=== PATIENT | male | born 1965 | race Caucasian/White ===

== ENCOUNTER 2018-01-24 05:32 | Emergency (ER) | payer SELFPAY ==
[2018-01-24] MEDS ORDERED: ONDANSETRON 4 MG/2 ML VIAL ONE ×2 (05:40→06:08)
[2018-01-24] MEDS ORDERED: NA CHLORIDE 0.9% 250 ML ONE ×2 (05:40→06:21)
[2018-01-24] MEDS ORDERED: NA CHLORIDE 0.9% 1,000 ML ONE ×2 (05:40→06:52)
[2018-01-24] MEDS ORDERED: PANTOPRAZOLE 40 MG INJ ONE (05:40)
[2018-01-24] MEDS ORDERED: VITAMIN K (ADULT) 10 MG/ML ONE (05:41)
[2018-01-24 05:55] LABS: Absolute Lymphocytes (CBC) 1.1 K/uL (0.7-4.9); Absolute Monocytes 0.2 K/uL (0.1-1.3); Absolute Neutrophil 2.4 K/uL (1.8-8.0); Basophils % 0.8 % (0-1.3); Eosinophils % 0.6 % (0-4.4); Hematocrit 27.5 % (39.6-49.0); Lymphocytes % 28.2 % (15.3-44.8); MCH 34.9 pg (27.0-35.0); MCV 101.5 fL (80-100); MPV 8.8 fL (7.6-11.3); Monocytes % 6.1 % (3.3-12.3); RBC Red Blood Cell Count 2.71 M/uL (4.33-5.43)
[2018-01-24] MEDS ORDERED: NA CHLORIDE 0.9% 500 ML ONE (05:57)
[2018-01-24] MEDS ORDERED: OCTREOTIDE ACETATE 500 MCG/ML ONE (05:57)
--- NOTE | 2018-01-24 05:57 | ER ---
Nurse's Notes [facility] Name: Wesley Taylor Age: 52 yrs Sex: Male : 1965 Arrival Date: 01/24/2018 Time: 05:40 Bed 3 Private MD: Diagnosis: Gastrointestinal hemorrhage, unspecified;Alcohol abuse with intoxication;Alcoholic cirrhosis of liver;Hypotension;Anemia, unspecified Presentation: 01/24 05:40 Presenting complaint: EMS states: they were toned out for report of pt vomiting blood bb and bleeding from the rectum pt has hx of cirrhosis and was drinking last night. Transition of care: patient was not received from another setting of care. Onset of symptoms was January 24, 2018. Risk Assessment: Do you want to hurt yourself or someone else? Patient reports no desire to harm self or others. Initial Sepsis Screen: Does the patient meet any 2 criteria? No. Patient's initial sepsis screen is negative. Does the patient have a suspected source of infection? No. Patient's initial sepsis screen is negative. Care prior to arrival: Medication(s) given: Normal saline infusion, 500 mL, IV initiated. 20 GA, antecubital area. 05:40 Method Of Arrival: EMS: [facility] bb 05:40 Acuity: MERNA 2 bb Triage Assessment: 06:18 General: Appears pale. Behavior is cooperative, quiet. ak1 Historical: - Allergies: 05:51 No Known Allergies; bb - PMHx: 05:51 Alcoholism; Cirrhosis; esophageal varices; GI Bleed; bb - Immunization history:: Adult Immunizations unknown. - Social history:: Smoking status: Patient uses alcohol, patient/guardian reports chronic longstanding heavy alcohol consumption. patient/guardian reports recent binge of alcohol consumption. - Family history:: not pertinent. - Ebola Screening: : No symptoms or risks identified at this time. Screenin:14 Abuse screen: Denies threats or abuse. Denies injuries from another. Nutritional ak1 screening: No deficits noted. Tuberculosis screening: No symptoms or risk factors identified. Fall Risk None identified. Assessment: 06:16 General: Appears distressed, Behavior is drowsy. Pain: Complains of pain in abdomen jd3 Quality of pain is described as sharp. Neuro: Level of Consciousness is awake, lethargic, Oriented to person, place, time. Cardiovascular: Heart tones S1 S2 present Capillary refill < 3 seconds Patient's skin is warm and dry. Rhythm is sinus tachycardia. Respiratory: Airway is patent Respiratory effort is even, unlabored, Respiratory pattern is regular, symmetrical, Breath sounds are clear bilaterally. GI: Abdomen is round Reports bloody vomit and stool. : No signs and/or symptoms were reported regarding the genitourinary system. EENT: No signs and/or symptoms were reported regarding the EENT system. Derm: Skin is intact, Skin is dry, Skin is pale, Skin temperature is cool. Musculoskeletal: Circulation, motion, and sensation intact. Range of motion: intact in all extremities. 06:53 Reassessment: Patient appears in no apparent distress at this time. Patient and/or jd3 family updated on plan of care and expected duration. Pain level reassessed. Patient is alert, oriented x 3, equal unlabored respirations, skin warm/dry/pink. Patient states symptoms have improved. Neuro: Level of Consciousness is awake, alert, obeys commands, Oriented to person, place, time, situation. 07:02 Reassessment: Patient appears in no apparent distress at this time. No changes from [facility] previously documented assessment. Patient and/or family updated on plan of care and expected duration. Pain level reassessed. Patient is alert, oriented x 3, equal unlabored respirations, skin warm/dry/pink. report given to EMS. Vital Signs: 05:45 BP 88 / 69; Pulse 109; Resp 16 S; Temp 96(TE); Pulse Ox 98% on R/A; Weight 86.18 kg bb (R); Height 6 ft. 2 in. (187.96 cm) (R); 05:45 BP 92 / 66; Pulse 111; Resp 20; Temp 93.6(C); Pulse Ox 100% on R/A; ak1 05:50 BP 85 / 53; Pulse 107; Resp 16; Temp 95.9(C); Pulse Ox 97% on R/A; ak1 05:55 BP 76 / 48; Pulse 104; Resp 24; Temp 96.6(C); Pulse Ox 100% on R/A; ak1 06:00 BP 70 / 52; Pulse 108; Resp 23; Temp 97.4(C); Pulse Ox 100% on R/A; ak1 06:05 BP 42 / 31; Pulse 109; Resp 17; Temp 97.7(C); Pulse Ox 100% on R/A; ak1 06:10 BP 79 / 54; Pulse 101; Resp 16; Temp 97.8(C); Pulse Ox 97% on R/A; ak1 06:20 BP 79 / 56; Pulse 103; Resp 12; Temp 97.9(C); Pulse Ox 100% ; ak1 06:40 BP 116 / 84; Pulse 117; Resp 20; Temp 97.7(C); Pulse Ox 100% on R/A; ak1 06:51 BP 110 / 68; Pulse 107; Resp 17 S; Temp 97.6(C); Pulse Ox 100% on R/A; jd3 05:45 Body Mass Index 24.39 (86.18 kg, 187.96 cm) bb ED Course: 05:40 Patient arrived in ED. cem 05:40 Ralph Dela Cruz MD is Attending Physician. cem 05:45 Arm band placed on Patient placed in an exam room, on a stretcher, on public health policy analyst, bb on pulse oximetry. EKG completed in triage. Results shown to MD. 05:51 Triage completed. bb 06:12 Assisted provider with central line placement. Set up central line tray. in right ak1 femoral. Line placed by Ralph Dela Cruz MD Dressed with Tegaderm, Blood was collected. Patient tolerated well. Inserted saline lock: 20 gauge in right antecubital area, using aseptic technique. ,using aseptic technique. placed by King Nassar RN Blood collected. 06:15 Dawson cath inserted, using sterile technique, 16 Fr., by senior architect, balloon inflated, to ak1 gravity drainage, urine specimen collected. Patient tolerated well. Inserted saline lock: 20 gauge in left antecubital area, using aseptic technique. ,using aseptic technique. placed by Portia Ryan RN. 06:16 Bob Sheets RN is Primary Nurse. jd3 06:19 X-ray completed. Portable x-ray completed in exam room. Patient tolerated procedure kw well. 06:20 XRAY Chest (1 view) In Process Unspecified. EDMS 06:20 Patient has correct armband on for positive identification. Placed in gown. Bed in low jd3 position. Call light in reach. Side rails up X2. 06:20 professor of surgery on. Pulse ox on. NIBP on. bear hugger applied. ak1 06:43 Chest Abd Pelvis Wo Con In Process Unspecified. EDMS 06:44 CT completed. Patient tolerated procedure well. Patient moved to CT via stretcher. eh Patient moved back from CT. 06:45 Patient transferred, IV remains in place. ak1 Administered Medications: 05:40 Drug: NS 0.9% 1000 ml Route: IV; Rate: 1 bolus; Site: left antecubital; bb 07:03 Follow up: Response: No adverse reaction; IV Status: Completed infusion; IV Intake: jd3 1000ml 05:45 Drug: ProTONIX 8 mg/hr Route: IV; Rate: 25 ml/hr; Site: right antecubital; bb 06:28 Follow up: IV Status: Infusion continued upon transfer bb 05:46 Drug: Zofran 4 mg Route: IVP; Site: right antecubital; bb 06:27 Follow up: Response: No adverse reaction bb 05:46 Drug: ProTONIX 80 mg Route: IVP; Site: right antecubital; bb 06:30 Follow up: Response: No adverse reaction bb 05:54 Drug: Vitamin K1 10 mg Route: Sub-Q; Site: right upper arm; bb 06:26 Follow up: Response: No adverse reaction bb 06:00 Drug: SandoSTATIN 100 mcg Route: IV; Rate: per protocol; Site: right antecubital; ak1 06:29 Follow up: IV Status: Infusion continued upon transfer bb 06:00 Drug: SandoSTATIN 50 mcg Route: IV; Rate: per protocol; Site: right antecubital; ak1 06:03 Follow up: IV Status: Completed infusion bb 06:00 Drug: Rocephin - (cefTRIAXone) 1 grams Route: IVPB; Infused Over: 30 mins; Site: left ak1 antecubital; 06:08 Follow up: IV Status: Completed infusion; IV Intake: 10ml bb 06:07 Drug: Zofran 4 mg Route: IVP; Site: right antecubital; ak1 06:30 Follow up: Response: Nausea is decreased bb 06:09 Drug: Thiamine 100 mg Route: IV; Rate: bolus; Site: left antecubital; ak1 06:12 Follow up: IV Status: Completed infusion; IV Intake: 100ml bb 06:25 Drug: Benadryl 25 mg {Note: right femoral central line.} Route: IVP; Site: Other; bb 06:32 Follow up: Response: No adverse reaction bb 06:25 Drug: Tylenol Suppository 650 mg Route: OR; bb 06:31 Follow up: Response: No adverse reaction bb 06:48 Drug: NS 0.9% 1000 ml {Note: right femoral central line.} Route: IV; Rate: 125 ml/hr; bb Site: Other; 06:48 Follow up: IV Status: Infusion continued upon transfer bb 06:48 Follow up: IV Status: Infusion continued upon transfer ak1 Intake: 06:08 IV: 10ml; Total: 10ml. bb 06:12 IV: 100ml; Total: 110ml. bb 07:03 IV: 1000ml; Total: 1110ml. jd3 Outcome: 05:56 ER care complete, transfer ordered by MD. priest 06:46 Transferred by ground EMS to [facility], Transfer form completed. ak1 X-rays sent w/ patient. Note: Report called to Liz Oakes RN [place] [id number] Bed 1 06:46 critical 06:46 Instructed on the need for transfer. 07:04 Patient left the ED. jd3 Signatures: Dispatcher [employer] EDMS Ralph Dela Cruz MD MD cha Hagler, Ervin eh Ballard, Brenda, RN RN bb Lili Berman Amber, RN RN ak1 Bob Sheets RN RN jd3 Corrections: (The following items were deleted from the chart) 06:54 06:53 Reassessment: Patient appears in no apparent distress at this time. Patient jd3 states symptoms have improved. jd3
--- NOTE | 2018-01-24 05:57 | EDPHYS ---
Physician Documentation [facility] Name: Wesley Taylor Age: 52 yrs Sex: Male : 1965 Arrival Date: 01/24/2018 Time: 05:40 Bed 3 Private MD: ED Physician Ralph Dela Cruz HPI: 01/24 05:47 This 52 yrs old Male presents to ER via Unassigned with complaints of upper cem gi bleed, alcoholic and cirrhosis. 05:47 The patient presents with abdominal pain. Onset: The symptoms/episode began/occurred cem this morning. The patient presents to the emergency department vomiting blood, a large amount, with rectal bleeding, brb without bm. Onset: The symptoms/episode began/occurred just prior to arrival. Abdominal pain: located in the right upper quadrant, left upper quadrant, right lower quadrant and left lower quadrant. Modifying factors: The symptoms are alleviated by nothing, the symptoms are aggravated by alcohol. hypotensive, vomiting red blood. Associated signs and symptoms: Pertinent positives: dizziness at rest, near-syncope, vomiting. Onset: The symptoms/episode began/occurred. Historical: - Allergies: 05:51 No Known Allergies; bb - PMHx: 05:51 Alcoholism; Cirrhosis; esophageal varices; GI Bleed; bb - Immunization history:: Adult Immunizations unknown. - Social history:: Smoking status: Patient uses alcohol, patient/guardian reports chronic longstanding heavy alcohol consumption. patient/guardian reports recent binge of alcohol consumption. - Family history:: not pertinent. - Ebola Screening: : No symptoms or risks identified at this time. ROS: 05:47 Eyes: Negative for injury, pain, redness, and discharge, ENT: Negative for injury, cem pain, and discharge, Neck: Negative for injury, pain, and swelling, Respiratory: Negative for shortness of breath, cough, wheezing, and pleuritic chest pain, Back: Negative for injury and pain, : Negative for injury, bleeding, discharge, and swelling, MS/Extremity: Negative for injury and deformity, Neuro: Negative for headache, weakness, numbness, tingling, and seizure, Psych: Negative for depression, anxiety, suicide ideation, homicidal ideation, and hallucinations, Allergy/Immunology: Negative for hives, rash, and allergies, Endocrine: Negative for neck swelling, polydipsia, polyuria, polyphagia, and marked weight changes, Hematologic/Lymphatic: Negative for swollen nodes, abnormal bleeding, and unusual bruising. 05:47 Constitutional: Positive for fatigue, malaise. 05:47 Eyes: Positive for sunken appearance. 05:47 ENT: 05:47 Cardiovascular: Positive for palpitations. 05:47 Respiratory: Positive for cough, shortness of breath. 05:47 Abdomen/GI: Positive for abdominal pain, nausea and vomiting, nausea, vomiting, abdominal cramps, rectal bleeding, red blood per rectum. Exam: 05:47 Head/Face: Normocephalic, atraumatic. ENT: Nares patent. No nasal discharge, no cem septal abnormalities noted. Tympanic membranes are normal and external auditory canals are clear. Oropharynx with no redness, swelling, or masses, exudates, or evidence of obstruction, uvula midline. Mucous membranes moist. Neck: Trachea midline, no thyromegaly or masses palpated, and no cervical lymphadenopathy. Supple, full range of motion without nuchal rigidity, or vertebral point tenderness. No Meningismus. Chest/axilla: Normal chest wall appearance and motion. Nontender with no deformity. No lesions are appreciated. Back: No spinal tenderness. No costovertebral tenderness. Full range of motion. MS/ Extremity: Pulses equal, no cyanosis. Neurovascular intact. Full, normal range of motion. Neuro: Awake and alert, GCS 15, oriented to person, place, time, and situation. Cranial nerves II-XII grossly intact. Motor strength 5/5 in all extremities. Sensory grossly intact. Cerebellar exam normal. Normal gait. Psych: Awake, alert, with orientation to person, place and time. Behavior, mood, and affect are within normal limits. 05:47 Constitutional: The patient appears lethargic, in obvious distress, moderately distressed. 05:47 Eyes: Conjunctiva: pale. 05:47 Cardiovascular: Rate: tachycardic, Rhythm: regular, Pulses: Pulses are 4+ in bilateral radial, brachial, femoral, popliteal, posterior tibial and and dorsalis pedis arteries.. Heart sounds: normal, Edema: is not appreciated, JVD: is not appreciated. 05:47 Abdomen/GI: Inspection: abdomen appears normal, Bowel sounds: normal, Palpation: mild abdominal tenderness, in all quadrants. 05:47 Skin: Appearance: Color: pale. Vital Signs: 05:45 BP 88 / 69; Pulse 109; Resp 16 S; Temp 96(TE); Pulse Ox 98% on R/A; Weight 86.18 kg bb (R); Height 6 ft. 2 in. (187.96 cm) (R); 05:45 BP 92 / 66; Pulse 111; Resp 20; Temp 93.6(C); Pulse Ox 100% on R/A; ak1 05:50 BP 85 / 53; Pulse 107; Resp 16; Temp 95.9(C); Pulse Ox 97% on R/A; ak1 05:55 BP 76 / 48; Pulse 104; Resp 24; Temp 96.6(C); Pulse Ox 100% on R/A; ak1 06:00 BP 70 / 52; Pulse 108; Resp 23; Temp 97.4(C); Pulse Ox 100% on R/A; ak1 06:05 BP 42 / 31; Pulse 109; Resp 17; Temp 97.7(C); Pulse Ox 100% on R/A; ak1 06:10 BP 79 / 54; Pulse 101; Resp 16; Temp 97.8(C); Pulse Ox 97% on R/A; ak1 06:20 BP 79 / 56; Pulse 103; Resp 12; Temp 97.9(C); Pulse Ox 100% ; ak1 06:40 BP 116 / 84; Pulse 117; Resp 20; Temp 97.7(C); Pulse Ox 100% on R/A; ak1 06:51 BP 110 / 68; Pulse 107; Resp 17 S; Temp 97.6(C); Pulse Ox 100% on R/A; jd3 05:45 Body Mass Index 24.39 (86.18 kg, 187.96 cm) Procedures: 06:20 Central Line: the site was prepped with Betadine, a triple lumen catheter was inserted, cem in the right in 1 attempts. placement was verified, by blood return, the site was dressed with using sterile technique, the patient tolerated the procedure, well. MDM: 05:40 Patient medically screened. [facility] 05:47 Data reviewed: vital signs, nurses notes, lab test result(s), EKG, radiologic studies, [facility] CT scan, plain films. 01/24 05:46 Order name: Basic Metabolic Panel [facility] 01/24 05:46 Order name: CBC with Diff; Complete Time: 06:13 [facility] 01/24 05:46 Order name: Ckmb; Complete Time: 06:13 [facility] 01/24 05:46 Order name: CPK; Complete Time: 06:13 [facility] 01/24 05:46 Order name: LFT's; Complete Time: 06:13 [facility] 01/24 05:46 Order name: Magnesium; Complete Time: 06:13 [facility] 01/24 05:46 Order name: NT PRO-BNP; Complete Time: 06:13 [facility] 01/24 05:46 Order name: Troponin (emerg Dept Use Only); Complete Time: 06:13 [facility] 01/24 05:46 Order name: Lipase; Complete Time: 06:13 [facility] 01/24 05:46 Order name: AMMONIA [facility] 01/24 05:46 Order name: Type And Screen [facility] 01/24 05:46 Order name: XRAY Chest (1 view) [facility] 01/24 05:46 Order name: Basic Metabolic Panel; Complete Time: 06:13 [facility] 01/24 05:48 Order name: ETOH Level; Complete Time: 06:19 sd 01/24 05:48 Order name: UDS; Complete Time: 06:13 sd 01/24 06:03 Order name: Urine Dipstick--Ancillary (enter results) sd 01/24 06:32 Order name: Chest Abd Pelvis Wo Con [facility] 01/24 05:46 Order name: EKG; Complete Time: 05:47 [facility] 01/24 05:46 Order name: Cardiac monitoring; Complete Time: 06:32 [facility] 01/24 05:46 Order name: EKG - Nurse/Tech; Complete Time: 06:11 [facility] 01/24 05:46 Order name: IV Saline Lock; Complete Time: 06:11 [facility] 01/24 05:46 Order name: Labs collected and sent; Complete Time: 06:11 [facility] 01/24 05:46 Order name: O2 Per Protocol; Complete Time: 06:11 [facility] 01/24 05:46 Order name: O2 Sat Monitoring; Complete Time: 06:11 [facility] 01/24 05:46 Order name: Urine Dipstick-Ancillary (obtain specimen); Complete Time: 06:11 [facility] 01/24 05:46 Order name: Transfuse; Complete Time: 06:11 [facility] 01/24 05:46 Order name: NPO; Complete Time: 06:10 [facility] Administered Medications: 05:40 Drug: NS 0.9% 1000 ml Route: IV; Rate: 1 bolus; Site: left antecubital; bb 07:03 Follow up: Response: No adverse reaction; IV Status: Completed infusion; IV Intake: jd3 1000ml 05:45 Drug: ProTONIX 8 mg/hr Route: IV; Rate: 25 ml/hr; Site: right antecubital; bb 06:28 Follow up: IV Status: Infusion continued upon transfer bb 05:46 Drug: Zofran 4 mg Route: IVP; Site: right antecubital; bb 06:27 Follow up: Response: No adverse reaction bb 05:46 Drug: ProTONIX 80 mg Route: IVP; Site: right antecubital; bb 06:30 Follow up: Response: No adverse reaction bb 05:54 Drug: Vitamin K1 10 mg Route: Sub-Q; Site: right upper arm; bb 06:26 Follow up: Response: No adverse reaction bb 06:00 Drug: SandoSTATIN 100 mcg Route: IV; Rate: per protocol; Site: right antecubital; ak1 06:29 Follow up: IV Status: Infusion continued upon transfer bb 06:00 Drug: SandoSTATIN 50 mcg Route: IV; Rate: per protocol; Site: right antecubital; ak1 06:03 Follow up: IV Status: Completed infusion bb 06:00 Drug: Rocephin - (cefTRIAXone) 1 grams Route: IVPB; Infused Over: 30 mins; Site: left ak1 antecubital; 06:08 Follow up: IV Status: Completed infusion; IV Intake: 10ml bb 06:07 Drug: Zofran 4 mg Route: IVP; Site: right antecubital; ak1 06:30 Follow up: Response: Nausea is decreased bb 06:09 Drug: Thiamine 100 mg Route: IV; Rate: bolus; Site: left antecubital; ak1 06:12 Follow up: IV Status: Completed infusion; IV Intake: 100ml bb 06:25 Drug: Benadryl 25 mg {Note: right femoral central line.} Route: IVP; Site: Other; bb 06:32 Follow up: Response: No adverse reaction bb 06:25 Drug: Tylenol Suppository 650 mg Route: NE; bb 06:31 Follow up: Response: No adverse reaction bb 06:48 Drug: NS 0.9% 1000 ml {Note: right femoral central line.} Route: IV; Rate: 125 ml/hr; gume Site: Other; 06:48 Follow up: IV Status: Infusion continued upon transfer bb 06:48 Follow up: IV Status: Infusion continued upon transfer ak1 Disposition: 01/24/18 05:56 Transfer ordered to [facility]. Diagnosis are Gastrointestinal hemorrhage, unspecified, Alcohol abuse with intoxication, Alcoholic cirrhosis of liver, Hypotension, Anemia, unspecified. - Reason for transfer: Higher level of care. - Accepting physician is to icu, varices , bleeding , alcoholic. - Condition is Critical. - Problem is new. - Symptoms have improved. Signatures: Dispatcher [employer] EDMS Ralph Dela Cruz MD MD cha Ballard, Brenda RN RN Liz Hopkins RN RN ak1 Bob Sheets RN RN jd3 Corrections: (The following items were deleted from the chart) 06:32 05:52 Chest Abdomen Pelvis W Con+CT.RAD.BRZ ordered. [facility] EDAK 07:04 05:56 01/24/2018 05:56 Transfer ordered to [facility]. Diagnosis is jd3 Gastrointestinal hemorrhage, unspecified; Alcohol abuse with intoxication; Alcoholic cirrhosis of liver; Hypotension; Anemia, unspecified. Reason for transfer: Higher level of care. Accepting physician is to icu, varices , bleeding , alcoholic. Condition is Critical. Problem is new. Symptoms have improved. cem
[2018-01-24] MEDS ORDERED: THIAMINE 200 MG/2 ML INJ ONE (06:03)
[2018-01-24] MEDS ORDERED: CEFTRIAXONE/SWI 1gm 1 GM/10 ML SYR ONE (06:04)
[2018-01-24 06:12] LABS: Barbiturates NEGATIVE (NEGATIVE); Benzodiazepines NEGATIVE (NEGATIVE); Cocaine NEGATIVE (NEGATIVE); METHAMPHETAM NEGATIVE (NEGATIVE); Methadone NEGATIVE (NEGATIVE); Opiates NEGATIVE (NEGATIVE); Phencyclidine NEGATIVE (NEGATIVE); THC Cannibis NEGATIVE (NEGATIVE)
[2018-01-24 06:13] LABS: Bilirubin Direct 1.7 mg/dL (0-0.2); Bilirubin Total 2.3 mg/dL (0.2-1.0); Magnesium 1.9 mg/dL (1.8-2.4); Potassium 4.1 mmol/L (3.5-5.1); Protein, Total 5.7 g/dL (6.4-8.2); Troponin (Emerg Dept Use Only) 0.03 ng/mL (0.0-0.045)
[2018-01-24] MEDS ORDERED: ACETAMINOPHEN 650MG/RECT SUPP PR ONE (06:20)
[2018-01-24] MEDS ORDERED: DIPHENHYDRAMINE 50 MG/ML VIAL ONE (06:25)
[2018-01-24 08:42] LABS: Urine Blood NEGATIVE (NEG); Urine Glucose NEGATIVE (NEG); Urine Protein NEGATIVE (NEG); Urine Specific Gravity 1.025 (1.005-1.030); Urine pH 5.5 (5.0-7.0)
--- NOTE | 2018-01-24 09:12 | RAD REPORT ---
EXAM DESCRIPTION: CT - Chest Abd Pelvis Wo Con - 01/24/2018 6:43 am CLINICAL HISTORY: Hematochezia/hemoptysis COMPARISON: CT abdomen 2017 TECHNIQUE: Computed axial tomography of the chest, abdomen and pelvis was obtained. Oral contrast wa s not given. IV contrast was not requested. All CT scans are performed using dose optimization technique as appropriate and may include automated exposure control or mA/KV adjustment according to patient size. FINDINGS: The evaluation of mediastinum, bowel, shakir, vessels and solid organs is limited secondary to the lack of IV contrast administration No mediastinal or hilar lymphadenopathy is seen. A pleural effusion is not present. A pericardial effusion is not seen. The lungs are clear. The wall of the distal esophagus is thickened. Paraesophageal varices are present. A cirrhotic liver is present with fatty infiltration. , The adrenals, spleen and kidneys appear unremarkable. Mild stranding is present within the peripancreatic fat. The pancreas is normal size There is no evidence of diverticulitis. The appendix is normal. A Dawson catheter is present within the bladder. IMPRESSION: Thickening of the wall of the distal esophagus may indicate esophagitis Esophageal varices Cirrhosis with fatty infiltration of the liver Mild stranding within the peripancreatic fat may indicate a mild pancreatitis
--- NOTE | 2018-01-24 09:20 | RAD REPORT ---
EXAM DESCRIPTION: Jame Single View01/24/2018 6:22 am CLINICAL HISTORY: Chest pain COMPARISON: 2017 FINDINGS: The lungs appear clear of acute infiltrate. The heart is normal size IMPRESSION: No acute abnormalities displayed
--- NOTE | 2018-01-24 11:04 | EKG ---
Test Date: 2018-01-24 Test Time: 05:35:24 Culinary Director: MAGY MEASUREMENT RESULTS: Intervals: Rate: 107 LA: 134 QRSD: 98 QT: 346 QTc: 461 [place]: P: 70 LA: 134 QRS: 66 T: 56 INTERPRETIVE STATEMENTS: Sinus tachycardia Possible Left atrial enlargement Borderline ECG Compared to ECG 02/15/2017 09:32:36 No significant changes Electronically Signed On 01-24-18 11:03:34 CDT by Simone Garcia
== END 2018-01-24 07:04 | disposition short-term general hospital (02) ==
LOC: ER 05:32
PROC: 06HM33Z Insertion of Infusion Device into Right Femoral Vein, Percutaneous Approach (ICD-10-PCS; principal; 2018-01-24)
PROC: 30233N1 Transfusion of Nonautologous Red Blood Cells into Peripheral Vein, Percutaneous Approach (ICD-10-PCS; 2018-01-24)
DX: K70.30 Alcoholic cirrhosis of liver without ascites (principal); F10.229 Alcohol dependence with intoxication, unspecified; I95.9 Hypotension, unspecified; D64.9 Anemia, unspecified
CPT/HCPCS: 36415; 51702; 71045; 71250; 74176; 80048; 80076; 80307; 80320; 81003; 82140; 82550; 82553; 83690; 83735; 83880; 84484; 85025; 86850; 86870; 86900; 86901; 93005; 96361; 96365; 96368; 96372; 96375; 99285; C9113; J0696; J2354; J2405; J3411; J3430; J7030

== ENCOUNTER 2018-12-31 11:37 | Emergency (ER) | payer OTHER, SELFPAY ==
--- OUTSIDE RECORDS SUMMARY | 2018-12-31 11:47 | XMS REPORT ---
:1965 Author Organization [facility] Address [address] [place] [id number] Care Team Providers Name Role Phone MICK RAHMAN Unavailable Unavailable Problems This patient has no known problems. Allergies, Adverse Reactions, Alerts This patient has no known allergies or adverse reactions. Medications This patient has no known medications. Results Test Description Test Time Test Comments Text Results Atomic Results Result Comments MISCELLANEOUS LAB ORDER 2018-02-07 10:33:00 Test Item Value Reference Range Comments SCAN RESULT (test qxnz=[id number]) CBC W/PLT COUNT & AUTO [id number] 09:42:00 Test Item Value Reference Range Comments WHITE BLOOD CELL COUNT (BEAKER) (test wwrp=979) 21.3 K/ L 3.5-10.5 RED BLOOD CELL COUNT (BEAKER) (test loin=963) 2.38 M/ L 4.63-6.08 HEMOGLOBIN (BEAKER) (test chlx=350) 7.7 GM/DL 13.7-17.5 HEMATOCRIT (BEAKER) (test zqbj=252) 24.1 % 40.1-51.0 MEAN CORPUSCULAR VOLUME (BEAKER) (test ojdn=109) 101.3 fL 79.0-92.2 MEAN CORPUSCULAR HEMOGLOBIN (BEAKER) (test 32.4 pg 25.7-32.2 tqtn=700) MEAN CORPUSCULAR HEMOGLOBIN CONC (BEAKER) (test 32.0 GM/DL 32.3-36.5 uaxl=553) RED CELL DISTRIBUTION WIDTH (BEAKER) (test 26.3 % 11.6-14.4 nxlj=447) PLATELET COUNT (BEAKER) (test dwsw=261) 62 K/CU MM 150-450 MEAN PLATELET VOLUME (BEAKER) (test qnvu=042) 10.8 fL 9.4-12.4 NUCLEATED RED BLOOD CELLS (BEAKER) (test 1 /100 WBC 0-0 ujvp=183) (CELLAVISION MANUAL DIFF)2018-02-07 09:42:00 Test Item Value Reference Range Comments NEUTROPHILS - REL (CELLAVISION)(BEAKER) (test 90 % lwmw=0755) LYMPHOCYTES - REL (CELLAVISION)(BEAKER) (test 3 % wpvs=2510) MONOCYTES - REL (CELLAVISION)(BEAKER) (test 5 % qbcr=3905) METAMYELOCYTES - REL (CELLAVISION)(BEAKER) (test 1 % 0-0 wovp=6068) BANDS - REL (CELLAVISION)(BEAKER) (test 1 % 0-10 cmlm=0522) NEUTROPHILS - ABS (CELLAVISION)(BEAKER) (test 19.17 K/ul 1.78-5.38 wcku=8207) LYMPHOCYTES - ABS (CELLAVISION)(BEAKER) (test 0.64 K/ul 1.32-3.57 tomr=7818) MONOCYTES - ABS (CELLAVISION)(BEAKER) (test 1.07 K/uL 0.30-0.82 yjzv=9299) METAMYELOCYTES - ABS (CELLAVISION)(BEAKER) (test 0.21 K/uL 0.00-0.00 rumd=4936) BANDS - ABS (CELLAVISION)(BEAKER) (test 0.21 K/uL 0.00-0.80 ocja=5314) TOTAL COUNTED (BEAKER) (test yzfa=9691) 100 MANUAL NRBC PER 100 CELLS (BEAKER) (test 3 /100 WBC 0-0 tkvw=1740) WBC MORPHOLOGY (BEAKER) (test qxqh=686) Normal PLT MORPHOLOGY (BEAKER) (test mbmm=998) Normal POLYCHROMATOPHILLIC RBCS(BEAKER) (test rddh=623) 2+ moderate HYPOCHROMIA (BEAKER) (test btbc=220) 1+ few MEG CELLS (BEAKER) (test lmhm=521) 2+ moderate BASOPHILIC STIPPLING (BEAKER) (test zafz=558) Present ARTIFACT (CELLAVISION)(BEAKER) (test gkzm=5556) Present PLATELET CONCENTRATION (CELLAVISION)(BEAKER) Decreased (test tizb=5780) Received comment: User comments: Slide comments:HEPATIC FUNCTION [id number] 08:52:00 Test Item Value Reference Range Comments TOTAL PROTEIN (BEAKER) (test 5.0 gm/dL 6.0-8.3 Specimen slightly hemolyzed zinp=607) ALBUMIN (BEAKER) (test 1.7 g/dL 3.5-5.0 Specimen slightly hemolyzed cetd=3574) BILIRUBIN TOTAL (BEAKER) (test 14.7 mg/dL 0.2-1.2 Specimen slightly hemolyzed ahth=828) BILIRUBIN DIRECT (BEAKER) 9.5 mg/dL 0.1-0.5 Specimen slightly hemolyzed (test gdbq=260) ALKALINE PHOSPHATASE (BEAKER) 240 U/L 40-150 (test ichk=144) AST (SGOT) (BEAKER) (test 220 U/L 5-34 Specimen slightly hemolyzed tpag=015) ALT (SGPT) (BEAKER) (test 178 U/L 6-55 Specimen slightly hemolyzed blla=893) Specimen markedly ictericPOCT-GLUCOSE [id number] 08:27:00 Test Item Value Reference Range Comments POC-GLUCOSE METER (BEAKER) 157 mg/dL 70-110 TESTED AT [address] (test kdmp=2017) [facility] [address] BASIC METABOLIC [id number] 06:53:00 Test Item Value Reference Range Comments SODIUM (BEAKER) (test 132 meq/L 136-145 tvwu=047) POTASSIUM (BEAKER) (test 3.7 meq/L 3.5-5.1 wchm=995) CHLORIDE (BEAKER) (test 104 meq/L 98-107 yixi=153) CO2 (BEAKER) (test 24 meq/L 22-29 evcc=272) BLOOD UREA NITROGEN 25 mg/dL 7-21 (BEAKER) (test xkun=965) CREATININE (BEAKER) (test 0.86 mg/dL 0.57-1.25 mnlu=107) GLUCOSE RANDOM (BEAKER) 100 mg/dL 70-105 (test vags=492) CALCIUM (BEAKER) (test 7.7 mg/dL 8.4-10.2 wnpa=751) EGFR (BEAKER) (test 94 mL/min/1.73 sq m ESTIMATED GFR IS NOT joki=8474) ACCURATE CREATININE CLEARANCE IN PREDICTING GLOMERULAR FILTRATION RATE. ESTIMATED GFR IS NOT APPLICABLE FOR DIALYSIS PATIENTS. Specimen markedly [id number] 06:34:00 Test Item Value Reference Range Comments MAGNESIUM (BEAKER) (test krun=613) 1.4 mg/dL 1.6-2.6 PROTHROMBIN TIME/[id number] 06:32:00 Test Item Value Reference Range Comments PROTIME (BEAKER) (test yoss=212) 24.6 seconds 11.7-14.7 INR (BEAKER) (test oyfd=654) 2.2 <=5.9 RECOMMENDED COUMADIN/WARFARIN INR THERAPY RANGESSTANDARD DOSE: 2.0 - 3.0 Includes: PROPHYLAXIS forvenous thrombosis, systemic embolization; TREATMENT for venous thrombosis and/or pulmonary embolus.HIGH RISK: Target INR is 2.5-3.5 for patients with mechanical heart valves.POCT-GLUCOSE [id number] 22:37:00 Test Item Value Reference Range Comments POC-GLUCOSE METER (BEAKER) 158 mg/dL 70-110 TESTED AT [address] (test ngol=9816) [place] [address] POCT-GLUCOSE [id number] 17:38:00 Test Item Value Reference Range Comments POC-GLUCOSE METER (BEAKER) 176 mg/dL 70-110 TESTED AT [address] (test ykoi=4030) [place] [address] POCT-GLUCOSE [id number] 13:55:00 Test Item Value Reference Range Comments POC-GLUCOSE METER (BEAKER) 144 mg/dL 70-110 TESTED AT [address] (test egfl=2659) [place] [address] RAD, CHEST, 1 VIEW, NON [id number] 11:35:00Reason for exam:->shortness of breathShould this be performed at the bedside?->YesFINAL REPORT CLINICAL HISTORY: shortness of breath TECHNIQUE: 1 view of the chest. COMPARISON: 02/03/2018 IMPRESSION: There is decreased left lung base consolidation and a decreased small left pleural effusion. The right lung is free of infiltrates or significant effusions. The cardiomediastinal silhouette is within normal limits for size. Signed: Sona Sainz MDReport Verified Date/ Time: 02/06/2018 11:35:31 Reading Location: [facility] Radiology Reading Room STOOL CULTURE + SHIGA [id number] 10:55:00 Test Item Value Reference Range Comments CULTURE (BEAKER) (test No Salmonella, Shigella or xmzm=6174) Campylobacter isolated POCT-GLUCOSE [id number] 07:40:00 Test Item Value Reference Range Comments POC-GLUCOSE METER (BEAKER) 136 mg/dL 70-110 TESTED AT [facility] [address] [facility] (test lbxp=2673) [facility] [address] CBC W/PLT COUNT & AUTO [id number] 07:37:00 Test Item Value Reference Range Comments WHITE BLOOD CELL COUNT (BEAKER) (test frrs=541) 22.5 K/ L 3.5-10.5 RED BLOOD CELL COUNT (BEAKER) (test ekur=491) 2.13 M/ L 4.63-6.08 HEMOGLOBIN (BEAKER) (test snui=370) 6.9 GM/DL 13.7-17.5 HEMATOCRIT (BEAKER) (test wggu=981) 21.6 % 40.1-51.0 MEAN CORPUSCULAR VOLUME (BEAKER) (test pwgg=885) 101.4 fL 79.0-92.2 MEAN CORPUSCULAR HEMOGLOBIN (BEAKER) (test 32.4 pg 25.7-32.2 egro=751) MEAN CORPUSCULAR HEMOGLOBIN CONC (BEAKER) (test 31.9 GM/DL 32.3-36.5 jwyj=421) RED CELL DISTRIBUTION WIDTH (BEAKER) (test 26.5 % 11.6-14.4 zhnw=555) PLATELET COUNT (BEAKER) (test xmkw=229) 64 K/CU MM 150-450 MEAN PLATELET VOLUME (BEAKER) (test alcj=482) 11.6 fL 9.4-12.4 NUCLEATED RED BLOOD CELLS (BEAKER) (test 0 /100 WBC 0-0 ccyp=908) (CELLAVISION MANUAL DIFF)2018-02-06 07:37:00 Test Item Value Reference Range Comments NEUTROPHILS - REL (CELLAVISION)(BEAKER) (test 88 % lbyg=1097) LYMPHOCYTES - REL (CELLAVISION)(BEAKER) (test 2 % xbcb=5607) MONOCYTES - REL (CELLAVISION)(BEAKER) (test 5 % juqh=0421) MYELOCYTES - REL (CELLAVISION)(BEAKER) (test 5 % 0-0 jwrk=1496) NEUTROPHILS - ABS (CELLAVISION)(BEAKER) (test 19.80 K/ul 1.78-5.38 hsmo=7584) LYMPHOCYTES - ABS (CELLAVISION)(BEAKER) (test 0.45 K/ul 1.32-3.57 gedj=5120) MONOCYTES - ABS (CELLAVISION)(BEAKER) (test 1.13 K/uL 0.30-0.82 ptkn=5687) MYELOCYTES-ABS (CELLAVISION)(BEAKER) (test 1.13 K/uL 0.00-0.00 ulgs=1359) TOTAL COUNTED (BEAKER) (test whqt=2835) 100 SMUDGE CELLS (BEAKER) (test mzpn=6513) Present GIANT PLATELETS (BEAKER) (test mhjx=287) Present POLYCHROMATOPHILLIC RBCS(BEAKER) (test prve=186) 1+ few ANISOCYTOSIS (BEAKER) (test lcvy=387) 3+ many MACROCYTES (BEAKER) (test wdpu=234) 3+ many POIKILOCYTES (BEAKER) (test jndz=642) 2+ moderate TARGET CELLS (BEAKER) (test vcsp=774) 1+ few MEG CELLS (BEAKER) (test fgtg=871) 2+ moderate BASOPHILIC STIPPLING (BEAKER) (test tthy=235) Present PLATELET CONCENTRATION (CELLAVISION)(BEAKER) Decreased (test cprr=5553) Received comment: User comments: Slide comments:BLOOD [id number] 06:00:00 Test Item Value Reference Range Comments CULTURE (BEAKER) (test xndv=8199) No growth in 5 days BLOOD [id number] 06:00:00 Test Item Value Reference Range Comments CULTURE (BEAKER) (test mnnv=0941) No growth in 5 days COMPREHENSIVE METABOLIC [id number] 05:01:00 Test Item Value Reference Range Comments TOTAL PROTEIN (BEAKER) 4.9 gm/dL 6.0-8.3 (test zlei=211) ALBUMIN (BEAKER) (test 1.7 g/dL 3.5-5.0 alrl=3225) ALKALINE PHOSPHATASE 242 U/L 40-150 (BEAKER) (test ksis=580) BILIRUBIN TOTAL (BEAKER) 14.5 mg/dL 0.2-1.2 (test icyz=943) SODIUM (BEAKER) (test 134 meq/L 136-145 lxfx=960) POTASSIUM (BEAKER) (test 3.7 meq/L 3.5-5.1 vjtc=227) CHLORIDE (BEAKER) (test 104 meq/L 98-107 kxfm=733) CO2 (BEAKER) (test 24 meq/L 22-29 ivul=415) BLOOD UREA NITROGEN 33 mg/dL 7-21 (BEAKER) (test svhn=854) CREATININE (BEAKER) (test 0.94 mg/dL 0.57-1.25 xsbb=212) GLUCOSE RANDOM (BEAKER) 125 mg/dL 70-105 (test atbg=820) CALCIUM (BEAKER) (test 7.6 mg/dL 8.4-10.2 lrtz=698) AST (SGOT) (BEAKER) (test 202 U/L 5-34 hull=020) ALT (SGPT) (BEAKER) (test 172 U/L 6-55 rfvh=513) EGFR (BEAKER) (test 85 mL/min/1.73 sq m ESTIMATED GFR IS NOT xyzk=4946) ACCURATE CREATININE CLEARANCE IN PREDICTING GLOMERULAR FILTRATION RATE. ESTIMATED GFR IS NOT APPLICABLE FOR DIALYSIS PATIENTS. Specimen markedly [id number] 04:57:00 Test Item Value Reference Range Comments PHOSPHORUS (BEAKER) (test qjtw=532) 2.4 mg/dL 2.3-4.7 [id number] 04:57:00 Test Item Value Reference Range Comments MAGNESIUM (BEAKER) (test kxiv=166) 1.4 mg/dL 1.6-2.6 CALCIUM, [id number] 04:48:00 Test Item Value Reference Range Comments CALCIUM IONIZED (BEAKER) (test whtm=210) 1.04 mmol/L 1.12-1.27 PH, BLOOD (BEAKER) (test wbln=5855) 7.49 PROTHROMBIN [id number] 04:48:00 Test Item Value Reference Range Comments PROTIME (BEAKER) (test oxae=405) 25.3 seconds 11.7-14.7 INR (BEAKER) (test cloj=082) 2.3 <=5.9 RECOMMENDED COUMADIN/WARFARIN INR THERAPY RANGESSTANDARD DOSE: 2.0 - 3.0 Includes: PROPHYLAXIS forvenous thrombosis, systemic embolization; TREATMENT for venous thrombosis and/or pulmonary embolus.HIGH RISK: Target INR is 2.5-3.5 for patients with mechanical heart valves.POCT-GLUCOSE [id number] 22:46:00 Test Item Value Reference Range Comments POC-GLUCOSE METER (BEAKER) 152 mg/dL 70-110 TESTED AT [address] (test tskq=3064) [place] [address] POCT-GLUCOSE [id number] 18:27:00 Test Item Value Reference Range Comments POC-GLUCOSE METER (BEAKER) 159 mg/dL 70-110 TESTED AT [address] (test mops=0628) [place] [address] STOOL PATH [id number] 16:32:00 Test Item Value Reference Range Comments PATHOGEN EXAM CHARGED (BEAKER) (test opbh=6934) Done SHIGA TOXIN [id number] 16:08:00 Test Item Value Reference Range Comments SHIGA TOXIN 1 (BEAKER) (test eodk=2660) Not detected Not detected SHIGA TOXIN 2 (BEAKER) (test uknq=0146) Not detected Not detected POCT-GLUCOSE [id number] 07:39:00 Test Item Value Reference Range Comments POC-GLUCOSE METER (BEAKER) 138 mg/dL 70-110 TESTED AT [address] (test adwc=8384) [place] [address] COMPREHENSIVE METABOLIC [id number] 05:29:00 Test Item Value Reference Range Comments TOTAL PROTEIN (BEAKER) 5.2 gm/dL 6.0-8.3 (test mjcj=632) ALBUMIN (BEAKER) (test 1.7 g/dL 3.5-5.0 rlrr=3641) ALKALINE PHOSPHATASE 259 U/L 40-150 (BEAKER) (test wggg=711) BILIRUBIN TOTAL (BEAKER) 14.2 mg/dL 0.2-1.2 (test jdyi=872) SODIUM (BEAKER) (test 135 meq/L 136-145 tqby=277) POTASSIUM (BEAKER) (test 3.8 meq/L 3.5-5.1 skca=329) CHLORIDE (BEAKER) (test 105 meq/L 98-107 qjwb=850) CO2 (BEAKER) (test 25 meq/L 22-29 floa=471) BLOOD UREA NITROGEN 37 mg/dL 7-21 (BEAKER) (test mrnf=088) CREATININE (BEAKER) (test 1.10 mg/dL 0.57-1.25 whmt=518) GLUCOSE RANDOM (BEAKER) 136 mg/dL 70-105 (test zvjj=906) CALCIUM (BEAKER) (test 7.6 mg/dL 8.4-10.2 gbgv=471) AST (SGOT) (BEAKER) (test 191 U/L 5-34 rkds=900) ALT (SGPT) (BEAKER) (test 164 U/L 6-55 kkci=633) EGFR (BEAKER) (test 71 mL/min/1.73 sq m ESTIMATED GFR IS NOT psgl=9756) ACCURATE CREATININE CLEARANCE IN PREDICTING GLOMERULAR FILTRATION RATE. ESTIMATED GFR IS NOT APPLICABLE FOR DIALYSIS PATIENTS. Specimen markedly [id number] 05:23:00 Test Item Value Reference Range Comments PHOSPHORUS (BEAKER) (test uqka=949) 3.1 mg/dL 2.3-4.7 [id number] 05:23:00 Test Item Value Reference Range Comments MAGNESIUM (BEAKER) (test dktf=081) 1.6 mg/dL 1.6-2.6 CALCIUM, [id number] 05:13:00 Test Item Value Reference Range Comments CALCIUM IONIZED (BEAKER) (test nppn=222) 1.01 mmol/L 1.12-1.27 PH, BLOOD (BEAKER) (test ptza=6412) 7.48 CBC W/PLT COUNT & AUTO [id number] 05:10:00 Test Item Value Reference Range Comments WHITE BLOOD CELL COUNT (BEAKER) (test gdkx=332) 18.0 K/ L 3.5-10.5 RED BLOOD CELL COUNT (BEAKER) (test llfh=544) 2.31 M/ L 4.63-6.08 HEMOGLOBIN (BEAKER) (test tabb=908) 7.4 GM/DL 13.7-17.5 HEMATOCRIT (BEAKER) (test pkka=165) 23.2 % 40.1-51.0 MEAN CORPUSCULAR VOLUME (BEAKER) (test tnog=873) 100.4 fL 79.0-92.2 MEAN CORPUSCULAR HEMOGLOBIN (BEAKER) (test 32.0 pg 25.7-32.2 jptb=975) MEAN CORPUSCULAR HEMOGLOBIN CONC (BEAKER) (test 31.9 GM/DL 32.3-36.5 ciyf=358) RED CELL DISTRIBUTION WIDTH (BEAKER) (test 25.3 % 11.6-14.4 hpnh=146) PLATELET COUNT (BEAKER) (test dldu=620) 54 K/CU MM 150-450 MEAN PLATELET VOLUME (BEAKER) (test gorw=139) 11.6 fL 9.4-12.4 NUCLEATED RED BLOOD CELLS (BEAKER) (test 0 /100 WBC 0-0 fsxj=808) NEUTROPHILS RELATIVE PERCENT (BEAKER) (test 87 % uqfi=815) LYMPHOCYTES RELATIVE PERCENT (BEAKER) (test 4 % fsph=371) MONOCYTES RELATIVE PERCENT (BEAKER) (test 6 % mrcq=115) EOSINOPHILS RELATIVE PERCENT (BEAKER) (test 0 % njbc=429) BASOPHILS RELATIVE PERCENT (BEAKER) (test 0 % zztk=484) NEUTROPHILS ABSOLUTE COUNT (BEAKER) (test 15.55 K/ L 1.78-5.38 zhdt=215) LYMPHOCYTES ABSOLUTE COUNT (BEAKER) (test 0.78 K/ L 1.32-3.57 ntun=881) MONOCYTES ABSOLUTE COUNT (BEAKER) (test gftf=164) 1.07 K/ L 0.30-0.82 EOSINOPHILS ABSOLUTE COUNT (BEAKER) (test 0.00 K/ L 0.04-0.54 lowk=868) BASOPHILS ABSOLUTE COUNT (BEAKER) (test dmkh=991) 0.02 K/ L 0.01-0.08 IMMATURE GRANULOCYTES-RELATIVE PERCENT (BEAKER) 3 % 0-1 (test mnyi=4119) PROTHROMBIN [id number] 05:01:00 Test Item Value Reference Range Comments PROTIME (BEAKER) (test afsf=826) 26.0 seconds 11.7-14.7 INR (BEAKER) (test zatb=363) 2.4 <=5.9 RECOMMENDED COUMADIN/WARFARIN INR THERAPY RANGESSTANDARD DOSE: 2.0 - 3.0 Includes: PROPHYLAXIS forvenous thrombosis, systemic embolization; TREATMENT for venous thrombosis and/or pulmonary embolus.HIGH RISK: Target INR is 2.5-3.5 for patients with mechanical heart valves.CRYPTOCOCCAL [id number] 02:15: 00 Test Item Value Reference Range Comments CRYPTOCOCCAL ANTIGEN, SERUM (BEAKER) (test Negative Negative, Interference swez=5971) POCT-GLUCOSE [id number] 23:10:00 Test Item Value Reference Range Comments POC-GLUCOSE METER (BEAKER) 142 mg/dL 70-110 TESTED AT [address] (test uxkr=2456) [place] [id number] POCT-GLUCOSE [id number] 17:45:00 Test Item Value Reference Range Comments POC-GLUCOSE METER (BEAKER) 164 mg/dL 70-110 TESTED AT [address] (test osez=8628) [place] [id number] POCT-GLUCOSE [id number] 12:27:00 Test Item Value Reference Range Comments POC-GLUCOSE METER (BEAKER) 229 mg/dL 70-110 TESTED AT [address] (test tzdi=8415) [facility] [address] CBC W/PLT COUNT & AUTO [id number] 12:17:00 Test Item Value Reference Range Comments WHITE BLOOD CELL COUNT (BEAKER) (test deeg=346) 17.0 K/ L 3.5-10.5 RED BLOOD CELL COUNT (BEAKER) (test qccu=148) 2.32 M/ L 4.63-6.08 HEMOGLOBIN (BEAKER) (test agkc=844) 7.5 GM/DL 13.7-17.5 HEMATOCRIT (BEAKER) (test zmpc=863) 23.2 % 40.1-51.0 MEAN CORPUSCULAR VOLUME (BEAKER) (test jidv=570) 100.0 fL 79.0-92.2 MEAN CORPUSCULAR HEMOGLOBIN (BEAKER) (test 32.3 pg 25.7-32.2 kquj=903) MEAN CORPUSCULAR HEMOGLOBIN CONC (BEAKER) (test 32.3 GM/DL 32.3-36.5 zbwl=692) RED CELL DISTRIBUTION WIDTH (BEAKER) (test 24.5 % 11.6-14.4 vzrq=076) PLATELET COUNT (BEAKER) (test altu=597) 58 K/CU MM 150-450 MEAN PLATELET VOLUME (BEAKER) (test iked=922) 11.7 fL 9.4-12.4 NUCLEATED RED BLOOD CELLS (BEAKER) (test 0 /100 WBC 0-0 oujl=286) NEUTROPHILS RELATIVE PERCENT (BEAKER) (test 88 % cdql=760) LYMPHOCYTES RELATIVE PERCENT (BEAKER) (test 4 % kpiw=436) MONOCYTES RELATIVE PERCENT (BEAKER) (test 6 % mpiz=764) EOSINOPHILS RELATIVE PERCENT (BEAKER) (test 0 % gsxi=017) BASOPHILS RELATIVE PERCENT (BEAKER) (test 0 % nfju=070) NEUTROPHILS ABSOLUTE COUNT (BEAKER) (test 14.98 K/ L 1.78-5.38 urki=289) LYMPHOCYTES ABSOLUTE COUNT (BEAKER) (test 0.62 K/ L 1.32-3.57 xqbl=899) MONOCYTES ABSOLUTE COUNT (BEAKER) (test rjce=631) 1.03 K/ L 0.30-0.82 EOSINOPHILS ABSOLUTE COUNT (BEAKER) (test 0.00 K/ L 0.04-0.54 wbgc=406) BASOPHILS ABSOLUTE COUNT (BEAKER) (test gtmr=465) 0.02 K/ L 0.01-0.08 IMMATURE GRANULOCYTES-RELATIVE PERCENT (BEAKER) 2 % 0-1 (test wtoo=7550) BLOOD [id number] 11:00:00 Test Item Value Reference Range Comments CULTURE (BEAKER) (test wchz=7908) No growth in 5 days BLOOD [id number] 11:00:00 Test Item Value Reference Range Comments CULTURE (BEAKER) (test kdgu=7229) No growth in 5 days HEMOGLOBIN AND [id number] 08:52:00 Test Item Value Reference Range Comments HEMOGLOBIN (BEAKER) (test walb=645) 8.3 GM/DL 13.7-17.5 HEMATOCRIT (BEAKER) (test cdny=251) 25.3 % 40.1-51.0 POCT-GLUCOSE [id number] 08:08:00 Test Item Value Reference Range Comments POC-GLUCOSE METER (BEAKER) 154 mg/dL 70-110 TESTED AT [facility] [address] (test ngtk=4513) [facility] [address] HEMOGLOBIN AND [id number] 05:03:00 Test Item Value Reference Range Comments HEMOGLOBIN (BEAKER) (test jcff=247) 7.8 GM/DL 13.7-17.5 HEMATOCRIT (BEAKER) (test zrmg=501) 24.3 % 40.1-51.0 COMPREHENSIVE METABOLIC [id number] 04:24:00 Test Item Value Reference Range Comments TOTAL PROTEIN (BEAKER) 5.0 gm/dL 6.0-8.3 (test lxsj=789) ALBUMIN (BEAKER) (test 1.7 g/dL 3.5-5.0 nvst=8404) ALKALINE PHOSPHATASE 254 U/L 40-150 (BEAKER) (test ojes=534) BILIRUBIN TOTAL (BEAKER) 13.9 mg/dL 0.2-1.2 (test mzeb=822) SODIUM (BEAKER) (test 136 meq/L 136-145 xzvo=210) POTASSIUM (BEAKER) (test 3.7 meq/L 3.5-5.1 cbet=561) CHLORIDE (BEAKER) (test 106 meq/L 98-107 nrww=036) CO2 (BEAKER) (test 25 meq/L 22-29 nguj=370) BLOOD UREA NITROGEN 38 mg/dL 7-21 (BEAKER) (test bsxy=837) CREATININE (BEAKER) (test 1.17 mg/dL 0.57-1.25 nkcp=149) GLUCOSE RANDOM (BEAKER) 121 mg/dL 70-105 (test eqqq=510) CALCIUM (BEAKER) (test 7.6 mg/dL 8.4-10.2 btyb=842) AST (SGOT) (BEAKER) (test 176 U/L 5-34 qmqj=292) ALT (SGPT) (BEAKER) (test 147 U/L 6-55 edex=408) EGFR (BEAKER) (test 66 mL/min/1.73 sq m ESTIMATED GFR IS NOT mmxn=6471) ACCURATE CREATININE CLEARANCE IN PREDICTING GLOMERULAR FILTRATION RATE. ESTIMATED GFR IS NOT APPLICABLE FOR DIALYSIS PATIENTS. Specimen markedly [id number] 04:11:00 Test Item Value Reference Range Comments PHOSPHORUS (BEAKER) (test jjys=565) 3.3 mg/dL 2.3-4.7 [id number] 04:11:00 Test Item Value Reference Range Comments MAGNESIUM (BEAKER) (test twqt=444) 1.8 mg/dL 1.6-2.6 CBC W/PLT COUNT & AUTO [id number] 04:00:00 Test Item Value Reference Range Comments WHITE BLOOD CELL COUNT (BEAKER) (test byay=042) 13.0 K/ L 3.5-10.5 RED BLOOD CELL COUNT (BEAKER) (test uydw=210) 2.14 M/ L 4.63-6.08 HEMOGLOBIN (BEAKER) (test ihsg=400) 6.7 GM/DL 13.7-17.5 HEMATOCRIT (BEAKER) (test ysbz=250) 21.1 % 40.1-51.0 MEAN CORPUSCULAR VOLUME (BEAKER) (test qpcc=298) 98.6 fL 79.0-92.2 MEAN CORPUSCULAR HEMOGLOBIN (BEAKER) (test 31.3 pg 25.7-32.2 lnve=127) MEAN CORPUSCULAR HEMOGLOBIN CONC (BEAKER) (test 31.8 GM/DL 32.3-36.5 dckw=073) RED CELL DISTRIBUTION WIDTH (BEAKER) (test 23.9 % 11.6-14.4 skjc=135) PLATELET COUNT (BEAKER) (test prrw=928) 51 K/CU MM 150-450 MEAN PLATELET VOLUME (BEAKER) (test hurx=930) 11.3 fL 9.4-12.4 NUCLEATED RED BLOOD CELLS (BEAKER) (test 0 /100 WBC 0-0 mvsy=912) NEUTROPHILS RELATIVE PERCENT (BEAKER) (test 88 % sjff=749) LYMPHOCYTES RELATIVE PERCENT (BEAKER) (test 4 % hlgs=040) MONOCYTES RELATIVE PERCENT (BEAKER) (test 6 % lihe=386) EOSINOPHILS RELATIVE PERCENT (BEAKER) (test 0 % lbvz=117) BASOPHILS RELATIVE PERCENT (BEAKER) (test 0 % vwrx=205) NEUTROPHILS ABSOLUTE COUNT (BEAKER) (test 11.40 K/ L 1.78-5.38 fmts=207) LYMPHOCYTES ABSOLUTE COUNT (BEAKER) (test 0.52 K/ L 1.32-3.57 uuin=120) MONOCYTES ABSOLUTE COUNT (BEAKER) (test hazt=691) 0.83 K/ L 0.30-0.82 EOSINOPHILS ABSOLUTE COUNT (BEAKER) (test 0.00 K/ L 0.04-0.54 jrjw=561) BASOPHILS ABSOLUTE COUNT (BEAKER) (test qwtl=805) 0.02 K/ L 0.01-0.08 IMMATURE GRANULOCYTES-RELATIVE PERCENT (BEAKER) 2 % 0-1 (test eqtg=3474) PROTHROMBIN [id number] 03:59:00 Test Item Value Reference Range Comments PROTIME (BEAKER) (test umbx=063) 25.8 seconds 11.7-14.7 INR (BEAKER) (test awra=722) 2.4 <=5.9 RECOMMENDED COUMADIN/WARFARIN INR THERAPY RANGESSTANDARD DOSE: 2.0 - 3.0 Includes: PROPHYLAXIS forvenous thrombosis, systemic embolization; TREATMENT for venous thrombosis and/or pulmonary embolus.HIGH RISK: Target INR is 2.5-3.5 for patients with mechanical heart valves.CALCIUM, [id number] 03:42:00 Test Item Value Reference Range Comments CALCIUM IONIZED (BEAKER) (test utvl=491) 1.12 mmol/L 1.12-1.27 PH, BLOOD (BEAKER) (test wjyp=6539) 7.46 POCT-GLUCOSE [id number] 22:12:00 Test Item Value Reference Range Comments POC-GLUCOSE METER (BEAKER) 239 mg/dL 70-110 TESTED AT [address] (test uybh=3376) [place] [address] POCT-GLUCOSE [id number] 17:32:00 Test Item Value Reference Range Comments POC-GLUCOSE METER (BEAKER) 146 mg/dL 70-110 TESTED AT [address] (test vlma=8363) [place] [address] BASIC METABOLIC [id number] 16:44:00 Test Item Value Reference Range Comments SODIUM (BEAKER) (test 138 meq/L 136-145 zwby=541) POTASSIUM (BEAKER) (test 3.3 meq/L 3.5-5.1 btvg=216) CHLORIDE (BEAKER) (test 107 meq/L 98-107 uyte=602) CO2 (BEAKER) (test 24 meq/L 22-29 gtco=363) BLOOD UREA NITROGEN 42 mg/dL 7-21 (BEAKER) (test iwzs=626) CREATININE (BEAKER) (test 1.27 mg/dL 0.57-1.25 jasp=070) GLUCOSE RANDOM (BEAKER) 166 mg/dL 70-105 (test upgu=830) CALCIUM (BEAKER) (test 8.0 mg/dL 8.4-10.2 crzj=048) EGFR (BEAKER) (test 60 mL/min/1.73 sq m ESTIMATED GFR IS NOT sbqv=0391) ACCURATE CREATININE CLEARANCE IN PREDICTING GLOMERULAR FILTRATION RATE. ESTIMATED GFR IS NOT APPLICABLE FOR DIALYSIS PATIENTS. Specimen markedly [id number] 16:40:00 Test Item Value Reference Range Comments MAGNESIUM (BEAKER) (test dhht=001) 2.1 mg/dL 1.6-2.6 HEMOGLOBIN AND [id number] 16:23:00 Test Item Value Reference Range Comments HEMOGLOBIN (BEAKER) (test vkqg=118) 8.0 GM/DL 13.7-17.5 HEMATOCRIT (BEAKER) (test egll=633) 24.5 % 40.1-51.0 POCT-GLUCOSE [id number] 12:04:00 Test Item Value Reference Range Comments POC-GLUCOSE METER (BEAKER) 284 mg/dL 70-110 TESTED AT [address] (test fovo=3896) [facility] [address] POCT-GLUCOSE [id number] 07:51:00 Test Item Value Reference Range Comments POC-GLUCOSE METER (BEAKER) 166 mg/dL 70-110 TESTED AT [address] (test rvwv=7636) [place] [id number] COMPREHENSIVE METABOLIC [id number] 05:59:00 Test Item Value Reference Range Comments TOTAL PROTEIN (BEAKER) 5.1 gm/dL 6.0-8.3 (test hqcx=241) ALBUMIN (BEAKER) (test 1.9 g/dL 3.5-5.0 uosu=3658) ALKALINE PHOSPHATASE 278 U/L 40-150 (BEAKER) (test fvqt=647) BILIRUBIN TOTAL (BEAKER) 15.8 mg/dL 0.2-1.2 (test gnyn=746) SODIUM (BEAKER) (test 146 meq/L 136-145 pxqs=455) POTASSIUM (BEAKER) (test 3.9 meq/L 3.5-5.1 fnld=783) CHLORIDE (BEAKER) (test 114 meq/L 98-107 mvjv=829) CO2 (BEAKER) (test 26 meq/L 22-29 cjhv=750) BLOOD UREA NITROGEN 39 mg/dL 7-21 (BEAKER) (test nscc=729) CREATININE (BEAKER) (test 1.21 mg/dL 0.57-1.25 zncc=694) GLUCOSE RANDOM (BEAKER) 128 mg/dL 70-105 (test voyq=975) CALCIUM (BEAKER) (test 8.0 mg/dL 8.4-10.2 aolv=536) AST (SGOT) (BEAKER) (test 196 U/L 5-34 ypxj=199) ALT (SGPT) (BEAKER) (test 157 U/L 6-55 xobo=425) EGFR (BEAKER) (test 63 mL/min/1.73 sq m ESTIMATED GFR IS NOT atgn=0477) ACCURATE CREATININE CLEARANCE IN PREDICTING GLOMERULAR FILTRATION RATE. ESTIMATED GFR IS NOT APPLICABLE FOR DIALYSIS PATIENTS. Specimen markedly [id number] 04:55:00 Test Item Value Reference Range Comments PHOSPHORUS (BEAKER) (test vpff=994) 4.4 mg/dL 2.3-4.7 [id number] 04:55:00 Test Item Value Reference Range Comments MAGNESIUM (BEAKER) (test gvlo=040) 1.5 mg/dL 1.6-2.6 RAD, CHEST, 1 VIEW, NON [id number] 04:50:00Reason for exam:->edemaShould this be performed at the bedside?->YesFINAL REPORT CLINICAL INDICATION: Edema Comparison: 01/30/2018 The cardiomediastinal contours are stable. The lung volumes have decreased after extubation. There is worsening central pulmonary vascular congestion. Hazy opacity in the left mid to lower lung suggests a layering effusion with subjacent atelectasis. Superimposed pneumonitis should be excluded clinically. There is no pneumothorax. A right IJ CVC and feeding tube have been removed. A left IJ CVC remains in place. Signed: Tyler Cunningham MDReport Verified Date/Time: 2017 04:50:23 Reading Location: [address] Reading Room B-TYPE NATRIURETIC FACTOR (BNP)2018-02-03 04:24:00 Test Item Value Reference Range Comments B-TYPE NATRIURETIC PEPTIDE (BEAKER) (test 560 pg/mL 0-100 azdc=048) CALCIUM, [id number] 04:12:00 Test Item Value Reference Range Comments CALCIUM IONIZED (BEAKER) (test fubd=629) 1.12 mmol/L 1.12-1.27 PH, BLOOD (BEAKER) (test mfox=1735) 7.45 PROTHROMBIN [id number] 04:10:00 Test Item Value Reference Range Comments PROTIME (BEAKER) (test hwyy=138) 24.8 seconds 11.7-14.7 INR (BEAKER) (test psqm=763) 2.2 <=5.9 RECOMMENDED COUMADIN/WARFARIN INR THERAPY RANGESSTANDARD DOSE: 2.0 - 3.0 Includes: PROPHYLAXIS forvenous thrombosis, systemic embolization; TREATMENT for venous thrombosis and/or pulmonary embolus.HIGH RISK: Target INR is 2.5-3.5 for patients with mechanical heart valves.CBC W/PLT COUNT & AUTO [id number] 04:01:00 Test Item Value Reference Range Comments WHITE BLOOD CELL COUNT (BEAKER) (test fvmy=095) 11.5 K/ L 3.5-10.5 RED BLOOD CELL COUNT (BEAKER) (test oxih=603) 2.25 M/ L 4.63-6.08 HEMOGLOBIN (BEAKER) (test pgcb=364) 7.1 GM/DL 13.7-17.5 HEMATOCRIT (BEAKER) (test jjgd=267) 22.1 % 40.1-51.0 MEAN CORPUSCULAR VOLUME (BEAKER) (test omvi=710) 98.2 fL 79.0-92.2 MEAN CORPUSCULAR HEMOGLOBIN (BEAKER) (test 31.6 pg 25.7-32.2 nheh=097) MEAN CORPUSCULAR HEMOGLOBIN CONC (BEAKER) (test 32.1 GM/DL 32.3-36.5 vofc=836) RED CELL DISTRIBUTION WIDTH (BEAKER) (test 23.5 % 11.6-14.4 chkm=371) PLATELET COUNT (BEAKER) (test cixs=607) 61 K/CU MM 150-450 MEAN PLATELET VOLUME (BEAKER) (test qeji=453) 11.4 fL 9.4-12.4 NUCLEATED RED BLOOD CELLS (BEAKER) (test 1 /100 WBC 0-0 ealj=474) NEUTROPHILS RELATIVE PERCENT (BEAKER) (test 88 % cpdi=713) LYMPHOCYTES RELATIVE PERCENT (BEAKER) (test 5 % rncn=386) MONOCYTES RELATIVE PERCENT (BEAKER) (test 6 % xhaq=687) EOSINOPHILS RELATIVE PERCENT (BEAKER) (test 0 % whnl=587) BASOPHILS RELATIVE PERCENT (BEAKER) (test 0 % hwzw=760) NEUTROPHILS ABSOLUTE COUNT (BEAKER) (test 10.08 K/ L 1.78-5.38 fsab=057) LYMPHOCYTES ABSOLUTE COUNT (BEAKER) (test 0.56 K/ L 1.32-3.57 mnbg=781) MONOCYTES ABSOLUTE COUNT (BEAKER) (test xqkz=151) 0.66 K/ L 0.30-0.82 EOSINOPHILS ABSOLUTE COUNT (BEAKER) (test 0.00 K/ L 0.04-0.54 ahev=559) BASOPHILS ABSOLUTE COUNT (BEAKER) (test ciey=772) 0.01 K/ L 0.01-0.08 IMMATURE GRANULOCYTES-RELATIVE PERCENT (BEAKER) 2 % 0-1 (test afcp=8303) POCT-GLUCOSE [id number] 18:11:00 Test Item Value Reference Range Comments POC-GLUCOSE METER (BEAKER) 174 mg/dL 70-110 TESTED AT [facility] [address] [facility] (test txlq=3109) [facility] [address] BASIC METABOLIC [id number] 16:37:00 Test Item Value Reference Range Comments SODIUM (BEAKER) (test 146 meq/L 136-145 evzh=705) POTASSIUM (BEAKER) (test 3.8 meq/L 3.5-5.1 ganz=600) CHLORIDE (BEAKER) (test 115 meq/L 98-107 mdgy=910) CO2 (BEAKER) (test 25 meq/L 22-29 odyw=678) BLOOD UREA NITROGEN 40 mg/dL 7-21 (BEAKER) (test poje=498) CREATININE (BEAKER) (test 1.28 mg/dL 0.57-1.25 xixg=579) GLUCOSE RANDOM (BEAKER) 146 mg/dL 70-105 (test ikdh=764) CALCIUM (BEAKER) (test 8.0 mg/dL 8.4-10.2 xige=549) EGFR (BEAKER) (test 59 mL/min/1.73 sq m ESTIMATED GFR IS NOT fqeo=8219) ACCURATE CREATININE CLEARANCE IN PREDICTING GLOMERULAR FILTRATION RATE. ESTIMATED GFR IS NOT APPLICABLE FOR DIALYSIS PATIENTS. Specimen markedly ictericCBC W/PLT COUNT & AUTO [id number] 15:43 :00 Test Item Value Reference Range Comments WHITE BLOOD CELL COUNT (BEAKER) (test ckyp=320) 13.2 K/ L 3.5-10.5 RED BLOOD CELL COUNT (BEAKER) (test morb=171) 2.41 M/ L 4.63-6.08 HEMOGLOBIN (BEAKER) (test vnhe=801) 7.6 GM/DL 13.7-17.5 HEMATOCRIT (BEAKER) (test bdgg=043) 23.5 % 40.1-51.0 MEAN CORPUSCULAR VOLUME (BEAKER) (test mavk=640) 97.5 fL 79.0-92.2 MEAN CORPUSCULAR HEMOGLOBIN (BEAKER) (test 31.5 pg 25.7-32.2 gvwp=818) MEAN CORPUSCULAR HEMOGLOBIN CONC (BEAKER) (test 32.3 GM/DL 32.3-36.5 sffl=632) RED CELL DISTRIBUTION WIDTH (BEAKER) (test 23.1 % 11.6-14.4 gqdt=231) PLATELET COUNT (BEAKER) (test jhzu=425) 68 K/CU MM 150-450 MEAN PLATELET VOLUME (BEAKER) (test xrra=581) 11.2 fL 9.4-12.4 NUCLEATED RED BLOOD CELLS (BEAKER) (test 1 /100 WBC 0-0 ydgq=214) NEUTROPHILS RELATIVE PERCENT (BEAKER) (test 86 % vdpj=075) LYMPHOCYTES RELATIVE PERCENT (BEAKER) (test 4 % kyia=808) MONOCYTES RELATIVE PERCENT (BEAKER) (test 8 % yvja=605) EOSINOPHILS RELATIVE PERCENT (BEAKER) (test 0 % sdxu=124) BASOPHILS RELATIVE PERCENT (BEAKER) (test 0 % vykz=324) NEUTROPHILS ABSOLUTE COUNT (BEAKER) (test 11.32 K/ L 1.78-5.38 jeai=388) LYMPHOCYTES ABSOLUTE COUNT (BEAKER) (test 0.57 K/ L 1.32-3.57 gqql=544) MONOCYTES ABSOLUTE COUNT (BEAKER) (test gmsb=283) 0.99 K/ L 0.30-0.82 EOSINOPHILS ABSOLUTE COUNT (BEAKER) (test 0.00 K/ L 0.04-0.54 sfly=112) BASOPHILS ABSOLUTE COUNT (BEAKER) (test yszu=145) 0.02 K/ L 0.01-0.08 IMMATURE GRANULOCYTES-RELATIVE PERCENT (BEAKER) 2 % 0-1 (test vyhc=4132) POCT-GLUCOSE [id number] 12:18:00 Test Item Value Reference Range Comments POC-GLUCOSE METER (BEAKER) 161 mg/dL 70-110 TESTED AT [facility] [address] [facility] (test frfw=2907) [facility] [address] BASIC METABOLIC [id number] 07:04:00 Test Item Value Reference Range Comments SODIUM (BEAKER) (test 148 meq/L 136-145 boae=442) POTASSIUM (BEAKER) (test 3.7 meq/L 3.5-5.1 brjk=044) CHLORIDE (BEAKER) (test 116 meq/L 98-107 eeir=500) CO2 (BEAKER) (test 27 meq/L 22-29 tsoy=051) BLOOD UREA NITROGEN 45 mg/dL 7-21 (BEAKER) (test qnvw=796) CREATININE (BEAKER) (test 1.41 mg/dL 0.57-1.25 mgyy=954) GLUCOSE RANDOM (BEAKER) 159 mg/dL 70-105 (test qvuw=207) CALCIUM (BEAKER) (test 7.7 mg/dL 8.4-10.2 qwqk=517) EGFR (BEAKER) (test 53 mL/min/1.73 sq m ESTIMATED GFR IS NOT jwlj=1953) ACCURATE CREATININE CLEARANCE IN PREDICTING GLOMERULAR FILTRATION RATE. ESTIMATED GFR IS NOT APPLICABLE FOR DIALYSIS PATIENTS. Specimen markedly [id number] 06:52:00 Test Item Value Reference Range Comments PHOSPHORUS (BEAKER) (test bbgf=669) 3.1 mg/dL 2.3-4.7 [id number] 06:52:00 Test Item Value Reference Range Comments MAGNESIUM (BEAKER) (test jrjg=331) 1.6 mg/dL 1.6-2.6 POCT-GLUCOSE [id number] 06:34:00 Test Item Value Reference Range Comments POC-GLUCOSE METER (BEAKER) 212 mg/dL 70-110 TESTED AT [facility] [address] (test mwcg=7936) [place] [address] PROTHROMBIN [id number] 04:56:00 Test Item Value Reference Range Comments PROTIME (BEAKER) (test acxb=175) 26.2 seconds 11.7-14.7 INR (BEAKER) (test rlpq=603) 2.4 <=5.9 RECOMMENDED COUMADIN/WARFARIN INR THERAPY RANGESSTANDARD DOSE: 2.0 - 3.0 Includes: PROPHYLAXIS forvenous thrombosis, systemic embolization; TREATMENT for venous thrombosis and/or pulmonary embolus.HIGH RISK: Target INR is 2.5-3.5 for patients with mechanical heart valves.CBC W/PLT COUNT & AUTO [id number] 04:35:00 Test Item Value Reference Range Comments WHITE BLOOD CELL COUNT (BEAKER) (test btwr=088) 11.6 K/ L 3.5-10.5 RED BLOOD CELL COUNT (BEAKER) (test wuib=282) 2.07 M/ L 4.63-6.08 HEMOGLOBIN (BEAKER) (test omhf=525) 6.6 GM/DL 13.7-17.5 HEMATOCRIT (BEAKER) (test jksn=850) 20.5 % 40.1-51.0 MEAN CORPUSCULAR VOLUME (BEAKER) (test aycx=508) 99.0 fL 79.0-92.2 MEAN CORPUSCULAR HEMOGLOBIN (BEAKER) (test 31.9 pg 25.7-32.2 fuka=222) MEAN CORPUSCULAR HEMOGLOBIN CONC (BEAKER) (test 32.2 GM/DL 32.3-36.5 smcz=793) RED CELL DISTRIBUTION WIDTH (BEAKER) (test 25.0 % 11.6-14.4 gypy=686) PLATELET COUNT (BEAKER) (test xcor=228) 40 K/CU MM 150-450 MEAN PLATELET VOLUME (BEAKER) (test supv=297) 10.6 fL 9.4-12.4 NUCLEATED RED BLOOD CELLS (BEAKER) (test 1 /100 WBC 0-0 cokf=202) NEUTROPHILS RELATIVE PERCENT (BEAKER) (test 85 % guko=548) LYMPHOCYTES RELATIVE PERCENT (BEAKER) (test 4 % zxmz=070) MONOCYTES RELATIVE PERCENT (BEAKER) (test 8 % wknq=661) EOSINOPHILS RELATIVE PERCENT (BEAKER) (test 0 % qvjg=879) BASOPHILS RELATIVE PERCENT (BEAKER) (test 0 % kygv=188) NEUTROPHILS ABSOLUTE COUNT (BEAKER) (test 9.82 K/ L 1.78-5.38 rtjp=708) LYMPHOCYTES ABSOLUTE COUNT (BEAKER) (test 0.49 K/ L 1.32-3.57 izlq=359) MONOCYTES ABSOLUTE COUNT (BEAKER) (test sqva=230) 0.90 K/ L 0.30-0.82 EOSINOPHILS ABSOLUTE COUNT (BEAKER) (test 0.01 K/ L 0.04-0.54 snay=767) BASOPHILS ABSOLUTE COUNT (BEAKER) (test qyvp=105) 0.01 K/ L 0.01-0.08 IMMATURE GRANULOCYTES-RELATIVE PERCENT (BEAKER) 3 % 0-1 (test yecr=9137) CALCIUM, [id number] 04:20:00 Test Item Value Reference Range Comments CALCIUM IONIZED (BEAKER) (test ndjp=586) 1.11 mmol/L 1.12-1.27 PH, BLOOD (BEAKER) (test iier=5890) 7.45 POCT-GLUCOSE [id number] 23:47:00 Test Item Value Reference Range Comments POC-GLUCOSE METER (BEAKER) 213 mg/dL 70-110 TESTED AT [facility] [address] [facility] (test cqfz=8939) [facility] [address] [id number] 21:23:00 Test Item Value Reference Range Comments PHOSPHORUS (BEAKER) (test zrqz=954) 3.3 mg/dL 2.3-4.7 [id number] 21:23:00 Test Item Value Reference Range Comments MAGNESIUM (BEAKER) (test ppok=159) 1.8 mg/dL 1.6-2.6 BASIC METABOLIC [id number] 21:23:00 Test Item Value Reference Range Comments SODIUM (BEAKER) (test 150 meq/L 136-145 ocjq=991) POTASSIUM (BEAKER) (test 3.6 meq/L 3.5-5.1 fewv=403) CHLORIDE (BEAKER) (test 117 meq/L 98-107 rkld=748) CO2 (BEAKER) (test 27 meq/L 22-29 tslw=376) BLOOD UREA NITROGEN 46 mg/dL 7-21 (BEAKER) (test masc=897) CREATININE (BEAKER) (test 1.44 mg/dL 0.57-1.25 aihy=590) GLUCOSE RANDOM (BEAKER) 176 mg/dL 70-105 (test iksh=747) CALCIUM (BEAKER) (test 7.8 mg/dL 8.4-10.2 ywds=472) EGFR (BEAKER) (test 52 mL/min/1.73 sq m ESTIMATED GFR IS NOT bqoa=7086) ACCURATE CREATININE CLEARANCE IN PREDICTING GLOMERULAR FILTRATION RATE. ESTIMATED GFR IS NOT APPLICABLE FOR DIALYSIS PATIENTS. Specimen markedly ictericCALCIUM, [id number] 20:09:00 Test Item Value Reference Range Comments CALCIUM IONIZED (BEAKER) (test ebxx=642) 1.11 mmol/L 1.12-1.27 PH, BLOOD (BEAKER) (test hfof=8786) 7.47 POCT-GLUCOSE [id number] 18:23:00 Test Item Value Reference Range Comments POC-GLUCOSE METER (BEAKER) 163 mg/dL 70-110 TESTED AT [facility] [address] [facility] (test jbmz=8668) [facility] [address] BASIC METABOLIC [id number] 18:17:00 Test Item Value Reference Range Comments SODIUM (BEAKER) (test 150 meq/L 136-145 oyyv=753) POTASSIUM (BEAKER) (test 3.3 meq/L 3.5-5.1 fldz=630) CHLORIDE (BEAKER) (test 117 meq/L 98-107 cpeu=740) CO2 (BEAKER) (test 27 meq/L 22-29 vxjb=091) BLOOD UREA NITROGEN 46 mg/dL 7-21 (BEAKER) (test mlxb=278) CREATININE (BEAKER) (test 1.53 mg/dL 0.57-1.25 nppw=650) GLUCOSE RANDOM (BEAKER) 142 mg/dL 70-105 (test sopj=605) CALCIUM (BEAKER) (test 7.9 mg/dL 8.4-10.2 tkod=248) EGFR (BEAKER) (test 48 mL/min/1.73 sq m ESTIMATED GFR IS NOT qugu=5714) ACCURATE CREATININE CLEARANCE IN PREDICTING GLOMERULAR FILTRATION RATE. ESTIMATED GFR IS NOT APPLICABLE FOR DIALYSIS PATIENTS. Call results [id number] markedly ictericBLOOD [id number] 18:00:00 Test Item Value Reference Range Comments CULTURE (BEAKER) (test dhql=2916) No growth in 5 days BLOOD [id number] 18:00:00 Test Item Value Reference Range Comments CULTURE (BEAKER) (test vurk=0747) No growth in 5 days BLOOD [id number] 18:00:00 Test Item Value Reference Range Comments CULTURE (BEAKER) (test fyeq=7468) No growth in [address], [id number] 16:32:00Po contrast pleaseFINAL REPORT CT ABDOMEN AND PELVIS WITHOUT IV CONTRAST History provided: Fever, cirrhosis TECHNIQUE: Spiral CT cuts were performed through the abdomen and pelvis with no contrastadministered. FINDINGS: Small left pleural effusion with subsegmental atelectasis in the left lower lobe. No pleural fluid on the right. A TIPS shunt is noted in place. Without IV contrast I cannot assess patency. Liver demonstrates fatty changes and diffusely nonhomogeneous attenuation. The presence of a significant lesion within the liver cannot be excluded based upon this limited noncontrast study. The spleen is minimally enlarged to 12.8 cm. Dobbhoff feeding tube is in place with tip in the distal duodenum. No gastric distention, and no small or large bowel dilatation evident. There is diffuse wall thickening within the small bowel. The etiology for this is uncertain. The colon shows no evidence of mural thickening. Small amount of intraperitoneal fluid. No free intraperitoneal air. Abdominalaorta normal in caliber. Kidneys normal in size with no calculi or hydronephrosis. No evidence of intraabdominal abscess. IMPRESSION: Small left pleural effusion with left basilar atelectasis. No signsof bowel obstruction. There is diffuse mural thickening involving the small bowel of uncertain etiology, not resulting in bowel obstruction. Small amount of intraperitoneal fluid. COMMENT: This exam was performed according to our departmental dose-optimization program, which includes automated exposure control, adjustment of the mA and/or kV according to patient size and/or use of iterative reconstruction technique. Signed: Toro Estrada MDReport Verified Date/ Time: 02/01/2018 16:32:42 Reading Location: [address] Radiology Reading Room CORTISOL,60 [id number] 15:35:00 Test Item Value Reference Range Comments CORTISOL BASELINE NETWORKED (BEAKER) (test 13.6 mcg/dL mxrc=5671) CORTISOL 30 MINUTE NETWORKED (BEAKER) (test 16.7 mcg/dL vcat=2066) CORTISOL, 60 MINUTE (BEAKER) (test egek=6770) 17.7 ug/dL ACTH STIMULATION TEST INTERPRETATION GUIDELINES(Synonyms: Cortrosyn Test, Cosyntropin or Corticotropin Stimulation Test)Adenocorticotropic hormone (ACTH) is a tropic hormone, made in the pituitary gland, which travels trhough the bloodstream and stimulates the cortex of the adrenal glands to release cortisol. Cortisol is a primary hormone, which aids the body's metabolism of fats, carbohydrates, and protein as well as sodium and potassium regulation.ACTH Stimulation Test: Exogenous administrationof biologically active ACTH stimulates the secretion of cortisol from the adrenal gland. This test is used to evaluate adrenal function by measuring cortisol levels at baseline and at 30 and 60 minutesafter the administration of 250 micrograms of cosyntropin (Cortrosyn). Patients who have received exogenous corticosteroids immediately prior to performing the ACTH Stimulation Test will often have elevated baseline cortisol levels, which may lead to erroneous interpretation of test results. The notable exception is with dexamethasone.Normal Response: An increase in cortisol after stimulation by ACTHis normal. Post-stimulation cortisol concentration should be greater than 20 mcg/dL or the rate of rise from baseline cortisol should be greater than or equal to 9 mcg/dL.Patients with sepsis or septicshock: According to a study by Lian et al (MITCHEL 2000,283( 8):2718-45), the ACTH Stimulation Test provides important prognostic information. This study defined 3 groups of patients with sepsis or septic shock : 1. Good Survival: Low basal cortisol (<or=34 mcg/dL) and high ACTH response (>9mcg/dL) 2. Intermediate Survival: Low basal cortisol (< 34 mcg/dL) and low response to ACTH (<or=9 mcg/dL) OR High basal cortisol (>34 mcg/dL) or high ACTH response (>9 mcg/dL) 3.Poor Survival: High basal cortisol (>34 mcg/dL) and low ACTH response (<or=9 mcg/dL) .Treatment of patients with relative adrenal dysfunction may be indicated based on test results and the clinical condition of the patient. Additional information, including treatment recommendations, is available in critically ill patients, approved by the Pharmacy, Nutrition, and Therapeutics Committee on 04/22/2004 and available through the Pharmacy Policy and Procedure Section on The Source.Do not run this test if systemic hydrocortisone, methylprednisolone, prednisolone or prednisone has been administered within the past 24 hours. Draw baseline cortisol level just prior to cosyntropin administration. Administer cosyntropin 0.25 mg diluted in 2-5 mL of normal saline slow IV Push over a period of 2 minutes. Draw serum cortisol level 30 minutes after cosyntropin administration. Draw serum cortisollevel 60 minutes after cosyntropin administration.CORTISOL,30 [id number] 14:46:00 Test Item Value Reference Range Comments CORTISOL BASELINE NETWORKED (BEAKER) (test 13.6 mcg/dL xvok=5204) CORTISOL, 30 MINUTE (BEAKER) (test sooq=3990) 16.7 ug/dL ACTH STIMULATION TEST INTERPRETATION GUIDELINES(Synonyms: Cortrosyn Test, Cosyntropin or Corticotropin Stimulation Test)Adenocorticotropic hormone (ACTH) is a tropic hormone, made in the pituitary gland, which travels trhough the bloodstream and stimulates the cortex of the adrenal glands to release cortisol. Cortisol is a primary hormone, which aids the body's metabolism of fats, carbohydrates, and protein as well as sodium and potassium regulation.ACTH Stimulation Test: Exogenous administrationof biologically active ACTH stimulates the secretion of cortisol from the adrenal gland. This test is used to evaluate adrenal function by measuring cortisol levels at baseline and at 30 and 60 minutesafter the administration of 250 micrograms of cosyntropin (Cortrosyn). Patients who have received exogenous corticosteroids immediately prior to performing the ACTH Stimulation Test will often have elevated baseline cortisol levels, which may lead to erroneous interpretation of test results. The notable exception is with dexamethasone.Normal Response: An increase in cortisol after stimulation by ACTHis normal. Post-stimulation cortisol concentration should be greater than 20 mcg/dL or the rate of rise from baseline cortisol should be greater than or equal to 9 mcg/dL.Patients with sepsis or septicshock: According to a study by Lian et al (MITCHEL 2000,283( 8):8136-07), the ACTH Stimulation Test provides important prognostic information. This study defined 3 groups of patients with sepsis or septic shock : 1. Good Survival: Low basal cortisol (<or=34 mcg/dL) and high ACTH response (>9mcg/dL) 2. Intermediate Survival: Low basal cortisol (< 34 mcg/dL) and low response to ACTH (<or=9 mcg/dL) OR High basal cortisol (>34 mcg/dL) or high ACTH response (>9 mcg/dL) 3.Poor Survival: High basal cortisol (>34 mcg/dL) and low ACTH response (<or=9 mcg/dL) .Treatment of patients with relative adrenal dysfunction may be indicated based on test results and the clinical condition of the patient. Additional information, including treatment recommendations, is available in critically ill patients, approved by the Pharmacy, Nutrition, and Therapeutics Committee on 04/22/2004 and available through the Pharmacy Policy and Procedure Section on [employer] Source.Do not run this test if systemic hydrocortisone, methylprednisolone, prednisolone or prednisone has been administered within the past 24 hours. Draw baseline cortisol level just prior to cosyntropin administration. Administer cosyntropin 0.25 mg diluted in 2-5 mL of normal saline slow IV Push over a period of 2 minutes. Draw serum cortisol level 30 minutes after cosyntropin administration. Draw serum cortisollevel 60 minutes after cosyntropin administration.CORTISOL,[id number] 14:05:00 Test Item Value Reference Range Comments CORTISOL, BASELINE (FRANCISCO) (test bero=0041) 13.6 ug/dL ACTH STIMULATION TEST INTERPRETATION GUIDELINES(Synonyms: Cortrosyn Test, Cosyntropin or Corticotropin Stimulation Test)Adenocorticotropic hormone (ACTH) is a tropic hormone, made in the pituitary gland, which travels trhough the bloodstream and stimulates the cortex of the adrenal glands to release cortisol. Cortisol is a primary hormone, which aids the body's metabolism of fats, carbohydrates, and protein as well as sodium and potassium regulation.ACTH Stimulation Test: Exogenous administrationof biologically active ACTH stimulates the secretion of cortisol from the adrenal gland. This test is used to evaluate adrenal function by measuring cortisol levels at baseline and at 30 and 60 minutesafter the administration of 250 micrograms of cosyntropin (Cortrosyn). Patients who have received exogenous corticosteroids immediately prior to performing the ACTH Stimulation Test will often have elevated baseline cortisol levels, which may lead to erroneous interpretation of test results. The notable exception is with dexamethasone.Normal Response: An increase in cortisol after stimulation by ACTHis normal. Post-stimulation cortisol concentration should be greater than 20 mcg/dL or the rate of rise from baseline cortisol should be greater than or equal to 9 mcg/dL.Patients with sepsis or septicshock: According to a study by Lian et al (MITCHEL 2000,283( 8):4660-45), the ACTH Stimulation Test provides important prognostic information. This study defined 3 groups of patients with sepsis or septic shock : 1. Good Survival: Low basal cortisol (<or=34 mcg/dL) and high ACTH response (>9mcg/dL) 2. Intermediate Survival: Low basal cortisol (< 34 mcg/dL) and low response to ACTH (<or=9 mcg/dL) OR High basal cortisol (>34 mcg/dL) or high ACTH response (>9 mcg/dL) 3.Poor Survival: High basal cortisol (>34 mcg/dL) and low ACTH response (<or=9 mcg/dL) .Treatment of patients with relative adrenal dysfunction may be indicated based on test results and the clinical condition of the patient. Additional information, including treatment recommendations, is available in critically ill patients, approved by the Pharmacy, Nutrition, and Therapeutics Committee on 04/22/2004 and available through the Pharmacy Policy and Procedure Section on The Source.Do not run this test if systemic hydrocortisone, methylprednisolone, prednisolone or prednisone has been administered within the past 24 hours. Draw baseline cortisol level just prior to cosyntropin administration. Administer cosyntropin 0.25 mg diluted in 2-5 mL of normal saline slow IV Push over a period of 2 minutes. Draw serum cortisol level 30 minutes after cosyntropin administration. Draw serum cortisollevel 60 minutes after cosyntropin administration.POCT-GLUCOSE [id number] 12:04:00 Test Item Value Reference Range Comments POC-GLUCOSE METER (BEAKER) 162 mg/dL 70-110 TESTED AT [facility] [address] (test cpig=[id number]) [facility] [address] CBC W/PLT COUNT & AUTO [id number] 09:35:00 Test Item Value Reference Range Comments WHITE BLOOD CELL COUNT (BEAKER) (test dvss=188) 12.3 K/ L 3.5-10.5 RED BLOOD CELL COUNT (BEAKER) (test swov=883) 2.39 M/ L 4.63-6.08 HEMOGLOBIN (BEAKER) (test kyuh=982) 7.3 GM/DL 13.7-17.5 HEMATOCRIT (BEAKER) (test hvxe=393) 23.2 % 40.1-51.0 MEAN CORPUSCULAR VOLUME (BEAKER) (test yjdp=413) 97.1 fL 79.0-92.2 MEAN CORPUSCULAR HEMOGLOBIN (BEAKER) (test 30.5 pg 25.7-32.2 whlj=765) MEAN CORPUSCULAR HEMOGLOBIN CONC (BEAKER) (test 31.5 GM/DL 32.3-36.5 nhtd=086) RED CELL DISTRIBUTION WIDTH (BEAKER) (test 23.9 % 11.6-14.4 hmox=301) PLATELET COUNT (BEAKER) (test ibts=768) 42 K/CU MM 150-450 MEAN PLATELET VOLUME (BEAKER) (test xcyh=159) 10.5 fL 9.4-12.4 NUCLEATED RED BLOOD CELLS (BEAKER) (test 1 /100 WBC 0-0 ehho=393) (CELLAVISION MANUAL DIFF)2018-02-01 09:35:00 Test Item Value Reference Range Comments NEUTROPHILS - REL (CELLAVISION)(BEAKER) (test 81 % msej=5060) LYMPHOCYTES - REL (CELLAVISION)(BEAKER) (test 9 % gtds=0521) MONOCYTES - REL (CELLAVISION)(BEAKER) (test 6 % mjsu=3930) EOSINOPHILS - REL (CELLAVISION)(BEAKER) (test 1 % yztg=2338) BASOPHILS - REL (CELLAVISION)(BEAKER) (test 1 % yaag=3065) BANDS - REL (CELLAVISION)(BEAKER) (test 2 % 0-10 kses=8681) NEUTROPHILS - ABS (CELLAVISION)(BEAKER) (test 9.96 K/ul 1.78-5.38 etgv=2644) LYMPHOCYTES - ABS (CELLAVISION)(BEAKER) (test 1.11 K/ul 1.32-3.57 nenl=8589) MONOCYTES - ABS (CELLAVISION)(BEAKER) (test 0.74 K/uL 0.30-0.82 nrsq=5162) EOSINOPHILS - ABS (CELLAVISION)(BEAKER) (test 0.12 K/uL 0.04-0.54 lymh=6569) BASOPHILS - ABS (CELLAVISION)(BEAKER) (test 0.12 K/uL 0.01-0.08 yypp=0067) BANDS - ABS (CELLAVISION)(BEAKER) (test 0.25 K/uL 0.00-0.80 nhpt=4428) TOTAL COUNTED (BEAKER) (test fvpo=6110) 100 MANUAL NRBC PER 100 CELLS (BEAKER) (test 1 /100 WBC 0-0 iphj=6379) WBC MORPHOLOGY (BEAKER) (test fpcm=324) Normal PLT MORPHOLOGY (BEAKER) (test qwtp=129) Normal POLYCHROMATOPHILLIC RBCS(BEAKER) (test qtqc=604) 2+ moderate ANISOCYTOSIS (BEAKER) (test rgmr=957) 2+ moderate POIKILOCYTES (BEAKER) (test lsfe=011) 2+ moderate ARTIFACT (CELLAVISION)(BEAKER) (test kgbi=2542) Present PLATELET CONCENTRATION (CELLAVISION)(BEAKER) Decreased (test vhmw=6628) Received comment: User comments: Slide comments:SPUTUM CULTURE + GRAM [id number] 08:18:00 Test Item Value Reference Range Comments CULTURE (BEAKER) (test kcbc=9592) See comment GRAM STAIN RESULT (BEAKER) (test 1+ WBCs xlpx=9762) GRAM STAIN RESULT (BEAKER) (test 5-10 epithelial cells mzci=749596) GRAM STAIN RESULT (BEAKER) (test <1+ gram positive rods vnox=986865) GRAM STAIN RESULT (BEAKER) (test <1+ budding yeast xpvb=722709) 2+ YeastNo Normal respiratory kody [id number] 08:14:00 Test Item Value Reference Range Comments PHOSPHORUS (BEAKER) (test adog=127) 3.0 mg/dL 2.3-4.7 [id number] 08:14:00 Test Item Value Reference Range Comments MAGNESIUM (BEAKER) (test nuei=307) 2.2 mg/dL 1.6-2.6 CALCIUM, [id number] 08:02:00 Test Item Value Reference Range Comments CALCIUM IONIZED (BEAKER) (test fafc=027) 1.09 mmol/L 1.12-1.27 PH, BLOOD (BEAKER) (test obun=3722) 7.52 POCT-GLUCOSE [id number] 06:12:00 Test Item Value Reference Range Comments POC-GLUCOSE METER (BEAKER) 175 mg/dL 70-110 TESTED AT [facility] [address] [facility] (test skkj=2639) [facility] [address] BLOOD [id number] 06:00:00 Test Item Value Reference Range Comments CULTURE (BEAKER) (test abuc=4217) No growth in 5 days BLOOD [id number] 06:00:00 Test Item Value Reference Range Comments CULTURE (BEAKER) (test ndug=0261) No growth in 5 days CRYPTOCOCCAL [id number] 05:09:00 Test Item Value Reference Range Comments CRYPTOCOCCAL ANTIGEN, SERUM (BEAKER) (test Negative Negative, Interference xulq=2196) COMPREHENSIVE METABOLIC [id number] 04:26:00 Test Item Value Reference Range Comments TOTAL PROTEIN (BEAKER) 5.2 gm/dL 6.0-8.3 (test uijn=456) ALBUMIN (BEAKER) (test 2.1 g/dL 3.5-5.0 ppoi=4481) ALKALINE PHOSPHATASE 395 U/L 40-150 (BEAKER) (test lkmb=974) BILIRUBIN TOTAL (BEAKER) 16.5 mg/dL 0.2-1.2 (test zhvl=900) SODIUM (BEAKER) (test 151 meq/L 136-145 kegn=382) POTASSIUM (BEAKER) (test 3.5 meq/L 3.5-5.1 flyy=818) CHLORIDE (BEAKER) (test 118 meq/L 98-107 pufw=911) CO2 (BEAKER) (test 27 meq/L 22-29 jpbm=265) BLOOD UREA NITROGEN 54 mg/dL 7-21 (BEAKER) (test sjkq=994) CREATININE (BEAKER) (test 1.95 mg/dL 0.57-1.25 oaqn=597) GLUCOSE RANDOM (BEAKER) 147 mg/dL 70-105 (test ixjt=695) CALCIUM (BEAKER) (test 7.8 mg/dL 8.4-10.2 inmg=697) AST (SGOT) (BEAKER) (test 310 U/L 5-34 mytg=364) ALT (SGPT) (BEAKER) (test 216 U/L 6-55 qrxn=665) EGFR (BEAKER) (test 36 mL/min/1.73 sq m ESTIMATED GFR IS NOT kvlj=7727) ACCURATE CREATININE CLEARANCE IN PREDICTING GLOMERULAR FILTRATION RATE. ESTIMATED GFR IS NOT APPLICABLE FOR DIALYSIS PATIENTS. Specimen markedly [id number] 04:05:00 Test Item Value Reference Range Comments PHOSPHORUS (BEAKER) (test znfk=597) 3.2 mg/dL 2.3-4.7 [id number] 04:05:00 Test Item Value Reference Range Comments MAGNESIUM (BEAKER) (test jkct=075) 1.6 mg/dL 1.6-2.6 LACTIC ACID, VENOUS, WHOLE [id number] 03:58:00 Test Item Value Reference Range Comments LACTATE BLOOD VENOUS (2) (BEAKER) (test 1.2 mmol/L 0.5-2.2 ydqr=7102) Effective 09/15/2015: Units/Reference Range ChangeNew: 0.5-2.2 mmol/L Previous: 5 -20 mg/dLSpecimen markedly ictericPROTHROMBIN [id number] 03:56:00 Test Item Value Reference Range Comments PROTIME (BEAKER) (test jzdy=538) 26.0 seconds 11.7-14.7 INR (BEAKER) (test iqgx=695) 2.4 <=5.9 RECOMMENDED COUMADIN/WARFARIN INR THERAPY RANGESSTANDARD DOSE: 2.0 - 3.0 Includes: PROPHYLAXIS forvenous thrombosis, systemic embolization; TREATMENT for venous thrombosis and/or pulmonary embolus.HIGH RISK: Target INR is 2.5-3.5 for patients with mechanical heart valves.BLOOD GAS, [id number] 03:50:00 Test Item Value Reference Range Comments PH VENOUS (BEAKER) (test lnqz=272) 7.50 7.32-7.42 PCO2 VENOUS (BEAKER) (test freb=302) 37 mmHg 41-51 PO2 VENOUS (BEAKER) (test wwog=119) 43 mmHg 25-40 O2 SATURATION VENOUS (BEAKER) (test hnlk=808) 79.9 % 40.0-70.0 HCO3 VENOUS (BEAKER) (test ttuf=267) 28 mmol/L 21-29 BASE EXCESS VENOUS (BEAKER) (test vhbc=196) 4.8 mmol/L -2.0-3.0 PATIENT TEMPERATURE (BEAKER) (test lehu=7953) 38.4 C FIO2 (BEAKER) (test vgce=9664) 30.0 % POCT-GLUCOSE [id number] 00:22:00 Test Item Value Reference Range Comments POC-GLUCOSE METER (BEAKER) 155 mg/dL 70-110 TESTED AT [facility] [address] [facility] (test fyia=4171) [facility] [address] [id number] 21:11:00 Test Item Value Reference Range Comments PHOSPHORUS (BEAKER) (test hwtq=021) 2.7 mg/dL 2.3-4.7 [id number] 21:11:00 Test Item Value Reference Range Comments MAGNESIUM (BEAKER) (test vvte=707) 1.8 mg/dL 1.6-2.6 CALCIUM, [id number] 20:38:00 Test Item Value Reference Range Comments CALCIUM IONIZED (BEAKER) (test iath=523) 1.09 mmol/L 1.12-1.27 PH, BLOOD (BEAKER) (test aytq=7103) 7.52 CBC W/PLT COUNT & AUTO [id number] 16:21:00 Test Item Value Reference Range Comments WHITE BLOOD CELL COUNT (BEAKER) (test ilwp=381) 10.5 K/ L 3.5-10.5 RED BLOOD CELL COUNT (BEAKER) (test usxy=823) 2.41 M/ L 4.63-6.08 HEMOGLOBIN (BEAKER) (test ztik=077) 7.6 GM/DL 13.7-17.5 HEMATOCRIT (BEAKER) (test kjxd=143) 23.2 % 40.1-51.0 MEAN CORPUSCULAR VOLUME (BEAKER) (test oiyd=858) 96.3 fL 79.0-92.2 MEAN CORPUSCULAR HEMOGLOBIN (BEAKER) (test 31.5 pg 25.7-32.2 dinz=101) MEAN CORPUSCULAR HEMOGLOBIN CONC (BEAKER) (test 32.8 GM/DL 32.3-36.5 fbws=193) RED CELL DISTRIBUTION WIDTH (BEAKER) (test 22.7 % 11.6-14.4 bjtz=293) PLATELET COUNT (BEAKER) (test lnnd=844) 39 K/CU MM 150-450 MEAN PLATELET VOLUME (BEAKER) (test qiqx=763) 10.1 fL 9.4-12.4 NUCLEATED RED BLOOD CELLS (BEAKER) (test 2 /100 WBC 0-0 fsyn=634) (CELLAVISION MANUAL DIFF)2018-01-31 16:21:00 Test Item Value Reference Range Comments NEUTROPHILS - REL (CELLAVISION)(BEAKER) (test 79 % bxon=8123) LYMPHOCYTES - REL (CELLAVISION)(BEAKER) (test 4 % hncp=2703) MONOCYTES - REL (CELLAVISION)(BEAKER) (test 12 % hqwf=1467) EOSINOPHILS - REL (CELLAVISION)(BEAKER) (test 2 % lund=3390) METAMYELOCYTES - REL (CELLAVISION)(BEAKER) (test 1 % 0-0 bvbs=9469) BANDS - REL (CELLAVISION)(BEAKER) (test cpmd=3165) 1 % 0-10 NEUTROPHILS - ABS (CELLAVISION)(BEAKER) (test 8.30 K/ul 1.78-5.38 jkwn=4065) LYMPHOCYTES - ABS (CELLAVISION)(BEAKER) (test 0.42 K/ul 1.32-3.57 qjav=2000) MONOCYTES - ABS (CELLAVISION)(BEAKER) (test 1.26 K/uL 0.30-0.82 lddx=2268) EOSINOPHILS - ABS (CELLAVISION)(BEAKER) (test 0.21 K/uL 0.04-0.54 hcop=6367) METAMYELOCYTES - ABS (CELLAVISION)(BEAKER) (test 0.11 K/uL 0.00-0.00 rmnm=9378) BANDS - ABS (CELLAVISION)(BEAKER) (test szqt=0631) 0.11 K/uL 0.00-0.80 TOTAL COUNTED (BEAKER) (test fpew=7556) 100 PLT MORPHOLOGY (BEAKER) (test onqk=733) Normal SMUDGE CELLS (BEAKER) (test gikv=1888) Present PLASMACYTOID LYMPHS(BEAKER) (test ozbd=4483) Present POLYCHROMATOPHILLIC RBCS(BEAKER) (test tult=978) 1+ few ANISOCYTOSIS (BEAKER) (test ssjr=079) 1+ few MACROCYTES (BEAKER) (test iubh=775) 1+ few POIKILOCYTES (BEAKER) (test wlnk=098) 1+ few TARGET CELLS (BEAKER) (test geng=516) 1+ few BASOPHILIC STIPPLING (BEAKER) (test hfxy=149) Present HELMET CELLS (CELLAVISION)(BEAKER) (test 1+ few zphn=5460) PLATELET CONCENTRATION (CELLAVISION)(BEAKER) (test Decreased vvqj=7804) Received comment: User comments: Slide comments:BASIC METABOLIC [id number] 16:10:00 Test Item Value Reference Range Comments SODIUM (BEAKER) (test 148 meq/L 136-145 favb=233) POTASSIUM (BEAKER) (test 3.6 meq/L 3.5-5.1 idgu=400) CHLORIDE (BEAKER) (test 115 meq/L 98-107 rjbq=313) CO2 (BEAKER) (test 25 meq/L 22-29 feii=384) BLOOD UREA NITROGEN 56 mg/dL 7-21 (BEAKER) (test jxol=070) CREATININE (BEAKER) (test 2.06 mg/dL 0.57-1.25 wjog=838) GLUCOSE RANDOM (BEAKER) 139 mg/dL 70-105 (test nnlb=649) CALCIUM (BEAKER) (test 7.8 mg/dL 8.4-10.2 pnfg=338) EGFR (BEAKER) (test 34 mL/min/1.73 sq m ESTIMATED GFR IS NOT tbad=4727) ACCURATE CREATININE CLEARANCE IN PREDICTING GLOMERULAR FILTRATION RATE. ESTIMATED GFR IS NOT APPLICABLE FOR DIALYSIS PATIENTS. Specimen markedly ictericLACTIC ACID, VENOUS, WHOLE [id number] 16:05:00 Test Item Value Reference Range Comments LACTATE BLOOD VENOUS (2) (BEAKER) (test 1.2 mmol/L 0.5-2.2 njgj=7851) Effective 09/15/2015: Units/Reference Range ChangeNew: 0.5-2.2 mmol/L Previous: 5 -20 mg/dLSpecimen markedly ictericCALCIUM, [id number] 15:53:00 Test Item Value Reference Range Comments CALCIUM IONIZED (BEAKER) (test akrr=904) 0.83 mmol/L 1.12-1.27 PH, BLOOD (BEAKER) (test zius=5790) 7.52 C. DIFFICILE GDH [id number] 12:08:00 Test Item Value Reference Range Comments CDT TOXIN (test Negative Negative leot=[id number]) CDT GDH ANTIGEN (test Negative Negative No indication of Clostridium qele=[id number]) difficile infection and no colonization. Discontinue enteric isolation and therapy. Testing performed by [employer] Rapid Cassette Assay. For GDH, published sensitivity of the assay is 98.7% compared to cytotoxicity testing. For Toxin AB, published sensitivity is 87.8% and specificity 99.4% compared to cytotoxicity testing.Verification of kit performance was done by the [facility] Microbiology Lab prior to clinical use.CBC W/PLT COUNT & AUTO [id number] 12:08:00 Test Item Value Reference Range Comments WHITE BLOOD CELL COUNT (BEAKER) (test dleu=063) 10.2 K/ L 3.5-10.5 RED BLOOD CELL COUNT (BEAKER) (test rqqy=316) 2.48 M/ L 4.63-6.08 HEMOGLOBIN (BEAKER) (test sqio=084) 7.7 GM/DL 13.7-17.5 HEMATOCRIT (BEAKER) (test sxcj=807) 23.5 % 40.1-51.0 MEAN CORPUSCULAR VOLUME (BEAKER) (test ykqw=759) 94.8 fL 79.0-92.2 MEAN CORPUSCULAR HEMOGLOBIN (BEAKER) (test 31.0 pg 25.7-32.2 welf=030) MEAN CORPUSCULAR HEMOGLOBIN CONC (BEAKER) (test 32.8 GM/DL 32.3-36.5 vnpe=326) RED CELL DISTRIBUTION WIDTH (BEAKER) (test 21.7 % 11.6-14.4 ofns=573) PLATELET COUNT (BEAKER) (test trud=836) 43 K/CU MM 150-450 MEAN PLATELET VOLUME (BEAKER) (test dcod=438) 10.9 fL 9.4-12.4 NUCLEATED RED BLOOD CELLS (BEAKER) (test 3 /100 WBC 0-0 lzei=462) (CELLAVISION MANUAL DIFF)2018-01-31 12:08:00 Test Item Value Reference Range Comments NEUTROPHILS - REL (CELLAVISION)(BEAKER) (test 68 % kgpr=0232) LYMPHOCYTES - REL (CELLAVISION)(BEAKER) (test 9 % eegw=5772) MONOCYTES - REL (CELLAVISION)(BEAKER) (test 16 % afzd=2263) MYELOCYTES - REL (CELLAVISION)(BEAKER) (test 2 % 0-0 goau=3404) BANDS - REL (CELLAVISION)(BEAKER) (test 5 % 0-10 xmro=3542) NEUTROPHILS - ABS (CELLAVISION)(BEAKER) (test 6.94 K/ul 1.78-5.38 qcbd=3697) LYMPHOCYTES - ABS (CELLAVISION)(BEAKER) (test 0.92 K/ul 1.32-3.57 vakp=8157) MONOCYTES - ABS (CELLAVISION)(BEAKER) (test 1.63 K/uL 0.30-0.82 abyk=0609) MYELOCYTES-ABS (CELLAVISION)(BEAKER) (test 0.20 K/uL 0.00-0.00 konp=4259) BANDS - ABS (CELLAVISION)(BEAKER) (test 0.51 K/uL 0.00-0.80 httj=9585) TOTAL COUNTED (BEAKER) (test fqse=9405) 100 MANUAL NRBC PER 100 CELLS (BEAKER) (test 4 /100 WBC 0-0 hwyb=0313) WBC MORPHOLOGY (BEAKER) (test yvsc=098) Normal PLT MORPHOLOGY (BEAKER) (test svsk=058) Normal POLYCHROMATOPHILLIC RBCS(BEAKER) (test tgvc=889) 1+ few TARGET CELLS (BEAKER) (test ivic=016) 1+ few ARTIFACT (CELLAVISION)(BEAKER) (test bsnm=8658) Present PLATELET CONCENTRATION (CELLAVISION)(BEAKER) Decreased (test norf=1120) Received comment: User comments: Slide comments:BLOOD GAS, [id number] 11: 59:00 Test Item Value Reference Range Comments PH VENOUS (BEAKER) (test hssr=096) 7.53 7.32-7.42 PCO2 VENOUS (BEAKER) (test uzhm=035) 36 mmHg 41-51 PO2 VENOUS (BEAKER) (test ownb=074) 35 mmHg 25-40 O2 SATURATION VENOUS (BEAKER) (test dfeo=426) 75.9 % 40.0-70.0 HCO3 VENOUS (BEAKER) (test kcmj=002) 30 mmol/L 21-29 BASE EXCESS VENOUS (BEAKER) (test dmpu=430) 6.6 mmol/L -2.0-3.0 PATIENT TEMPERATURE (BEAKER) (test qqsl=5083) 36.7 C FIO2 (BEAKER) (test srwk=4508) 30.0 % POCT-GLUCOSE [id number] 11:53:00 Test Item Value Reference Range Comments POC-GLUCOSE METER (BEAKER) 98 mg/dL 70-110 TESTED AT [facility] [address] [facility] (test ores=6732) [facility] [address] BASIC METABOLIC [id number] 08:49:00 Test Item Value Reference Range Comments SODIUM (BEAKER) (test 147 meq/L 136-145 osyb=449) POTASSIUM (BEAKER) (test 3.5 meq/L 3.5-5.1 kjkz=347) CHLORIDE (BEAKER) (test 114 meq/L 98-107 wigq=712) CO2 (BEAKER) (test 28 meq/L 22-29 vznv=565) BLOOD UREA NITROGEN 58 mg/dL 7-21 (BEAKER) (test ftrk=929) CREATININE (BEAKER) (test 2.29 mg/dL 0.57-1.25 kuac=591) GLUCOSE RANDOM (BEAKER) 149 mg/dL 70-105 (test risg=812) CALCIUM (BEAKER) (test 7.8 mg/dL 8.4-10.2 zigq=395) EGFR (BEAKER) (test 30 mL/min/1.73 sq m ESTIMATED GFR IS NOT xgti=2568) ACCURATE CREATININE CLEARANCE IN PREDICTING GLOMERULAR FILTRATION RATE. ESTIMATED GFR IS NOT APPLICABLE FOR DIALYSIS PATIENTS. Specimen markedly [id number] 08:46:00 Test Item Value Reference Range Comments PHOSPHORUS (BEAKER) (test syrq=208) 2.6 mg/dL 2.3-4.7 [id number] 08:46:00 Test Item Value Reference Range Comments MAGNESIUM (BEAKER) (test lioe=458) 2.0 mg/dL 1.6-2.6 CALCIUM, [id number] 08:18:00 Test Item Value Reference Range Comments CALCIUM IONIZED (BEAKER) (test ujhi=091) 1.08 mmol/L 1.12-1.27 PH, BLOOD (BEAKER) (test knne=2893) 7.52 PROTHROMBIN [id number] 06:58:00 Test Item Value Reference Range Comments PROTIME (BEAKER) (test gvaz=459) 29.8 seconds 11.7-14.7 INR (BEAKER) (test uonp=228) 2.8 <=5.9 RECOMMENDED COUMADIN/WARFARIN INR THERAPY RANGESSTANDARD DOSE: 2.0 - 3.0 Includes: PROPHYLAXIS forvenous thrombosis, systemic embolization; TREATMENT for venous thrombosis and/or pulmonary embolus.HIGH RISK: Target INR is 2.5-3.5 for patients with mechanical heart valves.POCT-GLUCOSE [id number] 06:31:00 Test Item Value Reference Range Comments POC-GLUCOSE METER (BEAKER) 167 mg/dL 70-110 TESTED AT [facility] [address] [facility] (test jbam=9162) [facility] [address] [id number] 04:46:00 Test Item Value Reference Range Comments PHOSPHORUS (BEAKER) (test eooa=749) 2.6 mg/dL 2.3-4.7 [id number] 04:46:00 Test Item Value Reference Range Comments MAGNESIUM (BEAKER) (test wbns=778) 1.9 mg/dL 1.6-2.6 HEPATIC FUNCTION [id number] 04:46:00 Test Item Value Reference Range Comments TOTAL PROTEIN (BEAKER) (test hzur=227) 5.3 gm/dL 6.0-8.3 ALBUMIN (BEAKER) (test lxwv=6348) 2.3 g/dL 3.5-5.0 BILIRUBIN TOTAL (BEAKER) (test ehxr=088) 15.9 mg/dL 0.2-1.2 BILIRUBIN DIRECT (BEAKER) (test losl=923) 10.5 mg/dL 0.1-0.5 ALKALINE PHOSPHATASE (BEAKER) (test hpdu=742) 482 U/L 40-150 AST (SGOT) (BEAKER) (test talb=226) 447 U/L 5-34 ALT (SGPT) (BEAKER) (test npai=408) 307 U/L 6-55 Specimen markedly ictericCOMPREHENSIVE METABOLIC [id number] 04:46:00 Test Item Value Reference Range Comments TOTAL PROTEIN (BEAKER) 5.3 gm/dL 6.0-8.3 (test hlqd=340) ALBUMIN (BEAKER) (test 2.3 g/dL 3.5-5.0 tlcd=8357) ALKALINE PHOSPHATASE 482 U/L 40-150 (BEAKER) (test htbc=942) BILIRUBIN TOTAL (BEAKER) 15.9 mg/dL 0.2-1.2 (test vudu=863) SODIUM (BEAKER) (test 146 meq/L 136-145 bzhu=395) POTASSIUM (BEAKER) (test 3.4 meq/L 3.5-5.1 pwkp=601) CHLORIDE (BEAKER) (test 111 meq/L 98-107 oxhl=059) CO2 (BEAKER) (test 28 meq/L 22-29 cfma=870) BLOOD UREA NITROGEN 59 mg/dL 7-21 (BEAKER) (test texu=879) CREATININE (BEAKER) (test 2.48 mg/dL 0.57-1.25 oyet=238) GLUCOSE RANDOM (BEAKER) 148 mg/dL 70-105 (test qqgg=167) CALCIUM (BEAKER) (test 7.9 mg/dL 8.4-10.2 cnme=212) AST (SGOT) (BEAKER) (test 447 U/L 5-34 yhrs=338) ALT (SGPT) (BEAKER) (test 307 U/L 6-55 nmrm=344) EGFR (BEAKER) (test 28 mL/min/1.73 sq m ESTIMATED GFR IS NOT jzlu=6642) ACCURATE CREATININE CLEARANCE IN PREDICTING GLOMERULAR FILTRATION RATE. ESTIMATED GFR IS NOT APPLICABLE FOR DIALYSIS PATIENTS. Specimen markedly ictericVANCOMYCIN LEVEL, [id number] 04:36:00 Test Item Value Reference Range Comments VANCOMYCIN RANDOM (BEAKER) (test zrxw=631) 22.4 ug/mL Reference Range: No NormalsLACTIC ACID, VENOUS, WHOLE [id number] 04:34:00 Test Item Value Reference Range Comments LACTATE BLOOD VENOUS (2) (BEAKER) (test 1.1 mmol/L 0.5-2.2 klse=7251) Effective 09/15/2015: Units/Reference Range ChangeNew: 0.5-2.2 mmol/L Previous: 5 -20 mg/dLSpecimen markedly ictericBLOOD GAS, [id number] 04:27:00 Test Item Value Reference Range Comments PH VENOUS (BEAKER) (test davp=087) 7.50 7.32-7.42 PCO2 VENOUS (BEAKER) (test vyao=111) 37 mmHg 41-51 PO2 VENOUS (BEAKER) (test pkbz=054) 55 mmHg 25-40 O2 SATURATION VENOUS (BEAKER) (test vais=816) 90.0 % 40.0-70.0 HCO3 VENOUS (BEAKER) (test yneh=720) 28 mmol/L 21-29 BASE EXCESS VENOUS (BEAKER) (test xjkv=328) 4.8 mmol/L -2.0-3.0 PATIENT TEMPERATURE (BEAKER) (test rqya=0277) 38.0 C FIO2 (BEAKER) (test ubtr=7752) 40.0 % CBC W/PLT COUNT & AUTO [id number] 02:46:00 Test Item Value Reference Range Comments WHITE BLOOD CELL COUNT (BEAKER) (test aqfq=572) 11.7 K/ L 3.5-10.5 RED BLOOD CELL COUNT (BEAKER) (test vqed=521) 2.60 M/ L 4.63-6.08 HEMOGLOBIN (BEAKER) (test cipw=579) 8.1 GM/DL 13.7-17.5 HEMATOCRIT (BEAKER) (test oekb=526) 24.3 % 40.1-51.0 MEAN CORPUSCULAR VOLUME (BEAKER) (test rhfj=674) 93.5 fL 79.0-92.2 MEAN CORPUSCULAR HEMOGLOBIN (BEAKER) (test 31.2 pg 25.7-32.2 hpbw=698) MEAN CORPUSCULAR HEMOGLOBIN CONC (BEAKER) (test 33.3 GM/DL 32.3-36.5 doba=829) RED CELL DISTRIBUTION WIDTH (BEAKER) (test 21.2 % 11.6-14.4 btox=012) PLATELET COUNT (BEAKER) (test emla=509) 55 K/CU MM 150-450 MEAN PLATELET VOLUME (BEAKER) (test akxv=357) 10.4 fL 9.4-12.4 NUCLEATED RED BLOOD CELLS (BEAKER) (test 5 /100 WBC 0-0 qybo=920) (CELLAVISION MANUAL DIFF)2018-01-31 02:46:00 Test Item Value Reference Range Comments NEUTROPHILS - REL (CELLAVISION)(BEAKER) (test 54 % zvnj=3523) LYMPHOCYTES - REL (CELLAVISION)(BEAKER) (test 10 % buwe=4066) MONOCYTES - REL (CELLAVISION)(BEAKER) (test 11 % lixm=0029) METAMYELOCYTES - REL (CELLAVISION)(BEAKER) (test 3 % 0-0 lrft=9587) MYELOCYTES - REL (CELLAVISION)(BEAKER) (test 8 % 0-0 iwjd=3882) BANDS - REL (CELLAVISION)(BEAKER) (test 13 % 0-10 hlkc=9321) NEUTROPHILS - ABS (CELLAVISION)(BEAKER) (test 6.32 K/ul 1.78-5.38 uprr=4769) LYMPHOCYTES - ABS (CELLAVISION)(BEAKER) (test 1.17 K/ul 1.32-3.57 ykvl=4942) MONOCYTES - ABS (CELLAVISION)(BEAKER) (test 1.29 K/uL 0.30-0.82 kgwj=7284) METAMYELOCYTES - ABS (CELLAVISION)(BEAKER) (test 0.35 K/uL 0.00-0.00 tkph=3885) MYELOCYTES-ABS (CELLAVISION)(BEAKER) (test 0.94 K/uL 0.00-0.00 qoxj=7879) BANDS - ABS (CELLAVISION)(BEAKER) (test 1.52 K/uL 0.00-0.80 ljbg=8018) TOTAL COUNTED (BEAKER) (test bzgl=7523) 100 MANUAL NRBC PER 100 CELLS (BEAKER) (test 4 /100 WBC 0-0 dpmf=3003) SMUDGE CELLS (BEAKER) (test poye=2770) Present GIANT PLATELETS (BEAKER) (test aerw=310) Present POLYCHROMATOPHILLIC RBCS(BEAKER) (test dakt=744) 1+ few ANISOCYTOSIS (BEAKER) (test zhzs=466) 2+ moderate MACROCYTES (BEAKER) (test vsjj=829) 1+ few POIKILOCYTES (BEAKER) (test uovg=920) 1+ few ARTIFACT (CELLAVISION)(BEAKER) (test vvom=7303) Present PLATELET CONCENTRATION (CELLAVISION)(BEAKER) Decreased (test otav=0288) Received comment: User comments: Slide comments:BASIC METABOLIC [id number] 01:59:00 Test Item Value Reference Range Comments SODIUM (BEAKER) (test 144 meq/L 136-145 ufqj=996) POTASSIUM (BEAKER) (test 3.1 meq/L 3.5-5.1 ugyr=017) CHLORIDE (BEAKER) (test 109 meq/L 98-107 yrto=356) CO2 (BEAKER) (test 27 meq/L 22-29 fqpn=143) BLOOD UREA NITROGEN 57 mg/dL 7-21 (BEAKER) (test vnbl=649) CREATININE (BEAKER) (test 2.50 mg/dL 0.57-1.25 txxf=107) GLUCOSE RANDOM (BEAKER) 113 mg/dL 70-105 (test etpy=730) CALCIUM (BEAKER) (test 8.1 mg/dL 8.4-10.2 cldf=240) EGFR (BEAKER) (test 27 mL/min/1.73 sq m ESTIMATED GFR IS NOT qplf=5359) ACCURATE CREATININE CLEARANCE IN PREDICTING GLOMERULAR FILTRATION RATE. ESTIMATED GFR IS NOT APPLICABLE FOR DIALYSIS PATIENTS. Specimen markedly ictericCALCIUM, [id number] 01:00:00 Test Item Value Reference Range Comments CALCIUM IONIZED (BEAKER) (test rpnu=328) 1.08 mmol/L 1.12-1.27 PH, BLOOD (BEAKER) (test ltik=6097) 7.52 POCT-GLUCOSE [id number] 00:56:00 Test Item Value Reference Range Comments POC-GLUCOSE METER (BEAKER) 120 mg/dL 70-110 TESTED AT [facility] [address] (test eduy=4677) [facility] [id number] [id number] 21:45:00 Test Item Value Reference Range Comments PHOSPHORUS (BEAKER) (test flig=295) 2.6 mg/dL 2.3-4.7 [id number] 21:45:00 Test Item Value Reference Range Comments MAGNESIUM (BEAKER) (test eiof=128) 2.1 mg/dL 1.6-2.6 CBC W/PLT COUNT & AUTO [id number] 18:26:00 Test Item Value Reference Range Comments WHITE BLOOD CELL COUNT (BEAKER) (test lmax=037) 11.6 K/ L 3.5-10.5 RED BLOOD CELL COUNT (BEAKER) (test scjx=832) 2.50 M/ L 4.63-6.08 HEMOGLOBIN (BEAKER) (test yjoh=111) 7.7 GM/DL 13.7-17.5 HEMATOCRIT (BEAKER) (test dosn=637) 23.3 % 40.1-51.0 MEAN CORPUSCULAR VOLUME (BEAKER) (test bcyq=624) 93.2 fL 79.0-92.2 MEAN CORPUSCULAR HEMOGLOBIN (BEAKER) (test 30.8 pg 25.7-32.2 vmgp=529) MEAN CORPUSCULAR HEMOGLOBIN CONC (BEAKER) (test 33.0 GM/DL 32.3-36.5 riuh=576) RED CELL DISTRIBUTION WIDTH (BEAKER) (test 20.4 % 11.6-14.4 jqdg=840) PLATELET COUNT (BEAKER) (test xdbt=899) 49 K/CU MM 150-450 MEAN PLATELET VOLUME (BEAKER) (test epfk=275) 11.2 fL 9.4-12.4 NUCLEATED RED BLOOD CELLS (BEAKER) (test 3 /100 WBC 0-0 ulos=597) (CELLAVISION MANUAL DIFF)2018-01-30 18:26:00 Test Item Value Reference Range Comments NEUTROPHILS - REL (CELLAVISION)(BEAKER) (test 72 % ymxo=9277) LYMPHOCYTES - REL (CELLAVISION)(BEAKER) (test 5 % sqdl=2344) MONOCYTES - REL (CELLAVISION)(BEAKER) (test 10 % zuqw=4723) METAMYELOCYTES - REL (CELLAVISION)(BEAKER) (test 3 % 0-0 tbuy=8618) MYELOCYTES - REL (CELLAVISION)(BEAKER) (test 3 % 0-0 bgqi=3000) PROMYELOCYTES - REL (CELLAVSION)(BEAKER) (test 1 % 0-0 nzyq=0941) BANDS - REL (CELLAVISION)(BEAKER) (test 5 % 0-10 heai=5639) NEUTROPHILS - ABS (CELLAVISION)(BEAKER) (test 8.35 K/ul 1.78-5.38 hvtm=8702) LYMPHOCYTES - ABS (CELLAVISION)(BEAKER) (test 0.58 K/ul 1.32-3.57 mtjg=2474) MONOCYTES - ABS (CELLAVISION)(BEAKER) (test 1.16 K/uL 0.30-0.82 qitv=4118) METAMYELOCYTES - ABS (CELLAVISION)(BEAKER) (test 0.35 K/uL 0.00-0.00 zqih=0794) MYELOCYTES-ABS (CELLAVISION)(BEAKER) (test 0.35 K/uL 0.00-0.00 kebf=6892) PROMYELOCYTES - ABS (CELLAVISION)(BEAKER) (test 0.12 K/uL 0.00-0.00 tcst=4707) BANDS - ABS (CELLAVISION)(BEAKER) (test 0.58 K/uL 0.00-0.80 fwsg=3609) TOTAL COUNTED (BEAKER) (test fmkz=4134) 100 MANUAL NRBC PER 100 CELLS (BEAKER) (test 3 /100 WBC 0-0 fdhc=6046) WBC MORPHOLOGY (BEAKER) (test dgeu=914) Normal PLT MORPHOLOGY (BEAKER) (test nfqv=634) Normal POLYCHROMATOPHILLIC RBCS(BEAKER) (test orir=913) 1+ few ANISOCYTOSIS (BEAKER) (test njls=587) 1+ few MACROCYTES (BEAKER) (test vspm=793) 1+ few ROULEAUX (BEAKER) (test xaaa=608) 1+ few SCHISTOCYTES (BEAKER) (test qwnq=827) 1+ few OVALOCYTES (BEAKER) (test dvwj=673) 1+ few TEAR DROP CELLS (BEAKER) (test erhe=043) 1+ few BASOPHILIC STIPPLING (BEAKER) (test moud=554) Present ARTIFACT (CELLAVISION)(BEAKER) (test yoqa=4677) Present PLATELET CONCENTRATION (CELLAVISION)(BEAKER) Decreased (test ttmx=1608) Received comment: User comments: Slide comments:POCT-GLUCOSE [id number] 17: 47:00 Test Item Value Reference Range Comments POC-GLUCOSE METER (BEAKER) 186 mg/dL 70-110 TESTED AT [facility] [address] [facility] (test egrs=8381) [facility] [address] BASIC METABOLIC [id number] 17:30:00 Test Item Value Reference Range Comments SODIUM (BEAKER) (test 142 meq/L 136-145 htwk=065) POTASSIUM (BEAKER) (test 3.5 meq/L 3.5-5.1 vjsq=029) CHLORIDE (BEAKER) (test 109 meq/L 98-107 bpcg=876) CO2 (BEAKER) (test 26 meq/L 22-29 exjh=904) BLOOD UREA NITROGEN 50 mg/dL 7-21 (BEAKER) (test feqq=440) CREATININE (BEAKER) (test 2.68 mg/dL 0.57-1.25 sbuo=780) GLUCOSE RANDOM (BEAKER) 170 mg/dL 70-105 (test gtpc=659) CALCIUM (BEAKER) (test 8.0 mg/dL 8.4-10.2 ehoo=786) EGFR (BEAKER) (test 25 mL/min/1.73 sq m ESTIMATED GFR IS NOT ewqm=7848) ACCURATE CREATININE CLEARANCE IN PREDICTING GLOMERULAR FILTRATION RATE. ESTIMATED GFR IS NOT APPLICABLE FOR DIALYSIS PATIENTS. Specimen markedly ictericLACTIC ACID, VENOUS, WHOLE [id number] 17:26:00 Test Item Value Reference Range Comments LACTATE BLOOD VENOUS (2) 1.2 mmol/L 0.5-2.2 Specimen slightly hemolyzed (BEAKER) (test fiut=5147) Effective 09/15/2015: Units/Reference Range ChangeNew: 0.5-2.2 mmol/L Previous: 5 -20 mg/dLSpecimen markedly ictericCALCIUM, [id number] 16:37:00 Test Item Value Reference Range Comments CALCIUM IONIZED (BEAKER) (test zgzl=643) 1.08 mmol/L 1.12-1.27 PH, BLOOD (BEAKER) (test ihyj=9881) 7.50 [id number] 13:56:00 Test Item Value Reference Range Comments PROCALCITONIN (BEAKER) (test takd=7331) 2.92 ng/mL <0.05 SEPSIS RISK (ng/mL)Low: 0.05-0.50Intermediate: 0.51-2.00High: & gt;=2.01LACTIC ACID, VENOUS, WHOLE [id number] 13:42:00 Test Item Value Reference Range Comments LACTATE BLOOD VENOUS (2) (BEAKER) (test 1.2 mmol/L 0.5-2.2 roex=7761) Effective 09/15/2015: Units/Reference Range ChangeNew: 0.5-2.2 mmol/L Previous: 5 -20 mg/dLSpecimen markedly ictericPOCT-GLUCOSE [id number] 13:32:00 Test Item Value Reference Range Comments POC-GLUCOSE METER (BEAKER) 195 mg/dL 70-110 TESTED AT [address] (test xyah=2616) [facility] [address] CBC W/PLT COUNT & AUTO [id number] 12:55:00 Test Item Value Reference Range Comments WHITE BLOOD CELL COUNT (BEAKER) (test pxep=462) 11.3 K/ L 3.5-10.5 RED BLOOD CELL COUNT (BEAKER) (test fevk=639) 2.48 M/ L 4.63-6.08 HEMOGLOBIN (BEAKER) (test oymn=303) 7.7 GM/DL 13.7-17.5 HEMATOCRIT (BEAKER) (test mrcr=334) 23.2 % 40.1-51.0 MEAN CORPUSCULAR VOLUME (BEAKER) (test kddz=827) 93.5 fL 79.0-92.2 MEAN CORPUSCULAR HEMOGLOBIN (BEAKER) (test 31.0 pg 25.7-32.2 zqre=475) MEAN CORPUSCULAR HEMOGLOBIN CONC (BEAKER) (test 33.2 GM/DL 32.3-36.5 zrsb=670) RED CELL DISTRIBUTION WIDTH (BEAKER) (test 20.2 % 11.6-14.4 wgtl=834) PLATELET COUNT (BEAKER) (test emgf=504) 50 K/CU MM 150-450 MEAN PLATELET VOLUME (BEAKER) (test gsyh=269) 10.3 fL 9.4-12.4 NUCLEATED RED BLOOD CELLS (BEAKER) (test 3 /100 WBC 0-0 queq=142) (CELLAVISION MANUAL DIFF)2018-01-30 12:55:00 Test Item Value Reference Range Comments NEUTROPHILS - REL (CELLAVISION)(BEAKER) (test 67 % ktyn=0051) LYMPHOCYTES - REL (CELLAVISION)(BEAKER) (test 8 % zdgs=0777) MONOCYTES - REL (CELLAVISION)(BEAKER) (test 16 % olvw=2790) METAMYELOCYTES - REL (CELLAVISION)(BEAKER) (test 2 % 0-0 fsin=0013) MYELOCYTES - REL (CELLAVISION)(BEAKER) (test 7 % 0-0 lpea=8045) NEUTROPHILS - ABS (CELLAVISION)(BEAKER) (test 7.57 K/ul 1.78-5.38 qdyp=4355) LYMPHOCYTES - ABS (CELLAVISION)(BEAKER) (test 0.90 K/ul 1.32-3.57 yzaw=8036) MONOCYTES - ABS (CELLAVISION)(BEAKER) (test 1.81 K/uL 0.30-0.82 lprh=1465) METAMYELOCYTES - ABS (CELLAVISION)(BEAKER) (test 0.23 K/uL 0.00-0.00 kxci=0921) MYELOCYTES-ABS (CELLAVISION)(BEAKER) (test 0.79 K/uL 0.00-0.00 icqx=6553) TOTAL COUNTED (BEAKER) (test gpka=1758) 100 MANUAL NRBC PER 100 CELLS (BEAKER) (test 4 /100 WBC 0-0 cius=1385) PLT MORPHOLOGY (BEAKER) (test chsn=533) Normal SMUDGE CELLS (BEAKER) (test fpiz=2572) Present POLYCHROMATOPHILLIC RBCS(BEAKER) (test nfnm=505) 1+ few ANISOCYTOSIS (BEAKER) (test tyvr=982) 1+ few POIKILOCYTES (BEAKER) (test vlzo=027) 1+ few TARGET CELLS (BEAKER) (test awno=909) 1+ few MEG CELLS (BEAKER) (test tpfx=144) 1+ few ARTIFACT (CELLAVISION)(BEAKER) (test xixn=7412) Present PLATELET CONCENTRATION (CELLAVISION)(BEAKER) Decreased (test yxtb=2835) Received comment: User comments: Slide comments:LACTIC ACID, VENOUS, WHOLE [id number] 12:52:00 Test Item Value Reference Range Comments LACTATE BLOOD VENOUS (2) (BEAKER) (test 1.2 mmol/L 0.5-2.2 zxrz=8912) Effective 09/15/2015: Units/Reference Range ChangeNew: 0.5-2.2 mmol/L Previous: 5 -20 mg/dLSpecimen markedly ictericRAD, CHEST, 1 VIEW, NON [id number] 11:55: 00Reason for exam:->resp failureShould this be performed at the bedside?-> YesFINAL REPORT Chest one view compared to January 28, 2018 Discussion: Line/tube placement unremarkable. There is pulmonary congestion. Hazy confluent density left lung base unchanged. No gross effusion or pneumothorax. Signed: Stu Ball Verified Date/Time: 01/30/2018 11:55:56 Reading Location: [facility] Radiology Reading Room [id number] 08:39:00 Test Item Value Reference Range Comments PHOSPHORUS (BEAKER) (test wedw=426) 2.4 mg/dL 2.3-4.7 [id number] 08:39:00 Test Item Value Reference Range Comments MAGNESIUM (BEAKER) (test ntdt=298) 2.1 mg/dL 1.6-2.6 BASIC METABOLIC [id number] 08:39:00 Test Item Value Reference Range Comments SODIUM (BEAKER) (test 140 meq/L 136-145 lxyl=698) POTASSIUM (BEAKER) (test 3.7 meq/L 3.5-5.1 kkbi=891) CHLORIDE (BEAKER) (test 107 meq/L 98-107 ehmb=385) CO2 (BEAKER) (test 26 meq/L 22-29 ispk=758) BLOOD UREA NITROGEN 44 mg/dL 7-21 (BEAKER) (test shqq=581) CREATININE (BEAKER) (test 2.72 mg/dL 0.57-1.25 dqga=858) GLUCOSE RANDOM (BEAKER) 163 mg/dL 70-105 (test vcxf=004) CALCIUM (BEAKER) (test 8.1 mg/dL 8.4-10.2 thvk=521) EGFR (BEAKER) (test 25 mL/min/1.73 sq m ESTIMATED GFR IS NOT ecpo=9793) ACCURATE CREATININE CLEARANCE IN PREDICTING GLOMERULAR FILTRATION RATE. ESTIMATED GFR IS NOT APPLICABLE FOR DIALYSIS PATIENTS. Specimen markedly ictericCALCIUM, [id number] 08:19:00 Test Item Value Reference Range Comments CALCIUM IONIZED (BEAKER) (test gsfc=141) 1.10 mmol/L 1.12-1.27 PH, BLOOD (BEAKER) (test korx=9483) 7.51 CBC W/PLT COUNT & AUTO [id number] 08:05:00 Test Item Value Reference Range Comments WHITE BLOOD CELL COUNT (BEAKER) (test yqmj=320) 9.6 K/ L 3.5-10.5 RED BLOOD CELL COUNT (BEAKER) (test opsz=608) 2.45 M/ L 4.63-6.08 HEMOGLOBIN (BEAKER) (test srge=028) 7.5 GM/DL 13.7-17.5 HEMATOCRIT (BEAKER) (test gtya=973) 22.8 % 40.1-51.0 MEAN CORPUSCULAR VOLUME (BEAKER) (test aage=655) 93.1 fL 79.0-92.2 MEAN CORPUSCULAR HEMOGLOBIN (BEAKER) (test 30.6 pg 25.7-32.2 fjxo=307) MEAN CORPUSCULAR HEMOGLOBIN CONC (BEAKER) (test 32.9 GM/DL 32.3-36.5 qiiu=186) RED CELL DISTRIBUTION WIDTH (BEAKER) (test 19.4 % 11.6-14.4 tgqv=867) PLATELET COUNT (BEAKER) (test dzjg=409) 44 K/CU MM 150-450 MEAN PLATELET VOLUME (BEAKER) (test fzns=412) 10.1 fL 9.4-12.4 NUCLEATED RED BLOOD CELLS (BEAKER) (test 2 /100 WBC 0-0 pqbn=903) (CELLAVISION MANUAL DIFF)2018-01-30 08:05:00 Test Item Value Reference Range Comments NEUTROPHILS - REL (CELLAVISION)(BEAKER) (test 66 % ysfa=1831) LYMPHOCYTES - REL (CELLAVISION)(BEAKER) (test 6 % rfll=9058) MONOCYTES - REL (CELLAVISION)(BEAKER) (test 18 % jhoi=4222) METAMYELOCYTES - REL (CELLAVISION)(BEAKER) (test 2 % 0-0 rigv=5016) MYELOCYTES - REL (CELLAVISION)(BEAKER) (test 4 % 0-0 byqa=2070) BANDS - REL (CELLAVISION)(BEAKER) (test 2 % 0-10 ovlw=6379) ATYPICAL LYMPHOCYTES - REL (CELLAVISION)(BEAKER) 2 % 0-0 (test nnwf=0211) NEUTROPHILS - ABS (CELLAVISION)(BEAKER) (test 6.34 K/ul 1.78-5.38 lnww=1330) LYMPHOCYTES - ABS (CELLAVISION)(BEAKER) (test 0.58 K/ul 1.32-3.57 ozmx=6073) MONOCYTES - ABS (CELLAVISION)(BEAKER) (test 1.73 K/uL 0.30-0.82 gadq=2186) METAMYELOCYTES - ABS (CELLAVISION)(BEAKER) (test 0.19 K/uL 0.00-0.00 ooxd=2292) MYELOCYTES-ABS (CELLAVISION)(BEAKER) (test 0.38 K/uL 0.00-0.00 xzxr=9759) BANDS - ABS (CELLAVISION)(BEAKER) (test 0.19 K/uL 0.00-0.80 szsx=6265) ATYPICAL LYMPHOCYTES - ABS (CELLAVISION)(BEAKER) 0.19 K/uL 0.00-0.00 (test jsge=4899) TOTAL COUNTED (BEAKER) (test grzh=5306) 100 MANUAL NRBC PER 100 CELLS (BEAKER) (test 1 /100 WBC 0-0 escs=5400) SMUDGE CELLS (BEAKER) (test fkom=5525) Present GIANT PLATELETS (BEAKER) (test sucy=028) Present ANISOCYTOSIS (BEAKER) (test szgy=923) 1+ few POIKILOCYTES (BEAKER) (test edyh=620) 1+ few ARTIFACT (CELLAVISION)(BEAKER) (test hatt=6484) Present PLATELET CONCENTRATION (CELLAVISION)(BEAKER) Decreased (test lcli=9474) Received comment: User comments: Slide comments:POCT-GLUCOSE [id number] 07: 09:00 Test Item Value Reference Range Comments POC-GLUCOSE METER (BEAKER) 182 mg/dL 70-110 TESTED AT [facility] [address] [place] [address] (test qqlq=1056) [facility] [address] URINALYSIS W/ REFLEX URINE [id number] 06:57:00 Test Item Value Reference Range Comments COLOR (BEAKER) (test ddoa=490) Dark Yellow CLARITY (BEAKER) (test besu=563) Hazy SPECIFIC GRAVITY UA (BEAKER) (test ojoa=892) 1.015 1.001-1.035 PH UA (BEAKER) (test dhht=756) 5.5 5.0-8.0 PROTEIN UA (BEAKER) (test exvw=087) 20 mg/dL Negative GLUCOSE UA (BEAKER) (test mefu=713) Negative Negative KETONES UA (BEAKER) (test zqzm=954) Negative Negative BILIRUBIN UA (BEAKER) (test whfe=195) Positive Negative BLOOD UA (BEAKER) (test ispf=765) Large Negative NITRITE UA (BEAKER) (test hwdn=494) Negative Negative LEUKOCYTE ESTERASE UA (BEAKER) (test mzdi=820) Negative Negative UROBILINOGEN UA (BEAKER) (test fitp=749) 0.2 mg/dL 0.2-1.0 RBC UA (BEAKER) (test sgvy=799) 10 /HPF WBC UA (BEAKER) (test qnki=095) 11 /HPF MUCUS (BEAKER) (test psvb=5069) Rare SQUAMOUS EPITHELIAL (BEAKER) (test hdoo=519) < /HPF CRYSTALS, URINE (BEAKER) (test jbny=3777) Occasional SOURCE(BEAKER) (test cbwx=7957) [id number] 05:02:00 Test Item Value Reference Range Comments FIBRINOGEN LEVEL (BEAKER) (test vzky=229) 138 mg/dl 225-434 COMPREHENSIVE METABOLIC [id number] 05:01:00 Test Item Value Reference Range Comments TOTAL PROTEIN (BEAKER) 5.1 gm/dL 6.0-8.3 (test tyqq=120) ALBUMIN (BEAKER) (test 2.3 g/dL 3.5-5.0 ilbm=9197) ALKALINE PHOSPHATASE 504 U/L 40-150 (BEAKER) (test cmbc=682) BILIRUBIN TOTAL (BEAKER) 13.5 mg/dL 0.2-1.2 (test ihsh=767) SODIUM (BEAKER) (test 138 meq/L 136-145 uclw=751) POTASSIUM (BEAKER) (test 3.8 meq/L 3.5-5.1 aqyn=907) CHLORIDE (BEAKER) (test 106 meq/L 98-107 ofqf=491) CO2 (BEAKER) (test 27 meq/L 22-29 msgu=532) BLOOD UREA NITROGEN 41 mg/dL 7-21 (BEAKER) (test gbqs=886) CREATININE (BEAKER) (test 2.69 mg/dL 0.57-1.25 quif=393) GLUCOSE RANDOM (BEAKER) 163 mg/dL 70-105 (test jbre=985) CALCIUM (BEAKER) (test 8.0 mg/dL 8.4-10.2 rdhm=274) AST (SGOT) (BEAKER) (test 766 U/L 5-34 pijl=880) ALT (SGPT) (BEAKER) (test 416 U/L 6-55 lyvx=093) EGFR (BEAKER) (test 25 mL/min/1.73 sq m ESTIMATED GFR IS NOT ioqe=1013) ACCURATE CREATININE CLEARANCE IN PREDICTING GLOMERULAR FILTRATION RATE. ESTIMATED GFR IS NOT APPLICABLE FOR DIALYSIS PATIENTS. Specimen markedly [id number] 05:00:00 Test Item Value Reference Range Comments PHOSPHORUS (BEAKER) (test uieq=230) 2.3 mg/dL 2.3-4.7 [id number] 05:00:00 Test Item Value Reference Range Comments MAGNESIUM (BEAKER) (test ddnm=722) 2.1 mg/dL 1.6-2.6 HEPATIC FUNCTION [id number] 05:00:00 Test Item Value Reference Range Comments TOTAL PROTEIN (BEAKER) (test zvlh=068) 5.1 gm/dL 6.0-8.3 ALBUMIN (BEAKER) (test vbzd=0729) 2.3 g/dL 3.5-5.0 BILIRUBIN TOTAL (BEAKER) (test rwqe=426) 13.5 mg/dL 0.2-1.2 BILIRUBIN DIRECT (BEAKER) (test qrls=053) 9.1 mg/dL 0.1-0.5 ALKALINE PHOSPHATASE (BEAKER) (test rxza=564) 504 U/L 40-150 AST (SGOT) (BEAKER) (test wkew=580) 766 U/L 5-34 ALT (SGPT) (BEAKER) (test mpwg=351) 416 U/L 6-55 Specimen markedly ictericPROTHROMBIN [id number] 04:57:00 Test Item Value Reference Range Comments PROTIME (BEAKER) (test rlmc=225) 26.5 seconds 11.7-14.7 INR (BEAKER) (test smko=984) 2.4 <=5.9 RECOMMENDED COUMADIN/WARFARIN INR THERAPY RANGESSTANDARD DOSE: 2.0 - 3.0 Includes: PROPHYLAXIS forvenous thrombosis, systemic embolization; TREATMENT for venous thrombosis and/or pulmonary embolus.HIGH RISK: Target INR is 2.5-3.5 for patients with mechanical heart valves.LACTIC ACID, VENOUS, WHOLE [id number] 04:44:00 Test Item Value Reference Range Comments LACTATE BLOOD VENOUS (2) (BEAKER) (test 1.4 mmol/L 0.5-2.2 amew=8385) Effective 09/15/2015: Units/Reference Range ChangeNew: 0.5-2.2 mmol/L Previous: 5 -20 mg/dLSpecimen markedly ictericCALCIUM, [id number] 01:33:00 Test Item Value Reference Range Comments CALCIUM IONIZED (BEAKER) (test onqb=907) 1.07 mmol/L 1.12-1.27 PH, BLOOD (BEAKER) (test uwvx=4160) 7.47 BASIC METABOLIC [id number] 01:30:00 Test Item Value Reference Range Comments SODIUM (BEAKER) (test 138 meq/L 136-145 pyyg=886) POTASSIUM (BEAKER) (test 3.8 meq/L 3.5-5.1 zhhj=957) CHLORIDE (BEAKER) (test 105 meq/L 98-107 tfwd=395) CO2 (BEAKER) (test 28 meq/L 22-29 xbyf=932) BLOOD UREA NITROGEN 38 mg/dL 7-21 (BEAKER) (test ffgx=527) CREATININE (BEAKER) (test 2.56 mg/dL 0.57-1.25 iqcu=715) GLUCOSE RANDOM (BEAKER) 155 mg/dL 70-105 (test dhis=351) CALCIUM (BEAKER) (test 7.9 mg/dL 8.4-10.2 lwiv=735) EGFR (BEAKER) (test 27 mL/min/1.73 sq m ESTIMATED GFR IS NOT xkbg=7954) ACCURATE CREATININE CLEARANCE IN PREDICTING GLOMERULAR FILTRATION RATE. ESTIMATED GFR IS NOT APPLICABLE FOR DIALYSIS PATIENTS. Specimen markedly [id number] 22:15:00 Test Item Value Reference Range Comments PHOSPHORUS (BEAKER) (test sskl=043) 2.1 mg/dL 2.3-4.7 [id number] 22:15:00 Test Item Value Reference Range Comments MAGNESIUM (BEAKER) (test euks=477) 2.0 mg/dL 1.6-2.6 [id number] 18:50:00 Test Item Value Reference Range Comments CORTISOL, TOTAL (BEAKER) (test oeen=8063) 69.7 ug/dL 3.7-19.4 CBC W/PLT COUNT & AUTO [id number] 18:22:00 Test Item Value Reference Range Comments WHITE BLOOD CELL COUNT (BEAKER) (test oftb=235) 9.7 K/ L 3.5-10.5 RED BLOOD CELL COUNT (BEAKER) (test qwpp=736) 2.52 M/ L 4.63-6.08 HEMOGLOBIN (BEAKER) (test fksg=456) 7.9 GM/DL 13.7-17.5 HEMATOCRIT (BEAKER) (test sowx=288) 23.5 % 40.1-51.0 MEAN CORPUSCULAR VOLUME (BEAKER) (test tphj=345) 93.3 fL 79.0-92.2 MEAN CORPUSCULAR HEMOGLOBIN (BEAKER) (test 31.3 pg 25.7-32.2 uows=823) MEAN CORPUSCULAR HEMOGLOBIN CONC (BEAKER) (test 33.6 GM/DL 32.3-36.5 xapz=727) RED CELL DISTRIBUTION WIDTH (BEAKER) (test 19.0 % 11.6-14.4 jaez=442) PLATELET COUNT (BEAKER) (test jvle=409) 44 K/CU MM 150-450 MEAN PLATELET VOLUME (BEAKER) (test vfmu=949) 10.7 fL 9.4-12.4 NUCLEATED RED BLOOD CELLS (BEAKER) (test 2 /100 WBC 0-0 yhou=641) (CELLAVISION MANUAL DIFF)2018-01-29 18:22:00 Test Item Value Reference Range Comments NEUTROPHILS - REL (CELLAVISION)(BEAKER) (test 76 % dfve=1426) LYMPHOCYTES - REL (CELLAVISION)(BEAKER) (test 5 % usto=1178) MONOCYTES - REL (CELLAVISION)(BEAKER) (test 16 % kura=8653) METAMYELOCYTES - REL (CELLAVISION)(BEAKER) (test 1 % 0-0 luqg=8521) MYELOCYTES - REL (CELLAVISION)(BEAKER) (test 1 % 0-0 krnv=5331) BANDS - REL (CELLAVISION)(BEAKER) (test aqyj=3449) 1 % 0-10 NEUTROPHILS - ABS (CELLAVISION)(BEAKER) (test 7.37 K/ul 1.78-5.38 czgf=3224) LYMPHOCYTES - ABS (CELLAVISION)(BEAKER) (test 0.49 K/ul 1.32-3.57 tcjp=2842) MONOCYTES - ABS (CELLAVISION)(BEAKER) (test 1.55 K/uL 0.30-0.82 zuff=3804) METAMYELOCYTES - ABS (CELLAVISION)(BEAKER) (test 0.10 K/uL 0.00-0.00 acci=5541) MYELOCYTES-ABS (CELLAVISION)(BEAKER) (test 0.10 K/uL 0.00-0.00 jjxh=1377) BANDS - ABS (CELLAVISION)(BEAKER) (test leew=4622) 0.10 K/uL 0.00-0.80 TOTAL COUNTED (BEAKER) (test xkhk=4704) 100 WBC MORPHOLOGY (BEAKER) (test rpqw=073) Normal PLT MORPHOLOGY (BEAKER) (test mplj=670) Normal ANISOCYTOSIS (BEAKER) (test uyjw=403) 1+ few MACROCYTES (BEAKER) (test dfek=391) 1+ few POIKILOCYTES (BEAKER) (test wvco=313) 1+ few TARGET CELLS (BEAKER) (test tiit=025) 1+ few ARTIFACT (CELLAVISION)(BEAKER) (test toow=1073) Present PLATELET CONCENTRATION (CELLAVISION)(BEAKER) (test Decreased apls=7518) Received comment: User comments: Slide comments:[id number] 18:00:00 Test Item Value Reference Range Comments SODIUM (BEAKER) (test bdyu=506) 140 meq/L 136-145 BASIC METABOLIC [id number] 18:00:00 Test Item Value Reference Range Comments SODIUM (BEAKER) (test 140 meq/L 136-145 boym=058) POTASSIUM (BEAKER) (test 3.9 meq/L 3.5-5.1 shmp=700) CHLORIDE (BEAKER) (test 104 meq/L 98-107 ilsc=208) CO2 (BEAKER) (test 27 meq/L 22-29 wgki=306) BLOOD UREA NITROGEN 25 mg/dL 7-21 (BEAKER) (test tlwa=511) CREATININE (BEAKER) (test 2.10 mg/dL 0.57-1.25 xnfn=458) GLUCOSE RANDOM (BEAKER) 113 mg/dL 70-105 (test abtn=279) CALCIUM (BEAKER) (test 8.4 mg/dL 8.4-10.2 wrkx=876) EGFR (BEAKER) (test 33 mL/min/1.73 sq m ESTIMATED GFR IS NOT qxvz=9485) ACCURATE CREATININE CLEARANCE IN PREDICTING GLOMERULAR FILTRATION RATE. ESTIMATED GFR IS NOT APPLICABLE FOR DIALYSIS PATIENTS. Specimen markedly ictericBLOOD [id number] 18:00:00 Test Item Value Reference Range Comments CULTURE (BEAKER) (test slpc=7290) No growth in 5 days BLOOD [id number] 18:00:00 Test Item Value Reference Range Comments CULTURE (BEAKER) (test jylm=1476) No growth in 5 days LACTIC ACID, ARTERIAL, WHOLE [id number] 17:58:00 Test Item Value Reference Range Comments LACTATE BLOOD ARTERIAL (2) (BEAKER) (test 1.1 mmol/L 0.5-2.2 bupe=1748) Effective 09/15/2015: Units/Reference Range ChangeNew: 0.5-2.2 mmol/L Previous: 5 -20 mg/dLSpecimen markedly [id number] 17:34:00 Test Item Value Reference Range Comments FIBRINOGEN LEVEL (BEAKER) (test zglm=446) 164 mg/dl 225-434 PROTHROMBIN [id number] 17:33:00 Test Item Value Reference Range Comments PROTIME (BEAKER) (test dvpj=747) 25.0 seconds 11.7-14.7 INR (BEAKER) (test yjmy=924) 2.3 <=5.9 RECOMMENDED COUMADIN/WARFARIN INR THERAPY RANGESSTANDARD DOSE: 2.0 - 3.0 Includes: PROPHYLAXIS forvenous thrombosis, systemic embolization; TREATMENT for venous thrombosis and/or pulmonary embolus.HIGH RISK: Target INR is 2.5-3.5 for patients with mechanical heart valves.POCT-GLUCOSE [id number] 17:24:00 Test Item Value Reference Range Comments POC-GLUCOSE METER (BEAKER) 151 mg/dL 70-110 TESTED AT [address] (test qhhg=2250) [place] [id number] CALCIUM, [id number] 16:23:00 Test Item Value Reference Range Comments CALCIUM IONIZED (BEAKER) (test hhzg=473) 1.11 mmol/L 1.12-1.27 PH, BLOOD (BEAKER) (test gbxk=2739) 7.51 POCT-GLUCOSE [id number] 11:48:00 Test Item Value Reference Range Comments POC-GLUCOSE METER (BEAKER) 187 mg/dL 70-110 TESTED AT [address] (test zumd=6214) [facility] [id number] BASIC METABOLIC [id number] 09:54:00 Test Item Value Reference Range Comments SODIUM (BEAKER) (test 138 meq/L 136-145 psjg=599) POTASSIUM (BEAKER) (test 3.9 meq/L 3.5-5.1 ujix=089) CHLORIDE (BEAKER) (test 105 meq/L 98-107 cehr=435) CO2 (BEAKER) (test 27 meq/L 22-29 vopv=870) BLOOD UREA NITROGEN 24 mg/dL 7-21 (BEAKER) (test muuc=830) CREATININE (BEAKER) (test 2.44 mg/dL 0.57-1.25 fcfq=631) GLUCOSE RANDOM (BEAKER) 150 mg/dL 70-105 (test qihu=889) CALCIUM (BEAKER) (test 8.1 mg/dL 8.4-10.2 bavg=077) EGFR (BEAKER) (test 28 mL/min/1.73 sq m ESTIMATED GFR IS NOT bdbc=1450) ACCURATE CREATININE CLEARANCE IN PREDICTING GLOMERULAR FILTRATION RATE. ESTIMATED GFR IS NOT APPLICABLE FOR DIALYSIS PATIENTS. Specimen markedly [id number] 09:43:00 Test Item Value Reference Range Comments PHOSPHORUS (BEAKER) (test ptae=906) 1.8 mg/dL 2.3-4.7 [id number] 09:43:00 Test Item Value Reference Range Comments MAGNESIUM (BEAKER) (test vlwg=408) 2.0 mg/dL 1.6-2.6 PH, [id number] 08:21:00 Test Item Value Reference Range Comments PH ARTERIAL (BEAKER) (test klrh=566) 7.47 7.35-7.45 CALCIUM, [id number] 08:20:00 Test Item Value Reference Range Comments CALCIUM IONIZED (BEAKER) (test kvjr=425) 1.13 mmol/L 1.12-1.27 PH, BLOOD (BEAKER) (test pcpw=2215) 7.47 HEPATITIS A ANTIBODY, [id number] 07:09:00 Test Item Value Reference Range Comments HEPATITIS A IGG ANTIBODY (BEAKER) (test yvqy=9327) Reactive Nonreactive CBC W/PLT COUNT & AUTO [id number] 06:58:00 Test Item Value Reference Range Comments WHITE BLOOD CELL COUNT (BEAKER) (test kbnr=860) 7.9 K/ L 3.5-10.5 RED BLOOD CELL COUNT (BEAKER) (test yfyn=557) 2.66 M/ L 4.63-6.08 HEMOGLOBIN (BEAKER) (test mtka=106) 8.1 GM/DL 13.7-17.5 HEMATOCRIT (BEAKER) (test rwfg=988) 24.7 % 40.1-51.0 MEAN CORPUSCULAR VOLUME (BEAKER) (test ojpl=719) 92.9 fL 79.0-92.2 MEAN CORPUSCULAR HEMOGLOBIN (BEAKER) (test 30.5 pg 25.7-32.2 aopc=220) MEAN CORPUSCULAR HEMOGLOBIN CONC (BEAKER) (test 32.8 GM/DL 32.3-36.5 gnlv=819) RED CELL DISTRIBUTION WIDTH (BEAKER) (test 18.7 % 11.6-14.4 wvku=326) PLATELET COUNT (BEAKER) (test asky=150) 51 K/CU MM 150-450 MEAN PLATELET VOLUME (BEAKER) (test nuqa=165) 10.6 fL 9.4-12.4 NUCLEATED RED BLOOD CELLS (BEAKER) (test 1 /100 WBC 0-0 nijm=888) (CELLAVISION MANUAL DIFF)2018-01-29 06:58:00 Test Item Value Reference Range Comments NEUTROPHILS - REL (CELLAVISION)(BEAKER) (test 82 % atub=0626) LYMPHOCYTES - REL (CELLAVISION)(BEAKER) (test 4 % prwn=2069) MONOCYTES - REL (CELLAVISION)(BEAKER) (test 9 % szjh=4962) MYELOCYTES - REL (CELLAVISION)(BEAKER) (test 4 % 0-0 gbzy=3519) BANDS - REL (CELLAVISION)(BEAKER) (test 1 % 0-10 ziqz=9337) NEUTROPHILS - ABS (CELLAVISION)(BEAKER) (test 6.48 K/ul 1.78-5.38 zybl=1677) LYMPHOCYTES - ABS (CELLAVISION)(BEAKER) (test 0.32 K/ul 1.32-3.57 rhkv=7590) MONOCYTES - ABS (CELLAVISION)(BEAKER) (test 0.71 K/uL 0.30-0.82 gmfz=1293) MYELOCYTES-ABS (CELLAVISION)(BEAKER) (test 0.32 K/uL 0.00-0.00 asac=1999) BANDS - ABS (CELLAVISION)(BEAKER) (test 0.08 K/uL 0.00-0.80 pmtk=3058) TOTAL COUNTED (BEAKER) (test qrzx=6260) 100 MANUAL NRBC PER 100 CELLS (BEAKER) (test 1 /100 WBC 0-0 wlsy=5837) WBC MORPHOLOGY (BEAKER) (test ciuu=843) Normal PLT MORPHOLOGY (BEAKER) (test cebr=667) Normal ANISOCYTOSIS (BEAKER) (test glrs=747) 1+ few ARTIFACT (CELLAVISION)(BEAKER) (test xmyo=0290) Present PLATELET CONCENTRATION (CELLAVISION)(BEAKER) Decreased (test hkgl=9919) Received comment: User comments: Slide comments:POCT-GLUCOSE [id number] 06: 55:00 Test Item Value Reference Range Comments POC-GLUCOSE METER (BEAKER) 174 mg/dL 70-110 TESTED AT [address] (test ovng=2225) [facility] [address] [id number] 04:44:00 Test Item Value Reference Range Comments FIBRINOGEN LEVEL (BEAKER) (test jaur=516) 150 mg/dl 225-434 HEPATITIS B SURFACE [id number] 04:34:00 Test Item Value Reference Range Comments HEPATITIS B SURFACE ANTIGEN (2) (BEAKER) (test Nonreactive Nonreactive jgmt=0255) HEPATITIS B SURFACE [id number] 04:34:00 Test Item Value Reference Range Comments HEPATITIS B SURFACE ANTIBODY (BEAKER) (test 53.2 mIU/mL <8.0 lzqf=496) HEPATITIS C [id number] 04:34:00 Test Item Value Reference Range Comments HEPATITIS C ANTIBODY (BEAKER) (test spsm=580) Nonreactive Nonreactive HEPATITIS B CORE ANTIBODY, [id number] 04:34:00 Test Item Value Reference Range Comments HEPATITIS B CORE TOTAL ANTIBODY (BEAKER) (test Nonreactive Nonreactive cixk=363) HEPATIC FUNCTION [id number] 04:27:00 Test Item Value Reference Range Comments TOTAL PROTEIN (BEAKER) (test parz=992) 5.4 gm/dL 6.0-8.3 ALBUMIN (BEAKER) (test mkpi=4164) 2.5 g/dL 3.5-5.0 BILIRUBIN TOTAL (BEAKER) (test uzgk=502) 12.0 mg/dL 0.2-1.2 BILIRUBIN DIRECT (BEAKER) (test hmvl=435) 8.1 mg/dL 0.1-0.5 ALKALINE PHOSPHATASE (BEAKER) (test ywqm=659) 575 U/L 40-150 AST (SGOT) (BEAKER) (test npyq=412) 1671 U/L 5-34 ALT (SGPT) (BEAKER) (test vmpq=972) 663 U/L 6-55 Specimen markedly ictericPROTHROMBIN [id number] 04:16:00 Test Item Value Reference Range Comments PROTIME (BEAKER) (test dgia=996) 26.2 seconds 11.7-14.7 INR (BEAKER) (test zhyy=822) 2.4 <=5.9 RECOMMENDED COUMADIN/WARFARIN INR THERAPY RANGESSTANDARD DOSE: 2.0 - 3.0 Includes: PROPHYLAXIS forvenous thrombosis, systemic embolization; TREATMENT for venous thrombosis and/or pulmonary embolus.HIGH RISK: Target INR is 2.5-3.5 for patients with mechanical heart valves.LACTIC ACID, ARTERIAL, WHOLE [id number] 04:12:00 Test Item Value Reference Range Comments LACTATE BLOOD ARTERIAL (2) (BEAKER) (test 1.5 mmol/L 0.5-2.2 ixsn=0170) Effective 09/15/2015: Units/Reference Range ChangeNew: 0.5-2.2 mmol/L Previous: 5 -20 mg/dLSpecimen markedly ictericPOCT-GLUCOSE [id number] 00:26:00 Test Item Value Reference Range Comments POC-GLUCOSE METER (BEAKER) 186 mg/dL 70-110 TESTED AT [facility] [address] [facility] (test dikz=0158) [facility] [address] CALCIUM, [id number] 00:26:00 Test Item Value Reference Range Comments CALCIUM IONIZED (BEAKER) (test qtwi=170) 1.15 mmol/L 1.12-1.27 PH, BLOOD (BEAKER) (test xjmu=2078) 7.45 BASIC METABOLIC [id number] 23:58:00 Test Item Value Reference Range Comments SODIUM (BEAKER) (test 134 meq/L 136-145 fwhd=099) POTASSIUM (BEAKER) (test 3.8 meq/L 3.5-5.1 nzih=029) CHLORIDE (BEAKER) (test 103 meq/L 98-107 aceb=407) CO2 (BEAKER) (test 27 meq/L 22-29 kgdk=781) BLOOD UREA NITROGEN 23 mg/dL 7-21 (BEAKER) (test xqju=773) CREATININE (BEAKER) (test 2.61 mg/dL 0.57-1.25 whyk=919) GLUCOSE RANDOM (BEAKER) 151 mg/dL 70-105 (test ryzd=756) CALCIUM (BEAKER) (test 8.2 mg/dL 8.4-10.2 bmdr=657) EGFR (BEAKER) (test 26 mL/min/1.73 sq m ESTIMATED GFR IS NOT ulyg=4160) ACCURATE CREATININE CLEARANCE IN PREDICTING GLOMERULAR FILTRATION RATE. ESTIMATED GFR IS NOT APPLICABLE FOR DIALYSIS PATIENTS. Specimen markedly [id number] 20:08:00 Test Item Value Reference Range Comments PHOSPHORUS (BEAKER) (test spqw=991) 2.2 mg/dL 2.3-4.7 [id number] 20:08:00 Test Item Value Reference Range Comments MAGNESIUM (BEAKER) (test bhyt=664) 1.9 mg/dL 1.6-2.6 PH, [id number] 19:51:00 Test Item Value Reference Range Comments PH ARTERIAL (BEAKER) (test rwgx=195) 7.50 7.35-7.45 RAD, CHEST, 1 VIEW, NON [id number] 18:00:00Reason for exam:->post left central line placement Should this be performed at the bedside?->YesFINAL REPORT Portable chest. CLINICAL HISTORY: post left central line placement. COMPARISON STUDY: January 28, 2018. FINDINGS: The cardiac silhouette is enlarged. The pulmonaryparenchyma demonstrates blunting of the adrenals with adjacent atelectasis or consolidation, as on previous. A left jugular line has been inserted, the tip projecting over the SVC. The remaining support lines and tubes are unchanged. No pneumothorax is seen. Degenerative changes are noted. IMPRESSION:Left jugular line inserted, the tip projecting over the SVC. No other significant change. Signed: Sebastian Burns MDReport Verified Date/Time: 01/28/2018 18:00:47 Reading Location: [facility] C013W Consult Reading Room POCT-GLUCOSE [id number] 17:58:00 Test Item Value Reference Range Comments POC-GLUCOSE METER (BEAKER) 161 mg/dL 70-110 TESTED AT [facility] [address] [facility] (test pmzc=2360) [facility] [address] BASIC METABOLIC [id number] 16:30:00 Test Item Value Reference Range Comments SODIUM (BEAKER) (test 136 meq/L 136-145 gptn=437) POTASSIUM (BEAKER) (test 4.1 meq/L 3.5-5.1 tdzv=880) CHLORIDE (BEAKER) (test 105 meq/L 98-107 oifb=775) CO2 (BEAKER) (test 26 meq/L 22-29 olpa=797) BLOOD UREA NITROGEN 23 mg/dL 7-21 (BEAKER) (test ylsb=580) CREATININE (BEAKER) (test 3.01 mg/dL 0.57-1.25 dcuh=060) GLUCOSE RANDOM (BEAKER) 136 mg/dL 70-105 (test lktu=412) CALCIUM (BEAKER) (test 8.3 mg/dL 8.4-10.2 gvju=369) EGFR (BEAKER) (test 22 mL/min/1.73 sq m ESTIMATED GFR IS NOT zisn=8912) ACCURATE CREATININE CLEARANCE IN PREDICTING GLOMERULAR FILTRATION RATE. ESTIMATED GFR IS NOT APPLICABLE FOR DIALYSIS PATIENTS. Specimen markedly ictericPROTHROMBIN [id number] 16:25:00 Test Item Value Reference Range Comments PROTIME (BEAKER) (test extn=745) 28.4 seconds 11.7-14.7 INR (BEAKER) (test yvle=222) 2.7 <=5.9 RECOMMENDED COUMADIN/WARFARIN INR THERAPY RANGESSTANDARD DOSE: 2.0 - 3.0 Includes: PROPHYLAXIS forvenous thrombosis, systemic embolization; TREATMENT for venous thrombosis and/or pulmonary embolus.HIGH RISK: Target INR is 2.5-3.5 for patients with mechanical heart valves.[id number] 16:25:00 Test Item Value Reference Range Comments FIBRINOGEN LEVEL (BEAKER) (test qqpr=410) 165 mg/dl 225-434 LACTIC ACID, ARTERIAL, WHOLE [id number] 16:24:00 Test Item Value Reference Range Comments LACTATE BLOOD ARTERIAL (2) 1.4 mmol/L 0.5-2.2 Specimen slightly hemolyzed (BEAKER) (test dhzh=3370) Effective 09/15/2015: Units/Reference Range ChangeNew: 0.5-2.2 mmol/L Previous: 5 -20 mg/dLSpecimen moderately ictericCBC W/PLT COUNT & AUTO [id number] 16:11:00 Test Item Value Reference Range Comments WHITE BLOOD CELL COUNT (BEAKER) (test jnft=942) 4.9 K/ L 3.5-10.5 RED BLOOD CELL COUNT (BEAKER) (test otbq=288) 2.69 M/ L 4.63-6.08 HEMOGLOBIN (BEAKER) (test oagq=634) 8.2 GM/DL 13.7-17.5 HEMATOCRIT (BEAKER) (test euvg=766) 25.3 % 40.1-51.0 MEAN CORPUSCULAR VOLUME (BEAKER) (test peca=550) 94.1 fL 79.0-92.2 MEAN CORPUSCULAR HEMOGLOBIN (BEAKER) (test 30.5 pg 25.7-32.2 amxu=088) MEAN CORPUSCULAR HEMOGLOBIN CONC (BEAKER) (test 32.4 GM/DL 32.3-36.5 heir=365) RED CELL DISTRIBUTION WIDTH (BEAKER) (test 18.6 % 11.6-14.4 vwzi=815) PLATELET COUNT (BEAKER) (test nbnb=204) 31 K/CU MM 150-450 MEAN PLATELET VOLUME (BEAKER) (test ylro=575) 10.0 fL 9.4-12.4 NUCLEATED RED BLOOD CELLS (BEAKER) (test 3 /100 WBC 0-0 svkm=421) NEUTROPHILS RELATIVE PERCENT (BEAKER) (test 78 % thuz=343) LYMPHOCYTES RELATIVE PERCENT (BEAKER) (test 6 % bamj=527) MONOCYTES RELATIVE PERCENT (BEAKER) (test 13 % eosm=411) EOSINOPHILS RELATIVE PERCENT (BEAKER) (test 0 % cmke=794) BASOPHILS RELATIVE PERCENT (BEAKER) (test 0 % jtzq=167) NEUTROPHILS ABSOLUTE COUNT (BEAKER) (test 3.77 K/ L 1.78-5.38 riss=444) LYMPHOCYTES ABSOLUTE COUNT (BEAKER) (test 0.28 K/ L 1.32-3.57 axcw=021) MONOCYTES ABSOLUTE COUNT (BEAKER) (test qbqu=762) 0.63 K/ L 0.30-0.82 EOSINOPHILS ABSOLUTE COUNT (BEAKER) (test 0.00 K/ L 0.04-0.54 qrdf=235) BASOPHILS ABSOLUTE COUNT (BEAKER) (test rhef=637) 0.01 K/ L 0.01-0.08 IMMATURE GRANULOCYTES-RELATIVE PERCENT (BEAKER) 3 % 0-1 (test vuhf=7007) CALCIUM, [id number] 15:58:00 Test Item Value Reference Range Comments CALCIUM IONIZED (BEAKER) (test eyaa=733) 1.13 mmol/L 1.12-1.27 PH, BLOOD (BEAKER) (test upuj=4254) 7.49 RAD, CHEST, 1 VIEW, NON [id number] 14:56:00Reason for exam:->s/p central lineFINAL REPORT Chest one view. Clinical history: s/p central line Comparison: January 28, 2018 Discussion: A frontal chest is provided. Cardiomediastinal contours are unchanged. ET and feeding tube are in stable position. A right IJ line has been placed, the tip projects overthe cavoatrial junction. There is pulmonary vascular congestion and interstitial edema. Small bilateral pleural effusions are suspected. No pneumothorax. Mild bibasilar atelectasis or consolidation. A stent projects over the right upper quadrant. Signed: Marla Lema MDReport Verified Date/Time: 01/28/2018 14:56:14 Reading Location: [address] Consult Reading Room VANCOMYCIN LEVEL, [id number] 14:17:00 Test Item Value Reference Range Comments VANCOMYCIN TROUGH (BEAKER) (test fwky=845) 10.2 ug/mL 10.0-20.0 EEG AWAKE AND [id number] 13:37:00Reason for exam:->assess for epilepsy , 52 yo with GI bleed from esophageal varices, off sedation but not alert or oriented, previous EEG performed on ativanNeurophysiology Electroencephalogram Report DATE OF REPORT: 01/28/18Date(s) of Study: 01/28/2018ACC: [id number]: 18- 1740Start time: 0921 hrsStop time: 0943 hrsICD-10: R41.82 Altered Mental StatusCPT Code: 75630 EEG: coma or sleep only < 40 min HISTORY: 52 year old male referred for STAT EEG to assess for possible subclinical seizures due to poor alertness and responsiveness off sedation. He had a previous EEG completed while receiving Ativan. MEDICATIONS THAT COULD AFFECT EEG: None TECHNICAL SUMMARY: This is a digital video EEG recorded with 32 input channels reviewed with bipolar and referentialmontages using the modified combinatorial system nomenclature. DESCRIPTION OF RECORD: BACKGROUND: Medium amplitude 1-4 Hz activities predominated the recording. Bilateral frontocentral rudimentary 12 Hz spindle activity was frequently seen with associated broad based sharp transients. During the period of maximal wakefulness (as manifest by EMG artifact) there was no posterior dominant rhythm presentand there was no obvious change of the background patterns. There did not appear to be clear EEG reactivity with noxious stimuli on either side. HYPERVENTILATION: Hyperventilation was not performed. PHOTIC STIMULATION: Photic stimulation was done from 3-30 Hz; no photic driving was seen; photoparoxysmal responses were absent. EVENTS: None ELECTROCARDIOGRAM: A single lead EKG showed normal rate, rhythm, and appearance. IMPRESSION: Abnormal EEG in coma due to moderate continuous generalized slowing and lack of reactivity.CLINICAL COMMENT: This study is consistent with an etiologically nonspecific severe degree of encephalopathy. There were no epileptiform abnormalities, including no electrographic seizures. Giselle Wright MDEpilepsy FellowEASTERN IDAHO REGIONAL MED[facility] Neurophysiology Service Reggie Gerard M.D., FACNS, FAAN, FAESProfessor of Neurology, [facility] College of MedicineDirector, [facility] Epilepsy CenterAdams County Regional Medical CenterEmmettst. mary's hospital Neurophysiology Lab HEPATIC FUNCTION [id number] 12:32:00 Test Item Value Reference Range Comments TOTAL PROTEIN (BEAKER) (test uppw=739) 5.1 gm/dL 6.0-8.3 ALBUMIN (BEAKER) (test zzeu=8413) 2.4 g/dL 3.5-5.0 BILIRUBIN TOTAL (BEAKER) (test dzel=657) 10.8 mg/dL 0.2-1.2 BILIRUBIN DIRECT (BEAKER) (test kajt=587) 7.0 mg/dL 0.1-0.5 ALKALINE PHOSPHATASE (BEAKER) (test qpkf=070) 551 U/L 40-150 AST (SGOT) (BEAKER) (test wsat=871) 2827 U/L 5-34 ALT (SGPT) (BEAKER) (test iwry=449) 878 U/L 6-55 Specimen markedly ictericPOCT-GLUCOSE [id number] 12:13:00 Test Item Value Reference Range Comments POC-GLUCOSE METER (BEAKER) 199 mg/dL 70-110 TESTED AT [address] (test rgex=0065) [facility] [address] BASIC METABOLIC [id number] 08:49:00 Test Item Value Reference Range Comments SODIUM (BEAKER) (test 136 meq/L 136-145 wgne=174) POTASSIUM (BEAKER) (test 4.0 meq/L 3.5-5.1 tscu=039) CHLORIDE (BEAKER) (test 105 meq/L 98-107 ajle=103) CO2 (BEAKER) (test 25 meq/L 22-29 dcmo=178) BLOOD UREA NITROGEN 20 mg/dL 7-21 (BEAKER) (test enro=918) CREATININE (BEAKER) (test 2.84 mg/dL 0.57-1.25 fnrs=870) GLUCOSE RANDOM (BEAKER) 161 mg/dL 70-105 (test jkdj=947) CALCIUM (BEAKER) (test 8.2 mg/dL 8.4-10.2 prhp=092) EGFR (BEAKER) (test 24 mL/min/1.73 sq m ESTIMATED GFR IS NOT pcae=8378) ACCURATE CREATININE CLEARANCE IN PREDICTING GLOMERULAR FILTRATION RATE. ESTIMATED GFR IS NOT APPLICABLE FOR DIALYSIS PATIENTS. Specimen moderately [id number] 08:31:00 Test Item Value Reference Range Comments PHOSPHORUS (BEAKER) (test umhv=212) 2.9 mg/dL 2.3-4.7 [id number] 08:31:00 Test Item Value Reference Range Comments MAGNESIUM (BEAKER) (test hfyd=106) 2.3 mg/dL 1.6-2.6 LACTIC ACID, ARTERIAL, WHOLE [id number] 08:26:00 Test Item Value Reference Range Comments LACTATE BLOOD ARTERIAL (2) (BEAKER) (test 1.3 mmol/L 0.5-2.2 rrii=4301) Effective 09/15/2015: Units/Reference Range ChangeNew: 0.5-2.2 mmol/L Previous: 5 -20 mg/dLSpecimen moderately ictericPROTHROMBIN [id number] 08:18:00 Test Item Value Reference Range Comments PROTIME (BEAKER) (test oltm=918) 28.0 seconds 11.7-14.7 INR (BEAKER) (test rdpm=836) 2.6 <=5.9 RECOMMENDED COUMADIN/WARFARIN INR THERAPY RANGESSTANDARD DOSE: 2.0 - 3.0 Includes: PROPHYLAXIS forvenous thrombosis, systemic embolization; TREATMENT for venous thrombosis and/or pulmonary embolus.HIGH RISK: Target INR is 2.5-3.5 for patients with mechanical heart valves.[id number] 08:18:00 Test Item Value Reference Range Comments FIBRINOGEN LEVEL (BEAKER) (test nagj=290) 191 mg/dl 225-434 POCT-GLUCOSE [id number] 08:17:00 Test Item Value Reference Range Comments POC-GLUCOSE METER (BEAKER) 172 mg/dL 70-110 TESTED AT [address] (test vaqk=6554) [facility] [address] CALCIUM, [id number] 08:13:00 Test Item Value Reference Range Comments CALCIUM IONIZED (BEAKER) (test bexg=118) 1.16 mmol/L 1.12-1.27 PH, BLOOD (AKER) (test pomf=6797) 7.47 POCT-GLUCOSE [id number] 06:33:00 Test Item Value Reference Range Comments POC-GLUCOSE METER (BEAKER) 172 mg/dL 70-110 TESTED AT [address] (test fanc=2028) [facility] [address] CBC W/PLT COUNT & AUTO [id number] 06:16:00 Test Item Value Reference Range Comments WHITE BLOOD CELL COUNT (BEAKER) (test ahlp=281) 4.4 K/ L 3.5-10.5 RED BLOOD CELL COUNT (BEAKER) (test hkpc=960) 2.62 M/ L 4.63-6.08 HEMOGLOBIN (BEAKER) (test roki=205) 8.1 GM/DL 13.7-17.5 HEMATOCRIT (BEAKER) (test fjyn=788) 24.7 % 40.1-51.0 MEAN CORPUSCULAR VOLUME (BEAKER) (test kxop=940) 94.3 fL 79.0-92.2 MEAN CORPUSCULAR HEMOGLOBIN (BEAKER) (test 30.9 pg 25.7-32.2 vsqd=020) MEAN CORPUSCULAR HEMOGLOBIN CONC (BEAKER) (test 32.8 GM/DL 32.3-36.5 dliy=343) RED CELL DISTRIBUTION WIDTH (BEAKER) (test 18.8 % 11.6-14.4 jcps=658) PLATELET COUNT (BEAKER) (test vvlx=920) 33 K/CU MM 150-450 MEAN PLATELET VOLUME (BEAKER) (test tmtk=877) 10.2 fL 9.4-12.4 NUCLEATED RED BLOOD CELLS (BEAKER) (test 3 /100 WBC 0-0 qnjz=795) NEUTROPHILS RELATIVE PERCENT (BEAKER) (test 81 % abbm=058) LYMPHOCYTES RELATIVE PERCENT (BEAKER) (test 7 % tkzv=069) MONOCYTES RELATIVE PERCENT (BEAKER) (test 10 % hnoy=227) EOSINOPHILS RELATIVE PERCENT (BEAKER) (test 0 % qaqd=695) BASOPHILS RELATIVE PERCENT (BEAKER) (test 0 % ulht=742) NEUTROPHILS ABSOLUTE COUNT (BEAKER) (test 3.52 K/ L 1.78-5.38 dtgv=222) LYMPHOCYTES ABSOLUTE COUNT (BEAKER) (test 0.30 K/ L 1.32-3.57 zjib=280) MONOCYTES ABSOLUTE COUNT (BEAKER) (test cwgd=108) 0.45 K/ L 0.30-0.82 EOSINOPHILS ABSOLUTE COUNT (BEAKER) (test 0.01 K/ L 0.04-0.54 nwei=841) BASOPHILS ABSOLUTE COUNT (BEAKER) (test ppit=437) 0.01 K/ L 0.01-0.08 IMMATURE GRANULOCYTES-RELATIVE PERCENT (BEAKER) 2 % 0-1 (test ssgi=5251) BLOOD GAS, [id number] 04:17:00 Test Item Value Reference Range Comments PH ARTERIAL (BEAKER) (test cugd=173) 7.41 7.35-7.45 PCO2 ARTERIAL (BEAKER) (test edea=831) 46 mmHg 35-45 PO2 ARTERIAL (BEAKER) (test oowx=792) 90 mmHg 80-90 O2 SATURATION ARTERIAL (BEAKER) (test wsak=115) 96.9 % 96.0-97.0 HCO3 ARTERIAL (BEAKER) (test bugx=410) 28 mmol/L 21-29 BASE EXCESS ARTERIAL (BEAKER) (test moeg=388) 3.3 mmol/L -2.0-3.0 PATIENT TEMPERATURE (BEAKER) (test upyr=2651) 37.0 C FIO2 (BEAKER) (test girw=8594) 35.0 % BILIRUBIN, [id number] 04:10:00 Test Item Value Reference Range Comments BILIRUBIN DIRECT (BEAKER) (test xfct=024) 7.3 mg/dL 0.1-0.5 LACTIC ACID, ARTERIAL, WHOLE [id number] 03:57:00 Test Item Value Reference Range Comments LACTATE BLOOD ARTERIAL (2) (BEAKER) (test 1.4 mmol/L 0.5-2.2 fssw=2515) Effective 09/15/2015: Units/Reference Range ChangeNew: 0.5-2.2 mmol/L Previous: 5 -20 mg/dLSpecimen moderately [id number] 03:54:00 Test Item Value Reference Range Comments FIBRINOGEN LEVEL (BEAKER) (test mrcj=002) 193 mg/dl 225-434 PROTHROMBIN [id number] 03:53:00 Test Item Value Reference Range Comments PROTIME (BEAKER) (test qauy=121) 27.5 seconds 11.7-14.7 INR (BEAKER) (test ipaw=090) 2.6 <=5.9 RECOMMENDED COUMADIN/WARFARIN INR THERAPY RANGESSTANDARD DOSE: 2.0 - 3.0 Includes: PROPHYLAXIS forvenous thrombosis, systemic embolization; TREATMENT for venous thrombosis and/or pulmonary embolus.HIGH RISK: Target INR is 2.5-3.5 for patients with mechanical heart valves.RAD, CHEST, 1 VIEW, NON [id number] 03:45:00Reason for exam:->intubatedShould this be performed at the bedside ?->YesFINAL REPORT CLINICAL INDICATION: Support lines. Comparison: 01/27/2018 The cardiomediastinal contours are stable. Central pulmonary vascular congestion and bilateral parenchymaland pleural opacities are unchanged. There is no pneumothorax. An enteric tube traverses examinationto the upper abdomen. An endotracheal tube is stable. Signed: Tyler Cunningham MDReport Verified Date/Time: 01/28/2018 03:45:51 Reading Location: [address] Reading Room CALCIUM, [id number] 00:45:00 Test Item Value Reference Range Comments CALCIUM IONIZED (BEAKER) (test jrpt=156) 1.12 mmol/L 1.12-1.27 PH, BLOOD (BEAKER) (test woeh=8864) 7.38 BASIC METABOLIC [id number] 00:28:00 Test Item Value Reference Range Comments SODIUM (BEAKER) (test 134 meq/L 136-145 wsyc=120) POTASSIUM (BEAKER) (test 3.8 meq/L 3.5-5.1 bwli=414) CHLORIDE (BEAKER) (test 101 meq/L 98-107 tvcc=139) CO2 (BEAKER) (test 26 meq/L 22-29 hxsi=524) BLOOD UREA NITROGEN 19 mg/dL 7-21 (BEAKER) (test ntcy=441) CREATININE (BEAKER) (test 2.73 mg/dL 0.57-1.25 czjx=465) GLUCOSE RANDOM (BEAKER) 161 mg/dL 70-105 (test sgmd=959) CALCIUM (BEAKER) (test 8.1 mg/dL 8.4-10.2 lrej=435) EGFR (BEAKER) (test 25 mL/min/1.73 sq m ESTIMATED GFR IS NOT kout=7708) ACCURATE CREATININE CLEARANCE IN PREDICTING GLOMERULAR FILTRATION RATE. ESTIMATED GFR IS NOT APPLICABLE FOR DIALYSIS PATIENTS. Specimen markedly ictericLACTIC ACID, ARTERIAL, WHOLE [id number] 00:18:00 Test Item Value Reference Range Comments LACTATE BLOOD ARTERIAL (2) (BEAKER) (test 2.5 mmol/L 0.5-2.2 xjft=7724) Effective 09/15/2015: Units/Reference Range ChangeNew: 0.5-2.2 mmol/L Previous: 5 -20 mg/dLSpecimen markedly ictericPROTHROMBIN [id number] 00:14:00 Test Item Value Reference Range Comments PROTIME (BEAKER) (test hzqg=305) 28.1 seconds 11.7-14.7 INR (BEAKER) (test grye=368) 2.6 <=5.9 RECOMMENDED COUMADIN/WARFARIN INR THERAPY RANGESSTANDARD DOSE: 2.0 - 3.0 Includes: PROPHYLAXIS forvenous thrombosis, systemic embolization; TREATMENT for venous thrombosis and/or pulmonary embolus.HIGH RISK: Target INR is 2.5-3.5 for patients with mechanical heart valves.[id number] 00:14:00 Test Item Value Reference Range Comments FIBRINOGEN LEVEL (BEAKER) (test plvv=969) 196 mg/dl 225-434 CBC W/PLT COUNT & AUTO [id number] 00:08:00 Test Item Value Reference Range Comments WHITE BLOOD CELL COUNT (BEAKER) (test vjru=818) 4.7 K/ L 3.5-10.5 RED BLOOD CELL COUNT (BEAKER) (test klux=378) 2.62 M/ L 4.63-6.08 HEMOGLOBIN (BEAKER) (test nnic=207) 8.0 GM/DL 13.7-17.5 HEMATOCRIT (BEAKER) (test xsii=645) 24.8 % 40.1-51.0 MEAN CORPUSCULAR VOLUME (BEAKER) (test flhu=018) 94.7 fL 79.0-92.2 MEAN CORPUSCULAR HEMOGLOBIN (BEAKER) (test 30.5 pg 25.7-32.2 ybvj=314) MEAN CORPUSCULAR HEMOGLOBIN CONC (BEAKER) (test 32.3 GM/DL 32.3-36.5 nztm=663) RED CELL DISTRIBUTION WIDTH (BEAKER) (test 18.8 % 11.6-14.4 kpqv=023) PLATELET COUNT (BEAKER) (test mfkc=331) 37 K/CU MM 150-450 MEAN PLATELET VOLUME (BEAKER) (test ihpw=685) 9.9 fL 9.4-12.4 NUCLEATED RED BLOOD CELLS (BEAKER) (test 3 /100 WBC 0-0 gevp=140) NEUTROPHILS RELATIVE PERCENT (BEAKER) (test 82 % ixsf=320) LYMPHOCYTES RELATIVE PERCENT (BEAKER) (test 6 % flsv=813) MONOCYTES RELATIVE PERCENT (BEAKER) (test 11 % qjor=676) EOSINOPHILS RELATIVE PERCENT (BEAKER) (test 0 % pzzm=842) BASOPHILS RELATIVE PERCENT (BEAKER) (test 0 % bgcj=489) NEUTROPHILS ABSOLUTE COUNT (BEAKER) (test 3.81 K/ L 1.78-5.38 pzlc=115) LYMPHOCYTES ABSOLUTE COUNT (BEAKER) (test 0.29 K/ L 1.32-3.57 oolp=942) MONOCYTES ABSOLUTE COUNT (BEAKER) (test ghal=697) 0.49 K/ L 0.30-0.82 EOSINOPHILS ABSOLUTE COUNT (BEAKER) (test 0.00 K/ L 0.04-0.54 lchz=534) BASOPHILS ABSOLUTE COUNT (BEAKER) (test lhrp=332) 0.00 K/ L 0.01-0.08 IMMATURE GRANULOCYTES-RELATIVE PERCENT (BEAKER) 1 % 0-1 (test usgf=5568) POCT-GLUCOSE [id number] 22:25:00 Test Item Value Reference Range Comments POC-GLUCOSE METER (BEAKER) 180 mg/dL 70-110 TESTED AT [facility] [address] [facility] (test ljil=3945) [facility] [address] [id number] 20:22:00 Test Item Value Reference Range Comments PHOSPHORUS (BEAKER) (test irmo=780) 3.4 mg/dL 2.3-4.7 [id number] 20:22:00 Test Item Value Reference Range Comments MAGNESIUM (BEAKER) (test rklc=752) 2.0 mg/dL 1.6-2.6 LACTIC ACID, ARTERIAL, WHOLE [id number] 20:20:00 Test Item Value Reference Range Comments LACTATE BLOOD ARTERIAL (2) (BEAKER) (test 1.4 mmol/L 0.5-2.2 ylfh=0783) Effective 09/15/2015: Units/Reference Range ChangeNew: 0.5-2.2 mmol/L Previous: 5 -20 mg/dLSpecimen moderately [id number] 20:19:00 Test Item Value Reference Range Comments FIBRINOGEN LEVEL (BEAKER) (test njjg=385) 191 mg/dl 225-434 PROTHROMBIN [id number] 20:18:00 Test Item Value Reference Range Comments PROTIME (BEAKER) (test gwlw=322) 29.7 seconds 11.7-14.7 INR (BEAKER) (test oula=580) 2.8 <=5.9 RECOMMENDED COUMADIN/WARFARIN INR THERAPY RANGESSTANDARD DOSE: 2.0 - 3.0 Includes: PROPHYLAXIS forvenous thrombosis, systemic embolization; TREATMENT for venous thrombosis and/or pulmonary embolus.HIGH RISK: Target INR is 2.5-3.5 for patients with mechanical heart valves.PH, [id number] 20:07:00 Test Item Value Reference Range Comments PH ARTERIAL (BEAKER) (test ikql=429) 7.43 7.35-7.45 BASIC METABOLIC [id number] 17:52:00 Test Item Value Reference Range Comments SODIUM (BEAKER) (test 135 meq/L 136-145 jnxt=716) POTASSIUM (BEAKER) (test 4.3 meq/L 3.5-5.1 dkgz=975) CHLORIDE (BEAKER) (test 102 meq/L 98-107 ubbu=854) CO2 (BEAKER) (test 27 meq/L 22-29 lyww=353) BLOOD UREA NITROGEN 17 mg/dL 7-21 (BEAKER) (test imos=594) CREATININE (BEAKER) (test 2.72 mg/dL 0.57-1.25 ydwh=176) GLUCOSE RANDOM (BEAKER) 141 mg/dL 70-105 (test dvke=487) CALCIUM (BEAKER) (test 8.3 mg/dL 8.4-10.2 qujp=573) EGFR (BEAKER) (test 25 mL/min/1.73 sq m ESTIMATED GFR IS NOT ovtb=1628) ACCURATE CREATININE CLEARANCE IN PREDICTING GLOMERULAR FILTRATION RATE. ESTIMATED GFR IS NOT APPLICABLE FOR DIALYSIS PATIENTS. Specimen moderately ictericCALCIUM, [id number] 17:48:00 Test Item Value Reference Range Comments CALCIUM IONIZED (BEAKER) (test keju=103) 1.14 mmol/L 1.12-1.27 PH, BLOOD (BEAKER) (test dqsv=7955) 7.41 POCT-GLUCOSE [id number] 17:45:00 Test Item Value Reference Range Comments POC-GLUCOSE METER (BEAKER) 164 mg/dL 70-110 TESTED AT [facility] [address] (test zmik=5019) [place] [address] LACTIC ACID, ARTERIAL, WHOLE [id number] 17:37:00 Test Item Value Reference Range Comments LACTATE BLOOD ARTERIAL (2) (BEAKER) (test 1.5 mmol/L 0.5-2.2 ckps=7974) Effective 09/15/2015: Units/Reference Range ChangeNew: 0.5-2.2 mmol/L Previous: 5 -20 mg/dLSpecimen moderately ictericCBC W/PLT COUNT & AUTO [id number] 17:35:00 Test Item Value Reference Range Comments WHITE BLOOD CELL COUNT (BEAKER) (test pwcc=947) 4.4 K/ L 3.5-10.5 RED BLOOD CELL COUNT (BEAKER) (test qyqb=653) 2.54 M/ L 4.63-6.08 HEMOGLOBIN (BEAKER) (test vlkt=546) 7.9 GM/DL 13.7-17.5 HEMATOCRIT (BEAKER) (test yrxw=314) 24.0 % 40.1-51.0 MEAN CORPUSCULAR VOLUME (BEAKER) (test uhiy=437) 94.5 fL 79.0-92.2 MEAN CORPUSCULAR HEMOGLOBIN (BEAKER) (test 31.1 pg 25.7-32.2 ygja=600) MEAN CORPUSCULAR HEMOGLOBIN CONC (BEAKER) (test 32.9 GM/DL 32.3-36.5 xamu=656) RED CELL DISTRIBUTION WIDTH (BEAKER) (test 19.3 % 11.6-14.4 okpa=963) PLATELET COUNT (BEAKER) (test fwnj=425) 40 K/CU MM 150-450 MEAN PLATELET VOLUME (BEAKER) (test vjvs=375) 10.1 fL 9.4-12.4 NUCLEATED RED BLOOD CELLS (BEAKER) (test 3 /100 WBC 0-0 huli=506) NEUTROPHILS RELATIVE PERCENT (BEAKER) (test 80 % ydzd=844) LYMPHOCYTES RELATIVE PERCENT (BEAKER) (test 8 % xwfk=797) MONOCYTES RELATIVE PERCENT (BEAKER) (test 11 % vdgb=451) EOSINOPHILS RELATIVE PERCENT (BEAKER) (test 0 % bwdn=288) BASOPHILS RELATIVE PERCENT (BEAKER) (test 0 % rywk=844) NEUTROPHILS ABSOLUTE COUNT (BEAKER) (test 3.53 K/ L 1.78-5.38 ozjp=170) LYMPHOCYTES ABSOLUTE COUNT (BEAKER) (test 0.35 K/ L 1.32-3.57 slox=590) MONOCYTES ABSOLUTE COUNT (BEAKER) (test zikz=855) 0.47 K/ L 0.30-0.82 EOSINOPHILS ABSOLUTE COUNT (BEAKER) (test 0.01 K/ L 0.04-0.54 qmoz=388) BASOPHILS ABSOLUTE COUNT (BEAKER) (test fnsa=442) 0.01 K/ L 0.01-0.08 IMMATURE GRANULOCYTES-RELATIVE PERCENT (BEAKER) 1 % 0-1 (test oplc=9156) PROTHROMBIN [id number] 17:29:00 Test Item Value Reference Range Comments PROTIME (BEAKER) (test jecq=192) 28.6 seconds 11.7-14.7 INR (BEAKER) (test jqlh=322) 2.7 <=5.9 RECOMMENDED COUMADIN/WARFARIN INR THERAPY RANGESSTANDARD DOSE: 2.0 - 3.0 Includes: PROPHYLAXIS forvenous thrombosis, systemic embolization; TREATMENT for venous thrombosis and/or pulmonary embolus.HIGH RISK: Target INR is 2.5-3.5 for patients with mechanical heart valves.[id number] 17:29:00 Test Item Value Reference Range Comments FIBRINOGEN LEVEL (BEAKER) (test mcka=611) 201 mg/dl 225-434 VITAMIN B12 AND [id number] 14:13:00 Test Item Value Reference Range Comments VITAMIN B12 (BEAKER) (test tnjj=395) > pg/mL 213-816 FOLATE (BEAKER) (test yrfk=237) 10.4 ng/mL >=7.0 CBC W/PLT COUNT & AUTO [id number] 13:41:00 Test Item Value Reference Range Comments WHITE BLOOD CELL COUNT (BEAKER) (test ztnl=208) 5.4 K/ L 3.5-10.5 RED BLOOD CELL COUNT (BEAKER) (test pizx=817) 2.53 M/ L 4.63-6.08 HEMOGLOBIN (BEAKER) (test mwpm=287) 7.8 GM/DL 13.7-17.5 HEMATOCRIT (BEAKER) (test mksw=125) 24.0 % 40.1-51.0 MEAN CORPUSCULAR VOLUME (BEAKER) (test ewgb=691) 94.9 fL 79.0-92.2 MEAN CORPUSCULAR HEMOGLOBIN (BEAKER) (test 30.8 pg 25.7-32.2 vagb=354) MEAN CORPUSCULAR HEMOGLOBIN CONC (BEAKER) (test 32.5 GM/DL 32.3-36.5 xhey=651) RED CELL DISTRIBUTION WIDTH (BEAKER) (test 19.3 % 11.6-14.4 jdmp=304) PLATELET COUNT (BEAKER) (test sirv=469) 44 K/CU MM 150-450 MEAN PLATELET VOLUME (BEAKER) (test vexu=448) 9.9 fL 9.4-12.4 NUCLEATED RED BLOOD CELLS (BEAKER) (test 2 /100 WBC 0-0 rokf=626) (CELLAVISION MANUAL DIFF)2018-01-27 13:41:00 Test Item Value Reference Range Comments NEUTROPHILS - REL (CELLAVISION)(BEAKER) (test 64 % iwtq=1154) LYMPHOCYTES - REL (CELLAVISION)(BEAKER) (test 7 % xdwg=1773) MONOCYTES - REL (CELLAVISION)(BEAKER) (test 5 % sskl=8558) BANDS - REL (CELLAVISION)(BEAKER) (test 24 % 0-10 tsnl=3273) NEUTROPHILS - ABS (CELLAVISION)(BEAKER) (test 3.46 K/ul 1.78-5.38 uvqz=6360) LYMPHOCYTES - ABS (CELLAVISION)(BEAKER) (test 0.38 K/ul 1.32-3.57 daqw=7667) MONOCYTES - ABS (CELLAVISION)(BEAKER) (test 0.27 K/uL 0.30-0.82 morg=6532) BANDS - ABS (CELLAVISION)(BEAKER) (test 1.30 K/uL 0.00-0.80 esip=3071) TOTAL COUNTED (BEAKER) (test uayn=9250) 100 MANUAL NRBC PER 100 CELLS (BEAKER) (test 3 /100 WBC 0-0 xsvs=7192) WBC MORPHOLOGY (BEAKER) (test rydk=997) Normal PLT MORPHOLOGY (BEAKER) (test yhnn=747) Normal POLYCHROMATOPHILLIC RBCS(BEAKER) (test lria=884) 1+ few ANISOCYTOSIS (BEAKER) (test myzu=999) 1+ few ARTIFACT (CELLAVISION)(BEAKER) (test fcxm=5439) Present PLATELET CONCENTRATION (CELLAVISION)(BEAKER) Decreased (test wffy=4376) Received comment: User comments: Slide comments:BILIRUBIN, [id number] 13: 30:00 Test Item Value Reference Range Comments BILIRUBIN DIRECT (BEAKER) (test wavw=342) 7.0 mg/dL 0.1-0.5 LACTIC ACID, ARTERIAL, WHOLE [id number] 13:25:00 Test Item Value Reference Range Comments LACTATE BLOOD ARTERIAL (2) (BEAKER) (test 1.8 mmol/L 0.5-2.2 akmy=9339) Effective 09/15/2015: Units/Reference Range ChangeNew: 0.5-2.2 mmol/L Previous: 5 -20 mg/dLSpecimen moderately ictericPROTHROMBIN [id number] 13:20:00 Test Item Value Reference Range Comments PROTIME (BEAKER) (test azvd=026) 29.7 seconds 11.7-14.7 INR (BEAKER) (test wmvz=125) 2.8 <=5.9 RECOMMENDED COUMADIN/WARFARIN INR THERAPY RANGESSTANDARD DOSE: 2.0 - 3.0 Includes: PROPHYLAXIS forvenous thrombosis, systemic embolization; TREATMENT for venous thrombosis and/or pulmonary embolus.HIGH RISK: Target INR is 2.5-3.5 for patients with mechanical heart valves.[id number] 13:20:00 Test Item Value Reference Range Comments FIBRINOGEN LEVEL (BEAKER) (test kpyb=153) 216 mg/dl 225-434 RAD, ABDOMEN/KUB, 1 VIEW [id number] 12:00:00Reason for exam:->corpakFINAL REPORT Abdomen. MEDICAL HISTORY: Corpak. COMPARISON STUDY : None available. FINDINGS: A single supine view of the abdomen demonstrates a feeding tube in place, the tip projecting at the junction of the third and fourth portions of the duodenum. A TIPS shunt is present. There is paucity of bowel gas. This film is insensitive for the detection of free air. Signed: Sebastian Burnseport Verified Date/Time: 01/27/2018 12:00:05 Reading Location: [place] [id number] CT Body Reading Room [facility] METABOLIC [id number] 09:09:00 Test Item Value Reference Range Comments SODIUM (BEAKER) (test 135 meq/L 136-145 qtil=941) POTASSIUM (BEAKER) (test 4.4 meq/L 3.5-5.1 lyqu=023) CHLORIDE (BEAKER) (test 101 meq/L 98-107 zshb=231) CO2 (BEAKER) (test 26 meq/L 22-29 wavw=005) BLOOD UREA NITROGEN 15 mg/dL 7-21 (BEAKER) (test cuqk=101) CREATININE (BEAKER) (test 2.77 mg/dL 0.57-1.25 jxhp=603) GLUCOSE RANDOM (BEAKER) 145 mg/dL 70-105 (test miip=160) CALCIUM (BEAKER) (test 8.7 mg/dL 8.4-10.2 wviu=429) EGFR (BEAKER) (test 24 mL/min/1.73 sq m ESTIMATED GFR IS NOT pbpq=9748) ACCURATE CREATININE CLEARANCE IN PREDICTING GLOMERULAR FILTRATION RATE. ESTIMATED GFR IS NOT APPLICABLE FOR DIALYSIS PATIENTS. Specimen moderately ictericRAD, CHEST, 1 VIEW, NON [id number] 09:05: 00Reason for exam:->intubatedShould this be performed at the bedside?-> YesFINAL REPORT AP chest HISTORY: Intubation COMPARISON: 01/26/2018 IMPRESSION:Endotracheal tube in satisfactory position. Stable cardiac silhouette. Worsened interstitial edema. Worsening aeration of the lung bases suggestive of atelectasis. Moderate effusions. No pneumothorax. Signed: Alexia Brayeport Verified Date/Time: 01/27/2018 09:05:55 Reading Location: [facility] [id number] Consult Reading Room [id number] 08:59:00 Test Item Value Reference Range Comments PHOSPHORUS (BEAKER) (test idqd=265) 3.9 mg/dL 2.3-4.7 [id number] 08:59:00 Test Item Value Reference Range Comments MAGNESIUM (BEAKER) (test edzr=400) 1.9 mg/dL 1.6-2.6 LACTIC ACID, ARTERIAL, WHOLE [id number] 08:55:00 Test Item Value Reference Range Comments LACTATE BLOOD ARTERIAL (2) (BEAKER) (test 2.4 mmol/L 0.5-2.2 rkek=5043) Effective 09/15/2015: Units/Reference Range ChangeNew: 0.5-2.2 mmol/L Previous: 5 -20 mg/dLSpecimen moderately ictericPROTHROMBIN [id number] 08:54:00 Test Item Value Reference Range Comments PROTIME (BEAKER) (test zivr=028) 29.7 seconds 11.7-14.7 INR (BEAKER) (test bnzs=514) 2.8 <=5.9 RECOMMENDED COUMADIN/WARFARIN INR THERAPY RANGESSTANDARD DOSE: 2.0 - 3.0 Includes: PROPHYLAXIS forvenous thrombosis, systemic embolization; TREATMENT for venous thrombosis and/or pulmonary embolus.HIGH RISK: Target INR is 2.5-3.5 for patients with mechanical heart valves.[id number] 08:54:00 Test Item Value Reference Range Comments FIBRINOGEN LEVEL (BEAKER) (test nwbb=386) 230 mg/dl 225-434 CALCIUM, [id number] 08:20:00 Test Item Value Reference Range Comments CALCIUM IONIZED (BEAKER) (test limc=888) 1.12 mmol/L 1.12-1.27 PH, BLOOD (BEAKER) (test yfuo=3047) 7.42 POCT-GLUCOSE [id number] 08:14:00 Test Item Value Reference Range Comments POC-GLUCOSE METER (BEAKER) 155 mg/dL 70-110 TESTED AT [address] (test xsxe=5299) [facility] [address] CBC W/PLT COUNT & AUTO [id number] 07:11:00 Test Item Value Reference Range Comments WHITE BLOOD CELL COUNT (BEAKER) (test ilsn=675) 6.5 K/ L 3.5-10.5 RED BLOOD CELL COUNT (BEAKER) (test boes=223) 2.64 M/ L 4.63-6.08 HEMOGLOBIN (BEAKER) (test wkzw=367) 8.1 GM/DL 13.7-17.5 HEMATOCRIT (BEAKER) (test wboc=225) 24.8 % 40.1-51.0 MEAN CORPUSCULAR VOLUME (BEAKER) (test pxoq=522) 93.9 fL 79.0-92.2 MEAN CORPUSCULAR HEMOGLOBIN (BEAKER) (test 30.7 pg 25.7-32.2 dzko=074) MEAN CORPUSCULAR HEMOGLOBIN CONC (BEAKER) (test 32.7 GM/DL 32.3-36.5 tzhm=495) RED CELL DISTRIBUTION WIDTH (BEAKER) (test 19.8 % 11.6-14.4 gtkl=095) PLATELET COUNT (BEAKER) (test kgjh=160) 59 K/CU MM 150-450 MEAN PLATELET VOLUME (BEAKER) (test fpjy=072) 10.4 fL 9.4-12.4 NUCLEATED RED BLOOD CELLS (BEAKER) (test 2 /100 WBC 0-0 suvp=144) (CELLAVISION MANUAL DIFF)2018-01-27 07:11:00 Test Item Value Reference Range Comments NEUTROPHILS - REL (CELLAVISION)(BEAKER) (test 87 % kwml=6560) LYMPHOCYTES - REL (CELLAVISION)(BEAKER) (test 5 % bsqr=5409) MONOCYTES - REL (CELLAVISION)(BEAKER) (test 3 % ylwi=5576) BANDS - REL (CELLAVISION)(BEAKER) (test 5 % 0-10 fzth=9562) NEUTROPHILS - ABS (CELLAVISION)(BEAKER) (test 5.66 K/ul 1.78-5.38 nzeq=9230) LYMPHOCYTES - ABS (CELLAVISION)(BEAKER) (test 0.33 K/ul 1.32-3.57 vrmq=7400) MONOCYTES - ABS (CELLAVISION)(BEAKER) (test 0.20 K/uL 0.30-0.82 jkpt=3435) BANDS - ABS (CELLAVISION)(BEAKER) (test 0.33 K/uL 0.00-0.80 ghty=0692) TOTAL COUNTED (BEAKER) (test sgpe=5854) 100 MANUAL NRBC PER 100 CELLS (BEAKER) (test 2 /100 WBC 0-0 neaq=4233) RBC MORPHOLOGY (BEAKER) (test wdhm=860) Normal PLT MORPHOLOGY (BEAKER) (test iulq=328) Normal SMUDGE CELLS (BEAKER) (test eeek=2468) Present ARTIFACT (CELLAVISION)(BEAKER) (test iuju=6214) Present PLATELET CONCENTRATION (CELLAVISION)(BEAKER) Decreased (test vowx=3515) Received comment: User comments: Slide comments:CBC W/PLT COUNT & AUTO [id number] 07:10:00 Test Item Value Reference Range Comments WHITE BLOOD CELL COUNT (BEAKER) (test evdl=801) 6.8 K/ L 3.5-10.5 RED BLOOD CELL COUNT (BEAKER) (test tqws=612) 2.65 M/ L 4.63-6.08 HEMOGLOBIN (BEAKER) (test vvgb=882) 8.1 GM/DL 13.7-17.5 HEMATOCRIT (BEAKER) (test istl=381) 25.2 % 40.1-51.0 MEAN CORPUSCULAR VOLUME (BEAKER) (test mdwe=594) 95.1 fL 79.0-92.2 MEAN CORPUSCULAR HEMOGLOBIN (BEAKER) (test 30.6 pg 25.7-32.2 tlni=247) MEAN CORPUSCULAR HEMOGLOBIN CONC (BEAKER) (test 32.1 GM/DL 32.3-36.5 grgn=931) RED CELL DISTRIBUTION WIDTH (BEAKER) (test 19.5 % 11.6-14.4 dyso=983) PLATELET COUNT (BEAKER) (test plrp=449) 63 K/CU MM 150-450 MEAN PLATELET VOLUME (BEAKER) (test gzor=678) 10.3 fL 9.4-12.4 NUCLEATED RED BLOOD CELLS (BEAKER) (test 2 /100 WBC 0-0 avav=707) NEUTROPHILS RELATIVE PERCENT (BEAKER) (test 82 % qhsy=202) LYMPHOCYTES RELATIVE PERCENT (BEAKER) (test 7 % ebau=860) MONOCYTES RELATIVE PERCENT (BEAKER) (test 10 % ptby=741) EOSINOPHILS RELATIVE PERCENT (BEAKER) (test 0 % ztgd=908) BASOPHILS RELATIVE PERCENT (BEAKER) (test 0 % ggcs=554) NEUTROPHILS ABSOLUTE COUNT (BEAKER) (test 5.60 K/ L 1.78-5.38 tmgo=751) LYMPHOCYTES ABSOLUTE COUNT (BEAKER) (test 0.47 K/ L 1.32-3.57 njor=051) MONOCYTES ABSOLUTE COUNT (BEAKER) (test pzdk=828) 0.67 K/ L 0.30-0.82 EOSINOPHILS ABSOLUTE COUNT (BEAKER) (test 0.01 K/ L 0.04-0.54 ucdg=820) BASOPHILS ABSOLUTE COUNT (BEAKER) (test fdca=019) 0.01 K/ L 0.01-0.08 IMMATURE GRANULOCYTES-RELATIVE PERCENT (BEAKER) 1 % 0-1 (test qxev=1944) COMPREHENSIVE METABOLIC [id number] 04:09:00 Test Item Value Reference Range Comments TOTAL PROTEIN (BEAKER) 5.2 gm/dL 6.0-8.3 (test pkgv=684) ALBUMIN (BEAKER) (test 2.7 g/dL 3.5-5.0 mgeq=5180) ALKALINE PHOSPHATASE 613 U/L 40-150 (BEAKER) (test hlze=337) BILIRUBIN TOTAL (BEAKER) 10.4 mg/dL 0.2-1.2 (test cqai=724) SODIUM (BEAKER) (test 138 meq/L 136-145 ovgj=705) POTASSIUM (BEAKER) (test 4.4 meq/L 3.5-5.1 cpkk=924) CHLORIDE (BEAKER) (test 103 meq/L 98-107 mjms=723) CO2 (BEAKER) (test 25 meq/L 22-29 dqpg=314) BLOOD UREA NITROGEN 15 mg/dL 7-21 (BEAKER) (test xngx=245) CREATININE (BEAKER) (test 2.91 mg/dL 0.57-1.25 qnvw=821) GLUCOSE RANDOM (BEAKER) 133 mg/dL 70-105 (test pdvg=260) CALCIUM (BEAKER) (test 9.0 mg/dL 8.4-10.2 puow=227) AST (SGOT) (BEAKER) (test > U/L 5-34 dqrj=745) ALT (SGPT) (BEAKER) (test 1289 U/L 6-55 bkmi=994) EGFR (BEAKER) (test 23 mL/min/1.73 sq m ESTIMATED GFR IS NOT umsg=3191) ACCURATE CREATININE CLEARANCE IN PREDICTING GLOMERULAR FILTRATION RATE. ESTIMATED GFR IS NOT APPLICABLE FOR DIALYSIS PATIENTS. Specimen moderately ictericPROTHROMBIN [id number] 04:03:00 Test Item Value Reference Range Comments PROTIME (BEAKER) (test meht=321) 30.3 seconds 11.7-14.7 INR (BEAKER) (test ppoo=532) 2.9 <=5.9 RECOMMENDED COUMADIN/WARFARIN INR THERAPY RANGESSTANDARD DOSE: 2.0 - 3.0 Includes: PROPHYLAXIS forvenous thrombosis, systemic embolization; TREATMENT for venous thrombosis and/or pulmonary embolus.HIGH RISK: Target INR is 2.5-3.5 for patients with mechanical heart valves.[id number] 04:03:00 Test Item Value Reference Range Comments FIBRINOGEN LEVEL (BEAKER) (test gqrt=294) 254 mg/dl 225-434 BLOOD GAS, [id number] 04:02:00 Test Item Value Reference Range Comments PH ARTERIAL (BEAKER) (test wdbl=096) 7.39 7.35-7.45 PCO2 ARTERIAL (BEAKER) (test gxal=579) 45 mmHg 35-45 PO2 ARTERIAL (BEAKER) (test frct=493) 126 mmHg 80-90 O2 SATURATION ARTERIAL (BEAKER) (test zfry=223) 98.4 % 96.0-97.0 HCO3 ARTERIAL (BEAKER) (test jxvv=763) 27 mmol/L 21-29 BASE EXCESS ARTERIAL (BEAKER) (test nkbx=788) 1.6 mmol/L -2.0-3.0 PATIENT TEMPERATURE (BEAKER) (test dkjt=6246) 37.5 C FIO2 (BEAKER) (test bpof=2510) 40.0 % LACTIC ACID, ARTERIAL, WHOLE [id number] 04:02:00 Test Item Value Reference Range Comments LACTATE BLOOD ARTERIAL (2) (BEAKER) (test 4.9 mmol/L 0.5-2.2 qxmt=2392) Effective 09/15/2015: Units/Reference Range ChangeNew: 0.5-2.2 mmol/L Previous: 5 -20 mg/dLSpecimen moderately ictericBASIC METABOLIC [id number] 00:40:00 Test Item Value Reference Range Comments SODIUM (BEAKER) (test 135 meq/L 136-145 wxsh=111) POTASSIUM (BEAKER) (test 4.5 meq/L 3.5-5.1 ujyd=227) CHLORIDE (BEAKER) (test 102 meq/L 98-107 pava=994) CO2 (BEAKER) (test 25 meq/L 22-29 scjt=614) BLOOD UREA NITROGEN 14 mg/dL 7-21 (BEAKER) (test keqs=977) CREATININE (BEAKER) (test 2.87 mg/dL 0.57-1.25 rlum=256) GLUCOSE RANDOM (BEAKER) 117 mg/dL 70-105 (test kzlr=178) CALCIUM (BEAKER) (test 8.3 mg/dL 8.4-10.2 ceid=962) EGFR (BEAKER) (test 23 mL/min/1.73 sq m ESTIMATED GFR IS NOT fxvu=0361) ACCURATE CREATININE CLEARANCE IN PREDICTING GLOMERULAR FILTRATION RATE. ESTIMATED GFR IS NOT APPLICABLE FOR DIALYSIS PATIENTS. Specimen moderately ictericLACTIC ACID, ARTERIAL, WHOLE [id number] 00:30:00 Test Item Value Reference Range Comments LACTATE BLOOD ARTERIAL (2) (BEAKER) (test 3.4 mmol/L 0.5-2.2 zxuf=3092) Effective 09/15/2015: Units/Reference Range ChangeNew: 0.5-2.2 mmol/L Previous: 5 -20 mg/dLSpecimen moderately ictericCALCIUM, [id number] 00:15:00 Test Item Value Reference Range Comments CALCIUM IONIZED (BEAKER) (test ijmq=213) 1.06 mmol/L 1.12-1.27 PH, BLOOD (BEAKER) (test xmcj=2082) 7.47 POCT-GLUCOSE [id number] 00:04:00 Test Item Value Reference Range Comments POC-GLUCOSE METER (BEAKER) 111 mg/dL 70-110 TESTED AT [facility] [address] [facility] (test mqvh=3488) [facility] [address] PROTHROMBIN [id number] 00:03:00 Test Item Value Reference Range Comments PROTIME (BEAKER) (test hoyy=588) 30.6 seconds 11.7-14.7 INR (BEAKER) (test yxwv=508) 2.9 <=5.9 RECOMMENDED COUMADIN/WARFARIN INR THERAPY RANGESSTANDARD DOSE: 2.0 - 3.0 Includes: PROPHYLAXIS forvenous thrombosis, systemic embolization; TREATMENT for venous thrombosis and/or pulmonary embolus.HIGH RISK: Target INR is 2.5-3.5 for patients with mechanical heart valves.[id number] 00:03:00 Test Item Value Reference Range Comments FIBRINOGEN LEVEL (BEAKER) (test gmwp=070) 244 mg/dl 225-434 POCT-GLUCOSE [id number] 22:08:00 Test Item Value Reference Range Comments POC-GLUCOSE METER (BEAKER) 107 mg/dL 70-110 TESTED AT [facility] [address] [facility] (test cetg=8874) [facility] [address] [id number] 20:38:00 Test Item Value Reference Range Comments FIBRINOGEN LEVEL (BEAKER) (test cwlf=355) 237 mg/dl 225-434 LACTIC ACID, ARTERIAL, WHOLE [id number] 20:37:00 Test Item Value Reference Range Comments LACTATE BLOOD ARTERIAL (2) (BEAKER) (test 3.8 mmol/L 0.5-2.2 tvhq=4226) Effective 09/15/2015: Units/Reference Range ChangeNew: 0.5-2.2 mmol/L Previous: 5 -20 mg/dLSpecimen moderately ictericPROTHROMBIN [id number] 20:37:00 Test Item Value Reference Range Comments PROTIME (BEAKER) (test beai=570) 29.4 seconds 11.7-14.7 INR (BEAKER) (test zveh=377) 2.8 <=5.9 RECOMMENDED COUMADIN/WARFARIN INR THERAPY RANGESSTANDARD DOSE: 2.0 - 3.0 Includes: PROPHYLAXIS forvenous thrombosis, systemic embolization; TREATMENT for venous thrombosis and/or pulmonary embolus.HIGH RISK: Target INR is 2.5-3.5 for patients with mechanical heart valves.[id number] 20:37:00 Test Item Value Reference Range Comments PHOSPHORUS (BEAKER) (test prod=232) 4.4 mg/dL 2.3-4.7 [id number] 20:37:00 Test Item Value Reference Range Comments MAGNESIUM (BEAKER) (test cmvd=976) 1.6 mg/dL 1.6-2.6 PH, [id number] 20:36:00 Test Item Value Reference Range Comments PH ARTERIAL (BEAKER) (test pcbe=415) 7.44 7.35-7.45 POCT-GLUCOSE [id number] 18:16:00 Test Item Value Reference Range Comments POC-GLUCOSE METER (BEAKER) 94 mg/dL 70-110 TESTED AT [facility] [address] [facility] (test sdqh=7643) [facility] [address] CBC W/PLT COUNT & AUTO [id number] 17:53:00 Test Item Value Reference Range Comments WHITE BLOOD CELL COUNT (BEAKER) (test coqk=674) 7.4 K/ L 3.5-10.5 RED BLOOD CELL COUNT (BEAKER) (test dkyu=269) 2.65 M/ L 4.63-6.08 HEMOGLOBIN (BEAKER) (test bspa=353) 8.1 GM/DL 13.7-17.5 HEMATOCRIT (BEAKER) (test lvda=114) 25.2 % 40.1-51.0 MEAN CORPUSCULAR VOLUME (BEAKER) (test ccng=936) 95.1 fL 79.0-92.2 MEAN CORPUSCULAR HEMOGLOBIN (BEAKER) (test 30.6 pg 25.7-32.2 enrf=491) MEAN CORPUSCULAR HEMOGLOBIN CONC (BEAKER) (test 32.1 GM/DL 32.3-36.5 guic=571) RED CELL DISTRIBUTION WIDTH (BEAKER) (test 19.9 % 11.6-14.4 csna=895) PLATELET COUNT (BEAKER) (test puqv=770) 65 K/CU MM 150-450 MEAN PLATELET VOLUME (BEAKER) (test kllc=154) 10.6 fL 9.4-12.4 NUCLEATED RED BLOOD CELLS (BEAKER) (test 2 /100 WBC 0-0 kqaq=054) NEUTROPHILS RELATIVE PERCENT (BEAKER) (test 86 % iqir=523) LYMPHOCYTES RELATIVE PERCENT (BEAKER) (test 5 % ecqs=092) MONOCYTES RELATIVE PERCENT (BEAKER) (test 8 % eazy=275) EOSINOPHILS RELATIVE PERCENT (BEAKER) (test 0 % zyxw=348) BASOPHILS RELATIVE PERCENT (BEAKER) (test 0 % djfv=959) NEUTROPHILS ABSOLUTE COUNT (BEAKER) (test 6.31 K/ L 1.78-5.38 bsbn=038) LYMPHOCYTES ABSOLUTE COUNT (BEAKER) (test 0.39 K/ L 1.32-3.57 hgsc=457) MONOCYTES ABSOLUTE COUNT (BEAKER) (test yuty=931) 0.56 K/ L 0.30-0.82 EOSINOPHILS ABSOLUTE COUNT (BEAKER) (test 0.00 K/ L 0.04-0.54 axjw=283) BASOPHILS ABSOLUTE COUNT (BEAKER) (test kkqa=368) 0.01 K/ L 0.01-0.08 IMMATURE GRANULOCYTES-RELATIVE PERCENT (BEAKER) 2 % 0-1 (test irpa=8123) BASIC METABOLIC [id number] 16:45:00 Test Item Value Reference Range Comments SODIUM (BEAKER) (test 138 meq/L 136-145 aglf=101) POTASSIUM (BEAKER) (test 4.5 meq/L 3.5-5.1 fxwh=514) CHLORIDE (BEAKER) (test 103 meq/L 98-107 jvzr=110) CO2 (BEAKER) (test 26 meq/L 22-29 whzz=424) BLOOD UREA NITROGEN 13 mg/dL 7-21 (BEAKER) (test boyi=800) CREATININE (BEAKER) (test 2.97 mg/dL 0.57-1.25 etce=352) GLUCOSE RANDOM (BEAKER) 95 mg/dL 70-105 (test zzrr=286) CALCIUM (BEAKER) (test 8.7 mg/dL 8.4-10.2 gisi=695) EGFR (BEAKER) (test 22 mL/min/1.73 sq m ESTIMATED GFR IS NOT wfde=2644) ACCURATE CREATININE CLEARANCE IN PREDICTING GLOMERULAR FILTRATION RATE. ESTIMATED GFR IS NOT APPLICABLE FOR DIALYSIS PATIENTS. Specimen moderately ictericLACTIC ACID, ARTERIAL, WHOLE [id number] 16:40:00 Test Item Value Reference Range Comments LACTATE BLOOD ARTERIAL (2) (BEAKER) (test 4.5 mmol/L 0.5-2.2 vdmz=1979) Effective 09/15/2015: Units/Reference Range ChangeNew: 0.5-2.2 mmol/L Previous: 5 -20 mg/dLSpecimen moderately ictericCALCIUM, [id number] 16:29:00 Test Item Value Reference Range Comments CALCIUM IONIZED (BEAKER) (test pken=127) 1.10 mmol/L 1.12-1.27 PH, BLOOD (BEAKER) (test iaul=4144) 7.42 PROTHROMBIN [id number] 16:27:00 Test Item Value Reference Range Comments PROTIME (BEAKER) (test rqmo=966) 30.0 seconds 11.7-14.7 INR (BEAKER) (test lmsb=036) 2.9 <=5.9 RECOMMENDED COUMADIN/WARFARIN INR THERAPY RANGESSTANDARD DOSE: 2.0 - 3.0 Includes: PROPHYLAXIS forvenous thrombosis, systemic embolization; TREATMENT for venous thrombosis and/or pulmonary embolus.HIGH RISK: Target INR is 2.5-3.5 for patients with mechanical heart valves.[id number] 16:27:00 Test Item Value Reference Range Comments FIBRINOGEN LEVEL (BEMANDO) (test cxjc=570) 237 mg/dl 225-434 CT BRAIN WITHOUT IV CONTRAST - [id number] 15:28:00Reason for exam:-> low platelets new pupillary defectFINAL REPORT CT head without contrast. Comparisons: No Reason for exam: low platelets new pupillary defect. Discussion: Multiple axial CT images of the head are provided without contrast evaluated in brain and bone windows. Dose modulation, iterative reconstruction, and/or weight based adjustment of the mA/kV was utilized to reduce the radiation dose to as low as reasonably achievable. There is no CT evidence of intracranial hemorrhage, mass-effect, hydrocephalus, shift, or extra-axial collections. The visualized dural sinus regions, orbital contents, paranasal sinuses, bones and surrounding soft tissues are unremarkable. Impressions: 1. No specific evidence of acute intracranial abnormality. Signed: Stu Ball Verified Date/Time: 01/26/2018 15: 28:44 Reading Location: [facility] C013V Neuro Reading Room POCT-GLUCOSE [id number] 12:15:00 Test Item Value Reference Range Comments POC-GLUCOSE METER (BEAKER) 78 mg/dL 70-110 TESTED AT [facility] [address] (test hnon=5886) [place] [address] CBC W/PLT COUNT & AUTO [id number] 12:12:00 Test Item Value Reference Range Comments WHITE BLOOD CELL COUNT (BEAKER) (test agjz=841) 6.7 K/ L 3.5-10.5 RED BLOOD CELL COUNT (BEAKER) (test qwdo=231) 2.70 M/ L 4.63-6.08 HEMOGLOBIN (BEAKER) (test sydu=765) 8.3 GM/DL 13.7-17.5 HEMATOCRIT (BEAKER) (test pdyc=705) 25.5 % 40.1-51.0 MEAN CORPUSCULAR VOLUME (BEAKER) (test hzlx=314) 94.4 fL 79.0-92.2 MEAN CORPUSCULAR HEMOGLOBIN (BEAKER) (test 30.7 pg 25.7-32.2 xxlk=043) MEAN CORPUSCULAR HEMOGLOBIN CONC (BEAKER) (test 32.5 GM/DL 32.3-36.5 bevw=140) RED CELL DISTRIBUTION WIDTH (BEAKER) (test 20.0 % 11.6-14.4 lcth=151) PLATELET COUNT (BEAKER) (test eceb=503) 60 K/CU MM 150-450 MEAN PLATELET VOLUME (BEAKER) (test vjcj=414) 10.6 fL 9.4-12.4 NUCLEATED RED BLOOD CELLS (BEAKER) (test 1 /100 WBC 0-0 hnmw=692) [id number] 12:05:00 Test Item Value Reference Range Comments FIBRINOGEN LEVEL (BEAKER) (test kzhw=456) 268 mg/dl 225-434 PROTHROMBIN [id number] 12:05:00 Test Item Value Reference Range Comments PROTIME (BEAKER) (test ysyn=513) 27.1 seconds 11.7-14.7 INR (BEAKER) (test bkzn=909) 2.5 <=5.9 RECOMMENDED COUMADIN/WARFARIN INR THERAPY RANGESSTANDARD DOSE: 2.0 - 3.0 Includes: PROPHYLAXIS forvenous thrombosis, systemic embolization; TREATMENT for venous thrombosis and/or pulmonary embolus.HIGH RISK: Target INR is 2.5-3.5 for patients with mechanical heart valves.LACTIC ACID, ARTERIAL, WHOLE [id number] 11:55:00 Test Item Value Reference Range Comments LACTATE BLOOD ARTERIAL (2) (BEAKER) (test 5.1 mmol/L 0.5-2.2 jhel=4060) Effective 09/15/2015: Units/Reference Range ChangeNew: 0.5-2.2 mmol/L Previous: 5 -20 mg/dLSpecimen moderately [id number] 10:33:00 Test Item Value Reference Range Comments AMMONIA (BEAKER) (test kcyv=158) 146 mol/L 18-72 CBC W/PLT COUNT & AUTO [id number] 09:21:00 Test Item Value Reference Range Comments WHITE BLOOD CELL COUNT (BEAKER) (test tiwk=384) 6.5 K/ L 3.5-10.5 RED BLOOD CELL COUNT (BEAKER) (test gtan=289) 2.65 M/ L 4.63-6.08 HEMOGLOBIN (BEAKER) (test olhj=538) 8.1 GM/DL 13.7-17.5 HEMATOCRIT (BEAKER) (test mwui=786) 24.9 % 40.1-51.0 MEAN CORPUSCULAR VOLUME (BEAKER) (test xwee=833) 94.0 fL 79.0-92.2 MEAN CORPUSCULAR HEMOGLOBIN (BEAKER) (test 30.6 pg 25.7-32.2 yhnh=522) MEAN CORPUSCULAR HEMOGLOBIN CONC (BEAKER) (test 32.5 GM/DL 32.3-36.5 kaoc=774) RED CELL DISTRIBUTION WIDTH (BEAKER) (test 19.9 % 11.6-14.4 asxf=336) PLATELET COUNT (BEAKER) (test hwyi=169) 68 K/CU MM 150-450 MEAN PLATELET VOLUME (BEAKER) (test tycg=529) 10.5 fL 9.4-12.4 NUCLEATED RED BLOOD CELLS (BEAKER) (test 1 /100 WBC 0-0 xywx=015) (CELLAVISION MANUAL DIFF)2018-01-26 09:21:00 Test Item Value Reference Range Comments NEUTROPHILS - REL (CELLAVISION)(BEAKER) (test 75 % ugse=3813) LYMPHOCYTES - REL (CELLAVISION)(BEAKER) (test 3 % uxwg=0055) MONOCYTES - REL (CELLAVISION)(BEAKER) (test 2 % gemn=5506) BANDS - REL (CELLAVISION)(BEAKER) (test 20 % 0-10 tstv=1119) NEUTROPHILS - ABS (CELLAVISION)(BEAKER) (test 4.88 K/ul 1.78-5.38 fpxc=5303) LYMPHOCYTES - ABS (CELLAVISION)(BEAKER) (test 0.20 K/ul 1.32-3.57 jilz=5267) MONOCYTES - ABS (CELLAVISION)(BEAKER) (test 0.13 K/uL 0.30-0.82 xlne=6048) BANDS - ABS (CELLAVISION)(BEAKER) (test 1.30 K/uL 0.00-0.80 cexl=1107) TOTAL COUNTED (BEAKER) (test uzlu=7493) 100 MANUAL NRBC PER 100 CELLS (BEAKER) (test 1 /100 WBC 0-0 idoh=5545) WBC MORPHOLOGY (BEAKER) (test ijrv=840) Normal PLT MORPHOLOGY (BEAKER) (test nnzl=186) Normal POLYCHROMATOPHILLIC RBCS(BEAKER) (test omtk=843) 1+ few ANISOCYTOSIS (BEAKER) (test oyml=865) 1+ few POIKILOCYTES (BEAKER) (test uehi=061) 1+ few ARTIFACT (CELLAVISION)(BEAKER) (test rxkr=1278) Present PLATELET CONCENTRATION (CELLAVISION)(BEAKER) Decreased (test gkzw=8654) Received comment: User comments: Slide comments:BASIC METABOLIC [id number] 09:09:00 Test Item Value Reference Range Comments SODIUM (BEAKER) (test 142 meq/L 136-145 gnnf=156) POTASSIUM (BEAKER) (test 4.6 meq/L 3.5-5.1 qkzb=376) CHLORIDE (BEAKER) (test 104 meq/L 98-107 sqyw=185) CO2 (BEAKER) (test 28 meq/L 22-29 unji=273) BLOOD UREA NITROGEN 14 mg/dL 7-21 (BEAKER) (test ksge=727) CREATININE (BEAKER) (test 3.12 mg/dL 0.57-1.25 ewne=855) GLUCOSE RANDOM (BEAKER) 80 mg/dL 70-105 (test kyqs=573) CALCIUM (BEAKER) (test 9.0 mg/dL 8.4-10.2 kzje=155) EGFR (BEAKER) (test 21 mL/min/1.73 sq m ESTIMATED GFR IS NOT sgma=6837) ACCURATE CREATININE CLEARANCE IN PREDICTING GLOMERULAR FILTRATION RATE. ESTIMATED GFR IS NOT APPLICABLE FOR DIALYSIS PATIENTS. Specimen moderately [id number] 09:04:00 Test Item Value Reference Range Comments PHOSPHORUS (BEAKER) (test oekq=872) 4.4 mg/dL 2.3-4.7 [id number] 09:04:00 Test Item Value Reference Range Comments MAGNESIUM (BEAKER) (test jlbz=185) 1.4 mg/dL 1.6-2.6 [id number] 09:03:00 Test Item Value Reference Range Comments FIBRINOGEN LEVEL (BEAKER) (test poqa=475) 254 mg/dl 225-434 PROTHROMBIN [id number] 09:01:00 Test Item Value Reference Range Comments PROTIME (BEAKER) (test iaql=509) 26.1 seconds 11.7-14.7 INR (BEAKER) (test nsri=133) 2.4 <=5.9 RECOMMENDED COUMADIN/WARFARIN INR THERAPY RANGESSTANDARD DOSE: 2.0 - 3.0 Includes: PROPHYLAXIS forvenous thrombosis, systemic embolization; TREATMENT for venous thrombosis and/or pulmonary embolus.HIGH RISK: Target INR is 2.5-3.5 for patients with mechanical heart valves.PH, [id number] 08:23:00 Test Item Value Reference Range Comments PH ARTERIAL (BEAKER) (test qgzw=194) 7.45 7.35-7.45 CALCIUM, [id number] 08:22:00 Test Item Value Reference Range Comments CALCIUM IONIZED (BEAKER) (test clzk=405) 1.12 mmol/L 1.12-1.27 PH, BLOOD (BEAKER) (test flvq=3410) 7.45 SPUTUM CULTURE + GRAM [id number] 07:53:00 Test Item Value Reference Range Comments CULTURE (BEAKER) (test <1+ Normal respiratory kody bzxy=2998) present GRAM STAIN RESULT (BEAKER) 1+ WBCs (test lxkt=6237) GRAM STAIN RESULT (BEAKER) 0-5 epithelial cells (test ljai=58328) GRAM STAIN RESULT (BEAKER) <1+ gram positive cocci in pairs (test ejmp=10891) GRAM STAIN RESULT (BEAKER) <1+ gram negative rods (test cdtd=867039) COMPREHENSIVE METABOLIC [id number] 06:47:00 Test Item Value Reference Range Comments TOTAL PROTEIN (BEAKER) 5.3 gm/dL 6.0-8.3 (test ojhk=221) ALBUMIN (BEAKER) (test 2.8 g/dL 3.5-5.0 kxjc=5068) ALKALINE PHOSPHATASE 654 U/L 40-150 (BEAKER) (test thmk=363) BILIRUBIN TOTAL (BEAKER) 8.0 mg/dL 0.2-1.2 (test tbya=574) SODIUM (BEAKER) (test 141 meq/L 136-145 jspn=946) POTASSIUM (BEAKER) (test 4.6 meq/L 3.5-5.1 csew=830) CHLORIDE (BEAKER) (test 104 meq/L 98-107 xofc=245) CO2 (BEAKER) (test 28 meq/L 22-29 qyog=946) BLOOD UREA NITROGEN 16 mg/dL 7-21 (BEAKER) (test fmpm=918) CREATININE (BEAKER) (test 3.36 mg/dL 0.57-1.25 zouc=410) GLUCOSE RANDOM (BEAKER) 79 mg/dL 70-105 (test ojhc=627) CALCIUM (BEAKER) (test 9.1 mg/dL 8.4-10.2 rimb=910) AST (SGOT) (BEAKER) (test U/L 5-34 HQA=8053 yspw=519) ALT (SGPT) (BEAKER) (test 1479 U/L 6-55 aiaj=463) EGFR (BEAKER) (test 19 mL/min/1.73 sq m ESTIMATED GFR IS NOT ccxn=1257) ACCURATE CREATININE CLEARANCE IN PREDICTING GLOMERULAR FILTRATION RATE. ESTIMATED GFR IS NOT APPLICABLE FOR DIALYSIS PATIENTS. Specimen moderately ictericBLOOD GAS, [id number] 05:11:00 Test Item Value Reference Range Comments PH ARTERIAL (BEAKER) (test rrlw=793) 7.47 7.35-7.45 PCO2 ARTERIAL (BEAKER) (test aiwv=779) 35 mmHg 35-45 PO2 ARTERIAL (BEAKER) (test soiz=552) 148 mmHg 80-90 O2 SATURATION ARTERIAL (BEAKER) (test qmkb=928) 99.1 % 96.0-97.0 HCO3 ARTERIAL (BEAKER) (test hfeu=903) 25 mmol/L 21-29 BASE EXCESS ARTERIAL (BEAKER) (test spfd=432) 0.8 mmol/L -2.0-3.0 PATIENT TEMPERATURE (BEAKER) (test iqwy=8641) 36.5 C FIO2 (BEAKER) (test uxna=2200) 60.0 % PROTHROMBIN [id number] 04:46:00 Test Item Value Reference Range Comments PROTIME (BEAKER) (test eijq=703) 23.8 seconds 11.7-14.7 INR (BEAKER) (test zzae=126) 2.1 <=5.9 RECOMMENDED COUMADIN/WARFARIN INR THERAPY RANGESSTANDARD DOSE: 2.0 - 3.0 Includes: PROPHYLAXIS forvenous thrombosis, systemic embolization; TREATMENT for venous thrombosis and/or pulmonary embolus.HIGH RISK: Target INR is 2.5-3.5 for patients with mechanical heart valves.[id number] 04:46:00 Test Item Value Reference Range Comments FIBRINOGEN LEVEL (BEAKER) (test muur=595) 269 mg/dl 225-434 LACTIC ACID, VENOUS, WHOLE [id number] 04:43:00 Test Item Value Reference Range Comments LACTATE BLOOD VENOUS (2) (BEAKER) (test 4.9 mmol/L 0.5-2.2 etuw=2975) Effective 09/15/2015: Units/Reference Range ChangeNew: 0.5-2.2 mmol/L Previous: 5 -20 mg/dLSpecimen moderately ictericRAD, CHEST, 1 VIEW, NON [id number] 03:59 :00Reason for exam:->intubatedShould this be performed at the bedside?-> YesFINAL REPORT CLINICAL INDICATION: Support lines. Comparison: 01/25/2018 The cardiomediastinal contours are stable. Central pulmonary vascular prominence and bilateral parenchymalopacities are unchanged. There is no pneumothorax. An endotracheal tube is stable in position. Signed: Tyler Cunningham MDReport Verified Date/Time: 01/26/2018 03:59:13 Reading Location : [address] Reading Room CBC W/PLT COUNT & AUTO [id number] 00:47:00 Test Item Value Reference Range Comments WHITE BLOOD CELL COUNT (BEAKER) (test sqwj=160) 6.1 K/ L 3.5-10.5 RED BLOOD CELL COUNT (BEAKER) (test mbjo=297) 2.59 M/ L 4.63-6.08 HEMOGLOBIN (BEAKER) (test hdzp=907) 7.9 GM/DL 13.7-17.5 HEMATOCRIT (BEAKER) (test psnv=637) 24.1 % 40.1-51.0 MEAN CORPUSCULAR VOLUME (BEAKER) (test wyto=507) 93.1 fL 79.0-92.2 MEAN CORPUSCULAR HEMOGLOBIN (BEAKER) (test 30.5 pg 25.7-32.2 vztl=223) MEAN CORPUSCULAR HEMOGLOBIN CONC (BEAKER) (test 32.8 GM/DL 32.3-36.5 uawf=562) RED CELL DISTRIBUTION WIDTH (BEAKER) (test 19.9 % 11.6-14.4 govd=894) PLATELET COUNT (BEAKER) (test ekwl=363) 35 K/CU MM 150-450 MEAN PLATELET VOLUME (BEAKER) (test ahba=096) 11.0 fL 9.4-12.4 NUCLEATED RED BLOOD CELLS (BEAKER) (test 1 /100 WBC 0-0 tvjv=365) (CELLAVISION MANUAL DIFF)2018-01-26 00:47:00 Test Item Value Reference Range Comments NEUTROPHILS - REL (CELLAVISION)(BEAKER) (test 73 % tguz=1437) LYMPHOCYTES - REL (CELLAVISION)(BEAKER) (test 2 % dilv=5275) MONOCYTES - REL (CELLAVISION)(BEAKER) (test 2 % yyww=7991) BANDS - REL (CELLAVISION)(BEAKER) (test zsad=0809) 23 % 0-10 NEUTROPHILS - ABS (CELLAVISION)(BEAKER) (test 4.45 K/ul 1.78-5.38 dmnj=5704) LYMPHOCYTES - ABS (CELLAVISION)(BEAKER) (test 0.12 K/ul 1.32-3.57 updl=2871) MONOCYTES - ABS (CELLAVISION)(BEAKER) (test 0.12 K/uL 0.30-0.82 onxv=9003) BANDS - ABS (CELLAVISION)(BEAKER) (test kzsd=8198) 1.40 K/uL 0.00-0.80 TOTAL COUNTED (BEAKER) (test acwk=0014) 100 RBC MORPHOLOGY (BEAKER) (test lbea=941) Normal PLT MORPHOLOGY (BEAKER) (test gbbm=195) Normal VACUOLATED NEUTROPHILS (BEAKER) (test hmol=123) Present ARTIFACT (CELLAVISION)(BEAKER) (test hkqp=9884) Present PLATELET CONCENTRATION (CELLAVISION)(BEAKER) (test Decreased hslc=8659) Received comment: User comments: Slide comments:[id number] 00:25:00 Test Item Value Reference Range Comments FIBRINOGEN LEVEL (BEAKER) (test otds=308) 253 mg/dl 225-434 BASIC METABOLIC [id number] 00:21:00 Test Item Value Reference Range Comments SODIUM (BEAKER) (test 145 meq/L 136-145 xygd=814) POTASSIUM (BEAKER) (test 4.6 meq/L 3.5-5.1 bdlq=263) CHLORIDE (BEAKER) (test 105 meq/L 98-107 otks=586) CO2 (BEAKER) (test 28 meq/L 22-29 ejeh=277) BLOOD UREA NITROGEN 17 mg/dL 7-21 (BEAKER) (test vonm=416) CREATININE (BEAKER) (test 3.55 mg/dL 0.57-1.25 hgbe=801) GLUCOSE RANDOM (BEAKER) 76 mg/dL 70-105 (test qwgy=028) CALCIUM (BEAKER) (test 8.7 mg/dL 8.4-10.2 ggpb=782) EGFR (BEAKER) (test 18 mL/min/1.73 sq m ESTIMATED GFR IS NOT qdtl=9061) ACCURATE CREATININE CLEARANCE IN PREDICTING GLOMERULAR FILTRATION RATE. ESTIMATED GFR IS NOT APPLICABLE FOR DIALYSIS PATIENTS. Specimen moderately ictericPROTHROMBIN [id number] 00:20:00 Test Item Value Reference Range Comments PROTIME (BEAKER) (test nqkr=471) 24.0 seconds 11.7-14.7 INR (BEAKER) (test vufq=732) 2.2 <=5.9 RECOMMENDED COUMADIN/WARFARIN INR THERAPY RANGESSTANDARD DOSE: 2.0 - 3.0 Includes: PROPHYLAXIS forvenous thrombosis, systemic embolization; TREATMENT for venous thrombosis and/or pulmonary embolus.HIGH RISK: Target INR is 2.5-3.5 for patients with mechanical heart valves.CALCIUM, [id number] 00:12:00 Test Item Value Reference Range Comments CALCIUM IONIZED (BEAKER) (test dqlz=521) 1.06 mmol/L 1.12-1.27 PH, BLOOD (BEAKER) (test brxx=2134) 7.45 [id number] 20:24:00 Test Item Value Reference Range Comments MAGNESIUM (BEAKER) (test vvpz=356) 0.9 mg/dL 1.6-2.6 [id number] 20:20:00 Test Item Value Reference Range Comments PHOSPHORUS (BEAKER) (test iizn=997) 4.8 mg/dL 2.3-4.7 PROTHROMBIN [id number] 20:18:00 Test Item Value Reference Range Comments PROTIME (BEAKER) (test woch=805) 26.6 seconds 11.7-14.7 INR (BEAKER) (test jmuq=210) 2.5 <=5.9 RECOMMENDED COUMADIN/WARFARIN INR THERAPY RANGESSTANDARD DOSE: 2.0 - 3.0 Includes: PROPHYLAXIS forvenous thrombosis, systemic embolization; TREATMENT for venous thrombosis and/or pulmonary embolus.HIGH RISK: Target INR is 2.5-3.5 for patients with mechanical heart valves.[id number] 20:18:00 Test Item Value Reference Range Comments FIBRINOGEN LEVEL (BEAKER) (test gxyg=438) 181 mg/dl 225-434 PH, [id number] 19:59:00 Test Item Value Reference Range Comments PH ARTERIAL (BEAKER) (test tzqw=432) 7.45 7.35-7.45 CBC W/PLT COUNT & AUTO [id number] 18:43:00 Test Item Value Reference Range Comments WHITE BLOOD CELL COUNT (BEAKER) (test hxnm=430) 6.1 K/ L 3.5-10.5 RED BLOOD CELL COUNT (BEAKER) (test ujrx=803) 2.69 M/ L 4.63-6.08 HEMOGLOBIN (BEAKER) (test nueb=791) 8.3 GM/DL 13.7-17.5 HEMATOCRIT (BEAKER) (test zdtb=150) 25.1 % 40.1-51.0 MEAN CORPUSCULAR VOLUME (BEAKER) (test tkya=269) 93.3 fL 79.0-92.2 MEAN CORPUSCULAR HEMOGLOBIN (BEAKER) (test 30.9 pg 25.7-32.2 kcsd=173) MEAN CORPUSCULAR HEMOGLOBIN CONC (BEAKER) (test 33.1 GM/DL 32.3-36.5 xknc=141) RED CELL DISTRIBUTION WIDTH (BEAKER) (test 19.9 % 11.6-14.4 segd=552) PLATELET COUNT (BEAKER) (test zbrm=698) 25 K/CU MM 150-450 MEAN PLATELET VOLUME (BEAKER) (test wxqf=999) 11.7 fL 9.4-12.4 NUCLEATED RED BLOOD CELLS (BEAKER) (test 0 /100 WBC 0-0 dqqh=421) NEUTROPHILS RELATIVE PERCENT (BEAKER) (test 79 % cydf=160) LYMPHOCYTES RELATIVE PERCENT (BEAKER) (test 12 % enju=805) MONOCYTES RELATIVE PERCENT (BEAKER) (test 6 % urkc=081) EOSINOPHILS RELATIVE PERCENT (BEAKER) (test 1 % tfas=063) BASOPHILS RELATIVE PERCENT (BEAKER) (test 0 % eeio=155) NEUTROPHILS ABSOLUTE COUNT (BEAKER) (test 4.77 K/ L 1.78-5.38 zqxf=979) LYMPHOCYTES ABSOLUTE COUNT (BEAKER) (test 0.75 K/ L 1.32-3.57 sfda=040) MONOCYTES ABSOLUTE COUNT (BEAKER) (test pdnb=906) 0.38 K/ L 0.30-0.82 EOSINOPHILS ABSOLUTE COUNT (BEAKER) (test 0.05 K/ L 0.04-0.54 olgn=775) BASOPHILS ABSOLUTE COUNT (BEAKER) (test mfrd=000) 0.02 K/ L 0.01-0.08 IMMATURE GRANULOCYTES-RELATIVE PERCENT (BEAKER) 1 % 0-1 (test lxcq=6261) BASIC METABOLIC [id number] 17:44:00 Test Item Value Reference Range Comments SODIUM (BEAKER) (test 151 meq/L 136-145 rryo=499) POTASSIUM (BEAKER) (test 4.5 meq/L 3.5-5.1 qsyw=590) CHLORIDE (BEAKER) (test 107 meq/L 98-107 qpwu=494) CO2 (BEAKER) (test 29 meq/L 22-29 khis=393) BLOOD UREA NITROGEN 20 mg/dL 7-21 (BEAKER) (test oqhj=127) CREATININE (BEAKER) (test 4.38 mg/dL 0.57-1.25 akiy=522) GLUCOSE RANDOM (BEAKER) 91 mg/dL 70-105 (test sryx=439) CALCIUM (BEAKER) (test 7.5 mg/dL 8.4-10.2 ifxa=147) EGFR (BEAKER) (test 14 mL/min/1.73 sq m ESTIMATED GFR IS NOT tbqi=3879) ACCURATE CREATININE CLEARANCE IN PREDICTING GLOMERULAR FILTRATION RATE. ESTIMATED GFR IS NOT APPLICABLE FOR DIALYSIS PATIENTS. Specimen moderately ictericPROTHROMBIN [id number] 17:34:00 Test Item Value Reference Range Comments PROTIME (BEAKER) (test rjkj=692) 26.6 seconds 11.7-14.7 INR (BEAKER) (test fabh=187) 2.5 <=5.9 RECOMMENDED COUMADIN/WARFARIN INR THERAPY RANGESSTANDARD DOSE: 2.0 - 3.0 Includes: PROPHYLAXIS forvenous thrombosis, systemic embolization; TREATMENT for venous thrombosis and/or pulmonary embolus.HIGH RISK: Target INR is 2.5-3.5 for patients with mechanical heart valves.[id number] 17:34:00 Test Item Value Reference Range Comments FIBRINOGEN LEVEL (BEAKER) (test bluo=030) 197 mg/dl 225-434 CALCIUM, [id number] 17:23:00 Test Item Value Reference Range Comments CALCIUM IONIZED (BEAKER) (test xhur=429) 0.87 mmol/L 1.12-1.27 PH, BLOOD (BEAKER) (test wqyl=1760) 7.44 CBC W/PLT COUNT & AUTO [id number] 15:16:00 Test Item Value Reference Range Comments WHITE BLOOD CELL COUNT (BEAKER) (test csab=170) 6.1 K/ L 3.5-10.5 RED BLOOD CELL COUNT (BEAKER) (test fnpm=363) 2.71 M/ L 4.63-6.08 HEMOGLOBIN (BEAKER) (test tuqc=417) 8.3 GM/DL 13.7-17.5 HEMATOCRIT (BEAKER) (test qrnp=374) 25.4 % 40.1-51.0 MEAN CORPUSCULAR VOLUME (BEAKER) (test ledl=581) 93.7 fL 79.0-92.2 MEAN CORPUSCULAR HEMOGLOBIN (BEAKER) (test 30.6 pg 25.7-32.2 winy=336) MEAN CORPUSCULAR HEMOGLOBIN CONC (BEAKER) (test 32.7 GM/DL 32.3-36.5 ocfd=725) RED CELL DISTRIBUTION WIDTH (BEAKER) (test 19.7 % 11.6-14.4 pqaj=274) PLATELET COUNT (BEAKER) (test ftsp=488) 32 K/CU MM 150-450 MEAN PLATELET VOLUME (BEAKER) (test elhi=412) 11.2 fL 9.4-12.4 NUCLEATED RED BLOOD CELLS (BEAKER) (test 0 /100 WBC 0-0 ihqg=990) (CELLAVISION MANUAL DIFF)2018-01-25 15:16:00 Test Item Value Reference Range Comments NEUTROPHILS - REL (CELLAVISION)(BEAKER) (test 79 % fmwy=0338) LYMPHOCYTES - REL (CELLAVISION)(BEAKER) (test 14 % gkuo=1473) MONOCYTES - REL (CELLAVISION)(BEAKER) (test 1 % houd=4873) EOSINOPHILS - REL (CELLAVISION)(BEAKER) (test 1 % jebj=6185) BASOPHILS - REL (CELLAVISION)(BEAKER) (test 1 % pumv=5233) BANDS - REL (CELLAVISION)(BEAKER) (test 4 % 0-10 eviy=4499) NEUTROPHILS - ABS (CELLAVISION)(BEAKER) (test 4.82 K/ul 1.78-5.38 nujx=6638) LYMPHOCYTES - ABS (CELLAVISION)(BEAKER) (test 0.85 K/ul 1.32-3.57 deex=4079) MONOCYTES - ABS (CELLAVISION)(BEAKER) (test 0.06 K/uL 0.30-0.82 mmsc=5717) EOSINOPHILS - ABS (CELLAVISION)(BEAKER) (test 0.06 K/uL 0.04-0.54 hcyr=6706) BASOPHILS - ABS (CELLAVISION)(BEAKER) (test 0.06 K/uL 0.01-0.08 lvkk=2131) BANDS - ABS (CELLAVISION)(BEAKER) (test 0.24 K/uL 0.00-0.80 nnkj=4552) TOTAL COUNTED (BEAKER) (test trvc=3826) 100 MANUAL NRBC PER 100 CELLS (BEAKER) (test 1 /100 WBC 0-0 hivq=7425) WBC MORPHOLOGY (BEAKER) (test cbyy=992) Normal GIANT PLATELETS (BEAKER) (test rklb=100) Present ANISOCYTOSIS (BEAKER) (test cgpi=648) 1+ few MICROCYTES (BEAKER) (test wyhu=266) 1+ few ELLIPTOCYTES (BEAKER) (test axvs=276) 1+ few ARTIFACT (CELLAVISION)(BEAKER) (test wztf=1135) Present PLATELET CONCENTRATION (CELLAVISION)(BEAKER) Decreased (test cgzu=3944) Received comment: User comments: Slide comments:JAZMINE [id number] 14:35: 00Reason for exam:->GI bleedFINAL REPORT Transjugular intrahepatic portosystemic shunt, 01/25/2018. History: Cirrhosis, portal hypertension, GI bleed. Modality: Fluoroscopy. Sedation: General anesthesia was utilized. The vital signs were monitored throughout the procedure by anesthesia and remained stable. Application Development Liaison: Rafael Shaw MD. Defensive Line Coach: MD Kristina. Approach: Right internal jugular vein Estimated blood loss: < 5 cc. Specimen: None. Fluoroscopy Time: 26.1 min.Reference Air Kerma (Ka, r): 1802 mGy. Technique: Informed consent was obtained. Discussion of risks, benefits, and alternatives were made with the patient's . The patient's expressed understanding and agreed to proceed. All elements maximal sterile barrier technique was utilized for this procedure, including utilization of sterilescrub solution for skin prep, a large sterile sheet to cover the areas of the patient that were not prepped, and hand hygiene, mask, head covering, and sterile gown for performing radiologist and scrubtechnologist. Ultrasound evaluation showed a patent and compressible right internal jugular vein, which was punctured under direct real-time ultrasound guidance with a micropuncture needle. An ultrasound image was saved to PACS. A 0.018 inch wire was placed through the needle into the right atrium.A 4 Lao micropuncture sheath was placed. A 0.035 inch J-wire was placed through the micropuncturesheath and the sheath was exchanged for a 9 Lao sheath. A 5 Lao angled tip catheter was used to select the right hepatic vein. Venogram was performed confirming position within the right hepatic vein. A [place] needle was advanced through the sheath into the right hepatic vein. A long 21-gauge needle was advanced through the [place] needle coaxially for 4 passes within the liver, with entry into the right portal vein upon the 4 pass. A 0.018 inch coronary wire was advanced into the portalvein. The 21-gauge needle and [place] needle were subsequently advanced over the wire into the portal vein. The 21 gauge needle and coronary wire were removed. A wire was advanced down the portal vein into the SMV and exchanged for Amplatz superstiff wire. A 4 Lao marked catheter was placedinto the portal vein for a simultaneous portal and hepatic injection for a DSA run. The tract was measured at eight cm. The 9 Lao sheath was exchanged for a 12 Lao long sheath which was advancedover the Amplatz wire into the portal vein. A 10 mm x eight cm long Viator covered stent was advanced down the sheath and deployed within the liver. The stent was dilated with a 10 x 4 balloon. A multisidehole straight catheter was then placed for pressure measurements. Repeat portogram was performed. The distal end of the TIPS stent appeared short so a 2nd 10 mm x 6 cm long Viatorr covered stent was deployed to extend into the right atrium. The stent was also dilated to 10 mm. Pressures are as follows (mmHg)Right atriumPortal vein Pre-TIPS: 34Post-TIPS:1724 The catheter and sheath were removed and hemostasis was obtained with manual compression. The patient patient was transported back to the ICU after the completion of the procedure. Findings: Venogram demonstrates patent right hepatic vein and intrahepatic IVC. Main, left, and right portal vein are patent. Impression: Successful, uncomplicated transjugular intrahepatic portosystemic shunt with general anesthesia. Signed: Rafael Shaw MDReport Verified Date/Time: 01/25/2018 14:35:57 Reading Location: [facility] P048 Angio Body Reading Room Electronicallysigned by: RAFAEL SHAW on 01/25/2018 02:35 PMURINALYSIS W/ [id number] 14:20:00 Test Item Value Reference Range Comments COLOR (BEAKER) (test iyjy=691) Dark Yellow CLARITY (BEAKER) (test bgjo=552) Cloudy SPECIFIC GRAVITY UA (BEAKER) (test numw=462) 1.046 1.001-1.035 PH UA (BEAKER) (test hkah=854) 5.5 5.0-8.0 PROTEIN UA (BEAKER) (test yxvo=736) 70 mg/dL Negative GLUCOSE UA (BEAKER) (test ayis=275) Negative Negative KETONES UA (BEAKER) (test zprd=343) Trace Negative BILIRUBIN UA (BEAKER) (test qyxj=318) Positive Negative BLOOD UA (BEAKER) (test mvmp=024) Large Negative NITRITE UA (BEAKER) (test cfmc=597) Negative Negative LEUKOCYTE ESTERASE UA (BEAKER) (test ukww=409) Negative Negative UROBILINOGEN UA (BEAKER) (test vqsc=697) 0.2 mg/dL 0.2-1.0 RBC UA (BEAKER) (test eklo=818) 3 /HPF WBC UA (BEAKER) (test gkpg=401) 26 /HPF MUCUS (BEAKER) (test qjrz=7802) Occasional SQUAMOUS EPITHELIAL (BEAKER) (test jtzu=184) 3 /HPF CRYSTALS, URINE (BEAKER) (test zdeg=9178) Occasional YEAST (BEAKER) (test nypy=2663) Few SOURCE(BEAKER) (test lbpq=0343) Urine, Samir THROMBOELASTOGRAPH (TEG)2018-01-25 14:10:00 Test Item Value Reference Range Comments TEG ACTIVATED CLOTTING TIME (BEAKER) (test 9.2 minutes 4.0-7.0 gkza=6516) TEG FIBRINOGEN ACTIVITY (BEAKER) (test 59.6 degrees 61.0-73.0 pudm=2616) TEG PLT. AGGREGATION (BEAKER) (test owzm=3978) 43.9 MM 55.0-65.0 TEG FIBRINOLYSIS (BEAKER) (test ngts=0381) 0.0 % 0.0-5.0 TGH ACTIVATED CLOTTING TIME (BEAKER) (test 8.2 minutes 4.0-7.0 mchh=6387) TGH FIBRINOGEN ACTIVITY (BEAKER) (test 62.1 degrees 61.0-73.0 bncu=5465) TGH PLT. AGGREGATION (BEAKER) (test dpix=1474) 41.1 MM 55.0-65.0 TGH FIBRINOLYSIS (BEAKER) (test fmjw=0875) 0.0 % 0.0-5.0 [id number] 13:32:00 Test Item Value Reference Range Comments CORTISOL, TOTAL (BEAKER) (test ohsv=2628) 6.3 ug/dL 3.7-19.4 RAD, CHEST, 1 VIEW, NON [id number] 13:10:00Reason for exam:->post trasfusion, low o1Yjtldp this be performed at the bedside?->YesFINAL REPORT Chest one view INDICATION: Post transfusion, low oxygen COMPARISON: 01/24/2018 IMPRESSION: ET tube terminates 4.1 cm above the mackenzie. Bilateral dependent pleural effusions have developed with lower lung airspace opacities, atelectasis versus pneumonitis. Mild to moderate pulmonary edema is now present. The cardiomediastinal silhouette is exaggerated by oblique positioning. A TIPS shunt is present. No pneumothorax is seen. Signed: Siri Walls MDReport Verified Date/Time: 01/25/2018 13:10:13 Reading Location : [address] Consult Reading Room BASI METABOLIC [id number] 12:22:00 Test Item Value Reference Range Comments SODIUM (BEAKER) (test 149 meq/L 136-145 lfyi=363) POTASSIUM (BEAKER) (test 5.0 meq/L 3.5-5.1 Specimen slightly asab=391) hemolyzed CHLORIDE (BEAKER) (test 105 meq/L 98-107 yowm=428) CO2 (BEAKER) (test 29 meq/L 22-29 swjj=886) BLOOD UREA NITROGEN 22 mg/dL 7-21 (BEAKER) (test ynhe=439) CREATININE (BEAKER) (test 4.27 mg/dL 0.57-1.25 Specimen slightly nmht=199) hemolyzed GLUCOSE RANDOM (BEAKER) 159 mg/dL 70-105 (test qxhe=094) CALCIUM (BEAKER) (test 6.6 mg/dL 8.4-10.2 anqs=824) EGFR (BEAKER) (test 15 mL/min/1.73 sq m ESTIMATED GFR IS NOT frph=9164) ACCURATE CREATININE CLEARANCE IN PREDICTING GLOMERULAR FILTRATION RATE. ESTIMATED GFR IS NOT APPLICABLE FOR DIALYSIS PATIENTS. Specimen moderately [id number] 12:12:00 Test Item Value Reference Range Comments FIBRINOGEN LEVEL (BEAKER) (test ultm=252) 143 mg/dl 225-434 PROTHROMBIN [id number] 12:02:00 Test Item Value Reference Range Comments PROTIME (BEAKER) (test qxzy=546) 29.9 seconds 11.7-14.7 INR (BEAKER) (test uaqs=195) 2.9 <=5.9 RECOMMENDED COUMADIN/WARFARIN INR THERAPY RANGESSTANDARD DOSE: 2.0 - 3.0 Includes: PROPHYLAXIS forvenous thrombosis, systemic embolization; TREATMENT for venous thrombosis and/or pulmonary embolus.HIGH RISK: Target INR is 2.5-3.5 for patients with mechanical heart valves.BLOOD GAS, [id number] 11:42:00 Test Item Value Reference Range Comments PH ARTERIAL (BEAKER) (test bqou=471) 7.43 7.35-7.45 PCO2 ARTERIAL (BEAKER) (test vfcx=773) 50 mmHg 35-45 PO2 ARTERIAL (BEAKER) (test zeuf=584) 71 mmHg 80-90 O2 SATURATION ARTERIAL (BEAKER) (test qpiy=777) 94.0 % 96.0-97.0 HCO3 ARTERIAL (BEAKER) (test ibmi=795) 32 mmol/L 21-29 BASE EXCESS ARTERIAL (BEAKER) (test dgof=117) 6.7 mmol/L -2.0-3.0 PATIENT TEMPERATURE (BEAKER) (test roxo=7640) 37.5 C FIO2 (BEAKER) (test duro=9601) 60.0 % BLOOD GAS, [id number] 09:41:00 Test Item Value Reference Range Comments PH ARTERIAL (BEAKER) (test zjzq=242) 7.50 7.35-7.45 PCO2 ARTERIAL (BEAKER) (test pecp=234) 38 mmHg 35-45 PO2 ARTERIAL (BEAKER) (test yrdr=738) 204 mmHg 80-90 O2 SATURATION ARTERIAL (BEAKER) (test wkqz=839) 99.5 % 96.0-97.0 HCO3 ARTERIAL (BEAKER) (test tkti=043) 29 mmol/L 21-29 BASE EXCESS ARTERIAL (BEAKER) (test ghks=424) 5.8 mmol/L -2.0-3.0 PATIENT TEMPERATURE (BEAKER) (test yjja=0923) 37.0 C FIO2 (BEAKER) (test rozm=4019) 100.0 % CBC W/PLT COUNT & AUTO [id number] 08:39:00 Test Item Value Reference Range Comments WHITE BLOOD CELL COUNT (BEAKER) (test ulsd=654) 7.7 K/ L 3.5-10.5 RED BLOOD CELL COUNT (BEAKER) (test mlyl=983) 1.90 M/ L 4.63-6.08 HEMOGLOBIN (BEAKER) (test hpgh=821) 6.2 GM/DL 13.7-17.5 HEMATOCRIT (BEAKER) (test saxo=814) 18.8 % 40.1-51.0 MEAN CORPUSCULAR VOLUME (BEAKER) (test ismx=118) 98.9 fL 79.0-92.2 MEAN CORPUSCULAR HEMOGLOBIN (BEAKER) (test 32.6 pg 25.7-32.2 yino=996) MEAN CORPUSCULAR HEMOGLOBIN CONC (BEAKER) (test 33.0 GM/DL 32.3-36.5 bdlh=323) RED CELL DISTRIBUTION WIDTH (BEAKER) (test 18.8 % 11.6-14.4 foxe=965) PLATELET COUNT (BEAKER) (test ykqh=835) 41 K/CU MM 150-450 MEAN PLATELET VOLUME (BEAKER) (test bnck=880) 10.8 fL 9.4-12.4 NUCLEATED RED BLOOD CELLS (BEAKER) (test 0 /100 WBC 0-0 xxwt=314) (CELLAVISION MANUAL DIFF)2018-01-25 08:39:00 Test Item Value Reference Range Comments NEUTROPHILS - REL (CELLAVISION)(BEAKER) (test 82 % iqai=9813) LYMPHOCYTES - REL (CELLAVISION)(BEAKER) (test 9 % usig=7199) MONOCYTES - REL (CELLAVISION)(BEAKER) (test 3 % fliz=8215) BASOPHILS - REL (CELLAVISION)(BEAKER) (test 2 % cuhq=9806) BANDS - REL (CELLAVISION)(BEAKER) (test 4 % 0-10 zpim=4136) NEUTROPHILS - ABS (CELLAVISION)(BEAKER) (test 6.31 K/ul 1.78-5.38 ykwd=5561) LYMPHOCYTES - ABS (CELLAVISION)(BEAKER) (test 0.69 K/ul 1.32-3.57 tppr=7563) MONOCYTES - ABS (CELLAVISION)(BEAKER) (test 0.23 K/uL 0.30-0.82 nkqv=2251) BASOPHILS - ABS (CELLAVISION)(BEAKER) (test 0.15 K/uL 0.01-0.08 axma=1055) BANDS - ABS (CELLAVISION)(BEAKER) (test 0.31 K/uL 0.00-0.80 ddws=7747) TOTAL COUNTED (BEAKER) (test ymto=1796) 100 MANUAL NRBC PER 100 CELLS (BEAKER) (test 1 /100 WBC 0-0 bvii=1096) SMUDGE CELLS (BEAKER) (test mdve=8440) Present GIANT PLATELETS (BEAKER) (test wjpn=487) Present STOMATOCYTES (BEAKER) (test umfx=683) 2+ moderate ARTIFACT (CELLAVISION)(BEAKER) (test pcjn=6950) Present PLATELET CONCENTRATION (CELLAVISION)(BEAKER) Decreased (test odez=6223) Received comment: User comments: Slide comments:HGB/HCT (H&H) - STAT [id number] 08:32:00 Test Item Value Reference Range Comments HEMOGLOBIN (BEAKER) (test iavc=519) 6.9 g/dL 13.0-16.8 HEMATOCRIT (BEAKER) (test zjvn=656) 20.0 % 40.0-50.0 POTASSIUM-STAT [id number] 07:37:00 Test Item Value Reference Range Comments POTASSIUM (BEAKER) (test vtbs=090) 5.3 meq/L 3.6-5.5 POCT-GLUCOSE [id number] 07:25:00 Test Item Value Reference Range Comments POC-GLUCOSE METER (BEAKER) 232 mg/dL 70-110 TESTED AT [facility] [address] [facility] (test jjcp=5686) [facility] [address] COMPREHENSIVE METABOLIC [id number] 06:04:00 Test Item Value Reference Range Comments TOTAL PROTEIN (BEAKER) 4.2 gm/dL 6.0-8.3 (test inpn=878) ALBUMIN (BEAKER) (test 2.2 g/dL 3.5-5.0 joyw=6559) ALKALINE PHOSPHATASE 279 U/L 40-150 (BEAKER) (test qmqp=188) BILIRUBIN TOTAL (BEAKER) 6.2 mg/dL 0.2-1.2 (test gbow=268) SODIUM (BEAKER) (test 153 meq/L 136-145 zaow=664) POTASSIUM (BEAKER) (test 6.1 meq/L 3.5-5.1 safn=834) CHLORIDE (BEAKER) (test 107 meq/L 98-107 tdtw=076) CO2 (BEAKER) (test 26 meq/L 22-29 eeli=279) BLOOD UREA NITROGEN 19 mg/dL 7-21 (BEAKER) (test ludn=538) CREATININE (BEAKER) (test 3.95 mg/dL 0.57-1.25 lwtn=738) GLUCOSE RANDOM (BEAKER) 45 mg/dL 70-105 (test fdhh=768) CALCIUM (BEAKER) (test 7.8 mg/dL 8.4-10.2 zkiq=790) AST (SGOT) (BEAKER) (test 3300 U/L 5-34 ozkp=644) ALT (SGPT) (BEAKER) (test 932 U/L 6-55 pefv=895) EGFR (BEAKER) (test 16 mL/min/1.73 sq m ESTIMATED GFR IS NOT jggb=6677) ACCURATE CREATININE CLEARANCE IN PREDICTING GLOMERULAR FILTRATION RATE. ESTIMATED GFR IS NOT APPLICABLE FOR DIALYSIS PATIENTS. Specimen moderately [id number] 05:20:00 Test Item Value Reference Range Comments FIBRINOGEN LEVEL (BEAKER) (test xmjq=562) 154 mg/dl 225-434 PROTHROMBIN TIME/[id number] 05:15:00 Test Item Value Reference Range Comments PROTIME (BEAKER) (test oryt=916) 26.9 seconds 11.7-14.7 INR (BEAKER) (test yrlo=624) 2.5 <=5.9 RECOMMENDED COUMADIN/WARFARIN INR THERAPY RANGESSTANDARD DOSE: 2.0 - 3.0 Includes: PROPHYLAXIS forvenous thrombosis, systemic embolization; TREATMENT for venous thrombosis and/or pulmonary embolus.HIGH RISK: Target INR is 2.5-3.5 for patients with mechanical heart valves.LACTIC ACID, VENOUS, WHOLE [id number] 05:00:00 Test Item Value Reference Range Comments LACTATE BLOOD VENOUS (2) (BEAKER) (test 12.8 mmol/L 0.5-2.2 zrmn=8851) Effective 09/15/2015: Units/Reference Range ChangeNew: 0.5-2.2 mmol/L Previous: 5 -20 mg/dLSpecimen moderately ictericTROPONIN [id number] 00:42:00 Test Item Value Reference Range Comments TROPONIN I (BEAKER) (test bgic=026) 0.95 ng/mL 0.00-0.03 Troponin I (TnI) levels must be interpreted in the context of the presenting symptoms and the clinical findings. Elevated TnI levels indicate myocardial damage, but are not specific for ischemic heart disease. Elevated TnI levels are seen in patients with other cardiac conditions (including myocarditis and congestive heart failure), and slight TnI elevations occur in patients with other conditions, including sepsis, renal failure, acidosis, acute neurological disease, and persistent tachyarrhythmia.[id number] 00:39:00 Test Item Value Reference Range Comments FIBRINOGEN LEVEL (BEAKER) (test fohl=571) 138 mg/dl 225-434 PROTHROMBIN TIME/[id number] 00:34:00 Test Item Value Reference Range Comments PROTIME (BEAKER) (test eund=185) 26.3 seconds 11.7-14.7 INR (BEAKER) (test vdyk=302) 2.4 <=5.9 RECOMMENDED COUMADIN/WARFARIN INR THERAPY RANGESSTANDARD DOSE: 2.0 - 3.0 Includes: PROPHYLAXIS forvenous thrombosis, systemic embolization; TREATMENT for venous thrombosis and/or pulmonary embolus.HIGH RISK: Target INR is 2.5-3.5 for patients with mechanical heart valves.CBC W/PLT COUNT & AUTO [id number] 00:23:00 Test Item Value Reference Range Comments WHITE BLOOD CELL COUNT (BEAKER) (test athn=489) 9.1 K/ L 3.5-10.5 RED BLOOD CELL COUNT (BEAKER) (test aecc=281) 2.22 M/ L 4.63-6.08 HEMOGLOBIN (BEAKER) (test otvd=015) 7.1 GM/DL 13.7-17.5 HEMATOCRIT (BEAKER) (test mlpf=528) 21.6 % 40.1-51.0 MEAN CORPUSCULAR VOLUME (BEAKER) (test vkxg=638) 97.3 fL 79.0-92.2 MEAN CORPUSCULAR HEMOGLOBIN (BEAKER) (test 32.0 pg 25.7-32.2 jldu=894) MEAN CORPUSCULAR HEMOGLOBIN CONC (BEAKER) (test 32.9 GM/DL 32.3-36.5 bzjb=379) RED CELL DISTRIBUTION WIDTH (BEAKER) (test 18.5 % 11.6-14.4 efed=681) PLATELET COUNT (BEAKER) (test rser=282) 54 K/CU MM 150-450 MEAN PLATELET VOLUME (BEAKER) (test qleq=007) 10.8 fL 9.4-12.4 NUCLEATED RED BLOOD CELLS (BEAKER) (test 0 /100 WBC 0-0 pink=537) NEUTROPHILS RELATIVE PERCENT (BEAKER) (test 78 % iack=630) LYMPHOCYTES RELATIVE PERCENT (BEAKER) (test 15 % myrq=613) MONOCYTES RELATIVE PERCENT (BEAKER) (test 6 % psoi=617) EOSINOPHILS RELATIVE PERCENT (BEAKER) (test 0 % ucnx=281) BASOPHILS RELATIVE PERCENT (BEAKER) (test 0 % dwoi=012) NEUTROPHILS ABSOLUTE COUNT (BEAKER) (test 7.08 K/ L 1.78-5.38 cqpu=699) LYMPHOCYTES ABSOLUTE COUNT (BEAKER) (test 1.31 K/ L 1.32-3.57 ibdq=810) MONOCYTES ABSOLUTE COUNT (BEAKER) (test rkhx=271) 0.52 K/ L 0.30-0.82 EOSINOPHILS ABSOLUTE COUNT (BEAKER) (test 0.02 K/ L 0.04-0.54 tsyi=346) BASOPHILS ABSOLUTE COUNT (BEAKER) (test ekal=974) 0.01 K/ L 0.01-0.08 IMMATURE GRANULOCYTES-RELATIVE PERCENT (BEAKER) 1 % 0-1 (test lztn=1037) LACTIC ACID, VENOUS, WHOLE [id number] 23:00:00 Test Item Value Reference Range Comments LACTATE BLOOD VENOUS (2) (BEAKER) (test 10.3 mmol/L 0.5-2.2 uuaa=7854) Effective 09/15/2015: Units/Reference Range ChangeNew: 0.5-2.2 mmol/L Previous: 5 -20 mg/dLSpecimen moderately [id number] 22:12:00 Test Item Value Reference Range Comments FIBRINOGEN LEVEL (BEAKER) (test enbs=338) 147 mg/dl 225-434 PROTHROMBIN [id number] 22:07:00 Test Item Value Reference Range Comments PROTIME (BEAKER) (test yzov=848) 23.7 seconds 11.7-14.7 INR (BEAKER) (test jsma=438) 2.1 <=5.9 RECOMMENDED COUMADIN/WARFARIN INR THERAPY RANGESSTANDARD DOSE: 2.0 - 3.0 Includes: PROPHYLAXIS forvenous thrombosis, systemic embolization; TREATMENT for venous thrombosis and/or pulmonary embolus.HIGH RISK: Target INR is 2.5-3.5 for patients with mechanical heart valves.CBC W/PLT COUNT & AUTO [id number] 21:59:00 Test Item Value Reference Range Comments WHITE BLOOD CELL COUNT (BEAKER) (test ofgv=933) 9.9 K/ L 3.5-10.5 RED BLOOD CELL COUNT (BEAKER) (test nbia=620) 2.52 M/ L 4.63-6.08 HEMOGLOBIN (BEAKER) (test kilt=797) 8.1 GM/DL 13.7-17.5 HEMATOCRIT (BEAKER) (test jzvu=710) 24.2 % 40.1-51.0 MEAN CORPUSCULAR VOLUME (BEAKER) (test tlwa=946) 96.0 fL 79.0-92.2 MEAN CORPUSCULAR HEMOGLOBIN (BEAKER) (test 32.1 pg 25.7-32.2 mbiw=230) MEAN CORPUSCULAR HEMOGLOBIN CONC (BEAKER) (test 33.5 GM/DL 32.3-36.5 rvry=869) RED CELL DISTRIBUTION WIDTH (BEAKER) (test 18.0 % 11.6-14.4 jwlw=545) PLATELET COUNT (BEAKER) (test tqpl=243) 59 K/CU MM 150-450 MEAN PLATELET VOLUME (BEAKER) (test qqmf=900) 10.9 fL 9.4-12.4 NUCLEATED RED BLOOD CELLS (BEAKER) (test 0 /100 WBC 0-0 exdz=053) NEUTROPHILS RELATIVE PERCENT (BEAKER) (test 80 % exrw=389) LYMPHOCYTES RELATIVE PERCENT (BEAKER) (test 14 % cpxg=079) MONOCYTES RELATIVE PERCENT (BEAKER) (test 5 % rhjo=083) EOSINOPHILS RELATIVE PERCENT (BEAKER) (test 0 % kvll=485) BASOPHILS RELATIVE PERCENT (BEAKER) (test 0 % huzn=146) NEUTROPHILS ABSOLUTE COUNT (BEAKER) (test 7.91 K/ L 1.78-5.38 wiei=760) LYMPHOCYTES ABSOLUTE COUNT (BEAKER) (test 1.37 K/ L 1.32-3.57 firq=215) MONOCYTES ABSOLUTE COUNT (BEAKER) (test hzav=865) 0.52 K/ L 0.30-0.82 EOSINOPHILS ABSOLUTE COUNT (BEAKER) (test 0.01 K/ L 0.04-0.54 logm=696) BASOPHILS ABSOLUTE COUNT (BEAKER) (test vrhr=327) 0.02 K/ L 0.01-0.08 IMMATURE GRANULOCYTES-RELATIVE PERCENT (BEAKER) 1 % 0-1 (test pbjr=1648) BLOOD GAS, [id number] 21:59:00 Test Item Value Reference Range Comments PH ARTERIAL (BEAKER) (test oiit=663) 7.42 7.35-7.45 PCO2 ARTERIAL (BEAKER) (test nrfw=548) 39 mmHg 35-45 PO2 ARTERIAL (BEAKER) (test nkbi=460) 205 mmHg 80-90 O2 SATURATION ARTERIAL (BEAKER) (test wpjp=011) 99.4 % 96.0-97.0 HCO3 ARTERIAL (BEAKER) (test yajx=841) 25 mmol/L 21-29 BASE EXCESS ARTERIAL (BEAKER) (test ltmk=348) 0.4 mmol/L -2.0-3.0 PATIENT TEMPERATURE (BEAKER) (test cynz=5952) 38.0 C FIO2 (BEAKER) (test jscd=1935) 21.0 % LACTIC ACID, VENOUS, WHOLE [id number] 18:10:00 Test Item Value Reference Range Comments LACTATE BLOOD VENOUS (2) (BEAKER) (test 10.3 mmol/L 0.5-2.2 loxp=5200) Effective 09/15/2015: Units/Reference Range ChangeNew: 0.5-2.2 mmol/L Previous: 5 -20 mg/dLSpecimen slightly ictericU/S, ABDOMINAL, WITH [id number] 17:57: 00Reason for exam:->TIPS eval, hx of acohol cirrhosis and variceal bleedFINAL REPORT HISTORY : Cirrhosis, variceal bleed, TIPS evaluation COMPARISON : None available. COMMENT : Complete ultrasound examination of the abdomen with color Doppler and spectral evaluation of the abdominal vasculature was performed. The visualized pancreas appears unremarkable. The liver is enlarged measuring 19.4 cm in length. The hepatic parenchyma is heterogeneous andthe liver demonstrates a nodular contour compatible with the patient's history of cirrhosis. No focal hepatic abnormality is identified. The gallbladder appears contracted. There is no evidence for cholelithiasis. Sonographic Chowdhury sign is negative. There is no intra or extra hepatic biliary ductal dilatation. The common bile duct measures 4 mm. Sonographic Chowdhury sign is negative. The spleen is enlarged measuring 13.5 cm in length but otherwise demonstrates an unremarkable sonographic appearance. The kidneys are normal in size measuring 10.4 cm in length on the right and 10.9 cm in length on the left. There is no evidence for solid renal mass, hydronephrosis, or shadowing calculi. There is no ascites visualized. Vascular:The main portal vein is patent with antegrade flow and a diameter of 1.4 cm. Peak systolic velocity is 8.0 cm/s. The central right and left portal veins at the confluence appear patent. However, the intrahepatic portal veins are not well visualized and likely diminutive in caliber. The proper hepatic artery is patent with resistive index 0.6. The right and left hepatic arteries are patent with resistive indices of 0.7 bilaterally. The IVC is patent and unremarkable. The middle, right, left hepatic veins are patent with antegrade flow. The splenic artery and vein are patent. The proximal aorta is normal in caliber. The mid and distal aorta are not well visualized secondaryto overlying bowel gas. IMPRESSION : 1. Sonographic findings suggestive of cirrhosis and sequela of portal hypertension including splenomegaly. No focal hepatic abnormality identified.2. Patent central portal venous system. The intrahepatic portal venous branches are not well visualized likely diminutive in caliber. Further evaluation could be performed with contrast-enhanced CT if clinically indicated. Signed: Singh Humphreys MDReport Verified Date/Time: 01/24/2018 17:57: 10 Reading Location: [address] Ultrasound Reading Room POCT-GLUCOSE [id number] 17:43:00 Test Item Value Reference Range Comments POC-GLUCOSE METER (Amuso) 83 mg/dL 70-110 TESTED AT [address] (test hstn=4559) [facility] [address] [id number] 17:36:00 Test Item Value Reference Range Comments PROCALCITONIN (BEAKER) (test pkxv=7354) 0.63 ng/mL <0.05 SEPSIS RISK (ng/mL)Low: 0.05-0.50Intermediate: 0.51-2.00High: & gt;=2.01EEG AWAKE AND [id number] 17:10:00Reason for exam:->r/o siezuresShould this be performed at the bedside?->YesDate of EE2017DATE OF REPORT: 01/24/2018ACC: [id number] Number: [id number] Location: Inpatient EEGStart time: 15:50Stop time: 16:12ICD-10: R56.9CPT Code: 68434 HISTORY: 52 y old male with h/o alcoholic cirrhosis, presents with hypotension and hematemesis.Patient had some myoclonus after endoscopy. MEDICATIONS THAT COULD AFFECT EEG: Ativan drip TECHNICAL SUMMARY: This is a digital video-EEG recorded with 32 input channels reviewed with bipolar and referential montages using the modified combinatorial system nomenclature. DESCRIPTION OF RECORD: During the maximally alert state, there is no anterior-posterior gradient and no posterior dominant rhythm. The background consists of generalized 5-7 Hz theta activity and admixed 1-3 Hz delta activity. There is superimposed 40 microvolt, 18-20 Hzbeta activity throughout the recording. Stage II sleep architecture was not recorded. SIGNIFICANT ELECTROCARDIOGRAM EVENTS: None HV: Hyperventilation was not performed. PHOTIC STIMULATION: Photic stimulation was not performed. IMPRESSION: Abnormal EEG in coma due to: 1. Presence of moderate generalized slowing 2. Superimposed excessive beta activity 3. Absent posterior dominant rhythm CLINICAL CORRELATION: The Presence of moderate generalized slowing is consistent with moderate degree of encephalopathy. The presence of beta activity is secondary to medication effect, likely from lorazepam. An EEG without epileptiform discharges does not exclude the possibility of epilepsy. If the clinical suspicion of epilepsy remains, consider additional EEG recordings. Josef Casillas MDNeurophysiology FellowReggie Gerard M.D., STACEY, TATUM, BRANDO Professor of Neurology, [facility] [employer] Director, [facility], [facility] Neuro[facility]iology [facility] Electronically signed by: REGGIE GERARD on 01/24 05:10 PMCALCIUM, [id number] 16:35:00 Test Item Value Reference Range Comments CALCIUM IONIZED (BEAKER) (test ddde=213) 1.09 mmol/L 1.12-1.27 PH, BLOOD (BEAKER) (test mout=5951) 7.40 CBC (HEMOGRAM ONLY)2018-01-24 15:58:00 Test Item Value Reference Range Comments WHITE BLOOD CELL COUNT (BEAKER) (test jfdr=892) 13.1 K/ L 3.5-10.5 RED BLOOD CELL COUNT (BEAKER) (test sxyn=651) 2.67 M/ L 4.63-6.08 HEMOGLOBIN (BEAKER) (test nybq=329) 8.6 GM/DL 13.7-17.5 HEMATOCRIT (BEAKER) (test fnyr=846) 25.5 % 40.1-51.0 MEAN CORPUSCULAR VOLUME (BEAKER) (test cjip=474) 95.5 fL 79.0-92.2 MEAN CORPUSCULAR HEMOGLOBIN (BEAKER) (test 32.2 pg 25.7-32.2 cazb=174) MEAN CORPUSCULAR HEMOGLOBIN CONC (BEAKER) (test 33.7 GM/DL 32.3-36.5 ohts=364) RED CELL DISTRIBUTION WIDTH (BEAKER) (test 17.4 % 11.6-14.4 mtnu=077) PLATELET COUNT (BEAKER) (test imwf=994) 71 K/CU MM 150-450 MEAN PLATELET VOLUME (BEAKER) (test zqcg=207) 10.3 fL 9.4-12.4 NUCLEATED RED BLOOD CELLS (BEAKER) (test 0 /100 WBC 0-0 suro=338) URINALYSIS W/ REFLEX URINE [id number] 15:02:00 Test Item Value Reference Range Comments COLOR (BEAKER) (test tuqo=655) Dark Yellow CLARITY (BEAKER) (test pkhe=204) Cloudy SPECIFIC GRAVITY UA (BEAKER) (test vawt=927) 1.017 1.001-1.035 PH UA (BEAKER) (test hvpc=009) 5.0 5.0-8.0 PROTEIN UA (BEAKER) (test bpft=866) 30 mg/dL Negative GLUCOSE UA (BEAKER) (test qtrm=256) 30 mg/dL Negative KETONES UA (BEAKER) (test husu=507) Negative Negative BILIRUBIN UA (BEAKER) (test nbrq=490) Positive Negative BLOOD UA (BEAKER) (test vnwr=308) Large Negative NITRITE UA (BEAKER) (test sasj=862) Negative Negative LEUKOCYTE ESTERASE UA (BEAKER) (test cthg=730) Negative Negative UROBILINOGEN UA (BEAKER) (test vtdk=620) 0.2 mg/dL 0.2-1.0 RBC UA (BEAKER) (test xywx=804) 27 /HPF WBC UA (BEAKER) (test iugd=375) 13 /HPF BACTERIA (BEAKER) (test dlac=855) Few MUCUS (BEAKER) (test ixbn=1506) Occasional HYALINE CASTS (BEAKER) (test vzdm=423) 10 /LPF SOURCE(BEAKER) (test dxuj=6778) POTASSIUM-STAT [id number] 14:43:00 Test Item Value Reference Range Comments POTASSIUM (BEAKER) (test lvcj=721) 5.0 meq/L 3.6-5.5 SODIUM NA-STAT [id number] 14:43:00 Test Item Value Reference Range Comments SODIUM (BEAKER) (test fqec=434) 144 meq/L 135-148 BLOOD GAS, [id number] 14:43:00 Test Item Value Reference Range Comments PH ARTERIAL (BEAKER) (test nxrb=149) 7.32 7.35-7.45 PCO2 ARTERIAL (BEAKER) (test abqb=922) 38 mmHg 35-45 PO2 ARTERIAL (BEAKER) (test kghe=348) 265 mmHg 80-90 O2 SATURATION ARTERIAL (BEAKER) (test klud=752) 99.6 % 96.0-97.0 HCO3 ARTERIAL (BEAKER) (test jyth=182) 19 mmol/L 21-29 BASE EXCESS ARTERIAL (BEAKER) (test psgo=178) -6.2 mmol/L -2.0-3.0 PATIENT TEMPERATURE (BEAKER) (test bmns=4511) 38.5 C FIO2 (BEAKER) (test jduw=4858) 60.0 % POCT-GLUCOSE [id number] 14:12:00 Test Item Value Reference Range Comments POC-GLUCOSE METER (BEAKER) 196 mg/dL 70-110 TESTED AT [facility] [address] [facility] (test umsi=8191) [facility] [address] LACTIC ACID, ARTERIAL, WHOLE [id number] 13:49:00 Test Item Value Reference Range Comments LACTATE BLOOD ARTERIAL (2) (BEAKER) (test > mmol/L 0.5-2.2 klgq=8504) Effective 09/15/2015: Units/Reference Range ChangeNew: 0.5-2.2 mmol/L Previous: 5 -20 mg/dLSpecimen slightly ictericTHROMBOELASTOGRAPH (TEG)2018-01-24 13:18:00 Test Item Value Reference Range Comments TEG ACTIVATED CLOTTING TIME (BEAKER) (test 4.8 minutes 4.0-7.0 iyts=2291) TEG FIBRINOGEN ACTIVITY (BEAKER) (test 65.1 degrees 61.0-73.0 rhzz=4039) TEG PLT. AGGREGATION (BEAKER) (test yqsb=1581) 49.4 MM 55.0-65.0 TEG FIBRINOLYSIS (BEAKER) (test wkgb=2917) 0.0 % 0.0-5.0 TGH ACTIVATED CLOTTING TIME (BEAKER) (test 4.7 minutes 4.0-7.0 tplz=5849) TGH FIBRINOGEN ACTIVITY (BEAKER) (test 63.2 degrees 61.0-73.0 usop=3295) TGH PLT. AGGREGATION (BEAKER) (test eppg=9445) 45.9 MM 55.0-65.0 TGH FIBRINOLYSIS (BEAKER) (test rgpc=9138) 0.0 % 0.0-5.0 BASIC METABOLIC [id number] 13:02:00 Test Item Value Reference Range Comments SODIUM (BEAKER) (test 150 meq/L 136-145 xadn=995) POTASSIUM (BEAKER) (test 6.0 meq/L 3.5-5.1 kmpt=285) CHLORIDE (BEAKER) (test 112 meq/L 98-107 hfsh=145) CO2 (BEAKER) (test 16 meq/L 22-29 ibef=850) BLOOD UREA NITROGEN 12 mg/dL 7-21 (BEAKER) (test imky=908) CREATININE (BEAKER) (test 1.71 mg/dL 0.57-1.25 kiim=682) GLUCOSE RANDOM (BEAKER) 97 mg/dL 70-105 (test lxiy=794) CALCIUM (BEAKER) (test 8.0 mg/dL 8.4-10.2 isaq=297) EGFR (BEAKER) (test 42 mL/min/1.73 sq m ESTIMATED GFR IS NOT woff=5663) ACCURATE CREATININE CLEARANCE IN PREDICTING GLOMERULAR FILTRATION RATE. ESTIMATED GFR IS NOT APPLICABLE FOR DIALYSIS PATIENTS. Specimen slightly ictericTROPONIN [id number] 12:59:00 Test Item Value Reference Range Comments TROPONIN I (BEAKER) (test wngk=691) 0.17 ng/mL 0.00-0.03 Troponin I (TnI) levels must be interpreted in the context of the presenting symptoms and the clinical findings. Elevated TnI levels indicate myocardial damage, but are not specific for ischemic heart disease. Elevated TnI levels are seen in patients with other cardiac conditions (including myocarditis and congestive heart failure), and slight TnI elevations occur in patients with other conditions, including sepsis, renal failure, acidosis, acute neurological disease, and persistent tachyarrhythmia.PT/[id number] 12:47:00 Test Item Value Reference Range Comments PROTIME (BEAKER) (test aodn=184) 20.5 seconds 11.7-14.7 INR (BEAKER) (test ocod=822) 1.8 <=5.9 PARTIAL THROMBOPLASTIN TIME (BEAKER) (test 55.4 seconds 22.5-36.0 ndpb=209) RECOMMENDED COUMADIN/WARFARIN INR THERAPY RANGESSTANDARD DOSE: 2.0 - 3.0 Includes: PROPHYLAXIS forvenous thrombosis, systemic embolization; TREATMENT for venous thrombosis and/or pulmonary embolus.HIGH RISK: Target INR is 2.5-3.5 for patients with mechanical heart valves.[id number] 12:46:00 Test Item Value Reference Range Comments FIBRINOGEN LEVEL (BEAKER) (test ornv=044) 159 mg/dl 225-434 CBC W/PLT COUNT & AUTO [id number] 12:21:00 Test Item Value Reference Range Comments WHITE BLOOD CELL COUNT (BEAKER) (test ayyc=914) 14.3 K/ L 3.5-10.5 RED BLOOD CELL COUNT (BEAKER) (test qoij=109) 2.80 M/ L 4.63-6.08 HEMOGLOBIN (BEAKER) (test zzhc=406) 9.1 GM/DL 13.7-17.5 HEMATOCRIT (BEAKER) (test weoc=768) 27.5 % 40.1-51.0 MEAN CORPUSCULAR VOLUME (BEAKER) (test lkzx=286) 98.2 fL 79.0-92.2 MEAN CORPUSCULAR HEMOGLOBIN (BEAKER) (test 32.5 pg 25.7-32.2 bhhx=498) MEAN CORPUSCULAR HEMOGLOBIN CONC (BEAKER) (test 33.1 GM/DL 32.3-36.5 sbgi=056) RED CELL DISTRIBUTION WIDTH (BEAKER) (test 16.5 % 11.6-14.4 wkyb=551) PLATELET COUNT (BEAKER) (test zvad=302) 97 K/CU MM 150-450 MEAN PLATELET VOLUME (BEAKER) (test xlxr=762) 10.6 fL 9.4-12.4 NUCLEATED RED BLOOD CELLS (BEAKER) (test 0 /100 WBC 0-0 achp=989) NEUTROPHILS RELATIVE PERCENT (BEAKER) (test 89 % oyap=571) LYMPHOCYTES RELATIVE PERCENT (BEAKER) (test 5 % ehkk=785) MONOCYTES RELATIVE PERCENT (BEAKER) (test 5 % vurm=254) EOSINOPHILS RELATIVE PERCENT (BEAKER) (test 0 % vofr=267) BASOPHILS RELATIVE PERCENT (BEAKER) (test 0 % wasp=679) NEUTROPHILS ABSOLUTE COUNT (BEAKER) (test 12.75 K/ L 1.78-5.38 pzhe=436) LYMPHOCYTES ABSOLUTE COUNT (BEAKER) (test 0.69 K/ L 1.32-3.57 oqup=105) MONOCYTES ABSOLUTE COUNT (BEAKER) (test apvg=529) 0.69 K/ L 0.30-0.82 EOSINOPHILS ABSOLUTE COUNT (BEAKER) (test 0.00 K/ L 0.04-0.54 zlbj=379) BASOPHILS ABSOLUTE COUNT (BEAKER) (test jysu=536) 0.01 K/ L 0.01-0.08 IMMATURE GRANULOCYTES-RELATIVE PERCENT (BEAKER) 1 % 0-1 (test susm=8007) RAD, CHEST, 1 VIEW, NON [id number] 12:18:00Reason for exam:->post intubationShould this be performed at the bedside?->YesFINAL REPORT Chest one view INDICATION: Post intubation COMPARISON: None available IMPRESSION: ET tube terminates 6.1 cm above the mack[place]. There are low lung volumes with centralpulmonary vascular congestion and bibasilar opacities suggestive of atelectasis. No pneumothorax or significant pleural effusion is evident. Heart size is within normal limits. The bones appear intact.Extrinsic support hardware overlies the chest. Signed: Siri [facility] Verified Date/Time: 01/24/2018 12:18:39 Reading Location: [facility] Radiology Reading Room BLOOD GAS, [id number] 12:08:00 Test Item Value Reference Range Comments PH ARTERIAL (BEAKER) (test xxny=637) 7.16 7.35-7.45 PCO2 ARTERIAL (BEAKER) (test iavx=584) 55 mmHg 35-45 PO2 ARTERIAL (BEAKER) (test nvtb=656) 248 mmHg 80-90 O2 SATURATION ARTERIAL (BEAKER) (test gmpa=575) 99.3 % 96.0-97.0 HCO3 ARTERIAL (BEAKER) (test tcby=091) 20 mmol/L 21-29 BASE EXCESS ARTERIAL (BEAKER) (test tmzd=410) -9.1 mmol/L -2.0-3.0 PATIENT TEMPERATURE (BEAKER) (test kxjl=3313) 36.0 C FIO2 (BEAKER) (test qxbb=6517) 60.0 % [id number] 11:23:00 Test Item Value Reference Range Comments POTASSIUM (BEAKER) (test fbmy=672) 5.6 meq/L 3.5-5.1 HEMOGLOBIN AND [id number] 10:52:00 Test Item Value Reference Range Comments HEMOGLOBIN (BEAKER) (test pmse=688) 9.7 GM/DL 13.7-17.5 HEMATOCRIT (BEAKER) (test hvlu=556) 30.2 % 40.1-51.0 BLOOD GAS, [id number] 10:35:00 Test Item Value Reference Range Comments PH ARTERIAL (BEAKER) (test njma=832) 7.13 7.35-7.45 PCO2 ARTERIAL (BEAKER) (test sqir=928) 47 mmHg 35-45 PO2 ARTERIAL (BEAKER) (test cvij=398) 284 mmHg 80-90 O2 SATURATION ARTERIAL (BEAKER) (test bhee=827) 99.5 % 96.0-97.0 HCO3 ARTERIAL (BEAKER) (test nmmj=602) 16 mmol/L 21-29 BASE EXCESS ARTERIAL (BEAKER) (test dmwg=151) -13.1 mmol/L -2.0-3.0 PATIENT TEMPERATURE (BEAKER) (test qiof=8081) 36.5 C FIO2 (BEAKER) (test lpfu=8902) 60.0 % CALCIUM, [id number] 10:34:00 Test Item Value Reference Range Comments CALCIUM IONIZED (BEAKER) (test iafz=764) 0.90 mmol/L 1.12-1.27 PH, BLOOD (BEAKER) (test vrom=3493) 7.13 POCT-BLOOD GASES, [id number] 09:54:00 Test Item Value Reference Range Comments TEMP, CELSIUS-POC (BEAKER) 37.0 (test ermi=8104) FIO2-POC (BEAKER) (test TESTED AT [address] clxl=0536) [place] [address] PH, ARTERIAL-POC (BEAKER) 7.044 7.350-7.450 (test eipc=5217) PCO2, ARTERIAL-POC (BEAKER) 48.3 mm Hg 35.0-45.0 (test tjcw=7635) PO2, ARTERIAL-POC (BEAKER) 251.0 mm Hg 80.0-90.0 (test uiss=0479) SO2, ARTERIAL-POC (BEAKER) 100.0 % 96.0-97.0 (test ybhm=0609) HCO3, ARTERIAL-POC (BEAKER) 13.2 meq/L 21.0-29.0 (test rzsx=5369) BASE EXCESS, ARTERIAL-POC -17.0 meq/L -2.0-3.0 (BEAKER) (test gcdu=2446) [id number] 09:54:00 Test Item Value Reference Range Comments POC-SODIUM (BEAKER) (test 143 meq/L 135-148 TESTED AT [address] vhll=2474) [place] [address] [id number] 09:54:00 Test Item Value Reference Range Comments POC-POTASSIUM (BEAKER) (test 5.5 meq/L 3.6-5.5 [address] kn[address] [place] [address] [id number] 09:54:00 Test Item Value Reference Range Comments POC-GLUCOSE (BEAKER) (test 121 mg/dL 70-110 TESTED AT [address] fjax=1012) [place] [address] POCT-CALCIUM [id number] 09:54:00 Test Item Value Reference Range Comments POC-CALCIUM IONIZED (BEAKER) 0.95 mmol/L 1.12-1.27 TESTED AT [address] (test niyz=2250) [place] [address] [id number] 09:54:00 Test Item Value Reference Range Comments POC-HEMATOCRIT (BEAKER) (test 28 % 40-50 TESTED AT [address] oqtr=2502) [place] [address] [id number] 09:54:00 Test Item Value Reference Range Comments POC-HEMOGLOBIN (BEAKER) 9.5 g/dL 13.0-16.8 TESTED AT [facility] [address] [facility] (test vpma=6208) [facility] [address] AT [facility] [address] [facility] [address] [id number] 09:34:00 Test Item Value Reference Range Comments D-DIMER QUANTITATIVE (BEAKER) (test jnbl=594) 1.49 MG/L FEU <0.50 Intended Use: The D-Dimer Assay can be used to aid in the diagnosis of Deep Vein Thrombosis (DVT) and Pulmonary Embolism Disease (PED).In patients with low pre-test probability, various studies concerning STA Liatest D-dimer test have reported that with a cutoff value of 0.50 MG/L FEU, the Negative Predictive Value (NPV) regarding the exclusion of thrombosis is within 95-100% range.COMPREHENSIVE METABOLIC [id number] 09:32:00 Test Item Value Reference Range Comments TOTAL PROTEIN (BEAKER) 4.8 gm/dL 6.0-8.3 (test hwkq=749) ALBUMIN (BEAKER) (test 1.9 g/dL 3.5-5.0 kufz=3247) ALKALINE PHOSPHATASE 153 U/L 40-150 (BEAKER) (test xqcx=315) BILIRUBIN TOTAL (BEAKER) 2.8 mg/dL 0.2-1.2 (test ivom=235) SODIUM (BEAKER) (test 143 meq/L 136-145 zxbn=381) POTASSIUM (BEAKER) (test 5.1 meq/L 3.5-5.1 bcit=908) CHLORIDE (BEAKER) (test 113 meq/L 98-107 ubch=561) CO2 (BEAKER) (test 12 meq/L 22-29 zzin=066) BLOOD UREA NITROGEN 12 mg/dL 7-21 (BEAKER) (test jrtm=997) CREATININE (BEAKER) (test 1.83 mg/dL 0.57-1.25 xqhi=524) GLUCOSE RANDOM (BEAKER) 138 mg/dL 70-105 (test ygyx=238) CALCIUM (BEAKER) (test 7.4 mg/dL 8.4-10.2 fvmz=889) AST (SGOT) (BEAKER) (test 283 U/L 5-34 apha=696) ALT (SGPT) (BEAKER) (test 78 U/L 6-55 pypt=033) EGFR (BEAKER) (test 39 mL/min/1.73 sq m ESTIMATED GFR IS NOT xiap=8978) ACCURATE CREATININE CLEARANCE IN PREDICTING GLOMERULAR FILTRATION RATE. ESTIMATED GFR IS NOT APPLICABLE FOR DIALYSIS PATIENTS. Specimen slightly [id number] 09:29:00 Test Item Value Reference Range Comments POTASSIUM (BEAKER) (test fblf=109) 5.1 meq/L 3.5-5.1 [id number] 09:29:00 Test Item Value Reference Range Comments SODIUM (BEAKER) (test qoxx=520) 143 meq/L 136-145 [id number] 09:29:00 Test Item Value Reference Range Comments GLUCOSE RANDOM (BEAKER) (test wfju=846) 138 mg/dL 70-105 LACTIC ACID, VENOUS, WHOLE [id number] 09:23:00 Test Item Value Reference Range Comments LACTATE BLOOD VENOUS (2) (BEAKER) (test 13.2 mmol/L 0.5-2.2 ruux=4274) Effective 09/15/2015: Units/Reference Range ChangeNew: 0.5-2.2 mmol/L Previous: 5 -20 mg/[id number] 09:22:00 Test Item Value Reference Range Comments FIBRINOGEN LEVEL (BEAKER) (test fqru=528) < mg/dl 225-434 [id number] 09:15:00 Test Item Value Reference Range Comments PROTIME (BEAKER) (test pmwz=154) 24.3 seconds 11.7-14.7 INR (BEAKER) (test icxh=618) 2.2 <=5.9 PARTIAL THROMBOPLASTIN TIME (BEAKER) (test 47.1 seconds 22.5-36.0 aeji=958) RECOMMENDED COUMADIN/WARFARIN INR THERAPY RANGESSTANDARD DOSE: 2.0 - 3.0 Includes: PROPHYLAXIS forvenous thrombosis, systemic embolization; TREATMENT for venous thrombosis and/or pulmonary embolus.HIGH RISK: Target INR is 2.5-3.5 for patients with mechanical heart valves.POCT-LACTIC ACID, [id number] 09: 04:00 Test Item Value Reference Range Comments POC-LACTIC ACID, VENOUS 10.1 mmol/L 0.9-1.7 [address] (BEAKER) (test bjfv=6793) [place] [address] PLATELET [id number] 09:03:00 Test Item Value Reference Range Comments PLATELET COUNT (BEAKER) (test ykhn=830) 70 K/CU MM 150-450 HEMOGLOBIN AND [id number] 09:03:00 Test Item Value Reference Range Comments HEMOGLOBIN (BEAKER) (test hidz=029) 7.3 GM/DL 13.7-17.5 HEMATOCRIT (BEAKER) (test urkb=559) 22.2 % 40.1-51.0 [id number] 08:52:00 Test Item Value Reference Range Comments POC-GLUCOSE (BEAKER) (test 132 mg/dL 70-110 TESTED AT [address] aybv=9228) [place] [address] POCT-CALCIUM [id number] 08:52:00 Test Item Value Reference Range Comments POC-CALCIUM IONIZED (BEAKER) 1.00 mmol/L 1.12-1.27 TESTED AT [address] (test usha=7542) [place] [address] [id number] 08:52:00 Test Item Value Reference Range Comments POC-HEMATOCRIT (BEAKER) (test 19 % 40-50 TESTED AT [address] wyps=9697) [place] [address] [id number] 08:52:00 Test Item Value Reference Range Comments POC-HEMOGLOBIN (BEAKER) 6.5 g/dL 13.0-16.8 TESTED AT [address] (test flmr=0948) [place] [address]TESTED AT [place] [address] POCT-BLOOD GASES, [id number] 08:51:00 Test Item Value Reference Range Comments TEMP, CELSIUS-POC (BEAKER) 37.0 (test rjoj=6449) FIO2-POC (BEAKER) (test TESTED AT [address] rwgg=8516) [place] [address] PH, VENOUS-POC (BEAKER) 7.213 7.320-7.420 (test vgny=8680) PCO2, VENOUS-POC (BEAKER) 32.2 mm Hg 41.0-51.0 (test mxel=9945) PO2, VENOUS-POC (BEAKER) 15.0 mm Hg 25.0-40.0 (test pqkw=2198) SO2, VENOUS-POC (BEAKER) 14.0 % 40.0-70.0 (test vswm=4812) HCO3, VENOUS-POC (BEAKER) 13.0 meq/L 21.0-29.0 (test fiyd=0987) BASE EXCESS, VENOUS-POC -15.0 meq/L -2.0-3.0 (BEAKER) (test qefp=1398) [id number] 08:51:00 Test Item Value Reference Range Comments POC-SODIUM (BEAKER) (test 143 meq/L 135-148 TESTED AT [facility] [address] kebe=1051) [facility] [address] [id number] 08:51:00 Test Item Value Reference Range Comments POC-POTASSIUM (BEAKER) (test 4.8 meq/L 3.6-5.5 TESTED AT [facility] [address] lfav=9257) [facility] [address]
--- OUTSIDE RECORDS SUMMARY | 2018-12-31 11:48 | XMS REPORT ---
:1965 Author Organization e[employer] Care Team Providers Name Role Phone Kentrell Flores Provider Role Unavailable Allergies, Adverse Reactions, Alerts Substance Reaction Event Type N.K.D.A. 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, without psychotic features Problem Alcoholism F10.20 Active Problem Elevated blood pressure reading R03.0 Active Problem Hyperglycemia R73.9 Active Problem Tobacco abuse Z72.0 Active Medications Medication Code Code Instructions Start End Status Dosage System Date Date Folic Acid [facility] 51553095842 1 MG Oral Active TAKE 1 TABLET BY MOUTH EVERY DAY Furosemide ND 77923946206 40 MG Orally Jun 20, Active 2 tablets Once a day 2018 Spironolactone ND 69316445997 25 MG Oral Active TAKE 1 TABLET BY MOUTH EVERY DAY Hydrocortisone ND 03046818769 10 MG Orally Active 1 tablet every 12 hrs with food or milk Results No Known Results Summary Purpose [employer]ClinicalWorks Submission
[2018-12-31] MEDS ORDERED: NA CHLORIDE 0.9% 1,000 ML ONE (11:50)
[2018-12-31 11:54] LABS: Absolute Lymphocytes (CBC) 0.4 K/uL (0.7-4.9); Basophils % 0.3 % (0-1.3); Hematocrit 32.5 % (39.6-49.0); Lymphocytes % 5.7 % (15.3-44.8); MPV 9.1 fL (7.6-11.3); RBC Red Blood Cell Count 3.07 M/uL (4.33-5.43)
[2018-12-31 11:59] LABS: Protime INR 3.7
--- NOTE | 2018-12-31 12:05 | RAD REPORT ---
EXAM DESCRIPTION: CT - Head Brain Wo Cont - 12/31/2018 11:56 am CLINICAL HISTORY: CONFUSED, found unresponsive by a neighbor COMPARISON: HEAD BRAIN W O CONTRAST dated 07/30/2015 TECHNIQUE: Axial 5 mm thick images of the head were obtained without IV contrast. All CT scans are performed using dose optimization technique as appropriate and may include automated exposure control or mA/KV adjustment according to patient size. FINDINGS: No intracranial hemorrhage, mass, edema or shift of mid-line structures. No acute cortical based infarction. No significant atrophy changes are present. No significant chronic ischemic change . No abnormal extra-axial fluid collections. Ventricles are normal. Intracranial findings are similar to the comparison. Mastoid air cells and visualized portions of the paranasal sinuses are clear. No acute bony findings. IMPRESSION: Negative non-contrast CT head examination for acute finding. No significant change from comparison.
[2018-12-31 12:11] LABS: Anisocytosis 1+; Blood Morphology Comment NOTED (NOT SEEN); Macrocytosis 1+; Platelet Estimate DECR; Urine White Blood Cell Casts OK
--- NOTE | 2018-12-31 12:20 | EKG ---
Test Date: 2018-12-31 Test Time: 11:48:48 Circulation Tender: VALDEMAR MEASUREMENT RESULTS: Intervals: Rate: 87 OR: 154 QRSD: 114 QT: 490 QTc: 589 [place]: P: 81 OR: 154 QRS: 82 T: 63 INTERPRETIVE STATEMENTS: Normal sinus rhythm Left ventricular hypertrophy with repolarization abnormality Prolonged QT Abnormal ECG Compared to ECG 01/24/2018 05:35:24 Left ventricular hypertrophy now present Early repolarization now present Prolonged QT interval now present Sinus tachycardia no longer present Electronically Signed On 12-31-18 12:19:13 CDT by Wally Mccloud
[2018-12-31 12:23] LABS: Albumin 1.5 g/dL (3.4-5.0); Bilirubin Direct 18.2 mg/dL (0-0.2); Bilirubin Total 23.9 mg/dL (0.2-1.0); Protein, Total 7.1 g/dL (6.4-8.2); Troponin (Emerg Dept Use Only) 0.18 ng/mL (0.0-0.045)
--- NOTE | 2018-12-31 12:27 | RAD REPORT ---
EXAM DESCRIPTION: RAD - Chest Single View - 12/31/2018 12:19 pm CLINICAL HISTORY: MALAISE Chest pain. COMPARISON: Chest Single View dated 01/24/2018; Chest Single View dated 02/15/2017; CHEST SINGLE VIEW dated 08/04/2015; CHEST SINGLE VIEW dated 07/31/2015 FINDINGS: Portable technique limits examination quality. The lungs are grossly clear. The heart is normal in size. No displaced fractures. IMPRESSION: No acute intrathoracic process suspected.
[2018-12-31 12:29] LABS: Potassium 2.8 mmol/L (3.5-5.1)
[2018-12-31 12:39] LABS: Urine Appearance TURBID; Urine Blood NEGATIVE (NEG); Urine Color ORANGE; Urine Glucose NEGATIVE (NEG); Urine Protein NEGATIVE (NEG); Urine Specific Gravity 1.015 (1.005-1.030)
[2018-12-31] MEDS ORDERED: KCL 20 MEQ/100 mL IVPB 20 MEQ/100 ML BAG IV ONE (12:52)
[2018-12-31] MEDS ORDERED: VITAMIN K (ADULT) 10 MG/ML ONE (12:52)
[2018-12-31] MEDS ORDERED: CEFEPIME/SWI 1gm 10 ML IV ONE (13:00)
--- NOTE | 2018-12-31 13:27 | ER ---
Nurse's Notes [facility] Name: Wesley Taylor Age: 53 yrs Sex: Male : 1965 Arrival Date: 12/31/2018 Time: 11:38 Bed 2 Private MD: Diagnosis: Acute and subacute hepatic failure without coma Presentation: 12/31 11:38 Presenting complaint: EMS states: found unresponsive by neighbor who called 911. Pt was aa5 found unresponsive by EMS and became A\\T\\O x person en route to the hospital. Pt now with eyes open, alert x person and place, pt not following commands. Transition of care: patient was not received from another setting of care. Onset of symptoms was December 31, 2018. Risk Assessment: Do you want to hurt yourself or someone else? Unable to obtain. Initial Sepsis Screen: Does the patient meet any 2 criteria? HR > 90 bpm. Does the patient have a suspected source of infection? No. Patient's initial sepsis screen is negative. Care prior to arrival: IV initiated. 18 GA, in the left antecubital area, Glucose check: 110. 11:38 Acuity: MERNA 2 aa5 11:38 Method Of Arrival: EMS: [facility] aa5 Historical: - Allergies: 11:38 No Known Allergies; aa5 - PMHx: 11:41 Alcoholism; Cirrhosis; esophageal varices; GI Bleed; aa5 - PSHx: 11:38 Unable to obtain; aa5 - Immunization history:: Adult Immunizations unknown. - Social history:: Smoking status: unknown. - Ebola Screening: : Unable to complete screening because. Screenin:40 Abuse screen: Unable to assess. Nutritional screening: unable to assess . Tuberculosis aa5 screening: unable to assess . Fall Risk IV access (20 points). Mental Status- Overestimates/Forgets Limitations (15 pts.). Total [place] Fall Scale indicates Low Risk Score (25-44 pts). Fall prevention measures have been instituted. Side Rails Up X 2 Placed close to Nursing Station. Assessment: 11:40 General: Behavior is drowsy. Pain: Unable to use pain scale. Patient is disoriented. aa5 Does not appear to understand pain scale. Neuro: Level of Consciousness is awake, confused, Oriented to person, place, Pt not following all commands, unable to assess strength . Pupils are dilated. Cardiovascular: Heart tones S1 S2 present Edema is absent. Rhythm is sinus rhythm. Respiratory: Airway is patent Respiratory effort is even, unlabored, Respiratory pattern is regular, symmetrical, Breath sounds are clear bilaterally. GI: Abdomen is round Bowel sounds present X 4 quads. Abd is soft and non tender X 4 quads. : No signs and/or symptoms were reported regarding the genitourinary system. EENT: No signs and/or symptoms were reported regarding the EENT system. Derm: Skin is dry, Skin is jaundiced, Skin temperature is warm Diffuse bruising noted to whole body that it's dark purple in color. Musculoskeletal: Range of motion: intact in all extremities. 12:15 Reassessment: Pt back from CT scan via stretcher . aa5 12:15 Reassessment: Pt resting in bed with eyes closed, pt awakens to verbal stimuli, pt aa5 alert and oriented x person and place. Equal unlabored, respirations. . 12:15 Reassessment: Pt's sister at bedside. Pt's sister states "he is an alcoholic and the aa5 last time he was in the hospital was back in July and he even went to Rehab for about a month then but then goes back to drinking again" . 12:25 Reassessment: Lab contacted to collect blood cultures. . aa5 12:36 Reassessment: In bed with eyes closed, awakens to verbal stimuli. . aa5 12:55 Reassessment: In bed with eyes closed, respirations even and unlabored, NSR on monitor. aa5 . 13:45 Reassessment: In bed with eyes closed, no change from previous assessment, pt remains aa5 A\\T\\O x person and place, equal unlabored respirations, does not follow commands, pt drowsy. . 14:45 Reassessment: In bed with eyes closed, respirations even and unlabored. NSR on monitor. aa5 Pt is A\\T\\O x person and place and remains drowsy. Pt's sister at bedside. Awaiting EMS for transfer. . Vital Signs: 11:39 BP 159 / 71; Pulse 92; Resp 18 S; Temp 98.4(O); Pulse Ox 100% on R/A; aa5 11:45 BP 150 / 78; Pulse 89; Resp 16 S; Pulse Ox 100% on R/A; aa5 12:05 BP 158 / 75; Pulse 95; Resp 16 S; Pulse Ox 100% on R/A; aa5 12:30 BP 156 / 67; Pulse 91; Resp 18 S; Pulse Ox 100% on R/A; aa5 13:30 BP 163 / 81; Pulse 95; Resp 16 S; Pulse Ox 100% on R/A; aa5 14:30 BP 162 / 77; Pulse 98; Resp 18 S; Temp 98.8(TE); Pulse Ox 100% on R/A; aa5 15:15 BP 168 / 74; Pulse 102; Resp 16 S; Pulse Ox 99% on R/A; aa5 ED Course: 11:38 Patient arrived in ED. aa5 11:38 Toby Sexton MD is Attending Physician. gs 11:38 Arm band placed on. aa5 11:38 Patient has correct armband on for positive identification. Placed in gown. Bed in low aa5 position. Side rails up X2. monitoring analyst on. Pulse ox on. NIBP on. 11:41 Triage completed. aa5 11:42 Brianne Augustine, RN is Primary Nurse. aa5 11:58 EKG done, by instrumentation technologist. reviewed by Toby Sexton MD. sm3 12:01 CT Head Brain wo Cont In Process Unspecified. EDMS 12:21 Chest Single View XRAY In Process Unspecified. EDMS 12:26 Straight cath inserted, using sterile technique, 16 Fr. Specimen obtained. Returned aa5 100mls. Patient tolerated well. 15:18 Patient transferred, IV remains in place. aa5 15:18 No provider procedures requiring assistance completed. aa5 Administered Medications: 12:15 Drug: NS 0.9% 1000 ml Route: IV; Rate: 75 ml/hr; Site: left antecubital; aa5 15:16 Follow up: IV Status: Infusion continued upon transfer aa5 12:28 CANCELLED (Duplicate Order): NS 0.9% (30 ml/kg) 30 ml/kg IV at bolus once; Sepsis gs Protocol 12:36 Drug: NS 0.9% 1000 ml Route: IV; Rate: 1 bolus; Site: left antecubital; aa5 13:30 Follow up: IV Status: Completed infusion; IV Intake: 1000ml aa5 12:55 Drug: Vitamin K1 10 mg Route: IM; Site: right deltoid; aa5 13:30 Follow up: Response: No adverse reaction aa5 12:55 Drug: Potassium Chloride 20 mEq Route: IV; Rate: calculated rate; Site: left aa5 antecubital; 15:00 Follow up: Response: No adverse reaction; IV Status: Completed infusion aa5 13:42 Drug: Pepcid 20 mg Route: IVP; Site: left antecubital; aa5 13:50 Follow up: Response: No adverse reaction aa5 13:45 Drug: Cefepime 1 grams {Note: given slow IVP per pharmacy at this time. .} Route: IVPB; aa5 Rate: 200 ml/hr; Infused Over: 30 mins; Site: left antecubital; 14:00 Follow up: Response: No adverse reaction aa5 15:16 Drug: NS 0.9% 1000 ml Route: IV; Rate: 1 bolus; Site: left antecubital; aa5 15:16 Follow up: IV Status: Infusion continued upon transfer aa5 Point of Care Testing: Blood Glucose: 12:15 Blood Glucose: 114 mg/dL; aa5 Ranges: Intake: 13:30 IV: 1000ml; Total: 1000ml. aa5 Outcome: 13:25 ER care complete, transfer ordered by . 15:18 Transferred by [facility] to [facility], Transfer form completed. aa5 X-rays sent w/ patient. Note: Report given to [facility] 15:18 Condition: stable 15:18 Discharge instructions given to Pt's sister Instructed on the need for transfer, Demonstrated understanding of instructions. 15:36 Patient left the ED. aa5 Signatures: Dispatcher [employer] EDBrianne Maria RN RN aa5 Toby Sexton MD MD gs Montes, Shakira 3 Corrections: (The following items were deleted from the chart) 17:28 13:45 Reassessment: In bed with eyes closed, no change from previous assessment, pt aa5 remains A\\T\\O x person and place, equal unlabored respirations. . aa5
--- NOTE | 2018-12-31 13:27 | EDPHYS ---
Physician Documentation [facility] Name: Wesley Taylor Age: 53 yrs Sex: Male : 1965 Arrival Date: 12/31/2018 Time: 11:38 Bed 2 Private MD: ED Physician Toby Sexton HPI: 12/31 13:20 This 53 yrs old Male presents to ER via EMS with complaints of Altered Mental gs Status. 13:20 The patient presents with confusion, decreased mental status. Onset: The gs symptoms/episode began/occurred today. Possible causes: alcohol, has a history of chronic alcohol abuse. Associated signs and symptoms: Pertinent negatives: fever. Current symptoms: In the emergency department the patient's symptoms are unchanged from the initial presentation. The patient has experienced similar episodes in the past, a few times. Historical: - Allergies: 11:38 No Known Allergies; aa5 - PMHx: 11:41 Alcoholism; Cirrhosis; esophageal varices; GI Bleed; aa5 - PSHx: 11:38 Unable to obtain; aa5 - Immunization history:: Adult Immunizations unknown. - Social history:: Smoking status: unknown. - Ebola Screening: : Unable to complete screening because. ROS: 13:20 Unable to obtain ROS due to patient distress. gs Exam: 13:20 Head/Face: Normocephalic, atraumatic. Eyes: Pupils equal round and reactive to light, gs extra-ocular motions intact. Lids and lashes normal. Conjunctiva and sclera are non-icteric and not injected. Cornea within normal limits. Periorbital areas with no swelling, redness, or edema. ENT: Nares patent. No nasal discharge, no septal abnormalities noted. Tympanic membranes are normal and external auditory canals are clear. Oropharynx with no redness, swelling, or masses, exudates, or evidence of obstruction, uvula midline. Mucous membranes moist. Neck: Trachea midline, no thyromegaly or masses palpated, and no cervical lymphadenopathy. Supple, full range of motion without nuchal rigidity, or vertebral point tenderness. No Meningismus. Chest/axilla: Normal chest wall appearance and motion. Nontender with no deformity. No lesions are appreciated. 13:20 Respiratory: Lungs have equal breath sounds bilaterally, clear to auscultation and percussion. No rales, rhonchi or wheezes noted. No increased work of breathing, no retractions or nasal flaring. Back: No spinal tenderness. No costovertebral tenderness. Full range of motion. MS/ Extremity: Pulses equal, no cyanosis. Neurovascular intact. Full, normal range of motion. 13:20 Constitutional: The patient appears awake, lethargic. 13:20 Eyes: Sclera: icterus, is present. 13:20 Cardiovascular: Rate: tachycardic, Rhythm: regular. 13:20 Abdomen/GI: Inspection: distension, that is mild, Palpation: abdomen is soft and non-tender, in all quadrants. 13:20 Skin: Appearance: Color: jaundiced. 13:20 Neuro: Orientation: to person, place, Motor: moves all fours, Sensation: no obvious gross deficits. Vital Signs: 11:39 BP 159 / 71; Pulse 92; Resp 18 S; Temp 98.4(O); Pulse Ox 100% on R/A; aa5 11:45 BP 150 / 78; Pulse 89; Resp 16 S; Pulse Ox 100% on R/A; aa5 12:05 BP 158 / 75; Pulse 95; Resp 16 S; Pulse Ox 100% on R/A; aa5 12:30 BP 156 / 67; Pulse 91; Resp 18 S; Pulse Ox 100% on R/A; aa5 13:30 BP 163 / 81; Pulse 95; Resp 16 S; Pulse Ox 100% on R/A; aa5 14:30 BP 162 / 77; Pulse 98; Resp 18 S; Temp 98.8(TE); Pulse Ox 100% on R/A; aa5 15:15 BP 168 / 74; Pulse 102; Resp 16 S; Pulse Ox 99% on R/A; aa5 MDM: 11:49 Patient medically screened. 13:20 Differential Diagnosis: electrolyte abnormality, alcohol intoxication, intracranial gs bleed, sepsis, hepatic failure. Data reviewed: vital signs, nurses notes, old medical records, lab test result(s), EKG, radiologic studies. Counseling: I had a detailed discussion with the patient and/or guardian regarding: the historical points, exam findings, and any diagnostic results supporting the discharge/admit diagnosis, the need to transfer to another facility. 12/31 11:40 Order name: Basic Metabolic Panel; Complete Time: 12:39 12/31 11:40 Order name: Blood Culture Adult (2) 12/31 11:40 Order name: CBC with Diff; Complete Time: 12:27 12/31 11:40 Order name: CPK; Complete Time: 12:39 12/31 11:40 Order name: Lactate; Complete Time: 12:39 12/31 11:40 Order name: LFT's; Complete Time: 12:39 12/31 11:40 Order name: Lipase; Complete Time: 12:39 12/31 11:40 Order name: Procalcitonin; Complete Time: 14:58 12/31 11:40 Order name: Protime (+inr); Complete Time: 12:27 12/31 11:40 Order name: Troponin (emerg Dept Use Only); Complete Time: 12:39 12/31 11:40 Order name: Urine Microscopic Only; Complete Time: 14:58 12/31 11:40 Order name: AMMONIA; Complete Time: 12:27 12/31 12:01 Order name: CBC Smear Scan; Complete Time: 12:27 [facility]CO 12/31 12:25 Order name: UA; Complete Time: 14:58 12/31 11:40 Order name: Chest Single View XRAY; Complete Time: 12:51 12/31 11:40 Order name: CT Head Brain wo Cont; Complete Time: 12:27 12/31 12:10 Order name: EKG Electrocardiogram; Complete Time: 12:10 [facility] 12/31 13:13 Order name: ETOH Level 12/31 13:14 Order name: Urine Drug Screen; Complete Time: 14:58 12/31 13:14 Order name: ABG 12/31 13:41 Order name: Lactate 12/31 14:15 Order name: Urine Culture [facility] 12/31 11:40 Order name: Accucheck; Complete Time: 12:26 12/31 11:40 Order name: Cardiac monitoring; Complete Time: 11:43 12/31 11:40 Order name: EKG - Nurse/Tech; Complete Time: 12:02 12/31 11:40 Order name: IV Saline Lock - Large Bore; Complete Time: 11:43 12/31 11:40 Order name: Labs collected and sent; Complete Time: 12:02 12/31 11:40 Order name: O2 Per Protocol; Complete Time: 11:43 12/31 11:40 Order name: O2 Sat Monitoring; Complete Time: 11:43 12/31 11:40 Order name: Urine Dipstick-Ancillary (obtain specimen); Complete Time: 12:26 12/31 12:26 Order name: Straight Cath; Complete Time: 12:26 aa5 Administered Medications: 12:15 Drug: NS 0.9% 1000 ml Route: IV; Rate: 75 ml/hr; Site: left antecubital; aa5 15:16 Follow up: IV Status: Infusion continued upon transfer aa5 12:28 CANCELLED (Duplicate Order): NS 0.9% (30 ml/kg) 30 ml/kg IV at bolus once; Sepsis Protocol 12:36 Drug: NS 0.9% 1000 ml Route: IV; Rate: 1 bolus; Site: left antecubital; aa5 13:30 Follow up: IV Status: Completed infusion; IV Intake: 1000ml aa5 12:55 Drug: Vitamin K1 10 mg Route: IM; Site: right deltoid; aa5 13:30 Follow up: Response: No adverse reaction aa5 12:55 Drug: Potassium Chloride 20 mEq Route: IV; Rate: calculated rate; Site: left aa5 antecubital; 15:00 Follow up: Response: No adverse reaction; IV Status: Completed infusion aa5 13:42 Drug: Pepcid 20 mg Route: IVP; Site: left antecubital; aa5 13:50 Follow up: Response: No adverse reaction aa5 13:45 Drug: Cefepime 1 grams {Note: given slow IVP per pharmacy at this time. .} Route: IVPB; aa5 Rate: 200 ml/hr; Infused Over: 30 mins; Site: left antecubital; 14:00 Follow up: Response: No adverse reaction aa5 15:16 Drug: NS 0.9% 1000 ml Route: IV; Rate: 1 bolus; Site: left antecubital; aa5 15:16 Follow up: IV Status: Infusion continued upon transfer aa5 Point of Care Testing: Blood Glucose: 12:15 Blood Glucose: 114 mg/dL; aa5 Ranges: Critical Glucose Levels:Adult <50 mg/dl or >400 mg/dl <40 mg/dl or >180 mg/dl Disposition: 13:20 Critical Care:. Disposition: 12/31/18 13:25 Transfer ordered to [facility]. Diagnosis is Acute and subacute hepatic failure without coma. - Reason for transfer: Higher level of care. - Accepting physician is hepatology. - Condition is Stable. - Problem is an acute exacerbation. - Symptoms are unchanged. Critical care time excluding procedures: 13:20 Critical care time: Bedside Care: 10 minutes, Consultation: 10 minutes, Family gs Intervention: 10 minutes. Total time: 30 minutes Signatures: Dispatcher [employer] Brianne Yo RN RN aa5 Toby Sexton MD MD Corrections: (The following items were deleted from the chart) 12:28 12:27 NS 0.9% (30 ml/kg) 30 ml/kg IV at bolus once; Sepsis Protocol ordered. [facility] 15:36 13:25 12/31/2018 13:25 Transfer ordered to [facility]. Diagnosis is aa5 Acute and subacute hepatic failure without coma. Reason for transfer: Higher level of care. Accepting physician is hepatology. Condition is Stable. Problem is an acute exacerbation. Symptoms are unchanged.
[2018-12-31] MEDS ORDERED: FAMOTIDINE 20 MG/2 ML VIAL IV ONE (13:44)
[2018-12-31 14:00] LABS: Urine Microscopic Reflex NO UMIC
[2018-12-31 14:03] LABS: Arterial Blood Carboxyhemoglob 1.9 % (0-1.5); Blood Gas Oxyhemoglobin 84.1 % (94-97)
[2018-12-31 14:11] LABS: Urine RBC <5 /HPF (NONE SEEN)
[2018-12-31 14:12] LABS: Urine Bacteria <20 /HPF (NONE SEEN)
[2018-12-31 14:14] LABS: Urine Culture Reflex Order REFLEXED
[2018-12-31 14:18] LABS: Urine Bilirubin POSITIVE (NEG)
[2018-12-31 14:22] LABS: Barbiturates NEGATIVE (NEGATIVE); Benzodiazepines NEGATIVE (NEGATIVE); Cocaine NEGATIVE (NEGATIVE); METHAMPHETAM NEGATIVE (NEGATIVE); Methadone NEGATIVE (NEGATIVE); Opiates NEGATIVE (NEGATIVE); Phencyclidine NEGATIVE (NEGATIVE); THC Cannibis NEGATIVE (NEGATIVE)
== END 2018-12-31 15:36 | disposition short-term general hospital (02) ==
LOC: ER 11:37
DX: K72.00 Acute and subacute hepatic failure without coma (principal); F10.20 Alcohol dependence, uncomplicated
CPT/HCPCS: 36415; 51702; 70450; 71045; 80048; 80076; 80307; 80320; 81003; 81015; 82140; 82550; 82805; 82962; 83605; 83690; 84145; 84484; 85025; 85610; 87040; 87086; 87088; 93005; 96361; 96365; 96366; 96372; 96375; 99285; J0692; J3430; J7030

== ENCOUNTER 2019-02-08 20:02 | Emergency (ER) | payer SELFPAY ==
[2019-02-08] MEDS ORDERED: NA CHLORIDE 0.9% 1,000 ML ONE (21:30)
[2019-02-08] MEDS ORDERED: FENTANYL CITR 100 MCG/2 ML ONE (21:30)
[2019-02-08] MEDS ORDERED: ONDANSETRON 4 MG/2 ML VIAL ONE (21:30)
[2019-02-08 22:59] LABS: Absolute Lymphocytes (CBC) 0.7 K/uL (0.7-4.9); Basophils % 0.7 % (0-1.3); Lymphocytes % 16.4 % (15.3-44.8); MPV 8.6 fL (7.6-11.3); RBC Red Blood Cell Count 1.86 M/uL (4.33-5.43)
[2019-02-08 23:09] LABS: Albumin 1.3 g/dL (3.4-5.0); Bilirubin Direct 8.3 mg/dL (0-0.2); Protein, Total 6.6 g/dL (6.4-8.2)
[2019-02-08 23:11] LABS: Bilirubin Total 10.8 mg/dL (0.2-1.0); Potassium 2.4 mmol/L (3.5-5.1)
[2019-02-08 23:32] LABS: Anisocytosis 1+; Blood Morphology Comment NOTED (NOT SEEN); Macrocytosis 1+; Platelet Estimate DECR; Rouleau NOTED; Urine White Blood Cell Casts OK
[2019-02-08] MEDS ORDERED: POTASSIUM 25 MEQ EFFERV TAB ONE (23:49)
[2019-02-09] MEDS ORDERED: FENTANYL CITR 100 MCG/2 ML ONE ×2 (00:05→05:19)
[2019-02-09] MEDS ORDERED: ONDANSETRON 4 MG/2 ML VIAL ONE (00:05)
--- NOTE | 2019-02-09 02:57 | ER ---
Nurse's Notes [facility] Name: Wesley Taylor Age: 53 yrs Sex: Male : 1965 Arrival Date: 02/08/2019 Time: 20:06 Bed 2 Private MD: Diagnosis: Spontaneous bacterial peritonitis Presentation: 02/08 20:23 Presenting complaint: Patient states: i have been having abdominal pain for about 11 mg2 days, nauseous and getting weaker too. my balance has been off but i didn't fall. Transition of care: patient was not received from another setting of care. Onset of symptoms was January 2019. Risk Assessment: Do you want to hurt yourself or someone else? Patient reports no desire to harm self or others. Initial Sepsis Screen: Does the patient meet any 2 criteria? No. Patient's initial sepsis screen is negative. Does the patient have a suspected source of infection? No. Patient's initial sepsis screen is negative. Care prior to arrival: None. 20:23 Method Of Arrival: Wheelchair mg2 20:23 Acuity: MERNA 3 mg2 Historical: - Allergies: 20:28 No Known Allergies; mg2 - PMHx: 20:28 GI Bleed; esophageal varices; Cirrhosis; Alcoholism; mg2 - PSHx: 20:28 paracentesis; mg2 - Immunization history:: Flu vaccine is not up to date. - Social history:: Smoking status: Patient/guardian denies using tobacco, Patient uses alcohol, on a daily basis. Patient/guardian denies using street drugs. - Ebola Screening: : No symptoms or risks identified at this time. Screenin:17 Abuse screen: Denies threats or abuse. Denies injuries from another. Nutritional lp1 screening: No deficits noted. Tuberculosis screening: No symptoms or risk factors identified. Fall Risk Total [place] Fall Scale indicates High Risk Score (45 or more points). Fall prevention measures have been instituted. Side Rails Up X 2 As available patient and family educated on Fall Prevention Program and Strategies. Assessment: 21:00 General: Appears in no apparent distress. Behavior is calm, cooperative, appropriate lp1 for age. Pain: Complains of pain in abdomen Pain currently is 7 out of 10 on a pain scale. Quality of pain is described as aching. Neuro: Level of Consciousness is awake, alert, obeys commands, Oriented to person, place, situation. Cardiovascular: Patient's skin is warm and dry. Rhythm is sinus rhythm. Respiratory: Respiratory effort is even, Respiratory pattern is regular, Breath sounds are clear bilaterally. GI: Abdomen is round Bowel sounds present X 4 quads. Abdomen is tender to palpation X 4 quads. Reports nausea. : No signs and/or symptoms were reported regarding the genitourinary system. EENT: No signs and/or symptoms were reported regarding the EENT system. Derm: Skin is intact, Skin is dry, Skin is jaundiced. Musculoskeletal: No signs and/or symptoms reported regarding the musculoskeletal system. 22:15 Reassessment: Patient appears in no apparent distress at this time. Patient and/or lp1 family updated on plan of care and expected duration. Pain level reassessed. resting, calm, eyes closed. 23:08 Reassessment: Patient appears in no apparent distress at this time. Family at bedside lp1 visiting with patient. 23:59 Reassessment: Provider notified of patient complaint of abdominal pain and nausea; [facility] Verbal order for Fentanyl 25 mcg IV and Zofran 4 mg IV. 02/09 01:00 Reassessment: Patient appears in no apparent distress at this time. Patient and/or lp1 family updated on plan of care and expected duration. Pain level reassessed. Patient resting, eyes closed, respirations unlabored. 02:45 Reassessment: Dr. Sexton at bedside to assess patient's abdomen with ultrasound. [facility] 04:00 Reassessment: Report called to Velma Ennis RN at [facility]. [facility] 05:00 Reassessment: EMS at bedside for patient transfer. [facility] 05:00 Reassessment: Called patient's sister, Kalyn Padilla, to notify of patient transfer to [address]. 05:15 Reassessment: Patient complaint of abdominal pain; Provider verbal order for Fentanyl lp1 25 mcg IV. Vital Signs: 02/08 20:28 BP 155 / 76; Pulse 94; Resp 18; Temp 99.4; Pulse Ox 100% ; Weight 86.18 kg; Height 6 mg2 ft. 2 in. (187.96 cm); Pain 10/10; 21:00 BP 139 / 75; Pulse 94; Resp 13; Pulse Ox 100% on R/A; lp1 21:45 BP 145 / 71; Pulse 83; Resp 14; Pulse Ox 100% on R/A; lp1 22:30 BP 138 / 69; Pulse 89; Resp 14; Pulse Ox 100% on R/A; lp1 02/09 00:00 BP 146 / 77; Pulse 92; Resp 17; Pulse Ox 100% on R/A; Pain 8/10; lp1 00:45 BP 143 / 76; Pulse 85; Resp 20; Pulse Ox 100% on R/A; lp1 01:30 BP 132 / 75; Pulse 82; Resp 12; Pulse Ox 100% on R/A; lp1 02:15 BP 130 / 76; Pulse 81; Resp 16; Pulse Ox 100% on R/A; lp1 03:00 BP 147 / 76; Pulse 90; Resp 20; Temp 98(O); Pulse Ox 100% on R/A; lp1 04:00 BP 131 / 75; Pulse 84; Resp 13; Pulse Ox 99% on R/A; lp1 05:00 BP 131 / 70; Pulse 92; Resp 18; Pulse Ox 99% on R/A; Pain 8/10; lp1 02/08 20:28 Body Mass Index 24.39 (86.18 kg, 187.96 cm) mg2 ED Course: 02/08 20:06 Patient arrived in ED. cf2 20:26 Triage completed. mg2 20:28 Arm band placed on. mg2 20:38 Ana Esquivel, SCHUYLER is Primary Nurse. lp1 20:39 Toby Sexton MD is Attending Physician. gs 21:00 Patient has correct armband on for positive identification. Placed in gown. Bed in low lp1 position. Call light in reach. monitor tech on. Pulse ox on. NIBP on. 21:36 Inserted saline lock: 20 gauge in right antecubital area, using aseptic technique. oe Blood collected. 23:09 No provider procedures requiring assistance completed. lp1 23:12 Notified ED physician of a critical lab result(s). Potassium 2.4, Total Bilirubin 10.8, lp1 Hemoglobin 7.2, Platelet 38. 02/09 01:37 CT Abd/Pelvis - IV Contrast Only In Process Unspecified. EDMS 05:25 Patient transferred, IV remains in place. lp1 Administered Medications: 02/08 21:32 Drug: NS 0.9% 1000 ml Route: IV; Rate: 125 ml/hr; Site: right antecubital; lp1 02/09 05:24 Follow up: IV Status: Infusion continued upon transfer lp1 02/08 21:32 Drug: Zofran 4 mg Route: IVP; Site: right antecubital; lp1 22:00 Follow up: Response: Nausea is decreased lp1 21:32 Drug: fentaNYL (PF) 25 mcg {Note: RASS 0.} Route: IVP; Site: right antecubital; lp1 22:30 Follow up: Response: Pain is decreased lp1 23:53 Drug: Potassium Effervescent Tablet 50 mEq Route: PO; cc3 02/09 00:00 Follow up: Response: No adverse reaction cc3 00:05 Drug: Zofran 4 mg {Note: RASS 0.} Route: IVP; Site: right antecubital; lp1 01:00 Follow up: Response: Nausea is decreased lp1 00:06 Drug: fentaNYL (PF) 25 mcg {Note: RASS 0.} Route: IVP; Site: right antecubital; lp1 00:45 Follow up: Response: Pain is decreased; RASS: Alert and Calm (0) lp1 03:14 Drug: Zosyn 3.375 grams Route: IVPB; Infused Over: 60 mins; Site: right antecubital; lp1 04:15 Follow up: IV Status: Completed infusion; IV Intake: 100ml lp1 05:23 Drug: fentaNYL (PF) 25 mcg {Note: RASS 0.} Route: IVP; Site: right antecubital; lp1 05:23 Follow up: Response: Medication administered at discharge. lp1 Intake: 04:15 IV: 100ml; Total: 100ml. lp1 Output: 02:30 Urine: 400ml (Voided); Total: 400ml. lp1 Outcome: 02:56 ER care complete, transfer ordered by 03:23 Condition: stable lp1 03:23 Instructed on the need for transfer. 05:25 Transferred by ground EMS to [facility], Transfer form completed. lp1 X-rays sent w/ patient. 05:26 Patient left the ED. lp1 Signatures: Dispatcher [employer] EDAna Ornelas RN RN lp1 DiazSalty justin Gregory, MD MD gs Speedy Mercedes RN RN [facility] Mckenzie Triplett cc3 Aleena Mast 2 Corrections: (The following items were deleted from the chart) 02/08 21:19 21:00 GI: Abdomen is round Bowel sounds present X 4 quads. Abdomen is tender to lp1 palpation X 4 quads. lp1 02/09 00:05 02/08 23:59 Reassessment: Provider notified of patient complaint of abdominal pain and lp1 nausea; Verbal order for Fentanyl 50 mcg IV and Zofran 4 mg IV lp1 02/09 00:12 00:00 BP 146 / 77; Pulse 92bpm; Resp 17bpm; Pulse Ox 100% RA; lp1 lp1
--- NOTE | 2019-02-09 02:57 | EDPHYS ---
Physician Documentation [facility] Name: Wesley Taylor Age: 53 yrs Sex: Male : 1965 Arrival Date: 02/08/2019 Time: 20:06 Bed 2 Private MD: ED Physician Toby Sexton HPI: 02/09 03:03 This 53 yrs old Male presents to ER via Wheelchair with complaints of gs Abdominal Pain. 03:03 The patient presents with abdominal pain that is diffuse. Onset: The symptoms/episode gs began/occurred gradually, 1 week(s) ago. The symptoms do not radiate. 03:09 Associated signs and symptoms: Pertinent negatives: blood in stools, fever, vomiting gs blood. The symptoms are described as crampy, intermittent. Modifying factors: the symptoms are aggravated by touching the area. Severity of pain: At its worst the pain was moderate in the emergency department the pain is unchanged. The patient has experienced similar episodes in the past, a few times. Historical: - Allergies: 02/08 20:28 No Known Allergies; mg2 - PMHx: 20:28 GI Bleed; esophageal varices; Cirrhosis; Alcoholism; mg2 - PSHx: 20:28 paracentesis; mg2 - Immunization history:: Flu vaccine is not up to date. - Social history:: Smoking status: Patient/guardian denies using tobacco, Patient uses alcohol, on a daily basis. Patient/guardian denies using street drugs. - Ebola Screening: : No symptoms or risks identified at this time. ROS: 02/09 03:09 All other systems are negative. gs Exam: 03:09 Head/Face: Normocephalic, atraumatic. ENT: Nares patent. No nasal discharge, no gs septal abnormalities noted. Tympanic membranes are normal and external auditory canals are clear. Oropharynx with no redness, swelling, or masses, exudates, or evidence of obstruction, uvula midline. Mucous membranes moist. Neck: Trachea midline, no thyromegaly or masses palpated, and no cervical lymphadenopathy. Supple, full range of motion without nuchal rigidity, or vertebral point tenderness. No Meningismus. Chest/axilla: Normal chest wall appearance and motion. Nontender with no deformity. No lesions are appreciated. Cardiovascular: Regular rate and rhythm with a normal S1 and S2. No gallops, murmurs, or rubs. Normal PMI, no JVD. No pulse deficits. Respiratory: Lungs have equal breath sounds bilaterally, clear to auscultation and percussion. No rales, rhonchi or wheezes noted. No increased work of breathing, no retractions or nasal flaring. Back: No spinal tenderness. No costovertebral tenderness. Full range of motion. Skin: Warm, dry with normal turgor. Normal color with no rashes, no lesions, and no evidence of cellulitis. MS/ Extremity: Pulses equal, no cyanosis. Neurovascular intact. Full, normal range of motion. Neuro: Awake and alert, GCS 15, oriented to person, place, time, and situation. Cranial nerves II-XII grossly intact. Motor strength 5/5 in all extremities. Sensory grossly intact. Cerebellar exam normal. Normal gait. 03:09 Constitutional: The patient appears alert, awake. 03:09 Eyes: Sclera: icterus, is present. 03:09 Skin: Appearance: Color: jaundiced. Vital Signs: 02/08 20:28 BP 155 / 76; Pulse 94; Resp 18; Temp 99.4; Pulse Ox 100% ; Weight 86.18 kg; Height 6 mg2 ft. 2 in. (187.96 cm); Pain 10/10; 21:00 BP 139 / 75; Pulse 94; Resp 13; Pulse Ox 100% on R/A; lp1 21:45 BP 145 / 71; Pulse 83; Resp 14; Pulse Ox 100% on R/A; lp1 22:30 BP 138 / 69; Pulse 89; Resp 14; Pulse Ox 100% on R/A; lp1 02/09 00:00 BP 146 / 77; Pulse 92; Resp 17; Pulse Ox 100% on R/A; Pain 8/10; lp1 00:45 BP 143 / 76; Pulse 85; Resp 20; Pulse Ox 100% on R/A; lp1 01:30 BP 132 / 75; Pulse 82; Resp 12; Pulse Ox 100% on R/A; lp1 02:15 BP 130 / 76; Pulse 81; Resp 16; Pulse Ox 100% on R/A; lp1 03:00 BP 147 / 76; Pulse 90; Resp 20; Temp 98(O); Pulse Ox 100% on R/A; lp1 04:00 BP 131 / 75; Pulse 84; Resp 13; Pulse Ox 99% on R/A; lp1 05:00 BP 131 / 70; Pulse 92; Resp 18; Pulse Ox 99% on R/A; Pain 8/10; lp1 02/08 20:28 Body Mass Index 24.39 (86.18 kg, 187.96 cm) mg2 MDM: 02/08 21:01 Patient medically screened. 02/09 03:09 Differential diagnosis: bowel obstruction, diverticulitis, non-specific abd pain, gs pancreatitis, Peptic Ulcer Disease, sbp-looked under us no pckets of ascites to tap will cover with abx. Data reviewed: vital signs, nurses notes. Response to treatment: There is no appreciated change of the patient's symptoms at this time. 02/08 21:02 Order name: Basic Metabolic Panel; Complete Time: 23:18 02/08 21:02 Order name: CBC with Diff; Complete Time: 23:47 02/08 21:02 Order name: Hepatic Function; Complete Time: 23:18 02/08 21:02 Order name: Lipase; Complete Time: 23:18 02/08 21:02 Order name: AMMONIA; Complete Time: 23:18 02/08 21:02 Order name: Blood Culture* 02/08 23:22 Order name: CT Abd/Pelvis - IV Contrast Only 02/08 23:34 Order name: CBC Smear Scan; Complete Time: 23:47 EDAR 02/09 02:57 Order name: PT-INR; Complete Time: 05:07 02/08 21:02 Order name: IV Saline Lock; Complete Time: 21:39 02/08 21:02 Order name: Labs collected and sent; Complete Time: 21:39 Administered Medications: 02/08 21:32 Drug: NS 0.9% 1000 ml Route: IV; Rate: 125 ml/hr; Site: right antecubital; [facility] 02/09 05:24 Follow up: IV Status: Infusion continued upon transfer [facility] 02/08 21:32 Drug: Zofran 4 mg Route: IVP; Site: right antecubital; lp1 22:00 Follow up: Response: Nausea is decreased lp1 21:32 Drug: fentaNYL (PF) 25 mcg {Note: RASS 0.} Route: IVP; Site: right antecubital; lp1 22:30 Follow up: Response: Pain is decreased lp1 23:53 Drug: Potassium Effervescent Tablet 50 mEq Route: PO; cc3 02/09 00:00 Follow up: Response: No adverse reaction cc3 00:05 Drug: Zofran 4 mg {Note: RASS 0.} Route: IVP; Site: right antecubital; lp1 01:00 Follow up: Response: Nausea is decreased lp1 00:06 Drug: fentaNYL (PF) 25 mcg {Note: RASS 0.} Route: IVP; Site: right antecubital; lp1 00:45 Follow up: Response: Pain is decreased; RASS: Alert and Calm (0) lp1 03:14 Drug: Zosyn 3.375 grams Route: IVPB; Infused Over: 60 mins; Site: right antecubital; lp1 04:15 Follow up: IV Status: Completed infusion; IV Intake: 100ml lp1 05:23 Drug: fentaNYL (PF) 25 mcg {Note: RASS 0.} Route: IVP; Site: right antecubital; lp1 05:23 Follow up: Response: Medication administered at discharge. lp1 Disposition: 02/09/19 02:56 Transfer ordered to [facility]. Diagnosis is Spontaneous bacterial peritonitis. - Reason for transfer: Higher level of care. - Accepting physician is [facility]. - Condition is Stable. - Problem is new. - Symptoms are unchanged. Signatures: Dispatcher [employer] EDAna Ornelas RN RN lp1 Toby Sexton MD MD Speedy Mercedes RN RN [facility] Mckenzie Triplett cc3 Corrections: (The following items were deleted from the chart) 05:26 02:56 02/09/2019 02:56 Transfer ordered to [facility]. Diagnosis is lp1 Spontaneous bacterial peritonitis. Reason for transfer: Higher level of care. Accepting physician is [facility]. Condition is Stable. Problem is new. Symptoms are unchanged. gs
[2019-02-09] MEDS ORDERED: PIPER/TAZO/NS 3.375gm 3.375 GM/100 ML BAG ONE (03:06)
[2019-02-09 04:04] LABS: Protime INR 3.93
[2019-02-09 06:03] VITALS: TEMP 98
[2019-02-09 06:04] VITALS: O2SAT 99
[2019-02-09 06:06] VITALS: BP 131/70
--- NOTE | 2019-02-11 18:04 | RAD REPORT ---
EXAM DESCRIPTION: CT - Abdomen Pelvis W Contrast - 02/09/2019 3:31 am CLINICAL HISTORY: ABD PAIN TECHNIQUE: Contiguous axial images obtained through the abdomen and pelvis following the uneventful administration of IV contrast. Coronal and sagittal reformatted images were provided. This exam was performed according to our departmental dose-optimization program, which includes autom ated exposure control, adjustment of the mA and/or kV according to patient size and/or use of iterati ve reconstruction technique. COMPARISON: 02/15/2017 FINDINGS: Lung bases: Trace left pleural effusion. Liver: Interval decrease in size of the liver with diffuse surface contour nodularity. Somewhat branc ebony linear low density within the right posterior aspect of the liver extending to the TIPS. Gallbladder and biliary system: Moderate circumferential gallbladder wall thickening. No calcified ga llstones. Pancreas: Unremarkable Spleen: Interval development of mild splenomegaly measuring 13.3 cm in maximum 11.9 cm). Adrenals: Unremarkable Kidneys: Normal renal cortical enhancement. No calculi. No hydronephrosis. Bowel: Moderate stool. No obstruction. No appreciable mucosal thickening. Appendix: Normal caliber appendix. No findings to suggest acute appendicitis. Urinary bladder: Mild circumferential urinary bladder wall thickening. Reproductive: Unremarkable as visualized Lymph nodes: No pathologically enlarged lymph nodes. Peritoneum: Small amount of free fluid within the abdomen and pelvis. Mild generalized mesenteric lisa ma. No free air. Vessels: Interval placement of a TIPS which appears patent. Mild atherosclerotic disease. No abdomina l aortic aneurysm. Abdominal wall: Mild body wall edema. Bones: Multilevel spondylosis. No acute fracture. IMPRESSION: 1. Findings compatible with hepatic cirrhosis and sequela of portal hypertension. Smal l amount of abdominal and pelvic ascites. TIPS appears patent. Somewhat branching linear low density within the right posterior hepatic lobe extending to the tips possibly related to thrombosed portal v enous branches. 2. There is nonspecific gallbladder wall thickening, a finding which can be seen in hepatic dysfunc tion, immunocompromise, hypoalbuminemia, acute or chronic cholecystitis among the diagnostic possibil ities. 3. Mild circumferential urinary bladder wall thickening. Please correlate clinically for cystitis. 4. Other findings as above. Electronically signed by: Ammon Greco MD 02/09/2019 2:16 AM CDT Due to temporary technical issues with the PACS/Fluency reporting system, reports are being signed by the in house radiologist as a courtesy to ensure prompt reporting. The interpreting radiologist is f ully responsible for the content of the report.
== END 2019-02-09 05:26 | disposition short-term general hospital (02) ==
LOC: ER 20:02
DX: K65.2 Spontaneous bacterial peritonitis (principal); F10.20 Alcohol dependence, uncomplicated; K70.30 Alcoholic cirrhosis of liver without ascites
CPT/HCPCS: 36415; 74177; 80048; 80076; 82140; 83690; 85025; 85610; 87040; 96361; 96365; 96375; 99285; J2405; J2543; J3010; J7030; Q9967

== ENCOUNTER 2019-03-10 13:23 | Emergency (ER) | payer OTHER, SELFPAY ==
--- NOTE | 2019-03-10 14:30 | RAD REPORT ---
EXAM DESCRIPTION: CT - Head Brain Wo Cont - 03/10/2019 2:17 pm CLINICAL HISTORY: AMS Headache, drowsiness COMPARISON: Head Brain Wo Cont dated 12/31/2018; HEAD BRAIN W O CONTRAST dated 07/30/2015 TECHNIQUE: All CT scans are performed using dose optimization technique as appropriate and may inclu de automated exposure control or mA/KV adjustment according to patient size. FINDINGS: 14 x 14 mm acute intercerebral hematoma seen in the right cerebellar hemisphere.No hydroce phalus, extra-axial fluid collection seen. No additional areas of hemorrhage identified.No areas of b rain edema or evidence of midline shift. The paranasal sinuses and mastoids are clear. The calvarium is intact. IMPRESSION: 14 mm acute hematoma in the right cerebellar hemisphere. The findings were discussed with Dr. Driscoll in the ER on 03/10/2019 at 2:26 p.m. by telephone.
--- NOTE | 2019-03-10 14:31 | RAD REPORT ---
EXAM DESCRIPTION: RAD - Chest Single View - 03/10/2019 2:25 pm CLINICAL HISTORY: AMS Chest pain. COMPARISON: Chest Single View dated 12/31/2018; Chest Single View dated 01/24/2018; Chest Single View dated 02/15/2017; CHEST SINGLE VIEW dated 08/04/2015 FINDINGS: Portable technique limits examination quality. The lungs are grossly clear. The heart is normal in size. No displaced fractures. IMPRESSION: No acute intrathoracic process suspected.
[2019-03-10] MEDS ORDERED: NA CHLORIDE 0.9% 500 ML ONE ×2 (14:34→15:45)
[2019-03-10] MEDS ORDERED: Nicardipine/NS 25 MG/250 ML KIT IV ONE (14:43)
[2019-03-10] MEDS ORDERED: levETIRAcetam 1,000 MG in NA CHLORIDE 0.9% 100 ML IV ONE (14:45)
[2019-03-10 15:01] LABS: Basophils % 0.3 % (0-1.3); Lymphocytes % 23.7 % (15.3-44.8); RBC Red Blood Cell Count 2.01 M/uL (4.33-5.43)
[2019-03-10] MEDS ORDERED: ONDANSETRON 4 MG/2 ML VIAL ONE (15:07)
[2019-03-10] MEDS ORDERED: PROMETHAZINE 25 MG/ML VIAL ONE (15:07)
[2019-03-10 15:14] LABS: Protime INR 2.62
[2019-03-10 15:16] LABS: Albumin 1.8 g/dL (3.4-5.0); Bilirubin Direct 5.4 mg/dL (0-0.2); Bilirubin Total 8.1 mg/dL (0.2-1.0)
[2019-03-10 15:19] LABS: Potassium 2.8 mmol/L (3.5-5.1)
--- NOTE | 2019-03-10 15:31 | EDPHYS ---
Physician Documentation [facility] Name: Wesley Taylor Age: 53 yrs Sex: Male : 1965 Arrival Date: 03/10/2019 Time: 13:28 Bed 5 Private MD: ED Physician Shan Driscoll HPI: 03/10 15:13 This 53 yrs old Male presents to ER via Wheelchair with complaints of rn Confusion. 15:20 The patient presents with confusion, decreased mental status, decreased responsiveness. rn Onset: The symptoms/episode began/occurred 2 day(s) ago. Possible causes: unknown. Current symptoms: In the emergency department the patient's symptoms are unchanged from the initial presentation. The patient has experienced similar episodes in the past. Sister brings patient in for AMS, states has alcoholic cirrhosis, no recent trauma, still drinks, not compliant with lactulose. . Historical: - Allergies: 13:35 No Known Allergies; tw2 - PMHx: 13:35 GI Bleed; esophageal varices; Cirrhosis; Alcoholism; tw2 - PSHx: 13:35 paracentesis; tw2 - Immunization history:: Adult Immunizations. - Social history:: Smoking status: . - Ebola Screening: : Patient denies travel to an Ebola-affected area in the 21 days before illness onset. - Family history:: not pertinent. - Hospitalizations: : Patient was recently seen at. ROS: 15:20 Constitutional: Negative for fever, chills, and weight loss, Eyes: Negative for injury, rn pain, redness, and discharge, Neck: Negative for injury, pain, and swelling, Cardiovascular: Negative for chest pain, palpitations, and edema, Respiratory: Negative for shortness of breath, cough, wheezing, and pleuritic chest pain, Abdomen/GI: + nausea and diarrhea MS/Extremity: Negative for injury and deformity, Skin: Negative for injury, rash, and discoloration, Neuro: + generalized weakness and headache, feels uncoordinated Exam: 15:20 Constitutional: Juandiced patient, no acute distress, obviously confused Head/Face: rn Normocephalic, atraumatic. Eyes: + scleral icterus ENT: dry MM Neck: Supple, full range of motion without nuchal rigidity, or vertebral point tenderness. No Meningismus. Cardiovascular: Regular rate and rhythm. No pulse deficits. Respiratory: No increased work of breathing, no retractions or nasal flaring. Abdomen/GI: soft, non-tender, + fluid wave, no peritoneal signs Skin: + diffuse jaundice MS/ Extremity: Pulses equal, no cyanosis. Neurovascular intact. Full, normal range of motion. Equal circumference. Neuro: Awake, alert, slow to respond but follows commands, oriented to person but not place or time. Moves all 4 extremities with 4/5 strength, normal sensation, unsteady when standing and requires assistance even with a few steps. Slow but seemingly normal finger to nose testing. Vital Signs: 13:34 BP 172 / 81; Pulse 95; Resp 18; Temp 98.8(TE); Pulse Ox 99% on R/A; Weight 90.72 kg tw2 (R); Height 6 ft. 2 in. (187.96 cm); 15:30 BP 162 / 89; Pulse 95; Resp 17; Pulse Ox 99% on R/A; sg 15:45 BP 154 / 61; Pulse 98 MON; Resp 17; Pulse Ox 99% on R/A; sg 16:00 BP 161 / 95; Pulse 97; Resp 17; Pulse Ox 98% on R/A; sg 16:17 BP 146 / 74; Pulse 95; Resp 16; Pulse Ox 97% on R/A; sg 17:15 BP 158 / 65; Pulse 98 MON; Resp 18; Pulse Ox 99% on R/A; sg 17:23 BP 154 / 54; Pulse 92 MON; Resp 17; Temp 98.6; Pulse Ox 99% on R/A; sg 17:54 BP 132 / 73; Pulse 100 MON; Resp 17 S; Temp 98.6; Pulse Ox 99% on R/A; sg 18:15 BP 150 / 83; Pulse 92; Resp 18; Pulse Ox 99% on R/A; sg 18:30 BP 136 / 74; Pulse 102; Resp 17 S; Temp 98.0; Pulse Ox 99% on R/A; sg 13:34 Body Mass Index 25.68 (90.72 kg, 187.96 cm) tw2 MDM: 13:41 Patient medically screened. rn 15:27 Differential Diagnosis: CVA, electrolyte abnormality, alcohol intoxication, rn hypoglycemia, intracranial bleed, hepatic encephalopathy. Data reviewed: vital signs, nurses notes, lab test result(s), radiologic studies, CT scan, and as a result, I will admit patient. Counseling: I had a detailed discussion with the patient and/or guardian regarding: the historical points, exam findings, and any diagnostic results supporting the discharge/admit diagnosis, radiology results, the need to transfer to another facility, for higher level of care, [facility] does not immediately have the required specialist. ED course: Pt with right cerebellar hemorrhage, ataxia, and AMS, ordered platelets and FFP along with cardene drip for BP control given coagulopathy from cirrhosis. . 03/10 13:53 Order name: CBC with Diff; Complete Time: 18:02 03/10 13:53 Order name: Basic Metabolic Panel; Complete Time: 15:30 rn 03/10 13:53 Order name: Protime (+inr); Complete Time: 15:30 rn 03/10 13:53 Order name: Ptt, Activated; Complete Time: 15:30 03/10 13:53 Order name: AMMONIA; Complete Time: 15:30 03/10 13:53 Order name: LFT's; Complete Time: 15:30 03/10 13:53 Order name: XRAY Chest (1 view); Complete Time: 14:49 rn 03/10 13:53 Order name: CT Head Brain wo Cont; Complete Time: 14:49 rn 03/10 13:54 Order name: ETOH Level; Complete Time: 15:30 03/10 14:34 Order name: Type And Screen 03/10 14:35 Order name: Bb Add On bd 03/10 14:44 Order name: Fresh Frozen Plasma [facility] 03/10 14:44 Order name: Platelets, Leukored Pheresis [facility] 03/10 15:08 Order name: CBC Smear Scan; Complete Time: 18:02 [facility] 03/10 13:53 Order name: IV Start; Complete Time: 14:38 rn 03/10 13:53 Order name: EKG; Complete Time: 13:54 rn 03/10 13:53 Order name: EKG - Nurse/Tech; Complete Time: 14:48 rn Administered Medications: 14:37 Drug: NS 0.9% 500 ml Route: IV; Rate: bolus; Site: right antecubital; sg 14:57 Drug: Keppra 1000 mg Route: IV; Rate: calculated rate; Site: right antecubital; sg 15:20 Follow up: Response: No adverse reaction; IV Status: Completed infusion sg 15:15 Drug: Zofran 4 mg Route: IVP; Site: right antecubital; sg 15:55 Follow up: Response: No adverse reaction sg 15:17 Drug: niCARdipine (25mg/250ml) 5 mg/hr Route: IV; Rate: calculated rate; Site: right sg antecubital; 15:55 Drug: Demerol 25 mg Route: IVP; Site: right antecubital; sg 16:20 Follow up: Response: No adverse reaction sg 16:50 Drug: Potassium Chloride 40 mEq Route: PO; ss Disposition: 15:29 Critical Care:. rn Disposition: 03/10/19 15:30 Transfer ordered to [facility]. Diagnosis are Altered mental status, unspecified, Spontaneous cerebellar hemorrhage, Alcoholic cirrhosis of liver with ascites. - Reason for transfer: Higher level of care. - Accepting physician is . - Condition is Fair. - Problem is new. - Symptoms are unchanged. Critical care time excluding procedures: 15:29 Critical care time: Bedside Care: 25 minutes, Family Intervention: 5 minutes. Total rn time: 30 minutes Signatures: Dispatcher [employer] EDMS Vitaly Murphy RN RN sg Shan Driscoll MD MD rn Smirch, Shelby, RN RN ss Wise, Tara, RN RN tw2 Corrections: (The following items were deleted from the chart) 18:37 15:30 03/10/2019 15:30 Transfer ordered to [facility]. Diagnosis is ss Altered mental status, unspecified; Spontaneous cerebellar hemorrhage; Alcoholic cirrhosis of liver with ascites. Reason for transfer: Higher level of care. Accepting physician is . Condition is Fair. Problem is new. Symptoms are unchanged. rn
--- NOTE | 2019-03-10 15:31 | ER ---
Nurse's Notes [facility] Name: Wesley Taylor Age: 53 yrs Sex: Male : 1965 Arrival Date: 03/10/2019 Time: 13:28 Bed 5 Private MD: Diagnosis: Altered mental status, unspecified;Spontaneous cerebellar hemorrhage;Alcoholic cirrhosis of liver with ascites Presentation: 03/10 13:33 Presenting complaint: Patient states: started yesterday i feel confused, pts sister tw2 says he has been disoriented for several days. Transition of care: patient was not received from another setting of care. Onset of symptoms was March 10, 2019. Risk Assessment: Do you want to hurt yourself or someone else? Patient reports no desire to harm self or others. Initial Sepsis Screen: Does the patient meet any 2 criteria? No. Patient's initial sepsis screen is negative. Does the patient have a suspected source of infection? No. Patient's initial sepsis screen is negative. Care prior to arrival: None. 13:33 Method Of Arrival: Wheelchair tw2 13:33 Acuity: MERNA 2 tw2 Triage Assessment: 13:34 General: Appears uncomfortable, Behavior is cooperative. Pain: Complains of pain in tw2 abdomen. Derm: Reports swelling in b/l LE. 13:34 Derm: Skin is jaundiced. tw2 Historical: - Allergies: 13:35 No Known Allergies; tw2 - PMHx: 13:35 GI Bleed; esophageal varices; Cirrhosis; Alcoholism; tw2 - PSHx: 13:35 paracentesis; tw2 - Immunization history:: Adult Immunizations. - Social history:: Smoking status: . - Ebola Screening: : Patient denies travel to an Ebola-affected area in the 21 days before illness onset. - Family history:: not pertinent. - Hospitalizations: : Patient was recently seen at. Screenin:17 Abuse screen: Denies threats or abuse. Nutritional screening: No deficits noted. tw2 Tuberculosis screening: No symptoms or risk factors identified. Fall Risk None identified. Assessment: 13:40 General: Appears in no apparent distress. uncomfortable, ill, well groomed, well sg developed, well nourished, Behavior is calm, cooperative. 13:40 Neuro: Level of Consciousness is awake, obeys commands, confused, Oriented to Hide Spreader are sg equal bilaterally Speech is normal, Facial symmetry appears normal. Cardiovascular: Capillary refill is brisk in bilateral fingers Patient's skin is warm and dry. Chest pain is denied. Respiratory: Airway is patent Respiratory effort is even, unlabored, Respiratory pattern is regular, symmetrical. Derm: Skin is jaundiced, Skin temperature is warm. Musculoskeletal: Circulation, motion, and sensation intact. Range of motion: intact in all extremities. 15:12 Reassessment: Dr. Driscoll notified of critical lab values. potassium 2.8 and Total ss Bilirubin 8.1. 16:00 Reassessment: Patient appears in no apparent distress at this time. Patient and/or sg family updated on plan of care and expected duration. Pain level reassessed. Patient states symptoms have not improved. 17:27 Reassessment: Patient appears in no apparent distress at this time. Patient and/or sg family updated on plan of care and expected duration. Pain level reassessed. Patient is alert, oriented x 3, equal unlabored respirations, skin warm/dry/pink. Patient states feeling better. 17:50 Reassessment: report called to [facility] for [facility] Neuro/ICU. sg 18:00 General: Appears in no apparent distress. well developed, well nourished, Behavior is sg calm, cooperative. Pain: Complains of pain in abdomen. Neuro: Level of Consciousness is awake, alert, obeys commands, Oriented to person, Hide Spreader are equal bilaterally Speech is normal, Facial symmetry appears normal. Cardiovascular: Capillary refill is brisk in bilateral Patient's skin is warm and dry. Chest pain is denied. Respiratory: Airway is patent Respiratory effort is even, unlabored, Respiratory pattern is regular, symmetrical. GI: No signs and/or symptoms were reported involving the gastrointestinal system. : No signs and/or symptoms were reported regarding the genitourinary system. EENT: No signs and/or symptoms were reported regarding the EENT system. Derm: Skin is jaundiced, Skin temperature is warm. Musculoskeletal: Circulation, motion, and sensation intact. Range of motion: intact in all extremities. 18:30 Reassessment: Patient appears in no apparent distress at this time. Patient and/or sg family updated on plan of care and expected duration. Pain level reassessed. pt completed the Platelets and Plasma as ordered. Vital Signs: 13:34 BP 172 / 81; Pulse 95; Resp 18; Temp 98.8(TE); Pulse Ox 99% on R/A; Weight 90.72 kg tw2 (R); Height 6 ft. 2 in. (187.96 cm); 15:30 BP 162 / 89; Pulse 95; Resp 17; Pulse Ox 99% on R/A; sg 15:45 BP 154 / 61; Pulse 98 MON; Resp 17; Pulse Ox 99% on R/A; sg 16:00 BP 161 / 95; Pulse 97; Resp 17; Pulse Ox 98% on R/A; sg 16:17 BP 146 / 74; Pulse 95; Resp 16; Pulse Ox 97% on R/A; sg 17:15 BP 158 / 65; Pulse 98 MON; Resp 18; Pulse Ox 99% on R/A; sg 17:23 BP 154 / 54; Pulse 92 MON; Resp 17; Temp 98.6; Pulse Ox 99% on R/A; sg 17:54 BP 132 / 73; Pulse 100 MON; Resp 17 S; Temp 98.6; Pulse Ox 99% on R/A; sg 18:15 BP 150 / 83; Pulse 92; Resp 18; Pulse Ox 99% on R/A; sg 18:30 BP 136 / 74; Pulse 102; Resp 17 S; Temp 98.0; Pulse Ox 99% on R/A; sg 13:34 Body Mass Index 25.68 (90.72 kg, 187.96 cm) tw2 ED Course: 13:28 Patient arrived in ED. mr 13:34 Triage completed. tw2 13:34 Arm band placed on. tw2 13:38 Call light in reach. Side rails up X2. Adult w/ patient. tw2 13:41 Shan Driscoll MD is Attending Physician. rn 14:04 EKG done, by renewable energy technician. reviewed by Shan Driscoll MD. sm3 14:17 CT Head Brain wo Cont In Process Unspecified. EDMS 14:23 XRAY Chest (1 view) In Process Unspecified. EDMS 15:16 Vitaly Murphy, RN is Primary Nurse. sg 17:50 No provider procedures requiring assistance completed. Patient transferred, IV remains sg in place. intact, No redness/swelling at site. Administered Medications: 14:37 Drug: NS 0.9% 500 ml Route: IV; Rate: bolus; Site: right antecubital; sg 14:57 Drug: Keppra 1000 mg Route: IV; Rate: calculated rate; Site: right antecubital; sg 15:20 Follow up: Response: No adverse reaction; IV Status: Completed infusion sg 15:15 Drug: Zofran 4 mg Route: IVP; Site: right antecubital; sg 15:55 Follow up: Response: No adverse reaction sg 15:17 Drug: niCARdipine (25mg/250ml) 5 mg/hr Route: IV; Rate: calculated rate; Site: right sg antecubital; 15:55 Drug: Demerol 25 mg Route: IVP; Site: right antecubital; sg 16:20 Follow up: Response: No adverse reaction sg 16:50 Drug: Potassium Chloride 40 mEq Route: PO; Outcome: 15:30 ER care complete, transfer ordered by . rn 18:35 Transferred by ground EMS to [facility], [facility], Transfer form completed. sg 18:35 Condition: good 18:35 Instructed on the need for transfer, safety practices, Demonstrated understanding of instructions. 18:37 Patient left the ED. ss Signatures: Dispatcher [employer] EDMS Vitaly Murphy RN RN Evette Osuna mr Shan Driscoll MD MD rn Smirch, Shelby, RN RN ss Wise, Tara, RN RN 2 Sadie Henriquez 3 Corrections: (The following items were deleted from the chart) 16:07 16:00 BP 161 / 95; Pulse 17bpm; Resp 17bpm; Pulse Ox 98% RA; sg sg 18:57 13:40 General: Appears in no apparent distress. uncomfortable, ill, well groomed, well sg developed, well nourished, Behavior is calm, cooperative, sg
--- NOTE | 2019-03-10 15:41 | EKG ---
Test Date: 2019-03-10 Test Time: 13:49:34 Transcription: VALDEMAR MEASUREMENT RESULTS: Intervals: Rate: 95 NJ: 140 QRSD: 100 QT: 368 QTc: 462 [place]: P: 66 NJ: 140 QRS: 78 T: 35 INTERPRETIVE STATEMENTS: Normal sinus rhythm Nonspecific ST abnormality Abnormal ECG Compared to ECG 12/31/2018 11:48:48 ST (T wave) deviation now present Left ventricular hypertrophy no longer present Early repolarization no longer present Prolonged QT interval no longer present Electronically Signed On 03-10-19 15:40:47 CDT by Wally Mccloud
[2019-03-10] MEDS ORDERED: MEPERIDINE HCL 25 MG/0.5 ML ONE (15:57)
[2019-03-10] MEDS ORDERED: POTASSIUM CL SA 10 MEQ TAB PO ONE (16:03)
[2019-03-10 16:48] LABS: Anisocytosis 3+; Blood Morphology Comment NOTED (NOT SEEN); Elliptocytes 1+; Macrocytosis 2+; Platelet Estimate DECR; Polychromasia 1+; Rouleau NOTED; Urine White Blood Cell Casts OK
[2019-03-10 19:55] VITALS: TEMP 98.6; O2SAT 99
[2019-03-10 19:57] VITALS: BP 132/73
== END 2019-03-10 18:37 | disposition short-term general hospital (02) ==
LOC: ER 13:23
PROC: 30233K1 Transfusion of Nonautologous Frozen Plasma into Peripheral Vein, Percutaneous Approach (ICD-10-PCS; principal; 2019-03-10)
PROC: 30233N1 Transfusion of Nonautologous Red Blood Cells into Peripheral Vein, Percutaneous Approach (ICD-10-PCS; 2019-03-10)
DX: I61.4 Nontraumatic intracerebral hemorrhage in cerebellum (principal); K70.31 Alcoholic cirrhosis of liver with ascites; F10.20 Alcohol dependence, uncomplicated
CPT/HCPCS: 96365; 93005; 85025; 80048; 36415; 80320; 82140; 86900; 86850; 85610; 86901; 80076; 85730; 70450; 71045; 96375; 99285; 36430 ×2; J2175; J1953; P9035; P9059 ×3; J7030; J7040; J2405; J2550

== ENCOUNTER 2019-03-31 02:59 | Emergency (ER) | payer OTHER ==
[2019-03-31] MEDS ORDERED: SUCCINYLCHOLINE 20 MG/ML (10 ML) IV ONE (03:00)
[2019-03-31] MEDS ORDERED: ETOMIDATE 20 MG/10 ML VIAL IV ONE (03:00)
--- OUTSIDE RECORDS SUMMARY | 2019-03-31 03:22 | XMS REPORT ---
:1965 [facility] Address [address] [place] [address] Care Team Providers Name Role Phone THA ALMAGUER I. Unavailable Unavailable PAULA WHATLEY Unavailable Unavailable PRASANNA VENCES Unavailable Unavailable MICK RAHMAN Unavailable Unavailable Payers Payer Name Policy Type Policy Number Effective Date Expiration Date Problems This patient has no known problems. Allergies, Adverse Reactions, Alerts Allergy Allergy Status Severity Reaction(s) Onset Inactive Treating Comments Name Type Date Date Clinician No Known DA Active U 2019-02 Allergies 15 00:00:0 0 Medications This patient has no known medications. Results Test Description Test Time Test Comments Text Results Atomic Results Result Comments HEPATIC FUNCTION PANEL 2019-03-19 07:06:00 Test Item Value Reference Range Comments TOTAL PROTEIN (BEAKER) (test umuw=364) 6.5 gm/dL 6.0-8.3 ALBUMIN (BEAKER) (test rbns=5351) 1.9 g/dL 3.5-5.0 BILIRUBIN TOTAL (BEAKER) (test euix=013) 5.6 mg/dL 0.2-1.2 BILIRUBIN DIRECT (BEAKER) (test xtvg=089) 3.4 mg/dL 0.1-0.5 ALKALINE PHOSPHATASE (BEAKER) (test crjl=016) 162 U/L 40-150 AST (SGOT) (BEAKER) (test qiyq=595) 37 U/L 5-34 ALT (SGPT) (BEAKER) (test efqx=459) 14 U/L 6-55 Specimen moderately ictericBASIC METABOLIC [id number] 06:58:00 Test Item Value Reference Range Comments SODIUM (BEAKER) (test 138 meq/L 136-145 past=950) POTASSIUM (BEAKER) (test 3.5 meq/L 3.5-5.1 dwho=887) CHLORIDE (BEAKER) (test 111 meq/L 98-107 cfto=207) CO2 (BEAKER) (test 25 meq/L 22-29 zrkq=720) BLOOD UREA NITROGEN 6 mg/dL 7-21 (BEAKER) (test saun=401) CREATININE (BEAKER) (test 0.82 mg/dL 0.57-1.25 vtaj=925) GLUCOSE RANDOM (BEAKER) 72 mg/dL 70-105 (test zxlc=250) CALCIUM (BEAKER) (test 8.3 mg/dL 8.4-10.2 balf=750) EGFR (BEAKER) (test 99 mL/min/1.73 sq m ESTIMATED GFR IS NOT vxkh=6647) ACCURATE CREATININE CLEARANCE IN PREDICTING GLOMERULAR FILTRATION RATE. ESTIMATED GFR IS NOT APPLICABLE FOR DIALYSIS PATIENTS. Specimen moderately ictericPROTHROMBIN [id number] 05:16:00 Test Item Value Reference Range Comments PROTIME (BEAKER) (test huzx=875) 30.7 seconds 11.9-14.2 INR (BEAKER) (test lkqw=709) 3.1 <=5.9 Effective 10/09/2018: PT Reference Range ChangeNew: 11.9-14.2 Previous: 11.7- 14.7RECOMMENDED COUMADIN/WARFARIN INR THERAPY RANGESSTANDARD DOSE: 2.0-3.0 Includes: PROPHYLAXIS for venous thrombosis, systemic embolization; TREATMENT for venous thrombosis and/or pulmonary embolus.HIGH RISK: Target INR is2.5-3.5 for patients wiht mechanical heart valves.CBC W/PLT COUNT & AUTO [id number] 05:11:00 Test Item Value Reference Range Comments WHITE BLOOD CELL COUNT (BEAKER) (test vnie=189) 3.8 K/ L 3.5-10.5 RED BLOOD CELL COUNT (BEAKER) (test fxeq=977) 2.26 M/ L 4.63-6.08 HEMOGLOBIN (BEAKER) (test srrm=444) 8.1 GM/DL 13.7-17.5 HEMATOCRIT (BEAKER) (test rgey=263) 25.5 % 40.1-51.0 MEAN CORPUSCULAR VOLUME (BEAKER) (test lwze=941) 112.8 fL 79.0-92.2 MEAN CORPUSCULAR HEMOGLOBIN (BEAKER) (test 35.8 pg 25.7-32.2 kzoo=090) MEAN CORPUSCULAR HEMOGLOBIN CONC (BEAKER) (test 31.8 GM/DL 32.3-36.5 ncch=506) RED CELL DISTRIBUTION WIDTH (BEAKER) (test 19.6 % 11.6-14.4 rqxc=618) PLATELET COUNT (BEAKER) (test bqch=652) 45 K/CU MM 150-450 MEAN PLATELET VOLUME (BEAKER) (test bpah=320) 11.5 fL 9.4-12.4 NUCLEATED RED BLOOD CELLS (BEAKER) (test 0 /100 WBC 0-0 rgxn=055) NEUTROPHILS RELATIVE PERCENT (BEAKER) (test 53 % jdku=810) LYMPHOCYTES RELATIVE PERCENT (BEAKER) (test 24 % iqjk=171) MONOCYTES RELATIVE PERCENT (BEAKER) (test 16 % qygp=663) EOSINOPHILS RELATIVE PERCENT (BEAKER) (test 5 % pxdw=890) BASOPHILS RELATIVE PERCENT (BEAKER) (test 1 % pkfc=996) NEUTROPHILS ABSOLUTE COUNT (BEAKER) (test 1.99 K/ L 1.78-5.38 jwsn=249) LYMPHOCYTES ABSOLUTE COUNT (BEAKER) (test 0.92 K/ L 1.32-3.57 cnvb=376) MONOCYTES ABSOLUTE COUNT (BEAKER) (test czpp=309) 0.60 K/ L 0.30-0.82 EOSINOPHILS ABSOLUTE COUNT (BEAKER) (test 0.19 K/ L 0.04-0.54 ecvo=431) BASOPHILS ABSOLUTE COUNT (BEAKER) (test owmy=648) 0.05 K/ L 0.01-0.08 IMMATURE GRANULOCYTES-RELATIVE PERCENT (BEAKER) 1 % 0-1 (test vlax=7171) CBC W/PLT COUNT & AUTO [id number] 08:45:00 Test Item Value Reference Range Comments WHITE BLOOD CELL COUNT (BEAKER) (test fxlv=216) 3.2 K/ L 3.5-10.5 RED BLOOD CELL COUNT (BEAKER) (test jhqk=394) 2.15 M/ L 4.63-6.08 HEMOGLOBIN (BEAKER) (test xtxu=866) 7.6 GM/DL 13.7-17.5 HEMATOCRIT (BEAKER) (test mzyu=811) 24.0 % 40.1-51.0 MEAN CORPUSCULAR VOLUME (BEAKER) (test fdja=450) 111.6 fL 79.0-92.2 MEAN CORPUSCULAR HEMOGLOBIN (BEAKER) (test 35.3 pg 25.7-32.2 cwbl=857) MEAN CORPUSCULAR HEMOGLOBIN CONC (BEAKER) (test 31.7 GM/DL 32.3-36.5 ftfy=976) RED CELL DISTRIBUTION WIDTH (BEAKER) (test 19.7 % 11.6-14.4 rcal=123) PLATELET COUNT (BEAKER) (test jqkn=589) 43 K/CU MM 150-450 MEAN PLATELET VOLUME (BEAKER) (test jzov=648) 11.0 fL 9.4-12.4 NUCLEATED RED BLOOD CELLS (BEAKER) (test 0 /100 WBC 0-0 pabk=054) (CELLAVISION MANUAL DIFF)2019-03-18 08:45:00 Test Item Value Reference Range Comments NEUTROPHILS - REL (CELLAVISION)(BEAKER) (test 72 % dpcg=5521) LYMPHOCYTES - REL (CELLAVISION)(BEAKER) (test 13 % vnjr=4794) MONOCYTES - REL (CELLAVISION)(BEAKER) (test 5 % fnfi=2087) EOSINOPHILS - REL (CELLAVISION)(BEAKER) (test 5 % pmbg=3784) BASOPHILS - REL (CELLAVISION)(BEAKER) (test 1 % zfsj=3312) METAMYELOCYTES - REL (CELLAVISION)(BEAKER) (test 2 % 0-0 ylza=1119) BANDS - REL (CELLAVISION)(BEAKER) (test 2 % 0-10 afrz=1366) NEUTROPHILS - ABS (CELLAVISION)(BEAKER) (test 2.30 K/ul 1.78-5.38 hsqr=4904) LYMPHOCYTES - ABS (CELLAVISION)(BEAKER) (test 0.42 K/ul 1.32-3.57 xwqi=4192) MONOCYTES - ABS (CELLAVISION)(BEAKER) (test 0.16 K/uL 0.30-0.82 zjje=9760) EOSINOPHILS - ABS (CELLAVISION)(BEAKER) (test 0.16 K/uL 0.04-0.54 dtab=9388) BASOPHILS - ABS (CELLAVISION)(BEAKER) (test 0.03 K/uL 0.01-0.08 mzhv=6941) METAMYELOCYTES - ABS (CELLAVISION)(BEAKER) (test 0.06 K/uL 0.00-0.00 mcyb=1462) BANDS - ABS (CELLAVISION)(BEAKER) (test 0.06 K/uL 0.00-0.80 cajc=7286) TOTAL COUNTED (BEAKER) (test hcwb=7932) 100 WBC MORPHOLOGY (BEAKER) (test yrue=840) Normal PLT MORPHOLOGY (BEAKER) (test bfdl=441) Normal POLYCHROMATOPHILLIC RBCS(BEAKER) (test bnzr=796) 1+ few ANISOCYTOSIS (BEAKER) (test zdiu=492) 2+ moderate MICROCYTES (BEAKER) (test ekqz=858) 1+ few MACROCYTES (BEAKER) (test rplw=507) 2+ moderate POIKILOCYTES (BEAKER) (test khly=679) 1+ few SCHISTOCYTES (BEAKER) (test ysao=787) 1+ few OVALOCYTES (BEAKER) (test kdps=798) 1+ few MEG CELLS (BEAKER) (test bzao=012) 1+ few ARTIFACT (CELLAVISION)(BEAKER) (test gysd=5311) Present PLATELET CONCENTRATION (CELLAVISION)(BEAKER) Decreased (test ehxh=1649) Received comment: User comments: Slide comments:COMPREHENSIVE METABOLIC [id number] 07:20:00 Test Item Value Reference Range Comments TOTAL PROTEIN (BEAKER) 6.6 gm/dL 6.0-8.3 (test msva=419) ALBUMIN (BEAKER) (test 1.8 g/dL 3.5-5.0 hkle=8793) ALKALINE PHOSPHATASE 158 U/L 40-150 (BEAKER) (test osyr=479) BILIRUBIN TOTAL (BEAKER) 5.9 mg/dL 0.2-1.2 (test zoda=857) SODIUM (BEAKER) (test 138 meq/L 136-145 qzlj=948) POTASSIUM (BEAKER) (test 3.4 meq/L 3.5-5.1 ssbc=533) CHLORIDE (BEAKER) (test 110 meq/L 98-107 fici=070) CO2 (BEAKER) (test 25 meq/L 22-29 gfrl=097) BLOOD UREA NITROGEN 5 mg/dL 7-21 (BEAKER) (test faam=389) CREATININE (BEAKER) (test 0.73 mg/dL 0.57-1.25 vsuj=726) GLUCOSE RANDOM (BEAKER) 101 mg/dL 70-105 (test kpts=587) CALCIUM (BEAKER) (test 8.3 mg/dL 8.4-10.2 mefp=810) AST (SGOT) (BEAKER) (test 41 U/L 5-34 yufb=137) ALT (SGPT) (BEAKER) (test 15 U/L 6-55 qdof=210) EGFR (BEAKER) (test 113 mL/min/1.73 sq ESTIMATED GFR IS NOT rupk=4368) m ACCURATE CREATININE CLEARANCE IN PREDICTING GLOMERULAR FILTRATION RATE. ESTIMATED GFR IS NOT APPLICABLE FOR DIALYSIS PATIENTS. Specimen moderately ictericHEPATIC FUNCTION [id number] 07:20:00 Test Item Value Reference Range Comments TOTAL PROTEIN (BEAKER) (test exns=794) 6.6 gm/dL 6.0-8.3 ALBUMIN (BEAKER) (test azwk=0334) 1.8 g/dL 3.5-5.0 BILIRUBIN TOTAL (BEAKER) (test gbmr=684) 5.9 mg/dL 0.2-1.2 BILIRUBIN DIRECT (BEAKER) (test jsrt=471) 3.4 mg/dL 0.1-0.5 ALKALINE PHOSPHATASE (BEAKER) (test uvyn=790) 158 U/L 40-150 AST (SGOT) (BEAKER) (test nhsm=922) 41 U/L 5-34 ALT (SGPT) (BEAKER) (test jrqh=243) 15 U/L 6-55 Specimen moderately ictericPROTHROMBIN [id number] 05:24:00 Test Item Value Reference Range Comments PROTIME (BEAKER) (test paah=610) 31.5 seconds 11.9-14.2 INR (BEAKER) (test etwb=588) 3.3 <=5.9 Effective 10/09/2018: PT Reference Range ChangeNew: 11.9-14.2 Previous: 11.7- 14.7RECOMMENDED COUMADIN/WARFARIN INR THERAPY RANGESSTANDARD DOSE: 2.0-3.0 Includes: PROPHYLAXIS for venous thrombosis, systemic embolization; TREATMENT for venous thrombosis and/or pulmonary embolus.HIGH RISK: Target INR is2.5-3.5 for patients wiht mechanical heart valves.BLOOD [id number] 19:00:00 Test Item Value Reference Range Comments CULTURE (BEAKER) (test fjvo=6501) No growth in 5 days BLOOD [id number] 19:00:00 Test Item Value Reference Range Comments CULTURE (BEAKER) (test idfm=0407) No growth in 5 days POCT-GLUCOSE [id number] 08:15:00 Test Item Value Reference Range Comments POC-GLUCOSE METER (BEAKER) 87 mg/dL 70-110 : TESTED AT [facility] [address] [place] [address] (test mobc=1526) [facility], [address]: Agency Manager/Lift Supervisor [id number] for KELL PHILLIPS [id number] 06:26:00 Test Item Value Reference Range Comments AMMONIA (BEAKER) (test tuhe=706) 93 mol/L 18-72 HEPATIC FUNCTION [id number] 05:50:00 Test Item Value Reference Range Comments TOTAL PROTEIN (BEAKER) (test ckot=762) 6.6 gm/dL 6.0-8.3 ALBUMIN (BEAKER) (test qcil=7086) 1.9 g/dL 3.5-5.0 BILIRUBIN TOTAL (BEAKER) (test aljc=813) 6.3 mg/dL 0.2-1.2 BILIRUBIN DIRECT (BEAKER) (test hjqi=263) 3.6 mg/dL 0.1-0.5 ALKALINE PHOSPHATASE (BEAKER) (test ffnv=236) 134 U/L 40-150 AST (SGOT) (BEAKER) (test ibkc=274) 41 U/L 5-34 ALT (SGPT) (BEAKER) (test cdef=524) 17 U/L 6-55 Specimen moderately [id number] 05:49:00 Test Item Value Reference Range Comments MAGNESIUM (BEAKER) (test gayh=069) 1.4 mg/dL 1.6-2.6 CBC W/PLT COUNT & AUTO [id number] 05:38:00 Test Item Value Reference Range Comments WHITE BLOOD CELL COUNT (BEAKER) (test rwkj=527) 2.9 K/ L 3.5-10.5 RED BLOOD CELL COUNT (BEAKER) (test brjd=138) 2.17 M/ L 4.63-6.08 HEMOGLOBIN (BEAKER) (test uewi=143) 7.8 GM/DL 13.7-17.5 HEMATOCRIT (BEAKER) (test rgwc=038) 23.9 % 40.1-51.0 MEAN CORPUSCULAR VOLUME (BEAKER) (test inqg=364) 110.1 fL 79.0-92.2 MEAN CORPUSCULAR HEMOGLOBIN (BEAKER) (test 35.9 pg 25.7-32.2 powk=588) MEAN CORPUSCULAR HEMOGLOBIN CONC (BEAKER) (test 32.6 GM/DL 32.3-36.5 lmzq=330) RED CELL DISTRIBUTION WIDTH (BEAKER) (test 20.0 % 11.6-14.4 twrq=633) PLATELET COUNT (BEAKER) (test cfce=597) 54 K/CU MM 150-450 MEAN PLATELET VOLUME (BEAKER) (test prpc=486) 11.8 fL 9.4-12.4 NUCLEATED RED BLOOD CELLS (BEAKER) (test 0 /100 WBC 0-0 qipc=210) NEUTROPHILS RELATIVE PERCENT (BEAKER) (test 59 % jbwy=104) LYMPHOCYTES RELATIVE PERCENT (BEAKER) (test 21 % bngi=413) MONOCYTES RELATIVE PERCENT (BEAKER) (test 12 % xrqg=690) EOSINOPHILS RELATIVE PERCENT (BEAKER) (test 6 % jcgq=526) BASOPHILS RELATIVE PERCENT (BEAKER) (test 1 % gbli=710) NEUTROPHILS ABSOLUTE COUNT (BEAKER) (test 1.74 K/ L 1.78-5.38 knnb=237) LYMPHOCYTES ABSOLUTE COUNT (BEAKER) (test 0.63 K/ L 1.32-3.57 ldkc=196) MONOCYTES ABSOLUTE COUNT (BEAKER) (test cqkh=909) 0.35 K/ L 0.30-0.82 EOSINOPHILS ABSOLUTE COUNT (BEAKER) (test 0.18 K/ L 0.04-0.54 bref=711) BASOPHILS ABSOLUTE COUNT (BEAKER) (test ezwo=042) 0.02 K/ L 0.01-0.08 IMMATURE GRANULOCYTES-RELATIVE PERCENT (BEAKER) 1 % 0-1 (test rqiw=2923) PROTHROMBIN [id number] 05:08:00 Test Item Value Reference Range Comments PROTIME (BEAKER) (test dfvj=443) 27.4 seconds 11.9-14.2 INR (BEAKER) (test uvnr=185) 2.7 <=5.9 Effective 10/09/2018: PT Reference Range ChangeNew: 11.9-14.2 Previous: 11.7- 14.7RECOMMENDED COUMADIN/WARFARIN INR THERAPY RANGESSTANDARD DOSE: 2.0-3.0 Includes: PROPHYLAXIS for venous thrombosis, systemic embolization; TREATMENT for venous thrombosis and/or pulmonary embolus.HIGH RISK: Target INR is2.5-3.5 for patients wiht mechanical heart valves.POCT-GLUCOSE [id number] 18:31:00 Test Item Value Reference Range Comments POC-GLUCOSE METER (BEAKER) 83 mg/dL 70-110 : TESTED AT [address] (test lkvk=0628) [facility], [address]: Agency Manager/Lift Supervisor [id number] for BROWN, JONATHAN POCT-GLUCOSE [id number] 18:30:00 Test Item Value Reference Range Comments POC-GLUCOSE METER (BEAKER) 151 mg/dL 70-110 : TESTED AT [address] (test aqid=8750) [facility], [address]: Agency Manager/Lift Supervisor [phone] for BROWN, JONATHAN POCT-GLUCOSE [id number] 18:29:00 Test Item Value Reference Range Comments POC-GLUCOSE METER (BEAKER) 129 mg/dL 70-110 : TESTED AT [address] (test vlpk=9029) [facility], [address]: Agency Manager/Lift Supervisor [id number] for BROWN, JONATHAN BASIC METABOLIC [id number] 06:05:00 Test Item Value Reference Range Comments SODIUM (BEAKER) (test 137 meq/L 136-145 gohg=858) POTASSIUM (BEAKER) (test 3.3 meq/L 3.5-5.1 ahop=620) CHLORIDE (BEAKER) (test 111 meq/L 98-107 pbww=007) CO2 (BEAKER) (test 24 meq/L 22-29 qwyq=808) BLOOD UREA NITROGEN 4 mg/dL 7-21 (BEAKER) (test uvxk=045) CREATININE (BEAKER) (test 0.80 mg/dL 0.57-1.25 yguw=723) GLUCOSE RANDOM (BEAKER) 91 mg/dL 70-105 (test rjhs=411) CALCIUM (BEAKER) (test 8.5 mg/dL 8.4-10.2 dqwo=135) EGFR (BEAKER) (test 102 mL/min/1.73 sq m ESTIMATED GFR IS NOT alkl=2072) ACCURATE CREATININE CLEARANCE IN PREDICTING GLOMERULAR FILTRATION RATE. ESTIMATED GFR IS NOT APPLICABLE FOR DIALYSIS PATIENTS. Specimen moderately ictericHEPATIC FUNCTION [id number] 06:05:00 Test Item Value Reference Range Comments TOTAL PROTEIN (BEAKER) (test jcjd=999) 7.2 gm/dL 6.0-8.3 ALBUMIN (BEAKER) (test izfb=4105) 2.1 g/dL 3.5-5.0 BILIRUBIN TOTAL (BEAKER) (test aguj=246) 7.3 mg/dL 0.2-1.2 BILIRUBIN DIRECT (BEAKER) (test ybwt=079) 4.0 mg/dL 0.1-0.5 ALKALINE PHOSPHATASE (BEAKER) (test aons=794) 144 U/L 40-150 AST (SGOT) (BEAKER) (test dxid=144) 44 U/L 5-34 ALT (SGPT) (BEAKER) (test vvfl=543) 21 U/L 6-55 Specimen moderately ictericPROTHROMBIN [id number] 05:13:00 Test Item Value Reference Range Comments PROTIME (BEAKER) (test brvg=960) 29.0 seconds 11.9-14.2 INR (BEAKER) (test jfkj=460) 2.9 <=5.9 Effective 10/09/2018: PT Reference Range ChangeNew: 11.9-14.2 Previous: 11.7- 14.7RECOMMENDED COUMADIN/WARFARIN INR THERAPY RANGESSTANDARD DOSE: 2.0-3.0 Includes: PROPHYLAXIS for venous thrombosis, systemic embolization; TREATMENT for venous thrombosis and/or pulmonary embolus.HIGH RISK: Target INR is2.5-3.5 for patients wiht mechanical heart valves.[id number] 05:09:00 Test Item Value Reference Range Comments AMMONIA (BEAKER) (test yuty=579) 70 mol/L 18-72 CBC W/PLT COUNT & AUTO [id number] 05:02:00 Test Item Value Reference Range Comments WHITE BLOOD CELL COUNT (BEAKER) (test btxp=369) 3.5 K/ L 3.5-10.5 RED BLOOD CELL COUNT (BEAKER) (test cglu=220) 2.17 M/ L 4.63-6.08 HEMOGLOBIN (BEAKER) (test hxxc=038) 7.8 GM/DL 13.7-17.5 HEMATOCRIT (BEAKER) (test ajji=727) 24.3 % 40.1-51.0 MEAN CORPUSCULAR VOLUME (BEAKER) (test hsdz=882) 112.0 fL 79.0-92.2 MEAN CORPUSCULAR HEMOGLOBIN (BEAKER) (test 35.9 pg 25.7-32.2 epef=586) MEAN CORPUSCULAR HEMOGLOBIN CONC (BEAKER) (test 32.1 GM/DL 32.3-36.5 hxou=204) RED CELL DISTRIBUTION WIDTH (BEAKER) (test 20.1 % 11.6-14.4 gizk=663) PLATELET COUNT (BEAKER) (test gvfu=167) 59 K/CU MM 150-450 MEAN PLATELET VOLUME (BEAKER) (test mdpu=115) 10.6 fL 9.4-12.4 NUCLEATED RED BLOOD CELLS (BEAKER) (test 0 /100 WBC 0-0 ckot=270) NEUTROPHILS RELATIVE PERCENT (BEAKER) (test 61 % pvos=881) LYMPHOCYTES RELATIVE PERCENT (BEAKER) (test 22 % lfvw=497) MONOCYTES RELATIVE PERCENT (BEAKER) (test 9 % psvz=851) EOSINOPHILS RELATIVE PERCENT (BEAKER) (test 7 % bjer=473) BASOPHILS RELATIVE PERCENT (BEAKER) (test 1 % msun=170) NEUTROPHILS ABSOLUTE COUNT (BEAKER) (test 2.15 K/ L 1.78-5.38 begg=643) LYMPHOCYTES ABSOLUTE COUNT (BEAKER) (test 0.77 K/ L 1.32-3.57 nijj=451) MONOCYTES ABSOLUTE COUNT (BEAKER) (test pclp=449) 0.30 K/ L 0.30-0.82 EOSINOPHILS ABSOLUTE COUNT (BEAKER) (test 0.24 K/ L 0.04-0.54 eyqk=675) BASOPHILS ABSOLUTE COUNT (BEAKER) (test mjsl=796) 0.02 K/ L 0.01-0.08 IMMATURE GRANULOCYTES-RELATIVE PERCENT (BEAKER) 1 % 0-1 (test gyog=8292) POCT-GLUCOSE [id number] 21:25:00 Test Item Value Reference Range Comments POC-GLUCOSE METER (BEAKER) 95 mg/dL 70-110 : TESTED AT [address] (test rjpp=1653) [facility], [address]: Agency Manager/Lift Supervisor [id number] for Selina Connor POCT-GLUCOSE [id number] 12:47:00 Test Item Value Reference Range Comments POC-GLUCOSE METER (BEAKER) 139 mg/dL 70-110 : TESTED AT [address] (test zkfc=0578) [facility], [address]: Agency Manager/Lift Supervisor [id number] for JONATHAN PENA POCT-GLUCOSE [id number] 08:02:00 Test Item Value Reference Range Comments POC-GLUCOSE METER (BEAKER) 126 mg/dL 70-110 : TESTED AT [address] (test iqmq=7631) [facility], [address]: Agency Manager/Lift Supervisor [id number] for JONATHAN PENA [id number] 07:01:00 Test Item Value Reference Range Comments AMMONIA (BEAKER) (test whmd=446) 72 mol/L 18-72 [id number] 06:39:00 Test Item Value Reference Range Comments PHOSPHORUS (BEAKER) (test lnzj=968) 2.8 mg/dL 2.3-4.7 [id number] 06:39:00 Test Item Value Reference Range Comments MAGNESIUM (BEAKER) (test brrp=491) 1.3 mg/dL 1.6-2.6 BASIC METABOLIC [id number] 06:39:00 Test Item Value Reference Range Comments SODIUM (BEAKER) (test 136 meq/L 136-145 knqp=167) POTASSIUM (BEAKER) (test 3.4 meq/L 3.5-5.1 iyin=335) CHLORIDE (BEAKER) (test 112 meq/L 98-107 bcxq=466) CO2 (BEAKER) (test 22 meq/L 22-29 ovav=797) BLOOD UREA NITROGEN 4 mg/dL 7-21 (BEAKER) (test mxrs=438) CREATININE (BEAKER) (test 0.77 mg/dL 0.57-1.25 ibol=901) GLUCOSE RANDOM (BEAKER) 82 mg/dL 70-105 (test syev=778) CALCIUM (BEAKER) (test 8.4 mg/dL 8.4-10.2 epzo=978) EGFR (BEAKER) (test 106 mL/min/1.73 sq m ESTIMATED GFR IS NOT nftk=0163) ACCURATE CREATININE CLEARANCE IN PREDICTING GLOMERULAR FILTRATION RATE. ESTIMATED GFR IS NOT APPLICABLE FOR DIALYSIS PATIENTS. Specimen moderately ictericHEPATIC FUNCTION [id number] 06:39:00 Test Item Value Reference Range Comments TOTAL PROTEIN (BEAKER) (test hfee=276) 6.7 gm/dL 6.0-8.3 ALBUMIN (BEAKER) (test tyvi=2821) 2.0 g/dL 3.5-5.0 BILIRUBIN TOTAL (BEAKER) (test bycz=567) 6.5 mg/dL 0.2-1.2 BILIRUBIN DIRECT (BEAKER) (test qrnf=045) 3.9 mg/dL 0.1-0.5 ALKALINE PHOSPHATASE (BEAKER) (test qzmu=401) 144 U/L 40-150 AST (SGOT) (BEAKER) (test fkqa=369) 42 U/L 5-34 ALT (SGPT) (BEAKER) (test gbdd=209) 18 U/L 6-55 Specimen moderately ictericCBC W/PLT COUNT & AUTO [id number] 06: 03:00 Test Item Value Reference Range Comments WHITE BLOOD CELL COUNT (BEAKER) (test shbh=623) 2.9 K/ L 3.5-10.5 RED BLOOD CELL COUNT (BEAKER) (test nvry=701) 2.07 M/ L 4.63-6.08 HEMOGLOBIN (BEAKER) (test lfmr=050) 7.5 GM/DL 13.7-17.5 HEMATOCRIT (BEAKER) (test vgld=452) 24.0 % 40.1-51.0 MEAN CORPUSCULAR VOLUME (BEAKER) (test edsj=373) 115.9 fL 79.0-92.2 MEAN CORPUSCULAR HEMOGLOBIN (BEAKER) (test 36.2 pg 25.7-32.2 qusc=827) MEAN CORPUSCULAR HEMOGLOBIN CONC (BEAKER) (test 31.3 GM/DL 32.3-36.5 knsy=895) RED CELL DISTRIBUTION WIDTH (BEAKER) (test 20.7 % 11.6-14.4 hpmh=898) PLATELET COUNT (BEAKER) (test axma=580) 45 K/CU MM 150-450 MEAN PLATELET VOLUME (BEAKER) (test qnuv=214) 11.2 fL 9.4-12.4 NUCLEATED RED BLOOD CELLS (BEAKER) (test 0 /100 WBC 0-0 keqx=219) NEUTROPHILS RELATIVE PERCENT (BEAKER) (test 62 % ucsh=422) LYMPHOCYTES RELATIVE PERCENT (BEAKER) (test 22 % ubed=626) MONOCYTES RELATIVE PERCENT (BEAKER) (test 8 % lele=518) EOSINOPHILS RELATIVE PERCENT (BEAKER) (test 6 % rhxa=041) BASOPHILS RELATIVE PERCENT (BEAKER) (test 1 % gtal=731) NEUTROPHILS ABSOLUTE COUNT (BEAKER) (test 1.81 K/ L 1.78-5.38 wskl=032) LYMPHOCYTES ABSOLUTE COUNT (BEAKER) (test 0.65 K/ L 1.32-3.57 nkdg=897) MONOCYTES ABSOLUTE COUNT (BEAKER) (test qrmn=657) 0.24 K/ L 0.30-0.82 EOSINOPHILS ABSOLUTE COUNT (BEAKER) (test 0.16 K/ L 0.04-0.54 yvcc=092) BASOPHILS ABSOLUTE COUNT (BEAKER) (test zvap=136) 0.02 K/ L 0.01-0.08 IMMATURE GRANULOCYTES-RELATIVE PERCENT (BEAKER) 1 % 0-1 (test zqfe=7606) PROTHROMBIN [id number] 06:03:00 Test Item Value Reference Range Comments PROTIME (BEAKER) (test lcxd=827) 29.3 seconds 11.9-14.2 INR (BEAKER) (test eesv=842) 3.0 <=5.9 Effective 10/09/2018: PT Reference Range ChangeNew: 11.9-14.2 Previous: 11.7- 14.7RECOMMENDED COUMADIN/WARFARIN INR THERAPY RANGESSTANDARD DOSE: 2.0-3.0 Includes: PROPHYLAXIS for venous thrombosis, systemic embolization; TREATMENT for venous thrombosis and/or pulmonary embolus.HIGH RISK: Target INR is2.5-3.5 for patients wiht mechanical heart valves.POCT-GLUCOSE [id number] 22:09:00 Test Item Value Reference Range Comments POC-GLUCOSE METER (BEAKER) 114 mg/dL 70-110 : TESTED AT [address] (test ofsn=1420) [facility], [id number]: Agency Manager/Lift Supervisor [id number] for DEDRA MTOT POCT-GLUCOSE [id number] 17:55:00 Test Item Value Reference Range Comments POC-GLUCOSE METER (BEAKER) 98 mg/dL 70-110 : TESTED AT [address] (test fpmd=3447) [facility], [id number]: Agency Manager/Lift Supervisor [id number] for Pranay Jude POCT-GLUCOSE [id number] 13:15:00 Test Item Value Reference Range Comments POC-GLUCOSE METER (BEAKER) 126 mg/dL 70-110 : TESTED AT [address] (test nuva=5890) [facility], [address]: Agency Manager/Lift Supervisor [id number] for Jude Pires HEPATIC FUNCTION [id number] 06:55:00 Test Item Value Reference Range Comments TOTAL PROTEIN (BEAKER) (test awrd=700) 6.6 gm/dL 6.0-8.3 ALBUMIN (BEAKER) (test dxop=0604) 1.9 g/dL 3.5-5.0 BILIRUBIN TOTAL (BEAKER) (test ckbk=800) 6.5 mg/dL 0.2-1.2 BILIRUBIN DIRECT (BEAKER) (test klwt=913) 4.0 mg/dL 0.1-0.5 ALKALINE PHOSPHATASE (BEAKER) (test bioz=739) 143 U/L 40-150 AST (SGOT) (BEAKER) (test sube=033) 37 U/L 5-34 ALT (SGPT) (BEAKER) (test ajyj=469) 18 U/L 6-55 Specimen moderately ictericBASIC METABOLIC [id number] 06:52:00 Test Item Value Reference Range Comments SODIUM (BEAKER) (test 134 meq/L 136-145 rjvt=563) POTASSIUM (BEAKER) (test 3.3 meq/L 3.5-5.1 hpyd=105) CHLORIDE (BEAKER) (test 112 meq/L 98-107 rubl=875) CO2 (BEAKER) (test 18 meq/L 22-29 xgms=881) BLOOD UREA NITROGEN 4 mg/dL 7-21 (BEAKER) (test murk=408) CREATININE (BEAKER) (test 0.82 mg/dL 0.57-1.25 bygy=399) GLUCOSE RANDOM (BEAKER) 122 mg/dL 70-105 (test rrdp=854) CALCIUM (BEAKER) (test 8.2 mg/dL 8.4-10.2 nzba=820) EGFR (BEAKER) (test 99 mL/min/1.73 sq m ESTIMATED GFR IS NOT fskb=2182) ACCURATE CREATININE CLEARANCE IN PREDICTING GLOMERULAR FILTRATION RATE. ESTIMATED GFR IS NOT APPLICABLE FOR DIALYSIS PATIENTS. Specimen moderately ictericCBC W/PLT COUNT & AUTO [id number] 05: 53:00 Test Item Value Reference Range Comments WHITE BLOOD CELL COUNT (BEAKER) (test otvb=230) 3.2 K/ L 3.5-10.5 RED BLOOD CELL COUNT (BEAKER) (test ulep=737) 2.07 M/ L 4.63-6.08 HEMOGLOBIN (BEAKER) (test ehne=114) 7.5 GM/DL 13.7-17.5 HEMATOCRIT (BEAKER) (test iyvt=280) 23.8 % 40.1-51.0 MEAN CORPUSCULAR VOLUME (BEAKER) (test hgzq=421) 115.0 fL 79.0-92.2 MEAN CORPUSCULAR HEMOGLOBIN (BEAKER) (test 36.2 pg 25.7-32.2 yppd=745) MEAN CORPUSCULAR HEMOGLOBIN CONC (BEAKER) (test 31.5 GM/DL 32.3-36.5 unnq=365) RED CELL DISTRIBUTION WIDTH (BEAKER) (test 21.3 % 11.6-14.4 dtci=276) PLATELET COUNT (BEAKER) (test jhku=482) 50 K/CU MM 150-450 MEAN PLATELET VOLUME (BEAKER) (test dryv=704) 11.5 fL 9.4-12.4 NUCLEATED RED BLOOD CELLS (BEAKER) (test 0 /100 WBC 0-0 ryxb=559) NEUTROPHILS RELATIVE PERCENT (BEAKER) (test 60 % lmbi=212) LYMPHOCYTES RELATIVE PERCENT (BEAKER) (test 23 % twpu=680) MONOCYTES RELATIVE PERCENT (BEAKER) (test 10 % gwht=938) EOSINOPHILS RELATIVE PERCENT (BEAKER) (test 6 % hoby=561) BASOPHILS RELATIVE PERCENT (BEAKER) (test 1 % cubm=204) NEUTROPHILS ABSOLUTE COUNT (BEAKER) (test 1.94 K/ L 1.78-5.38 lglq=422) LYMPHOCYTES ABSOLUTE COUNT (BEAKER) (test 0.73 K/ L 1.32-3.57 ssna=406) MONOCYTES ABSOLUTE COUNT (BEAKER) (test slhn=219) 0.31 K/ L 0.30-0.82 EOSINOPHILS ABSOLUTE COUNT (BEAKER) (test 0.20 K/ L 0.04-0.54 txnb=688) BASOPHILS ABSOLUTE COUNT (BEAKER) (test dffc=386) 0.02 K/ L 0.01-0.08 IMMATURE GRANULOCYTES-RELATIVE PERCENT (BEAKER) 1 % 0-1 (test qlqd=7943) PROTHROMBIN [id number] 05:50:00 Test Item Value Reference Range Comments PROTIME (BEAKER) (test vlba=869) 28.5 seconds 11.9-14.2 INR (BEAKER) (test gpad=960) 2.9 <=5.9 Effective 10/09/2018: PT Reference Range ChangeNew: 11.9-14.2 Previous: 11.7- 14.7RECOMMENDED COUMADIN/WARFARIN INR THERAPY RANGESSTANDARD DOSE: 2.0-3.0 Includes: PROPHYLAXIS for venous thrombosis, systemic embolization; TREATMENT for venous thrombosis and/or pulmonary embolus.HIGH RISK: Target INR is2.5-3.5 for patients wiht mechanical heart valves.POCT-GLUCOSE [id number] 21:12:00 Test Item Value Reference Range Comments POC-GLUCOSE METER (BEAKER) 106 mg/dL 70-110 : [facility] [address] [facility] (test cxgv=4239) [place] [address]: Agency Manager/Lift Supervisor [phone] for DEDRA MOTT [facility] [id number] 05:53:00 Test Item Value Reference Range Comments TOTAL PROTEIN (BEAKER) (test ynxw=995) 6.7 gm/dL 6.0-8.3 ALBUMIN (BEAKER) (test wadc=1631) 2.0 g/dL 3.5-5.0 BILIRUBIN TOTAL (BEAKER) (test zeoc=073) 7.6 mg/dL 0.2-1.2 BILIRUBIN DIRECT (BEAKER) (test agng=741) 4.5 mg/dL 0.1-0.5 ALKALINE PHOSPHATASE (BEAKER) (test srni=785) 144 U/L 40-150 AST (SGOT) (BEAKER) (test iysk=101) 42 U/L 5-34 ALT (SGPT) (BEAKER) (test zxmo=061) 21 U/L 6-55 Specimen moderately ictericPROTHROMBIN [id number] 05:37:00 Test Item Value Reference Range Comments PROTIME (BEAKER) (test yfid=328) 28.5 seconds 11.9-14.2 INR (BEAKER) (test qubo=691) 2.9 <=5.9 Effective 10/09/2018: PT Reference Range ChangeNew: 11.9-14.2 Previous: 11.7- 14.7RECOMMENDED COUMADIN/WARFARIN INR THERAPY RANGESSTANDARD DOSE: 2.0-3.0 Includes: PROPHYLAXIS for venous thrombosis, systemic embolization; TREATMENT for venous thrombosis and/or pulmonary embolus.HIGH RISK: Target INR is2.5-3.5 for patients wiht mechanical heart valves.POCT-GLUCOSE [id number] 00:53:00 Test Item Value Reference Range Comments POC-GLUCOSE METER (BEAKER) 93 mg/dL 70-110 : TESTED AT [facility] [address] [facility] (test emkv=0377) [facility], [address]: Agency Manager/Lift Supervisor [phone] for SUJEY MURTAZA CT, ABDOMEN, [id number] 22:20:00FINAL REPORT ABDOMINAL CT DATED 03/12/2019 CLINICAL INFORMATION: Patient has cirrhosis. Screening for HCC TECHNIQUE: Axial images of the abdomen were obtained from diaphragm to the upper pelvis with and without intravenous contrast. This exam was performed according to our departmental dose-optimization program, which includes automated exposure control, adjustment of the mA and/or kV according to patient size and/or use of interactive reconstruction technique. COMMENT: There is small left pleural effusion with left lower lobe subsegmental atelectasis. Liver is cirrhotic in appearance with irregular margins. A 1.2 x 3.5 cm hypodense area is seen in the segment 7 of the liver. Spleen is enlarged measuring 13.1 x 5.9 x 13.3 cm. The splenic, spleen mesenteric, portal, and hepatic veins are patent. Main portal vein measures 1.6 cm. A TIPS stent is visualized. Gallbladder is contracted. No gallstone or biliary dilatation is noted. Pancreas and adrenals are unremarkable. Both kidneys are normal in size and functioning with prompt bilateral excretion. No hydronephrosis, solid or cystic mass is seen in either kidney. The small and large bowel are unremarkable. Appendix is not visualized. Atherosclerotic calcification is seen in the abdominal aorta. Trace amount of ascites is seen in the abdomen. IMPRESSION: 1. Left pleural effusion with left lower lobe subsegmental atelectasis.2. Cirrhosis with splenomegaly and portal hypertension with TIPS stent without suspicious hepatic mass.3. Nonspecific hypodense focus in the segment 7 of the liver may represent occluded right hepatic vein or intrahepatic focal biliary dilatation.4. Trace ascites. Signed: Calixto Dalton MDReport Verified Date/Time: 03/12/2019 22:20:09 Reading Location: [address] Consult Reading Room Electronically signed by: CALIXTO DALTON M.D. on 03/12 10:20 PMPOCT-GLUCOSE [id number] 18:27:00 Test Item Value Reference Range Comments POC-GLUCOSE METER (BEAKER) 117 mg/dL 70-110 : TESTED AT [facility] [address] [facility] (test ursu=2775) [facility], [address]: Agency Manager/Lift Supervisor [phone] for ZHANGRESHMA URINALYSIS W/ REFLEX URINE [id number] 18:09:00 Test Item Value Reference Range Comments COLOR (BEAKER) (test ffoa=452) Yellow CLARITY (BEAKER) (test dpmm=295) Clear SPECIFIC GRAVITY UA (BEAKER) (test rmqa=930) 1.029 1.001-1.035 PH UA (BEAKER) (test wnxn=023) 7.0 5.0-8.0 PROTEIN UA (BEAKER) (test ymkt=428) Negative Negative GLUCOSE UA (BEAKER) (test nlyn=299) Negative Negative KETONES UA (BEAKER) (test ikgf=782) Negative Negative BILIRUBIN UA (BEAKER) (test khov=966) Negative Negative BLOOD UA (BEAKER) (test nxse=101) Negative Negative NITRITE UA (BEAKER) (test iayk=415) Negative Negative LEUKOCYTE ESTERASE UA (BEAKER) (test lyad=561) Negative Negative UROBILINOGEN UA (BEAKER) (test lhgv=691) 0.2 mg/dL 0.2-1.0 RBC UA (BEAKER) (test ezyg=436) 1 /HPF WBC UA (BEAKER) (test musc=555) < /HPF SOURCE(BEAKER) (test terg=4805) [id number] 16:03:00 Test Item Value Reference Range Comments POTASSIUM (BEAKER) (test ouhy=552) 3.9 meq/L 3.5-5.1 Check Serum Potassium level 2 hours after oral potassium replacement completed or 30 min after intravenous potassium replacement.[id number] 16:03:00 Test Item Value Reference Range Comments MAGNESIUM (BEAKER) (test lhff=587) 1.8 mg/dL 1.6-2.6 Check Serum Potassium level 2 hours after oral potassium replacement completed or 30 min after intravenous potassium replacement.[id number] 11:43:00 Test Item Value Reference Range Comments POTASSIUM (BEAKER) (test dbcy=968) 2.6 meq/L 3.5-5.1 Check Serum Potassium level 2 hours after oral potassium replacement completed or 30 min after intravenous potassium replacement.[id number] 11:36:00 Test Item Value Reference Range Comments MAGNESIUM (BEAKER) (test adeg=279) 1.3 mg/dL 1.6-2.6 Check Serum Potassium level 2 hours after oral potassium replacement completed or 30 min after intravenous potassium replacement.POCT-GLUCOSE [id number] 11:15:00 Test Item Value Reference Range Comments POC-GLUCOSE METER (BEAKER) 140 mg/dL 70-110 : TESTED AT [facility] [address] [facility] (test ugjo=0564) [facility], [address]: Agency Manager/Lift Supervisor [phone] for BURKE BLACK HEMOGLOBIN AND [id number] 11:12:00 Test Item Value Reference Range Comments HEMOGLOBIN (BEAKER) (test wkwa=164) 7.2 GM/DL 13.7-17.5 HEMATOCRIT (BEAKER) (test qvni=599) 23.0 % 40.1-51.0 BASIC METABOLIC [id number] 08:31:00 Test Item Value Reference Range Comments SODIUM (BEAKER) (test 139 meq/L 136-145 vkaa=252) POTASSIUM (BEAKER) (test 3.5 meq/L 3.5-5.1 wart=997) CHLORIDE (BEAKER) (test 117 meq/L 98-107 arsl=976) CO2 (BEAKER) (test 19 meq/L 22-29 tsvv=924) BLOOD UREA NITROGEN 5 mg/dL 7-21 (BEAKER) (test pskl=353) CREATININE (BEAKER) (test 0.89 mg/dL 0.57-1.25 pcdi=129) GLUCOSE RANDOM (BEAKER) 103 mg/dL 70-105 (test xkpu=013) CALCIUM (BEAKER) (test 8.3 mg/dL 8.4-10.2 dgaz=978) EGFR (BEAKER) (test 90 mL/min/1.73 sq m ESTIMATED GFR IS NOT wwky=6971) ACCURATE CREATININE CLEARANCE IN PREDICTING GLOMERULAR FILTRATION RATE. ESTIMATED GFR IS NOT APPLICABLE FOR DIALYSIS PATIENTS. Specimen moderately [id number] 08:24:00 Test Item Value Reference Range Comments AMMONIA (BEAKER) (test yxcs=158) 62 mol/L 18-72 POCT-GLUCOSE [id number] 08:05:00 Test Item Value Reference Range Comments POC-GLUCOSE METER (BEAKER) 86 mg/dL 70-110 : TESTED AT [facility] [address] [facility] (test iqjd=9182) [facility], [address]: Agency Manager/Lift Supervisor [phone] for BURKE BLACK CBC W/PLT COUNT & AUTO [id number] 06:12:00 Test Item Value Reference Range Comments WHITE BLOOD CELL COUNT (BEAKER) (test wrzt=746) 3.3 K/ L 3.5-10.5 RED BLOOD CELL COUNT (BEAKER) (test ipmc=493) 2.16 M/ L 4.63-6.08 HEMOGLOBIN (BEAKER) (test kxgc=882) 7.7 GM/DL 13.7-17.5 HEMATOCRIT (BEAKER) (test wujv=214) 24.2 % 40.1-51.0 MEAN CORPUSCULAR VOLUME (BEAKER) (test gfbg=157) 112.0 fL 79.0-92.2 MEAN CORPUSCULAR HEMOGLOBIN (BEAKER) (test 35.6 pg 25.7-32.2 zvgh=290) MEAN CORPUSCULAR HEMOGLOBIN CONC (BEAKER) (test 31.8 GM/DL 32.3-36.5 hcvr=196) RED CELL DISTRIBUTION WIDTH (BEAKER) (test 22.0 % 11.6-14.4 mxpd=380) PLATELET COUNT (BEAKER) (test mdvd=384) 58 K/CU MM 150-450 MEAN PLATELET VOLUME (BEAKER) (test tzsg=220) 10.5 fL 9.4-12.4 NUCLEATED RED BLOOD CELLS (BEAKER) (test 0 /100 WBC 0-0 yayq=654) NEUTROPHILS RELATIVE PERCENT (BEAKER) (test 53 % lxop=509) LYMPHOCYTES RELATIVE PERCENT (BEAKER) (test 25 % nbyz=662) MONOCYTES RELATIVE PERCENT (BEAKER) (test 12 % nuil=321) EOSINOPHILS RELATIVE PERCENT (BEAKER) (test 9 % wgqb=343) BASOPHILS RELATIVE PERCENT (BEAKER) (test 1 % gknf=346) NEUTROPHILS ABSOLUTE COUNT (BEAKER) (test 1.73 K/ L 1.78-5.38 ippf=179) LYMPHOCYTES ABSOLUTE COUNT (BEAKER) (test 0.81 K/ L 1.32-3.57 hrgq=081) MONOCYTES ABSOLUTE COUNT (BEAKER) (test uivm=435) 0.38 K/ L 0.30-0.82 EOSINOPHILS ABSOLUTE COUNT (BEAKER) (test 0.30 K/ L 0.04-0.54 xkdr=176) BASOPHILS ABSOLUTE COUNT (BEAKER) (test ygef=065) 0.02 K/ L 0.01-0.08 IMMATURE GRANULOCYTES-RELATIVE PERCENT (BEAKER) 1 % 0-1 (test iqxw=2381) POCT-GLUCOSE [id number] 22:45:00 Test Item Value Reference Range Comments POC-GLUCOSE METER (BEAKER) 109 mg/dL 70-110 : TESTED AT [address] (test ddhu=7037) [facility], [address]: Agency Manager/Lift Supervisor [id number] for SAI KELLER [id number] 18:51:00 Test Item Value Reference Range Comments POTASSIUM (BEAKER) (test tqjb=792) 3.1 meq/L 3.5-5.1 Check Serum Potassium level 2 hours after oral potassium replacement completed or 30 min after intravenous potassium replacement.[id number] 18:51:00 Test Item Value Reference Range Comments MAGNESIUM (BEAKER) (test erzw=533) 1.9 mg/dL 1.6-2.6 Check Serum Potassium level 2 hours after oral potassium replacement completed or 30 min after intravenous potassium replacement.HEMOGLOBIN AND [id number] 18:29:00 Test Item Value Reference Range Comments HEMOGLOBIN (BEAKER) (test cctl=231) 7.6 GM/DL 13.7-17.5 HEMATOCRIT (BEAKER) (test actw=735) 23.5 % 40.1-51.0 POCT-GLUCOSE [id number] 17:26:00 Test Item Value Reference Range Comments POC-GLUCOSE METER (BEAKER) 98 mg/dL 70-110 : TESTED AT [address] (test vpdy=3745) [facility], [address]: Agency Manager/Lift Supervisor [phone] for BURKE BLACK OCCULT BLOOD, [id number] 14:23:00 Test Item Value Reference Range Comments FECAL OCCULT BLOOD (BEAKER) (test llgu=896) Positive Negative [id number] 12:26:00 Test Item Value Reference Range Comments AMMONIA (BEAKER) (test xxdg=569) 80 mol/L 18-72 POCT-GLUCOSE [id number] 12:22:00 Test Item Value Reference Range Comments POC-GLUCOSE METER (BEAKER) 138 mg/dL 70-110 : TESTED AT [address] (test ofyo=8471) [facility], [address]: Agency Manager/Lift Supervisor [id number] for ZHANG KATHLEENRENETTA [id number] 11:53:00 Test Item Value Reference Range Comments RPR SCREEN (BEAKER) (test eqtr=615) Nonreactive Nonreactive HEMOGLOBIN [id number] 11:39:00 Test Item Value Reference Range Comments HEMOGLOBIN A1C (BEAKER) (test hkir=665) 4.6 % 4.3-6.1 POCT-GLUCOSE [id number] 11:36:00 Test Item Value Reference Range Comments POC-GLUCOSE METER (BEAKER) 102 mg/dL 70-110 : TESTED AT [facility] [address] (test dlfi=6792) [facility], [address]: Agency Manager/Lift Supervisor [phone] for BURKE BLACK TROPONIN [id number] 09:50:00 Test Item Value Reference Range Comments TROPONIN I (BEAKER) (test ljsb=889) 0.01 ng/mL 0.00-0.03 Troponin I (TnI) levels must [...] failure, acidosis, acute neurological disease, and persistent tachyarrhythmia.[id number] 09:44:00 Test Item Value Reference Range Comments POTASSIUM (BEAKER) (test xhrn=150) 4.5 meq/L 3.5-5.1 Check Serum Potassium level 2 hours after oral potassium replacement completed or 30 min after intravenous potassium replacement.[id number] 09:44:00 Test Item Value Reference Range Comments MAGNESIUM (BEAKER) (test hcme=887) 1.7 mg/dL 1.6-2.6 Check Serum Potassium level 2 hours after oral potassium replacement completed or 30 min after intravenous potassium replacement.HEMOGLOBIN AND [id number] 09:26:00 Test Item Value Reference Range Comments HEMOGLOBIN (BEAKER) (test vrya=514) 7.3 GM/DL 13.7-17.5 HEMATOCRIT (BEAKER) (test igab=454) 22.6 % 40.1-51.0 VITAMIN [id number] 08:46:00 Test Item Value Reference Range Comments VITAMIN B12 (BEAKER) (test gmfp=075) 1050 pg/mL 213-816 RAD, ABDOMEN/KUB, 1 VIEW [id number] 07:34:00Reason for exam:->abdominal painShould this be performed at the bedside?->YesFINAL REPORT RAD, ABDOMEN/KUB, 1 VIEW AP CLINICAL INDICATION: abdominal pain COMPARISON: None TECHNIQUE: Single, frontal radiograph of the abdomen. FINDINGS : The bowel gas pattern is nonspecific, but nonobstructive. Stent is noted projecting to the right of the lower thoracic and upper lumbar spine. No significant calcifications are present. The regional skeleton is intact. IMPRESSION: Nonspecific, nonobstructive bowel gas pattern. Signed: Rosaura Marie Verified Date/Time: 03/11/2019 07:34:15 Reading Location: [facility] Radiology Reading Room TROPONIN [id number] 06:59:00 Test Item Value Reference Range Comments TROPONIN I (BEAKER) (test ijdw=096) 0.01 ng/mL 0.00-0.03 Troponin I (TnI) levels must [...] failure, acidosis, acute neurological disease, and persistent tachyarrhythmia.POCT-GLUCOSE [id number] 06:05:00 Test Item Value Reference Range Comments POC-GLUCOSE METER (BEAKER) 91 mg/dL 70-110 : TESTED AT [address] (test lwct=4325) [facility], [address]: Agency Manager/Lift Supervisor [phone] for ANJU AVENDANO CT, BRAIN, WITHOUT [id number] 04:06:00FINAL REPORT CT Head without contrast CLINICAL HISTORY: Cerebral hemorrhage suspected TECHNIQUE: Contiguous axial images through the head without contrast. This exam was performed according to the departmental dose optimization program which includes automated exposure control, adjustment of the mA and/or kV according to the patient size, and/or use of an iterative reconstruction technique. COMPARISON: CT head dated 02/14/2019. FINDINGS:Rounded hyperdense 8 mm focus of hemorrhage within the right cerebellar hemisphere with surrounding lucency suggesting edema. There is mild mass effect on adjacent structures. No midline shift. No acute intracranial infarction. Ventricles are normal in size and configuration. Mild generalized parenchymal volume loss with commensurate enlargement of CSF spaces and ventricles. Basilar cisterns are patent. There are no extra-axial fluid collections. The skull is intact. The visualized paranasal sinuses are well-aerated. Intraorbital contents are unremarkable. IMPRESSION: Small parenchymal hematoma in the right cerebellar hemisphere with surrounding edema. Recommend follow-up examination with MRI brain with and without contrast after resolution to exclude underlying lesion. Team aware of significant findings of this examination the time of dictation per electronic medical record. Signed: Zaina Mckeon Verified Date/Time: 2018 04:06:20 Electronically signed by: ZAINA MCKEON MD on 2018 04:06 AMTSH/FREE T4 IF [id number] 03:48:00 Test Item Value Reference Range Comments THYROID STIMULATING HORMONE (BEAKER) (test 1.59 uIU/mL 0.35-4.94 cdum=132) [id number] 03:31:00 Test Item Value Reference Range Comments PHOSPHORUS (BEAKER) (test jaon=707) 3.5 mg/dL 2.3-4.7 Once on admission and Daily AM afterwardsOnce on admission and Daily AM [id number] 03:31:00 Test Item Value Reference Range Comments MAGNESIUM (BEAKER) (test iygc=263) 1.4 mg/dL 1.6-2.6 Once on admission and Daily AM afterwardsOnce on admission and Daily AM afterwardsBASIC METABOLIC [id number] 03:31:00 Test Item Value Reference Range Comments SODIUM (BEAKER) (test 139 meq/L 136-145 ezft=288) POTASSIUM (BEAKER) (test 2.7 meq/L 3.5-5.1 oepp=922) CHLORIDE (BEAKER) (test 117 meq/L 98-107 vehp=167) CO2 (BEAKER) (test 17 meq/L 22-29 aorq=958) BLOOD UREA NITROGEN 9 mg/dL 7-21 (BEAKER) (test ztha=252) CREATININE (BEAKER) (test 0.79 mg/dL 0.57-1.25 judh=348) GLUCOSE RANDOM (BEAKER) 87 mg/dL 70-105 (test khtj=397) CALCIUM (BEAKER) (test 8.2 mg/dL 8.4-10.2 fwdv=263) EGFR (BEAKER) (test 103 mL/min/1.73 sq m ESTIMATED GFR IS NOT iojx=0069) ACCURATE CREATININE CLEARANCE IN PREDICTING GLOMERULAR FILTRATION RATE. ESTIMATED GFR IS NOT APPLICABLE FOR DIALYSIS PATIENTS. Once on admission and Daily AM afterwardsOnce on admission and Daily AM afterwardsSpecimen moderately ictericTROPONIN [id number] 03:26:00 Test Item Value Reference Range Comments TROPONIN I (BEAKER) (test mnbv=859) 0.01 ng/mL 0.00-0.03 Troponin I (TnI) levels must [...] failure, acidosis, acute neurological disease, and persistent tachyarrhythmia.Once on admission and Daily AM afterwardsOnce on admission and Daily AM afterwardsCBC W/PLT COUNT & AUTO [id number] 03:10:00 Test Item Value Reference Range Comments WHITE BLOOD CELL COUNT (BEAKER) (test gkqd=460) 2.7 K/ L 3.5-10.5 RED BLOOD CELL COUNT (BEAKER) (test nzrk=984) 1.96 M/ L 4.63-6.08 HEMOGLOBIN (BEAKER) (test zkvz=659) 7.0 GM/DL 13.7-17.5 HEMATOCRIT (BEAKER) (test pmlh=748) 21.5 % 40.1-51.0 MEAN CORPUSCULAR VOLUME (BEAKER) (test zxew=685) 109.7 fL 79.0-92.2 MEAN CORPUSCULAR HEMOGLOBIN (BEAKER) (test 35.7 pg 25.7-32.2 snwd=605) MEAN CORPUSCULAR HEMOGLOBIN CONC (BEAKER) (test 32.6 GM/DL 32.3-36.5 jwja=460) RED CELL DISTRIBUTION WIDTH (BEAKER) (test 21.2 % 11.6-14.4 cxxa=575) PLATELET COUNT (BEAKER) (test tqzl=432) 53 K/CU MM 150-450 MEAN PLATELET VOLUME (BEAKER) (test rkhx=392) 10.8 fL 9.4-12.4 NUCLEATED RED BLOOD CELLS (BEAKER) (test 0 /100 WBC 0-0 hwnk=988) NEUTROPHILS RELATIVE PERCENT (BEAKER) (test 53 % vwbx=940) LYMPHOCYTES RELATIVE PERCENT (BEAKER) (test 25 % akcb=048) MONOCYTES RELATIVE PERCENT (BEAKER) (test 14 % tltg=531) EOSINOPHILS RELATIVE PERCENT (BEAKER) (test 7 % rmts=864) BASOPHILS RELATIVE PERCENT (BEAKER) (test 0 % aakt=559) NEUTROPHILS ABSOLUTE COUNT (BEAKER) (test 1.40 K/ L 1.78-5.38 nxfw=745) LYMPHOCYTES ABSOLUTE COUNT (BEAKER) (test 0.67 K/ L 1.32-3.57 odrh=183) MONOCYTES ABSOLUTE COUNT (BEAKER) (test qoip=928) 0.38 K/ L 0.30-0.82 EOSINOPHILS ABSOLUTE COUNT (BEAKER) (test 0.18 K/ L 0.04-0.54 iyvn=615) BASOPHILS ABSOLUTE COUNT (BEAKER) (test clyl=855) 0.01 K/ L 0.01-0.08 IMMATURE GRANULOCYTES-RELATIVE PERCENT (BEAKER) 1 % 0-1 (test kttj=3274) LIPID [id number] 02:14:00 Test Item Value Reference Range Comments TRIGLYCERIDES (BEAKER) (test oruc=380) 64 mg/dL CHOLESTEROL (BEAKER) (test tedu=556) 61 mg/dL HDL CHOLESTEROL (BEAKER) (test ehzi=417) 13 mg/dL LDL CHOLESTEROL CALCULATED (BEAKER) (test ceih=659) 35 mg/dL Triglyceride Reference Range: Low Risk <150 Borderline 150- 199 High Risk 200-499 Very High Risk >=500Cholesterol Reference Range: Low Risk <200 Borderline 200-239 High Risk > 240HDL Cholesterol Reference Range: Low Risk >=60 High Risk <40LDL Cholesterol Reference Range: Optimal <100 Near Optimal 100-129 Borderline 130-159 High 160-189 Very High >=190 Specimen [id number] 23:03:00 Test Item Value Reference Range Comments AMYLASE (BEAKER) (test avwr=302) 34 U/L 25-125 Specimen moderately [id number] 23:03:00 Test Item Value Reference Range Comments LIPASE (BEAKER) (test flmv=761) 44 U/L 8-78 Specimen moderately ictericCOMPREHENSIVE METABOLIC [id number] 22:30:00 Test Item Value Reference Range Comments TOTAL PROTEIN (BEAKER) 6.4 gm/dL 6.0-8.3 (test ujwd=487) ALBUMIN (BEAKER) (test 2.0 g/dL 3.5-5.0 snwv=8001) ALKALINE PHOSPHATASE 153 U/L 40-150 (BEAKER) (test olah=421) BILIRUBIN TOTAL (BEAKER) 8.0 mg/dL 0.2-1.2 (test rhwr=742) SODIUM (BEAKER) (test 141 meq/L 136-145 koiw=673) POTASSIUM (BEAKER) (test 2.4 meq/L 3.5-5.1 tdcs=115) CHLORIDE (BEAKER) (test 116 meq/L 98-107 dcvj=333) CO2 (BEAKER) (test 19 meq/L 22-29 khvg=793) BLOOD UREA NITROGEN 9 mg/dL 7-21 (BEAKER) (test pehi=355) CREATININE (BEAKER) (test 0.80 mg/dL 0.57-1.25 mwum=982) GLUCOSE RANDOM (BEAKER) 99 mg/dL 70-105 (test ebqj=799) CALCIUM (BEAKER) (test 8.4 mg/dL 8.4-10.2 zeyk=353) AST (SGOT) (BEAKER) (test 65 U/L 5-34 jipx=627) ALT (SGPT) (BEAKER) (test 29 U/L 6-55 lldm=901) EGFR (BEAKER) (test 102 mL/min/1.73 sq ESTIMATED GFR IS NOT ceij=3632) m ACCURATE CREATININE CLEARANCE IN PREDICTING GLOMERULAR FILTRATION RATE. ESTIMATED GFR IS NOT APPLICABLE FOR DIALYSIS PATIENTS. Specimen moderately ictericHEPATIC FUNCTION [id number] 22:29:00 Test Item Value Reference Range Comments TOTAL PROTEIN (BEAKER) (test mzof=099) 6.4 gm/dL 6.0-8.3 ALBUMIN (BEAKER) (test ycpc=5686) 2.0 g/dL 3.5-5.0 BILIRUBIN TOTAL (BEAKER) (test xfeg=326) 8.0 mg/dL 0.2-1.2 BILIRUBIN DIRECT (BEAKER) (test uqwl=499) 4.9 mg/dL 0.1-0.5 ALKALINE PHOSPHATASE (BEAKER) (test raux=631) 153 U/L 40-150 AST (SGOT) (BEAKER) (test mlyq=999) 65 U/L 5-34 ALT (SGPT) (BEAKER) (test fjjo=272) 29 U/L 6-55 Specimen moderately ictericCBC W/PLT COUNT & AUTO [id number] 22: 14:00 Test Item Value Reference Range Comments WHITE BLOOD CELL COUNT (BEAKER) (test iokc=069) 2.8 K/ L 3.5-10.5 RED BLOOD CELL COUNT (BEAKER) (test jphz=059) 1.79 M/ L 4.63-6.08 HEMOGLOBIN (BEAKER) (test ewkh=775) 6.6 GM/DL 13.7-17.5 HEMATOCRIT (BEAKER) (test gtba=235) 20.1 % 40.1-51.0 MEAN CORPUSCULAR VOLUME (BEAKER) (test shdn=187) 112.3 fL 79.0-92.2 MEAN CORPUSCULAR HEMOGLOBIN (BEAKER) (test 36.9 pg 25.7-32.2 ogje=867) MEAN CORPUSCULAR HEMOGLOBIN CONC (BEAKER) (test 32.8 GM/DL 32.3-36.5 nxkc=519) RED CELL DISTRIBUTION WIDTH (BEAKER) (test 18.5 % 11.6-14.4 eldw=533) PLATELET COUNT (BEAKER) (test jerk=837) 48 K/CU MM 150-450 MEAN PLATELET VOLUME (BEAKER) (test gzhx=687) 10.4 fL 9.4-12.4 NUCLEATED RED BLOOD CELLS (BEAKER) (test 0 /100 WBC 0-0 ghkv=594) NEUTROPHILS RELATIVE PERCENT (BEAKER) (test 48 % hirh=240) LYMPHOCYTES RELATIVE PERCENT (BEAKER) (test 28 % iuhe=047) MONOCYTES RELATIVE PERCENT (BEAKER) (test 14 % vebd=240) EOSINOPHILS RELATIVE PERCENT (BEAKER) (test 9 % zanh=568) BASOPHILS RELATIVE PERCENT (BEAKER) (test 0 % zjcq=119) NEUTROPHILS ABSOLUTE COUNT (BEAKER) (test 1.36 K/ L 1.78-5.38 eatw=258) LYMPHOCYTES ABSOLUTE COUNT (BEAKER) (test 0.80 K/ L 1.32-3.57 jvwn=278) MONOCYTES ABSOLUTE COUNT (BEAKER) (test dcdf=002) 0.41 K/ L 0.30-0.82 EOSINOPHILS ABSOLUTE COUNT (BEAKER) (test 0.24 K/ L 0.04-0.54 ekzv=097) BASOPHILS ABSOLUTE COUNT (BEAKER) (test eocx=365) 0.01 K/ L 0.01-0.08 IMMATURE GRANULOCYTES-RELATIVE PERCENT (BEAKER) 1 % 0-1 (test fmdm=1406) [id number] 22:07:00 Test Item Value Reference Range Comments PARTIAL THROMBOPLASTIN TIME (BEAKER) (test 49.7 seconds 22.5-36.0 jaqd=180) PROTHROMBIN TIME/[id number] 22:06:00 Test Item Value Reference Range Comments PROTIME (BEAKER) (test ghlt=787) 23.8 seconds 11.9-14.2 INR (BEAKER) (test ebqt=015) 2.3 <=5.9 Effective 10/09/2018: PT Reference Range ChangeNew: 11.9-14.2 Previous: 11.7- 14.7RECOMMENDED COUMADIN/WARFARIN INR THERAPY RANGESSTANDARD DOSE: 2.0-3.0 Includes: PROPHYLAXIS for venous thrombosis, systemic embolization; TREATMENT for venous thrombosis and/or pulmonary embolus.HIGH RISK: Target INR is2.5-3.5 for patients wiht mechanical heart valves.POCT-GLUCOSE [id number] 21:53:00 Test Item Value Reference Range Comments POC-GLUCOSE METER (BEAKER) 90 mg/dL 70-110 : TESTED AT [facility] [address] (test meyw=3758) [facility], [id number]: Agency Manager/Lift Supervisor OF=[id number] for BHASKAR CASTAÑEDA [id number] 00:08:00 Test Item Value Reference Range Comments AMMONIA (test code=AMM) 148 mcmol/L 11-32 Critical Value reported toFirst Name:ATILA Last Name:JOVANNI READ BACK AND VERIFIEDby P.LAB.YS, on 02/28/19, @ 0008. COMPREHENSIVE METABOLIC [id number] 23:33:00 Test Item Value Reference Range Comments SODIUM (test code=NA) 136 MMOL/L 136-143 POTASSIUM (test code=K) 3.3 MMOL/L 3.5-5.1 CHLORIDE (test code=CL) 112 MMOL/L 98-107 CARBON DIOXIDE (test 16 mmol/L 24-31 code=CO2) GLUCOSE (test code=GLU) 120 mg/dL 70-104 BLOOD UREA NITROGEN (test 5.4 MG/DL 7.0-21.0 code=BUN) GLOMERULAR FILTRATION >=60 max estimate >60 The estimated glomerular RATE (test code=GFR) filtration rate is computed usingpatient race, age (>18), sex, and serum creatinine. If anyof the needed data elements are missing the Laboratory cannot compute an estimation of the glomerular filtration rate. CREATININE (test 0.4 mg/dL 0.8-1.5 code=CREAT) TOTAL PROTEIN (test 6.8 g/dL 6.3-8.3 code=PROT) ALBUMIN (test code=ALB) 2.4 G/DL 3.5-5.0 CALCIUM (test code=CA) 9.1 mg/dL 8.8-10.2 BILIRUBIN TOTAL (test 7.0 mg/dL 0.2-1.0 code=BILT) SGOT/AST (test code=AST) 76 IU/L 10-34 SGPT/ALT (test code=ALT) 37 U/L 10-44 ALKALINE PHOSPHATASE 176 U/L 45-120 (test code=ALKP) [id number] 09:06:00 Test Item Value Reference Range Comments AMMONIA (test code=AMM) 100 mcmol/L 11-32 Critical Value reported toFirst Name:PHI Last Name:REMI READ BACK AND VERIFIEDby P.LAB.RS, on 02/27/19, @ 0906. BASIC METABOLIC [id number] 06:30:00 Test Item Value Reference Range Comments SODIUM (test code=NA) 139 MMOL/L 136-143 POTASSIUM (test code=K) 3.5 MMOL/L 3.5-5.1 CHLORIDE (test code=CL) 113 MMOL/L 98-107 CARBON DIOXIDE (test 17 mmol/L 24-31 code=CO2) GLUCOSE (test code=GLU) 96 mg/dL 70-104 BLOOD UREA NITROGEN (test 5.3 MG/DL 7.0-21.0 code=BUN) GLOMERULAR FILTRATION >=60 max estimate >60 The estimated glomerular RATE (test code=GFR) filtration rate is computed usingpatient race, age (>18), sex, and serum creatinine. If anyof the needed data elements are missing the Laboratory cannot compute an estimation of the glomerular filtration rate. CREATININE (test 0.6 mg/dL 0.8-1.5 code=CREAT) CALCIUM (test code=CA) 9.0 mg/dL 8.8-10.2 CBC W/AUTO [id number] 10:20:00 Test Item Value Reference Range Comments WHITE BLOOD CELL (test 3.8 x10 3/uL 4.8-10.8 code=WBC) RED BLOOD CELL (test 1.99 x10 6/uL 4.70-6.10 code=RBC) HEMOGLOBIN (test code=HGB) 7.3 g/dL 14.5-20 HEMATOCRIT (test code=HCT) 22.9 % 42.0-52.0 MEAN CELL VOLUME (test 115.1 fL 80.0-94.0 code=MCV) MEAN CELL HGB (test 36.7 pg 27-31 code=MCH) MEAN CELL HGB CONCENTRATION 31.9 G/DL 33-36.5 (test code=MCHC) RED CELL DISTRIBUTION WIDTH Test not performed % 12.9-16.9 THE ANALYZER WAS (test code=RDW) UNABLE TO PROVIDE A RESULT FOR THISANALYTE. PLATELET COUNT (test 52 150-440 code=PLT) MEAN PLATELET VOLUME (test 11.2 fL 8.9-12.4 code=MPV) NEUTROPHIL % (test 55.8 % 42.2-75.2 code=NT%) LYMPHOCYTE % (test 23.8 % 20.5-51.1 code=LY%) MONOCYTE % (test code=MO%) 14.6 % 1.7-9.3 EOSINOPHIL % (test 5.0 % 0.0-7.0 code=EO%) BASOPHIL % (test code=BA%) 0.5 % 0-2.5 NEUTROPHIL # (test 2.14 x10 3/uL 1.80-7.70 code=NT#) LYMPHOCYTE # (test 0.91 x10 3/uL 1.00-4.80 code=LY#) MONOCYTE # (test code=MO#) 0.56 x10 3/uL 0.00-0.80 EOSINOPHIL # (test 0.19 x10 3/uL 0.00-0.45 code=EO#) BASOPHIL # (test code=BA#) 0.02 x10 3/uL 0.0-0.20 ANISOCYTOSIS (test 1+ NONE SEEN code=ANISO) MACROCYTOSIS (test 1+ NONE SEEN code=MACR) ACANTHOCYTES (test 1+ NONE SEEN code=ACAN) OVALOCYTES (test code=OVAL) 1+ NONE SEEN [id number] 07:15:00 Test Item Value Reference Range Comments AMMONIA (test code=AMM) 85 mcmol/L 11-32 Critical Value reported toFirst Name:LISA Last Name:ALBERT READ BACK AND VERIFIEDby P.LAB.RS, on 02/26/19, @ 13. COMPREHENSIVE METABOLIC [id number] 06:48:00 Test Item Value Reference Range Comments SODIUM (test code=NA) 140 MMOL/L 136-143 POTASSIUM (test code=K) 3.2 MMOL/L 3.5-5.1 CHLORIDE (test code=CL) 113 MMOL/L 98-107 CARBON DIOXIDE (test 16 mmol/L 24-31 code=CO2) GLUCOSE (test code=GLU) 102 mg/dL 70-104 BLOOD UREA NITROGEN (test 7.0 MG/DL 7.0-21.0 code=BUN) GLOMERULAR FILTRATION >=60 max estimate >60 The estimated glomerular RATE (test code=GFR) filtration rate is computed usingpatient race, age (>18), sex, and serum creatinine. If anyof the needed data elements are missing the Laboratory cannot compute an estimation of the glomerular filtration rate. CREATININE (test 0.7 mg/dL 0.8-1.5 code=CREAT) TOTAL PROTEIN (test 6.4 g/dL 6.3-8.3 code=PROT) ALBUMIN (test code=ALB) 2.4 G/DL 3.5-5.0 CALCIUM (test code=CA) 9.5 mg/dL 8.8-10.2 BILIRUBIN TOTAL (test 7.4 mg/dL 0.2-1.0 code=BILT) SGOT/AST (test code=AST) 86 IU/L 10-34 SGPT/ALT (test code=ALT) 38 U/L 10-44 ALKALINE PHOSPHATASE 151 U/L 45-120 (test code=ALKP) PROTHROMBIN [id number] 06:30:00 Test Item Value Reference Range Comments PROTHROMBIN TIME PATIENT 36.2 SECONDS 10.3-12.9 (test code=PTP) INTERNATIONAL NORMAL 3.05 INR UNIT 0.9-1.11 The INR is useful only for RATIO (test code=INR) monitoring anticoagulant therapy.It may be unreliable in the initial phase of antigoagulationand in unstable patients. Indication for Anticoagulation Recommended INR 1. Prevention of venous thomboembolism 2.0-3.0in high-risk patients; treatment of venousthrombosis and pulmonary embolism aftera course of heparin; prevention of systemicembolism in a variety of conditions, including atrial fibrillation and prothetic tissue heart valves, 2. Prosthetic mechanical heart valves; 2.5-3.5recurrent systemic embolism. CBC W/AUTO [id number] 06:26:00 Test Item Value Reference Range Comments WHITE BLOOD CELL (test 3.8 x10 3/uL 4.8-10.8 code=WBC) RED BLOOD CELL (test 1.99 x10 6/uL 4.70-6.10 code=RBC) HEMOGLOBIN (test code=HGB) 7.3 g/dL 14.5-20 HEMATOCRIT (test code=HCT) 22.9 % 42.0-52.0 MEAN CELL VOLUME (test 115.1 fL 80.0-94.0 code=MCV) MEAN CELL HGB (test 36.7 pg 27-31 code=MCH) MEAN CELL HGB CONCENTRATION 31.9 G/DL 33-36.5 (test code=MCHC) RED CELL DISTRIBUTION WIDTH Test not performed % 12.9-16.9 THE ANALYZER WAS (test code=RDW) UNABLE TO PROVIDE A RESULT FOR THISANALYTE. PLATELET COUNT (test 52 150-440 code=PLT) MEAN PLATELET VOLUME (test 11.2 fL 8.9-12.4 code=MPV) NEUTROPHIL % (test 55.8 % 42.2-75.2 code=NT%) LYMPHOCYTE % (test 23.8 % 20.5-51.1 code=LY%) MONOCYTE % (test code=MO%) 14.6 % 1.7-9.3 EOSINOPHIL % (test 5.0 % 0.0-7.0 code=EO%) BASOPHIL % (test code=BA%) 0.5 % 0-2.5 NEUTROPHIL # (test 2.14 x10 3/uL 1.80-7.70 code=NT#) LYMPHOCYTE # (test 0.91 x10 3/uL 1.00-4.80 code=LY#) MONOCYTE # (test code=MO#) 0.56 x10 3/uL 0.00-0.80 EOSINOPHIL # (test 0.19 x10 3/uL 0.00-0.45 code=EO#) BASOPHIL # (test code=BA#) 0.02 x10 3/uL 0.0-0.20 CBC W/AUTO [id number] 06:26:00 Test Item Value Reference Range Comments WHITE BLOOD CELL (test 3.8 x10 3/uL 4.8-10.8 code=WBC) RED BLOOD CELL (test 1.99 x10 6/uL 4.70-6.10 code=RBC) HEMOGLOBIN (test code=HGB) 7.3 g/dL 14.5-20 HEMATOCRIT (test code=HCT) 22.9 % 42.0-52.0 MEAN CELL VOLUME (test 115.1 fL 80.0-94.0 code=MCV) MEAN CELL HGB (test 36.7 pg 27-31 code=MCH) MEAN CELL HGB CONCENTRATION 31.9 G/DL 33-36.5 (test code=MCHC) RED CELL DISTRIBUTION WIDTH Test not performed % 12.9-16.9 THE ANALYZER WAS (test code=RDW) UNABLE TO PROVIDE A RESULT FOR THISANALYTE. PLATELET COUNT (test 52 150-440 code=PLT) MEAN PLATELET VOLUME (test 11.2 fL 8.9-12.4 code=MPV) NEUTROPHIL % (test 55.8 % 42.2-75.2 code=NT%) LYMPHOCYTE % (test 23.8 % 20.5-51.1 code=LY%) MONOCYTE % (test code=MO%) 14.6 % 1.7-9.3 EOSINOPHIL % (test 5.0 % 0.0-7.0 code=EO%) BASOPHIL % (test code=BA%) 0.5 % 0-2.5 NEUTROPHIL # (test 2.14 x10 3/uL 1.80-7.70 code=NT#) LYMPHOCYTE # (test 0.91 x10 3/uL 1.00-4.80 code=LY#) MONOCYTE # (test code=MO#) 0.56 x10 3/uL 0.00-0.80 EOSINOPHIL # (test 0.19 x10 3/uL 0.00-0.45 code=EO#) BASOPHIL # (test code=BA#) 0.02 x10 3/uL 0.0-0.20 - CT HEAD/BRAIN W/O [id number] 19:09:00Patient Name: ESTUARDO TAYLOR Unit No: [id number] EXAMS: CPT CODE : [id number] CT HEAD/BRAIN W/O CONT [id number] CT SCAN OF THE HEAD WITHOUT CONTRAST Dictation Location: N13 CLINICAL HISTORY: Altered mental status, hepatic encephalopathy. TECHNIQUE: Helical CT was performed from the skull base to the vertex without IV contrast using 5mm slice thicknesses. Exam was performed within 24 hours of the patient's arrival to the facility. Coronal and sagittal images were reconstructed. Exam performed without IV contrast has limited sensitivity for detection of soft tissue mass or inflammation. This exam was performed according to our departmental dose optimization program, which includes automated exposure control, adjustment of the mA and/ or KV according to patient size and/or use of iterativereconstruction technique. DLP 891 mGy*cm FINDINGS: The visualized sinuses are clear. The visualized bony structures are normal. There is no evidence of epidural, subdural, or intraparenchymal hematoma. There is no evidence of mass,mass effect, fluid collection, hemorrhage, or evolving infarction. IMPRESSION: Normal CT of the head without contrast. at 1909 Reported and signed by: SABAS GORDON M.D. CC: Eduardo Johnston MD Technologist: Nola Barragan CTDI: 55.70 DLP: 891 Trscr Dt/Tm: 02/25 (190) by:Gill Printed Date/Time: 02/25/2019 (1912) Name: ESTUARDO TAYLOR [facility] Phys: Eduardo Hoyos MD [address] : 1964 Age: 54 Sex: [place], [place] [address] Loc: JAMI 4 Exam Date: 02/25/2019 Status: ADM IN PH: FAX: PAGE 1 Signed ReportCBC W/AUTO [id number] 17:46:00 Test Item Value Reference Range Comments WHITE BLOOD CELL (test 5.5 x10 3/uL 4.8-10.8 code=WBC) RED BLOOD CELL (test 2.29 x10 6/uL 4.70-6.10 code=RBC) HEMOGLOBIN (test 8.5 g/dL 14.5-20 code=HGB) HEMATOCRIT (test 25.7 % 42.0-52.0 code=HCT) MEAN CELL VOLUME (test 112.2 fL 80.0-94.0 code=MCV) MEAN CELL HGB (test 37.1 pg 27-31 code=MCH) MEAN CELL HGB 33.1 G/DL 33-36.5 CONCENTRATION (test code=MCHC) RED CELL DISTRIBUTION Test not performed 12.9-16.9 NO RESULT WIDTH (test code=RDW) % PLATELET COUNT (test 57 150-440 NO CLOT IN SPECIMEN, NO code=PLT) PLATELET CLUMPING PRESENTPreviously reported result: Edited by: MACEY on 02/25/19:1744~~ Corrected Report ~~Reason (required):0 MEAN PLATELET VOLUME 11.6 fL 8.9-12.4 (test code=MPV) NEUTROPHIL % (test 59.1 % 42.2-75.2 code=NT%) LYMPHOCYTE % (test 20.4 % 20.5-51.1 code=LY%) MONOCYTE % (test 14.1 % 1.7-9.3 code=MO%) EOSINOPHIL % (test 5.2 % 0.0-7.0 code=EO%) BASOPHIL % (test 0.7 % 0-2.5 code=BA%) NEUTROPHIL # (test 3.27 x10 3/uL 1.80-7.70 code=NT#) LYMPHOCYTE # (test 1.13 x10 3/uL 1.00-4.80 code=LY#) MONOCYTE # (test 0.78 x10 3/uL 0.00-0.80 code=MO#) EOSINOPHIL # (test 0.29 x10 3/uL 0.00-0.45 code=EO#) BASOPHIL # (test 0.04 x10 3/uL 0.0-0.20 code=BA#) [id number] 17:37:00 Test Item Value Reference Range Comments AMMONIA (test code=AMM) 98 mcmol/L 11-32 Critical Value reported toFirst Name:EDUARDO Last Name:ABBI READ BACK AND VERIFIEDby PPorshaLABPorshaCAR1, on 02/25/19, @ 0415. COMPREHENSIVE METABOLIC [id number] 17:30:00 Test Item Value Reference Range Comments SODIUM (test code=NA) 137 MMOL/L 136-143 POTASSIUM (test code=K) 3.9 MMOL/L 3.5-5.1 CHLORIDE (test code=CL) 109 MMOL/L 98-107 CARBON DIOXIDE (test 14 mmol/L 24-31 code=CO2) GLUCOSE (test code=GLU) 99 mg/dL 70-104 BLOOD UREA NITROGEN (test 8.5 MG/DL 7.0-21.0 code=BUN) GLOMERULAR FILTRATION >=60 max estimate >60 The estimated glomerular RATE (test code=GFR) filtration rate is computed usingpatient race, age (>18), sex, and serum creatinine. If anyof the needed data elements are missing the Laboratory cannot compute an estimation of the glomerular filtration rate. CREATININE (test 0.7 mg/dL 0.8-1.5 code=CREAT) TOTAL PROTEIN (test 7.3 g/dL 6.3-8.3 code=PROT) ALBUMIN (test code=ALB) 2.7 G/DL 3.5-5.0 CALCIUM (test code=CA) 9.8 mg/dL 8.8-10.2 BILIRUBIN TOTAL (test 8.8 mg/dL 0.2-1.0 code=BILT) SGOT/AST (test code=AST) 101 IU/L 10-34 SGPT/ALT (test code=ALT) 42 U/L 10-44 ALKALINE PHOSPHATASE 154 U/L 45-120 (test code=ALKP) PROTHROMBIN [id number] 17:26:00 Test Item Value Reference Range Comments PROTHROMBIN TIME PATIENT 35.1 SECONDS 10.3-12.9 (test code=PTP) INTERNATIONAL NORMAL 2.96 INR UNIT 0.9-1.11 The INR is useful only for RATIO (test code=INR) monitoring anticoagulant therapy.It may be unreliable in the initial phase of antigoagulationand in unstable patients. Indication for Anticoagulation Recommended INR 1. Prevention of venous thomboembolism 2.0-3.0in high-risk patients; treatment of venousthrombosis and pulmonary embolism aftera course of heparin; prevention of systemicembolism in a variety of conditions, including atrial fibrillation and prothetic tissue heart valves, 2. Prosthetic mechanical heart valves; 2.5-3.5recurrent systemic embolism. THROMBOPLASTIN TIME [id number] 17:26:00 Test Item Value Reference Range Comments THROMBOPLASTIN TIME PARTIAL 55.3 SECONDS 26.0-35.9 INTERPRETATIVE (test code=PTT) DATA:Therapeutic range: Unfractionated heparin:47 - 71 seconds Argatroban:1.5 to 3 times the baseline PTT PROTHROMBIN [id number] 17:23:00 Test Item Value Reference Range Comments PROTHROMBIN TIME PATIENT 35.1 SECONDS 10.3-12.9 (test code=PTP) INTERNATIONAL NORMAL 2.96 INR UNIT 0.9-1.11 The INR is useful only for RATIO (test code=INR) monitoring anticoagulant therapy.It may be unreliable in the initial phase of antigoagulationand in unstable patients. Indication for Anticoagulation Recommended INR 1. Prevention of venous thomboembolism 2.0-3.0in high-risk patients; treatment of venousthrombosis and pulmonary embolism aftera course of heparin; prevention of systemicembolism in a variety of conditions, including atrial fibrillation and prothetic tissue heart valves, 2. Prosthetic mechanical heart valves; 2.5-3.5recurrent systemic embolism. THROMBOPLASTIN TIME [id number] 17:23:00 Test Item Value Reference Range Comments THROMBOPLASTIN TIME PARTIAL (test code=PTT) SECONDS 26.0-35.9 CBC W/AUTO [id number] 17:12:00 Test Item Value Reference Range Comments WHITE BLOOD CELL (test code=WBC) 5.5 x10 3/uL 4.8-10.8 RED BLOOD CELL (test code=RBC) 2.29 x10 6/uL 4.70-6.10 HEMOGLOBIN (test code=HGB) 8.5 g/dL 14.5-20 HEMATOCRIT (test code=HCT) 25.7 % 42.0-52.0 MEAN CELL VOLUME (test code=MCV) 112.2 fL 80.0-94.0 MEAN CELL HGB (test code=MCH) 37.1 pg 27-31 MEAN CELL HGB CONCENTRATION (test 33.1 G/DL 33-36.5 code=MCHC) RED CELL DISTRIBUTION WIDTH (test Test not performed % 12.9-16.9 code=RDW) PLATELET COUNT (test code=PLT) 150-440 NO RESULT MEAN PLATELET VOLUME (test code=MPV) fL 8.9-12.4 NEUTROPHIL % (test code=NT%) 59.1 % 42.2-75.2 LYMPHOCYTE % (test code=LY%) 20.4 % 20.5-51.1 MONOCYTE % (test code=MO%) 14.1 % 1.7-9.3 EOSINOPHIL % (test code=EO%) 5.2 % 0.0-7.0 BASOPHIL % (test code=BA%) 0.7 % 0-2.5 NEUTROPHIL # (test code=NT#) 3.27 x10 3/uL 1.80-7.70 LYMPHOCYTE # (test code=LY#) 1.13 x10 3/uL 1.00-4.80 MONOCYTE # (test code=MO#) 0.78 x10 3/uL 0.00-0.80 EOSINOPHIL # (test code=EO#) 0.29 x10 3/uL 0.00-0.45 BASOPHIL # (test code=BA#) 0.04 x10 3/uL 0.0-0.20 BLOOD [id number] 14:00:00 Test Item Value Reference Range Comments CULTURE (BEAKER) (test zlhe=5256) No growth in 5 days BLOOD [id number] 14:00:00 Test Item Value Reference Range Comments CULTURE (BEAKER) (test vage=5920) No growth in 5 days BASIC METABOLIC [id number] 07:39:00 Test Item Value Reference Range Comments SODIUM (BEAKER) (test 135 meq/L 136-145 sdun=656) POTASSIUM (BEAKER) (test 3.3 meq/L 3.5-5.1 avxg=607) CHLORIDE (BEAKER) (test 115 meq/L 98-107 beqw=671) CO2 (BEAKER) (test 17 meq/L 22-29 ddpj=811) BLOOD UREA NITROGEN 9 mg/dL 7-21 (BEAKER) (test fayb=478) CREATININE (BEAKER) (test 0.85 mg/dL 0.57-1.25 fplq=690) GLUCOSE RANDOM (BEAKER) 96 mg/dL 70-105 (test dykz=772) CALCIUM (BEAKER) (test 8.5 mg/dL 8.4-10.2 iykt=602) EGFR (BEAKER) (test 95 mL/min/1.73 sq m ESTIMATED GFR IS NOT bsoi=8063) ACCURATE CREATININE CLEARANCE IN PREDICTING GLOMERULAR FILTRATION RATE. ESTIMATED GFR IS NOT APPLICABLE FOR DIALYSIS PATIENTS. Specimen moderately ictericHEPATIC FUNCTION [id number] 07:39:00 Test Item Value Reference Range Comments TOTAL PROTEIN (BEAKER) (test epsk=964) 6.1 gm/dL 6.0-8.3 ALBUMIN (BEAKER) (test rmbo=9754) 2.1 g/dL 3.5-5.0 BILIRUBIN TOTAL (BEAKER) (test rhbt=179) 6.9 mg/dL 0.2-1.2 BILIRUBIN DIRECT (BEAKER) (test kjqq=337) 4.3 mg/dL 0.1-0.5 ALKALINE PHOSPHATASE (BEAKER) (test acxh=241) 136 U/L 40-150 AST (SGOT) (BEAKER) (test avkq=078) 64 U/L 5-34 ALT (SGPT) (BEAKER) (test fxtq=396) 36 U/L 6-55 Specimen moderately ictericCBC W/PLT COUNT & AUTO [id number] 06: 56:00 Test Item Value Reference Range Comments WHITE BLOOD CELL COUNT 3.7 K/ L 3.5-10.5 (BEAKER) (test hcpw=278) RED BLOOD CELL COUNT (BEAKER) 2.04 M/ L 4.63-6.08 (test nyhv=102) HEMOGLOBIN (BEAKER) (test 7.7 GM/DL 13.7-17.5 gejh=224) HEMATOCRIT (BEAKER) (test 24.0 % 40.1-51.0 kobm=061) MEAN CORPUSCULAR VOLUME 117.6 fL 79.0-92.2 (BEAKER) (test zzqn=746) MEAN CORPUSCULAR HEMOGLOBIN 37.7 pg 25.7-32.2 (BEAKER) (test ujjy=315) MEAN CORPUSCULAR HEMOGLOBIN 32.1 GM/DL 32.3-36.5 CONC (BEAKER) (test zxkk=109) RED CELL DISTRIBUTION WIDTH Unable to report due to (BEAKER) (test ggro=334) abnormal RBC population distribution. PLATELET COUNT (BEAKER) (test 47 K/CU MM 150-450 bdgy=175) MEAN PLATELET VOLUME (BEAKER) 12.5 fL 9.4-12.4 (test pwej=175) NUCLEATED RED BLOOD CELLS 0 /100 WBC 0-0 (BEAKER) (test jccn=317) NEUTROPHILS RELATIVE PERCENT 53 % (BEAKER) (test mlxj=135) LYMPHOCYTES RELATIVE PERCENT 25 % (BEAKER) (test jatd=003) MONOCYTES RELATIVE PERCENT 15 % (BEAKER) (test pxum=854) EOSINOPHILS RELATIVE PERCENT 7 % (BEAKER) (test etdk=586) BASOPHILS RELATIVE PERCENT 0 % (BEAKER) (test xmlx=155) NEUTROPHILS ABSOLUTE COUNT 1.94 K/ L 1.78-5.38 (BEAKER) (test btok=124) LYMPHOCYTES ABSOLUTE COUNT 0.91 K/ L 1.32-3.57 (BEAKER) (test hzqr=885) MONOCYTES ABSOLUTE COUNT 0.55 K/ L 0.30-0.82 (BEAKER) (test aoua=825) EOSINOPHILS ABSOLUTE COUNT 0.25 K/ L 0.04-0.54 (BEAKER) (test gakg=506) BASOPHILS ABSOLUTE COUNT 0.01 K/ L 0.01-0.08 (BEAKER) (test kuti=877) IMMATURE GRANULOCYTES-RELATIVE 1 % 0-1 PERCENT (BEAKER) (test irhb=2237) PROTHROMBIN [id number] 05:45:00 Test Item Value Reference Range Comments PROTIME (BEAKER) (test cugk=790) 29.9 seconds 11.9-14.2 INR (BEAKER) (test emlm=189) 3.0 <=5.9 Effective 10/09/2018: PT Reference Range ChangeNew: 11.9-14.2 Previous: 11.7- 14.7RECOMMENDED COUMADIN/WARFARIN INR THERAPY RANGESSTANDARD DOSE: 2.0-3.0 Includes: PROPHYLAXIS for venous thrombosis, systemic embolization; TREATMENT for venous thrombosis and/or pulmonary embolus.HIGH RISK: Target INR is2.5-3.5 for patients wiht mechanical heart valves.BLOOD [id number] 20:01:00 Test Item Value Reference Range Comments CULTURE (BEAKER) (test jbut=9695) No growth in 5 days BLOOD [id number] 20:01:00 Test Item Value Reference Range Comments CULTURE (BEAKER) (test gono=7018) No growth in 5 days CBC W/PLT COUNT & AUTO [id number] 11:07:00 Test Item Value Reference Range Comments WHITE BLOOD CELL COUNT 4.1 K/ L 3.5-10.5 (BEAKER) (test htez=116) RED BLOOD CELL COUNT (BEAKER) 2.18 M/ L 4.63-6.08 (test fhqe=373) HEMOGLOBIN (BEAKER) (test 8.0 GM/DL 13.7-17.5 veev=126) HEMATOCRIT (BEAKER) (test 25.9 % 40.1-51.0 ehog=903) MEAN CORPUSCULAR VOLUME 118.8 fL 79.0-92.2 (BEAKER) (test fhvs=609) MEAN CORPUSCULAR HEMOGLOBIN 36.7 pg 25.7-32.2 (BEAKER) (test bous=735) MEAN CORPUSCULAR HEMOGLOBIN 30.9 GM/DL 32.3-36.5 CONC (BEAKER) (test uten=445) RED CELL DISTRIBUTION WIDTH Unable to report due to (BEAKER) (test lgtu=769) abnormal RBC population distribution. PLATELET COUNT (BEAKER) (test 35 K/CU MM 150-450 pnpn=554) MEAN PLATELET VOLUME (BEAKER) 11.2 fL 9.4-12.4 (test tsat=791) NUCLEATED RED BLOOD CELLS 0 /100 WBC 0-0 (BEAKER) (test wrkq=273) (CELLAVISION MANUAL DIFF)2019-02-23 11:07:00 Test Item Value Reference Range Comments NEUTROPHILS - REL (CELLAVISION)(BEAKER) (test 91 % nkqh=5002) LYMPHOCYTES - REL (CELLAVISION)(BEAKER) (test 1 % szaq=2862) MONOCYTES - REL (CELLAVISION)(BEAKER) (test 2 % ygpw=2728) EOSINOPHILS - REL (CELLAVISION)(BEAKER) (test 1 % odog=9387) MYELOCYTES - REL (CELLAVISION)(BEAKER) (test 1 % 0-0 socw=1091) BANDS - REL (CELLAVISION)(BEAKER) (test 4 % 0-10 hjnu=3685) NEUTROPHILS - ABS (CELLAVISION)(BEAKER) (test 3.73 K/ul 1.78-5.38 uaxh=0114) LYMPHOCYTES - ABS (CELLAVISION)(BEAKER) (test 0.04 K/ul 1.32-3.57 kirh=2342) MONOCYTES - ABS (CELLAVISION)(BEAKER) (test 0.08 K/uL 0.30-0.82 gwja=4969) EOSINOPHILS - ABS (CELLAVISION)(BEAKER) (test 0.04 K/uL 0.04-0.54 yfua=0307) MYELOCYTES-ABS (CELLAVISION)(BEAKER) (test 0.04 K/uL 0.00-0.00 xvwb=4528) BANDS - ABS (CELLAVISION)(BEAKER) (test 0.16 K/uL 0.00-0.80 uxeg=8985) TOTAL COUNTED (BEAKER) (test oquo=1157) 100 WBC MORPHOLOGY (BEAKER) (test lnvv=448) Normal PLT MORPHOLOGY (BEAKER) (test udig=903) Normal POLYCHROMATOPHILLIC RBCS(BEAKER) (test ikeh=258) 1+ few HYPOCHROMIA (BEAKER) (test pdvn=718) 1+ few ANISOCYTOSIS (BEAKER) (test vhxk=622) 3+ many MACROCYTES (BEAKER) (test pmqy=654) 3+ many POIKILOCYTES (BEAKER) (test btcz=886) 2+ moderate SCHISTOCYTES (BEAKER) (test izkz=429) 1+ few ELLIPTOCYTES (BEAKER) (test bmve=279) 1+ few MEG CELLS (BEAKER) (test hxff=279) 2+ moderate ARTIFACT (CELLAVISION)(BEAKER) (test pbsd=3796) Present PLATELET CONCENTRATION (CELLAVISION)(BEAKER) Decreased (test rzud=8686) Received comment: User comments: Slide comments:BASIC METABOLIC [id number] 05:22:00 Test Item Value Reference Range Comments SODIUM (BEAKER) (test 136 meq/L 136-145 ehpi=392) POTASSIUM (BEAKER) (test 4.3 meq/L 3.5-5.1 gnpr=809) CHLORIDE (BEAKER) (test 116 meq/L 98-107 yivg=872) CO2 (BEAKER) (test 16 meq/L 22-29 zazr=906) BLOOD UREA NITROGEN 11 mg/dL 7-21 (BEAKER) (test ztom=106) CREATININE (BEAKER) (test 1.01 mg/dL 0.57-1.25 jjmz=330) GLUCOSE RANDOM (BEAKER) 90 mg/dL 70-105 (test mozn=390) CALCIUM (BEAKER) (test 9.0 mg/dL 8.4-10.2 nbjg=873) EGFR (BEAKER) (test 78 mL/min/1.73 sq m ESTIMATED GFR IS NOT nbmn=6829) ACCURATE CREATININE CLEARANCE IN PREDICTING GLOMERULAR FILTRATION RATE. ESTIMATED GFR IS NOT APPLICABLE FOR DIALYSIS PATIENTS. Specimen moderately ictericHEPATIC FUNCTION [id number] 05:22:00 Test Item Value Reference Range Comments TOTAL PROTEIN (BEAKER) (test oinv=698) 6.6 gm/dL 6.0-8.3 ALBUMIN (BEAKER) (test himz=1584) 2.3 g/dL 3.5-5.0 BILIRUBIN TOTAL (BEAKER) (test xjaj=244) 9.0 mg/dL 0.2-1.2 BILIRUBIN DIRECT (BEAKER) (test aijx=950) 5.1 mg/dL 0.1-0.5 ALKALINE PHOSPHATASE (BEAKER) (test tfqi=848) 136 U/L 40-150 AST (SGOT) (BEAKER) (test znra=509) 76 U/L 5-34 ALT (SGPT) (BEAKER) (test vnmr=579) 41 U/L 6-55 Specimen moderately ictericPROTHROMBIN [id number] 04:58:00 Test Item Value Reference Range Comments PROTIME (BEAKER) (test hymj=969) 31.0 seconds 11.9-14.2 INR (BEAKER) (test wvqv=408) 3.2 <=5.9 Effective 10/09/2018: PT Reference Range ChangeNew: 11.9-14.2 Previous: 11.7- 14.7RECOMMENDED COUMADIN/WARFARIN INR THERAPY RANGESSTANDARD DOSE: 2.0-3.0 Includes: PROPHYLAXIS for venous thrombosis, systemic embolization; TREATMENT for venous thrombosis and/or pulmonary embolus.HIGH RISK: Target INR is2.5-3.5 for patients wiht mechanical heart valves.BASIC METABOLIC [id number] 05:35: 00 Test Item Value Reference Range Comments SODIUM (BEAKER) (test 136 meq/L 136-145 jxaw=011) POTASSIUM (BEAKER) (test 3.4 meq/L 3.5-5.1 mbha=825) CHLORIDE (BEAKER) (test 115 meq/L 98-107 pmal=870) CO2 (BEAKER) (test 16 meq/L 22-29 szce=815) BLOOD UREA NITROGEN 7 mg/dL 7-21 (BEAKER) (test wkgy=837) CREATININE (BEAKER) (test 0.81 mg/dL 0.57-1.25 uyeq=630) GLUCOSE RANDOM (BEAKER) 110 mg/dL 70-105 (test mxwl=317) CALCIUM (BEAKER) (test 8.6 mg/dL 8.4-10.2 epum=928) EGFR (BEAKER) (test 100 mL/min/1.73 sq m ESTIMATED GFR IS NOT kfho=5793) ACCURATE CREATININE CLEARANCE IN PREDICTING GLOMERULAR FILTRATION RATE. ESTIMATED GFR IS NOT APPLICABLE FOR DIALYSIS PATIENTS. Specimen moderately ictericHEPATIC FUNCTION [id number] 05:35:00 Test Item Value Reference Range Comments TOTAL PROTEIN (BEAKER) (test ykqu=145) 6.1 gm/dL 6.0-8.3 ALBUMIN (BEAKER) (test anng=9234) 2.1 g/dL 3.5-5.0 BILIRUBIN TOTAL (BEAKER) (test exof=183) 7.0 mg/dL 0.2-1.2 BILIRUBIN DIRECT (BEAKER) (test lcza=064) 4.4 mg/dL 0.1-0.5 ALKALINE PHOSPHATASE (BEAKER) (test lhvz=316) 136 U/L 40-150 AST (SGOT) (BEAKER) (test lqah=421) 70 U/L 5-34 ALT (SGPT) (BEAKER) (test gpmp=096) 38 U/L 6-55 Specimen moderately ictericCBC W/PLT COUNT & AUTO [id number] 05: 21:00 Test Item Value Reference Range Comments WHITE BLOOD CELL COUNT 2.9 K/ L 3.5-10.5 (BEAKER) (test nsxt=729) RED BLOOD CELL COUNT (BEAKER) 1.96 M/ L 4.63-6.08 (test cicf=854) HEMOGLOBIN (BEAKER) (test 7.4 GM/DL 13.7-17.5 cubv=821) HEMATOCRIT (BEAKER) (test 23.0 % 40.1-51.0 tetp=144) MEAN CORPUSCULAR VOLUME 117.3 fL 79.0-92.2 (BEAKER) (test shtw=323) MEAN CORPUSCULAR HEMOGLOBIN 37.8 pg 25.7-32.2 (BEAKER) (test oolr=453) MEAN CORPUSCULAR HEMOGLOBIN 32.2 GM/DL 32.3-36.5 CONC (BEAKER) (test eupm=480) RED CELL DISTRIBUTION WIDTH Unable to report due to (BEAKER) (test jrmt=312) abnormal RBC population distribution. PLATELET COUNT (BEAKER) (test 30 K/CU MM 150-450 kjji=877) MEAN PLATELET VOLUME (BEAKER) 13.0 fL 9.4-12.4 (test yhtp=646) NUCLEATED RED BLOOD CELLS 0 /100 WBC 0-0 (BEAKER) (test onjg=151) NEUTROPHILS RELATIVE PERCENT 55 % (BEAKER) (test gowe=494) LYMPHOCYTES RELATIVE PERCENT 24 % (BEAKER) (test ttev=786) MONOCYTES RELATIVE PERCENT 17 % (BEAKER) (test fhdy=411) EOSINOPHILS RELATIVE PERCENT 3 % (BEAKER) (test mkcm=852) BASOPHILS RELATIVE PERCENT 1 % (BEAKER) (test zgxb=694) NEUTROPHILS ABSOLUTE COUNT 1.59 K/ L 1.78-5.38 (BEAKER) (test knrn=484) LYMPHOCYTES ABSOLUTE COUNT 0.70 K/ L 1.32-3.57 (BEAKER) (test hfnu=445) MONOCYTES ABSOLUTE COUNT 0.48 K/ L 0.30-0.82 (BEAKER) (test vgxp=799) EOSINOPHILS ABSOLUTE COUNT 0.10 K/ L 0.04-0.54 (BEAKER) (test ageh=640) BASOPHILS ABSOLUTE COUNT 0.02 K/ L 0.01-0.08 (BEAKER) (test sepm=959) IMMATURE GRANULOCYTES-RELATIVE 0 % 0-1 PERCENT (BEAKER) (test yhsj=9175) PROTHROMBIN [id number] 05:19:00 Test Item Value Reference Range Comments PROTIME (BEAKER) (test kbpa=877) 30.2 seconds 11.9-14.2 INR (BEAKER) (test obja=618) 3.1 <=5.9 Effective 10/09/2018: PT Reference Range ChangeNew: 11.9-14.2 Previous: 11.7- 14.7RECOMMENDED COUMADIN/WARFARIN INR THERAPY RANGESSTANDARD DOSE: 2.0-3.0 Includes: PROPHYLAXIS for venous thrombosis, systemic embolization; TREATMENT for venous thrombosis and/or pulmonary embolus.HIGH RISK: Target INR is2.5-3.5 for patients wiht mechanical heart valves.PROTHROMBIN [id number] 12:25: 00 Test Item Value Reference Range Comments PROTIME (BEAKER) (test dxel=220) 28.3 seconds 11.9-14.2 INR (BEAKER) (test fnea=740) 2.8 <=5.9 Effective 10/09/2018: PT Reference Range ChangeNew: 11.9-14.2 Previous: 11.7- 14.7RECOMMENDED COUMADIN/WARFARIN INR THERAPY RANGESSTANDARD DOSE: 2.0-3.0 Includes: PROPHYLAXIS for venous thrombosis, systemic embolization; TREATMENT for venous thrombosis and/or pulmonary embolus.HIGH RISK: Target INR is2.5-3.5 for patients wiht mechanical heart valves.BASIC METABOLIC [id number] 08:06: 00 Test Item Value Reference Range Comments SODIUM (BEAKER) (test 136 meq/L 136-145 hiuz=595) POTASSIUM (BEAKER) (test 3.5 meq/L 3.5-5.1 abej=036) CHLORIDE (BEAKER) (test 116 meq/L 98-107 zqsh=882) CO2 (BEAKER) (test 16 meq/L 22-29 pkai=063) BLOOD UREA NITROGEN 8 mg/dL 7-21 (BEAKER) (test jevy=285) CREATININE (BEAKER) (test 1.11 mg/dL 0.57-1.25 rddq=999) GLUCOSE RANDOM (BEAKER) 110 mg/dL 70-105 (test qqrx=535) CALCIUM (BEAKER) (test 8.8 mg/dL 8.4-10.2 icpt=019) EGFR (BEAKER) (test 70 mL/min/1.73 sq m ESTIMATED GFR IS NOT pguc=3107) ACCURATE CREATININE CLEARANCE IN PREDICTING GLOMERULAR FILTRATION RATE. ESTIMATED GFR IS NOT APPLICABLE FOR DIALYSIS PATIENTS. Specimen moderately ictericHEPATIC FUNCTION [id number] 08:06:00 Test Item Value Reference Range Comments TOTAL PROTEIN (BEAKER) (test zdab=934) 6.3 gm/dL 6.0-8.3 ALBUMIN (BEAKER) (test xdde=8051) 2.3 g/dL 3.5-5.0 BILIRUBIN TOTAL (BEAKER) (test tsfu=870) 8.3 mg/dL 0.2-1.2 BILIRUBIN DIRECT (BEAKER) (test aeow=451) 4.9 mg/dL 0.1-0.5 ALKALINE PHOSPHATASE (BEAKER) (test dsjs=387) 137 U/L 40-150 AST (SGOT) (BEAKER) (test hpzm=600) 72 U/L 5-34 ALT (SGPT) (BEAKER) (test hjer=332) 41 U/L 6-55 Specimen moderately ictericCBC W/PLT COUNT & AUTO [id number] 06: 48:00 Test Item Value Reference Range Comments WHITE BLOOD CELL COUNT (BEAKER) (test wwko=723) 3.7 K/ L 3.5-10.5 RED BLOOD CELL COUNT (BEAKER) (test npdw=928) 2.09 M/ L 4.63-6.08 HEMOGLOBIN (BEAKER) (test lfoq=230) 7.8 GM/DL 13.7-17.5 HEMATOCRIT (BEAKER) (test kfkk=315) 24.4 % 40.1-51.0 MEAN CORPUSCULAR VOLUME (BEAKER) (test jhtc=202) 116.7 fL 79.0-92.2 MEAN CORPUSCULAR HEMOGLOBIN (BEAKER) (test 37.3 pg 25.7-32.2 toli=225) MEAN CORPUSCULAR HEMOGLOBIN CONC (BEAKER) (test 32.0 GM/DL 32.3-36.5 awma=812) RED CELL DISTRIBUTION WIDTH (BEAKER) (test 24.3 % 11.6-14.4 xoat=559) PLATELET COUNT (BEAKER) (test sktf=572) 33 K/CU MM 150-450 MEAN PLATELET VOLUME (BEAKER) (test cehf=662) 11.9 fL 9.4-12.4 NUCLEATED RED BLOOD CELLS (BEAKER) (test 0 /100 WBC 0-0 vhdc=788) NEUTROPHILS RELATIVE PERCENT (BEAKER) (test 56 % gbpk=739) LYMPHOCYTES RELATIVE PERCENT (BEAKER) (test 24 % fpeo=531) MONOCYTES RELATIVE PERCENT (BEAKER) (test 14 % cyoo=742) EOSINOPHILS RELATIVE PERCENT (BEAKER) (test 4 % kfay=150) BASOPHILS RELATIVE PERCENT (BEAKER) (test 1 % mwdm=903) NEUTROPHILS ABSOLUTE COUNT (BEAKER) (test 2.06 K/ L 1.78-5.38 tzjb=047) LYMPHOCYTES ABSOLUTE COUNT (BEAKER) (test 0.89 K/ L 1.32-3.57 cfqz=862) MONOCYTES ABSOLUTE COUNT (BEAKER) (test kwtu=952) 0.53 K/ L 0.30-0.82 EOSINOPHILS ABSOLUTE COUNT (BEAKER) (test 0.16 K/ L 0.04-0.54 fygo=394) BASOPHILS ABSOLUTE COUNT (BEAKER) (test iqpu=635) 0.03 K/ L 0.01-0.08 IMMATURE GRANULOCYTES-RELATIVE PERCENT (BEAKER) 1 % 0-1 (test vffz=9846) CALCIUM, [id number] 07:11:00 Test Item Value Reference Range Comments CALCIUM IONIZED (BEAKER) (test tmxy=261) 1.27 mmol/L 1.12-1.27 PH, BLOOD (BEAKER) (test hxao=9900) 7.33 CBC W/PLT COUNT & AUTO [id number] 06:47:00 Test Item Value Reference Range Comments WHITE BLOOD CELL COUNT (BEAKER) (test wjkh=204) 4.6 K/ L 3.5-10.5 RED BLOOD CELL COUNT (BEAKER) (test jmkx=199) 2.38 M/ L 4.63-6.08 HEMOGLOBIN (BEAKER) (test goem=085) 9.0 GM/DL 13.7-17.5 HEMATOCRIT (BEAKER) (test idzb=861) 28.1 % 40.1-51.0 MEAN CORPUSCULAR VOLUME (BEAKER) (test luxl=687) 118.1 fL 79.0-92.2 MEAN CORPUSCULAR HEMOGLOBIN (BEAKER) (test 37.8 pg 25.7-32.2 zjtt=490) MEAN CORPUSCULAR HEMOGLOBIN CONC (BEAKER) (test 32.0 GM/DL 32.3-36.5 xxfv=011) RED CELL DISTRIBUTION WIDTH (BEAKER) (test 25.2 % 11.6-14.4 hnzr=592) PLATELET COUNT (BEAKER) (test dpmv=068) 37 K/CU MM 150-450 MEAN PLATELET VOLUME (BEAKER) (test dokv=775) 12.7 fL 9.4-12.4 NUCLEATED RED BLOOD CELLS (BEAKER) (test 0 /100 WBC 0-0 vmfw=852) NEUTROPHILS RELATIVE PERCENT (BEAKER) (test 63 % wlux=899) LYMPHOCYTES RELATIVE PERCENT (BEAKER) (test 21 % ytvr=859) MONOCYTES RELATIVE PERCENT (BEAKER) (test 11 % oztf=742) EOSINOPHILS RELATIVE PERCENT (BEAKER) (test 5 % dmod=281) BASOPHILS RELATIVE PERCENT (BEAKER) (test 1 % stvx=443) NEUTROPHILS ABSOLUTE COUNT (BEAKER) (test 2.91 K/ L 1.78-5.38 majl=650) LYMPHOCYTES ABSOLUTE COUNT (BEAKER) (test 0.95 K/ L 1.32-3.57 lyvd=618) MONOCYTES ABSOLUTE COUNT (BEAKER) (test awkw=787) 0.49 K/ L 0.30-0.82 EOSINOPHILS ABSOLUTE COUNT (BEAKER) (test 0.21 K/ L 0.04-0.54 cngu=547) BASOPHILS ABSOLUTE COUNT (BEAKER) (test volw=629) 0.04 K/ L 0.01-0.08 IMMATURE GRANULOCYTES-RELATIVE PERCENT (BEAKER) 1 % 0-1 (test lbub=7278) [id number] 06:37:00 Test Item Value Reference Range Comments PHOSPHORUS (BEAKER) (test shhx=036) 2.5 mg/dL 2.3-4.7 [id number] 06:37:00 Test Item Value Reference Range Comments MAGNESIUM (BEAKER) (test eida=832) 1.7 mg/dL 1.6-2.6 BASIC METABOLIC [id number] 06:37:00 Test Item Value Reference Range Comments SODIUM (BEAKER) (test 141 meq/L 136-145 blzl=137) POTASSIUM (BEAKER) (test 3.6 meq/L 3.5-5.1 oyiv=401) CHLORIDE (BEAKER) (test 119 meq/L 98-107 aaka=592) CO2 (BEAKER) (test 17 meq/L 22-29 yzho=722) BLOOD UREA NITROGEN 13 mg/dL 7-21 (BEAKER) (test gzpk=606) CREATININE (BEAKER) (test 0.99 mg/dL 0.57-1.25 qdyq=501) GLUCOSE RANDOM (BEAKER) 82 mg/dL 70-105 (test xerp=469) CALCIUM (BEAKER) (test 9.5 mg/dL 8.4-10.2 yknk=305) EGFR (BEAKER) (test 79 mL/min/1.73 sq m ESTIMATED GFR IS NOT zfte=9533) ACCURATE CREATININE CLEARANCE IN PREDICTING GLOMERULAR FILTRATION RATE. ESTIMATED GFR IS NOT APPLICABLE FOR DIALYSIS PATIENTS. Specimen markedly ictericHEPATIC FUNCTION [id number] 06:37:00 Test Item Value Reference Range Comments TOTAL PROTEIN (BEAKER) (test kowj=735) 6.7 gm/dL 6.0-8.3 ALBUMIN (BEAKER) (test mllg=0344) 2.6 g/dL 3.5-5.0 BILIRUBIN TOTAL (BEAKER) (test kley=143) 11.4 mg/dL 0.2-1.2 BILIRUBIN DIRECT (BEAKER) (test jyxu=352) 6.1 mg/dL 0.1-0.5 ALKALINE PHOSPHATASE (BEAKER) (test qlkg=148) 136 U/L 40-150 AST (SGOT) (BEAKER) (test mikd=260) 68 U/L 5-34 ALT (SGPT) (BEAKER) (test axph=958) 39 U/L 6-55 Specimen markedly ictericU/S, ABDOMINAL, WITH [id number] 18:04:00Please assess TIPS with velocities and patency, r/o PVT, liver lesionReason for exam:-& gt;Decompensated cirrhosis. Please assess TIPS with velocities and patency, r/o PVT, ascites, liver lesionsAddendum BeginsREPORT STATUS:A There is likely sludge layering in the gallbladder. Signed: Estuardo Mondragon MDReport Verified Date/Time: 02/19/2019 18:04:21 Reading Location: [address] Radiology Reading RoomAddendum EndsFINAL REPORT TECHNIQUE: Grayscale ultrasound of the abdomen with color Doppler and spectral Doppler ultrasound of the portal/hepatic vasculature. INDICATION: Decompensated cirrhosis. Please assess TIPS with velocities and patency, r/o PVT,ascites, liver lesions. COMPARISON: Ultrasound from 12/31/2018. FINDINGS: LIVER: Nodular liver contour. No focal liver lesions. HEPATIC VASCULATURE: The hepatic arteries are patent with normal flow velocities, resistive indices, and waveforms. The middle and right hepatic veins as well as the hepatic venous confluence are patent. The left hepatic vein was not well visualized. The main portal vein measures 1.2 cm. The hepatic arterial resistive indices range from 0.7-0.8 with a proper hepatic arterial acceleration time of 0.06 seconds. The proximal TIPS velocity is 112 cm/s (previously 165 cm/s). The mid TIPS velocity is 159 cm/s (previously 169 cm/s). The distal TIPS velocity is 106 cm/s ( previously 161 cm/s). The main portal vein posterior likely into the TIPS with a velocity of 40.2 cm/s. All of the portal vascular flows into the TIPS. The hepatic veins were difficult to visualize. BILIARY:Gallbladder: No gallstones or sludge. No gallbladder wall thickening, pericholecystic fluid, or distention. Negative sonographic Chowdhury sign.Common bile duct measures 0.4 cm, within normal limits. No intrahepatic biliary ductal dilatation. PANCREAS: Incompletely visualized due to overlying bowel gas. The partially visualized pancreatic body is normal. SPLEEN: The spleen is mildly enlarged at 13.3 cm in length PERITONEUM: No free fluid. KIDNEYS: Normal in size bilaterally. No hydronephrosis. No sonographically evident solid mass lesion. MIDLINE VASCULATURE: The visualized inferior vena cava is patent. The maximum visualized aortic diameter is 2.6 cm. Splenic artery and vein are patent. Small left pleural effusion. IMPRESSION: 1.The TIPS is patent. 2.Left hepatic vein was not well visualized. 3.Cirrhosis with splenomegaly. 4.Small left pleural effusion. Signed: Estuardo Mondragon MDReport Verified Date/Time: 02/19/2019 17: 52:03 Reading Location: [address] Radiology Reading Room EEG AWAKE AND [id number] 12:08:00Reason for exam:->eval for AMSEEG REPORT: Estuardo Taylor, 53 [facility] HospitalMRN:[id number] of EEDate of report: Test location: Inpatient - Patient RoomEEG #: [id number] Code: #: R56.9 Unspecified convulsions (780.39)CPT Code: #: 03855: 01. EEG awake and drowsy; 20-40 minPROCEDURE:EEG HISTORY: 53yo R-handed male w/ hx of EtOH cirrhosis & recfent admission for HE & acute alcoholic hepatitis. Pt remains confused w/ daily neuro check, alteration of mental status likely secondaryMEDICATIONS AFFECTING EEG: ergocalciferol, folice acid, lactulose, meropenem, nystatin, pantoprazole, propranolol, rifaximin, thiamineTECHNICAL SUMMARY: This is a digital EEG performed using disc electrodes placed according to the International 10-20 system of electrode placement. Scalp to scalpand scalp to ear montages were used. DESCRIPTION OF RECORD: In the best awake state, a Posterior Dominant Rhythm (PDR) was present at 6-7 cycles/ second. Excessive amounts of bilateral 5-6 cycles/second theta activity was present intermixed with the background rhythm. There was no focal asymmetry in the background. No epileptiform discharges were noted. No clinical or electrographic seizures were noted.SLEEP The patient was drowsy during the recording.HYPERVENTILATION: Hyperventilation was not performed.PHOTIC STIMULATION: Photic stimulation did not result in a driving response.EKG: The heart rate was 60/ min.IMPRESSION:The EEG was abnormal due to mild diffuse slowing of the background rhythm. No seizures or epileptiform discharges were seen.COMMENT:Mild diffuse slowing is a nonspecific finding indicative of mild global cerebral dysfunction of metabolic, toxic, drug-induced or other etiology. Please correlate clinically.Neurophysiologist: Jeri Torrez CBC W/PLT COUNT & amp; AUTO [id number] 11:09:00 Test Item Value Reference Range Comments WHITE BLOOD CELL COUNT (BEAKER) (test jtjb=207) 5.0 K/ L 3.5-10.5 RED BLOOD CELL COUNT (BEAKER) (test fmok=640) 2.37 M/ L 4.63-6.08 HEMOGLOBIN (BEAKER) (test crgu=128) 8.7 GM/DL 13.7-17.5 HEMATOCRIT (BEAKER) (test saqb=646) 27.4 % 40.1-51.0 MEAN CORPUSCULAR VOLUME (BEAKER) (test lckq=492) 115.6 fL 79.0-92.2 MEAN CORPUSCULAR HEMOGLOBIN (BEAKER) (test 36.7 pg 25.7-32.2 jbtb=216) MEAN CORPUSCULAR HEMOGLOBIN CONC (BEAKER) (test 31.8 GM/DL 32.3-36.5 oftb=720) RED CELL DISTRIBUTION WIDTH (BEAKER) (test 25.3 % 11.6-14.4 jebi=383) PLATELET COUNT (BEAKER) (test wukr=451) 36 K/CU MM 150-450 MEAN PLATELET VOLUME (BEAKER) (test wfzt=336) 11.7 fL 9.4-12.4 NUCLEATED RED BLOOD CELLS (BEAKER) (test 0 /100 WBC 0-0 acxs=493) (MANUAL DIFFERENTIAL)2019-02-19 11:09:00 Test Item Value Reference Range Comments NEUTROPHILS - REL (DIFF) (BEAKER) (test nylj=5912) 67 % LYMPHOCYTES - REL (DIFF) (BEAKER) (test ckit=9509) 12 % MONOCYTES - REL (DIFF) (BEAKER) (test dbpu=0236) 5 % EOSINOPHILS - REL (DIFF) (BEAKER) (test iaau=1591) 5 % BASOPHILS - REL (DIFF) (BEAKER) (test jsos=1865) 0 % BANDS - REL (DIFF) (BEAKER) (test mbmx=8693) 10 % 0-10 ATYPICAL LYMPHOCYTE - REL (DIFF) (BEAKER) (test 1 % 0-0 nyct=900) NEUTROPHILS - ABS (DIFF) (BEAKER) (test essy=2220) 3.35 K/ L 1.80-8.00 LYMPHOCYTES - ABS (DIFF) (BEAKER) (test vjbm=2494) 0.60 K/ L 1.48-4.50 MONOCYTES - ABS (DIFF) (BEAKER) (test hlwp=3357) 0.25 K/ L 0.00-1.30 EOSINOPHILS - ABS (DIFF) (BEAKER) (test lais=6484) 0.25 K/ L 0.00-0.50 BASOPHILS - ABS (DIFF) (BEAKER) (test reit=6233) 0.00 K/ L 0.00-0.20 BANDS-ABS (DIFF) (BEAKER) (test esou=7687) 0.5 K/ L 0.0-0.8 ATYPICAL LYMPHOCYTES - ABS (DIFF) (BEAKER) (test 0.05 K/ L 0.00-0.00 mxty=585) TOTAL COUNTED (BEAKER) (test kxfg=6412) 100 BANDS + SEGMENTED NEUTROPHILS (BEAKER) (test 3.85 cpcd=8847) WBC MORPHOLOGY (BEAKER) (test yiwd=553) Normal PLT MORPHOLOGY (BEAKER) (test ytqv=601) Normal RBC MORPHOLOGY (BEAKER) (test gctv=782) Normal CALCIUM, [id number] 05:52:00 Test Item Value Reference Range Comments CALCIUM IONIZED (BEAKER) (test qgix=160) 1.26 mmol/L 1.12-1.27 PH, BLOOD (BEAKER) (test irub=8036) 7.40 [id number] 05:35:00 Test Item Value Reference Range Comments PHOSPHORUS (BEAKER) (test ozcp=386) 2.6 mg/dL 2.3-4.7 [id number] 05:35:00 Test Item Value Reference Range Comments MAGNESIUM (BEAKER) (test sufl=816) 1.9 mg/dL 1.6-2.6 BASIC METABOLIC [id number] 05:35:00 Test Item Value Reference Range Comments SODIUM (BEAKER) (test 141 meq/L 136-145 bxci=276) POTASSIUM (BEAKER) (test 3.5 meq/L 3.5-5.1 jexg=630) CHLORIDE (BEAKER) (test 118 meq/L 98-107 gvyz=578) CO2 (BEAKER) (test 19 meq/L 22-29 ptbx=847) BLOOD UREA NITROGEN 15 mg/dL 7-21 (BEAKER) (test hdmg=929) CREATININE (BEAKER) (test 1.00 mg/dL 0.57-1.25 lgxt=400) GLUCOSE RANDOM (BEAKER) 86 mg/dL 70-105 (test iovm=014) CALCIUM (BEAKER) (test 9.2 mg/dL 8.4-10.2 lbqf=367) EGFR (BEAKER) (test 78 mL/min/1.73 sq m ESTIMATED GFR IS NOT xess=9924) ACCURATE CREATININE CLEARANCE IN PREDICTING GLOMERULAR FILTRATION RATE. ESTIMATED GFR IS NOT APPLICABLE FOR DIALYSIS PATIENTS. Specimen markedly ictericHEPATIC FUNCTION [id number] 05:35:00 Test Item Value Reference Range Comments TOTAL PROTEIN (BEAKER) (test yqwr=754) 6.7 gm/dL 6.0-8.3 ALBUMIN (BEAKER) (test tcnc=5338) 2.5 g/dL 3.5-5.0 BILIRUBIN TOTAL (BEAKER) (test xmrj=078) 14.7 mg/dL 0.2-1.2 BILIRUBIN DIRECT (BEAKER) (test jjnh=368) 7.1 mg/dL 0.1-0.5 ALKALINE PHOSPHATASE (BEAKER) (test zgzy=868) 154 U/L 40-150 AST (SGOT) (BEAKER) (test ekcg=150) 72 U/L 5-34 ALT (SGPT) (BEAKER) (test nwch=994) 43 U/L 6-55 Specimen markedly ictericURINALYSIS W/ REFLEX URINE [id number] 00:17:00 Test Item Value Reference Range Comments COLOR (BEAKER) (test maox=896) Dark Yellow CLARITY (BEAKER) (test fpda=849) Clear SPECIFIC GRAVITY UA (BEAKER) (test gyhz=410) 1.011 1.001-1.035 PH UA (BEAKER) (test uknw=924) 7.0 5.0-8.0 PROTEIN UA (BEAKER) (test utvr=129) Negative Negative GLUCOSE UA (BEAKER) (test kpen=416) Negative Negative KETONES UA (BEAKER) (test byjg=178) Negative Negative BILIRUBIN UA (BEAKER) (test gwwg=099) Positive Negative BLOOD UA (BEAKER) (test kmel=301) Trace Negative NITRITE UA (BEAKER) (test klzm=689) Negative Negative LEUKOCYTE ESTERASE UA (BEAKER) (test wpyi=426) Negative Negative UROBILINOGEN UA (BEAKER) (test mbcv=022) 8.0 mg/dL 0.2-1.0 RBC UA (BEAKER) (test blyh=714) 1 /HPF WBC UA (BEAKER) (test wcrx=168) 3 /HPF SQUAMOUS EPITHELIAL (BEAKER) (test xnoq=027) < /HPF HYALINE CASTS (BEAKER) (test zlii=719) 1 /LPF SOURCE(BEAKER) (test hzol=3698) [id number] 17:04:00 Test Item Value Reference Range Comments SODIUM (BEAKER) (test abtz=325) 142 meq/L 136-145 POTASSIUM (BEAKER) (test rzxb=593) 3.1 meq/L 3.5-5.1 CHLORIDE (BEAKER) (test xnga=530) 116 meq/L 98-107 CO2 (BEAKER) (test olav=391) 21 meq/L 22-29 Call results [id number], CHEST, 1 VIEW, NON [id number] 13:35:00Reason for exam:->fever, r/o pneumoniaShould this be performed at the bedside?-> YesFINAL REPORT INDICATION: fever, r/o pneumonia COMPARISON: February 12, 2019 TECHNIQUE: Single frontal view of the chest. FINDINGS: Lungs and pleura: Clear lungs. No effusion.Heart and mediastinum: Normal heart size. Unremarkable mediastinal contours.Osseous structures: No acute abnormality.Other: None. IMPRESSION: No acute intrathoracic abnormality. Signed: JR Oquendo Robert MDReport Verified Date/Time: 02/18/2019 13:35: 38 Reading Location: [facility] Radiology Reading Room OSMOLALITY, [id number] 06:44:00 Test Item Value Reference Range Comments OSMOLALITY URINE (BEAKER) (test purp=916) 409 mOsm/kg 40-1,400 SODIUM, RANDOM [id number] 05:33:00 Test Item Value Reference Range Comments SODIUM URINE (BEAKER) (test ldel=962) < meq/L Reference Range: No NormalsB-TYPE NATRIURETIC FACTOR (BNP)2019-02-18 03:35:00 Test Item Value Reference Range Comments B-TYPE NATRIURETIC PEPTIDE (BEAKER) (test 234 pg/mL 0-100 joys=424) [id number] 03:31:00 Test Item Value Reference Range Comments PHOSPHORUS (BEAKER) (test sqzk=563) 3.7 mg/dL 2.3-4.7 [id number] 03:31:00 Test Item Value Reference Range Comments MAGNESIUM (BEAKER) (test bwtw=416) 1.7 mg/dL 1.6-2.6 COMPREHENSIVE METABOLIC [id number] 03:31:00 Test Item Value Reference Range Comments TOTAL PROTEIN (BEAKER) 6.8 gm/dL 6.0-8.3 (test prdp=041) ALBUMIN (BEAKER) (test 2.1 g/dL 3.5-5.0 qejk=3958) ALKALINE PHOSPHATASE 228 U/L 40-150 (BEAKER) (test bbaf=347) BILIRUBIN TOTAL (BEAKER) 11.0 mg/dL 0.2-1.2 (test taho=359) SODIUM (BEAKER) (test 144 meq/L 136-145 lqej=791) POTASSIUM (BEAKER) (test 3.0 meq/L 3.5-5.1 oqmw=515) CHLORIDE (BEAKER) (test 117 meq/L 98-107 riwm=715) CO2 (BEAKER) (test 21 meq/L 22-29 veha=116) BLOOD UREA NITROGEN 13 mg/dL 7-21 (BEAKER) (test pkbq=781) CREATININE (BEAKER) (test 1.12 mg/dL 0.57-1.25 uvip=826) GLUCOSE RANDOM (BEAKER) 108 mg/dL 70-105 (test eeiv=357) CALCIUM (BEAKER) (test 9.2 mg/dL 8.4-10.2 qvys=979) AST (SGOT) (BEAKER) (test 104 U/L 5-34 nnsd=484) ALT (SGPT) (BEAKER) (test 52 U/L 6-55 cctn=821) EGFR (BEAKER) (test 69 mL/min/1.73 sq m ESTIMATED GFR IS NOT rvij=7446) ACCURATE CREATININE CLEARANCE IN PREDICTING GLOMERULAR FILTRATION RATE. ESTIMATED GFR IS NOT APPLICABLE FOR DIALYSIS PATIENTS. Specimen markedly ictericHEPATIC FUNCTION [id number] 03:31:00 Test Item Value Reference Range Comments TOTAL PROTEIN (BEAKER) (test lzvc=450) 6.8 gm/dL 6.0-8.3 ALBUMIN (BEAKER) (test xgbw=7332) 2.1 g/dL 3.5-5.0 BILIRUBIN TOTAL (BEAKER) (test qigs=024) 11.0 mg/dL 0.2-1.2 BILIRUBIN DIRECT (BEAKER) (test gvyt=394) 6.0 mg/dL 0.1-0.5 ALKALINE PHOSPHATASE (BEAKER) (test estn=971) 228 U/L 40-150 AST (SGOT) (BEAKER) (test jhhq=770) 104 U/L 5-34 ALT (SGPT) (BEAKER) (test usvh=699) 52 U/L 6-55 Specimen markedly ictericCBC W/PLT COUNT & AUTO [id number] 03:27 :00 Test Item Value Reference Range Comments WHITE BLOOD CELL COUNT (BEAKER) (test xqgl=765) 5.7 K/ L 3.5-10.5 RED BLOOD CELL COUNT (BEAKER) (test roim=468) 2.68 M/ L 4.63-6.08 HEMOGLOBIN (BEAKER) (test ofbf=587) 9.9 GM/DL 13.7-17.5 HEMATOCRIT (BEAKER) (test vxhb=179) 30.6 % 40.1-51.0 MEAN CORPUSCULAR VOLUME (BEAKER) (test jgqm=318) 114.2 fL 79.0-92.2 MEAN CORPUSCULAR HEMOGLOBIN (BEAKER) (test 36.9 pg 25.7-32.2 uuhl=885) MEAN CORPUSCULAR HEMOGLOBIN CONC (BEAKER) (test 32.4 GM/DL 32.3-36.5 strb=982) RED CELL DISTRIBUTION WIDTH (BEAKER) (test 26.0 % 11.6-14.4 aymz=059) PLATELET COUNT (BEAKER) (test znfw=476) 35 K/CU MM 150-450 MEAN PLATELET VOLUME (BEAKER) (test umtv=505) 9.6 fL 9.4-12.4 NUCLEATED RED BLOOD CELLS (BEAKER) (test 0 /100 WBC 0-0 qajo=890) NEUTROPHILS RELATIVE PERCENT (BEAKER) (test 74 % pzjx=481) LYMPHOCYTES RELATIVE PERCENT (BEAKER) (test 12 % vgyo=128) MONOCYTES RELATIVE PERCENT (BEAKER) (test 8 % cciz=913) EOSINOPHILS RELATIVE PERCENT (BEAKER) (test 5 % mszv=945) BASOPHILS RELATIVE PERCENT (BEAKER) (test 1 % woqo=318) NEUTROPHILS ABSOLUTE COUNT (BEAKER) (test 4.24 K/ L 1.78-5.38 mzzn=234) LYMPHOCYTES ABSOLUTE COUNT (BEAKER) (test 0.69 K/ L 1.32-3.57 rnfw=667) MONOCYTES ABSOLUTE COUNT (BEAKER) (test rzxo=970) 0.48 K/ L 0.30-0.82 EOSINOPHILS ABSOLUTE COUNT (BEAKER) (test 0.27 K/ L 0.04-0.54 sdfc=164) BASOPHILS ABSOLUTE COUNT (BEAKER) (test npyk=939) 0.04 K/ L 0.01-0.08 IMMATURE GRANULOCYTES-RELATIVE PERCENT (BEAKER) 0 % 0-1 (test xhtk=5362) CALCIUM, [id number] 03:04:00 Test Item Value Reference Range Comments CALCIUM IONIZED (BEAKER) (test vixe=743) 1.25 mmol/L 1.12-1.27 PH, BLOOD (BEAKER) (test bvtw=7522) 7.42 [id number] 20:04:00 Test Item Value Reference Range Comments SODIUM (BEAKER) (test qhcn=794) 142 meq/L 136-145 POTASSIUM (BEAKER) (test 3.3 meq/L 3.5-5.1 Specimen slightly hemolyzed dlre=674) CHLORIDE (BEAKER) (test 117 meq/L 98-107 mbrg=354) CO2 (BEAKER) (test ibxy=402) 16 meq/L 22-29 Call [id number] [id number] 20:00:00 Test Item Value Reference Range Comments CULTURE (BEAKER) (test gmly=4352) No growth in 5 days BLOOD [id number] 20:00:00 Test Item Value Reference Range Comments CULTURE (BEAKER) (test xngk=7089) No growth in 5 days [id number] 16:30:00 Test Item Value Reference Range Comments SODIUM (BEAKER) (test fqjm=204) 142 meq/L 136-145 Page [phone] with resultsBASIC METABOLIC [id number] 07:55:00 Test Item Value Reference Range Comments SODIUM (BEAKER) (test 152 meq/L 136-145 sbqc=335) POTASSIUM (BEAKER) (test 2.9 meq/L 3.5-5.1 kbpf=428) CHLORIDE (BEAKER) (test 122 meq/L 98-107 iino=060) CO2 (BEAKER) (test 23 meq/L 22-29 dzfj=392) BLOOD UREA NITROGEN 12 mg/dL 7-21 (BEAKER) (test gnjh=956) CREATININE (BEAKER) (test 0.88 mg/dL 0.57-1.25 gwgs=964) GLUCOSE RANDOM (BEAKER) 84 mg/dL 70-105 (test rqes=719) CALCIUM (BEAKER) (test 9.8 mg/dL 8.4-10.2 hxer=773) EGFR (BEAKER) (test 91 mL/min/1.73 sq m ESTIMATED GFR IS NOT fcky=1976) ACCURATE CREATININE CLEARANCE IN PREDICTING GLOMERULAR FILTRATION RATE. ESTIMATED GFR IS NOT APPLICABLE FOR DIALYSIS PATIENTS. Specimen markedly ictericHEPATIC FUNCTION [id number] 07:52:00 Test Item Value Reference Range Comments TOTAL PROTEIN (BEAKER) (test oisv=149) 7.0 gm/dL 6.0-8.3 ALBUMIN (BEAKER) (test nazk=8230) 2.2 g/dL 3.5-5.0 BILIRUBIN TOTAL (BEAKER) (test eyrm=880) 10.8 mg/dL 0.2-1.2 BILIRUBIN DIRECT (BEAKER) (test eqzd=580) 6.6 mg/dL 0.1-0.5 ALKALINE PHOSPHATASE (BEAKER) (test hvfb=433) 237 U/L 40-150 AST (SGOT) (BEAKER) (test fnch=425) 109 U/L 5-34 ALT (SGPT) (BEAKER) (test dbua=290) 50 U/L 6-55 Specimen markedly ictericCBC W/PLT COUNT & AUTO [id number] 06:45 :00 Test Item Value Reference Range Comments WHITE BLOOD CELL COUNT (BEAKER) (test ydhs=694) 5.6 K/ L 3.5-10.5 RED BLOOD CELL COUNT (BEAKER) (test atey=143) 2.85 M/ L 4.63-6.08 HEMOGLOBIN (BEAKER) (test bmqn=132) 10.5 GM/DL 13.7-17.5 HEMATOCRIT (BEAKER) (test foet=033) 33.0 % 40.1-51.0 MEAN CORPUSCULAR VOLUME (BEAKER) (test qecj=924) 115.8 fL 79.0-92.2 MEAN CORPUSCULAR HEMOGLOBIN (BEAKER) (test 36.8 pg 25.7-32.2 hgqv=069) MEAN CORPUSCULAR HEMOGLOBIN CONC (BEAKER) (test 31.8 GM/DL 32.3-36.5 rbip=363) RED CELL DISTRIBUTION WIDTH (BEAKER) (test 26.9 % 11.6-14.4 mbrh=018) PLATELET COUNT (BEAKER) (test nzaq=566) 50 K/CU MM 150-450 MEAN PLATELET VOLUME (BEAKER) (test urck=271) 11.5 fL 9.4-12.4 NUCLEATED RED BLOOD CELLS (BEAKER) (test 0 /100 WBC 0-0 oiqn=306) NEUTROPHILS RELATIVE PERCENT (BEAKER) (test 55 % adog=429) LYMPHOCYTES RELATIVE PERCENT (BEAKER) (test 21 % wcdg=397) MONOCYTES RELATIVE PERCENT (BEAKER) (test 16 % yckw=823) EOSINOPHILS RELATIVE PERCENT (BEAKER) (test 6 % pqfs=295) BASOPHILS RELATIVE PERCENT (BEAKER) (test 1 % aegg=927) NEUTROPHILS ABSOLUTE COUNT (BEAKER) (test 3.07 K/ L 1.78-5.38 jsva=822) LYMPHOCYTES ABSOLUTE COUNT (BEAKER) (test 1.17 K/ L 1.32-3.57 doph=855) MONOCYTES ABSOLUTE COUNT (BEAKER) (test yqla=584) 0.88 K/ L 0.30-0.82 EOSINOPHILS ABSOLUTE COUNT (BEAKER) (test 0.34 K/ L 0.04-0.54 rgkh=283) BASOPHILS ABSOLUTE COUNT (BEAKER) (test wrge=463) 0.05 K/ L 0.01-0.08 IMMATURE GRANULOCYTES-RELATIVE PERCENT (BEAKER) 1 % 0-1 (test fxfv=3713) BASIC METABOLIC [id number] 22:40:00 Test Item Value Reference Range Comments SODIUM (BEAKER) (test 156 meq/L 136-145 typi=408) POTASSIUM (BEAKER) (test 3.4 meq/L 3.5-5.1 Specimen slightly iacs=082) hemolyzed CHLORIDE (BEAKER) (test 127 meq/L 98-107 hbms=794) CO2 (BEAKER) (test 22 meq/L 22-29 fnua=155) BLOOD UREA NITROGEN 12 mg/dL 7-21 (BEAKER) (test eohy=868) CREATININE (BEAKER) (test 0.90 mg/dL 0.57-1.25 Specimen slightly uowl=293) hemolyzed GLUCOSE RANDOM (BEAKER) 111 mg/dL 70-105 (test cisz=243) CALCIUM (BEAKER) (test 9.9 mg/dL 8.4-10.2 wsbm=868) EGFR (BEAKER) (test 89 mL/min/1.73 sq m ESTIMATED GFR IS NOT zgwe=9547) ACCURATE CREATININE CLEARANCE IN PREDICTING GLOMERULAR FILTRATION RATE. ESTIMATED GFR IS NOT APPLICABLE FOR DIALYSIS PATIENTS. Specimen markedly ictericBASIC METABOLIC [id number] 07:31:00 Test Item Value Reference Range Comments SODIUM (BEAKER) (test 156 meq/L 136-145 swda=577) POTASSIUM (BEAKER) (test 2.7 meq/L 3.5-5.1 kilm=972) CHLORIDE (BEAKER) (test 126 meq/L 98-107 cjow=600) CO2 (BEAKER) (test 25 meq/L 22-29 vrno=473) BLOOD UREA NITROGEN 10 mg/dL 7-21 (BEAKER) (test qdtn=000) CREATININE (BEAKER) (test 0.94 mg/dL 0.57-1.25 ienw=366) GLUCOSE RANDOM (BEAKER) 106 mg/dL 70-105 (test sylh=694) CALCIUM (BEAKER) (test 10.5 mg/dL 8.4-10.2 fszs=916) EGFR (BEAKER) (test 84 mL/min/1.73 sq m ESTIMATED GFR IS NOT qpvg=3293) ACCURATE CREATININE CLEARANCE IN PREDICTING GLOMERULAR FILTRATION RATE. ESTIMATED GFR IS NOT APPLICABLE FOR DIALYSIS PATIENTS. Specimen markedly ictericHEPATIC FUNCTION [id number] 07:18:00 Test Item Value Reference Range Comments TOTAL PROTEIN (BEAKER) (test xpwo=779) 7.6 gm/dL 6.0-8.3 ALBUMIN (BEAKER) (test nxwh=9330) 2.4 g/dL 3.5-5.0 BILIRUBIN TOTAL (BEAKER) (test prbw=369) 12.6 mg/dL 0.2-1.2 BILIRUBIN DIRECT (BEAKER) (test cwna=118) 7.5 mg/dL 0.1-0.5 ALKALINE PHOSPHATASE (BEAKER) (test apkz=733) 232 U/L 40-150 AST (SGOT) (BEAKER) (test kddq=161) 121 U/L 5-34 ALT (SGPT) (BEAKER) (test ulgc=833) 54 U/L 6-55 Specimen markedly ictericCBC W/PLT COUNT & AUTO [id number] 07:11 :00 Test Item Value Reference Range Comments WHITE BLOOD CELL COUNT (BEAKER) (test wuvu=877) 5.1 K/ L 3.5-10.5 RED BLOOD CELL COUNT (BEAKER) (test ptyu=773) 2.81 M/ L 4.63-6.08 HEMOGLOBIN (BEAKER) (test iauz=935) 10.3 GM/DL 13.7-17.5 HEMATOCRIT (BEAKER) (test ecmg=236) 32.3 % 40.1-51.0 MEAN CORPUSCULAR VOLUME (BEAKER) (test ybmh=304) 114.9 fL 79.0-92.2 MEAN CORPUSCULAR HEMOGLOBIN (BEAKER) (test 36.7 pg 25.7-32.2 jtxx=373) MEAN CORPUSCULAR HEMOGLOBIN CONC (BEAKER) (test 31.9 GM/DL 32.3-36.5 rcxg=306) RED CELL DISTRIBUTION WIDTH (BEAKER) (test 27.0 % 11.6-14.4 buuo=893) PLATELET COUNT (BEAKER) (test qvmt=132) 57 K/CU MM 150-450 MEAN PLATELET VOLUME (BEAKER) (test ides=312) 10.6 fL 9.4-12.4 NUCLEATED RED BLOOD CELLS (BEAKER) (test 0 /100 WBC 0-0 jfhe=427) NEUTROPHILS RELATIVE PERCENT (BEAKER) (test 64 % fntr=884) LYMPHOCYTES RELATIVE PERCENT (BEAKER) (test 15 % prgt=470) MONOCYTES RELATIVE PERCENT (BEAKER) (test 16 % mvzi=125) EOSINOPHILS RELATIVE PERCENT (BEAKER) (test 5 % trmj=194) BASOPHILS RELATIVE PERCENT (BEAKER) (test 1 % jcno=138) NEUTROPHILS ABSOLUTE COUNT (BEAKER) (test 3.26 K/ L 1.78-5.38 nvef=851) LYMPHOCYTES ABSOLUTE COUNT (BEAKER) (test 0.76 K/ L 1.32-3.57 mzsp=064) MONOCYTES ABSOLUTE COUNT (BEAKER) (test ujid=601) 0.80 K/ L 0.30-0.82 EOSINOPHILS ABSOLUTE COUNT (BEAKER) (test 0.23 K/ L 0.04-0.54 jppm=981) BASOPHILS ABSOLUTE COUNT (BEAKER) (test xmzc=336) 0.05 K/ L 0.01-0.08 IMMATURE GRANULOCYTES-RELATIVE PERCENT (BEAKER) 0 % 0-1 (test tack=9902) PROTHROMBIN [id number] 07:02:00 Test Item Value Reference Range Comments PROTIME (BEAKER) (test uaqn=527) 31.5 seconds 11.9-14.2 INR (BEAKER) (test ucis=339) 3.3 <=5.9 Effective 10/09/2018: PT Reference Range ChangeNew: 11.9-14.2 Previous: 11.7- 14.7RECOMMENDED COUMADIN/WARFARIN INR THERAPY RANGESSTANDARD DOSE: 2.0-3.0 Includes: PROPHYLAXIS for venous thrombosis, systemic embolization; TREATMENT for venous thrombosis and/or pulmonary embolus.HIGH RISK: Target INR is2.5-3.5 for patients wiht mechanical heart valves.POCT-GLUCOSE [id number] 08:51:00 Test Item Value Reference Range Comments POC-GLUCOSE METER (BEAKER) 126 mg/dL 70-[address] [facility] [address] (test decm=1622) [facility] [address] BASIC METABOLIC [id number] 04:49:00 Test Item Value Reference Range Comments SODIUM (BEAKER) (test 152 meq/L 136-145 oevh=310) POTASSIUM (BEAKER) (test 2.8 meq/L 3.5-5.1 bhxf=080) CHLORIDE (BEAKER) (test 126 meq/L 98-107 ceej=672) CO2 (BEAKER) (test 22 meq/L 22-29 isuj=657) BLOOD UREA NITROGEN 10 mg/dL 7-21 (BEAKER) (test cumd=234) CREATININE (BEAKER) (test 1.04 mg/dL 0.57-1.25 amnk=731) GLUCOSE RANDOM (BEAKER) 113 mg/dL 70-105 (test glpl=583) CALCIUM (BEAKER) (test 10.1 mg/dL 8.4-10.2 lsgx=826) EGFR (BEAKER) (test 75 mL/min/1.73 sq m ESTIMATED GFR IS NOT hoco=2741) ACCURATE CREATININE CLEARANCE IN PREDICTING GLOMERULAR FILTRATION RATE. ESTIMATED GFR IS NOT APPLICABLE FOR DIALYSIS PATIENTS. Specimen markedly ictericHEPATIC FUNCTION [id number] 04:11:00 Test Item Value Reference Range Comments TOTAL PROTEIN (BEAKER) (test eccy=734) 7.5 gm/dL 6.0-8.3 ALBUMIN (BEAKER) (test yyai=9588) 2.3 g/dL 3.5-5.0 BILIRUBIN TOTAL (BEAKER) (test biwd=163) 13.4 mg/dL 0.2-1.2 BILIRUBIN DIRECT (BEAKER) (test tuja=400) 8.0 mg/dL 0.1-0.5 ALKALINE PHOSPHATASE (BEAKER) (test xefd=874) 172 U/L 40-150 AST (SGOT) (BEAKER) (test bixn=351) 98 U/L 5-34 ALT (SGPT) (BEAKER) (test khpd=480) 49 U/L 6-55 Specimen markedly ictericPROTHROMBIN [id number] 03:51:00 Test Item Value Reference Range Comments PROTIME (BEAKER) (test pozs=879) 30.0 seconds 11.9-14.2 INR (BEAKER) (test chjv=746) 3.0 <=5.9 Effective 10/09/2018: PT Reference Range ChangeNew: 11.9-14.2 Previous: 11.7- 14.7RECOMMENDED COUMADIN/WARFARIN INR THERAPY RANGESSTANDARD DOSE: 2.0-3.0 Includes: PROPHYLAXIS for venous thrombosis, systemic embolization; TREATMENT for venous thrombosis and/or pulmonary embolus.HIGH RISK: Target INR is2.5-3.5 for patients wiht mechanical heart valves.CBC W/PLT COUNT & AUTO [id number] 03:49:00 Test Item Value Reference Range Comments WHITE BLOOD CELL COUNT (BEAKER) (test hpbz=280) 4.9 K/ L 3.5-10.5 RED BLOOD CELL COUNT (BEAKER) (test lxna=284) 2.66 M/ L 4.63-6.08 HEMOGLOBIN (BEAKER) (test gmpd=285) 9.7 GM/DL 13.7-17.5 HEMATOCRIT (BEAKER) (test wdlq=812) 30.3 % 40.1-51.0 MEAN CORPUSCULAR VOLUME (BEAKER) (test ajwg=456) 113.9 fL 79.0-92.2 MEAN CORPUSCULAR HEMOGLOBIN (BEAKER) (test 36.5 pg 25.7-32.2 blpj=299) MEAN CORPUSCULAR HEMOGLOBIN CONC (BEAKER) (test 32.0 GM/DL 32.3-36.5 ycod=886) RED CELL DISTRIBUTION WIDTH (BEAKER) (test 27.6 % 11.6-14.4 mqei=806) PLATELET COUNT (BEAKER) (test cvxy=574) 62 K/CU MM 150-450 MEAN PLATELET VOLUME (BEAKER) (test ecwg=507) 11.0 fL 9.4-12.4 NUCLEATED RED BLOOD CELLS (BEAKER) (test 0 /100 WBC 0-0 cxlx=787) NEUTROPHILS RELATIVE PERCENT (BEAKER) (test 68 % kuxr=983) LYMPHOCYTES RELATIVE PERCENT (BEAKER) (test 16 % duez=448) MONOCYTES RELATIVE PERCENT (BEAKER) (test 13 % frme=272) EOSINOPHILS RELATIVE PERCENT (BEAKER) (test 3 % bxmo=516) BASOPHILS RELATIVE PERCENT (BEAKER) (test 1 % gnsy=262) NEUTROPHILS ABSOLUTE COUNT (BEAKER) (test 3.30 K/ L 1.78-5.38 wlor=538) LYMPHOCYTES ABSOLUTE COUNT (BEAKER) (test 0.77 K/ L 1.32-3.57 oixe=655) MONOCYTES ABSOLUTE COUNT (BEAKER) (test fsmj=822) 0.62 K/ L 0.30-0.82 EOSINOPHILS ABSOLUTE COUNT (BEAKER) (test 0.13 K/ L 0.04-0.54 hgul=714) BASOPHILS ABSOLUTE COUNT (BEAKER) (test wyyh=117) 0.03 K/ L 0.01-0.08 IMMATURE GRANULOCYTES-RELATIVE PERCENT (BEAKER) 1 % 0-1 (test gurp=4060) POCT-GLUCOSE [id number] 00:48:00 Test Item Value Reference Range Comments POC-GLUCOSE METER (BEAKER) 114 mg/dL 70-[address] [facility] [address] [facility] (test iujc=5333) [facility] [address] CT, BRAIN, WITHOUT [id number] 17:09:00Reason for exam:-> LethargicFINAL REPORT CT, BRAIN, WITHOUT CONTRAST INDICATION: LethargicLethargic TECHNIQUE: Noncontrast axial imaging was obtained from the vertex to the skull base. Axial images were reconstructed using a bone algorithm. DOSE REDUCTION: Dose modulation, iterative reconstruction, and/or weight-based adjustment of the mA/kV was utilized to reduce the radiation dose to as low as reasonably achievable. COMPARISON: CT FINDINGS: Intracranial: Mild generalized volume loss. No intracranial hemorrhage or abnormal extra-axial collection. No evidence of acute territorial infarct. No mass effect. No hydrocephalus. Osseous structures: No fracture. No suspicious lesion. Paranasal sinuses and mastoid air cells: No evidence of sinusitis. Mastoids are clear. Orbital contents: Globes are intact. IMPRESSION: No acute intracranial abnormality. If there is persistent clinical concern for intracranial pathology, MR examination is recommended for further characterization. Signed: Anayeli Al Verified Date/Time: 2018 17:09:23 Electronically signed by: ANAYELI AL MD on 2018 05:09 PMMISCELLANEOUS LAB [id number] 07:34:00 Test Item Value Reference Range Comments SCAN RESULT (test akwx=[id number]) CBC W/PLT COUNT & AUTO [id number] 05:22:00 Test Item Value Reference Range Comments WHITE BLOOD CELL COUNT (BEAKER) (test xplp=774) 5.1 K/ L 3.5-10.5 RED BLOOD CELL COUNT (BEAKER) (test qsjg=210) 2.45 M/ L 4.63-6.08 HEMOGLOBIN (BEAKER) (test xakk=824) 9.0 GM/DL 13.7-17.5 HEMATOCRIT (BEAKER) (test otdt=789) 27.9 % 40.1-51.0 MEAN CORPUSCULAR VOLUME (BEAKER) (test jtzc=850) 113.9 fL 79.0-92.2 MEAN CORPUSCULAR HEMOGLOBIN (BEAKER) (test 36.7 pg 25.7-32.2 vlqy=556) MEAN CORPUSCULAR HEMOGLOBIN CONC (BEAKER) (test 32.3 GM/DL 32.3-36.5 joux=218) RED CELL DISTRIBUTION WIDTH (BEAKER) (test 27.3 % 11.6-14.4 eqzf=968) PLATELET COUNT (BEAKER) (test ohew=493) 66 K/CU MM 150-450 MEAN PLATELET VOLUME (BEAKER) (test nqma=128) 10.4 fL 9.4-12.4 NUCLEATED RED BLOOD CELLS (BEAKER) (test 0 /100 WBC 0-0 asvc=304) NEUTROPHILS RELATIVE PERCENT (BEAKER) (test 69 % zrma=197) LYMPHOCYTES RELATIVE PERCENT (BEAKER) (test 15 % dgjo=870) MONOCYTES RELATIVE PERCENT (BEAKER) (test 12 % podf=497) EOSINOPHILS RELATIVE PERCENT (BEAKER) (test 3 % waqb=937) BASOPHILS RELATIVE PERCENT (BEAKER) (test 0 % hsgw=996) NEUTROPHILS ABSOLUTE COUNT (BEAKER) (test 3.56 K/ L 1.78-5.38 pnft=854) LYMPHOCYTES ABSOLUTE COUNT (BEAKER) (test 0.75 K/ L 1.32-3.57 ogpb=997) MONOCYTES ABSOLUTE COUNT (BEAKER) (test fgnm=428) 0.59 K/ L 0.30-0.82 EOSINOPHILS ABSOLUTE COUNT (BEAKER) (test 0.17 K/ L 0.04-0.54 jjqq=075) BASOPHILS ABSOLUTE COUNT (BEAKER) (test lxyd=834) 0.02 K/ L 0.01-0.08 IMMATURE GRANULOCYTES-RELATIVE PERCENT (BEAKER) 1 % 0-1 (test egal=5918) PROTHROMBIN [id number] 05:00:00 Test Item Value Reference Range Comments PROTIME (BEAKER) (test ulfk=283) 30.6 seconds 11.9-14.2 INR (BEAKER) (test zrfr=030) 3.1 <=5.9 Effective 10/09/2018: PT Reference Range ChangeNew: 11.9-14.2 Previous: 11.7- 14.7RECOMMENDED COUMADIN/WARFARIN INR THERAPY RANGESSTANDARD DOSE: 2.0-3.0 Includes: PROPHYLAXIS for venous thrombosis, systemic embolization; TREATMENT for venous thrombosis and/or pulmonary embolus.HIGH RISK: Target INR is2.5-3.5 for patients wiht mechanical heart valves.BASIC METABOLIC [id number] 04:47: 00 Test Item Value Reference Range Comments SODIUM (BEAKER) (test 147 meq/L 136-145 epsr=919) POTASSIUM (BEAKER) (test 3.9 meq/L 3.5-5.1 Specimen moderately bhdz=266) hemolyzed CHLORIDE (BEAKER) (test 122 meq/L 98-107 kbcz=533) CO2 (BEAKER) (test 19 meq/L 22-29 zbqq=878) BLOOD UREA NITROGEN 9 mg/dL 7-21 (BEAKER) (test njuu=112) CREATININE (BEAKER) (test 0.84 mg/dL 0.57-1.25 Specimen moderately ngja=981) hemolyzed GLUCOSE RANDOM (BEAKER) 116 mg/dL 70-105 (test aoxd=610) CALCIUM (BEAKER) (test 9.4 mg/dL 8.4-10.2 iuga=192) EGFR (BEAKER) (test 96 mL/min/1.73 sq m ESTIMATED GFR IS NOT sxjg=0104) ACCURATE CREATININE CLEARANCE IN PREDICTING GLOMERULAR FILTRATION RATE. ESTIMATED GFR IS NOT APPLICABLE FOR DIALYSIS PATIENTS. Specimen markedly [id number] 04:46:00 Test Item Value Reference Range Comments MAGNESIUM (BEAKER) (test 1.7 mg/dL 1.6-2.6 Specimen moderately hemolyzed idsu=694) [id number] 04:46:00 Test Item Value Reference Range Comments PHOSPHORUS (BEAKER) (test 2.3 mg/dL 2.3-4.7 Specimen moderately hemolyzed qqgv=847) HEPATIC FUNCTION [id number] 04:46:00 Test Item Value Reference Range Comments TOTAL PROTEIN (BEAKER) (test 7.5 gm/dL 6.0-8.3 Specimen moderately jzep=170) hemolyzed ALBUMIN (BEAKER) (test 2.3 g/dL 3.5-5.0 Specimen moderately qomv=7654) hemolyzed BILIRUBIN TOTAL (BEAKER) (test 14.4 mg/dL 0.2-1.2 Specimen moderately ulix=658) hemolyzed BILIRUBIN DIRECT (BEAKER) 8.4 mg/dL 0.1-0.5 Specimen moderately (test uoln=718) hemolyzed ALKALINE PHOSPHATASE (BEAKER) 134 U/L 40-150 (test ymwh=715) AST (SGOT) (BEAKER) (test 89 U/L 5-34 Specimen moderately nmzo=558) hemolyzed ALT (SGPT) (BEAKER) (test 41 U/L 6-55 Specimen moderately jply=519) hemolyzed Specimen markedly ictericRAD, MANDIBLE, MIN 4 [id number] 01:52:00Reason for exam:->liver transplant evalShould this be performed at the bedside?-> YesFINAL REPORT RAD, MANDIBLE, MIN 4 VIEWS CLINICAL INDICATION: liver transplant eval COMPARISON: None FINDINGS/IMPRESSION: Five views of the mandible were obtained. There is an indwelling nasogastric tube. Bony mineralization is normal. There is no acute bony abnormality. There is no temporomandibular joint dislocation. The visualized paranasal sinuses and mastoid air cellsare clear. Signed: Karyn Bowden MDReport Verified Date/Time: 02/14/2019 01:52:48 Electronically signed by: KARYN BOWDEN MD on 01:52 AMCT, [id number] 17:50:00Is this for enterography?-> NoReason for exam:->abdominal painFINAL REPORT TECHNIQUE: CT of the abdomen and pelvis WITHOUT intravenous contrast and WITHOUT oral contrast. Dose modulation, iterative reconstruction, and/or weight- based adjustment of the mA/kV was utilized to reduce the radiation dose to as low as reasonably achievable. INDICATION: Abdominal pain, acute, nonlocalizedabdominal pain. COMPARISON: CT from 02/01/2018. FINDINGS: ABSENCE OF INTRAVENOUS CONTRAST DECREASES SENSITIVITY FOR DETECTION OF FOCAL LESIONS AND VASCULAR PATHOLOGY. LOWER THORAX: Small left pleural effusion. HEPATOBILIARY : Nodular, cirrhotic liver. Questionable layering hyperdense material in the gallbladder. No biliary ductal dilatation.SPLEEN: No splenomegaly.PANCREAS: No focal masses or ductal dilatation. ADRENALS: No adrenal nodules.KIDNEYS/URETERS : No hydronephrosis, stones, or exophytic masses.PELVIC ORGANS/BLADDER: Unremarkable. PERITONEUM/RETROPERITONEUM: Trace pelvic ascites.LYMPH NODES: No lymphadenopathy.VESSELS: A TIPS is in place. 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 Moderate calcification ofthe abdominal aorta. GI TRACT: Liquid stool throughout the colon. A feeding tube has its tip in the third portion of the duodenum. The appendix is normal. BONES AND SOFT TISSUES: Mild degenerative facet changes at L3-L4 and L4-L5. IMPRESSION: 1.The questionable layering hyperdense material in the gallbladder could be due to motion artifact or cholelithiasis/sludge. The gallbladder distention is nonspecific and can be due to fasting. The mild gallbladder wall thickening may be due to the adjacent cirrhosis. Consider an ultrasound for further evaluation. 2.A TIPS is in place. A hypodensity extendingfrom the TIPS is most likely an occluded right hepatic vein. 3.The liquid stool in the colon could be due to lactulose use or a diarrheal illness. 4.Small left pleural effusion. 5.Trace pelvic ascites.Signed: Estuardo Mondragon MDReport Verified Date/Time : 02/13/2019 17:50:20 Reading Location: [address] Body Reading Room CYTOMEGALOVIRUS ANTIBODY, [id number] 14:06:00 Test Item Value Reference Range Comments CYTOMEGALOVIRUS, IGG (BEAKER) (test uxoz=7016) Positive Negative, Equivocal CMV IgG Result Interpretation: </=0.8 Al Negative 0.9-1.0 Al Equivocal &gt ;/=1.1 Al PositiveRUBELLA ANTIBODY, [id number] 14:06:00 Test Item Value Reference Range Comments RUBELLA IGG QUANTITATION (BEAKER) (test ubzx=986) 73.0 IU/mL <8.0 Rubella IgG Result Interpretation: </=7.0 IU/mL Negative - Presumed non- immune 8.0 - 9.9 IU/mL Equivocal >=10.0 IU/mL Positive - Presumed immuneLACTIC ACID, [id number] 13:56:00 Test Item Value Reference Range Comments LACTATE BLOOD VENOUS (2) 1.7 mmol/L 0.5-2.2 Specimen markedly hemolyzed (BEAKER) (test kuae=1455) Specimen markedly ictericCYTOMEGALOVIRUS ANTIBODY, [id number] 11:45:00 Test Item Value Reference Range Comments CYTOMEGALOVIRUS IGM ANTIBODY (BEAKER) (test Negative Negative, Equivocal gfyf=7900) CMV IgM Result Interpretation: </=0.8 Al Negative 0.9-1.0 Al Equivocal >/=1.1 Al PositiveEBV ANTIBODY, [id number] 11:45:00 Test Item Value Reference Range Comments FEROZ FREIRE VIRAL CAPSID ANTIGEN IGG (BEAKER) Positive Negative, Equivocal (test nqsu=3875) Feroz Freire Viral Capsid Antigen IgG Result Interpretation: </=0.8 Al Negative 0.9-1.0 Al Equivocal >/=1.1 Al PositiveEBV ANTIBODY, [id number] 11:45:00 Test Item Value Reference Range Comments FEROZ FREIRE VIRAL CAPSID ANTIGEN IGM (BEAKER) Negative Negative, Equivocal (test igra=6195) Feroz Freire Viral Capsid Antigen IgM Result Interpretation: </=0.8 Al Negative 0.9-1.0 Al Equivocal >/=1.1 Al PositiveVARICELLA ZOSTER ANTIBODY , [id number] 11:45:00 Test Item Value Reference Range Comments VARICELLA ZOSTER IGG (AL) (BEAKER) (test qkjs=3332) 7.3 VARICELLA ZOSTER RESULT INTERPRETATIONS: <=0.8 Al Nonreactive: Presumed non-immune to VZV 0.9-1.0 Al Equivocal >=1.1 Al Reactive: Presumed immune to VZVHEPATIC FUNCTION [id number] 10:22:00 Test Item Value Reference Range Comments TOTAL PROTEIN (BEAKER) (test wngt=436) 6.9 gm/dL 6.0-8.3 ALBUMIN (BEAKER) (test mysz=9251) 2.2 g/dL 3.5-5.0 BILIRUBIN TOTAL (BEAKER) (test ulid=836) 15.2 mg/dL 0.2-1.2 BILIRUBIN DIRECT (BEAKER) (test lyvv=253) 8.7 mg/dL 0.1-0.5 ALKALINE PHOSPHATASE (BEAKER) (test dajk=109) 134 U/L 40-150 AST (SGOT) (BEAKER) (test ikoy=169) 66 U/L 5-34 ALT (SGPT) (BEAKER) (test gnmx=146) 45 U/L 6-55 Specimen markedly [id number] 09:16:00 Test Item Value Reference Range Comments AMMONIA (BEAKER) (test yzhf=442) 140 mol/L 18-72 [id number] 08:05:00 Test Item Value Reference Range Comments T3 TOTAL (BEAKER) (test tyue=637) 46 ng/dL 48-159 Reference range 76-181 ng/dl PER [facility] [id number] 04:37 :00 Test Item Value Reference Range Comments PHOSPHORUS (BEAKER) (test vkxx=726) 1.9 mg/dL 2.3-4.7 [id number] 04:37:00 Test Item Value Reference Range Comments MAGNESIUM (BEAKER) (test iamk=342) 1.6 mg/dL 1.6-2.6 BASIC METABOLIC [id number] 04:37:00 Test Item Value Reference Range Comments SODIUM (BEAKER) (test 143 meq/L 136-145 ttyz=157) POTASSIUM (BEAKER) (test 3.0 meq/L 3.5-5.1 udaw=390) CHLORIDE (BEAKER) (test 120 meq/L 98-107 ublu=014) CO2 (BEAKER) (test 18 meq/L 22-29 wamj=263) BLOOD UREA NITROGEN 6 mg/dL 7-21 (BEAKER) (test xwpx=406) CREATININE (BEAKER) (test 1.01 mg/dL 0.57-1.25 eszd=540) GLUCOSE RANDOM (BEAKER) 101 mg/dL 70-105 (test rtkf=764) CALCIUM (BEAKER) (test 9.4 mg/dL 8.4-10.2 pzdi=815) EGFR (BEAKER) (test 78 mL/min/1.73 sq m ESTIMATED GFR IS NOT xxcl=2047) ACCURATE CREATININE CLEARANCE IN PREDICTING GLOMERULAR FILTRATION RATE. ESTIMATED GFR IS NOT APPLICABLE FOR DIALYSIS PATIENTS. Specimen markedly ictericPROTHROMBIN TIME/[id number] 04:28:00 Test Item Value Reference Range Comments PROTIME (BEAKER) (test urhm=234) 30.0 seconds 11.9-14.2 INR (BEAKER) (test hbba=324) 3.1 <=5.9 Effective 10/09/2018: PT Reference Range ChangeNew: 11.9-14.2 Previous: 11.7- 14.7RECOMMENDED COUMADIN/WARFARIN INR THERAPY RANGESSTANDARD DOSE: 2.0-3.0 Includes: PROPHYLAXIS for venous thrombosis, systemic embolization; TREATMENT for venous thrombosis and/or pulmonary embolus.HIGH RISK: Target INR is2.5-3.5 for patients wiht mechanical heart valves.CBC W/PLT COUNT & AUTO [id number] 04:16:00 Test Item Value Reference Range Comments WHITE BLOOD CELL COUNT (BEAKER) (test fkii=482) 5.1 K/ L 3.5-10.5 RED BLOOD CELL COUNT (BEAKER) (test cnph=238) 2.43 M/ L 4.63-6.08 HEMOGLOBIN (BEAKER) (test upie=297) 8.7 GM/DL 13.7-17.5 HEMATOCRIT (BEAKER) (test qvsv=107) 26.5 % 40.1-51.0 MEAN CORPUSCULAR VOLUME (BEAKER) (test aell=809) 109.1 fL 79.0-92.2 MEAN CORPUSCULAR HEMOGLOBIN (BEAKER) (test 35.8 pg 25.7-32.2 iivt=464) MEAN CORPUSCULAR HEMOGLOBIN CONC (BEAKER) (test 32.8 GM/DL 32.3-36.5 qnro=078) RED CELL DISTRIBUTION WIDTH (BEAKER) (test 26.3 % 11.6-14.4 awqi=393) PLATELET COUNT (BEAKER) (test lhfy=219) 67 K/CU MM 150-450 MEAN PLATELET VOLUME (BEAKER) (test xgve=174) 10.5 fL 9.4-12.4 NUCLEATED RED BLOOD CELLS (BEAKER) (test 0 /100 WBC 0-0 qxyc=133) NEUTROPHILS RELATIVE PERCENT (BEAKER) (test 75 % uhtj=574) LYMPHOCYTES RELATIVE PERCENT (BEAKER) (test 11 % wmjx=169) MONOCYTES RELATIVE PERCENT (BEAKER) (test 10 % vyll=027) EOSINOPHILS RELATIVE PERCENT (BEAKER) (test 4 % ltkq=481) BASOPHILS RELATIVE PERCENT (BEAKER) (test 0 % aymy=865) NEUTROPHILS ABSOLUTE COUNT (BEAKER) (test 3.80 K/ L 1.78-5.38 dcef=589) LYMPHOCYTES ABSOLUTE COUNT (BEAKER) (test 0.57 K/ L 1.32-3.57 bttg=703) MONOCYTES ABSOLUTE COUNT (BEAKER) (test qmlm=959) 0.50 K/ L 0.30-0.82 EOSINOPHILS ABSOLUTE COUNT (BEAKER) (test 0.18 K/ L 0.04-0.54 gsza=988) BASOPHILS ABSOLUTE COUNT (BEAKER) (test mgga=018) 0.02 K/ L 0.01-0.08 IMMATURE GRANULOCYTES-RELATIVE PERCENT (BEAKER) 1 % 0-1 (test bfkp=3459) POCT-GLUCOSE [id number] 03:54:00 Test Item Value Reference Range Comments POC-GLUCOSE METER (BEAKER) 108 mg/dL 70-[address] [facility] [address] [facility] (test exkh=2026) [facility] [id number] RAD, ABDOMEN/KUB, 1 VIEW [id number] 00:58:00Reason for exam:->Coretrak placementShould this be performed at the bedside?->YesFINAL REPORT Abdomen one view Comparison: Abdominal radiograph 02/12/2019. Reason for exam: Coretrak placement Findings/impression: Supine view of the abdomen demonstrates a feeding tube with tip in the first portion of the duodenum. There are no dilated bowel loops. A TIPS stent is present. The visualized lung bases are clear. The visualized osseous structures are unremarkable. Signed: Karyn Bowden MDReport Verified Date/Time: 02/13/2019 00: 58:21 12: 58 AMRAD, CHEST, 1 VIEW, NON [id number] 18:57:00Reason for exam:-> evaluate for infection, altered mental status, confusionShould this be performed at the bedside?->YesFINAL REPORT Chest, one view. Abdomen one view HISTORY: evaluate for infection, altered mental status, confusion COMPARISON: Radiograph from 12/28/2018 IMPRESSION: Interstitial pulmonary edema. No pleural effusion or pneumothorax. A TIPS overlies the expected location. The cardiac silhouette is normal in size. No acute bony abnormality. There are prominent but nondistended of small bowel with gas in the colon. This a nonobstructive bowel gas pattern. However, ileus and enteritis are both possible. Signed: Estuardo Mondragon MDReport Verified Date/Time: 18:57:37 Reading Location: [address] Consult Reading Room RAD, ABDOMEN /KUB, 1 VIEW [id number] 18:57:00Reason for exam:->evaluate for constipation , abdominal distention, altered mental status, confusion, cirrhosisShould this be performed at the bedside?->YesFINAL REPORT Chest, one view. Abdomen one view HISTORY: evaluate for infection, altered mental status, confusion COMPARISON: Radiograph from 12/28/2018 IMPRESSION: Interstitial pulmonary edema. No pleural effusion or pneumothorax. A TIPS overlies the expected location. The cardiac silhouette is normal in size. No acute bony abnormality. There are prominent but nondistended of small bowel with gas in the colon. This a nonobstructive bowel gas pattern. However, ileus and enteritis are both possible. Signed: Estuardo Mondragon MDReport Verified Date/Time : 02/12/2019 18:57:37 Reading Location: [facility] [id number] Consult Reading Room URINALYSIS W / REFLEX URINE [id number] 16:56:00 Test Item Value Reference Range Comments COLOR (BEAKER) (test ulwu=308) Dark Yellow CLARITY (BEAKER) (test uhah=347) Hazy SPECIFIC GRAVITY UA (BEAKER) (test acze=586) 1.012 1.001-1.035 PH UA (BEAKER) (test ntdt=151) 7.0 5.0-8.0 PROTEIN UA (BEAKER) (test kmgp=546) Negative Negative GLUCOSE UA (BEAKER) (test zdaj=552) Negative Negative KETONES UA (BEAKER) (test mcnu=092) Trace Negative BILIRUBIN UA (BEAKER) (test xwsi=756) Positive Negative BLOOD UA (BEAKER) (test cxhn=079) Negative Negative NITRITE UA (BEAKER) (test leto=681) Negative Negative LEUKOCYTE ESTERASE UA (BEAKER) (test jgyc=231) Negative Negative UROBILINOGEN UA (BEAKER) (test wvnu=429) 2.0 mg/dL 0.2-1.0 RBC UA (BEAKER) (test mtxp=645) < /HPF WBC UA (BEAKER) (test vfei=649) 1 /HPF SQUAMOUS EPITHELIAL (BEAKER) (test sbtm=585) 1 /HPF SOURCE(BEAKER) (test pzsu=6675) [id number] 11:34:00 Test Item Value Reference Range Comments RPR SCREEN (BEAKER) (test kvsj=975) Nonreactive Nonreactive TAMAR TITER AND [id number] 09:52:00 Test Item Value Reference Range Comments TAMAR TITER (BEAKER) (test :160 jlfk=4896) TAMAR PATTERN (BEAKER) (test Atypical Speckled - uncertain nukc=7796) clinical significance, suggest TAMAR profile. ANTI-NUCLEAR ANTIBODY (TAMAR)2019-02-12 09:51:00 Test Item Value Reference Range Comments ANTI-NUCLEAR ANTIBODY (TAMAR) (BEAKER) (test Positive Negative mrmi=590) Test performed by IFA method.HEMOGLOBIN [id number] 09:22:00 Test Item Value Reference Range Comments HEMOGLOBIN A1C (BEAKER) (test ouel=980) 4.5 % 4.3-6.1 [id number] 07:32:00 Test Item Value Reference Range Comments PHOSPHORUS (BEAKER) (test vsmk=997) 2.3 mg/dL 2.3-4.7 [id number] 07:32:00 Test Item Value Reference Range Comments MAGNESIUM (BEAKER) (test fxyk=538) 1.6 mg/dL 1.6-2.6 BASIC METABOLIC [id number] 07:32:00 Test Item Value Reference Range Comments SODIUM (BEAKER) (test 137 meq/L 136-145 bqev=910) POTASSIUM (BEAKER) (test 3.0 meq/L 3.5-5.1 bvqa=175) CHLORIDE (BEAKER) (test 112 meq/L 98-107 mhpo=259) CO2 (BEAKER) (test 19 meq/L 22-29 pdlh=460) BLOOD UREA NITROGEN 5 mg/dL 7-21 (BEAKER) (test csjk=933) CREATININE (BEAKER) (test 1.22 mg/dL 0.57-1.25 hnyl=045) GLUCOSE RANDOM (BEAKER) 96 mg/dL 70-105 (test gcic=914) CALCIUM (BEAKER) (test 8.8 mg/dL 8.4-10.2 qzti=714) EGFR (BEAKER) (test 62 mL/min/1.73 sq m ESTIMATED GFR IS NOT hssb=1908) ACCURATE CREATININE CLEARANCE IN PREDICTING GLOMERULAR FILTRATION RATE. ESTIMATED GFR IS NOT APPLICABLE FOR DIALYSIS PATIENTS. Specimen markedly ictericHEPATIC FUNCTION [id number] 07:32:00 Test Item Value Reference Range Comments TOTAL PROTEIN (BEAKER) (test qclq=153) 7.1 gm/dL 6.0-8.3 ALBUMIN (BEAKER) (test ynqr=3024) 2.3 g/dL 3.5-5.0 BILIRUBIN TOTAL (BEAKER) (test bugw=533) 16.8 mg/dL 0.2-1.2 BILIRUBIN DIRECT (BEAKER) (test shpr=435) 9.8 mg/dL 0.1-0.5 ALKALINE PHOSPHATASE (BEAKER) (test vjfe=739) 147 U/L 40-150 AST (SGOT) (BEAKER) (test ysia=965) 67 U/L 5-34 ALT (SGPT) (BEAKER) (test ljtd=488) 47 U/L 6-55 Specimen markedly ictericPROTHROMBIN [id number] 06:26:00 Test Item Value Reference Range Comments PROTIME (BEAKER) (test hlde=899) 28.5 seconds 11.9-14.2 INR (BEAKER) (test wtag=434) 2.9 <=5.9 Effective 10/09/2018: PT Reference Range ChangeNew: 11.9-14.2 Previous: 11.7- 14.7RECOMMENDED COUMADIN/WARFARIN INR THERAPY RANGESSTANDARD DOSE: 2.0-3.0 Includes: PROPHYLAXIS for venous thrombosis, systemic embolization; TREATMENT for venous thrombosis and/or pulmonary embolus.HIGH RISK: Target INR is2.5-3.5 for patients wiht mechanical heart valves.CBC W/PLT COUNT & AUTO [id number] 06:21:00 Test Item Value Reference Range Comments WHITE BLOOD CELL COUNT (BEAKER) (test cswe=367) 4.4 K/ L 3.5-10.5 RED BLOOD CELL COUNT (BEAKER) (test xkuu=979) 2.33 M/ L 4.63-6.08 HEMOGLOBIN (BEAKER) (test awut=426) 8.5 GM/DL 13.7-17.5 HEMATOCRIT (BEAKER) (test urmq=820) 25.4 % 40.1-51.0 MEAN CORPUSCULAR VOLUME (BEAKER) (test vjix=559) 109.0 fL 79.0-92.2 MEAN CORPUSCULAR HEMOGLOBIN (BEAKER) (test 36.5 pg 25.7-32.2 xkkj=330) MEAN CORPUSCULAR HEMOGLOBIN CONC (BEAKER) (test 33.5 GM/DL 32.3-36.5 lxee=430) RED CELL DISTRIBUTION WIDTH (BEAKER) (test 26.3 % 11.6-14.4 ldaz=823) PLATELET COUNT (BEAKER) (test blmg=465) 60 K/CU MM 150-450 MEAN PLATELET VOLUME (BEAKER) (test vqdb=073) 10.8 fL 9.4-12.4 NUCLEATED RED BLOOD CELLS (BEAKER) (test 0 /100 WBC 0-0 cson=041) NEUTROPHILS RELATIVE PERCENT (BEAKER) (test 75 % zpvr=292) LYMPHOCYTES RELATIVE PERCENT (BEAKER) (test 13 % rlij=329) MONOCYTES RELATIVE PERCENT (BEAKER) (test 9 % kdne=557) EOSINOPHILS RELATIVE PERCENT (BEAKER) (test 3 % zyqo=448) BASOPHILS RELATIVE PERCENT (BEAKER) (test 0 % zitu=893) NEUTROPHILS ABSOLUTE COUNT (BEAKER) (test 3.28 K/ L 1.78-5.38 lnsg=581) LYMPHOCYTES ABSOLUTE COUNT (BEAKER) (test 0.55 K/ L 1.32-3.57 wxsy=598) MONOCYTES ABSOLUTE COUNT (BEAKER) (test prba=925) 0.38 K/ L 0.30-0.82 EOSINOPHILS ABSOLUTE COUNT (BEAKER) (test 0.13 K/ L 0.04-0.54 nyrw=380) BASOPHILS ABSOLUTE COUNT (BEAKER) (test kxmd=575) 0.01 K/ L 0.01-0.08 IMMATURE GRANULOCYTES-RELATIVE PERCENT (BEAKER) 1 % 0-1 (test bcre=1113) LIPID [id number] 19:54:00 Test Item Value Reference Range Comments TRIGLYCERIDES (BEAKER) (test bbqz=044) 52 mg/dL CHOLESTEROL (BEAKER) (test lvnh=029) 49 mg/dL HDL CHOLESTEROL (BEAKER) (test eepu=724) 15 mg/dL LDL CHOLESTEROL CALCULATED (BEAKER) (test ucyq=908) 24 mg/dL Triglyceride Reference Range: Low Risk <150 Borderline 150- 199 High Risk 200-499 Very High Risk >=500Cholesterol Reference Range: Low Risk <200 Borderline 200-239 High Risk > 240HDL Cholesterol Reference Range: Low Risk >=60 High Risk <40LDL Cholesterol Reference Range: Optimal <100 Near Optimal 100-129 Borderline 130-159 High 160-189 Very High >=190 Specimen markedly [id number] 19:52:00 Test Item Value Reference Range Comments MAGNESIUM (BEAKER) (test unfz=498) 1.6 mg/dL 1.6-2.6 URIC [id number] 19:52:00 Test Item Value Reference Range Comments URIC ACID (BEAKER) (test olvm=607) 2.7 mg/dL 2.6-7.2 Specimen markedly ictericGAMMA GLUTAMYL TRANSFERASE (GGT)2019-02-11 19:52:00 Test Item Value Reference Range Comments GAMMA GLUTAMYL TRANSFERASE (BEAKER) (test dtby=558) 73 U/L 9-64 Specimen markedly [id number] 19:09:00 Test Item Value Reference Range Comments PROSTATE SPECIFIC ANTIGEN (BEAKER) (test ifao=236) 0.2 ng/mL 0.0-4.0 CARCINOEMBRYONIC ANTIGEN (CEA)2019-02-11 19:09:00 Test Item Value Reference Range Comments CARCINOEMBRYONIC ANTIGEN (BEAKER) (test ajnw=737) 7.4 ng/mL 0.0-5.0 VITAMIN D, [id number] 19:00:00 Test Item Value Reference Range Comments VITAMIN D 25-OH (BEAKER) (test wbsw=6929) 6.2 ng/mL 6.6-49.9 Effective 02/21/2017: Reference Range ChangeNew: 6.6-49.9 ng/mL Previous: 13.0 -47.8 ng/mLRecommended Vitamin D Target Range: 30.0-40.0 ng/[id number] 18:48:00 Test Item Value Reference Range Comments AMMONIA (BEAKER) (test fjnu=502) 203 mol/L 18-72 [id number] 18:35:00 Test Item Value Reference Range Comments TRANSFERRIN (BEAKER) (test ezxc=598) 96 mg/dL 174-382 Specimen markedly jxkgudiTBRJS-5-[id number] 18:35:00 Test Item Value Reference Range Comments ALPHA-1 ANTITRYPSIN (BEAKER) (test xcvf=116) 97.70 mg/dL 90.00-200.00 [id number] 18:10:00 Test Item Value Reference Range Comments T4 TOTAL (BEAKER) (test aqjm=340) 4.1 ug/dL 4.9-11.7 [id number] 18:10:00 Test Item Value Reference Range Comments THYROID STIMULATING HORMONE (BEAKER) (test 1.72 uIU/mL 0.35-4.94 fvkj=303) [id number] 17:49:00 Test Item Value Reference Range Comments POTASSIUM (BEAKER) (test nkip=691) 3.0 meq/L 3.5-5.1 [id number] 17:49:00 Test Item Value Reference Range Comments PHOSPHORUS (BEAKER) (test xvca=164) 2.2 mg/dL 2.3-4.7 BILIRUBIN, [id number] 17:49:00 Test Item Value Reference Range Comments BILIRUBIN DIRECT (BEAKER) (test lfoe=128) 9.6 mg/dL 0.1-0.5 [id number] 17:47:00 Test Item Value Reference Range Comments ETHANOL (BEAKER) (test yljf=711) < mg/dL <=10 [id number] 15:40:00 Test Item Value Reference Range Comments FERRITIN (BEAKER) (test ahxe=180) 294 ng/mL 5-275 [id number] 11:27:00 Test Item Value Reference Range Comments AMYLASE (BEAKER) (test sywm=793) 32 U/L 25-125 Specimen markedly [id number] 11:27:00 Test Item Value Reference Range Comments LIPASE (BEAKER) (test uljw=068) 33 U/L 8-78 Specimen markedly ictericBASIC METABOLIC [id number] 07:16:00 Test Item Value Reference Range Comments SODIUM (BEAKER) (test 135 meq/L 136-145 xkwg=960) POTASSIUM (BEAKER) (test 2.6 meq/L 3.5-5.1 jelm=207) CHLORIDE (BEAKER) (test 111 meq/L 98-107 muha=940) CO2 (BEAKER) (test 20 meq/L 22-29 gkav=358) BLOOD UREA NITROGEN 5 mg/dL 7-21 (BEAKER) (test tmxm=697) CREATININE (BEAKER) (test 1.42 mg/dL 0.57-1.25 vaur=130) GLUCOSE RANDOM (BEAKER) 120 mg/dL 70-105 (test zgvf=105) CALCIUM (BEAKER) (test 8.1 mg/dL 8.4-10.2 mjui=893) EGFR (BEAKER) (test 52 mL/min/1.73 sq m ESTIMATED GFR IS NOT htfk=7955) ACCURATE CREATININE CLEARANCE IN PREDICTING GLOMERULAR FILTRATION RATE. ESTIMATED GFR IS NOT APPLICABLE FOR DIALYSIS PATIENTS. Specimen markedly ictericHEPATIC FUNCTION [id number] 06:55:00 Test Item Value Reference Range Comments TOTAL PROTEIN (BEAKER) (test hktq=797) 6.2 gm/dL 6.0-8.3 ALBUMIN (BEAKER) (test djwn=7100) 2.1 g/dL 3.5-5.0 BILIRUBIN TOTAL (BEAKER) (test gfme=679) 15.0 mg/dL 0.2-1.2 BILIRUBIN DIRECT (BEAKER) (test pczi=777) 8.7 mg/dL 0.1-0.5 ALKALINE PHOSPHATASE (BEAKER) (test ecwx=856) 133 U/L 40-150 AST (SGOT) (BEAKER) (test mmcd=969) 68 U/L 5-34 ALT (SGPT) (BEAKER) (test lzxe=369) 44 U/L 6-55 Specimen markedly ictericCBC W/PLT COUNT & AUTO [id number] 06:45 :00 Test Item Value Reference Range Comments WHITE BLOOD CELL COUNT (BEAKER) (test urri=726) 3.8 K/ L 3.5-10.5 RED BLOOD CELL COUNT (BEAKER) (test cwbd=106) 1.89 M/ L 4.63-6.08 HEMOGLOBIN (BEAKER) (test osdc=790) 7.0 GM/DL 13.7-17.5 HEMATOCRIT (BEAKER) (test kbgv=226) 20.9 % 40.1-51.0 MEAN CORPUSCULAR VOLUME (BEAKER) (test yyyl=571) 110.6 fL 79.0-92.2 MEAN CORPUSCULAR HEMOGLOBIN (BEAKER) (test 37.0 pg 25.7-32.2 xsnl=134) MEAN CORPUSCULAR HEMOGLOBIN CONC (BEAKER) (test 33.5 GM/DL 32.3-36.5 gevo=443) RED CELL DISTRIBUTION WIDTH (BEAKER) (test 25.2 % 11.6-14.4 sbse=937) PLATELET COUNT (BEAKER) (test icba=901) 56 K/CU MM 150-450 MEAN PLATELET VOLUME (BEAKER) (test smen=043) 11.6 fL 9.4-12.4 NUCLEATED RED BLOOD CELLS (BEAKER) (test 0 /100 WBC 0-0 hitb=784) NEUTROPHILS RELATIVE PERCENT (BEAKER) (test 73 % nkdu=202) LYMPHOCYTES RELATIVE PERCENT (BEAKER) (test 12 % jlyh=024) MONOCYTES RELATIVE PERCENT (BEAKER) (test 10 % grjd=530) EOSINOPHILS RELATIVE PERCENT (BEAKER) (test 4 % jlkv=353) BASOPHILS RELATIVE PERCENT (BEAKER) (test 0 % dbkk=772) NEUTROPHILS ABSOLUTE COUNT (BEAKER) (test 2.78 K/ L 1.78-5.38 srfn=668) LYMPHOCYTES ABSOLUTE COUNT (BEAKER) (test 0.47 K/ L 1.32-3.57 cbjz=020) MONOCYTES ABSOLUTE COUNT (BEAKER) (test qlwi=740) 0.37 K/ L 0.30-0.82 EOSINOPHILS ABSOLUTE COUNT (BEAKER) (test 0.14 K/ L 0.04-0.54 pvfx=476) BASOPHILS ABSOLUTE COUNT (BEAKER) (test njis=549) 0.01 K/ L 0.01-0.08 IMMATURE GRANULOCYTES-RELATIVE PERCENT (BEAKER) 1 % 0-1 (test uruv=3444) PROTHROMBIN [id number] 06:36:00 Test Item Value Reference Range Comments PROTIME (BEAKER) (test kgwn=420) 26.6 seconds 11.9-14.2 INR (BEAKER) (test aazt=296) 2.6 <=5.9 Effective 10/09/2018: PT Reference Range ChangeNew: 11.9-14.2 Previous: 11.7- 14.7RECOMMENDED COUMADIN/WARFARIN INR THERAPY RANGESSTANDARD DOSE: 2.0-3.0 Includes: PROPHYLAXIS for venous thrombosis, systemic embolization; TREATMENT for venous thrombosis and/or pulmonary embolus.HIGH RISK: Target INR is2.5-3.5 for patients wiht mechanical heart valves.CBC W/PLT COUNT & AUTO [id number] 13:17:00 Test Item Value Reference Range Comments WHITE BLOOD CELL COUNT (BEAKER) (test ysyh=827) 3.3 K/ L 3.5-10.5 RED BLOOD CELL COUNT (BEAKER) (test udeh=768) 1.81 M/ L 4.63-6.08 HEMOGLOBIN (BEAKER) (test bvpt=194) 6.7 GM/DL 13.7-17.5 HEMATOCRIT (BEAKER) (test iulz=387) 20.3 % 40.1-51.0 MEAN CORPUSCULAR VOLUME (BEAKER) (test raik=596) 112.2 fL 79.0-92.2 MEAN CORPUSCULAR HEMOGLOBIN (BEAKER) (test 37.0 pg 25.7-32.2 habn=998) MEAN CORPUSCULAR HEMOGLOBIN CONC (BEAKER) (test 33.0 GM/DL 32.3-36.5 bfon=008) RED CELL DISTRIBUTION WIDTH (BEAKER) (test 21.8 % 11.6-14.4 cbml=018) PLATELET COUNT (BEAKER) (test ebdh=246) 36 K/CU MM 150-450 MEAN PLATELET VOLUME (BEAKER) (test axza=831) 12.7 fL 9.4-12.4 NUCLEATED RED BLOOD CELLS (BEAKER) (test 0 /100 WBC 0-0 icaw=694) (CELLAVISION MANUAL DIFF)2019-02-10 13:17:00 Test Item Value Reference Range Comments NEUTROPHILS - REL (CELLAVISION)(BEAKER) (test 88 % idac=3506) LYMPHOCYTES - REL (CELLAVISION)(BEAKER) (test 6 % uhki=2312) MONOCYTES - REL (CELLAVISION)(BEAKER) (test 2 % iwpf=8017) EOSINOPHILS - REL (CELLAVISION)(BEAKER) (test 4 % cxif=3000) NEUTROPHILS - ABS (CELLAVISION)(BEAKER) (test 2.90 K/ul 1.78-5.38 amvw=1675) LYMPHOCYTES - ABS (CELLAVISION)(BEAKER) (test 0.20 K/ul 1.32-3.57 ytbx=0507) MONOCYTES - ABS (CELLAVISION)(BEAKER) (test 0.07 K/uL 0.30-0.82 wjky=3505) EOSINOPHILS - ABS (CELLAVISION)(BEAKER) (test 0.13 K/uL 0.04-0.54 ejiw=5792) TOTAL COUNTED (BEAKER) (test ixwo=5638) 100 WBC MORPHOLOGY (BEAKER) (test ktbv=431) Normal PLT MORPHOLOGY (BEAKER) (test xrxe=269) Normal POLYCHROMATOPHILLIC RBCS(BEAKER) (test wbrf=817) 1+ few HYPOCHROMIA (BEAKER) (test egey=479) 2+ moderate ANISOCYTOSIS (BEAKER) (test vcwf=019) 2+ moderate MACROCYTES (BEAKER) (test nlim=308) 2+ moderate SCHISTOCYTES (BEAKER) (test bcci=800) 2+ moderate ELLIPTOCYTES (BEAKER) (test rata=169) 1+ few ARTIFACT (CELLAVISION)(BEAKER) (test iaoy=2749) Present PLATELET CONCENTRATION (CELLAVISION)(BEAKER) Decreased (test cpdd=3646) Received comment: User comments: Slide comments:[id number] 08:00:00 Test Item Value Reference Range Comments MAGNESIUM (BEAKER) (test uetd=513) 1.5 mg/dL 1.6-2.6 HEPATIC FUNCTION [id number] 06:12:00 Test Item Value Reference Range Comments TOTAL PROTEIN (BEAKER) (test tkdd=126) 6.1 gm/dL 6.0-8.3 ALBUMIN (BEAKER) (test yozk=7860) 2.0 g/dL 3.5-5.0 BILIRUBIN TOTAL (BEAKER) (test psei=779) 14.9 mg/dL 0.2-1.2 BILIRUBIN DIRECT (BEAKER) (test zuhn=674) 8.2 mg/dL 0.1-0.5 ALKALINE PHOSPHATASE (BEAKER) (test pmpa=101) 132 U/L 40-150 AST (SGOT) (BEAKER) (test rnga=212) 91 U/L 5-34 ALT (SGPT) (BEAKER) (test ojmu=477) 48 U/L 6-55 Specimen markedly ictericCOMPREHENSIVE METABOLIC [id number] 06:10:00 Test Item Value Reference Range Comments TOTAL PROTEIN (BEAKER) 6.1 gm/dL 6.0-8.3 (test xxtm=507) ALBUMIN (BEAKER) (test 2.0 g/dL 3.5-5.0 hvzu=4909) ALKALINE PHOSPHATASE 132 U/L 40-150 (BEAKER) (test rzri=557) BILIRUBIN TOTAL (BEAKER) 14.9 mg/dL 0.2-1.2 (test pcrm=650) SODIUM (BEAKER) (test 134 meq/L 136-145 dobi=204) POTASSIUM (BEAKER) (test 2.4 meq/L 3.5-5.1 oyyz=622) CHLORIDE (BEAKER) (test 111 meq/L 98-107 epfz=252) CO2 (BEAKER) (test 18 meq/L 22-29 lzsu=135) BLOOD UREA NITROGEN 6 mg/dL 7-21 (BEAKER) (test yevk=164) CREATININE (BEAKER) (test 1.44 mg/dL 0.57-1.25 gqlr=023) GLUCOSE RANDOM (BEAKER) 82 mg/dL 70-105 (test xsok=554) CALCIUM (BEAKER) (test 7.9 mg/dL 8.4-10.2 rxnd=071) AST (SGOT) (BEAKER) (test 91 U/L 5-34 cytd=666) ALT (SGPT) (BEAKER) (test 48 U/L 6-55 pkak=511) EGFR (BEAKER) (test 52 mL/min/1.73 sq m ESTIMATED GFR IS NOT hzjw=4695) ACCURATE CREATININE CLEARANCE IN PREDICTING GLOMERULAR FILTRATION RATE. ESTIMATED GFR IS NOT APPLICABLE FOR DIALYSIS PATIENTS. Specimen markedly ictericPROTHROMBIN [id number] 05:29:00 Test Item Value Reference Range Comments PROTIME (BEAKER) (test cots=854) 38.8 seconds 11.9-14.2 INR (BEAKER) (test rcsr=664) 4.3 <=5.9 Effective 10/09/2018: PT Reference Range ChangeNew: 11.9-14.2 Previous: 11.7- 14.7RECOMMENDED COUMADIN/WARFARIN INR THERAPY RANGESSTANDARD DOSE: 2.0-3.0 Includes: PROPHYLAXIS for venous thrombosis, systemic embolization; TREATMENT for venous thrombosis and/or pulmonary embolus.HIGH RISK: Target INR is2.5-3.5 for patients wiht mechanical heart valves.HEMOGLOBIN AND [id number] 20 :34:00 Test Item Value Reference Range Comments HEMOGLOBIN (BEAKER) (test xqpq=910) 6.4 GM/DL 13.7-17.5 HEMATOCRIT (BEAKER) (test ikfl=819) 19.5 % 40.1-51.0 URINALYSIS WITH MICROSCOPIC IF [id number] 15:18:00 Test Item Value Reference Range Comments COLOR (BEAKER) (test olvu=607) Dark Yellow CLARITY (BEAKER) (test wfgk=407) Clear SPECIFIC GRAVITY UA (BEAKER) (test tfuh=965) 1.014 1.001-1.035 PH UA (BEAKER) (test vggr=877) 6.5 5.0-8.0 PROTEIN UA (BEAKER) (test pwdh=565) Negative Negative GLUCOSE UA (BEAKER) (test szji=344) Negative Negative KETONES UA (BEAKER) (test xpjo=522) Negative Negative BILIRUBIN UA (BEAKER) (test jqkj=520) Positive Negative BLOOD UA (BEAKER) (test mfvh=790) Negative Negative NITRITE UA (BEAKER) (test qxeg=803) Negative Negative LEUKOCYTE ESTERASE UA (BEAKER) (test scks=491) Negative Negative UROBILINOGEN UA (BEAKER) (test vtqw=857) 0.2 mg/dL 0.2-1.0 SOURCE(BEAKER) (test ccus=8609) VITAMIN B12 AND [id number] 13:44:00 Test Item Value Reference Range Comments VITAMIN B12 (BEAKER) (test cijg=696) 1967 pg/mL 213-816 FOLATE (BEAKER) (test rnje=332) 18.6 ng/mL >=7.0 IRON, TIBC, % SAT. (WITHOUT FERRITIN)2019-02-09 13:07:00 Test Item Value Reference Range Comments IRON (BEAKER) (test gpll=320) 105.0 ug/dL 40.0-160.0 TOTAL IRON BINDING CAPACITY (BEAKER) (test 96 ug/dL 250-450 welx=884) IRON % SATURATION (2) (BEAKER) (test shji=7079) 109 % 20-55 PROTHROMBIN [id number] 10:59:00 Test Item Value Reference Range Comments PROTIME (BEAKER) (test oxhy=208) 38.0 seconds 11.9-14.2 INR (BEAKER) (test swnl=776) 4.2 <=5.9 Effective 10/09/2018: PT Reference Range ChangeNew: 11.9-14.2 Previous: 11.7- 14.7RECOMMENDED COUMADIN/WARFARIN INR THERAPY RANGESSTANDARD DOSE: 2.0-3.0 Includes: PROPHYLAXIS for venous thrombosis, systemic embolization; TREATMENT for venous thrombosis and/or pulmonary embolus.HIGH RISK: Target INR is2.5-3.5 for patients wiht mechanical heart valves.COMPREHENSIVE METABOLIC [id number] 10:19:00 Test Item Value Reference Range Comments TOTAL PROTEIN (BEAKER) 6.4 gm/dL 6.0-8.3 (test qacy=312) ALBUMIN (BEAKER) (test 1.5 g/dL 3.5-5.0 dghi=8816) ALKALINE PHOSPHATASE 172 U/L 40-150 (BEAKER) (test cudq=507) BILIRUBIN TOTAL (BEAKER) 13.2 mg/dL 0.2-1.2 (test qrhs=634) SODIUM (BEAKER) (test 133 meq/L 136-145 jicu=165) POTASSIUM (BEAKER) (test 2.5 meq/L 3.5-5.1 ecpx=984) CHLORIDE (BEAKER) (test 110 meq/L 98-107 rjbn=169) CO2 (BEAKER) (test 16 meq/L 22-29 vgnw=654) BLOOD UREA NITROGEN 6 mg/dL 7-21 (BEAKER) (test wxkj=277) CREATININE (BEAKER) (test 1.17 mg/dL 0.57-1.25 lvxf=716) GLUCOSE RANDOM (BEAKER) 135 mg/dL 70-105 (test tgoh=776) CALCIUM (BEAKER) (test 7.2 mg/dL 8.4-10.2 aydj=794) AST (SGOT) (BEAKER) (test 133 U/L 5-34 nosx=980) ALT (SGPT) (BEAKER) (test 60 U/L 6-55 kdye=589) EGFR (BEAKER) (test 65 mL/min/1.73 sq m ESTIMATED GFR IS NOT aouv=9810) ACCURATE CREATININE CLEARANCE IN PREDICTING GLOMERULAR FILTRATION RATE. ESTIMATED GFR IS NOT APPLICABLE FOR DIALYSIS PATIENTS. Specimen markedly ictericCBC W/PLT COUNT & AUTO [id number] 10:07 :00 Test Item Value Reference Range Comments WHITE BLOOD CELL COUNT (BEAKER) (test dyar=170) 3.8 K/ L 3.5-10.5 RED BLOOD CELL COUNT (BEAKER) (test likd=702) 1.75 M/ L 4.63-6.08 HEMOGLOBIN (BEAKER) (test cscs=632) 6.7 GM/DL 13.7-17.5 HEMATOCRIT (BEAKER) (test abew=275) 19.9 % 40.1-51.0 MEAN CORPUSCULAR VOLUME (BEAKER) (test caox=898) 113.7 fL 79.0-92.2 MEAN CORPUSCULAR HEMOGLOBIN (BEAKER) (test 38.3 pg 25.7-32.2 awhn=287) MEAN CORPUSCULAR HEMOGLOBIN CONC (BEAKER) (test 33.7 GM/DL 32.3-36.5 bzap=209) RED CELL DISTRIBUTION WIDTH (BEAKER) (test 19.7 % 11.6-14.4 mzgu=598) PLATELET COUNT (BEAKER) (test twlh=434) 42 K/CU MM 150-450 MEAN PLATELET VOLUME (BEAKER) (test ozgv=543) 12.2 fL 9.4-12.4 NUCLEATED RED BLOOD CELLS (BEAKER) (test 0 /100 WBC 0-0 rssf=938) NEUTROPHILS RELATIVE PERCENT (BEAKER) (test 79 % jlxd=831) LYMPHOCYTES RELATIVE PERCENT (BEAKER) (test 8 % gzbi=274) MONOCYTES RELATIVE PERCENT (BEAKER) (test 12 % kvlu=415) EOSINOPHILS RELATIVE PERCENT (BEAKER) (test 1 % hpnc=598) BASOPHILS RELATIVE PERCENT (BEAKER) (test 0 % ctku=831) NEUTROPHILS ABSOLUTE COUNT (BEAKER) (test 2.98 K/ L 1.78-5.38 gopq=258) LYMPHOCYTES ABSOLUTE COUNT (BEAKER) (test 0.28 K/ L 1.32-3.57 riux=125) MONOCYTES ABSOLUTE COUNT (BEAKER) (test vcoy=705) 0.43 K/ L 0.30-0.82 EOSINOPHILS ABSOLUTE COUNT (BEAKER) (test 0.05 K/ L 0.04-0.54 mhul=972) BASOPHILS ABSOLUTE COUNT (BEAKER) (test nwbd=870) 0.00 K/ L 0.01-0.08 IMMATURE GRANULOCYTES-RELATIVE PERCENT (BEAKER) 0 % 0-1 (test jlsa=3462) BLOOD [id number] 20:01:00 Test Item Value Reference Range Comments CULTURE (BEAKER) (test rrbr=3694) No growth in 5 days BLOOD [id number] 20:01:00 Test Item Value Reference Range Comments CULTURE (BEAKER) (test qtio=3521) No growth in 5 days URINE [id number] 14:33:00 Test Item Value Reference Range Comments CULTURE (BEAKER) (test ESCHERICHIA COLI 10-19,000 col/mL yajo=6346) Escherichia coliESBL Positive Amikacin (test code=1) Ampicillin + Sulbactam (test code=6) Aztreonam (test code=32) Cefepime (test code=51) Cefoxitin (test code=68) Ceftazidime (test code=27) Ceftriaxone (test code=52) Ertapenem (test code=38) Gentamicin (test code=18) Levofloxacin (test code=22) Meropenem (test code=34) Nitrofurantoin (test code=23) Piperacillin + Tazobactam (test code=29) Tetracycline (test code=2) Tobramycin (test code=25) Trimethoprim + Sulfamethoxazole (test code=47) BLOOD [id number] 10:58:00 Test Item Value Reference Range Comments CULTURE (BEAKER) Positive; see gram From Anaerobic Bottle Only (test zyea=9046) stain results. Bifidobacterium species GRAM STAIN RESULT From anaerobic bottle (BEAKER) (test only: gram positive uihj=1002) rods BLOOD [id number] 20:01:00 Test Item Value Reference Range Comments CULTURE (BEAKER) (test tyhe=3644) No growth in 5 days POCT-GLUCOSE [id number] 12:59:00 Test Item Value Reference Range Comments POC-GLUCOSE METER (BEAKER) 129 mg/dL 70-110 TESTED AT [address] (test ltbp=4998) [facility] [address] CBC W/PLT COUNT & AUTO [id number] 09:05:00 Test Item Value Reference Range Comments WHITE BLOOD CELL COUNT (BEAKER) (test uuia=345) 4.3 K/ L 3.5-10.5 RED BLOOD CELL COUNT (BEAKER) (test tluf=865) 1.98 M/ L 4.63-6.08 HEMOGLOBIN (BEAKER) (test pzbt=855) 7.6 GM/DL 13.7-17.5 HEMATOCRIT (BEAKER) (test dkfh=667) 25.0 % 40.1-51.0 MEAN CORPUSCULAR VOLUME (BEAKER) (test tsgp=773) 126.3 fL 79.0-92.2 MEAN CORPUSCULAR HEMOGLOBIN (BEAKER) (test 38.4 pg 25.7-32.2 mdtn=205) MEAN CORPUSCULAR HEMOGLOBIN CONC (BEAKER) (test 30.4 GM/DL 32.3-36.5 hjuw=744) RED CELL DISTRIBUTION WIDTH (BEAKER) (test 22.9 % 11.6-14.4 cuft=726) PLATELET COUNT (BEAKER) (test qixw=232) 41 K/CU MM 150-450 MEAN PLATELET VOLUME (BEAKER) (test ibsu=846) 11.8 fL 9.4-12.4 NUCLEATED RED BLOOD CELLS (BEAKER) (test 0 /100 WBC 0-0 afsn=741) (CELLAVISION MANUAL DIFF)2019-01-09 09:05:00 Test Item Value Reference Range Comments NEUTROPHILS - REL (CELLAVISION)(BEAKER) (test 71 % qjjy=1373) LYMPHOCYTES - REL (CELLAVISION)(BEAKER) (test 17 % drxt=3843) MONOCYTES - REL (CELLAVISION)(BEAKER) (test 7 % pdml=1464) EOSINOPHILS - REL (CELLAVISION)(BEAKER) (test 2 % axrv=5854) BASOPHILS - REL (CELLAVISION)(BEAKER) (test 2 % eaxk=1025) BANDS - REL (CELLAVISION)(BEAKER) (test vmst=5136) 1 % 0-10 NEUTROPHILS - ABS (CELLAVISION)(BEAKER) (test 3.05 K/ul 1.78-5.38 uagm=1086) LYMPHOCYTES - ABS (CELLAVISION)(BEAKER) (test 0.73 K/ul 1.32-3.57 ujnx=1534) MONOCYTES - ABS (CELLAVISION)(BEAKER) (test 0.30 K/uL 0.30-0.82 siyc=9095) EOSINOPHILS - ABS (CELLAVISION)(BEAKER) (test 0.09 K/uL 0.04-0.54 iidt=6414) BASOPHILS - ABS (CELLAVISION)(BEAKER) (test 0.09 K/uL 0.01-0.08 ybxw=2613) BANDS - ABS (CELLAVISION)(BEAKER) (test uneh=4020) 0.04 K/uL 0.00-0.80 TOTAL COUNTED (BEAKER) (test ylgv=7161) 100 WBC MORPHOLOGY (BEAKER) (test utoy=554) Normal PLT MORPHOLOGY (BEAKER) (test tixg=406) Normal POLYCHROMATOPHILLIC RBCS(BEAKER) (test ghdw=748) 1+ few HYPOCHROMIA (BEAKER) (test uhet=657) 1+ few ARTIFACT (CELLAVISION)(BEAKER) (test hvdc=7544) Present PLATELET CONCENTRATION (CELLAVISION)(BEAKER) (test Decreased otng=8145) Received comment: User comments: Slide comments:POCT-GLUCOSE [id number] 08: 29:00 Test Item Value Reference Range Comments POC-GLUCOSE METER (BEAKER) 103 mg/dL 70-[address] [facility] [address] [facility] (test bwbw=9796) [place] [address] HEPATIC FUNCTION [id number] 07:01:00 Test Item Value Reference Range Comments TOTAL PROTEIN (BEAKER) (test ubcg=708) 5.9 gm/dL 6.0-8.3 ALBUMIN (BEAKER) (test wffs=5938) 1.8 g/dL 3.5-5.0 BILIRUBIN TOTAL (BEAKER) (test zgaz=976) 25.1 mg/dL 0.2-1.2 BILIRUBIN DIRECT (BEAKER) (test ftof=805) 18.0 mg/dL 0.1-0.5 ALKALINE PHOSPHATASE (BEAKER) (test ggkz=286) 134 U/L 40-150 AST (SGOT) (BEAKER) (test afop=603) 144 U/L 5-34 ALT (SGPT) (BEAKER) (test xfhn=134) 68 U/L 6-55 Specimen markedly ictericCOMPREHENSIVE METABOLIC [id number] 07:01:00 Test Item Value Reference Range Comments TOTAL PROTEIN (BEAKER) 5.9 gm/dL 6.0-8.3 (test ufxy=083) ALBUMIN (BEAKER) (test 1.8 g/dL 3.5-5.0 kiof=7232) ALKALINE PHOSPHATASE 134 U/L 40-150 (BEAKER) (test qfip=921) BILIRUBIN TOTAL (BEAKER) 25.1 mg/dL 0.2-1.2 (test lrkf=876) SODIUM (BEAKER) (test 139 meq/L 136-145 kita=580) POTASSIUM (BEAKER) (test 3.3 meq/L 3.5-5.1 wfzn=531) CHLORIDE (BEAKER) (test 118 meq/L 98-107 vedr=906) CO2 (BEAKER) (test 16 meq/L 22-29 kdwr=482) BLOOD UREA NITROGEN 19 mg/dL 7-21 (BEAKER) (test ncee=852) CREATININE (BEAKER) (test 1.31 mg/dL 0.57-1.25 llvn=492) GLUCOSE RANDOM (BEAKER) 90 mg/dL 70-105 (test rptj=998) CALCIUM (BEAKER) (test 8.1 mg/dL 8.4-10.2 bwzr=738) AST (SGOT) (BEAKER) (test 144 U/L 5-34 llwe=232) ALT (SGPT) (BEAKER) (test 68 U/L 6-55 ucje=318) EGFR (BEAKER) (test 57 mL/min/1.73 sq m ESTIMATED GFR IS NOT oxpk=9283) ACCURATE CREATININE CLEARANCE IN PREDICTING GLOMERULAR FILTRATION RATE. ESTIMATED GFR IS NOT APPLICABLE FOR DIALYSIS PATIENTS. Specimen markedly [id number] 06:58:00 Test Item Value Reference Range Comments PHOSPHORUS (BEAKER) (test eqsl=925) 3.0 mg/dL 2.3-4.7 [id number] 06:58:00 Test Item Value Reference Range Comments MAGNESIUM (BEAKER) (test hgsm=065) 1.9 mg/dL 1.6-2.6 B-TYPE NATRIURETIC FACTOR (BNP)2019-01-09 06:03:00 Test Item Value Reference Range Comments B-TYPE NATRIURETIC PEPTIDE (BEAKER) (test 165 pg/mL 0-100 ltil=307) PROTHROMBIN [id number] 05:58:00 Test Item Value Reference Range Comments PROTIME (BEAKER) (test jhgz=263) 21.0 seconds 11.9-14.2 INR (BEAKER) (test gsac=965) 1.9 <=5.9 Effective 10/09/2018: PT Reference Range ChangeNew: 11.9-14.2 Previous: 11.7- 14.7RECOMMENDED COUMADIN/WARFARIN INR THERAPY RANGESSTANDARD DOSE: 2.0-3.0 Includes: PROPHYLAXIS for venous thrombosis, systemic embolization; TREATMENT for venous thrombosis and/or pulmonary embolus.HIGH RISK: Target INR is2.5-3.5 for patients wiht mechanical heart valves.CALCIUM, [id number] 05:34:00 Test Item Value Reference Range Comments CALCIUM IONIZED (BEAKER) (test bjoi=171) 1.19 mmol/L 1.12-1.27 PH, BLOOD (BEAKER) (test cyat=3132) 7.35 URINALYSIS W/ REFLEX URINE [id number] 21:26:00 Test Item Value Reference Range Comments COLOR (BEAKER) (test zeem=984) Dark Yellow CLARITY (BEAKER) (test axjx=552) Clear SPECIFIC GRAVITY UA (BEAKER) (test qvrh=850) 1.012 1.001-1.035 PH UA (BEAKER) (test tyix=531) 6.5 5.0-8.0 PROTEIN UA (BEAKER) (test yzol=157) 10 mg/dL Negative GLUCOSE UA (BEAKER) (test aqmf=330) Negative Negative KETONES UA (BEAKER) (test kgmg=507) Negative Negative BILIRUBIN UA (BEAKER) (test bumm=995) Positive Negative BLOOD UA (BEAKER) (test bbbc=112) Negative Negative NITRITE UA (BEAKER) (test owcl=616) Negative Negative LEUKOCYTE ESTERASE UA (BEAKER) (test mfvx=198) Trace Negative UROBILINOGEN UA (BEAKER) (test tntg=044) 0.2 mg/dL 0.2-1.0 RBC UA (BEAKER) (test anvp=227) 1 /HPF WBC UA (BEAKER) (test ktbp=398) 1 /HPF BACTERIA (BEAKER) (test eihc=304) Moderate MUCUS (BEAKER) (test ginr=5364) Rare SQUAMOUS EPITHELIAL (BEAKER) (test zsej=055) 1 /HPF HYALINE CASTS (BEAKER) (test orly=123) 2 /LPF SOURCE(BEAKER) (test wiem=6188) HIV-1 ANTIGEN WITH HIV-1/2 [id number] 19:48:00 Test Item Value Reference Range Comments HIV-1 ANTIGEN WITH HIV 1\T\2 ANTIBODY (2) Nonreactive Nonreactive (BEAKER) (test hcij=8786) CT, BRAIN, WITHOUT [id number] 19:13:00FINAL REPORT CT, BRAIN, WITHOUT CONTRAST INDICATION: Neuro deficit, acute, persistent or progressingfoot drop, unclear whether new or chronic TECHNIQUE: Noncontrast axial imagingwas obtained from the vertex to the skull base. Axial images were reconstructed using a bone algorithm. DOSE REDUCTION: Dose modulation, iterative reconstruction, and/or weight-based adjustment of the mA/ kV was utilized to reduce the radiation dose to as low as reasonably achievable. COMPARISON: CT 01/26/2018 FINDINGS: Intracranial: No intracranial hemorrhage or abnormal extra-axial collection. Noevidence of acute territorial infarct. No mass effect. No hydrocephalus. Osseous structures: No fracture. No suspicious lesion. Paranasal sinuses and mastoid air cells: No evidence of sinusitis. Mastoids are clear. Orbital contents: Globes are intact. IMPRESSION: No acute intracranial abnormality. If there is persistent clinical concern for intracranial pathology, MR examination is recommended for further characterization. Signed: Anayeli Al Verified Date/Time: 2018 19:13:13 Electronically signed by: ANAYELI AL MD on 2018 07:13 PMPOCT-GLUCOSE [id number] 18:58:00 Test Item Value Reference Range Comments POC-GLUCOSE METER (BEAKER) 110 mg/dL 70-110 TESTED AT [address] (test zvfn=3436) [facility] [address] POCT-GLUCOSE [id number] 13:40:00 Test Item Value Reference Range Comments POC-GLUCOSE METER (BEAKER) 155 mg/dL 70-110 TESTED AT [address] (test fzsy=0660) [facility] [address] CBC W/PLT COUNT & AUTO [id number] 11:47:00 Test Item Value Reference Range Comments WHITE BLOOD CELL COUNT (BEAKER) (test yekf=238) 5.2 K/ L 3.5-10.5 RED BLOOD CELL COUNT (BEAKER) (test bvll=747) 2.03 M/ L 4.63-6.08 HEMOGLOBIN (BEAKER) (test mfxw=281) 7.6 GM/DL 13.7-17.5 HEMATOCRIT (BEAKER) (test nstn=867) 25.6 % 40.1-51.0 MEAN CORPUSCULAR VOLUME (BEAKER) (test rqws=285) 126.1 fL 79.0-92.2 MEAN CORPUSCULAR HEMOGLOBIN (BEAKER) (test 37.4 pg 25.7-32.2 ilal=932) MEAN CORPUSCULAR HEMOGLOBIN CONC (BEAKER) (test 29.7 GM/DL 32.3-36.5 gbur=647) RED CELL DISTRIBUTION WIDTH (BEAKER) (test 24.0 % 11.6-14.4 dgxk=795) PLATELET COUNT (BEAKER) (test muit=958) 41 K/CU MM 150-450 MEAN PLATELET VOLUME (BEAKER) (test swna=858) 12.3 fL 9.4-12.4 NUCLEATED RED BLOOD CELLS (BEAKER) (test 0 /100 WBC 0-0 lwsn=319) (CELLAVISION MANUAL DIFF)2019-01-08 11:47:00 Test Item Value Reference Range Comments NEUTROPHILS - REL (CELLAVISION)(BEAKER) (test 67 % qshf=8625) LYMPHOCYTES - REL (CELLAVISION)(BEAKER) (test 7 % fcdd=2223) MONOCYTES - REL (CELLAVISION)(BEAKER) (test 12 % bqkl=1442) EOSINOPHILS - REL (CELLAVISION)(BEAKER) (test 1 % dcfd=2468) BASOPHILS - REL (CELLAVISION)(BEAKER) (test 2 % gjca=8150) METAMYELOCYTES - REL (CELLAVISION)(BEAKER) (test 3 % 0-0 kfqf=0850) MYELOCYTES - REL (CELLAVISION)(BEAKER) (test 5 % 0-0 ebsz=3053) BANDS - REL (CELLAVISION)(BEAKER) (test 2 % 0-10 jrbr=0236) ATYPICAL LYMPHOCYTES - REL (CELLAVISION)(BEAKER) 1 % 0-0 (test ewik=7234) NEUTROPHILS - ABS (CELLAVISION)(BEAKER) (test 3.48 K/ul 1.78-5.38 bgwa=7327) LYMPHOCYTES - ABS (CELLAVISION)(BEAKER) (test 0.36 K/ul 1.32-3.57 pwvj=1855) MONOCYTES - ABS (CELLAVISION)(BEAKER) (test 0.62 K/uL 0.30-0.82 knqw=2585) EOSINOPHILS - ABS (CELLAVISION)(BEAKER) (test 0.05 K/uL 0.04-0.54 wsct=9727) BASOPHILS - ABS (CELLAVISION)(BEAKER) (test 0.10 K/uL 0.01-0.08 pccp=1278) METAMYELOCYTES - ABS (CELLAVISION)(BEAKER) (test 0.16 K/uL 0.00-0.00 plpt=4242) MYELOCYTES-ABS (CELLAVISION)(BEAKER) (test 0.26 K/uL 0.00-0.00 owcd=0138) BANDS - ABS (CELLAVISION)(BEAKER) (test 0.10 K/uL 0.00-0.80 wmvp=2815) ATYPICAL LYMPHOCYTES - ABS (CELLAVISION)(BEAKER) 0.05 K/uL 0.00-0.00 (test xorm=6327) TOTAL COUNTED (BEAKER) (test aylo=5187) 100 WBC MORPHOLOGY (BEAKER) (test qmin=244) Normal PLT MORPHOLOGY (BEAKER) (test twsj=978) Normal ANISOCYTOSIS (BEAKER) (test dinz=329) 2+ moderate MACROCYTES (BEAKER) (test cfec=387) 2+ moderate POIKILOCYTES (BEAKER) (test jjtw=140) 1+ few ARTIFACT (CELLAVISION)(BEAKER) (test mwia=3201) Present PLATELET CONCENTRATION (CELLAVISION)(BEAKER) Decreased (test tueu=6108) Received comment: User comments: Slide comments:POCT-GLUCOSE [id number] 09: 33:00 Test Item Value Reference Range Comments POC-GLUCOSE METER (BEAKER) 113 mg/dL 70-[address] [facility] [address] [place] [address] (test mxck=5409) [facility] [address] MISCELLANEOUS LAB [id number] 07:34:00 Test Item Value Reference Range Comments SCAN RESULT (test icnu=[id number]) HEPATIC FUNCTION [id number] 06:40:00 Test Item Value Reference Range Comments TOTAL PROTEIN (BEAKER) (test xelb=240) 6.2 gm/dL 6.0-8.3 ALBUMIN (BEAKER) (test zogv=4458) 2.0 g/dL 3.5-5.0 BILIRUBIN TOTAL (BEAKER) (test ckvv=880) 27.4 mg/dL 0.2-1.2 BILIRUBIN DIRECT (BEAKER) (test ntur=947) 19.3 mg/dL 0.1-0.5 ALKALINE PHOSPHATASE (BEAKER) (test shib=384) 156 U/L 40-150 AST (SGOT) (BEAKER) (test uhbc=473) 147 U/L 5-34 ALT (SGPT) (BEAKER) (test daic=073) 64 U/L 6-55 Specimen markedly ictericCOMPREHENSIVE METABOLIC [id number] 06:40:00 Test Item Value Reference Range Comments TOTAL PROTEIN (BEAKER) 6.2 gm/dL 6.0-8.3 (test qxke=404) ALBUMIN (BEAKER) (test 2.0 g/dL 3.5-5.0 naoa=5077) ALKALINE PHOSPHATASE 156 U/L 40-150 (BEAKER) (test abjt=341) BILIRUBIN TOTAL (BEAKER) 27.4 mg/dL 0.2-1.2 (test fhas=406) SODIUM (BEAKER) (test 145 meq/L 136-145 twip=561) POTASSIUM (BEAKER) (test 3.5 meq/L 3.5-5.1 ftsr=377) CHLORIDE (BEAKER) (test 124 meq/L 98-107 nhcx=403) CO2 (BEAKER) (test 17 meq/L 22-29 eozp=915) BLOOD UREA NITROGEN 22 mg/dL 7-21 (BEAKER) (test dmix=349) CREATININE (BEAKER) (test 1.17 mg/dL 0.57-1.25 yvyj=115) GLUCOSE RANDOM (BEAKER) 92 mg/dL 70-105 (test weal=645) CALCIUM (BEAKER) (test 8.1 mg/dL 8.4-10.2 ctcm=267) AST (SGOT) (BEAKER) (test 147 U/L 5-34 kczt=160) ALT (SGPT) (BEAKER) (test 64 U/L 6-55 ybbd=077) EGFR (BEAKER) (test 65 mL/min/1.73 sq m ESTIMATED GFR IS NOT xgtd=1917) ACCURATE CREATININE CLEARANCE IN PREDICTING GLOMERULAR FILTRATION RATE. ESTIMATED GFR IS NOT APPLICABLE FOR DIALYSIS PATIENTS. Specimen markedly [id number] 06:39:00 Test Item Value Reference Range Comments PHOSPHORUS (BEAKER) (test twiy=462) 2.8 mg/dL 2.3-4.7 [id number] 06:39:00 Test Item Value Reference Range Comments MAGNESIUM (BEAKER) (test oxln=712) 2.2 mg/dL 1.6-2.6 POCT-GLUCOSE [id number] 06:32:00 Test Item Value Reference Range Comments POC-GLUCOSE METER (BEAKER) 135 mg/dL 70-110 TESTED AT [address] (test kmqe=9170) [facility] [address] PROTHROMBIN [id number] 06:05:00 Test Item Value Reference Range Comments PROTIME (BEAKER) (test gfli=695) 20.5 seconds 11.9-14.2 INR (BEAKER) (test lezz=283) 1.9 <=5.9 Effective 10/09/2018: PT Reference Range ChangeNew: 11.9-14.2 Previous: 11.7- 14.7RECOMMENDED COUMADIN/WARFARIN INR THERAPY RANGESSTANDARD DOSE: 2.0-3.0 Includes: PROPHYLAXIS for venous thrombosis, systemic embolization; TREATMENT for venous thrombosis and/or pulmonary embolus.HIGH RISK: Target INR is2.5-3.5 for patients wiht mechanical heart valves.CALCIUM, [id number] 05:11:00 Test Item Value Reference Range Comments CALCIUM IONIZED (BEAKER) (test sumn=456) 1.17 mmol/L 1.12-1.27 PH, BLOOD (BEAKER) (test ejed=1343) 7.39 POCT-GLUCOSE [id number] 23:40:00 Test Item Value Reference Range Comments POC-GLUCOSE METER (BEAKER) 132 mg/dL 70-110 TESTED AT [address] (test jnoo=3205) [place] [address] RAD, CHEST, 1 VIEW, NON [id number] 17:41:00Reason for exam:->feverShould this be performed at the bedside?->YesFINAL REPORT Chest, one view. HISTORY: fever COMPARISON: Radiograph from 12/31/2018 IMPRESSION: Unchanged positioning of the TIPS. The increased interstitial markings of the lungs are most concerning for interstitial pulmonary edema. There are some minimal streaky opacity of the left medial base which is most likely due to atelectasis. Mild underlying infection is considered less likely. NG tube courses below the diaphragm. No pleural effusion or pneumothorax. The cardiac silhouette is enlarged and unchanged. No acute bony abnormality. Signed : Estuardo Mondragon MDReport Verified Date/Time: 01/07/2019 17:41:42 Reading Location : [facility] [id number] Consult Reading Room Electronicallysigned by: ESTUARDO MONDRAGON MD on 01/07/2019 05:41 PMPOCT-GLUCOSE [id number] 17:25:00 Test Item Value Reference Range Comments POC-GLUCOSE METER (BEAKER) 94 mg/dL 70-[address] [facility] [address] [facility] (test rqps=8790) [facility] [address] URINALYSIS W/ REFLEX URINE [id number] 15:00:00 Test Item Value Reference Range Comments COLOR (BEAKER) (test wtwe=370) Dark Yellow CLARITY (BEAKER) (test ibiv=953) Clear SPECIFIC GRAVITY UA (BEAKER) (test gbqf=342) 1.012 1.001-1.035 PH UA (BEAKER) (test fcbr=980) 6.5 5.0-8.0 PROTEIN UA (BEAKER) (test nami=419) 10 mg/dL Negative GLUCOSE UA (BEAKER) (test pmpi=467) Negative Negative KETONES UA (BEAKER) (test oghd=594) Negative Negative BILIRUBIN UA (BEAKER) (test lmav=062) Positive Negative BLOOD UA (BEAKER) (test svdg=418) Trace Negative NITRITE UA (BEAKER) (test bijf=267) Positive Negative LEUKOCYTE ESTERASE UA (BEAKER) (test lhuo=676) Large Negative UROBILINOGEN UA (BEAKER) (test isqn=540) 0.2 mg/dL 0.2-1.0 RBC UA (BEAKER) (test ukbs=698) < /HPF WBC UA (BEAKER) (test leob=016) 8 /HPF BACTERIA (BEAKER) (test ydod=938) Many MUCUS (BEAKER) (test gjdy=9665) Rare SOURCE(BEAKER) (test uoxz=4076) CBC W/PLT COUNT & AUTO [id number] 12:34:00 Test Item Value Reference Range Comments WHITE BLOOD CELL COUNT (BEAKER) (test wtdn=682) 4.7 K/ L 3.5-10.5 RED BLOOD CELL COUNT (BEAKER) (test nifo=798) 2.08 M/ L 4.63-6.08 HEMOGLOBIN (BEAKER) (test bzbc=304) 7.8 GM/DL 13.7-17.5 HEMATOCRIT (BEAKER) (test yqjf=973) 26.2 % 40.1-51.0 MEAN CORPUSCULAR VOLUME (BEAKER) (test nqny=139) 126.0 fL 79.0-92.2 MEAN CORPUSCULAR HEMOGLOBIN (BEAKER) (test 37.5 pg 25.7-32.2 joku=146) MEAN CORPUSCULAR HEMOGLOBIN CONC (BEAKER) (test 29.8 GM/DL 32.3-36.5 qccf=942) RED CELL DISTRIBUTION WIDTH (BEAKER) (test 25.2 % 11.6-14.4 hnhu=671) PLATELET COUNT (BEAKER) (test rlle=941) 37 K/CU MM 150-450 MEAN PLATELET VOLUME (BEAKER) (test wbdu=486) 11.1 fL 9.4-12.4 NUCLEATED RED BLOOD CELLS (BEAKER) (test 1 /100 WBC 0-0 blyh=356) (CELLAVISION MANUAL DIFF)2019-01-07 12:34:00 Test Item Value Reference Range Comments NEUTROPHILS - REL (CELLAVISION)(BEAKER) (test 77 % qrda=6190) LYMPHOCYTES - REL (CELLAVISION)(BEAKER) (test 4 % svjm=3796) MONOCYTES - REL (CELLAVISION)(BEAKER) (test 13 % ijbk=7054) EOSINOPHILS - REL (CELLAVISION)(BEAKER) (test 4 % pdwq=3792) MYELOCYTES - REL (CELLAVISION)(BEAKER) (test 2 % 0-0 dgwp=3597) NEUTROPHILS - ABS (CELLAVISION)(BEAKER) (test 3.62 K/ul 1.78-5.38 peft=0709) LYMPHOCYTES - ABS (CELLAVISION)(BEAKER) (test 0.19 K/ul 1.32-3.57 chgr=3407) MONOCYTES - ABS (CELLAVISION)(BEAKER) (test 0.61 K/uL 0.30-0.82 lmdx=4619) EOSINOPHILS - ABS (CELLAVISION)(BEAKER) (test 0.19 K/uL 0.04-0.54 kkgi=0438) MYELOCYTES-ABS (CELLAVISION)(BEAKER) (test 0.09 K/uL 0.00-0.00 dgub=9204) TOTAL COUNTED (BEAKER) (test zkqx=1790) 100 SMUDGE CELLS (BEAKER) (test djkj=6835) Present GIANT PLATELETS (BEAKER) (test xlpc=905) Present POLYCHROMATOPHILLIC RBCS(BEAKER) (test oirk=443) 1+ few ANISOCYTOSIS (BEAKER) (test qcaz=051) 2+ moderate MACROCYTES (BEAKER) (test gfor=762) 2+ moderate POIKILOCYTES (BEAKER) (test iknf=060) 2+ moderate ARTIFACT (CELLAVISION)(BEAKER) (test iefc=0603) Present PLATELET CONCENTRATION (CELLAVISION)(BEAKER) Decreased (test svos=9784) Received comment: User comments: Slide comments:POCT-GLUCOSE [id number] 12: 15:00 Test Item Value Reference Range Comments POC-GLUCOSE METER (BEAKER) 162 mg/dL 70-110 TESTED AT [address] (test zgmj=4805) [facility] [address] HEPATIC FUNCTION [id number] 07:38:00 Test Item Value Reference Range Comments TOTAL PROTEIN (BEAKER) (test sdwm=880) 6.1 gm/dL 6.0-8.3 ALBUMIN (BEAKER) (test ujrt=9632) 2.1 g/dL 3.5-5.0 BILIRUBIN TOTAL (BEAKER) (test llml=252) 28.5 mg/dL 0.2-1.2 BILIRUBIN DIRECT (BEAKER) (test nwoy=911) 20.3 mg/dL 0.1-0.5 ALKALINE PHOSPHATASE (BEAKER) (test wvwk=514) 183 U/L 40-150 AST (SGOT) (BEAKER) (test pyid=056) 129 U/L 5-34 ALT (SGPT) (BEAKER) (test pohd=144) 62 U/L 6-55 Specimen markedly ictericCOMPREHENSIVE METABOLIC [id number] 07:37:00 Test Item Value Reference Range Comments TOTAL PROTEIN (BEAKER) 6.1 gm/dL 6.0-8.3 (test abzp=963) ALBUMIN (BEAKER) (test 2.1 g/dL 3.5-5.0 lifg=3527) ALKALINE PHOSPHATASE 183 U/L 40-150 (BEAKER) (test jktn=844) BILIRUBIN TOTAL (BEAKER) 28.5 mg/dL 0.2-1.2 (test xmfy=581) SODIUM (BEAKER) (test 148 meq/L 136-145 pdzy=434) POTASSIUM (BEAKER) (test 3.3 meq/L 3.5-5.1 kwgp=646) CHLORIDE (BEAKER) (test 127 meq/L 98-107 atje=973) CO2 (BEAKER) (test 17 meq/L 22-29 ltvs=137) BLOOD UREA NITROGEN 24 mg/dL 7-21 (BEAKER) (test rxmn=683) CREATININE (BEAKER) (test 1.29 mg/dL 0.57-1.25 oydl=920) GLUCOSE RANDOM (BEAKER) 119 mg/dL 70-105 (test wtfq=698) CALCIUM (BEAKER) (test 7.8 mg/dL 8.4-10.2 qiip=599) AST (SGOT) (BEAKER) (test 129 U/L 5-34 myov=211) ALT (SGPT) (BEAKER) (test 62 U/L 6-55 mfhu=453) EGFR (BEAKER) (test 58 mL/min/1.73 sq m ESTIMATED GFR IS NOT txts=5058) ACCURATE CREATININE CLEARANCE IN PREDICTING GLOMERULAR FILTRATION RATE. ESTIMATED GFR IS NOT APPLICABLE FOR DIALYSIS PATIENTS. Specimen markedly [id number] 07:35:00 Test Item Value Reference Range Comments AMMONIA (BEAKER) (test krks=627) 19 mol/L 18-72 [id number] 07:30:00 Test Item Value Reference Range Comments PHOSPHORUS (BEAKER) (test cijs=818) 2.3 mg/dL 2.3-4.7 [id number] 07:30:00 Test Item Value Reference Range Comments MAGNESIUM (BEAKER) (test ueaj=265) 2.2 mg/dL 1.6-2.6 B-TYPE NATRIURETIC FACTOR (BNP)2019-01-07 06:46:00 Test Item Value Reference Range Comments B-TYPE NATRIURETIC PEPTIDE (BEAKER) (test 197 pg/mL 0-100 fosn=613) PROTHROMBIN [id number] 06:32:00 Test Item Value Reference Range Comments PROTIME (BEAKER) (test delx=831) 21.0 seconds 11.9-14.2 INR (BEAKER) (test fzwg=333) 1.9 <=5.9 Effective 10/09/2018: PT Reference Range ChangeNew: 11.9-14.2 Previous: 11.7- 14.7RECOMMENDED COUMADIN/WARFARIN INR THERAPY RANGESSTANDARD DOSE: 2.0-3.0 Includes: PROPHYLAXIS for venous thrombosis, systemic embolization; TREATMENT for venous thrombosis and/or pulmonary embolus.HIGH RISK: Target INR is2.5-3.5 for patients wiht mechanical heart valves.BLOOD CULTURE IDENTIFICATION [id number] 06:28:00 Test Item Value Reference Range Comments LISTERIA MONOCYTOGENES (test lybs=[id number]) Not detected Not detected STAPHYLOCOCCUS (test hkfm=1722801) Not detected Not detected STAPHYLOCOCCUS AUREUS (test beil=0412737) Not detected Not detected STREPTOCOCCUS (test ymec=4836716) Not detected Not detected STREPTOCOCCUS AGALACTIAE (GROUP B) (test Not detected Not detected ilqu=4318004) STREPTOCOCCUS PNEUMONIAE (test bisi=0498208) Not detected Not detected STREPTOCOCCUS PYOGENES (GROUP A) (test Not detected Not detected eadg=0820147) ACINETOBACTER BAUMANNII (test xquj=7891694) Not detected Not detected HAEMOPHILUS INFLUENZAE (test kust=0355894) Not detected Not detected NEISSERIA MENINGITIDIS (test wpzq=7016079) Not detected Not detected ENTEROBACTERIACEAE (test rxbk=2206954) Not detected Not detected ENTEROBACTER CLOACOE COMPLEX (test Not detected Not detected jsto=6512777) KLEBSIELLA OXYTOCA (test qvbb=3981739) Not detected Not detected KLEBSIELLA PNEUMONIAE (test aeph=1900) Not detected Not detected PROTEUS (test alpt=7321434) Not detected Not detected SERRATIA MARCESCENS (test rfxv=8517752) Not detected Not detected LENNIE ALBICANS (test tdvc=8537055) Not detected Not detected LENNIE GLABRATA (test ttak=3835248) Not detected Not detected LENNIE KRUSEI (test nwqm=7881831) Not detected Not detected LENNIE PARAPSILOSIS (test puwl=8018850) Not detected Not detected LENNIE TROPICALIS (test vaut=1537553) Not detected Not detected ESCHERICHIA COLI (test xbkm=4682488) Not detected Not detected METHICILLIN-RESISTANCE GENE (test jyit=3354383) VANCOMYCIN-RESISTANCE GENE (test brvh=1720186) CARBAPENEM-RESISTANCE GENE (test motm=7004285) ENTEROCOCCUS-BEAKER (test czfu=5495580) Not detected Not detected PSEUDOMONAS AERUGINOSA-BEAKER (test Not detected Not detected xjhf=3178931) Other bacteria and resistance markers not targeted by this PCR panel cannot be excluded; therefore clinical correlation and follow up of serology, culture results, and other molecular studies is required. The results are not intended to be used as the sole means for clinical diagnosis or patient management decisions. This sample was tested at the [facility] using the [employer] Blood Culture ID Panel. It is FDA cleared and has been verified and approved by the [facility] for clinical use. This laboratory is CLIA-certified and College ofAmerican Pathologists (CAP)-accredited to perform high complexity testing.POCT-GLUCOSE [id number] 06:21:00 Test Item Value Reference Range Comments POC-GLUCOSE METER (BEAKER) 140 mg/dL 70-110 TESTED AT [address] (test ikub=9795) [place] [address] CALCIUM, [id number] 05:57:00 Test Item Value Reference Range Comments CALCIUM IONIZED (BEAKER) (test euxh=352) 1.12 mmol/L 1.12-1.27 PH, BLOOD ([facility]) (test yvqv=0384) 7.40 POCT-GLUCOSE [id number] 18:31:00 Test Item Value Reference Range Comments POC-GLUCOSE METER (BEAKER) 108 mg/dL 70-110 TESTED AT [address] (test kxyx=7888) [place] [address] POCT-GLUCOSE [id number] 12:46:00 Test Item Value Reference Range Comments POC-GLUCOSE METER (BEAKER) 116 mg/dL 70-110 TESTED AT [address] (test gppk=1004) [place] [id number] CBC W/PLT COUNT & AUTO [id number] 12:04:00 Test Item Value Reference Range Comments WHITE BLOOD CELL COUNT (BEAKER) (test onmx=012) 5.1 K/ L 3.5-10.5 RED BLOOD CELL COUNT (BEAKER) (test cvgn=865) 2.14 M/ L 4.63-6.08 HEMOGLOBIN (BEAKER) (test kvdr=003) 8.1 GM/DL 13.7-17.5 HEMATOCRIT (BEAKER) (test jfhv=078) 26.7 % 40.1-51.0 MEAN CORPUSCULAR VOLUME (BEAKER) (test farc=094) 124.8 fL 79.0-92.2 MEAN CORPUSCULAR HEMOGLOBIN (BEAKER) (test 37.9 pg 25.7-32.2 mclj=294) MEAN CORPUSCULAR HEMOGLOBIN CONC (BEAKER) (test 30.3 GM/DL 32.3-36.5 khxp=592) RED CELL DISTRIBUTION WIDTH (BEAKER) (test 26.2 % 11.6-14.4 jbcq=858) PLATELET COUNT (BEAKER) (test qhrs=524) 33 K/CU MM 150-450 MEAN PLATELET VOLUME (BEAKER) (test kjmc=574) 10.7 fL 9.4-12.4 NUCLEATED RED BLOOD CELLS (BEAKER) (test 1 /100 WBC 0-0 vink=156) (CELLAVISION MANUAL DIFF)2019-01-06 12:04:00 Test Item Value Reference Range Comments NEUTROPHILS - REL (CELLAVISION)(BEAKER) (test 73 % rwqh=6425) LYMPHOCYTES - REL (CELLAVISION)(BEAKER) (test 13 % cdyh=3496) MONOCYTES - REL (CELLAVISION)(BEAKER) (test 12 % msxt=6584) EOSINOPHILS - REL (CELLAVISION)(BEAKER) (test 1 % rmuj=3963) PROMYELOCYTES - REL (CELLAVSION)(BEAKER) (test 1 % 0-0 nkao=7725) NEUTROPHILS - ABS (CELLAVISION)(BEAKER) (test 3.72 K/ul 1.78-5.38 wzwq=6339) LYMPHOCYTES - ABS (CELLAVISION)(BEAKER) (test 0.66 K/ul 1.32-3.57 qtcf=6187) MONOCYTES - ABS (CELLAVISION)(BEAKER) (test 0.61 K/uL 0.30-0.82 xroo=3826) EOSINOPHILS - ABS (CELLAVISION)(BEAKER) (test 0.05 K/uL 0.04-0.54 kyzb=8560) PROMYELOCYTES - ABS (CELLAVISION)(BEAKER) (test 0.05 K/uL 0.00-0.00 sark=8022) TOTAL COUNTED (BEAKER) (test zeye=3186) 100 WBC MORPHOLOGY (BEAKER) (test hitp=450) Normal PLT MORPHOLOGY (BEAKER) (test vkaq=340) Normal POLYCHROMATOPHILLIC RBCS(BEAKER) (test tzcc=739) 1+ few ANISOCYTOSIS (BEAKER) (test nsrm=139) 3+ many MACROCYTES (BEAKER) (test gtic=407) 3+ many POIKILOCYTES (BEAKER) (test nawb=193) 1+ few ARTIFACT (CELLAVISION)(BEAKER) (test dorq=1220) Present PLATELET CONCENTRATION (CELLAVISION)(BEAKER) (test Decreased xvlh=3383) Received comment: User comments: Slide comments:MISCELLANEOUS LAB [id number] 08:08:00 Test Item Value Reference Range Comments SCAN RESULT (test ntpe=[id number]) HEPATIC FUNCTION [id number] 06:40:00 Test Item Value Reference Range Comments TOTAL PROTEIN (BEAKER) (test rgpn=757) 5.9 gm/dL 6.0-8.3 ALBUMIN (BEAKER) (test mrkg=6142) 2.0 g/dL 3.5-5.0 BILIRUBIN TOTAL (BEAKER) (test erqj=836) 26.5 mg/dL 0.2-1.2 BILIRUBIN DIRECT (BEAKER) (test dvid=038) 19.6 mg/dL 0.1-0.5 ALKALINE PHOSPHATASE (BEAKER) (test uqhv=928) 175 U/L 40-150 AST (SGOT) (BEAKER) (test bmuo=209) 121 U/L 5-34 ALT (SGPT) (BEAKER) (test uuqo=726) 59 U/L 6-55 Specimen markedly ictericCOMPREHENSIVE METABOLIC [id number] 06:40:00 Test Item Value Reference Range Comments TOTAL PROTEIN (BEAKER) 5.9 gm/dL 6.0-8.3 (test ohhw=900) ALBUMIN (BEAKER) (test 2.0 g/dL 3.5-5.0 fzmq=4287) ALKALINE PHOSPHATASE 175 U/L 40-150 (BEAKER) (test zqoy=538) BILIRUBIN TOTAL (BEAKER) 26.5 mg/dL 0.2-1.2 (test kwgp=657) SODIUM (BEAKER) (test 148 meq/L 136-145 wreb=945) POTASSIUM (BEAKER) (test 3.5 meq/L 3.5-5.1 ruoo=719) CHLORIDE (BEAKER) (test 129 meq/L 98-107 xpen=643) CO2 (BEAKER) (test 15 meq/L 22-29 ppsh=247) BLOOD UREA NITROGEN 24 mg/dL 7-21 (BEAKER) (test jrkz=965) CREATININE (BEAKER) (test 1.41 mg/dL 0.57-1.25 fimq=842) GLUCOSE RANDOM (BEAKER) 113 mg/dL 70-105 (test slmk=624) CALCIUM (BEAKER) (test 7.4 mg/dL 8.4-10.2 lzho=203) AST (SGOT) (BEAKER) (test 121 U/L 5-34 eyfx=023) ALT (SGPT) (BEAKER) (test 59 U/L 6-55 ocgu=605) EGFR (BEAKER) (test 53 mL/min/1.73 sq m ESTIMATED GFR IS NOT jmot=1026) ACCURATE CREATININE CLEARANCE IN PREDICTING GLOMERULAR FILTRATION RATE. ESTIMATED GFR IS NOT APPLICABLE FOR DIALYSIS PATIENTS. Specimen markedly [id number] 06:39:00 Test Item Value Reference Range Comments PHOSPHORUS (BEAKER) (test wsrb=252) 3.2 mg/dL 2.3-4.7 [id number] 06:39:00 Test Item Value Reference Range Comments MAGNESIUM (BEAKER) (test dhhm=044) 2.2 mg/dL 1.6-2.6 PROTHROMBIN [id number] 06:06:00 Test Item Value Reference Range Comments PROTIME (BEAKER) (test uysh=739) 22.9 seconds 11.9-14.2 INR (BEAKER) (test dpsu=721) 2.2 <=5.9 Effective 10/09/2018: PT Reference Range ChangeNew: 11.9-14.2 Previous: 11.7- 14.7RECOMMENDED COUMADIN/WARFARIN INR THERAPY RANGESSTANDARD DOSE: 2.0-3.0 Includes: PROPHYLAXIS for venous thrombosis, systemic embolization; TREATMENT for venous thrombosis and/or pulmonary embolus.HIGH RISK: Target INR is2.5-3.5 for patients wiht mechanical heart valves.POCT-GLUCOSE [id number] 05:52:00 Test Item Value Reference Range Comments POC-GLUCOSE METER (BEAKER) 132 mg/dL 70-110 TESTED AT [address] (test hqjh=5617) [place] [id number] CALCIUM, [id number] 05:51:00 Test Item Value Reference Range Comments CALCIUM IONIZED (BEAKER) (test nrws=682) 1.14 mmol/L 1.12-1.27 PH, BLOOD (BEAKER) (test llrv=8235) 7.38 BLOOD [id number] 02:01:00 Test Item Value Reference Range Comments CULTURE (BEAKER) (test fqbt=0058) No growth in 5 days BLOOD [id number] 02:01:00 Test Item Value Reference Range Comments CULTURE (BEAKER) (test ncmt=9531) No growth in 5 days POCT-GLUCOSE [id number] 23:45:00 Test Item Value Reference Range Comments POC-GLUCOSE METER (BEAKER) 115 mg/dL 70-110 TESTED AT [address] (test bzuh=7515) [place] [address] POCT-GLUCOSE [id number] 19:43:00 Test Item Value Reference Range Comments POC-GLUCOSE METER (BEAKER) 131 mg/dL 70-110 TESTED AT [address] (test mzxu=4372) [place] [address] POCT-GLUCOSE [id number] 18:20:00 Test Item Value Reference Range Comments POC-GLUCOSE METER (BEAKER) 118 mg/dL 70-110 TESTED AT [address] (test vlrg=7437) [place] [address] URINALYSIS W/ REFLEX URINE [id number] 14:08:00 Test Item Value Reference Range Comments COLOR (BEAKER) (test sask=288) Dark Yellow CLARITY (BEAKER) (test prne=050) Clear SPECIFIC GRAVITY UA (BEAKER) (test gdqy=977) 1.012 1.001-1.035 PH UA (BEAKER) (test gjah=726) 6.5 5.0-8.0 PROTEIN UA (BEAKER) (test yjfw=755) 20 mg/dL Negative GLUCOSE UA (BEAKER) (test marx=334) Negative Negative KETONES UA (BEAKER) (test iskg=600) Negative Negative BILIRUBIN UA (BEAKER) (test wbcw=307) Positive Negative BLOOD UA (BEAKER) (test ackj=511) Negative Negative NITRITE UA (BEAKER) (test ojff=583) Negative Negative LEUKOCYTE ESTERASE UA (BEAKER) (test uooj=529) Trace Negative UROBILINOGEN UA (BEAKER) (test fqiw=464) 0.2 mg/dL 0.2-1.0 RBC UA (BEAKER) (test sdmh=097) < /HPF WBC UA (BEAKER) (test cbab=702) 2 /HPF MUCUS (BEAKER) (test oyso=5496) Occasional SOURCE(BEAKER) (test pnnc=8145) POCT-GLUCOSE [id number] 12:14:00 Test Item Value Reference Range Comments POC-GLUCOSE METER (BEAKER) 129 mg/dL 70-[address] [facility] [address] [facility] (test qanb=4638) [facility] [address] CBC W/PLT COUNT & AUTO [id number] 07:10:00 Test Item Value Reference Range Comments WHITE BLOOD CELL COUNT (BEAKER) (test tlve=391) 6.9 K/ L 3.5-10.5 RED BLOOD CELL COUNT (BEAKER) (test uryx=279) 2.35 M/ L 4.63-6.08 HEMOGLOBIN (BEAKER) (test pnjl=285) 8.9 GM/DL 13.7-17.5 HEMATOCRIT (BEAKER) (test woiz=130) 28.6 % 40.1-51.0 MEAN CORPUSCULAR VOLUME (BEAKER) (test fqdv=248) 121.7 fL 79.0-92.2 MEAN CORPUSCULAR HEMOGLOBIN (BEAKER) (test 37.9 pg 25.7-32.2 hkya=928) MEAN CORPUSCULAR HEMOGLOBIN CONC (BEAKER) (test 31.1 GM/DL 32.3-36.5 evil=188) RED CELL DISTRIBUTION WIDTH (BEAKER) (test 27.9 % 11.6-14.4 egtg=155) PLATELET COUNT (BEAKER) (test oxmp=910) 52 K/CU MM 150-450 MEAN PLATELET VOLUME (BEAKER) (test gkqj=867) 11.8 fL 9.4-12.4 NUCLEATED RED BLOOD CELLS (BEAKER) (test 1 /100 WBC 0-0 isxr=253) (CELLAVISION MANUAL DIFF)2019-01-05 07:10:00 Test Item Value Reference Range Comments NEUTROPHILS - REL (CELLAVISION)(BEAKER) (test 73 % glyd=5429) LYMPHOCYTES - REL (CELLAVISION)(BEAKER) (test 10 % iwqb=9383) MONOCYTES - REL (CELLAVISION)(BEAKER) (test 10 % whpi=2431) EOSINOPHILS - REL (CELLAVISION)(BEAKER) (test 3 % vfsu=4259) BANDS - REL (CELLAVISION)(BEAKER) (test 2 % 0-10 xjmi=2247) ATYPICAL LYMPHOCYTES - REL (CELLAVISION)(BEAKER) 1 % 0-0 (test eykm=2416) NEUTROPHILS - ABS (CELLAVISION)(BEAKER) (test 5.04 K/ul 1.78-5.38 aoux=6221) LYMPHOCYTES - ABS (CELLAVISION)(BEAKER) (test 0.69 K/ul 1.32-3.57 xysm=1929) MONOCYTES - ABS (CELLAVISION)(BEAKER) (test 0.69 K/uL 0.30-0.82 sdnz=1878) EOSINOPHILS - ABS (CELLAVISION)(BEAKER) (test 0.21 K/uL 0.04-0.54 flxs=4155) BANDS - ABS (CELLAVISION)(BEAKER) (test 0.14 K/uL 0.00-0.80 dgna=8552) ATYPICAL LYMPHOCYTES - ABS (CELLAVISION)(BEAKER) 0.07 K/uL 0.00-0.00 (test vzll=7727) TOTAL COUNTED (BEAKER) (test swka=6196) 100 MANUAL NRBC PER 100 CELLS (BEAKER) (test 1 /100 WBC 0-0 wyac=8065) WBC MORPHOLOGY (BEAKER) (test bwtb=663) Normal PLT MORPHOLOGY (BEAKER) (test ueek=710) Normal POLYCHROMATOPHILLIC RBCS(BEAKER) (test yspm=935) 1+ few HYPOCHROMIA (BEAKER) (test dkuy=365) 1+ few OVALOCYTES (BEAKER) (test wxsy=842) 1+ few ARTIFACT (CELLAVISION)(BEAKER) (test wmid=9420) Present PLATELET CONCENTRATION (CELLAVISION)(BEAKER) Decreased (test txld=0459) Received comment: User comments: Slide comments:HEPATIC FUNCTION [id number] 05:08:00 Test Item Value Reference Range Comments TOTAL PROTEIN (BEAKER) (test 6.2 gm/dL 6.0-8.3 Specimen slightly hemolyzed ycxd=154) ALBUMIN (BEAKER) (test 1.6 g/dL 3.5-5.0 Specimen slightly hemolyzed redz=5016) BILIRUBIN TOTAL (BEAKER) (test 24.4 mg/dL 0.2-1.2 Specimen slightly hemolyzed xfjg=245) BILIRUBIN DIRECT (BEAKER) 17.6 mg/dL 0.1-0.5 Specimen slightly hemolyzed (test cmyu=736) ALKALINE PHOSPHATASE (BEAKER) 183 U/L 40-150 (test hrah=733) AST (SGOT) (BEAKER) (test 133 U/L 5-34 Specimen slightly hemolyzed mvwx=675) ALT (SGPT) (BEAKER) (test 63 U/L 6-55 Specimen slightly hemolyzed svwq=719) Specimen markedly ictericCOMPREHENSIVE METABOLIC [id number] 05:08:00 Test Item Value Reference Range Comments TOTAL PROTEIN (BEAKER) 6.2 gm/dL 6.0-8.3 Specimen slightly (test wkuy=933) hemolyzed ALBUMIN (BEAKER) (test 1.6 g/dL 3.5-5.0 Specimen slightly glfe=8763) hemolyzed ALKALINE PHOSPHATASE 183 U/L 40-150 (BEAKER) (test osnp=963) BILIRUBIN TOTAL (BEAKER) 24.4 mg/dL 0.2-1.2 Specimen slightly (test zxjx=019) hemolyzed SODIUM (BEAKER) (test 150 meq/L 136-145 hmhk=417) POTASSIUM (BEAKER) (test 3.7 meq/L 3.5-5.1 Specimen slightly jqly=676) hemolyzed CHLORIDE (BEAKER) (test 130 meq/L 98-107 qhni=587) CO2 (BEAKER) (test 17 meq/L 22-29 degr=251) BLOOD UREA NITROGEN 23 mg/dL 7-21 (BEAKER) (test gkai=925) CREATININE (BEAKER) (test 1.57 mg/dL 0.57-1.25 Specimen slightly pcxp=528) hemolyzed GLUCOSE RANDOM (BEAKER) 121 mg/dL 70-105 (test tprx=685) CALCIUM (BEAKER) (test 7.0 mg/dL 8.4-10.2 qsnl=480) AST (SGOT) (BEAKER) (test 133 U/L 5-34 Specimen slightly xtrz=148) hemolyzed ALT (SGPT) (BEAKER) (test 63 U/L 6-55 Specimen slightly avwi=647) hemolyzed EGFR (BEAKER) (test 47 mL/min/1.73 sq m ESTIMATED GFR IS NOT zqkw=5481) ACCURATE CREATININE CLEARANCE IN PREDICTING GLOMERULAR FILTRATION RATE. ESTIMATED GFR IS NOT APPLICABLE FOR DIALYSIS PATIENTS. Specimen markedly [id number] 05:02:00 Test Item Value Reference Range Comments MAGNESIUM (BEAKER) (test 2.2 mg/dL 1.6-2.6 Specimen slightly hemolyzed yyqm=999) [id number] 05:02:00 Test Item Value Reference Range Comments PHOSPHORUS (BEAKER) (test 3.8 mg/dL 2.3-4.7 Specimen slightly hemolyzed wshq=899) CALCIUM, [id number] 04:44:00 Test Item Value Reference Range Comments CALCIUM IONIZED (BEAKER) (test slbj=904) 1.14 mmol/L 1.12-1.27 PH, BLOOD (BEAKER) (test qrrd=0292) 7.36 PROTHROMBIN [id number] 04:23:00 Test Item Value Reference Range Comments PROTIME (BEAKER) (test ulfe=866) 23.8 seconds 11.9-14.2 INR (BEAKER) (test fouc=616) 2.3 <=5.9 Effective 10/09/2018: PT Reference Range ChangeNew: 11.9-14.2 Previous: 11.7- 14.7RECOMMENDED COUMADIN/WARFARIN INR THERAPY RANGESSTANDARD DOSE: 2.0-3.0 Includes: PROPHYLAXIS for venous thrombosis, systemic embolization; TREATMENT for venous thrombosis and/or pulmonary embolus.HIGH RISK: Target INR is2.5-3.5 for patients wiht mechanical heart valves.POCT-GLUCOSE [id number] 00:04:00 Test Item Value Reference Range Comments POC-GLUCOSE METER (BEAKER) 115 mg/dL 70-110 TESTED AT [place] [id number] [facility] (test czpy=0359) [facility] [address] POCT-GLUCOSE [id number] 18:31:00 Test Item Value Reference Range Comments POC-GLUCOSE METER (BEAKER) 111 mg/dL 70-110 TESTED AT [address] (test qkhs=4637) [facility] [address] CBC W/PLT COUNT & AUTO [id number] 15:20:00 Test Item Value Reference Range Comments WHITE BLOOD CELL COUNT (BEAKER) (test lpxj=577) 7.5 K/ L 3.5-10.5 RED BLOOD CELL COUNT (BEAKER) (test xlds=227) 2.65 M/ L 4.63-6.08 HEMOGLOBIN (BEAKER) (test kehu=003) 9.8 GM/DL 13.7-17.5 HEMATOCRIT (BEAKER) (test xmpi=077) 31.7 % 40.1-51.0 MEAN CORPUSCULAR VOLUME (BEAKER) (test tysv=341) 119.6 fL 79.0-92.2 MEAN CORPUSCULAR HEMOGLOBIN (BEAKER) (test 37.0 pg 25.7-32.2 qdla=851) MEAN CORPUSCULAR HEMOGLOBIN CONC (BEAKER) (test 30.9 GM/DL 32.3-36.5 oizi=881) RED CELL DISTRIBUTION WIDTH (BEAKER) (test 27.7 % 11.6-14.4 dpot=698) PLATELET COUNT (BEAKER) (test npuv=405) 43 K/CU MM 150-450 MEAN PLATELET VOLUME (BEAKER) (test rplg=242) 10.2 fL 9.4-12.4 NUCLEATED RED BLOOD CELLS (BEAKER) (test 1 /100 WBC 0-0 wcmt=180) (CELLAVISION MANUAL DIFF)2019-01-04 15:20:00 Test Item Value Reference Range Comments NEUTROPHILS - REL (CELLAVISION)(BEAKER) (test 75 % fcsb=6307) LYMPHOCYTES - REL (CELLAVISION)(BEAKER) (test 4 % wugf=5861) MONOCYTES - REL (CELLAVISION)(BEAKER) (test 10 % bavo=8106) EOSINOPHILS - REL (CELLAVISION)(BEAKER) (test 3 % opii=7452) BASOPHILS - REL (CELLAVISION)(BEAKER) (test 1 % bihq=1595) METAMYELOCYTES - REL (CELLAVISION)(BEAKER) (test 1 % 0-0 ndcv=0265) BANDS - REL (CELLAVISION)(BEAKER) (test 6 % 0-10 bkfy=6543) NEUTROPHILS - ABS (CELLAVISION)(BEAKER) (test 5.63 K/ul 1.78-5.38 gzvs=4268) LYMPHOCYTES - ABS (CELLAVISION)(BEAKER) (test 0.30 K/ul 1.32-3.57 nzag=9911) MONOCYTES - ABS (CELLAVISION)(BEAKER) (test 0.75 K/uL 0.30-0.82 mbuw=6392) EOSINOPHILS - ABS (CELLAVISION)(BEAKER) (test 0.23 K/uL 0.04-0.54 uvjc=4420) BASOPHILS - ABS (CELLAVISION)(BEAKER) (test 0.08 K/uL 0.01-0.08 kkxa=0152) METAMYELOCYTES - ABS (CELLAVISION)(BEAKER) (test 0.08 K/uL 0.00-0.00 nxbn=7544) BANDS - ABS (CELLAVISION)(BEAKER) (test 0.45 K/uL 0.00-0.80 jcqp=8967) TOTAL COUNTED (BEAKER) (test vewd=4830) 100 WBC MORPHOLOGY (BEAKER) (test mtah=390) Normal PLT MORPHOLOGY (BEAKER) (test ssiz=963) Normal POLYCHROMATOPHILLIC RBCS(BEAKER) (test fodt=391) 2+ moderate HYPOCHROMIA (BEAKER) (test wwxb=450) 1+ few ANISOCYTOSIS (BEAKER) (test kzpe=554) 2+ moderate MICROCYTES (BEAKER) (test cago=056) 1+ few MACROCYTES (BEAKER) (test hndh=634) 2+ moderate POIKILOCYTES (BEAKER) (test weeb=276) 2+ moderate OVALOCYTES (BEAKER) (test mwwy=829) 1+ few TEAR DROP CELLS (BEAKER) (test haxn=321) 1+ few MEG CELLS (BEAKER) (test kcas=500) 2+ moderate ARTIFACT (CELLAVISION)(BEAKER) (test znbg=8982) Present PLATELET CONCENTRATION (CELLAVISION)(BEAKER) Decreased (test zfst=5317) Received comment: User comments: Slide comments:[id number] 15:13:00 Test Item Value Reference Range Comments SODIUM (BEAKER) (test jqsr=998) 153 meq/L 136-145 POTASSIUM (BEAKER) (test spnk=437) 3.8 meq/L 3.5-5.1 CHLORIDE (BEAKER) (test sgor=275) 130 meq/L 98-107 CO2 (BEAKER) (test ksks=569) 15 meq/L 22-29 Call results [id number] 11:49:00 Test Item Value Reference Range Comments POC-GLUCOSE METER (BEAKER) 133 mg/dL 70-110 TESTED AT [address] (test kvrj=6077) [facility] [address] HEPATIC FUNCTION [id number] 08:57:00 Test Item Value Reference Range Comments TOTAL PROTEIN (BEAKER) (test uikk=186) 6.5 gm/dL 6.0-8.3 ALBUMIN (BEAKER) (test njev=0245) 1.7 g/dL 3.5-5.0 BILIRUBIN TOTAL (BEAKER) (test mkwz=521) 24.6 mg/dL 0.2-1.2 BILIRUBIN DIRECT (BEAKER) (test qywm=488) 18.4 mg/dL 0.1-0.5 ALKALINE PHOSPHATASE (BEAKER) (test czya=317) 198 U/L 40-150 AST (SGOT) (BEAKER) (test jxke=499) 137 U/L 5-34 ALT (SGPT) (BEAKER) (test bxuu=497) 67 U/L 6-55 Check Serum Magnesium level 2 hours after IV magnesium replacement.Specimen markedly ictericCOMPREHENSIVE METABOLIC [id number] 08:57:00 Test Item Value Reference Range Comments TOTAL PROTEIN (BEAKER) 6.5 gm/dL 6.0-8.3 (test xeyj=933) ALBUMIN (BEAKER) (test 1.7 g/dL 3.5-5.0 fwur=0232) ALKALINE PHOSPHATASE 198 U/L 40-150 (BEAKER) (test kmwt=968) BILIRUBIN TOTAL (BEAKER) 24.6 mg/dL 0.2-1.2 (test twgd=692) SODIUM (BEAKER) (test 151 meq/L 136-145 cuwi=126) POTASSIUM (BEAKER) (test 3.8 meq/L 3.5-5.1 yzps=309) CHLORIDE (BEAKER) (test 129 meq/L 98-107 licb=447) CO2 (BEAKER) (test 17 meq/L 22-29 fyio=325) BLOOD UREA NITROGEN 14 mg/dL 7-21 (BEAKER) (test kdmg=371) CREATININE (BEAKER) (test 1.26 mg/dL 0.57-1.25 rngw=542) GLUCOSE RANDOM (BEAKER) 104 mg/dL 70-105 (test moza=144) CALCIUM (BEAKER) (test 7.7 mg/dL 8.4-10.2 srky=166) AST (SGOT) (BEAKER) (test 137 U/L 5-34 aaih=768) ALT (SGPT) (BEAKER) (test 67 U/L 6-55 hyzs=240) EGFR (BEAKER) (test 60 mL/min/1.73 sq m ESTIMATED GFR IS NOT gncr=1381) ACCURATE CREATININE CLEARANCE IN PREDICTING GLOMERULAR FILTRATION RATE. ESTIMATED GFR IS NOT APPLICABLE FOR DIALYSIS PATIENTS. Check Serum Magnesium level 2 hours after IV magnesium replacement.Specimen markedly [id number] 08:53:00 Test Item Value Reference Range Comments PHOSPHORUS (BEAKER) (test escw=260) 3.3 mg/dL 2.3-4.7 Check Serum Magnesium level 2 hours after IV magnesium replacement.[id number] 08:53:00 Test Item Value Reference Range Comments MAGNESIUM (BEAKER) (test brbu=424) 2.5 mg/dL 1.6-2.6 Check Serum Magnesium level 2 hours after IV magnesium replacement.PROTHROMBIN [id number] 06:55:00 Test Item Value Reference Range Comments PROTIME (BEAKER) (test bubo=505) 25.3 seconds 11.9-14.2 INR (BEAKER) (test zkjh=900) 2.5 <=5.9 Effective 10/09/2018: PT Reference Range ChangeNew: 11.9-14.2 Previous: 11.7- 14.7RECOMMENDED COUMADIN/WARFARIN INR THERAPY RANGESSTANDARD DOSE: 2.0-3.0 Includes: PROPHYLAXIS for venous thrombosis, systemic embolization; TREATMENT for venous thrombosis and/or pulmonary embolus.HIGH RISK: Target INR is2.5-3.5 for patients wiht mechanical heart valves.POCT-GLUCOSE [id number] 06:14:00 Test Item Value Reference Range Comments POC-GLUCOSE METER (BEAKER) 121 mg/dL 70-110 TESTED AT [address] (test ctll=8732) [place] [address] CALCIUM, [id number] 06:00:00 Test Item Value Reference Range Comments CALCIUM IONIZED (BEAKER) (test pqmi=822) 1.20 mmol/L 1.12-1.27 PH, BLOOD (BEAKER) (test flxo=1718) 7.38 [id number] 02:06:00 Test Item Value Reference Range Comments POTASSIUM (BEAKER) (test issw=196) 3.5 meq/L 3.5-5.1 Check Serum Magnesium level 2 hours after IV magnesium replacement.Check Serum Potassium level 2 hours after oral potassium replacement completed.[id number] 02:06:00 Test Item Value Reference Range Comments MAGNESIUM (BEAKER) (test qqok=157) 2.2 mg/dL 1.6-2.6 Check Serum Magnesium level 2 hours after IV magnesium replacement.Check Serum Potassium level 2 hours after oral potassium replacement completed.POCT-GLUCOSE [id number] 00:57:00 Test Item Value Reference Range Comments POC-GLUCOSE METER (BEAKER) 127 mg/dL 70-110 TESTED AT [address] (test sglg=7029) [facility] [id number] BASIC METABOLIC [id number] 18:42:00 Test Item Value Reference Range Comments SODIUM (BEAKER) (test 151 meq/L 136-145 qtci=443) POTASSIUM (BEAKER) (test 3.3 meq/L 3.5-5.1 zikv=860) CHLORIDE (BEAKER) (test 130 meq/L 98-107 hzrk=892) CO2 (BEAKER) (test 18 meq/L 22-29 kntj=290) BLOOD UREA NITROGEN 12 mg/dL 7-21 (BEAKER) (test prbp=166) CREATININE (BEAKER) (test 1.19 mg/dL 0.57-1.25 ojlg=571) GLUCOSE RANDOM (BEAKER) 118 mg/dL 70-105 (test upvf=626) CALCIUM (BEAKER) (test 8.0 mg/dL 8.4-10.2 smna=727) EGFR (BEAKER) (test 64 mL/min/1.73 sq m ESTIMATED GFR IS NOT aolo=8526) ACCURATE CREATININE CLEARANCE IN PREDICTING GLOMERULAR FILTRATION RATE. ESTIMATED GFR IS NOT APPLICABLE FOR DIALYSIS PATIENTS. Specimen markedly [id number] 18:38:00 Test Item Value Reference Range Comments PHOSPHORUS (BEAKER) (test tkis=417) 2.9 mg/dL 2.3-4.7 [id number] 18:38:00 Test Item Value Reference Range Comments MAGNESIUM (BEAKER) (test idwu=075) 2.0 mg/dL 1.6-2.6 POCT-GLUCOSE [id number] 11:04:00 Test Item Value Reference Range Comments POC-GLUCOSE METER (BEAKER) 114 mg/dL 70-110 TESTED AT [address] (test gzgc=1067) [facility] [id number] U/S, DUPLEX, [id number] 07:33:00elevated liver enzymes; undergoing urgent liver transplant evaluationReason for exam:->elevated liver enzymes; undergoing urgent liver transplant evaluationFINAL REPORT U/S, ABDOMINAL, COMPLETE INDICATION: elevated liver enzymes; undergoing urgent liver transplant evaluation COMPARISON: None TECHNIQUE: Real- time robbins-scale transabdominal and color Doppler ultrasound. FINDINGS:Liver: Size: 16.2cm. Echogenicity: Heterogeneous hepatic echogenicity.. Masses/lesions: None. Surface Nodularity: Present.. Intrahepatic bile ducts: Normal.. Common bile duct: 0.4cm. MPV: 1.3cm. Gallbladder: Stones: None. Sludge: Echogenic sludge is seen layering within the gallbladder lumen.. Wall thickness: 0.3 cm. The gallbladder is somewhat distended. Pericholecystic fluid: None. Sonographic Chowdhury's sign: No sonographic Chowdhury's sign. Pancreas: Head and uncinate process: Not well seen secondaryto poor acoustic windowing.. Body and tail: Not well-seen. Spleen: Size: 13.5cm. Echogenicity: Unremarkable. Right kidney: Size: 11.4 x 6.3 x 6.2 cm. Parenchyma: Normal echogenicity. No cysts. No stones. Hydronephrosis: None. Left kidney: Size: 11.9 x 6.5 x 7.2 cm. Parenchyma: Normal echogenicity. No cysts. No stones. Hydronephrosis: None. Ascites: None. RegionalVasculature: The visible abdominal aorta, IVC are patent. The hepatic veins are not identified. Color and Spectral imaging: The TIPS is patent with antegrade flow. Peak systolic velocities measure: Current velocities: Proximal TIPS 165 cm/sec Mid TIPS 169 cm/sec Distal TIPS 161 cm/sec MPV: Diameter: 1.3 Flow: Hepatopedal. Velocity: 36.2 cm/sec Filling defects: NoneLeft and right portal veins: Patent. Flow: Hepatofugal flow is noted, normal given TIPS Filling defects: None. Hepatic arteries: Patent RI proper hepatic: 0.8 RI right hepatic: 0.8 RI left hepatic: 0.7 IVC, is patent . The hepatic veins are not identified. Additional findings: None. IMPRESSION: Morphologic changes of cirrhosis with sequela of portal hypertension including splenomegaly. Patent TIPS however hepatic veins are not identified on this examination. Biliary sludge versus gallbladder distention however no other findings to suggest acute cholecystitis. Signed: Zaina Mckeon [facility] [place] Verified Date/Time: 2018 07:33:18 Electronically signed by: ZAINA MCKEON MD on 2018 07:33 AMHEPATIC FUNCTION [id number] 07:17:00 Test Item Value Reference Range Comments TOTAL PROTEIN (BEAKER) (test 6.7 gm/dL 6.0-8.3 Specimen slightly hemolyzed acvc=474) ALBUMIN (BEAKER) (test 1.7 g/dL 3.5-5.0 Specimen slightly hemolyzed owgj=7549) BILIRUBIN TOTAL (BEAKER) (test 26.6 mg/dL 0.2-1.2 Specimen slightly hemolyzed qyrk=646) BILIRUBIN DIRECT (BEAKER) 19.7 mg/dL 0.1-0.5 Specimen slightly hemolyzed (test khuf=910) ALKALINE PHOSPHATASE (BEAKER) 181 U/L 40-150 (test ysjm=379) AST (SGOT) (BEAKER) (test 151 U/L 5-34 Specimen slightly hemolyzed hlzt=006) ALT (SGPT) (BEAKER) (test 77 U/L 6-55 Specimen slightly hemolyzed kssc=486) Specimen markedly ictericCOMPREHENSIVE METABOLIC [id number] 07:13:00 Test Item Value Reference Range Comments TOTAL PROTEIN (BEAKER) 6.7 gm/dL 6.0-8.3 Specimen slightly (test llpn=489) hemolyzed ALBUMIN (BEAKER) (test 1.7 g/dL 3.5-5.0 Specimen slightly pxrm=5749) hemolyzed ALKALINE PHOSPHATASE 181 U/L 40-150 (BEAKER) (test yxid=557) BILIRUBIN TOTAL (BEAKER) 26.6 mg/dL 0.2-1.2 Specimen slightly (test vgly=320) hemolyzed SODIUM (BEAKER) (test 149 meq/L 136-145 rvyg=335) POTASSIUM (BEAKER) (test 3.2 meq/L 3.5-5.1 Specimen slightly kcwy=430) hemolyzed CHLORIDE (BEAKER) (test 127 meq/L 98-107 sypz=901) CO2 (BEAKER) (test 18 meq/L 22-29 fxzk=588) BLOOD UREA NITROGEN 12 mg/dL 7-21 (BEAKER) (test oswm=990) CREATININE (BEAKER) (test 1.23 mg/dL 0.57-1.25 Specimen slightly lrzy=889) hemolyzed GLUCOSE RANDOM (BEAKER) 112 mg/dL 70-105 (test wees=263) CALCIUM (BEAKER) (test 8.3 mg/dL 8.4-10.2 onnt=592) AST (SGOT) (BEAKER) (test 151 U/L 5-34 Specimen slightly chgc=565) hemolyzed ALT (SGPT) (BEAKER) (test 77 U/L 6-55 Specimen slightly nubb=875) hemolyzed EGFR (BEAKER) (test 62 mL/min/1.73 sq m ESTIMATED GFR IS NOT ltxx=2017) ACCURATE CREATININE CLEARANCE IN PREDICTING GLOMERULAR FILTRATION RATE. ESTIMATED GFR IS NOT APPLICABLE FOR DIALYSIS PATIENTS. Specimen markedly ictericCBC W/PLT COUNT & AUTO [id number] 07:12 :00 Test Item Value Reference Range Comments WHITE BLOOD CELL COUNT 7.7 K/ L 3.5-10.5 (BEAKER) (test pxeo=211) RED BLOOD CELL COUNT (BEAKER) 2.67 M/ L 4.63-6.08 (test gmjt=072) HEMOGLOBIN (BEAKER) (test 9.7 GM/DL 13.7-17.5 kvpc=077) HEMATOCRIT (BEAKER) (test 31.3 % 40.1-51.0 blty=042) MEAN CORPUSCULAR VOLUME 117.2 fL 79.0-92.2 Discordant result compared (BEAKER) (test nxys=755) to previous result; clinical correlation required. MEAN CORPUSCULAR HEMOGLOBIN 36.3 pg 25.7-32.2 (BEAKER) (test goyr=543) MEAN CORPUSCULAR HEMOGLOBIN 31.0 GM/DL 32.3-36.5 CONC (BEAKER) (test fztz=152) RED CELL DISTRIBUTION WIDTH 27.1 % 11.6-14.4 (BEAKER) (test jehd=585) PLATELET COUNT (BEAKER) (test 49 K/CU MM 150-450 zkhn=367) MEAN PLATELET VOLUME (BEAKER) 11.4 fL 9.4-12.4 (test kpod=421) NUCLEATED RED BLOOD CELLS 1 /100 WBC 0-0 (BEAKER) (test lypf=055) NEUTROPHILS RELATIVE PERCENT 70 % (BEAKER) (test nopo=062) LYMPHOCYTES RELATIVE PERCENT 9 % (BEAKER) (test hfnn=207) MONOCYTES RELATIVE PERCENT 14 % (BEAKER) (test vdkw=873) EOSINOPHILS RELATIVE PERCENT 3 % (BEAKER) (test ojfq=052) BASOPHILS RELATIVE PERCENT 1 % (BEAKER) (test fwst=190) NEUTROPHILS ABSOLUTE COUNT 5.39 K/ L 1.78-5.38 (BEAKER) (test fvfd=999) LYMPHOCYTES ABSOLUTE COUNT 0.69 K/ L 1.32-3.57 (BEAKER) (test kdey=047) MONOCYTES ABSOLUTE COUNT 1.11 K/ L 0.30-0.82 (BEAKER) (test icsc=097) EOSINOPHILS ABSOLUTE COUNT 0.22 K/ L 0.04-0.54 (BEAKER) (test ubcm=188) BASOPHILS ABSOLUTE COUNT 0.09 K/ L 0.01-0.08 (BEAKER) (test ukgs=969) IMMATURE GRANULOCYTES-RELATIVE 3 % 0-1 PERCENT (BEAKER) (test xjfn=8226) [id number] 06:50:00 Test Item Value Reference Range Comments MAGNESIUM (BEAKER) (test 2.2 mg/dL 1.6-2.6 Specimen slightly hemolyzed hbrw=079) [id number] 06:50:00 Test Item Value Reference Range Comments PHOSPHORUS (BEAKER) (test 1.6 mg/dL 2.3-4.7 Specimen slightly hemolyzed rtkm=229) PROTHROMBIN [id number] 06:13:00 Test Item Value Reference Range Comments PROTIME (BEAKER) (test rzsp=689) 28.3 seconds 11.9-14.2 INR (BEAKER) (test nkdz=642) 2.8 <=5.9 Effective 10/09/2018: PT Reference Range ChangeNew: 11.9-14.2 Previous: 11.7- 14.7RECOMMENDED COUMADIN/WARFARIN INR THERAPY RANGESSTANDARD DOSE: 2.0-3.0 Includes: PROPHYLAXIS for venous thrombosis, systemic embolization; TREATMENT for venous thrombosis and/or pulmonary embolus.HIGH RISK: Target INR is2.5-3.5 for patients wiht mechanical heart valves.CALCIUM, [id number] 05:52:00 Test Item Value Reference Range Comments CALCIUM IONIZED (BEAKER) (test pdvw=815) 1.28 mmol/L 1.12-1.27 PH, BLOOD (BEAKER) (test ljjd=1792) 7.36 POCT-GLUCOSE [id number] 05:31:00 Test Item Value Reference Range Comments POC-GLUCOSE METER (BEAKER) 125 mg/dL 70-110 TESTED AT [address] (test ezkc=0922) [facility] [address] POCT-GLUCOSE [id number] 02:37:00 Test Item Value Reference Range Comments POC-GLUCOSE METER (BEAKER) 138 mg/dL 70-110 TESTED AT [address] (test nacw=0675) [facility] [address] [id number] 00:26:00 Test Item Value Reference Range Comments POTASSIUM (BEAKER) (test zazd=235) 3.2 meq/L 3.5-5.1 Check Serum Potassium level 2 hours after oral potassium replacement completed.POCT-GLUCOSE [id number] 18:22:00 Test Item Value Reference Range Comments POC-GLUCOSE METER (BEAKER) 133 mg/dL 70-110 TESTED AT [address] (test owdp=3124) [place] [address] POCT-GLUCOSE [id number] 18:20:00 Test Item Value Reference Range Comments POC-GLUCOSE METER (BEAKER) 112 mg/dL 70-110 TESTED AT [address] (test goup=9526) [place] [address] [id number] 18:19:00 Test Item Value Reference Range Comments SODIUM (BEAKER) (test boih=095) 150 meq/L 136-145 POTASSIUM (BEAKER) (test gujt=348) 3.0 meq/L 3.5-5.1 CHLORIDE (BEAKER) (test qmyr=564) 128 meq/L 98-107 CO2 (BEAKER) (test bblx=202) 17 meq/L 22-29 Call results [id number] 18:07:00 Test Item Value Reference Range Comments PHOSPHORUS (BEAKER) (test qley=576) 2.8 mg/dL 2.3-4.7 Call results [id number] NATRIURETIC FACTOR (BNP)2019-01-02 11:37:00 Test Item Value Reference Range Comments B-TYPE NATRIURETIC PEPTIDE (BEAKER) (test 239 pg/mL 0-100 whux=698) POCT-GLUCOSE [id number] 06:38:00 Test Item Value Reference Range Comments POC-GLUCOSE METER (BEAKER) 116 mg/dL 70-110 TESTED AT [address] (test qiui=9371) [place] [id number] COMPREHENSIVE METABOLIC [id number] 06:09:00 Test Item Value Reference Range Comments TOTAL PROTEIN (BEAKER) 6.3 gm/dL 6.0-8.3 (test xnzn=571) ALBUMIN (BEAKER) (test 1.6 g/dL 3.5-5.0 gpzw=4706) ALKALINE PHOSPHATASE 162 U/L 40-150 (BEAKER) (test enwf=924) BILIRUBIN TOTAL (BEAKER) 24.3 mg/dL 0.2-1.2 (test pknw=303) SODIUM (BEAKER) (test 148 meq/L 136-145 yuhw=249) POTASSIUM (BEAKER) (test 3.6 meq/L 3.5-5.1 pzcy=256) CHLORIDE (BEAKER) (test 127 meq/L 98-107 eykg=434) CO2 (BEAKER) (test 16 meq/L 22-29 zdrm=975) BLOOD UREA NITROGEN 14 mg/dL 7-21 (BEAKER) (test xwou=652) CREATININE (BEAKER) (test 1.55 mg/dL 0.57-1.25 nhug=819) GLUCOSE RANDOM (BEAKER) 118 mg/dL 70-105 (test nhio=276) CALCIUM (BEAKER) (test 8.1 mg/dL 8.4-10.2 remt=292) AST (SGOT) (BEAKER) (test 174 U/L 5-34 vuzm=252) ALT (SGPT) (BEAKER) (test 80 U/L 6-55 xdhx=277) EGFR (BEAKER) (test 47 mL/min/1.73 sq m ESTIMATED GFR IS NOT mwag=1763) ACCURATE CREATININE CLEARANCE IN PREDICTING GLOMERULAR FILTRATION RATE. ESTIMATED GFR IS NOT APPLICABLE FOR DIALYSIS PATIENTS. Specimen markedly ictericHEPATIC FUNCTION [id number] 06:08:00 Test Item Value Reference Range Comments TOTAL PROTEIN (BEAKER) (test vnvq=452) 6.3 gm/dL 6.0-8.3 ALBUMIN (BEAKER) (test oqvc=6762) 1.6 g/dL 3.5-5.0 BILIRUBIN TOTAL (BEAKER) (test nxco=127) 24.3 mg/dL 0.2-1.2 BILIRUBIN DIRECT (BEAKER) (test ytle=517) 17.9 mg/dL 0.1-0.5 ALKALINE PHOSPHATASE (BEAKER) (test tlij=539) 162 U/L 40-150 AST (SGOT) (BEAKER) (test hybx=984) 174 U/L 5-34 ALT (SGPT) (BEAKER) (test zeln=184) 80 U/L 6-55 Specimen markedly [id number] 06:07:00 Test Item Value Reference Range Comments PHOSPHORUS (BEAKER) (test qugf=771) 1.0 mg/dL 2.3-4.7 [id number] 05:56:00 Test Item Value Reference Range Comments MAGNESIUM (BEAKER) (test tcty=376) 2.4 mg/dL 1.6-2.6 CREATINE KINASE (CK)2019-01-02 05:56:00 Test Item Value Reference Range Comments CREATINE KINASE TOTAL (BEAKER) (test gkqz=343) 198 U/L 29-200 CBC W/PLT COUNT & AUTO [id number] 04:48:00 Test Item Value Reference Range Comments WHITE BLOOD CELL COUNT (BEAKER) (test sgqb=026) 7.5 K/ L 3.5-10.5 RED BLOOD CELL COUNT (BEAKER) (test zldh=875) 2.53 M/ L 4.63-6.08 HEMOGLOBIN (BEAKER) (test niuc=400) 9.1 GM/DL 13.7-17.5 HEMATOCRIT (BEAKER) (test ecnm=609) 28.6 % 40.1-51.0 MEAN CORPUSCULAR VOLUME (BEAKER) (test mrfq=730) 113.0 fL 79.0-92.2 MEAN CORPUSCULAR HEMOGLOBIN (BEAKER) (test 36.0 pg 25.7-32.2 fvtc=748) MEAN CORPUSCULAR HEMOGLOBIN CONC (BEAKER) (test 31.8 GM/DL 32.3-36.5 amnk=639) RED CELL DISTRIBUTION WIDTH (BEAKER) (test 27.8 % 11.6-14.4 rrpw=746) PLATELET COUNT (BEAKER) (test anyt=630) 57 K/CU MM 150-450 MEAN PLATELET VOLUME (BEAKER) (test bxuj=119) 10.4 fL 9.4-12.4 NUCLEATED RED BLOOD CELLS (BEAKER) (test 1 /100 WBC 0-0 telm=782) NEUTROPHILS RELATIVE PERCENT (BEAKER) (test 70 % pctw=899) LYMPHOCYTES RELATIVE PERCENT (BEAKER) (test 11 % pvin=982) MONOCYTES RELATIVE PERCENT (BEAKER) (test 15 % xsqk=650) EOSINOPHILS RELATIVE PERCENT (BEAKER) (test 1 % huko=137) BASOPHILS RELATIVE PERCENT (BEAKER) (test 0 % ndbl=297) NEUTROPHILS ABSOLUTE COUNT (BEAKER) (test 5.19 K/ L 1.78-5.38 wiai=686) LYMPHOCYTES ABSOLUTE COUNT (BEAKER) (test 0.80 K/ L 1.32-3.57 dapo=929) MONOCYTES ABSOLUTE COUNT (BEAKER) (test topp=883) 1.14 K/ L 0.30-0.82 EOSINOPHILS ABSOLUTE COUNT (BEAKER) (test 0.10 K/ L 0.04-0.54 cawm=713) BASOPHILS ABSOLUTE COUNT (BEAKER) (test wbcp=289) 0.03 K/ L 0.01-0.08 IMMATURE GRANULOCYTES-RELATIVE PERCENT (BEAKER) 3 % 0-1 (test wlzt=8292) PROTHROMBIN [id number] 04:40:00 Test Item Value Reference Range Comments PROTIME (BEAKER) (test bqss=893) 31.3 seconds 11.9-14.2 INR (BEAKER) (test ptjn=681) 3.2 <=5.9 Effective 10/09/2018: PT Reference Range ChangeNew: 11.9-14.2 Previous: 11.7- 14.7RECOMMENDED COUMADIN/WARFARIN INR THERAPY RANGESSTANDARD DOSE: 2.0-3.0 Includes: PROPHYLAXIS for venous thrombosis, systemic embolization; TREATMENT for venous thrombosis and/or pulmonary embolus.HIGH RISK: Target INR is2.5-3.5 for patients wiht mechanical heart valves.CALCIUM, [id number] 04:33:00 Test Item Value Reference Range Comments CALCIUM IONIZED (BEAKER) (test ounm=758) 1.26 mmol/L 1.12-1.27 PH, BLOOD (BEAKER) (test bnxz=1204) 7.40 POCT-GLUCOSE [id number] 01:05:00 Test Item Value Reference Range Comments POC-GLUCOSE METER (BEAKER) 135 mg/dL 70-[address] [facility] [address] [facility] (test pirv=5688) [facility] [address] BASIC METABOLIC [id number] 21:43:00 Test Item Value Reference Range Comments SODIUM (BEAKER) (test 143 meq/L 136-145 lpxf=678) POTASSIUM (BEAKER) (test 3.3 meq/L 3.5-5.1 oims=989) CHLORIDE (BEAKER) (test 123 meq/L 98-107 cpvx=285) CO2 (BEAKER) (test 16 meq/L 22-29 hvhi=708) BLOOD UREA NITROGEN 13 mg/dL 7-21 (BEAKER) (test refl=538) CREATININE (BEAKER) (test 1.49 mg/dL 0.57-1.25 bpcy=108) GLUCOSE RANDOM (BEAKER) 116 mg/dL 70-105 (test ioea=874) CALCIUM (BEAKER) (test 7.7 mg/dL 8.4-10.2 sgro=549) EGFR (BEAKER) (test 50 mL/min/1.73 sq m ESTIMATED GFR IS NOT oqdf=9795) ACCURATE CREATININE CLEARANCE IN PREDICTING GLOMERULAR FILTRATION RATE. ESTIMATED GFR IS NOT APPLICABLE FOR DIALYSIS PATIENTS. Specimen markedly ictericPOCT-GLUCOSE [id number] 18:17:00 Test Item Value Reference Range Comments POC-GLUCOSE METER (BEAKER) 144 mg/dL 70-[address] [facility] [address] [facility] (test ymjj=3412) [facility] [address] HEPATITIS A ANTIBODY, [id number] 15:54:00 Test Item Value Reference Range Comments HEPATITIS A IGM ANTIBODY (BEAKER) (test Nonreactive Nonreactive jirz=581) BASIC METABOLIC [id number] 15:42:00 Test Item Value Reference Range Comments SODIUM (BEAKER) (test 144 meq/L 136-145 vypy=514) POTASSIUM (BEAKER) (test 3.0 meq/L 3.5-5.1 uoff=831) CHLORIDE (BEAKER) (test 121 meq/L 98-107 zzui=130) CO2 (BEAKER) (test 18 meq/L 22-29 rwfs=254) BLOOD UREA NITROGEN 14 mg/dL 7-21 (BEAKER) (test vwqd=081) CREATININE (BEAKER) (test 1.52 mg/dL 0.57-1.25 vaze=705) GLUCOSE RANDOM (BEAKER) 118 mg/dL 70-105 (test niwp=566) CALCIUM (BEAKER) (test 7.9 mg/dL 8.4-10.2 nruk=155) EGFR (BEAKER) (test 48 mL/min/1.73 sq m ESTIMATED GFR IS NOT eazz=8822) ACCURATE CREATININE CLEARANCE IN PREDICTING GLOMERULAR FILTRATION RATE. ESTIMATED GFR IS NOT APPLICABLE FOR DIALYSIS PATIENTS. Specimen markedly ictericPOCT-GLUCOSE [id number] 12:36:00 Test Item Value Reference Range Comments POC-GLUCOSE METER (BEAKER) 120 mg/dL 70-[address] [facility] [address] (test izof=7408) [facility] [address] [id number] 11:40:00 Test Item Value Reference Range Comments AMMONIA (BEAKER) (test uzpa=597) 146 mol/L 18-72 HEPATITIS C [id number] 11:39:00 Test Item Value Reference Range Comments HEPATITIS C ANTIBODY (BEAKER) (test xull=113) Nonreactive Nonreactive BLOOD GAS, [id number] 11:25:00 Test Item Value Reference Range Comments PH VENOUS (BEAKER) (test bjsb=603) 7.44 7.32-7.42 PCO2 VENOUS (BEAKER) (test jwxc=437) 27 mmHg 41-51 PO2 VENOUS (BEAKER) (test dgus=283) 53 mmHg 25-40 O2 SATURATION VENOUS (BEAKER) (test vzwv=659) 89.6 % 40.0-70.0 HCO3 VENOUS (BEAKER) (test yast=575) 18 mmol/L 21-29 BASE EXCESS VENOUS (BEAKER) (test ppiu=963) -5.3 mmol/L -2.0-3.0 PATIENT TEMPERATURE (BEAKER) (test ulhm=1620) 36.8 C FIO2 (BEAKER) (test yzlw=7071) 21.0 % URINALYSIS W/ REFLEX URINE [id number] 09:48:00 Test Item Value Reference Range Comments COLOR (BEAKER) (test buad=932) Brown CLARITY (BEAKER) (test xggu=347) Clear SPECIFIC GRAVITY UA (BEAKER) (test loda=112) 1.014 1.001-1.035 PH UA (BEAKER) (test paxt=376) 6.5 5.0-8.0 PROTEIN UA (BEAKER) (test qikb=233) 20 mg/dL Negative GLUCOSE UA (BEAKER) (test fvnd=664) Negative Negative KETONES UA (BEAKER) (test whoi=392) 10 mg/dL Negative BILIRUBIN UA (BEAKER) (test brtf=700) Positive Negative BLOOD UA (BEAKER) (test rijy=103) Trace Negative NITRITE UA (BEAKER) (test lzme=821) Negative Negative LEUKOCYTE ESTERASE UA (BEAKER) (test pfch=487) Small Negative UROBILINOGEN UA (BEAKER) (test dnwg=663) 3.0 mg/dL 0.2-1.0 RBC UA (BEAKER) (test bgnh=862) 4 /HPF WBC UA (BEAKER) (test wldt=006) 4 /HPF BACTERIA (BEAKER) (test hcur=782) Occasional MUCUS (BEAKER) (test xfmf=1040) Occasional SQUAMOUS EPITHELIAL (BEAKER) (test jmfm=067) < /HPF CASTS (BEAKER) (test puri=6788) 6 /LPF SOURCE(BEAKER) (test cbws=7513) LACTIC ACID, [id number] 09:31:00 Test Item Value Reference Range Comments LACTATE BLOOD VENOUS (2) (BEAKER) (test 1.5 mmol/L 0.5-2.2 fkks=6785) Specimen markedly ictericPOCT-GLUCOSE [id number] 06:45:00 Test Item Value Reference Range Comments POC-GLUCOSE METER (BEAKER) 149 mg/dL 70-110 TESTED AT [address] (test hpgu=8350) [facility] [address] COMPREHENSIVE METABOLIC [id number] 04:59:00 Test Item Value Reference Range Comments TOTAL PROTEIN (BEAKER) 6.5 gm/dL 6.0-8.3 (test notc=162) ALBUMIN (BEAKER) (test 1.7 g/dL 3.5-5.0 accn=3530) ALKALINE PHOSPHATASE 169 U/L 40-150 (BEAKER) (test jsaa=174) BILIRUBIN TOTAL (BEAKER) 23.5 mg/dL 0.2-1.2 (test ajbj=665) SODIUM (BEAKER) (test 144 meq/L 136-145 eobw=892) POTASSIUM (BEAKER) (test 2.8 meq/L 3.5-5.1 avbz=052) CHLORIDE (BEAKER) (test 119 meq/L 98-107 daox=503) CO2 (BEAKER) (test 19 meq/L 22-29 teqa=547) BLOOD UREA NITROGEN 11 mg/dL 7-21 (BEAKER) (test evyn=635) CREATININE (BEAKER) (test 1.28 mg/dL 0.57-1.25 wmvy=597) GLUCOSE RANDOM (BEAKER) 135 mg/dL 70-105 (test elsa=717) CALCIUM (BEAKER) (test 7.9 mg/dL 8.4-10.2 smuc=685) AST (SGOT) (BEAKER) (test 240 U/L 5-34 ilko=918) ALT (SGPT) (BEAKER) (test 94 U/L 6-55 ndwj=014) EGFR (BEAKER) (test 59 mL/min/1.73 sq m ESTIMATED GFR IS NOT cdwc=2884) ACCURATE CREATININE CLEARANCE IN PREDICTING GLOMERULAR FILTRATION RATE. ESTIMATED GFR IS NOT APPLICABLE FOR DIALYSIS PATIENTS. Specimen markedly [id number] 04:49:00 Test Item Value Reference Range Comments MAGNESIUM (BEAKER) (test ceyt=332) 2.6 mg/dL 1.6-2.6 CREATINE KINASE (CK)2019-01-01 04:49:00 Test Item Value Reference Range Comments CREATINE KINASE TOTAL (BEAKER) (test aocj=282) 451 U/L 29-200 CBC W/PLT COUNT & AUTO [id number] 04:26:00 Test Item Value Reference Range Comments WHITE BLOOD CELL COUNT (BEAKER) (test fpxz=896) 6.4 K/ L 3.5-10.5 RED BLOOD CELL COUNT (BEAKER) (test sxjy=341) 2.67 M/ L 4.63-6.08 HEMOGLOBIN (BEAKER) (test tpmx=947) 9.5 GM/DL 13.7-17.5 HEMATOCRIT (BEAKER) (test bifg=710) 28.4 % 40.1-51.0 MEAN CORPUSCULAR VOLUME (BEAKER) (test ngnu=760) 106.4 fL 79.0-92.2 MEAN CORPUSCULAR HEMOGLOBIN (BEAKER) (test 35.6 pg 25.7-32.2 uxcz=755) MEAN CORPUSCULAR HEMOGLOBIN CONC (BEAKER) (test 33.5 GM/DL 32.3-36.5 tpmo=281) RED CELL DISTRIBUTION WIDTH (BEAKER) (test 27.0 % 11.6-14.4 ctky=864) PLATELET COUNT (BEAKER) (test pahp=291) 48 K/CU MM 150-450 MEAN PLATELET VOLUME (BEAKER) (test rflr=298) 11.1 fL 9.4-12.4 NUCLEATED RED BLOOD CELLS (BEAKER) (test 1 /100 WBC 0-0 prgn=109) NEUTROPHILS RELATIVE PERCENT (BEAKER) (test 79 % elfs=560) LYMPHOCYTES RELATIVE PERCENT (BEAKER) (test 9 % xzmp=849) MONOCYTES RELATIVE PERCENT (BEAKER) (test 10 % fbwm=240) EOSINOPHILS RELATIVE PERCENT (BEAKER) (test 1 % twjj=910) BASOPHILS RELATIVE PERCENT (BEAKER) (test 0 % flso=438) NEUTROPHILS ABSOLUTE COUNT (BEAKER) (test 5.03 K/ L 1.78-5.38 shxa=707) LYMPHOCYTES ABSOLUTE COUNT (BEAKER) (test 0.57 K/ L 1.32-3.57 kshi=136) MONOCYTES ABSOLUTE COUNT (BEAKER) (test ylms=685) 0.66 K/ L 0.30-0.82 EOSINOPHILS ABSOLUTE COUNT (BEAKER) (test 0.03 K/ L 0.04-0.54 ujia=906) BASOPHILS ABSOLUTE COUNT (BEAKER) (test dgyt=602) 0.02 K/ L 0.01-0.08 IMMATURE GRANULOCYTES-RELATIVE PERCENT (BEAKER) 1 % 0-1 (test obxy=7900) SODIUM, RANDOM [id number] 03:59:00 Test Item Value Reference Range Comments SODIUM URINE (BEAKER) (test wvid=006) 22 meq/L Reference Range: No NormalsCREATININE, RANDOM [id number] 03:25:00 Test Item Value Reference Range Comments CREATININE URINE (BEAKER) (test gcre=415) 179.7 mg/dL Reference Range: No NormalsU/S, ABDOMINAL, [id number] 01:12:00With dopplerReason for exam:->elevated liver enzymes; undergoing urgent liver transplant evaluationShould this be performed at the bedside?->YesFINAL REPORT U/S, ABDOMINAL, COMPLETE INDICATION: elevated liver enzymes; undergoing urgent liver transplant evaluation COMPARISON: None TECHNIQUE: Real-time robbins-scale transabdominal and color Doppler ultrasound. FINDINGS:Liver: Size: 16.2cm. Echogenicity: Heterogeneous hepatic echogenicity.. Masses/lesions: None. Surface Nodularity: Present.. Intrahepatic bile ducts: Normal.. Common bile duct: 0.4cm. MPV: 1.3cm. Gallbladder: Stones: None. Sludge: Echogenic sludge is seen layering within the gallbladder lumen.. Wall thickness: 0.3 cm. The gallbladder is somewhat distended. Pericholecystic fluid: None. Sonographic Chowdhury's sign: No sonographic Chowdhury's sign. Pancreas: Head and uncinate process: Not well seen secondaryto poor acoustic windowing.. Body and tail: Not well -seen. Spleen: Size: 13.5cm. Echogenicity: Unremarkable. Right kidney: Size: 11.4 x 6.3 x 6.2 cm. Parenchyma: Normal echogenicity. No cysts. No stones. Hydronephrosis: None. Left kidney: Size: 11.9 x 6.5 x 7.2 cm. Parenchyma: Normal echogenicity. No cysts. No stones. Hydronephrosis : None. Ascites: None. RegionalVasculature: The visible abdominal aorta, IVC are patent. The hepatic veins are not identified. Color and Spectral imaging: The TIPS is patent with antegrade flow. Peak systolic velocities measure: Current velocities: Proximal TIPS 165 cm/sec Mid TIPS 169 cm/sec Distal TIPS 161 cm/sec MPV: Diameter: 1.3 Flow: Hepatopedal. Velocity: 36.2 cm/sec Filling defects: NoneLeft and right portal veins: Patent. Flow: Hepatofugal flow is noted, normal given TIPS Filling defects: None. Hepatic arteries: Patent RI proper hepatic: 0.8 RI right hepatic: 0.8 RI left hepatic: 0.7 IVC, is patent . The hepatic veins are not identified. Additional findings: None. IMPRESSION: Morphologic changes of cirrhosis with sequela of portal hypertension including splenomegaly. Patent TIPS however hepatic veins are not identified on this examination. Biliary sludge versus gallbladder distention however no other findings to suggest acute cholecystitis. Signed: Zaina Mckeon MDReport Verified Date/Time: 2018 01:12:09 Electronically signed by: ZAINA MCKEON MD on 2018 01:12 AMPOCT-GLUCOSE [id number] 00:18:00 Test Item Value Reference Range Comments POC-GLUCOSE METER (BEAKER) 146 mg/dL 70-[address] [facility] [address] [facility] (test bpnt=1013) [facility] [address] ALPHA FETOPROTEIN (AFP), TUMOR [id number] 22:26:00 Test Item Value Reference Range Comments ALPHA-FETOPROTEIN (BEAKER) (test ckkq=0634) < ng/mL <10.0 LACTIC ACID, [id number] 21:50:00 Test Item Value Reference Range Comments LACTATE BLOOD VENOUS (2) (BEAKER) (test 2.7 mmol/L 0.5-2.2 zqfl=1144) Specimen markedly ictericPOCT-GLUCOSE [id number] 21:44:00 Test Item Value Reference Range Comments POC-GLUCOSE METER (BEAKER) 124 mg/dL 70-[address] [facility] [address] [facility] (test dlho=4825) [place] [address] LACTIC ACID, [id number] 21:12:00 Test Item Value Reference Range Comments LACTATE BLOOD VENOUS (2) (BEAKER) (test 2.0 mmol/L 0.5-2.2 hdwt=5965) Specimen markedly ictericRAD, CHEST, 1 VIEW, NON [id number] 20:02:00Post- intubationReason for exam:->aspiration pneumonitisShould this be performed at the bedside?->YesFINAL REPORT AP chest dated 2018 Comment: Heart is normal in size. Pulmonary vasculature is unremarkable. Lungs are clear. No pulmonary infiltrate or pleural effusion. Impression: Normal chest. Signed: Calixto Dalton Verified Date/Time: 12/31/2018 20:02 :55 Reading Location: [address] Consult Reading Room HEPATITIS B SURFACE [id number] 19:40:00 Test Item Value Reference Range Comments HEPATITIS B SURFACE ANTIBODY (BEAKER) (test < mIU/mL <8.0 uhes=872) HEPATITIS A ANTIBODY, [id number] 19:40:00 Test Item Value Reference Range Comments HEPATITIS A IGG ANTIBODY (BEAKER) (test bkkc=9988) Reactive Nonreactive HEPATITIS B SURFACE [id number] 19:37:00 Test Item Value Reference Range Comments HEPATITIS B SURFACE ANTIGEN (2) (BEAKER) (test Nonreactive Nonreactive mfux=5688) HEPATITIS B CORE ANTIBODY, [id number] 19:37:00 Test Item Value Reference Range Comments HEPATITIS B CORE IGM ANTIBODY (BEAKER) (test Nonreactive Nonreactive rqsm=796) [id number] 19:33:00 Test Item Value Reference Range Comments PROCALCITONIN (BEAKER) (test este=2769) 0.24 ng/mL <0.05 SEPSIS RISK (ng/mL)Low: 0.05-0.50Intermediate: 0.51-2.00High: & gt;=2.01COMPREHENSIVE METABOLIC [id number] 19:23:00 Test Item Value Reference Range Comments TOTAL PROTEIN (BEAKER) 7.3 gm/dL 6.0-8.3 (test uzty=823) ALBUMIN (BEAKER) (test 1.9 g/dL 3.5-5.0 jwbx=1371) ALKALINE PHOSPHATASE 194 U/L 40-150 (BEAKER) (test fhco=266) BILIRUBIN TOTAL (BEAKER) 26.2 mg/dL 0.2-1.2 (test vmdn=494) SODIUM (BEAKER) (test 143 meq/L 136-145 obol=302) POTASSIUM (BEAKER) (test 2.8 meq/L 3.5-5.1 ieec=773) CHLORIDE (BEAKER) (test 116 meq/L 98-107 zjnv=085) CO2 (BEAKER) (test 18 meq/L 22-29 zovg=031) BLOOD UREA NITROGEN 10 mg/dL 7-21 (BEAKER) (test zijv=993) CREATININE (BEAKER) (test 1.36 mg/dL 0.57-1.25 urlq=766) GLUCOSE RANDOM (BEAKER) 109 mg/dL 70-105 (test pbmf=484) CALCIUM (BEAKER) (test 7.7 mg/dL 8.4-10.2 dmwe=389) AST (SGOT) (BEAKER) (test 273 U/L 5-34 lhim=824) ALT (SGPT) (BEAKER) (test 109 U/L 6-55 gsuj=538) EGFR (BEAKER) (test 55 mL/min/1.73 sq m ESTIMATED GFR IS NOT jyvf=0448) ACCURATE CREATININE CLEARANCE IN PREDICTING GLOMERULAR FILTRATION RATE. ESTIMATED GFR IS NOT APPLICABLE FOR DIALYSIS PATIENTS. Specimen markedly [id number] 19:22:00 Test Item Value Reference Range Comments MAGNESIUM (BEAKER) (test nutc=177) 1.6 mg/dL 1.6-2.6 CREATINE KINASE (CK)2018-12-31 19:18:00 Test Item Value Reference Range Comments CREATINE KINASE TOTAL (BEAKER) (test jqnv=444) 426 U/L 29-200 PROTHROMBIN [id number] 19:17:00 Test Item Value Reference Range Comments PROTIME (BEAKER) (test cknw=263) 33.9 seconds 11.9-14.2 INR (BEAKER) (test fmme=088) 3.6 <=5.9 Effective 10/09/2018: PT Reference Range ChangeNew: 11.9-14.2 Previous: 11.7- 14.7RECOMMENDED COUMADIN/WARFARIN INR THERAPY RANGESSTANDARD DOSE: 2.0-3.0 Includes: PROPHYLAXIS for venous thrombosis, systemic embolization; TREATMENT for venous thrombosis and/or pulmonary embolus.HIGH RISK: Target INR is2.5-3.5 for patients wiht mechanical heart valves.[id number] 19:17:00 Test Item Value Reference Range Comments AMYLASE (BEAKER) (test fyrk=269) 36 U/L 25-125 Specimen markedly [id number] 19:17:00 Test Item Value Reference Range Comments LIPASE (BEAKER) (test zyxs=779) 34 U/L 8-78 Specimen markedly [id number] 19:14:00 Test Item Value Reference Range Comments ETHANOL (BEAKER) (test whtu=177) < mg/dL <=10 LACTIC ACID, [id number] 19:13:00 Test Item Value Reference Range Comments LACTATE BLOOD VENOUS (2) (BEAKER) (test 2.9 mmol/L 0.5-2.2 sutp=0238) Specimen markedly ictericCBC W/PLT COUNT & AUTO [id number] 19:06 :00 Test Item Value Reference Range Comments WHITE BLOOD CELL COUNT (BEAKER) (test bsnv=790) 6.4 K/ L 3.5-10.5 RED BLOOD CELL COUNT (BEAKER) (test hgrl=701) 2.88 M/ L 4.63-6.08 HEMOGLOBIN (BEAKER) (test nbch=050) 10.1 GM/DL 13.7-17.5 HEMATOCRIT (BEAKER) (test kyzc=454) 30.3 % 40.1-51.0 MEAN CORPUSCULAR VOLUME (BEAKER) (test nryc=572) 105.2 fL 79.0-92.2 MEAN CORPUSCULAR HEMOGLOBIN (BEAKER) (test 35.1 pg 25.7-32.2 voch=350) MEAN CORPUSCULAR HEMOGLOBIN CONC (BEAKER) (test 33.3 GM/DL 32.3-36.5 bjpk=993) RED CELL DISTRIBUTION WIDTH (BEAKER) (test 26.9 % 11.6-14.4 qcjr=178) PLATELET COUNT (BEAKER) (test lqoo=721) 43 K/CU MM 150-450 MEAN PLATELET VOLUME (BEAKER) (test edvt=461) 10.6 fL 9.4-12.4 NUCLEATED RED BLOOD CELLS (BEAKER) (test 0 /100 WBC 0-0 gwje=755) NEUTROPHILS RELATIVE PERCENT (BEAKER) (test 82 % zwbn=883) LYMPHOCYTES RELATIVE PERCENT (BEAKER) (test 6 % iwpx=317) MONOCYTES RELATIVE PERCENT (BEAKER) (test 10 % ougm=044) EOSINOPHILS RELATIVE PERCENT (BEAKER) (test 0 % nqwm=112) BASOPHILS RELATIVE PERCENT (BEAKER) (test 0 % ebet=676) NEUTROPHILS ABSOLUTE COUNT (BEAKER) (test 5.22 K/ L 1.78-5.38 xest=816) LYMPHOCYTES ABSOLUTE COUNT (BEAKER) (test 0.38 K/ L 1.32-3.57 tshg=403) MONOCYTES ABSOLUTE COUNT (BEAKER) (test ijzm=019) 0.65 K/ L 0.30-0.82 EOSINOPHILS ABSOLUTE COUNT (BEAKER) (test 0.01 K/ L 0.04-0.54 peom=132) BASOPHILS ABSOLUTE COUNT (BEAKER) (test nkja=861) 0.02 K/ L 0.01-0.08 IMMATURE GRANULOCYTES-RELATIVE PERCENT (BEAKER) 1 % 0-1 (test dspc=3095) RAD, ABDOMEN/KUB, 1 VIEW [id number] 18:45:00Reason for exam:->ngt placementFINAL REPORT Abdomen dated 12/31/2018 Comment: Abdomen was examined in the supine frontal position. Air is seen in the small and large bowel. There is dilatation of the small bowel in the mid abdomen measuring up to 2.9 cm in size. No mass, pathological calcification, or free airis present. Impression: Early small bowel obstruction or ileus. Signed: Calixto Dalton MDReport Verified Date/Time: 12/31/2018 18:45:20 Reading Location: [address] Consult Reading Room MISCELLANEOUS LAB [id number] 10:33:00 Test Item Value Reference Range Comments SCAN RESULT (test kqin=[id number]) CBC W/PLT COUNT & AUTO [id number] 09:42:00 Test Item Value Reference Range Comments WHITE BLOOD CELL COUNT (BEAKER) (test qwtx=809) 21.3 K/ L 3.5-10.5 RED BLOOD CELL COUNT (BEAKER) (test ailn=824) 2.38 M/ L 4.63-6.08 HEMOGLOBIN (BEAKER) (test rwbg=354) 7.7 GM/DL 13.7-17.5 HEMATOCRIT (BEAKER) (test stvv=359) 24.1 % 40.1-51.0 MEAN CORPUSCULAR VOLUME (BEAKER) (test wnhj=359) 101.3 fL 79.0-92.2 MEAN CORPUSCULAR HEMOGLOBIN (BEAKER) (test 32.4 pg 25.7-32.2 rnhd=492) MEAN CORPUSCULAR HEMOGLOBIN CONC (BEAKER) (test 32.0 GM/DL 32.3-36.5 oxfd=708) RED CELL DISTRIBUTION WIDTH (BEAKER) (test 26.3 % 11.6-14.4 reob=617) PLATELET COUNT (BEAKER) (test kypp=555) 62 K/CU MM 150-450 MEAN PLATELET VOLUME (BEAKER) (test ngto=274) 10.8 fL 9.4-12.4 NUCLEATED RED BLOOD CELLS (BEAKER) (test 1 /100 WBC 0-0 irra=996) (CELLAVISION MANUAL DIFF)2018-02-07 09:42:00 Test Item Value Reference Range Comments NEUTROPHILS - REL (CELLAVISION)(BEAKER) (test 90 % zudi=1774) LYMPHOCYTES - REL (CELLAVISION)(BEAKER) (test 3 % pmtz=3165) MONOCYTES - REL (CELLAVISION)(BEAKER) (test 5 % pkhi=4856) METAMYELOCYTES - REL (CELLAVISION)(BEAKER) (test 1 % 0-0 niqp=5874) BANDS - REL (CELLAVISION)(BEAKER) (test 1 % 0-10 wlvh=0372) NEUTROPHILS - ABS (CELLAVISION)(BEAKER) (test 19.17 K/ul 1.78-5.38 rtfg=5512) LYMPHOCYTES - ABS (CELLAVISION)(BEAKER) (test 0.64 K/ul 1.32-3.57 zyxv=8546) MONOCYTES - ABS (CELLAVISION)(BEAKER) (test 1.07 K/uL 0.30-0.82 hnvv=1908) METAMYELOCYTES - ABS (CELLAVISION)(BEAKER) (test 0.21 K/uL 0.00-0.00 mcnp=6436) BANDS - ABS (CELLAVISION)(BEAKER) (test 0.21 K/uL 0.00-0.80 qdbe=7213) TOTAL COUNTED (BEAKER) (test mtnr=2567) 100 MANUAL NRBC PER 100 CELLS (BEAKER) (test 3 /100 WBC 0-0 slza=8614) WBC MORPHOLOGY (BEAKER) (test zdrp=311) Normal PLT MORPHOLOGY (BEAKER) (test ksev=629) Normal POLYCHROMATOPHILLIC RBCS(BEAKER) (test adad=939) 2+ moderate HYPOCHROMIA (BEAKER) (test wgqs=437) 1+ few MEG CELLS (BEAKER) (test dpbe=202) 2+ moderate BASOPHILIC STIPPLING (BEAKER) (test jpiy=515) Present ARTIFACT (CELLAVISION)(BEAKER) (test qrrv=1915) Present PLATELET CONCENTRATION (CELLAVISION)(BEAKER) Decreased (test zame=2199) Received comment: User comments: Slide comments:HEPATIC FUNCTION [id number] 08:52:00 Test Item Value Reference Range Comments TOTAL PROTEIN (BEAKER) (test 5.0 gm/dL 6.0-8.3 Specimen slightly hemolyzed mgtu=739) ALBUMIN (BEAKER) (test 1.7 g/dL 3.5-5.0 Specimen slightly hemolyzed tztr=3761) BILIRUBIN TOTAL (BEAKER) (test 14.7 mg/dL 0.2-1.2 Specimen slightly hemolyzed trbw=627) BILIRUBIN DIRECT (BEAKER) 9.5 mg/dL 0.1-0.5 Specimen slightly hemolyzed (test tfay=331) ALKALINE PHOSPHATASE (BEAKER) 240 U/L 40-150 (test eckt=975) AST (SGOT) (BEAKER) (test 220 U/L 5-34 Specimen slightly hemolyzed quou=980) ALT (SGPT) (BEAKER) (test 178 U/L 6-55 Specimen slightly hemolyzed iesf=440) Specimen markedly ictericPOCT-GLUCOSE [id number] 08:27:00 Test Item Value Reference Range Comments POC-GLUCOSE METER (BEAKER) 157 mg/dL 70-110 TESTED AT [address] (test prjg=7081) [facility] [address] BASIC METABOLIC [id number] 06:53:00 Test Item Value Reference Range Comments SODIUM (BEAKER) (test 132 meq/L 136-145 bucf=347) POTASSIUM (BEAKER) (test 3.7 meq/L 3.5-5.1 dwqd=216) CHLORIDE (BEAKER) (test 104 meq/L 98-107 vawd=901) CO2 (BEAKER) (test 24 meq/L 22-29 donu=537) BLOOD UREA NITROGEN 25 mg/dL 7-21 (BEAKER) (test uhnz=239) CREATININE (BEAKER) (test 0.86 mg/dL 0.57-1.25 stle=682) GLUCOSE RANDOM (BEAKER) 100 mg/dL 70-105 (test qrpe=381) CALCIUM (BEAKER) (test 7.7 mg/dL 8.4-10.2 zgvk=652) EGFR (BEAKER) (test 94 mL/min/1.73 sq m ESTIMATED GFR IS NOT padf=1667) ACCURATE CREATININE CLEARANCE IN PREDICTING GLOMERULAR FILTRATION RATE. ESTIMATED GFR IS NOT APPLICABLE FOR DIALYSIS PATIENTS. Specimen markedly [id number] 06:34:00 Test Item Value Reference Range Comments MAGNESIUM (BEAKER) (test qhzl=173) 1.4 mg/dL 1.6-2.6 PROTHROMBIN [id number] 06:32:00 Test Item Value Reference Range Comments PROTIME (BEAKER) (test fsug=724) 24.6 seconds 11.7-14.7 INR (BEAKER) (test oeni=720) 2.2 <=5.9 RECOMMENDED COUMADIN/WARFARIN INR THERAPY RANGESSTANDARD DOSE: 2.0 - 3.0 Includes: PROPHYLAXIS forvenous thrombosis, systemic embolization; TREATMENT for venous thrombosis and/or pulmonary embolus.HIGH RISK: Target INR is 2.5-3.5 for patients with mechanical heart valves.POCT-GLUCOSE [id number] 22:37:00 Test Item Value Reference Range Comments POC-GLUCOSE METER (BEAKER) 158 mg/dL 70-110 TESTED AT [address] (test svmf=8806) [place] [address] POCT-GLUCOSE [id number] 17:38:00 Test Item Value Reference Range Comments POC-GLUCOSE METER (BEAKER) 176 mg/dL 70-110 TESTED AT [address] (test fptx=1646) [place] [address] POCT-GLUCOSE [id number] 13:55:00 Test Item Value Reference Range Comments POC-GLUCOSE METER (BEAKER) 144 mg/dL 70-110 TESTED AT [address] (test azxv=1317) [place] [address] RAD, CHEST, 1 VIEW, NON [id number] 11:35:00Reason for exam:->shortness of breathShould this be performed at the bedside?->YesFINAL REPORT CLINICAL HISTORY: shortness of breath TECHNIQUE: 1 view of the chest. COMPARISON: 02/03/2018 IMPRESSION: There is decreased left lung base consolidation and a decreased small left pleural effusion. The right lung is free of infiltrates or significant effusions. The cardiomediastinal silhouette is within normal limits for size. Signed: Sona Sainzort Verified Date/ Time: 02/06/2018 11:35:31 Reading Location: [facility] Radiology Reading Room STOOL CULTURE + SHIGA [id number] 10:55:00 Test Item Value Reference Range Comments CULTURE (BEAKER) (test No Salmonella, Shigella or zauq=6241) Campylobacter isolated POCT-GLUCOSE [id number] 07:40:00 Test Item Value Reference Range Comments POC-GLUCOSE METER (BEAKER) 136 mg/dL 70-[address] [facility] [address] [facility] (test hxje=0314) [facility] [address] CBC W/PLT COUNT & AUTO [id number] 07:37:00 Test Item Value Reference Range Comments WHITE BLOOD CELL COUNT (BEAKER) (test yeco=013) 22.5 K/ L 3.5-10.5 RED BLOOD CELL COUNT (BEAKER) (test yflx=390) 2.13 M/ L 4.63-6.08 HEMOGLOBIN (BEAKER) (test viid=575) 6.9 GM/DL 13.7-17.5 HEMATOCRIT (BEAKER) (test cmbf=054) 21.6 % 40.1-51.0 MEAN CORPUSCULAR VOLUME (BEAKER) (test ovhj=849) 101.4 fL 79.0-92.2 MEAN CORPUSCULAR HEMOGLOBIN (BEAKER) (test 32.4 pg 25.7-32.2 tott=571) MEAN CORPUSCULAR HEMOGLOBIN CONC (BEAKER) (test 31.9 GM/DL 32.3-36.5 wlve=801) RED CELL DISTRIBUTION WIDTH (BEAKER) (test 26.5 % 11.6-14.4 hijw=217) PLATELET COUNT (BEAKER) (test wvjg=051) 64 K/CU MM 150-450 MEAN PLATELET VOLUME (BEAKER) (test rmbv=176) 11.6 fL 9.4-12.4 NUCLEATED RED BLOOD CELLS (BEAKER) (test 0 /100 WBC 0-0 udms=622) (CELLAVISION MANUAL DIFF)2018-02-06 07:37:00 Test Item Value Reference Range Comments NEUTROPHILS - REL (CELLAVISION)(BEAKER) (test 88 % bcba=7185) LYMPHOCYTES - REL (CELLAVISION)(BEAKER) (test 2 % spnv=0354) MONOCYTES - REL (CELLAVISION)(BEAKER) (test 5 % krvi=0957) MYELOCYTES - REL (CELLAVISION)(BEAKER) (test 5 % 0-0 airi=3897) NEUTROPHILS - ABS (CELLAVISION)(BEAKER) (test 19.80 K/ul 1.78-5.38 pfgw=1150) LYMPHOCYTES - ABS (CELLAVISION)(BEAKER) (test 0.45 K/ul 1.32-3.57 qkvl=2958) MONOCYTES - ABS (CELLAVISION)(BEAKER) (test 1.13 K/uL 0.30-0.82 hgxf=2048) MYELOCYTES-ABS (CELLAVISION)(BEAKER) (test 1.13 K/uL 0.00-0.00 qogd=6855) TOTAL COUNTED (BEAKER) (test efdi=2468) 100 SMUDGE CELLS (BEAKER) (test hodp=6057) Present GIANT PLATELETS (BEAKER) (test zlea=580) Present POLYCHROMATOPHILLIC RBCS(BEAKER) (test fnja=900) 1+ few ANISOCYTOSIS (BEAKER) (test gjcw=107) 3+ many MACROCYTES (BEAKER) (test jrhv=790) 3+ many POIKILOCYTES (BEAKER) (test paoz=171) 2+ moderate TARGET CELLS (BEAKER) (test lthv=662) 1+ few MEG CELLS (BEAKER) (test ftye=287) 2+ moderate BASOPHILIC STIPPLING (BEAKER) (test hqtz=819) Present PLATELET CONCENTRATION (CELLAVISION)(BEAKER) Decreased (test lzxj=4327) Received comment: User comments: Slide comments:BLOOD [id number] 06:00:00 Test Item Value Reference Range Comments CULTURE (BEAKER) (test ouwj=6775) No growth in 5 days BLOOD [id number] 06:00:00 Test Item Value Reference Range Comments CULTURE (BEAKER) (test bvim=1955) No growth in 5 days COMPREHENSIVE METABOLIC [id number] 05:01:00 Test Item Value Reference Range Comments TOTAL PROTEIN (BEAKER) 4.9 gm/dL 6.0-8.3 (test alxb=289) ALBUMIN (BEAKER) (test 1.7 g/dL 3.5-5.0 nswe=2487) ALKALINE PHOSPHATASE 242 U/L 40-150 (BEAKER) (test lpom=733) BILIRUBIN TOTAL (BEAKER) 14.5 mg/dL 0.2-1.2 (test rmxc=615) SODIUM (BEAKER) (test 134 meq/L 136-145 vgkh=956) POTASSIUM (BEAKER) (test 3.7 meq/L 3.5-5.1 uztn=085) CHLORIDE (BEAKER) (test 104 meq/L 98-107 squb=445) CO2 (BEAKER) (test 24 meq/L 22-29 tcme=842) BLOOD UREA NITROGEN 33 mg/dL 7-21 (BEAKER) (test gjar=152) CREATININE (BEAKER) (test 0.94 mg/dL 0.57-1.25 lrka=115) GLUCOSE RANDOM (BEAKER) 125 mg/dL 70-105 (test tgja=913) CALCIUM (BEAKER) (test 7.6 mg/dL 8.4-10.2 tebu=471) AST (SGOT) (BEAKER) (test 202 U/L 5-34 iemb=921) ALT (SGPT) (BEAKER) (test 172 U/L 6-55 ydop=543) EGFR (BEAKER) (test 85 mL/min/1.73 sq m ESTIMATED GFR IS NOT ogux=4820) ACCURATE CREATININE CLEARANCE IN PREDICTING GLOMERULAR FILTRATION RATE. ESTIMATED GFR IS NOT APPLICABLE FOR DIALYSIS PATIENTS. Specimen markedly [id number] 04:57:00 Test Item Value Reference Range Comments PHOSPHORUS (BEAKER) (test pxmf=482) 2.4 mg/dL 2.3-4.7 [id number] 04:57:00 Test Item Value Reference Range Comments MAGNESIUM (BEAKER) (test mupl=452) 1.4 mg/dL 1.6-2.6 CALCIUM, [id number] 04:48:00 Test Item Value Reference Range Comments CALCIUM IONIZED (BEAKER) (test ebko=612) 1.04 mmol/L 1.12-1.27 PH, BLOOD (BEAKER) (test nevy=0944) 7.49 PROTHROMBIN TIME/[id number] 04:48:00 Test Item Value Reference Range Comments PROTIME (BEAKER) (test wzbe=464) 25.3 seconds 11.7-14.7 INR (BEAKER) (test fpju=955) 2.3 <=5.9 RECOMMENDED COUMADIN/WARFARIN INR THERAPY RANGESSTANDARD DOSE: 2.0 - 3.0 Includes: PROPHYLAXIS forvenous thrombosis, systemic embolization; TREATMENT for venous thrombosis and/or pulmonary embolus.HIGH RISK: Target INR is 2.5-3.5 for patients with mechanical heart valves.POCT-GLUCOSE [id number] 22:46:00 Test Item Value Reference Range Comments POC-GLUCOSE METER (BEAKER) 152 mg/dL 70-110 TESTED AT [address] (test gfrx=2884) [place] [address] POCT-GLUCOSE [id number] 18:27:00 Test Item Value Reference Range Comments POC-GLUCOSE METER (BEAKER) 159 mg/dL 70-110 TESTED AT [address] (test akil=3601) [place] [address] STOOL PATH [id number] 16:32:00 Test Item Value Reference Range Comments PATHOGEN EXAM CHARGED (BEAKER) (test yamk=7387) Done SHIGA TOXIN [id number] 16:08:00 Test Item Value Reference Range Comments SHIGA TOXIN 1 (BEAKER) (test psst=3312) Not detected Not detected SHIGA TOXIN 2 (BEAKER) (test bkwv=4411) Not detected Not detected POCT-GLUCOSE [id number] 07:39:00 Test Item Value Reference Range Comments POC-GLUCOSE METER (BEAKER) 138 mg/dL 70-110 TESTED AT [address] (test ifdz=6278) [place] [address] COMPREHENSIVE METABOLIC [id number] 05:29:00 Test Item Value Reference Range Comments TOTAL PROTEIN (BEAKER) 5.2 gm/dL 6.0-8.3 (test muzz=327) ALBUMIN (BEAKER) (test 1.7 g/dL 3.5-5.0 fiis=9732) ALKALINE PHOSPHATASE 259 U/L 40-150 (BEAKER) (test kxop=583) BILIRUBIN TOTAL (BEAKER) 14.2 mg/dL 0.2-1.2 (test xdmd=187) SODIUM (BEAKER) (test 135 meq/L 136-145 eozc=006) POTASSIUM (BEAKER) (test 3.8 meq/L 3.5-5.1 cipw=814) CHLORIDE (BEAKER) (test 105 meq/L 98-107 mxcq=891) CO2 (BEAKER) (test 25 meq/L 22-29 cwnd=313) BLOOD UREA NITROGEN 37 mg/dL 7-21 (BEAKER) (test tdnh=636) CREATININE (BEAKER) (test 1.10 mg/dL 0.57-1.25 mmty=438) GLUCOSE RANDOM (BEAKER) 136 mg/dL 70-105 (test igcu=078) CALCIUM (BEAKER) (test 7.6 mg/dL 8.4-10.2 bevd=080) AST (SGOT) (BEAKER) (test 191 U/L 5-34 efqq=641) ALT (SGPT) (BEAKER) (test 164 U/L 6-55 gomy=985) EGFR (BEAKER) (test 71 mL/min/1.73 sq m ESTIMATED GFR IS NOT pksu=9448) ACCURATE CREATININE CLEARANCE IN PREDICTING GLOMERULAR FILTRATION RATE. ESTIMATED GFR IS NOT APPLICABLE FOR DIALYSIS PATIENTS. Specimen markedly [id number] 05:23:00 Test Item Value Reference Range Comments PHOSPHORUS (BEAKER) (test kyyd=941) 3.1 mg/dL 2.3-4.7 [id number] 05:23:00 Test Item Value Reference Range Comments MAGNESIUM (BEAKER) (test ysal=931) 1.6 mg/dL 1.6-2.6 CALCIUM, [id number] 05:13:00 Test Item Value Reference Range Comments CALCIUM IONIZED (BEAKER) (test tnmb=938) 1.01 mmol/L 1.12-1.27 PH, BLOOD (BEAKER) (test bjff=6007) 7.48 CBC W/PLT COUNT & AUTO [id number] 05:10:00 Test Item Value Reference Range Comments WHITE BLOOD CELL COUNT (BEAKER) (test xnvl=693) 18.0 K/ L 3.5-10.5 RED BLOOD CELL COUNT (BEAKER) (test uabc=243) 2.31 M/ L 4.63-6.08 HEMOGLOBIN (BEAKER) (test nvzo=731) 7.4 GM/DL 13.7-17.5 HEMATOCRIT (BEAKER) (test hvtx=770) 23.2 % 40.1-51.0 MEAN CORPUSCULAR VOLUME (BEAKER) (test ebvj=724) 100.4 fL 79.0-92.2 MEAN CORPUSCULAR HEMOGLOBIN (BEAKER) (test 32.0 pg 25.7-32.2 rwxk=879) MEAN CORPUSCULAR HEMOGLOBIN CONC (BEAKER) (test 31.9 GM/DL 32.3-36.5 xrzn=771) RED CELL DISTRIBUTION WIDTH (BEAKER) (test 25.3 % 11.6-14.4 vjxc=459) PLATELET COUNT (BEAKER) (test uaiv=570) 54 K/CU MM 150-450 MEAN PLATELET VOLUME (BEAKER) (test fefx=096) 11.6 fL 9.4-12.4 NUCLEATED RED BLOOD CELLS (BEAKER) (test 0 /100 WBC 0-0 mbsn=456) NEUTROPHILS RELATIVE PERCENT (BEAKER) (test 87 % lmtn=443) LYMPHOCYTES RELATIVE PERCENT (BEAKER) (test 4 % iafq=850) MONOCYTES RELATIVE PERCENT (BEAKER) (test 6 % lenk=935) EOSINOPHILS RELATIVE PERCENT (BEAKER) (test 0 % yuli=110) BASOPHILS RELATIVE PERCENT (BEAKER) (test 0 % oxpu=032) NEUTROPHILS ABSOLUTE COUNT (BEAKER) (test 15.55 K/ L 1.78-5.38 zxir=060) LYMPHOCYTES ABSOLUTE COUNT (BEAKER) (test 0.78 K/ L 1.32-3.57 xaeb=899) MONOCYTES ABSOLUTE COUNT (BEAKER) (test zqao=512) 1.07 K/ L 0.30-0.82 EOSINOPHILS ABSOLUTE COUNT (BEAKER) (test 0.00 K/ L 0.04-0.54 ryzz=547) BASOPHILS ABSOLUTE COUNT (BEAKER) (test tzxy=380) 0.02 K/ L 0.01-0.08 IMMATURE GRANULOCYTES-RELATIVE PERCENT (BEAKER) 3 % 0-1 (test vnfw=6483) PROTHROMBIN [id number] 05:01:00 Test Item Value Reference Range Comments PROTIME (BEAKER) (test vtfw=691) 26.0 seconds 11.7-14.7 INR (BEAKER) (test qqxe=633) 2.4 <=5.9 RECOMMENDED COUMADIN/WARFARIN INR THERAPY RANGESSTANDARD DOSE: 2.0 - 3.0 Includes: PROPHYLAXIS forvenous thrombosis, systemic embolization; TREATMENT for venous thrombosis and/or pulmonary embolus.HIGH RISK: Target INR is 2.5-3.5 for patients with mechanical heart valves.CRYPTOCOCCAL [id number] 02:15: 00 Test Item Value Reference Range Comments CRYPTOCOCCAL ANTIGEN, SERUM (BEAKER) (test Negative Negative, Interference jaxr=3245) POCT-GLUCOSE [id number] 23:10:00 Test Item Value Reference Range Comments POC-GLUCOSE METER (BEAKER) 142 mg/dL 70-110 TESTED AT [address] (test golb=9961) [place] [id number] POCT-GLUCOSE [id number] 17:45:00 Test Item Value Reference Range Comments POC-GLUCOSE METER (BEAKER) 164 mg/dL 70-110 TESTED AT [address] (test nlxx=1867) [place] [id number] POCT-GLUCOSE [id number] 12:27:00 Test Item Value Reference Range Comments POC-GLUCOSE METER (BEAKER) 229 mg/dL 70-110 TESTED AT [address] (test rrio=0158) [facility] [address] CBC W/PLT COUNT & AUTO [id number] 12:17:00 Test Item Value Reference Range Comments WHITE BLOOD CELL COUNT (BEAKER) (test uccr=549) 17.0 K/ L 3.5-10.5 RED BLOOD CELL COUNT (BEAKER) (test iypb=622) 2.32 M/ L 4.63-6.08 HEMOGLOBIN (BEAKER) (test nkar=682) 7.5 GM/DL 13.7-17.5 HEMATOCRIT (BEAKER) (test jitb=831) 23.2 % 40.1-51.0 MEAN CORPUSCULAR VOLUME (BEAKER) (test oapf=948) 100.0 fL 79.0-92.2 MEAN CORPUSCULAR HEMOGLOBIN (BEAKER) (test 32.3 pg 25.7-32.2 vbzs=832) MEAN CORPUSCULAR HEMOGLOBIN CONC (BEAKER) (test 32.3 GM/DL 32.3-36.5 ntge=056) RED CELL DISTRIBUTION WIDTH (BEAKER) (test 24.5 % 11.6-14.4 fmka=941) PLATELET COUNT (BEAKER) (test zavr=119) 58 K/CU MM 150-450 MEAN PLATELET VOLUME (BEAKER) (test guzy=251) 11.7 fL 9.4-12.4 NUCLEATED RED BLOOD CELLS (BEAKER) (test 0 /100 WBC 0-0 ktfb=571) NEUTROPHILS RELATIVE PERCENT (BEAKER) (test 88 % ympw=472) LYMPHOCYTES RELATIVE PERCENT (BEAKER) (test 4 % otlp=419) MONOCYTES RELATIVE PERCENT (BEAKER) (test 6 % ihiw=081) EOSINOPHILS RELATIVE PERCENT (BEAKER) (test 0 % absu=223) BASOPHILS RELATIVE PERCENT (BEAKER) (test 0 % pnom=248) NEUTROPHILS ABSOLUTE COUNT (BEAKER) (test 14.98 K/ L 1.78-5.38 gmio=257) LYMPHOCYTES ABSOLUTE COUNT (BEAKER) (test 0.62 K/ L 1.32-3.57 rexx=241) MONOCYTES ABSOLUTE COUNT (BEAKER) (test jrbg=329) 1.03 K/ L 0.30-0.82 EOSINOPHILS ABSOLUTE COUNT (BEAKER) (test 0.00 K/ L 0.04-0.54 oela=444) BASOPHILS ABSOLUTE COUNT (BEAKER) (test xrju=446) 0.02 K/ L 0.01-0.08 IMMATURE GRANULOCYTES-RELATIVE PERCENT (BEAKER) 2 % 0-1 (test ltzq=2504) BLOOD [id number] 11:00:00 Test Item Value Reference Range Comments CULTURE (BEAKER) (test hnzh=8193) No growth in 5 days BLOOD [id number] 11:00:00 Test Item Value Reference Range Comments CULTURE (BEAKER) (test uapn=0072) No growth in 5 days HEMOGLOBIN AND [id number] 08:52:00 Test Item Value Reference Range Comments HEMOGLOBIN (BEAKER) (test zcij=312) 8.3 GM/DL 13.7-17.5 HEMATOCRIT (BEAKER) (test otnt=844) 25.3 % 40.1-51.0 POCT-GLUCOSE [id number] 08:08:00 Test Item Value Reference Range Comments POC-GLUCOSE METER (BEAKER) 154 mg/dL 70-[address] [facility] [address] [facility] (test ghqb=8726) [facility] [address] HEMOGLOBIN AND [id number] 05:03:00 Test Item Value Reference Range Comments HEMOGLOBIN (BEAKER) (test wida=639) 7.8 GM/DL 13.7-17.5 HEMATOCRIT (BEAKER) (test atlp=471) 24.3 % 40.1-51.0 COMPREHENSIVE METABOLIC [id number] 04:24:00 Test Item Value Reference Range Comments TOTAL PROTEIN (BEAKER) 5.0 gm/dL 6.0-8.3 (test gnmw=142) ALBUMIN (BEAKER) (test 1.7 g/dL 3.5-5.0 jxou=4942) ALKALINE PHOSPHATASE 254 U/L 40-150 (BEAKER) (test ozyt=484) BILIRUBIN TOTAL (BEAKER) 13.9 mg/dL 0.2-1.2 (test otgo=320) SODIUM (BEAKER) (test 136 meq/L 136-145 piyb=511) POTASSIUM (BEAKER) (test 3.7 meq/L 3.5-5.1 aorm=996) CHLORIDE (BEAKER) (test 106 meq/L 98-107 qamw=857) CO2 (BEAKER) (test 25 meq/L 22-29 jzjz=949) BLOOD UREA NITROGEN 38 mg/dL 7-21 (BEAKER) (test wgxb=440) CREATININE (BEAKER) (test 1.17 mg/dL 0.57-1.25 fitm=755) GLUCOSE RANDOM (BEAKER) 121 mg/dL 70-105 (test mvzc=344) CALCIUM (BEAKER) (test 7.6 mg/dL 8.4-10.2 kghs=732) AST (SGOT) (BEAKER) (test 176 U/L 5-34 kqwu=894) ALT (SGPT) (BEAKER) (test 147 U/L 6-55 tfth=370) EGFR (BEAKER) (test 66 mL/min/1.73 sq m ESTIMATED GFR IS NOT itrl=4845) ACCURATE CREATININE CLEARANCE IN PREDICTING GLOMERULAR FILTRATION RATE. ESTIMATED GFR IS NOT APPLICABLE FOR DIALYSIS PATIENTS. Specimen markedly [id number] 04:11:00 Test Item Value Reference Range Comments PHOSPHORUS (BEAKER) (test layg=541) 3.3 mg/dL 2.3-4.7 [id number] 04:11:00 Test Item Value Reference Range Comments MAGNESIUM (BEAKER) (test bqpl=180) 1.8 mg/dL 1.6-2.6 CBC W/PLT COUNT & AUTO [id number] 04:00:00 Test Item Value Reference Range Comments WHITE BLOOD CELL COUNT (BEAKER) (test hjtf=443) 13.0 K/ L 3.5-10.5 RED BLOOD CELL COUNT (BEAKER) (test wbrf=982) 2.14 M/ L 4.63-6.08 HEMOGLOBIN (BEAKER) (test yskz=829) 6.7 GM/DL 13.7-17.5 HEMATOCRIT (BEAKER) (test akgt=049) 21.1 % 40.1-51.0 MEAN CORPUSCULAR VOLUME (BEAKER) (test qykt=272) 98.6 fL 79.0-92.2 MEAN CORPUSCULAR HEMOGLOBIN (BEAKER) (test 31.3 pg 25.7-32.2 oqfn=815) MEAN CORPUSCULAR HEMOGLOBIN CONC (BEAKER) (test 31.8 GM/DL 32.3-36.5 lhwj=514) RED CELL DISTRIBUTION WIDTH (BEAKER) (test 23.9 % 11.6-14.4 pkai=798) PLATELET COUNT (BEAKER) (test sppq=932) 51 K/CU MM 150-450 MEAN PLATELET VOLUME (BEAKER) (test ypip=820) 11.3 fL 9.4-12.4 NUCLEATED RED BLOOD CELLS (BEAKER) (test 0 /100 WBC 0-0 qqmv=907) NEUTROPHILS RELATIVE PERCENT (BEAKER) (test 88 % zedy=016) LYMPHOCYTES RELATIVE PERCENT (BEAKER) (test 4 % kuin=120) MONOCYTES RELATIVE PERCENT (BEAKER) (test 6 % rjeb=888) EOSINOPHILS RELATIVE PERCENT (BEAKER) (test 0 % yjih=508) BASOPHILS RELATIVE PERCENT (BEAKER) (test 0 % hswd=430) NEUTROPHILS ABSOLUTE COUNT (BEAKER) (test 11.40 K/ L 1.78-5.38 srrh=725) LYMPHOCYTES ABSOLUTE COUNT (BEAKER) (test 0.52 K/ L 1.32-3.57 efod=588) MONOCYTES ABSOLUTE COUNT (BEAKER) (test grrr=975) 0.83 K/ L 0.30-0.82 EOSINOPHILS ABSOLUTE COUNT (BEAKER) (test 0.00 K/ L 0.04-0.54 qsce=840) BASOPHILS ABSOLUTE COUNT (BEAKER) (test jibh=524) 0.02 K/ L 0.01-0.08 IMMATURE GRANULOCYTES-RELATIVE PERCENT (BEAKER) 2 % 0-1 (test rrkk=3137) PROTHROMBIN [id number] 03:59:00 Test Item Value Reference Range Comments PROTIME (BEAKER) (test mwcb=833) 25.8 seconds 11.7-14.7 INR (BEAKER) (test itvd=500) 2.4 <=5.9 RECOMMENDED COUMADIN/WARFARIN INR THERAPY RANGESSTANDARD DOSE: 2.0 - 3.0 Includes: PROPHYLAXIS forvenous thrombosis, systemic embolization; TREATMENT for venous thrombosis and/or pulmonary embolus.HIGH RISK: Target INR is 2.5-3.5 for patients with mechanical heart valves.CALCIUM, [id number] 03:42:00 Test Item Value Reference Range Comments CALCIUM IONIZED (BEAKER) (test bgek=324) 1.12 mmol/L 1.12-1.27 PH, BLOOD (BEAKER) (test tmcj=1783) 7.46 POCT-GLUCOSE [id number] 22:12:00 Test Item Value Reference Range Comments POC-GLUCOSE METER (BEAKER) 239 mg/dL 70-110 TESTED AT [address] (test ahvb=9258) [place] [id number] POCT-GLUCOSE [id number] 17:32:00 Test Item Value Reference Range Comments POC-GLUCOSE METER (BEAKER) 146 mg/dL 70-110 TESTED AT [address] (test gtiz=0078) [facility] [address] BASIC METABOLIC [id number] 16:44:00 Test Item Value Reference Range Comments SODIUM (BEAKER) (test 138 meq/L 136-145 szqs=627) POTASSIUM (BEAKER) (test 3.3 meq/L 3.5-5.1 dpsj=227) CHLORIDE (BEAKER) (test 107 meq/L 98-107 rkox=630) CO2 (BEAKER) (test 24 meq/L 22-29 txoo=658) BLOOD UREA NITROGEN 42 mg/dL 7-21 (BEAKER) (test ivqh=291) CREATININE (BEAKER) (test 1.27 mg/dL 0.57-1.25 berq=496) GLUCOSE RANDOM (BEAKER) 166 mg/dL 70-105 (test nado=151) CALCIUM (BEAKER) (test 8.0 mg/dL 8.4-10.2 fevb=663) EGFR (BEAKER) (test 60 mL/min/1.73 sq m ESTIMATED GFR IS NOT eegs=0393) ACCURATE CREATININE CLEARANCE IN PREDICTING GLOMERULAR FILTRATION RATE. ESTIMATED GFR IS NOT APPLICABLE FOR DIALYSIS PATIENTS. Specimen markedly [id number] 16:40:00 Test Item Value Reference Range Comments MAGNESIUM (BEAKER) (test ljwn=347) 2.1 mg/dL 1.6-2.6 HEMOGLOBIN AND [id number] 16:23:00 Test Item Value Reference Range Comments HEMOGLOBIN (BEAKER) (test zohi=074) 8.0 GM/DL 13.7-17.5 HEMATOCRIT (BEAKER) (test fvxo=363) 24.5 % 40.1-51.0 POCT-GLUCOSE [id number] 12:04:00 Test Item Value Reference Range Comments POC-GLUCOSE METER (BEAKER) 284 mg/dL 70-[address] [facility] [address] [facility] (test jdos=0080) [facility] [address] POCT-GLUCOSE [id number] 07:51:00 Test Item Value Reference Range Comments POC-GLUCOSE METER (BEAKER) 166 mg/dL 70-110 TESTED AT [address] (test rxzt=9611) [facility] [address] COMPREHENSIVE METABOLIC [id number] 05:59:00 Test Item Value Reference Range Comments TOTAL PROTEIN (BEAKER) 5.1 gm/dL 6.0-8.3 (test wrtb=238) ALBUMIN (BEAKER) (test 1.9 g/dL 3.5-5.0 gxln=2642) ALKALINE PHOSPHATASE 278 U/L 40-150 (BEAKER) (test yskp=842) BILIRUBIN TOTAL (BEAKER) 15.8 mg/dL 0.2-1.2 (test vqtl=706) SODIUM (BEAKER) (test 146 meq/L 136-145 cmhp=951) POTASSIUM (BEAKER) (test 3.9 meq/L 3.5-5.1 hbge=265) CHLORIDE (BEAKER) (test 114 meq/L 98-107 pdlu=282) CO2 (BEAKER) (test 26 meq/L 22-29 uohd=870) BLOOD UREA NITROGEN 39 mg/dL 7-21 (BEAKER) (test yevf=150) CREATININE (BEAKER) (test 1.21 mg/dL 0.57-1.25 fcqs=369) GLUCOSE RANDOM (BEAKER) 128 mg/dL 70-105 (test hxhy=605) CALCIUM (BEAKER) (test 8.0 mg/dL 8.4-10.2 dsaf=249) AST (SGOT) (BEAKER) (test 196 U/L 5-34 hgqj=176) ALT (SGPT) (BEAKER) (test 157 U/L 6-55 jyco=832) EGFR (BEAKER) (test 63 mL/min/1.73 sq m ESTIMATED GFR IS NOT yecq=1196) ACCURATE CREATININE CLEARANCE IN PREDICTING GLOMERULAR FILTRATION RATE. ESTIMATED GFR IS NOT APPLICABLE FOR DIALYSIS PATIENTS. Specimen markedly [id number] 04:55:00 Test Item Value Reference Range Comments PHOSPHORUS (BEAKER) (test llag=529) 4.4 mg/dL 2.3-4.7 [id number] 04:55:00 Test Item Value Reference Range Comments MAGNESIUM (BEAKER) (test csps=027) 1.5 mg/dL 1.6-2.6 RAD, CHEST, 1 VIEW, NON [id number] 04:50:00Reason for exam:->edemaShould this be performed at [...] left IJ CVC remains in place. Signed: Gaurav Cunningham MDReport Verified Date/Time: 2017 04:50:23 Reading Location: [address] Reading Room B-TYPE NATRIURETIC FACTOR (BNP)2018-02-03 04:24:00 Test Item Value Reference Range Comments B-TYPE NATRIURETIC PEPTIDE (BEAKER) (test 560 pg/mL 0-100 fkjz=912) CALCIUM, [id number] 04:12:00 Test Item Value Reference Range Comments CALCIUM IONIZED (BEAKER) (test xbmh=627) 1.12 mmol/L 1.12-1.27 PH, BLOOD (BEAKER) (test gijh=8353) 7.45 PROTHROMBIN [id number] 04:10:00 Test Item Value Reference Range Comments PROTIME (BEAKER) (test xcak=967) 24.8 seconds 11.7-14.7 INR (BEAKER) (test jqyr=626) 2.2 <=5.9 RECOMMENDED COUMADIN/WARFARIN INR THERAPY RANGESSTANDARD DOSE: 2.0 - 3.0 Includes: PROPHYLAXIS forvenous thrombosis, systemic embolization; TREATMENT for venous thrombosis and/or pulmonary embolus.HIGH RISK: Target INR is 2.5-3.5 for patients with mechanical heart valves.CBC W/PLT COUNT & AUTO [id number] 04:01:00 Test Item Value Reference Range Comments WHITE BLOOD CELL COUNT (BEAKER) (test smwb=828) 11.5 K/ L 3.5-10.5 RED BLOOD CELL COUNT (BEAKER) (test hitj=470) 2.25 M/ L 4.63-6.08 HEMOGLOBIN (BEAKER) (test brjz=724) 7.1 GM/DL 13.7-17.5 HEMATOCRIT (BEAKER) (test pvpe=926) 22.1 % 40.1-51.0 MEAN CORPUSCULAR VOLUME (BEAKER) (test pycf=526) 98.2 fL 79.0-92.2 MEAN CORPUSCULAR HEMOGLOBIN (BEAKER) (test 31.6 pg 25.7-32.2 qadz=943) MEAN CORPUSCULAR HEMOGLOBIN CONC (BEAKER) (test 32.1 GM/DL 32.3-36.5 sfxq=276) RED CELL DISTRIBUTION WIDTH (BEAKER) (test 23.5 % 11.6-14.4 soth=853) PLATELET COUNT (BEAKER) (test nfit=937) 61 K/CU MM 150-450 MEAN PLATELET VOLUME (BEAKER) (test newb=514) 11.4 fL 9.4-12.4 NUCLEATED RED BLOOD CELLS (BEAKER) (test 1 /100 WBC 0-0 ohac=347) NEUTROPHILS RELATIVE PERCENT (BEAKER) (test 88 % zkpd=720) LYMPHOCYTES RELATIVE PERCENT (BEAKER) (test 5 % qwyc=845) MONOCYTES RELATIVE PERCENT (BEAKER) (test 6 % ntjj=199) EOSINOPHILS RELATIVE PERCENT (BEAKER) (test 0 % ktld=674) BASOPHILS RELATIVE PERCENT (BEAKER) (test 0 % yzkv=151) NEUTROPHILS ABSOLUTE COUNT (BEAKER) (test 10.08 K/ L 1.78-5.38 iuoe=573) LYMPHOCYTES ABSOLUTE COUNT (BEAKER) (test 0.56 K/ L 1.32-3.57 eknk=134) MONOCYTES ABSOLUTE COUNT (BEAKER) (test acte=985) 0.66 K/ L 0.30-0.82 EOSINOPHILS ABSOLUTE COUNT (BEAKER) (test 0.00 K/ L 0.04-0.54 zjyu=881) BASOPHILS ABSOLUTE COUNT (BEAKER) (test lrzb=090) 0.01 K/ L 0.01-0.08 IMMATURE GRANULOCYTES-RELATIVE PERCENT (BEAKER) 2 % 0-1 (test bctl=5011) POCT-GLUCOSE [id number] 18:11:00 Test Item Value Reference Range Comments POC-GLUCOSE METER (BEAKER) 174 mg/dL 70-[address] [facility] [address] [facility] (test hxai=6588) [facility] [address] BASIC METABOLIC [id number] 16:37:00 Test Item Value Reference Range Comments SODIUM (BEAKER) (test 146 meq/L 136-145 dndw=586) POTASSIUM (BEAKER) (test 3.8 meq/L 3.5-5.1 nokk=399) CHLORIDE (BEAKER) (test 115 meq/L 98-107 gybk=956) CO2 (BEAKER) (test 25 meq/L 22-29 rnra=188) BLOOD UREA NITROGEN 40 mg/dL 7-21 (BEAKER) (test rqpb=639) CREATININE (BEAKER) (test 1.28 mg/dL 0.57-1.25 akrl=159) GLUCOSE RANDOM (BEAKER) 146 mg/dL 70-105 (test huzb=289) CALCIUM (BEAKER) (test 8.0 mg/dL 8.4-10.2 baya=160) EGFR (BEAKER) (test 59 mL/min/1.73 sq m ESTIMATED GFR IS NOT ncpe=8250) ACCURATE CREATININE CLEARANCE IN PREDICTING GLOMERULAR FILTRATION RATE. ESTIMATED GFR IS NOT APPLICABLE FOR DIALYSIS PATIENTS. Specimen markedly ictericCBC W/PLT COUNT & AUTO [id number] 15:43 :00 Test Item Value Reference Range Comments WHITE BLOOD CELL COUNT (BEAKER) (test essr=622) 13.2 K/ L 3.5-10.5 RED BLOOD CELL COUNT (BEAKER) (test avgf=371) 2.41 M/ L 4.63-6.08 HEMOGLOBIN (BEAKER) (test ykcz=828) 7.6 GM/DL 13.7-17.5 HEMATOCRIT (BEAKER) (test pciy=499) 23.5 % 40.1-51.0 MEAN CORPUSCULAR VOLUME (BEAKER) (test grem=277) 97.5 fL 79.0-92.2 MEAN CORPUSCULAR HEMOGLOBIN (BEAKER) (test 31.5 pg 25.7-32.2 fncl=542) MEAN CORPUSCULAR HEMOGLOBIN CONC (BEAKER) (test 32.3 GM/DL 32.3-36.5 sqyf=226) RED CELL DISTRIBUTION WIDTH (BEAKER) (test 23.1 % 11.6-14.4 seou=530) PLATELET COUNT (BEAKER) (test ygvh=564) 68 K/CU MM 150-450 MEAN PLATELET VOLUME (BEAKER) (test wryp=396) 11.2 fL 9.4-12.4 NUCLEATED RED BLOOD CELLS (BEAKER) (test 1 /100 WBC 0-0 wfhr=835) NEUTROPHILS RELATIVE PERCENT (BEAKER) (test 86 % cxux=677) LYMPHOCYTES RELATIVE PERCENT (BEAKER) (test 4 % mhiy=283) MONOCYTES RELATIVE PERCENT (BEAKER) (test 8 % mpnx=366) EOSINOPHILS RELATIVE PERCENT (BEAKER) (test 0 % mgcr=636) BASOPHILS RELATIVE PERCENT (BEAKER) (test 0 % etpf=139) NEUTROPHILS ABSOLUTE COUNT (BEAKER) (test 11.32 K/ L 1.78-5.38 bqpz=224) LYMPHOCYTES ABSOLUTE COUNT (BEAKER) (test 0.57 K/ L 1.32-3.57 gppw=681) MONOCYTES ABSOLUTE COUNT (BEAKER) (test nsoi=033) 0.99 K/ L 0.30-0.82 EOSINOPHILS ABSOLUTE COUNT (BEAKER) (test 0.00 K/ L 0.04-0.54 lctr=418) BASOPHILS ABSOLUTE COUNT (BEAKER) (test atnp=944) 0.02 K/ L 0.01-0.08 IMMATURE GRANULOCYTES-RELATIVE PERCENT (BEAKER) 2 % 0-1 (test mshr=4306) POCT-GLUCOSE [id number] 12:18:00 Test Item Value Reference Range Comments POC-GLUCOSE METER (BEAKER) 161 mg/dL 70-110 TESTED AT [address] (test jitm=7752) [facility] [address] BASIC METABOLIC [id number] 07:04:00 Test Item Value Reference Range Comments SODIUM (BEAKER) (test 148 meq/L 136-145 csup=411) POTASSIUM (BEAKER) (test 3.7 meq/L 3.5-5.1 cqbi=634) CHLORIDE (BEAKER) (test 116 meq/L 98-107 sfyn=062) CO2 (BEAKER) (test 27 meq/L 22-29 ephg=286) BLOOD UREA NITROGEN 45 mg/dL 7-21 (BEAKER) (test vxhx=068) CREATININE (BEAKER) (test 1.41 mg/dL 0.57-1.25 gzof=632) GLUCOSE RANDOM (BEAKER) 159 mg/dL 70-105 (test kgpf=009) CALCIUM (BEAKER) (test 7.7 mg/dL 8.4-10.2 ekrc=155) EGFR (BEAKER) (test 53 mL/min/1.73 sq m ESTIMATED GFR IS NOT kpad=8512) ACCURATE CREATININE CLEARANCE IN PREDICTING GLOMERULAR FILTRATION RATE. ESTIMATED GFR IS NOT APPLICABLE FOR DIALYSIS PATIENTS. Specimen markedly [id number] 06:52:00 Test Item Value Reference Range Comments PHOSPHORUS (BEAKER) (test wqlm=123) 3.1 mg/dL 2.3-4.7 [id number] 06:52:00 Test Item Value Reference Range Comments MAGNESIUM (BEAKER) (test bwhd=107) 1.6 mg/dL 1.6-2.6 POCT-GLUCOSE [id number] 06:34:00 Test Item Value Reference Range Comments POC-GLUCOSE METER (BEAKER) 212 mg/dL 70-110 TESTED AT [place] [id number] [facility] (test grxj=2851) [facility] [address] PROTHROMBIN [id number] 04:56:00 Test Item Value Reference Range Comments PROTIME (BEAKER) (test qnad=944) 26.2 seconds 11.7-14.7 INR (BEAKER) (test axkx=972) 2.4 <=5.9 RECOMMENDED COUMADIN/WARFARIN INR THERAPY RANGESSTANDARD DOSE: 2.0 - 3.0 Includes: PROPHYLAXIS forvenous thrombosis, systemic embolization; TREATMENT for venous thrombosis and/or pulmonary embolus.HIGH RISK: Target INR is 2.5-3.5 for patients with mechanical heart valves.CBC W/PLT COUNT & AUTO [id number] 04:35:00 Test Item Value Reference Range Comments WHITE BLOOD CELL COUNT (BEAKER) (test qdbp=238) 11.6 K/ L 3.5-10.5 RED BLOOD CELL COUNT (BEAKER) (test wqia=415) 2.07 M/ L 4.63-6.08 HEMOGLOBIN (BEAKER) (test mnbu=640) 6.6 GM/DL 13.7-17.5 HEMATOCRIT (BEAKER) (test nmqq=534) 20.5 % 40.1-51.0 MEAN CORPUSCULAR VOLUME (BEAKER) (test rmtf=150) 99.0 fL 79.0-92.2 MEAN CORPUSCULAR HEMOGLOBIN (BEAKER) (test 31.9 pg 25.7-32.2 bngc=001) MEAN CORPUSCULAR HEMOGLOBIN CONC (BEAKER) (test 32.2 GM/DL 32.3-36.5 kspm=487) RED CELL DISTRIBUTION WIDTH (BEAKER) (test 25.0 % 11.6-14.4 gdfu=030) PLATELET COUNT (BEAKER) (test ycfl=952) 40 K/CU MM 150-450 MEAN PLATELET VOLUME (BEAKER) (test dzgh=782) 10.6 fL 9.4-12.4 NUCLEATED RED BLOOD CELLS (BEAKER) (test 1 /100 WBC 0-0 mfie=576) NEUTROPHILS RELATIVE PERCENT (BEAKER) (test 85 % vifj=750) LYMPHOCYTES RELATIVE PERCENT (BEAKER) (test 4 % eydq=319) MONOCYTES RELATIVE PERCENT (BEAKER) (test 8 % tiqx=312) EOSINOPHILS RELATIVE PERCENT (BEAKER) (test 0 % ozfn=806) BASOPHILS RELATIVE PERCENT (BEAKER) (test 0 % ifun=388) NEUTROPHILS ABSOLUTE COUNT (BEAKER) (test 9.82 K/ L 1.78-5.38 tfmp=883) LYMPHOCYTES ABSOLUTE COUNT (BEAKER) (test 0.49 K/ L 1.32-3.57 pdxy=278) MONOCYTES ABSOLUTE COUNT (BEAKER) (test anym=698) 0.90 K/ L 0.30-0.82 EOSINOPHILS ABSOLUTE COUNT (BEAKER) (test 0.01 K/ L 0.04-0.54 rpar=622) BASOPHILS ABSOLUTE COUNT (BEAKER) (test izup=866) 0.01 K/ L 0.01-0.08 IMMATURE GRANULOCYTES-RELATIVE PERCENT (BEAKER) 3 % 0-1 (test mbbd=0516) CALCIUM, [id number] 04:20:00 Test Item Value Reference Range Comments CALCIUM IONIZED (BEAKER) (test pvam=578) 1.11 mmol/L 1.12-1.27 PH, BLOOD (BEAKER) (test qelm=8910) 7.45 POCT-GLUCOSE [id number] 23:47:00 Test Item Value Reference Range Comments POC-GLUCOSE METER (BEAKER) 213 mg/dL 70-[address] [facility] [address] [facility] (test zsaj=7220) [facility] [address] [id number] 21:23:00 Test Item Value Reference Range Comments PHOSPHORUS (BEAKER) (test muqt=755) 3.3 mg/dL 2.3-4.7 [id number] 21:23:00 Test Item Value Reference Range Comments MAGNESIUM (BEAKER) (test jgjz=981) 1.8 mg/dL 1.6-2.6 BASIC METABOLIC [id number] 21:23:00 Test Item Value Reference Range Comments SODIUM (BEAKER) (test 150 meq/L 136-145 yxee=041) POTASSIUM (BEAKER) (test 3.6 meq/L 3.5-5.1 yyir=766) CHLORIDE (BEAKER) (test 117 meq/L 98-107 zznx=750) CO2 (BEAKER) (test 27 meq/L 22-29 htrp=480) BLOOD UREA NITROGEN 46 mg/dL 7-21 (BEAKER) (test mpnq=358) CREATININE (BEAKER) (test 1.44 mg/dL 0.57-1.25 ljej=072) GLUCOSE RANDOM (BEAKER) 176 mg/dL 70-105 (test lbxi=140) CALCIUM (BEAKER) (test 7.8 mg/dL 8.4-10.2 bxog=239) EGFR (BEAKER) (test 52 mL/min/1.73 sq m ESTIMATED GFR IS NOT jtcb=9668) ACCURATE CREATININE CLEARANCE IN PREDICTING GLOMERULAR FILTRATION RATE. ESTIMATED GFR IS NOT APPLICABLE FOR DIALYSIS PATIENTS. Specimen markedly ictericCALCIUM, [id number] 20:09:00 Test Item Value Reference Range Comments CALCIUM IONIZED (BEAKER) (test rknu=097) 1.11 mmol/L 1.12-1.27 PH, BLOOD (BEAKER) (test hxcc=7213) 7.47 POCT-GLUCOSE [id number] 18:23:00 Test Item Value Reference Range Comments POC-GLUCOSE METER (BEAKER) 163 mg/dL 70-[address] [facility] [address] [facility] (test smgp=2902) [facility] [address] BASIC METABOLIC [id number] 18:17:00 Test Item Value Reference Range Comments SODIUM (BEAKER) (test 150 meq/L 136-145 bnlp=138) POTASSIUM (BEAKER) (test 3.3 meq/L 3.5-5.1 eiky=417) CHLORIDE (BEAKER) (test 117 meq/L 98-107 pxel=919) CO2 (BEAKER) (test 27 meq/L 22-29 ajts=603) BLOOD UREA NITROGEN 46 mg/dL 7-21 (BEAKER) (test pefp=630) CREATININE (BEAKER) (test 1.53 mg/dL 0.57-1.25 wpec=207) GLUCOSE RANDOM (BEAKER) 142 mg/dL 70-105 (test hrwt=519) CALCIUM (BEAKER) (test 7.9 mg/dL 8.4-10.2 ikcc=137) EGFR (BEAKER) (test 48 mL/min/1.73 sq m ESTIMATED GFR IS NOT mtbw=6883) ACCURATE CREATININE CLEARANCE IN PREDICTING GLOMERULAR FILTRATION RATE. ESTIMATED GFR IS NOT APPLICABLE FOR DIALYSIS PATIENTS. Call results [id number] markedly ictericBLOOD [id number] 18:00:00 Test Item Value Reference Range Comments CULTURE (BEAKER) (test vkfa=8893) No growth in 5 days BLOOD [id number] 18:00:00 Test Item Value Reference Range Comments CULTURE (BEAKER) (test qztn=0207) No growth in 5 days BLOOD [id number] 18:00:00 Test Item Value Reference Range Comments CULTURE (BEAKER) (test erxi=7176) No growth in [address], [id number] 16:32:00Po contrast pleaseFINAL REPORT CT ABDOMEN AND [...] and/or use of iterative reconstruction technique. Signed: Jesse Estrada MDReport Verified Date/ Time: 02/01/2018 16:32:42 Reading Location: [address] Radiology Reading Room CORTISOL,60 [id number] 15:35:00 Test Item Value Reference Range Comments CORTISOL BASELINE NETWORKED (BEAKER) (test 13.6 mcg/dL hgwy=7695) CORTISOL 30 MINUTE NETWORKED (BEAKER) (test 16.7 mcg/dL txal=1540) CORTISOL, 60 MINUTE (BEAKER) (test wzxk=9149) 17.7 ug/dL ACTH STIMULATION TEST INTERPRETATION GUIDELINES(Synonyms: [...] study by Lian et al (MITCHEL 2000,283( 8):1038-45), the ACTH Stimulation Test provides important prognostic [...] serum cortisollevel 60 minutes after cosyntropin administration.CORTISOL,30 [id number] 14:46:00 Test Item Value Reference Range Comments CORTISOL BASELINE NETWORKED (BEAKER) (test 13.6 mcg/dL yhqy=7076) CORTISOL, 30 MINUTE (BEAKER) (test hwrp=5455) 16.7 ug/dL ACTH STIMULATION TEST INTERPRETATION GUIDELINES(Synonyms: [...] study by Lian et al (MITCHEL 2000,283( 8):1483-45), the ACTH Stimulation Test provides important prognostic [...] Draw serum cortisollevel 60 minutes after cosyntropin administration.CORTISOL,[id number] 14:05:00 Test Item Value Reference Range Comments CORTISOL, BASELINE (FRANCISCO) (test skrb=3805) 13.6 ug/dL ACTH STIMULATION TEST INTERPRETATION GUIDELINES(Synonyms: [...] study by Lian et al (MITCHEL 2000,283( 8):1038-45), the ACTH Stimulation Test provides important prognostic [...] serum cortisollevel 60 minutes after cosyntropin administration.POCT-GLUCOSE [id number] 12:04:00 Test Item Value Reference Range Comments POC-GLUCOSE METER (BEAKER) 162 mg/dL 70-[address] [facility] [address] [facility] (test sheq=6558) [facility] [address] CBC W/PLT COUNT & AUTO [id number] 09:35:00 Test Item Value Reference Range Comments WHITE BLOOD CELL COUNT (BEAKER) (test dgmi=060) 12.3 K/ L 3.5-10.5 RED BLOOD CELL COUNT (BEAKER) (test jbqv=752) 2.39 M/ L 4.63-6.08 HEMOGLOBIN (BEAKER) (test xuce=461) 7.3 GM/DL 13.7-17.5 HEMATOCRIT (BEAKER) (test iwkg=041) 23.2 % 40.1-51.0 MEAN CORPUSCULAR VOLUME (BEAKER) (test tijw=552) 97.1 fL 79.0-92.2 MEAN CORPUSCULAR HEMOGLOBIN (BEAKER) (test 30.5 pg 25.7-32.2 kmnc=743) MEAN CORPUSCULAR HEMOGLOBIN CONC (BEAKER) (test 31.5 GM/DL 32.3-36.5 oidg=816) RED CELL DISTRIBUTION WIDTH (BEAKER) (test 23.9 % 11.6-14.4 awcd=326) PLATELET COUNT (BEAKER) (test zzqk=391) 42 K/CU MM 150-450 MEAN PLATELET VOLUME (BEAKER) (test yoqe=610) 10.5 fL 9.4-12.4 NUCLEATED RED BLOOD CELLS (BEAKER) (test 1 /100 WBC 0-0 nlec=053) (CELLAVISION MANUAL DIFF)2018-02-01 09:35:00 Test Item Value Reference Range Comments NEUTROPHILS - REL (CELLAVISION)(BEAKER) (test 81 % rfec=6585) LYMPHOCYTES - REL (CELLAVISION)(BEAKER) (test 9 % koyk=8571) MONOCYTES - REL (CELLAVISION)(BEAKER) (test 6 % npox=4574) EOSINOPHILS - REL (CELLAVISION)(BEAKER) (test 1 % pnix=4709) BASOPHILS - REL (CELLAVISION)(BEAKER) (test 1 % bldr=4735) BANDS - REL (CELLAVISION)(BEAKER) (test 2 % 0-10 xaze=8119) NEUTROPHILS - ABS (CELLAVISION)(BEAKER) (test 9.96 K/ul 1.78-5.38 cwlw=3960) LYMPHOCYTES - ABS (CELLAVISION)(BEAKER) (test 1.11 K/ul 1.32-3.57 vxpu=1850) MONOCYTES - ABS (CELLAVISION)(BEAKER) (test 0.74 K/uL 0.30-0.82 vira=3287) EOSINOPHILS - ABS (CELLAVISION)(BEAKER) (test 0.12 K/uL 0.04-0.54 gjel=3164) BASOPHILS - ABS (CELLAVISION)(BEAKER) (test 0.12 K/uL 0.01-0.08 pfar=2345) BANDS - ABS (CELLAVISION)(BEAKER) (test 0.25 K/uL 0.00-0.80 nbgf=0207) TOTAL COUNTED (BEAKER) (test fsiy=0089) 100 MANUAL NRBC PER 100 CELLS (BEAKER) (test 1 /100 WBC 0-0 pldh=0990) WBC MORPHOLOGY (BEAKER) (test negl=787) Normal PLT MORPHOLOGY (BEAKER) (test eeqv=918) Normal POLYCHROMATOPHILLIC RBCS(BEAKER) (test bdtz=949) 2+ moderate ANISOCYTOSIS (BEAKER) (test lkgp=835) 2+ moderate POIKILOCYTES (BEAKER) (test gevv=627) 2+ moderate ARTIFACT (CELLAVISION)(BEAKER) (test hvyd=9306) Present PLATELET CONCENTRATION (CELLAVISION)(BEAKER) Decreased (test oqzn=8512) Received comment: User comments: Slide comments:SPUTUM CULTURE + GRAM [id number] 08:18:00 Test Item Value Reference Range Comments CULTURE (BEAKER) (test anov=7732) See comment GRAM STAIN RESULT (BEAKER) (test 1+ WBCs bzdz=7656) GRAM STAIN RESULT (BEAKER) (test 5-10 epithelial cells fbxe=878029) GRAM STAIN RESULT (BEAKER) (test <1+ gram positive rods iuqa=281589) GRAM STAIN RESULT (BEAKER) (test <1+ budding yeast tmro=275056) 2+ YeastNo Normal respiratory kody [id number] 08:14:00 Test Item Value Reference Range Comments PHOSPHORUS (BEAKER) (test cnyh=814) 3.0 mg/dL 2.3-4.7 [id number] 08:14:00 Test Item Value Reference Range Comments MAGNESIUM (BEAKER) (test xfar=557) 2.2 mg/dL 1.6-2.6 CALCIUM, [id number] 08:02:00 Test Item Value Reference Range Comments CALCIUM IONIZED (BEAKER) (test bohd=568) 1.09 mmol/L 1.12-1.27 PH, BLOOD (BEAKER) (test urvk=8986) 7.52 POCT-GLUCOSE [id number] 06:12:00 Test Item Value Reference Range Comments POC-GLUCOSE METER (BEAKER) 175 mg/dL 70-[address] [facility] [address] (test size=6123) [facility] [address] BLOOD [id number] 06:00:00 Test Item Value Reference Range Comments CULTURE (BEAKER) (test hmjx=6930) No growth in 5 days BLOOD [id number] 06:00:00 Test Item Value Reference Range Comments CULTURE (BEAKER) (test klbv=3240) No growth in 5 days CRYPTOCOCCAL [id number] 05:09:00 Test Item Value Reference Range Comments CRYPTOCOCCAL ANTIGEN, SERUM (BEAKER) (test Negative Negative, Interference crnf=4480) COMPREHENSIVE METABOLIC [id number] 04:26:00 Test Item Value Reference Range Comments TOTAL PROTEIN (BEAKER) 5.2 gm/dL 6.0-8.3 (test zdwp=108) ALBUMIN (BEAKER) (test 2.1 g/dL 3.5-5.0 rolt=5792) ALKALINE PHOSPHATASE 395 U/L 40-150 (BEAKER) (test iogt=323) BILIRUBIN TOTAL (BEAKER) 16.5 mg/dL 0.2-1.2 (test fyup=853) SODIUM (BEAKER) (test 151 meq/L 136-145 lmct=416) POTASSIUM (BEAKER) (test 3.5 meq/L 3.5-5.1 uddi=030) CHLORIDE (BEAKER) (test 118 meq/L 98-107 btmg=827) CO2 (BEAKER) (test 27 meq/L 22-29 aciu=524) BLOOD UREA NITROGEN 54 mg/dL 7-21 (BEAKER) (test ulqw=186) CREATININE (BEAKER) (test 1.95 mg/dL 0.57-1.25 qusk=142) GLUCOSE RANDOM (BEAKER) 147 mg/dL 70-105 (test bxuh=229) CALCIUM (BEAKER) (test 7.8 mg/dL 8.4-10.2 vwul=707) AST (SGOT) (BEAKER) (test 310 U/L 5-34 avgb=875) ALT (SGPT) (BEAKER) (test 216 U/L 6-55 krko=315) EGFR (BEAKER) (test 36 mL/min/1.73 sq m ESTIMATED GFR IS NOT glrh=3329) ACCURATE CREATININE CLEARANCE IN PREDICTING GLOMERULAR FILTRATION RATE. ESTIMATED GFR IS NOT APPLICABLE FOR DIALYSIS PATIENTS. Specimen markedly [id number] 04:05:00 Test Item Value Reference Range Comments PHOSPHORUS (BEAKER) (test unfn=822) 3.2 mg/dL 2.3-4.7 [id number] 04:05:00 Test Item Value Reference Range Comments MAGNESIUM (BEAKER) (test asfa=150) 1.6 mg/dL 1.6-2.6 LACTIC ACID, VENOUS, WHOLE [id number] 03:58:00 Test Item Value Reference Range Comments LACTATE BLOOD VENOUS (2) (BEAKER) (test 1.2 mmol/L 0.5-2.2 qnye=3901) Effective 09/15/2015: Units/Reference Range ChangeNew: 0.5-2.2 mmol/L Previous: 5 -20 mg/dLSpecimen markedly ictericPROTHROMBIN [id number] 03:56:00 Test Item Value Reference Range Comments PROTIME (BEAKER) (test qdle=372) 26.0 seconds 11.7-14.7 INR (BEAKER) (test jjxw=827) 2.4 <=5.9 RECOMMENDED COUMADIN/WARFARIN INR THERAPY RANGESSTANDARD DOSE: 2.0 - 3.0 Includes: PROPHYLAXIS forvenous thrombosis, systemic embolization; TREATMENT for venous thrombosis and/or pulmonary embolus.HIGH RISK: Target INR is 2.5-3.5 for patients with mechanical heart valves.BLOOD GAS, [id number] 03:50:00 Test Item Value Reference Range Comments PH VENOUS (BEAKER) (test lkky=014) 7.50 7.32-7.42 PCO2 VENOUS (BEAKER) (test bega=439) 37 mmHg 41-51 PO2 VENOUS (BEAKER) (test hwmt=026) 43 mmHg 25-40 O2 SATURATION VENOUS (BEAKER) (test arka=855) 79.9 % 40.0-70.0 HCO3 VENOUS (BEAKER) (test kksi=021) 28 mmol/L 21-29 BASE EXCESS VENOUS (BEAKER) (test mbks=648) 4.8 mmol/L -2.0-3.0 PATIENT TEMPERATURE (BEAKER) (test tznk=8729) 38.4 C FIO2 (BEAKER) (test jqio=2007) 30.0 % POCT-GLUCOSE [id number] 00:22:00 Test Item Value Reference Range Comments POC-GLUCOSE METER (BEAKER) 155 mg/dL 70-[address] [facility] [address] [facility] (test aqeg=8828) [place] [address] [id number] 21:11:00 Test Item Value Reference Range Comments PHOSPHORUS (BEAKER) (test livy=559) 2.7 mg/dL 2.3-4.7 [id number] 21:11:00 Test Item Value Reference Range Comments MAGNESIUM (BEAKER) (test lnsl=666) 1.8 mg/dL 1.6-2.6 CALCIUM, [id number] 20:38:00 Test Item Value Reference Range Comments CALCIUM IONIZED (BEAKER) (test xzts=535) 1.09 mmol/L 1.12-1.27 PH, BLOOD (BEAKER) (test seui=1922) 7.52 CBC W/PLT COUNT & AUTO [id number] 16:21:00 Test Item Value Reference Range Comments WHITE BLOOD CELL COUNT (BEAKER) (test gpna=918) 10.5 K/ L 3.5-10.5 RED BLOOD CELL COUNT (BEAKER) (test ikrb=788) 2.41 M/ L 4.63-6.08 HEMOGLOBIN (BEAKER) (test cdnm=676) 7.6 GM/DL 13.7-17.5 HEMATOCRIT (BEAKER) (test trkg=461) 23.2 % 40.1-51.0 MEAN CORPUSCULAR VOLUME (BEAKER) (test welq=011) 96.3 fL 79.0-92.2 MEAN CORPUSCULAR HEMOGLOBIN (BEAKER) (test 31.5 pg 25.7-32.2 mwjo=332) MEAN CORPUSCULAR HEMOGLOBIN CONC (BEAKER) (test 32.8 GM/DL 32.3-36.5 nhgo=428) RED CELL DISTRIBUTION WIDTH (BEAKER) (test 22.7 % 11.6-14.4 fcud=193) PLATELET COUNT (BEAKER) (test hgcn=494) 39 K/CU MM 150-450 MEAN PLATELET VOLUME (BEAKER) (test bdvc=891) 10.1 fL 9.4-12.4 NUCLEATED RED BLOOD CELLS (BEAKER) (test 2 /100 WBC 0-0 ursz=851) (CELLAVISION MANUAL DIFF)[id number] 16:21:00 Test Item Value Reference Range Comments NEUTROPHILS - REL (CELLAVISION)(BEAKER) (test 79 % rxas=3697) LYMPHOCYTES - REL (CELLAVISION)(BEAKER) (test 4 % rxta=5677) MONOCYTES - REL (CELLAVISION)(BEAKER) (test 12 % keya=4840) EOSINOPHILS - REL (CELLAVISION)(BEAKER) (test 2 % nxhe=5363) METAMYELOCYTES - REL (CELLAVISION)(BEAKER) (test 1 % 0-0 zqgm=4663) BANDS - REL (CELLAVISION)(BEAKER) (test kjza=4702) 1 % 0-10 NEUTROPHILS - ABS (CELLAVISION)(BEAKER) (test 8.30 K/ul 1.78-5.38 gnnb=1440) LYMPHOCYTES - ABS (CELLAVISION)(BEAKER) (test 0.42 K/ul 1.32-3.57 ycte=6091) MONOCYTES - ABS (CELLAVISION)(BEAKER) (test 1.26 K/uL 0.30-0.82 uuwo=7158) EOSINOPHILS - ABS (CELLAVISION)(BEAKER) (test 0.21 K/uL 0.04-0.54 hcvn=9800) METAMYELOCYTES - ABS (CELLAVISION)(BEAKER) (test 0.11 K/uL 0.00-0.00 msvu=7619) BANDS - ABS (CELLAVISION)(BEAKER) (test sxhs=9757) 0.11 K/uL 0.00-0.80 TOTAL COUNTED (BEAKER) (test scia=2749) 100 PLT MORPHOLOGY (BEAKER) (test ghln=088) Normal SMUDGE CELLS (BEAKER) (test jupq=8647) Present PLASMACYTOID LYMPHS(BEAKER) (test psyl=4380) Present POLYCHROMATOPHILLIC RBCS(BEAKER) (test mktj=741) 1+ few ANISOCYTOSIS (BEAKER) (test ukxq=683) 1+ few MACROCYTES (BEAKER) (test fufh=457) 1+ few POIKILOCYTES (BEAKER) (test okrx=083) 1+ few TARGET CELLS (BEAKER) (test apyl=394) 1+ few BASOPHILIC STIPPLING (BEAKER) (test xwsw=751) Present HELMET CELLS (CELLAVISION)(BEAKER) (test 1+ few dzti=4634) PLATELET CONCENTRATION (CELLAVISION)(BEAKER) (test Decreased jqlt=1881) Received comment: User comments: Slide comments:BASIC METABOLIC [id number] 16:10:00 Test Item Value Reference Range Comments SODIUM (BEAKER) (test 148 meq/L 136-145 voei=818) POTASSIUM (BEAKER) (test 3.6 meq/L 3.5-5.1 mptr=304) CHLORIDE (BEAKER) (test 115 meq/L 98-107 yxdr=429) CO2 (BEAKER) (test 25 meq/L 22-29 yojy=195) BLOOD UREA NITROGEN 56 mg/dL 7-21 (BEAKER) (test cuem=392) CREATININE (BEAKER) (test 2.06 mg/dL 0.57-1.25 njib=708) GLUCOSE RANDOM (BEAKER) 139 mg/dL 70-105 (test lhfq=059) CALCIUM (BEAKER) (test 7.8 mg/dL 8.4-10.2 yixd=863) EGFR (BEAKER) (test 34 mL/min/1.73 sq m ESTIMATED GFR IS NOT fcuh=7496) ACCURATE CREATININE CLEARANCE IN PREDICTING GLOMERULAR FILTRATION RATE. ESTIMATED GFR IS NOT APPLICABLE FOR DIALYSIS PATIENTS. Specimen markedly ictericLACTIC ACID, VENOUS, WHOLE [id number] 16:05:00 Test Item Value Reference Range Comments LACTATE BLOOD VENOUS (2) (BEAKER) (test 1.2 mmol/L 0.5-2.2 tzmt=3056) Effective 09/15/2015: Units/Reference Range ChangeNew: 0.5-2.2 mmol/L Previous: 5 -20 mg/dLSpecimen markedly ictericCALCIUM, [id number] 15:53:00 Test Item Value Reference Range Comments CALCIUM IONIZED (BEAKER) (test kqsp=304) 0.83 mmol/L 1.12-1.27 PH, BLOOD (BEAKER) (test thnp=3828) 7.52 C. DIFFICILE GDH [id number] 12:08:00 Test Item Value Reference Range Comments CDT TOXIN (test Negative Negative btlo=[id number]) CDT GDH ANTIGEN (test Negative Negative No indication of Clostridium gkve=[id number]) difficile infection and no colonization. Discontinue enteric isolation and therapy. Testing performed by SC[employer]FIX Rapid Cassette Assay. For GDH, published sensitivity of the assay is 98.7% compared to cytotoxicity testing. For Toxin AB, published sensitivity is 87.8% and specificity 99.4% compared to cytotoxicity testing.Verification of kit performance was done by the [facility] prior to clinical use.CBC W/PLT COUNT & AUTO [id number] 12:08:00 Test Item Value Reference Range Comments WHITE BLOOD CELL COUNT (BEAKER) (test wckt=293) 10.2 K/ L 3.5-10.5 RED BLOOD CELL COUNT (BEAKER) (test ripn=289) 2.48 M/ L 4.63-6.08 HEMOGLOBIN (BEAKER) (test wsio=764) 7.7 GM/DL 13.7-17.5 HEMATOCRIT (BEAKER) (test nuzd=081) 23.5 % 40.1-51.0 MEAN CORPUSCULAR VOLUME (BEAKER) (test aupp=262) 94.8 fL 79.0-92.2 MEAN CORPUSCULAR HEMOGLOBIN (BEAKER) (test 31.0 pg 25.7-32.2 jhvy=178) MEAN CORPUSCULAR HEMOGLOBIN CONC (BEAKER) (test 32.8 GM/DL 32.3-36.5 mvpk=229) RED CELL DISTRIBUTION WIDTH (BEAKER) (test 21.7 % 11.6-14.4 lelo=420) PLATELET COUNT (BEAKER) (test jksd=712) 43 K/CU MM 150-450 MEAN PLATELET VOLUME (BEAKER) (test ntkj=802) 10.9 fL 9.4-12.4 NUCLEATED RED BLOOD CELLS (BEAKER) (test 3 /100 WBC 0-0 slyz=412) (CELLAVISION MANUAL DIFF)2018-01-31 12:08:00 Test Item Value Reference Range Comments NEUTROPHILS - REL (CELLAVISION)(BEAKER) (test 68 % emvp=8073) LYMPHOCYTES - REL (CELLAVISION)(BEAKER) (test 9 % lfvu=3153) MONOCYTES - REL (CELLAVISION)(BEAKER) (test 16 % zexp=8309) MYELOCYTES - REL (CELLAVISION)(BEAKER) (test 2 % 0-0 iteg=8606) BANDS - REL (CELLAVISION)(BEAKER) (test 5 % 0-10 hyus=1587) NEUTROPHILS - ABS (CELLAVISION)(BEAKER) (test 6.94 K/ul 1.78-5.38 porh=0722) LYMPHOCYTES - ABS (CELLAVISION)(BEAKER) (test 0.92 K/ul 1.32-3.57 gdja=3531) MONOCYTES - ABS (CELLAVISION)(BEAKER) (test 1.63 K/uL 0.30-0.82 taed=2971) MYELOCYTES-ABS (CELLAVISION)(BEAKER) (test 0.20 K/uL 0.00-0.00 ufoi=1777) BANDS - ABS (CELLAVISION)(BEAKER) (test 0.51 K/uL 0.00-0.80 nsqf=9747) TOTAL COUNTED (BEAKER) (test gaeh=8211) 100 MANUAL NRBC PER 100 CELLS (BEAKER) (test 4 /100 WBC 0-0 gntc=1645) WBC MORPHOLOGY (BEAKER) (test ugji=620) Normal PLT MORPHOLOGY (BEAKER) (test ckoc=887) Normal POLYCHROMATOPHILLIC RBCS(BEAKER) (test bvjc=199) 1+ few TARGET CELLS (BEAKER) (test qjcg=392) 1+ few ARTIFACT (CELLAVISION)(BEAKER) (test bqle=6529) Present PLATELET CONCENTRATION (CELLAVISION)(BEAKER) Decreased (test nuua=4365) Received comment: User comments: Slide comments:BLOOD GAS, [id number] 11: 59:00 Test Item Value Reference Range Comments PH VENOUS (BEAKER) (test ulco=149) 7.53 7.32-7.42 PCO2 VENOUS (BEAKER) (test qjgg=738) 36 mmHg 41-51 PO2 VENOUS (BEAKER) (test eoaw=648) 35 mmHg 25-40 O2 SATURATION VENOUS (BEAKER) (test xrzc=253) 75.9 % 40.0-70.0 HCO3 VENOUS (BEAKER) (test wnel=142) 30 mmol/L 21-29 BASE EXCESS VENOUS (BEAKER) (test razw=308) 6.6 mmol/L -2.0-3.0 PATIENT TEMPERATURE (BEAKER) (test evxa=3963) 36.7 C FIO2 (BEAKER) (test snjn=3241) 30.0 % POCT-GLUCOSE [id number] 11:53:00 Test Item Value Reference Range Comments POC-GLUCOSE METER (BEAKER) 98 mg/dL 70-[address] [facility] [address] [facility] (test emab=0367) [facility] [address] BASIC METABOLIC [id number] 08:49:00 Test Item Value Reference Range Comments SODIUM (BEAKER) (test 147 meq/L 136-145 zcru=590) POTASSIUM (BEAKER) (test 3.5 meq/L 3.5-5.1 aebx=345) CHLORIDE (BEAKER) (test 114 meq/L 98-107 hiso=382) CO2 (BEAKER) (test 28 meq/L 22-29 bnhr=067) BLOOD UREA NITROGEN 58 mg/dL 7-21 (BEAKER) (test lxgr=438) CREATININE (BEAKER) (test 2.29 mg/dL 0.57-1.25 dyxt=257) GLUCOSE RANDOM (BEAKER) 149 mg/dL 70-105 (test muoi=444) CALCIUM (BEAKER) (test 7.8 mg/dL 8.4-10.2 ddtz=338) EGFR (BEAKER) (test 30 mL/min/1.73 sq m ESTIMATED GFR IS NOT gzed=8526) ACCURATE CREATININE CLEARANCE IN PREDICTING GLOMERULAR FILTRATION RATE. ESTIMATED GFR IS NOT APPLICABLE FOR DIALYSIS PATIENTS. Specimen markedly [id number] 08:46:00 Test Item Value Reference Range Comments PHOSPHORUS (BEAKER) (test kwuv=460) 2.6 mg/dL 2.3-4.7 [id number] 08:46:00 Test Item Value Reference Range Comments MAGNESIUM (BEAKER) (test nemy=695) 2.0 mg/dL 1.6-2.6 CALCIUM, [id number] 08:18:00 Test Item Value Reference Range Comments CALCIUM IONIZED (BEAKER) (test svkt=241) 1.08 mmol/L 1.12-1.27 PH, BLOOD (BEAKER) (test ozua=4465) 7.52 PROTHROMBIN TIME/[id number] 06:58:00 Test Item Value Reference Range Comments PROTIME (BEAKER) (test wgfg=616) 29.8 seconds 11.7-14.7 INR (BEAKER) (test fckh=888) 2.8 <=5.9 RECOMMENDED COUMADIN/WARFARIN INR THERAPY RANGESSTANDARD DOSE: 2.0 - 3.0 Includes: PROPHYLAXIS forvenous thrombosis, systemic embolization; TREATMENT for venous thrombosis and/or pulmonary embolus.HIGH RISK: Target INR is 2.5-3.5 for patients with mechanical heart valves.POCT-GLUCOSE [id number] 06:31:00 Test Item Value Reference Range Comments POC-GLUCOSE METER (BEAKER) 167 mg/dL 70-[address] [facility] [address] [facility] (test wlhd=9712) [place] [address] [id number] 04:46:00 Test Item Value Reference Range Comments PHOSPHORUS (BEAKER) (test bmdd=983) 2.6 mg/dL 2.3-4.7 [id number] 04:46:00 Test Item Value Reference Range Comments MAGNESIUM (BEAKER) (test ujru=121) 1.9 mg/dL 1.6-2.6 HEPATIC FUNCTION [id number] 04:46:00 Test Item Value Reference Range Comments TOTAL PROTEIN (BEAKER) (test gwbu=510) 5.3 gm/dL 6.0-8.3 ALBUMIN (BEAKER) (test rvah=2317) 2.3 g/dL 3.5-5.0 BILIRUBIN TOTAL (BEAKER) (test ghkn=186) 15.9 mg/dL 0.2-1.2 BILIRUBIN DIRECT (BEAKER) (test gotu=841) 10.5 mg/dL 0.1-0.5 ALKALINE PHOSPHATASE (BEAKER) (test cbll=536) 482 U/L 40-150 AST (SGOT) (BEAKER) (test kpxb=263) 447 U/L 5-34 ALT (SGPT) (BEAKER) (test rqbq=813) 307 U/L 6-55 Specimen markedly ictericCOMPREHENSIVE METABOLIC [id number] 04:46:00 Test Item Value Reference Range Comments TOTAL PROTEIN (BEAKER) 5.3 gm/dL 6.0-8.3 (test fbcm=998) ALBUMIN (BEAKER) (test 2.3 g/dL 3.5-5.0 lmdd=3178) ALKALINE PHOSPHATASE 482 U/L 40-150 (BEAKER) (test mwiw=318) BILIRUBIN TOTAL (BEAKER) 15.9 mg/dL 0.2-1.2 (test dfqd=725) SODIUM (BEAKER) (test 146 meq/L 136-145 nurb=309) POTASSIUM (BEAKER) (test 3.4 meq/L 3.5-5.1 goqj=789) CHLORIDE (BEAKER) (test 111 meq/L 98-107 xdwa=614) CO2 (BEAKER) (test 28 meq/L 22-29 wuwz=611) BLOOD UREA NITROGEN 59 mg/dL 7-21 (BEAKER) (test rmbc=441) CREATININE (BEAKER) (test 2.48 mg/dL 0.57-1.25 yerh=355) GLUCOSE RANDOM (BEAKER) 148 mg/dL 70-105 (test doxq=100) CALCIUM (BEAKER) (test 7.9 mg/dL 8.4-10.2 gjbc=744) AST (SGOT) (BEAKER) (test 447 U/L 5-34 kbbg=648) ALT (SGPT) (BEAKER) (test 307 U/L 6-55 cftw=871) EGFR (BEAKER) (test 28 mL/min/1.73 sq m ESTIMATED GFR IS NOT zqev=3421) ACCURATE CREATININE CLEARANCE IN PREDICTING GLOMERULAR FILTRATION RATE. ESTIMATED GFR IS NOT APPLICABLE FOR DIALYSIS PATIENTS. Specimen markedly ictericVANCOMYCIN LEVEL, [id number] 04:36:00 Test Item Value Reference Range Comments VANCOMYCIN RANDOM (BEAKER) (test glsg=012) 22.4 ug/mL Reference Range: No NormalsLACTIC ACID, VENOUS, WHOLE [id number] 04:34:00 Test Item Value Reference Range Comments LACTATE BLOOD VENOUS (2) (BEAKER) (test 1.1 mmol/L 0.5-2.2 tmyq=3444) Effective 09/15/2015: Units/Reference Range ChangeNew: 0.5-2.2 mmol/L Previous: 5 -20 mg/dLSpecimen markedly ictericBLOOD GAS, [id number] 04:27:00 Test Item Value Reference Range Comments PH VENOUS (BEAKER) (test whre=086) 7.50 7.32-7.42 PCO2 VENOUS (BEAKER) (test aswn=929) 37 mmHg 41-51 PO2 VENOUS (BEAKER) (test qrkt=393) 55 mmHg 25-40 O2 SATURATION VENOUS (BEAKER) (test wtya=584) 90.0 % 40.0-70.0 HCO3 VENOUS (BEAKER) (test ddxr=420) 28 mmol/L 21-29 BASE EXCESS VENOUS (BEAKER) (test zlct=317) 4.8 mmol/L -2.0-3.0 PATIENT TEMPERATURE (BEAKER) (test rzkf=3831) 38.0 C FIO2 (BEAKER) (test kcue=4635) 40.0 % CBC W/PLT COUNT & AUTO [id number] 02:46:00 Test Item Value Reference Range Comments WHITE BLOOD CELL COUNT (BEAKER) (test qotf=114) 11.7 K/ L 3.5-10.5 RED BLOOD CELL COUNT (BEAKER) (test vzhc=120) 2.60 M/ L 4.63-6.08 HEMOGLOBIN (BEAKER) (test puhg=095) 8.1 GM/DL 13.7-17.5 HEMATOCRIT (BEAKER) (test ljev=368) 24.3 % 40.1-51.0 MEAN CORPUSCULAR VOLUME (BEAKER) (test gtia=305) 93.5 fL 79.0-92.2 MEAN CORPUSCULAR HEMOGLOBIN (BEAKER) (test 31.2 pg 25.7-32.2 dpck=869) MEAN CORPUSCULAR HEMOGLOBIN CONC (BEAKER) (test 33.3 GM/DL 32.3-36.5 vchk=348) RED CELL DISTRIBUTION WIDTH (BEAKER) (test 21.2 % 11.6-14.4 pdsh=462) PLATELET COUNT (BEAKER) (test xbqk=201) 55 K/CU MM 150-450 MEAN PLATELET VOLUME (BEAKER) (test ggum=117) 10.4 fL 9.4-12.4 NUCLEATED RED BLOOD CELLS (BEAKER) (test 5 /100 WBC 0-0 rkrt=212) (CELLAVISION MANUAL DIFF)2018-01-31 02:46:00 Test Item Value Reference Range Comments NEUTROPHILS - REL (CELLAVISION)(BEAKER) (test 54 % lzkv=6618) LYMPHOCYTES - REL (CELLAVISION)(BEAKER) (test 10 % gczl=9140) MONOCYTES - REL (CELLAVISION)(BEAKER) (test 11 % fdih=4849) METAMYELOCYTES - REL (CELLAVISION)(BEAKER) (test 3 % 0-0 iblm=5619) MYELOCYTES - REL (CELLAVISION)(BEAKER) (test 8 % 0-0 tnjl=2480) BANDS - REL (CELLAVISION)(BEAKER) (test 13 % 0-10 uqjx=4738) NEUTROPHILS - ABS (CELLAVISION)(BEAKER) (test 6.32 K/ul 1.78-5.38 mtfe=4181) LYMPHOCYTES - ABS (CELLAVISION)(BEAKER) (test 1.17 K/ul 1.32-3.57 kpcd=0263) MONOCYTES - ABS (CELLAVISION)(BEAKER) (test 1.29 K/uL 0.30-0.82 ebhj=2984) METAMYELOCYTES - ABS (CELLAVISION)(BEAKER) (test 0.35 K/uL 0.00-0.00 zuni=9032) MYELOCYTES-ABS (CELLAVISION)(BEAKER) (test 0.94 K/uL 0.00-0.00 skky=3275) BANDS - ABS (CELLAVISION)(BEAKER) (test 1.52 K/uL 0.00-0.80 jbsy=5249) TOTAL COUNTED (BEAKER) (test ueee=8585) 100 MANUAL NRBC PER 100 CELLS (BEAKER) (test 4 /100 WBC 0-0 mfan=7045) SMUDGE CELLS (BEAKER) (test zsvi=3912) Present GIANT PLATELETS (BEAKER) (test zova=760) Present POLYCHROMATOPHILLIC RBCS(BEAKER) (test wsib=525) 1+ few ANISOCYTOSIS (BEAKER) (test gdvc=503) 2+ moderate MACROCYTES (BEAKER) (test okgf=647) 1+ few POIKILOCYTES (BEAKER) (test jwiy=903) 1+ few ARTIFACT (CELLAVISION)(BEAKER) (test epba=4671) Present PLATELET CONCENTRATION (CELLAVISION)(BEAKER) Decreased (test waiq=5112) Received comment: User comments: Slide comments:BASIC METABOLIC [id number] 01:59:00 Test Item Value Reference Range Comments SODIUM (BEAKER) (test 144 meq/L 136-145 yjfr=415) POTASSIUM (BEAKER) (test 3.1 meq/L 3.5-5.1 gydm=303) CHLORIDE (BEAKER) (test 109 meq/L 98-107 ugcz=182) CO2 (BEAKER) (test 27 meq/L 22-29 zpxr=345) BLOOD UREA NITROGEN 57 mg/dL 7-21 (BEAKER) (test wusg=861) CREATININE (BEAKER) (test 2.50 mg/dL 0.57-1.25 kvxm=144) GLUCOSE RANDOM (BEAKER) 113 mg/dL 70-105 (test tcdr=147) CALCIUM (BEAKER) (test 8.1 mg/dL 8.4-10.2 jzjm=019) EGFR (BEAKER) (test 27 mL/min/1.73 sq m ESTIMATED GFR IS NOT noog=0151) ACCURATE CREATININE CLEARANCE IN PREDICTING GLOMERULAR FILTRATION RATE. ESTIMATED GFR IS NOT APPLICABLE FOR DIALYSIS PATIENTS. Specimen markedly ictericCALCIUM, [id number] 01:00:00 Test Item Value Reference Range Comments CALCIUM IONIZED (BEAKER) (test iixa=781) 1.08 mmol/L 1.12-1.27 PH, BLOOD (BEAKER) (test gphl=8736) 7.52 POCT-GLUCOSE [id number] 00:56:00 Test Item Value Reference Range Comments POC-GLUCOSE METER (BEAKER) 120 mg/dL 70-[address] [facility] [address] [facility] (test rwac=9863) [facility] [address] [id number] 21:45:00 Test Item Value Reference Range Comments PHOSPHORUS (BEAKER) (test tgih=373) 2.6 mg/dL 2.3-4.7 [id number] 21:45:00 Test Item Value Reference Range Comments MAGNESIUM (BEAKER) (test oxqr=944) 2.1 mg/dL 1.6-2.6 CBC W/PLT COUNT & AUTO [id number] 18:26:00 Test Item Value Reference Range Comments WHITE BLOOD CELL COUNT (BEAKER) (test qest=980) 11.6 K/ L 3.5-10.5 RED BLOOD CELL COUNT (BEAKER) (test bqtf=939) 2.50 M/ L 4.63-6.08 HEMOGLOBIN (BEAKER) (test ugow=426) 7.7 GM/DL 13.7-17.5 HEMATOCRIT (BEAKER) (test bgtv=069) 23.3 % 40.1-51.0 MEAN CORPUSCULAR VOLUME (BEAKER) (test vriz=251) 93.2 fL 79.0-92.2 MEAN CORPUSCULAR HEMOGLOBIN (BEAKER) (test 30.8 pg 25.7-32.2 xmxy=080) MEAN CORPUSCULAR HEMOGLOBIN CONC (BEAKER) (test 33.0 GM/DL 32.3-36.5 nflv=525) RED CELL DISTRIBUTION WIDTH (BEAKER) (test 20.4 % 11.6-14.4 eznb=210) PLATELET COUNT (BEAKER) (test xvrs=115) 49 K/CU MM 150-450 MEAN PLATELET VOLUME (BEAKER) (test wkqc=783) 11.2 fL 9.4-12.4 NUCLEATED RED BLOOD CELLS (BEAKER) (test 3 /100 WBC 0-0 tnpq=663) (CELLAVISION MANUAL DIFF)2018-01-30 18:26:00 Test Item Value Reference Range Comments NEUTROPHILS - REL (CELLAVISION)(BEAKER) (test 72 % gnkz=5456) LYMPHOCYTES - REL (CELLAVISION)(BEAKER) (test 5 % nnsz=3697) MONOCYTES - REL (CELLAVISION)(BEAKER) (test 10 % rnnf=7714) METAMYELOCYTES - REL (CELLAVISION)(BEAKER) (test 3 % 0-0 vboo=4910) MYELOCYTES - REL (CELLAVISION)(BEAKER) (test 3 % 0-0 qkyd=4297) PROMYELOCYTES - REL (CELLAVSION)(BEAKER) (test 1 % 0-0 iwam=0339) BANDS - REL (CELLAVISION)(BEAKER) (test 5 % 0-10 hbby=5804) NEUTROPHILS - ABS (CELLAVISION)(BEAKER) (test 8.35 K/ul 1.78-5.38 jjll=6219) LYMPHOCYTES - ABS (CELLAVISION)(BEAKER) (test 0.58 K/ul 1.32-3.57 nwed=1652) MONOCYTES - ABS (CELLAVISION)(BEAKER) (test 1.16 K/uL 0.30-0.82 hkhm=1919) METAMYELOCYTES - ABS (CELLAVISION)(BEAKER) (test 0.35 K/uL 0.00-0.00 uskk=0549) MYELOCYTES-ABS (CELLAVISION)(BEAKER) (test 0.35 K/uL 0.00-0.00 mznv=4909) PROMYELOCYTES - ABS (CELLAVISION)(BEAKER) (test 0.12 K/uL 0.00-0.00 yzdy=6350) BANDS - ABS (CELLAVISION)(BEAKER) (test 0.58 K/uL 0.00-0.80 kftl=8975) TOTAL COUNTED (BEAKER) (test gshg=9154) 100 MANUAL NRBC PER 100 CELLS (BEAKER) (test 3 /100 WBC 0-0 lnny=6922) WBC MORPHOLOGY (BEAKER) (test lbsf=971) Normal PLT MORPHOLOGY (BEAKER) (test cdqm=574) Normal POLYCHROMATOPHILLIC RBCS(BEAKER) (test hyvc=787) 1+ few ANISOCYTOSIS (BEAKER) (test fmug=845) 1+ few MACROCYTES (BEAKER) (test lxuk=110) 1+ few ROULEAUX (BEAKER) (test csee=598) 1+ few SCHISTOCYTES (BEAKER) (test vsqy=475) 1+ few OVALOCYTES (BEAKER) (test earz=349) 1+ few TEAR DROP CELLS (BEAKER) (test vszt=713) 1+ few BASOPHILIC STIPPLING (BEAKER) (test oesd=936) Present ARTIFACT (CELLAVISION)(BEAKER) (test wtnf=0050) Present PLATELET CONCENTRATION (CELLAVISION)(BEAKER) Decreased (test nwdu=2098) Received comment: User comments: Slide comments:POCT-GLUCOSE [id number] 17: 47:00 Test Item Value Reference Range Comments POC-GLUCOSE METER (BEAKER) 186 mg/dL 70-[address] [facility] [address] [facility] (test uvth=4470) [facility] [address] BASIC METABOLIC [id number] 17:30:00 Test Item Value Reference Range Comments SODIUM (BEAKER) (test 142 meq/L 136-145 vqrq=741) POTASSIUM (BEAKER) (test 3.5 meq/L 3.5-5.1 stct=272) CHLORIDE (BEAKER) (test 109 meq/L 98-107 ngrj=771) CO2 (BEAKER) (test 26 meq/L 22-29 uslg=702) BLOOD UREA NITROGEN 50 mg/dL 7-21 (BEAKER) (test gsfk=034) CREATININE (BEAKER) (test 2.68 mg/dL 0.57-1.25 igod=226) GLUCOSE RANDOM (BEAKER) 170 mg/dL 70-105 (test zurk=315) CALCIUM (BEAKER) (test 8.0 mg/dL 8.4-10.2 nbcr=288) EGFR (BEAKER) (test 25 mL/min/1.73 sq m ESTIMATED GFR IS NOT pxau=8530) ACCURATE CREATININE CLEARANCE IN PREDICTING GLOMERULAR FILTRATION RATE. ESTIMATED GFR IS NOT APPLICABLE FOR DIALYSIS PATIENTS. Specimen markedly ictericLACTIC ACID, VENOUS, WHOLE [id number] 17:26:00 Test Item Value Reference Range Comments LACTATE BLOOD VENOUS (2) 1.2 mmol/L 0.5-2.2 Specimen slightly hemolyzed (BEAKER) (test dhyg=8973) Effective 09/15/2015: Units/Reference Range ChangeNew: 0.5-2.2 mmol/L Previous: 5 -20 mg/dLSpecimen markedly ictericCALCIUM, [id number] 16:37:00 Test Item Value Reference Range Comments CALCIUM IONIZED (BEAKER) (test yfkd=002) 1.08 mmol/L 1.12-1.27 PH, BLOOD (BEAKER) (test nubg=3955) 7.50 [id number] 13:56:00 Test Item Value Reference Range Comments PROCALCITONIN (BEAKER) (test bhzt=8793) 2.92 ng/mL <0.05 SEPSIS RISK (ng/mL)Low: 0.05-0.50Intermediate: 0.51-2.00High: & gt;=2.01LACTIC ACID, VENOUS, WHOLE [id number] 13:42:00 Test Item Value Reference Range Comments LACTATE BLOOD VENOUS (2) (BEAKER) (test 1.2 mmol/L 0.5-2.2 bmpd=1612) Effective 09/15/2015: Units/Reference Range ChangeNew: 0.5-2.2 mmol/L Previous: 5 -20 mg/dLSpecimen markedly ictericPOCT-GLUCOSE [id number] 13:32:00 Test Item Value Reference Range Comments POC-GLUCOSE METER (BEAKER) 195 mg/dL 70-[address] [facility] [address] [facility] (test qcsc=7480) [facility] [address] CBC W/PLT COUNT & AUTO [id number] 12:55:00 Test Item Value Reference Range Comments WHITE BLOOD CELL COUNT (BEAKER) (test obaq=021) 11.3 K/ L 3.5-10.5 RED BLOOD CELL COUNT (BEAKER) (test oufw=602) 2.48 M/ L 4.63-6.08 HEMOGLOBIN (BEAKER) (test wxfr=612) 7.7 GM/DL 13.7-17.5 HEMATOCRIT (BEAKER) (test iyub=248) 23.2 % 40.1-51.0 MEAN CORPUSCULAR VOLUME (BEAKER) (test ktkg=108) 93.5 fL 79.0-92.2 MEAN CORPUSCULAR HEMOGLOBIN (BEAKER) (test 31.0 pg 25.7-32.2 dqdy=962) MEAN CORPUSCULAR HEMOGLOBIN CONC (BEAKER) (test 33.2 GM/DL 32.3-36.5 idlu=006) RED CELL DISTRIBUTION WIDTH (BEAKER) (test 20.2 % 11.6-14.4 fykl=528) PLATELET COUNT (BEAKER) (test fgdp=705) 50 K/CU MM 150-450 MEAN PLATELET VOLUME (BEAKER) (test prjx=947) 10.3 fL 9.4-12.4 NUCLEATED RED BLOOD CELLS (BEAKER) (test 3 /100 WBC 0-0 kxxz=167) (CELLAVISION MANUAL DIFF)2018-01-30 12:55:00 Test Item Value Reference Range Comments NEUTROPHILS - REL (CELLAVISION)(BEAKER) (test 67 % bhay=7969) LYMPHOCYTES - REL (CELLAVISION)(BEAKER) (test 8 % xjwd=0182) MONOCYTES - REL (CELLAVISION)(BEAKER) (test 16 % bdqe=8697) METAMYELOCYTES - REL (CELLAVISION)(BEAKER) (test 2 % 0-0 byfk=4158) MYELOCYTES - REL (CELLAVISION)(BEAKER) (test 7 % 0-0 vqnl=7882) NEUTROPHILS - ABS (CELLAVISION)(BEAKER) (test 7.57 K/ul 1.78-5.38 xkda=8735) LYMPHOCYTES - ABS (CELLAVISION)(BEAKER) (test 0.90 K/ul 1.32-3.57 mvin=4310) MONOCYTES - ABS (CELLAVISION)(BEAKER) (test 1.81 K/uL 0.30-0.82 znnl=4406) METAMYELOCYTES - ABS (CELLAVISION)(BEAKER) (test 0.23 K/uL 0.00-0.00 szyd=5922) MYELOCYTES-ABS (CELLAVISION)(BEAKER) (test 0.79 K/uL 0.00-0.00 sjkp=4050) TOTAL COUNTED (BEAKER) (test gnhj=9571) 100 MANUAL NRBC PER 100 CELLS (BEAKER) (test 4 /100 WBC 0-0 oibr=0214) PLT MORPHOLOGY (BEAKER) (test fgjf=788) Normal SMUDGE CELLS (BEAKER) (test goqc=4924) Present POLYCHROMATOPHILLIC RBCS(BEAKER) (test lodz=952) 1+ few ANISOCYTOSIS (BEAKER) (test udjn=747) 1+ few POIKILOCYTES (BEAKER) (test wvqo=153) 1+ few TARGET CELLS (BEAKER) (test lngf=534) 1+ few MEG CELLS (BEAKER) (test ookh=869) 1+ few ARTIFACT (CELLAVISION)(BEAKER) (test djcw=5070) Present PLATELET CONCENTRATION (CELLAVISION)(BEAKER) Decreased (test dbhf=7914) Received comment: User comments: Slide comments:LACTIC ACID, VENOUS, WHOLE [id number] 12:52:00 Test Item Value Reference Range Comments LACTATE BLOOD VENOUS (2) (BEAKER) (test 1.2 mmol/L 0.5-2.2 spuv=6348) Effective 09/15/2015: Units/Reference Range ChangeNew: 0.5-2.2 mmol/L Previous: 5 -20 mg/dLSpecimen markedly ictericRAD, CHEST, 1 VIEW, NON [id number] 11:55: 00Reason for exam:->resp failureShould this be performed at the bedside?-> YesFINAL REPORT Chest one view compared to January 28, 2018 Discussion: Line/tube placement unremarkable. There is pulmonary congestion. Hazy confluent density left lung base unchanged. No gross effusion or pneumothorax. Signed: Stu Ballort Verified Date/Time: 01/30/2018 11:55:56 Reading Location: [facility] Radiology Reading Room [id number] 08:39:00 Test Item Value Reference Range Comments PHOSPHORUS (BEAKER) (test shsu=571) 2.4 mg/dL 2.3-4.7 [id number] 08:39:00 Test Item Value Reference Range Comments MAGNESIUM (BEAKER) (test sezf=745) 2.1 mg/dL 1.6-2.6 BASIC METABOLIC [id number] 08:39:00 Test Item Value Reference Range Comments SODIUM (BEAKER) (test 140 meq/L 136-145 mkye=299) POTASSIUM (BEAKER) (test 3.7 meq/L 3.5-5.1 ooqd=188) CHLORIDE (BEAKER) (test 107 meq/L 98-107 aygn=984) CO2 (BEAKER) (test 26 meq/L 22-29 ulqe=783) BLOOD UREA NITROGEN 44 mg/dL 7-21 (BEAKER) (test tfpw=596) CREATININE (BEAKER) (test 2.72 mg/dL 0.57-1.25 sysk=766) GLUCOSE RANDOM (BEAKER) 163 mg/dL 70-105 (test jzkw=107) CALCIUM (BEAKER) (test 8.1 mg/dL 8.4-10.2 bnrl=385) EGFR (BEAKER) (test 25 mL/min/1.73 sq m ESTIMATED GFR IS NOT fbms=0882) ACCURATE CREATININE CLEARANCE IN PREDICTING GLOMERULAR FILTRATION RATE. ESTIMATED GFR IS NOT APPLICABLE FOR DIALYSIS PATIENTS. Specimen markedly ictericCALCIUM, [id number] 08:19:00 Test Item Value Reference Range Comments CALCIUM IONIZED (BEAKER) (test wceo=165) 1.10 mmol/L 1.12-1.27 PH, BLOOD (BEAKER) (test plvd=9936) 7.51 CBC W/PLT COUNT & AUTO [id number] 08:05:00 Test Item Value Reference Range Comments WHITE BLOOD CELL COUNT (BEAKER) (test uycj=856) 9.6 K/ L 3.5-10.5 RED BLOOD CELL COUNT (BEAKER) (test olqv=285) 2.45 M/ L 4.63-6.08 HEMOGLOBIN (BEAKER) (test yvur=763) 7.5 GM/DL 13.7-17.5 HEMATOCRIT (BEAKER) (test qkcx=347) 22.8 % 40.1-51.0 MEAN CORPUSCULAR VOLUME (BEAKER) (test bhap=566) 93.1 fL 79.0-92.2 MEAN CORPUSCULAR HEMOGLOBIN (BEAKER) (test 30.6 pg 25.7-32.2 kuwd=845) MEAN CORPUSCULAR HEMOGLOBIN CONC (BEAKER) (test 32.9 GM/DL 32.3-36.5 zmtx=536) RED CELL DISTRIBUTION WIDTH (BEAKER) (test 19.4 % 11.6-14.4 ifec=599) PLATELET COUNT (BEAKER) (test eeiv=998) 44 K/CU MM 150-450 MEAN PLATELET VOLUME (BEAKER) (test oyzz=689) 10.1 fL 9.4-12.4 NUCLEATED RED BLOOD CELLS (BEAKER) (test 2 /100 WBC 0-0 icaj=488) (CELLAVISION MANUAL DIFF)2018-01-30 08:05:00 Test Item Value Reference Range Comments NEUTROPHILS - REL (CELLAVISION)(BEAKER) (test 66 % wflv=3120) LYMPHOCYTES - REL (CELLAVISION)(BEAKER) (test 6 % cixo=7328) MONOCYTES - REL (CELLAVISION)(BEAKER) (test 18 % sreq=8048) METAMYELOCYTES - REL (CELLAVISION)(BEAKER) (test 2 % 0-0 cliy=0182) MYELOCYTES - REL (CELLAVISION)(BEAKER) (test 4 % 0-0 gooz=7462) BANDS - REL (CELLAVISION)(BEAKER) (test 2 % 0-10 bsch=5442) ATYPICAL LYMPHOCYTES - REL (CELLAVISION)(BEAKER) 2 % 0-0 (test klme=7839) NEUTROPHILS - ABS (CELLAVISION)(BEAKER) (test 6.34 K/ul 1.78-5.38 jebp=9918) LYMPHOCYTES - ABS (CELLAVISION)(BEAKER) (test 0.58 K/ul 1.32-3.57 xgkm=4381) MONOCYTES - ABS (CELLAVISION)(BEAKER) (test 1.73 K/uL 0.30-0.82 bbqa=5497) METAMYELOCYTES - ABS (CELLAVISION)(BEAKER) (test 0.19 K/uL 0.00-0.00 wkel=7967) MYELOCYTES-ABS (CELLAVISION)(BEAKER) (test 0.38 K/uL 0.00-0.00 qeaf=0900) BANDS - ABS (CELLAVISION)(BEAKER) (test 0.19 K/uL 0.00-0.80 ados=6063) ATYPICAL LYMPHOCYTES - ABS (CELLAVISION)(BEAKER) 0.19 K/uL 0.00-0.00 (test bhql=5027) TOTAL COUNTED (BEAKER) (test jxxv=9346) 100 MANUAL NRBC PER 100 CELLS (BEAKER) (test 1 /100 WBC 0-0 pelk=8856) SMUDGE CELLS (BEAKER) (test ehkj=8143) Present GIANT PLATELETS (BEAKER) (test wbnn=443) Present ANISOCYTOSIS (BEAKER) (test xjnp=251) 1+ few POIKILOCYTES (BEAKER) (test bsrd=651) 1+ few ARTIFACT (CELLAVISION)(BEAKER) (test nwzk=2024) Present PLATELET CONCENTRATION (CELLAVISION)(BEAKER) Decreased (test blxl=4458) Received comment: User comments: Slide comments:POCT-GLUCOSE [id number] 07: 09:00 Test Item Value Reference Range Comments POC-GLUCOSE METER (BEAKER) 182 mg/dL 70-[address] [facility] [address] [facility] (test tabh=8615) [facility] [address] URINALYSIS W/ REFLEX URINE [id number] 06:57:00 Test Item Value Reference Range Comments COLOR (BEAKER) (test ryin=699) Dark Yellow CLARITY (BEAKER) (test uomv=313) Hazy SPECIFIC GRAVITY UA (BEAKER) (test donh=266) 1.015 1.001-1.035 PH UA (BEAKER) (test coru=173) 5.5 5.0-8.0 PROTEIN UA (BEAKER) (test asfm=463) 20 mg/dL Negative GLUCOSE UA (BEAKER) (test ujti=799) Negative Negative KETONES UA (BEAKER) (test cpgy=673) Negative Negative BILIRUBIN UA (BEAKER) (test seli=005) Positive Negative BLOOD UA (BEAKER) (test hbbx=121) Large Negative NITRITE UA (BEAKER) (test gmjs=655) Negative Negative LEUKOCYTE ESTERASE UA (BEAKER) (test levt=493) Negative Negative UROBILINOGEN UA (BEAKER) (test yhhf=167) 0.2 mg/dL 0.2-1.0 RBC UA (BEAKER) (test muwc=416) 10 /HPF WBC UA (BEAKER) (test islx=061) 11 /HPF MUCUS (BEAKER) (test xrlj=4201) Rare SQUAMOUS EPITHELIAL (BEAKER) (test mdfu=678) < /HPF CRYSTALS, URINE (BEAKER) (test bxba=1616) Occasional SOURCE(BEAKER) (test twwp=9677) [id number] 05:02:00 Test Item Value Reference Range Comments FIBRINOGEN LEVEL (BEAKER) (test tygg=096) 138 mg/dl 225-434 COMPREHENSIVE METABOLIC [id number] 05:01:00 Test Item Value Reference Range Comments TOTAL PROTEIN (BEAKER) 5.1 gm/dL 6.0-8.3 (test aowa=148) ALBUMIN (BEAKER) (test 2.3 g/dL 3.5-5.0 ckgc=7586) ALKALINE PHOSPHATASE 504 U/L 40-150 (BEAKER) (test xxij=174) BILIRUBIN TOTAL (BEAKER) 13.5 mg/dL 0.2-1.2 (test ruvf=780) SODIUM (BEAKER) (test 138 meq/L 136-145 wnhu=510) POTASSIUM (BEAKER) (test 3.8 meq/L 3.5-5.1 obqe=530) CHLORIDE (BEAKER) (test 106 meq/L 98-107 ldpm=073) CO2 (BEAKER) (test 27 meq/L 22-29 bkwq=453) BLOOD UREA NITROGEN 41 mg/dL 7-21 (BEAKER) (test hkec=437) CREATININE (BEAKER) (test 2.69 mg/dL 0.57-1.25 ipee=877) GLUCOSE RANDOM (BEAKER) 163 mg/dL 70-105 (test hejj=649) CALCIUM (BEAKER) (test 8.0 mg/dL 8.4-10.2 gtnf=676) AST (SGOT) (BEAKER) (test 766 U/L 5-34 xtso=667) ALT (SGPT) (BEAKER) (test 416 U/L 6-55 efuh=863) EGFR (BEAKER) (test 25 mL/min/1.73 sq m ESTIMATED GFR IS NOT ikng=1644) ACCURATE CREATININE CLEARANCE IN PREDICTING GLOMERULAR FILTRATION RATE. ESTIMATED GFR IS NOT APPLICABLE FOR DIALYSIS PATIENTS. Specimen markedly [id number] 05:00:00 Test Item Value Reference Range Comments PHOSPHORUS (BEAKER) (test flko=518) 2.3 mg/dL 2.3-4.7 [id number] 05:00:00 Test Item Value Reference Range Comments MAGNESIUM (BEAKER) (test veaf=871) 2.1 mg/dL 1.6-2.6 HEPATIC FUNCTION [id number] 05:00:00 Test Item Value Reference Range Comments TOTAL PROTEIN (BEAKER) (test cwpj=202) 5.1 gm/dL 6.0-8.3 ALBUMIN (BEAKER) (test sxti=6831) 2.3 g/dL 3.5-5.0 BILIRUBIN TOTAL (BEAKER) (test ynnh=434) 13.5 mg/dL 0.2-1.2 BILIRUBIN DIRECT (BEAKER) (test gcgi=366) 9.1 mg/dL 0.1-0.5 ALKALINE PHOSPHATASE (BEAKER) (test qlux=907) 504 U/L 40-150 AST (SGOT) (BEAKER) (test vdpb=969) 766 U/L 5-34 ALT (SGPT) (BEAKER) (test eufb=459) 416 U/L 6-55 Specimen markedly ictericPROTHROMBIN [id number] 04:57:00 Test Item Value Reference Range Comments PROTIME (BEAKER) (test qrpw=854) 26.5 seconds 11.7-14.7 INR (BEAKER) (test zzdp=241) 2.4 <=5.9 RECOMMENDED COUMADIN/WARFARIN INR THERAPY RANGESSTANDARD DOSE: 2.0 - 3.0 Includes: PROPHYLAXIS forvenous thrombosis, systemic embolization; TREATMENT for venous thrombosis and/or pulmonary embolus.HIGH RISK: Target INR is 2.5-3.5 for patients with mechanical heart valves.LACTIC ACID, VENOUS, WHOLE [id number] 04:44:00 Test Item Value Reference Range Comments LACTATE BLOOD VENOUS (2) (BEAKER) (test 1.4 mmol/L 0.5-2.2 mbio=0452) Effective 09/15/2015: Units/Reference Range ChangeNew: 0.5-2.2 mmol/L Previous: 5 -20 mg/dLSpecimen markedly ictericCALCIUM, [id number] 01:33:00 Test Item Value Reference Range Comments CALCIUM IONIZED (BEAKER) (test kmop=877) 1.07 mmol/L 1.12-1.27 PH, BLOOD (BEAKER) (test qvnw=7407) 7.47 BASIC METABOLIC [id number] 01:30:00 Test Item Value Reference Range Comments SODIUM (BEAKER) (test 138 meq/L 136-145 euht=721) POTASSIUM (BEAKER) (test 3.8 meq/L 3.5-5.1 fmov=932) CHLORIDE (BEAKER) (test 105 meq/L 98-107 yjax=951) CO2 (BEAKER) (test 28 meq/L 22-29 qvwf=015) BLOOD UREA NITROGEN 38 mg/dL 7-21 (BEAKER) (test auaz=864) CREATININE (BEAKER) (test 2.56 mg/dL 0.57-1.25 gcss=570) GLUCOSE RANDOM (BEAKER) 155 mg/dL 70-105 (test prph=703) CALCIUM (BEAKER) (test 7.9 mg/dL 8.4-10.2 ndop=626) EGFR (BEAKER) (test 27 mL/min/1.73 sq m ESTIMATED GFR IS NOT kads=3505) ACCURATE CREATININE CLEARANCE IN PREDICTING GLOMERULAR FILTRATION RATE. ESTIMATED GFR IS NOT APPLICABLE FOR DIALYSIS PATIENTS. Specimen markedly [id number] 22:15:00 Test Item Value Reference Range Comments PHOSPHORUS (BEAKER) (test fqxt=725) 2.1 mg/dL 2.3-4.7 [id number] 22:15:00 Test Item Value Reference Range Comments MAGNESIUM (BEAKER) (test onie=622) 2.0 mg/dL 1.6-2.6 [id number] 18:50:00 Test Item Value Reference Range Comments CORTISOL, TOTAL (BEAKER) (test daha=9568) 69.7 ug/dL 3.7-19.4 CBC W/PLT COUNT & AUTO [id number] 18:22:00 Test Item Value Reference Range Comments WHITE BLOOD CELL COUNT (BEAKER) (test jpmq=082) 9.7 K/ L 3.5-10.5 RED BLOOD CELL COUNT (BEAKER) (test fifj=374) 2.52 M/ L 4.63-6.08 HEMOGLOBIN (BEAKER) (test fqmv=284) 7.9 GM/DL 13.7-17.5 HEMATOCRIT (BEAKER) (test vmcy=428) 23.5 % 40.1-51.0 MEAN CORPUSCULAR VOLUME (BEAKER) (test gmmb=888) 93.3 fL 79.0-92.2 MEAN CORPUSCULAR HEMOGLOBIN (BEAKER) (test 31.3 pg 25.7-32.2 zucp=171) MEAN CORPUSCULAR HEMOGLOBIN CONC (BEAKER) (test 33.6 GM/DL 32.3-36.5 kucy=174) RED CELL DISTRIBUTION WIDTH (BEAKER) (test 19.0 % 11.6-14.4 ucnr=057) PLATELET COUNT (BEAKER) (test afpy=214) 44 K/CU MM 150-450 MEAN PLATELET VOLUME (BEAKER) (test cfwi=672) 10.7 fL 9.4-12.4 NUCLEATED RED BLOOD CELLS (BEAKER) (test 2 /100 WBC 0-0 ounm=410) (CELLAVISION MANUAL DIFF)2018-01-29 18:22:00 Test Item Value Reference Range Comments NEUTROPHILS - REL (CELLAVISION)(BEAKER) (test 76 % vxcj=2956) LYMPHOCYTES - REL (CELLAVISION)(BEAKER) (test 5 % jcxf=4601) MONOCYTES - REL (CELLAVISION)(BEAKER) (test 16 % dlab=7086) METAMYELOCYTES - REL (CELLAVISION)(BEAKER) (test 1 % 0-0 enmc=0623) MYELOCYTES - REL (CELLAVISION)(BEAKER) (test 1 % 0-0 byiv=3684) BANDS - REL (CELLAVISION)(BEAKER) (test zodb=1721) 1 % 0-10 NEUTROPHILS - ABS (CELLAVISION)(BEAKER) (test 7.37 K/ul 1.78-5.38 ondv=0247) LYMPHOCYTES - ABS (CELLAVISION)(BEAKER) (test 0.49 K/ul 1.32-3.57 wtse=7566) MONOCYTES - ABS (CELLAVISION)(BEAKER) (test 1.55 K/uL 0.30-0.82 lfvq=5649) METAMYELOCYTES - ABS (CELLAVISION)(BEAKER) (test 0.10 K/uL 0.00-0.00 knze=6831) MYELOCYTES-ABS (CELLAVISION)(BEAKER) (test 0.10 K/uL 0.00-0.00 fdfr=8560) BANDS - ABS (CELLAVISION)(BEAKER) (test kain=3612) 0.10 K/uL 0.00-0.80 TOTAL COUNTED (BEAKER) (test llfp=2042) 100 WBC MORPHOLOGY (BEAKER) (test rghm=766) Normal PLT MORPHOLOGY (BEAKER) (test wqxx=694) Normal ANISOCYTOSIS (BEAKER) (test fawt=703) 1+ few MACROCYTES (BEAKER) (test wwwb=568) 1+ few POIKILOCYTES (BEAKER) (test ooap=116) 1+ few TARGET CELLS (BEAKER) (test fxrt=233) 1+ few ARTIFACT (CELLAVISION)(BEAKER) (test uxop=9689) Present PLATELET CONCENTRATION (CELLAVISION)(BEAKER) (test Decreased ujxb=9172) Received comment: User comments: Slide comments:[id number] 18:00:00 Test Item Value Reference Range Comments SODIUM (BEAKER) (test xabf=498) 140 meq/L 136-145 BASIC METABOLIC [id number] 18:00:00 Test Item Value Reference Range Comments SODIUM (BEAKER) (test 140 meq/L 136-145 vngv=995) POTASSIUM (BEAKER) (test 3.9 meq/L 3.5-5.1 bbzn=745) CHLORIDE (BEAKER) (test 104 meq/L 98-107 cdxn=179) CO2 (BEAKER) (test 27 meq/L 22-29 vdmy=117) BLOOD UREA NITROGEN 25 mg/dL 7-21 (BEAKER) (test jvel=011) CREATININE (BEAKER) (test 2.10 mg/dL 0.57-1.25 wtbt=922) GLUCOSE RANDOM (BEAKER) 113 mg/dL 70-105 (test inhn=186) CALCIUM (BEAKER) (test 8.4 mg/dL 8.4-10.2 wjgl=669) EGFR (BEAKER) (test 33 mL/min/1.73 sq m ESTIMATED GFR IS NOT syxd=1148) ACCURATE CREATININE CLEARANCE IN PREDICTING GLOMERULAR FILTRATION RATE. ESTIMATED GFR IS NOT APPLICABLE FOR DIALYSIS PATIENTS. Specimen markedly ictericBLOOD [id number] 18:00:00 Test Item Value Reference Range Comments CULTURE (BEAKER) (test aqhg=5177) No growth in 5 days BLOOD [id number] 18:00:00 Test Item Value Reference Range Comments CULTURE (BEAKER) (test mzlv=5981) No growth in 5 days LACTIC ACID, ARTERIAL, WHOLE [id number] 17:58:00 Test Item Value Reference Range Comments LACTATE BLOOD ARTERIAL (2) (BEAKER) (test 1.1 mmol/L 0.5-2.2 kpzi=2125) Effective 09/15/2015: Units/Reference Range ChangeNew: 0.5-2.2 mmol/L Previous: 5 -20 mg/dLSpecimen markedly [id number] 17:34:00 Test Item Value Reference Range Comments FIBRINOGEN LEVEL (BEAKER) (test ayct=464) 164 mg/dl 225-434 PROTHROMBIN [id number] 17:33:00 Test Item Value Reference Range Comments PROTIME (BEAKER) (test islt=861) 25.0 seconds 11.7-14.7 INR (BEAKER) (test rvxm=984) 2.3 <=5.9 RECOMMENDED COUMADIN/WARFARIN INR THERAPY RANGESSTANDARD DOSE: 2.0 - 3.0 Includes: PROPHYLAXIS forvenous thrombosis, systemic embolization; TREATMENT for venous thrombosis and/or pulmonary embolus.HIGH RISK: Target INR is 2.5-3.5 for patients with mechanical heart valves.POCT-GLUCOSE [id number] 17:24:00 Test Item Value Reference Range Comments POC-GLUCOSE METER (BEAKER) 151 mg/dL 70-110 TESTED AT [address] (test lrnb=4107) [place] [address] CALCIUM, [id number] 16:23:00 Test Item Value Reference Range Comments CALCIUM IONIZED (BEAKER) (test kvql=020) 1.11 mmol/L 1.12-1.27 PH, BLOOD (BEAKER) (test wepa=1980) 7.51 POCT-GLUCOSE [id number] 11:48:00 Test Item Value Reference Range Comments POC-GLUCOSE METER (BEAKER) 187 mg/dL 70-110 TESTED AT [address] (test ohjw=6862) [place] [id number] BASIC METABOLIC [id number] 09:54:00 Test Item Value Reference Range Comments SODIUM (BEAKER) (test 138 meq/L 136-145 erxl=586) POTASSIUM (BEAKER) (test 3.9 meq/L 3.5-5.1 seah=757) CHLORIDE (BEAKER) (test 105 meq/L 98-107 dlal=735) CO2 (BEAKER) (test 27 meq/L 22-29 pzni=418) BLOOD UREA NITROGEN 24 mg/dL 7-21 (BEAKER) (test eedu=130) CREATININE (BEAKER) (test 2.44 mg/dL 0.57-1.25 cfsa=908) GLUCOSE RANDOM (BEAKER) 150 mg/dL 70-105 (test byzn=853) CALCIUM (BEAKER) (test 8.1 mg/dL 8.4-10.2 dndg=138) EGFR (BEAKER) (test 28 mL/min/1.73 sq m ESTIMATED GFR IS NOT nfdw=4846) ACCURATE CREATININE CLEARANCE IN PREDICTING GLOMERULAR FILTRATION RATE. ESTIMATED GFR IS NOT APPLICABLE FOR DIALYSIS PATIENTS. Specimen markedly [id number] 09:43:00 Test Item Value Reference Range Comments PHOSPHORUS (BEAKER) (test qeju=572) 1.8 mg/dL 2.3-4.7 [id number] 09:43:00 Test Item Value Reference Range Comments MAGNESIUM (BEAKER) (test lefm=209) 2.0 mg/dL 1.6-2.6 PH, [id number] 08:21:00 Test Item Value Reference Range Comments PH ARTERIAL (BEAKER) (test onzf=143) 7.47 7.35-7.45 CALCIUM, [id number] 08:20:00 Test Item Value Reference Range Comments CALCIUM IONIZED (BEAKER) (test unxu=363) 1.13 mmol/L 1.12-1.27 PH, BLOOD (BEAKER) (test tprv=8366) 7.47 HEPATITIS A ANTIBODY, [id number] 07:09:00 Test Item Value Reference Range Comments HEPATITIS A IGG ANTIBODY (BEAKER) (test zkcj=4240) Reactive Nonreactive CBC W/PLT COUNT & AUTO [id number] 06:58:00 Test Item Value Reference Range Comments WHITE BLOOD CELL COUNT (BEAKER) (test arwt=252) 7.9 K/ L 3.5-10.5 RED BLOOD CELL COUNT (BEAKER) (test akdq=316) 2.66 M/ L 4.63-6.08 HEMOGLOBIN (BEAKER) (test ncxn=011) 8.1 GM/DL 13.7-17.5 HEMATOCRIT (BEAKER) (test kzad=850) 24.7 % 40.1-51.0 MEAN CORPUSCULAR VOLUME (BEAKER) (test escn=855) 92.9 fL 79.0-92.2 MEAN CORPUSCULAR HEMOGLOBIN (BEAKER) (test 30.5 pg 25.7-32.2 ahtj=732) MEAN CORPUSCULAR HEMOGLOBIN CONC (BEAKER) (test 32.8 GM/DL 32.3-36.5 fsnh=959) RED CELL DISTRIBUTION WIDTH (BEAKER) (test 18.7 % 11.6-14.4 yidf=751) PLATELET COUNT (BEAKER) (test cfny=871) 51 K/CU MM 150-450 MEAN PLATELET VOLUME (BEAKER) (test afvg=053) 10.6 fL 9.4-12.4 NUCLEATED RED BLOOD CELLS (BEAKER) (test 1 /100 WBC 0-0 rfvq=136) (CELLAVISION MANUAL DIFF)2018-01-29 06:58:00 Test Item Value Reference Range Comments NEUTROPHILS - REL (CELLAVISION)(BEAKER) (test 82 % rrij=1256) LYMPHOCYTES - REL (CELLAVISION)(BEAKER) (test 4 % dlhg=3311) MONOCYTES - REL (CELLAVISION)(BEAKER) (test 9 % gaun=6962) MYELOCYTES - REL (CELLAVISION)(BEAKER) (test 4 % 0-0 mild=4208) BANDS - REL (CELLAVISION)(BEAKER) (test 1 % 0-10 qvok=5893) NEUTROPHILS - ABS (CELLAVISION)(BEAKER) (test 6.48 K/ul 1.78-5.38 ojwb=0595) LYMPHOCYTES - ABS (CELLAVISION)(BEAKER) (test 0.32 K/ul 1.32-3.57 aggv=6037) MONOCYTES - ABS (CELLAVISION)(BEAKER) (test 0.71 K/uL 0.30-0.82 flrq=5015) MYELOCYTES-ABS (CELLAVISION)(BEAKER) (test 0.32 K/uL 0.00-0.00 vnbx=8233) BANDS - ABS (CELLAVISION)(BEAKER) (test 0.08 K/uL 0.00-0.80 hoya=3736) TOTAL COUNTED (BEAKER) (test cynw=9006) 100 MANUAL NRBC PER 100 CELLS (BEAKER) (test 1 /100 WBC 0-0 molw=0538) WBC MORPHOLOGY (BEAKER) (test odix=740) Normal PLT MORPHOLOGY (BEAKER) (test nkal=911) Normal ANISOCYTOSIS (BEAKER) (test uihk=861) 1+ few ARTIFACT (CELLAVISION)(BEAKER) (test wmzw=5480) Present PLATELET CONCENTRATION (CELLAVISION)(BEAKER) Decreased (test xlxx=9106) Received comment: User comments: Slide comments:POCT-GLUCOSE [id number] 06: 55:00 Test Item Value Reference Range Comments POC-GLUCOSE METER (BEAKER) 174 mg/dL 70-[address] [facility] [address] [facility] (test nxky=2970) [facility] [address] [id number] 04:44:00 Test Item Value Reference Range Comments FIBRINOGEN LEVEL (BEAKER) (test fnvy=676) 150 mg/dl 225-434 HEPATITIS B SURFACE [id number] 04:34:00 Test Item Value Reference Range Comments HEPATITIS B SURFACE ANTIGEN (2) (BEAKER) (test Nonreactive Nonreactive xplu=1075) HEPATITIS B SURFACE [id number] 04:34:00 Test Item Value Reference Range Comments HEPATITIS B SURFACE ANTIBODY (BEAKER) (test 53.2 mIU/mL <8.0 zycj=525) HEPATITIS C [id number] 04:34:00 Test Item Value Reference Range Comments HEPATITIS C ANTIBODY (BEAKER) (test qyjc=313) Nonreactive Nonreactive HEPATITIS B CORE ANTIBODY, [id number] 04:34:00 Test Item Value Reference Range Comments HEPATITIS B CORE TOTAL ANTIBODY (BEAKER) (test Nonreactive Nonreactive emoi=771) HEPATIC FUNCTION [id number] 04:27:00 Test Item Value Reference Range Comments TOTAL PROTEIN (BEAKER) (test ayuk=396) 5.4 gm/dL 6.0-8.3 ALBUMIN (BEAKER) (test lzef=4754) 2.5 g/dL 3.5-5.0 BILIRUBIN TOTAL (BEAKER) (test dodb=466) 12.0 mg/dL 0.2-1.2 BILIRUBIN DIRECT (BEAKER) (test zche=180) 8.1 mg/dL 0.1-0.5 ALKALINE PHOSPHATASE (BEAKER) (test chwu=189) 575 U/L 40-150 AST (SGOT) (BEAKER) (test oguk=015) 1671 U/L 5-34 ALT (SGPT) (BEAKER) (test qghf=654) 663 U/L 6-55 Specimen markedly ictericPROTHROMBIN [id number] 04:16:00 Test Item Value Reference Range Comments PROTIME (BEAKER) (test ipnp=416) 26.2 seconds 11.7-14.7 INR (BEAKER) (test tgjt=881) 2.4 <=5.9 RECOMMENDED COUMADIN/WARFARIN INR THERAPY RANGESSTANDARD DOSE: 2.0 - 3.0 Includes: PROPHYLAXIS forvenous thrombosis, systemic embolization; TREATMENT for venous thrombosis and/or pulmonary embolus.HIGH RISK: Target INR is 2.5-3.5 for patients with mechanical heart valves.LACTIC ACID, ARTERIAL, WHOLE [id number] 04:12:00 Test Item Value Reference Range Comments LACTATE BLOOD ARTERIAL (2) (BEAKER) (test 1.5 mmol/L 0.5-2.2 txsh=4015) Effective 09/15/2015: Units/Reference Range ChangeNew: 0.5-2.2 mmol/L Previous: 5 -20 mg/dLSpecimen markedly ictericPOCT-GLUCOSE [id number] 00:26:00 Test Item Value Reference Range Comments POC-GLUCOSE METER (BEAKER) 186 mg/dL 70-[address] [facility] [address] [facility] (test psek=9281) [facility] [address] CALCIUM, [id number] 00:26:00 Test Item Value Reference Range Comments CALCIUM IONIZED (BEAKER) (test vefl=221) 1.15 mmol/L 1.12-1.27 PH, BLOOD (BEAKER) (test nvzb=1548) 7.45 BASIC METABOLIC [id number] 23:58:00 Test Item Value Reference Range Comments SODIUM (BEAKER) (test 134 meq/L 136-145 paee=984) POTASSIUM (BEAKER) (test 3.8 meq/L 3.5-5.1 xpkd=890) CHLORIDE (BEAKER) (test 103 meq/L 98-107 wdmi=080) CO2 (BEAKER) (test 27 meq/L 22-29 sraq=280) BLOOD UREA NITROGEN 23 mg/dL 7-21 (BEAKER) (test bbjp=407) CREATININE (BEAKER) (test 2.61 mg/dL 0.57-1.25 yvvd=113) GLUCOSE RANDOM (BEAKER) 151 mg/dL 70-105 (test ohdk=591) CALCIUM (BEAKER) (test 8.2 mg/dL 8.4-10.2 jxbh=179) EGFR (BEAKER) (test 26 mL/min/1.73 sq m ESTIMATED GFR IS NOT ybjq=1048) ACCURATE CREATININE CLEARANCE IN PREDICTING GLOMERULAR FILTRATION RATE. ESTIMATED GFR IS NOT APPLICABLE FOR DIALYSIS PATIENTS. Specimen markedly [id number] 20:08:00 Test Item Value Reference Range Comments PHOSPHORUS (BEAKER) (test qmks=056) 2.2 mg/dL 2.3-4.7 [id number] 20:08:00 Test Item Value Reference Range Comments MAGNESIUM (BEAKER) (test sjjl=627) 1.9 mg/dL 1.6-2.6 PH, [id number] 19:51:00 Test Item Value Reference Range Comments PH ARTERIAL (BEAKER) (test yozl=973) 7.50 7.35-7.45 RAD, CHEST, 1 VIEW, NON [id number] 18:00:00Reason for exam:->post left central line placement [...] the SVC. No other significant change. Signed: Angelique Burns MDReport Verified Date/Time: 01/28/2018 18:00:47 Reading Location: [address] Consult Reading Room POCT-GLUCOSE [id number] 17:58:00 Test Item Value Reference Range Comments POC-GLUCOSE METER (BEAKER) 161 mg/dL 70-[address] [facility] [address] (test ydik=3278) [facility] [address] BASIC METABOLIC [id number] 16:30:00 Test Item Value Reference Range Comments SODIUM (BEAKER) (test 136 meq/L 136-145 gwic=759) POTASSIUM (BEAKER) (test 4.1 meq/L 3.5-5.1 yiyi=348) CHLORIDE (BEAKER) (test 105 meq/L 98-107 tafr=980) CO2 (BEAKER) (test 26 meq/L 22-29 erxo=216) BLOOD UREA NITROGEN 23 mg/dL 7-21 (BEAKER) (test cwmz=750) CREATININE (BEAKER) (test 3.01 mg/dL 0.57-1.25 bjsb=976) GLUCOSE RANDOM (BEAKER) 136 mg/dL 70-105 (test sugv=925) CALCIUM (BEAKER) (test 8.3 mg/dL 8.4-10.2 ycnc=285) EGFR (BEAKER) (test 22 mL/min/1.73 sq m ESTIMATED GFR IS NOT uixp=3352) ACCURATE CREATININE CLEARANCE IN PREDICTING GLOMERULAR FILTRATION RATE. ESTIMATED GFR IS NOT APPLICABLE FOR DIALYSIS PATIENTS. Specimen markedly ictericPROTHROMBIN TIME/[id number] 16:25:00 Test Item Value Reference Range Comments PROTIME (BEAKER) (test zlvp=833) 28.4 seconds 11.7-14.7 INR (BEAKER) (test vclo=779) 2.7 <=5.9 RECOMMENDED COUMADIN/WARFARIN INR THERAPY RANGESSTANDARD DOSE: 2.0 - 3.0 Includes: PROPHYLAXIS forvenous thrombosis, systemic embolization; TREATMENT for venous thrombosis and/or pulmonary embolus.HIGH RISK: Target INR is 2.5-3.5 for patients with mechanical heart valves.[id number] 16:25:00 Test Item Value Reference Range Comments FIBRINOGEN LEVEL (BEAKER) (test zvey=471) 165 mg/dl 225-434 LACTIC ACID, ARTERIAL, WHOLE [id number] 16:24:00 Test Item Value Reference Range Comments LACTATE BLOOD ARTERIAL (2) 1.4 mmol/L 0.5-2.2 Specimen slightly hemolyzed (BEAKER) (test xzsu=9082) Effective 09/15/2015: Units/Reference Range ChangeNew: 0.5-2.2 mmol/L Previous: 5 -20 mg/dLSpecimen moderately ictericCBC W/PLT COUNT & AUTO [id number] 16:11:00 Test Item Value Reference Range Comments WHITE BLOOD CELL COUNT (BEAKER) (test sfey=799) 4.9 K/ L 3.5-10.5 RED BLOOD CELL COUNT (BEAKER) (test zwir=265) 2.69 M/ L 4.63-6.08 HEMOGLOBIN (BEAKER) (test foms=650) 8.2 GM/DL 13.7-17.5 HEMATOCRIT (BEAKER) (test rdmm=428) 25.3 % 40.1-51.0 MEAN CORPUSCULAR VOLUME (BEAKER) (test yspj=632) 94.1 fL 79.0-92.2 MEAN CORPUSCULAR HEMOGLOBIN (BEAKER) (test 30.5 pg 25.7-32.2 xrhg=185) MEAN CORPUSCULAR HEMOGLOBIN CONC (BEAKER) (test 32.4 GM/DL 32.3-36.5 acez=625) RED CELL DISTRIBUTION WIDTH (BEAKER) (test 18.6 % 11.6-14.4 rqbi=693) PLATELET COUNT (BEAKER) (test oito=984) 31 K/CU MM 150-450 MEAN PLATELET VOLUME (BEAKER) (test ovyv=572) 10.0 fL 9.4-12.4 NUCLEATED RED BLOOD CELLS (BEAKER) (test 3 /100 WBC 0-0 ewis=970) NEUTROPHILS RELATIVE PERCENT (BEAKER) (test 78 % onzw=405) LYMPHOCYTES RELATIVE PERCENT (BEAKER) (test 6 % xwip=924) MONOCYTES RELATIVE PERCENT (BEAKER) (test 13 % vevm=446) EOSINOPHILS RELATIVE PERCENT (BEAKER) (test 0 % mjxp=429) BASOPHILS RELATIVE PERCENT (BEAKER) (test 0 % kqof=604) NEUTROPHILS ABSOLUTE COUNT (BEAKER) (test 3.77 K/ L 1.78-5.38 jnic=949) LYMPHOCYTES ABSOLUTE COUNT (BEAKER) (test 0.28 K/ L 1.32-3.57 wxxe=375) MONOCYTES ABSOLUTE COUNT (BEAKER) (test mqnv=013) 0.63 K/ L 0.30-0.82 EOSINOPHILS ABSOLUTE COUNT (BEAKER) (test 0.00 K/ L 0.04-0.54 nvng=464) BASOPHILS ABSOLUTE COUNT (BEAKER) (test xoqf=597) 0.01 K/ L 0.01-0.08 IMMATURE GRANULOCYTES-RELATIVE PERCENT (BEAKER) 3 % 0-1 (test cgyd=1689) CALCIUM, [id number] 15:58:00 Test Item Value Reference Range Comments CALCIUM IONIZED (BEAKER) (test cbnv=072) 1.13 mmol/L 1.12-1.27 PH, BLOOD (BEAKER) (test oyub=5496) 7.49 RAD, CHEST, 1 VIEW, NON [id number] 14:56:00Reason for exam:->s/p central lineFINAL REPORT Chest [...] over the right upper quadrant. Signed: Marla Lemaort Verified Date/Time: 01/28/2018 14:56:14 Reading Location: [address] Consult Reading Room VANCOMYCIN LEVEL, [id number] 14:17:00 Test Item Value Reference Range Comments VANCOMYCIN TROUGH (BEAKER) (test eljy=207) 10.2 ug/mL 10.0-20.0 EEG AWAKE AND [id number] 13:37:00Reason for exam:->assess for epilepsy , 52 yo with GI bleed from esophageal varices, off sedation but not alert or oriented, previous EEG performed on ativanNeurophysiology Electroencephalogram Report DATE OF REPORT: 01/28/18Date(s) of Study: 01/28/2018ACC: [id number]: 18- 1740Start time: 0921 hrsStop time: 0943 hrsICD-10: R41.82 Altered Mental StatusCPT Code: 18878 EEG: coma or sleep only < 40 [...] including no electrographic seizures. Giselle Wright MDEpilepsy FellowST. LUKE'S MCCALL Neurophysiology Service Reggie Gerard M.D., FACNS, FAAN, FAESProfessor of Neurology, [facility] College of MedicineDirector, [facility] Epilepsy CenterWilson HealthEmmettmethodist [facility] Neurophysiology Lab HEPATIC FUNCTION [id number] 12:32:00 Test Item Value Reference Range Comments TOTAL PROTEIN (BEAKER) (test nopz=159) 5.1 gm/dL 6.0-8.3 ALBUMIN (BEAKER) (test wruf=5306) 2.4 g/dL 3.5-5.0 BILIRUBIN TOTAL (BEAKER) (test mrqk=032) 10.8 mg/dL 0.2-1.2 BILIRUBIN DIRECT (BEAKER) (test zhaf=720) 7.0 mg/dL 0.1-0.5 ALKALINE PHOSPHATASE (BEAKER) (test vjmi=036) 551 U/L 40-150 AST (SGOT) (BEAKER) (test awtl=587) 2827 U/L 5-34 ALT (SGPT) (BEAKER) (test ctxp=674) 878 U/L 6-55 Specimen markedly ictericPOCT-GLUCOSE [id number] 12:13:00 Test Item Value Reference Range Comments POC-GLUCOSE METER (BEAKER) 199 mg/dL 70-[address] [facility] [address] [facility] (test wzvf=5313) [facility] [address] BASIC METABOLIC [id number] 08:49:00 Test Item Value Reference Range Comments SODIUM (BEAKER) (test 136 meq/L 136-145 dxxu=844) POTASSIUM (BEAKER) (test 4.0 meq/L 3.5-5.1 iqjt=833) CHLORIDE (BEAKER) (test 105 meq/L 98-107 rvsy=670) CO2 (BEAKER) (test 25 meq/L 22-29 buhp=579) BLOOD UREA NITROGEN 20 mg/dL 7-21 (BEAKER) (test ekox=723) CREATININE (BEAKER) (test 2.84 mg/dL 0.57-1.25 mnnd=872) GLUCOSE RANDOM (BEAKER) 161 mg/dL 70-105 (test yiie=446) CALCIUM (BEAKER) (test 8.2 mg/dL 8.4-10.2 mxlm=549) EGFR (BEAKER) (test 24 mL/min/1.73 sq m ESTIMATED GFR IS NOT pnkn=2864) ACCURATE CREATININE CLEARANCE IN PREDICTING GLOMERULAR FILTRATION RATE. ESTIMATED GFR IS NOT APPLICABLE FOR DIALYSIS PATIENTS. Specimen moderately [id number] 08:31:00 Test Item Value Reference Range Comments PHOSPHORUS (BEAKER) (test pzfb=106) 2.9 mg/dL 2.3-4.7 [id number] 08:31:00 Test Item Value Reference Range Comments MAGNESIUM (BEAKER) (test xfne=010) 2.3 mg/dL 1.6-2.6 LACTIC ACID, ARTERIAL, WHOLE [id number] 08:26:00 Test Item Value Reference Range Comments LACTATE BLOOD ARTERIAL (2) (BEAKER) (test 1.3 mmol/L 0.5-2.2 kgvy=5013) Effective 09/15/2015: Units/Reference Range ChangeNew: 0.5-2.2 mmol/L Previous: 5 -20 mg/dLSpecimen moderately ictericPROTHROMBIN [id number] 08:18:00 Test Item Value Reference Range Comments PROTIME (BEAKER) (test ypaf=614) 28.0 seconds 11.7-14.7 INR (BEAKER) (test clth=170) 2.6 <=5.9 RECOMMENDED COUMADIN/WARFARIN INR THERAPY RANGESSTANDARD DOSE: 2.0 - 3.0 Includes: PROPHYLAXIS forvenous thrombosis, systemic embolization; TREATMENT for venous thrombosis and/or pulmonary embolus.HIGH RISK: Target INR is 2.5-3.5 for patients with mechanical heart valves.[id number] 08:18:00 Test Item Value Reference Range Comments FIBRINOGEN LEVEL (AKER) (test nswy=046) 191 mg/dl 225-434 POCT-GLUCOSE [id number] 08:17:00 Test Item Value Reference Range Comments POC-GLUCOSE METER ([facility]) 172 mg/dL 70-110 TESTED AT [address] (test cghi=5601) [place] [id number] CALCIUM, [id number] 08:13:00 Test Item Value Reference Range Comments CALCIUM IONIZED (AKER) (test arww=027) 1.16 mmol/L 1.12-1.27 PH, BLOOD ([facility]) (test weck=6113) 7.47 POCT-GLUCOSE [id number] 06:33:00 Test Item Value Reference Range Comments POC-GLUCOSE METER (AKER) 172 mg/dL 70-110 TESTED AT [address] (test bumc=6327) [place] [id number] CBC W/PLT COUNT & AUTO [id number] 06:16:00 Test Item Value Reference Range Comments WHITE BLOOD CELL COUNT (BEAKER) (test gujh=708) 4.4 K/ L 3.5-10.5 RED BLOOD CELL COUNT (AKER) (test njyn=936) 2.62 M/ L 4.63-6.08 HEMOGLOBIN (BEAKER) (test jzlc=503) 8.1 GM/DL 13.7-17.5 HEMATOCRIT (BEAKER) (test ppzy=065) 24.7 % 40.1-51.0 MEAN CORPUSCULAR VOLUME (BEAKER) (test pmll=570) 94.3 fL 79.0-92.2 MEAN CORPUSCULAR HEMOGLOBIN (BEAKER) (test 30.9 pg 25.7-32.2 kvsp=570) MEAN CORPUSCULAR HEMOGLOBIN CONC (BEAKER) (test 32.8 GM/DL 32.3-36.5 egaq=248) RED CELL DISTRIBUTION WIDTH (BEAKER) (test 18.8 % 11.6-14.4 icyl=271) PLATELET COUNT (BEAKER) (test amit=154) 33 K/CU MM 150-450 MEAN PLATELET VOLUME (BEAKER) (test jwii=665) 10.2 fL 9.4-12.4 NUCLEATED RED BLOOD CELLS (BEAKER) (test 3 /100 WBC 0-0 dpir=080) NEUTROPHILS RELATIVE PERCENT (BEAKER) (test 81 % gwwz=890) LYMPHOCYTES RELATIVE PERCENT (BEAKER) (test 7 % tgcq=962) MONOCYTES RELATIVE PERCENT (BEAKER) (test 10 % beuo=268) EOSINOPHILS RELATIVE PERCENT (BEAKER) (test 0 % cjfi=471) BASOPHILS RELATIVE PERCENT (BEAKER) (test 0 % yzxe=588) NEUTROPHILS ABSOLUTE COUNT (BEAKER) (test 3.52 K/ L 1.78-5.38 taqg=337) LYMPHOCYTES ABSOLUTE COUNT (BEAKER) (test 0.30 K/ L 1.32-3.57 rqwe=498) MONOCYTES ABSOLUTE COUNT (BEAKER) (test khfn=406) 0.45 K/ L 0.30-0.82 EOSINOPHILS ABSOLUTE COUNT (BEAKER) (test 0.01 K/ L 0.04-0.54 qyhs=367) BASOPHILS ABSOLUTE COUNT (BEAKER) (test okps=383) 0.01 K/ L 0.01-0.08 IMMATURE GRANULOCYTES-RELATIVE PERCENT (BEAKER) 2 % 0-1 (test sycb=4511) BLOOD GAS, [id number] 04:17:00 Test Item Value Reference Range Comments PH ARTERIAL (BEAKER) (test qacr=427) 7.41 7.35-7.45 PCO2 ARTERIAL (BEAKER) (test mueb=072) 46 mmHg 35-45 PO2 ARTERIAL (BEAKER) (test boyf=543) 90 mmHg 80-90 O2 SATURATION ARTERIAL (BEAKER) (test nwlk=732) 96.9 % 96.0-97.0 HCO3 ARTERIAL (BEAKER) (test kwmx=062) 28 mmol/L 21-29 BASE EXCESS ARTERIAL (BEAKER) (test namc=296) 3.3 mmol/L -2.0-3.0 PATIENT TEMPERATURE (BEAKER) (test oagx=6994) 37.0 C FIO2 (BEAKER) (test hspd=6798) 35.0 % BILIRUBIN, [id number] 04:10:00 Test Item Value Reference Range Comments BILIRUBIN DIRECT (BEAKER) (test pair=334) 7.3 mg/dL 0.1-0.5 LACTIC ACID, ARTERIAL, WHOLE [id number] 03:57:00 Test Item Value Reference Range Comments LACTATE BLOOD ARTERIAL (2) (BEAKER) (test 1.4 mmol/L 0.5-2.2 vlit=5125) Effective 09/15/2015: Units/Reference Range ChangeNew: 0.5-2.2 mmol/L Previous: 5 -20 mg/dLSpecimen moderately [id number] 03:54:00 Test Item Value Reference Range Comments FIBRINOGEN LEVEL (BEAKER) (test pgoi=439) 193 mg/dl 225-434 PROTHROMBIN [id number] 03:53:00 Test Item Value Reference Range Comments PROTIME (BEAKER) (test zepm=471) 27.5 seconds 11.7-14.7 INR (BEAKER) (test rgqh=858) 2.6 <=5.9 RECOMMENDED COUMADIN/WARFARIN INR THERAPY RANGESSTANDARD DOSE: 2.0 - 3.0 Includes: PROPHYLAXIS forvenous thrombosis, systemic embolization; TREATMENT for venous thrombosis and/or pulmonary embolus.HIGH RISK: Target INR is 2.5-3.5 for patients with mechanical heart valves.RAD, CHEST, 1 VIEW, NON [id number] 03:45:00Reason for exam:->intubatedShould this be performed at the bedside ?->YesFINAL REPORT CLINICAL INDICATION: Support lines. Comparison: 01/27/2018 The cardiomediastinal contours are stable. Central pulmonary vascular congestion and bilateral parenchymaland pleural opacities are unchanged. There is no pneumothorax. An enteric tube traverses examinationto the upper abdomen. An endotracheal tube is stable. Signed: Gaurav Cunningham MDReport Verified Date/Time: 01/28/2018 03:45:51 Reading Location: [address] Reading Room CALCIUM, [id number] 00:45:00 Test Item Value Reference Range Comments CALCIUM IONIZED (BEAKER) (test kjvy=902) 1.12 mmol/L 1.12-1.27 PH, BLOOD (BEAKER) (test xxgj=6298) 7.38 BASIC METABOLIC [id number] 00:28:00 Test Item Value Reference Range Comments SODIUM (BEAKER) (test 134 meq/L 136-145 irid=452) POTASSIUM (BEAKER) (test 3.8 meq/L 3.5-5.1 uezg=102) CHLORIDE (BEAKER) (test 101 meq/L 98-107 pbnu=843) CO2 (BEAKER) (test 26 meq/L 22-29 nxqa=613) BLOOD UREA NITROGEN 19 mg/dL 7-21 (BEAKER) (test lyow=872) CREATININE (BEAKER) (test 2.73 mg/dL 0.57-1.25 qnzv=063) GLUCOSE RANDOM (BEAKER) 161 mg/dL 70-105 (test aosl=009) CALCIUM (BEAKER) (test 8.1 mg/dL 8.4-10.2 vtyx=489) EGFR (BEAKER) (test 25 mL/min/1.73 sq m ESTIMATED GFR IS NOT uuec=6594) ACCURATE CREATININE CLEARANCE IN PREDICTING GLOMERULAR FILTRATION RATE. ESTIMATED GFR IS NOT APPLICABLE FOR DIALYSIS PATIENTS. Specimen markedly ictericLACTIC ACID, ARTERIAL, WHOLE [id number] 00:18:00 Test Item Value Reference Range Comments LACTATE BLOOD ARTERIAL (2) (BEAKER) (test 2.5 mmol/L 0.5-2.2 cfne=2500) Effective 09/15/2015: Units/Reference Range ChangeNew: 0.5-2.2 mmol/L Previous: 5 -20 mg/dLSpecimen markedly ictericPROTHROMBIN [id number] 00:14:00 Test Item Value Reference Range Comments PROTIME (BEAKER) (test zgjr=542) 28.1 seconds 11.7-14.7 INR (BEAKER) (test rkfg=838) 2.6 <=5.9 RECOMMENDED COUMADIN/WARFARIN INR THERAPY RANGESSTANDARD DOSE: 2.0 - 3.0 Includes: PROPHYLAXIS forvenous thrombosis, systemic embolization; TREATMENT for venous thrombosis and/or pulmonary embolus.HIGH RISK: Target INR is 2.5-3.5 for patients with mechanical heart valves.[id number] 00:14:00 Test Item Value Reference Range Comments FIBRINOGEN LEVEL (BEAKER) (test yrlx=776) 196 mg/dl 225-434 CBC W/PLT COUNT & AUTO [id number] 00:08:00 Test Item Value Reference Range Comments WHITE BLOOD CELL COUNT (BEAKER) (test qbzo=165) 4.7 K/ L 3.5-10.5 RED BLOOD CELL COUNT (BEAKER) (test facn=539) 2.62 M/ L 4.63-6.08 HEMOGLOBIN (BEAKER) (test mouj=684) 8.0 GM/DL 13.7-17.5 HEMATOCRIT (BEAKER) (test razj=756) 24.8 % 40.1-51.0 MEAN CORPUSCULAR VOLUME (BEAKER) (test dnnd=878) 94.7 fL 79.0-92.2 MEAN CORPUSCULAR HEMOGLOBIN (BEAKER) (test 30.5 pg 25.7-32.2 gyyj=842) MEAN CORPUSCULAR HEMOGLOBIN CONC (BEAKER) (test 32.3 GM/DL 32.3-36.5 hlne=033) RED CELL DISTRIBUTION WIDTH (BEAKER) (test 18.8 % 11.6-14.4 lvbi=619) PLATELET COUNT (BEAKER) (test xrii=954) 37 K/CU MM 150-450 MEAN PLATELET VOLUME (BEAKER) (test bgsv=050) 9.9 fL 9.4-12.4 NUCLEATED RED BLOOD CELLS (BEAKER) (test 3 /100 WBC 0-0 modp=072) NEUTROPHILS RELATIVE PERCENT (BEAKER) (test 82 % oxdw=810) LYMPHOCYTES RELATIVE PERCENT (BEAKER) (test 6 % xbww=702) MONOCYTES RELATIVE PERCENT (BEAKER) (test 11 % wrwb=317) EOSINOPHILS RELATIVE PERCENT (BEAKER) (test 0 % qvfi=992) BASOPHILS RELATIVE PERCENT (BEAKER) (test 0 % rzfk=830) NEUTROPHILS ABSOLUTE COUNT (BEAKER) (test 3.81 K/ L 1.78-5.38 ghxd=838) LYMPHOCYTES ABSOLUTE COUNT (BEAKER) (test 0.29 K/ L 1.32-3.57 agkt=244) MONOCYTES ABSOLUTE COUNT (BEAKER) (test ured=512) 0.49 K/ L 0.30-0.82 EOSINOPHILS ABSOLUTE COUNT (BEAKER) (test 0.00 K/ L 0.04-0.54 jvex=910) BASOPHILS ABSOLUTE COUNT (BEAKER) (test wzqc=306) 0.00 K/ L 0.01-0.08 IMMATURE GRANULOCYTES-RELATIVE PERCENT (BEAKER) 1 % 0-1 (test bhjt=3885) POCT-GLUCOSE [id number] 22:25:00 Test Item Value Reference Range Comments POC-GLUCOSE METER (BEAKER) 180 mg/dL 70-[address] [facility] [address] [facility] (test gody=0515) [facility] [address] [id number] 20:22:00 Test Item Value Reference Range Comments PHOSPHORUS (BEAKER) (test oiml=506) 3.4 mg/dL 2.3-4.7 [id number] 20:22:00 Test Item Value Reference Range Comments MAGNESIUM (BEAKER) (test cddl=194) 2.0 mg/dL 1.6-2.6 LACTIC ACID, ARTERIAL, WHOLE [id number] 20:20:00 Test Item Value Reference Range Comments LACTATE BLOOD ARTERIAL (2) (BEAKER) (test 1.4 mmol/L 0.5-2.2 rsjy=2977) Effective 09/15/2015: Units/Reference Range ChangeNew: 0.5-2.2 mmol/L Previous: 5 -20 mg/dLSpecimen moderately [id number] 20:19:00 Test Item Value Reference Range Comments FIBRINOGEN LEVEL (BEAKER) (test nszb=779) 191 mg/dl 225-434 PROTHROMBIN [id number] 20:18:00 Test Item Value Reference Range Comments PROTIME (BEAKER) (test lnix=550) 29.7 seconds 11.7-14.7 INR (BEAKER) (test fdye=409) 2.8 <=5.9 RECOMMENDED COUMADIN/WARFARIN INR THERAPY RANGESSTANDARD DOSE: 2.0 - 3.0 Includes: PROPHYLAXIS forvenous thrombosis, systemic embolization; TREATMENT for venous thrombosis and/or pulmonary embolus.HIGH RISK: Target INR is 2.5-3.5 for patients with mechanical heart valves.PH, [id number] 20:07:00 Test Item Value Reference Range Comments PH ARTERIAL (BEAKER) (test utfl=404) 7.43 7.35-7.45 BASIC METABOLIC [id number] 17:52:00 Test Item Value Reference Range Comments SODIUM (BEAKER) (test 135 meq/L 136-145 fdls=053) POTASSIUM (BEAKER) (test 4.3 meq/L 3.5-5.1 djyx=625) CHLORIDE (BEAKER) (test 102 meq/L 98-107 hhgi=435) CO2 (BEAKER) (test 27 meq/L 22-29 qzgr=999) BLOOD UREA NITROGEN 17 mg/dL 7-21 (BEAKER) (test ouwn=385) CREATININE (BEAKER) (test 2.72 mg/dL 0.57-1.25 drij=822) GLUCOSE RANDOM (BEAKER) 141 mg/dL 70-105 (test dvxv=350) CALCIUM (BEAKER) (test 8.3 mg/dL 8.4-10.2 ltkn=857) EGFR (BEAKER) (test 25 mL/min/1.73 sq m ESTIMATED GFR IS NOT cdor=0159) ACCURATE CREATININE CLEARANCE IN PREDICTING GLOMERULAR FILTRATION RATE. ESTIMATED GFR IS NOT APPLICABLE FOR DIALYSIS PATIENTS. Specimen moderately ictericCALCIUM, [id number] 17:48:00 Test Item Value Reference Range Comments CALCIUM IONIZED (BEAKER) (test yxfh=484) 1.14 mmol/L 1.12-1.27 PH, BLOOD (BEAKER) (test qfsv=6061) 7.41 POCT-GLUCOSE [id number] 17:45:00 Test Item Value Reference Range Comments POC-GLUCOSE METER (BEAKER) 164 mg/dL 70-110 TESTED AT [address] (test pton=0189) [facility] [address] LACTIC ACID, ARTERIAL, WHOLE [id number] 17:37:00 Test Item Value Reference Range Comments LACTATE BLOOD ARTERIAL (2) (BEAKER) (test 1.5 mmol/L 0.5-2.2 ghcd=9659) Effective 09/15/2015: Units/Reference Range ChangeNew: 0.5-2.2 mmol/L Previous: 5 -20 mg/dLSpecimen moderately ictericCBC W/PLT COUNT & AUTO [id number] 17:35:00 Test Item Value Reference Range Comments WHITE BLOOD CELL COUNT (BEAKER) (test nnav=266) 4.4 K/ L 3.5-10.5 RED BLOOD CELL COUNT (BEAKER) (test nbyy=018) 2.54 M/ L 4.63-6.08 HEMOGLOBIN (BEAKER) (test uyfm=029) 7.9 GM/DL 13.7-17.5 HEMATOCRIT (BEAKER) (test beza=884) 24.0 % 40.1-51.0 MEAN CORPUSCULAR VOLUME (BEAKER) (test xuox=032) 94.5 fL 79.0-92.2 MEAN CORPUSCULAR HEMOGLOBIN (BEAKER) (test 31.1 pg 25.7-32.2 yqyy=826) MEAN CORPUSCULAR HEMOGLOBIN CONC (BEAKER) (test 32.9 GM/DL 32.3-36.5 nbot=815) RED CELL DISTRIBUTION WIDTH (BEAKER) (test 19.3 % 11.6-14.4 ckgp=368) PLATELET COUNT (BEAKER) (test slan=199) 40 K/CU MM 150-450 MEAN PLATELET VOLUME (BEAKER) (test qrfv=994) 10.1 fL 9.4-12.4 NUCLEATED RED BLOOD CELLS (BEAKER) (test 3 /100 WBC 0-0 hpmm=672) NEUTROPHILS RELATIVE PERCENT (BEAKER) (test 80 % ivqz=162) LYMPHOCYTES RELATIVE PERCENT (BEAKER) (test 8 % lmai=553) MONOCYTES RELATIVE PERCENT (BEAKER) (test 11 % ellu=984) EOSINOPHILS RELATIVE PERCENT (BEAKER) (test 0 % jegy=611) BASOPHILS RELATIVE PERCENT (BEAKER) (test 0 % nmti=105) NEUTROPHILS ABSOLUTE COUNT (BEAKER) (test 3.53 K/ L 1.78-5.38 lvog=965) LYMPHOCYTES ABSOLUTE COUNT (BEAKER) (test 0.35 K/ L 1.32-3.57 iaup=114) MONOCYTES ABSOLUTE COUNT (BEAKER) (test jjgw=380) 0.47 K/ L 0.30-0.82 EOSINOPHILS ABSOLUTE COUNT (BEAKER) (test 0.01 K/ L 0.04-0.54 mdff=183) BASOPHILS ABSOLUTE COUNT (BEAKER) (test bfxg=778) 0.01 K/ L 0.01-0.08 IMMATURE GRANULOCYTES-RELATIVE PERCENT (BEAKER) 1 % 0-1 (test eojw=8554) PROTHROMBIN [id number] 17:29:00 Test Item Value Reference Range Comments PROTIME (BEAKER) (test yaor=655) 28.6 seconds 11.7-14.7 INR (BEAKER) (test hfto=813) 2.7 <=5.9 RECOMMENDED COUMADIN/WARFARIN INR THERAPY RANGESSTANDARD DOSE: 2.0 - 3.0 Includes: PROPHYLAXIS forvenous thrombosis, systemic embolization; TREATMENT for venous thrombosis and/or pulmonary embolus.HIGH RISK: Target INR is 2.5-3.5 for patients with mechanical heart valves.[id number] 17:29:00 Test Item Value Reference Range Comments FIBRINOGEN LEVEL (BEAKER) (test ugap=689) 201 mg/dl 225-434 VITAMIN B12 AND [id number] 14:13:00 Test Item Value Reference Range Comments VITAMIN B12 (BEAKER) (test exif=362) > pg/mL 213-816 FOLATE (BEAKER) (test mety=916) 10.4 ng/mL >=7.0 CBC W/PLT COUNT & AUTO [id number] 13:41:00 Test Item Value Reference Range Comments WHITE BLOOD CELL COUNT (BEAKER) (test zevr=144) 5.4 K/ L 3.5-10.5 RED BLOOD CELL COUNT (BEAKER) (test ekxa=606) 2.53 M/ L 4.63-6.08 HEMOGLOBIN (BEAKER) (test dwzi=938) 7.8 GM/DL 13.7-17.5 HEMATOCRIT (BEAKER) (test hkqo=399) 24.0 % 40.1-51.0 MEAN CORPUSCULAR VOLUME (BEAKER) (test pjzl=446) 94.9 fL 79.0-92.2 MEAN CORPUSCULAR HEMOGLOBIN (BEAKER) (test 30.8 pg 25.7-32.2 gnuh=837) MEAN CORPUSCULAR HEMOGLOBIN CONC (BEAKER) (test 32.5 GM/DL 32.3-36.5 woij=543) RED CELL DISTRIBUTION WIDTH (BEAKER) (test 19.3 % 11.6-14.4 llvg=515) PLATELET COUNT (BEAKER) (test kttg=069) 44 K/CU MM 150-450 MEAN PLATELET VOLUME (BEAKER) (test umye=154) 9.9 fL 9.4-12.4 NUCLEATED RED BLOOD CELLS (BEAKER) (test 2 /100 WBC 0-0 lajp=471) (CELLAVISION MANUAL DIFF)2018-01-27 13:41:00 Test Item Value Reference Range Comments NEUTROPHILS - REL (CELLAVISION)(BEAKER) (test 64 % dohg=6343) LYMPHOCYTES - REL (CELLAVISION)(BEAKER) (test 7 % pxnj=5913) MONOCYTES - REL (CELLAVISION)(BEAKER) (test 5 % vgaf=4873) BANDS - REL (CELLAVISION)(BEAKER) (test 24 % 0-10 dhky=3886) NEUTROPHILS - ABS (CELLAVISION)(BEAKER) (test 3.46 K/ul 1.78-5.38 eazc=0989) LYMPHOCYTES - ABS (CELLAVISION)(BEAKER) (test 0.38 K/ul 1.32-3.57 ayqs=6515) MONOCYTES - ABS (CELLAVISION)(BEAKER) (test 0.27 K/uL 0.30-0.82 xsjr=0259) BANDS - ABS (CELLAVISION)(BEAKER) (test 1.30 K/uL 0.00-0.80 aiti=0215) TOTAL COUNTED (BEAKER) (test mfmb=1602) 100 MANUAL NRBC PER 100 CELLS (BEAKER) (test 3 /100 WBC 0-0 zlqk=4182) WBC MORPHOLOGY (BEAKER) (test zkzc=132) Normal PLT MORPHOLOGY (BEAKER) (test nkkl=351) Normal POLYCHROMATOPHILLIC RBCS(BEAKER) (test dngh=262) 1+ few ANISOCYTOSIS (BEAKER) (test clwq=058) 1+ few ARTIFACT (CELLAVISION)(BEAKER) (test takp=4671) Present PLATELET CONCENTRATION (CELLAVISION)(BEAKER) Decreased (test uvxh=2489) Received comment: User comments: Slide comments:BILIRUBIN, [id number] 13: 30:00 Test Item Value Reference Range Comments BILIRUBIN DIRECT (BEAKER) (test mvnz=653) 7.0 mg/dL 0.1-0.5 LACTIC ACID, ARTERIAL, WHOLE [id number] 13:25:00 Test Item Value Reference Range Comments LACTATE BLOOD ARTERIAL (2) (BEAKER) (test 1.8 mmol/L 0.5-2.2 njdy=2843) Effective 09/15/2015: Units/Reference Range ChangeNew: 0.5-2.2 mmol/L Previous: 5 -20 mg/dLSpecimen moderately ictericPROTHROMBIN [id number] 13:20:00 Test Item Value Reference Range Comments PROTIME (BEAKER) (test ygum=710) 29.7 seconds 11.7-14.7 INR (BEAKER) (test jtxn=566) 2.8 <=5.9 RECOMMENDED COUMADIN/WARFARIN INR THERAPY RANGESSTANDARD DOSE: 2.0 - 3.0 Includes: PROPHYLAXIS forvenous thrombosis, systemic embolization; TREATMENT for venous thrombosis and/or pulmonary embolus.HIGH RISK: Target INR is 2.5-3.5 for patients with mechanical heart valves.[id number] 13:20:00 Test Item Value Reference Range Comments FIBRINOGEN LEVEL (BEAKER) (test dkwl=668) 216 mg/dl 225-434 RAD, ABDOMEN/KUB, 1 VIEW [id number] 12:00:00Reason for exam:->corpakFINAL REPORT Abdomen. MEDICAL HISTORY: [...] for the detection of free air. Signed: Angelique Burns MDReport Verified Date/Time: 01/27/2018 12:00:05 Reading Location: [facility] C013Y CT Body Reading Room BASI METABOLIC [id number] 09:09:00 Test Item Value Reference Range Comments SODIUM (BEAKER) (test 135 meq/L 136-145 ihdc=404) POTASSIUM (BEAKER) (test 4.4 meq/L 3.5-5.1 mwij=401) CHLORIDE (BEAKER) (test 101 meq/L 98-107 hqwn=265) CO2 (BEAKER) (test 26 meq/L 22-29 qvpr=209) BLOOD UREA NITROGEN 15 mg/dL 7-21 (BEAKER) (test jqny=843) CREATININE (BEAKER) (test 2.77 mg/dL 0.57-1.25 xxqa=994) GLUCOSE RANDOM (BEAKER) 145 mg/dL 70-105 (test qika=993) CALCIUM (BEAKER) (test 8.7 mg/dL 8.4-10.2 dywa=076) EGFR (BEAKER) (test 24 mL/min/1.73 sq m ESTIMATED GFR IS NOT xvjh=0590) ACCURATE CREATININE CLEARANCE IN PREDICTING GLOMERULAR FILTRATION RATE. ESTIMATED GFR IS NOT APPLICABLE FOR DIALYSIS PATIENTS. Specimen moderately ictericRAD, CHEST, 1 VIEW, NON [id number] 09:05: 00Reason for exam:->intubatedShould this be performed at the bedside?-> YesFINAL REPORT AP chest HISTORY: Intubation COMPARISON: 01/26/2018 IMPRESSION:Endotracheal tube in satisfactory position. Stable cardiac silhouette. Worsened interstitial edema. Worsening aeration of the lung bases suggestive of atelectasis. Moderate effusions. No pneumothorax. Signed: Alexia Brayeport Verified Date/Time: 01/27/2018 09:05:55 Reading Location: [facility] H389ZXobro Consult Reading Room [id number] 08:59:00 Test Item Value Reference Range Comments PHOSPHORUS (BEAKER) (test ywai=997) 3.9 mg/dL 2.3-4.7 [id number] 08:59:00 Test Item Value Reference Range Comments MAGNESIUM (BEAKER) (test tyqd=769) 1.9 mg/dL 1.6-2.6 LACTIC ACID, ARTERIAL, WHOLE [id number] 08:55:00 Test Item Value Reference Range Comments LACTATE BLOOD ARTERIAL (2) (BEAKER) (test 2.4 mmol/L 0.5-2.2 ilmp=0375) Effective 09/15/2015: Units/Reference Range ChangeNew: 0.5-2.2 mmol/L Previous: 5 -20 mg/dLSpecimen moderately ictericPROTHROMBIN [id number] 08:54:00 Test Item Value Reference Range Comments PROTIME (BEAKER) (test sjxc=560) 29.7 seconds 11.7-14.7 INR (BEAKER) (test lmkl=512) 2.8 <=5.9 RECOMMENDED COUMADIN/WARFARIN INR THERAPY RANGESSTANDARD DOSE: 2.0 - 3.0 Includes: PROPHYLAXIS forvenous thrombosis, systemic embolization; TREATMENT for venous thrombosis and/or pulmonary embolus.HIGH RISK: Target INR is 2.5-3.5 for patients with mechanical heart valves.[id number] 08:54:00 Test Item Value Reference Range Comments FIBRINOGEN LEVEL (BEAKER) (test bwfv=151) 230 mg/dl 225-434 CALCIUM, [id number] 08:20:00 Test Item Value Reference Range Comments CALCIUM IONIZED (BEAKER) (test jjxn=631) 1.12 mmol/L 1.12-1.27 PH, BLOOD (BEAKER) (test tpie=9446) 7.42 POCT-GLUCOSE [id number] 08:14:00 Test Item Value Reference Range Comments POC-GLUCOSE METER (BEAKER) 155 mg/dL 70-[address] [facility] [address] [facility] (test pwoi=9263) [facility] [address] CBC W/PLT COUNT & AUTO [id number] 07:11:00 Test Item Value Reference Range Comments WHITE BLOOD CELL COUNT (BEAKER) (test yhrt=884) 6.5 K/ L 3.5-10.5 RED BLOOD CELL COUNT (BEAKER) (test dbaf=340) 2.64 M/ L 4.63-6.08 HEMOGLOBIN (BEAKER) (test ptrv=581) 8.1 GM/DL 13.7-17.5 HEMATOCRIT (BEAKER) (test kgbj=299) 24.8 % 40.1-51.0 MEAN CORPUSCULAR VOLUME (BEAKER) (test rpyi=128) 93.9 fL 79.0-92.2 MEAN CORPUSCULAR HEMOGLOBIN (BEAKER) (test 30.7 pg 25.7-32.2 uncq=459) MEAN CORPUSCULAR HEMOGLOBIN CONC (BEAKER) (test 32.7 GM/DL 32.3-36.5 woac=177) RED CELL DISTRIBUTION WIDTH (BEAKER) (test 19.8 % 11.6-14.4 uvet=680) PLATELET COUNT (BEAKER) (test efgv=624) 59 K/CU MM 150-450 MEAN PLATELET VOLUME (BEAKER) (test krgj=759) 10.4 fL 9.4-12.4 NUCLEATED RED BLOOD CELLS (BEAKER) (test 2 /100 WBC 0-0 wcfx=640) (CELLAVISION MANUAL DIFF)2018-01-27 07:11:00 Test Item Value Reference Range Comments NEUTROPHILS - REL (CELLAVISION)(BEAKER) (test 87 % xony=6584) LYMPHOCYTES - REL (CELLAVISION)(BEAKER) (test 5 % fbvb=7066) MONOCYTES - REL (CELLAVISION)(BEAKER) (test 3 % jkug=8994) BANDS - REL (CELLAVISION)(BEAKER) (test 5 % 0-10 hflc=7925) NEUTROPHILS - ABS (CELLAVISION)(BEAKER) (test 5.66 K/ul 1.78-5.38 skyz=8114) LYMPHOCYTES - ABS (CELLAVISION)(BEAKER) (test 0.33 K/ul 1.32-3.57 bwxq=7338) MONOCYTES - ABS (CELLAVISION)(BEAKER) (test 0.20 K/uL 0.30-0.82 focf=5351) BANDS - ABS (CELLAVISION)(BEAKER) (test 0.33 K/uL 0.00-0.80 mlag=7930) TOTAL COUNTED (BEAKER) (test axke=4268) 100 MANUAL NRBC PER 100 CELLS (BEAKER) (test 2 /100 WBC 0-0 jrlj=2710) RBC MORPHOLOGY (BEAKER) (test oafz=703) Normal PLT MORPHOLOGY (BEAKER) (test caku=450) Normal SMUDGE CELLS (BEAKER) (test ojyg=7929) Present ARTIFACT (CELLAVISION)(BEAKER) (test fcmw=1920) Present PLATELET CONCENTRATION (CELLAVISION)(BEAKER) Decreased (test vrri=3969) Received comment: User comments: Slide comments:CBC W/PLT COUNT & AUTO [id number] 07:10:00 Test Item Value Reference Range Comments WHITE BLOOD CELL COUNT (BEAKER) (test ajav=594) 6.8 K/ L 3.5-10.5 RED BLOOD CELL COUNT (BEAKER) (test mlyd=930) 2.65 M/ L 4.63-6.08 HEMOGLOBIN (BEAKER) (test bbgo=001) 8.1 GM/DL 13.7-17.5 HEMATOCRIT (BEAKER) (test lvbz=179) 25.2 % 40.1-51.0 MEAN CORPUSCULAR VOLUME (BEAKER) (test rwsb=966) 95.1 fL 79.0-92.2 MEAN CORPUSCULAR HEMOGLOBIN (BEAKER) (test 30.6 pg 25.7-32.2 evqm=852) MEAN CORPUSCULAR HEMOGLOBIN CONC (BEAKER) (test 32.1 GM/DL 32.3-36.5 cwqr=346) RED CELL DISTRIBUTION WIDTH (BEAKER) (test 19.5 % 11.6-14.4 rffe=248) PLATELET COUNT (BEAKER) (test ivps=969) 63 K/CU MM 150-450 MEAN PLATELET VOLUME (BEAKER) (test sioc=468) 10.3 fL 9.4-12.4 NUCLEATED RED BLOOD CELLS (BEAKER) (test 2 /100 WBC 0-0 sjel=642) NEUTROPHILS RELATIVE PERCENT (BEAKER) (test 82 % odax=548) LYMPHOCYTES RELATIVE PERCENT (BEAKER) (test 7 % wuii=778) MONOCYTES RELATIVE PERCENT (BEAKER) (test 10 % nsux=965) EOSINOPHILS RELATIVE PERCENT (BEAKER) (test 0 % ybpl=982) BASOPHILS RELATIVE PERCENT (BEAKER) (test 0 % tcfs=922) NEUTROPHILS ABSOLUTE COUNT (BEAKER) (test 5.60 K/ L 1.78-5.38 sygq=610) LYMPHOCYTES ABSOLUTE COUNT (BEAKER) (test 0.47 K/ L 1.32-3.57 ewfg=396) MONOCYTES ABSOLUTE COUNT (BEAKER) (test mgdp=919) 0.67 K/ L 0.30-0.82 EOSINOPHILS ABSOLUTE COUNT (BEAKER) (test 0.01 K/ L 0.04-0.54 rbkf=965) BASOPHILS ABSOLUTE COUNT (BEAKER) (test zfxy=647) 0.01 K/ L 0.01-0.08 IMMATURE GRANULOCYTES-RELATIVE PERCENT (BEAKER) 1 % 0-1 (test fqot=9076) COMPREHENSIVE METABOLIC [id number] 04:09:00 Test Item Value Reference Range Comments TOTAL PROTEIN (BEAKER) 5.2 gm/dL 6.0-8.3 (test bkje=847) ALBUMIN (BEAKER) (test 2.7 g/dL 3.5-5.0 wuan=1787) ALKALINE PHOSPHATASE 613 U/L 40-150 (BEAKER) (test ofni=439) BILIRUBIN TOTAL (BEAKER) 10.4 mg/dL 0.2-1.2 (test vucw=953) SODIUM (BEAKER) (test 138 meq/L 136-145 cglu=341) POTASSIUM (BEAKER) (test 4.4 meq/L 3.5-5.1 ovre=091) CHLORIDE (BEAKER) (test 103 meq/L 98-107 gklq=463) CO2 (BEAKER) (test 25 meq/L 22-29 yxxw=702) BLOOD UREA NITROGEN 15 mg/dL 7-21 (BEAKER) (test shez=540) CREATININE (BEAKER) (test 2.91 mg/dL 0.57-1.25 mcwq=797) GLUCOSE RANDOM (BEAKER) 133 mg/dL 70-105 (test qwit=163) CALCIUM (BEAKER) (test 9.0 mg/dL 8.4-10.2 heiw=222) AST (SGOT) (BEAKER) (test > U/L 5-34 puod=944) ALT (SGPT) (BEAKER) (test 1289 U/L 6-55 hykr=907) EGFR (BEAKER) (test 23 mL/min/1.73 sq m ESTIMATED GFR IS NOT mzqt=5585) ACCURATE CREATININE CLEARANCE IN PREDICTING GLOMERULAR FILTRATION RATE. ESTIMATED GFR IS NOT APPLICABLE FOR DIALYSIS PATIENTS. Specimen moderately ictericPROTHROMBIN TIME/[id number] 04:03:00 Test Item Value Reference Range Comments PROTIME (BEAKER) (test abgt=238) 30.3 seconds 11.7-14.7 INR (BEAKER) (test lscx=996) 2.9 <=5.9 RECOMMENDED COUMADIN/WARFARIN INR THERAPY RANGESSTANDARD DOSE: 2.0 - 3.0 Includes: PROPHYLAXIS forvenous thrombosis, systemic embolization; TREATMENT for venous thrombosis and/or pulmonary embolus.HIGH RISK: Target INR is 2.5-3.5 for patients with mechanical heart valves.[id number] 04:03:00 Test Item Value Reference Range Comments FIBRINOGEN LEVEL (BEAKER) (test bmcq=536) 254 mg/dl 225-434 BLOOD GAS, [id number] 04:02:00 Test Item Value Reference Range Comments PH ARTERIAL (BEAKER) (test bkgj=089) 7.39 7.35-7.45 PCO2 ARTERIAL (BEAKER) (test qqbc=193) 45 mmHg 35-45 PO2 ARTERIAL (BEAKER) (test aikr=512) 126 mmHg 80-90 O2 SATURATION ARTERIAL (BEAKER) (test ebzg=865) 98.4 % 96.0-97.0 HCO3 ARTERIAL (BEAKER) (test izhr=973) 27 mmol/L 21-29 BASE EXCESS ARTERIAL (BEAKER) (test haja=298) 1.6 mmol/L -2.0-3.0 PATIENT TEMPERATURE (BEAKER) (test qfys=5588) 37.5 C FIO2 (BEAKER) (test sted=5643) 40.0 % LACTIC ACID, ARTERIAL, WHOLE [id number] 04:02:00 Test Item Value Reference Range Comments LACTATE BLOOD ARTERIAL (2) (BEAKER) (test 4.9 mmol/L 0.5-2.2 ihma=0884) Effective 09/15/2015: Units/Reference Range ChangeNew: 0.5-2.2 mmol/L Previous: 5 -20 mg/dLSpecimen moderately ictericBASIC METABOLIC [id number] 00:40:00 Test Item Value Reference Range Comments SODIUM (BEAKER) (test 135 meq/L 136-145 abya=583) POTASSIUM (BEAKER) (test 4.5 meq/L 3.5-5.1 nedh=852) CHLORIDE (BEAKER) (test 102 meq/L 98-107 wbpz=032) CO2 (BEAKER) (test 25 meq/L 22-29 bpsf=645) BLOOD UREA NITROGEN 14 mg/dL 7-21 (BEAKER) (test xqby=891) CREATININE (BEAKER) (test 2.87 mg/dL 0.57-1.25 wbhi=221) GLUCOSE RANDOM (BEAKER) 117 mg/dL 70-105 (test cfsp=467) CALCIUM (BEAKER) (test 8.3 mg/dL 8.4-10.2 hmlj=504) EGFR (BEAKER) (test 23 mL/min/1.73 sq m ESTIMATED GFR IS NOT hzjc=1504) ACCURATE CREATININE CLEARANCE IN PREDICTING GLOMERULAR FILTRATION RATE. ESTIMATED GFR IS NOT APPLICABLE FOR DIALYSIS PATIENTS. Specimen moderately ictericLACTIC ACID, ARTERIAL, WHOLE [id number] 00:30:00 Test Item Value Reference Range Comments LACTATE BLOOD ARTERIAL (2) (BEAKER) (test 3.4 mmol/L 0.5-2.2 nklv=3257) Effective 09/15/2015: Units/Reference Range ChangeNew: 0.5-2.2 mmol/L Previous: 5 -20 mg/dLSpecimen moderately ictericCALCIUM, [id number] 00:15:00 Test Item Value Reference Range Comments CALCIUM IONIZED (BEAKER) (test zbvr=417) 1.06 mmol/L 1.12-1.27 PH, BLOOD (BEAKER) (test qisa=3343) 7.47 POCT-GLUCOSE [id number] 00:04:00 Test Item Value Reference Range Comments POC-GLUCOSE METER (BEAKER) 111 mg/dL 70-[address] [facility] [address] [facility] (test rxrf=8861) [place] [address] PROTHROMBIN [id number] 00:03:00 Test Item Value Reference Range Comments PROTIME (BEAKER) (test ldyv=727) 30.6 seconds 11.7-14.7 INR (BEAKER) (test gmgu=888) 2.9 <=5.9 RECOMMENDED COUMADIN/WARFARIN INR THERAPY RANGESSTANDARD DOSE: 2.0 - 3.0 Includes: PROPHYLAXIS forvenous thrombosis, systemic embolization; TREATMENT for venous thrombosis and/or pulmonary embolus.HIGH RISK: Target INR is 2.5-3.5 for patients with mechanical heart valves.[id number] 00:03:00 Test Item Value Reference Range Comments FIBRINOGEN LEVEL (BEAKER) (test gdiw=115) 244 mg/dl 225-434 POCT-GLUCOSE [id number] 22:08:00 Test Item Value Reference Range Comments POC-GLUCOSE METER (BEAKER) 107 mg/dL 70-[address] [facility] [address] [facility] (test laju=0015) [facility] [address] [id number] 20:38:00 Test Item Value Reference Range Comments FIBRINOGEN LEVEL (BEAKER) (test gsny=494) 237 mg/dl 225-434 LACTIC ACID, ARTERIAL, WHOLE [id number] 20:37:00 Test Item Value Reference Range Comments LACTATE BLOOD ARTERIAL (2) (BEAKER) (test 3.8 mmol/L 0.5-2.2 obku=6570) Effective 09/15/2015: Units/Reference Range ChangeNew: 0.5-2.2 mmol/L Previous: 5 -20 mg/dLSpecimen moderately ictericPROTHROMBIN [id number] 20:37:00 Test Item Value Reference Range Comments PROTIME (BEAKER) (test bnfd=554) 29.4 seconds 11.7-14.7 INR (BEAKER) (test llhs=516) 2.8 <=5.9 RECOMMENDED COUMADIN/WARFARIN INR THERAPY RANGESSTANDARD DOSE: 2.0 - 3.0 Includes: PROPHYLAXIS forvenous thrombosis, systemic embolization; TREATMENT for venous thrombosis and/or pulmonary embolus.HIGH RISK: Target INR is 2.5-3.5 for patients with mechanical heart valves.[id number] 20:37:00 Test Item Value Reference Range Comments PHOSPHORUS (BEAKER) (test frqp=606) 4.4 mg/dL 2.3-4.7 [id number] 20:37:00 Test Item Value Reference Range Comments MAGNESIUM (BEAKER) (test wvps=698) 1.6 mg/dL 1.6-2.6 PH, [id number] 20:36:00 Test Item Value Reference Range Comments PH ARTERIAL (BEAKER) (test iobs=808) 7.44 7.35-7.45 POCT-GLUCOSE [id number] 18:16:00 Test Item Value Reference Range Comments POC-GLUCOSE METER (BEAKER) 94 mg/dL 70-[address] [facility] [address] (test rzln=3835) [place] [address] CBC W/PLT COUNT & AUTO [id number] 17:53:00 Test Item Value Reference Range Comments WHITE BLOOD CELL COUNT (BEAKER) (test dgov=215) 7.4 K/ L 3.5-10.5 RED BLOOD CELL COUNT (BEAKER) (test lpkg=920) 2.65 M/ L 4.63-6.08 HEMOGLOBIN (BEAKER) (test exkc=236) 8.1 GM/DL 13.7-17.5 HEMATOCRIT (BEAKER) (test spai=487) 25.2 % 40.1-51.0 MEAN CORPUSCULAR VOLUME (BEAKER) (test bicy=591) 95.1 fL 79.0-92.2 MEAN CORPUSCULAR HEMOGLOBIN (BEAKER) (test 30.6 pg 25.7-32.2 qvps=912) MEAN CORPUSCULAR HEMOGLOBIN CONC (BEAKER) (test 32.1 GM/DL 32.3-36.5 jtkj=505) RED CELL DISTRIBUTION WIDTH (BEAKER) (test 19.9 % 11.6-14.4 svgu=088) PLATELET COUNT (BEAKER) (test rirq=394) 65 K/CU MM 150-450 MEAN PLATELET VOLUME (BEAKER) (test ciho=783) 10.6 fL 9.4-12.4 NUCLEATED RED BLOOD CELLS (BEAKER) (test 2 /100 WBC 0-0 dhzk=857) NEUTROPHILS RELATIVE PERCENT (BEAKER) (test 86 % jhuh=570) LYMPHOCYTES RELATIVE PERCENT (BEAKER) (test 5 % wmhx=223) MONOCYTES RELATIVE PERCENT (BEAKER) (test 8 % gbwy=322) EOSINOPHILS RELATIVE PERCENT (BEAKER) (test 0 % vonw=675) BASOPHILS RELATIVE PERCENT (BEAKER) (test 0 % mjkl=660) NEUTROPHILS ABSOLUTE COUNT (BEAKER) (test 6.31 K/ L 1.78-5.38 bnkv=992) LYMPHOCYTES ABSOLUTE COUNT (BEAKER) (test 0.39 K/ L 1.32-3.57 zgqp=538) MONOCYTES ABSOLUTE COUNT (BEAKER) (test nsfh=671) 0.56 K/ L 0.30-0.82 EOSINOPHILS ABSOLUTE COUNT (BEAKER) (test 0.00 K/ L 0.04-0.54 ogrr=757) BASOPHILS ABSOLUTE COUNT (BEAKER) (test mdxp=740) 0.01 K/ L 0.01-0.08 IMMATURE GRANULOCYTES-RELATIVE PERCENT (BEAKER) 2 % 0-1 (test kcqc=6915) BASIC METABOLIC [id number] 16:45:00 Test Item Value Reference Range Comments SODIUM (BEAKER) (test 138 meq/L 136-145 qcqr=016) POTASSIUM (BEAKER) (test 4.5 meq/L 3.5-5.1 skhl=945) CHLORIDE (BEAKER) (test 103 meq/L 98-107 yxug=319) CO2 (BEAKER) (test 26 meq/L 22-29 tdfc=545) BLOOD UREA NITROGEN 13 mg/dL 7-21 (BEAKER) (test aird=412) CREATININE (BEAKER) (test 2.97 mg/dL 0.57-1.25 pbrg=769) GLUCOSE RANDOM (BEAKER) 95 mg/dL 70-105 (test qohf=424) CALCIUM (BEAKER) (test 8.7 mg/dL 8.4-10.2 wapu=136) EGFR (BEAKER) (test 22 mL/min/1.73 sq m ESTIMATED GFR IS NOT ecek=4889) ACCURATE CREATININE CLEARANCE IN PREDICTING GLOMERULAR FILTRATION RATE. ESTIMATED GFR IS NOT APPLICABLE FOR DIALYSIS PATIENTS. Specimen moderately ictericLACTIC ACID, ARTERIAL, WHOLE [id number] 16:40:00 Test Item Value Reference Range Comments LACTATE BLOOD ARTERIAL (2) (BEAKER) (test 4.5 mmol/L 0.5-2.2 omlg=9050) Effective 09/15/2015: Units/Reference Range ChangeNew: 0.5-2.2 mmol/L Previous: 5 -20 mg/dLSpecimen moderately ictericCALCIUM, [id number] 16:29:00 Test Item Value Reference Range Comments CALCIUM IONIZED (BEAKER) (test hzem=846) 1.10 mmol/L 1.12-1.27 PH, BLOOD (BEAKER) (test bmlx=5396) 7.42 PROTHROMBIN [id number] 16:27:00 Test Item Value Reference Range Comments PROTIME (BEAKER) (test dtoe=733) 30.0 seconds 11.7-14.7 INR (BEAKER) (test uzaz=499) 2.9 <=5.9 RECOMMENDED COUMADIN/WARFARIN INR THERAPY RANGESSTANDARD DOSE: 2.0 - 3.0 Includes: PROPHYLAXIS forvenous thrombosis, systemic embolization; TREATMENT for venous thrombosis and/or pulmonary embolus.HIGH RISK: Target INR is 2.5-3.5 for patients with mechanical heart valves.[id number] 16:27:00 Test Item Value Reference Range Comments FIBRINOGEN LEVEL (BEMANDO) (test qlqr=471) 237 mg/dl 225-434 CT BRAIN WITHOUT IV CONTRAST - [id number] 15:28:00Reason for exam:-> low platelets new pupillary [...] Verified Date/Time: 01/26/2018 15: 28:44 Reading Location: [facility] C013V Neuro Reading Room POCT-GLUCOSE [id number] 12:15:00 Test Item Value Reference Range Comments POC-GLUCOSE METER (FRANCISCO) 78 mg/dL 70-[address] [facility] [address] [facility] (test nsff=4815) [facility] [address] CBC W/PLT COUNT & AUTO [id number] 12:12:00 Test Item Value Reference Range Comments WHITE BLOOD CELL COUNT (FRANCISCO) (test ymfn=418) 6.7 K/ L 3.5-10.5 RED BLOOD CELL COUNT (BEAKER) (test uugn=146) 2.70 M/ L 4.63-6.08 HEMOGLOBIN (BEAKER) (test rlek=585) 8.3 GM/DL 13.7-17.5 HEMATOCRIT (BEAKER) (test yxja=190) 25.5 % 40.1-51.0 MEAN CORPUSCULAR VOLUME (BEAKER) (test qdjr=494) 94.4 fL 79.0-92.2 MEAN CORPUSCULAR HEMOGLOBIN (BEAKER) (test 30.7 pg 25.7-32.2 swyp=231) MEAN CORPUSCULAR HEMOGLOBIN CONC (BEAKER) (test 32.5 GM/DL 32.3-36.5 vtsv=114) RED CELL DISTRIBUTION WIDTH (BEAKER) (test 20.0 % 11.6-14.4 pycx=530) PLATELET COUNT (BEAKER) (test pukc=935) 60 K/CU MM 150-450 MEAN PLATELET VOLUME (BEAKER) (test bsua=635) 10.6 fL 9.4-12.4 NUCLEATED RED BLOOD CELLS (BEAKER) (test 1 /100 WBC 0-0 jcao=686) [id number] 12:05:00 Test Item Value Reference Range Comments FIBRINOGEN LEVEL (BEAKER) (test ijsj=620) 268 mg/dl 225-434 PROTHROMBIN [id number] 12:05:00 Test Item Value Reference Range Comments PROTIME (BEAKER) (test whqc=221) 27.1 seconds 11.7-14.7 INR (BEAKER) (test iyps=174) 2.5 <=5.9 RECOMMENDED COUMADIN/WARFARIN INR THERAPY RANGESSTANDARD DOSE: 2.0 - 3.0 Includes: PROPHYLAXIS forvenous thrombosis, systemic embolization; TREATMENT for venous thrombosis and/or pulmonary embolus.HIGH RISK: Target INR is 2.5-3.5 for patients with mechanical heart valves.LACTIC ACID, ARTERIAL, WHOLE [id number] 11:55:00 Test Item Value Reference Range Comments LACTATE BLOOD ARTERIAL (2) (BEAKER) (test 5.1 mmol/L 0.5-2.2 ktmf=0375) Effective 09/15/2015: Units/Reference Range ChangeNew: 0.5-2.2 mmol/L Previous: 5 -20 mg/dLSpecimen moderately [id number] 10:33:00 Test Item Value Reference Range Comments AMMONIA (BEAKER) (test wpmx=962) 146 mol/L 18-72 CBC W/PLT COUNT & AUTO [id number] 09:21:00 Test Item Value Reference Range Comments WHITE BLOOD CELL COUNT (BEAKER) (test cnhs=154) 6.5 K/ L 3.5-10.5 RED BLOOD CELL COUNT (BEAKER) (test qriv=160) 2.65 M/ L 4.63-6.08 HEMOGLOBIN (BEAKER) (test wmaa=934) 8.1 GM/DL 13.7-17.5 HEMATOCRIT (BEAKER) (test cgwp=656) 24.9 % 40.1-51.0 MEAN CORPUSCULAR VOLUME (BEAKER) (test weae=222) 94.0 fL 79.0-92.2 MEAN CORPUSCULAR HEMOGLOBIN (BEAKER) (test 30.6 pg 25.7-32.2 mkvq=025) MEAN CORPUSCULAR HEMOGLOBIN CONC (BEAKER) (test 32.5 GM/DL 32.3-36.5 hqfb=051) RED CELL DISTRIBUTION WIDTH (BEAKER) (test 19.9 % 11.6-14.4 thoo=402) PLATELET COUNT (BEAKER) (test ttuy=433) 68 K/CU MM 150-450 MEAN PLATELET VOLUME (BEAKER) (test wvpm=147) 10.5 fL 9.4-12.4 NUCLEATED RED BLOOD CELLS (BEAKER) (test 1 /100 WBC 0-0 wixz=749) (CELLAVISION MANUAL DIFF)2018-01-26 09:21:00 Test Item Value Reference Range Comments NEUTROPHILS - REL (CELLAVISION)(BEAKER) (test 75 % tlls=1087) LYMPHOCYTES - REL (CELLAVISION)(BEAKER) (test 3 % ebev=2072) MONOCYTES - REL (CELLAVISION)(BEAKER) (test 2 % zwbr=0902) BANDS - REL (CELLAVISION)(BEAKER) (test 20 % 0-10 tvyr=9485) NEUTROPHILS - ABS (CELLAVISION)(BEAKER) (test 4.88 K/ul 1.78-5.38 nnxj=5315) LYMPHOCYTES - ABS (CELLAVISION)(BEAKER) (test 0.20 K/ul 1.32-3.57 agkm=6014) MONOCYTES - ABS (CELLAVISION)(BEAKER) (test 0.13 K/uL 0.30-0.82 rsac=6940) BANDS - ABS (CELLAVISION)(BEAKER) (test 1.30 K/uL 0.00-0.80 qsfi=4662) TOTAL COUNTED (BEAKER) (test tbto=0791) 100 MANUAL NRBC PER 100 CELLS (BEAKER) (test 1 /100 WBC 0-0 klkn=1573) WBC MORPHOLOGY (BEAKER) (test fulo=409) Normal PLT MORPHOLOGY (BEAKER) (test xemh=126) Normal POLYCHROMATOPHILLIC RBCS(BEAKER) (test oksz=676) 1+ few ANISOCYTOSIS (BEAKER) (test lqou=246) 1+ few POIKILOCYTES (BEAKER) (test kxzu=001) 1+ few ARTIFACT (CELLAVISION)(BEAKER) (test wryo=3247) Present PLATELET CONCENTRATION (CELLAVISION)(BEAKER) Decreased (test mion=0477) Received comment: User comments: Slide comments:BASIC METABOLIC [id number] 09:09:00 Test Item Value Reference Range Comments SODIUM (BEAKER) (test 142 meq/L 136-145 syso=344) POTASSIUM (BEAKER) (test 4.6 meq/L 3.5-5.1 jllc=144) CHLORIDE (BEAKER) (test 104 meq/L 98-107 gwjp=955) CO2 (BEAKER) (test 28 meq/L 22-29 imrt=463) BLOOD UREA NITROGEN 14 mg/dL 7-21 (BEAKER) (test hmvz=773) CREATININE (BEAKER) (test 3.12 mg/dL 0.57-1.25 kfxf=566) GLUCOSE RANDOM (BEAKER) 80 mg/dL 70-105 (test wktq=854) CALCIUM (BEAKER) (test 9.0 mg/dL 8.4-10.2 ohpn=869) EGFR (BEAKER) (test 21 mL/min/1.73 sq m ESTIMATED GFR IS NOT xnmj=7455) ACCURATE CREATININE CLEARANCE IN PREDICTING GLOMERULAR FILTRATION RATE. ESTIMATED GFR IS NOT APPLICABLE FOR DIALYSIS PATIENTS. Specimen moderately [id number] 09:04:00 Test Item Value Reference Range Comments PHOSPHORUS (BEAKER) (test wqaz=787) 4.4 mg/dL 2.3-4.7 [id number] 09:04:00 Test Item Value Reference Range Comments MAGNESIUM (BEAKER) (test mckq=942) 1.4 mg/dL 1.6-2.6 [id number] 09:03:00 Test Item Value Reference Range Comments FIBRINOGEN LEVEL (BEAKER) (test puik=497) 254 mg/dl 225-434 PROTHROMBIN [id number] 09:01:00 Test Item Value Reference Range Comments PROTIME (BEAKER) (test evgc=060) 26.1 seconds 11.7-14.7 INR (BEAKER) (test zbjn=671) 2.4 <=5.9 RECOMMENDED COUMADIN/WARFARIN INR THERAPY RANGESSTANDARD DOSE: 2.0 - 3.0 Includes: PROPHYLAXIS forvenous thrombosis, systemic embolization; TREATMENT for venous thrombosis and/or pulmonary embolus.HIGH RISK: Target INR is 2.5-3.5 for patients with mechanical heart valves.PH, [id number] 08:23:00 Test Item Value Reference Range Comments PH ARTERIAL (BEAKER) (test jyrr=750) 7.45 7.35-7.45 CALCIUM, [id number] 08:22:00 Test Item Value Reference Range Comments CALCIUM IONIZED (BEAKER) (test gpxp=295) 1.12 mmol/L 1.12-1.27 PH, BLOOD (BEAKER) (test ikbc=4462) 7.45 SPUTUM CULTURE + GRAM [id number] 07:53:00 Test Item Value Reference Range Comments CULTURE (BEAKER) (test <1+ Normal respiratory kody ccgg=8379) present GRAM STAIN RESULT (BEAKER) 1+ WBCs (test aads=1518) GRAM STAIN RESULT (BEAKER) 0-5 epithelial cells (test meng=67937) GRAM STAIN RESULT (BEAKER) <1+ gram positive cocci in pairs (test lfoe=87303) GRAM STAIN RESULT (BEAKER) <1+ gram negative rods (test auui=289662) COMPREHENSIVE METABOLIC [id number] 06:47:00 Test Item Value Reference Range Comments TOTAL PROTEIN (BEAKER) 5.3 gm/dL 6.0-8.3 (test vbjz=962) ALBUMIN (BEAKER) (test 2.8 g/dL 3.5-5.0 jhfo=9963) ALKALINE PHOSPHATASE 654 U/L 40-150 (BEAKER) (test bmkb=216) BILIRUBIN TOTAL (BEAKER) 8.0 mg/dL 0.2-1.2 (test tpsb=117) SODIUM (BEAKER) (test 141 meq/L 136-145 ixex=794) POTASSIUM (BEAKER) (test 4.6 meq/L 3.5-5.1 texo=277) CHLORIDE (BEAKER) (test 104 meq/L 98-107 tznm=372) CO2 (BEAKER) (test 28 meq/L 22-29 qyvs=410) BLOOD UREA NITROGEN 16 mg/dL 7-21 (BEAKER) (test ytrk=827) CREATININE (BEAKER) (test 3.36 mg/dL 0.57-1.25 nmry=957) GLUCOSE RANDOM (BEAKER) 79 mg/dL 70-105 (test palk=387) CALCIUM (BEAKER) (test 9.1 mg/dL 8.4-10.2 oskn=415) AST (SGOT) (BEAKER) (test U/L 5-34 YTQ=0189 igas=506) ALT (SGPT) (BEAKER) (test 1479 U/L 6-55 japm=534) EGFR (BEAKER) (test 19 mL/min/1.73 sq m ESTIMATED GFR IS NOT wceo=8841) ACCURATE CREATININE CLEARANCE IN PREDICTING GLOMERULAR FILTRATION RATE. ESTIMATED GFR IS NOT APPLICABLE FOR DIALYSIS PATIENTS. Specimen moderately ictericBLOOD GAS, [id number] 05:11:00 Test Item Value Reference Range Comments PH ARTERIAL (BEAKER) (test fvfl=371) 7.47 7.35-7.45 PCO2 ARTERIAL (BEAKER) (test fcbm=726) 35 mmHg 35-45 PO2 ARTERIAL (BEAKER) (test zuuq=512) 148 mmHg 80-90 O2 SATURATION ARTERIAL (BEAKER) (test hous=095) 99.1 % 96.0-97.0 HCO3 ARTERIAL (BEAKER) (test bqop=770) 25 mmol/L 21-29 BASE EXCESS ARTERIAL (BEAKER) (test ofes=020) 0.8 mmol/L -2.0-3.0 PATIENT TEMPERATURE (BEAKER) (test ikjy=7279) 36.5 C FIO2 (BEAKER) (test lcer=7696) 60.0 % PROTHROMBIN [id number] 04:46:00 Test Item Value Reference Range Comments PROTIME (BEAKER) (test hyns=780) 23.8 seconds 11.7-14.7 INR (BEAKER) (test jadn=668) 2.1 <=5.9 RECOMMENDED COUMADIN/WARFARIN INR THERAPY RANGESSTANDARD DOSE: 2.0 - 3.0 Includes: PROPHYLAXIS forvenous thrombosis, systemic embolization; TREATMENT for venous thrombosis and/or pulmonary embolus.HIGH RISK: Target INR is 2.5-3.5 for patients with mechanical heart valves.[id number] 04:46:00 Test Item Value Reference Range Comments FIBRINOGEN LEVEL (BEAKER) (test vpgu=765) 269 mg/dl 225-434 LACTIC ACID, VENOUS, WHOLE [id number] 04:43:00 Test Item Value Reference Range Comments LACTATE BLOOD VENOUS (2) (BEAKER) (test 4.9 mmol/L 0.5-2.2 hilq=5493) Effective 09/15/2015: Units/Reference Range ChangeNew: 0.5-2.2 mmol/L Previous: 5 -20 mg/dLSpecimen moderately ictericRAD, CHEST, 1 VIEW, NON [id number] 03:59 :00Reason for exam:->intubatedShould this be performed at the bedside?-> YesFINAL REPORT CLINICAL INDICATION: Support lines. Comparison: 01/25/2018 The cardiomediastinal contours are stable. Central pulmonary vascular prominence and bilateral parenchymalopacities are unchanged. There is no pneumothorax. An endotracheal tube is stable in position. Signed: Gaurav Cunningham Verified Date/Time: 01/26/2018 03:59:13 Reading Location : [address] Reading Room CBC W/PLT COUNT & AUTO [id number] 00:47:00 Test Item Value Reference Range Comments WHITE BLOOD CELL COUNT (BEAKER) (test lglu=785) 6.1 K/ L 3.5-10.5 RED BLOOD CELL COUNT (BEAKER) (test kdog=654) 2.59 M/ L 4.63-6.08 HEMOGLOBIN (BEAKER) (test vkyz=200) 7.9 GM/DL 13.7-17.5 HEMATOCRIT (BEAKER) (test jvxr=876) 24.1 % 40.1-51.0 MEAN CORPUSCULAR VOLUME (BEAKER) (test hgtx=374) 93.1 fL 79.0-92.2 MEAN CORPUSCULAR HEMOGLOBIN (BEAKER) (test 30.5 pg 25.7-32.2 ophh=786) MEAN CORPUSCULAR HEMOGLOBIN CONC (BEAKER) (test 32.8 GM/DL 32.3-36.5 wicp=703) RED CELL DISTRIBUTION WIDTH (BEAKER) (test 19.9 % 11.6-14.4 xeql=270) PLATELET COUNT (BEAKER) (test acod=652) 35 K/CU MM 150-450 MEAN PLATELET VOLUME (BEAKER) (test gbdv=198) 11.0 fL 9.4-12.4 NUCLEATED RED BLOOD CELLS (BEAKER) (test 1 /100 WBC 0-0 nblp=055) (CELLAVISION MANUAL DIFF)2018-01-26 00:47:00 Test Item Value Reference Range Comments NEUTROPHILS - REL (CELLAVISION)(BEAKER) (test 73 % ziqt=8317) LYMPHOCYTES - REL (CELLAVISION)(BEAKER) (test 2 % tlte=7246) MONOCYTES - REL (CELLAVISION)(BEAKER) (test 2 % qwho=1426) BANDS - REL (CELLAVISION)(BEAKER) (test jmlw=0761) 23 % 0-10 NEUTROPHILS - ABS (CELLAVISION)(BEAKER) (test 4.45 K/ul 1.78-5.38 qsdq=3393) LYMPHOCYTES - ABS (CELLAVISION)(BEAKER) (test 0.12 K/ul 1.32-3.57 nfli=3786) MONOCYTES - ABS (CELLAVISION)(BEAKER) (test 0.12 K/uL 0.30-0.82 jwau=0087) BANDS - ABS (CELLAVISION)(BEAKER) (test axyr=0039) 1.40 K/uL 0.00-0.80 TOTAL COUNTED (BEAKER) (test vaui=1237) 100 RBC MORPHOLOGY (BEAKER) (test ejkc=420) Normal PLT MORPHOLOGY (BEAKER) (test ommc=642) Normal VACUOLATED NEUTROPHILS (BEAKER) (test ectb=900) Present ARTIFACT (CELLAVISION)(BEAKER) (test dppk=3093) Present PLATELET CONCENTRATION (CELLAVISION)(BEAKER) (test Decreased scss=9356) Received comment: User comments: Slide comments:[id number] 00:25:00 Test Item Value Reference Range Comments FIBRINOGEN LEVEL (BEAKER) (test dpff=998) 253 mg/dl 225-434 BASIC METABOLIC [id number] 00:21:00 Test Item Value Reference Range Comments SODIUM (BEAKER) (test 145 meq/L 136-145 kuaa=598) POTASSIUM (BEAKER) (test 4.6 meq/L 3.5-5.1 euvy=100) CHLORIDE (BEAKER) (test 105 meq/L 98-107 jobw=668) CO2 (BEAKER) (test 28 meq/L 22-29 tkxu=763) BLOOD UREA NITROGEN 17 mg/dL 7-21 (BEAKER) (test gfvy=939) CREATININE (BEAKER) (test 3.55 mg/dL 0.57-1.25 jwmq=820) GLUCOSE RANDOM (BEAKER) 76 mg/dL 70-105 (test flip=474) CALCIUM (BEAKER) (test 8.7 mg/dL 8.4-10.2 tdpv=126) EGFR (BEAKER) (test 18 mL/min/1.73 sq m ESTIMATED GFR IS NOT zrmn=4296) ACCURATE CREATININE CLEARANCE IN PREDICTING GLOMERULAR FILTRATION RATE. ESTIMATED GFR IS NOT APPLICABLE FOR DIALYSIS PATIENTS. Specimen moderately ictericPROTHROMBIN [id number] 00:20:00 Test Item Value Reference Range Comments PROTIME (BEAKER) (test uobn=640) 24.0 seconds 11.7-14.7 INR (BEAKER) (test nawo=719) 2.2 <=5.9 RECOMMENDED COUMADIN/WARFARIN INR THERAPY RANGESSTANDARD DOSE: 2.0 - 3.0 Includes: PROPHYLAXIS forvenous thrombosis, systemic embolization; TREATMENT for venous thrombosis and/or pulmonary embolus.HIGH RISK: Target INR is 2.5-3.5 for patients with mechanical heart valves.CALCIUM, [id number] 00:12:00 Test Item Value Reference Range Comments CALCIUM IONIZED (BEAKER) (test qbzc=450) 1.06 mmol/L 1.12-1.27 PH, BLOOD (BEAKER) (test ivae=2400) 7.45 [id number] 20:24:00 Test Item Value Reference Range Comments MAGNESIUM (BEAKER) (test zody=825) 0.9 mg/dL 1.6-2.6 [id number] 20:20:00 Test Item Value Reference Range Comments PHOSPHORUS (BEAKER) (test ftfi=390) 4.8 mg/dL 2.3-4.7 PROTHROMBIN [id number] 20:18:00 Test Item Value Reference Range Comments PROTIME (BEAKER) (test wovg=055) 26.6 seconds 11.7-14.7 INR (BEAKER) (test qywd=950) 2.5 <=5.9 RECOMMENDED COUMADIN/WARFARIN INR THERAPY RANGESSTANDARD DOSE: 2.0 - 3.0 Includes: PROPHYLAXIS forvenous thrombosis, systemic embolization; TREATMENT for venous thrombosis and/or pulmonary embolus.HIGH RISK: Target INR is 2.5-3.5 for patients with mechanical heart valves.[id number] 20:18:00 Test Item Value Reference Range Comments FIBRINOGEN LEVEL (BEAKER) (test exvu=198) 181 mg/dl 225-434 PH, [id number] 19:59:00 Test Item Value Reference Range Comments PH ARTERIAL (BEAKER) (test kqjn=999) 7.45 7.35-7.45 CBC W/PLT COUNT & AUTO [id number] 18:43:00 Test Item Value Reference Range Comments WHITE BLOOD CELL COUNT (BEAKER) (test cwdp=148) 6.1 K/ L 3.5-10.5 RED BLOOD CELL COUNT (BEAKER) (test khoi=057) 2.69 M/ L 4.63-6.08 HEMOGLOBIN (BEAKER) (test guwo=038) 8.3 GM/DL 13.7-17.5 HEMATOCRIT (BEAKER) (test sonw=786) 25.1 % 40.1-51.0 MEAN CORPUSCULAR VOLUME (BEAKER) (test qotk=185) 93.3 fL 79.0-92.2 MEAN CORPUSCULAR HEMOGLOBIN (BEAKER) (test 30.9 pg 25.7-32.2 izoq=744) MEAN CORPUSCULAR HEMOGLOBIN CONC (BEAKER) (test 33.1 GM/DL 32.3-36.5 jvoz=377) RED CELL DISTRIBUTION WIDTH (BEAKER) (test 19.9 % 11.6-14.4 ccvz=769) PLATELET COUNT (BEAKER) (test pyqn=714) 25 K/CU MM 150-450 MEAN PLATELET VOLUME (BEAKER) (test vvmg=823) 11.7 fL 9.4-12.4 NUCLEATED RED BLOOD CELLS (BEAKER) (test 0 /100 WBC 0-0 qwtm=927) NEUTROPHILS RELATIVE PERCENT (BEAKER) (test 79 % uula=193) LYMPHOCYTES RELATIVE PERCENT (BEAKER) (test 12 % nwzl=624) MONOCYTES RELATIVE PERCENT (BEAKER) (test 6 % crms=345) EOSINOPHILS RELATIVE PERCENT (BEAKER) (test 1 % hhws=835) BASOPHILS RELATIVE PERCENT (BEAKER) (test 0 % fyhh=824) NEUTROPHILS ABSOLUTE COUNT (BEAKER) (test 4.77 K/ L 1.78-5.38 ltdl=855) LYMPHOCYTES ABSOLUTE COUNT (BEAKER) (test 0.75 K/ L 1.32-3.57 sqwe=840) MONOCYTES ABSOLUTE COUNT (BEAKER) (test owde=138) 0.38 K/ L 0.30-0.82 EOSINOPHILS ABSOLUTE COUNT (BEAKER) (test 0.05 K/ L 0.04-0.54 pzql=909) BASOPHILS ABSOLUTE COUNT (BEAKER) (test nmvc=962) 0.02 K/ L 0.01-0.08 IMMATURE GRANULOCYTES-RELATIVE PERCENT (BEAKER) 1 % 0-1 (test jdyr=3350) BASIC METABOLIC [id number] 17:44:00 Test Item Value Reference Range Comments SODIUM (BEAKER) (test 151 meq/L 136-145 zquy=577) POTASSIUM (BEAKER) (test 4.5 meq/L 3.5-5.1 puhd=195) CHLORIDE (BEAKER) (test 107 meq/L 98-107 qghj=641) CO2 (BEAKER) (test 29 meq/L 22-29 jiim=765) BLOOD UREA NITROGEN 20 mg/dL 7-21 (BEAKER) (test hcoi=671) CREATININE (BEAKER) (test 4.38 mg/dL 0.57-1.25 lzkl=209) GLUCOSE RANDOM (BEAKER) 91 mg/dL 70-105 (test xaqd=346) CALCIUM (BEAKER) (test 7.5 mg/dL 8.4-10.2 aaux=490) EGFR (BEAKER) (test 14 mL/min/1.73 sq m ESTIMATED GFR IS NOT qhmq=4852) ACCURATE CREATININE CLEARANCE IN PREDICTING GLOMERULAR FILTRATION RATE. ESTIMATED GFR IS NOT APPLICABLE FOR DIALYSIS PATIENTS. Specimen moderately ictericPROTHROMBIN TIME/[id number] 17:34:00 Test Item Value Reference Range Comments PROTIME (BEAKER) (test ecbh=084) 26.6 seconds 11.7-14.7 INR (BEAKER) (test qkcy=927) 2.5 <=5.9 RECOMMENDED COUMADIN/WARFARIN INR THERAPY RANGESSTANDARD DOSE: 2.0 - 3.0 Includes: PROPHYLAXIS forvenous thrombosis, systemic embolization; TREATMENT for venous thrombosis and/or pulmonary embolus.HIGH RISK: Target INR is 2.5-3.5 for patients with mechanical heart valves.[id number] 17:34:00 Test Item Value Reference Range Comments FIBRINOGEN LEVEL (BEAKER) (test yked=585) 197 mg/dl 225-434 CALCIUM, [id number] 17:23:00 Test Item Value Reference Range Comments CALCIUM IONIZED (BEAKER) (test hdkj=743) 0.87 mmol/L 1.12-1.27 PH, BLOOD (BEAKER) (test kxyn=8686) 7.44 CBC W/PLT COUNT & AUTO [id number] 15:16:00 Test Item Value Reference Range Comments WHITE BLOOD CELL COUNT (BEAKER) (test inar=320) 6.1 K/ L 3.5-10.5 RED BLOOD CELL COUNT (BEAKER) (test zaju=396) 2.71 M/ L 4.63-6.08 HEMOGLOBIN (BEAKER) (test xjab=363) 8.3 GM/DL 13.7-17.5 HEMATOCRIT (BEAKER) (test xlcd=035) 25.4 % 40.1-51.0 MEAN CORPUSCULAR VOLUME (BEAKER) (test chxg=053) 93.7 fL 79.0-92.2 MEAN CORPUSCULAR HEMOGLOBIN (BEAKER) (test 30.6 pg 25.7-32.2 xezc=339) MEAN CORPUSCULAR HEMOGLOBIN CONC (BEAKER) (test 32.7 GM/DL 32.3-36.5 xwud=413) RED CELL DISTRIBUTION WIDTH (BEAKER) (test 19.7 % 11.6-14.4 uaun=426) PLATELET COUNT (BEAKER) (test yffx=691) 32 K/CU MM 150-450 MEAN PLATELET VOLUME (BEAKER) (test ptnu=444) 11.2 fL 9.4-12.4 NUCLEATED RED BLOOD CELLS (BEAKER) (test 0 /100 WBC 0-0 aumy=979) (CELLAVISION MANUAL DIFF)2018-01-25 15:16:00 Test Item Value Reference Range Comments NEUTROPHILS - REL (CELLAVISION)(BEAKER) (test 79 % xywo=4150) LYMPHOCYTES - REL (CELLAVISION)(BEAKER) (test 14 % zugj=3523) MONOCYTES - REL (CELLAVISION)(BEAKER) (test 1 % sxbh=0365) EOSINOPHILS - REL (CELLAVISION)(BEAKER) (test 1 % ermm=0996) BASOPHILS - REL (CELLAVISION)(BEAKER) (test 1 % kbic=3592) BANDS - REL (CELLAVISION)(BEAKER) (test 4 % 0-10 jjqq=7123) NEUTROPHILS - ABS (CELLAVISION)(BEAKER) (test 4.82 K/ul 1.78-5.38 hgqp=1534) LYMPHOCYTES - ABS (CELLAVISION)(BEAKER) (test 0.85 K/ul 1.32-3.57 ylim=5199) MONOCYTES - ABS (CELLAVISION)(BEAKER) (test 0.06 K/uL 0.30-0.82 ktig=7204) EOSINOPHILS - ABS (CELLAVISION)(BEAKER) (test 0.06 K/uL 0.04-0.54 owsn=5954) BASOPHILS - ABS (CELLAVISION)(BEAKER) (test 0.06 K/uL 0.01-0.08 antx=8874) BANDS - ABS (CELLAVISION)(BEAKER) (test 0.24 K/uL 0.00-0.80 jclp=0101) TOTAL COUNTED (BEAKER) (test exzb=6426) 100 MANUAL NRBC PER 100 CELLS (BEAKER) (test 1 /100 WBC 0-0 wvum=5765) WBC MORPHOLOGY (BEAKER) (test nddk=274) Normal GIANT PLATELETS (BEAKER) (test pnlv=350) Present ANISOCYTOSIS (BEAKER) (test sioy=962) 1+ few MICROCYTES (BEAKER) (test efee=397) 1+ few ELLIPTOCYTES (BEAKER) (test qqvp=819) 1+ few ARTIFACT (CELLAVISION)(BEAKER) (test tdne=4731) Present PLATELET CONCENTRATION (CELLAVISION)(BEAKER) Decreased (test hjir=4386) Received comment: User comments: Slide comments:JAZMINE [id number] 14:35: 00Reason for exam:->GI bleedFINAL REPORT Transjugular intrahepatic portosystemic shunt, 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 History: Cirrhosis, portal hypertension, GI bleed. Modality: Fluoroscopy. Sedation: General anesthesia was utilized. The vital signs were monitored throughout the procedure by anesthesia and remained stable. Clinical Lab Specialist: Rafael Shaw MD. French Weaver: MD Kristina. Approach: Right internal jugular vein [...] the needle into the right atrium.A 4 British micropuncture sheath was placed. A 0.035 inch J-wire was placed through the micropuncturesheath and the sheath was exchanged for a 9 British sheath. A 5 British angled tip catheter was used to select [...] exchanged for Amplatz superstiff wire. A 4 British marked catheter was placedinto the portal vein for a simultaneous portal and hepatic injection for a DSA run. The tract was measured at eight cm. The 9 British sheath was exchanged for a 12 British long sheath which was advancedover the Amplatz [...] portosystemic shunt with general anesthesia. Signed: Rafael Shawort Verified Date/Time: 01/25/2018 14:35:57 Reading Location: [facility] P048 Angio Body Reading Room Electronicallysigned by: RAFAEL SHAW on 01/25/2018 02:35 PMURINALYSIS W/ [id number] 14:20:00 Test Item Value Reference Range Comments COLOR (BEAKER) (test umkv=256) Dark Yellow CLARITY (BEAKER) (test jxuo=194) Cloudy SPECIFIC GRAVITY UA (BEAKER) (test ilhb=229) 1.046 1.001-1.035 PH UA (BEAKER) (test pysu=809) 5.5 5.0-8.0 PROTEIN UA (BEAKER) (test wpcw=259) 70 mg/dL Negative GLUCOSE UA (BEAKER) (test nhvf=024) Negative Negative KETONES UA (BEAKER) (test qhze=009) Trace Negative BILIRUBIN UA (BEAKER) (test rpyi=369) Positive Negative BLOOD UA (BEAKER) (test temd=232) Large Negative NITRITE UA (BEAKER) (test wrhn=551) Negative Negative LEUKOCYTE ESTERASE UA (BEAKER) (test fqbe=665) Negative Negative UROBILINOGEN UA (BEAKER) (test rrqg=810) 0.2 mg/dL 0.2-1.0 RBC UA (BEAKER) (test rqil=866) 3 /HPF WBC UA (BEAKER) (test lwzg=811) 26 /HPF MUCUS (BEAKER) (test fmvp=5171) Occasional SQUAMOUS EPITHELIAL (BEAKER) (test nnkc=658) 3 /HPF CRYSTALS, URINE (BEAKER) (test pknv=6335) Occasional YEAST (BEAKER) (test nwkl=7079) Few SOURCE(BEAKER) (test uibf=8654) Urine, Dawson THROMBOELASTOGRAPH (TEG)2018-01-25 14:10:00 Test Item Value Reference Range Comments TEG ACTIVATED CLOTTING TIME (BEAKER) (test 9.2 minutes 4.0-7.0 ncrx=0499) TEG FIBRINOGEN ACTIVITY (BEAKER) (test 59.6 degrees 61.0-73.0 kzlf=4342) TEG PLT. AGGREGATION (BEAKER) (test iezf=0989) 43.9 MM 55.0-65.0 TEG FIBRINOLYSIS (BEAKER) (test eweq=5510) 0.0 % 0.0-5.0 TGH ACTIVATED CLOTTING TIME (BEAKER) (test 8.2 minutes 4.0-7.0 rxvx=2814) TGH FIBRINOGEN ACTIVITY (BEAKER) (test 62.1 degrees 61.0-73.0 mqau=1448) TGH PLT. AGGREGATION (BEAKER) (test wewf=6785) 41.1 MM 55.0-65.0 TGH FIBRINOLYSIS (BEAKER) (test frpx=0710) 0.0 % 0.0-5.0 [id number] 13:32:00 Test Item Value Reference Range Comments CORTISOL, TOTAL (BEAKER) (test tbsu=6087) 6.3 ug/dL 3.7-19.4 RAD, CHEST, 1 VIEW, NON [id number] 13:10:00Reason for exam:->post trasfusion, low j7Jjmgyz this be performed at the bedside?->YesFINAL REPORT [...] is present. No pneumothorax is seen. Signed: Cary Walls MDReport Verified Date/Time: 01/25/2018 13:10:13 Reading Location : [address] Consult Reading Room BASI METABOLIC [id number] 12:22:00 Test Item Value Reference Range Comments SODIUM (BEAKER) (test 149 meq/L 136-145 dvrd=376) POTASSIUM (BEAKER) (test 5.0 meq/L 3.5-5.1 Specimen slightly hiak=974) hemolyzed CHLORIDE (BEAKER) (test 105 meq/L 98-107 cyfw=950) CO2 (BEAKER) (test 29 meq/L 22-29 bsol=550) BLOOD UREA NITROGEN 22 mg/dL 7-21 (BEAKER) (test awxy=557) CREATININE (BEAKER) (test 4.27 mg/dL 0.57-1.25 Specimen slightly stog=556) hemolyzed GLUCOSE RANDOM (BEAKER) 159 mg/dL 70-105 (test gubf=901) CALCIUM (BEAKER) (test 6.6 mg/dL 8.4-10.2 dkxq=349) EGFR (BEAKER) (test 15 mL/min/1.73 sq m ESTIMATED GFR IS NOT xznt=9857) ACCURATE CREATININE CLEARANCE IN PREDICTING GLOMERULAR FILTRATION RATE. ESTIMATED GFR IS NOT APPLICABLE FOR DIALYSIS PATIENTS. Specimen moderately [id number] 12:12:00 Test Item Value Reference Range Comments FIBRINOGEN LEVEL (BEAKER) (test fxbr=772) 143 mg/dl 225-434 PROTHROMBIN [id number] 12:02:00 Test Item Value Reference Range Comments PROTIME (BEAKER) (test hfeq=877) 29.9 seconds 11.7-14.7 INR (BEAKER) (test qexj=484) 2.9 <=5.9 RECOMMENDED COUMADIN/WARFARIN INR THERAPY RANGESSTANDARD DOSE: 2.0 - 3.0 Includes: PROPHYLAXIS forvenous thrombosis, systemic embolization; TREATMENT for venous thrombosis and/or pulmonary embolus.HIGH RISK: Target INR is 2.5-3.5 for patients with mechanical heart valves.BLOOD GAS, [id number] 11:42:00 Test Item Value Reference Range Comments PH ARTERIAL (BEAKER) (test erhv=695) 7.43 7.35-7.45 PCO2 ARTERIAL (BEAKER) (test jwky=920) 50 mmHg 35-45 PO2 ARTERIAL (BEAKER) (test qwgt=709) 71 mmHg 80-90 O2 SATURATION ARTERIAL (BEAKER) (test uhch=390) 94.0 % 96.0-97.0 HCO3 ARTERIAL (BEAKER) (test dmtt=663) 32 mmol/L 21-29 BASE EXCESS ARTERIAL (BEAKER) (test pewi=077) 6.7 mmol/L -2.0-3.0 PATIENT TEMPERATURE (BEAKER) (test xiql=4289) 37.5 C FIO2 (BEAKER) (test evzf=2843) 60.0 % BLOOD GAS, [id number] 09:41:00 Test Item Value Reference Range Comments PH ARTERIAL (BEAKER) (test frru=452) 7.50 7.35-7.45 PCO2 ARTERIAL (BEAKER) (test bsby=624) 38 mmHg 35-45 PO2 ARTERIAL (BEAKER) (test jzjv=256) 204 mmHg 80-90 O2 SATURATION ARTERIAL (BEAKER) (test rgwy=232) 99.5 % 96.0-97.0 HCO3 ARTERIAL (BEAKER) (test pbwc=275) 29 mmol/L 21-29 BASE EXCESS ARTERIAL (BEAKER) (test xjmx=612) 5.8 mmol/L -2.0-3.0 PATIENT TEMPERATURE (BEAKER) (test xdyx=4504) 37.0 C FIO2 (BEAKER) (test wupa=9274) 100.0 % CBC W/PLT COUNT & AUTO [id number] 08:39:00 Test Item Value Reference Range Comments WHITE BLOOD CELL COUNT (BEAKER) (test doec=865) 7.7 K/ L 3.5-10.5 RED BLOOD CELL COUNT (BEAKER) (test dmoy=170) 1.90 M/ L 4.63-6.08 HEMOGLOBIN (BEAKER) (test nhpx=136) 6.2 GM/DL 13.7-17.5 HEMATOCRIT (BEAKER) (test gyyq=954) 18.8 % 40.1-51.0 MEAN CORPUSCULAR VOLUME (BEAKER) (test wzoy=721) 98.9 fL 79.0-92.2 MEAN CORPUSCULAR HEMOGLOBIN (BEAKER) (test 32.6 pg 25.7-32.2 stbr=339) MEAN CORPUSCULAR HEMOGLOBIN CONC (BEAKER) (test 33.0 GM/DL 32.3-36.5 whil=957) RED CELL DISTRIBUTION WIDTH (BEAKER) (test 18.8 % 11.6-14.4 xykt=312) PLATELET COUNT (BEAKER) (test fbqi=472) 41 K/CU MM 150-450 MEAN PLATELET VOLUME (BEAKER) (test ogoe=142) 10.8 fL 9.4-12.4 NUCLEATED RED BLOOD CELLS (BEAKER) (test 0 /100 WBC 0-0 qrql=146) (CELLAVISION MANUAL DIFF)2018-01-25 08:39:00 Test Item Value Reference Range Comments NEUTROPHILS - REL (CELLAVISION)(BEAKER) (test 82 % gdrg=9523) LYMPHOCYTES - REL (CELLAVISION)(BEAKER) (test 9 % oxpi=2357) MONOCYTES - REL (CELLAVISION)(BEAKER) (test 3 % luun=2617) BASOPHILS - REL (CELLAVISION)(BEAKER) (test 2 % ubeu=7903) BANDS - REL (CELLAVISION)(BEAKER) (test 4 % 0-10 owre=3351) NEUTROPHILS - ABS (CELLAVISION)(BEAKER) (test 6.31 K/ul 1.78-5.38 nhxh=4915) LYMPHOCYTES - ABS (CELLAVISION)(BEAKER) (test 0.69 K/ul 1.32-3.57 ogcj=3763) MONOCYTES - ABS (CELLAVISION)(BEAKER) (test 0.23 K/uL 0.30-0.82 cxrl=4803) BASOPHILS - ABS (CELLAVISION)(BEAKER) (test 0.15 K/uL 0.01-0.08 uwkj=7930) BANDS - ABS (CELLAVISION)(BEAKER) (test 0.31 K/uL 0.00-0.80 uanh=5271) TOTAL COUNTED (BEAKER) (test wkdo=4275) 100 MANUAL NRBC PER 100 CELLS (BEAKER) (test 1 /100 WBC 0-0 yait=4712) SMUDGE CELLS (BEAKER) (test wbgz=8023) Present GIANT PLATELETS (BEAKER) (test laxj=317) Present STOMATOCYTES (BEAKER) (test rvgn=181) 2+ moderate ARTIFACT (CELLAVISION)(BEAKER) (test nzww=2549) Present PLATELET CONCENTRATION (CELLAVISION)(BEAKER) Decreased (test fyoe=1474) Received comment: User comments: Slide comments:HGB/HCT (H&H) - STAT [id number] 08:32:00 Test Item Value Reference Range Comments HEMOGLOBIN (BEAKER) (test vkyy=007) 6.9 g/dL 13.0-16.8 HEMATOCRIT (BEAKER) (test rnuz=937) 20.0 % 40.0-50.0 POTASSIUM-STAT [id number] 07:37:00 Test Item Value Reference Range Comments POTASSIUM (BEAKER) (test nweb=650) 5.3 meq/L 3.6-5.5 POCT-GLUCOSE [id number] 07:25:00 Test Item Value Reference Range Comments POC-GLUCOSE METER (BEAKER) 232 mg/dL 70-[address] [facility] [address] [facility] (test ebxg=3678) [facility] [address] COMPREHENSIVE METABOLIC [id number] 06:04:00 Test Item Value Reference Range Comments TOTAL PROTEIN (BEAKER) 4.2 gm/dL 6.0-8.3 (test wqds=100) ALBUMIN (BEAKER) (test 2.2 g/dL 3.5-5.0 rbon=3411) ALKALINE PHOSPHATASE 279 U/L 40-150 (BEAKER) (test gafb=956) BILIRUBIN TOTAL (BEAKER) 6.2 mg/dL 0.2-1.2 (test cflk=051) SODIUM (BEAKER) (test 153 meq/L 136-145 izci=179) POTASSIUM (BEAKER) (test 6.1 meq/L 3.5-5.1 nsgk=750) CHLORIDE (BEAKER) (test 107 meq/L 98-107 mmqi=777) CO2 (BEAKER) (test 26 meq/L 22-29 atsu=927) BLOOD UREA NITROGEN 19 mg/dL 7-21 (BEAKER) (test vuws=071) CREATININE (BEAKER) (test 3.95 mg/dL 0.57-1.25 tgla=421) GLUCOSE RANDOM (BEAKER) 45 mg/dL 70-105 (test bnnd=663) CALCIUM (BEAKER) (test 7.8 mg/dL 8.4-10.2 trge=828) AST (SGOT) (BEAKER) (test 3300 U/L 5-34 ecla=726) ALT (SGPT) (BEAKER) (test 932 U/L 6-55 lumc=030) EGFR (BEAKER) (test 16 mL/min/1.73 sq m ESTIMATED GFR IS NOT lxil=8775) ACCURATE CREATININE CLEARANCE IN PREDICTING GLOMERULAR FILTRATION RATE. ESTIMATED GFR IS NOT APPLICABLE FOR DIALYSIS PATIENTS. Specimen moderately [id number] 05:20:00 Test Item Value Reference Range Comments FIBRINOGEN LEVEL (BEAKER) (test euvq=874) 154 mg/dl 225-434 PROTHROMBIN TIME/[id number] 05:15:00 Test Item Value Reference Range Comments PROTIME (BEAKER) (test yvkf=958) 26.9 seconds 11.7-14.7 INR (BEAKER) (test gyhs=744) 2.5 <=5.9 RECOMMENDED COUMADIN/WARFARIN INR THERAPY RANGESSTANDARD DOSE: 2.0 - 3.0 Includes: PROPHYLAXIS forvenous thrombosis, systemic embolization; TREATMENT for venous thrombosis and/or pulmonary embolus.HIGH RISK: Target INR is 2.5-3.5 for patients with mechanical heart valves.LACTIC ACID, VENOUS, WHOLE [id number] 05:00:00 Test Item Value Reference Range Comments LACTATE BLOOD VENOUS (2) (BENJAMINAKER) (test 12.8 mmol/L 0.5-2.2 nfml=9198) Effective 09/15/2015: Units/Reference Range ChangeNew: 0.5-2.2 mmol/L Previous: 5 -20 mg/dLSpecimen moderately ictericTROPONIN [id number] 00:42:00 Test Item Value Reference Range Comments TROPONIN I (BENJAMINAKER) (test jpvt=560) 0.95 ng/mL 0.00-0.03 Troponin I (TnI) levels [...] failure, acidosis, acute neurological disease, and persistent tachyarrhythmia.[id number] 00:39:00 Test Item Value Reference Range Comments FIBRINOGEN LEVEL (BENJAMINAKER) (test ljuo=846) 138 mg/dl 225-434 PROTHROMBIN TIME/[id number] 00:34:00 Test Item Value Reference Range Comments PROTIME (BENJAMINAKER) (test pahl=037) 26.3 seconds 11.7-14.7 INR (BEAKER) (test piqs=004) 2.4 <=5.9 RECOMMENDED COUMADIN/WARFARIN INR THERAPY RANGESSTANDARD DOSE: 2.0 - 3.0 Includes: PROPHYLAXIS forvenous thrombosis, systemic embolization; TREATMENT for venous thrombosis and/or pulmonary embolus.HIGH RISK: Target INR is 2.5-3.5 for patients with mechanical heart valves.CBC W/PLT COUNT & AUTO [id number] 00:23:00 Test Item Value Reference Range Comments WHITE BLOOD CELL COUNT (BEAKER) (test nkfe=024) 9.1 K/ L 3.5-10.5 RED BLOOD CELL COUNT (BEAKER) (test awis=938) 2.22 M/ L 4.63-6.08 HEMOGLOBIN (BEAKER) (test ellu=681) 7.1 GM/DL 13.7-17.5 HEMATOCRIT (BEAKER) (test wswk=311) 21.6 % 40.1-51.0 MEAN CORPUSCULAR VOLUME (BEAKER) (test frqu=128) 97.3 fL 79.0-92.2 MEAN CORPUSCULAR HEMOGLOBIN (BEAKER) (test 32.0 pg 25.7-32.2 mfum=198) MEAN CORPUSCULAR HEMOGLOBIN CONC (BEAKER) (test 32.9 GM/DL 32.3-36.5 cwrn=831) RED CELL DISTRIBUTION WIDTH (BEAKER) (test 18.5 % 11.6-14.4 efue=960) PLATELET COUNT (BEAKER) (test fipb=570) 54 K/CU MM 150-450 MEAN PLATELET VOLUME (BEAKER) (test pvok=426) 10.8 fL 9.4-12.4 NUCLEATED RED BLOOD CELLS (BEAKER) (test 0 /100 WBC 0-0 bkqn=268) NEUTROPHILS RELATIVE PERCENT (BEAKER) (test 78 % ixyt=026) LYMPHOCYTES RELATIVE PERCENT (BEAKER) (test 15 % zqyw=505) MONOCYTES RELATIVE PERCENT (BEAKER) (test 6 % ymlx=790) EOSINOPHILS RELATIVE PERCENT (BEAKER) (test 0 % jifz=635) BASOPHILS RELATIVE PERCENT (BEAKER) (test 0 % kbhd=076) NEUTROPHILS ABSOLUTE COUNT (BEAKER) (test 7.08 K/ L 1.78-5.38 adwc=553) LYMPHOCYTES ABSOLUTE COUNT (BEAKER) (test 1.31 K/ L 1.32-3.57 fcop=776) MONOCYTES ABSOLUTE COUNT (BEAKER) (test pafu=336) 0.52 K/ L 0.30-0.82 EOSINOPHILS ABSOLUTE COUNT (BEAKER) (test 0.02 K/ L 0.04-0.54 hhjt=906) BASOPHILS ABSOLUTE COUNT (BEAKER) (test iyqx=708) 0.01 K/ L 0.01-0.08 IMMATURE GRANULOCYTES-RELATIVE PERCENT (BEAKER) 1 % 0-1 (test comk=8750) LACTIC ACID, VENOUS, WHOLE [id number] 23:00:00 Test Item Value Reference Range Comments LACTATE BLOOD VENOUS (2) (BEAKER) (test 10.3 mmol/L 0.5-2.2 ypxe=4468) Effective 09/15/2015: Units/Reference Range ChangeNew: 0.5-2.2 mmol/L Previous: 5 -20 mg/dLSpecimen moderately [id number] 22:12:00 Test Item Value Reference Range Comments FIBRINOGEN LEVEL (BEAKER) (test uyxu=714) 147 mg/dl 225-434 PROTHROMBIN [id number] 22:07:00 Test Item Value Reference Range Comments PROTIME (BEAKER) (test nahs=014) 23.7 seconds 11.7-14.7 INR (BEAKER) (test pnqk=787) 2.1 <=5.9 RECOMMENDED COUMADIN/WARFARIN INR THERAPY RANGESSTANDARD DOSE: 2.0 - 3.0 Includes: PROPHYLAXIS forvenous thrombosis, systemic embolization; TREATMENT for venous thrombosis and/or pulmonary embolus.HIGH RISK: Target INR is 2.5-3.5 for patients with mechanical heart valves.CBC W/PLT COUNT & AUTO [id number] 21:59:00 Test Item Value Reference Range Comments WHITE BLOOD CELL COUNT (BEAKER) (test cagb=537) 9.9 K/ L 3.5-10.5 RED BLOOD CELL COUNT (BEAKER) (test payr=564) 2.52 M/ L 4.63-6.08 HEMOGLOBIN (BEAKER) (test nhwk=155) 8.1 GM/DL 13.7-17.5 HEMATOCRIT (BEAKER) (test pcxb=279) 24.2 % 40.1-51.0 MEAN CORPUSCULAR VOLUME (BEAKER) (test ucxf=474) 96.0 fL 79.0-92.2 MEAN CORPUSCULAR HEMOGLOBIN (BEAKER) (test 32.1 pg 25.7-32.2 tztx=741) MEAN CORPUSCULAR HEMOGLOBIN CONC (BEAKER) (test 33.5 GM/DL 32.3-36.5 xxfx=623) RED CELL DISTRIBUTION WIDTH (BEAKER) (test 18.0 % 11.6-14.4 dsrs=956) PLATELET COUNT (BEAKER) (test tevz=181) 59 K/CU MM 150-450 MEAN PLATELET VOLUME (BEAKER) (test zjsk=412) 10.9 fL 9.4-12.4 NUCLEATED RED BLOOD CELLS (BEAKER) (test 0 /100 WBC 0-0 ubkc=369) NEUTROPHILS RELATIVE PERCENT (BEAKER) (test 80 % scxx=806) LYMPHOCYTES RELATIVE PERCENT (BEAKER) (test 14 % pnld=536) MONOCYTES RELATIVE PERCENT (BEAKER) (test 5 % siot=063) EOSINOPHILS RELATIVE PERCENT (BEAKER) (test 0 % csqj=717) BASOPHILS RELATIVE PERCENT (BEAKER) (test 0 % fyug=173) NEUTROPHILS ABSOLUTE COUNT (BEAKER) (test 7.91 K/ L 1.78-5.38 yiqy=601) LYMPHOCYTES ABSOLUTE COUNT (BEAKER) (test 1.37 K/ L 1.32-3.57 kcmp=694) MONOCYTES ABSOLUTE COUNT (BEAKER) (test lvdh=187) 0.52 K/ L 0.30-0.82 EOSINOPHILS ABSOLUTE COUNT (BEAKER) (test 0.01 K/ L 0.04-0.54 dhyp=350) BASOPHILS ABSOLUTE COUNT (BEAKER) (test wgcr=797) 0.02 K/ L 0.01-0.08 IMMATURE GRANULOCYTES-RELATIVE PERCENT (BEAKER) 1 % 0-1 (test npit=4588) BLOOD GAS, [id number] 21:59:00 Test Item Value Reference Range Comments PH ARTERIAL (BEAKER) (test uzcd=963) 7.42 7.35-7.45 PCO2 ARTERIAL (BEAKER) (test ypxe=846) 39 mmHg 35-45 PO2 ARTERIAL (BEAKER) (test zngi=994) 205 mmHg 80-90 O2 SATURATION ARTERIAL (BEAKER) (test kkys=308) 99.4 % 96.0-97.0 HCO3 ARTERIAL (BEAKER) (test ygmy=184) 25 mmol/L 21-29 BASE EXCESS ARTERIAL (BEAKER) (test cnmi=608) 0.4 mmol/L -2.0-3.0 PATIENT TEMPERATURE (BEAKER) (test osat=9742) 38.0 C FIO2 (BEAKER) (test vxkb=3403) 21.0 % LACTIC ACID, VENOUS, WHOLE [id number] 18:10:00 Test Item Value Reference Range Comments LACTATE BLOOD VENOUS (2) (FRANCISCO) (test 10.3 mmol/L 0.5-2.2 eixo=1646) Effective 09/15/2015: Units/Reference Range ChangeNew: 0.5-2.2 mmol/L Previous: 5 -20 mg/dLSpecimen slightly ictericU/S, ABDOMINAL, WITH [id number] 17:57: 00Reason for exam:->TIPS eval, hx of [...] CT if clinically indicated. Signed: Singh Humphreys Verified Date/Time: 01/24/2018 17:57: 10 Reading Location: [place] [id number] Ultrasound Reading Room POCT-GLUCOSE [id number] 17:43:00 Test Item Value Reference Range Comments POC-GLUCOSE METER (BEAKER) 83 mg/dL 70-[address] [facility] [address] [place] [address] (test gdwn=3685) [facility] [address] [id number] 17:36:00 Test Item Value Reference Range Comments PROCALCITONIN (BEAKER) (test xzqf=8481) 0.63 ng/mL <0.05 SEPSIS RISK (ng/mL)Low: 0.05-0.50Intermediate: 0.51-2.00High: & gt;=2.01EEG AWAKE AND [id number] 17:10:00Reason for exam:->r/o siezuresShould this be performed at the bedside?->YesDate of EE2017DATE OF REPORT: 01/24/2018ACC: [id number] Number: [id number] Location: Inpatient EEGStart time: 15:50Stop time: 16:12ICD-10: R56.9CPT Code: 48618 HISTORY: 52 y old male with h/o [...] Josef Casillas MDNeurophysiology FellowReggie Gerard M.D., STACEY, FAAN, BRANDO Professor of Neurology, [facility] Director, [facility] Epilepsy [place], [facility] Neuro[facility]iology Lab Electronically signed by: REGGIE GERARD on 01/24 05:10 PMCALCIUM, [id number] 16:35:00 Test Item Value Reference Range Comments CALCIUM IONIZED (BEAKER) (test kyvj=406) 1.09 mmol/L 1.12-1.27 PH, BLOOD (BEAKER) (test qjvt=1402) 7.40 CBC (HEMOGRAM ONLY)2018-01-24 15:58:00 Test Item Value Reference Range Comments WHITE BLOOD CELL COUNT (BEAKER) (test gdzo=222) 13.1 K/ L 3.5-10.5 RED BLOOD CELL COUNT (BEAKER) (test rmxv=980) 2.67 M/ L 4.63-6.08 HEMOGLOBIN (BEAKER) (test kjdc=136) 8.6 GM/DL 13.7-17.5 HEMATOCRIT (BEAKER) (test sldo=047) 25.5 % 40.1-51.0 MEAN CORPUSCULAR VOLUME (BEAKER) (test zvis=421) 95.5 fL 79.0-92.2 MEAN CORPUSCULAR HEMOGLOBIN (BEAKER) (test 32.2 pg 25.7-32.2 zxqd=245) MEAN CORPUSCULAR HEMOGLOBIN CONC (BEAKER) (test 33.7 GM/DL 32.3-36.5 llfd=672) RED CELL DISTRIBUTION WIDTH (BEAKER) (test 17.4 % 11.6-14.4 paue=018) PLATELET COUNT (BEAKER) (test uuao=479) 71 K/CU MM 150-450 MEAN PLATELET VOLUME (BEAKER) (test reuu=411) 10.3 fL 9.4-12.4 NUCLEATED RED BLOOD CELLS (BEAKER) (test 0 /100 WBC 0-0 feti=043) URINALYSIS W/ REFLEX URINE [id number] 15:02:00 Test Item Value Reference Range Comments COLOR (BEAKER) (test yjsr=375) Dark Yellow CLARITY (BEAKER) (test hctk=305) Cloudy SPECIFIC GRAVITY UA (BEAKER) (test omib=192) 1.017 1.001-1.035 PH UA (BEAKER) (test nhqu=703) 5.0 5.0-8.0 PROTEIN UA (BEAKER) (test gubj=153) 30 mg/dL Negative GLUCOSE UA (BEAKER) (test tvtu=597) 30 mg/dL Negative KETONES UA (BEAKER) (test dxtp=444) Negative Negative BILIRUBIN UA (BEAKER) (test hguz=364) Positive Negative BLOOD UA (BEAKER) (test qoda=867) Large Negative NITRITE UA (BEAKER) (test adrj=377) Negative Negative LEUKOCYTE ESTERASE UA (BEAKER) (test tkfy=653) Negative Negative UROBILINOGEN UA (BEAKER) (test qpxt=516) 0.2 mg/dL 0.2-1.0 RBC UA (BEAKER) (test llqo=912) 27 /HPF WBC UA (BEAKER) (test txdp=976) 13 /HPF BACTERIA (BEAKER) (test dyep=451) Few MUCUS (BEAKER) (test ptls=9048) Occasional HYALINE CASTS (BEAKER) (test nlgn=747) 10 /LPF SOURCE(BEAKER) (test eely=3161) POTASSIUM-STAT [id number] 14:43:00 Test Item Value Reference Range Comments POTASSIUM (BEAKER) (test sqbw=041) 5.0 meq/L 3.6-5.5 SODIUM NA-STAT [id number] 14:43:00 Test Item Value Reference Range Comments SODIUM (BEAKER) (test suns=959) 144 meq/L 135-148 BLOOD GAS, [id number] 14:43:00 Test Item Value Reference Range Comments PH ARTERIAL (BEAKER) (test uoxv=484) 7.32 7.35-7.45 PCO2 ARTERIAL (BEAKER) (test qsnp=644) 38 mmHg 35-45 PO2 ARTERIAL (BEAKER) (test azhy=809) 265 mmHg 80-90 O2 SATURATION ARTERIAL (BEAKER) (test bbgh=117) 99.6 % 96.0-97.0 HCO3 ARTERIAL (BEAKER) (test cjcb=030) 19 mmol/L 21-29 BASE EXCESS ARTERIAL (BEAKER) (test xzou=295) -6.2 mmol/L -2.0-3.0 PATIENT TEMPERATURE (BEAKER) (test rlus=6415) 38.5 C FIO2 (BEAKER) (test urlv=5862) 60.0 % POCT-GLUCOSE [id number] 14:12:00 Test Item Value Reference Range Comments POC-GLUCOSE METER (BEAKER) 196 mg/dL 70-[address] [facility] [address] [facility] (test nnoh=2998) [facility] [address] LACTIC ACID, ARTERIAL, WHOLE [id number] 13:49:00 Test Item Value Reference Range Comments LACTATE BLOOD ARTERIAL (2) (BEAKER) (test > mmol/L 0.5-2.2 ixgv=0079) Effective 09/15/2015: Units/Reference Range ChangeNew: 0.5-2.2 mmol/L Previous: 5 -20 mg/dLSpecimen slightly ictericTHROMBOELASTOGRAPH (TEG)2018-01-24 13:18:00 Test Item Value Reference Range Comments TEG ACTIVATED CLOTTING TIME (BEAKER) (test 4.8 minutes 4.0-7.0 pcgx=9432) TEG FIBRINOGEN ACTIVITY (BEAKER) (test 65.1 degrees 61.0-73.0 akbf=0866) TEG PLT. AGGREGATION (BEAKER) (test zspq=1786) 49.4 MM 55.0-65.0 TEG FIBRINOLYSIS (BEAKER) (test jykh=0736) 0.0 % 0.0-5.0 TGH ACTIVATED CLOTTING TIME (BEAKER) (test 4.7 minutes 4.0-7.0 pmjk=5382) TGH FIBRINOGEN ACTIVITY (BEAKER) (test 63.2 degrees 61.0-73.0 ydwq=1519) TGH PLT. AGGREGATION (BEAKER) (test ubxs=3711) 45.9 MM 55.0-65.0 TGH FIBRINOLYSIS (BEAKER) (test koin=8308) 0.0 % 0.0-5.0 BASIC METABOLIC [id number] 13:02:00 Test Item Value Reference Range Comments SODIUM (BEAKER) (test 150 meq/L 136-145 yjec=291) POTASSIUM (BEAKER) (test 6.0 meq/L 3.5-5.1 opbr=480) CHLORIDE (BEAKER) (test 112 meq/L 98-107 vhgt=194) CO2 (BEAKER) (test 16 meq/L 22-29 grbf=411) BLOOD UREA NITROGEN 12 mg/dL 7-21 (BEAKER) (test ptbm=040) CREATININE (BEAKER) (test 1.71 mg/dL 0.57-1.25 agly=087) GLUCOSE RANDOM (BEAKER) 97 mg/dL 70-105 (test aeeu=368) CALCIUM (BEAKER) (test 8.0 mg/dL 8.4-10.2 ryfj=235) EGFR (BEAKER) (test 42 mL/min/1.73 sq m ESTIMATED GFR IS NOT woyy=3423) ACCURATE CREATININE CLEARANCE IN PREDICTING GLOMERULAR FILTRATION RATE. ESTIMATED GFR IS NOT APPLICABLE FOR DIALYSIS PATIENTS. Specimen slightly ictericTROPONIN [id number] 12:59:00 Test Item Value Reference Range Comments TROPONIN I (BEAKER) (test rsdt=064) 0.17 ng/mL 0.00-0.03 Troponin I (TnI) levels [...] failure, acidosis, acute neurological disease, and persistent tachyarrhythmia.[id number] 12:47:00 Test Item Value Reference Range Comments PROTIME (BEAKER) (test iqzy=288) 20.5 seconds 11.7-14.7 INR (BEAKER) (test fyxe=308) 1.8 <=5.9 PARTIAL THROMBOPLASTIN TIME (BEAKER) (test 55.4 seconds 22.5-36.0 mqav=042) RECOMMENDED COUMADIN/WARFARIN INR THERAPY RANGESSTANDARD DOSE: 2.0 - 3.0 Includes: PROPHYLAXIS forvenous thrombosis, systemic embolization; TREATMENT for venous thrombosis and/or pulmonary embolus.HIGH RISK: Target INR is 2.5-3.5 for patients with mechanical heart valves.[id number] 12:46:00 Test Item Value Reference Range Comments FIBRINOGEN LEVEL (BEAKER) (test dhol=601) 159 mg/dl 225-434 CBC W/PLT COUNT & AUTO [id number] 12:21:00 Test Item Value Reference Range Comments WHITE BLOOD CELL COUNT (BEAKER) (test fuyz=969) 14.3 K/ L 3.5-10.5 RED BLOOD CELL COUNT (BEAKER) (test bkju=664) 2.80 M/ L 4.63-6.08 HEMOGLOBIN (BEAKER) (test zeqe=172) 9.1 GM/DL 13.7-17.5 HEMATOCRIT (BEAKER) (test jpvf=689) 27.5 % 40.1-51.0 MEAN CORPUSCULAR VOLUME (BEAKER) (test cxzl=165) 98.2 fL 79.0-92.2 MEAN CORPUSCULAR HEMOGLOBIN (BEAKER) (test 32.5 pg 25.7-32.2 hctj=422) MEAN CORPUSCULAR HEMOGLOBIN CONC (BEAKER) (test 33.1 GM/DL 32.3-36.5 qhyf=793) RED CELL DISTRIBUTION WIDTH (BEAKER) (test 16.5 % 11.6-14.4 skls=193) PLATELET COUNT (BEAKER) (test jyrg=836) 97 K/CU MM 150-450 MEAN PLATELET VOLUME (BEAKER) (test mahq=017) 10.6 fL 9.4-12.4 NUCLEATED RED BLOOD CELLS (BEAKER) (test 0 /100 WBC 0-0 gexk=741) NEUTROPHILS RELATIVE PERCENT (BEAKER) (test 89 % bret=814) LYMPHOCYTES RELATIVE PERCENT (BEAKER) (test 5 % boih=708) MONOCYTES RELATIVE PERCENT (BEAKER) (test 5 % mglo=976) EOSINOPHILS RELATIVE PERCENT (BEAKER) (test 0 % rysq=237) BASOPHILS RELATIVE PERCENT (BEAKER) (test 0 % hvto=054) NEUTROPHILS ABSOLUTE COUNT (BEAKER) (test 12.75 K/ L 1.78-5.38 yrfx=723) LYMPHOCYTES ABSOLUTE COUNT (BEAKER) (test 0.69 K/ L 1.32-3.57 dwnv=636) MONOCYTES ABSOLUTE COUNT (BEAKER) (test naep=970) 0.69 K/ L 0.30-0.82 EOSINOPHILS ABSOLUTE COUNT (BEAKER) (test 0.00 K/ L 0.04-0.54 lubw=630) BASOPHILS ABSOLUTE COUNT (BEAKER) (test qvst=190) 0.01 K/ L 0.01-0.08 IMMATURE GRANULOCYTES-RELATIVE PERCENT (BEAKER) 1 % 0-1 (test qxbs=2538) RAD, CHEST, 1 VIEW, NON [id number] 12:18:00Reason for exam:->post intubationShould this be performed [...] intact.Extrinsic support hardware overlies the chest. Signed: Cary Walls Verified Date/Time: 01/24/2018 12:18:39 Reading Location: [facility] Radiology Reading Room BLOOD GAS, [id number] 12:08:00 Test Item Value Reference Range Comments PH ARTERIAL (BEAKER) (test kpjw=170) 7.16 7.35-7.45 PCO2 ARTERIAL (BEAKER) (test fdha=905) 55 mmHg 35-45 PO2 ARTERIAL (BEAKER) (test svkv=031) 248 mmHg 80-90 O2 SATURATION ARTERIAL (BEAKER) (test hdkt=885) 99.3 % 96.0-97.0 HCO3 ARTERIAL (BEAKER) (test mvov=282) 20 mmol/L 21-29 BASE EXCESS ARTERIAL (BEAKER) (test skqh=686) -9.1 mmol/L -2.0-3.0 PATIENT TEMPERATURE (BEAKER) (test qiqr=2790) 36.0 C FIO2 (BEAKER) (test mumj=6715) 60.0 % [id number] 11:23:00 Test Item Value Reference Range Comments POTASSIUM (BEAKER) (test hqex=949) 5.6 meq/L 3.5-5.1 HEMOGLOBIN AND [id number] 10:52:00 Test Item Value Reference Range Comments HEMOGLOBIN (BEAKER) (test xwsp=502) 9.7 GM/DL 13.7-17.5 HEMATOCRIT (BEAKER) (test itjs=901) 30.2 % 40.1-51.0 BLOOD GAS, [id number] 10:35:00 Test Item Value Reference Range Comments PH ARTERIAL (BEAKER) (test blcs=870) 7.13 7.35-7.45 PCO2 ARTERIAL (BEAKER) (test iiop=367) 47 mmHg 35-45 PO2 ARTERIAL (BEAKER) (test smtf=870) 284 mmHg 80-90 O2 SATURATION ARTERIAL (BEAKER) (test xcig=678) 99.5 % 96.0-97.0 HCO3 ARTERIAL (BEAKER) (test jvjw=794) 16 mmol/L 21-29 BASE EXCESS ARTERIAL (BEAKER) (test itpu=195) -13.1 mmol/L -2.0-3.0 PATIENT TEMPERATURE (BEAKER) (test qthz=7306) 36.5 C FIO2 (BEAKER) (test gdbp=8346) 60.0 % CALCIUM, [id number] 10:34:00 Test Item Value Reference Range Comments CALCIUM IONIZED (BEAKER) (test utjw=977) 0.90 mmol/L 1.12-1.27 PH, BLOOD (BEAKER) (test uzpb=6435) 7.13 POCT-BLOOD GASES, [id number] 09:54:00 Test Item Value Reference Range Comments TEMP, CELSIUS-POC (BEAKER) 37.0 (test ondc=4615) FIO2-POC (BEAKER) (test TESTED AT [facility] [address] uqjb=5079) [facility] [address] PH, ARTERIAL-POC (BEAKER) 7.044 7.350-7.450 (test ynyk=2726) PCO2, ARTERIAL-POC (BEAKER) 48.3 mm Hg 35.0-45.0 (test zpft=8800) PO2, ARTERIAL-POC (BEAKER) 251.0 mm Hg 80.0-90.0 (test hzyi=2216) SO2, ARTERIAL-POC (BEAKER) 100.0 % 96.0-97.0 (test mffm=7515) HCO3, ARTERIAL-POC (BEAKER) 13.2 meq/L 21.0-29.0 (test cvkx=9049) BASE EXCESS, ARTERIAL-POC -17.0 meq/L -2.0-3.0 (BEAKER) (test ehtw=0782) [id number] 09:54:00 Test Item Value Reference Range Comments POC-SODIUM (BEAKER) (test 143 meq/L 135-148 TESTED AT [address] gfpb=9979) [place] [address] [id number] 09:54:00 Test Item Value Reference Range Comments POC-POTASSIUM (BEAKER) (test 5.5 meq/L 3.6-5.5 TESTED AT [address] poqw=3556) [place] [address] [id number] 09:54:00 Test Item Value Reference Range Comments POC-GLUCOSE (BEAKER) (test 121 mg/dL 70-110 TESTED AT [address] hesi=5203) [place] [address] POCT-CALCIUM [id number] 09:54:00 Test Item Value Reference Range Comments POC-CALCIUM IONIZED (BEAKER) 0.95 mmol/L 1.12-1.27 TESTED AT [address] (test eoyw=1285) [place] [address] [id number] 09:54:00 Test Item Value Reference Range Comments POC-HEMATOCRIT (BEAKER) (test 28 % 40-50 TESTED AT [address] lyrs=6352) [place] [address] [id number] 09:54:00 Test Item Value Reference Range Comments POC-HEMOGLOBIN (BEAKER) 9.5 g/dL 13.0-16.8 TESTED AT [address] (test xjho=3099) [place] [address]TESTED AT [place] [address] [id number] 09:34:00 Test Item Value Reference Range Comments D-DIMER QUANTITATIVE (BEAKER) (test erte=719) 1.49 MG/L FEU <0.50 Intended Use: The [...] of thrombosis is within 95-100% range.COMPREHENSIVE METABOLIC [id number] 09:32:00 Test Item Value Reference Range Comments TOTAL PROTEIN (BEAKER) 4.8 gm/dL 6.0-8.3 (test hlth=731) ALBUMIN (BEAKER) (test 1.9 g/dL 3.5-5.0 hqbw=4888) ALKALINE PHOSPHATASE 153 U/L 40-150 (BEAKER) (test urmr=211) BILIRUBIN TOTAL (BEAKER) 2.8 mg/dL 0.2-1.2 (test qrhl=590) SODIUM (BEAKER) (test 143 meq/L 136-145 exzx=348) POTASSIUM (BEAKER) (test 5.1 meq/L 3.5-5.1 mqqt=379) CHLORIDE (BEAKER) (test 113 meq/L 98-107 lmpq=948) CO2 (BEAKER) (test 12 meq/L 22-29 myoz=453) BLOOD UREA NITROGEN 12 mg/dL 7-21 (BEAKER) (test stoa=661) CREATININE (BEAKER) (test 1.83 mg/dL 0.57-1.25 sfow=445) GLUCOSE RANDOM (BEAKER) 138 mg/dL 70-105 (test uria=772) CALCIUM (BEAKER) (test 7.4 mg/dL 8.4-10.2 zsli=267) AST (SGOT) (BEAKER) (test 283 U/L 5-34 sjyy=059) ALT (SGPT) (BEAKER) (test 78 U/L 6-55 vehg=051) EGFR (BEAKER) (test 39 mL/min/1.73 sq m ESTIMATED GFR IS NOT izla=5682) ACCURATE CREATININE CLEARANCE IN PREDICTING GLOMERULAR FILTRATION RATE. ESTIMATED GFR IS NOT APPLICABLE FOR DIALYSIS PATIENTS. Specimen slightly [id number] 09:29:00 Test Item Value Reference Range Comments POTASSIUM (BEAKER) (test uxpx=465) 5.1 meq/L 3.5-5.1 [id number] 09:29:00 Test Item Value Reference Range Comments SODIUM (BEAKER) (test pvgy=594) 143 meq/L 136-145 [id number] 09:29:00 Test Item Value Reference Range Comments GLUCOSE RANDOM (BEAKER) (test rqew=733) 138 mg/dL 70-105 LACTIC ACID, VENOUS, WHOLE [id number] 09:23:00 Test Item Value Reference Range Comments LACTATE BLOOD VENOUS (2) (BEAKER) (test 13.2 mmol/L 0.5-2.2 qtem=8810) Effective 09/15/2015: Units/Reference Range ChangeNew: 0.5-2.2 mmol/L Previous: 5 -20 mg/[id number] 09:22:00 Test Item Value Reference Range Comments FIBRINOGEN LEVEL (BEAKER) (test rduj=972) < mg/dl 225-434 [id number] 09:15:00 Test Item Value Reference Range Comments PROTIME (BEAKER) (test guqc=020) 24.3 seconds 11.7-14.7 INR (BEAKER) (test wmuh=649) 2.2 <=5.9 PARTIAL THROMBOPLASTIN TIME (BEAKER) (test 47.1 seconds 22.5-36.0 pvvz=048) RECOMMENDED COUMADIN/WARFARIN INR THERAPY RANGESSTANDARD DOSE: 2.0 - 3.0 Includes: PROPHYLAXIS forvenous thrombosis, systemic embolization; TREATMENT for venous thrombosis and/or pulmonary embolus.HIGH RISK: Target INR is 2.5-3.5 for patients with mechanical heart valves.POCT-LACTIC ACID, [id number] 09: 04:00 Test Item Value Reference Range Comments POC-LACTIC ACID, VENOUS 10.1 mmol/L 0.9-1.[address] [facility] [address] [facility] (BEAKER) (test cxwg=9933) [place] [address] PLATELET [id number] 09:03:00 Test Item Value Reference Range Comments PLATELET COUNT (BEAKER) (test lcld=006) 70 K/CU MM 150-450 HEMOGLOBIN AND [id number] 09:03:00 Test Item Value Reference Range Comments HEMOGLOBIN (BEAKER) (test mocu=302) 7.3 GM/DL 13.7-17.5 HEMATOCRIT (BEAKER) (test sury=959) 22.2 % 40.1-51.0 [id number] 08:52:00 Test Item Value Reference Range Comments POC-GLUCOSE (BEAKER) (test 132 mg/dL 70-110 TESTED AT [address] yzrx=6201) [place] [address] POCT-CALCIUM [id number] 08:52:00 Test Item Value Reference Range Comments POC-CALCIUM IONIZED (BEAKER) 1.00 mmol/L 1.12-1.27 TESTED AT [address] (test evhz=4083) [place] [address] [id number] 08:52:00 Test Item Value Reference Range Comments POC-HEMATOCRIT (BEAKER) (test 19 % 40-50 TESTED AT [address] rzue=8624) [place] [address] [id number] 08:52:00 Test Item Value Reference Range Comments POC-HEMOGLOBIN (BEAKER) 6.5 g/dL 13.0-16.8 TESTED AT [address] (test qmci=0622) [place] [address]TESTED AT [place] [address] POCT-BLOOD GASES, [id number] 08:51:00 Test Item Value Reference Range Comments TEMP, CELSIUS-POC (BEAKER) 37.0 (test mmnp=4557) FIO2-POC (BEAKER) (test TESTED AT [address] yced=8895) [place] [address] PH, VENOUS-POC (BEAKER) 7.213 7.320-7.420 (test euaz=0503) PCO2, VENOUS-POC (BEAKER) 32.2 mm Hg 41.0-51.0 (test elnq=5331) PO2, VENOUS-POC (BEAKER) 15.0 mm Hg 25.0-40.0 (test grcm=5029) SO2, VENOUS-POC (BEAKER) 14.0 % 40.0-70.0 (test qehj=8870) HCO3, VENOUS-POC (BEAKER) 13.0 meq/L 21.0-29.0 (test tdjf=9640) BASE EXCESS, VENOUS-POC -15.0 meq/L -2.0-3.0 (BEAKER) (test iuar=3398) [id number] 08:51:00 Test Item Value Reference Range Comments POC-SODIUM (BEAKER) (test 143 meq/L 135-148 TESTED AT [place] [address] [address] lyur=4709) [place] [address] [id number] 08:51:00 Test Item Value Reference Range Comments POC-POTASSIUM (BEAKER) (test 4.8 meq/L 3.6-5.5 TESTED AT [place] [address] [address] ctva=9768) [place] [address]
--- OUTSIDE RECORDS SUMMARY | 2019-03-31 03:23 | XMS REPORT ---
:1965 Author Organization [employer] Care Team Providers Name Role Phone Kentrell Flores Provider Role Unavailable Allergies, Adverse Reactions, Alerts Substance Reaction Event Type N.K.D.A. 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 Problem Varices of stomach without bleeding I86.4 Active Problem Delirium tremens F10.231 Active Assessment Alcoholic cirrhosis of liver with K70.31 Active ascites Assessment 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, without psychotic features Problem Elevated blood pressure reading R03.0 Active Assessment Iron deficiency anemia due to D50.0 Active chronic blood loss Problem Alcoholism F10.20 Active Medications Medication Code Code Instructions Start End Status Dosage System Date Date Furosemide ND 57358994850 40 MG Orally Jun 20, Active 2 tablets Once a day 2018 BuPROPion HCl ND 91680509904 100 MG Orally Feb 03, Active 1 tablet Twice a day 2019 Folic Acid [facility] 41825076454 1 MG Oral Active TAKE 1 TABLET BY MOUTH EVERY DAY Spironolactone ND 64658666378 25 MG Oral Active TAKE 1 TABLET BY MOUTH EVERY DAY Hydrocortisone ND 25592065130 10 MG Orally Active 1 tablet every 12 hrs with food or milk Ferrous Sulfate [facility] 70178961578 325 (65 Fe) MG Feb 03, Active 1 tablet Orally Once a 2019 day Results No Known Results Summary Purpose [employer]Works Submission
[2019-03-31] MEDS ORDERED: PROMETHAZINE 25 MG/ML VIAL ONE (03:26)
[2019-03-31] MEDS ORDERED: PANTOPRAZOLE 40 MG INJ ONE (03:38)
[2019-03-31] MEDS ORDERED: NA CHLORIDE 0.9% 500 ML ONE ×2 (03:38→05:05)
[2019-03-31] MEDS ORDERED: OCTREOTIDE ACETATE 100 MCG/ML ONE (03:39)
[2019-03-31 03:48] LABS: Absolute Lymphocytes (CBC) 0.5 K/uL (0.7-4.9); Basophils % 0.2 % (0-1.3)
[2019-03-31 03:51] LABS: Lymphocytes % 8.5 % (15.3-44.8); MPV 9.4 fL (7.6-11.3); Protime INR 3.37; RBC Red Blood Cell Count 1.63 M/uL (4.33-5.43)
[2019-03-31] MEDS ORDERED: NA CHLORIDE 0.9% 1,000 ML ONE ×2 (03:55→05:04)
[2019-03-31 04:12] LABS: Albumin 1.3 g/dL (3.4-5.0); Bilirubin Direct 4.6 mg/dL (0-0.2); Potassium 3.7 mmol/L (3.5-5.1); Protein, Total 5.7 g/dL (6.4-8.2)
[2019-03-31 04:13] LABS: Bilirubin Total 5.5 mg/dL (0.2-1.0)
[2019-03-31] MEDS ORDERED: RSI MEDICATION KIT IV ONE (04:28)
[2019-03-31] MEDS ORDERED: MIDAZOLAM HCL 2 MG/2 ML INJ ONE (04:50)
--- NOTE | 2019-03-31 04:53 | ER ---
Nurse's Notes [facility] Name: Wesley Taylor Age: 53 yrs Sex: Male : 1965 Arrival Date: 03/31/2019 Time: 03:06 Bed 3 Private MD: Diagnosis: Esophageal varices with bleeding;Alcoholic cirrhosis of liver with ascites;Anemia, unspecified Presentation: 03/31 02:58 Presenting complaint: EMS states: Pt vomited blood 1 hr ago. Has had nausea for the jb4 past 4 days. 02:58 Transition of care: patient was not received from another setting of care. Onset of jb4 symptoms was March 27, 2019. Risk Assessment: Do you want to hurt yourself or someone else? Patient reports no desire to harm self or others. Initial Sepsis Screen: Does the patient meet any 2 criteria? No. Patient's initial sepsis screen is negative. Does the patient have a suspected source of infection? No. Patient's initial sepsis screen is negative. Care prior to arrival: None. 02:58 Method Of Arrival: EMS: [facility] jb4 02:58 Acuity: MERNA 1 jb4 Historical: - Allergies: 02:58 No Known Allergies; jb4 - Home Meds: 02:58 ondansetron HCl 8 mg Oral tab 1 tab 2 times per day [Active]; Senna with Docusate jb4 Sodium 8.6-50 mg oral tab 2 tabs once daily [Active]; spironolactone 25 mg Oral tab 1 tab once daily [Active]; buproban [Active]; folic acid 1 mg Oral tab 1 tab once daily [Active]; lactulose 20 gram/30 mL Oral soln 45 mL 3 times per day [Active]; pantoprazole 40 mg oral TbEC 1 tab once daily [Active]; potassium chloride 10 mEq Oral cpER 1 cap 2 times per day [Active]; propranolol 20 mg Oral tab 1 tab 3 times per day [Active]; rifaximin oral 550mg oral 1 tab 2 times per day [Active]; thiamine HCl (vitamin B1) 100 mg Oral tab daily [Active]; - PMHx: 02:58 Alcoholism; Cirrhosis; esophageal varices; GI Bleed; jb4 - PSHx: 02:58 paracentesis; jb4 - Immunization history:: Adult Immunizations up to date. - Social history:: Smoking status: Patient/guardian denies using tobacco, Patient/guardian denies using alcohol. - Family history:: not pertinent. - Ebola Screening: : No symptoms or risks identified at this time. - Hospitalizations: : Patient was recently seen at. Screenin:06 Abuse screen: Denies threats or abuse. Nutritional screening: No deficits noted. jb4 Tuberculosis screening: No symptoms or risk factors identified. Fall Risk IV access (20 points). Total [place] Fall Scale indicates No Risk (0-24 pts). Assessment: 03:06 General: Appears distressed, uncomfortable, Behavior is calm, cooperative, appropriate jb4 for age. Pain: Complains of pain in abdomen Pain does not radiate. Pain currently is 9 out of 10 on a pain scale. Neuro: Level of Consciousness is awake, alert, obeys commands, Oriented to person, place, time, situation. Cardiovascular: Patient's skin is warm and dry. Respiratory: Airway is patent Respiratory effort is even, unlabored, Respiratory pattern is regular, symmetrical. GI: Reports nausea, vomiting. : No deficits noted. No signs and/or symptoms were reported regarding the genitourinary system. EENT: No deficits noted. No signs and/or symptoms were reported regarding the EENT system. Derm: Skin is intact, Skin is dry, Skin is jaundiced, Skin temperature is cool. Musculoskeletal: Circulation, motion, and sensation intact. Range of motion: intact in all extremities. 03:30 Reassessment: Patient and/or family updated on plan of care and expected duration. Pain jb4 level reassessed. Patient is alert, oriented x 3, equal unlabored respirations, skin warm/dry/pink. Pt actively vomiting blood. Vomited 550 ml. of blood. Provider notified. 04:00 Reassessment: Patient and/or family updated on plan of care and expected duration. Pain jb4 level reassessed. Patient is alert, oriented x 3, equal unlabored respirations, skin warm/dry/pink. Patient states feeling better. 04:30 Reassessment: Providers decision to Intubate per request from Receiving physician. jb4 04:39 Reassessment: Successful intubation with 7.5 ET tube, 23 at the teeth. Position jb4 confirmed with CO2 detector. 04:43 Reassessment: Lungs are CTA per RT. jb4 04:46 Reassessment: Central line placed y Dr. Driscoll in the right groin. jb4 04:55 Reassessment: Chest xray done to confirm placement of ET Tube, Sterile dressing applied jb4 to central line. 05:01 Reassessment: Dawson 16 F placed. Drainage to gravity. jb4 05:06 Reassessment: RBC infusion started. jb4 05:25 Reassessment: Patient and/or family updated on plan of care and expected duration. Pain jb4 level reassessed. Life flight is at the bedside. Report given to transferring crew. Plasma and platelets given to life flight for administration. Pt remains intubated Propofol, and blood products flowing through Central line. Octreotide and Protonix infusion continued through left AC IV. Patients belongings given to Life flight to be transferred with the patient. Vital Signs: 02:58 BP 115 / 62; Pulse 77; Resp 17; Temp 98.1(O); Pulse Ox 98% on R/A; Weight 85.73 kg (R); jb4 Height 6 ft. 2 in. (187.96 cm) (R); Pain 9/10; 04:00 BP 113 / 63; Pulse 77; Resp 13; Pulse Ox 97% on R/A; jb4 04:37 BP 89 / 51; Pulse 83; Resp 16; Pulse Ox 100% on R/A; mw2 04:40 BP 133 / 75; Pulse 93; Resp 17; Pulse Ox 100% on 100% FiO2 ETT vent; jb4 05:06 BP 116 / 56; Pulse 78; Resp 12; Temp 97.9(TE); Pulse Ox 100% on 100% FiO2 ETT vent; jb4 02:58 Body Mass Index 24.27 (85.73 kg, 187.96 cm) jb4 ED Course: 02:58 Arm band placed on right wrist. jb4 03:06 Patient arrived in ED. rn 03:06 Shan Drisclol MD is Attending Physician. rn 03:06 Patient has correct armband on for positive identification. Placed in gown. Bed in low jb4 position. Call light in reach. Side rails up X 1. traffic monitor specialist on. Pulse ox on. NIBP on. 03:09 Robert Flores RN is Primary Nurse. jb4 03:10 Triage completed. jb4 03:25 Initial lab(s) drawn, by me, sent to lab. Inserted saline lock: 18 gauge in right jb4 antecubital area, using aseptic technique. Blood collected. 03:45 Inserted saline lock: 18 gauge in left antecubital area, using aseptic technique. jb4 03:48 CT Head Brain wo Cont In Process Unspecified. EDMS 04:39 Assisted provider with intubation using 7.5 mm ETT via oral route. ET tube secured at jb4 23cm at the teeth. Set up intubation tray. Intubated by Shan Driscoll MD Placement verified by CO2 detector w/ + color change, Patient tolerated well. 04:46 Assisted provider with central line placement. Set up central line tray. Triple lumen jb4 line placed in right femoral. Line placed by Shan Driscoll MD Placement verified by blood return, Dressed with Tegaderm, Blood was collected. Patient tolerated well. 04:46 First set of blood cultures drawn by physician. jb4 05:01 Second set of blood cultures drawn by physician. jb4 05:08 XRAY Chest (1 view) In Process Unspecified. EDMS 05:25 Patient transferred, IV remains in place. jb4 Administered Medications: 03:28 Drug: Phenergan 12.5 mg Route: IVP; Site: right antecubital; 04:00 Follow up: Response: No adverse reaction; Nausea is decreased jb4 04:06 Drug: Octreotide 50 mcg Route: IV; Rate: calculated rate; Site: right antecubital; jb4 04:07 Drug: ProTONIX 40 mg Route: IVP; Site: right antecubital; jb4 07:11 Follow up: Response: No adverse reaction jb4 04:08 Not Given (Other Intervention Used): NS 0.9% 500 ml IV at bolus once jb4 04:08 Drug: NS 0.9% 1000 ml Route: IV; Rate: 1 bolus; Site: right antecubital; jb4 05:00 Follow up: Response: No adverse reaction; IV Status: Completed infusion; IV Intake: jb4 1000ml 04:09 Drug: Octreotide Infusion (50 mcg/hr) - (Octreotide 500 mcg, NS 0.9% 500 ml) Route: IV; jb4 Rate: 50 ml/hr; Site: right antecubital; 04:09 Drug: ProTONIX 8 mg/hr Route: IV; Rate: 25 ml/hr; Site: right antecubital; jb4 04:51 Drug: Versed 2 mg Route: IVP; Site: right antecubital; jb4 04:55 Follow up: Response: No adverse reaction jb4 04:59 Drug: Versed 2 mg Route: IVP; Site: right antecubital; jb4 05:04 Follow up: Response: No adverse reaction jb4 05:07 Drug: Dilaudid 1 mg {Note: Pt intubated.} Route: IVP; Site: right antecubital; jb4 05:30 Follow up: Response: No adverse reaction jb4 05:11 Drug: Propofol 5 mcg/kg/min {Note: Administered via central line with NS going at jb4 30ml/hr to help carry medicaiton.} Route: IV; Rate: calculated rate; Site: Other; 05:25 Follow up: Response: No adverse reaction; IV Status: Infusion continued upon transfer jb4 07:07 Not Given (PT left with life flight prior to administration ): Rocephin - (cefTRIAXone) jb4 1 grams IVPB once over 30 mins; (mix in 50 mL NS) 07:09 Not Given (Other Intervention Used): Zofran 4 mg IVP once; over 2 minutes jb4 Intake: 05:00 IV: 1000ml; Total: 1000ml. jb4 Outcome: 04:53 ER care complete, transfer ordered by . rn 04:53 [address] [facility], Transfer form completed. fc X-rays sent w/ patient. 04:53 critical 04:53 Discharge instructions given to patient, Instructed on the need for transfer. 06:20 Patient left the ED. jb4 Signatures: Dispatcher [employer] EDMS Tess Orozco RN RN Shan Driscoll MD MD rn Smirch, Shelby, RN RN ss Bryson, James, RN RN jb4 Lorenzo Alexander [email or web address] Corrections: (The following items were deleted from the chart) 04:07 02:58 Acuity: MERAN 2 jb4 jb4 06:20 05:25 Reassessment: Patient and/or family updated on plan of care and expected jb4 duration. Pain level reassessed. Life flight is at the bedside. Report given to transferring crew. Plasma and platelets given to life flight for administration. Pt remains intubated Propofol, and blood products flowing through Central line. Octreotide and Protonix infusion continued through left AC IV. jb4 07:24 05:25 No provider procedures requiring assistance completed. jb4 jb4
--- NOTE | 2019-03-31 04:53 | EDPHYS ---
Physician Documentation [facility] Name: Wesley Taylor Age: 53 yrs Sex: Male : 1965 Arrival Date: 03/31/2019 Time: 03:06 Bed 3 Private MD: ED Physician Shan Driscoll HPI: 03/31 03:09 This 53 yrs old Male presents to ER via Unassigned with complaints of rn hematemesis. 03:09 The patient presents to the emergency department vomiting blood. Onset: The rn symptoms/episode began/occurred just prior to arrival. Abdominal pain: none is appreciated. Modifying factors: The symptoms are alleviated by nothing, the symptoms are aggravated by nothing. Severity of symptoms: At their worst the symptoms were mild in the emergency department the symptoms are unchanged. The patient has experienced similar episodes in the past. reports vomited blood, single episode, moderate amount, reports feels dizzy. Recently transferred to [facility] for hemorrhagic stroke and confusion. Not on blood thinner. Has alcoholic cirrhosis of liver. Denies recent trauma. . Historical: - Allergies: 02:58 No Known Allergies; jb4 - Home Meds: 02:58 ondansetron HCl 8 mg Oral tab 1 tab 2 times per day [Active]; Senna with Docusate jb4 Sodium 8.6-50 mg oral tab 2 tabs once daily [Active]; spironolactone 25 mg Oral tab 1 tab once daily [Active]; buproban [Active]; folic acid 1 mg Oral tab 1 tab once daily [Active]; lactulose 20 gram/30 mL Oral soln 45 mL 3 times per day [Active]; pantoprazole 40 mg oral TbEC 1 tab once daily [Active]; potassium chloride 10 mEq Oral cpER 1 cap 2 times per day [Active]; propranolol 20 mg Oral tab 1 tab 3 times per day [Active]; rifaximin oral 550mg oral 1 tab 2 times per day [Active]; thiamine HCl (vitamin B1) 100 mg Oral tab daily [Active]; - PMHx: 02:58 Alcoholism; Cirrhosis; esophageal varices; GI Bleed; jb4 - PSHx: 02:58 paracentesis; jb4 - Immunization history:: Adult Immunizations up to date. - Social history:: Smoking status: Patient/guardian denies using tobacco, Patient/guardian denies using alcohol. - Family history:: not pertinent. - Ebola Screening: : No symptoms or risks identified at this time. - Hospitalizations: : Patient was recently seen at. ROS: 03:09 Constitutional: Negative for fever, chills, and weight loss, Eyes: Negative for injury, rn pain, redness, and discharge, Neck: Negative for injury, pain, and swelling, Cardiovascular: Negative for chest pain, palpitations, and edema, Respiratory: Negative for shortness of breath, cough, wheezing, and pleuritic chest pain, Abdomen/GI: + hematemesis MS/Extremity: Negative for injury and deformity, Skin: Negative for injury, rash, and discoloration, Neuro: Negative for headache, numbness, tingling, and seizure. Exam: 03:09 Constitutional: Jaundiced patient, holding emesis bag, bright red blood on rn face/shirt/sock Head/Face: Normocephalic, atraumatic. Eyes: + slceral icterus ENT: dry MM Cardiovascular: Regular rate and rhythm. No pulse deficits. Respiratory: No increased work of breathing, no retractions or nasal flaring. Abdomen/GI: soft, non-tender, + fluid wave present, no peritoneal signs. MS/ Extremity: Pulses equal, no cyanosis. Neurovascular intact. Full, normal range of motion. Equal circumference. Neuro: Awake and alert, follows commands. Cranial nerves II-XII grossly intact. Motor strength 5/5 in all extremities. Sensory grossly intact. Vital Signs: 02:58 BP 115 / 62; Pulse 77; Resp 17; Temp 98.1(O); Pulse Ox 98% on R/A; Weight 85.73 kg (R); jb4 Height 6 ft. 2 in. (187.96 cm) (R); Pain 9/10; 04:00 BP 113 / 63; Pulse 77; Resp 13; Pulse Ox 97% on R/A; jb4 04:37 BP 89 / 51; Pulse 83; Resp 16; Pulse Ox 100% on R/A; mw2 04:40 BP 133 / 75; Pulse 93; Resp 17; Pulse Ox 100% on 100% FiO2 ETT vent; jb4 05:06 BP 116 / 56; Pulse 78; Resp 12; Temp 97.9(TE); Pulse Ox 100% on 100% FiO2 ETT vent; jb4 02:58 Body Mass Index 24.27 (85.73 kg, 187.96 cm) jb4 Procedures: 04:24 Intubation: Ventilated with 100% NRB prior to procedure. O2 saturation prior to appeals rn was 97 %. Intubated orally using # 4 Bozena blade with 7.5 mm ETT. was successful on first attempt. Tube secured with ETT keating at right side of mouth measured 23 cm at teeth. Placement verified by CO2 detector with (+) color change, auscultating bilateral breath sounds, O2 saturation after procedure was 100 %. Patient tolerated well. Central Line: the site was prepped with Betadine, in sterile fashion, a triple lumen catheter was inserted, in the right femoral vein, in 1 attempts. placement was verified, by blood return, the site was dressed with Tegaderm, using sterile technique, the patient tolerated the procedure, well. MDM: 03:06 Patient medically screened. rn 03:37 ED course: PRBC/platelets/FFP ordered for acute upper GI bleed. . rn 04:06 ED course: Hemoglobin 6, transfer initiated. . rn 04:24 Differential diagnosis: varices. Data reviewed: vital signs, nurses notes, lab test rn result(s), and as a result, I will admit patient. ED course: Consulted with MICU and GI at [facility], they accept patient for transfer, request prophylactic intubation for transfer. . 04:51 Counseling: I had a detailed discussion with the patient and/or guardian regarding: the rn historical points, exam findings, and any diagnostic results supporting the discharge/admit diagnosis, lab results, the need to transfer to another facility, for higher level of care, [facility] does not immediately have the required specialist. Response to treatment: the patient's symptoms have mildly improved after treatment, and as a result, I will admit patient. ED course: intubated and central line placed, current BP 133/75. Life flight on his way.. 03/31 03:08 Order name: CBC with Diff rn 03/31 03:08 Order name: Basic Metabolic Panel; Complete Time: 04:18 rn 03/31 03:08 Order name: Protime (+inr); Complete Time: 04:13 rn 03/31 03:08 Order name: Ptt, Activated; Complete Time: 04:13 rn 03/31 03:08 Order name: AMMONIA; Complete Time: 04:13 rn 03/31 03:08 Order name: Type And Screen rn 03/31 03:08 Order name: LFT's; Complete Time: 04:18 rn 03/31 03:08 Order name: Lipase; Complete Time: 04:18 rn 03/31 03:08 Order name: CT Head Brain wo Cont rn 03/31 03:13 Order name: ETOH Level; Complete Time: 04:18 rn 03/31 03:45 Order name: Fresh Frozen Plasma EDMS 03/31 03:45 Order name: Packed RBC Leukored EDAK 03/31 03:45 Order name: Platelets, Leukored Pheresis EDAK 03/31 05:52 Order name: Blood Culture Adult (2) 03/31 03:08 Order name: IV Start; Complete Time: 04:10 rn 03/31 04:59 Order name: XRAY Chest (1 view) rn Administered Medications: 03:28 Drug: Phenergan 12.5 mg Route: IVP; Site: right antecubital; ss 04:00 Follow up: Response: No adverse reaction; Nausea is decreased jb4 04:06 Drug: Octreotide 50 mcg Route: IV; Rate: calculated rate; Site: right antecubital; jb4 04:07 Drug: ProTONIX 40 mg Route: IVP; Site: right antecubital; jb4 07:11 Follow up: Response: No adverse reaction jb4 04:08 Not Given (Other Intervention Used): NS 0.9% 500 ml IV at bolus once jb4 04:08 Drug: NS 0.9% 1000 ml Route: IV; Rate: 1 bolus; Site: right antecubital; jb4 05:00 Follow up: Response: No adverse reaction; IV Status: Completed infusion; IV Intake: jb4 1000ml 04:09 Drug: Octreotide Infusion (50 mcg/hr) - (Octreotide 500 mcg, NS 0.9% 500 ml) Route: IV; jb4 Rate: 50 ml/hr; Site: right antecubital; 04:09 Drug: ProTONIX 8 mg/hr Route: IV; Rate: 25 ml/hr; Site: right antecubital; jb4 04:51 Drug: Versed 2 mg Route: IVP; Site: right antecubital; jb4 04:55 Follow up: Response: No adverse reaction jb4 04:59 Drug: Versed 2 mg Route: IVP; Site: right antecubital; jb4 05:04 Follow up: Response: No adverse reaction jb4 05:07 Drug: Dilaudid 1 mg {Note: Pt intubated.} Route: IVP; Site: right antecubital; jb4 05:30 Follow up: Response: No adverse reaction jb4 05:11 Drug: Propofol 5 mcg/kg/min {Note: Administered via central line with NS going at jb4 30ml/hr to help carry medicaiton.} Route: IV; Rate: calculated rate; Site: Other; 05:25 Follow up: Response: No adverse reaction; IV Status: Infusion continued upon transfer jb4 07:07 Not Given (PT left with life flight prior to administration ): Rocephin - (cefTRIAXone) jb4 1 grams IVPB once over 30 mins; (mix in 50 mL NS) 07:09 Not Given (Other Intervention Used): Zofran 4 mg IVP once; over 2 minutes jb4 Disposition: 03/31/19 04:53 Transfer ordered to [facility]. Diagnosis are Esophageal varices with bleeding, Alcoholic cirrhosis of liver with ascites, Anemia, unspecified. - Reason for transfer: Higher level of care. - Accepting physician is Dr. Aguilera. - Condition is Serious. - Problem is new. - Symptoms have improved. Critical care time excluding procedures: 04:51 Critical care time: Bedside Care: 25 minutes, Consultation: 5 minutes. Total time: 30 rn minutes Signatures: Dispatcher [employer] EDShan Nobles MD MD rn Smirch, Shelby, RN RN ss Bryson, James, RN RN jb4 Corrections: (The following items were deleted from the chart) 06:20 04:53 03/31/2019 04:53 Transfer ordered to [facility]. Diagnosis is jb4 Esophageal varices with bleeding; Alcoholic cirrhosis of liver with ascites; Anemia, unspecified. Reason for transfer: Higher level of care. Accepting physician is Dr. Aguilera. Condition is Serious. Problem is new. Symptoms have improved. rn
[2019-03-31] MEDS ORDERED: PROPOFOL 1,000 MG/100 ML VIAL IV ONE (05:04)
[2019-03-31] MEDS ORDERED: HYDROMORPHONE HCL 1 MG/ML INJ ONE (05:04)
[2019-03-31 06:39] VITALS: O2SAT 100
[2019-03-31 06:39] LABS: Anisocytosis 1+; Blood Morphology Comment NOTED (NOT SEEN); Macrocytosis 1+; Platelet Estimate DECR
[2019-03-31 06:41] VITALS: BP 116/56; TEMP 97.9
--- NOTE | 2019-03-31 09:31 | RAD REPORT ---
EXAM DESCRIPTION: RAD - Chest Single View - 03/31/2019 5:07 am CLINICAL HISTORY: Shortness of breath, intubation COMPARISON: None. TECHNIQUE: AP portable chest image was obtained 0459 hour . FINDINGS: ET tube is in place with the tip mid aortic arch level. This is well above the mackenzie. The re is significant respiratory motion degradation. Mild interstitial edema or infiltrate could be pres ent. No diffuse pulmonary edema pattern suspected. No peripheral mass or consolidation. Heart size within normal limits. Vasculature is difficult to assess. No measurable pleural effusion and no pneumothorax. No acute bony abnormality seen. No acute aortic findings suspected. IMPRESSION: Endotracheal tube in good position. Remainder the chest is difficult to assess due to the substantial motion. No gross pulmonary edema or focal consolidation.
--- NOTE | 2019-03-31 10:30 | RAD REPORT ---
EXAM DESCRIPTION: CT - Head Brain Wo Cont - 03/31/2019 6:02 am CLINICAL HISTORY: Confusion, vomiting, recent hemorrhagic stroke COMPARISON: 03/02/2019. TECHNIQUE: CT HEAD WITHOUT IV CONTRAST on 03/31/2019 3:08 AM DAIRY NUTRITION CONSULTANT This exam was performed according to our departmental dose-optimization program, which includes autom ated exposure control, adjustment of the mA and/or kV according to patient size and/or use of iterati ve reconstruction technique. FINDINGS: There is no acute hemorrhage, mass effect or midline shift. Aldrich-white differentiation is preserved. There is no hydrocephalus. There is no significant volume loss for age. The calvarium is intact. Orbits and globes are unremarkable. The paranasal sinuses are clear. Mastoid air cells are clear. IMPRESSION: No acute intracranial findings. Electronically signed by: Fredis Bal MD 03/31/2019 3:53 AM DAIRY NUTRITION CONSULTANT Due to temporary technical issues with the PACS/Fluency reporting system, reports are being signed by the in house radiologist as a courtesy to ensure prompt reporting. The interpreting radiologist is f ully responsible for the content of the report.
== END 2019-03-31 06:20 | disposition short-term general hospital (02) ==
LOC: ER 02:59
PROC: 0BH17EZ Insertion of Endotracheal Airway into Trachea, Via Natural or Artificial Opening (ICD-10-PCS; principal; 2019-03-31)
PROC: 06HM33Z Insertion of Infusion Device into Right Femoral Vein, Percutaneous Approach (ICD-10-PCS; 2019-03-31)
DX: K70.31 Alcoholic cirrhosis of liver with ascites (principal); I85.11 Secondary esophageal varices with bleeding; D50.0 Iron deficiency anemia secondary to blood loss (chronic); F10.20 Alcohol dependence, uncomplicated
CPT/HCPCS: 87040 ×2; 85025; 80048; 36415; 80320; 82140; 86900; 86850; 85610; 86901; 80076; 85730; 83690; 86922 ×2; 70450; 71045; 94002; 99291; 99292; 31500; 36556; J2550; J0330; J2354; J2704; C9113; J2250; J1170; P9035; P9016; P9059; J7040 ×2; J7030 ×2; 96361; 96374; 96375

== ENCOUNTER 2019-07-01 19:17 | Emergency (ER) | payer OTHER ==
[2019-07-01 19:53] LABS: Absolute Lymphocytes (CBC) 0.5 K/uL (0.7-4.9); Basophils % 0.3 % (0-1.3); Hematocrit 23.3 % (39.6-49.0); MPV 7.1 fL (7.6-11.3); RBC Red Blood Cell Count 2.24 M/uL (4.33-5.43)
--- OUTSIDE RECORDS SUMMARY | 2019-07-01 19:58 | XMS REPORT ---
:1965 [facility] [address] [place] [address] Care Team Providers Name Role Phone KAYLA DILLARD Unavailable Unavailable THA ALMAGUER I. Unavailable Unavailable PAULA WHATLEY Unavailable Unavailable PRASANNA VENCES Unavailable Unavailable MICK RAHMAN Unavailable Unavailable Payers Payer Name Policy Type Policy Number Effective Date Expiration Date Problems This patient has no known problems. Allergies, Adverse Reactions, Alerts Allergy Allergy Status Severity Reaction(s) Onset Inactive Treating Comments Name Type Date Date Clinician No Known DA Active U 2019-02 Allergies -15 00:00:0 0 Medications This patient has no known medications. Results Test Description Test Time Test Comments Text Results Atomic Results Result Comments GLUBED 2019-06-11 15:42:00 Test Item Value Reference Range Comments GLUBED (test code=GLUBED) 170 MG/DL 70-105 BASIC METABOLIC [id number] 07:38:00 Test Item Value Reference Range Comments SODIUM (test code=NA) 132 MMOL/L 136-143 POTASSIUM (test code=K) 3.9 MMOL/L 3.5-5.1 CHLORIDE (test code=CL) 105 MMOL/L 98-107 CARBON DIOXIDE (test 21 mmol/L 24-31 code=CO2) GLUCOSE (test code=GLU) 93 mg/dL 70-104 BLOOD UREA NITROGEN (test 13.8 MG/DL 7.0-21.0 code=BUN) GLOMERULAR FILTRATION >=60 max estimate >60 The estimated glomerular RATE (test code=GFR) filtration rate is computed usingpatient race, age (>18), sex, and serum creatinine. If anyof the needed data elements are missing the Laboratory cannot compute an estimation of the glomerular filtration rate. CREATININE (test 1.0 mg/dL 0.8-1.5 code=CREAT) CALCIUM (test code=CA) 10.0 mg/dL 8.8-10.2 - XR CHEST 1 [id number] 14:09:00Patient Name: ESTUARDO TAYLOR Unit No: [id number] Report Has Been Amended EXAMS: CPT CODE: [id number] XR CHEST 1 V 23257 Addendum -06/10/2019 SIGNED 06/10/2019 ADDENDUM: [id number] RAD/CXR1 Addendum: Please disregard this report. This report belongs to a different patient chart. at 1409 Reported and signed by: Emmanuel Olmstead MD Transcribed: (9926) [email or web address] Report INDICATIONS: pulmonary edema COMPARISON: None. Location: W1 A single portable AP view of the chest demonstrates tracheostomy tube well above the mackenzie. Right-sided central line terminates in the SVC. The heart is enlarged. Hazy bilateral lung opacities are present. No apparent pleural effusion nor pneumothorax. Right chest wall deformity related to multiple old healed fractures. Deformity of the left distal clavicle may be related to acute/ subacute fracture. IMPRESSIONS: 1. Cardiomegaly and hazy lung opacities suggest CHF. 2. Tracheostomy tube in suitable position. at 0904 Reported and signed by: Emmanuel Olmstead MD CC: Sotero Aguilar MD; Volodymyr Longoria MD Technologist: Lukasz Javier Time: DAP (Gy m2): Air Kerma (mGy): Trscr Dt/ Tm: 06/09/2019 (0934) by:[email or web address] PrintedDate/Time: (1413) Name: NATE,[facility] Phys: Sotero Jacques MD [address] DOB: 1965 Age: 53 Sex: M [place] [id number] Loc: ALBINA Exam Date: 06/09/2019 Status: REG REF PH: FAX : PAGE 1 Signed Report- XR CHEST 1 [id number] 14:09:00Patient Name: ESTUARDO TAYLOR Unit No: [id number] Report Has Been Amended EXAMS: CPT CODE: [id number] XR CHEST 1 V 42841 Addendum - SIGNED 06/10/2019 ADDENDUM: [id number] RAD /CXR1 Addendum: Please disregard this report. This report belongs to a different patient chart. at 1409 Reported and signed by: Emmanuel Olmstead MD Transcribed: 06/10/2019 (1409) [email or web address] Addendum - 06/10/2019 SIGNED 06/10/2019 ADDENDUM: [id number] RAD/CXR1 Addendum: Please disregard this report. This report belongs to a different patient chart. at 1409 Reported and signed by: Emmanuel Olmstead MD Transcribed: 2019 (1409) [email or web address] Report INDICATIONS: pulmonary edema COMPARISON: None. Location: W1 A single portable AP view of the chest demonstrates tracheostomy tube well above the mackenzie. Right-sided central line terminates in the SVC. The heart is enlarged. Hazy bilateral lung opacities are present. No apparent pleural effusion nor pneumothorax. Right chest wall deformity related to multiple old healed fractures. Deformity of the left distal clavicle may be related to acute/subacute fracture. IMPRESSIONS: 1. Cardiomegaly and hazy lung opacities suggest CHF. 2. Tracheostomy tube in suitable position. [facility] Sotero Jacques MD [address] DOB: 1965 Age: 53 Sex: [place] [address] Loc: ALBINA Exam Date: 06/09/2019 Status: REG REF PH: FAX: PAGE 1 Signed Report ( CONTINUED) Patient Name: ESTUARDO TAYLOR Unit No: [id number] Report Has Been Amended EXAMS: CPT CODE: [id number] CHEST 1 V 10457 <Continued> at 0934 Reported and signed by: Emmanuel Olmstead MD CC: Sotero Aguilar MD; Volodymyr Longoria MD Technologist: Lukasz Javier Time: DAP (Gy m2): Air Kerma (mGy): Trscr Dt/Tm: 2019 (0934) by:[email or web address] Printed Date/Time: 06/10/2019 (8373) Name: ESTUARDO TAYLOR [facility] Phys: Sotero Jacques MD [address] : 1965 Age : 53 Sex: [place] [address] : ALBINA Exam Date: 06/09/2019 Status: REG REF PH: FAX: PAGE 2 Signed Report- XR CHEST 1 [id number] 14:09:00Patient Name: ESTUARDO TAYLOR Unit No: [id number] Report Has Been Amended EXAMS: CPT CODE: [id number] XR CHEST 1 V 41959 Addendum -06/10/2019 SIGNED 06/10/2019 ADDENDUM: [id number] RAD/CXR1 Addendum: Please disregard this report. This report belongs to a different patient chart. at 1409 Reported and signed by: Emmanuel Olmstead MD Transcribed: (1409) [email or web address] Addendum - 06/10/2019 SIGNED 06/10/2019 ADDENDUM: [id number] RAD/CXR1 Addendum: Please disregard this report. This report belongs to a different patient chart. at 1409 Reported and signed by: Emmanuel Olmstead MD Transcribed: 06/10/2019 (1409) [email or web address] Addendum - 06/10/2019 SIGNED 06/10/2019 ADDENDUM: [id number] RAD/CXR1 Addendum: Please disregard this report. This report belongs to a different patient chart. at 1409 Reported and signed by: Emmanuel Olmstead MD Transcribed: 06/10/2019 (1409) Vicenta Report INDICATIONS: pulmonary edema COMPARISON: None. Location: W1 A single portable AP view of the chest demonstrates tracheostomy tube well above the mackenzie. Right-sided central line terminates in the Name: ESTUARDO TAYLOR [facility] Phys: ANAA - Sotero Aguilar MD [address] : 1965 Age: 53 Sex: [place] [address] Loc: P.PSCLIEN Exam Date: 06/09/2019 Status: REG REF PH: FAX: PAGE 1 Signed Report (CONTINUED) Patient Name: ESTUARDO TAYLOR Unit No: [id number] Report Has Been Amended EXAMS: CPT CODE: [id number] XR CHEST 1 V 87447 <Continued> SVC. The heart is enlarged. Hazy bilateral lung opacities are present. No apparent pleural effusion nor pneumothorax. Right chest wall deformity related to multiple old healed fractures. Deformity of the left distal clavicle may be related to acute/subacute fracture. IMPRESSIONS: 1. Cardiomegaly and hazy lung opacities suggest CHF. 2. Tracheostomy tube in suitable position. at 0934 Reported and signed by: Emmanuel Olmstead MD CC: Sotero Aguilar MD; Volodymyr Longoria MD Technologist: Lukasz Javier Time: DAP (Gy m2): Air Kerma (mGy): Trscr Dt/Tm: 06/09/2019 (0920) by: [email or web address] Printed Date/Time: 06/10/2019 (4132) [facility] S[facility] Jacques MD [address] DOB: 1965 Age: 53 Sex: [place] [address] Loc: ALBINA Exam Date: Status: REG REF PH: FAX: PAGE 2 Signed Report- XR CHEST 1 [id number] 14:09:00Patient Name: ESTUARDO TAYLOR Unit No: [id number] Report Has Been Amended EXAMS: CPT CODE: [id number] XR CHEST 1 V 66855 Addendum -06/10/2019 SIGNED 06/10/2019 ADDENDUM: [id number] RAD/CXR1 Addendum: Please disregard this report. This report belongs to a different patient chart. Electronically Signed by Emmanuel Olmstead MD on 2019 at 1409 Reported and signed by: Emmanuel Olmstead MD Transcribed: 06/10/2019 (1409) [email or web address] Addendum - 06/10/2019 SIGNED 06/10/2019 ADDENDUM: [id number] RAD/CXR1 Addendum: Please disregard this report. This report belongs to a different patient chart. Electronically Signed by Emmanuel Olmstead MD on at 1409 Reported and signed by: Emmanuel Olmstead MD Transcribed: 06/10/2019 (1409) [email or web address] Addendum - 06/10/2019 SIGNED 06/10/2019 ADDENDUM: [id number] RAD/CXR1 Addendum: Please disregard this report. This report belongs to a different patient chart. at 1409 Reported and signed by: Emmanuel Olmstead MD Transcribed: 06/10/2019 (1409) [email or web address] Addendum - 06/10/2019 SIGNED 06/10/2019 ADDENDUM:[id number] RAD/CXR1 Addendum: Please disregard this report. This report belongs to a different patient chart. [facility]: Sotero Jacques MD [address] DOB: 1965 Age: 53 Sex: M [place] [address] Loc: P.PSCLIEN Exam Date: 06/09/2019 Status: REG REF PH: FAX: PAGE 1 Signed Report (CONTINUED) Patient Name: ESTUARDO TAYLOR Unit No: [id number] Report Has Been Amended EXAMS: CPT CODE: [id number] XR CHEST1 V 95051 <Continued> at 1409 Reported and signed by: Emmanuel Olmstead MD Transcribed: 06/10/2019 (1409) [email or web address] Report INDICATIONS : pulmonary edema COMPARISON: None. Location: W1 A single portable AP view of the chest demonstrates tracheostomy tube well above the mackenzie. Right-sided central line terminates in the SVC. The heart is enlarged. Hazy bilateral lung opacities are present. No apparent pleural effusion nor pneumothorax. Right chest wall deformity related to multiple old healed fractures. Deformity of the left distal clavicle may be related to acute/subacute fracture. IMPRESSIONS: 1. Cardiomegaly and hazy lung opacities suggest CHF. 2. Tracheostomy tube in suitable position. Electronically Signedby Emmanuel Olmstead MD on 06/09/2019 at 0934 Reported and signed by: Emmanuel Olmstead MD CC: Sotero Aguilar MD; Volodymyr Longoria MD Technologist: Lukasz Javier Time: DAP (Gy m2): Air Kerma (mGy): TrscrDt/Tm: 06/09/2019 (0934) by:[email or web address] Printed Date/Time: 06/10/2019 (5824) Name: ESTUARDO TAYLOR [facility] Phys: Sotero Jacques MD [address] DOB: 1965 Age: 53 Sex: M [place] [address] Loc: P.PSCLILILA Exam Date: 06/09/2019 Status: REG REF PH: FAX: PAGE 2 Signed Report- XR CHEST 1 [id number] 14:09:00Patient Name: ESTUARDO TAYLOR Unit No: [id number] Report Has Been Amended EXAMS: CPT CODE: [id number] XR CHEST 1 V 28309 Addendum -06/10/2019 SIGNED 06/10/2019 ADDENDUM: [id number] RAD/CXR1 Addendum: Please disregard this report. This report belongs to a different patient chart. at 1409 Reported and signed by: Emmanuel Olmstead MD Transcribed: (1409) [email or web address] Addendum - 06/10/2019 SIGNED 06/10/2019 ADDENDUM: [id number] RAD/CXR1 Addendum: Please disregard this report. This report belongs to a different patient chart. at 1409 Reported and signed by: Emmanuel Olmstead MD Transcribed: 06/10/2019 (1409) [email or web address] Addendum - 06/10/2019 SIGNED 06/10/2019 ADDENDUM: [id number] RAD/CXR1 Addendum: Please disregard this report. This report belongs to a different patient chart. at 1409 Reported and signed by: Emmanuel Olmstead MD Transcribed: 06/10/2019 (1409) [email or web address] Addendum - 06/10/2019 SIGNED 06/10/2019 ADDENDUM:[id number] RAD/CXR1 Addendum: Please disregard this report. This report belongs to a different patient chart. Name: ESTUARDO TAYLOR [facility] Phys: Sotero Jacques MD [address] : 1965 Age: 53 Sex: [place] [address] Loc: PDUSTINALEX Exam Date: 2019 Status: REG REF PH: FAX: PAGE 1 Signed Report (CONTINUED) Patient Name: ESTUARDO TAYLOR Unit No: [id number] Report Has Been Amended EXAMS: CPT CODE: [id number] XR CHEST1 V 98674 <Continued> at 1409 Reported and signed by: Emmanuel Olmstead MD Transcribed: 06/10/2019 (1409) [email or web address] Addendum - 06/10/2019 SIGNED 06/10/2019 ADDENDUM: [id number] RAD/CXR1 Addendum: Please disregard this report. This report belongs to a different patient chart. * * at 1409 Reported and signed by: Emmanuel Olmstead MD Transcribed: 06/10 (1409) Vicenta Report INDICATIONS: pulmonary edema COMPARISON: None. Location: W1 A single portable AP view of the chest demonstrates tracheostomy tube well above the mackenzie. Right-sided central line terminates in the SVC. The heart is enlarged. Hazy bilateral lung opacities are present. No apparent pleural effusion nor pneumothorax. Right chest wall deformity related to multiple old healed fractures. Deformity of the left distal clavicle may be related to acute/subacute fracture. IMPRESSIONS: 1. Cardiomegaly and hazy lung opacities suggest CHF. 2. Tracheostomy tube in suitableposition. Electronically Signed by Emmanuel Olmstead MD on at 0934 Reported and signed by: Emmanuel Olmstead MD Name: ESTUARDO TAYLOR [facility] Phys: Sotero Jacques MD [address] : 1965 Age: 53 Sex: [place] [address] Loc: P.PSCLIEN Exam Date: 06/09/2019 Status: REG REF PH: FAX: PAGE 2 Signed Report (CONTINUED)Patient Name: ESTUARDO TAYLOR Unit No: [id number] Report Has Been Amended EXAMS: CPT CODE: [id number] XR CHEST 1 V 09194 & lt;Continued> CC: Sotero Aguilar MD; Volodymyr Longoria MD Technologist: Lukasz Javier Time: DAP (Gy m2): Air Kerma (mGy): Trscr Dt/Tm: 06/09/2019 (0934) by:Vicenta Printed Date/Time: 06/10/2019 (1069) Name: ESTUARDO TAYLOR [facility] Phys: Sotero Jacques MD [address] : 1965 Age: 53 Sex: [place] [address] Loc: ALBINA Exam Date: 06/09/2019 Status: REG REF PH: FAX: PAGE 3 Signed [id number] 12:19:00 Test Item Value Reference Range Comments GLUBED (test code=GLUBED) 103 MG/DL 70-105 [id number] 12:19:00 Test Item Value Reference Range Comments GLUBED (test code=GLUBED) 83 MG/DL 70-105 [id number] 12:19:00 Test Item Value Reference Range Comments GLUBED (test code=GLUBED) 113 MG/DL 70-105 BASIC METABOLIC [id number] 06:25:00 Test Item Value Reference Range Comments SODIUM (test code=NA) 130 MMOL/L 136-143 POTASSIUM (test code=K) 4.0 MMOL/L 3.5-5.1 CHLORIDE (test code=CL) 105 MMOL/L 98-107 CARBON DIOXIDE (test 20 mmol/L 24-31 code=CO2) GLUCOSE (test code=GLU) 75 mg/dL 70-104 BLOOD UREA NITROGEN (test 12.9 MG/DL 7.0-21.0 code=BUN) GLOMERULAR FILTRATION >=60 max estimate >60 The estimated glomerular RATE (test code=GFR) filtration rate is computed usingpatient race, age (>18), sex, and serum creatinine. If anyof the needed data elements are missing the Laboratory cannot compute an estimation of the glomerular filtration rate. CREATININE (test 1.0 mg/dL 0.8-1.5 code=CREAT) CALCIUM (test code=CA) 9.6 mg/dL 8.8-10.2 COMPREHENSIVE METABOLIC [id number] 16:23:00 Test Item Value Reference Range Comments SODIUM (test code=NA) 128 MMOL/L 136-143 POTASSIUM (test code=K) 4.4 MMOL/L 3.5-5.1 CHLORIDE (test code=CL) 104 MMOL/L 98-107 CARBON DIOXIDE (test 18 mmol/L 24-31 code=CO2) GLUCOSE (test code=GLU) 120 mg/dL 70-104 BLOOD UREA NITROGEN (test 12.5 MG/DL 7.0-21.0 code=BUN) GLOMERULAR FILTRATION >=60 max estimate >60 The estimated glomerular RATE (test code=GFR) filtration rate is computed usingpatient race, age (>18), sex, and serum creatinine. If anyof the needed data elements are missing the Laboratory cannot compute an estimation of the glomerular filtration rate. CREATININE (test 0.9 mg/dL 0.8-1.5 code=CREAT) TOTAL PROTEIN (test 5.7 g/dL 6.3-8.3 code=PROT) ALBUMIN (test code=ALB) 1.8 G/DL 3.5-5.0 CALCIUM (test code=CA) 9.8 mg/dL 8.8-10.2 BILIRUBIN TOTAL (test 3.6 mg/dL 0.2-1.0 code=BILT) SGOT/AST (test code=AST) 44 IU/L 10-34 SGPT/ALT (test code=ALT) 21 U/L 10-44 ALKALINE PHOSPHATASE 265 U/L 45-120 (test code=ALKP) PROTHROMBIN [id number] 16:22:00 Test Item Value Reference Range Comments PROTHROMBIN TIME PATIENT 29.9 SECONDS 10.3-12.9 (test code=PTP) INTERNATIONAL NORMAL 2.53 INR UNIT 0.9-1.11 The INR is useful [...] heart valves; 2.5-3.5recurrent systemic embolism. CBC W/AUTO [id number] 16:17:00 Test Item Value Reference Range Comments WHITE BLOOD CELL (test code=WBC) 5.0 x10 3/uL 4.8-10.8 RED BLOOD CELL (test code=RBC) 2.31 x10 6/uL 4.70-6.10 HEMOGLOBIN (test code=HGB) 8.2 g/dL 14.5-20 HEMATOCRIT (test code=HCT) 25.6 % 42.0-52.0 MEAN CELL VOLUME (test code=MCV) 110.8 fL 80.0-94.0 MEAN CELL HGB (test code=MCH) 35.5 pg 27-31 MEAN CELL HGB CONCENTRATION (test code=MCHC) 32.0 G/DL 33-36.5 RED CELL DISTRIBUTION WIDTH (test code=RDW) 16.7 % 12.9-16.9 PLATELET COUNT (test code=PLT) 42 150-440 MEAN PLATELET VOLUME (test code=MPV) 10.0 fL 8.9-12.4 NEUTROPHIL % (test code=NT%) 60.9 % 42.2-75.2 LYMPHOCYTE % (test code=LY%) 11.7 % 20.5-51.1 MONOCYTE % (test code=MO%) 13.9 % 1.7-9.3 EOSINOPHIL % (test code=EO%) 11.3 % 0.0-7.0 BASOPHIL % (test code=BA%) 1.4 % 0-2.5 NEUTROPHIL # (test code=NT#) 3.02 x10 3/uL 1.80-7.70 LYMPHOCYTE # (test code=LY#) 0.58 x10 3/uL 1.00-4.80 MONOCYTE # (test code=MO#) 0.69 x10 3/uL 0.00-0.80 EOSINOPHIL # (test code=EO#) 0.56 x10 3/uL 0.00-0.45 BASOPHIL # (test code=BA#) 0.07 x10 3/uL 0.0-0.20 [id number] 16:12:00 Test Item Value Reference Range Comments GLUBED (test code=GLUBED) 127 MG/DL 70-105 [id number] 12:10:00 Test Item Value Reference Range Comments GLUBED (test code=GLUBED) 128 MG/DL 70-105 [id number] 12:10:00 Test Item Value Reference Range Comments GLUBED (test code=GLUBED) 86 MG/DL 70-105 - XR CHEST 1 [id number] 11:10:00Patient Name: ESTUARDO TAYLOR Unit No: [id number] EXAMS: CPT CODE: [id number] XR CHEST 1 V 93246 R16 EXAM: - XR CHEST 1 V HISTORY: SOB COMPARISON: 05/29/2019 FINDINGS: Right peripherally inserted central catheter tip in unchanged position. The lungs are clear. No pleural effusion or pneumothorax. The cardiac silhouette is within normal limits. No acute osseous abnormalities. IMPRESSION : Improved aeration in both lungs. No acute cardiopulmonary disease. at 1110 Reported and signed by: WILTON THURSTON M.D. CC: Volodymyr Longoria MD Technologist: Lukasz Javier Time: DAP ( Gy m2): Air Kerma (mGy): Trscr Dt/Tm: 06/09/2019 (1110) by: [email or web address] Printed Date/Time: 06/09/2019 (1113) Name: ESTUARDO TAYLOR [facility] Phys: CARLOS A. - Volodymyr Longoria MD [address] : 1965 Age: 53 Sex: M [place] [address] Loc: P.PSCLIEN Exam Date: Status: REG REF PH: FAX: PAGE 1 Signed Report- XR CHEST 1 [id number] 09:34:00Patient Name: ESTUARDO TAYLOR Unit No: [id number] EXAMS: CPT CODE: [id number] XR CHEST 1 V 81259 INDICATIONS: pulmonary edema COMPARISON: None. Location: W1 A single portable AP view of the chest demonstrates tracheostomy tube well above the mackenzie. Right-sided central line terminates in the SVC. The heart is enlarged. Hazy bilateral lung opacities are present. No apparent pleural effusion nor pneumothorax. Right chest wall deformity related to multiple old healed fractures. Deformity of the left distal clavicle may be related to acute/subacute fracture. IMPRESSIONS: 1. Cardiomegaly and hazy lung opacities suggest CHF. 2. Tracheostomy tube in suitable position. at 0934 Reported and signed by: Emmanuel Olmstead MD CC: Sotero Aguilar MD; Volodymyr Longoria MD Technologist: Lukasz Hirsch Fluoro Time: DAP (Gy m2): Air Kerma (mGy): Trscr Dt/Tm: 06/09/2019 (0934) by:[email or web address] Printed Date/Time: 06/09 (0923) Name: ESTUARDO TAYLOR [facility] Phys: Sotero Jacques MD [address] : 1965 Age: 53 Sex: [place] [address] Loc: ALBINA Exam Date: 06/09/2019 Status: REG REF PH: FAX: PAGE 1 Signed [id number] 04:57:00 Test Item Value Reference Range Comments GLUBED (test code=GLUBED) 357 MG/DL 70-105 [id number] 04:57:00 Test Item Value Reference Range Comments GLUBED (test code=GLUBED) 148 MG/DL 70-105 [id number] 04:57:00 Test Item Value Reference Range Comments GLUBED (test code=GLUBED) 120 MG/DL 70-105 [id number] 23:38:00 Test Item Value Reference Range Comments GLUBED (test code=GLUBED) 108 MG/DL 70-105 [id number] 23:34:00 Test Item Value Reference Range Comments GLUBED (test code=GLUBED) 187 MG/DL 70-105 [id number] 23:34:00 Test Item Value Reference Range Comments GLUBED (test code=GLUBED) 128 MG/DL 70-105 [id number] 23:34:00 Test Item Value Reference Range Comments GLUBED (test code=GLUBED) 137 MG/DL 70-105 [id number] 23:34:00 Test Item Value Reference Range Comments GLUBED (test code=GLUBED) 77 MG/DL 70-105 CBC W/AUTO [id number] 07:19:00 Test Item Value Reference Range Comments WHITE BLOOD CELL (test code=WBC) 5.0 x10 3/uL 4.8-10.8 RED BLOOD CELL (test code=RBC) 2.30 x10 6/uL 4.70-6.10 HEMOGLOBIN (test code=HGB) 8.1 g/dL 14.5-20 HEMATOCRIT (test code=HCT) 25.5 % 42.0-52.0 MEAN CELL VOLUME (test code=MCV) 110.9 fL 80.0-94.0 MEAN CELL HGB (test code=MCH) 35.2 pg 27-31 MEAN CELL HGB CONCENTRATION (test code=MCHC) 31.8 G/DL 33-36.5 RED CELL DISTRIBUTION WIDTH (test code=RDW) 17.0 % 12.9-16.9 PLATELET COUNT (test code=PLT) 42 150-440 MEAN PLATELET VOLUME (test code=MPV) 9.2 fL 8.9-12.4 NEUTROPHIL % (test code=NT%) 52.8 % 42.2-75.2 LYMPHOCYTE % (test code=LY%) 14.0 % 20.5-51.1 MONOCYTE % (test code=MO%) 14.0 % 1.7-9.3 EOSINOPHIL % (test code=EO%) 16.8 % 0.0-7.0 BASOPHIL % (test code=BA%) 1.4 % 0-2.5 NEUTROPHIL # (test code=NT#) 2.63 x10 3/uL 1.80-7.70 LYMPHOCYTE # (test code=LY#) 0.70 x10 3/uL 1.00-4.80 MONOCYTE # (test code=MO#) 0.70 x10 3/uL 0.00-0.80 EOSINOPHIL # (test code=EO#) 0.84 x10 3/uL 0.00-0.45 BASOPHIL # (test code=BA#) 0.07 x10 3/uL 0.0-0.20 [id number] 20:03:00 Test Item Value Reference Range Comments GLUBED (test code=GLUBED) 162 MG/DL 70-105 [id number] 20:03:00 Test Item Value Reference Range Comments GLUBED (test code=GLUBED) 122 MG/DL 70-105 BASIC METABOLIC [id number] 05:29:00 Test Item Value Reference Range Comments SODIUM (test code=NA) 135 MMOL/L 136-143 POTASSIUM (test code=K) 3.8 MMOL/L 3.5-5.1 CHLORIDE (test code=CL) 108 MMOL/L 98-107 CARBON DIOXIDE (test 21 mmol/L 24- code=CO2) GLUCOSE (test code=GLU) 103 mg/dL 70-104 BLOOD UREA NITROGEN (test 11.3 MG/DL 7.0-21.0 code=BUN) GLOMERULAR FILTRATION >=60 max estimate >60 The estimated glomerular RATE (test code=GFR) filtration rate is computed usingpatient race, age (>18), sex, and serum creatinine. If anyof the needed data elements are missing the Laboratory cannot compute an estimation of the glomerular filtration rate. CREATININE (test 0.9 mg/dL 0.8-1.5 code=CREAT) CALCIUM (test code=CA) 9.6 mg/dL 8.8-10.2 [id number] 05:29:00 Test Item Value Reference Range Comments PHOSPHOROUS (test code=PHOS) 3.1 mg/dL 2.7-4.5 [id number] 05:29:00 Test Item Value Reference Range Comments MAGNESIUM (test code=MAG) 1.4 mg/dL 1.4-2.6 [id number] 12:07:00 Test Item Value Reference Range Comments GLUBED (test code=GLUBED) 162 MG/DL 70-105 [id number] 12:07:00 Test Item Value Reference Range Comments GLUBED (test code=GLUBED) 114 MG/DL 70-105 [id number] 12:07:00 Test Item Value Reference Range Comments GLUBED (test code=GLUBED) 88 MG/DL 70-105 [id number] 16:52:00 Test Item Value Reference Range Comments GLUBED (test code=GLUBED) 166 MG/DL 70-105 [id number] 11:47:00 Test Item Value Reference Range Comments GLUBED (test code=GLUBED) 166 MG/DL 70-105 [id number] 10:15:00 Test Item Value Reference Range Comments GLUBED (test code=GLUBED) 99 MG/DL 70-105 [id number] 10:15:00 Test Item Value Reference Range Comments GLUBED (test code=GLUBED) 122 MG/DL 70-105 [id number] 07:47:00 Test Item Value Reference Range Comments GLUBED (test code=GLUBED) 106 MG/DL 70-105 [id number] 16:17:00 Test Item Value Reference Range Comments GLUBED (test code=GLUBED) 75 MG/DL 70-105 [id number] 16:16:00 Test Item Value Reference Range Comments GLUBED (test code=GLUBED) 123 MG/DL 70-105 [id number] 16:15:00 Test Item Value Reference Range Comments GLUBED (test code=GLUBED) 146 MG/DL 70-105 [id number] 16:15:00 Test Item Value Reference Range Comments GLUBED (test code=GLUBED) 140 MG/DL 70-105 COMPREHENSIVE METABOLIC [id number] 06:55:00 Test Item Value Reference Range Comments SODIUM (test code=NA) 135 MMOL/L 136-143 POTASSIUM (test code=K) 3.6 MMOL/L 3.5-5.1 CHLORIDE (test code=CL) 108 MMOL/L 98-107 CARBON DIOXIDE (test 21 mmol/L 24-31 code=CO2) GLUCOSE (test code=GLU) 94 mg/dL 70-104 BLOOD UREA NITROGEN (test 10.8 MG/DL 7.0-21.0 code=BUN) GLOMERULAR FILTRATION >=60 max estimate >60 The estimated glomerular RATE (test code=GFR) filtration rate is computed usingpatient race, age (>18), sex, and serum creatinine. If anyof the needed data elements are missing the Laboratory cannot compute an estimation of the glomerular filtration rate. CREATININE (test 0.9 mg/dL 0.8-1.5 code=CREAT) TOTAL PROTEIN (test 5.7 g/dL 6.3-8.3 code=PROT) ALBUMIN (test code=ALB) 1.8 G/DL 3.5-5.0 CALCIUM (test code=CA) 8.7 mg/dL 8.8-10.2 BILIRUBIN TOTAL (test 3.7 mg/dL 0.2-1.0 code=BILT) SGOT/AST (test code=AST) 42 IU/L 10-34 SGPT/ALT (test code=ALT) 23 U/L 10-44 ALKALINE PHOSPHATASE 264 U/L 45-120 (test code=ALKP) [id number] 06:55:00 Test Item Value Reference Range Comments MAGNESIUM (test code=MAG) 1.6 mg/dL 1.4-2.6 [id number] 15:09:00 Test Item Value Reference Range Comments GLUBED (test code=GLUBED) 94 MG/DL 70-105 [id number] 15:08:00 Test Item Value Reference Range Comments GLUBED (test code=GLUBED) 130 MG/DL 70-105 CBC W/AUTO [id number] 06:30:00 Test Item Value Reference Range Comments WHITE BLOOD CELL (test code=WBC) 5.5 x10 3/uL 4.8-10.8 RED BLOOD CELL (test code=RBC) 2.37 x10 6/uL 4.70-6.10 HEMOGLOBIN (test code=HGB) 8.4 g/dL 14.5-20 HEMATOCRIT (test code=HCT) 26.5 % 42.0-52.0 MEAN CELL VOLUME (test code=MCV) 111.8 fL 80.0-94.0 MEAN CELL HGB (test code=MCH) 35.4 pg 27-31 MEAN CELL HGB CONCENTRATION (test code=MCHC) 31.7 G/DL 33-36.5 RED CELL DISTRIBUTION WIDTH (test code=RDW) 18.4 % 12.9-16.9 PLATELET COUNT (test code=PLT) 41 150-440 MEAN PLATELET VOLUME (test code=MPV) 10.5 fL 8.9-12.4 NEUTROPHIL % (test code=NT%) 59.7 % 42.2-75.2 LYMPHOCYTE % (test code=LY%) 13.2 % 20.5-51.1 MONOCYTE % (test code=MO%) 11.2 % 1.7-9.3 EOSINOPHIL % (test code=EO%) 13.4 % 0.0-7.0 BASOPHIL % (test code=BA%) 1.4 % 0-2.5 NEUTROPHIL # (test code=NT#) 3.29 x10 3/uL 1.80-7.70 LYMPHOCYTE # (test code=LY#) 0.73 x10 3/uL 1.00-4.80 MONOCYTE # (test code=MO#) 0.62 x10 3/uL 0.00-0.80 EOSINOPHIL # (test code=EO#) 0.74 x10 3/uL 0.00-0.45 BASOPHIL # (test code=BA#) 0.08 x10 3/uL 0.0-0.20 [id number] 12:36:00 Test Item Value Reference Range Comments GLUBED (test code=GLUBED) 142 MG/DL 70-105 [id number] 12:36:00 Test Item Value Reference Range Comments GLUBED (test code=GLUBED) 127 MG/DL 70-105 [id number] 12:36:00 Test Item Value Reference Range Comments GLUBED (test code=GLUBED) 118 MG/DL 70-105 CREATINE KINASE (CK)2019-06-01 09:11:00 Test Item Value Reference Range Comments CREATINE KINASE (CK) (test code=CK) 26 U/L 24-204 BASIC METABOLIC [id number] 07:07:00 Test Item Value Reference Range Comments SODIUM (test code=NA) 146 MMOL/L 136-143 POTASSIUM (test code=K) 3.9 MMOL/L 3.5-5.1 CHLORIDE (test code=CL) 110 MMOL/L 98-107 CARBON DIOXIDE (test 20 mmol/L 24-31 code=CO2) GLUCOSE (test code=GLU) 92 mg/dL 70-104 BLOOD UREA NITROGEN (test 13.2 MG/DL 7.0-21.0 code=BUN) GLOMERULAR FILTRATION >=60 max estimate >60 The estimated glomerular RATE (test code=GFR) filtration rate is computed usingpatient race, age (>18), sex, and serum creatinine. If anyof the needed data elements are missing the Laboratory cannot compute an estimation of the glomerular filtration rate. CREATININE (test 0.7 mg/dL 0.8-1.5 code=CREAT) CALCIUM (test code=CA) 9.5 mg/dL 8.8-10.2 [id number] 07:07:00 Test Item Value Reference Range Comments PHOSPHOROUS (test code=PHOS) 3.3 mg/dL 2.7-4.5 [id number] 07:07:00 Test Item Value Reference Range Comments MAGNESIUM (test code=MAG) 1.5 mg/dL 1.4-2.6 CBC W/AUTO [id number] 06:49:00 Test Item Value Reference Range Comments WHITE BLOOD CELL (test code=WBC) 4.9 x10 3/uL 4.8-10.8 RED BLOOD CELL (test code=RBC) 2.32 x10 6/uL 4.70-6.10 HEMOGLOBIN (test code=HGB) 8.1 g/dL 14.5-20 HEMATOCRIT (test code=HCT) 25.9 % 42.0-52.0 MEAN CELL VOLUME (test code=MCV) 111.6 fL 80.0-94.0 MEAN CELL HGB (test code=MCH) 34.9 pg 27-31 MEAN CELL HGB CONCENTRATION (test code=MCHC) 31.3 G/DL 33-36.5 RED CELL DISTRIBUTION WIDTH (test code=RDW) 18.5 % 12.9-16.9 PLATELET COUNT (test code=PLT) 40 150-440 MEAN PLATELET VOLUME (test code=MPV) 11.2 fL 8.9-12.4 NEUTROPHIL % (test code=NT%) 65.2 % 42.2-75.2 LYMPHOCYTE % (test code=LY%) 12.4 % 20.5-51.1 MONOCYTE % (test code=MO%) 10.2 % 1.7-9.3 EOSINOPHIL % (test code=EO%) 9.6 % 0.0-7.0 BASOPHIL % (test code=BA%) 1.2 % 0-2.5 NEUTROPHIL # (test code=NT#) 3.21 x10 3/uL 1.80-7.70 LYMPHOCYTE # (test code=LY#) 0.61 x10 3/uL 1.00-4.80 MONOCYTE # (test code=MO#) 0.50 x10 3/uL 0.00-0.80 EOSINOPHIL # (test code=EO#) 0.47 x10 3/uL 0.00-0.45 BASOPHIL # (test code=BA#) 0.06 x10 3/uL 0.0-0.20 [id number] 16:17:00 Test Item Value Reference Range Comments GLUBED (test code=GLUBED) 92 MG/DL 70-105 [id number] 12:14:00 Test Item Value Reference Range Comments GLUBED (test code=GLUBED) 97 MG/DL 70-105 [id number] 10:56:00 Test Item Value Reference Range Comments GLUBED (test code=GLUBED) 115 MG/DL 70-105 [id number] 10:56:00 Test Item Value Reference Range Comments GLUBED (test code=GLUBED) 143 MG/DL 70-105 PROTHROMBIN [id number] 10:05:00 Test Item Value Reference Range Comments PROTHROMBIN TIME PATIENT 29.3 SECONDS 10.3-12.9 (test code=PTP) INTERNATIONAL NORMAL 2.48 INR UNIT 0.9-1.11 The INR is useful [...] Prosthetic mechanical heart valves; 2.5-3.5recurrent systemic embolism. [id number] 16:38:00 Test Item Value Reference Range Comments GLUBED (test code=GLUBED) 106 MG/DL 70-105 [id number] 11:53:00 Test Item Value Reference Range Comments GLUBED (test code=GLUBED) 136 MG/DL 70-105 [id number] 11:53:00 Test Item Value Reference Range Comments GLUBED (test code=GLUBED) 112 MG/DL 70-105 [id number] 11:53:00 Test Item Value Reference Range Comments GLUBED (test code=GLUBED) 169 MG/DL 70-105 [id number] 11:53:00 Test Item Value Reference Range Comments GLUBED (test code=GLUBED) 127 MG/DL 70-105 [id number] 11:53:00 Test Item Value Reference Range Comments GLUBED (test code=GLUBED) 116 MG/DL 70-105 BASIC METABOLIC [id number] 07:46:00 Test Item Value Reference Range Comments SODIUM (test code=NA) 136 MMOL/L 136-143 POTASSIUM (test code=K) 3.7 MMOL/L 3.5-5.1 CHLORIDE (test code=CL) 109 MMOL/L 98-107 CARBON DIOXIDE (test 21 mmol/L 24-31 code=CO2) GLUCOSE (test code=GLU) 119 mg/dL 70-104 BLOOD UREA NITROGEN (test 11.9 MG/DL 7.0-21.0 code=BUN) GLOMERULAR FILTRATION >=60 max estimate >60 The estimated glomerular RATE (test code=GFR) filtration rate is computed usingpatient race, age (>18), sex, and serum creatinine. If anyof the needed data elements are missing the Laboratory cannot compute an estimation of the glomerular filtration rate. CREATININE (test 0.9 mg/dL 0.8-1.5 code=CREAT) CALCIUM (test code=CA) 9.7 mg/dL 8.8-10.2 CBC W/AUTO [id number] 07:33:00 Test Item Value Reference Range Comments WHITE BLOOD CELL (test code=WBC) 4.2 x10 3/uL 4.8-10.8 RED BLOOD CELL (test code=RBC) 2.16 x10 6/uL 4.70-6.10 HEMOGLOBIN (test code=HGB) 7.7 g/dL 14.5-20 HEMATOCRIT (test code=HCT) 24.5 % 42.0-52.0 MEAN CELL VOLUME (test code=MCV) 113.4 fL 80.0-94.0 MEAN CELL HGB (test code=MCH) 35.6 pg 27-31 MEAN CELL HGB CONCENTRATION (test code=MCHC) 31.4 G/DL 33-36.5 RED CELL DISTRIBUTION WIDTH (test code=RDW) 19.3 % 12.9-16.9 PLATELET COUNT (test code=PLT) 35 150-440 MEAN PLATELET VOLUME (test code=MPV) 10.4 fL 8.9-12.4 NEUTROPHIL % (test code=NT%) 65.0 % 42.2-75.2 LYMPHOCYTE % (test code=LY%) 10.8 % 20.5-51.1 MONOCYTE % (test code=MO%) 13.4 % 1.7-9.3 EOSINOPHIL % (test code=EO%) 8.4 % 0.0-7.0 BASOPHIL % (test code=BA%) 1.2 % 0-2.5 NEUTROPHIL # (test code=NT#) 2.71 x10 3/uL 1.80-7.70 LYMPHOCYTE # (test code=LY#) 0.45 x10 3/uL 1.00-4.80 MONOCYTE # (test code=MO#) 0.56 x10 3/uL 0.00-0.80 EOSINOPHIL # (test code=EO#) 0.35 x10 3/uL 0.00-0.45 BASOPHIL # (test code=BA#) 0.05 x10 3/uL 0.0-0.20 - XR CHEST 1 [id number] 08:34:00Patient Name: ESTUARDO TAYLOR Unit No: [id number] EXAMS: CPT CODE: [id number] XR CHEST 1 V [id number] Examination: Chest 1 view Location code: S17 Comparison: None Discussion: Clinical history is remarkable for sepsis, liver disease, pleural effusion. Cardiac silhouette is enlarged. Right-sided PICC line is present. There is mild central edema. Minimal left base atelectatic change versus infiltrate is present. There is no definable effusion. Impression: Mild edema, left base atelectasis. at 0834 Reported and signed by: CALIXTO LUA M.D. CC: Sotero Aguilar MD; Volodymyr Longoria MD Technologist: Aniya Underwood Fluoro Time: DAP (Gy m2): Air Kerma (mGy): Trscr Dt/Tm: 05/29/2019 (0834) by:[email or web address] Printed Date/Time: 05/29/2019 (0837) Name: ESTUARDO TAYLOR [facility] Phys: Sotero Jacques MD [address] : 1965 Age: 53 Sex: [place] [address] Loc: PPorshaPSCLIEN Exam Date: 05/29/2019 Status: REG REF PH: FAX: PAGE 1 Signed ReportCOMPREHENSIVE METABOLIC [id number] 08:01:00 Test Item Value Reference Range Comments SODIUM (test code=NA) 133 MMOL/L 136-143 POTASSIUM (test code=K) 3.9 MMOL/L 3.5-5.1 CHLORIDE (test code=CL) 108 MMOL/L 98-107 CARBON DIOXIDE (test 20 mmol/L 24-31 code=CO2) GLUCOSE (test code=GLU) 129 mg/dL 70-104 BLOOD UREA NITROGEN (test 12.7 MG/DL 7.0-21.0 code=BUN) GLOMERULAR FILTRATION >=60 max estimate >60 The estimated glomerular RATE (test code=GFR) filtration rate is computed usingpatient race, age (>18), sex, and serum creatinine. If anyof the needed data elements are missing the Laboratory cannot compute an estimation of the glomerular filtration rate. CREATININE (test 0.9 mg/dL 0.8-1.5 code=CREAT) TOTAL PROTEIN (test 5.7 g/dL 6.3-8.3 code=PROT) ALBUMIN (test code=ALB) 1.8 G/DL 3.5-5.0 CALCIUM (test code=CA) 9.6 mg/dL 8.8-10.2 BILIRUBIN TOTAL (test 3.9 mg/dL 0.2-1.0 code=BILT) SGOT/AST (test code=AST) 40 IU/L 10-34 SGPT/ALT (test code=ALT) 23 U/L 10-44 ALKALINE PHOSPHATASE 261 U/L 45-120 (test code=ALKP) [id number] 08:01:00 Test Item Value Reference Range Comments PHOSPHOROUS (test code=PHOS) 2.9 mg/dL 2.7-4.5 [id number] 08:01:00 Test Item Value Reference Range Comments MAGNESIUM (test code=MAG) 1.5 mg/dL 1.4-2.6 CBC W/AUTO [id number] 07:51:00 Test Item Value Reference Range Comments WHITE BLOOD CELL (test code=WBC) 5.0 x10 3/uL 4.8-10.8 RED BLOOD CELL (test code=RBC) 2.22 x10 6/uL 4.70-6.10 HEMOGLOBIN (test code=HGB) 7.9 g/dL 14.5-20 HEMATOCRIT (test code=HCT) 24.8 % 42.0-52.0 MEAN CELL VOLUME (test code=MCV) 111.7 fL 80.0-94.0 MEAN CELL HGB (test code=MCH) 35.6 pg 27-31 MEAN CELL HGB CONCENTRATION (test code=MCHC) 31.9 G/DL 33-36.5 RED CELL DISTRIBUTION WIDTH (test code=RDW) 19.5 % 12.9-16.9 PLATELET COUNT (test code=PLT) 40 150-440 MEAN PLATELET VOLUME (test code=MPV) 10.7 fL 8.9-12.4 NEUTROPHIL % (test code=NT%) 65.2 % 42.2-75.2 LYMPHOCYTE % (test code=LY%) 11.6 % 20.5-51.1 MONOCYTE % (test code=MO%) 13.8 % 1.7-9.3 EOSINOPHIL % (test code=EO%) 7.4 % 0.0-7.0 BASOPHIL % (test code=BA%) 1.0 % 0-2.5 NEUTROPHIL # (test code=NT#) 3.26 x10 3/uL 1.80-7.70 LYMPHOCYTE # (test code=LY#) 0.58 x10 3/uL 1.00-4.80 MONOCYTE # (test code=MO#) 0.69 x10 3/uL 0.00-0.80 EOSINOPHIL # (test code=EO#) 0.37 x10 3/uL 0.00-0.45 BASOPHIL # (test code=BA#) 0.05 x10 3/uL 0.0-0.20 [id number] 23:46:00 Test Item Value Reference Range Comments GLUBED (test code=GLUBED) 121 MG/DL 70-105 [id number] 15:50:00 Test Item Value Reference Range Comments GLUBED (test code=GLUBED) 149 MG/DL 70-105 [id number] 15:50:00 Test Item Value Reference Range Comments GLUBED (test code=GLUBED) 182 MG/DL 70-105 [id number] 15:49:00 Test Item Value Reference Range Comments GLUBED (test code=GLUBED) 110 MG/DL 70-105 [id number] 15:49:00 Test Item Value Reference Range Comments GLUBED (test code=GLUBED) 161 MG/DL 70-105 [id number] 15:20:00 Test Item Value Reference Range Comments GLUBED (test code=GLUBED) 88 MG/DL 70-105 [id number] 15:20:00 Test Item Value Reference Range Comments GLUBED (test code=GLUBED) 89 MG/DL 70-105 [id number] 08:25:00 Test Item Value Reference Range Comments GLUBED (test code=GLUBED) 147 MG/DL 70-105 BASIC METABOLIC [id number] 06:22:00 Test Item Value Reference Range Comments SODIUM (test code=NA) 136 MMOL/L 136-143 POTASSIUM (test code=K) 3.7 MMOL/L 3.5-5.1 CHLORIDE (test code=CL) 109 MMOL/L 98-107 CARBON DIOXIDE (test 20 mmol/L 24-31 code=CO2) GLUCOSE (test code=GLU) 106 mg/dL 70-104 BLOOD UREA NITROGEN (test 9.9 MG/DL 7.0-21.0 code=BUN) GLOMERULAR FILTRATION >=60 max estimate >60 The estimated glomerular RATE (test code=GFR) filtration rate is computed usingpatient race, age (>18), sex, and serum creatinine. If anyof the needed data elements are missing the Laboratory cannot compute an estimation of the glomerular filtration rate. CREATININE (test 0.8 mg/dL 0.8-1.5 code=CREAT) CALCIUM (test code=CA) 9.0 mg/dL 8.8-10.2 CBC W/AUTO [id number] 06:16:00 Test Item Value Reference Range Comments WHITE BLOOD CELL (test code=WBC) 3.9 x10 3/uL 4.8-10.8 RED BLOOD CELL (test code=RBC) 2.11 x10 6/uL 4.70-6.10 HEMOGLOBIN (test code=HGB) 7.6 g/dL 14.5-20 HEMATOCRIT (test code=HCT) 23.7 % 42.0-52.0 MEAN CELL VOLUME (test code=MCV) 112.3 fL 80.0-94.0 MEAN CELL HGB (test code=MCH) 36.0 pg 27-31 MEAN CELL HGB CONCENTRATION (test code=MCHC) 32.1 G/DL 33-36.5 RED CELL DISTRIBUTION WIDTH (test code=RDW) 20.5 % 12.9-16.9 PLATELET COUNT (test code=PLT) 37 150-440 MEAN PLATELET VOLUME (test code=MPV) 10.6 fL 8.9-12.4 NEUTROPHIL % (test code=NT%) 59.2 % 42.2-75.2 LYMPHOCYTE % (test code=LY%) 15.2 % 20.5-51.1 MONOCYTE % (test code=MO%) 16.2 % 1.7-9.3 EOSINOPHIL % (test code=EO%) 6.9 % 0.0-7.0 BASOPHIL % (test code=BA%) 1.5 % 0-2.5 NEUTROPHIL # (test code=NT#) 2.30 x10 3/uL 1.80-7.70 LYMPHOCYTE # (test code=LY#) 0.59 x10 3/uL 1.00-4.80 MONOCYTE # (test code=MO#) 0.63 x10 3/uL 0.00-0.80 EOSINOPHIL # (test code=EO#) 0.27 x10 3/uL 0.00-0.45 BASOPHIL # (test code=BA#) 0.06 x10 3/uL 0.0-0.20 [id number] 05:14:00 Test Item Value Reference Range Comments GLUBED (test code=GLUBED) 122 MG/DL 70-105 [id number] 05:14:00 Test Item Value Reference Range Comments GLUBED (test code=GLUBED) 101 MG/DL 70-105 [id number] 05:13:00 Test Item Value Reference Range Comments GLUBED (test code=GLUBED) 126 MG/DL 70-105 [id number] 21:13:00 Test Item Value Reference Range Comments GLUBED (test code=GLUBED) 125 MG/DL 70-105 [id number] 07:35:00 Test Item Value Reference Range Comments GLUBED (test code=GLUBED) 146 MG/DL 70-105 BASIC METABOLIC [id number] 06:02:00 Test Item Value Reference Range Comments SODIUM (test code=NA) 139 MMOL/L 136-143 POTASSIUM (test code=K) 3.4 MMOL/L 3.5-5.1 CHLORIDE (test code=CL) 111 MMOL/L 98-107 CARBON DIOXIDE (test 19 mmol/L 24-31 code=CO2) GLUCOSE (test code=GLU) 96 mg/dL 70-104 BLOOD UREA NITROGEN (test 9.3 MG/DL 7.0-21.0 code=BUN) GLOMERULAR FILTRATION >=60 max estimate >60 The estimated glomerular RATE (test code=GFR) filtration rate is computed usingpatient race, age (>18), sex, and serum creatinine. If anyof the needed data elements are missing the Laboratory cannot compute an estimation of the glomerular filtration rate. CREATININE (test 0.9 mg/dL 0.8-1.5 code=CREAT) CALCIUM (test code=CA) 8.9 mg/dL 8.8-10.2 CREATINE KINASE (CK)2019-05-26 06:02:00 Test Item Value Reference Range Comments CREATINE KINASE (CK) (test code=CK) 25 U/L 24-204 CBC W/AUTO [id number] 05:31:00 Test Item Value Reference Range Comments WHITE BLOOD CELL (test code=WBC) 4.4 x10 3/uL 4.8-10.8 RED BLOOD CELL (test code=RBC) 2.29 x10 6/uL 4.70-6.10 HEMOGLOBIN (test code=HGB) 8.1 g/dL 14.5-20 HEMATOCRIT (test code=HCT) 25.7 % 42.0-52.0 MEAN CELL VOLUME (test code=MCV) 112.2 fL 80.0-94.0 MEAN CELL HGB (test code=MCH) 35.4 pg 27-31 MEAN CELL HGB CONCENTRATION (test code=MCHC) 31.5 G/DL 33-36.5 RED CELL DISTRIBUTION WIDTH (test code=RDW) 21.1 % 12.9-16.9 PLATELET COUNT (test code=PLT) 41 150-440 MEAN PLATELET VOLUME (test code=MPV) 10.6 fL 8.9-12.4 NEUTROPHIL % (test code=NT%) 64.5 % 42.2-75.2 LYMPHOCYTE % (test code=LY%) 11.3 % 20.5-51.1 MONOCYTE % (test code=MO%) 15.3 % 1.7-9.3 EOSINOPHIL % (test code=EO%) 5.9 % 0.0-7.0 BASOPHIL % (test code=BA%) 1.4 % 0-2.5 NEUTROPHIL # (test code=NT#) 2.87 x10 3/uL 1.80-7.70 LYMPHOCYTE # (test code=LY#) 0.50 x10 3/uL 1.00-4.80 MONOCYTE # (test code=MO#) 0.68 x10 3/uL 0.00-0.80 EOSINOPHIL # (test code=EO#) 0.26 x10 3/uL 0.00-0.45 BASOPHIL # (test code=BA#) 0.06 x10 3/uL 0.0-0.20 [id number] 11:56:00 Test Item Value Reference Range Comments GLUBED (test code=GLUBED) 90 MG/DL 70-105 [id number] 11:56:00 Test Item Value Reference Range Comments GLUBED (test code=GLUBED) 93 MG/DL 70-105 [id number] 06:51:00 Test Item Value Reference Range Comments GLUBED (test code=GLUBED) 75 MG/DL 70-105 [id number] 06:50:00 Test Item Value Reference Range Comments GLUBED (test code=GLUBED) 104 MG/DL 70-105 BASIC METABOLIC [id number] 06:40:00 Test Item Value Reference Range Comments SODIUM (test code=NA) 136 MMOL/L 136-143 POTASSIUM (test code=K) 3.6 MMOL/L 3.5-5.1 CHLORIDE (test code=CL) 110 MMOL/L 98-107 CARBON DIOXIDE (test 19 mmol/L 24-31 code=CO2) GLUCOSE (test code=GLU) 116 mg/dL 70-104 BLOOD UREA NITROGEN (test 10.8 MG/DL 7.0-21.0 code=BUN) GLOMERULAR FILTRATION >=60 max estimate >60 The estimated glomerular RATE (test code=GFR) filtration rate is computed usingpatient race, age (>18), sex, and serum creatinine. If anyof the needed data elements are missing the Laboratory cannot compute an estimation of the glomerular filtration rate. CREATININE (test 1.0 mg/dL 0.8-1.5 code=CREAT) CALCIUM (test code=CA) 8.6 mg/dL 8.8-10.2 CBC W/AUTO [id number] 06:15:00 Test Item Value Reference Range Comments WHITE BLOOD CELL (test code=WBC) 3.9 x10 3/uL 4.8-10.8 RED BLOOD CELL (test code=RBC) 2.20 x10 6/uL 4.70-6.10 HEMOGLOBIN (test code=HGB) 7.7 g/dL 14.5-20 HEMATOCRIT (test code=HCT) 24.4 % 42.0-52.0 MEAN CELL VOLUME (test code=MCV) 110.9 fL 80.0-94.0 MEAN CELL HGB (test code=MCH) 35.0 pg 27-31 MEAN CELL HGB CONCENTRATION (test code=MCHC) 31.6 G/DL 33-36.5 RED CELL DISTRIBUTION WIDTH (test code=RDW) 21.6 % 12.9-16.9 PLATELET COUNT (test code=PLT) 36 150-440 MEAN PLATELET VOLUME (test code=MPV) 10.7 fL 8.9-12.4 NEUTROPHIL % (test code=NT%) 68.4 % 42.2-75.2 LYMPHOCYTE % (test code=LY%) 10.2 % 20.5-51.1 MONOCYTE % (test code=MO%) 14.0 % 1.7-9.3 EOSINOPHIL % (test code=EO%) 4.8 % 0.0-7.0 BASOPHIL % (test code=BA%) 1.3 % 0-2.5 NEUTROPHIL # (test code=NT#) 2.69 x10 3/uL 1.80-7.70 LYMPHOCYTE # (test code=LY#) 0.40 x10 3/uL 1.00-4.80 MONOCYTE # (test code=MO#) 0.55 x10 3/uL 0.00-0.80 EOSINOPHIL # (test code=EO#) 0.19 x10 3/uL 0.00-0.45 BASOPHIL # (test code=BA#) 0.05 x10 3/uL 0.0-0.20 PROTHROMBIN [id number] 10:35:00 Test Item Value Reference Range Comments PROTHROMBIN TIME PATIENT 32.1 SECONDS 10.3-12.9 (test code=PTP) INTERNATIONAL NORMAL 2.71 INR UNIT 0.9-1.11 The INR is useful [...] Prosthetic mechanical heart valves; 2.5-3.5recurrent systemic embolism. [id number] 09:26:00 Test Item Value Reference Range Comments GLUBED (test code=GLUBED) 115 MG/DL 70-105 [id number] 09:26:00 Test Item Value Reference Range Comments GLUBED (test code=GLUBED) 173 MG/DL 70-105 [id number] 09:26:00 Test Item Value Reference Range Comments GLUBED (test code=GLUBED) 132 MG/DL 70-105 [id number] 09:26:00 Test Item Value Reference Range Comments GLUBED (test code=GLUBED) 149 MG/DL 70-105 BASIC METABOLIC [id number] 06:40:00 Test Item Value Reference Range Comments SODIUM (test code=NA) 129 MMOL/L 136-143 POTASSIUM (test code=K) 3.5 MMOL/L 3.5-5.1 CHLORIDE (test code=CL) 106 MMOL/L 98-107 CARBON DIOXIDE (test 18 mmol/L 24-31 code=CO2) GLUCOSE (test code=GLU) 155 mg/dL 70-104 BLOOD UREA NITROGEN (test 9.9 MG/DL 7.0-21.0 code=BUN) GLOMERULAR FILTRATION >=60 max estimate >60 The estimated glomerular RATE (test code=GFR) filtration rate is computed usingpatient race, age (>18), sex, and serum creatinine. If anyof the needed data elements are missing the Laboratory cannot compute an estimation of the glomerular filtration rate. CREATININE (test 0.9 mg/dL 0.8-1.5 code=CREAT) CALCIUM (test code=CA) 9.0 mg/dL 8.8-10.2 CBC W/AUTO [id number] 06:27:00 Test Item Value Reference Range Comments WHITE BLOOD CELL (test code=WBC) 3.6 x10 3/uL 4.8-10.8 RED BLOOD CELL (test code=RBC) 2.13 x10 6/uL 4.70-6.10 HEMOGLOBIN (test code=HGB) 7.7 g/dL 14.5-20 HEMATOCRIT (test code=HCT) 23.7 % 42.0-52.0 MEAN CELL VOLUME (test code=MCV) 111.3 fL 80.0-94.0 MEAN CELL HGB (test code=MCH) 36.2 pg 27-31 MEAN CELL HGB CONCENTRATION (test code=MCHC) 32.5 G/DL 33-36.5 RED CELL DISTRIBUTION WIDTH (test code=RDW) 22.5 % 12.9-16.9 PLATELET COUNT (test code=PLT) 33 150-440 MEAN PLATELET VOLUME (test code=MPV) 9.9 fL 8.9-12.4 NEUTROPHIL % (test code=NT%) 71.0 % 42.2-75.2 LYMPHOCYTE % (test code=LY%) 11.4 % 20.5-51.1 MONOCYTE % (test code=MO%) 11.6 % 1.7-9.3 EOSINOPHIL % (test code=EO%) 3.0 % 0.0-7.0 BASOPHIL % (test code=BA%) 0.8 % 0-2.5 NEUTROPHIL # (test code=NT#) 2.56 x10 3/uL 1.80-7.70 LYMPHOCYTE # (test code=LY#) 0.41 x10 3/uL 1.00-4.80 MONOCYTE # (test code=MO#) 0.42 x10 3/uL 0.00-0.80 EOSINOPHIL # (test code=EO#) 0.11 x10 3/uL 0.00-0.45 BASOPHIL # (test code=BA#) 0.03 x10 3/uL 0.0-0.20 [id number] 07:43:00 Test Item Value Reference Range Comments GLUBED (test code=GLUBED) 108 MG/DL 70-105 CBC W/AUTO [id number] 07:43:00 Test Item Value Reference Range Comments WHITE BLOOD CELL (test 3.1 x10 3/uL 4.8-10.8 code=WBC) RED BLOOD CELL (test 1.79 x10 6/uL 4.70-6.10 code=RBC) HEMOGLOBIN (test code=HGB) 6.5 g/dL 14.5-20 Critical Value reported toFirst Name:SAMANTHA Last Name:EDI READ BACK AND VERIFIEDby P.LAB.ISABEL, on 05/23/19, @ 5747. HEMATOCRIT (test code=HCT) 20.6 % 42.0-52.0 MEAN CELL VOLUME (test 115.1 fL 80.0-94.0 code=MCV) MEAN CELL HGB (test code=MCH) 36.3 pg 27-31 MEAN CELL HGB CONCENTRATION 31.6 G/DL 33-36.5 (test code=MCHC) RED CELL DISTRIBUTION WIDTH 19.4 % 12.9-16.9 (test code=RDW) PLATELET COUNT (test 32 150-440 code=PLT) MEAN PLATELET VOLUME (test 11.2 fL 8.9-12.4 code=MPV) NEUTROPHIL % (test code=NT%) 67.6 % 42.2-75.2 LYMPHOCYTE % (test code=LY%) 13.1 % 20.5-51.1 MONOCYTE % (test code=MO%) 12.1 % 1.7-9.3 EOSINOPHIL % (test code=EO%) 5.2 % 0.0-7.0 BASOPHIL % (test code=BA%) 0.7 % 0-2.5 NEUTROPHIL # (test code=NT#) 2.07 x10 3/uL 1.80-7.70 LYMPHOCYTE # (test code=LY#) 0.40 x10 3/uL 1.00-4.80 MONOCYTE # (test code=MO#) 0.37 x10 3/uL 0.00-0.80 EOSINOPHIL # (test code=EO#) 0.16 x10 3/uL 0.00-0.45 BASOPHIL # (test code=BA#) 0.02 x10 3/uL 0.0-0.20 [id number] 07:43:00 Test Item Value Reference Range Comments GLUBED (test code=GLUBED) 181 MG/DL 70-105 [id number] 07:43:00 Test Item Value Reference Range Comments GLUBED (test code=GLUBED) 132 MG/DL 70-105 BASIC METABOLIC [id number] 07:01:00 Test Item Value Reference Range Comments SODIUM (test code=NA) 135 MMOL/L 136-143 POTASSIUM (test code=K) 3.6 MMOL/L 3.5-5.1 CHLORIDE (test code=CL) 109 MMOL/L 98-107 CARBON DIOXIDE (test 19 mmol/L 24-31 code=CO2) GLUCOSE (test code=GLU) 107 mg/dL 70-104 BLOOD UREA NITROGEN (test 11.8 MG/DL 7.0-21.0 code=BUN) GLOMERULAR FILTRATION >=60 max estimate >60 The estimated glomerular RATE (test code=GFR) filtration rate is computed usingpatient race, age (>18), sex, and serum creatinine. If anyof the needed data elements are missing the Laboratory cannot compute an estimation of the glomerular filtration rate. CREATININE (test 0.9 mg/dL 0.8-1.5 code=CREAT) CALCIUM (test code=CA) 8.5 mg/dL 8.8-10.2 [id number] 11:35:00 Test Item Value Reference Range Comments GLUBED (test code=GLUBED) 148 MG/DL 70-105 [id number] 11:35:00 Test Item Value Reference Range Comments GLUBED (test code=GLUBED) 124 MG/DL 70-105 [id number] 11:35:00 Test Item Value Reference Range Comments GLUBED (test code=GLUBED) 170 MG/DL 70-105 [id number] 11:35:00 Test Item Value Reference Range Comments GLUBED (test code=GLUBED) 122 MG/DL 70-105 [id number] 11:34:00 Test Item Value Reference Range Comments GLUBED (test code=GLUBED) 109 MG/DL 70-105 [id number] 11:34:00 Test Item Value Reference Range Comments GLUBED (test code=GLUBED) 104 MG/DL 70-105 [id number] 11:27:00 Test Item Value Reference Range Comments GLUBED (test code=GLUBED) 184 MG/DL 70-105 [id number] 11:27:00 Test Item Value Reference Range Comments GLUBED (test code=GLUBED) 129 MG/DL 70-105 BASIC METABOLIC [id number] 09:12:00 Test Item Value Reference Range Comments SODIUM (test code=NA) 132 MMOL/L 136-143 POTASSIUM (test code=K) 3.5 MMOL/L 3.5-5.1 CHLORIDE (test code=CL) 106 MMOL/L 98-107 CARBON DIOXIDE (test 16 mmol/L 24-31 code=CO2) GLUCOSE (test code=GLU) 163 mg/dL 70-104 BLOOD UREA NITROGEN (test 11.1 MG/DL 7.0-21.0 code=BUN) GLOMERULAR FILTRATION >=60 max estimate >60 The estimated glomerular RATE (test code=GFR) filtration rate is computed usingpatient race, age (>18), sex, and serum creatinine. If anyof the needed data elements are missing the Laboratory cannot compute an estimation of the glomerular filtration rate. CREATININE (test 0.9 mg/dL 0.8-1.5 code=CREAT) CALCIUM (test code=CA) 8.5 mg/dL 8.8-10.2 CBC W/AUTO [id number] 08:39:00 Test Item Value Reference Range Comments WHITE BLOOD CELL (test code=WBC) 4.0 x10 3/uL 4.8-10.8 RED BLOOD CELL (test code=RBC) 2.04 x10 6/uL 4.70-6.10 HEMOGLOBIN (test code=HGB) 7.5 g/dL 14.5-20 HEMATOCRIT (test code=HCT) 23.4 % 42.0-52.0 MEAN CELL VOLUME (test code=MCV) 114.7 fL 80.0-94.0 MEAN CELL HGB (test code=MCH) 36.8 pg 27-31 MEAN CELL HGB CONCENTRATION (test code=MCHC) 32.1 G/DL 33-36.5 RED CELL DISTRIBUTION WIDTH (test code=RDW) 20.2 % 12.9-16.9 PLATELET COUNT (test code=PLT) 36 150-440 MEAN PLATELET VOLUME (test code=MPV) 10.9 fL 8.9-12.4 NEUTROPHIL % (test code=NT%) 68.4 % 42.2-75.2 LYMPHOCYTE % (test code=LY%) 13.8 % 20.5-51.1 MONOCYTE % (test code=MO%) 10.0 % 1.7-9.3 EOSINOPHIL % (test code=EO%) 4.5 % 0.0-7.0 BASOPHIL % (test code=BA%) 0.5 % 0-2.5 NEUTROPHIL # (test code=NT#) 2.73 x10 3/uL 1.80-7.70 LYMPHOCYTE # (test code=LY#) 0.55 x10 3/uL 1.00-4.80 MONOCYTE # (test code=MO#) 0.40 x10 3/uL 0.00-0.80 EOSINOPHIL # (test code=EO#) 0.18 x10 3/uL 0.00-0.45 BASOPHIL # (test code=BA#) 0.02 x10 3/uL 0.0-0.20 BASIC METABOLIC [id number] 08:10:00 Test Item Value Reference Range Comments SODIUM (test code=NA) 132 MMOL/L 136-143 POTASSIUM (test code=K) 3.5 MMOL/L 3.5-5.1 CHLORIDE (test code=CL) 106 MMOL/L 98-107 CARBON DIOXIDE (test 18 mmol/L 24-31 code=CO2) GLUCOSE (test code=GLU) 104 mg/dL 70-104 BLOOD UREA NITROGEN (test 12.2 MG/DL 7.0-21.0 code=BUN) GLOMERULAR FILTRATION >=60 max estimate >60 The estimated glomerular RATE (test code=GFR) filtration rate is computed usingpatient race, age (>18), sex, and serum creatinine. If anyof the needed data elements are missing the Laboratory cannot compute an estimation of the glomerular filtration rate. CREATININE (test 0.9 mg/dL 0.8-1.5 code=CREAT) CALCIUM (test code=CA) 9.0 mg/dL 8.8-10.2 [id number] 08:10:00 Test Item Value Reference Range Comments PHOSPHOROUS (test code=PHOS) 3.1 mg/dL 2.7-4.5 [id number] 08:10:00 Test Item Value Reference Range Comments MAGNESIUM (test code=MAG) 1.4 mg/dL 1.4-2.6 [id number] 07:18:00 Test Item Value Reference Range Comments GLUBED (test code=GLUBED) 152 MG/DL 70-105 [id number] 15:01:00 Test Item Value Reference Range Comments AMMONIA (test code=AMM) 141 mcmol/L 11-32 Critical Value reported toFirst Name:ABDIEL Last Name:JOAQUÍN READ BACK AND VERIFIEDby NATA, on 05/20/19, @ 1459. COMPREHENSIVE METABOLIC [id number] 14:47:00 Test Item Value Reference Range Comments SODIUM (test code=NA) 132 MMOL/L 136-143 POTASSIUM (test code=K) 3.3 MMOL/L 3.5-5.1 CHLORIDE (test code=CL) 106 MMOL/L 98-107 CARBON DIOXIDE (test 17 mmol/L 24-31 code=CO2) GLUCOSE (test code=GLU) 141 mg/dL 70-104 BLOOD UREA NITROGEN (test 10.7 MG/DL 7.0-21.0 code=BUN) GLOMERULAR FILTRATION >=60 max estimate >60 The estimated glomerular RATE (test code=GFR) filtration rate is computed usingpatient race, age (>18), sex, and serum creatinine. If anyof the needed data elements are missing the Laboratory cannot compute an estimation of the glomerular filtration rate. CREATININE (test 1.1 mg/dL 0.8-1.5 code=CREAT) TOTAL PROTEIN (test 5.6 g/dL 6.3-8.3 code=PROT) ALBUMIN (test code=ALB) 1.7 G/DL 3.5-5.0 CALCIUM (test code=CA) 8.2 mg/dL 8.8-10.2 BILIRUBIN TOTAL (test 4.0 mg/dL 0.2-1.0 code=BILT) SGOT/AST (test code=AST) 36 IU/L 10-34 SGPT/ALT (test code=ALT) 23 U/L 10-44 ALKALINE PHOSPHATASE 233 U/L 45-120 (test code=ALKP) [id number] 14:47:00 Test Item Value Reference Range Comments PHOSPHOROUS (test code=PHOS) 3.3 mg/dL 2.7-4.5 [id number] 14:47:00 Test Item Value Reference Range Comments MAGNESIUM (test code=MAG) 1.4 mg/dL 1.4-2.6 [id number] 14:47:00 Test Item Value Reference Range Comments PREALBUMIN (test code=PREALB) < 4 MG/ML 15-42 POCT-GLUCOSE [id number] 17:34:00 Test Item Value Reference Range Comments POC-GLUCOSE METER (BEAKER) 130 mg/dL 70-110 : TESTED AT [address] (test upok=7848) [facility], [address]: Cosmetic Sales Advisor/Contact Lens Molder [phone] for ALICIA DELATORRE POCT-GLUCOSE [id number] 15:26:00 Test Item Value Reference Range Comments POC-GLUCOSE METER (BEAKER) 124 mg/dL 70-110 : TESTED AT [address] (test pvow=1799) [facility], [address]: Cosmetic Sales Advisor/Contact Lens Molder [phone] for JAIRO TREVIZO POCT-GLUCOSE [id number] 11:44:00 Test Item Value Reference Range Comments POC-GLUCOSE METER (BEAKER) 90 mg/dL 70-110 : TESTED AT [address] (test crug=8904) [facility], [address]: Cosmetic Sales Advisor/Contact Lens Molder [phone] for SILVANOLUCAS WOLFELAVERN [id number] 05:15:00 Test Item Value Reference Range Comments PHOSPHORUS (BEAKER) (test yolb=748) 2.1 mg/dL 2.3-4.7 [id number] 05:15:00 Test Item Value Reference Range Comments MAGNESIUM (BEAKER) (test qiie=363) 1.9 mg/dL 1.6-2.6 BASIC METABOLIC [id number] 05:15:00 Test Item Value Reference Range Comments SODIUM (BEAKER) (test 133 meq/L 136-145 ddwu=838) POTASSIUM (BEAKER) (test 4.0 meq/L 3.5-5.1 kbif=855) CHLORIDE (BEAKER) (test 107 meq/L 98-107 udpr=906) CO2 (BEAKER) (test 24 meq/L 22-29 nica=989) BLOOD UREA NITROGEN 14 mg/dL 7-21 (BEAKER) (test zoli=609) CREATININE (BEAKER) (test 0.89 mg/dL 0.57-1.25 lpcm=918) GLUCOSE RANDOM (BEAKER) 106 mg/dL 70-105 (test furd=832) CALCIUM (BEAKER) (test 8.8 mg/dL 8.4-10.2 flum=996) EGFR (BEAKER) (test 90 mL/min/1.73 sq m ESTIMATED GFR IS NOT nypa=7502) ACCURATE CREATININE CLEARANCE IN PREDICTING GLOMERULAR FILTRATION RATE. ESTIMATED GFR IS NOT APPLICABLE FOR DIALYSIS PATIENTS. Specimen markedly ictericHEPATIC FUNCTION [id number] 05:15:00 Test Item Value Reference Range Comments TOTAL PROTEIN (BEAKER) (test mptp=858) 5.5 gm/dL 6.0-8.3 ALBUMIN (BEAKER) (test skqr=0627) 2.2 g/dL 3.5-5.0 BILIRUBIN TOTAL (BEAKER) (test qjbx=489) 9.8 mg/dL 0.2-1.2 BILIRUBIN DIRECT (BEAKER) (test adli=434) 4.0 mg/dL 0.1-0.5 ALKALINE PHOSPHATASE (BEAKER) (test qzxy=172) 174 U/L 40-150 AST (SGOT) (BEAKER) (test xplz=253) 42 U/L 5-34 ALT (SGPT) (BEAKER) (test qtzw=276) 32 U/L 6-55 Specimen markedly ictericCBC W/PLT COUNT & AUTO [id number] 05:12 :00 Test Item Value Reference Range Comments WHITE BLOOD CELL COUNT 4.0 K/ L 3.5-10.5 (BEAKER) (test jpul=994) RED BLOOD CELL COUNT (BEAKER) 2.01 M/ L 4.63-6.08 (test ozcd=981) HEMOGLOBIN (BEAKER) (test 7.2 GM/DL 13.7-17.5 bmvy=783) HEMATOCRIT (BEAKER) (test 22.3 % 40.1-51.0 pnvs=356) MEAN CORPUSCULAR VOLUME 110.9 fL 79.0-92.2 (BEAKER) (test jxbh=538) MEAN CORPUSCULAR HEMOGLOBIN 35.8 pg 25.7-32.2 (BEAKER) (test lbyt=758) MEAN CORPUSCULAR HEMOGLOBIN 32.3 GM/DL 32.3-36.5 CONC (BEAKER) (test uniu=495) RED CELL DISTRIBUTION WIDTH Unable to report due to (BEAKER) (test kcfm=376) abnormal RBC population distribution. PLATELET COUNT (BEAKER) (test 43 K/CU MM 150-450 qkql=595) MEAN PLATELET VOLUME (BEAKER) 11.0 fL 9.4-12.4 (test ggjh=142) NUCLEATED RED BLOOD CELLS 0 /100 WBC 0-0 (BEAKER) (test ckpc=206) NEUTROPHILS RELATIVE PERCENT 78 % (BEAKER) (test nlus=520) LYMPHOCYTES RELATIVE PERCENT 10 % (BEAKER) (test fpyy=791) MONOCYTES RELATIVE PERCENT 6 % (BEAKER) (test nnyj=248) EOSINOPHILS RELATIVE PERCENT 6 % (BEAKER) (test dihz=837) BASOPHILS RELATIVE PERCENT 0 % (BEAKER) (test lyll=495) NEUTROPHILS ABSOLUTE COUNT 3.12 K/ L 1.78-5.38 (BEAKER) (test xvxz=345) LYMPHOCYTES ABSOLUTE COUNT 0.38 K/ L 1.32-3.57 (BEAKER) (test owsa=955) MONOCYTES ABSOLUTE COUNT 0.25 K/ L 0.30-0.82 (BEAKER) (test dvcy=103) EOSINOPHILS ABSOLUTE COUNT 0.23 K/ L 0.04-0.54 (BEAKER) (test lifn=111) BASOPHILS ABSOLUTE COUNT 0.01 K/ L 0.01-0.08 (BEAKER) (test wrco=349) IMMATURE GRANULOCYTES-RELATIVE 1 % 0-1 PERCENT (BEAKER) (test cjtn=3580) CALCIUM, [id number] 05:02:00 Test Item Value Reference Range Comments CALCIUM IONIZED (BEAKER) (test gchx=312) 1.29 mmol/L 1.12-1.27 PH, BLOOD (BEAKER) (test lvdy=7439) 7.43 POCT-GLUCOSE [id number] 21:08:00 Test Item Value Reference Range Comments POC-GLUCOSE METER (BEAKER) 173 mg/dL 70-110 : Notified RN/MD: TESTED AT (test supp=5226) [address], [address]: Cosmetic Sales Advisor/Contact Lens Molder [phone] for BLANCA SUZY POCT-GLUCOSE [id number] 18:01:00 Test Item Value Reference Range Comments POC-GLUCOSE METER (BEAKER) 113 mg/dL 70-110 : TESTED AT [address] (test oiej=0846) [facility], [address]: Cosmetic Sales Advisor/Contact Lens Molder [phone] for EVANS SNIDER POCT-GLUCOSE [id number] 12:40:00 Test Item Value Reference Range Comments POC-GLUCOSE METER (BEAKER) 101 mg/dL 70-110 : TESTED AT [address] (test gjuj=4875) [facility], [address]: Cosmetic Sales Advisor/Contact Lens Molder [phone] for EVANS SNIDER POCT-GLUCOSE [id number] 11:48:00 Test Item Value Reference Range Comments POC-GLUCOSE METER (BEAKER) 127 mg/dL 70-110 : TESTED AT [facility] [address] (test rbrb=7855) [facility], [address]: Cosmetic Sales Advisor/Contact Lens Molder ZB=[phone] for EVANS SNIDER [id number] 06:46:00 Test Item Value Reference Range Comments MAGNESIUM (BEAKER) (test 1.6 mg/dL 1.6-2.6 Specimen slightly hemolyzed galr=764) [id number] 06:46:00 Test Item Value Reference Range Comments PHOSPHORUS (BEAKER) (test 2.4 mg/dL 2.3-4.7 Specimen slightly hemolyzed egxy=248) BASIC METABOLIC [id number] 06:46:00 Test Item Value Reference Range Comments SODIUM (BEAKER) (test 135 meq/L 136-145 bjcb=671) POTASSIUM (BEAKER) (test 3.4 meq/L 3.5-5.1 Specimen slightly dvdy=480) hemolyzed CHLORIDE (BEAKER) (test 108 meq/L 98-107 btxx=356) CO2 (BEAKER) (test 24 meq/L 22-29 jcqy=898) BLOOD UREA NITROGEN 15 mg/dL 7-21 (BEAKER) (test qzbm=398) CREATININE (BEAKER) (test 0.85 mg/dL 0.57-1.25 Specimen slightly tlwd=989) hemolyzed GLUCOSE RANDOM (BEAKER) 109 mg/dL 70-105 (test tayk=639) CALCIUM (BEAKER) (test 9.0 mg/dL 8.4-10.2 ptrp=596) EGFR (BEAKER) (test 95 mL/min/1.73 sq m ESTIMATED GFR IS NOT kvix=3798) ACCURATE CREATININE CLEARANCE IN PREDICTING GLOMERULAR FILTRATION RATE. ESTIMATED GFR IS NOT APPLICABLE FOR DIALYSIS PATIENTS. Specimen markedly ictericHEPATIC FUNCTION [id number] 06:46:00 Test Item Value Reference Range Comments TOTAL PROTEIN (BEAKER) (test 5.2 gm/dL 6.0-8.3 Specimen slightly hemolyzed giud=839) ALBUMIN (BEAKER) (test 2.2 g/dL 3.5-5.0 Specimen slightly hemolyzed dbwj=8097) BILIRUBIN TOTAL (BEAKER) (test 9.4 mg/dL 0.2-1.2 Specimen slightly hemolyzed fdql=260) BILIRUBIN DIRECT (BEAKER) (test 3.5 mg/dL 0.1-0.5 Specimen slightly hemolyzed bwek=649) ALKALINE PHOSPHATASE (BEAKER) 173 U/L 40-150 (test okcz=176) AST (SGOT) (BEAKER) (test 45 U/L 5-34 Specimen slightly hemolyzed mfda=959) ALT (SGPT) (BEAKER) (test 33 U/L 6-55 Specimen slightly hemolyzed byqe=745) Specimen markedly ictericCBC W/PLT COUNT & AUTO [id number] 06:08 :00 Test Item Value Reference Range Comments WHITE BLOOD CELL COUNT 3.6 K/ L 3.5-10.5 (BEAKER) (test suul=859) RED BLOOD CELL COUNT (BEAKER) 2.01 M/ L 4.63-6.08 (test kufy=309) HEMOGLOBIN (BEAKER) (test 7.2 GM/DL 13.7-17.5 zeqh=190) HEMATOCRIT (BEAKER) (test 21.8 % 40.1-51.0 lctx=746) MEAN CORPUSCULAR VOLUME 108.5 fL 79.0-92.2 (BEAKER) (test cudd=867) MEAN CORPUSCULAR HEMOGLOBIN 35.8 pg 25.7-32.2 (BEAKER) (test kgni=976) MEAN CORPUSCULAR HEMOGLOBIN 33.0 GM/DL 32.3-36.5 CONC (BEAKER) (test utuj=760) RED CELL DISTRIBUTION WIDTH Unable to report due to (BEAKER) (test tpjt=865) abnormal RBC population distribution. PLATELET COUNT (BEAKER) (test 52 K/CU MM 150-450 fgll=623) MEAN PLATELET VOLUME (BEAKER) 10.9 fL 9.4-12.4 (test urfu=342) NUCLEATED RED BLOOD CELLS 0 /100 WBC 0-0 (BEAKER) (test cjsz=114) NEUTROPHILS RELATIVE PERCENT 77 % (BEAKER) (test waxa=320) LYMPHOCYTES RELATIVE PERCENT 11 % (BEAKER) (test sadj=200) MONOCYTES RELATIVE PERCENT 6 % (BEAKER) (test trpr=394) EOSINOPHILS RELATIVE PERCENT 6 % (BEAKER) (test bamu=952) BASOPHILS RELATIVE PERCENT 0 % (BEAKER) (test xrvx=805) NEUTROPHILS ABSOLUTE COUNT 2.74 K/ L 1.78-5.38 (BEAKER) (test lesw=146) LYMPHOCYTES ABSOLUTE COUNT 0.39 K/ L 1.32-3.57 (BEAKER) (test aujf=110) MONOCYTES ABSOLUTE COUNT 0.20 K/ L 0.30-0.82 (BEAKER) (test nbfd=152) EOSINOPHILS ABSOLUTE COUNT 0.20 K/ L 0.04-0.54 (BEAKER) (test rvsi=076) BASOPHILS ABSOLUTE COUNT 0.01 K/ L 0.01-0.08 (BEAKER) (test pczf=970) IMMATURE GRANULOCYTES-RELATIVE 1 % 0-1 PERCENT (BEAKER) (test arae=2935) PROTHROMBIN [id number] 06:04:00 Test Item Value Reference Range Comments PROTIME (BEAKER) (test xzyi=938) 30.2 seconds 11.9-14.2 INR (BEAKER) (test ruhr=791) 3.1 <=5.9 Effective 10/09/2018: PT Reference Range ChangeNew: 11.9-14.2 Previous: 11.7- 14.7RECOMMENDED COUMADIN/WARFARIN INR THERAPY RANGESSTANDARD DOSE: 2.0-3.0 Includes: PROPHYLAXIS for venous thrombosis, systemic embolization; TREATMENT for venous thrombosis and/or pulmonary embolus.HIGH RISK: Target INR is2.5-3.5 for patients wiht mechanical heart valves.CALCIUM, [id number] 05:52:00 Test Item Value Reference Range Comments CALCIUM IONIZED (BEAKER) (test swnu=743) 1.29 mmol/L 1.12-1.27 PH, BLOOD (BEAKER) (test lhoy=6097) 7.43 POCT-GLUCOSE [id number] 20:54:00 Test Item Value Reference Range Comments POC-GLUCOSE METER (BEAKER) 126 mg/dL 70-110 : TESTED AT [facility] [address] [facility] (test upcr=6042) [facility], [address]: Cosmetic Sales Advisor/Contact Lens Molder [phone] for JACKSON MANPREET POCT-GLUCOSE [id number] 16:50:00 Test Item Value Reference Range Comments POC-GLUCOSE METER (BEAKER) 105 mg/dL 70-110 : TESTED AT [facility] [address] [facility] (test opgk=4772) [facility], [address]: Cosmetic Sales Advisor/Contact Lens Molder [phone] for SARA WEN POCT-GLUCOSE [id number] 08:47:00 Test Item Value Reference Range Comments POC-GLUCOSE METER (BEAKER) 91 mg/dL 70-110 : TESTED AT [address] (test jdpd=3123) [facility], [address]: Cosmetic Sales Advisor/Contact Lens Molder DB=[phone] for PRINCESS GANGA CBC W/PLT COUNT & AUTO [id number] 06:06:00 Test Item Value Reference Range Comments WHITE BLOOD CELL COUNT 3.8 K/ L 3.5-10.5 (BEAKER) (test jpju=055) RED BLOOD CELL COUNT (BEAKER) 1.91 M/ L 4.63-6.08 (test peud=425) HEMOGLOBIN (BEAKER) (test 6.8 GM/DL 13.7-17.5 yubz=593) HEMATOCRIT (BEAKER) (test 21.4 % 40.1-51.0 qirj=918) MEAN CORPUSCULAR VOLUME 112.0 fL 79.0-92.2 (BEAKER) (test perd=866) MEAN CORPUSCULAR HEMOGLOBIN 35.6 pg 25.7-32.2 (BEAKER) (test dekp=037) MEAN CORPUSCULAR HEMOGLOBIN 31.8 GM/DL 32.3-36.5 CONC (BEAKER) (test efwr=056) RED CELL DISTRIBUTION WIDTH Unable to report due to (BEAKER) (test jmin=530) abnormal RBC population distribution. PLATELET COUNT (BEAKER) (test 21 K/CU MM 150-450 scil=770) MEAN PLATELET VOLUME (BEAKER) 10.8 fL 9.4-12.4 (test sreb=813) NUCLEATED RED BLOOD CELLS 0 /100 WBC 0-0 (BEAKER) (test prhc=590) NEUTROPHILS RELATIVE PERCENT 75 % (BEAKER) (test xapy=807) LYMPHOCYTES RELATIVE PERCENT 10 % (BEAKER) (test fwce=966) MONOCYTES RELATIVE PERCENT 9 % (BEAKER) (test aohb=849) EOSINOPHILS RELATIVE PERCENT 5 % (BEAKER) (test mkqf=593) BASOPHILS RELATIVE PERCENT 0 % (BEAKER) (test xiuy=225) NEUTROPHILS ABSOLUTE COUNT 2.88 K/ L 1.78-5.38 (BEAKER) (test pdus=698) LYMPHOCYTES ABSOLUTE COUNT 0.38 K/ L 1.32-3.57 (BEAKER) (test dias=886) MONOCYTES ABSOLUTE COUNT 0.34 K/ L 0.30-0.82 (BEAKER) (test fufe=337) EOSINOPHILS ABSOLUTE COUNT 0.19 K/ L 0.04-0.54 (BEAKER) (test ijqo=937) BASOPHILS ABSOLUTE COUNT 0.01 K/ L 0.01-0.08 (BEAKER) (test cypk=473) IMMATURE GRANULOCYTES-RELATIVE 1 % 0-1 PERCENT (BEAKER) (test gkqh=4666) HEPATIC FUNCTION [id number] 05:59:00 Test Item Value Reference Range Comments TOTAL PROTEIN (BEAKER) (test guso=071) 4.9 gm/dL 6.0-8.3 ALBUMIN (BEAKER) (test phai=3577) 1.9 g/dL 3.5-5.0 BILIRUBIN TOTAL (BEAKER) (test qbsb=411) 7.9 mg/dL 0.2-1.2 BILIRUBIN DIRECT (BEAKER) (test qkuu=560) 3.7 mg/dL 0.1-0.5 ALKALINE PHOSPHATASE (BEAKER) (test qugw=714) 180 U/L 40-150 AST (SGOT) (BEAKER) (test tpgd=872) 45 U/L 5-34 ALT (SGPT) (BEAKER) (test jjxl=559) 36 U/L 6-55 Specimen moderately [id number] 05:56:00 Test Item Value Reference Range Comments PHOSPHORUS (BEAKER) (test eomu=617) 2.2 mg/dL 2.3-4.7 [id number] 05:56:00 Test Item Value Reference Range Comments MAGNESIUM (BEAKER) (test nxir=553) 2.0 mg/dL 1.6-2.6 BASIC METABOLIC [id number] 05:56:00 Test Item Value Reference Range Comments SODIUM (BEAKER) (test 141 meq/L 136-145 sqlc=701) POTASSIUM (BEAKER) (test 3.5 meq/L 3.5-5.1 biel=740) CHLORIDE (BEAKER) (test 115 meq/L 98-107 zcmc=413) CO2 (BEAKER) (test 23 meq/L 22-29 chwn=930) BLOOD UREA NITROGEN 15 mg/dL 7-21 (BEAKER) (test zhkf=970) CREATININE (BEAKER) (test 1.15 mg/dL 0.57-1.25 hzao=349) GLUCOSE RANDOM (BEAKER) 127 mg/dL 70-105 (test ipup=738) CALCIUM (BEAKER) (test 9.0 mg/dL 8.4-10.2 lsrc=250) EGFR (BEAKER) (test 67 mL/min/1.73 sq m ESTIMATED GFR IS NOT mdss=4593) ACCURATE CREATININE CLEARANCE IN PREDICTING GLOMERULAR FILTRATION RATE. ESTIMATED GFR IS NOT APPLICABLE FOR DIALYSIS PATIENTS. Specimen moderately ictericCALCIUM, [id number] 05:45:00 Test Item Value Reference Range Comments CALCIUM IONIZED (BEAKER) (test adbn=235) 1.36 mmol/L 1.12-1.27 PH, BLOOD (BEAKER) (test lafx=4578) 7.41 POCT-GLUCOSE [id number] 22:41:00 Test Item Value Reference Range Comments POC-GLUCOSE METER (BEAKER) 127 mg/dL 70-110 : TESTED AT [address] (test lpyn=5548) [facility], [address]: Cosmetic Sales Advisor/Contact Lens Molder [id number] for MARY LOU CHRISTIANSEN POCT-GLUCOSE [id number] 16:46:00 Test Item Value Reference Range Comments POC-GLUCOSE METER (BEAKER) 171 mg/dL 70-110 : TESTED AT [address] (test xibg=7864) [facility], [address]: Cosmetic Sales Advisor/Contact Lens Molder [phone] for ALBERTO RESTREPOE POCT-GLUCOSE [id number] 11:42:00 Test Item Value Reference Range Comments POC-GLUCOSE METER (BEAKER) 147 mg/dL 70-110 : TESTED AT [address] (test pmfn=4850) [facility], [address]: Cosmetic Sales Advisor/Contact Lens Molder RG=[phone] for WENCESLAO RESTREPOANIE POCT-GLUCOSE [id number] 08:13:00 Test Item Value Reference Range Comments POC-GLUCOSE METER (BEAKER) 100 mg/dL 70-110 : TESTED AT [facility] [address] (test wthf=2288) [place], [address]: Cosmetic Sales Advisor/Contact Lens Molder KV=[id number] for RAQUEL RESTREPO CALCIUM, [id number] 05:58:00 Test Item Value Reference Range Comments CALCIUM IONIZED (BEAKER) (test bzob=564) 1.38 mmol/L 1.12-1.27 PH, BLOOD (BEAKER) (test jsmo=9391) 7.38 HEPATIC FUNCTION [id number] 05:04:00 Test Item Value Reference Range Comments TOTAL PROTEIN (BEAKER) (test bvmq=533) 5.0 gm/dL 6.0-8.3 ALBUMIN (BEAKER) (test bnvx=2019) 1.6 g/dL 3.5-5.0 BILIRUBIN TOTAL (BEAKER) (test gpsg=033) 7.5 mg/dL 0.2-1.2 BILIRUBIN DIRECT (BEAKER) (test shhx=397) 3.7 mg/dL 0.1-0.5 ALKALINE PHOSPHATASE (BEAKER) (test alpf=876) 196 U/L 40-150 AST (SGOT) (BEAKER) (test whwj=927) 39 U/L 5-34 ALT (SGPT) (BEAKER) (test gbxb=069) 35 U/L 6-55 Specimen moderately ictericCOMPREHENSIVE METABOLIC [id number] 05:04:00 Test Item Value Reference Range Comments TOTAL PROTEIN (BEAKER) 5.0 gm/dL 6.0-8.3 (test qowy=907) ALBUMIN (BEAKER) (test 1.6 g/dL 3.5-5.0 uupr=6349) ALKALINE PHOSPHATASE 196 U/L 40-150 (BEAKER) (test ljjr=773) BILIRUBIN TOTAL (BEAKER) 7.5 mg/dL 0.2-1.2 (test mnqw=201) SODIUM (BEAKER) (test 140 meq/L 136-145 ucco=330) POTASSIUM (BEAKER) (test 3.3 meq/L 3.5-5.1 fnkl=193) CHLORIDE (BEAKER) (test 117 meq/L 98-107 pvfn=443) CO2 (BEAKER) (test 23 meq/L 22-29 lypm=272) BLOOD UREA NITROGEN 20 mg/dL 7-21 (BEAKER) (test nzjx=134) CREATININE (BEAKER) (test 1.23 mg/dL 0.57-1.25 xrxh=303) GLUCOSE RANDOM (BEAKER) 148 mg/dL 70-105 (test ihyc=433) CALCIUM (BEAKER) (test 9.0 mg/dL 8.4-10.2 uolm=857) AST (SGOT) (BEAKER) (test 39 U/L 5-34 sfyu=688) ALT (SGPT) (BEAKER) (test 35 U/L 6-55 xgcs=810) EGFR (BEAKER) (test 62 mL/min/1.73 sq m ESTIMATED GFR IS NOT sptf=7482) ACCURATE CREATININE CLEARANCE IN PREDICTING GLOMERULAR FILTRATION RATE. ESTIMATED GFR IS NOT APPLICABLE FOR DIALYSIS PATIENTS. Specimen moderately [id number] 04:52:00 Test Item Value Reference Range Comments PHOSPHORUS (BEAKER) (test qcff=933) 1.6 mg/dL 2.3-4.7 [id number] 04:52:00 Test Item Value Reference Range Comments MAGNESIUM (BEAKER) (test fdzg=396) 1.8 mg/dL 1.6-2.6 CBC W/PLT COUNT & AUTO [id number] 04:12:00 Test Item Value Reference Range Comments WHITE BLOOD CELL COUNT 5.4 K/ L 3.5-10.5 (BEAKER) (test hnsk=343) RED BLOOD CELL COUNT (BEAKER) 2.18 M/ L 4.63-6.08 (test xvqi=334) HEMOGLOBIN (BEAKER) (test 7.8 GM/DL 13.7-17.5 qbru=231) HEMATOCRIT (BEAKER) (test 24.3 % 40.1-51.0 gyyv=874) MEAN CORPUSCULAR VOLUME 111.5 fL 79.0-92.2 (BEAKER) (test lkjg=078) MEAN CORPUSCULAR HEMOGLOBIN 35.8 pg 25.7-32.2 (BEAKER) (test lpgr=470) MEAN CORPUSCULAR HEMOGLOBIN 32.1 GM/DL 32.3-36.5 CONC (BEAKER) (test eohk=328) RED CELL DISTRIBUTION WIDTH Unable to report due to (BEAKER) (test yrqt=197) abnormal RBC population distribution. PLATELET COUNT (BEAKER) (test 27 K/CU MM 150-450 rmcu=702) MEAN PLATELET VOLUME (BEAKER) 10.6 fL 9.4-12.4 (test gjlo=467) NUCLEATED RED BLOOD CELLS 0 /100 WBC 0-0 (BEAKER) (test vism=475) NEUTROPHILS RELATIVE PERCENT 74 % (BEAKER) (test wmos=458) LYMPHOCYTES RELATIVE PERCENT 13 % (BEAKER) (test gzyv=518) MONOCYTES RELATIVE PERCENT 9 % (BEAKER) (test dfda=472) EOSINOPHILS RELATIVE PERCENT 5 % (BEAKER) (test venh=412) BASOPHILS RELATIVE PERCENT 0 % (BEAKER) (test lesw=310) NEUTROPHILS ABSOLUTE COUNT 3.99 K/ L 1.78-5.38 (BEAKER) (test yeka=203) LYMPHOCYTES ABSOLUTE COUNT 0.68 K/ L 1.32-3.57 (BEAKER) (test yjdh=748) MONOCYTES ABSOLUTE COUNT 0.46 K/ L 0.30-0.82 (BEAKER) (test espp=721) EOSINOPHILS ABSOLUTE COUNT 0.25 K/ L 0.04-0.54 (BEAKER) (test hwuk=288) BASOPHILS ABSOLUTE COUNT 0.01 K/ L 0.01-0.08 (BEAKER) (test xkbu=213) IMMATURE GRANULOCYTES-RELATIVE 0 % 0-1 PERCENT (BEAKER) (test smam=4549) B-TYPE NATRIURETIC FACTOR (BNP)2019-05-06 04:10:00 Test Item Value Reference Range Comments B-TYPE NATRIURETIC PEPTIDE (BEAKER) (test 347 pg/mL 0-100 rckt=507) PROTHROMBIN [id number] 04:00:00 Test Item Value Reference Range Comments PROTIME (BEAKER) (test jrfu=379) 31.4 seconds 11.9-14.2 INR (BEAKER) (test cpfz=500) 3.2 <=5.9 Effective 10/09/2018: PT Reference Range ChangeNew: 11.9-14.2 Previous: 11.7- 14.7RECOMMENDED COUMADIN/WARFARIN INR THERAPY RANGESSTANDARD DOSE: 2.0-3.0 Includes: PROPHYLAXIS for venous thrombosis, systemic embolization; TREATMENT for venous thrombosis and/or pulmonary embolus.HIGH RISK: Target INR is2.5-3.5 for patients wiht mechanical heart valves.POCT-GLUCOSE [id number] 21:22:00 Test Item Value Reference Range Comments POC-GLUCOSE METER (BEAKER) 155 mg/dL 70-110 : TESTED AT [address] (test lrow=7170) [facility], [address]: Cosmetic Sales Advisor/Contact Lens Molder CS=[id number] for GENE JARQUIN [id number] 20:06:00 Test Item Value Reference Range Comments SODIUM (BEAKER) (test ginw=720) 140 meq/L 136-145 POTASSIUM (BEAKER) (test ihaa=550) 3.3 meq/L 3.5-5.1 CHLORIDE (BEAKER) (test czmo=643) 115 meq/L 98-107 CO2 (BEAKER) (test micw=032) 23 meq/L 22-29 Call [phone] with resultsPOCT-GLUCOSE [id number] 17:14:00 Test Item Value Reference Range Comments POC-GLUCOSE METER (BEAKER) 116 mg/dL 70-110 : TESTED AT [address] (test kwsw=4999) [facility], [id number]: Cosmetic Sales Advisor/Contact Lens Molder [phone] for QUEEN SNIDER POCT-GLUCOSE [id number] 12:24:00 Test Item Value Reference Range Comments POC-GLUCOSE METER (BEAKER) 172 mg/dL 70-110 : TESTED AT [address] (test rggb=4188) [facility], [address]: Cosmetic Sales Advisor/Contact Lens Molder [phone] for QUEEN SNIDER PROTEIN ELECTROPHORESIS, [id number] 11:41:00 Test Item Value Reference Range Comments ALBUMIN FRACTION (BEAKER) 1.9 g/dL 3.5-5.5 (test jvgq=794) ALPHA 1 FRACTION (BEAKER) 0.1 g/dL 0.2-0.4 (test ukla=370) ALPHA 2 FRACTION (BEAKER) 0.3 g/dL 0.5-0.9 (test qrhh=736) BETA FRACTION (BEAKER) (test 0.6 g/dL 0.6-1.1 vehw=730) GAMMA GLOBULIN FRACTION 2.1 g/dL 0.7-1.7 (BEAKER) (test obwl=945) INTERPRETATION-119 (BEAKER) Gamma globulins are diffusely (test adqg=2971) increased with a decrease in albumin and alpha globulins. Results indicate liver dysfunction with decreased serum protein production. [id number] (BEAKER) Harman Saenz MD (electronic (test zlxu=3630) signature) PROTEIN TOTAL SERUM, SPEP 5.0 gm/dL 6.0-8.3 (BEAKER) (test jiaf=6180) CBC W/PLT COUNT & AUTO [id number] 10:17:00 Test Item Value Reference Range Comments WHITE BLOOD CELL COUNT 5.0 K/ L 3.5-10.5 (BEAKER) (test micr=399) RED BLOOD CELL COUNT (BEAKER) 2.19 M/ L 4.63-6.08 (test hesi=195) HEMOGLOBIN (BEAKER) (test 7.8 GM/DL 13.7-17.5 jfil=966) HEMATOCRIT (BEAKER) (test 24.1 % 40.1-51.0 gxob=189) MEAN CORPUSCULAR VOLUME 110.0 fL 79.0-92.2 (BEAKER) (test taic=201) MEAN CORPUSCULAR HEMOGLOBIN 35.6 pg 25.7-32.2 (BEAKER) (test mcjf=564) MEAN CORPUSCULAR HEMOGLOBIN 32.4 GM/DL 32.3-36.5 CONC (BEAKER) (test joxk=615) RED CELL DISTRIBUTION WIDTH Unable to report due to (BEAKER) (test gzkx=333) abnormal RBC population distribution. PLATELET COUNT (BEAKER) (test 36 K/CU MM 150-450 qyji=807) MEAN PLATELET VOLUME (BEAKER) 10.4 fL 9.4-12.4 (test dhej=334) NUCLEATED RED BLOOD CELLS 0 /100 WBC 0-0 (BEAKER) (test nvjn=820) NEUTROPHILS RELATIVE PERCENT 82 % (BEAKER) (test ixri=572) LYMPHOCYTES RELATIVE PERCENT 9 % (BEAKER) (test qvif=648) MONOCYTES RELATIVE PERCENT 8 % (BEAKER) (test zane=430) EOSINOPHILS RELATIVE PERCENT 1 % (BEAKER) (test yfgb=305) BASOPHILS RELATIVE PERCENT 0 % (BEAKER) (test xjkn=451) NEUTROPHILS ABSOLUTE COUNT 4.14 K/ L 1.78-5.38 (BEAKER) (test wnpk=547) LYMPHOCYTES ABSOLUTE COUNT 0.43 K/ L 1.32-3.57 (BEAKER) (test wdnj=760) MONOCYTES ABSOLUTE COUNT 0.38 K/ L 0.30-0.82 (BEAKER) (test wvwi=571) EOSINOPHILS ABSOLUTE COUNT 0.03 K/ L 0.04-0.54 (BEAKER) (test zgyd=623) BASOPHILS ABSOLUTE COUNT 0.00 K/ L 0.01-0.08 (BEAKER) (test kfto=347) IMMATURE GRANULOCYTES-RELATIVE 1 % 0-1 PERCENT (BEAKER) (test wyky=1886) (CELLAVISION MANUAL DIFF)2019-05-05 10:17:00 Test Item Value Reference Range Comments TOTAL COUNTED (BEAKER) (test fyzq=9778) WBC MORPHOLOGY (BEAKER) (test rvlr=805) Normal PLT MORPHOLOGY (BEAKER) (test xtqb=735) Normal ANISOCYTOSIS (BEAKER) (test hxqg=237) 1+ few MICROCYTES (BEAKER) (test ctee=813) 1+ few MACROCYTES (BEAKER) (test xncp=066) 1+ few POIKILOCYTES (BEAKER) (test fmap=575) 1+ few MEG CELLS (BEAKER) (test vgpy=019) 1+ few PERIPHERAL BLOOD SMEAR - PATHOLOGIST [id number] 10:12:00 Test Item Value Reference Range Comments PERIPHERAL SMR REVIEW No circulating blasts. No (BEAKER) (test bkep=5250) significantly increased schistocytes. [id number]-[id number] Thomas Araujo, (BEAKER) (test fkek=4969) M.DPorsha(electronic signature) HEPATIC FUNCTION [id number] 07:20:00 Test Item Value Reference Range Comments TOTAL PROTEIN (BEAKER) (test erys=590) 5.2 gm/dL 6.0-8.3 ALBUMIN (BEAKER) (test iapc=5380) 1.7 g/dL 3.5-5.0 BILIRUBIN TOTAL (BEAKER) (test ubup=256) 8.1 mg/dL 0.2-1.2 BILIRUBIN DIRECT (BEAKER) (test tcqk=087) 3.6 mg/dL 0.1-0.5 ALKALINE PHOSPHATASE (BEAKER) (test btln=949) 183 U/L 40-150 AST (SGOT) (BEAKER) (test gwsu=652) 41 U/L 5-34 ALT (SGPT) (BEAKER) (test jhlv=787) 36 U/L 6-55 Specimen moderately ictericPOCT-GLUCOSE [id number] 07:14:00 Test Item Value Reference Range Comments POC-GLUCOSE METER (BEAKER) 126 mg/dL 70-110 : TESTED AT [address] (test qhrj=8528) [facility], [address]: Cosmetic Sales Advisor/Contact Lens Molder [phone] for [facility] SNIDER [id number] 07:01:00 Test Item Value Reference Range Comments MAGNESIUM (BEAKER) (test bwyj=850) 1.7 mg/dL 1.6-2.6 BASIC METABOLIC [id number] 07:01:00 Test Item Value Reference Range Comments SODIUM (BEAKER) (test 138 meq/L 136-145 lexr=080) POTASSIUM (BEAKER) (test 2.9 meq/L 3.5-5.1 rfsh=492) CHLORIDE (BEAKER) (test 113 meq/L 98-107 pvgz=407) CO2 (BEAKER) (test 23 meq/L 22-29 swts=314) BLOOD UREA NITROGEN 20 mg/dL 7-21 (BEAKER) (test rvvt=707) CREATININE (BEAKER) (test 1.08 mg/dL 0.57-1.25 bvnm=362) GLUCOSE RANDOM (BEAKER) 129 mg/dL 70-105 (test jzta=454) CALCIUM (BEAKER) (test 8.9 mg/dL 8.4-10.2 wbeh=159) EGFR (BEAKER) (test 72 mL/min/1.73 sq m ESTIMATED GFR IS NOT hsfi=0845) ACCURATE CREATININE CLEARANCE IN PREDICTING GLOMERULAR FILTRATION RATE. ESTIMATED GFR IS NOT APPLICABLE FOR DIALYSIS PATIENTS. Specimen moderately ictericPOCT-GLUCOSE [id number] 20:37:00 Test Item Value Reference Range Comments POC-GLUCOSE METER (BEAKER) 152 mg/dL 70-110 : TESTED AT [address] (test towe=1533) [facility], [address]: Cosmetic Sales Advisor/Contact Lens Molder [phone] for SUZY RIOS POCT-GLUCOSE [id number] 17:07:00 Test Item Value Reference Range Comments POC-GLUCOSE METER (BEAKER) 85 mg/dL 70-110 : TESTED AT [address] (test ozrn=7632) [facility], [address]: Cosmetic Sales Advisor/Contact Lens Molder [phone] for [facility] SNIDER POCT-GLUCOSE [id number] 12:16:00 Test Item Value Reference Range Comments POC-GLUCOSE METER (BEAKER) 214 mg/dL 70-110 : TESTED AT [address] (test tsoz=2346) [facility], [address]: Cosmetic Sales Advisor/Contact Lens Molder [phone] for [facility] SNIDER POCT-GLUCOSE [id number] 07:29:00 Test Item Value Reference Range Comments POC-GLUCOSE METER (BEAKER) 133 mg/dL 70-110 : TESTED AT [address] (test rmet=8831) [facility], [address]: Cosmetic Sales Advisor/Contact Lens Molder KM=[phone] for [facility] SNIDER HEPATIC FUNCTION [id number] 07:10:00 Test Item Value Reference Range Comments TOTAL PROTEIN (BEAKER) (test 5.4 gm/dL 6.0-8.3 Specimen slightly hemolyzed vvtn=534) ALBUMIN (BEAKER) (test 1.8 g/dL 3.5-5.0 Specimen slightly hemolyzed whzn=8777) BILIRUBIN TOTAL (BEAKER) (test 8.5 mg/dL 0.2-1.2 Specimen slightly hemolyzed duwo=472) BILIRUBIN DIRECT (BEAKER) (test 4.0 mg/dL 0.1-0.5 Specimen slightly hemolyzed xrmx=483) ALKALINE PHOSPHATASE (BEAKER) 171 U/L 40-150 (test akyk=488) AST (SGOT) (BEAKER) (test 46 U/L 5-34 Specimen slightly hemolyzed abdm=988) ALT (SGPT) (BEAKER) (test 37 U/L 6-55 Specimen slightly hemolyzed olbe=633) Specimen moderately [id number] 06:55:00 Test Item Value Reference Range Comments MAGNESIUM (BEAKER) (test 1.8 mg/dL 1.6-2.6 Specimen slightly hemolyzed uhap=255) BASIC METABOLIC [id number] 06:55:00 Test Item Value Reference Range Comments SODIUM (BEAKER) (test 141 meq/L 136-145 fucr=026) POTASSIUM (BEAKER) (test 3.6 meq/L 3.5-5.1 Specimen slightly dege=741) hemolyzed CHLORIDE (BEAKER) (test 117 meq/L 98-107 tvsd=839) CO2 (BEAKER) (test 22 meq/L 22-29 xtvr=245) BLOOD UREA NITROGEN 19 mg/dL 7-21 (BEAKER) (test uccp=467) CREATININE (BEAKER) (test 1.12 mg/dL 0.57-1.25 Specimen slightly bdaj=115) hemolyzed GLUCOSE RANDOM (BEAKER) 147 mg/dL 70-105 (test sepl=392) CALCIUM (BEAKER) (test 9.3 mg/dL 8.4-10.2 peua=182) EGFR (BEAKER) (test 69 mL/min/1.73 sq m ESTIMATED GFR IS NOT bcus=2325) ACCURATE CREATININE CLEARANCE IN PREDICTING GLOMERULAR FILTRATION RATE. ESTIMATED GFR IS NOT APPLICABLE FOR DIALYSIS PATIENTS. Specimen moderately ictericCBC W/PLT COUNT & AUTO [id number] 06: 54:00 Test Item Value Reference Range Comments WHITE BLOOD CELL COUNT 4.9 K/ L 3.5-10.5 (BEAKER) (test ayqs=965) RED BLOOD CELL COUNT (BEAKER) 2.20 M/ L 4.63-6.08 (test rkqj=396) HEMOGLOBIN (BEAKER) (test 7.9 GM/DL 13.7-17.5 tabv=237) HEMATOCRIT (BEAKER) (test 24.0 % 40.1-51.0 jzck=440) MEAN CORPUSCULAR VOLUME 109.1 fL 79.0-92.2 Discordant MCV results (BEAKER) (test exif=501) compared to previous results; clinical correlation required. MEAN CORPUSCULAR HEMOGLOBIN 35.9 pg 25.7-32.2 (BEAKER) (test urpq=379) MEAN CORPUSCULAR HEMOGLOBIN 32.9 GM/DL 32.3-36.5 CONC (BEAKER) (test iisi=638) RED CELL DISTRIBUTION WIDTH 26.7 % 11.6-14.4 (BEAKER) (test hfxr=232) PLATELET COUNT (BEAKER) (test 32 K/CU MM 150-450 udck=821) MEAN PLATELET VOLUME (BEAKER) 10.7 fL 9.4-12.4 (test sofb=381) NUCLEATED RED BLOOD CELLS 0 /100 WBC 0-0 (BEAKER) (test uqdp=566) NEUTROPHILS RELATIVE PERCENT 89 % (BEAKER) (test jdeq=682) LYMPHOCYTES RELATIVE PERCENT 6 % (BEAKER) (test pndu=329) MONOCYTES RELATIVE PERCENT 5 % (BEAKER) (test snmc=545) EOSINOPHILS RELATIVE PERCENT 0 % (BEAKER) (test vjcf=990) BASOPHILS RELATIVE PERCENT 0 % (BEAKER) (test zurz=046) NEUTROPHILS ABSOLUTE COUNT 4.33 K/ L 1.78-5.38 (BEAKER) (test unke=301) LYMPHOCYTES ABSOLUTE COUNT 0.27 K/ L 1.32-3.57 (BEAKER) (test rgpf=967) MONOCYTES ABSOLUTE COUNT 0.22 K/ L 0.30-0.82 (BEAKER) (test hygb=763) EOSINOPHILS ABSOLUTE COUNT 0.02 K/ L 0.04-0.54 (BEAKER) (test nezc=344) BASOPHILS ABSOLUTE COUNT 0.01 K/ L 0.01-0.08 (BEAKER) (test rjte=179) IMMATURE GRANULOCYTES-RELATIVE 1 % 0-1 PERCENT (BEAKER) (test tgyq=6418) PROTHROMBIN TIME/[id number] 06:20:00 Test Item Value Reference Range Comments PROTIME (BEAKER) (test hpqp=290) 29.0 seconds 11.9-14.2 INR (BEAKER) (test xaac=384) 2.9 <=5.9 Effective 10/09/2018: PT Reference Range ChangeNew: 11.9-14.2 Previous: 11.7- 14.7RECOMMENDED COUMADIN/WARFARIN INR THERAPY RANGESSTANDARD DOSE: 2.0-3.0 Includes: PROPHYLAXIS for venous thrombosis, systemic embolization; TREATMENT for venous thrombosis and/or pulmonary embolus.HIGH RISK: Target INR is2.5-3.5 for patients wiht mechanical heart valves.POCT-GLUCOSE [id number] 20:54:00 Test Item Value Reference Range Comments POC-GLUCOSE METER (BEAKER) 149 mg/dL 70-110 : TESTED AT [facility] [address] (test acmt=8821) [facility], [address]: Cosmetic Sales Advisor/Contact Lens Molder [phone] for SUZY RIOS POCT-GLUCOSE [id number] 16:55:00 Test Item Value Reference Range Comments POC-GLUCOSE METER (BEAKER) 185 mg/dL 70-110 : TESTED AT [facility] [address] [facility] (test yids=7643) [facility], [address]: Cosmetic Sales Advisor/Contact Lens Molder [phone] for RAQUEL RESTREPO POCT-GLUCOSE [id number] 11:47:00 Test Item Value Reference Range Comments POC-GLUCOSE METER (BEAKER) 81 mg/dL 70-110 : TESTED AT [facility] [address] [facility] (test xjbz=0980) [facility], [address]: Cosmetic Sales Advisor/Contact Lens Molder GP=[phone] for YVETTE SCHAEFER CBC W/PLT COUNT & AUTO [id number] 10:19:00 Test Item Value Reference Range Comments WHITE BLOOD CELL COUNT 4.6 K/ L 3.5-10.5 (BEAKER) (test bhtz=888) RED BLOOD CELL COUNT (BEAKER) 1.80 M/ L 4.63-6.08 (test poxx=271) HEMOGLOBIN (BEAKER) (test 6.4 GM/DL 13.7-17.5 mqrz=781) HEMATOCRIT (BEAKER) (test 20.6 % 40.1-51.0 kjfl=200) MEAN CORPUSCULAR VOLUME 114.4 fL 79.0-92.2 (BEAKER) (test wleq=737) MEAN CORPUSCULAR HEMOGLOBIN 35.6 pg 25.7-32.2 (BEAKER) (test snzn=208) MEAN CORPUSCULAR HEMOGLOBIN 31.1 GM/DL 32.3-36.5 CONC (BEAKER) (test yuoy=521) RED CELL DISTRIBUTION WIDTH Unable to report due to (BEAKER) (test hotb=943) abnormal RBC population distribution. PLATELET COUNT (BEAKER) (test 36 K/CU MM 150-450 Discordant PLT results zaqn=180) compared to previous results; clinical correlation required. MEAN PLATELET VOLUME (BEAKER) 10.1 fL 9.4-12.4 (test njdb=209) NUCLEATED RED BLOOD CELLS 0 /100 WBC 0-0 (BEAKER) (test bdnf=912) (CELLAVISION MANUAL DIFF)2019-05-03 10:19:00 Test Item Value Reference Range Comments NEUTROPHILS - REL (CELLAVISION)(BEAKER) (test 79 % nbis=6761) LYMPHOCYTES - REL (CELLAVISION)(BEAKER) (test 8 % oxwh=9668) MONOCYTES - REL (CELLAVISION)(BEAKER) (test 5 % xuox=6947) EOSINOPHILS - REL (CELLAVISION)(BEAKER) (test 4 % sccz=4008) BANDS - REL (CELLAVISION)(BEAKER) (test 4 % 0-10 nptt=0581) NEUTROPHILS - ABS (CELLAVISION)(BEAKER) (test 3.63 K/ul 1.78-5.38 nayk=5148) LYMPHOCYTES - ABS (CELLAVISION)(BEAKER) (test 0.37 K/ul 1.32-3.57 yusn=9991) MONOCYTES - ABS (CELLAVISION)(BEAKER) (test 0.23 K/uL 0.30-0.82 htsw=5723) EOSINOPHILS - ABS (CELLAVISION)(BEAKER) (test 0.18 K/uL 0.04-0.54 xfkz=9014) BANDS - ABS (CELLAVISION)(BEAKER) (test 0.18 K/uL 0.00-0.80 yoon=7798) TOTAL COUNTED (BEAKER) (test fjgi=1366) 100 WBC MORPHOLOGY (BEAKER) (test xukn=758) Normal PLT MORPHOLOGY (BEAKER) (test xlym=561) Normal POLYCHROMATOPHILLIC RBCS(BEAKER) (test ujmf=129) 1+ few ANISOCYTOSIS (BEAKER) (test oyut=208) 1+ few MACROCYTES (BEAKER) (test oqml=610) 1+ few POIKILOCYTES (BEAKER) (test twsl=766) 2+ moderate MEG CELLS (BEAKER) (test rldc=003) 2+ moderate BASOPHILIC STIPPLING (BEAKER) (test bfig=977) Present ARTIFACT (CELLAVISION)(BEAKER) (test vfte=6776) Present PLATELET CONCENTRATION (CELLAVISION)(BEAKER) Decreased (test mxhl=6396) Received comment: User comments: Slide comments:BLOOD [id number] 09:01:00 Test Item Value Reference Range Comments CULTURE (BEAKER) (test muee=6199) No growth in 5 days BLOOD [id number] 09:01:00 Test Item Value Reference Range Comments CULTURE (BEAKER) (test pdei=3808) No growth in 5 days POCT-GLUCOSE [id number] 08:59:00 Test Item Value Reference Range Comments POC-GLUCOSE METER (BEAKER) 115 mg/dL 70-110 : TESTED AT [facility] [address] [facility] (test hibq=1280) [facility], [address]: Cosmetic Sales Advisor/Contact Lens Molder [phone] for RAQUEL RESTREPO POCT-GLUCOSE [id number] 08:20:00 Test Item Value Reference Range Comments POC-GLUCOSE METER (BEAKER) 73 mg/dL 70-110 : TESTED AT [address] (test eaom=4324) [facility], [address]: Cosmetic Sales Advisor/Contact Lens Molder [phone] for RAQUEL RESTREPO HEPATIC FUNCTION [id number] 03:17:00 Test Item Value Reference Range Comments TOTAL PROTEIN (BEAKER) (test zizq=048) 4.9 gm/dL 6.0-8.3 ALBUMIN (BEAKER) (test utzj=0886) 1.7 g/dL 3.5-5.0 BILIRUBIN TOTAL (BEAKER) (test zmml=775) 8.6 mg/dL 0.2-1.2 BILIRUBIN DIRECT (BEAKER) (test spto=232) 4.2 mg/dL 0.1-0.5 ALKALINE PHOSPHATASE (BEAKER) (test tsai=579) 128 U/L 40-150 AST (SGOT) (BEAKER) (test zqvr=369) 36 U/L 5-34 ALT (SGPT) (BEAKER) (test fwey=806) 34 U/L 6-55 Call results [id number] moderately [id number] 03:16:00 Test Item Value Reference Range Comments PHOSPHORUS (BEAKER) (test pyyt=643) 2.4 mg/dL 2.3-4.7 Call results [id number] 03:16:00 Test Item Value Reference Range Comments MAGNESIUM (BEAKER) (test glor=223) 1.9 mg/dL 1.6-2.6 Call results [id number] 03:16:00 Test Item Value Reference Range Comments SODIUM (BEAKER) (test ckvh=645) 136 meq/L 136-145 POTASSIUM (BEAKER) (test kuex=041) 3.1 meq/L 3.5-5.1 CHLORIDE (BEAKER) (test vyoq=723) 113 meq/L 98-107 CO2 (BEAKER) (test fhfe=087) 20 meq/L 22-29 Call results [id number] METABOLIC [id number] 03:16:00 Test Item Value Reference Range Comments SODIUM (BEAKER) (test 136 meq/L 136-145 omck=712) POTASSIUM (BEAKER) (test 3.1 meq/L 3.5-5.1 niry=576) CHLORIDE (BEAKER) (test 113 meq/L 98-107 dzcp=450) CO2 (BEAKER) (test 20 meq/L 22-29 jvps=030) BLOOD UREA NITROGEN 26 mg/dL 7-21 (BEAKER) (test sbdj=771) CREATININE (BEAKER) (test 1.48 mg/dL 0.57-1.25 uuri=114) GLUCOSE RANDOM (BEAKER) 261 mg/dL 70-105 (test ksyo=772) CALCIUM (BEAKER) (test 9.4 mg/dL 8.4-10.2 osxy=705) EGFR (BEAKER) (test 50 mL/min/1.73 sq m ESTIMATED GFR IS NOT fllf=7914) ACCURATE CREATININE CLEARANCE IN PREDICTING GLOMERULAR FILTRATION RATE. ESTIMATED GFR IS NOT APPLICABLE FOR DIALYSIS PATIENTS. Call results [id number] moderately ictericCREATINE KINASE (CK) 03:16:00 Test Item Value Reference Range Comments CREATINE KINASE TOTAL (BEAKER) (test mfwy=056) 30 U/L 29-200 Call results [id number], [id number] 03:09:00 Test Item Value Reference Range Comments CALCIUM IONIZED (BEAKER) (test iwbo=469) 1.40 mmol/L 1.12-1.27 PH, BLOOD (BEAKER) (test nhvf=8753) 7.32 POCT-GLUCOSE [id number] 21:35:00 Test Item Value Reference Range Comments POC-GLUCOSE METER (BEAKER) 117 mg/dL 70-110 : TESTED AT [facility] [address] (test umiz=5006) [facility], [address]: Cosmetic Sales Advisor/Contact Lens Molder [phone] for JASMINE, CHANEL RAD, CHEST, 1 VIEW, NON [id number] 19:50:00Reason for exam:->Left pleural effusion s/p thoracentesisShould this be performed at the bedside?-> YesFINAL REPORT Clinical History: Left pleural effusion s /p thoracentesis. Comparison Study: April 29, 2019 Findings: The cardiac silhouette is enlarged. Mild interstitial pulmonary markings are seen. The opacity in the left lung base has significantly improved. The pleural spaces are now clear. There is no pneumothorax. No significant bony or soft tissue abnormalities are seen. Impression: Cardiomegaly. No pleural effusion or pneumothorax. Improvement in left lung base opacity. Signed: Angelique Mcgheeort Verified Date/Time: 05/02/2019 19:50:01 Reading Location: [facility] C013 Consult Reading Room U/S, RENAL, [id number] 19:07:00Reason for exam:-& gt;AKIShould this be performed at the bedside?->YesFINAL REPORT Renal ultrasound. Clinical History: ABHINAV. Comparison Study: CT scan dated April 24, 2019. Findings: The right kidney measures 11.5 x 6.4 x 6.5 cm and left kidney measures 14.4 x 6.8 x 6.5 cm. There is no evidence of hydronephrosis, nephrolithiasis or renal mass oneither side. The echogenicity is normal bilaterally. The cortical thickness on the right side is 1.6cm and on the left side is 1.8 cm. Color flow is documented to both kidneys. The bladder is partially filled with urine. Incidentally noted is ascites. Impression: Morphologically normal appearing kidneys bilaterally with no evidence of hydronephrosis. Signed: Angelique Mcghee Verified Date/Time: 2018 19:07:17 Reading Location: [facility] C013 Consult Reading Room U/S, [id number] 18:34:00Laterality?->LeftReason for exam:-> effusionShould this be performed at the bedside?->NoLabsto be Ordered:-> Body Fluid Culture (w/Gram Stain, C\T\S)Labs to be Ordered:->CytologyLabs to be Ordered:->Fungal CultureLabs to be Ordered:->Glucose+LDH+ProteinFINAL REPORT HISTORY: Left pleural effusion Following informed written consent, the patient's left posterior lateral chest wall was prepped and draped in the usual sterile manner. 2% lidocaine was given locally for anesthesia. No conscious sedation was administered. Vital signswere monitored and remained stable. Using ultrasound guidance and a 5 [place] angiocatheter, access was gained to the right posterior pleural space. Approximately 550 cc of red serous fluid was aspirated from the pleural space using a Vacutainer devices. Small samples of the fluid were submitted for the requested studies. At the conclusion of the procedure, the angiocatheter was removed. Overall, the patient tolerated the procedure well without immediate complications and was discharged from the department in stable condition. FINDINGS: Limited sonographic examination of the chest prior to the procedure demonstrates a moderate left pleural fluid collection. IMPRESSION: 1. Successful uncomplicated ultrasound guided left thoracentesis. Approximately 550 cc of red serous fluid was removed, as described above. Signed: Stu Garcia Verified Date/Time: 05/02/2019 18:34:33 Reading Location: [place] [address] Angio Body Reading Room PROTHROMBIN TIME/[id number] 15:20:00 Test Item Value Reference Range Comments PROTIME (BEAKER) (test cbgs=751) 25.6 seconds 11.9-14.2 INR (BEAKER) (test bhkn=247) 2.5 <=5.9 Effective 10/09/2018: PT Reference Range ChangeNew: 11.9-14.2 Previous: 11.7- 14.7RECOMMENDED COUMADIN/WARFARIN INR THERAPY RANGESSTANDARD DOSE: 2.0-3.0 Includes: PROPHYLAXIS for venous thrombosis, systemic embolization; TREATMENT for venous thrombosis and/or pulmonary embolus.HIGH RISK: Target INR is2.5-3.5 for patients wiht mechanical heart valves.POCT-GLUCOSE [id number] 11:44:00 Test Item Value Reference Range Comments POC-GLUCOSE METER (BEAKER) 170 mg/dL 70-110 : TESTED AT [facility] [address] (test ozju=6092) [facility], [id number]: Cosmetic Sales Advisor/Contact Lens Molder GD=[phone] for RAQUEL RESTREPO CBC W/PLT COUNT & AUTO [id number] 11:34:00 Test Item Value Reference Range Comments WHITE BLOOD CELL COUNT 7.1 K/ L 3.5-10.5 (BEAKER) (test mohd=222) RED BLOOD CELL COUNT (BEAKER) 1.84 M/ L 4.63-6.08 (test yfvb=950) HEMOGLOBIN (BEAKER) (test 6.6 GM/DL 13.7-17.5 zvvm=462) HEMATOCRIT (BEAKER) (test 20.7 % 40.1-51.0 lwan=005) MEAN CORPUSCULAR VOLUME 112.5 fL 79.0-92.2 (BEAKER) (test fcmv=002) MEAN CORPUSCULAR HEMOGLOBIN 35.9 pg 25.7-32.2 (BEAKER) (test swdf=899) MEAN CORPUSCULAR HEMOGLOBIN 31.9 GM/DL 32.3-36.5 CONC (BEAKER) (test pjyb=148) RED CELL DISTRIBUTION WIDTH Unable to report due to (BEAKER) (test fdwq=221) abnormal RBC population distribution. PLATELET COUNT (BEAKER) (test 18 K/CU MM 150-450 gtkv=994) MEAN PLATELET VOLUME (BEAKER) 10.3 fL 9.4-12.4 (test ynqv=774) NUCLEATED RED BLOOD CELLS 0 /100 WBC 0-0 (BEAKER) (test lozv=781) (CELLAVISION MANUAL DIFF)2019-05-02 11:34:00 Test Item Value Reference Range Comments NEUTROPHILS - REL (CELLAVISION)(BEAKER) (test 85 % hfbf=6772) LYMPHOCYTES - REL (CELLAVISION)(BEAKER) (test 9 % riyu=0533) MONOCYTES - REL (CELLAVISION)(BEAKER) (test 6 % omvk=3402) NEUTROPHILS - ABS (CELLAVISION)(BEAKER) (test 6.04 K/ul 1.78-5.38 vhet=2071) LYMPHOCYTES - ABS (CELLAVISION)(BEAKER) (test 0.64 K/ul 1.32-3.57 ufuy=5098) MONOCYTES - ABS (CELLAVISION)(BEAKER) (test 0.43 K/uL 0.30-0.82 tikx=1862) TOTAL COUNTED (BEAKER) (test hlum=2951) 100 MANUAL NRBC PER 100 CELLS (BEAKER) (test 2 /100 WBC 0-0 xrkp=5217) WBC MORPHOLOGY (BEAKER) (test hcre=733) Normal PLT MORPHOLOGY (BEAKER) (test yfrs=268) Normal POLYCHROMATOPHILLIC RBCS(BEAKER) (test kifo=123) 1+ few SCHISTOCYTES (BEAKER) (test ffqk=311) 1+ few MEG CELLS (BEAKER) (test uznq=842) 2+ moderate T4, [id number] 09:14:00 Test Item Value Reference Range Comments FREE T4 (BEAKER) (test etro=502) 0.53 ng/dL 0.70-1.48 COMPREHENSIVE METABOLIC [id number] 08:04:00 Test Item Value Reference Range Comments TOTAL PROTEIN (BEAKER) 5.2 gm/dL 6.0-8.3 (test dvrg=080) ALBUMIN (BEAKER) (test 1.8 g/dL 3.5-5.0 lgsj=8509) ALKALINE PHOSPHATASE 123 U/L 40-150 (BEAKER) (test lmof=287) BILIRUBIN TOTAL (BEAKER) 10.5 mg/dL 0.2-1.2 (test eiue=377) SODIUM (BEAKER) (test 140 meq/L 136-145 srpu=649) POTASSIUM (BEAKER) (test 2.6 meq/L 3.5-5.1 aklt=470) CHLORIDE (BEAKER) (test 114 meq/L 98-107 qujt=611) CO2 (BEAKER) (test 22 meq/L 22-29 vxpw=412) BLOOD UREA NITROGEN 30 mg/dL 7-21 (BEAKER) (test xjrm=277) CREATININE (BEAKER) (test 1.35 mg/dL 0.57-1.25 pehp=699) GLUCOSE RANDOM (BEAKER) 92 mg/dL 70-105 (test yhoi=344) CALCIUM (BEAKER) (test 10.5 mg/dL 8.4-10.2 bysy=918) AST (SGOT) (BEAKER) (test 46 U/L 5-34 aqcb=669) ALT (SGPT) (BEAKER) (test 36 U/L 6-55 evew=714) EGFR (BEAKER) (test 55 mL/min/1.73 sq m ESTIMATED GFR IS NOT pqkg=4228) ACCURATE CREATININE CLEARANCE IN PREDICTING GLOMERULAR FILTRATION RATE. ESTIMATED GFR IS NOT APPLICABLE FOR DIALYSIS PATIENTS. Specimen markedly ictericPOCT-GLUCOSE [id number] 07:56:00 Test Item Value Reference Range Comments POC-GLUCOSE METER (BEAKER) 85 mg/dL 70-110 : TESTED AT [facility] [address] [facility] (test gfnc=2131) [facility] [facility], [address]: Cosmetic Sales Advisor/Contact Lens Molder [phone] for RAQUEL RESTREPO HEPATIC FUNCTION [id number] 07:37:00 Test Item Value Reference Range Comments TOTAL PROTEIN (BEAKER) (test pvpz=622) 5.2 gm/dL 6.0-8.3 ALBUMIN (BEAKER) (test ulou=1553) 1.8 g/dL 3.5-5.0 BILIRUBIN TOTAL (BEAKER) (test pzqn=872) 10.5 mg/dL 0.2-1.2 BILIRUBIN DIRECT (BEAKER) (test ajpq=181) 4.8 mg/dL 0.1-0.5 ALKALINE PHOSPHATASE (BEAKER) (test itwy=465) 123 U/L 40-150 AST (SGOT) (BEAKER) (test pgnp=310) 46 U/L 5-34 ALT (SGPT) (BEAKER) (test tniu=699) 36 U/L 6-55 Specimen markedly [id number] 07:36:00 Test Item Value Reference Range Comments PHOSPHORUS (BEAKER) (test bjqc=518) 2.4 mg/dL 2.3-4.7 [id number] 07:36:00 Test Item Value Reference Range Comments MAGNESIUM (BEAKER) (test hwpe=219) 2.0 mg/dL 1.6-2.6 TSH/FREE T4 IF [id number] 07:09:00 Test Item Value Reference Range Comments THYROID STIMULATING HORMONE (BEAKER) (test 0.34 uIU/mL 0.35-4.94 ddos=142) [id number] 06:55:00 Test Item Value Reference Range Comments PARTIAL THROMBOPLASTIN TIME (BEAKER) (test 51.1 seconds 22.5-36.0 aimy=232) B-TYPE NATRIURETIC FACTOR (BNP)2019-05-02 06:48:00 Test Item Value Reference Range Comments B-TYPE NATRIURETIC PEPTIDE (BEAKER) (test 405 pg/mL 0-100 vkil=341) CALCIUM, [id number] 06:46:00 Test Item Value Reference Range Comments CALCIUM IONIZED (BEAKER) (test myva=147) 1.48 mmol/L 1.12-1.27 PH, BLOOD (BEAKER) (test ktcw=9727) 7.42 CALCIUM, [id number] 06:46:00 Test Item Value Reference Range Comments CALCIUM IONIZED (BEAKER) (test ovwl=118) 1.53 mmol/L 1.12-1.27 PH, BLOOD (BEAKER) (test cwxr=7471) 7.41 PROTHROMBIN [id number] 06:35:00 Test Item Value Reference Range Comments PROTIME (BEAKER) (test dove=881) 29.5 seconds 11.9-14.2 INR (BEAKER) (test yzzg=068) 3.0 <=5.9 Effective 10/09/2018: PT Reference Range ChangeNew: 11.9-14.2 Previous: 11.7- 14.7RECOMMENDED COUMADIN/WARFARIN INR THERAPY RANGESSTANDARD DOSE: 2.0-3.0 Includes: PROPHYLAXIS for venous thrombosis, systemic embolization; TREATMENT for venous thrombosis and/or pulmonary embolus.HIGH RISK: Target INR is2.5-3.5 for patients wiht mechanical heart valves.POCT-GLUCOSE [id number] 17:35:00 Test Item Value Reference Range Comments POC-GLUCOSE METER (BEAKER) 294 mg/dL 70-110 : [facility] [address] [facility] (test eipp=0237) [facility], [address]: Cosmetic Sales Advisor/Contact Lens Molder [phone] for SARAH HILLIARD [id number] 13:48:00 Test Item Value Reference Range Comments FIBRINOGEN LEVEL (BEAKER) (test vcmq=353) 117 mg/dl 225-434 Draw post CRYODraw post CRYODraw post [id number] 13:43:00 Test Item Value Reference Range Comments PARTIAL THROMBOPLASTIN TIME (BEAKER) (test 54.1 seconds 22.5-36.0 cykg=661) Draw post CRYODraw post CRYODraw post CRYOPROTHROMBIN TIME/[id number] 13:42: 00 Test Item Value Reference Range Comments PROTIME (BEAKER) (test awav=488) 29.3 seconds 11.9-14.2 INR (BEAKER) (test lktz=291) 3.0 <=5.9 Effective 10/09/2018: PT Reference Range ChangeNew: 11.9-14.2 Previous: 11.7- 14.7RECOMMENDED COUMADIN/WARFARIN INR THERAPY RANGESSTANDARD DOSE: 2.0-3.0 Includes: PROPHYLAXIS for venous thrombosis, systemic embolization; TREATMENT for venous thrombosis and/or pulmonary embolus.HIGH RISK: Target INR is2.5-3.5 for patients wiht mechanical heart valves.Draw post CRYODraw post CRYODraw post CRYOPOCT-GLUCOSE [id number] 12:52:00 Test Item Value Reference Range Comments POC-GLUCOSE METER (BENJAMINAKER) 96 mg/dL 70-110 : TESTED AT [address] (test yoxa=6973) [facility], [address]: Cosmetic Sales Advisor/Contact Lens Molder [phone] for SARAH HILLIARD POCT-GLUCOSE [id number] 11:18:00 Test Item Value Reference Range Comments POC-GLUCOSE METER (BENJAMINAKER) 111 mg/dL 70-110 : TESTED AT [address] (test ymtx=2287) [facility], [address]: Cosmetic Sales Advisor/Contact Lens Molder [phone] for SARAH HILLIARD PERIPHERAL BLOOD SMEAR - PATHOLOGIST [id number] 10:19:00 Test Item Value Reference Range Comments RBC MORPHOLOGY (BEAKER) Anisocytosis (test uadv=9015) RBC MORPHOLOGY (BEAKER) Poikilocytosis (test zwas=07421) RBC MORPHOLOGY (BEAKER) Acanthocytes (test kgwo=01249) RBC MORPHOLOGY (BEAKER) Shistocytes (test kfvw=48359) PERIPHERAL SMR REVIEW Cell counts confirmed. (BEAKER) (test bwsi=3806) Poikilocytosis includes occasional shistocytes - clinical correlation recommended. [id number] Trupti Almonte M.D. (electronic (BEAKER) (test gnat=6878) signature) CBC W/PLT COUNT & AUTO [id number] 07:58:00 Test Item Value Reference Range Comments WHITE BLOOD CELL COUNT 11.5 K/ L 3.5-10.5 (BEAKER) (test oohb=606) RED BLOOD CELL COUNT (BEAKER) 2.13 M/ L 4.63-6.08 (test nmzh=392) HEMOGLOBIN (BEAKER) (test 7.5 GM/DL 13.7-17.5 rvrm=588) HEMATOCRIT (BEAKER) (test 23.5 % 40.1-51.0 cpgb=636) MEAN CORPUSCULAR VOLUME 110.3 fL 79.0-92.2 (BEAKER) (test ivrk=001) MEAN CORPUSCULAR HEMOGLOBIN 35.2 pg 25.7-32.2 (BEAKER) (test wrsw=874) MEAN CORPUSCULAR HEMOGLOBIN 31.9 GM/DL 32.3-36.5 CONC (BEAKER) (test ebom=553) RED CELL DISTRIBUTION WIDTH Unable to report due to (BEAKER) (test myhp=455) abnormal Platelet population distribution. PLATELET COUNT (BEAKER) (test 25 K/CU MM 150-450 idau=702) MEAN PLATELET VOLUME (BEAKER) 10.5 fL 9.4-12.4 (test olql=288) NUCLEATED RED BLOOD CELLS 0 /100 WBC 0-0 (BEAKER) (test sqat=667) NEUTROPHILS RELATIVE PERCENT 84 % (BEAKER) (test wxji=969) LYMPHOCYTES RELATIVE PERCENT 7 % (BEAKER) (test lyrj=317) MONOCYTES RELATIVE PERCENT 8 % (BEAKER) (test bdlt=519) EOSINOPHILS RELATIVE PERCENT 0 % (BEAKER) (test aawb=040) BASOPHILS RELATIVE PERCENT 0 % (BEAKER) (test dwzj=817) NEUTROPHILS ABSOLUTE COUNT 9.63 K/ L 1.78-5.38 (BEAKER) (test kixp=413) LYMPHOCYTES ABSOLUTE COUNT 0.76 K/ L 1.32-3.57 (BEAKER) (test axgk=114) MONOCYTES ABSOLUTE COUNT 0.96 K/ L 0.30-0.82 (BEAKER) (test fxgk=273) EOSINOPHILS ABSOLUTE COUNT 0.01 K/ L 0.04-0.54 (BEAKER) (test zmfp=393) BASOPHILS ABSOLUTE COUNT 0.01 K/ L 0.01-0.08 (BEAKER) (test stfy=367) IMMATURE GRANULOCYTES-RELATIVE 1 % 0-1 PERCENT (BEAKER) (test qrzc=0924) CALCIUM, [id number] 05:46:00 Test Item Value Reference Range Comments CALCIUM IONIZED (BEAKER) (test owit=906) 1.50 mmol/L 1.12-1.27 PH, BLOOD (BEAKER) (test yigx=0218) 7.40 [id number] 05:14:00 Test Item Value Reference Range Comments AMMONIA (BEAKER) (test nplo=189) 88 mol/L 18-72 [id number] 05:12:00 Test Item Value Reference Range Comments HAPTOGLOBIN (BEAKER) (test pyvp=632) < mg/dL 14-258 PTH, [id number] 04:52:00 Test Item Value Reference Range Comments PARATHYROID HORMONE INTACT (BEAKER) (test 25.9 pg/mL 8.5-72.5 jfgu=607) [id number] 04:45:00 Test Item Value Reference Range Comments FIBRINOGEN LEVEL (BEAKER) (test vrim=441) < mg/dl 225-434 HEPATIC FUNCTION [id number] 04:37:00 Test Item Value Reference Range Comments TOTAL PROTEIN (BEAKER) (test 5.7 gm/dL 6.0-8.3 Specimen slightly hemolyzed mgev=096) ALBUMIN (BEAKER) (test 1.8 g/dL 3.5-5.0 Specimen slightly hemolyzed dslg=6220) BILIRUBIN TOTAL (BEAKER) (test 10.6 mg/dL 0.2-1.2 Specimen slightly hemolyzed ohlh=674) BILIRUBIN DIRECT (BEAKER) 4.8 mg/dL 0.1-0.5 Specimen slightly hemolyzed (test ioxw=440) ALKALINE PHOSPHATASE (BEAKER) 149 U/L 40-150 (test apbk=046) AST (SGOT) (BEAKER) (test 51 U/L 5-34 Specimen slightly hemolyzed dmrg=287) ALT (SGPT) (BEAKER) (test 38 U/L 6-55 Specimen slightly hemolyzed dpny=941) Specimen markedly ictericLACTATE DEHYDROGENASE (LDH)2019-05-01 04:37:00 Test Item Value Reference Range Comments LACTATE DEHYDROGENASE (BEAKER) 406 U/L 125-220 Specimen slightly hemolyzed (test ngdl=012) [id number] 04:36:00 Test Item Value Reference Range Comments MAGNESIUM (BEAKER) (test 2.0 mg/dL 1.6-2.6 Specimen slightly hemolyzed jdci=674) [id number] 04:36:00 Test Item Value Reference Range Comments PHOSPHORUS (BEAKER) (test 2.7 mg/dL 2.3-4.7 Specimen slightly hemolyzed pwgj=135) BASIC METABOLIC [id number] 04:36:00 Test Item Value Reference Range Comments SODIUM (BEAKER) (test 141 meq/L 136-145 zbmm=229) POTASSIUM (BEAKER) (test 3.5 meq/L 3.5-5.1 Specimen slightly ephj=584) hemolyzed CHLORIDE (BEAKER) (test 117 meq/L 98-107 svse=221) CO2 (BEAKER) (test 20 meq/L 22-29 jybo=450) BLOOD UREA NITROGEN 29 mg/dL 7-21 (BEAKER) (test rgek=318) CREATININE (BEAKER) (test 1.09 mg/dL 0.57-1.25 Specimen slightly locm=234) hemolyzed GLUCOSE RANDOM (BEAKER) 143 mg/dL 70-105 (test nucr=802) CALCIUM (BEAKER) (test 10.4 mg/dL 8.4-10.2 gbxb=339) EGFR (BEAKER) (test 71 mL/min/1.73 sq m ESTIMATED GFR IS NOT qtkc=8660) ACCURATE CREATININE CLEARANCE IN PREDICTING GLOMERULAR FILTRATION RATE. ESTIMATED GFR IS NOT APPLICABLE FOR DIALYSIS PATIENTS. Specimen markedly ictericCREATINE KINASE (CK)2019-05-01 04:36:00 Test Item Value Reference Range Comments CREATINE KINASE TOTAL (BEAKER) (test roio=428) 38 U/L 29-200 FIBRIN SOLUBLE [id number] 20:11:00 Test Item Value Reference Range Comments FIBRIN SOLUBLE MONOMER (BEAKER) (test zpgw=4915) Negative THROMBOELASTOGRAPH (TEG)2019-04-30 19:27:00 Test Item Value Reference Range Comments TEG ACTIVATED CLOTTING TIME (BEAKER) (test 5.8 minutes 4.0-7.0 jrke=6670) TEG FIBRINOGEN ACTIVITY (BEAKER) (test 18.5 degrees 61.0-73.0 nalv=0839) TEG PLT. AGGREGATION (BEAKER) (test imjb=1450) 11.2 MM 55.0-65.0 TEG FIBRINOLYSIS (BEAKER) (test olul=4789) 0.0 % 0.0-5.0 TGH ACTIVATED CLOTTING TIME (BEAKER) (test 5.4 minutes 4.0-7.0 mcli=6388) TGH FIBRINOGEN ACTIVITY (BEAKER) (test 22.8 degrees 61.0-73.0 ljll=3539) TGH PLT. AGGREGATION (BEAKER) (test qapx=1748) 14.4 MM 55.0-65.0 TGH FIBRINOLYSIS (BEAKER) (test xnje=2732) 0.0 % 0.0-5.0 URINALYSIS W/ [id number] 19:21:00 Test Item Value Reference Range Comments COLOR (BEAKER) (test acaj=310) Yellow CLARITY (BEAKER) (test inys=077) Clear SPECIFIC GRAVITY UA (BEAKER) (test wbin=255) 1.010 1.001-1.035 PH UA (BEAKER) (test lldm=434) 6.5 5.0-8.0 PROTEIN UA (BEAKER) (test tiiw=107) Negative Negative GLUCOSE UA (BEAKER) (test lfvj=608) Negative Negative KETONES UA (BEAKER) (test hixb=811) Negative Negative BILIRUBIN UA (BEAKER) (test irki=192) Negative Negative BLOOD UA (BEAKER) (test bdbe=093) Small Negative NITRITE UA (BEAKER) (test iusj=537) Negative Negative LEUKOCYTE ESTERASE UA (BEAKER) (test yqpz=908) Negative Negative UROBILINOGEN UA (BEAKER) (test luez=005) 0.2 mg/dL 0.2-1.0 RBC UA (BEAKER) (test quda=624) 5 /HPF WBC UA (BEAKER) (test igqu=465) 1 /HPF SQUAMOUS EPITHELIAL (BEAKER) (test hdlx=403) < /HPF SOURCE(BEAKER) (test wqge=5050) VITAMIN D, 70-[id number] 19:06:00 Test Item Value Reference Range Comments VITAMIN D 25-OH (BEAKER) (test dojm=4649) 5.2 ng/mL 6.6-49.9 Effective 02/21/2017: Reference Range ChangeNew: 6.6-49.9 ng/mL Previous: 13.0 -47.8 ng/mLRecommended Vitamin D Target Range: 30.0-40.0 ng/[id number] 18:40:00 Test Item Value Reference Range Comments FIBRINOGEN LEVEL (BEAKER) (test vctj=408) < mg/dl 225-434 [id number] 18:26:00 Test Item Value Reference Range Comments D-DIMER QUANTITATIVE (BEAKER) (test ovzj=519) 4.01 MG/L FEU <0.50 Intended Use: The D-Dimer Assay can be used to aid in the diagnosis of Deep Vein Thrombosis (DVT) and Pulmonary Embolism Disease (PED).In patients with low pre-test probability, various studies concerning STA Liatest D-dimer test have reported that with a cutoff value of 0.50 MG/L FEU, the Negative Predictive Value (NPV) regarding the exclusion of thrombosis is within 95-100% range.[id number] 18:17:00 Test Item Value Reference Range Comments PARTIAL THROMBOPLASTIN TIME (BEAKER) (test 56.3 seconds 22.5-36.0 vort=194) [id number] 18:11:00 Test Item Value Reference Range Comments SODIUM (BEAKER) (test eiun=492) 144 meq/L 136-145 POTASSIUM (BEAKER) (test egtq=721) 3.1 meq/L 3.5-5.1 CHLORIDE (BEAKER) (test wuzl=779) 119 meq/L 98-107 CO2 (BEAKER) (test kyzi=006) 23 meq/L 22-29 Please call [phone] with resultsBASIC METABOLIC [id number] 18:11:00 Test Item Value Reference Range Comments SODIUM (BEAKER) (test 144 meq/L 136-145 klgb=902) POTASSIUM (BEAKER) (test 3.1 meq/L 3.5-5.1 bbfz=959) CHLORIDE (BEAKER) (test 119 meq/L 98-107 pxck=286) CO2 (BEAKER) (test 23 meq/L 22-29 cmoo=528) BLOOD UREA NITROGEN 27 mg/dL 7-21 (BEAKER) (test rlnl=790) CREATININE (BEAKER) (test 1.29 mg/dL 0.57-1.25 mayt=963) GLUCOSE RANDOM (BEAKER) 154 mg/dL 70-105 (test rhrh=695) CALCIUM (BEAKER) (test 10.6 mg/dL 8.4-10.2 avsk=524) EGFR (BEAKER) (test 58 mL/min/1.73 sq m ESTIMATED GFR IS NOT ttti=8127) ACCURATE CREATININE CLEARANCE IN PREDICTING GLOMERULAR FILTRATION RATE. ESTIMATED GFR IS NOT APPLICABLE FOR DIALYSIS PATIENTS. Please call [phone] with resultsSpecimen moderately ictericPROTHROMBIN TIME/ [id number] 17:46:00 Test Item Value Reference Range Comments PROTIME (BEAKER) (test vunu=383) 38.6 seconds 11.9-14.2 INR (BEAKER) (test vxao=253) 4.2 <=5.9 Effective 10/09/2018: PT Reference Range ChangeNew: 11.9-14.2 Previous: 11.7- 14.7RECOMMENDED COUMADIN/WARFARIN INR THERAPY RANGESSTANDARD DOSE: 2.0-3.0 Includes: PROPHYLAXIS for venous thrombosis, systemic embolization; TREATMENT for venous thrombosis and/or pulmonary embolus.HIGH RISK: Target INR is2.5-3.5 for patients wiht mechanical heart valves.PLATELET [id number] 17:37:00 Test Item Value Reference Range Comments PLATELET COUNT (BEAKER) (test loet=322) 31 K/CU MM 150-450 POCT-GLUCOSE [id number] 16:52:00 Test Item Value Reference Range Comments POC-GLUCOSE METER (stickapps) 150 mg/dL 70-110 : TESTED AT [facility] [employer] [facility] (test lhyd=1798) [facility], [address]: Cosmetic Sales Advisor/Contact Lens Molder OU=[phone] for QUEEN SNIDER POCT-GLUCOSE [id number] 12:21:00 Test Item Value Reference Range Comments POC-GLUCOSE METER (stickapps) 156 mg/dL 70-110 : TESTED AT [facility] [address] [facility] (test chhv=7969) [facility], [address]: Cosmetic Sales Advisor/Contact Lens Molder [phone] for MANSI TILLEY POCT-GLUCOSE [id number] 07:48:00 Test Item Value Reference Range Comments POC-GLUCOSE METER (BEAKER) 193 mg/dL 70-110 : TESTED AT [facility] [address] [facility] (test lsdk=7078) [facility], [address]: Cosmetic Sales Advisor/Contact Lens Molder [phone] for QUEEN SNIDER BASIC METABOLIC [id number] 04:56:00 Test Item Value Reference Range Comments SODIUM (BEAKER) (test 144 meq/L 136-145 dhrq=086) POTASSIUM (BEAKER) (test 2.6 meq/L 3.5-5.1 nydg=494) CHLORIDE (BEAKER) (test 116 meq/L 98-107 audd=845) CO2 (BEAKER) (test 23 meq/L 22-29 nmpc=672) BLOOD UREA NITROGEN 24 mg/dL 7-21 (BEAKER) (test bvbg=235) CREATININE (BEAKER) (test 1.23 mg/dL 0.57-1.25 dxld=173) GLUCOSE RANDOM (BEAKER) 145 mg/dL 70-105 (test tmfq=834) CALCIUM (BEAKER) (test 10.2 mg/dL 8.4-10.2 knkg=911) EGFR (BEAKER) (test 62 mL/min/1.73 sq m ESTIMATED GFR IS NOT ykjx=4789) ACCURATE CREATININE CLEARANCE IN PREDICTING GLOMERULAR FILTRATION RATE. ESTIMATED GFR IS NOT APPLICABLE FOR DIALYSIS PATIENTS. Specimen markedly ictericHEPATIC FUNCTION [id number] 04:54:00 Test Item Value Reference Range Comments TOTAL PROTEIN (BEAKER) (test woka=576) 5.5 gm/dL 6.0-8.3 ALBUMIN (BEAKER) (test tamv=4868) 1.9 g/dL 3.5-5.0 BILIRUBIN TOTAL (BEAKER) (test pffk=864) 10.1 mg/dL 0.2-1.2 BILIRUBIN DIRECT (BEAKER) (test wokj=774) 5.0 mg/dL 0.1-0.5 ALKALINE PHOSPHATASE (BEAKER) (test zjfc=145) 143 U/L 40-150 AST (SGOT) (BEAKER) (test kian=420) 42 U/L 5-34 ALT (SGPT) (BEAKER) (test zaor=087) 36 U/L 6-55 Specimen markedly [id number] 04:52:00 Test Item Value Reference Range Comments MAGNESIUM (BEAKER) (test iqbu=763) 1.9 mg/dL 1.6-2.6 [id number] 04:52:00 Test Item Value Reference Range Comments PHOSPHORUS (BEAKER) (test cfaq=641) 2.6 mg/dL 2.3-4.7 URIC [id number] 04:52:00 Test Item Value Reference Range Comments URIC ACID (BEAKER) (test qbjz=250) 4.4 mg/dL 2.6-7.2 Specimen markedly ictericB-TYPE NATRIURETIC FACTOR (BNP)2019-04-30 04:30:00 Test Item Value Reference Range Comments B-TYPE NATRIURETIC PEPTIDE (BEAKER) (test 623 pg/mL 0-100 kuel=229) PROTHROMBIN [id number] 04:16:00 Test Item Value Reference Range Comments PROTIME (BEAKER) (test jcbz=093) 39.6 seconds 11.9-14.2 INR (BEAKER) (test edey=124) 4.4 <=5.9 Effective 10/09/2018: PT Reference Range ChangeNew: 11.9-14.2 Previous: 11.7- 14.7RECOMMENDED COUMADIN/WARFARIN INR THERAPY RANGESSTANDARD DOSE: 2.0-3.0 Includes: PROPHYLAXIS for venous thrombosis, systemic embolization; TREATMENT for venous thrombosis and/or pulmonary embolus.HIGH RISK: Target INR is2.5-3.5 for patients wiht mechanical heart valves.CBC W/PLT COUNT & AUTO [id number] 04:14:00 Test Item Value Reference Range Comments WHITE BLOOD CELL COUNT 9.1 K/ L 3.5-10.5 (BEAKER) (test yopk=554) RED BLOOD CELL COUNT (BEAKER) 1.84 M/ L 4.63-6.08 (test vsdv=607) HEMOGLOBIN (BEAKER) (test 6.7 GM/DL 13.7-17.5 jqqu=258) HEMATOCRIT (BEAKER) (test 20.7 % 40.1-51.0 sojo=674) MEAN CORPUSCULAR VOLUME 112.5 fL 79.0-92.2 (BEAKER) (test jsgu=906) MEAN CORPUSCULAR HEMOGLOBIN 36.4 pg 25.7-32.2 (BEAKER) (test vgyt=473) MEAN CORPUSCULAR HEMOGLOBIN 32.4 GM/DL 32.3-36.5 CONC (BEAKER) (test epns=398) RED CELL DISTRIBUTION WIDTH Unable to report due to (BEAKER) (test vdxn=076) abnormal RBC population distribution. PLATELET COUNT (BEAKER) (test 28 K/CU MM 150-450 eehd=637) MEAN PLATELET VOLUME (BEAKER) 10.3 fL 9.4-12.4 (test sgqf=226) NUCLEATED RED BLOOD CELLS 0 /100 WBC 0-0 (BEAKER) (test sjyz=660) NEUTROPHILS RELATIVE PERCENT 91 % (BEAKER) (test dkcn=092) LYMPHOCYTES RELATIVE PERCENT 4 % (BEAKER) (test dmyg=179) MONOCYTES RELATIVE PERCENT 3 % (BEAKER) (test fkrf=237) EOSINOPHILS RELATIVE PERCENT 0 % (BEAKER) (test pewu=636) BASOPHILS RELATIVE PERCENT 0 % (BEAKER) (test bmtf=808) NEUTROPHILS ABSOLUTE COUNT 8.32 K/ L 1.78-5.38 (BEAKER) (test umpf=671) LYMPHOCYTES ABSOLUTE COUNT 0.34 K/ L 1.32-3.57 (BEAKER) (test eqpc=834) MONOCYTES ABSOLUTE COUNT 0.30 K/ L 0.30-0.82 (BEAKER) (test yjnf=363) EOSINOPHILS ABSOLUTE COUNT 0.03 K/ L 0.04-0.54 (BEAKER) (test scnk=206) BASOPHILS ABSOLUTE COUNT 0.01 K/ L 0.01-0.08 (BEAKER) (test orvb=931) IMMATURE GRANULOCYTES-RELATIVE 1 % 0-1 PERCENT (BEAKER) (test hbho=2410) [id number] 04:04:00 Test Item Value Reference Range Comments AMMONIA (BEAKER) (test ynaa=515) 111 mol/L 18-72 CALCIUM, [id number] 04:00:00 Test Item Value Reference Range Comments CALCIUM IONIZED (BEAKER) (test asdg=664) 1.45 mmol/L 1.12-1.27 PH, BLOOD (BEAKER) (test pjwr=3479) 7.47 POCT-GLUCOSE [id number] 21:17:00 Test Item Value Reference Range Comments POC-GLUCOSE METER (BEAKER) 153 mg/dL 70-110 : TESTED AT [address] (test evol=0229) [facility], [address]: Cosmetic Sales Advisor/Contact Lens Molder [phone] for IZA DONNELLY RAD, CHEST, 1 VIEW, NON [id number] 15:00:00Reason for exam:->Fluid overloadShould this be performed at the bedside?->YesFINAL REPORT TECHNIQUE: Frontal chest radiograph dated 04/29/2019. CLINICAL HISTORY: Fluid overload COMPARISON STUDY: Chest radiographs dated 04/18/2019 IMPRESSION:There is a new, small left pneumothorax with associated atelectasis. Cardiomediastinal silhouette is normal in size. No pulmonary edema. No fracture. Signed: Jj Schneidereport Verified Date/Time: 04/29/2019 15 :00:53 Reading Location: [facility] Reading Room POCT-GLUCOSE [id number] 11:10:00 Test Item Value Reference Range Comments POC-GLUCOSE METER (BEAKER) 164 mg/dL 70-110 : TESTED AT [address] (test luez=0513) [facility], [id number]: Cosmetic Sales Advisor/Contact Lens Molder [phone] for NICHOLAS RAMOS BLOOD [id number] 09:10:00 Test Item Value Reference Range Comments CULTURE (BEAKER) From Aerobic Bottle Only (test pjgs=5620) Same organism has been isolated from cultures(s) of the same body site within 3 days. Repeat identification and susceptibility testing performed only after consultation with the clinical microbiology laboratory.Refer to previous culture ofMethicillin resistant Staphylococcus aureus GRAM STAIN RESULT From aerobic bottle (BEAKER) (test only: gram positive tqgd=1777) cocci in clusters HEPATIC FUNCTION [id number] 07:18:00 Test Item Value Reference Range Comments TOTAL PROTEIN (BEAKER) (test gdgn=149) 5.6 gm/dL 6.0-8.3 ALBUMIN (BEAKER) (test ygry=6642) 1.6 g/dL 3.5-5.0 BILIRUBIN TOTAL (BEAKER) (test nxzd=694) 10.2 mg/dL 0.2-1.2 BILIRUBIN DIRECT (BEAKER) (test wjbg=235) 5.4 mg/dL 0.1-0.5 ALKALINE PHOSPHATASE (BEAKER) (test iwgb=709) 146 U/L 40-150 AST (SGOT) (BEAKER) (test unop=229) 41 U/L 5-34 ALT (SGPT) (BEAKER) (test tesv=347) 39 U/L 6-55 Specimen markedly [id number] 07:16:00 Test Item Value Reference Range Comments MAGNESIUM (BEAKER) (test skiq=838) 1.9 mg/dL 1.6-2.6 BASIC METABOLIC [id number] 07:16:00 Test Item Value Reference Range Comments SODIUM (BEAKER) (test 140 meq/L 136-145 ssts=780) POTASSIUM (BEAKER) (test 3.1 meq/L 3.5-5.1 otca=349) CHLORIDE (BEAKER) (test 117 meq/L 98-107 sfoo=002) CO2 (BEAKER) (test 21 meq/L 22-29 rdin=087) BLOOD UREA NITROGEN 23 mg/dL 7-21 (BEAKER) (test cfmq=741) CREATININE (BEAKER) (test 1.05 mg/dL 0.57-1.25 oqsi=823) GLUCOSE RANDOM (BEAKER) 158 mg/dL 70-105 (test lvfn=124) CALCIUM (BEAKER) (test 9.9 mg/dL 8.4-10.2 kajo=033) EGFR (BEAKER) (test 74 mL/min/1.73 sq m ESTIMATED GFR IS NOT jthf=4023) ACCURATE CREATININE CLEARANCE IN PREDICTING GLOMERULAR FILTRATION RATE. ESTIMATED GFR IS NOT APPLICABLE FOR DIALYSIS PATIENTS. Specimen markedly [id number] 07:01:00 Test Item Value Reference Range Comments AMMONIA (BEAKER) (test nmqz=723) 124 mol/L 18-72 POCT-GLUCOSE [id number] 06:56:00 Test Item Value Reference Range Comments POC-GLUCOSE METER (BEAKER) 142 mg/dL 70-110 : TESTED AT [address] (test eoma=3827) [facility], [id number]: Cosmetic Sales Advisor/Contact Lens Molder [phone] for QUEEN SNIDER CBC W/PLT COUNT & AUTO [id number] 06:17:00 Test Item Value Reference Range Comments WHITE BLOOD CELL COUNT 7.7 K/ L 3.5-10.5 (BEAKER) (test unpp=545) RED BLOOD CELL COUNT (BEAKER) 1.87 M/ L 4.63-6.08 (test czhs=196) HEMOGLOBIN (BEAKER) (test 6.9 GM/DL 13.7-17.5 vias=131) HEMATOCRIT (BEAKER) (test 21.5 % 40.1-51.0 dpdu=505) MEAN CORPUSCULAR VOLUME 115.0 fL 79.0-92.2 DISCORDANT MCV RESULT (BEAKER) (test donj=755) COMPARED TO PREVIOUS RESULT; CLINICAL CORRELATION REQUIRED. MEAN CORPUSCULAR HEMOGLOBIN 36.9 pg 25.7-32.2 (BEAKER) (test hvkh=968) MEAN CORPUSCULAR HEMOGLOBIN 32.1 GM/DL 32.3-36.5 CONC (BEAKER) (test cqco=189) RED CELL DISTRIBUTION WIDTH 22.9 % 11.6-14.4 (BEAKER) (test xgof=351) PLATELET COUNT (BEAKER) (test 45 K/CU MM 150-450 ieas=301) MEAN PLATELET VOLUME (BEAKER) 13.4 fL 9.4-12.4 (test wusc=744) NUCLEATED RED BLOOD CELLS 0 /100 WBC 0-0 (BEAKER) (test mrfv=218) NEUTROPHILS RELATIVE PERCENT 91 % (BEAKER) (test jbmj=712) LYMPHOCYTES RELATIVE PERCENT 3 % (BEAKER) (test brbk=317) MONOCYTES RELATIVE PERCENT 3 % (BEAKER) (test unwq=970) EOSINOPHILS RELATIVE PERCENT 1 % (BEAKER) (test ofga=099) BASOPHILS RELATIVE PERCENT 0 % (BEAKER) (test dgkc=027) NEUTROPHILS ABSOLUTE COUNT 7.06 K/ L 1.78-5.38 (BEAKER) (test ruqn=464) LYMPHOCYTES ABSOLUTE COUNT 0.26 K/ L 1.32-3.57 (BEAKER) (test tmlc=013) MONOCYTES ABSOLUTE COUNT 0.23 K/ L 0.30-0.82 (BEAKER) (test wtzq=666) EOSINOPHILS ABSOLUTE COUNT 0.05 K/ L 0.04-0.54 (BEAKER) (test zhfk=438) BASOPHILS ABSOLUTE COUNT 0.01 K/ L 0.01-0.08 (BEAKER) (test fdkj=438) IMMATURE GRANULOCYTES-RELATIVE 2 % 0-1 PERCENT (BEAKER) (test czlc=1579) U/S, ABDOMINAL, [id number] 04:56:00Abdomen limited area? Add comment if clarification is needed.->LiverReason for exam:->to r/o TIPsitis , TIPs thrombosisReason for exam:->pt has MRSA sepsis, ? sourceFINAL REPORT U/S, ABDOMINAL, LIMITED INDICATION: to r/o TIPsitis , TIPs thrombosispt has MRSA sepsis, ? source COMPARISON: None TECHNIQUE: Real-time robbins-scale transabdominal andcolor Doppler ultrasound. FINDINGS:Liver: Size : 13.1cm. Echogenicity: Heterogeneous. Masses/lesions: None. Surface Nodularity: Present. Intrahepatic bile ducts: Normal.. Common bile duct: 0.4cm. MPV: 1.4cm. Gallbladder: Stones: None. Sludge: None. Wall thickness: 0.4 cm. The gallbladder is contracted. Pericholecystic fluid: None. Sonographic Chowdhury's sign: No sonographic Chowdhury's sign. Pancreas: Head and uncinate process: Unremarkable. Body and tail: Not well-seen. Spleen: Size: 13.3cm. Echogenicity: Unremarkable. Right kidney: Size: 11.5 x 6.5 x 5.7 cm. Parenchyma: Normal echogenicity. No cysts. No stones. Hydronephrosis: None. Ascites: Small volume intra-abdominal ascites..Additional findings: Bilateral pleural effusions.Regional Vasculature: The visible abdominal aorta, IVC and visualized hepatic veins are patent. The aorta measures 2.2 cm proximally, 2.0 cm in the midportion 1.7 cm distally. Color and Spectral imaging: The TIPS is patent with antegrade flow. Peak systolic velocities measure: Current velocities: Proximal TIPS 122 cm/sec Mid TIPS 206 cm/sec Distal TIPS 159 cm/ secPrior velocities: Proximal TIPS 112 cm/sec Mid TIPS 237 cm/sec Distal TIPS 159 cm/sec MPV: Diameter: 1.4 Flow: Hepatopedal. Velocity: 63.8 cm/sec Filling defects: NoneLeft and right portal veins: Patent. Flow: Hepatofugal Filling defects: None. Hepatic arteries: Patent RIproper hepatic: 0.7 RI right hepatic: 0.7 RI left hepatic: 0.7 IVC, Hepatic venous confluence, middle HV and left HV are patent. The right hepatic vein is not identified. IMPRESSION: Morphologic changes of cirrhosis with sequela of portal hypertension including small volume intra- abdominalascites and splenomegaly.. Patent TIPS. The right hepatic vein is not identified . Bilateral pleuraleffusions. Signed: Ziana Mckeonepdawna Verified Date/Time: 04/29/2019 04:56:25 POCT-GLUCOSE [id number] 21:01:00 Test Item Value Reference Range Comments POC-GLUCOSE METER (BEAKER) 134 mg/dL 70-110 : Notified RN/MD: TESTED AT (test svrf=7572) [address], [address]: Cosmetic Sales Advisor/Contact Lens Molder [id number] for SUZY RIOS [id number] 18:56:00 Test Item Value Reference Range Comments POTASSIUM (BEAKER) (test jqfc=735) 3.0 meq/L 3.5-5.1 POCT-GLUCOSE [id number] 16:58:00 Test Item Value Reference Range Comments POC-GLUCOSE METER (BEAKER) 155 mg/dL 70-110 : TESTED AT [address] (test dded=4545) [facility], [address]: Cosmetic Sales Advisor/Contact Lens Molder ZC=[id number] for ORPHMAE, CATHRYN POCT-GLUCOSE [id number] 14:01:00 Test Item Value Reference Range Comments POC-GLUCOSE METER (BEAKER) 135 mg/dL 70-110 : TESTED AT [address] (test asej=2450) [facility], [address]: Cosmetic Sales Advisor/Contact Lens Molder [phone] for ORPHEY, CATHRYN POCT-GLUCOSE [id number] 07:16:00 Test Item Value Reference Range Comments POC-GLUCOSE METER (BEAKER) 128 mg/dL 70-110 : TESTED AT [address] (test clxu=8922) [facility], [address]: Cosmetic Sales Advisor/Contact Lens Molder [phone] for QUEEN SNIDER CBC W/PLT COUNT & AUTO [id number] 06:42:00 Test Item Value Reference Range Comments WHITE BLOOD CELL COUNT (BEAKER) (test ybee=565) 6.2 K/ L 3.5-10.5 RED BLOOD CELL COUNT (BEAKER) (test jxrz=941) 2.14 M/ L 4.63-6.08 HEMOGLOBIN (BEAKER) (test xarf=530) 7.6 GM/DL 13.7-17.5 HEMATOCRIT (BEAKER) (test fsop=975) 23.7 % 40.1-51.0 MEAN CORPUSCULAR VOLUME (BEAKER) (test snfw=364) 110.7 fL 79.0-92.2 MEAN CORPUSCULAR HEMOGLOBIN (BEAKER) (test 35.5 pg 25.7-32.2 bqtt=286) MEAN CORPUSCULAR HEMOGLOBIN CONC (BEAKER) (test 32.1 GM/DL 32.3-36.5 xktx=755) RED CELL DISTRIBUTION WIDTH (BEAKER) (test 21.5 % 11.6-14.4 vwyo=510) PLATELET COUNT (BEAKER) (test efwa=957) 42 K/CU MM 150-450 MEAN PLATELET VOLUME (BEAKER) (test zlzs=809) 10.8 fL 9.4-12.4 NUCLEATED RED BLOOD CELLS (BEAKER) (test 0 /100 WBC 0-0 skxe=407) NEUTROPHILS RELATIVE PERCENT (BEAKER) (test 80 % zbfe=436) LYMPHOCYTES RELATIVE PERCENT (BEAKER) (test 7 % rjnj=051) MONOCYTES RELATIVE PERCENT (BEAKER) (test 10 % rqgt=809) EOSINOPHILS RELATIVE PERCENT (BEAKER) (test 1 % junm=007) BASOPHILS RELATIVE PERCENT (BEAKER) (test 0 % qkev=921) NEUTROPHILS ABSOLUTE COUNT (BEAKER) (test 5.00 K/ L 1.78-5.38 audn=297) LYMPHOCYTES ABSOLUTE COUNT (BEAKER) (test 0.44 K/ L 1.32-3.57 sukq=949) MONOCYTES ABSOLUTE COUNT (BEAKER) (test clhw=949) 0.64 K/ L 0.30-0.82 EOSINOPHILS ABSOLUTE COUNT (BEAKER) (test 0.08 K/ L 0.04-0.54 bqzi=852) BASOPHILS ABSOLUTE COUNT (BEAKER) (test ijqt=097) 0.00 K/ L 0.01-0.08 IMMATURE GRANULOCYTES-RELATIVE PERCENT (BEAKER) 1 % 0-1 (test dosa=3532) HEPATIC FUNCTION [id number] 06:36:00 Test Item Value Reference Range Comments TOTAL PROTEIN (BEAKER) (test ilkm=756) 5.6 gm/dL 6.0-8.3 ALBUMIN (BEAKER) (test racy=3001) 1.6 g/dL 3.5-5.0 BILIRUBIN TOTAL (BEAKER) (test snvt=395) 12.1 mg/dL 0.2-1.2 BILIRUBIN DIRECT (BEAKER) (test acec=439) 5.4 mg/dL 0.1-0.5 ALKALINE PHOSPHATASE (BEAKER) (test hpoc=944) 119 U/L 40-150 AST (SGOT) (BEAKER) (test mxmi=983) 43 U/L 5-34 ALT (SGPT) (BEAKER) (test ynrr=217) 39 U/L 6-55 Specimen markedly [id number] 06:28:00 Test Item Value Reference Range Comments MAGNESIUM (BEAKER) (test gwfn=167) 2.0 mg/dL 1.6-2.6 BASIC METABOLIC [id number] 06:28:00 Test Item Value Reference Range Comments SODIUM (BEAKER) (test 139 meq/L 136-145 jzbc=791) POTASSIUM (BEAKER) (test 2.7 meq/L 3.5-5.1 ztys=445) CHLORIDE (BEAKER) (test 114 meq/L 98-107 iwbc=345) CO2 (BEAKER) (test 22 meq/L 22-29 krnp=890) BLOOD UREA NITROGEN 22 mg/dL 7-21 (BEAKER) (test wgmg=779) CREATININE (BEAKER) (test 1.03 mg/dL 0.57-1.25 umzw=147) GLUCOSE RANDOM (BEAKER) 134 mg/dL 70-105 (test rcba=336) CALCIUM (BEAKER) (test 9.8 mg/dL 8.4-10.2 clrh=024) EGFR (BEAKER) (test 76 mL/min/1.73 sq m ESTIMATED GFR IS NOT euhv=2253) ACCURATE CREATININE CLEARANCE IN PREDICTING GLOMERULAR FILTRATION RATE. ESTIMATED GFR IS NOT APPLICABLE FOR DIALYSIS PATIENTS. Specimen markedly ictericPROTHROMBIN [id number] 06:10:00 Test Item Value Reference Range Comments PROTIME (BEAKER) (test mtcn=197) 36.6 seconds 11.9-14.2 INR (BEAKER) (test ijfh=919) 4.0 <=5.9 Effective 10/09/2018: PT Reference Range ChangeNew: 11.9-14.2 Previous: 11.7- 14.7RECOMMENDED COUMADIN/WARFARIN INR THERAPY RANGESSTANDARD DOSE: 2.0-3.0 Includes: PROPHYLAXIS for venous thrombosis, systemic embolization; TREATMENT for venous thrombosis and/or pulmonary embolus.HIGH RISK: Target INR is2.5-3.5 for patients wiht mechanical heart valves.POCT-GLUCOSE [id number] 17:54:00 Test Item Value Reference Range Comments POC-GLUCOSE METER (BEAKER) 147 mg/dL 70-110 : TESTED AT [address] (test dtui=1852) [facility], [address]: Cosmetic Sales Advisor/Contact Lens Molder [phone] for ILEANA BRANCH POCT-GLUCOSE [id number] 12:18:00 Test Item Value Reference Range Comments POC-GLUCOSE METER (BEAKER) 145 mg/dL 70-110 : TESTED AT [address] (test ojqr=6235) [facility], [address]: Cosmetic Sales Advisor/Contact Lens Molder DR=[id number] for ILEANA BRANCH [id number] 10:26:00 Test Item Value Reference Range Comments AMMONIA (BEAKER) (test azhx=676) 124 mol/L 18-72 CBC W/PLT COUNT & AUTO [id number] 10:10:00 Test Item Value Reference Range Comments WHITE BLOOD CELL COUNT (BEAKER) (test ngpv=310) 6.0 K/ L 3.5-10.5 RED BLOOD CELL COUNT (BEAKER) (test nhds=425) 2.33 M/ L 4.63-6.08 HEMOGLOBIN (BEAKER) (test wwke=645) 8.1 GM/DL 13.7-17.5 HEMATOCRIT (BEAKER) (test ihry=922) 25.2 % 40.1-51.0 MEAN CORPUSCULAR VOLUME (BEAKER) (test ibdh=217) 108.2 fL 79.0-92.2 MEAN CORPUSCULAR HEMOGLOBIN (BEAKER) (test 34.8 pg 25.7-32.2 tuuz=572) MEAN CORPUSCULAR HEMOGLOBIN CONC (BEAKER) (test 32.1 GM/DL 32.3-36.5 jgeh=681) RED CELL DISTRIBUTION WIDTH (BEAKER) (test 21.8 % 11.6-14.4 muli=708) PLATELET COUNT (BEAKER) (test xlhc=856) 39 K/CU MM 150-450 MEAN PLATELET VOLUME (BEAKER) (test qyfx=090) 8.6 fL 9.4-12.4 NUCLEATED RED BLOOD CELLS (BEAKER) (test 0 /100 WBC 0-0 kfdf=248) NEUTROPHILS RELATIVE PERCENT (BEAKER) (test 78 % nxqn=152) LYMPHOCYTES RELATIVE PERCENT (BEAKER) (test 7 % iagn=791) MONOCYTES RELATIVE PERCENT (BEAKER) (test 13 % yqek=110) EOSINOPHILS RELATIVE PERCENT (BEAKER) (test 1 % nmyu=093) BASOPHILS RELATIVE PERCENT (BEAKER) (test 0 % zimr=489) NEUTROPHILS ABSOLUTE COUNT (BEAKER) (test 4.63 K/ L 1.78-5.38 qzru=229) LYMPHOCYTES ABSOLUTE COUNT (BEAKER) (test 0.40 K/ L 1.32-3.57 sfhy=442) MONOCYTES ABSOLUTE COUNT (BEAKER) (test hiiq=425) 0.77 K/ L 0.30-0.82 EOSINOPHILS ABSOLUTE COUNT (BEAKER) (test 0.03 K/ L 0.04-0.54 mtxi=660) BASOPHILS ABSOLUTE COUNT (BEAKER) (test hqfr=906) 0.00 K/ L 0.01-0.08 IMMATURE GRANULOCYTES-RELATIVE PERCENT (BEAKER) 2 % 0-1 (test jzhw=4141) PROTHROMBIN [id number] 10:09:00 Test Item Value Reference Range Comments PROTIME (BEAKER) (test vfoh=060) 35.3 seconds 11.9-14.2 INR (BEAKER) (test vhea=792) 3.8 <=5.9 Effective 10/09/2018: PT Reference Range ChangeNew: 11.9-14.2 Previous: 11.7- 14.7RECOMMENDED COUMADIN/WARFARIN INR THERAPY RANGESSTANDARD DOSE: 2.0-3.0 Includes: PROPHYLAXIS for venous thrombosis, systemic embolization; TREATMENT for venous thrombosis and/or pulmonary embolus.HIGH RISK: Target INR is2.5-3.5 for patients wiht mechanical heart valves.POCT-GLUCOSE [id number] 07:59:00 Test Item Value Reference Range Comments POC-GLUCOSE METER (BEAKER) 132 mg/dL 70-110 : TESTED AT [facility] [address] [facility] (test zwei=3953) [facility], [address]: Cosmetic Sales Advisor/Contact Lens Molder [phone] for ILEANA BRANCH BASIC METABOLIC [id number] 07:34:00 Test Item Value Reference Range Comments SODIUM (BEAKER) (test 136 meq/L 136-145 chbb=718) POTASSIUM (BEAKER) (test 2.3 meq/L 3.5-5.1 dddr=853) CHLORIDE (BEAKER) (test 111 meq/L 98-107 crtj=471) CO2 (BEAKER) (test 22 meq/L 22-29 nibv=342) BLOOD UREA NITROGEN 23 mg/dL 7-21 (BEAKER) (test yyqz=155) CREATININE (BEAKER) (test 1.02 mg/dL 0.57-1.25 mtce=576) GLUCOSE RANDOM (BEAKER) 152 mg/dL 70-105 (test btqk=040) CALCIUM (BEAKER) (test 10.0 mg/dL 8.4-10.2 uitr=818) EGFR (BEAKER) (test 77 mL/min/1.73 sq m ESTIMATED GFR IS NOT qedo=5574) ACCURATE CREATININE CLEARANCE IN PREDICTING GLOMERULAR FILTRATION RATE. ESTIMATED GFR IS NOT APPLICABLE FOR DIALYSIS PATIENTS. Specimen markedly ictericHEPATIC FUNCTION [id number] 07:31:00 Test Item Value Reference Range Comments TOTAL PROTEIN (BEAKER) (test ybkp=611) 5.9 gm/dL 6.0-8.3 ALBUMIN (BEAKER) (test ceup=5913) 1.6 g/dL 3.5-5.0 BILIRUBIN TOTAL (BEAKER) (test aqgk=600) 11.2 mg/dL 0.2-1.2 BILIRUBIN DIRECT (BEAKER) (test mbvw=599) 5.0 mg/dL 0.1-0.5 ALKALINE PHOSPHATASE (BEAKER) (test clko=551) 122 U/L 40-150 AST (SGOT) (BEAKER) (test sqhl=341) 48 U/L 5-34 ALT (SGPT) (BEAKER) (test htme=567) 43 U/L 6-55 Specimen markedly [id number] 07:19:00 Test Item Value Reference Range Comments MAGNESIUM (BEAKER) (test dijv=662) 1.9 mg/dL 1.6-2.6 POCT-GLUCOSE [id number] 21:56:00 Test Item Value Reference Range Comments POC-GLUCOSE METER (BEAKER) 160 mg/dL 70-110 : TESTED AT [address] (test xhbz=4808) [facility], [address]: Cosmetic Sales Advisor/Contact Lens Molder [id number] for MARY LOU CHRISTIANSEN POCT-GLUCOSE [id number] 17:24:00 Test Item Value Reference Range Comments POC-GLUCOSE METER (BEAKER) 157 mg/dL 70-110 : TESTED AT [address] (test ujpm=1734) [facility], [address]: Cosmetic Sales Advisor/Contact Lens Molder [phone] for ILEANA BRANCH POCT-GLUCOSE [id number] 17:24:00 Test Item Value Reference Range Comments POC-GLUCOSE METER (BEAKER) 199 mg/dL 70-110 : TESTED AT [address] (test bebt=6147) [facility], [address]: Cosmetic Sales Advisor/Contact Lens Molder [id number] for ILEANA BRANCH BLOOD [id number] 10:55:00 Test Item Value Reference Range Comments CULTURE (BEAKER) From Aerobic And Anaerobic (test aumm=9854) Bottles Same organism has been isolated from cultures(s) of the same body site within 3 days. Repeat identification and susceptibility testing performed only after consultation with the clinical microbiology laboratory.Refer to previous culture ofMethicillin resistant Staphylococcus aureus GRAM STAIN RESULT From aerobic and (BEAKER) (test anaerobic bottles: mjdk=3542) gram positive cocci in clusters POCT-GLUCOSE [id number] 08:48:00 Test Item Value Reference Range Comments POC-GLUCOSE METER (BEAKER) 129 mg/dL 70-110 : TESTED AT [address] (test ichq=7087) [facility], [address]: Cosmetic Sales Advisor/Contact Lens Molder [id number] for ALICIA DELATORRE CREATINE KINASE (CK)2019-04-26 08:35:00 Test Item Value Reference Range Comments CREATINE KINASE TOTAL (BEAKER) (test dddj=574) 39 U/L 29-200 HEPATIC FUNCTION [id number] 04:59:00 Test Item Value Reference Range Comments TOTAL PROTEIN (BEAKER) (test 6.3 gm/dL 6.0-8.3 Specimen slightly hemolyzed kcag=731) ALBUMIN (BEAKER) (test 1.6 g/dL 3.5-5.0 Specimen slightly hemolyzed jusi=6930) BILIRUBIN TOTAL (BEAKER) (test 9.8 mg/dL 0.2-1.2 Specimen slightly hemolyzed wbjf=999) BILIRUBIN DIRECT (BEAKER) (test 4.2 mg/dL 0.1-0.5 Specimen slightly hemolyzed zcyq=510) ALKALINE PHOSPHATASE (BEAKER) 134 U/L 40-150 (test hvnf=393) AST (SGOT) (BEAKER) (test 45 U/L 5-34 Specimen slightly hemolyzed wwep=929) ALT (SGPT) (BEAKER) (test 43 U/L 6-55 Specimen slightly hemolyzed wkae=154) Specimen markedly [id number] 04:59:00 Test Item Value Reference Range Comments AMMONIA (BEAKER) (test 108 mol/L 18-72 Specimen slightly hemolyzed jabe=856) [id number] 04:54:00 Test Item Value Reference Range Comments MAGNESIUM (BEAKER) (test 2.0 mg/dL 1.6-2.6 Specimen slightly hemolyzed armr=184) BASIC METABOLIC [id number] 04:54:00 Test Item Value Reference Range Comments SODIUM (BEAKER) (test 132 meq/L 136-145 rwxn=719) POTASSIUM (BEAKER) (test 2.8 meq/L 3.5-5.1 Specimen slightly ypgh=078) hemolyzed CHLORIDE (BEAKER) (test 109 meq/L 98-107 lmih=272) CO2 (BEAKER) (test 20 meq/L 22-29 hdwv=823) BLOOD UREA NITROGEN 22 mg/dL 7-21 (BEAKER) (test jgva=270) CREATININE (BEAKER) (test 0.94 mg/dL 0.57-1.25 Specimen slightly effw=644) hemolyzed GLUCOSE RANDOM (BEAKER) 116 mg/dL 70-105 (test ikpa=991) CALCIUM (BEAKER) (test 10.0 mg/dL 8.4-10.2 lurg=320) EGFR (BEAKER) (test 84 mL/min/1.73 sq m ESTIMATED GFR IS NOT rfvr=0466) ACCURATE CREATININE CLEARANCE IN PREDICTING GLOMERULAR FILTRATION RATE. ESTIMATED GFR IS NOT APPLICABLE FOR DIALYSIS PATIENTS. Specimen markedly ictericPROTHROMBIN [id number] 04:32:00 Test Item Value Reference Range Comments PROTIME (BEAKER) (test zcvf=646) 34.0 seconds 11.9-14.2 INR (BEAKER) (test jhji=052) 3.6 <=5.9 Effective 10/09/2018: PT Reference Range ChangeNew: 11.9-14.2 Previous: 11.7- 14.7RECOMMENDED COUMADIN/WARFARIN INR THERAPY RANGESSTANDARD DOSE: 2.0-3.0 Includes: PROPHYLAXIS for venous thrombosis, systemic embolization; TREATMENT for venous thrombosis and/or pulmonary embolus.HIGH RISK: Target INR is2.5-3.5 for patients wiht mechanical heart valves.POCT-GLUCOSE [id number] 21:43:00 Test Item Value Reference Range Comments POC-GLUCOSE METER (BEAKER) 314 mg/dL 70-110 : TESTED AT [address] (test nuos=1207) [facility], [address]: Cosmetic Sales Advisor/Contact Lens Molder UD=[id number] for COURTNEY QUINTERO POCT-GLUCOSE [id number] 17:58:00 Test Item Value Reference Range Comments POC-GLUCOSE METER (BEAKER) 153 mg/dL 70-110 : TESTED AT [address] (test cvnx=8555) [facility], [address]: Cosmetic Sales Advisor/Contact Lens Molder [id number] for ALICIA DELATORRE POCT-GLUCOSE [id number] 12:21:00 Test Item Value Reference Range Comments POC-GLUCOSE METER (BEAKER) 152 mg/dL 70-110 : TESTED AT [address] (test iuxe=2266) [facility], [address]: Cosmetic Sales Advisor/Contact Lens Molder [phone] for DELATORREJACKELYNJADA BLOOD [id number] 11:32:00 Test Item Value Reference Range Comments CULTURE (BEAKER) From Aerobic And Anaerobic (test tnkx=5517) Bottles Same organism has been isolated from cultures(s) of the same body site and collection date. Repeat identification and susceptibility testing performed only after consultation with the clinical microbiology laboratory.Refer to previous culture ofMethicillin resistant Staphylococcus aureus GRAM STAIN RESULT From aerobic and (BEAKER) (test anaerobic bottles: jrvi=1927) gram positive cocci in clusters BLOOD [id number] 11:27:00 Test Item Value Reference Range Comments CULTURE (BEAKER) (test STAPHYLOCOCCUS AUREUS From Aerobic And hnfn=0335) Anaerobic Bottles Staphylococcus aureusMethicillin Resistant Staphylococcus aureus isolated. Clindamycin (test code=10) Erythromycin (test code=4) Linezolid (test code=40) Nitrofurantoin (test code=23) Oxacillin (test code=14) Rifampin (test code=43) Tetracycline (test code=2) Trimethoprim + Sulfamethoxazole (test code=47) Vancomycin (test code=13) GRAM STAIN RESULT From aerobic and (BEAKER) (test anaerobic bottles: qssw=8989) gram positive cocci in clusters VANCOMYCIN LEVEL, [id number] 10:39:00 Test Item Value Reference Range Comments VANCOMYCIN TROUGH (BEAKER) (test nzhj=384) 26.5 ug/mL 10.0-20.0 Please draw 30 min before giving vanc. Hold vanc dose if level is greater than 20ug/mLCBC W/PLT COUNT & AUTO [id number] 09:44:00 Test Item Value Reference Range Comments WHITE BLOOD CELL COUNT (BEAKER) (test orao=435) 5.6 K/ L 3.5-10.5 RED BLOOD CELL COUNT (BEAKER) (test olvg=020) 2.29 M/ L 4.63-6.08 HEMOGLOBIN (BEAKER) (test spzj=765) 7.9 GM/DL 13.7-17.5 HEMATOCRIT (BEAKER) (test rhmv=889) 24.4 % 40.1-51.0 MEAN CORPUSCULAR VOLUME (BEAKER) (test yjkw=100) 106.6 fL 79.0-92.2 MEAN CORPUSCULAR HEMOGLOBIN (BEAKER) (test 34.5 pg 25.7-32.2 fmch=472) MEAN CORPUSCULAR HEMOGLOBIN CONC (BEAKER) (test 32.4 GM/DL 32.3-36.5 soum=310) RED CELL DISTRIBUTION WIDTH (BEAKER) (test 22.9 % 11.6-14.4 dmga=507) PLATELET COUNT (BEAKER) (test cqmb=918) 59 K/CU MM 150-450 MEAN PLATELET VOLUME (BEAKER) (test xdmd=666) 11.1 fL 9.4-12.4 NUCLEATED RED BLOOD CELLS (BEAKER) (test 0 /100 WBC 0-0 hocs=896) NEUTROPHILS RELATIVE PERCENT (BEAKER) (test 80 % bzka=435) LYMPHOCYTES RELATIVE PERCENT (BEAKER) (test 7 % stac=088) MONOCYTES RELATIVE PERCENT (BEAKER) (test 9 % bfwk=196) EOSINOPHILS RELATIVE PERCENT (BEAKER) (test 0 % ozag=544) BASOPHILS RELATIVE PERCENT (BEAKER) (test 0 % bqtm=776) NEUTROPHILS ABSOLUTE COUNT (BEAKER) (test 4.45 K/ L 1.78-5.38 uibu=463) LYMPHOCYTES ABSOLUTE COUNT (BEAKER) (test 0.37 K/ L 1.32-3.57 xvda=341) MONOCYTES ABSOLUTE COUNT (BEAKER) (test eatc=725) 0.51 K/ L 0.30-0.82 EOSINOPHILS ABSOLUTE COUNT (BEAKER) (test 0.00 K/ L 0.04-0.54 fboj=593) BASOPHILS ABSOLUTE COUNT (BEAKER) (test juld=601) 0.00 K/ L 0.01-0.08 IMMATURE GRANULOCYTES-RELATIVE PERCENT (BEAKER) 5 % 0-1 (test gycs=4096) POCT-GLUCOSE [id number] 08:12:00 Test Item Value Reference Range Comments POC-GLUCOSE METER (BEAKER) 126 mg/dL 70-110 : TESTED AT [facility] [address] [facility] (test flsh=1050) [facility], [address]: Cosmetic Sales Advisor/Contact Lens Molder [id number] for Trupti Lauren HEPATIC FUNCTION [id number] 07:18:00 Test Item Value Reference Range Comments TOTAL PROTEIN (BEAKER) (test 6.2 gm/dL 6.0-8.3 Specimen slightly hemolyzed ikug=689) ALBUMIN (BEAKER) (test 1.5 g/dL 3.5-5.0 Specimen slightly hemolyzed bypf=2469) BILIRUBIN TOTAL (BEAKER) (test 7.6 mg/dL 0.2-1.2 Specimen slightly hemolyzed tjvk=754) BILIRUBIN DIRECT (BEAKER) (test 3.4 mg/dL 0.1-0.5 Specimen slightly hemolyzed mrhm=761) ALKALINE PHOSPHATASE (BEAKER) 146 U/L 40-150 (test velp=811) AST (SGOT) (BEAKER) (test 52 U/L 5-34 Specimen slightly hemolyzed mbar=117) ALT (SGPT) (BEAKER) (test 43 U/L 6-55 Specimen slightly hemolyzed jptj=628) Specimen moderately [id number] 06:56:00 Test Item Value Reference Range Comments MAGNESIUM (BEAKER) (test 1.9 mg/dL 1.6-2.6 Specimen slightly hemolyzed iris=514) BASIC METABOLIC [id number] 06:56:00 Test Item Value Reference Range Comments SODIUM (BEAKER) (test 132 meq/L 136-145 itla=581) POTASSIUM (BEAKER) (test 3.7 meq/L 3.5-5.1 Specimen slightly cwqe=794) hemolyzed CHLORIDE (BEAKER) (test 110 meq/L 98-107 zlrt=800) CO2 (BEAKER) (test 20 meq/L 22-29 jsra=715) BLOOD UREA NITROGEN 18 mg/dL 7-21 (BEAKER) (test jrhf=551) CREATININE (BEAKER) (test 0.85 mg/dL 0.57-1.25 Specimen slightly fxzm=366) hemolyzed GLUCOSE RANDOM (BEAKER) 157 mg/dL 70-105 (test paql=527) CALCIUM (BEAKER) (test 9.7 mg/dL 8.4-10.2 hnmk=056) EGFR (BEAKER) (test 95 mL/min/1.73 sq m ESTIMATED GFR IS NOT kteq=9589) ACCURATE CREATININE CLEARANCE IN PREDICTING GLOMERULAR FILTRATION RATE. ESTIMATED GFR IS NOT APPLICABLE FOR DIALYSIS PATIENTS. Specimen moderately ictericPOCT-GLUCOSE [id number] 06:25:00 Test Item Value Reference Range Comments POC-GLUCOSE METER (BEAKER) 144 mg/dL 70-110 : TESTED AT [facility] [address] [place] [address] (test gdul=[id number]) [facility], [id number]: Cosmetic Sales Advisor/Contact Lens Molder [id number] for ST[facility] GROSSM[facility] POCT-GLUCOSE [id number] 21:07:00 Test Item Value Reference Range Comments POC-GLUCOSE METER (BEAKER) 175 mg/dL 70-110 : TESTED AT [facility] [address] [facility] (test dxry=2028) [facility], [id number]: Cosmetic Sales Advisor/Contact Lens Molder [id number] for SUZY RIOS POCT-GLUCOSE [id number] 17:05:00 Test Item Value Reference Range Comments POC-GLUCOSE METER (BEAKER) 126 mg/dL 70-110 : TESTED AT [facility] [address] [facility] (test sydc=9700) [facility], [id number]: Cosmetic Sales Advisor/Contact Lens Molder [id number] for [facility] CT, CHEST, WITH [id number] 16:14:00FINAL REPORT CT of the Chest, abdomen and pelvis dated 04/24/2019 Clinical information: H/o Esophageal tear. Persistent Bacteremia. To r/o Infection source Comment: Axial images of the chest, abdomen, and pelvis were obtained from thoracic inlet to the pubic symphysis with GI and intravenous contrast. This exam was performed according to our departmental dose-optimizationprogram, which includes automated exposure control, adjustment of the mA and/or kV according to patient size and/or use of interactive reconstruction technique. Heart is normal in size. Great vessels are unremarkable. No adenopathy in the mediastinum or perihilar region. Trachea and mainstem bronchi are patent. Moderate left pleural effusions present with left lower lobe and lingula subsegmental atelectasis. The rest of the lungs are clear. No nodular, mass lesion, or airspace disease is seen. Liver is cirrhotic in appearance with irregular margins. Spleen is enlarged measuring approximately 14.1x 4.9 x 12.5 cm. The splenic, superior mesenteric, and portal veins are patent. A TIPS stent is present. Gallbladder is contracted. No gallstone or biliary dilatation is noted. Pancreas and adrenals are unremarkable. Both kidneys are normal in size and functioning with bilateral excretion. No hydronephrosis, hydroureter, or urolithiasis is noted. The opacified small bowel is unremarkable. The evaluation of the large posterior limited secondary to insufficient amount of GI contrast. Diverticular disease is seen in the large bowel without diverticulitis. Appendix is not visualized. Small amount of free fluid is seen in the abdomen and pelvis. Atherosclerotic calcification is seen in the abdominal aorta and bilateral iliac arteries. Prostate is normal in size. The urinary bladder is contracted. Impression: 1. Left pleural effusion and left lower lobe subsegmental atelectasis.2. Cirrhosis with splenomegaly.3. Diverticulosis without diverticulitis.4. Small ascites. Signed: Calixto Dalton MDReport Verified Date/Time: 04/24/2019 16:14:17 Reading Location: [facility] B1 C013Y CT Body Reading Room CT, [id number] 16:14:00FINAL REPORT CT of the Chest, abdomen and pelvis dated 04/24/2019 Clinical information: H/o Esophageal tear. Persistent Bacteremia. To r/o Infection source Comment: Axial images of the chest, abdomen, and pelvis were obtained from thoracic inlet to the pubic symphysis with GI and intravenous contrast. This exam was performed according to our departmental dose-optimizationprogram , which includes automated exposure control, adjustment of the mA and/or kV according to patient size and/or use of interactive reconstruction technique. Heart is normal in size. Great vessels are unremarkable. No adenopathy in the mediastinum or perihilar region. Trachea and mainstem bronchi are patent. Moderate left pleural effusions present with left lower lobe and lingula subsegmental atelectasis. The rest of the lungs are clear. No nodular, mass lesion, or airspace disease is seen. Liver is cirrhotic in appearance with irregular margins. Spleen is enlarged measuring approximately 14.1x 4.9 x 12.5 cm. The splenic, superior mesenteric, and portal veins are patent. A TIPS stent is present. Gallbladder is contracted. No gallstone or biliary dilatation is noted. Pancreas and adrenals are unremarkable. Both kidneys are normal in size and functioning with bilateral excretion. No hydronephrosis, hydroureter, or urolithiasis is noted. The opacified small bowel is unremarkable. The evaluation of the large posterior limited secondary to insufficient amount of GI contrast. Diverticular disease is seen in the large bowel without diverticulitis. Appendix is not visualized. Small amount of free fluid is seen in the abdomen and pelvis. Atherosclerotic calcification is seen in the abdominal aorta and bilateral iliac arteries. Prostate is normal in size. The urinary bladder is contracted. Impression: 1. Left pleural effusion and left lower lobe subsegmental atelectasis.2. Cirrhosis with splenomegaly.3. Diverticulosis without diverticulitis.4. Small ascites. Signed: Calixto Dalton MDReport Verified Date/Time: 04/24/2019 16:14:17 Reading Location: [facility] C013Y CT Body Reading Room POCT-GLUCOSE [id number] 12:29:00 Test Item Value Reference Range Comments POC-GLUCOSE METER (BEAKER) 243 mg/dL 70-110 : TESTED AT [address] (test hggg=1733) [facility], [address]: Cosmetic Sales Advisor/Contact Lens Molder [phone] for QUEEN SNIDER POCT-GLUCOSE [id number] 07:46:00 Test Item Value Reference Range Comments POC-GLUCOSE METER (BEAKER) 150 mg/dL 70-110 : TESTED AT [address] (test yuue=4801) [facility], [address]: Cosmetic Sales Advisor/Contact Lens Molder [phone] for QUEEN SNIDER HEPATIC FUNCTION [id number] 06:11:00 Test Item Value Reference Range Comments TOTAL PROTEIN (BEAKER) (test uyfx=942) 6.0 gm/dL 6.0-8.3 ALBUMIN (BEAKER) (test rmzs=8653) 1.5 g/dL 3.5-5.0 BILIRUBIN TOTAL (BEAKER) (test telo=382) 6.8 mg/dL 0.2-1.2 BILIRUBIN DIRECT (BEAKER) (test qrks=307) 3.2 mg/dL 0.1-0.5 ALKALINE PHOSPHATASE (BEAKER) (test kcii=107) 153 U/L 40-150 AST (SGOT) (BEAKER) (test rgdw=725) 39 U/L 5-34 ALT (SGPT) (BEAKER) (test wypv=834) 43 U/L 6-55 Specimen moderately [id number] 06:08:00 Test Item Value Reference Range Comments MAGNESIUM (BEAKER) (test ivaw=096) 1.8 mg/dL 1.6-2.6 BASIC METABOLIC [id number] 06:08:00 Test Item Value Reference Range Comments SODIUM (BEAKER) (test 134 meq/L 136-145 ftva=279) POTASSIUM (BEAKER) (test 3.4 meq/L 3.5-5.1 tmwr=883) CHLORIDE (BEAKER) (test 110 meq/L 98-107 yplv=655) CO2 (BEAKER) (test 23 meq/L 22-29 ypxs=874) BLOOD UREA NITROGEN 17 mg/dL 7-21 (BEAKER) (test sgai=685) CREATININE (BEAKER) (test 0.89 mg/dL 0.57-1.25 lhwp=584) GLUCOSE RANDOM (BEAKER) 153 mg/dL 70-105 (test udkg=373) CALCIUM (BEAKER) (test 9.6 mg/dL 8.4-10.2 hwov=434) EGFR (BEAKER) (test 90 mL/min/1.73 sq m ESTIMATED GFR IS NOT ubeu=3218) ACCURATE CREATININE CLEARANCE IN PREDICTING GLOMERULAR FILTRATION RATE. ESTIMATED GFR IS NOT APPLICABLE FOR DIALYSIS PATIENTS. Specimen moderately ictericPROTHROMBIN TIME/[id number] 05:44:00 Test Item Value Reference Range Comments PROTIME (BEAKER) (test vlrm=082) 31.1 seconds 11.9-14.2 INR (BEAKER) (test pppq=572) 3.2 <=5.9 Effective 10/09/2018: PT Reference Range ChangeNew: 11.9-14.2 Previous: 11.7- 14.7RECOMMENDED COUMADIN/WARFARIN INR THERAPY RANGESSTANDARD DOSE: 2.0-3.0 Includes: PROPHYLAXIS for venous thrombosis, systemic embolization; TREATMENT for venous thrombosis and/or pulmonary embolus.HIGH RISK: Target INR is2.5-3.5 for patients wiht mechanical heart valves.POCT-GLUCOSE [id number] 20:46:00 Test Item Value Reference Range Comments POC-GLUCOSE METER (BEAKER) 218 mg/dL 70-110 : Notified RN/MD: TESTED AT (test yjlh=7320) [facility] [address] [facility], [address]: Cosmetic Sales Advisor/Contact Lens Molder PJ=[phone] for SUZY RIOS POCT-GLUCOSE [id number] 17:21:00 Test Item Value Reference Range Comments POC-GLUCOSE METER (BEAKER) 377 mg/dL 70-110 : TESTED AT [facility] [address] (test uqvb=6740) [facility], [address]: Cosmetic Sales Advisor/Contact Lens Molder [phone] for QUEEN SNIDER BLOOD [id number] 14:55:00 Test Item Value Reference Range Comments CULTURE (BEAKER) (test METHICILLIN RESISTANT From Anaerobic Bottle jftd=2862) STAPHYLOCOCCUS AUREUS Only Methicillin resistant Staphylococcus aureus Clindamycin (test code=10) Erythromycin (test code=4) Linezolid (test code=40) Nitrofurantoin (test code=23) Oxacillin (test code=14) Rifampin (test code=43) Tetracycline (test code=2) Trimethoprim + Sulfamethoxazole (test code=47) Vancomycin (test code=13) GRAM STAIN RESULT From anaerobic bottle (BEAKER) (test jkit=1383) only: gram positive cocci in [facility] BLOOD [id number] 13:19:00 Test Item Value Reference Range Comments CULTURE (BEAKER) From Aerobic And Anaerobic (test yrzl=2073) Bottles Same organism has been isolated from cultures(s) of the same body site within 3 days. Repeat identification and susceptibility testing performed only after consultation with the clinical microbiology laboratory.Refer to previous culture ofMethicillin resistant Staphylococcus aureus GRAM STAIN RESULT From aerobic and (BEAKER) (test anaerobic bottles: kglm=7049) gram positive cocci in [facility] BLOOD [id number] 13:18:00 Test Item Value Reference Range Comments CULTURE (BEAKER) From Aerobic And Anaerobic (test gkrv=5242) Bottles Same organism has been isolated from cultures(s) of the same body site within 3 days. Repeat identification and susceptibility testing performed only after consultation with the clinical microbiology laboratory.Refer to previous culture ofMethicillin resistant Staphylococcus aureus GRAM STAIN RESULT From aerobic and (BEAKER) (test anaerobic bottles: bdyx=2865) gram positive cocci in [facility] BLOOD CULTURE IDENTIFICATION [id number] 12:48:00 Test Item Value Reference Range Comments LISTERIA MONOCYTOGENES (test Not detected Not detected qlcv=[id number]) STAPHYLOCOCCUS (test Detected Not detected cevo=[id number]) STAPHYLOCOCCUS AUREUS (test Detected Not detected Methicillin-resistant S. ephf=[id number]) aureus (MRSA)First-line therapy: VancomycinID CONSULTATION REQUIRED. Staphylococcus aureus DETECTED MecA DETECTEDReference Range: Not Detected STREPTOCOCCUS (test Not detected Not detected ymfx=8483635) STREPTOCOCCUS AGALACTIAE Not detected Not detected (GROUP B) (test lglt=0518393) STREPTOCOCCUS PNEUMONIAE Not detected Not detected (test fhjq=5708284) STREPTOCOCCUS PYOGENES (GROUP Not detected Not detected A) (test dedi=3587479) ACINETOBACTER BAUMANNII (test Not detected Not detected fijc=3664659) HAEMOPHILUS INFLUENZAE (test Not detected Not detected efxa=0092580) NEISSERIA MENINGITIDIS (test Not detected Not detected tdxy=8953193) ENTEROBACTERIACEAE (test Not detected Not detected cnkf=0165115) ENTEROBACTER CLOACOE COMPLEX Not detected Not detected (test viah=2200771) KLEBSIELLA OXYTOCA (test Not detected Not detected msyt=1448455) KLEBSIELLA PNEUMONIAE (test Not detected Not detected xvvq=4149) PROTEUS (test tcwh=6232229) Not detected Not detected SERRATIA MARCESCENS (test Not detected Not detected hfdr=5446277) LENNIE ALBICANS (test Not detected Not detected ojrr=3539493) LENNIE GLABRATA (test Not detected Not detected xpet=1007355) LENNIE KRUSEI (test Not detected Not detected xjsy=5130362) LENNIE PARAPSILOSIS (test Not detected Not detected jqdv=7560515) LENNIE TROPICALIS (test Not detected Not detected oqrz=0017905) ESCHERICHIA COLI (test Not detected Not detected anhd=1179964) METHICILLIN-RESISTANCE GENE Detected Not detected (test zppj=4228347) VANCOMYCIN-RESISTANCE GENE (test xzgc=9945649) CARBAPENEM-RESISTANCE GENE (test mwjx=4420254) ENTEROCOCCUS-BEAKER (test Not detected Not detected zzhf=7384679) PSEUDOMONAS AERUGINOSA-BEAKER Not detected Not detected (test zbmv=9633940) Other bacteria and resistance markers not targeted by this PCR panel cannot be excluded; therefore clinical correlation and follow up of serology, culture results, and other molecular studies is required. The results are not intended to be used as the sole means for clinical diagnosis or patient management decisions. This sample was tested at the [facility] Molecular Diagnostics Laboratory using the [email or web address] Blood Culture ID Panel. It is FDA cleared and has been verified and approved by the [facility] Molecular Diagnostics Laboratory for clinical use. This laboratory is CLIA-certified and College ofAmerican Pathologists (CAP)-accredited to perform high complexity testing.VANCOMYCIN LEVEL, [id number] 09:59:00 Test Item Value Reference Range Comments VANCOMYCIN TROUGH (BEAKER) (test ccys=620) 14.5 ug/mL 10.0-20.0 Please draw 30 min before giving vancPOCT-GLUCOSE [id number] 08:16:00 Test Item Value Reference Range Comments POC-GLUCOSE METER (BEAKER) 148 mg/dL 70-110 : TESTED AT [facility] [address] [facility] (test ukjn=8500) [facility], [address]: Cosmetic Sales Advisor/Contact Lens Molder MR=[id number] for Nicki Alves [id number] 05:58:00 Test Item Value Reference Range Comments MAGNESIUM (BEAKER) (test brcf=353) 1.8 mg/dL 1.6-2.6 BASIC METABOLIC [id number] 05:58:00 Test Item Value Reference Range Comments SODIUM (BEAKER) (test 134 meq/L 136-145 eayq=536) POTASSIUM (BEAKER) (test 3.7 meq/L 3.5-5.1 sfwj=174) CHLORIDE (BEAKER) (test 112 meq/L 98-107 ygvi=640) CO2 (BEAKER) (test 21 meq/L 22-29 vbnj=582) BLOOD UREA NITROGEN 14 mg/dL 7-21 (BEAKER) (test mkpn=313) CREATININE (BEAKER) (test 0.82 mg/dL 0.57-1.25 ezaw=856) GLUCOSE RANDOM (BEAKER) 149 mg/dL 70-105 (test qdne=530) CALCIUM (BEAKER) (test 9.3 mg/dL 8.4-10.2 uosm=226) EGFR (BEAKER) (test 99 mL/min/1.73 sq m ESTIMATED GFR IS NOT dsdp=7527) ACCURATE CREATININE CLEARANCE IN PREDICTING GLOMERULAR FILTRATION RATE. ESTIMATED GFR IS NOT APPLICABLE FOR DIALYSIS PATIENTS. Specimen moderately ictericBLOOD [id number] 23:00:00 Test Item Value Reference Range Comments CULTURE (BEAKER) (test vjnv=3281) No growth in 5 days POCT-GLUCOSE [id number] 21:41:00 Test Item Value Reference Range Comments POC-GLUCOSE METER (BEAKER) 191 mg/dL 70-110 : TESTED AT [facility] [address] [facility] (test lntm=6032) [facility], [address]: Cosmetic Sales Advisor/Contact Lens Molder [phone] for GRAYSON CHRISTIANSENJOHN POCT-GLUCOSE [id number] 17:02:00 Test Item Value Reference Range Comments POC-GLUCOSE METER (BEAKER) 114 mg/dL 70-110 : TESTED AT [facility] [address] [facility] (test ofnb=7463) [facility], [address]: Cosmetic Sales Advisor/Contact Lens Molder [phone] for MANSI TILLEY BLOOD [id number] 13:42:00 Test Item Value Reference Range Comments CULTURE (BEAKER) From Aerobic And Anaerobic (test epmx=9385) Bottles Same organism has been isolated from cultures(s) of the same body site and collection date. Repeat identification and susceptibility testing performed only after consultation with the clinical microbiology laboratory.Refer to previous culture ofMethicillin resistant Staphylococcus aureus GRAM STAIN RESULT From aerobic and (BEAKER) (test anaerobic bottles: bfvf=4087) gram positive cocci in clusters BLOOD [id number] 13:37:00 Test Item Value Reference Range Comments CULTURE (BEAKER) From Aerobic And Anaerobic (test iytz=5356) Bottles Same organism has been isolated from cultures(s) of the same body site within 3 days. Repeat identification and susceptibility testing performed only after consultation with the clinical microbiology laboratory.Refer to previous culture ofMethicillin resistant Staphylococcus aureus GRAM STAIN RESULT From aerobic and (BEAKER) (test anaerobic bottles: fvlh=4432) gram positive cocci in clusters POCT-GLUCOSE [id number] 12:40:00 Test Item Value Reference Range Comments POC-GLUCOSE METER (BEAKER) 174 mg/dL 70-110 : TESTED AT [facility] [address] [facility] (test qdaz=2116) [facility], [address]: Cosmetic Sales Advisor/Contact Lens Molder [phone] for MANSI TILLEY U/S, ABDOMINAL, [id number] 11:55:00Abdomen limited area? Add comment if clarification is needed.->Right upper quadrantReason for exam:->fever, hyperbilirubinemia; please include dopplerFINAL REPORT Abdominal ultrasound dated 04/22/2019 COMPARISON: April 06, 2019 Clinical information: fever, hyperbilirubinemia; please include doppler Comment: Real- time transabdominal ultrasound was performed. Liver is normal in size and measures 16 cm in length. The echogenicity of the liver is course with irregular margins consistent with cirrhosis. No focal lesion is noted in the liver. Spleen is enlarged measuring 14.5 cm in length. Gallbladder is contracted. No gallstone is present. There is minimal wall thickening involving the gallbladder measuring 4 mm in thickness. No pericholecystic fluid collection or sonographic Chowdhury's sign is present. No biliary dilatation is seen. Common bile duct measures 2 mm in diameter. Main portal vein measures 13 mm in diameter. Pancreas is visualized and unremarkable. Right kidney measures 11.8 x 5.8 x 6.4 cm. Echogenicity ofthe right renal parenchyma is normal. Trace ascites present in the abdomen. Abdominal aorta is normal in caliber. The IVC is patent. Real-time Color and Spectral doppler ultrasound of the abdomen was performed. Main portal vein measures 1.3 cm in diameter. There is hepatopedal flow in the main portal vein with velocity 46.3 cm/sec. Right and left portal veins are patent. Proper hepatic artery, righthepatic artery, and left hepatic artery are patent with resistive indices 0.8, 0.8, and 0.8 respectively. IVC, Hepatic venous confluence, right HV, middle HV and left HV are patent. A TIPS stent is present. The velocity of the proximal, mid, and distal TIPS stent are 111 cm/s, 237 cm/s, and 159 cm/s respectively, previously 111 cm/s, 150 cm/s, and 150 cm/s respectively. Impression: 1. Cirrhosis of the spinal megaly.2. Trace ascites.3. Patent hepatic artery, portal vein, and TIPS stent. Signed: Calixto [place] Verified Date/Time: 04/22/2019 11:55:19 Reading Location: [address] Radiology Reading Room U/S, DUPLEX, [id number] 11:55:00fever, hyperbilirubinemia; please include dopplerReason for exam:->fever, hyperbilirubinemia; please include dopplerFINAL REPORT Abdominal ultrasound dated 04/22/2019 COMPARISON: April 06, 2019 Clinical information: fever, hyperbilirubinemia; please include doppler Comment: Real- time transabdominal ultrasound was performed. Liver is normal in size and measures 16 cm in length. The echogenicity of the liver is course with irregular margins consistent with cirrhosis. No focal lesion is noted in the liver. Spleen is enlarged measuring 14.5 cm in length. Gallbladder is contracted. No gallstone is present. There is minimal wall thickening involving the gallbladder measuring 4 mm in thickness. No pericholecystic fluid collection or sonographic Chowdhury's sign is present. No biliary dilatation is seen. Common bile duct measures 2 mm in diameter. Main portal vein measures 13 mm in diameter. Pancreas is visualized and unremarkable. Right kidney measures 11.8 x 5.8 x 6.4 cm. Echogenicity ofthe right renal parenchyma is normal. Trace ascites present in the abdomen. Abdominal aorta is normal in caliber. The IVC is patent. Real-time Color and Spectral doppler ultrasound of the abdomen was performed. Main portal vein measures 1.3 cm in diameter. There is hepatopedal flow in the main portal vein with velocity 46.3 cm/sec. Right and left portal veins are patent. Proper hepatic artery, righthepatic artery, and left hepatic artery are patent with resistive indices 0.8, 0.8, and 0.8 respectively. IVC, Hepatic venous confluence, right HV, middle HV and left HV are patent. A TIPS stent is present. The velocity of the proximal, mid, and distal TIPS stent are 111 cm/s, 237 cm/s, and 159 cm/s respectively, previously 111 cm/s, 150 cm/s, and 150 cm/s respectively. Impression: 1. Cirrhosis of the spinal megaly.2. Trace ascites.3. Patent hepatic artery, portal vein, and TIPS stent. Signed: Calixto Dalton MDReport Verified Date/Time: 04/22/2019 11:55:19 Reading Location: [address] Radiology Reading Room POCT-GLUCOSE [id number] 08:38:00 Test Item Value Reference Range Comments POC-GLUCOSE METER (BEAKER) 157 mg/dL 70-110 : TESTED AT [facility] [address] [facility] (test wqil=8086) [facility], [address]: Cosmetic Sales Advisor/Contact Lens Molder [id number] for MANSI TILLEY HEPATIC FUNCTION [id number] 04:15:00 Test Item Value Reference Range Comments TOTAL PROTEIN (BEAKER) (test edhw=364) 5.8 gm/dL 6.0-8.3 ALBUMIN (BEAKER) (test jjkx=9193) 1.5 g/dL 3.5-5.0 BILIRUBIN TOTAL (BEAKER) (test ygyb=234) 4.8 mg/dL 0.2-1.2 BILIRUBIN DIRECT (BEAKER) (test ayno=769) 2.7 mg/dL 0.1-0.5 ALKALINE PHOSPHATASE (BEAKER) (test tfdm=363) 155 U/L 40-150 AST (SGOT) (BEAKER) (test cdrp=274) 44 U/L 5-34 ALT (SGPT) (BEAKER) (test tief=045) 43 U/L 6-55 Specimen moderately ictericCBC W/PLT COUNT & AUTO [id number] 04: 15:00 Test Item Value Reference Range Comments WHITE BLOOD CELL COUNT 6.6 K/ L 3.5-10.5 (BEAKER) (test wkqc=048) RED BLOOD CELL COUNT (BEAKER) 2.36 M/ L 4.63-6.08 (test dnvw=416) HEMOGLOBIN (BEAKER) (test 8.0 GM/DL 13.7-17.5 aoot=299) HEMATOCRIT (BEAKER) (test 24.9 % 40.1-51.0 oijx=108) MEAN CORPUSCULAR VOLUME 105.5 fL 79.0-92.2 (BEAKER) (test njlc=100) MEAN CORPUSCULAR HEMOGLOBIN 33.9 pg 25.7-32.2 (BEAKER) (test eupe=459) MEAN CORPUSCULAR HEMOGLOBIN 32.1 GM/DL 32.3-36.5 CONC (BEAKER) (test xexu=709) RED CELL DISTRIBUTION WIDTH Unable to report due to (BEAKER) (test rokf=683) abnormal RBC population distribution. PLATELET COUNT (BEAKER) (test 43 K/CU MM 150-450 rarh=658) MEAN PLATELET VOLUME (BEAKER) 11.7 fL 9.4-12.4 (test tvtq=026) NUCLEATED RED BLOOD CELLS 0 /100 WBC 0-0 (BEAKER) (test gjwg=952) NEUTROPHILS RELATIVE PERCENT 86 % (BEAKER) (test eycp=604) LYMPHOCYTES RELATIVE PERCENT 7 % (BEAKER) (test yrdj=467) MONOCYTES RELATIVE PERCENT 6 % (BEAKER) (test mqbd=852) EOSINOPHILS RELATIVE PERCENT 0 % (BEAKER) (test zxml=950) BASOPHILS RELATIVE PERCENT 0 % (BEAKER) (test ctoz=555) NEUTROPHILS ABSOLUTE COUNT 5.65 K/ L 1.78-5.38 (BEAKER) (test uitb=763) LYMPHOCYTES ABSOLUTE COUNT 0.43 K/ L 1.32-3.57 (BEAKER) (test hbmw=453) MONOCYTES ABSOLUTE COUNT 0.41 K/ L 0.30-0.82 (BEAKER) (test gafv=307) EOSINOPHILS ABSOLUTE COUNT 0.00 K/ L 0.04-0.54 (BEAKER) (test sbvb=078) BASOPHILS ABSOLUTE COUNT 0.00 K/ L 0.01-0.08 (BEAKER) (test poxj=580) IMMATURE GRANULOCYTES-RELATIVE 1 % 0-1 PERCENT (BEAKER) (test mhli=2045) [id number] 04:08:00 Test Item Value Reference Range Comments MAGNESIUM (BEAKER) (test lfwt=970) 1.5 mg/dL 1.6-2.6 BASIC METABOLIC [id number] 04:08:00 Test Item Value Reference Range Comments SODIUM (BEAKER) (test 132 meq/L 136-145 pnnl=872) POTASSIUM (BEAKER) (test 3.9 meq/L 3.5-5.1 qpod=245) CHLORIDE (BEAKER) (test 109 meq/L 98-107 ruhf=106) CO2 (BEAKER) (test 23 meq/L 22-29 khel=814) BLOOD UREA NITROGEN 12 mg/dL 7-21 (BEAKER) (test cpxr=118) CREATININE (BEAKER) (test 0.77 mg/dL 0.57-1.25 sysi=602) GLUCOSE RANDOM (BEAKER) 147 mg/dL 70-105 (test ykwr=403) CALCIUM (BEAKER) (test 9.2 mg/dL 8.4-10.2 diji=254) EGFR (BEAKER) (test 106 mL/min/1.73 sq m ESTIMATED GFR IS NOT qumz=9515) ACCURATE CREATININE CLEARANCE IN PREDICTING GLOMERULAR FILTRATION RATE. ESTIMATED GFR IS NOT APPLICABLE FOR DIALYSIS PATIENTS. Specimen moderately ictericPT/[id number] 04:04:00 Test Item Value Reference Range Comments PROTIME (BEAKER) (test dklx=156) 28.8 seconds 11.9-14.2 INR (BEAKER) (test xtyl=025) 2.9 <=5.9 PARTIAL THROMBOPLASTIN TIME (BEAKER) (test 56.5 seconds 22.5-36.0 nxta=386) Effective 10/09/2018: PT Reference Range ChangeNew: 11.9-14.2 Previous: 11.7- 14.7RECOMMENDED COUMADIN/WARFARIN INR THERAPY RANGESSTANDARD DOSE: 2.0-3.0 Includes: PROPHYLAXIS for venous thrombosis, systemic embolization; TREATMENT for venous thrombosis and/or pulmonary embolus.HIGH RISK: Target INR is2.5-3.5 for patients wiht mechanical heart valves.POCT-GLUCOSE [id number] 21:43:00 Test Item Value Reference Range Comments POC-GLUCOSE METER (BEAKER) 255 mg/dL 70-110 : TESTED AT [address] (test oqgd=2931) [facility], [address]: Cosmetic Sales Advisor/Contact Lens Molder RZ=[id number] for MARY LOU CHRISTIANSEN VANCOMYCIN LEVEL, [id number] 21:05:00 Test Item Value Reference Range Comments VANCOMYCIN TROUGH (BEAKER) (test gxqb=661) 22.4 ug/mL 10.0-20.0 30 minutes prior to last dose of vancomycin on 04/21POCT-GLUCOSE [id number] 17:58:00 Test Item Value Reference Range Comments POC-GLUCOSE METER (BEAKER) 140 mg/dL 70-110 : TESTED AT [address] (test askr=2220) [facility], [address]: Cosmetic Sales Advisor/Contact Lens Molder [phone] for MANSI TILLEY POCT-GLUCOSE [id number] 12:28:00 Test Item Value Reference Range Comments POC-GLUCOSE METER (BEAKER) 290 mg/dL 70-110 : TESTED AT [address] (test cyxl=0164) [facility], [address]: Cosmetic Sales Advisor/Contact Lens Molder [id number] for MANSI TILLEY CBC W/PLT COUNT & AUTO [id number] 09:34:00 Test Item Value Reference Range Comments WHITE BLOOD CELL COUNT (BEAKER) (test kbik=661) 5.7 K/ L 3.5-10.5 RED BLOOD CELL COUNT (BEAKER) (test epdl=288) 2.34 M/ L 4.63-6.08 HEMOGLOBIN (BEAKER) (test bayv=216) 7.8 GM/DL 13.7-17.5 HEMATOCRIT (BEAKER) (test eaam=298) 24.8 % 40.1-51.0 MEAN CORPUSCULAR VOLUME (BEAKER) (test rydg=294) 106.0 fL 79.0-92.2 MEAN CORPUSCULAR HEMOGLOBIN (BEAKER) (test 33.3 pg 25.7-32.2 smfu=731) MEAN CORPUSCULAR HEMOGLOBIN CONC (BEAKER) (test 31.5 GM/DL 32.3-36.5 sxpr=215) RED CELL DISTRIBUTION WIDTH (BEAKER) (test 24.4 % 11.6-14.4 oqsb=639) PLATELET COUNT (BEAKER) (test iwsz=827) 41 K/CU MM 150-450 MEAN PLATELET VOLUME (BEAKER) (test pjnb=247) 12.0 fL 9.4-12.4 NUCLEATED RED BLOOD CELLS (BEAKER) (test 0 /100 WBC 0-0 lhmb=966) (CELLAVISION MANUAL DIFF)2019-04-21 09:34:00 Test Item Value Reference Range Comments NEUTROPHILS - REL (CELLAVISION)(BEAKER) (test 97 % utlx=3781) LYMPHOCYTES - REL (CELLAVISION)(BEAKER) (test 1 % wwjl=6571) MONOCYTES - REL (CELLAVISION)(BEAKER) (test 2 % csrm=2776) NEUTROPHILS - ABS (CELLAVISION)(BEAKER) (test 5.53 K/ul 1.78-5.38 xeet=7505) LYMPHOCYTES - ABS (CELLAVISION)(BEAKER) (test 0.06 K/ul 1.32-3.57 qwnu=1420) MONOCYTES - ABS (CELLAVISION)(BEAKER) (test 0.11 K/uL 0.30-0.82 cofq=0463) TOTAL COUNTED (BEAKER) (test eoyk=7605) 100 WBC MORPHOLOGY (BEAKER) (test mdvg=123) Normal PLT MORPHOLOGY (BEAKER) (test vuqp=654) Normal POLYCHROMATOPHILLIC RBCS(BEAKER) (test lcok=382) 1+ few HYPOCHROMIA (BEAKER) (test gpyq=746) 1+ few ANISOCYTOSIS (BEAKER) (test mphn=755) 2+ moderate MICROCYTES (BEAKER) (test eryc=399) 1+ few MACROCYTES (BEAKER) (test cbnt=057) 1+ few POIKILOCYTES (BEAKER) (test jhjx=162) 3+ many TEAR DROP CELLS (BEAKER) (test wzdr=910) 1+ few ACANTHOCYTES (BEAKER) (test cwna=745) 2+ moderate MEG CELLS (BEAKER) (test wvsh=347) 1+ few ARTIFACT (CELLAVISION)(BEAKER) (test nakk=2398) Present HELMET CELLS (CELLAVISION)(BEAKER) (test 1+ few nzqq=6839) PLATELET CONCENTRATION (CELLAVISION)(BEAKER) Decreased (test grjl=0326) Received comment: User comments: Slide comments:POCT-GLUCOSE [id number] 08: 39:00 Test Item Value Reference Range Comments POC-GLUCOSE METER (BEAKER) 123 mg/dL 70-110 : TESTED AT [address] (test tssi=9633) [facility], [address]: Cosmetic Sales Advisor/Contact Lens Molder PX=[phone] for MANSI TILLEY HEPATIC FUNCTION [id number] 05:56:00 Test Item Value Reference Range Comments TOTAL PROTEIN (BEAKER) (test ildz=439) 5.7 gm/dL 6.0-8.3 ALBUMIN (BEAKER) (test agmq=1521) 1.4 g/dL 3.5-5.0 BILIRUBIN TOTAL (BEAKER) (test kgpl=774) 5.0 mg/dL 0.2-1.2 BILIRUBIN DIRECT (BEAKER) (test ajmr=568) 2.8 mg/dL 0.1-0.5 ALKALINE PHOSPHATASE (BEAKER) (test uhjk=501) 148 U/L 40-150 AST (SGOT) (BEAKER) (test emdf=449) 44 U/L 5-34 ALT (SGPT) (BEAKER) (test figa=980) 36 U/L 6-55 Specimen moderately [id number] 05:55:00 Test Item Value Reference Range Comments MAGNESIUM (BEAKER) (test psqp=377) 1.6 mg/dL 1.6-2.6 BASIC METABOLIC [id number] 05:55:00 Test Item Value Reference Range Comments SODIUM (BEAKER) (test 131 meq/L 136-145 plql=338) POTASSIUM (BEAKER) (test 4.1 meq/L 3.5-5.1 efpk=410) CHLORIDE (BEAKER) (test 108 meq/L 98-107 jusl=356) CO2 (BEAKER) (test 21 meq/L 22-29 jtoh=585) BLOOD UREA NITROGEN 11 mg/dL 7-21 (BEAKER) (test btys=026) CREATININE (BEAKER) (test 0.78 mg/dL 0.57-1.25 caun=010) GLUCOSE RANDOM (BEAKER) 119 mg/dL 70-105 (test hzhm=746) CALCIUM (BEAKER) (test 8.8 mg/dL 8.4-10.2 qodp=011) EGFR (BEAKER) (test 105 mL/min/1.73 sq m ESTIMATED GFR IS NOT ptcz=2025) ACCURATE CREATININE CLEARANCE IN PREDICTING GLOMERULAR FILTRATION RATE. ESTIMATED GFR IS NOT APPLICABLE FOR DIALYSIS PATIENTS. Specimen moderately ictericPT/[id number] 05:24:00 Test Item Value Reference Range Comments PROTIME (BEAKER) (test tswj=860) 30.5 seconds 11.9-14.2 INR (BEAKER) (test lwee=452) 3.1 <=5.9 PARTIAL THROMBOPLASTIN TIME (BEAKER) (test 61.6 seconds 22.5-36.0 bzjg=788) Effective 10/09/2018: PT Reference Range ChangeNew: 11.9-14.2 Previous: 11.7- 14.7RECOMMENDED COUMADIN/WARFARIN INR THERAPY RANGESSTANDARD DOSE: 2.0-3.0 Includes: PROPHYLAXIS for venous thrombosis, systemic embolization; TREATMENT for venous thrombosis and/or pulmonary embolus.HIGH RISK: Target INR is2.5-3.5 for patients wiht mechanical heart valves.CT, SPINE, THORACIC, [id number] 01:05:00FINAL REPORT EXAM: CT, SPINE, THORACIC, CONTRAST CLINICAL INDICATION: Back pain. TECHNIQUE: Helical CT examination of the thoracic spine without IV contrast. Axial, sagittal,and coronal reconstructed images. This exam was performed according to our departmental dose -optimization program, which includes automated exposure control, adjustment of the mA and/or kV according topatient size and/or use of iterative reconstruction technique. COMPARISON: 04/05/2019 CT chest FINDINGS: Alignment: Normal Vertebral Bodies: No acute fracture. Vertebral body heights are preserved. There are Schmorl's nodes at the inferior endplates T9 and T10 similar to prior. No destructive changes.Intervertebral Discs: Mild multilevel degenerative disc disease. Included Intrathoracic Structures: No significant change in small left pleural effusion with adjacent atelectasis. Paraspinal Soft Tissues: A TIPS stent is present. Individual Levels: No spinal canal stenosis or foraminal narrowing. IMPRESSION: No acute abnormality or finding to account for back pain. No evidence of spinal infection. Small left pleural effusion with adjacent atelectasis similar to prior chest CT. Signed: Calixto Kohli MDReport Verified Date/Time: 04/21/2019 01:05:06 POCT-GLUCOSE [id number] 21:04:00 Test Item Value Reference Range Comments POC-GLUCOSE METER (stickapps) 315 mg/dL 70-110 : TESTED AT [address] (test lrft=0975) [facility], [address]: Cosmetic Sales Advisor/Contact Lens Molder OH=[phone] for SUZY RIOS POCT-GLUCOSE [id number] 16:42:00 Test Item Value Reference Range Comments POC-GLUCOSE METER (BEAKER) 145 mg/dL 70-110 : TESTED AT [address] (test yczf=1163) [facility], [address]: Cosmetic Sales Advisor/Contact Lens Molder [phone] for Queen Snider VANCOMYCIN LEVEL, [id number] 13:26:00 Test Item Value Reference Range Comments VANCOMYCIN TROUGH ([facility]) (test gxsb=946) 25.0 ug/mL 10.0-20.0 MRSA [id number] 13:09:00 Test Item Value Reference Range Comments CULTURE ([facility]) (test 4+ Methicillin resistant lxja=4069) Staphylococcus aureus POCT-GLUCOSE [id number] 12:20:00 Test Item Value Reference Range Comments POC-GLUCOSE METER (BESemanticator) 154 mg/dL 70-110 : TESTED AT [address] (test omgl=5012) [facility], [address]: Cosmetic Sales Advisor/Contact Lens Molder [phone] for Queen Snider CBC W/PLT COUNT & AUTO [id number] 09:49:00 Test Item Value Reference Range Comments WHITE BLOOD CELL COUNT (BEAKER) (test vsrz=830) 4.8 K/ L 3.5-10.5 RED BLOOD CELL COUNT (BEAKER) (test kkjp=369) 2.37 M/ L 4.63-6.08 HEMOGLOBIN (BEAKER) (test ebxa=823) 7.9 GM/DL 13.7-17.5 HEMATOCRIT (BEAKER) (test iekq=181) 24.9 % 40.1-51.0 MEAN CORPUSCULAR VOLUME (BEAKER) (test qyqj=366) 105.1 fL 79.0-92.2 MEAN CORPUSCULAR HEMOGLOBIN (BEAKER) (test 33.3 pg 25.7-32.2 pliw=612) MEAN CORPUSCULAR HEMOGLOBIN CONC (BEAKER) (test 31.7 GM/DL 32.3-36.5 cpwn=789) RED CELL DISTRIBUTION WIDTH (BEAKER) (test 24.5 % 11.6-14.4 gmyp=392) PLATELET COUNT (BEAKER) (test titz=162) 38 K/CU MM 150-450 MEAN PLATELET VOLUME (BEAKER) (test gnzs=557) 11.6 fL 9.4-12.4 NUCLEATED RED BLOOD CELLS (BEAKER) (test 0 /100 WBC 0-0 lfei=116) (CELLAVISION MANUAL DIFF)2019-04-20 09:49:00 Test Item Value Reference Range Comments NEUTROPHILS - REL (CELLAVISION)(BEAKER) (test 94 % kvob=2530) LYMPHOCYTES - REL (CELLAVISION)(BEAKER) (test 1 % zntp=0119) MONOCYTES - REL (CELLAVISION)(BEAKER) (test 4 % akbt=5671) ATYPICAL LYMPHOCYTES - REL (CELLAVISION)(BEAKER) 1 % 0-0 (test oduz=1510) NEUTROPHILS - ABS (CELLAVISION)(BEAKER) (test 4.51 K/ul 1.78-5.38 sgdj=9497) LYMPHOCYTES - ABS (CELLAVISION)(BEAKER) (test 0.05 K/ul 1.32-3.57 ivhu=9504) MONOCYTES - ABS (CELLAVISION)(BEAKER) (test 0.19 K/uL 0.30-0.82 cqff=2177) ATYPICAL LYMPHOCYTES - ABS (CELLAVISION)(BEAKER) 0.05 K/uL 0.00-0.00 (test apsm=8445) TOTAL COUNTED (BEAKER) (test lhgz=1991) 100 WBC MORPHOLOGY (BEAKER) (test sahj=476) Normal PLT MORPHOLOGY (BEAKER) (test viou=139) Normal POLYCHROMATOPHILLIC RBCS(BEAKER) (test irnj=746) 1+ few SCHISTOCYTES (BEAKER) (test rikh=766) 1+ few MEG CELLS (BEAKER) (test oxbh=565) 1+ few ARTIFACT (CELLAVISION)(BEAKER) (test rwca=9846) Present PLATELET CONCENTRATION (CELLAVISION)(BEAKER) (test Decreased fitz=4853) Received comment: User comments: Slide comments:C-REACTIVE [id number] 07: 25:00 Test Item Value Reference Range Comments C-REACTIVE PROTEIN (BEAKER) (test odng=390) 1.99 mg/dL 0.00-0.50 HEPATIC FUNCTION [id number] 07:24:00 Test Item Value Reference Range Comments TOTAL PROTEIN (BEAKER) (test dydm=351) 5.6 gm/dL 6.0-8.3 ALBUMIN (BEAKER) (test odiy=9446) 1.5 g/dL 3.5-5.0 BILIRUBIN TOTAL (BEAKER) (test owfg=189) 5.5 mg/dL 0.2-1.2 BILIRUBIN DIRECT (BEAKER) (test cbux=561) 3.1 mg/dL 0.1-0.5 ALKALINE PHOSPHATASE (BEAKER) (test cqye=888) 147 U/L 40-150 AST (SGOT) (BEAKER) (test cark=667) 43 U/L 5-34 ALT (SGPT) (BEAKER) (test umuv=144) 35 U/L 6-55 Specimen moderately ictericVANCOMYCIN LEVEL, [id number] 07:22:00 Test Item Value Reference Range Comments VANCOMYCIN TROUGH (BEAKER) (test tifw=207) 19.5 ug/mL 10.0-20.0 [id number] 07:19:00 Test Item Value Reference Range Comments MAGNESIUM (BEAKER) (test xuie=360) 1.8 mg/dL 1.6-2.6 BASIC METABOLIC [id number] 07:19:00 Test Item Value Reference Range Comments SODIUM (BEAKER) (test 131 meq/L 136-145 bbaa=900) POTASSIUM (BEAKER) (test 3.6 meq/L 3.5-5.1 zofu=127) CHLORIDE (BEAKER) (test 107 meq/L 98-107 kfpt=699) CO2 (BEAKER) (test 22 meq/L 22-29 rgre=566) BLOOD UREA NITROGEN 12 mg/dL 7-21 (BEAKER) (test ksex=687) CREATININE (BEAKER) (test 0.82 mg/dL 0.57-1.25 oxdo=468) GLUCOSE RANDOM (BEAKER) 147 mg/dL 70-105 (test whuc=126) CALCIUM (BEAKER) (test 8.2 mg/dL 8.4-10.2 nahv=700) EGFR (BEAKER) (test 99 mL/min/1.73 sq m ESTIMATED GFR IS NOT xamb=5650) ACCURATE CREATININE CLEARANCE IN PREDICTING GLOMERULAR FILTRATION RATE. ESTIMATED GFR IS NOT APPLICABLE FOR DIALYSIS PATIENTS. Specimen moderately ictericLACTIC ACID, [id number] 07:15:00 Test Item Value Reference Range Comments LACTATE BLOOD VENOUS (2) (BEAKER) (test 2.0 mmol/L 0.5-2.2 twez=9493) Specimen moderately ictericPOCT-GLUCOSE [id number] 07:10:00 Test Item Value Reference Range Comments POC-GLUCOSE METER (BEAKER) 127 mg/dL 70-110 : TESTED AT [facility] [address] [facility] (test jyub=2008) [facility], [address]: Cosmetic Sales Advisor/Contact Lens Molder XU=[phone] for Queen Snider [id number] 06:55:00 Test Item Value Reference Range Comments PROTIME (BEAKER) (test rlth=734) 31.7 seconds 11.9-14.2 INR (BEAKER) (test rrtu=532) 3.3 <=5.9 PARTIAL THROMBOPLASTIN TIME (BEAKER) (test 61.5 seconds 22.5-36.0 eruu=070) Effective 10/09/2018: PT Reference Range ChangeNew: 11.9-14.2 Previous: 11.7- 14.7RECOMMENDED COUMADIN/WARFARIN INR THERAPY RANGESSTANDARD DOSE: 2.0-3.0 Includes: PROPHYLAXIS for venous thrombosis, systemic embolization; TREATMENT for venous thrombosis and/or pulmonary embolus.HIGH RISK: Target INR is2.5-3.5 for patients wiht mechanical heart valves.POCT-GLUCOSE [id number] 16:52:00 Test Item Value Reference Range Comments POC-GLUCOSE METER (BEAKER) 129 mg/dL 70-110 : TESTED AT 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 DOSE REDUCTION: Dose modulation, iterative reconstruction, and/or weight-based adjustment of the mA/kV was utilized to reduce the radiation dose to as low as reasonably achievable. FINDINGS:Cerebral parenchyma: Global cerebral volume loss is stable. There has been no recent infarct or hemorrhage. Postcontrast series reveal no abnormal enhancement.Midline structures: Normally positioned.Cerebellum and brainstem: Normal.Ventricles: Normal volume.Extra-axial spaces: Unremarkable. Calvarium and skull base: Intact.Paranasal sinuses and mastoid air cells: Visible chambers are clear.Orbital contents: Included portions unremarkable. Additional findings: None. IMPRESSION: No acute intracranial abnormality or abnormal postcontrast enhancement. Signed: JR Oquendo Robert MDReport Verified Date/Time: 04/19/2019 16:09:46 Reading Location: [facility] C013V Neuro Reading Room LACTIC ACID, [id number] 13:28:00 Test Item Value Reference Range Comments LACTATE BLOOD VENOUS (2) (BEAKER) (test 5.1 mmol/L 0.5-2.2 vntd=5126) Specimen moderately ictericPOCT-GLUCOSE [id number] 12:10:00 Test Item Value Reference Range Comments POC-GLUCOSE METER (BEAKER) 174 mg/dL 70-110 : TESTED AT [facility] [address] (test kyon=4913) [facility], [address]: Cosmetic Sales Advisor/Contact Lens Molder RY=[phone] for Queen Snider CBC W/PLT COUNT & AUTO [id number] 09:21:00 Test Item Value Reference Range Comments WHITE BLOOD CELL COUNT (BEAKER) (test hyep=361) 3.4 K/ L 3.5-10.5 RED BLOOD CELL COUNT (BEAKER) (test ohcb=428) 2.33 M/ L 4.63-6.08 HEMOGLOBIN (BEAKER) (test leaz=199) 7.9 GM/DL 13.7-17.5 HEMATOCRIT (BEAKER) (test bntn=248) 24.7 % 40.1-51.0 MEAN CORPUSCULAR VOLUME (BEAKER) (test dwpc=918) 106.0 fL 79.0-92.2 MEAN CORPUSCULAR HEMOGLOBIN (BEAKER) (test 33.9 pg 25.7-32.2 ghhb=911) MEAN CORPUSCULAR HEMOGLOBIN CONC (BEAKER) (test 32.0 GM/DL 32.3-36.5 ujhg=210) RED CELL DISTRIBUTION WIDTH (BEAKER) (test 24.6 % 11.6-14.4 jcog=940) PLATELET COUNT (BEAKER) (test flhc=261) 35 K/CU MM 150-450 MEAN PLATELET VOLUME (BEAKER) (test ckdp=703) 10.4 fL 9.4-12.4 NUCLEATED RED BLOOD CELLS (BEAKER) (test 0 /100 WBC 0-0 taoj=202) (CELLAVISION MANUAL DIFF)2019-04-19 09:21:00 Test Item Value Reference Range Comments NEUTROPHILS - REL (CELLAVISION)(BEAKER) (test 87 % pkfy=8168) LYMPHOCYTES - REL (CELLAVISION)(BEAKER) (test 5 % dtjk=1365) MONOCYTES - REL (CELLAVISION)(BEAKER) (test 4 % upfm=5316) EOSINOPHILS - REL (CELLAVISION)(BEAKER) (test 2 % hmri=6631) BANDS - REL (CELLAVISION)(BEAKER) (test 2 % 0-10 zcma=4391) NEUTROPHILS - ABS (CELLAVISION)(BEAKER) (test 2.96 K/ul 1.78-5.38 xeqj=7152) LYMPHOCYTES - ABS (CELLAVISION)(BEAKER) (test 0.17 K/ul 1.32-3.57 ambd=6855) MONOCYTES - ABS (CELLAVISION)(BEAKER) (test 0.14 K/uL 0.30-0.82 sdzn=1754) EOSINOPHILS - ABS (CELLAVISION)(BEAKER) (test 0.07 K/uL 0.04-0.54 nuib=9975) BANDS - ABS (CELLAVISION)(BEAKER) (test 0.07 K/uL 0.00-0.80 yvxk=7399) TOTAL COUNTED (BEAKER) (test upsz=3369) 100 PLT MORPHOLOGY (BEAKER) (test pvpc=887) Normal SMUDGE CELLS (BEAKER) (test ntdz=3306) Present POLYCHROMATOPHILLIC RBCS(BEAKER) (test lawb=973) 1+ few ANISOCYTOSIS (BEAKER) (test ueas=288) 2+ moderate POIKILOCYTES (BEAKER) (test ixns=003) 2+ moderate SCHISTOCYTES (BEAKER) (test cgwi=393) 1+ few MEG CELLS (BEAKER) (test hwzt=950) 3+ many PLATELET CONCENTRATION (CELLAVISION)(BEAKER) Decreased (test jlsb=8402) Received comment: User comments: Slide comments:POCT-GLUCOSE [id number] 07: 25:00 Test Item Value Reference Range Comments POC-GLUCOSE METER (BEAKER) 73 mg/dL 70-110 : TESTED AT [facility] [address] [facility] (test cfdp=8134) [facility], [address]: Cosmetic Sales Advisor/Contact Lens Molder [phone] for Queen Snider BASIC METABOLIC [id number] 06:53:00 Test Item Value Reference Range Comments SODIUM (BEAKER) (test 132 meq/L 136-145 fzwk=940) POTASSIUM (BEAKER) (test 3.5 meq/L 3.5-5.1 wbra=704) CHLORIDE (BEAKER) (test 107 meq/L 98-107 jjke=147) CO2 (BEAKER) (test 23 meq/L 22-29 suwy=973) BLOOD UREA NITROGEN 9 mg/dL 7-21 (BEAKER) (test auwl=973) CREATININE (BEAKER) (test 0.70 mg/dL 0.57-1.25 fbgy=974) GLUCOSE RANDOM (BEAKER) 73 mg/dL 70-105 (test roew=840) CALCIUM (BEAKER) (test 7.8 mg/dL 8.4-10.2 ocpc=849) EGFR (BEAKER) (test 118 mL/min/1.73 sq m ESTIMATED GFR IS NOT uktq=9675) ACCURATE CREATININE CLEARANCE IN PREDICTING GLOMERULAR FILTRATION RATE. ESTIMATED GFR IS NOT APPLICABLE FOR DIALYSIS PATIENTS. Specimen moderately [id number] 06:50:00 Test Item Value Reference Range Comments MAGNESIUM (BEAKER) (test akqc=948) 1.4 mg/dL 1.6-2.6 VANCOMYCIN LEVEL, [id number] 06:48:00 Test Item Value Reference Range Comments VANCOMYCIN TROUGH (BEAKER) (test gtbr=353) < ug/mL 10.0-20.0 Please obtain prior to 4th dose of vancomycinPT/[id number] 06:06:00 Test Item Value Reference Range Comments PROTIME (BEAKER) (test iagu=963) 33.4 seconds 11.9-14.2 INR (BEAKER) (test fsyi=099) 3.5 <=5.9 PARTIAL THROMBOPLASTIN TIME (BEAKER) (test 65.5 seconds 22.5-36.0 qmyp=491) Effective 10/09/2018: PT Reference Range ChangeNew: 11.9-14.2 Previous: 11.7- 14.7RECOMMENDED COUMADIN/WARFARIN INR THERAPY RANGESSTANDARD DOSE: 2.0-3.0 Includes: PROPHYLAXIS for venous thrombosis, systemic embolization; TREATMENT for venous thrombosis and/or pulmonary embolus.HIGH RISK: Target INR is2.5-3.5 for patients wiht mechanical heart valves.BLOOD CULTURE IDENTIFICATION [id number] 04:40:00 Test Item Value Reference Range Comments LISTERIA MONOCYTOGENES (test Not detected Not detected addh=[id number]) STAPHYLOCOCCUS (test Detected Not detected xqlq=4205065) STAPHYLOCOCCUS AUREUS (test Detected Not detected Methicillin-resistant S. cfjz=8960970) aureus (MRSA)First-line therapy: VancomycinID CONSULTATION REQUIRED. Staphylococcus aureus DETECTED MecA DETECTEDReference Range: Not Detected STREPTOCOCCUS (test Not detected Not detected nwuj=9338768) STREPTOCOCCUS AGALACTIAE Not detected Not detected (GROUP B) (test zksx=8773231) STREPTOCOCCUS PNEUMONIAE Not detected Not detected (test idkb=0307569) STREPTOCOCCUS PYOGENES (GROUP Not detected Not detected A) (test pdox=9423689) ACINETOBACTER BAUMANNII (test Not detected Not detected bsqh=0829670) HAEMOPHILUS INFLUENZAE (test Not detected Not detected kgfq=0054158) NEISSERIA MENINGITIDIS (test Not detected Not detected lbxx=8483613) ENTEROBACTERIACEAE (test Not detected Not detected lcmr=5278248) ENTEROBACTER CLOACOE COMPLEX Not detected Not detected (test zsnp=4547946) KLEBSIELLA OXYTOCA (test Not detected Not detected crab=1768648) KLEBSIELLA PNEUMONIAE (test Not detected Not detected vehn=7906) PROTEUS (test upvv=8991996) Not detected Not detected SERRATIA MARCESCENS (test Not detected Not detected hcpa=2571866) LENNIE ALBICANS (test Not detected Not detected kcvr=7544227) LENNIE GLABRATA (test Not detected Not detected hfwf=8063189) LENNIE KRUSEI (test Not detected Not detected khzb=1882867) LENNIE PARAPSILOSIS (test Not detected Not detected eltu=4101611) LENNIE TROPICALIS (test Not detected Not detected ddak=5951077) ESCHERICHIA COLI (test Not detected Not detected poml=8571045) METHICILLIN-RESISTANCE GENE Detected Not detected (test fhqg=0910982) VANCOMYCIN-RESISTANCE GENE (test yqzm=4778583) CARBAPENEM-RESISTANCE GENE (test hklo=0305532) ENTEROCOCCUS-BEAKER (test Not detected Not detected zjhe=6209145) PSEUDOMONAS AERUGINOSA-BEAKER Not detected Not detected (test fcfw=5803687) Other bacteria and resistance markers not targeted by this PCR panel cannot be excluded; therefore clinical correlation and follow up of serology, culture results, and other molecular studies is required. The results are not intended to be used as the sole means for clinical diagnosis or patient management decisions. This sample was tested at the [facility] Molecular Diagnostics Laboratory using the [email or web address] Blood Culture ID Panel. It is FDA cleared and has been verified and approved by the [facility] Molecular Diagnostics Laboratory for clinical use. This laboratory is CLIA-certified and College ofAmerican Pathologists (CAP)-accredited to perform high complexity testing.POCT-GLUCOSE [id number] 22:12:00 Test Item Value Reference Range Comments POC-GLUCOSE METER (BEAKER) 149 mg/dL 70-110 : Notified RN/MD: TESTED AT (test wori=2285) [facility] [address] [facility], [address]: Cosmetic Sales Advisor/Contact Lens Molder [phone] for SUZY RIOS POCT-GLUCOSE [id number] 16:52:00 Test Item Value Reference Range Comments POC-GLUCOSE METER (BEAKER) 129 mg/dL 70-110 : TESTED AT [facility] [address] [facility] (test imwx=2713) [facility], [address]: Cosmetic Sales Advisor/Contact Lens Molder RK=[phone] for Queen Snider RAD, CHEST, 2 [id number] 14:47:00Reason for exam:->fever, eval for pneumoniaFINAL REPORT TECHNIQUE: Frontal and lateral chest radiographs dated 04/18/2019. CLINICAL HISTORY: Fever, eval COMPARISON STUDY: Chest radiograph dated 04/04/2019 FINDINGS: Lungsare clear. No pleural effusion or pneumothorax. Cardiomediastinal silhouette is normal in size. No pulmonary edema. No fracture. Multiple radiodense structures are seen in the middle mediastinum possibly within the esophagus. IMPRESSION: Clear lungs. Signed: Jj Schneider MDReport Verified Date/Time: 04/18/2019 14:47:10 Reading Location: [facility] Reading Room RESPIRATORY PANEL [id number] 13:03:00 Test Item Value Reference Range Comments HUMAN METAPNEUMOVIRUS (BEAKER) (test Not detected Not detected, Equivocal jicb=8197) RHINOVIRUS (BEAKER) (test cgsp=2105) Not detected Not detected, Equivocal INFLUENZA A (BEAKER) (test ihvo=6492) Not detected Not detected, Equivocal INFLUENZA A (NO SUBTYPE) (test sqcs=0203) INFLUENZA A SUBTYPE H1 (BEAKER) (test kcmo=3948) INFLUENZA A SUBTYPE H3 (BEAKER) (test jzpy=9898) INFLUENZA A SUBTYPE H1-2009 (BEAKER) (test wcuy=8971) INFLUENZA B (BEAKER) (test xfqy=7466) Not detected Not detected, Equivocal RESPIRATORY SYNCYTIAL VIRUS (BEAKER) Not detected Not detected, Equivocal (test arlz=5651) PARAINFLUENZA VIRUS 1 (BEAKER) (test Not detected Not detected, Equivocal imbg=5499) PARAINFLUENZA VIRUS 2 (BEAKER) (test Not detected Not detected, Equivocal eeoo=1004) PARAINFLUENZA VIRUS 3 (BEAKER) (test Not detected Not detected, Equivocal vdgw=3401) PARAINFLUENZA VIRUS 4 (BEAKER) (test Not detected Not detected, Equivocal dxwx=6350) ADENOVIRUS (BEAKER) (test jqrz=5264) Not detected Not detected, Equivocal CORONAVIRUS 229E (BEAKER) (test Not detected Not detected, Equivocal kpte=8342) CORONAVIRUS HKU1 (BEAKER) (test Not detected Not detected, Equivocal ltbk=5209) CORONAVIRUS NL63 (BEAKER) (test Not detected Not detected, Equivocal ywfm=3277) CORONAVIRUS OC43 (BEAKER) (test Not detected Not detected, Equivocal vjsr=9709) BORDETELLA PERTUSSIS (BEAKER) (test Not detected Not detected, Equivocal zyjj=8548) CHLAMYDOPHILA PNEUMONIAE (BEAKER) (test Not detected Not detected, Equivocal uokp=5911) MYCOPLASMA PNEUMONIAE (BEAKER) (test Not detected Not detected, Equivocal rnth=6802) Other viruses and bacteria not targeted by this PCR panel cannot be excluded; therefore clinical correlation and follow up of serology, culture results, and other molecular studies is required. The results are not intended to be used as the sole means for clinical diagnosis or patient management decisions. This sample was tested at the [facility] Molecular Diagnostics Laboratory using the [employer] Respiratory Panel. It is FDA cleared and has been verified and approved by the [facility]ostics [facility] for clinical use on nasopharyngeal swab specimens.The performance of the FilmArrayRP has not been established in individuals who received influenza vaccine. Recent administration ofa nasal influenza vaccine may cause false positive results for Influenza A and/orInfluenza B.POCT-GLUCOSE [id number] 12:11:00 Test Item Value Reference Range Comments POC-GLUCOSE METER (BEAKER) 155 mg/dL 70-110 : TESTED AT [facility] [address] (test mcuw=4657) [facility], [id number]: Cosmetic Sales Advisor/Contact L[employer] Molder YO=[id number] for [employer] HEPATIC FUNCTION [id number] 11:07:00 Test Item Value Reference Range Comments TOTAL PROTEIN (BEAKER) (test kkqb=502) 5.4 gm/dL 6.0-8.3 ALBUMIN (BEAKER) (test anqx=1836) 1.5 g/dL 3.5-5.0 BILIRUBIN TOTAL (BEAKER) (test qdht=599) 7.9 mg/dL 0.2-1.2 BILIRUBIN DIRECT (BEAKER) (test euus=341) 3.3 mg/dL 0.1-0.5 ALKALINE PHOSPHATASE (BEAKER) (test stud=891) 155 U/L 40-150 AST (SGOT) (BEAKER) (test esmn=733) 45 U/L 5-34 ALT (SGPT) (BEAKER) (test moko=862) 35 U/L 6-55 Specimen moderately ictericPOCT-GLUCOSE [id number] 07:21:00 Test Item Value Reference Range Comments POC-GLUCOSE METER (BEAKER) 79 mg/dL 70-110 : TESTED AT [address] (test zdsq=1691) [facility], [id number]: Cosmetic Sales Advisor/Contact Lens Molder YN=[id number] for [employer] URINALYSIS W/ REFLEX URINE [id number] 07:05:00 Test Item Value Reference Range Comments COLOR (BEAKER) (test hmea=493) Yellow CLARITY (BEAKER) (test cmdb=977) Clear SPECIFIC GRAVITY UA (BEAKER) (test henv=823) 1.011 1.001-1.035 PH UA (BEAKER) (test kxfj=597) 7.0 5.0-8.0 PROTEIN UA (BEAKER) (test yalh=530) Negative Negative GLUCOSE UA (BEAKER) (test rdxn=670) Negative Negative KETONES UA (BEAKER) (test vwas=727) Negative Negative BILIRUBIN UA (BEAKER) (test diqc=269) Positive Negative BLOOD UA (BEAKER) (test uvgj=234) Moderate Negative NITRITE UA (BEAKER) (test rekn=663) Negative Negative LEUKOCYTE ESTERASE UA (BEAKER) (test ofwc=277) Negative Negative UROBILINOGEN UA (BEAKER) (test dlef=615) 0.2 mg/dL 0.2-1.0 RBC UA (BEAKER) (test wzoy=481) 20 /HPF WBC UA (BEAKER) (test fjza=084) 4 /HPF BACTERIA (BEAKER) (test mxes=381) Occasional YEAST (BEAKER) (test cwsg=8652) Occasional SOURCE(BEAKER) (test zuce=5237) [id number] 06:46:00 Test Item Value Reference Range Comments MAGNESIUM (BEAKER) (test evcl=896) 1.5 mg/dL 1.6-2.6 BASIC METABOLIC [id number] 06:46:00 Test Item Value Reference Range Comments SODIUM (BEAKER) (test 135 meq/L 136-145 jugw=894) POTASSIUM (BEAKER) (test 3.4 meq/L 3.5-5.1 slth=936) CHLORIDE (BEAKER) (test 108 meq/L 98-107 uspx=390) CO2 (BEAKER) (test 25 meq/L 22-29 oycp=076) BLOOD UREA NITROGEN 8 mg/dL 7-21 (BEAKER) (test wmpn=942) CREATININE (BEAKER) (test 0.72 mg/dL 0.57-1.25 dsqt=142) GLUCOSE RANDOM (BEAKER) 83 mg/dL 70-105 (test xxxd=113) CALCIUM (BEAKER) (test 8.0 mg/dL 8.4-10.2 fpmm=907) EGFR (BEAKER) (test 115 mL/min/1.73 sq m ESTIMATED GFR IS NOT heay=5504) ACCURATE CREATININE CLEARANCE IN PREDICTING GLOMERULAR FILTRATION RATE. ESTIMATED GFR IS NOT APPLICABLE FOR DIALYSIS PATIENTS. Specimen moderately ictericCBC W/PLT COUNT & AUTO [id number] 06: 25:00 Test Item Value Reference Range Comments WHITE BLOOD CELL COUNT (BEAKER) (test xgox=284) 3.7 K/ L 3.5-10.5 RED BLOOD CELL COUNT (BEAKER) (test mbse=460) 2.35 M/ L 4.63-6.08 HEMOGLOBIN (BEAKER) (test dadc=004) 7.8 GM/DL 13.7-17.5 HEMATOCRIT (BEAKER) (test eykz=336) 25.3 % 40.1-51.0 MEAN CORPUSCULAR VOLUME (BEAKER) (test xmhf=345) 107.7 fL 79.0-92.2 MEAN CORPUSCULAR HEMOGLOBIN (BEAKER) (test 33.2 pg 25.7-32.2 uaqg=734) MEAN CORPUSCULAR HEMOGLOBIN CONC (BEAKER) (test 30.8 GM/DL 32.3-36.5 avwj=594) RED CELL DISTRIBUTION WIDTH (BEAKER) (test 25.2 % 11.6-14.4 scmj=824) PLATELET COUNT (BEAKER) (test mjtx=232) 34 K/CU MM 150-450 MEAN PLATELET VOLUME (BEAKER) (test exmf=662) 11.3 fL 9.4-12.4 NUCLEATED RED BLOOD CELLS (BEAKER) (test 0 /100 WBC 0-0 mtgt=356) NEUTROPHILS RELATIVE PERCENT (BEAKER) (test 81 % svsq=164) LYMPHOCYTES RELATIVE PERCENT (BEAKER) (test 9 % dbvi=131) MONOCYTES RELATIVE PERCENT (BEAKER) (test 6 % khpi=347) EOSINOPHILS RELATIVE PERCENT (BEAKER) (test 1 % ogwv=625) BASOPHILS RELATIVE PERCENT (BEAKER) (test 1 % lcjl=625) NEUTROPHILS ABSOLUTE COUNT (BEAKER) (test 2.95 K/ L 1.78-5.38 dafz=777) LYMPHOCYTES ABSOLUTE COUNT (BEAKER) (test 0.34 K/ L 1.32-3.57 hhhm=251) MONOCYTES ABSOLUTE COUNT (BEAKER) (test pgym=425) 0.23 K/ L 0.30-0.82 EOSINOPHILS ABSOLUTE COUNT (BEAKER) (test 0.05 K/ L 0.04-0.54 vsgp=557) BASOPHILS ABSOLUTE COUNT (BEAKER) (test owvz=173) 0.02 K/ L 0.01-0.08 IMMATURE GRANULOCYTES-RELATIVE PERCENT (BEAKER) 2 % 0-1 (test vtzd=8521) POCT-GLUCOSE [id number] 21:38:00 Test Item Value Reference Range Comments POC-GLUCOSE METER (BEAKER) 129 mg/dL 70-110 : TESTED AT [facility] [address] [facility] (test fhwz=7348) [facility], [address]: Cosmetic Sales Advisor/Contact Lens Molder [phone] for MARY LOU CHRISTIANSEN [id number] 20:40:00 Test Item Value Reference Range Comments PROCALCITONIN (BEAKER) (test mszz=6477) 0.05 ng/mL <0.05 SEPSIS RISK (ng/mL)Low: 0.05-0.50Intermediate: 0.51-2.00High: & gt;=2.01POCT-GLUCOSE [id number] 18:06:00 Test Item Value Reference Range Comments POC-GLUCOSE METER (BEAKER) 88 mg/dL 70-110 : TESTED AT [address] (test zrzt=8187) [facility], [address]: Cosmetic Sales Advisor/Contact Lens Molder [phone] for ALICIA DELAOTRRE POCT-GLUCOSE [id number] 13:31:00 Test Item Value Reference Range Comments POC-GLUCOSE METER (BEAKER) 92 mg/dL 70-110 : TESTED AT [address] (test grxp=2094) [facility], [address]: Cosmetic Sales Advisor/Contact Lens Molder [phone] for SHEY MOJICAE POCT-GLUCOSE [id number] 08:53:00 Test Item Value Reference Range Comments POC-GLUCOSE METER (BEAKER) 159 mg/dL 70-110 : TESTED AT [address] (test qlqn=9708) [facility], [address]: Cosmetic Sales Advisor/Contact Lens Molder [id number] for GUY, EMMA POCT-GLUCOSE [id number] 06:58:00 Test Item Value Reference Range Comments POC-GLUCOSE METER (BEAKER) 132 mg/dL 70-110 : TESTED AT [address] (test ecbn=3318) [facility], [address]: Cosmetic Sales Advisor/Contact Lens Molder [id number] for MARY LOU CHRISTIANSEN BASIC METABOLIC [id number] 06:05:00 Test Item Value Reference Range Comments SODIUM (BEAKER) (test 140 meq/L 136-145 phei=488) POTASSIUM (BEAKER) (test 3.3 meq/L 3.5-5.1 fuca=633) CHLORIDE (BEAKER) (test 110 meq/L 98-107 jxgz=404) CO2 (BEAKER) (test 26 meq/L 22-29 ysft=815) BLOOD UREA NITROGEN 7 mg/dL 7-21 (BEAKER) (test xpmb=158) CREATININE (BEAKER) (test 0.74 mg/dL 0.57-1.25 imas=709) GLUCOSE RANDOM (BEAKER) 78 mg/dL 70-105 (test vlbi=661) CALCIUM (BEAKER) (test 7.7 mg/dL 8.4-10.2 blkm=293) EGFR (BEAKER) (test 111 mL/min/1.73 sq m ESTIMATED GFR IS NOT umqa=5767) ACCURATE CREATININE CLEARANCE IN PREDICTING GLOMERULAR FILTRATION RATE. ESTIMATED GFR IS NOT APPLICABLE FOR DIALYSIS PATIENTS. Specimen moderately [id number] 06:04:00 Test Item Value Reference Range Comments MAGNESIUM (BEAKER) (test nkld=973) 1.5 mg/dL 1.6-2.6 POCT-GLUCOSE [id number] 01:19:00 Test Item Value Reference Range Comments POC-GLUCOSE METER (BEAKER) 125 mg/dL 70-110 : TESTED AT [facility] [address] [facility] (test izwp=9845) [facility], [address]: Cosmetic Sales Advisor/Contact Lens Molder [id number] for MARY LOU CHRISTIANSEN POCT-GLUCOSE [id number] 13:41:00 Test Item Value Reference Range Comments POC-GLUCOSE METER (BEAKER) 183 mg/dL 70-110 : TESTED AT [place] [id number] [facility] (test nmbb=3363) [facility], [address]: Cosmetic Sales Advisor/Contact Lens Molder [phone] for ALICIA DELATORRE COMPREHENSIVE METABOLIC [id number] 05:42:00 Test Item Value Reference Range Comments TOTAL PROTEIN (BEAKER) 5.4 gm/dL 6.0-8.3 (test htjk=987) ALBUMIN (BEAKER) (test 1.5 g/dL 3.5-5.0 cfre=2777) ALKALINE PHOSPHATASE 188 U/L 40-150 (BEAKER) (test vgua=686) BILIRUBIN TOTAL (BEAKER) 5.3 mg/dL 0.2-1.2 (test brxk=102) SODIUM (BEAKER) (test 137 meq/L 136-145 jgxw=087) POTASSIUM (BEAKER) (test 3.5 meq/L 3.5-5.1 ktzp=098) CHLORIDE (BEAKER) (test 110 meq/L 98-107 jpyb=827) CO2 (BEAKER) (test 25 meq/L 22-29 xpwm=029) BLOOD UREA NITROGEN 7 mg/dL 7-21 (BEAKER) (test jlhl=733) CREATININE (BEAKER) (test 0.74 mg/dL 0.57-1.25 jsrv=496) GLUCOSE RANDOM (BEAKER) 88 mg/dL 70-105 (test wtxw=336) CALCIUM (BEAKER) (test 7.7 mg/dL 8.4-10.2 qixm=628) AST (SGOT) (BEAKER) (test 44 U/L 5-34 hgqi=973) ALT (SGPT) (BEAKER) (test 38 U/L 6-55 bmwm=931) EGFR (BEAKER) (test 111 mL/min/1.73 sq ESTIMATED GFR IS NOT wpoj=1112) m ACCURATE CREATININE CLEARANCE IN PREDICTING GLOMERULAR FILTRATION RATE. ESTIMATED GFR IS NOT APPLICABLE FOR DIALYSIS PATIENTS. Check Serum Phosphorus level 4 hours after IV phosphorus replacement or 8 hours after PO replacementcompleted.Specimen moderately [id number] 05 :41:00 Test Item Value Reference Range Comments PHOSPHORUS (BEAKER) (test avcm=517) 3.0 mg/dL 2.3-4.7 Check Serum Phosphorus level 4 hours after IV phosphorus replacement or 8 hours after PO replacementcompleted.[id number] 05:41:00 Test Item Value Reference Range Comments MAGNESIUM (BEAKER) (test nzzk=623) 1.5 mg/dL 1.6-2.6 Check Serum Phosphorus level 4 hours after IV phosphorus replacement or 8 hours after PO replacementcompleted.CBC (HEMOGRAM ONLY)[id number] 05:31:00 Test Item Value Reference Range Comments WHITE BLOOD CELL COUNT (BEAKER) (test eiaq=115) 4.1 K/ L 3.5-10.5 RED BLOOD CELL COUNT (BEAKER) (test hjjo=088) 2.42 M/ L 4.63-6.08 HEMOGLOBIN (BEAKER) (test riny=258) 8.0 GM/DL 13.7-17.5 HEMATOCRIT (BEAKER) (test jmre=395) 26.1 % 40.1-51.0 MEAN CORPUSCULAR VOLUME (BEAKER) (test omaf=230) 107.9 fL 79.0-92.2 MEAN CORPUSCULAR HEMOGLOBIN (BEAKER) (test 33.1 pg 25.7-32.2 wxqv=282) MEAN CORPUSCULAR HEMOGLOBIN CONC (BEAKER) (test 30.7 GM/DL 32.3-36.5 rejh=588) RED CELL DISTRIBUTION WIDTH (BEAKER) (test 26.1 % 11.6-14.4 xaie=171) PLATELET COUNT (BEAKER) (test pvbj=185) 44 K/CU MM 150-450 MEAN PLATELET VOLUME (BEAKER) (test aofb=062) 11.9 fL 9.4-12.4 NUCLEATED RED BLOOD CELLS (BEAKER) (test 1 /100 WBC 0-0 zacf=901) POCT-GLUCOSE [id number] 01:17:00 Test Item Value Reference Range Comments POC-GLUCOSE METER (BEAKER) 139 mg/dL 70-110 : TESTED AT [address] (test jcvw=7235) [facility], [address]: Cosmetic Sales Advisor/Contact Lens Molder [phone] for CATHRYN YOUNGER POCT-GLUCOSE [id number] 00:08:00 Test Item Value Reference Range Comments POC-GLUCOSE METER (BEAKER) 74 mg/dL 70-110 : TESTED AT [address] (test whzu=2175) [facility], [address]: Cosmetic Sales Advisor/Contact Lens Molder ZC=[phone] for SUZY RIOS POCT-GLUCOSE [id number] 20:16:00 Test Item Value Reference Range Comments POC-GLUCOSE METER (BEAKER) 119 mg/dL 70-110 : TESTED AT [address] (test ryur=1815) [facility], [address]: Cosmetic Sales Advisor/Contact Lens Molder [id number] for CATHRYN YOUNGER POCT-GLUCOSE [id number] 16:53:00 Test Item Value Reference Range Comments POC-GLUCOSE METER (BEAKER) 103 mg/dL 70-110 : TESTED AT [address] (test djty=2769) [facility], [address]: Cosmetic Sales Advisor/Contact Lens Molder [phone] for Queen Snider POCT-GLUCOSE [id number] 10:59:00 Test Item Value Reference Range Comments POC-GLUCOSE METER (BEAKER) 81 mg/dL 70-110 : TESTED AT [address] (test jfpr=6497) [facility], [address]: Cosmetic Sales Advisor/Contact Lens Molder [phone] for Queen Snider MISCELLANEOUS LAB [id number] 08:37:00 Test Item Value Reference Range Comments SCAN RESULT (test oauk=[id number]) COMPREHENSIVE METABOLIC [id number] 06:24:00 Test Item Value Reference Range Comments TOTAL PROTEIN (BEAKER) 5.2 gm/dL 6.0-8.3 (test abcb=061) ALBUMIN (BEAKER) (test 1.4 g/dL 3.5-5.0 ddcn=2307) ALKALINE PHOSPHATASE 159 U/L 40-150 (BEAKER) (test ckul=440) BILIRUBIN TOTAL (BEAKER) 4.8 mg/dL 0.2-1.2 (test ndvb=936) SODIUM (BEAKER) (test 138 meq/L 136-145 ujwk=044) POTASSIUM (BEAKER) (test 3.3 meq/L 3.5-5.1 lbax=431) CHLORIDE (BEAKER) (test 110 meq/L 98-107 akln=597) CO2 (BEAKER) (test 28 meq/L 22-29 mihq=828) BLOOD UREA NITROGEN 6 mg/dL 7-21 (BEAKER) (test xjwr=263) CREATININE (BEAKER) (test 0.75 mg/dL 0.57-1.25 tzvq=406) GLUCOSE RANDOM (BEAKER) 107 mg/dL 70-105 (test kqiv=556) CALCIUM (BEAKER) (test 7.6 mg/dL 8.4-10.2 ddse=118) AST (SGOT) (BEAKER) (test 41 U/L 5-34 jmlm=332) ALT (SGPT) (BEAKER) (test 36 U/L 6-55 rssd=852) EGFR (BEAKER) (test 109 mL/min/1.73 sq ESTIMATED GFR IS NOT kbpg=1992) m ACCURATE CREATININE CLEARANCE IN PREDICTING GLOMERULAR FILTRATION RATE. ESTIMATED GFR IS NOT APPLICABLE FOR DIALYSIS PATIENTS. Check Serum Phosphorus level 4 hours after IV phosphorus replacement or 8 hours after PO replacementcompleted.Specimen moderately ictericCBC (HEMOGRAM ONLY)2018 06:22:00 Test Item Value Reference Range Comments WHITE BLOOD CELL COUNT (BEAKER) (test sslk=609) 4.6 K/ L 3.5-10.5 RED BLOOD CELL COUNT (BEAKER) (test xhsu=624) 2.27 M/ L 4.63-6.08 HEMOGLOBIN (BEAKER) (test qyrd=407) 7.5 GM/DL 13.7-17.5 HEMATOCRIT (BEAKER) (test jbww=343) 24.0 % 40.1-51.0 MEAN CORPUSCULAR VOLUME (BEAKER) (test wmys=232) 105.7 fL 79.0-92.2 MEAN CORPUSCULAR HEMOGLOBIN (BEAKER) (test 33.0 pg 25.7-32.2 vsiq=428) MEAN CORPUSCULAR HEMOGLOBIN CONC (BEAKER) (test 31.3 GM/DL 32.3-36.5 czdk=806) RED CELL DISTRIBUTION WIDTH (BEAKER) (test 26.5 % 11.6-14.4 atiz=702) PLATELET COUNT (BEAKER) (test uxpe=172) 37 K/CU MM 150-450 MEAN PLATELET VOLUME (BEAKER) (test htlv=422) 12.1 fL 9.4-12.4 NUCLEATED RED BLOOD CELLS (BEAKER) (test 0 /100 WBC 0-0 yfoc=907) [id number] 06:20:00 Test Item Value Reference Range Comments PHOSPHORUS (BEAKER) (test khez=990) 2.5 mg/dL 2.3-4.7 Check Serum Phosphorus level 4 hours after IV phosphorus replacement or 8 hours after PO replacementcompleted.[id number] 06:20:00 Test Item Value Reference Range Comments MAGNESIUM (BEAKER) (test rfbb=323) 1.3 mg/dL 1.6-2.6 Check Serum Phosphorus level 4 hours after IV phosphorus replacement or 8 hours after PO replacementcompleted.PROTHROMBIN TIME/[id number] 06:12:00 Test Item Value Reference Range Comments PROTIME (BEAKER) (test lkbj=203) 29.4 seconds 11.9-14.2 INR (BEAKER) (test hrdl=226) 3.0 <=5.9 Effective 10/09/2018: PT Reference Range ChangeNew: 11.9-14.2 Previous: 11.7- 14.7RECOMMENDED COUMADIN/WARFARIN INR THERAPY RANGESSTANDARD DOSE: 2.0-3.0 Includes: PROPHYLAXIS for venous thrombosis, systemic embolization; TREATMENT for venous thrombosis and/or pulmonary embolus.HIGH RISK: Target INR is2.5-3.5 for patients wiht mechanical heart valves.POCT-GLUCOSE [id number] 00:37:00 Test Item Value Reference Range Comments POC-GLUCOSE METER (BEAKER) 99 mg/dL 70-110 : TESTED AT [facility] [address] [facility] (test aiju=3027) [facility], [address]: Cosmetic Sales Advisor/Contact Lens Molder [id number] for SUZY RIOS POCT-GLUCOSE [id number] 17:20:00 Test Item Value Reference Range Comments POC-GLUCOSE METER (BEAKER) 129 mg/dL 70-110 : TESTED AT [facility] [address] [facility] (test azwz=8603) [facility], [address]: Cosmetic Sales Advisor/Contact Lens Molder [id number] for Queen Snider POCT-GLUCOSE [id number] 12:15:00 Test Item Value Reference Range Comments POC-GLUCOSE METER (BEAKER) 119 mg/dL 70-110 : TESTED AT [facility] [address] [facility] (test zzaj=2382) [facility], [address]: Cosmetic Sales Advisor/Contact Lens Molder ZC=[id number] for Queen Snider COMPREHENSIVE METABOLIC [id number] 07:38:00 Test Item Value Reference Range Comments TOTAL PROTEIN (BEAKER) 5.4 gm/dL 6.0-8.3 (test mesv=597) ALBUMIN (BEAKER) (test 1.5 g/dL 3.5-5.0 rlph=9043) ALKALINE PHOSPHATASE 145 U/L 40-150 (BEAKER) (test aydr=040) BILIRUBIN TOTAL (BEAKER) 5.4 mg/dL 0.2-1.2 (test ibnw=208) SODIUM (BEAKER) (test 141 meq/L 136-145 plel=912) POTASSIUM (BEAKER) (test 3.7 meq/L 3.5-5.1 pfiq=792) CHLORIDE (BEAKER) (test 114 meq/L 98-107 rdok=283) CO2 (BEAKER) (test 26 meq/L 22-29 ngea=136) BLOOD UREA NITROGEN 6 mg/dL 7-21 (BEAKER) (test rnce=396) CREATININE (BEAKER) (test 0.75 mg/dL 0.57-1.25 vcug=872) GLUCOSE RANDOM (BEAKER) 81 mg/dL 70-105 (test wyyp=403) CALCIUM (BEAKER) (test 7.8 mg/dL 8.4-10.2 qjho=489) AST (SGOT) (BEAKER) (test 48 U/L 5-34 sgym=232) ALT (SGPT) (BEAKER) (test 39 U/L 6-55 xgkb=687) EGFR (BEAKER) (test 109 mL/min/1.73 sq ESTIMATED GFR IS NOT ixwr=4645) m ACCURATE CREATININE CLEARANCE IN PREDICTING GLOMERULAR FILTRATION RATE. ESTIMATED GFR IS NOT APPLICABLE FOR DIALYSIS PATIENTS. Specimen moderately ictericHEPATIC FUNCTION [id number] 07:38:00 Test Item Value Reference Range Comments TOTAL PROTEIN (BEAKER) (test eetb=289) 5.4 gm/dL 6.0-8.3 ALBUMIN (BEAKER) (test rpsx=5671) 1.5 g/dL 3.5-5.0 BILIRUBIN TOTAL (BEAKER) (test kfod=608) 5.4 mg/dL 0.2-1.2 BILIRUBIN DIRECT (BEAKER) (test muon=946) 2.5 mg/dL 0.1-0.5 ALKALINE PHOSPHATASE (BEAKER) (test gcvt=203) 145 U/L 40-150 AST (SGOT) (BEAKER) (test tzws=947) 48 U/L 5-34 ALT (SGPT) (BEAKER) (test yofj=079) 39 U/L 6-55 Specimen moderately ictericPOCT-GLUCOSE [id number] 07:14:00 Test Item Value Reference Range Comments POC-GLUCOSE METER (BEAKER) 100 mg/dL 70-110 : TESTED AT [facility] [address] [facility] (test qtyv=2599) [facility], [address]: Cosmetic Sales Advisor/Contact Lens Molder JM=[id number] for Queen Snider CALCIUM, [id number] 06:24:00 Test Item Value Reference Range Comments CALCIUM IONIZED (BEAKER) (test sxhk=562) 1.13 mmol/L 1.12-1.27 PH, BLOOD (BEAKER) (test knxw=3293) 7.48 CBC W/PLT COUNT & AUTO [id number] 05:39:00 Test Item Value Reference Range Comments WHITE BLOOD CELL COUNT (BEAKER) (test avrw=489) 5.3 K/ L 3.5-10.5 RED BLOOD CELL COUNT (BEAKER) (test smbe=896) 2.31 M/ L 4.63-6.08 HEMOGLOBIN (BEAKER) (test mpsc=726) 7.7 GM/DL 13.7-17.5 HEMATOCRIT (BEAKER) (test lybm=115) 24.3 % 40.1-51.0 MEAN CORPUSCULAR VOLUME (BEAKER) (test zabl=550) 105.2 fL 79.0-92.2 MEAN CORPUSCULAR HEMOGLOBIN (BEAKER) (test 33.3 pg 25.7-32.2 uole=253) MEAN CORPUSCULAR HEMOGLOBIN CONC (BEAKER) (test 31.7 GM/DL 32.3-36.5 vpwt=527) RED CELL DISTRIBUTION WIDTH (BEAKER) (test 27.9 % 11.6-14.4 yjrz=786) PLATELET COUNT (BEAKER) (test ixey=107) 41 K/CU MM 150-450 MEAN PLATELET VOLUME (BEAKER) (test ixct=946) 12.3 fL 9.4-12.4 NUCLEATED RED BLOOD CELLS (BEAKER) (test 0 /100 WBC 0-0 ejnx=832) NEUTROPHILS RELATIVE PERCENT (BEAKER) (test 72 % diuu=123) LYMPHOCYTES RELATIVE PERCENT (BEAKER) (test 11 % osjz=506) MONOCYTES RELATIVE PERCENT (BEAKER) (test 12 % tgrp=332) EOSINOPHILS RELATIVE PERCENT (BEAKER) (test 4 % tsda=261) BASOPHILS RELATIVE PERCENT (BEAKER) (test 1 % hsug=043) NEUTROPHILS ABSOLUTE COUNT (BEAKER) (test 3.81 K/ L 1.78-5.38 mnlq=508) LYMPHOCYTES ABSOLUTE COUNT (BEAKER) (test 0.58 K/ L 1.32-3.57 udmd=540) MONOCYTES ABSOLUTE COUNT (BEAKER) (test rdvg=386) 0.62 K/ L 0.30-0.82 EOSINOPHILS ABSOLUTE COUNT (BEAKER) (test 0.23 K/ L 0.04-0.54 npak=795) BASOPHILS ABSOLUTE COUNT (BEAKER) (test habk=844) 0.03 K/ L 0.01-0.08 IMMATURE GRANULOCYTES-RELATIVE PERCENT (BEAKER) 1 % 0-1 (test fhav=6086) OCCULT BLOOD, [id number] 05:37:00 Test Item Value Reference Range Comments FECAL OCCULT BLOOD (BEAKER) (test ascy=904) Negative Negative POCT-GLUCOSE [id number] 23:20:00 Test Item Value Reference Range Comments POC-GLUCOSE METER (BEAKER) 121 mg/dL 70-110 : TESTED AT [address] (test qqgz=2513) [facility], [address]: Cosmetic Sales Advisor/Contact Lens Molder GZ=[id number] for ALICIA DELATORRE POCT-GLUCOSE [id number] 16:59:00 Test Item Value Reference Range Comments POC-GLUCOSE METER (BEAKER) 139 mg/dL 70-110 : TESTED AT [address] (test dcjr=1173) [facility], [address]: Cosmetic Sales Advisor/Contact Lens Molder [id number] for NAM TILLEYE POCT-GLUCOSE [id number] 12:42:00 Test Item Value Reference Range Comments POC-GLUCOSE METER (BEAKER) 108 mg/dL 70-110 : TESTED AT [address] (test yidx=1929) [facility], [address]: Cosmetic Sales Advisor/Contact Lens Molder [phone] for ALICIA DELATORRE HEPATIC FUNCTION [id number] 08:27:00 Test Item Value Reference Range Comments TOTAL PROTEIN (BEAKER) (test xahi=128) 5.1 gm/dL 6.0-8.3 ALBUMIN (BEAKER) (test idjq=9516) 1.4 g/dL 3.5-5.0 BILIRUBIN TOTAL (BEAKER) (test ccgq=239) 5.4 mg/dL 0.2-1.2 BILIRUBIN DIRECT (BEAKER) (test mhpj=968) 2.5 mg/dL 0.1-0.5 ALKALINE PHOSPHATASE (BEAKER) (test mzex=633) 138 U/L 40-150 AST (SGOT) (BEAKER) (test renf=261) 48 U/L 5-34 ALT (SGPT) (BEAKER) (test nbrz=761) 39 U/L 6-55 Specimen moderately ictericPOCT-GLUCOSE [id number] 06:58:00 Test Item Value Reference Range Comments POC-GLUCOSE METER (BEAKER) 82 mg/dL 70-110 : TESTED AT [address] (test mbnx=4807) [facility], [address]: Cosmetic Sales Advisor/Contact Lens Molder [phone] for MARY LOU CHRISTIANSEN BASIC METABOLIC [id number] 06:32:00 Test Item Value Reference Range Comments SODIUM (BEAKER) (test 140 meq/L 136-145 jthg=277) POTASSIUM (BEAKER) (test 3.6 meq/L 3.5-5.1 byqz=101) CHLORIDE (BEAKER) (test 114 meq/L 98-107 uajp=822) CO2 (BEAKER) (test 24 meq/L 22-29 ekpu=819) BLOOD UREA NITROGEN 8 mg/dL 7-21 (BEAKER) (test tioh=411) CREATININE (BEAKER) (test 0.76 mg/dL 0.57-1.25 tsye=163) GLUCOSE RANDOM (BEAKER) 105 mg/dL 70-105 (test dvow=817) CALCIUM (BEAKER) (test 7.7 mg/dL 8.4-10.2 awqk=181) EGFR (BEAKER) (test 108 mL/min/1.73 sq m ESTIMATED GFR IS NOT bjtu=5285) ACCURATE CREATININE CLEARANCE IN PREDICTING GLOMERULAR FILTRATION RATE. ESTIMATED GFR IS NOT APPLICABLE FOR DIALYSIS PATIENTS. Specimen moderately ictericCBC W/PLT COUNT & AUTO [id number] 05: 49:00 Test Item Value Reference Range Comments WHITE BLOOD CELL COUNT (BEAKER) (test bwkf=627) 5.6 K/ L 3.5-10.5 RED BLOOD CELL COUNT (BEAKER) (test elmt=035) 2.26 M/ L 4.63-6.08 HEMOGLOBIN (BEAKER) (test vjok=617) 7.4 GM/DL 13.7-17.5 HEMATOCRIT (BEAKER) (test jlrd=689) 23.6 % 40.1-51.0 MEAN CORPUSCULAR VOLUME (BEAKER) (test xint=792) 104.4 fL 79.0-92.2 MEAN CORPUSCULAR HEMOGLOBIN (BEAKER) (test 32.7 pg 25.7-32.2 yvpy=971) MEAN CORPUSCULAR HEMOGLOBIN CONC (BEAKER) (test 31.4 GM/DL 32.3-36.5 ewhu=868) RED CELL DISTRIBUTION WIDTH (BEAKER) (test 28.6 % 11.6-14.4 yepj=540) PLATELET COUNT (BEAKER) (test dwxx=271) 31 K/CU MM 150-450 MEAN PLATELET VOLUME (BEAKER) (test hhrm=823) 12.6 fL 9.4-12.4 NUCLEATED RED BLOOD CELLS (BEAKER) (test 0 /100 WBC 0-0 talz=395) NEUTROPHILS RELATIVE PERCENT (BEAKER) (test 77 % xkxs=372) LYMPHOCYTES RELATIVE PERCENT (BEAKER) (test 11 % noid=935) MONOCYTES RELATIVE PERCENT (BEAKER) (test 10 % kkzb=764) EOSINOPHILS RELATIVE PERCENT (BEAKER) (test 2 % mzsj=003) BASOPHILS RELATIVE PERCENT (BEAKER) (test 0 % tlys=820) NEUTROPHILS ABSOLUTE COUNT (BEAKER) (test 4.28 K/ L 1.78-5.38 vjww=471) LYMPHOCYTES ABSOLUTE COUNT (BEAKER) (test 0.61 K/ L 1.32-3.57 nqev=900) MONOCYTES ABSOLUTE COUNT (BEAKER) (test uqhw=656) 0.54 K/ L 0.30-0.82 EOSINOPHILS ABSOLUTE COUNT (BEAKER) (test 0.13 K/ L 0.04-0.54 dtyp=166) BASOPHILS ABSOLUTE COUNT (BEAKER) (test qvan=729) 0.01 K/ L 0.01-0.08 IMMATURE GRANULOCYTES-RELATIVE PERCENT (BEAKER) 1 % 0-1 (test kiao=5989) CALCIUM, [id number] 05:29:00 Test Item Value Reference Range Comments CALCIUM IONIZED (BEAKER) (test cbll=466) 1.17 mmol/L 1.12-1.27 PH, BLOOD (BEAKER) (test mxvt=3933) 7.40 POCT-GLUCOSE [id number] 01:00:00 Test Item Value Reference Range Comments POC-GLUCOSE METER (BEAKER) 217 mg/dL 70-110 : TESTED AT [address] (test hfzb=6336) [place] [address]: Cosmetic Sales Advisor/Contact Lens Molder [phone] for MARY LOU CHRISTIANSEN OCCULT BLOOD, [id number] 21:47:00 Test Item Value Reference Range Comments FECAL OCCULT BLOOD (BEAKER) (test tdmf=856) Negative Negative POCT-GLUCOSE [id number] 12:02:00 Test Item Value Reference Range Comments POC-GLUCOSE METER (BEAKER) 146 mg/dL 70-110 : TESTED AT [place] [id number] [facility] (test nwkn=6958) [facility], [facility]: Cosmetic Sales Advisor/Contact Lens Molder [phone] for Ileana Branch POCT-GLUCOSE [id number] 08:09:00 Test Item Value Reference Range Comments POC-GLUCOSE METER (BEAKER) 82 mg/dL 70-110 : TESTED AT [facility] [address] (test wspf=6481) [place], [address]: Cosmetic Sales Advisor/Contact Lens Molder [phone] for Ileana Branch BASIC METABOLIC [id number] 06:51:00 Test Item Value Reference Range Comments SODIUM (BEAKER) (test 138 meq/L 136-145 xwzl=743) POTASSIUM (BEAKER) (test 3.3 meq/L 3.5-5.1 cebk=763) CHLORIDE (BEAKER) (test 113 meq/L 98-107 fhmk=321) CO2 (BEAKER) (test 22 meq/L 22-29 jdmw=838) BLOOD UREA NITROGEN 8 mg/dL 7-21 (BEAKER) (test zkxg=017) CREATININE (BEAKER) (test 0.87 mg/dL 0.57-1.25 vtpn=236) GLUCOSE RANDOM (BEAKER) 87 mg/dL 70-105 (test qhct=361) CALCIUM (BEAKER) (test 7.8 mg/dL 8.4-10.2 ieen=901) EGFR (BEAKER) (test 92 mL/min/1.73 sq m ESTIMATED GFR IS NOT enqd=9623) ACCURATE CREATININE CLEARANCE IN PREDICTING GLOMERULAR FILTRATION RATE. ESTIMATED GFR IS NOT APPLICABLE FOR DIALYSIS PATIENTS. Specimen moderately ictericHEPATIC FUNCTION [id number] 06:49:00 Test Item Value Reference Range Comments TOTAL PROTEIN (BEAKER) (test keew=159) 5.8 gm/dL 6.0-8.3 ALBUMIN (BEAKER) (test tktl=6625) 1.6 g/dL 3.5-5.0 BILIRUBIN TOTAL (BEAKER) (test qkgp=651) 5.6 mg/dL 0.2-1.2 BILIRUBIN DIRECT (BEAKER) (test dosv=882) 2.7 mg/dL 0.1-0.5 ALKALINE PHOSPHATASE (BEAKER) (test hnlg=991) 182 U/L 40-150 AST (SGOT) (BEAKER) (test uwfj=082) 60 U/L 5-34 ALT (SGPT) (BEAKER) (test xwvw=620) 45 U/L 6-55 Specimen moderately ictericCALCIUM, [id number] 06:27:00 Test Item Value Reference Range Comments CALCIUM IONIZED (BEAKER) (test acfc=624) 1.14 mmol/L 1.12-1.27 PH, BLOOD (BEAKER) (test khfx=0640) 7.47 CBC W/PLT COUNT & AUTO [id number] 06:21:00 Test Item Value Reference Range Comments WHITE BLOOD CELL COUNT (BEAKER) (test eblb=483) 8.9 K/ L 3.5-10.5 RED BLOOD CELL COUNT (BEAKER) (test cmdx=487) 2.62 M/ L 4.63-6.08 HEMOGLOBIN (BEAKER) (test jecw=129) 8.7 GM/DL 13.7-17.5 HEMATOCRIT (BEAKER) (test lvbq=797) 27.2 % 40.1-51.0 MEAN CORPUSCULAR VOLUME (BEAKER) (test hbbi=995) 103.8 fL 79.0-92.2 MEAN CORPUSCULAR HEMOGLOBIN (BEAKER) (test 33.2 pg 25.7-32.2 shui=657) MEAN CORPUSCULAR HEMOGLOBIN CONC (BEAKER) (test 32.0 GM/DL 32.3-36.5 ussg=462) RED CELL DISTRIBUTION WIDTH (BEAKER) (test 28.1 % 11.6-14.4 ovvr=747) PLATELET COUNT (BEAKER) (test azjj=068) 42 K/CU MM 150-450 MEAN PLATELET VOLUME (BEAKER) (test icpi=329) 12.0 fL 9.4-12.4 NUCLEATED RED BLOOD CELLS (BEAKER) (test 0 /100 WBC 0-0 sgbm=278) NEUTROPHILS RELATIVE PERCENT (BEAKER) (test 82 % wtnz=096) LYMPHOCYTES RELATIVE PERCENT (BEAKER) (test 7 % kuty=306) MONOCYTES RELATIVE PERCENT (BEAKER) (test 8 % moxi=299) EOSINOPHILS RELATIVE PERCENT (BEAKER) (test 3 % ytnt=164) BASOPHILS RELATIVE PERCENT (BEAKER) (test 0 % bldv=145) NEUTROPHILS ABSOLUTE COUNT (BEAKER) (test 7.29 K/ L 1.78-5.38 tsoe=775) LYMPHOCYTES ABSOLUTE COUNT (BEAKER) (test 0.59 K/ L 1.32-3.57 xmgr=163) MONOCYTES ABSOLUTE COUNT (BEAKER) (test jfay=221) 0.69 K/ L 0.30-0.82 EOSINOPHILS ABSOLUTE COUNT (BEAKER) (test 0.24 K/ L 0.04-0.54 okoa=386) BASOPHILS ABSOLUTE COUNT (BEAKER) (test qxlb=921) 0.02 K/ L 0.01-0.08 IMMATURE GRANULOCYTES-RELATIVE PERCENT (BEAKER) 1 % 0-1 (test cbxt=3682) POCT-GLUCOSE [id number] 21:43:00 Test Item Value Reference Range Comments POC-GLUCOSE METER (BEAKER) 147 mg/dL 70-110 : TESTED AT [address] (test qipi=2245) [facility], [address]: Cosmetic Sales Advisor/Contact Lens Molder [phone] for MOLLY RUIZ POCT-GLUCOSE [id number] 17:30:00 Test Item Value Reference Range Comments POC-GLUCOSE METER (BEAKER) 154 mg/dL 70-110 : TESTED AT [address] (test eabn=5977) [facility], [address]: Cosmetic Sales Advisor/Contact Lens Molder [phone] for KAYE MASOUDJOSHKaushal POCT-GLUCOSE [id number] 12:03:00 Test Item Value Reference Range Comments POC-GLUCOSE METER (BEAKER) 157 mg/dL 70-110 : TESTED AT [address] (test xnsw=5472) [facility], [address]: Cosmetic Sales Advisor/Contact Lens Molder ZU=[phone] for CRISS TOVARLA CBC W/PLT COUNT & AUTO [id number] 10:18:00 Test Item Value Reference Range Comments WHITE BLOOD CELL COUNT (BEAKER) (test dbtb=800) 6.3 K/ L 3.5-10.5 RED BLOOD CELL COUNT (BEAKER) (test loyi=604) 1.96 M/ L 4.63-6.08 HEMOGLOBIN (BEAKER) (test yrkr=458) 6.5 GM/DL 13.7-17.5 HEMATOCRIT (BEAKER) (test auvx=513) 21.0 % 40.1-51.0 MEAN CORPUSCULAR VOLUME (BEAKER) (test pqkr=707) 107.1 fL 79.0-92.2 MEAN CORPUSCULAR HEMOGLOBIN (BEAKER) (test 33.2 pg 25.7-32.2 zbhg=152) MEAN CORPUSCULAR HEMOGLOBIN CONC (BEAKER) (test 31.0 GM/DL 32.3-36.5 cynk=912) RED CELL DISTRIBUTION WIDTH (BEAKER) (test 29.1 % 11.6-14.4 zpoh=664) PLATELET COUNT (BEAKER) (test ndwd=194) 30 K/CU MM 150-450 MEAN PLATELET VOLUME (BEAKER) (test ornx=577) 11.5 fL 9.4-12.4 NUCLEATED RED BLOOD CELLS (BEAKER) (test 0 /100 WBC 0-0 zqkh=080) NEUTROPHILS RELATIVE PERCENT (BEAKER) (test 72 % wtpr=389) LYMPHOCYTES RELATIVE PERCENT (BEAKER) (test 15 % fwmy=764) MONOCYTES RELATIVE PERCENT (BEAKER) (test 8 % ujha=158) EOSINOPHILS RELATIVE PERCENT (BEAKER) (test 5 % ynja=819) BASOPHILS RELATIVE PERCENT (BEAKER) (test 0 % hktq=372) NEUTROPHILS ABSOLUTE COUNT (BEAKER) (test 4.52 K/ L 1.78-5.38 adsg=449) LYMPHOCYTES ABSOLUTE COUNT (BEAKER) (test 0.94 K/ L 1.32-3.57 hayw=161) MONOCYTES ABSOLUTE COUNT (BEAKER) (test whsq=654) 0.50 K/ L 0.30-0.82 EOSINOPHILS ABSOLUTE COUNT (BEAKER) (test 0.29 K/ L 0.04-0.54 fclo=258) BASOPHILS ABSOLUTE COUNT (BEAKER) (test pykq=509) 0.01 K/ L 0.01-0.08 IMMATURE GRANULOCYTES-RELATIVE PERCENT (BEAKER) 1 % 0-1 (test qzlk=9785) POCT-GLUCOSE [id number] 08:39:00 Test Item Value Reference Range Comments POC-GLUCOSE METER (BEAKER) 98 mg/dL 70-110 : TESTED AT [address] (test wchr=5316) [facility], [address]: Cosmetic Sales Advisor/Contact Lens Molder [phone] for ROBYN CRYSTAL POCT-GLUCOSE [id number] 06:43:00 Test Item Value Reference Range Comments POC-GLUCOSE METER (BEAKER) 132 mg/dL 70-110 : TESTED AT [address] (test gyjr=0933) [facility], [address]: Cosmetic Sales Advisor/Contact Lens Molder GQ=[phone] for SUZY RIOS CALCIUM, [id number] 06:42:00 Test Item Value Reference Range Comments CALCIUM IONIZED (BEAKER) (test dfut=595) 1.22 mmol/L 1.12-1.27 PH, BLOOD (BEAKER) (test ahyz=3195) 7.42 BASIC METABOLIC [id number] 06:04:00 Test Item Value Reference Range Comments SODIUM (BEAKER) (test 141 meq/L 136-145 xgno=874) POTASSIUM (BEAKER) (test 3.7 meq/L 3.5-5.1 cykz=843) CHLORIDE (BEAKER) (test 119 meq/L 98-107 yemy=113) CO2 (BEAKER) (test 25 meq/L 22-29 gzsc=432) BLOOD UREA NITROGEN 9 mg/dL 7-21 (BEAKER) (test mtun=370) CREATININE (BEAKER) (test 0.74 mg/dL 0.57-1.25 ceuj=628) GLUCOSE RANDOM (BEAKER) 72 mg/dL 70-105 (test mhqu=930) CALCIUM (BEAKER) (test 7.8 mg/dL 8.4-10.2 gfeq=834) EGFR (BEAKER) (test 111 mL/min/1.73 sq m ESTIMATED GFR IS NOT cioe=6533) ACCURATE CREATININE CLEARANCE IN PREDICTING GLOMERULAR FILTRATION RATE. ESTIMATED GFR IS NOT APPLICABLE FOR DIALYSIS PATIENTS. Specimen moderately [id number] 05:51:00 Test Item Value Reference Range Comments PHOSPHORUS (BEAKER) (test ewkx=520) 2.6 mg/dL 2.3-4.7 [id number] 05:51:00 Test Item Value Reference Range Comments MAGNESIUM (BEAKER) (test mlvt=735) 1.6 mg/dL 1.6-2.6 CBC W/PLT COUNT & AUTO [id number] 05:41:00 Test Item Value Reference Range Comments WHITE BLOOD CELL COUNT (BEAKER) (test hemm=904) 6.0 K/ L 3.5-10.5 RED BLOOD CELL COUNT (BEAKER) (test nkpt=536) 2.05 M/ L 4.63-6.08 HEMOGLOBIN (BEAKER) (test tony=440) 6.7 GM/DL 13.7-17.5 HEMATOCRIT (BEAKER) (test qbfw=519) 21.7 % 40.1-51.0 MEAN CORPUSCULAR VOLUME (BEAKER) (test cfom=815) 105.9 fL 79.0-92.2 MEAN CORPUSCULAR HEMOGLOBIN (BEAKER) (test 32.7 pg 25.7-32.2 mmxd=777) MEAN CORPUSCULAR HEMOGLOBIN CONC (BEAKER) (test 30.9 GM/DL 32.3-36.5 akkj=500) RED CELL DISTRIBUTION WIDTH (BEAKER) (test 28.5 % 11.6-14.4 szan=251) PLATELET COUNT (BEAKER) (test iwyu=422) 33 K/CU MM 150-450 MEAN PLATELET VOLUME (BEAKER) (test zabe=285) 12.0 fL 9.4-12.4 NUCLEATED RED BLOOD CELLS (BEAKER) (test 0 /100 WBC 0-0 cntw=993) NEUTROPHILS RELATIVE PERCENT (BEAKER) (test 73 % jozi=717) LYMPHOCYTES RELATIVE PERCENT (BEAKER) (test 12 % iqqd=504) MONOCYTES RELATIVE PERCENT (BEAKER) (test 10 % drjn=912) EOSINOPHILS RELATIVE PERCENT (BEAKER) (test 4 % jzbv=472) BASOPHILS RELATIVE PERCENT (BEAKER) (test 0 % paws=925) NEUTROPHILS ABSOLUTE COUNT (BEAKER) (test 4.36 K/ L 1.78-5.38 ewqt=601) LYMPHOCYTES ABSOLUTE COUNT (BEAKER) (test 0.72 K/ L 1.32-3.57 vlxl=279) MONOCYTES ABSOLUTE COUNT (BEAKER) (test pdem=352) 0.60 K/ L 0.30-0.82 EOSINOPHILS ABSOLUTE COUNT (BEAKER) (test 0.24 K/ L 0.04-0.54 zgep=845) BASOPHILS ABSOLUTE COUNT (BEAKER) (test katg=973) 0.02 K/ L 0.01-0.08 IMMATURE GRANULOCYTES-RELATIVE PERCENT (BEAKER) 1 % 0-1 (test scao=7322) POCT-GLUCOSE [id number] 01:02:00 Test Item Value Reference Range Comments POC-GLUCOSE METER (BEAKER) 108 mg/dL 70-110 : TESTED AT [facility] [address] [facility] (test ljoa=8834) [facility], [address]: Cosmetic Sales Advisor/Contact Lens Molder [phone] for SUZY RIOS POCT-GLUCOSE [id number] 17:20:00 Test Item Value Reference Range Comments POC-GLUCOSE METER (BEAKER) 81 mg/dL 70-110 : TESTED AT [address] (test mvgw=2744) [facility], [address]: Cosmetic Sales Advisor/Contact Lens Molder [phone] for ALICIA DELATORRE POCT-GLUCOSE [id number] 08:18:00 Test Item Value Reference Range Comments POC-GLUCOSE METER (BEAKER) 91 mg/dL 70-110 : TESTED AT [address] (test gzak=7399) [facility], [address]: Cosmetic Sales Advisor/Contact Lens Molder [phone] for LOLA GORDON POCT-GLUCOSE [id number] 06:09:00 Test Item Value Reference Range Comments POC-GLUCOSE METER (BEAKER) 76 mg/dL 70-110 : TESTED AT [address] (test mpqr=5111) [facility], [address]: Cosmetic Sales Advisor/Contact Lens Molder QQ=[phone] for SUZY RIOS CALCIUM, [id number] 05:47:00 Test Item Value Reference Range Comments CALCIUM IONIZED (BEAKER) (test hltz=976) 1.23 mmol/L 1.12-1.27 PH, BLOOD (BEAKER) (test wgta=8052) 7.45 CBC W/PLT COUNT & AUTO [id number] 05:04:00 Test Item Value Reference Range Comments WHITE BLOOD CELL COUNT (BEAKER) (test wxos=295) 7.3 K/ L 3.5-10.5 RED BLOOD CELL COUNT (BEAKER) (test vmjt=439) 2.19 M/ L 4.63-6.08 HEMOGLOBIN (BEAKER) (test zjki=423) 7.2 GM/DL 13.7-17.5 HEMATOCRIT (BEAKER) (test lxqh=201) 23.0 % 40.1-51.0 MEAN CORPUSCULAR VOLUME (BEAKER) (test qfhf=371) 105.0 fL 79.0-92.2 MEAN CORPUSCULAR HEMOGLOBIN (BEAKER) (test 32.9 pg 25.7-32.2 mufd=663) MEAN CORPUSCULAR HEMOGLOBIN CONC (BEAKER) (test 31.3 GM/DL 32.3-36.5 grgd=108) RED CELL DISTRIBUTION WIDTH (BEAKER) (test 28.0 % 11.6-14.4 mwed=451) PLATELET COUNT (BEAKER) (test vrxl=545) 32 K/CU MM 150-450 MEAN PLATELET VOLUME (BEAKER) (test licp=849) 11.3 fL 9.4-12.4 NUCLEATED RED BLOOD CELLS (BEAKER) (test 0 /100 WBC 0-0 kzek=123) NEUTROPHILS RELATIVE PERCENT (BEAKER) (test 70 % yynl=749) LYMPHOCYTES RELATIVE PERCENT (BEAKER) (test 16 % eldf=770) MONOCYTES RELATIVE PERCENT (BEAKER) (test 9 % ydhw=533) EOSINOPHILS RELATIVE PERCENT (BEAKER) (test 4 % pjuz=637) BASOPHILS RELATIVE PERCENT (BEAKER) (test 0 % rivd=384) NEUTROPHILS ABSOLUTE COUNT (BEAKER) (test 5.10 K/ L 1.78-5.38 mibl=379) LYMPHOCYTES ABSOLUTE COUNT (BEAKER) (test 1.19 K/ L 1.32-3.57 boqh=693) MONOCYTES ABSOLUTE COUNT (BEAKER) (test bclc=073) 0.65 K/ L 0.30-0.82 EOSINOPHILS ABSOLUTE COUNT (BEAKER) (test 0.27 K/ L 0.04-0.54 tznc=050) BASOPHILS ABSOLUTE COUNT (BEAKER) (test zjgc=781) 0.02 K/ L 0.01-0.08 IMMATURE GRANULOCYTES-RELATIVE PERCENT (BEAKER) 1 % 0-1 (test nijc=6283) [id number] 05:03:00 Test Item Value Reference Range Comments PHOSPHORUS (BEAKER) (test vovk=664) 2.3 mg/dL 2.3-4.7 [id number] 05:03:00 Test Item Value Reference Range Comments MAGNESIUM (BEAKER) (test atyw=456) 1.7 mg/dL 1.6-2.6 BASIC METABOLIC [id number] 05:03:00 Test Item Value Reference Range Comments SODIUM (BEAKER) (test 145 meq/L 136-145 qvco=606) POTASSIUM (BEAKER) (test 3.1 meq/L 3.5-5.1 ynoq=246) CHLORIDE (BEAKER) (test 120 meq/L 98-107 txha=933) CO2 (BEAKER) (test 24 meq/L 22-29 hnwb=704) BLOOD UREA NITROGEN 10 mg/dL 7-21 (BEAKER) (test lwak=695) CREATININE (BEAKER) (test 0.76 mg/dL 0.57-1.25 zkwd=521) GLUCOSE RANDOM (BEAKER) 82 mg/dL 70-105 (test ddlh=381) CALCIUM (BEAKER) (test 8.0 mg/dL 8.4-10.2 tsen=539) EGFR (BEAKER) (test 108 mL/min/1.73 sq m ESTIMATED GFR IS NOT cded=1051) ACCURATE CREATININE CLEARANCE IN PREDICTING GLOMERULAR FILTRATION RATE. ESTIMATED GFR IS NOT APPLICABLE FOR DIALYSIS PATIENTS. Specimen moderately ictericPOCT-GLUCOSE [id number] 00:15:00 Test Item Value Reference Range Comments POC-GLUCOSE METER (BEAKER) 71 mg/dL 70-110 : Notified RN/MD: TESTED AT (test pvkm=4779) [address], [address]: Cosmetic Sales Advisor/Contact Lens Molder [id number] for SUZY RIOS BLOOD [id number] 19:01:00 Test Item Value Reference Range Comments CULTURE (BEAKER) (test aybz=4782) No growth in 5 days BLOOD [id number] 19:01:00 Test Item Value Reference Range Comments CULTURE (BEAKER) (test elwc=5338) No growth in 5 days POCT-GLUCOSE [id number] 15:05:00 Test Item Value Reference Range Comments POC-GLUCOSE METER (BEAKER) 139 mg/dL 70-110 : TESTED AT [address] (test sadu=7586) [facility], [address]: Cosmetic Sales Advisor/Contact Lens Molder VY=[phone] for DELATORRE, ALICIA POCT-GLUCOSE [id number] 14:29:00 Test Item Value Reference Range Comments POC-GLUCOSE METER (BEAKER) 109 mg/dL 70-110 : TESTED AT [address] (test rtdn=0698) [facility], [address]: Cosmetic Sales Advisor/Contact Lens Molder [phone] for GENE JARQUIN POCT-GLUCOSE [id number] 13:54:00 Test Item Value Reference Range Comments POC-GLUCOSE METER (BEAKER) 117 mg/dL 70-110 : TESTED AT [address] (test cmyl=2135) [facility], [address]: Cosmetic Sales Advisor/Contact Lens Molder [phone] for ALICIA DELATORRE BASIC METABOLIC [id number] 06:57:00 Test Item Value Reference Range Comments SODIUM (BEAKER) (test 146 meq/L 136-145 jcqr=756) POTASSIUM (BEAKER) (test 2.9 meq/L 3.5-5.1 yvjg=788) CHLORIDE (BEAKER) (test 122 meq/L 98-107 nisc=484) CO2 (BEAKER) (test 25 meq/L 22-29 amqt=598) BLOOD UREA NITROGEN 12 mg/dL 7-21 (BEAKER) (test eczj=879) CREATININE (BEAKER) (test 0.75 mg/dL 0.57-1.25 qoqi=414) GLUCOSE RANDOM (BEAKER) 113 mg/dL 70-105 (test uwjw=513) CALCIUM (BEAKER) (test 8.2 mg/dL 8.4-10.2 wzkq=772) EGFR (BEAKER) (test 109 mL/min/1.73 sq m ESTIMATED GFR IS NOT ianz=7176) ACCURATE CREATININE CLEARANCE IN PREDICTING GLOMERULAR FILTRATION RATE. ESTIMATED GFR IS NOT APPLICABLE FOR DIALYSIS PATIENTS. Specimen moderately [id number] 06:52:00 Test Item Value Reference Range Comments PHOSPHORUS (BEAKER) (test eorg=149) 2.7 mg/dL 2.3-4.7 [id number] 06:52:00 Test Item Value Reference Range Comments MAGNESIUM (BEAKER) (test eput=669) 1.7 mg/dL 1.6-2.6 CBC W/PLT COUNT & AUTO [id number] 06:44:00 Test Item Value Reference Range Comments WHITE BLOOD CELL COUNT (BEAKER) (test tnww=380) 7.1 K/ L 3.5-10.5 RED BLOOD CELL COUNT (BEAKER) (test fyhz=223) 2.23 M/ L 4.63-6.08 HEMOGLOBIN (BEAKER) (test cetp=382) 7.3 GM/DL 13.7-17.5 HEMATOCRIT (BEAKER) (test kgvn=983) 23.1 % 40.1-51.0 MEAN CORPUSCULAR VOLUME (BEAKER) (test pjbv=739) 103.6 fL 79.0-92.2 MEAN CORPUSCULAR HEMOGLOBIN (BEAKER) (test 32.7 pg 25.7-32.2 pnmq=587) MEAN CORPUSCULAR HEMOGLOBIN CONC (BEAKER) (test 31.6 GM/DL 32.3-36.5 estb=865) RED CELL DISTRIBUTION WIDTH (BEAKER) (test 27.9 % 11.6-14.4 cifa=197) PLATELET COUNT (BEAKER) (test gyxu=960) 31 K/CU MM 150-450 MEAN PLATELET VOLUME (BEAKER) (test eipe=942) 10.8 fL 9.4-12.4 NUCLEATED RED BLOOD CELLS (BEAKER) (test 0 /100 WBC 0-0 hseg=114) NEUTROPHILS RELATIVE PERCENT (BEAKER) (test 64 % scbp=825) LYMPHOCYTES RELATIVE PERCENT (BEAKER) (test 22 % astm=377) MONOCYTES RELATIVE PERCENT (BEAKER) (test 9 % ntnc=821) EOSINOPHILS RELATIVE PERCENT (BEAKER) (test 4 % urwa=621) BASOPHILS RELATIVE PERCENT (BEAKER) (test 0 % ryfb=114) NEUTROPHILS ABSOLUTE COUNT (BEAKER) (test 4.54 K/ L 1.78-5.38 zedv=008) LYMPHOCYTES ABSOLUTE COUNT (BEAKER) (test 1.58 K/ L 1.32-3.57 rltb=825) MONOCYTES ABSOLUTE COUNT (BEAKER) (test xrih=970) 0.67 K/ L 0.30-0.82 EOSINOPHILS ABSOLUTE COUNT (BEAKER) (test 0.26 K/ L 0.04-0.54 lxia=883) BASOPHILS ABSOLUTE COUNT (BEAKER) (test uxgh=481) 0.01 K/ L 0.01-0.08 IMMATURE GRANULOCYTES-RELATIVE PERCENT (BEAKER) 1 % 0-1 (test ajcj=6723) CALCIUM, [id number] 06:23:00 Test Item Value Reference Range Comments CALCIUM IONIZED (BEAKER) (test ieaf=943) 1.29 mmol/L 1.12-1.27 PH, BLOOD (BEAKER) (test vmma=6458) 7.40 U/S, ABDOMINAL, [id number] 14:18:00Reason for exam:->Hematemesis; Etoh cirrhosis with hx of TIPS, eval TIPS patency and rule out PVTFINAL REPORT TECHNIQUE: Grayscale ultrasound of the abdomen with color Doppler and spectral Doppler ultrasound of the portal/hepatic vasculature. INDICATION: 53-year-old man withhematemesis and alcoholic cirrhosis. COMPARISON: Abdomen and pelvis CTA 03/31/2019. FINDINGS: LIVER: The liver is normal in size with nodular contour and coarsened echotexture, consistent with cirrhosis. No focal liver lesions. HEPATIC VASCULATURE: Main portal vein is prominent and measures 1.4 cm indiameter. Portal veins are patent with normal waveform. Normal hepatopedal flow in the main portal vein. Expected hepatofugal flow in the right and left portal veins in the presence of a TIPS stent. Velocity in the main portal vein is the upper limit of normal and measures 38 cm/s. The hepatic arteries are patent the resistive indices in the proper and left hepatic arteries are within normal limits. Acceleration time in the proper hepatic artery is slightly elevated at 0.08 seconds. Resistive index in the right hepatic artery is slightly elevated at 0.8. The hepatic veins and confluence are patent.The TIPS stent is patent with intrastent velocities which range between 111-150 cm/s. BILIARY:Gallbladder: Sludge in the gallbladder. No gallbladder wall thickening, pericholecystic fluid, or distention. Negative sonographic Chowdhury sign.Common bile duct measures 0.4 cm, within normal limits. No intrahepatic biliary ductal dilatation. PANCREAS: Visualized portions of the pancreas are unremarkable. SPLEEN: The spleen is prominent and measures 13.2 cm. PERITONEUM: Small volume ascites. KIDNEYS: Both kidneys are normal in size. No hydronephrosis. No sonographically evident solid mass lesion. MIDLINE VASCULATURE: The visualized inferior vena cava is patent. The proximal abdominal aorta is borderline dilated and measures 2.6 cm in diameter. Splenic artery and vein are patent. OTHER FINDINGS: Left pleural effusion. IMPRESSION: Cirrhosis. No focal liver lesion. Patent portal and hepatic vasculature. Patent TIPS stent. Slightly elevated resistive index and acceleration time in the hepatic arteries, likely related to cirrhosis. Splenomegaly. Small volume ascites. An abdominal aortic aneurysm measures 2.6 cm in diameter. A follow-up examination is recommended every 5 years. Signed: Kathy Chaney MDReport Verified Date/Time: 04/08/2019 14:18:02 Reading Location: [facility] C013Y CT Body Reading Room Electronically signed by: KATHY CHANEY MD on 2018 02:18 PMPOCT-GLUCOSE [id number] 10:07:00 Test Item Value Reference Range Comments POC-GLUCOSE METER 129 mg/dL 70-110 : TESTED AT [facility] [address] (BEAKER) (test quyq=6045) [facility], [address]: Cosmetic Sales Advisor/Contact Lens Molder [phone]=[id number] for CARLOS GARAY POCT-GLUCOSE [id number] 07:56:00 Test Item Value Reference Range Comments POC-GLUCOSE METER (BEAKER) 98 mg/dL 70-110 : TESTED AT [facility] [address] (test wklb=3872) [facility], [address]: Cosmetic Sales Advisor/Contact Lens Molder [phone] for ALICIA DELATORRE BASIC METABOLIC [id number] 05:49:00 Test Item Value Reference Range Comments SODIUM (BEAKER) (test 152 meq/L 136-145 ifek=966) POTASSIUM (BEAKER) (test 3.0 meq/L 3.5-5.1 kxcn=875) CHLORIDE (BEAKER) (test 128 meq/L 98-107 tegb=798) CO2 (BEAKER) (test 23 meq/L 22-29 efay=061) BLOOD UREA NITROGEN 12 mg/dL 7-21 (BEAKER) (test uiio=954) CREATININE (BEAKER) (test 0.76 mg/dL 0.57-1.25 less=389) GLUCOSE RANDOM (BEAKER) 110 mg/dL 70-105 (test hrke=794) CALCIUM (BEAKER) (test 8.4 mg/dL 8.4-10.2 bnfj=392) EGFR (BEAKER) (test 108 mL/min/1.73 sq m ESTIMATED GFR IS NOT zqnx=4988) ACCURATE CREATININE CLEARANCE IN PREDICTING GLOMERULAR FILTRATION RATE. ESTIMATED GFR IS NOT APPLICABLE FOR DIALYSIS PATIENTS. Specimen moderately [id number] 05:23:00 Test Item Value Reference Range Comments PHOSPHORUS (BEAKER) (test ccpr=674) 3.0 mg/dL 2.3-4.7 [id number] 05:23:00 Test Item Value Reference Range Comments MAGNESIUM (BEAKER) (test jsoc=863) 1.9 mg/dL 1.6-2.6 CBC W/PLT COUNT & AUTO [id number] 04:58:00 Test Item Value Reference Range Comments WHITE BLOOD CELL COUNT (BEAKER) (test kwwm=723) 6.5 K/ L 3.5-10.5 RED BLOOD CELL COUNT (BEAKER) (test curc=003) 2.34 M/ L 4.63-6.08 HEMOGLOBIN (BEAKER) (test bwuk=996) 7.4 GM/DL 13.7-17.5 HEMATOCRIT (BEAKER) (test xjnc=329) 24.1 % 40.1-51.0 MEAN CORPUSCULAR VOLUME (BEAKER) (test uxox=514) 103.0 fL 79.0-92.2 MEAN CORPUSCULAR HEMOGLOBIN (BEAKER) (test 31.6 pg 25.7-32.2 vfej=956) MEAN CORPUSCULAR HEMOGLOBIN CONC (BEAKER) (test 30.7 GM/DL 32.3-36.5 elpa=181) RED CELL DISTRIBUTION WIDTH (BEAKER) (test 27.4 % 11.6-14.4 jcqp=076) PLATELET COUNT (BEAKER) (test uvyg=522) 29 K/CU MM 150-450 MEAN PLATELET VOLUME (BEAKER) (test bgyc=354) 11.5 fL 9.4-12.4 NUCLEATED RED BLOOD CELLS (BEAKER) (test 0 /100 WBC 0-0 wmyi=030) NEUTROPHILS RELATIVE PERCENT (BEAKER) (test 66 % mzou=037) LYMPHOCYTES RELATIVE PERCENT (BEAKER) (test 19 % stuz=292) MONOCYTES RELATIVE PERCENT (BEAKER) (test 10 % rmbv=547) EOSINOPHILS RELATIVE PERCENT (BEAKER) (test 3 % xfnd=269) BASOPHILS RELATIVE PERCENT (BEAKER) (test 0 % lhvb=583) NEUTROPHILS ABSOLUTE COUNT (BEAKER) (test 4.29 K/ L 1.78-5.38 shax=892) LYMPHOCYTES ABSOLUTE COUNT (BEAKER) (test 1.27 K/ L 1.32-3.57 wsus=184) MONOCYTES ABSOLUTE COUNT (BEAKER) (test migw=286) 0.67 K/ L 0.30-0.82 EOSINOPHILS ABSOLUTE COUNT (BEAKER) (test 0.20 K/ L 0.04-0.54 hkbk=712) BASOPHILS ABSOLUTE COUNT (BEAKER) (test igjn=404) 0.00 K/ L 0.01-0.08 IMMATURE GRANULOCYTES-RELATIVE PERCENT (BEAKER) 2 % 0-1 (test czsk=7883) CALCIUM, [id number] 04:55:00 Test Item Value Reference Range Comments CALCIUM IONIZED (BEAKER) (test oqyf=329) 1.32 mmol/L 1.12-1.27 PH, BLOOD (BEAKER) (test rebh=3800) 7.39 POCT-GLUCOSE [id number] 00:46:00 Test Item Value Reference Range Comments POC-GLUCOSE METER (BEAKER) 115 mg/dL 70-110 : TESTED AT [address] (test aorh=2525) [facility], [id number]: Cosmetic Sales Advisor/Contact [employer] UH=[id number] for MOLLY RUIZ POCT-GLUCOSE [id number] 06:37:00 Test Item Value Reference Range Comments POC-GLUCOSE METER (BEAKER) 123 mg/dL 70-110 : TESTED AT [address] (test qdhu=1512) [facility], [id number]: Cosmetic Sales Advisor/Contact [employer] RT=[id number] for SUZY RIOS COMPREHENSIVE METABOLIC [id number] 05:29:00 Test Item Value Reference Range Comments TOTAL PROTEIN (BEAKER) 5.4 gm/dL 6.0-8.3 (test jszo=586) ALBUMIN (BEAKER) (test 1.6 g/dL 3.5-5.0 yolm=6399) ALKALINE PHOSPHATASE 218 U/L 40-150 (BEAKER) (test qfvv=634) BILIRUBIN TOTAL (BEAKER) 6.8 mg/dL 0.2-1.2 (test ozyd=236) SODIUM (BEAKER) (test 151 meq/L 136-145 ecka=750) POTASSIUM (BEAKER) (test 3.1 meq/L 3.5-5.1 bhip=949) CHLORIDE (BEAKER) (test 130 meq/L 98-107 fiau=681) CO2 (BEAKER) (test 21 meq/L 22-29 frke=027) BLOOD UREA NITROGEN 13 mg/dL 7-21 (BEAKER) (test szfu=045) CREATININE (BEAKER) (test 0.77 mg/dL 0.57-1.25 vxqx=394) GLUCOSE RANDOM (BEAKER) 137 mg/dL 70-105 (test fgae=166) CALCIUM (BEAKER) (test 8.3 mg/dL 8.4-10.2 tagw=250) AST (SGOT) (BEAKER) (test 56 U/L 5-34 wltk=686) ALT (SGPT) (BEAKER) (test 34 U/L 6-55 bccm=457) EGFR (BEAKER) (test 106 mL/min/1.73 sq ESTIMATED GFR IS NOT aaoe=5747) m ACCURATE CREATININE CLEARANCE IN PREDICTING GLOMERULAR FILTRATION RATE. ESTIMATED GFR IS NOT APPLICABLE FOR DIALYSIS PATIENTS. Specimen moderately ictericCBC (HEMOGRAM ONLY)2019-04-07 05:27:00 Test Item Value Reference Range Comments WHITE BLOOD CELL COUNT (BEAKER) (test ahdk=637) 8.4 K/ L 3.5-10.5 RED BLOOD CELL COUNT (BEAKER) (test mhru=009) 2.53 M/ L 4.63-6.08 HEMOGLOBIN (BEAKER) (test mpuv=151) 8.1 GM/DL 13.7-17.5 HEMATOCRIT (BEAKER) (test tmbm=530) 25.4 % 40.1-51.0 MEAN CORPUSCULAR VOLUME (BEAKER) (test zksn=874) 100.4 fL 79.0-92.2 MEAN CORPUSCULAR HEMOGLOBIN (BEAKER) (test 32.0 pg 25.7-32.2 yruw=541) MEAN CORPUSCULAR HEMOGLOBIN CONC (BEAKER) (test 31.9 GM/DL 32.3-36.5 vjyd=159) RED CELL DISTRIBUTION WIDTH (BEAKER) (test 26.9 % 11.6-14.4 umxi=623) PLATELET COUNT (BEAKER) (test tyzn=048) 29 K/CU MM 150-450 MEAN PLATELET VOLUME (BEAKER) (test ssfd=334) 10.2 fL 9.4-12.4 NUCLEATED RED BLOOD CELLS (BEAKER) (test 0 /100 WBC 0-0 wqtn=574) [id number] 05:23:00 Test Item Value Reference Range Comments PHOSPHORUS (BEAKER) (test zyzq=630) 2.6 mg/dL 2.3-4.7 [id number] 05:23:00 Test Item Value Reference Range Comments MAGNESIUM (BEAKER) (test qkah=166) 1.9 mg/dL 1.6-2.6 [id number] 05:00:00 Test Item Value Reference Range Comments PROTIME (BEAKER) (test pivg=297) 27.5 seconds 11.9-14.2 INR (BEAKER) (test gktx=125) 2.7 <=5.9 PARTIAL THROMBOPLASTIN TIME (BEAKER) (test 47.9 seconds 22.5-36.0 gmsq=110) Effective 10/09/2018: PT Reference Range ChangeNew: 11.9-14.2 Previous: 11.7- 14.7RECOMMENDED COUMADIN/WARFARIN INR THERAPY RANGESSTANDARD DOSE: 2.0-3.0 Includes: PROPHYLAXIS for venous thrombosis, systemic embolization; TREATMENT for venous thrombosis and/or pulmonary embolus.HIGH RISK: Target INR is2.5-3.5 for patients wiht mechanical heart valves.U/S, DUPLEX, [id number] 16:29: 00Hematemesis; Etoh cirrhosis with hx of TIPS, eval TIPS patency and rule out PVTReason for exam:->Hematemesis; Etoh cirrhosis with hx of TIPS, eval TIPS patency and rule out PVTFINAL REPORT TECHNIQUE: Grayscale ultrasound of the abdomen with color Doppler and spectral Doppler ultrasound of the portal/hepatic vasculature. INDICATION: 53-year-old man withhematemesis and alcoholic cirrhosis. COMPARISON: Abdomen and pelvis CTA . FINDINGS: LIVER: The liver is normal in size with nodular contour and coarsened echotexture, consistent with cirrhosis. No focal liver lesions. HEPATIC VASCULATURE: Main portal vein is prominent and measures 1.4 cm indiameter. Portal veins are patent with normal waveform. Normal hepatopedal flow in the main portal vein. Expected hepatofugal flow in the right and left portal veins in the presence of a TIPS stent. Velocity in the main portal vein is the upper limit of normal and measures 38 cm/s. The hepatic arteries are patent the resistive indices in the proper and left hepatic arteries are within normal limits. Acceleration time in the proper hepatic artery is slightly elevated at 0.08 seconds. Resistive index in the right hepatic artery is slightly elevated at 0.8. The hepatic veins and confluence are patent.The TIPS stent is patent with intrastent velocities which range between 111-150 cm/s. BILIARY:Gallbladder: Sludge in the gallbladder. No gallbladder wall thickening, pericholecystic fluid, or distention. Negative sonographic Chowdhury sign.Common bile duct measures 0.4 cm, within normal limits. No intrahepatic biliary ductal dilatation. PANCREAS: Visualized portions of the pancreas are unremarkable. SPLEEN: The spleen is prominent and measures 13.2 cm. PERITONEUM: Small volume ascites. KIDNEYS: Both kidneys are normal in size. No hydronephrosis. No sonographically evident solid mass lesion. MIDLINE VASCULATURE: The visualized inferior vena cava is patent. The proximal abdominal aorta is borderline dilated and measures 2.6 cm in diameter. Splenic artery and vein are patent. OTHER FINDINGS: Left pleural effusion. IMPRESSION:Cirrhosis. No focal liver lesion. Patent portal and hepatic vasculature. Patent TIPS stent. Slightly elevated resistive index and acceleration time in the hepatic arteries, likely related to cirrhosis. Splenomegaly. Small volume ascites. An abdominal aortic aneurysm measures 2.6 cm in diameter. A follow-up examination is recommended every 5 years. Signed: Kathy Chaney MDReport Verified Date/Time: 04/06/2019 16:29:59 Reading Location: [facility] C013Y CT Body Reading Room [facility] METABOLIC [id number] 15:08:00 Test Item Value Reference Range Comments SODIUM (BEAKER) (test 151 meq/L 136-145 mgyi=575) POTASSIUM (BEAKER) (test 3.3 meq/L 3.5-5.1 tubf=770) CHLORIDE (BEAKER) (test 130 meq/L 98-107 kwds=048) CO2 (BEAKER) (test 19 meq/L 22-29 fcru=181) BLOOD UREA NITROGEN 14 mg/dL 7-21 (BEAKER) (test ynuu=108) CREATININE (BEAKER) (test 0.81 mg/dL 0.57-1.25 cijd=672) GLUCOSE RANDOM (BEAKER) 149 mg/dL 70-105 (test egjf=089) CALCIUM (BEAKER) (test 8.4 mg/dL 8.4-10.2 nijh=325) EGFR (BEAKER) (test 100 mL/min/1.73 sq m ESTIMATED GFR IS NOT xxai=2333) ACCURATE CREATININE CLEARANCE IN PREDICTING GLOMERULAR FILTRATION RATE. ESTIMATED GFR IS NOT APPLICABLE FOR DIALYSIS PATIENTS. Specimen moderately [id number] 15:06:00 Test Item Value Reference Range Comments MAGNESIUM (BEAKER) (test jjvq=786) 2.1 mg/dL 1.6-2.6 [id number] 11:30:00 Test Item Value Reference Range Comments MAGNESIUM (BEAKER) (test ohtn=690) 1.8 mg/dL 1.6-2.6 [id number] 11:30:00 Test Item Value Reference Range Comments PHOSPHORUS (BEAKER) (test tfgh=151) 3.0 mg/dL 2.3-4.7 CREATININE, RANDOM [id number] 09:24:00 Test Item Value Reference Range Comments CREATININE URINE (BEAKER) (test nmoy=392) 41.5 mg/dL Reference Range: No NormalsSODIUM, RANDOM [id number] 09:24:00 Test Item Value Reference Range Comments SODIUM URINE (BEAKER) (test lajj=697) 104 meq/L Reference Range: No NormalsOSMOLALITY, [id number] 09:07:00 Test Item Value Reference Range Comments OSMOLALITY URINE (BEAKER) (test zjbn=102) 464 mOsm/kg 40-1,400 OSMOLALITY, [id number] 09:06:00 Test Item Value Reference Range Comments OSMOLALITY, SERUM (BEAKER) (test tcyw=654) 330 mOsm/kg 275-295 BASIC METABOLIC [id number] 08:55:00 Test Item Value Reference Range Comments SODIUM (BEAKER) (test 157 meq/L 136-145 xnrn=106) POTASSIUM (BEAKER) (test 2.9 meq/L 3.5-5.1 lfzp=924) CHLORIDE (BEAKER) (test 132 meq/L 98-107 nluk=699) CO2 (BEAKER) (test 22 meq/L 22-29 yoxl=515) BLOOD UREA NITROGEN 16 mg/dL 7-21 (BEAKER) (test nltq=079) CREATININE (BEAKER) (test 0.82 mg/dL 0.57-1.25 bbwf=567) GLUCOSE RANDOM (BEAKER) 135 mg/dL 70-105 (test sceq=265) CALCIUM (BEAKER) (test 8.9 mg/dL 8.4-10.2 legj=283) EGFR (BEAKER) (test 99 mL/min/1.73 sq m ESTIMATED GFR IS NOT zber=0193) ACCURATE CREATININE CLEARANCE IN PREDICTING GLOMERULAR FILTRATION RATE. ESTIMATED GFR IS NOT APPLICABLE FOR DIALYSIS PATIENTS. Specimen moderately ictericCBC (HEMOGRAM ONLY)2019-04-06 04:27:00 Test Item Value Reference Range Comments WHITE BLOOD CELL COUNT (BEAKER) (test tfsh=705) 8.7 K/ L 3.5-10.5 RED BLOOD CELL COUNT (BEAKER) (test zbop=102) 2.48 M/ L 4.63-6.08 HEMOGLOBIN (BEAKER) (test dbcd=812) 7.8 GM/DL 13.7-17.5 HEMATOCRIT (BEAKER) (test zccj=135) 24.6 % 40.1-51.0 MEAN CORPUSCULAR VOLUME (BEAKER) (test dvol=922) 99.2 fL 79.0-92.2 MEAN CORPUSCULAR HEMOGLOBIN (BEAKER) (test 31.5 pg 25.7-32.2 pseq=601) MEAN CORPUSCULAR HEMOGLOBIN CONC (BEAKER) (test 31.7 GM/DL 32.3-36.5 qaqo=535) RED CELL DISTRIBUTION WIDTH (BEAKER) (test 25.7 % 11.6-14.4 iqzp=312) PLATELET COUNT (BEAKER) (test wxln=823) 26 K/CU MM 150-450 MEAN PLATELET VOLUME (BEAKER) (test hpca=785) 10.2 fL 9.4-12.4 NUCLEATED RED BLOOD CELLS (BEAKER) (test 0 /100 WBC 0-0 omrq=400) COMPREHENSIVE METABOLIC [id number] 04:20:00 Test Item Value Reference Range Comments TOTAL PROTEIN (BEAKER) 5.3 gm/dL 6.0-8.3 (test rxez=849) ALBUMIN (BEAKER) (test 1.6 g/dL 3.5-5.0 ynno=6717) ALKALINE PHOSPHATASE 206 U/L 40-150 (BEAKER) (test gxve=569) BILIRUBIN TOTAL (BEAKER) 6.1 mg/dL 0.2-1.2 (test nnqf=671) SODIUM (BEAKER) (test 155 meq/L 136-145 ikbo=745) POTASSIUM (BEAKER) (test 2.6 meq/L 3.5-5.1 qvkz=252) CHLORIDE (BEAKER) (test 132 meq/L 98-107 viqg=314) CO2 (BEAKER) (test 21 meq/L 22-29 ygkp=287) BLOOD UREA NITROGEN 16 mg/dL 7-21 (BEAKER) (test qnsl=230) CREATININE (BEAKER) (test 0.81 mg/dL 0.57-1.25 muvf=082) GLUCOSE RANDOM (BEAKER) 143 mg/dL 70-105 (test jkfn=333) CALCIUM (BEAKER) (test 8.7 mg/dL 8.4-10.2 izqp=601) AST (SGOT) (BEAKER) (test 57 U/L 5-34 rccf=574) ALT (SGPT) (BEAKER) (test 35 U/L 6-55 evwe=271) EGFR (BEAKER) (test 100 mL/min/1.73 sq ESTIMATED GFR IS NOT vind=7395) m ACCURATE CREATININE CLEARANCE IN PREDICTING GLOMERULAR FILTRATION RATE. ESTIMATED GFR IS NOT APPLICABLE FOR DIALYSIS PATIENTS. Specimen moderately [id number] 04:16:00 Test Item Value Reference Range Comments PHOSPHORUS (BEAKER) (test tstv=071) 2.2 mg/dL 2.3-4.7 [id number] 04:16:00 Test Item Value Reference Range Comments MAGNESIUM (BEAKER) (test hbbf=560) 1.8 mg/dL 1.6-2.6 [id number] 04:10:00 Test Item Value Reference Range Comments PROTIME (BEAKER) (test wvep=359) 28.1 seconds 11.9-14.2 INR (BEAKER) (test pnvj=696) 2.8 <=5.9 PARTIAL THROMBOPLASTIN TIME (BEAKER) (test 45.7 seconds 22.5-36.0 dvsv=362) Effective 10/09/2018: PT Reference Range ChangeNew: 11.9-14.2 Previous: 11.7- 14.7RECOMMENDED COUMADIN/WARFARIN INR THERAPY RANGESSTANDARD DOSE: 2.0-3.0 Includes: PROPHYLAXIS for venous thrombosis, systemic embolization; TREATMENT for venous thrombosis and/or pulmonary embolus.HIGH RISK: Target INR is2.5-3.5 for patients wiht mechanical heart valves.CT, CHEST, WITH [id number] 12: 49:00FINAL REPORT TECHNIQUE: CT of the chest WITH intravenous contrast. Dose modulation, iterative reconstruction, and/or weight- based adjustment of the mA/kV was utilized to reduce the radiation dose to as low as reasonably achievable. INDICATION: 53-year-old man with chronic dyspnea. COMPARISON: Chest radiograph 04/04/2019. FINDINGS: LINES/TUBES: Incompletely visualized feeding tube courses into the proximal duodenum. LUNGS AND AIRWAYS: Central airways are patent. Patchy groundglass opacities in both upper lobes. Consolidative opacity in the left lower lobe adjacent to the pleural effusion. 4 mm noncalcified nodule in the right middle lobe (axial lung window series image 35).PLEURA: Small left pleural effusion. HEART AND MEDIASTINUM: The visualized thyroid gland is normal. No significant mediastinal, hilar, or axillary lymphadenopathy. The heart and pericardium are within normal limits. The main pulmonary artery is mildly prominent and measures 3.1 cm in diameter Implanted metallic structures in the paraesophageal region. SOFT TISSUES AND BONES: Degenerative changes of the visualized spine. Mild gynecomastia bilaterally. UPPER ABDOMEN: Cirrhosis. TIPS stent in Place. Suspected sludge and /or stones in the gallbladder. Small volume ascites. IMPRESSION:Groundglass opacities in both upper lobes may represent multifocal pneumonia. Consolidative opacity in the left lower lobe adjacent to the small left pleural effusion, likely atelectasis. Superimposed pneumonia/aspiration cannot be excluded. 4 mm pulmonary nodule in the right middle lobe. If patient is at high risk for lung neoplasm, then optional follow-up chest CT may be obtained in 12 months for reassessment. Otherwise, no routine follow-up imaging recommended. Mildly prominent pulmonary artery, suggestive pulmonary hypertension. Signed: Kathy Chaney MDReport Verified Date/Time: 04/05/2019 12:49:24 Reading Location: [facility] C013Y CT Body Reading Room COMPREHENSIVE METABOLIC [id number] 06:23:00 Test Item Value Reference Range Comments TOTAL PROTEIN (BEAKER) 5.8 gm/dL 6.0-8.3 Specimen slightly (test taef=484) hemolyzed ALBUMIN (BEAKER) (test 1.9 g/dL 3.5-5.0 Specimen slightly eenc=1996) hemolyzed ALKALINE PHOSPHATASE 195 U/L 40-150 (BEAKER) (test tkll=812) BILIRUBIN TOTAL (BEAKER) 6.7 mg/dL 0.2-1.2 Specimen slightly (test ahdg=945) hemolyzed SODIUM (BEAKER) (test 153 meq/L 136-145 xims=933) POTASSIUM (BEAKER) (test 3.3 meq/L 3.5-5.1 Specimen slightly zmsr=379) hemolyzed CHLORIDE (BEAKER) (test 132 meq/L 98-107 amvl=325) CO2 (BEAKER) (test 19 meq/L 22-29 dpbr=208) BLOOD UREA NITROGEN 20 mg/dL 7-21 (BEAKER) (test vcsy=590) CREATININE (BEAKER) (test 0.73 mg/dL 0.57-1.25 Specimen slightly lcac=688) hemolyzed GLUCOSE RANDOM (BEAKER) 114 mg/dL 70-105 (test jkon=899) CALCIUM (BEAKER) (test 9.0 mg/dL 8.4-10.2 nssl=651) AST (SGOT) (BEAKER) (test 63 U/L 5-34 Specimen slightly rvve=832) hemolyzed ALT (SGPT) (BEAKER) (test 33 U/L 6-55 Specimen slightly pmsy=638) hemolyzed EGFR (BEAKER) (test 113 mL/min/1.73 sq ESTIMATED GFR IS NOT jrfw=9373) m ACCURATE CREATININE CLEARANCE IN PREDICTING GLOMERULAR FILTRATION RATE. ESTIMATED GFR IS NOT APPLICABLE FOR DIALYSIS PATIENTS. Specimen moderately ictericCT, BRAIN, WITHOUT [id number] 06:10:00FINAL REPORT EXAM: CT, BRAIN, WITHOUT CONTRAST CLINICAL INDICATION: Altered mental status. TECHNIQUE: CT images from skull base to vertex without IV contrast. This exam was performed according to the departmental dose optimization program which includes automated exposure control , adjustment of the mA and/or kV according to the patient size, and/or use of an iterative reconstruction technique. COMPARISON: 03/11/2019 FINDINGS: Parenchyma: Focus of hypoattenuation in the region of the previous right cerebellar parenchymal hematoma compatible with gliosis. No new hemorrhage. No evidence of acute infarction. No mass or mass effect. Cerebral parenchymal volume loss mildlyage advanced similar to prior. Extra-axial Collection: None Ventricular System: No hydrocephalus Osseous Structures: Normal Included Orbits: Normal Paranasal Sinuses: Predominantly clear Tympanomastoid Cavities: Normal Other: None IMPRESSION:No acute intracranial abnormality. Sequela of previoussmall focal hemorrhage in the right cerebellar hemisphere. No new hemorrhage. If there is persistentclinical concern for intracranial pathology, MR examination with contrast is recommended for furthercharacterization. Signed : Calixto Kohli MDReport Verified Date/Time: 04/05/2019 06:10:32 [id number] 06:05:00 Test Item Value Reference Range Comments MAGNESIUM (BEAKER) (test 1.9 mg/dL 1.6-2.6 Specimen slightly hemolyzed lwxm=894) [id number] 06:05:00 Test Item Value Reference Range Comments PHOSPHORUS (BEAKER) (test 2.7 mg/dL 2.3-4.7 Specimen slightly hemolyzed zrsp=107) CBC (HEMOGRAM ONLY)2019-04-05 05:56:00 Test Item Value Reference Range Comments WHITE BLOOD CELL COUNT (BEAKER) (test teyn=058) 12.3 K/ L 3.5-10.5 RED BLOOD CELL COUNT (BEAKER) (test lunh=583) 2.73 M/ L 4.63-6.08 HEMOGLOBIN (BEAKER) (test sslr=582) 8.5 GM/DL 13.7-17.5 HEMATOCRIT (BEAKER) (test oddk=453) 27.0 % 40.1-51.0 MEAN CORPUSCULAR VOLUME (BEAKER) (test wrqi=704) 98.9 fL 79.0-92.2 MEAN CORPUSCULAR HEMOGLOBIN (BEAKER) (test 31.1 pg 25.7-32.2 qlex=688) MEAN CORPUSCULAR HEMOGLOBIN CONC (BEAKER) (test 31.5 GM/DL 32.3-36.5 wpio=932) RED CELL DISTRIBUTION WIDTH (BEAKER) (test 25.2 % 11.6-14.4 gdiw=248) PLATELET COUNT (BEAKER) (test gqvz=559) 53 K/CU MM 150-450 MEAN PLATELET VOLUME (BEAKER) (test tklz=709) 12.0 fL 9.4-12.4 NUCLEATED RED BLOOD CELLS (BEAKER) (test 0 /100 WBC 0-0 nyoc=007) [id number] 05:43:00 Test Item Value Reference Range Comments PROTIME (BEAKER) (test tvox=284) 25.1 seconds 11.9-14.2 INR (BEAKER) (test qmrh=274) 2.4 <=5.9 PARTIAL THROMBOPLASTIN TIME (BEAKER) (test 47.2 seconds 22.5-36.0 kiqw=441) Effective 10/09/2018: PT Reference Range ChangeNew: 11.9-14.2 Previous: 11.7- 14.7RECOMMENDED COUMADIN/WARFARIN INR THERAPY RANGESSTANDARD DOSE: 2.0-3.0 Includes: PROPHYLAXIS for venous thrombosis, systemic embolization; TREATMENT for venous thrombosis and/or pulmonary embolus.HIGH RISK: Target INR is2.5-3.5 for patients wiht mechanical heart valves.POCT-GLUCOSE [id number] 18:04:00 Test Item Value Reference Range Comments POC-GLUCOSE METER (BEAKER) 129 mg/dL 70-110 : TESTED AT [facility] [address] [facility] (test uvts=6925) [facility], [id number]: Cosmetic Sales Advisor/Contact Lens Molder [phone] for AMRITA DIA URINALYSIS W/ REFLEX URINE [id number] 16:27:00 Test Item Value Reference Range Comments COLOR (BEAKER) (test jcnk=007) Yellow CLARITY (BEAKER) (test ssmj=463) Clear SPECIFIC GRAVITY UA (BEAKER) (test sdtm=347) 1.014 1.001-1.035 PH UA (BEAKER) (test novd=716) 6.5 5.0-8.0 PROTEIN UA (BEAKER) (test ooop=212) Negative Negative GLUCOSE UA (BEAKER) (test fhsu=555) Negative Negative KETONES UA (BEAKER) (test jtbz=261) Negative Negative BILIRUBIN UA (BEAKER) (test cqjt=587) Negative Negative BLOOD UA (BEAKER) (test ukyc=409) Moderate Negative NITRITE UA (BEAKER) (test vkni=109) Negative Negative LEUKOCYTE ESTERASE UA (BEAKER) (test egam=687) Negative Negative UROBILINOGEN UA (BEAKER) (test disj=917) 0.2 mg/dL 0.2-1.0 RBC UA (BEAKER) (test rpdc=973) 186 /HPF WBC UA (BEAKER) (test uzpi=921) 1 /HPF MUCUS (BEAKER) (test ubhr=2527) Rare HYALINE CASTS (BEAKER) (test hrsk=419) 3 /LPF SOURCE(BEAKER) (test zkvs=8455) POCT-GLUCOSE [id number] 12:42:00 Test Item Value Reference Range Comments POC-GLUCOSE METER (BEAKER) 152 mg/dL 70-110 : Notified RN/MD: TESTED AT (test ogtl=1165) [address], [address]: Cosmetic Sales Advisor/Contact Lens Molder [phone] for AMRITA DIA [id number] 11:55:00 Test Item Value Reference Range Comments AMMONIA (BEAKER) (test zivp=483) 118 mol/L 18-72 RAD, CHEST, 1 VIEW, NON [id number] 07:22:00Reason for exam:->intubated, acute GI bleedShould this be performed at the bedside?->YesFINAL REPORT RAD, CHEST, 1 VIEW, NON DEPT INDICATION: intubated, acute GI bleed COMPARISON: Prior day's exam FINDINGS: Portable frontal view of the chest. IMPRESSION: Support Lines: ET tube is no longer seen and has either been removed or is obscured by artifact. Feeding tubedescends below the diaphragm. Lungs and pleura: Increased coarse interstitial opacities concerning for worsening interstitial edema. . Superimposed infection may be excluded clinically. No pneumothorax.Heart and mediastinum: Stable contours. Stable surgical changes.Additional findings: None. Signed: Rosaura Eason MDReport Verified Date/Time: 04/04/2019 07:22:52 Reading Location: [facility] Radiology Reading Room POCT-GLUCOSE [id number] 05:57:00 Test Item Value Reference Range Comments POC-GLUCOSE METER (BEAKER) 147 mg/dL 70-110 : TESTED AT [address] (test gpdp=8453) [facility], [address]: Cosmetic Sales Advisor/Contact Lens Molder [phone] for SAMUEL SNIDER [id number] 04:07:00 Test Item Value Reference Range Comments PHOSPHORUS (BEAKER) (test vwot=716) 3.1 mg/dL 2.3-4.7 [id number] 04:07:00 Test Item Value Reference Range Comments MAGNESIUM (BEAKER) (test mdfl=491) 1.8 mg/dL 1.6-2.6 COMPREHENSIVE METABOLIC [id number] 04:07:00 Test Item Value Reference Range Comments TOTAL PROTEIN (BEAKER) 5.6 gm/dL 6.0-8.3 (test dbgq=860) ALBUMIN (BEAKER) (test 1.8 g/dL 3.5-5.0 yyun=3339) ALKALINE PHOSPHATASE 130 U/L 40-150 (BEAKER) (test pdyv=115) BILIRUBIN TOTAL (BEAKER) 7.0 mg/dL 0.2-1.2 (test wsct=094) SODIUM (BEAKER) (test 147 meq/L 136-145 imis=101) POTASSIUM (BEAKER) (test 3.3 meq/L 3.5-5.1 xhft=008) CHLORIDE (BEAKER) (test 127 meq/L 98-107 eyke=009) CO2 (BEAKER) (test 18 meq/L 22-29 bxws=529) BLOOD UREA NITROGEN 23 mg/dL 7-21 (BEAKER) (test zogk=097) CREATININE (BEAKER) (test 0.90 mg/dL 0.57-1.25 ipdh=422) GLUCOSE RANDOM (BEAKER) 161 mg/dL 70-105 (test mirq=906) CALCIUM (BEAKER) (test 8.9 mg/dL 8.4-10.2 jfbn=226) AST (SGOT) (BEAKER) (test 51 U/L 5-34 ebpd=920) ALT (SGPT) (BEAKER) (test 28 U/L 6-55 hlia=963) EGFR (BEAKER) (test 89 mL/min/1.73 sq m ESTIMATED GFR IS NOT mhad=2759) ACCURATE CREATININE CLEARANCE IN PREDICTING GLOMERULAR FILTRATION RATE. ESTIMATED GFR IS NOT APPLICABLE FOR DIALYSIS PATIENTS. Specimen moderately ictericCBC (HEMOGRAM ONLY)2019-04-04 04:03:00 Test Item Value Reference Range Comments WHITE BLOOD CELL COUNT (BEAKER) (test qmfu=062) 9.7 K/ L 3.5-10.5 RED BLOOD CELL COUNT (BEAKER) (test seib=629) 2.92 M/ L 4.63-6.08 HEMOGLOBIN (BEAKER) (test jcvf=687) 9.0 GM/DL 13.7-17.5 HEMATOCRIT (BEAKER) (test jbkg=580) 27.4 % 40.1-51.0 MEAN CORPUSCULAR VOLUME (BEAKER) (test rylf=507) 93.8 fL 79.0-92.2 MEAN CORPUSCULAR HEMOGLOBIN (BEAKER) (test 30.8 pg 25.7-32.2 yokj=848) MEAN CORPUSCULAR HEMOGLOBIN CONC (BEAKER) (test 32.8 GM/DL 32.3-36.5 zvvz=586) RED CELL DISTRIBUTION WIDTH (BEAKER) (test 23.4 % 11.6-14.4 rpwm=024) PLATELET COUNT (BEAKER) (test qtif=595) 52 K/CU MM 150-450 MEAN PLATELET VOLUME (BEAKER) (test mjrw=082) 10.2 fL 9.4-12.4 NUCLEATED RED BLOOD CELLS (BEAKER) (test 0 /100 WBC 0-0 mrze=701) [id number] 03:56:00 Test Item Value Reference Range Comments FIBRINOGEN LEVEL (BEAKER) (test kubc=125) 108 mg/dl 225-434 [id number] 03:51:00 Test Item Value Reference Range Comments PROTIME (BEAKER) (test yayi=974) 27.8 seconds 11.9-14.2 INR (BEAKER) (test bbop=273) 2.8 <=5.9 PARTIAL THROMBOPLASTIN TIME (BEAKER) (test 46.0 seconds 22.5-36.0 nsfi=893) Effective 10/09/2018: PT Reference Range ChangeNew: 11.9-14.2 Previous: 11.7- 14.7RECOMMENDED COUMADIN/WARFARIN INR THERAPY RANGESSTANDARD DOSE: 2.0-3.0 Includes: PROPHYLAXIS for venous thrombosis, systemic embolization; TREATMENT for venous thrombosis and/or pulmonary embolus.HIGH RISK: Target INR is2.5-3.5 for patients wiht mechanical heart valves.POCT-GLUCOSE [id number] 01:30:00 Test Item Value Reference Range Comments POC-GLUCOSE METER (BEAKER) 134 mg/dL 70-110 : TESTED AT [facility] [address] [facility] (test nkkf=8482) [facility], [address]: Cosmetic Sales Advisor/Contact Lens Molder [phone] for YASMINE JUAREZ POCT-GLUCOSE [id number] 19:14:00 Test Item Value Reference Range Comments POC-GLUCOSE METER (BEAKER) 124 mg/dL 70-110 : TESTED AT [facility] [address] [facility] (test nkus=0029) [facility], [address]: Cosmetic Sales Advisor/Contact Lens Molder [phone] for AMRITA DIA [id number] 16:34:00 Test Item Value Reference Range Comments FIBRINOGEN LEVEL (BEAKER) (test tylg=075) 150 mg/dl 225-434 PT/[id number] 16:30:00 Test Item Value Reference Range Comments PROTIME (BEAKER) (test kszs=587) 26.6 seconds 11.9-14.2 INR (BEAKER) (test osfl=004) 2.6 <=5.9 PARTIAL THROMBOPLASTIN TIME (BEAKER) (test 44.5 seconds 22.5-36.0 uctp=240) Effective 10/09/2018: PT Reference Range ChangeNew: 11.9-14.2 Previous: 11.7- 14.7RECOMMENDED COUMADIN/WARFARIN INR THERAPY RANGESSTANDARD DOSE: 2.0-3.0 Includes: PROPHYLAXIS for venous thrombosis, systemic embolization; TREATMENT for venous thrombosis and/or pulmonary embolus.HIGH RISK: Target INR is2.5-3.5 for patients wiht mechanical heart valves.CBC (HEMOGRAM ONLY)2019-04-03 16:24:00 Test Item Value Reference Range Comments WHITE BLOOD CELL COUNT (BEAKER) (test iqxc=399) 9.5 K/ L 3.5-10.5 RED BLOOD CELL COUNT (BEAKER) (test zzwa=604) 2.85 M/ L 4.63-6.08 HEMOGLOBIN (BEAKER) (test nhmx=824) 8.9 GM/DL 13.7-17.5 HEMATOCRIT (BEAKER) (test kgnx=425) 26.5 % 40.1-51.0 MEAN CORPUSCULAR VOLUME (BEAKER) (test zcvz=097) 93.0 fL 79.0-92.2 MEAN CORPUSCULAR HEMOGLOBIN (BEAKER) (test 31.2 pg 25.7-32.2 xhvn=835) MEAN CORPUSCULAR HEMOGLOBIN CONC (BEAKER) (test 33.6 GM/DL 32.3-36.5 ifdk=605) RED CELL DISTRIBUTION WIDTH (BEAKER) (test 22.6 % 11.6-14.4 cztn=067) PLATELET COUNT (BEAKER) (test uocc=095) 51 K/CU MM 150-450 MEAN PLATELET VOLUME (BEAKER) (test uyth=218) 9.8 fL 9.4-12.4 NUCLEATED RED BLOOD CELLS (BEAKER) (test 0 /100 WBC 0-0 atxl=070) POCT-GLUCOSE [id number] 12:15:00 Test Item Value Reference Range Comments POC-GLUCOSE METER (BEAKER) 132 mg/dL 70-110 : TESTED AT [address] (test epdc=9324) [facility], [id number]: [employer]etic Sales Advisor/Contact Lens Molder IP=[phone] for [facility] DIA RAD, CHEST, 1 VIEW, NON [id number] 07:31:00Reason for exam:->intubated, acute GI bleedShould this be performed at the bedside?->YesFINAL REPORT RAD, CHEST, 1 VIEW, NON DEPT INDICATION: intubated, acute GI bleed COMPARISON: Prior day's exam FINDINGS: Portable frontal view of the chest. IMPRESSION: Support Lines: ET tube tip is 2cm superior to the mackenzie. Feeding tube descends below the diaphragm.Lungs and pleura: Slight interval increased coarse interstitial opacities. Trace left effusion. No dez airspace edema or focal pneumonia. No pneumothorax.Heart and mediastinum: Stable contours. Stable surgical changes.Additional findings: None. Signed: Rosaura Eason Verified Date/Time: 04/03/2019 07:31:36 Reading Location: [facility] Radiology Reading Room BLOOD GAS, [id number] 06:00 :00 Test Item Value Reference Range Comments PH ARTERIAL (BEAKER) (test tgwb=051) 7.47 7.35-7.45 PCO2 ARTERIAL (BEAKER) (test kaqe=195) 25 mmHg 35-45 PO2 ARTERIAL (BEAKER) (test nskl=800) 112 mmHg 80-90 O2 SATURATION ARTERIAL (BEAKER) (test ctwt=054) 98.4 % 96.0-97.0 HCO3 ARTERIAL (BEAKER) (test hsdi=175) 18 mmol/L 21-29 BASE EXCESS ARTERIAL (BEAKER) (test iwwo=692) -5.0 mmol/L -2.0-3.0 PATIENT TEMPERATURE (BEAKER) (test tncx=2657) 37.2 C FIO2 (BEAKER) (test aimj=6861) 40.0 % COMPREHENSIVE METABOLIC [id number] 05:09:00 Test Item Value Reference Range Comments TOTAL PROTEIN (BEAKER) 4.8 gm/dL 6.0-8.3 (test qxtu=376) ALBUMIN (BEAKER) (test 1.7 g/dL 3.5-5.0 mktc=6606) ALKALINE PHOSPHATASE 106 U/L 40-150 (BEAKER) (test snbo=391) BILIRUBIN TOTAL (BEAKER) 5.7 mg/dL 0.2-1.2 (test hrmn=869) SODIUM (BEAKER) (test 145 meq/L 136-145 jsms=561) POTASSIUM (BEAKER) (test 3.4 meq/L 3.5-5.1 gduw=977) CHLORIDE (BEAKER) (test 125 meq/L 98-107 fdem=249) CO2 (BEAKER) (test 17 meq/L 22-29 yjyt=446) BLOOD UREA NITROGEN 27 mg/dL 7-21 (BEAKER) (test pjwz=310) CREATININE (BEAKER) (test 0.93 mg/dL 0.57-1.25 iapz=775) GLUCOSE RANDOM (BEAKER) 156 mg/dL 70-105 (test emju=012) CALCIUM (BEAKER) (test 8.4 mg/dL 8.4-10.2 jqcq=167) AST (SGOT) (BEAKER) (test 41 U/L 5-34 ircq=761) ALT (SGPT) (BEAKER) (test 21 U/L 6-55 rxkl=527) EGFR (BEAKER) (test 85 mL/min/1.73 sq m ESTIMATED GFR IS NOT tpyf=7805) ACCURATE CREATININE CLEARANCE IN PREDICTING GLOMERULAR FILTRATION RATE. ESTIMATED GFR IS NOT APPLICABLE FOR DIALYSIS PATIENTS. Specimen moderately [id number] 04:52:00 Test Item Value Reference Range Comments PHOSPHORUS (BEAKER) (test atfl=776) 3.1 mg/dL 2.3-4.7 [id number] 04:52:00 Test Item Value Reference Range Comments MAGNESIUM (BEAKER) (test dhft=659) 1.8 mg/dL 1.6-2.6 CBC (HEMOGRAM ONLY)2019-04-03 04:49:00 Test Item Value Reference Range Comments WHITE BLOOD CELL COUNT (BEAKER) (test wnoo=050) 8.5 K/ L 3.5-10.5 RED BLOOD CELL COUNT (BEAKER) (test jpzq=045) 2.55 M/ L 4.63-6.08 HEMOGLOBIN (BEAKER) (test bune=521) 7.9 GM/DL 13.7-17.5 HEMATOCRIT (BEAKER) (test jzpj=568) 23.8 % 40.1-51.0 MEAN CORPUSCULAR VOLUME (BEAKER) (test umua=838) 93.3 fL 79.0-92.2 MEAN CORPUSCULAR HEMOGLOBIN (BEAKER) (test 31.0 pg 25.7-32.2 hyrb=916) MEAN CORPUSCULAR HEMOGLOBIN CONC (BEAKER) (test 33.2 GM/DL 32.3-36.5 znpi=190) RED CELL DISTRIBUTION WIDTH (BEAKER) (test 21.5 % 11.6-14.4 kixt=088) PLATELET COUNT (BEAKER) (test iyqq=586) 52 K/CU MM 150-450 MEAN PLATELET VOLUME (BEAKER) (test omtt=512) 10.2 fL 9.4-12.4 NUCLEATED RED BLOOD CELLS (BEAKER) (test 1 /100 WBC 0-0 ocah=105) [id number] 04:49:00 Test Item Value Reference Range Comments FIBRINOGEN LEVEL (BEAKER) (test eyvv=470) 158 mg/dl 225-434 PT/[id number] 04:39:00 Test Item Value Reference Range Comments PROTIME (BEAKER) (test hthu=471) 25.3 seconds 11.9-14.2 INR (BEAKER) (test flca=177) 2.5 <=5.9 PARTIAL THROMBOPLASTIN TIME (BEAKER) (test 42.8 seconds 22.5-36.0 mnwv=414) Effective 10/09/2018: PT Reference Range ChangeNew: 11.9-14.2 Previous: 11.7- 14.7RECOMMENDED COUMADIN/WARFARIN INR THERAPY RANGESSTANDARD DOSE: 2.0-3.0 Includes: PROPHYLAXIS for venous thrombosis, systemic embolization; TREATMENT for venous thrombosis and/or pulmonary embolus.HIGH RISK: Target INR is2.5-3.5 for patients wiht mechanical heart valves.PT/[id number] 00:02:00 Test Item Value Reference Range Comments PROTIME (BEAKER) (test fzbi=929) 25.0 seconds 11.9-14.2 INR (BEAKER) (test rmtz=530) 2.4 <=5.9 PARTIAL THROMBOPLASTIN TIME (BEAKER) (test 42.8 seconds 22.5-36.0 zofv=560) Effective 10/09/2018: PT Reference Range ChangeNew: 11.9-14.2 Previous: 11.7- 14.7RECOMMENDED COUMADIN/WARFARIN INR THERAPY RANGESSTANDARD DOSE: 2.0-3.0 Includes: PROPHYLAXIS for venous thrombosis, systemic embolization; TREATMENT for venous thrombosis and/or pulmonary embolus.HIGH RISK: Target INR is2.5-3.5 for patients wiht mechanical heart valves.CBC (HEMOGRAM ONLY)2019-04-02 23:47:00 Test Item Value Reference Range Comments WHITE BLOOD CELL COUNT (BEAKER) (test pdgw=947) 8.8 K/ L 3.5-10.5 RED BLOOD CELL COUNT (BEAKER) (test wpal=875) 2.52 M/ L 4.63-6.08 HEMOGLOBIN (BEAKER) (test wowv=338) 7.9 GM/DL 13.7-17.5 HEMATOCRIT (BEAKER) (test ecmx=170) 23.3 % 40.1-51.0 MEAN CORPUSCULAR VOLUME (BEAKER) (test krkd=577) 92.5 fL 79.0-92.2 MEAN CORPUSCULAR HEMOGLOBIN (BEAKER) (test 31.3 pg 25.7-32.2 najp=099) MEAN CORPUSCULAR HEMOGLOBIN CONC (BEAKER) (test 33.9 GM/DL 32.3-36.5 xxlj=687) RED CELL DISTRIBUTION WIDTH (BEAKER) (test 21.5 % 11.6-14.4 drcn=437) PLATELET COUNT (BEAKER) (test wlod=945) 56 K/CU MM 150-450 MEAN PLATELET VOLUME (BEAKER) (test twre=471) 10.6 fL 9.4-12.4 NUCLEATED RED BLOOD CELLS (BEAKER) (test 1 /100 WBC 0-0 rqir=806) POCT-GLUCOSE [id number] 23:40:00 Test Item Value Reference Range Comments POC-GLUCOSE METER (BEAKER) 151 mg/dL 70-110 : TESTED AT [facility] [address] [facility] (test ewrd=7156) [facility], [address]: Cosmetic Sales Advisor/Contact Lens Molder [phone] for JUAN M LYNCH (CELLAVISION MANUAL DIFF)2019-04-02 19:13:00 Test Item Value Reference Range Comments NEUTROPHILS - REL (CELLAVISION)(BEAKER) (test 82 % jokn=4673) LYMPHOCYTES - REL (CELLAVISION)(BEAKER) (test 5 % jfsu=8546) MONOCYTES - REL (CELLAVISION)(BEAKER) (test 4 % qrci=6750) BASOPHILS - REL (CELLAVISION)(BEAKER) (test 1 % hhuz=3400) METAMYELOCYTES - REL (CELLAVISION)(BEAKER) (test 1 % 0-0 aumy=7329) MYELOCYTES - REL (CELLAVISION)(BEAKER) (test 1 % 0-0 kbtv=4539) PROMYELOCYTES - REL (CELLAVSION)(BEAKER) (test 1 % 0-0 tjfb=4497) BANDS - REL (CELLAVISION)(BEAKER) (test 5 % 0-10 indw=6368) NEUTROPHILS - ABS (CELLAVISION)(BEAKER) (test 7.38 K/ul 1.78-5.38 ezsw=7288) LYMPHOCYTES - ABS (CELLAVISION)(BEAKER) (test 0.45 K/ul 1.32-3.57 opni=3716) MONOCYTES - ABS (CELLAVISION)(BEAKER) (test 0.36 K/uL 0.30-0.82 ukpf=8604) BASOPHILS - ABS (CELLAVISION)(BEAKER) (test 0.09 K/uL 0.01-0.08 rqra=0953) METAMYELOCYTES - ABS (CELLAVISION)(BEAKER) (test 0.09 K/uL 0.00-0.00 athg=1284) MYELOCYTES-ABS (CELLAVISION)(BEAKER) (test 0.09 K/uL 0.00-0.00 ezya=4350) PROMYELOCYTES - ABS (CELLAVISION)(BEAKER) (test 0.09 K/uL 0.00-0.00 mqwd=9138) BANDS - ABS (CELLAVISION)(BEAKER) (test 0.45 K/uL 0.00-0.80 fons=0716) TOTAL COUNTED (BEAKER) (test hkap=6390) 100 PLT MORPHOLOGY (BEAKER) (test ddym=518) Normal SMUDGE CELLS (BEAKER) (test ousy=9622) Present POLYCHROMATOPHILLIC RBCS(BEAKER) (test fepp=113) 3+ many ANISOCYTOSIS (BEAKER) (test bacj=126) 3+ many MACROCYTES (BEAKER) (test gipl=909) 3+ many POIKILOCYTES (BEAKER) (test zijt=433) 2+ moderate ROULEAUX (BEAKER) (test omlz=312) 2+ moderate SPHEROCYTES (BEAKER) (test gxpq=764) 1+ few ELLIPTOCYTES (BEAKER) (test rjke=575) 1+ few OVALOCYTES (BEAKER) (test kcvi=157) 1+ few MEG CELLS (BEAKER) (test dgcv=639) 2+ moderate ARTIFACT (CELLAVISION)(BEAKER) (test fqpv=5118) Present PLATELET CONCENTRATION (CELLAVISION)(BEAKER) Decreased (test nrtn=8700) Received comment: User comments: Slide comments:CBC W/PLT COUNT & AUTO [id number] 19:12:00 Test Item Value Reference Range Comments WHITE BLOOD CELL COUNT (BEAKER) (test tcaw=911) 9.0 K/ L 3.5-10.5 RED BLOOD CELL COUNT (BEAKER) (test giaa=326) 2.60 M/ L 4.63-6.08 HEMOGLOBIN (BEAKER) (test kfuf=462) 8.0 GM/DL 13.7-17.5 HEMATOCRIT (BEAKER) (test bzld=559) 23.7 % 40.1-51.0 MEAN CORPUSCULAR VOLUME (BEAKER) (test cvmm=440) 91.2 fL 79.0-92.2 MEAN CORPUSCULAR HEMOGLOBIN (BEAKER) (test 30.8 pg 25.7-32.2 unoe=317) MEAN CORPUSCULAR HEMOGLOBIN CONC (BEAKER) (test 33.8 GM/DL 32.3-36.5 wbmz=574) RED CELL DISTRIBUTION WIDTH (BEAKER) (test 21.0 % 11.6-14.4 gomt=997) PLATELET COUNT (BEAKER) (test edsd=220) 55 K/CU MM 150-450 MEAN PLATELET VOLUME (BEAKER) (test qvzo=950) 10.0 fL 9.4-12.4 NUCLEATED RED BLOOD CELLS (BEAKER) (test 0 /100 WBC 0-0 ggpn=864) [id number] 18:52:00 Test Item Value Reference Range Comments FIBRINOGEN LEVEL (BEAKER) (test wmay=750) 157 mg/dl 225-434 PT/[id number] 18:51:00 Test Item Value Reference Range Comments PROTIME (BEAKER) (test smnp=309) 24.1 seconds 11.9-14.2 INR (BEAKER) (test zpwg=781) 2.3 <=5.9 PARTIAL THROMBOPLASTIN TIME (BEAKER) (test 41.8 seconds 22.5-36.0 lvzr=357) Effective 10/09/2018: PT Reference Range ChangeNew: 11.9-14.2 Previous: 11.7- 14.7RECOMMENDED COUMADIN/WARFARIN INR THERAPY RANGESSTANDARD DOSE: 2.0-3.0 Includes: PROPHYLAXIS for venous thrombosis, systemic embolization; TREATMENT for venous thrombosis and/or pulmonary embolus.HIGH RISK: Target INR is2.5-3.5 for patients wiht mechanical heart valves.POCT-GLUCOSE [id number] 17:28:00 Test Item Value Reference Range Comments POC-GLUCOSE METER (BEAKER) 132 mg/dL 70-110 : Notified RN/MD: TESTED AT (test gkcz=9072) [facility] [address] [facility], [address]: Cosmetic Sales Advisor/Contact Lens Molder LJ=[phone] for AMRITA DIA CBC W/PLT COUNT & AUTO [id number] 15:58:00 Test Item Value Reference Range Comments WHITE BLOOD CELL COUNT (BEAKER) (test uumf=037) 8.3 K/ L 3.5-10.5 RED BLOOD CELL COUNT (BEAKER) (test ybjz=014) 2.45 M/ L 4.63-6.08 HEMOGLOBIN (BEAKER) (test nows=843) 7.6 GM/DL 13.7-17.5 HEMATOCRIT (BEAKER) (test rjzm=810) 22.3 % 40.1-51.0 MEAN CORPUSCULAR VOLUME (BEAKER) (test frsj=201) 91.0 fL 79.0-92.2 MEAN CORPUSCULAR HEMOGLOBIN (BEAKER) (test 31.0 pg 25.7-32.2 whyz=513) MEAN CORPUSCULAR HEMOGLOBIN CONC (BEAKER) (test 34.1 GM/DL 32.3-36.5 nyup=138) RED CELL DISTRIBUTION WIDTH (BEAKER) (test 20.5 % 11.6-14.4 nphi=087) PLATELET COUNT (BEAKER) (test xyvb=781) 50 K/CU MM 150-450 MEAN PLATELET VOLUME (BEAKER) (test iofy=648) 9.9 fL 9.4-12.4 NUCLEATED RED BLOOD CELLS (BEAKER) (test 0 /100 WBC 0-0 kvhc=291) (CELLAVISION MANUAL DIFF)2019-04-02 15:58:00 Test Item Value Reference Range Comments NEUTROPHILS - REL (CELLAVISION)(BEAKER) (test 91 % bkhf=4254) LYMPHOCYTES - REL (CELLAVISION)(BEAKER) (test 3 % wndl=2367) MONOCYTES - REL (CELLAVISION)(BEAKER) (test 4 % ryiu=6382) MYELOCYTES - REL (CELLAVISION)(BEAKER) (test 1 % 0-0 mqcg=2926) BANDS - REL (CELLAVISION)(BEAKER) (test dfvo=3628) 1 % 0-10 NEUTROPHILS - ABS (CELLAVISION)(BEAKER) (test 7.55 K/ul 1.78-5.38 eekz=0184) LYMPHOCYTES - ABS (CELLAVISION)(BEAKER) (test 0.25 K/ul 1.32-3.57 dvmd=9241) MONOCYTES - ABS (CELLAVISION)(BEAKER) (test 0.33 K/uL 0.30-0.82 ggsx=4114) MYELOCYTES-ABS (CELLAVISION)(BEAKER) (test 0.08 K/uL 0.00-0.00 uqpn=4387) BANDS - ABS (CELLAVISION)(BEAKER) (test ccuq=4171) 0.08 K/uL 0.00-0.80 TOTAL COUNTED (BEAKER) (test kcay=5260) 100 SMUDGE CELLS (BEAKER) (test iytl=9498) Present GIANT PLATELETS (BEAKER) (test ypxd=123) Present POLYCHROMATOPHILLIC RBCS(BEAKER) (test zqrs=536) 1+ few HYPOCHROMIA (BEAKER) (test wqlq=148) 1+ few ANISOCYTOSIS (BEAKER) (test wsaw=700) 1+ few POIKILOCYTES (BEAKER) (test vlfn=067) 3+ many ARTIFACT (CELLAVISION)(BEAKER) (test hkbf=1067) Present PLATELET CONCENTRATION (CELLAVISION)(BEAKER) (test Decreased kyoz=1157) Received comment: User comments: Slide comments:ANG, EMBOLIZATION, EXTENSIVE - [id number] 14:31:00Reason for exam:->GI bleedFINAL REPORT TIPS revision. History: Upper GI bleed. History of bleeding esophageal varices. Modality: Fluoroscopy Sedation: None Anesthesia: Two percent Lidocaine without epinephrine. Approach: Right internal jugular vein Estimated blood loss:& lt; 5 cc. Specimen: None. leveling machine operator: Rafael Evangelista MD. Buckle Frame Shaper: None. Fluoroscopy Time: 17.6 min. Reference Air Kerma (Ka, r): 575 mGy. Technique: Informed written consent was obtained. Discussion of risks, benefits , and alternatives were made with the patient's family number. The patient's family member expressed understanding and agreed to proceed. A universal timeout was performed prior to starting the procedure. All elements maximal sterile barrier technique was utilized for this procedure, including utilization of sterile scrub solution for skin prep, a large sterile sheet to cover the areas of the patient that were not prepped, and hand hygiene, mask, head covering, and sterile gown for performing radiologist and scrub technologist. Ultrasound demonstrated a patent and compressible right internal jugular vein. Under direct ultrasound guidance a 21-gauge micropuncture needle was used to access the right internal jugular vein. An ultrasound image was saved into PACS. The access was scaled up in the standard fashion and a 8 [place] vascular sheath was placed. An MPA catheterand Glidewire were then used to select the existing TIPS stent and the catheter was advanced into the main portal vein. A portal venogram was performed which demonstrated that the TIPS stent was patent. No filling of gastric or esophageal varices was noted. A pressure gradient was then measured. Direct portal pressure measured at 22 mmHg and the radiocarpal pressure measured at 10 mmHg for a gradientof 12 mmHg. Given the patient's recent upper gastrointestinal bleed decision was made to dilate the TIPS stent in order to reduce the portal pressure. A Martin guidewire was inserted through the MPA catheter which was then removed over the guidewire. A 10 mm x 4 cm [place] balloon was then used to perform balloon dilatation of the existing TIPS stent to 10 mm. After balloon dilatation of the stent wasperformed pressures were measured again. Post angioplasty the direct portal pressure measured at 19 mmHg in the right atrial pressure measured at age 11 mmHg for a gradient of 8 mmHg. The catheters balloons, and sheath were then removed and hemostasis was achieved with manual compression. The patient tolerated the procedure well. Impression: Successful TIPS revision with balloon angioplasty of the existing stent to 10 mm. The portosystemic gradient was reducedfrom 12 mmHg to 8 mmHg. Signed: Rafael Evangelista MDReport Verified Date/Time: 04/02/2019 14:31 :49 Reading Location: [facility] P048 Angio Body Reading Room [id number] 12:58 :00 Test Item Value Reference Range Comments FIBRINOGEN LEVEL (BENJAMINAKER) (test gsff=041) 175 mg/dl 225-434 [id number] 12:58:00 Test Item Value Reference Range Comments PROTIME (BEAKER) (test bzsr=477) 24.1 seconds 11.9-14.2 INR (BEAKER) (test sebl=770) 2.3 <=5.9 PARTIAL THROMBOPLASTIN TIME (BEAKER) (test 42.4 seconds 22.5-36.0 hyod=215) Effective 10/09/2018: PT Reference Range ChangeNew: 11.9-14.2 Previous: 11.7- 14.7RECOMMENDED COUMADIN/WARFARIN INR THERAPY RANGESSTANDARD DOSE: 2.0-3.0 Includes: PROPHYLAXIS for venous thrombosis, systemic embolization; TREATMENT for venous thrombosis and/or pulmonary embolus.HIGH RISK: Target INR is2.5-3.5 for patients wiht mechanical heart valves.POCT-GLUCOSE [id number] 11:50:00 Test Item Value Reference Range Comments POC-GLUCOSE METER (BEAKER) 140 mg/dL 70-110 : Notified RN/MD: TESTED AT (test qebl=8385) [facility] [address] [place] [address], [address]: Cosmetic Sales Advisor/Contact Lens Molder KM=[phone] for AMRITA DIA RAD, CHEST, 1 VIEW, NON [id number] 09:08:00Reason for exam:->intubated, acute GI bleedShould this be performed at the bedside?->YesFINAL REPORT RAD, CHEST, 1 VIEW, NON DEPT INDICATION: intubated, acute GI bleed COMPARISON: Prior day's exam FINDINGS: Portable frontal view of the chest. IMPRESSION: Support Lines: ET tube tip is + cm superior to the mackenzie. Feeding tube descends below the diaphragm.Lungs and pleura: Coarse interstitial opacities are unchanged. Trace left effusion. No dez airspace edema or focal pneumonia. No pneumothorax.Heart and mediastinum: Stable contours. Stable surgical changes.Additional findings: None. Signed: Rosaura Eason Verified Date/Time: 04/02/2019 09:08:15 Reading Location: [facility] Radiology Reading Room COMPREHENSIVE METABOLIC [id number] 07:51 :00 Test Item Value Reference Range Comments TOTAL PROTEIN (BEAKER) 4.5 gm/dL 6.0-8.3 (test ruco=264) ALBUMIN (BEAKER) (test 1.7 g/dL 3.5-5.0 fovr=8182) ALKALINE PHOSPHATASE 92 U/L 40-150 (BEAKER) (test sdnv=660) BILIRUBIN TOTAL (BEAKER) 6.2 mg/dL 0.2-1.2 (test xrzb=145) SODIUM (BEAKER) (test 144 meq/L 136-145 anld=108) POTASSIUM (BEAKER) (test 3.7 meq/L 3.5-5.1 lodl=188) CHLORIDE (BEAKER) (test 123 meq/L 98-107 hkcp=981) CO2 (BEAKER) (test 18 meq/L 22-29 nngk=900) BLOOD UREA NITROGEN 31 mg/dL 7-21 (BEAKER) (test nole=453) CREATININE (BEAKER) (test 1.03 mg/dL 0.57-1.25 hqxh=635) GLUCOSE RANDOM (BEAKER) 155 mg/dL 70-105 (test kphe=687) CALCIUM (BEAKER) (test 8.2 mg/dL 8.4-10.2 eidz=882) AST (SGOT) (BEAKER) (test 32 U/L 5-34 cgzc=317) ALT (SGPT) (BEAKER) (test 17 U/L 6-55 xtap=809) EGFR (BEAKER) (test 76 mL/min/1.73 sq m ESTIMATED GFR IS NOT spdr=8456) ACCURATE CREATININE CLEARANCE IN PREDICTING GLOMERULAR FILTRATION RATE. ESTIMATED GFR IS NOT APPLICABLE FOR DIALYSIS PATIENTS. Specimen moderately [id number] 07:30:00 Test Item Value Reference Range Comments PHOSPHORUS (BEAKER) (test wszp=910) 3.8 mg/dL 2.3-4.7 [id number] 07:30:00 Test Item Value Reference Range Comments MAGNESIUM (BEAKER) (test qsgi=235) 1.9 mg/dL 1.6-2.6 CBC (HEMOGRAM ONLY)2019-04-02 07:06:00 Test Item Value Reference Range Comments WHITE BLOOD CELL COUNT (BEAKER) (test ydnq=508) 8.3 K/ L 3.5-10.5 RED BLOOD CELL COUNT (BEAKER) (test rucu=046) 2.45 M/ L 4.63-6.08 HEMOGLOBIN (BEAKER) (test hfua=979) 7.7 GM/DL 13.7-17.5 HEMATOCRIT (BEAKER) (test pvcl=161) 22.2 % 40.1-51.0 MEAN CORPUSCULAR VOLUME (BEAKER) (test qnhd=204) 90.6 fL 79.0-92.2 MEAN CORPUSCULAR HEMOGLOBIN (BEAKER) (test 31.4 pg 25.7-32.2 pjvp=006) MEAN CORPUSCULAR HEMOGLOBIN CONC (BEAKER) (test 34.7 GM/DL 32.3-36.5 cwtv=241) RED CELL DISTRIBUTION WIDTH (BEAKER) (test 20.7 % 11.6-14.4 mcol=161) PLATELET COUNT (BEAKER) (test myom=523) 54 K/CU MM 150-450 MEAN PLATELET VOLUME (BEAKER) (test hqfn=948) 10.8 fL 9.4-12.4 NUCLEATED RED BLOOD CELLS (BEAKER) (test 0 /100 WBC 0-0 ijqo=891) [id number] 06:59:00 Test Item Value Reference Range Comments FIBRINOGEN LEVEL (BEAKER) (test mjel=913) 175 mg/dl 225-434 PT/[id number] 06:59:00 Test Item Value Reference Range Comments PROTIME (BEAKER) (test lpuq=565) 23.5 seconds 11.9-14.2 INR (BEAKER) (test xwya=897) 2.2 <=5.9 PARTIAL THROMBOPLASTIN TIME (BEAKER) (test 42.7 seconds 22.5-36.0 farn=963) Effective 10/09/2018: PT Reference Range ChangeNew: 11.9-14.2 Previous: 11.7- 14.7RECOMMENDED COUMADIN/WARFARIN INR THERAPY RANGESSTANDARD DOSE: 2.0-3.0 Includes: PROPHYLAXIS for venous thrombosis, systemic embolization; TREATMENT for venous thrombosis and/or pulmonary embolus.HIGH RISK: Target INR is2.5-3.5 for patients wiht mechanical heart valves.BLOOD GAS, [id number] 06:52:00 Test Item Value Reference Range Comments PH ARTERIAL (BEAKER) (test lvua=332) 7.42 7.35-7.45 PCO2 ARTERIAL (BEAKER) (test cwbq=504) 28 mmHg 35-45 PO2 ARTERIAL (BEAKER) (test jvxr=756) 162 mmHg 80-90 O2 SATURATION ARTERIAL (BEAKER) (test byez=300) 99.2 % 96.0-97.0 HCO3 ARTERIAL (BEAKER) (test eaog=397) 18 mmol/L 21-29 BASE EXCESS ARTERIAL (BEAKER) (test jdrk=528) -6.0 mmol/L -2.0-3.0 PATIENT TEMPERATURE (BEAKER) (test vrde=3702) 36.5 C FIO2 (BEAKER) (test grus=7449) 50.0 % [id number] 01:42:00 Test Item Value Reference Range Comments PROTIME (BEAKER) (test qavo=397) 22.9 seconds 11.9-14.2 INR (BEAKER) (test bhej=439) 2.2 <=5.9 PARTIAL THROMBOPLASTIN TIME (BEAKER) (test 43.3 seconds 22.5-36.0 qouk=549) Effective 10/09/2018: PT Reference Range ChangeNew: 11.9-14.2 Previous: 11.7- 14.7RECOMMENDED COUMADIN/WARFARIN INR THERAPY RANGESSTANDARD DOSE: 2.0-3.0 Includes: PROPHYLAXIS for venous thrombosis, systemic embolization; TREATMENT for venous thrombosis and/or pulmonary embolus.HIGH RISK: Target INR is2.5-3.5 for patients wiht mechanical heart valves.CBC (HEMOGRAM ONLY)2019-04-02 01:32:00 Test Item Value Reference Range Comments WHITE BLOOD CELL COUNT (BEAKER) (test chbn=005) 12.6 K/ L 3.5-10.5 RED BLOOD CELL COUNT (BEAKER) (test mrrm=508) 2.22 M/ L 4.63-6.08 HEMOGLOBIN (BEAKER) (test svmq=677) 6.9 GM/DL 13.7-17.5 HEMATOCRIT (BEAKER) (test xmia=166) 20.5 % 40.1-51.0 MEAN CORPUSCULAR VOLUME (BEAKER) (test xyin=625) 92.3 fL 79.0-92.2 MEAN CORPUSCULAR HEMOGLOBIN (BEAKER) (test 31.1 pg 25.7-32.2 niwj=945) MEAN CORPUSCULAR HEMOGLOBIN CONC (BEAKER) (test 33.7 GM/DL 32.3-36.5 tkgu=213) RED CELL DISTRIBUTION WIDTH (BEAKER) (test 21.5 % 11.6-14.4 ffbi=265) PLATELET COUNT (BEAKER) (test cfik=549) 65 K/CU MM 150-450 MEAN PLATELET VOLUME (BEAKER) (test xucv=462) 10.6 fL 9.4-12.4 NUCLEATED RED BLOOD CELLS (BEAKER) (test 0 /100 WBC 0-0 ysot=740) RAD, ABDOMEN/KUB, 1 VIEW [id number] 00:10:00Reason for exam:->NGT placementFINAL REPORT CLINICAL HISTORY: NGT placement TECHNIQUE: RAD, ABDOMEN/KUB, 1 VIEW AP COMPARISON: Plain radiograph the abdomen dated 03/02/2019. FINDINGS: Weighted tip feeding tubewith tip overlying the first portion the duodenum. Vascular stent the right upper quadrant. Endoscopy clips over the mediastinum. Nonobstructive bowel gas pattern without distended loops of bowel. Incompletely visualized catheter tubing over the right aspect of the pelvis, correlate clinically. Small right and moderate left pleural effusion incompletely evaluated on this examination. Signed: Zaina Mckeon [facility] Verified Date/Time: 04/02/2019 00:10:25 [id number] 18:23:00 Test Item Value Reference Range Comments FIBRINOGEN LEVEL (BEAKER) (test wuyk=261) 149 mg/dl 225-434 [id number] 18:18:00 Test Item Value Reference Range Comments PROTIME (BEAKER) (test jxgi=048) 23.2 seconds 11.9-14.2 INR (BEAKER) (test muhc=478) 2.2 <=5.9 PARTIAL THROMBOPLASTIN TIME (BEAKER) (test 43.4 seconds 22.5-36.0 imfl=269) Effective 10/09/2018: PT Reference Range ChangeNew: 11.9-14.2 Previous: 11.7- 14.7RECOMMENDED COUMADIN/WARFARIN INR THERAPY RANGESSTANDARD DOSE: 2.0-3.0 Includes: PROPHYLAXIS for venous thrombosis, systemic embolization; TREATMENT for venous thrombosis and/or pulmonary embolus.HIGH RISK: Target INR is2.5-3.5 for patients wiht mechanical heart valves.[id number] 16:43:00 Test Item Value Reference Range Comments PROTIME (BEAKER) (test iqkz=184) 23.2 seconds 11.9-14.2 INR (BEAKER) (test ehhu=111) 2.2 <=5.9 PARTIAL THROMBOPLASTIN TIME (BEAKER) (test 43.9 seconds 22.5-36.0 vjih=459) Effective 10/09/2018: PT Reference Range ChangeNew: 11.9-14.2 Previous: 11.7- 14.7RECOMMENDED COUMADIN/WARFARIN INR THERAPY RANGESSTANDARD DOSE: 2.0-3.0 Includes: PROPHYLAXIS for venous thrombosis, systemic embolization; TREATMENT for venous thrombosis and/or pulmonary embolus.HIGH RISK: Target INR is2.5-3.5 for patients wiht mechanical heart valves.CBC (HEMOGRAM ONLY)2019-04-01 14:50:00 Test Item Value Reference Range Comments WHITE BLOOD CELL COUNT (BEAKER) (test jmkp=950) 11.4 K/ L 3.5-10.5 RED BLOOD CELL COUNT (BEAKER) (test nukz=166) 2.10 M/ L 4.63-6.08 HEMOGLOBIN (BEAKER) (test vrpp=663) 6.5 GM/DL 13.7-17.5 HEMATOCRIT (BEAKER) (test shii=102) 19.0 % 40.1-51.0 MEAN CORPUSCULAR VOLUME (BEAKER) (test fmcv=984) 90.5 fL 79.0-92.2 MEAN CORPUSCULAR HEMOGLOBIN (BEAKER) (test 31.0 pg 25.7-32.2 wbyg=016) MEAN CORPUSCULAR HEMOGLOBIN CONC (BEAKER) (test 34.2 GM/DL 32.3-36.5 leiw=266) RED CELL DISTRIBUTION WIDTH (BEAKER) (test 21.6 % 11.6-14.4 gisc=385) PLATELET COUNT (BEAKER) (test krqj=666) 70 K/CU MM 150-450 MEAN PLATELET VOLUME (BEAKER) (test mxpf=988) 10.1 fL 9.4-12.4 NUCLEATED RED BLOOD CELLS (BEAKER) (test 0 /100 WBC 0-0 cidc=167) [id number] 12:10:00 Test Item Value Reference Range Comments PHOSPHORUS (BEAKER) (test fnjn=650) 4.4 mg/dL 2.3-4.7 RAD, CHEST, 1 VIEW, NON [id number] 08:57:00Reason for exam:-> intubatedShould this be performed at the bedside?->YesFINAL REPORT RAD, CHEST, 1 VIEW, NON DEPT INDICATION: intubated COMPARISON: Prior day's exam FINDINGS: Portable frontal view of the chest. IMPRESSION: Support Lines: ET tube tip is 4 cm superior to the mackenzie. Lungs and pleura: Coarse interstitial opacities are unchanged. No dez airspace edema or focal pneumonia. No pneumothorax.Heart and mediastinum: Stable contours. Stable surgical changes.Additional findings: None. Signed: Rosaura Eason MDReport Verified Date/Time: 04/01/2019 08:57:33 Reading Location: [facility] Radiology Reading Room BLOOD GAS, [id number] 08:05:00 Test Item Value Reference Range Comments PH ARTERIAL (BEAKER) (test kbae=858) 7.44 7.35-7.45 PCO2 ARTERIAL (BEAKER) (test eqns=228) 25 mmHg 35-45 PO2 ARTERIAL (BEAKER) (test kkse=446) 131 mmHg 80-90 O2 SATURATION ARTERIAL (BEAKER) (test dxej=663) 98.8 % 96.0-97.0 HCO3 ARTERIAL (BEAKER) (test ezgz=772) 16 mmol/L 21-29 BASE EXCESS ARTERIAL (BEAKER) (test jhto=879) -6.9 mmol/L -2.0-3.0 PATIENT TEMPERATURE (BEAKER) (test vesl=7800) 37.0 C FIO2 (BEAKER) (test zstn=4507) 40.0 % CALCIUM, [id number] 08:03:00 Test Item Value Reference Range Comments CALCIUM IONIZED (BEAKER) (test mmpr=784) 1.14 mmol/L 1.12-1.27 PH, BLOOD (BEAKER) (test vofu=7509) 7.44 [id number] 07:08:00 Test Item Value Reference Range Comments FIBRINOGEN LEVEL (BEAKER) (test ixyy=690) 141 mg/dl 225-434 COMPREHENSIVE METABOLIC [id number] 07:03:00 Test Item Value Reference Range Comments TOTAL PROTEIN (BEAKER) 4.2 gm/dL 6.0-8.3 (test lvli=597) ALBUMIN (BEAKER) (test 1.5 g/dL 3.5-5.0 qple=8870) ALKALINE PHOSPHATASE 99 U/L 40-150 (BEAKER) (test hdof=379) BILIRUBIN TOTAL (BEAKER) 8.4 mg/dL 0.2-1.2 (test iyql=529) SODIUM (BEAKER) (test 141 meq/L 136-145 wwra=846) POTASSIUM (BEAKER) (test 4.0 meq/L 3.5-5.1 uoeb=130) CHLORIDE (BEAKER) (test 121 meq/L 98-107 talt=559) CO2 (BEAKER) (test 17 meq/L 22-29 tken=422) BLOOD UREA NITROGEN 30 mg/dL 7-21 (BEAKER) (test hlgi=138) CREATININE (BEAKER) (test 1.20 mg/dL 0.57-1.25 irbn=125) GLUCOSE RANDOM (BEAKER) 169 mg/dL 70-105 (test qsux=262) CALCIUM (BEAKER) (test 7.3 mg/dL 8.4-10.2 ypwl=506) AST (SGOT) (BEAKER) (test 36 U/L 5-34 jmub=320) ALT (SGPT) (BEAKER) (test 17 U/L 6-55 rzbh=970) EGFR (BEAKER) (test 64 mL/min/1.73 sq m ESTIMATED GFR IS NOT ertk=7469) ACCURATE CREATININE CLEARANCE IN PREDICTING GLOMERULAR FILTRATION RATE. ESTIMATED GFR IS NOT APPLICABLE FOR DIALYSIS PATIENTS. Specimen moderately [id number] 06:58:00 Test Item Value Reference Range Comments MAGNESIUM (BEAKER) (test xvav=460) 1.4 mg/dL 1.6-2.6 CBC (HEMOGRAM ONLY)2019-04-01 06:50:00 Test Item Value Reference Range Comments WHITE BLOOD CELL COUNT 9.9 K/ L 3.5-10.5 (BEAKER) (test xdrl=460) RED BLOOD CELL COUNT (BEAKER) 1.99 M/ L 4.63-6.08 (test tmtu=444) HEMOGLOBIN (BEAKER) (test 6.5 GM/DL 13.7-17.5 bkno=041) HEMATOCRIT (BEAKER) (test 18.6 % 40.1-51.0 kxkf=333) MEAN CORPUSCULAR VOLUME 93.5 fL 79.0-92.2 (BEAKER) (test zvfy=851) MEAN CORPUSCULAR HEMOGLOBIN 32.7 pg 25.7-32.2 (BEAKER) (test nkem=307) MEAN CORPUSCULAR HEMOGLOBIN 34.9 GM/DL 32.3-36.5 CONC (BEAKER) (test torg=228) RED CELL DISTRIBUTION WIDTH 20.5 % 11.6-14.4 (BEAKER) (test hrjd=301) PLATELET COUNT (BEAKER) (test 70 K/CU MM 150-450 Discordant result compares qnpi=135) with previous; clinical correlation requires.Post transfusion MEAN PLATELET VOLUME (BEAKER) 10.9 fL 9.4-12.4 (test txgp=626) NUCLEATED RED BLOOD CELLS 0 /100 WBC 0-0 (BEAKER) (test btqc=767) [id number] 03:29:00 Test Item Value Reference Range Comments PROTIME (BEAKER) (test zelb=706) 24.4 seconds 11.9-14.2 INR (BEAKER) (test pdrk=001) 2.3 <=5.9 PARTIAL THROMBOPLASTIN TIME (BEAKER) (test 42.6 seconds 22.5-36.0 mlea=791) Effective 10/09/2018: PT Reference Range ChangeNew: 11.9-14.2 Previous: 11.7- 14.7RECOMMENDED COUMADIN/WARFARIN INR THERAPY RANGESSTANDARD DOSE: 2.0-3.0 Includes: PROPHYLAXIS for venous thrombosis, systemic embolization; TREATMENT for venous thrombosis and/or pulmonary embolus.HIGH RISK: Target INR is2.5-3.5 for patients wiht mechanical heart valves.CBC (HEMOGRAM ONLY)2019-04-01 03:08:00 Test Item Value Reference Range Comments WHITE BLOOD CELL COUNT (BEAKER) (test prmc=895) 9.7 K/ L 3.5-10.5 RED BLOOD CELL COUNT (BEAKER) (test tabf=918) 2.27 M/ L 4.63-6.08 HEMOGLOBIN (BEAKER) (test jlzn=572) 7.2 GM/DL 13.7-17.5 HEMATOCRIT (BEAKER) (test uzyd=391) 21.6 % 40.1-51.0 MEAN CORPUSCULAR VOLUME (BEAKER) (test eexh=984) 95.2 fL 79.0-92.2 MEAN CORPUSCULAR HEMOGLOBIN (BEAKER) (test 31.7 pg 25.7-32.2 yyii=739) MEAN CORPUSCULAR HEMOGLOBIN CONC (BEAKER) (test 33.3 GM/DL 32.3-36.5 vpdo=360) RED CELL DISTRIBUTION WIDTH (BEAKER) (test 20.3 % 11.6-14.4 pxyi=941) PLATELET COUNT (BEAKER) (test lbgf=045) 45 K/CU MM 150-450 MEAN PLATELET VOLUME (BEAKER) (test cchg=495) 11.0 fL 9.4-12.4 NUCLEATED RED BLOOD CELLS (BEAKER) (test 0 /100 WBC 0-0 ffwq=229) COMPREHENSIVE METABOLIC [id number] 17:54:00 Test Item Value Reference Range Comments TOTAL PROTEIN (BEAKER) 4.4 gm/dL 6.0-8.3 (test ilty=623) ALBUMIN (BEAKER) (test 1.6 g/dL 3.5-5.0 cpme=3193) ALKALINE PHOSPHATASE 130 U/L 40-150 (BEAKER) (test ncqv=005) BILIRUBIN TOTAL (BEAKER) 8.0 mg/dL 0.2-1.2 (test sitk=379) SODIUM (BEAKER) (test 137 meq/L 136-145 shqa=751) POTASSIUM (BEAKER) (test 4.0 meq/L 3.5-5.1 bwtz=892) CHLORIDE (BEAKER) (test 117 meq/L 98-107 suug=134) CO2 (BEAKER) (test 17 meq/L 22-29 oqgn=368) BLOOD UREA NITROGEN 26 mg/dL 7-21 (BEAKER) (test smtj=217) CREATININE (BEAKER) (test 1.39 mg/dL 0.57-1.25 dbtt=134) GLUCOSE RANDOM (BEAKER) 115 mg/dL 70-105 (test vkao=936) CALCIUM (BEAKER) (test 7.1 mg/dL 8.4-10.2 hfyn=701) AST (SGOT) (BEAKER) (test 45 U/L 5-34 cauy=779) ALT (SGPT) (BEAKER) (test 17 U/L 6-55 lvlb=740) EGFR (BEAKER) (test 54 mL/min/1.73 sq m ESTIMATED GFR IS NOT ogdx=3387) ACCURATE CREATININE CLEARANCE IN PREDICTING GLOMERULAR FILTRATION RATE. ESTIMATED GFR IS NOT APPLICABLE FOR DIALYSIS PATIENTS. Specimen moderately [id number] 17:46:00 Test Item Value Reference Range Comments FIBRINOGEN LEVEL (BEAKER) (test rhli=244) 109 mg/dl 225-434 LACTIC ACID, [id number] 17:44:00 Test Item Value Reference Range Comments LACTATE BLOOD VENOUS (2) (BEAKER) (test 1.0 mmol/L 0.5-2.2 wozl=4716) Specimen moderately ictericPT/[id number] 17:41:00 Test Item Value Reference Range Comments PROTIME (BEAKER) (test zari=725) 25.9 seconds 11.9-14.2 INR (BEAKER) (test dahr=792) 2.5 <=5.9 PARTIAL THROMBOPLASTIN TIME (BEAKER) (test 53.6 seconds 22.5-36.0 xtej=040) Effective 10/09/2018: PT Reference Range ChangeNew: 11.9-14.2 Previous: 11.7- 14.7RECOMMENDED COUMADIN/WARFARIN INR THERAPY RANGESSTANDARD DOSE: 2.0-3.0 Includes: PROPHYLAXIS for venous thrombosis, systemic embolization; TREATMENT for venous thrombosis and/or pulmonary embolus.HIGH RISK: Target INR is2.5-3.5 for patients wiht mechanical heart valves.CBC (HEMOGRAM ONLY)2019-03-31 17:32:00 Test Item Value Reference Range Comments WHITE BLOOD CELL COUNT (BEAKER) (test dybv=623) 9.1 K/ L 3.5-10.5 RED BLOOD CELL COUNT (BEAKER) (test ozjl=704) 2.05 M/ L 4.63-6.08 HEMOGLOBIN (BEAKER) (test gtvi=666) 6.6 GM/DL 13.7-17.5 HEMATOCRIT (BEAKER) (test bmnb=178) 19.8 % 40.1-51.0 MEAN CORPUSCULAR VOLUME (BEAKER) (test rvyp=624) 96.6 fL 79.0-92.2 MEAN CORPUSCULAR HEMOGLOBIN (BEAKER) (test 32.2 pg 25.7-32.2 meiu=054) MEAN CORPUSCULAR HEMOGLOBIN CONC (BEAKER) (test 33.3 GM/DL 32.3-36.5 etvk=050) RED CELL DISTRIBUTION WIDTH (BEAKER) (test 21.3 % 11.6-14.4 ekpl=668) PLATELET COUNT (BEAKER) (test ciga=806) 50 K/CU MM 150-450 MEAN PLATELET VOLUME (BEAKER) (test upsp=466) 11.2 fL 9.4-12.4 NUCLEATED RED BLOOD CELLS (BEAKER) (test 0 /100 WBC 0-0 bbis=838) CALCIUM, [id number] 17:25:00 Test Item Value Reference Range Comments CALCIUM IONIZED (BEAKER) (test wkcm=470) 1.05 mmol/L 1.12-1.27 PH, BLOOD (BEAKER) (test ulos=9364) 7.41 CT, CTA [id number] 15:06:00FINAL REPORT TECHNIQUE : CTA of the abdomen and pelvis WITHOUT and WITH intravenous contrast and WITHOUT oral contrast. Dose modulation, iterative reconstruction, and/or weight- based adjustment of the mA/kV was utilized to reduce the radiation dose to as low as reasonably achievable. INDICATION: 53-year-old man with gastrointestinal bleeding. COMPARISON: Abdomen CT 03/12/2019. FINDINGS: LOWER THORAX: Small left pleural effusion with adjacent relaxation atelectasis. HEPATOBILIARY: Cirrhosis. No suspicious hepatic lesion. Unchanged 0.8 x 1.2 cm hypoenhancing structure in segment IV/VIII. The gallbladder is distended and measures 5.7 cm in transverse diameter. Thickened gallbladder wall. No biliary ductal dilatation.SPLEEN: No splenomegaly.PANCREAS: No focal masses or ductal dilatation. ADRENALS: No adrenal nodules.KIDNEYS/URETERS: No hydronephrosis, stones, or solid mass lesions.PELVIC ORGANS/BLADDER: The bladder is decompressed by a Dawson catheter. PERITONEUM/RETROPERITONEUM: Trace ascites with mesenteric edema. No free air.LYMPH NODES: No lymphadenopathy.VESSELS: Right femoral venous catheter terminates in the right common iliac vein. Portal system and TIPS stent are patent. Persistent tubular hypodensity distal to the extent in segment VII may represent thrombosed branch of the right hepatic vein. Atherosclerotic vascular calcifications without aneurysm. GI TRACT: Noevidence of active contrast extravasation into the gastrointestinal tract. No distention or wall thickening. Normal appendix. Small amount of fluid in the distal esophagus, which may be seen in the setting of gastroesophageal reflux. BONES AND SOFT TISSUES: Degenerative changes of the visualized spine. Soft tissues are unremarkable. IMPRESSION:No evidence of active gastrointestinal bleeding. Cirrhosis. No suspicious liver lesion. Unchanged indeterminate hypoenhancing structure in segment IV/VIII. Abdomen CT or MRI with and without intravenous contrast (liver protocol) may be obtained in 6 months for reassessment. Patent portal system and TIPS stent. Trace ascites. Signed: Kathy Chaney MDReportVerified Date/Time: 03/31/2019 15:06:40 Reading Location: [facility] C013Y CT Body Reading Room [id number] 13:39:00 Test Item Value Reference Range Comments CORTISOL, TOTAL (BEAKER) (test auzi=5184) 3.7 ug/dL 3.7-19.4 [id number] 13:16:00 Test Item Value Reference Range Comments ETHANOL (BEAKER) (test bsxf=791) < mg/dL <=10 [id number] 13:11:00 Test Item Value Reference Range Comments AMMONIA (BEAKER) (test lytd=416) 242 mol/L 18-72 COMPREHENSIVE METABOLIC [id number] 09:19:00 Test Item Value Reference Range Comments TOTAL PROTEIN (BEAKER) 4.7 gm/dL 6.0-8.3 (test yqhy=550) ALBUMIN (BEAKER) (test 1.5 g/dL 3.5-5.0 muqi=7413) ALKALINE PHOSPHATASE 155 U/L 40-150 (BEAKER) (test wqja=398) BILIRUBIN TOTAL (BEAKER) 5.3 mg/dL 0.2-1.2 (test xjna=978) SODIUM (BEAKER) (test 135 meq/L 136-145 qkrc=794) POTASSIUM (BEAKER) (test 4.3 meq/L 3.5-5.1 pjoa=939) CHLORIDE (BEAKER) (test 115 meq/L 98-107 nimr=596) CO2 (BEAKER) (test 19 meq/L 22-29 dlwj=765) BLOOD UREA NITROGEN 18 mg/dL 7-21 (BEAKER) (test anwk=649) CREATININE (BEAKER) (test 1.15 mg/dL 0.57-1.25 epxt=466) GLUCOSE RANDOM (BEAKER) 138 mg/dL 70-105 (test lnln=026) CALCIUM (BEAKER) (test 7.2 mg/dL 8.4-10.2 xgmp=351) AST (SGOT) (BEAKER) (test 49 U/L 5-34 kozn=102) ALT (SGPT) (BEAKER) (test 19 U/L 6-55 ciwp=831) EGFR (BEAKER) (test 67 mL/min/1.73 sq m ESTIMATED GFR IS NOT gfbe=8099) ACCURATE CREATININE CLEARANCE IN PREDICTING GLOMERULAR FILTRATION RATE. ESTIMATED GFR IS NOT APPLICABLE FOR DIALYSIS PATIENTS. Specimen moderately ictericLACTIC ACID, [id number] 08:03:00 Test Item Value Reference Range Comments LACTATE BLOOD VENOUS (2) 1.1 mmol/L 0.5-2.2 Specimen slightly hemolyzed (BEAKER) (test pdgi=6941) Specimen moderately [id number] 07:58:00 Test Item Value Reference Range Comments PROCALCITONIN (BEAKER) (test yfim=1582) 0.26 ng/mL <0.05 SEPSIS RISK (ng/mL)Low: 0.05-0.50Intermediate: 0.51-2.00High: & gt;=2.01RAD, CHEST, 1 VIEW, NON [id number] 07:38:00Reason for exam:-> intubated, vent placementShould this be performed at the bedside?->YesFINAL REPORT RAD, CHEST, 1 VIEW, NON DEPT INDICATION: intubated , vent placement COMPARISON: February 18, 2019 FINDINGS: Portable frontal view of the chest. IMPRESSION: Support Lines: ET tube tip is 4 cm superior to the mackenzie. Lungs and pleura: Coarse interstitial opacities areunchanged. No dez airspace edema or focal pneumonia. No pneumothorax.Heart and mediastinum: Stablecontours. Additional findings: None. Signed: Rosaura Eason MDReport Verified Date/Time: 03/31/2019 07:38:31 Reading Location: [facility] Radiology Reading Room CBC (HEMOGRAM ONLY)2019-03-31 07:29:00 Test Item Value Reference Range Comments WHITE BLOOD CELL COUNT (BEAKER) (test iokk=724) 5.3 K/ L 3.5-10.5 RED BLOOD CELL COUNT (BEAKER) (test qvbv=191) 1.61 M/ L 4.63-6.08 HEMOGLOBIN (BEAKER) (test mngt=170) 5.5 GM/DL 13.7-17.5 HEMATOCRIT (BEAKER) (test oovb=762) 17.0 % 40.1-51.0 MEAN CORPUSCULAR VOLUME (BEAKER) (test fpex=441) 105.6 fL 79.0-92.2 MEAN CORPUSCULAR HEMOGLOBIN (BEAKER) (test 34.2 pg 25.7-32.2 gbdc=030) MEAN CORPUSCULAR HEMOGLOBIN CONC (BEAKER) (test 32.4 GM/DL 32.3-36.5 smrr=449) RED CELL DISTRIBUTION WIDTH (BEAKER) (test 19.7 % 11.6-14.4 ewgr=785) PLATELET COUNT (BEAKER) (test gzrk=800) 47 K/CU MM 150-450 MEAN PLATELET VOLUME (BEAKER) (test vgoz=650) 11.0 fL 9.4-12.4 NUCLEATED RED BLOOD CELLS (BEAKER) (test 0 /100 WBC 0-0 zfcw=865) [id number] 07:20:00 Test Item Value Reference Range Comments FIBRINOGEN LEVEL (BEAKER) (test cbqr=232) 97 mg/dl 225-434 [id number] 07:13:00 Test Item Value Reference Range Comments PARTIAL THROMBOPLASTIN TIME (BEAKER) (test 54.0 seconds 22.5-36.0 cnvh=316) PROTHROMBIN [id number] 07:12:00 Test Item Value Reference Range Comments PROTIME (BEAKER) (test dydk=013) 27.4 seconds 11.9-14.2 INR (BEAKER) (test ffoh=108) 2.7 <=5.9 Effective 10/09/2018: PT Reference Range ChangeNew: 11.9-14.2 Previous: 11.7- 14.7RECOMMENDED COUMADIN/WARFARIN INR THERAPY RANGESSTANDARD DOSE: 2.0-3.0 Includes: PROPHYLAXIS for venous thrombosis, systemic embolization; TREATMENT for venous thrombosis and/or pulmonary embolus.HIGH RISK: Target INR is2.5-3.5 for patients wiht mechanical heart valves.HEPATIC FUNCTION [id number] 07:06 :00 Test Item Value Reference Range Comments TOTAL PROTEIN (BEAKER) (test vpau=949) 6.5 gm/dL 6.0-8.3 ALBUMIN (BEAKER) (test dwwp=9097) 1.9 g/dL 3.5-5.0 BILIRUBIN TOTAL (BEAKER) (test xtyv=851) 5.6 mg/dL 0.2-1.2 BILIRUBIN DIRECT (BEAKER) (test jxss=710) 3.4 mg/dL 0.1-0.5 ALKALINE PHOSPHATASE (BEAKER) (test tksv=395) 162 U/L 40-150 AST (SGOT) (BEAKER) (test tpdx=227) 37 U/L 5-34 ALT (SGPT) (BEAKER) (test tuts=383) 14 U/L 6-55 Specimen moderately ictericBASIC METABOLIC [id number] 06:58:00 Test Item Value Reference Range Comments SODIUM (BEAKER) (test 138 meq/L 136-145 hrcw=562) POTASSIUM (BEAKER) (test 3.5 meq/L 3.5-5.1 rzrs=305) CHLORIDE (BEAKER) (test 111 meq/L 98-107 ekht=059) CO2 (BEAKER) (test 25 meq/L 22-29 omyk=054) BLOOD UREA NITROGEN 6 mg/dL 7-21 (BEAKER) (test qyom=776) CREATININE (BEAKER) (test 0.82 mg/dL 0.57-1.25 tzcf=991) GLUCOSE RANDOM (BEAKER) 72 mg/dL 70-105 (test iqzv=582) CALCIUM (BEAKER) (test 8.3 mg/dL 8.4-10.2 clsm=246) EGFR (BEAKER) (test 99 mL/min/1.73 sq m ESTIMATED GFR IS NOT iima=0385) ACCURATE CREATININE CLEARANCE IN PREDICTING GLOMERULAR FILTRATION RATE. ESTIMATED GFR IS NOT APPLICABLE FOR DIALYSIS PATIENTS. Specimen moderately ictericPROTHROMBIN TIME/[id number] 05:16:00 Test Item Value Reference Range Comments PROTIME (BEAKER) (test ovub=751) 30.7 seconds 11.9-14.2 INR (BEAKER) (test lnlj=897) 3.1 <=5.9 Effective 10/09/2018: PT Reference Range ChangeNew: 11.9-14.2 Previous: 11.7- 14.7RECOMMENDED COUMADIN/WARFARIN INR THERAPY RANGESSTANDARD DOSE: 2.0-3.0 Includes: PROPHYLAXIS for venous thrombosis, systemic embolization; TREATMENT for venous thrombosis and/or pulmonary embolus.HIGH RISK: Target INR is2.5-3.5 for patients wiht mechanical heart valves.CBC W/PLT COUNT & AUTO [id number] 05:11:00 Test Item Value Reference Range Comments WHITE BLOOD CELL COUNT (BEAKER) (test umsy=417) 3.8 K/ L 3.5-10.5 RED BLOOD CELL COUNT (BEAKER) (test jfoh=035) 2.26 M/ L 4.63-6.08 HEMOGLOBIN (BEAKER) (test wgum=986) 8.1 GM/DL 13.7-17.5 HEMATOCRIT (BEAKER) (test dije=014) 25.5 % 40.1-51.0 MEAN CORPUSCULAR VOLUME (BEAKER) (test amdo=056) 112.8 fL 79.0-92.2 MEAN CORPUSCULAR HEMOGLOBIN (BEAKER) (test 35.8 pg 25.7-32.2 nhtm=446) MEAN CORPUSCULAR HEMOGLOBIN CONC (BEAKER) (test 31.8 GM/DL 32.3-36.5 ddnc=810) RED CELL DISTRIBUTION WIDTH (BEAKER) (test 19.6 % 11.6-14.4 nzdq=277) PLATELET COUNT (BEAKER) (test ohze=862) 45 K/CU MM 150-450 MEAN PLATELET VOLUME (BEAKER) (test xqfm=282) 11.5 fL 9.4-12.4 NUCLEATED RED BLOOD CELLS (BEAKER) (test 0 /100 WBC 0-0 wqng=728) NEUTROPHILS RELATIVE PERCENT (BEAKER) (test 53 % szfo=272) LYMPHOCYTES RELATIVE PERCENT (BEAKER) (test 24 % pads=642) MONOCYTES RELATIVE PERCENT (BEAKER) (test 16 % dsfh=882) EOSINOPHILS RELATIVE PERCENT (BEAKER) (test 5 % xsbh=760) BASOPHILS RELATIVE PERCENT (BEAKER) (test 1 % duau=309) NEUTROPHILS ABSOLUTE COUNT (BEAKER) (test 1.99 K/ L 1.78-5.38 ldqd=815) LYMPHOCYTES ABSOLUTE COUNT (BEAKER) (test 0.92 K/ L 1.32-3.57 ikns=228) MONOCYTES ABSOLUTE COUNT (BEAKER) (test gnal=935) 0.60 K/ L 0.30-0.82 EOSINOPHILS ABSOLUTE COUNT (BEAKER) (test 0.19 K/ L 0.04-0.54 zxgt=680) BASOPHILS ABSOLUTE COUNT (BEAKER) (test vosx=619) 0.05 K/ L 0.01-0.08 IMMATURE GRANULOCYTES-RELATIVE PERCENT (BEAKER) 1 % 0-1 (test eudj=4782) CBC W/PLT COUNT & AUTO [id number] 08:45:00 Test Item Value Reference Range Comments WHITE BLOOD CELL COUNT (BEAKER) (test kcoi=260) 3.2 K/ L 3.5-10.5 RED BLOOD CELL COUNT (BEAKER) (test xngm=672) 2.15 M/ L 4.63-6.08 HEMOGLOBIN (BEAKER) (test wjpz=101) 7.6 GM/DL 13.7-17.5 HEMATOCRIT (BEAKER) (test hepn=122) 24.0 % 40.1-51.0 MEAN CORPUSCULAR VOLUME (BEAKER) (test acbw=239) 111.6 fL 79.0-92.2 MEAN CORPUSCULAR HEMOGLOBIN (BEAKER) (test 35.3 pg 25.7-32.2 stxg=436) MEAN CORPUSCULAR HEMOGLOBIN CONC (BEAKER) (test 31.7 GM/DL 32.3-36.5 fqun=939) RED CELL DISTRIBUTION WIDTH (BEAKER) (test 19.7 % 11.6-14.4 pquu=729) PLATELET COUNT (BEAKER) (test iqxu=607) 43 K/CU MM 150-450 MEAN PLATELET VOLUME (BEAKER) (test uhgv=718) 11.0 fL 9.4-12.4 NUCLEATED RED BLOOD CELLS (BEAKER) (test 0 /100 WBC 0-0 sxvf=418) (CELLAVISION MANUAL DIFF)2019-03-18 08:45:00 Test Item Value Reference Range Comments NEUTROPHILS - REL (CELLAVISION)(BEAKER) (test 72 % vlhe=0785) LYMPHOCYTES - REL (CELLAVISION)(BEAKER) (test 13 % gbkx=0326) MONOCYTES - REL (CELLAVISION)(BEAKER) (test 5 % yvec=2683) EOSINOPHILS - REL (CELLAVISION)(BEAKER) (test 5 % qoql=7437) BASOPHILS - REL (CELLAVISION)(BEAKER) (test 1 % xltj=9483) METAMYELOCYTES - REL (CELLAVISION)(BEAKER) (test 2 % 0-0 eljf=1038) BANDS - REL (CELLAVISION)(BEAKER) (test 2 % 0-10 hyqw=3250) NEUTROPHILS - ABS (CELLAVISION)(BEAKER) (test 2.30 K/ul 1.78-5.38 rkug=3978) LYMPHOCYTES - ABS (CELLAVISION)(BEAKER) (test 0.42 K/ul 1.32-3.57 fpwt=3340) MONOCYTES - ABS (CELLAVISION)(BEAKER) (test 0.16 K/uL 0.30-0.82 ovzo=6681) EOSINOPHILS - ABS (CELLAVISION)(BEAKER) (test 0.16 K/uL 0.04-0.54 ovks=5138) BASOPHILS - ABS (CELLAVISION)(BEAKER) (test 0.03 K/uL 0.01-0.08 vipu=6725) METAMYELOCYTES - ABS (CELLAVISION)(BEAKER) (test 0.06 K/uL 0.00-0.00 skhu=3518) BANDS - ABS (CELLAVISION)(BEAKER) (test 0.06 K/uL 0.00-0.80 ctec=4456) TOTAL COUNTED (BEAKER) (test xjym=5269) 100 WBC MORPHOLOGY (BEAKER) (test cakf=066) Normal PLT MORPHOLOGY (BEAKER) (test nvvt=421) Normal POLYCHROMATOPHILLIC RBCS(BEAKER) (test cckh=202) 1+ few ANISOCYTOSIS (BEAKER) (test ynqn=705) 2+ moderate MICROCYTES (BEAKER) (test ggwj=109) 1+ few MACROCYTES (BEAKER) (test mvys=784) 2+ moderate POIKILOCYTES (BEAKER) (test ilip=146) 1+ few SCHISTOCYTES (BEAKER) (test ctff=564) 1+ few OVALOCYTES (BEAKER) (test luva=240) 1+ few MEG CELLS (BEAKER) (test wude=543) 1+ few ARTIFACT (CELLAVISION)(BEAKER) (test forb=3533) Present PLATELET CONCENTRATION (CELLAVISION)(BEAKER) Decreased (test cqyx=5764) Received comment: User comments: Slide comments:COMPREHENSIVE METABOLIC [id number] 07:20:00 Test Item Value Reference Range Comments TOTAL PROTEIN (BEAKER) 6.6 gm/dL 6.0-8.3 (test sdft=381) ALBUMIN (BEAKER) (test 1.8 g/dL 3.5-5.0 covy=1595) ALKALINE PHOSPHATASE 158 U/L 40-150 (BEAKER) (test btsr=288) BILIRUBIN TOTAL (BEAKER) 5.9 mg/dL 0.2-1.2 (test dmuy=419) SODIUM (BEAKER) (test 138 meq/L 136-145 gjbx=121) POTASSIUM (BEAKER) (test 3.4 meq/L 3.5-5.1 zbju=100) CHLORIDE (BEAKER) (test 110 meq/L 98-107 hlhs=308) CO2 (BEAKER) (test 25 meq/L 22-29 dcai=922) BLOOD UREA NITROGEN 5 mg/dL 7-21 (BEAKER) (test sxjk=486) CREATININE (BEAKER) (test 0.73 mg/dL 0.57-1.25 ypgp=940) GLUCOSE RANDOM (BEAKER) 101 mg/dL 70-105 (test agft=093) CALCIUM (BEAKER) (test 8.3 mg/dL 8.4-10.2 qjlq=968) AST (SGOT) (BEAKER) (test 41 U/L 5-34 ipdy=538) ALT (SGPT) (BEAKER) (test 15 U/L 6-55 rwos=469) EGFR (BEAKER) (test 113 mL/min/1.73 sq ESTIMATED GFR IS NOT eehe=2341) m ACCURATE CREATININE CLEARANCE IN PREDICTING GLOMERULAR FILTRATION RATE. ESTIMATED GFR IS NOT APPLICABLE FOR DIALYSIS PATIENTS. Specimen moderately ictericHEPATIC FUNCTION [id number] 07:20:00 Test Item Value Reference Range Comments TOTAL PROTEIN (BEAKER) (test ggrb=309) 6.6 gm/dL 6.0-8.3 ALBUMIN (BEAKER) (test cknt=0637) 1.8 g/dL 3.5-5.0 BILIRUBIN TOTAL (BEAKER) (test xdnt=256) 5.9 mg/dL 0.2-1.2 BILIRUBIN DIRECT (BEAKER) (test hyvq=051) 3.4 mg/dL 0.1-0.5 ALKALINE PHOSPHATASE (BEAKER) (test bhtb=762) 158 U/L 40-150 AST (SGOT) (BEAKER) (test fhnt=992) 41 U/L 5-34 ALT (SGPT) (BEAKER) (test gkxu=061) 15 U/L 6-55 Specimen moderately ictericPROTHROMBIN [id number] 05:24:00 Test Item Value Reference Range Comments PROTIME (BEAKER) (test rgdg=581) 31.5 seconds 11.9-14.2 INR (BEAKER) (test zvwq=357) 3.3 <=5.9 Effective 10/09/2018: PT Reference Range ChangeNew: 11.9-14.2 Previous: 11.7- 14.7RECOMMENDED COUMADIN/WARFARIN INR THERAPY RANGESSTANDARD DOSE: 2.0-3.0 Includes: PROPHYLAXIS for venous thrombosis, systemic embolization; TREATMENT for venous thrombosis and/or pulmonary embolus.HIGH RISK: Target INR is2.5-3.5 for patients wiht mechanical heart valves.BLOOD [id number] 19:00:00 Test Item Value Reference Range Comments CULTURE (BEAKER) (test weqq=2081) No growth in 5 days BLOOD [id number] 19:00:00 Test Item Value Reference Range Comments CULTURE (BEAKER) (test ufeg=0899) No growth in 5 days POCT-GLUCOSE [id number] 08:15:00 Test Item Value Reference Range Comments POC-GLUCOSE METER (BEAKER) 87 mg/dL 70-110 : TESTED AT [facility] [address] [facility] (test khnj=8342) [facility], [address]: Cosmetic Sales Advisor/Contact [employer] RM=[id number] for JAYJAY RO KELL [id number] 06:26:00 Test Item Value Reference Range Comments AMMONIA (BEAKER) (test wuah=174) 93 mol/L 18-72 HEPATIC FUNCTION [id number] 05:50:00 Test Item Value Reference Range Comments TOTAL PROTEIN (BEAKER) (test lnpb=909) 6.6 gm/dL 6.0-8.3 ALBUMIN (BEAKER) (test afjf=7382) 1.9 g/dL 3.5-5.0 BILIRUBIN TOTAL (BEAKER) (test mjom=309) 6.3 mg/dL 0.2-1.2 BILIRUBIN DIRECT (BEAKER) (test psyw=593) 3.6 mg/dL 0.1-0.5 ALKALINE PHOSPHATASE (BEAKER) (test nnch=865) 134 U/L 40-150 AST (SGOT) (BEAKER) (test aszt=960) 41 U/L 5-34 ALT (SGPT) (BEAKER) (test genn=597) 17 U/L 6-55 Specimen moderately [id number] 05:49:00 Test Item Value Reference Range Comments MAGNESIUM (BEAKER) (test ghsg=804) 1.4 mg/dL 1.6-2.6 CBC W/PLT COUNT & AUTO [id number] 05:38:00 Test Item Value Reference Range Comments WHITE BLOOD CELL COUNT (BEAKER) (test debs=583) 2.9 K/ L 3.5-10.5 RED BLOOD CELL COUNT (BEAKER) (test lpqz=861) 2.17 M/ L 4.63-6.08 HEMOGLOBIN (BEAKER) (test cyar=946) 7.8 GM/DL 13.7-17.5 HEMATOCRIT (BEAKER) (test csww=014) 23.9 % 40.1-51.0 MEAN CORPUSCULAR VOLUME (BEAKER) (test iudt=442) 110.1 fL 79.0-92.2 MEAN CORPUSCULAR HEMOGLOBIN (BEAKER) (test 35.9 pg 25.7-32.2 rmli=539) MEAN CORPUSCULAR HEMOGLOBIN CONC (BEAKER) (test 32.6 GM/DL 32.3-36.5 hxeu=858) RED CELL DISTRIBUTION WIDTH (BEAKER) (test 20.0 % 11.6-14.4 prof=228) PLATELET COUNT (BEAKER) (test wbwy=277) 54 K/CU MM 150-450 MEAN PLATELET VOLUME (BEAKER) (test ieda=982) 11.8 fL 9.4-12.4 NUCLEATED RED BLOOD CELLS (BEAKER) (test 0 /100 WBC 0-0 yihs=872) NEUTROPHILS RELATIVE PERCENT (BEAKER) (test 59 % bkpo=302) LYMPHOCYTES RELATIVE PERCENT (BEAKER) (test 21 % mgso=681) MONOCYTES RELATIVE PERCENT (BEAKER) (test 12 % cytp=470) EOSINOPHILS RELATIVE PERCENT (BEAKER) (test 6 % pevu=836) BASOPHILS RELATIVE PERCENT (BEAKER) (test 1 % kgzs=581) NEUTROPHILS ABSOLUTE COUNT (BEAKER) (test 1.74 K/ L 1.78-5.38 faub=597) LYMPHOCYTES ABSOLUTE COUNT (BEAKER) (test 0.63 K/ L 1.32-3.57 qclg=890) MONOCYTES ABSOLUTE COUNT (BEAKER) (test xymx=225) 0.35 K/ L 0.30-0.82 EOSINOPHILS ABSOLUTE COUNT (BEAKER) (test 0.18 K/ L 0.04-0.54 mpqa=400) BASOPHILS ABSOLUTE COUNT (BEAKER) (test xrlw=285) 0.02 K/ L 0.01-0.08 IMMATURE GRANULOCYTES-RELATIVE PERCENT (BEAKER) 1 % 0-1 (test rryc=1971) PROTHROMBIN [id number] 05:08:00 Test Item Value Reference Range Comments PROTIME (BEAKER) (test wkyx=001) 27.4 seconds 11.9-14.2 INR (BEAKER) (test iczv=496) 2.7 <=5.9 Effective 10/09/2018: PT Reference Range ChangeNew: 11.9-14.2 Previous: 11.7- 14.7RECOMMENDED COUMADIN/WARFARIN INR THERAPY RANGESSTANDARD DOSE: 2.0-3.0 Includes: PROPHYLAXIS for venous thrombosis, systemic embolization; TREATMENT for venous thrombosis and/or pulmonary embolus.HIGH RISK: Target INR is2.5-3.5 for patients wiht mechanical heart valves.POCT-GLUCOSE [id number] 18:31:00 Test Item Value Reference Range Comments POC-GLUCOSE METER (BEAKER) 83 mg/dL 70-110 : TESTED AT [address] (test hdgq=7837) [facility], [address]: Cosmetic Sales Advisor/Contact Lens Molder [id number] for BROWN, JONATHAN POCT-GLUCOSE [id number] 18:30:00 Test Item Value Reference Range Comments POC-GLUCOSE METER (BEAKER) 151 mg/dL 70-110 : TESTED AT [address] (test asbw=3613) [facility], [address]: Cosmetic Sales Advisor/Contact Lens Molder [id number] for BROWN, JONATHAN POCT-GLUCOSE [id number] 18:29:00 Test Item Value Reference Range Comments POC-GLUCOSE METER (BEAKER) 129 mg/dL 70-110 : TESTED AT [address] (test icgh=8081) [facility], [address]: Cosmetic Sales Advisor/Contact Lens Molder [phone] for BROWN, JONATHAN BASIC METABOLIC [id number] 06:05:00 Test Item Value Reference Range Comments SODIUM (BEAKER) (test 137 meq/L 136-145 jgga=149) POTASSIUM (BEAKER) (test 3.3 meq/L 3.5-5.1 pvpf=612) CHLORIDE (BEAKER) (test 111 meq/L 98-107 ndxy=941) CO2 (BEAKER) (test 24 meq/L 22-29 dzms=174) BLOOD UREA NITROGEN 4 mg/dL 7-21 (BEAKER) (test ngqh=654) CREATININE (BEAKER) (test 0.80 mg/dL 0.57-1.25 jiwv=919) GLUCOSE RANDOM (BEAKER) 91 mg/dL 70-105 (test ezfx=380) CALCIUM (BEAKER) (test 8.5 mg/dL 8.4-10.2 ptcr=517) EGFR (BEAKER) (test 102 mL/min/1.73 sq m ESTIMATED GFR IS NOT mjzp=7838) ACCURATE CREATININE CLEARANCE IN PREDICTING GLOMERULAR FILTRATION RATE. ESTIMATED GFR IS NOT APPLICABLE FOR DIALYSIS PATIENTS. Specimen moderately ictericHEPATIC FUNCTION [id number] 06:05:00 Test Item Value Reference Range Comments TOTAL PROTEIN (BEAKER) (test shsf=479) 7.2 gm/dL 6.0-8.3 ALBUMIN (BEAKER) (test azjt=5942) 2.1 g/dL 3.5-5.0 BILIRUBIN TOTAL (BEAKER) (test apht=632) 7.3 mg/dL 0.2-1.2 BILIRUBIN DIRECT (BEAKER) (test lens=885) 4.0 mg/dL 0.1-0.5 ALKALINE PHOSPHATASE (BEAKER) (test ywvt=043) 144 U/L 40-150 AST (SGOT) (BEAKER) (test jceq=147) 44 U/L 5-34 ALT (SGPT) (BEAKER) (test soxn=789) 21 U/L 6-55 Specimen moderately ictericPROTHROMBIN [id number] 05:13:00 Test Item Value Reference Range Comments PROTIME (BEAKER) (test ngiq=080) 29.0 seconds 11.9-14.2 INR (BEAKER) (test zlkl=874) 2.9 <=5.9 Effective 10/09/2018: PT Reference Range ChangeNew: 11.9-14.2 Previous: 11.7- 14.7RECOMMENDED COUMADIN/WARFARIN INR THERAPY RANGESSTANDARD DOSE: 2.0-3.0 Includes: PROPHYLAXIS for venous thrombosis, systemic embolization; TREATMENT for venous thrombosis and/or pulmonary embolus.HIGH RISK: Target INR is2.5-3.5 for patients wiht mechanical heart valves.[id number] 05:09:00 Test Item Value Reference Range Comments AMMONIA (BEAKER) (test fsvl=002) 70 mol/L 18-72 CBC W/PLT COUNT & AUTO [id number] 05:02:00 Test Item Value Reference Range Comments WHITE BLOOD CELL COUNT (BEAKER) (test nhfh=905) 3.5 K/ L 3.5-10.5 RED BLOOD CELL COUNT (BEAKER) (test oiim=869) 2.17 M/ L 4.63-6.08 HEMOGLOBIN (BEAKER) (test xunx=173) 7.8 GM/DL 13.7-17.5 HEMATOCRIT (BEAKER) (test kzhv=030) 24.3 % 40.1-51.0 MEAN CORPUSCULAR VOLUME (BEAKER) (test bvfm=761) 112.0 fL 79.0-92.2 MEAN CORPUSCULAR HEMOGLOBIN (BEAKER) (test 35.9 pg 25.7-32.2 ioco=941) MEAN CORPUSCULAR HEMOGLOBIN CONC (BEAKER) (test 32.1 GM/DL 32.3-36.5 uwnb=768) RED CELL DISTRIBUTION WIDTH (BEAKER) (test 20.1 % 11.6-14.4 wmfq=656) PLATELET COUNT (BEAKER) (test cuji=644) 59 K/CU MM 150-450 MEAN PLATELET VOLUME (BEAKER) (test nffw=635) 10.6 fL 9.4-12.4 NUCLEATED RED BLOOD CELLS (BEAKER) (test 0 /100 WBC 0-0 qybb=502) NEUTROPHILS RELATIVE PERCENT (BEAKER) (test 61 % kawg=372) LYMPHOCYTES RELATIVE PERCENT (BEAKER) (test 22 % lluo=680) MONOCYTES RELATIVE PERCENT (BEAKER) (test 9 % knre=232) EOSINOPHILS RELATIVE PERCENT (BEAKER) (test 7 % xkso=796) BASOPHILS RELATIVE PERCENT (BEAKER) (test 1 % cqmz=886) NEUTROPHILS ABSOLUTE COUNT (BEAKER) (test 2.15 K/ L 1.78-5.38 khtc=548) LYMPHOCYTES ABSOLUTE COUNT (BEAKER) (test 0.77 K/ L 1.32-3.57 lhab=286) MONOCYTES ABSOLUTE COUNT (BEAKER) (test iugc=941) 0.30 K/ L 0.30-0.82 EOSINOPHILS ABSOLUTE COUNT (BEAKER) (test 0.24 K/ L 0.04-0.54 sdpk=659) BASOPHILS ABSOLUTE COUNT (BEAKER) (test blnb=309) 0.02 K/ L 0.01-0.08 IMMATURE GRANULOCYTES-RELATIVE PERCENT (BEAKER) 1 % 0-1 (test ytux=5552) POCT-GLUCOSE [id number] 21:25:00 Test Item Value Reference Range Comments POC-GLUCOSE METER (BEAKER) 95 mg/dL 70-110 : TESTED AT [address] (test uqyx=5462) [facility], [address]: Cosmetic Sales Advisor/Contact Lens Molder [phone] for Selina Connor POCT-GLUCOSE [id number] 12:47:00 Test Item Value Reference Range Comments POC-GLUCOSE METER (BEAKER) 139 mg/dL 70-110 : TESTED AT [address] (test vpzv=5996) [facility], [address]: Cosmetic Sales Advisor/Contact Lens Molder [id number] for JONATHAN PENA POCT-GLUCOSE [id number] 08:02:00 Test Item Value Reference Range Comments POC-GLUCOSE METER (BEAKER) 126 mg/dL 70-110 : TESTED AT [address] (test uoyg=2441) [facility], [address]: Cosmetic Sales Advisor/Contact Lens Molder [phone] for JONATHAN PENA [id number] 07:01:00 Test Item Value Reference Range Comments AMMONIA (BEAKER) (test mcsm=923) 72 mol/L 18-72 [id number] 06:39:00 Test Item Value Reference Range Comments PHOSPHORUS (BEAKER) (test jpnz=355) 2.8 mg/dL 2.3-4.7 [id number] 06:39:00 Test Item Value Reference Range Comments MAGNESIUM (BEAKER) (test lyen=650) 1.3 mg/dL 1.6-2.6 BASIC METABOLIC [id number] 06:39:00 Test Item Value Reference Range Comments SODIUM (BEAKER) (test 136 meq/L 136-145 mwws=472) POTASSIUM (BEAKER) (test 3.4 meq/L 3.5-5.1 oecr=041) CHLORIDE (BEAKER) (test 112 meq/L 98-107 owru=727) CO2 (BEAKER) (test 22 meq/L 22-29 fpdw=226) BLOOD UREA NITROGEN 4 mg/dL 7-21 (BEAKER) (test ndyl=780) CREATININE (BEAKER) (test 0.77 mg/dL 0.57-1.25 fjoz=482) GLUCOSE RANDOM (BEAKER) 82 mg/dL 70-105 (test nsbd=483) CALCIUM (BEAKER) (test 8.4 mg/dL 8.4-10.2 xpip=253) EGFR (BEAKER) (test 106 mL/min/1.73 sq m ESTIMATED GFR IS NOT lyic=2501) ACCURATE CREATININE CLEARANCE IN PREDICTING GLOMERULAR FILTRATION RATE. ESTIMATED GFR IS NOT APPLICABLE FOR DIALYSIS PATIENTS. Specimen moderately ictericHEPATIC FUNCTION [id number] 06:39:00 Test Item Value Reference Range Comments TOTAL PROTEIN (BEAKER) (test hqcl=092) 6.7 gm/dL 6.0-8.3 ALBUMIN (BEAKER) (test jduk=0130) 2.0 g/dL 3.5-5.0 BILIRUBIN TOTAL (BEAKER) (test gqoj=532) 6.5 mg/dL 0.2-1.2 BILIRUBIN DIRECT (BEAKER) (test xeqg=956) 3.9 mg/dL 0.1-0.5 ALKALINE PHOSPHATASE (BEAKER) (test koah=556) 144 U/L 40-150 AST (SGOT) (BEAKER) (test zoyu=804) 42 U/L 5-34 ALT (SGPT) (BEAKER) (test hpcs=889) 18 U/L 6-55 Specimen moderately ictericCBC W/PLT COUNT & AUTO [id number] 06: 03:00 Test Item Value Reference Range Comments WHITE BLOOD CELL COUNT (BEAKER) (test pngk=748) 2.9 K/ L 3.5-10.5 RED BLOOD CELL COUNT (BEAKER) (test jric=891) 2.07 M/ L 4.63-6.08 HEMOGLOBIN (BEAKER) (test nwgt=623) 7.5 GM/DL 13.7-17.5 HEMATOCRIT (BEAKER) (test hyda=531) 24.0 % 40.1-51.0 MEAN CORPUSCULAR VOLUME (BEAKER) (test aybf=702) 115.9 fL 79.0-92.2 MEAN CORPUSCULAR HEMOGLOBIN (BEAKER) (test 36.2 pg 25.7-32.2 vaio=925) MEAN CORPUSCULAR HEMOGLOBIN CONC (BEAKER) (test 31.3 GM/DL 32.3-36.5 alos=543) RED CELL DISTRIBUTION WIDTH (BEAKER) (test 20.7 % 11.6-14.4 erep=306) PLATELET COUNT (BEAKER) (test efcm=609) 45 K/CU MM 150-450 MEAN PLATELET VOLUME (BEAKER) (test zknm=829) 11.2 fL 9.4-12.4 NUCLEATED RED BLOOD CELLS (BEAKER) (test 0 /100 WBC 0-0 pbxa=604) NEUTROPHILS RELATIVE PERCENT (BEAKER) (test 62 % vggl=837) LYMPHOCYTES RELATIVE PERCENT (BEAKER) (test 22 % bxsv=417) MONOCYTES RELATIVE PERCENT (BEAKER) (test 8 % vvye=967) EOSINOPHILS RELATIVE PERCENT (BEAKER) (test 6 % anpt=104) BASOPHILS RELATIVE PERCENT (BEAKER) (test 1 % huft=359) NEUTROPHILS ABSOLUTE COUNT (BEAKER) (test 1.81 K/ L 1.78-5.38 ufwp=690) LYMPHOCYTES ABSOLUTE COUNT (BEAKER) (test 0.65 K/ L 1.32-3.57 ymry=349) MONOCYTES ABSOLUTE COUNT (BEAKER) (test vnmf=080) 0.24 K/ L 0.30-0.82 EOSINOPHILS ABSOLUTE COUNT (BEAKER) (test 0.16 K/ L 0.04-0.54 goyq=826) BASOPHILS ABSOLUTE COUNT (BEAKER) (test wvxo=282) 0.02 K/ L 0.01-0.08 IMMATURE GRANULOCYTES-RELATIVE PERCENT (BEAKER) 1 % 0-1 (test wksr=6175) PROTHROMBIN [id number] 06:03:00 Test Item Value Reference Range Comments PROTIME (BEAKER) (test azgc=666) 29.3 seconds 11.9-14.2 INR (BEAKER) (test bazn=655) 3.0 <=5.9 Effective 10/09/2018: PT Reference Range ChangeNew: 11.9-14.2 Previous: 11.7- 14.7RECOMMENDED COUMADIN/WARFARIN INR THERAPY RANGESSTANDARD DOSE: 2.0-3.0 Includes: PROPHYLAXIS for venous thrombosis, systemic embolization; TREATMENT for venous thrombosis and/or pulmonary embolus.HIGH RISK: Target INR is2.5-3.5 for patients wiht mechanical heart valves.POCT-GLUCOSE [id number] 22:09:00 Test Item Value Reference Range Comments POC-GLUCOSE METER (BEAKER) 114 mg/dL 70-110 : TESTED AT [facility] [address] [facility] (test yydd=4569) [facility], [address]: Cosmetic Sales Advisor/Contact Lens Molder [id number] for DEDRA MOTT POCT-GLUCOSE [id number] 17:55:00 Test Item Value Reference Range Comments POC-GLUCOSE METER (BEAKER) 98 mg/dL 70-110 : TESTED AT [address] (test ydga=8277) [facility], [address]: Cosmetic Sales Advisor/Contact Lens Molder [id number] for Jude Pires POCT-GLUCOSE [id number] 13:15:00 Test Item Value Reference Range Comments POC-GLUCOSE METER (BEAKER) 126 mg/dL 70-110 : TESTED AT [address] (test sjvh=2434) [facility], [address]: Cosmetic Sales Advisor/Contact Lens Molder [phone] for Jude Pires HEPATIC FUNCTION [id number] 06:55:00 Test Item Value Reference Range Comments TOTAL PROTEIN (BEAKER) (test fgzs=936) 6.6 gm/dL 6.0-8.3 ALBUMIN (BEAKER) (test oeln=7823) 1.9 g/dL 3.5-5.0 BILIRUBIN TOTAL (BEAKER) (test oazw=046) 6.5 mg/dL 0.2-1.2 BILIRUBIN DIRECT (BEAKER) (test zbgw=694) 4.0 mg/dL 0.1-0.5 ALKALINE PHOSPHATASE (BEAKER) (test gppm=743) 143 U/L 40-150 AST (SGOT) (BEAKER) (test xcet=203) 37 U/L 5-34 ALT (SGPT) (BEAKER) (test hhyd=039) 18 U/L 6-55 Specimen moderately ictericBASIC METABOLIC [id number] 06:52:00 Test Item Value Reference Range Comments SODIUM (BEAKER) (test 134 meq/L 136-145 baks=243) POTASSIUM (BEAKER) (test 3.3 meq/L 3.5-5.1 hknw=568) CHLORIDE (BEAKER) (test 112 meq/L 98-107 asbz=749) CO2 (BEAKER) (test 18 meq/L 22-29 erld=105) BLOOD UREA NITROGEN 4 mg/dL 7-21 (BEAKER) (test bkbq=881) CREATININE (BEAKER) (test 0.82 mg/dL 0.57-1.25 pbiy=502) GLUCOSE RANDOM (BEAKER) 122 mg/dL 70-105 (test xnwm=818) CALCIUM (BEAKER) (test 8.2 mg/dL 8.4-10.2 geli=690) EGFR (BEAKER) (test 99 mL/min/1.73 sq m ESTIMATED GFR IS NOT codi=9926) ACCURATE CREATININE CLEARANCE IN PREDICTING GLOMERULAR FILTRATION RATE. ESTIMATED GFR IS NOT APPLICABLE FOR DIALYSIS PATIENTS. Specimen moderately ictericCBC W/PLT COUNT & AUTO [id number] 05: 53:00 Test Item Value Reference Range Comments WHITE BLOOD CELL COUNT (BEAKER) (test kkyc=842) 3.2 K/ L 3.5-10.5 RED BLOOD CELL COUNT (BEAKER) (test ylqx=265) 2.07 M/ L 4.63-6.08 HEMOGLOBIN (BEAKER) (test wxai=922) 7.5 GM/DL 13.7-17.5 HEMATOCRIT (BEAKER) (test wwqo=707) 23.8 % 40.1-51.0 MEAN CORPUSCULAR VOLUME (BEAKER) (test sfqx=268) 115.0 fL 79.0-92.2 MEAN CORPUSCULAR HEMOGLOBIN (BEAKER) (test 36.2 pg 25.7-32.2 tajw=169) MEAN CORPUSCULAR HEMOGLOBIN CONC (BEAKER) (test 31.5 GM/DL 32.3-36.5 hywi=118) RED CELL DISTRIBUTION WIDTH (BEAKER) (test 21.3 % 11.6-14.4 rbtu=775) PLATELET COUNT (BEAKER) (test opfg=050) 50 K/CU MM 150-450 MEAN PLATELET VOLUME (BEAKER) (test iytn=663) 11.5 fL 9.4-12.4 NUCLEATED RED BLOOD CELLS (BEAKER) (test 0 /100 WBC 0-0 lsva=478) NEUTROPHILS RELATIVE PERCENT (BEAKER) (test 60 % khmr=215) LYMPHOCYTES RELATIVE PERCENT (BEAKER) (test 23 % lgnw=857) MONOCYTES RELATIVE PERCENT (BEAKER) (test 10 % riik=293) EOSINOPHILS RELATIVE PERCENT (BEAKER) (test 6 % jecr=442) BASOPHILS RELATIVE PERCENT (BEAKER) (test 1 % dauv=244) NEUTROPHILS ABSOLUTE COUNT (BEAKER) (test 1.94 K/ L 1.78-5.38 aski=411) LYMPHOCYTES ABSOLUTE COUNT (BEAKER) (test 0.73 K/ L 1.32-3.57 mufz=214) MONOCYTES ABSOLUTE COUNT (BEAKER) (test peow=052) 0.31 K/ L 0.30-0.82 EOSINOPHILS ABSOLUTE COUNT (BEAKER) (test 0.20 K/ L 0.04-0.54 bbrn=452) BASOPHILS ABSOLUTE COUNT (BEAKER) (test zitq=976) 0.02 K/ L 0.01-0.08 IMMATURE GRANULOCYTES-RELATIVE PERCENT (BEAKER) 1 % 0-1 (test eawr=5197) PROTHROMBIN [id number] 05:50:00 Test Item Value Reference Range Comments PROTIME (BEAKER) (test pzfc=423) 28.5 seconds 11.9-14.2 INR (BEAKER) (test ufpz=595) 2.9 <=5.9 Effective 10/09/2018: PT Reference Range ChangeNew: 11.9-14.2 Previous: 11.7- 14.7RECOMMENDED COUMADIN/WARFARIN INR THERAPY RANGESSTANDARD DOSE: 2.0-3.0 Includes: PROPHYLAXIS for venous thrombosis, systemic embolization; TREATMENT for venous thrombosis and/or pulmonary embolus.HIGH RISK: Target INR is2.5-3.5 for patients wiht mechanical heart valves.POCT-GLUCOSE [id number] 21:12:00 Test Item Value Reference Range Comments POC-GLUCOSE METER (BEAKER) 106 mg/dL 70-110 : TESTED AT [address] (test crey=2998) [facility], [address]: Cosmetic Sales Advisor/Contact Lens Molder [id number] for DEDRA MOTT HEPATIC FUNCTION [id number] 05:53:00 Test Item Value Reference Range Comments TOTAL PROTEIN (BEAKER) (test qpfv=500) 6.7 gm/dL 6.0-8.3 ALBUMIN (BEAKER) (test cpfq=2076) 2.0 g/dL 3.5-5.0 BILIRUBIN TOTAL (BEAKER) (test uydz=861) 7.6 mg/dL 0.2-1.2 BILIRUBIN DIRECT (BEAKER) (test yqiu=748) 4.5 mg/dL 0.1-0.5 ALKALINE PHOSPHATASE (BEAKER) (test grhk=177) 144 U/L 40-150 AST (SGOT) (BEAKER) (test hwyj=997) 42 U/L 5-34 ALT (SGPT) (BEAKER) (test heie=731) 21 U/L 6-55 Specimen moderately ictericPROTHROMBIN [id number] 05:37:00 Test Item Value Reference Range Comments PROTIME (BEAKER) (test xxwt=982) 28.5 seconds 11.9-14.2 INR (BEAKER) (test bokv=003) 2.9 <=5.9 Effective 10/09/2018: PT Reference Range ChangeNew: 11.9-14.2 Previous: 11.7- 14.7RECOMMENDED COUMADIN/WARFARIN INR THERAPY RANGESSTANDARD DOSE: 2.0-3.0 Includes: PROPHYLAXIS for venous thrombosis, systemic embolization; TREATMENT for venous thrombosis and/or pulmonary embolus.HIGH RISK: Target INR is2.5-3.5 for patients wiht mechanical heart valves.POCT-GLUCOSE [id number] 00:53:00 Test Item Value Reference Range Comments POC-GLUCOSE METER (FRANCISCO) 93 mg/dL 70-110 : TESTED AT [facility] [address] [place] [address] (test kzkb=3414) [facility], [address]: Cosmetic Sales Advisor/Contact Lens Molder [phone] for MURTAZA RM CT, ABDOMEN, [id number] 22:20:00FINAL REPORT ABDOMINAL CT DATED 03/12/2019 CLINICAL [...] MDReport Verified Date/Time: 03/12/2019 22:20:09 Reading Location: [address] Consult Reading Room Electronically signed by: CALIXTO DALTON M.D. on 03/12 10:20 PMPOCT-GLUCOSE [id number] 18:27:00 Test Item Value Reference Range Comments POC-GLUCOSE METER (BEAKER) 117 mg/dL 70-110 : TESTED AT [facility] [address] [facility] (test jezf=1923) [facility], [address]: Cosmetic Sales Advisor/Contact Lens Molder [phone] for RESHMA HOLCOMB URINALYSIS W/ REFLEX URINE [id number] 18:09:00 Test Item Value Reference Range Comments COLOR (BEAKER) (test kjhq=188) Yellow CLARITY (BEAKER) (test lemv=441) Clear SPECIFIC GRAVITY UA (BEAKER) (test zbib=869) 1.029 1.001-1.035 PH UA (BEAKER) (test uspl=979) 7.0 5.0-8.0 PROTEIN UA (BEAKER) (test zald=692) Negative Negative GLUCOSE UA (BEAKER) (test ompy=295) Negative Negative KETONES UA (BEAKER) (test jays=298) Negative Negative BILIRUBIN UA (BEAKER) (test pqya=909) Negative Negative BLOOD UA (BEAKER) (test dzab=143) Negative Negative NITRITE UA (BEAKER) (test ghds=755) Negative Negative LEUKOCYTE ESTERASE UA (BEAKER) (test pcym=133) Negative Negative UROBILINOGEN UA (BEAKER) (test vlss=313) 0.2 mg/dL 0.2-1.0 RBC UA (BEAKER) (test fbjl=128) 1 /HPF WBC UA (BEAKER) (test rtow=645) < /HPF SOURCE(BEAKER) (test xnas=5349) [id number] 16:03:00 Test Item Value Reference Range Comments POTASSIUM (BEAKER) (test fbfb=667) 3.9 meq/L 3.5-5.1 Check Serum Potassium level 2 hours after oral potassium replacement completed or 30 min after intravenous potassium replacement.[id number] 16:03:00 Test Item Value Reference Range Comments MAGNESIUM (BEAKER) (test laua=536) 1.8 mg/dL 1.6-2.6 Check Serum Potassium level 2 hours after oral potassium replacement completed or 30 min after intravenous potassium replacement.[id number] 11:43:00 Test Item Value Reference Range Comments POTASSIUM (BEAKER) (test vbeo=390) 2.6 meq/L 3.5-5.1 Check Serum Potassium level 2 hours after oral potassium replacement completed or 30 min after intravenous potassium replacement.[id number] 11:36:00 Test Item Value Reference Range Comments MAGNESIUM (BEAKER) (test mfkd=734) 1.3 mg/dL 1.6-2.6 Check Serum Potassium level 2 hours after oral potassium replacement completed or 30 min after intravenous potassium replacement.POCT-GLUCOSE [id number] 11:15:00 Test Item Value Reference Range Comments POC-GLUCOSE METER (BEAKER) 140 mg/dL 70-110 : TESTED AT [address] (test tzxd=1965) [facility], [address]: Cosmetic Sales Advisor/Contact Lens Molder [phone] for BURKE BLACK HEMOGLOBIN AND [id number] 11:12:00 Test Item Value Reference Range Comments HEMOGLOBIN (BEAKER) (test krjp=558) 7.2 GM/DL 13.7-17.5 HEMATOCRIT (BEAKER) (test ppbi=091) 23.0 % 40.1-51.0 BASIC METABOLIC [id number] 08:31:00 Test Item Value Reference Range Comments SODIUM (BEAKER) (test 139 meq/L 136-145 abin=481) POTASSIUM (BEAKER) (test 3.5 meq/L 3.5-5.1 wpmg=718) CHLORIDE (BEAKER) (test 117 meq/L 98-107 seln=781) CO2 (BEAKER) (test 19 meq/L 22-29 ypbe=431) BLOOD UREA NITROGEN 5 mg/dL 7-21 (BEAKER) (test hbgo=799) CREATININE (BEAKER) (test 0.89 mg/dL 0.57-1.25 vsxw=211) GLUCOSE RANDOM (BEAKER) 103 mg/dL 70-105 (test nvjx=177) CALCIUM (BEAKER) (test 8.3 mg/dL 8.4-10.2 mfjw=905) EGFR (BEAKER) (test 90 mL/min/1.73 sq m ESTIMATED GFR IS NOT twve=6969) ACCURATE CREATININE CLEARANCE IN PREDICTING GLOMERULAR FILTRATION RATE. ESTIMATED GFR IS NOT APPLICABLE FOR DIALYSIS PATIENTS. Specimen moderately [id number] 08:24:00 Test Item Value Reference Range Comments AMMONIA (BEAKER) (test otqv=636) 62 mol/L 18-72 POCT-GLUCOSE [id number] 08:05:00 Test Item Value Reference Range Comments POC-GLUCOSE METER (BEAKER) 86 mg/dL 70-110 : TESTED AT [address] (test jmnz=5733) [facility], [id number]: Cosmetic Sales Advisor/Contact Lens Molder [phone] for [place] CBC W/PLT COUNT & AUTO [id number] 06:12:00 Test Item Value Reference Range Comments WHITE BLOOD CELL COUNT (BEAKER) (test itzx=264) 3.3 K/ L 3.5-10.5 RED BLOOD CELL COUNT (BEAKER) (test pzzu=533) 2.16 M/ L 4.63-6.08 HEMOGLOBIN (BEAKER) (test ouwe=802) 7.7 GM/DL 13.7-17.5 HEMATOCRIT (BEAKER) (test qqtv=776) 24.2 % 40.1-51.0 MEAN CORPUSCULAR VOLUME (BEAKER) (test nnmr=746) 112.0 fL 79.0-92.2 MEAN CORPUSCULAR HEMOGLOBIN (BEAKER) (test 35.6 pg 25.7-32.2 yzku=996) MEAN CORPUSCULAR HEMOGLOBIN CONC (BEAKER) (test 31.8 GM/DL 32.3-36.5 cpko=531) RED CELL DISTRIBUTION WIDTH (BEAKER) (test 22.0 % 11.6-14.4 kvzy=900) PLATELET COUNT (BEAKER) (test ulyz=758) 58 K/CU MM 150-450 MEAN PLATELET VOLUME (BEAKER) (test fqal=830) 10.5 fL 9.4-12.4 NUCLEATED RED BLOOD CELLS (BEAKER) (test 0 /100 WBC 0-0 sgdq=321) NEUTROPHILS RELATIVE PERCENT (BEAKER) (test 53 % caoq=123) LYMPHOCYTES RELATIVE PERCENT (BEAKER) (test 25 % wfqy=931) MONOCYTES RELATIVE PERCENT (BEAKER) (test 12 % eiob=431) EOSINOPHILS RELATIVE PERCENT (BEAKER) (test 9 % jiwu=162) BASOPHILS RELATIVE PERCENT (BEAKER) (test 1 % iajv=758) NEUTROPHILS ABSOLUTE COUNT (BEAKER) (test 1.73 K/ L 1.78-5.38 ebvc=241) LYMPHOCYTES ABSOLUTE COUNT (BEAKER) (test 0.81 K/ L 1.32-3.57 vcay=120) MONOCYTES ABSOLUTE COUNT (BEAKER) (test hnjw=598) 0.38 K/ L 0.30-0.82 EOSINOPHILS ABSOLUTE COUNT (BEAKER) (test 0.30 K/ L 0.04-0.54 bfsb=312) BASOPHILS ABSOLUTE COUNT (BEAKER) (test xudp=370) 0.02 K/ L 0.01-0.08 IMMATURE GRANULOCYTES-RELATIVE PERCENT (BEAKER) 1 % 0-1 (test rlfw=4096) POCT-GLUCOSE [id number] 22:45:00 Test Item Value Reference Range Comments POC-GLUCOSE METER (BEAKER) 109 mg/dL 70-110 : TESTED AT [facility] [address] [facility] (test gfvg=2716) [facility], [address]: Cosmetic Sales Advisor/Contact Lens Molder [id number] for SAI KELLER [id number] 18:51:00 Test Item Value Reference Range Comments POTASSIUM (BEAKER) (test ntim=372) 3.1 meq/L 3.5-5.1 Check Serum Potassium level 2 hours after oral potassium replacement completed or 30 min after intravenous potassium replacement.[id number] 18:51:00 Test Item Value Reference Range Comments MAGNESIUM (BEAKER) (test efjm=045) 1.9 mg/dL 1.6-2.6 Check Serum Potassium level 2 hours after oral potassium replacement completed or 30 min after intravenous potassium replacement.HEMOGLOBIN AND [id number] 18:29:00 Test Item Value Reference Range Comments HEMOGLOBIN (BEAKER) (test jwty=879) 7.6 GM/DL 13.7-17.5 HEMATOCRIT (BEAKER) (test pzpc=968) 23.5 % 40.1-51.0 POCT-GLUCOSE [id number] 17:26:00 Test Item Value Reference Range Comments POC-GLUCOSE METER (BEAKER) 98 mg/dL 70-110 : TESTED AT [address] (test negt=7828) [facility], [facility]: Cosmetic Sales Advisor/Contact Lens Molder [phone] for [place] BLACK OCCULT BLOOD, [id number] 14:23:00 Test Item Value Reference Range Comments FECAL OCCULT BLOOD (BEAKER) (test lrsh=118) Positive Negative [id number] 12:26:00 Test Item Value Reference Range Comments AMMONIA (BEAKER) (test uxbg=638) 80 mol/L 18-72 POCT-GLUCOSE [id number] 12:22:00 Test Item Value Reference Range Comments POC-GLUCOSE METER (BEAKER) 138 mg/dL 70-110 : TESTED AT [address] (test sbhx=5287) [facility], [address]: Cosmetic Sales Advisor/Contact Lens Molder [phone] for RESHMA HOLCOMB [id number] 11:53:00 Test Item Value Reference Range Comments RPR SCREEN (BEAKER) (test ydbv=763) Nonreactive Nonreactive HEMOGLOBIN [id number] 11:39:00 Test Item Value Reference Range Comments HEMOGLOBIN A1C (BEAKER) (test kxin=222) 4.6 % 4.3-6.1 POCT-GLUCOSE [id number] 11:36:00 Test Item Value Reference Range Comments POC-GLUCOSE METER (BEAKER) 102 mg/dL 70-110 : TESTED AT [address] (test rrek=6738) [facility], [address]: Cosmetic Sales Advisor/Contact Lens Molder [phone] for [place] TROPONIN [id number] 09:50:00 Test Item Value Reference Range Comments TROPONIN I (BEAKER) (test plmp=354) 0.01 ng/mL 0.00-0.03 Troponin I (TnI) levels [...] failure, acidosis, acute neurological disease, and persistent tachyarrhythmia.[id number] 09:44:00 Test Item Value Reference Range Comments POTASSIUM (BEAKER) (test fotk=965) 4.5 meq/L 3.5-5.1 Check Serum Potassium level 2 hours after oral potassium replacement completed or 30 min after intravenous potassium replacement.[id number] 09:44:00 Test Item Value Reference Range Comments MAGNESIUM (BEAKER) (test jjrg=506) 1.7 mg/dL 1.6-2.6 Check Serum Potassium level 2 hours after oral potassium replacement completed or 30 min after intravenous potassium replacement.HEMOGLOBIN AND [id number] 09:26:00 Test Item Value Reference Range Comments HEMOGLOBIN (BEAKER) (test bflf=097) 7.3 GM/DL 13.7-17.5 HEMATOCRIT (BEAKER) (test hcrr=809) 22.6 % 40.1-51.0 VITAMIN [id number] 08:46:00 Test Item Value Reference Range Comments VITAMIN B12 (BEAKER) (test rbyj=739) 1050 pg/mL 213-816 RAD, ABDOMEN/KUB, 1 VIEW [id number] 07:34:00Reason for exam:->abdominal painShould this be performed [...] Nonspecific, nonobstructive bowel gas pattern. Signed: Rosaura Easoneport Verified Date/Time: 03/11/2019 07:34:15 Reading Location: [facility] Radiology Reading Room TROPONIN [id number] 06:59:00 Test Item Value Reference Range Comments TROPONIN I (BEAKER) (test mphn=343) 0.01 ng/mL 0.00-0.03 Troponin I (TnI) levels [...] acidosis, acute neurological disease, and persistent tachyarrhythmia.POCT-GLUCOSE [id number] 06:05:00 Test Item Value Reference Range Comments POC-GLUCOSE METER (FRANCISCO) 91 mg/dL 70-110 : TESTED AT [address] (test jmdx=3103) [facility], [address]: Cosmetic Sales Advisor/Contact Lens Molder PJ=[id number] for ROMANA ANJU CT, BRAIN, WITHOUT [id number] 04:06:00FINAL REPORT CT Head without contrast CLINICAL [...] MD on 2018 04:06 AMTSH/FREE T4 IF [id number] 03:48:00 Test Item Value Reference Range Comments THYROID STIMULATING HORMONE (BEAKER) (test 1.59 uIU/mL 0.35-4.94 avhk=887) [id number] 03:31:00 Test Item Value Reference Range Comments PHOSPHORUS (BEAKER) (test phxg=655) 3.5 mg/dL 2.3-4.7 Once on admission and Daily AM afterwardsOnce on admission and Daily AM [id number] 03:31:00 Test Item Value Reference Range Comments MAGNESIUM (BEAKER) (test ynds=099) 1.4 mg/dL 1.6-2.6 Once on admission and Daily AM afterwardsOnce on admission and Daily AM afterwardsBASIC METABOLIC [id number] 03:31:00 Test Item Value Reference Range Comments SODIUM (BEAKER) (test 139 meq/L 136-145 wuoa=145) POTASSIUM (BEAKER) (test 2.7 meq/L 3.5-5.1 asuo=993) CHLORIDE (BEAKER) (test 117 meq/L 98-107 hboc=500) CO2 (BEAKER) (test 17 meq/L 22-29 wrkl=266) BLOOD UREA NITROGEN 9 mg/dL 7-21 (BEAKER) (test drvl=634) CREATININE (BEAKER) (test 0.79 mg/dL 0.57-1.25 ueex=830) GLUCOSE RANDOM (BEAKER) 87 mg/dL 70-105 (test geap=883) CALCIUM (BEAKER) (test 8.2 mg/dL 8.4-10.2 jhod=185) EGFR (BEAKER) (test 103 mL/min/1.73 sq m ESTIMATED GFR IS NOT avct=7663) ACCURATE CREATININE CLEARANCE IN PREDICTING GLOMERULAR FILTRATION RATE. ESTIMATED GFR IS NOT APPLICABLE FOR DIALYSIS PATIENTS. Once on admission and Daily AM afterwardsOnce on admission and Daily AM afterwardsSpecimen moderately ictericTROPONIN [id number] 03:26:00 Test Item Value Reference Range Comments TROPONIN I (BEAKER) (test kapd=989) 0.01 ng/mL 0.00-0.03 Troponin I (TnI) levels [...] Daily AM afterwardsCBC W/PLT COUNT & AUTO [id number] 03:10:00 Test Item Value Reference Range Comments WHITE BLOOD CELL COUNT (BEAKER) (test bduo=223) 2.7 K/ L 3.5-10.5 RED BLOOD CELL COUNT (BEAKER) (test btxb=280) 1.96 M/ L 4.63-6.08 HEMOGLOBIN (BEAKER) (test ygcq=201) 7.0 GM/DL 13.7-17.5 HEMATOCRIT (BEAKER) (test qurq=863) 21.5 % 40.1-51.0 MEAN CORPUSCULAR VOLUME (BEAKER) (test bvxz=169) 109.7 fL 79.0-92.2 MEAN CORPUSCULAR HEMOGLOBIN (BEAKER) (test 35.7 pg 25.7-32.2 riah=966) MEAN CORPUSCULAR HEMOGLOBIN CONC (BEAKER) (test 32.6 GM/DL 32.3-36.5 jfuj=891) RED CELL DISTRIBUTION WIDTH (BEAKER) (test 21.2 % 11.6-14.4 fnou=783) PLATELET COUNT (BEAKER) (test gzuj=350) 53 K/CU MM 150-450 MEAN PLATELET VOLUME (BEAKER) (test nqip=797) 10.8 fL 9.4-12.4 NUCLEATED RED BLOOD CELLS (BEAKER) (test 0 /100 WBC 0-0 javo=872) NEUTROPHILS RELATIVE PERCENT (BEAKER) (test 53 % rcbx=800) LYMPHOCYTES RELATIVE PERCENT (BEAKER) (test 25 % wpgp=424) MONOCYTES RELATIVE PERCENT (BEAKER) (test 14 % shcj=385) EOSINOPHILS RELATIVE PERCENT (BEAKER) (test 7 % hzqq=059) BASOPHILS RELATIVE PERCENT (BEAKER) (test 0 % xgly=844) NEUTROPHILS ABSOLUTE COUNT (BEAKER) (test 1.40 K/ L 1.78-5.38 ysma=972) LYMPHOCYTES ABSOLUTE COUNT (BEAKER) (test 0.67 K/ L 1.32-3.57 qkfd=124) MONOCYTES ABSOLUTE COUNT (BEAKER) (test mkpg=600) 0.38 K/ L 0.30-0.82 EOSINOPHILS ABSOLUTE COUNT (BEAKER) (test 0.18 K/ L 0.04-0.54 otdv=960) BASOPHILS ABSOLUTE COUNT (BEAKER) (test ipha=761) 0.01 K/ L 0.01-0.08 IMMATURE GRANULOCYTES-RELATIVE PERCENT (BEAKER) 1 % 0-1 (test veqm=8034) LIPID [id number] 02:14:00 Test Item Value Reference Range Comments TRIGLYCERIDES (BEAKER) (test bkdr=640) 64 mg/dL CHOLESTEROL (BEAKER) (test xkox=229) 61 mg/dL HDL CHOLESTEROL (BEAKER) (test vcoo=840) 13 mg/dL LDL CHOLESTEROL CALCULATED (BEAKER) (test guih=242) 35 mg/dL Triglyceride Reference Range: Low Risk <150 Borderline 150- 199 High Risk 200-499 Very High Risk >=500Cholesterol Reference Range: Low Risk <200 Borderline 200-239 High Risk > 240HDL Cholesterol Reference Range: Low Risk >=60 High Risk <40LDL Cholesterol Reference Range: Optimal <100 Near Optimal 100-129 Borderline 130-159 High 160-189 Very High >=190 Specimen [id number] 23:03:00 Test Item Value Reference Range Comments AMYLASE (BEAKER) (test udbj=976) 34 U/L 25-125 Specimen moderately [id number] 23:03:00 Test Item Value Reference Range Comments LIPASE (BEAKER) (test diyl=546) 44 U/L 8-78 Specimen moderately ictericCOMPREHENSIVE METABOLIC [id number] 22:30:00 Test Item Value Reference Range Comments TOTAL PROTEIN (BEAKER) 6.4 gm/dL 6.0-8.3 (test hbvk=971) ALBUMIN (BEAKER) (test 2.0 g/dL 3.5-5.0 gmpi=8257) ALKALINE PHOSPHATASE 153 U/L 40-150 (BEAKER) (test yeor=470) BILIRUBIN TOTAL (BEAKER) 8.0 mg/dL 0.2-1.2 (test amek=390) SODIUM (BEAKER) (test 141 meq/L 136-145 cmrh=590) POTASSIUM (BEAKER) (test 2.4 meq/L 3.5-5.1 qsmk=318) CHLORIDE (BEAKER) (test 116 meq/L 98-107 syed=936) CO2 (BEAKER) (test 19 meq/L 22-29 oemt=681) BLOOD UREA NITROGEN 9 mg/dL 7-21 (BEAKER) (test npsm=128) CREATININE (BEAKER) (test 0.80 mg/dL 0.57-1.25 mdjy=622) GLUCOSE RANDOM (BEAKER) 99 mg/dL 70-105 (test nmpw=181) CALCIUM (BEAKER) (test 8.4 mg/dL 8.4-10.2 ubeg=457) AST (SGOT) (BEAKER) (test 65 U/L 5-34 qbvw=132) ALT (SGPT) (BEAKER) (test 29 U/L 6-55 hesd=307) EGFR (BEAKER) (test 102 mL/min/1.73 sq ESTIMATED GFR IS NOT jfde=1056) m ACCURATE CREATININE CLEARANCE IN PREDICTING GLOMERULAR FILTRATION RATE. ESTIMATED GFR IS NOT APPLICABLE FOR DIALYSIS PATIENTS. Specimen moderately ictericHEPATIC FUNCTION [id number] 22:29:00 Test Item Value Reference Range Comments TOTAL PROTEIN (BEAKER) (test gjfl=253) 6.4 gm/dL 6.0-8.3 ALBUMIN (BEAKER) (test imei=0980) 2.0 g/dL 3.5-5.0 BILIRUBIN TOTAL (BEAKER) (test orca=134) 8.0 mg/dL 0.2-1.2 BILIRUBIN DIRECT (BEAKER) (test bxgo=064) 4.9 mg/dL 0.1-0.5 ALKALINE PHOSPHATASE (BEAKER) (test qnwo=207) 153 U/L 40-150 AST (SGOT) (BEAKER) (test dirh=780) 65 U/L 5-34 ALT (SGPT) (BEAKER) (test cgbq=534) 29 U/L 6-55 Specimen moderately ictericCBC W/PLT COUNT & AUTO [id number] 22: 14:00 Test Item Value Reference Range Comments WHITE BLOOD CELL COUNT (BEAKER) (test nfaq=059) 2.8 K/ L 3.5-10.5 RED BLOOD CELL COUNT (BEAKER) (test vigu=189) 1.79 M/ L 4.63-6.08 HEMOGLOBIN (BEAKER) (test mbvu=008) 6.6 GM/DL 13.7-17.5 HEMATOCRIT (BEAKER) (test gwuf=134) 20.1 % 40.1-51.0 MEAN CORPUSCULAR VOLUME (BEAKER) (test fdrc=294) 112.3 fL 79.0-92.2 MEAN CORPUSCULAR HEMOGLOBIN (BEAKER) (test 36.9 pg 25.7-32.2 oiib=379) MEAN CORPUSCULAR HEMOGLOBIN CONC (BEAKER) (test 32.8 GM/DL 32.3-36.5 fioq=243) RED CELL DISTRIBUTION WIDTH (BEAKER) (test 18.5 % 11.6-14.4 zspm=118) PLATELET COUNT (BEAKER) (test dnxs=860) 48 K/CU MM 150-450 MEAN PLATELET VOLUME (BEAKER) (test igpq=498) 10.4 fL 9.4-12.4 NUCLEATED RED BLOOD CELLS (BEAKER) (test 0 /100 WBC 0-0 bxpw=425) NEUTROPHILS RELATIVE PERCENT (BEAKER) (test 48 % xkaf=076) LYMPHOCYTES RELATIVE PERCENT (BEAKER) (test 28 % wdid=253) MONOCYTES RELATIVE PERCENT (BEAKER) (test 14 % xgbk=312) EOSINOPHILS RELATIVE PERCENT (BEAKER) (test 9 % qora=000) BASOPHILS RELATIVE PERCENT (BEAKER) (test 0 % msdx=061) NEUTROPHILS ABSOLUTE COUNT (BEAKER) (test 1.36 K/ L 1.78-5.38 vakc=561) LYMPHOCYTES ABSOLUTE COUNT (BEAKER) (test 0.80 K/ L 1.32-3.57 myyj=065) MONOCYTES ABSOLUTE COUNT (BEAKER) (test tjul=462) 0.41 K/ L 0.30-0.82 EOSINOPHILS ABSOLUTE COUNT (BEAKER) (test 0.24 K/ L 0.04-0.54 cllu=869) BASOPHILS ABSOLUTE COUNT (BEAKER) (test idsg=309) 0.01 K/ L 0.01-0.08 IMMATURE GRANULOCYTES-RELATIVE PERCENT (BEAKER) 1 % 0-1 (test jemj=2501) [id number] 22:07:00 Test Item Value Reference Range Comments PARTIAL THROMBOPLASTIN TIME (BEAKER) (test 49.7 seconds 22.5-36.0 hxcm=458) PROTHROMBIN [id number] 22:06:00 Test Item Value Reference Range Comments PROTIME (BEAKER) (test lcrz=195) 23.8 seconds 11.9-14.2 INR (BEAKER) (test edts=887) 2.3 <=5.9 Effective 10/09/2018: PT Reference Range ChangeNew: 11.9-14.2 Previous: 11.7- 14.7RECOMMENDED COUMADIN/WARFARIN INR THERAPY RANGESSTANDARD DOSE: 2.0-3.0 Includes: PROPHYLAXIS for venous thrombosis, systemic embolization; TREATMENT for venous thrombosis and/or pulmonary embolus.HIGH RISK: Target INR is2.5-3.5 for patients wiht mechanical heart valves.POCT-GLUCOSE [id number] 21:53:00 Test Item Value Reference Range Comments POC-GLUCOSE METER (BEAKER) 90 mg/dL 70-110 : TESTED AT [facility] [address] (test atbl=4613) [facility], [address]: Cosmetic Sales Advisor/Contact Lens Molder BE=[id number] for BHASKAR CASTAÑEDA [id number] 00:08:00 Test Item Value Reference Range Comments AMMONIA (test code=AMM) 148 mcmol/L 11-32 Critical Value reported toFirst Name:ATILA Last Name:JOVANNI READ BACK AND VERIFIEDby P.LABLAI, on 02/28/19, @ 0008. COMPREHENSIVE METABOLIC [id number] 23:33:00 Test Item Value Reference Range Comments [...] ALKALINE PHOSPHATASE 176 U/L 45-120 (test code=ALKP) [id number] 09:06:00 Test Item Value Reference Range Comments AMMONIA (test code=AMM) 100 mcmol/L 11-32 Critical Value reported toFirst Name:[facility] Last Name:REMI READ BACK AND VERIFIEDby PPorshaLABPorsha, on 02/27/19, @ 0906. BASIC METABOLIC [id number] 06:30:00 Test Item Value Reference Range Comments [...] (test code=CA) 9.0 mg/dL 8.8-10.2 CBC W/AUTO [id number] 10:20:00 Test Item Value Reference Range Comments [...] code=ACAN) OVALOCYTES (test code=OVAL) 1+ NONE SEEN [id number] 07:15:00 Test Item Value Reference Range Comments AMMONIA (test code=AMM) 85 mcmol/L 11-32 Critical Value reported toFirst Name:LISA Last Name:ALBERT READ BACK AND VERIFIEDby PPorshaLABPorshaRS, on 02/26/19, @ [facility]. COMPREHENSIVE METABOLIC [id number] 06:48:00 Test Item Value Reference Range Comments [...] PHOSPHATASE 151 U/L 45-120 (test code=ALKP) PROTHROMBIN [id number] 06:30:00 Test Item Value Reference Range Comments [...] heart valves; 2.5-3.5recurrent systemic embolism. CBC W/AUTO [id number] 06:26:00 Test Item Value Reference Range Comments [...] code=BA#) 0.02 x10 3/uL 0.0-0.20 CBC W/AUTO [id number] 06:26:00 Test Item Value Reference Range Comments [...] x10 3/uL 0.0-0.20 - CT HEAD/BRAIN W/O [id number] 19:09:00Patient Name: ESTUARDO TAYLOR Unit No: [id number] EXAMS: CPT CODE : [id number] CT HEAD/BRAIN W/O CONT 30476 CT SCAN OF THE HEAD WITHOUT CONTRAST [...] CTDI: 55.70 DLP: 891 Trscr Dt/Tm: 02/25 (1908) by:Gill Printed Date/Time: 02/25/2019 (1912) Name: ESTUARDO TAYLOR [facility] Phys: Eduardo Hoyos MD [address] : 1964 Age: 54 Sex: [place] [id number] Loc: PPorshaERMS 4 Exam Date: 02/25/2019 Status: ADM IN PH: FAX: PAGE 1 Signed ReportCBC W/AUTO [id number] 17:46:00 Test Item Value Reference Range Comments [...] PRESENTPreviously reported result: Edited by: MACEY on 02/25/19:2002~~ Corrected Report ~~Reason (required):0 MEAN PLATELET VOLUME [...] # (test 0.04 x10 3/uL 0.0-0.20 code=BA#) [id number] 17:37:00 Test Item Value Reference Range Comments AMMONIA (test code=AMM) 98 mcmol/L 11-32 Critical Value reported toFirst Name:EDUARDO Last Name:ABBI READ BACK AND VERIFIEDby IrishYOMIPorshaMEGAN, on 02/25/19, @ 9485. COMPREHENSIVE METABOLIC [id number] 17:30:00 Test Item Value Reference Range Comments [...] PHOSPHATASE 154 U/L 45-120 (test code=ALKP) PROTHROMBIN [id number] 17:26:00 Test Item Value Reference Range Comments [...] heart valves; 2.5-3.5recurrent systemic embolism. THROMBOPLASTIN TIME [id number] 17:26:00 Test Item Value Reference Range Comments THROMBOPLASTIN TIME PARTIAL 55.3 SECONDS 26.0-35.9 INTERPRETATIVE (test code=PTT) DATA:Therapeutic range: Unfractionated heparin:47 - 71 seconds Argatroban:1.5 to 3 times the baseline PTT PROTHROMBIN [id number] 17:23:00 Test Item Value Reference Range Comments [...] heart valves; 2.5-3.5recurrent systemic embolism. THROMBOPLASTIN TIME [id number] 17:23:00 Test Item Value Reference Range Comments THROMBOPLASTIN TIME PARTIAL (test code=PTT) SECONDS 26.0-35.9 CBC W/AUTO [id number] 17:12:00 Test Item Value Reference Range Comments [...] (test code=BA#) 0.04 x10 3/uL 0.0-0.20 BLOOD [id number] 14:00:00 Test Item Value Reference Range Comments CULTURE (BEAKER) (test dpio=6405) No growth in 5 days BLOOD [id number] 14:00:00 Test Item Value Reference Range Comments CULTURE (BEAKER) (test jffv=3327) No growth in 5 days BASIC METABOLIC [id number] 07:39:00 Test Item Value Reference Range Comments SODIUM (BEAKER) (test 135 meq/L 136-145 rpcs=325) POTASSIUM (BEAKER) (test 3.3 meq/L 3.5-5.1 bmru=049) CHLORIDE (BEAKER) (test 115 meq/L 98-107 hbrm=809) CO2 (BEAKER) (test 17 meq/L 22-29 rteh=950) BLOOD UREA NITROGEN 9 mg/dL 7-21 (BEAKER) (test pfvt=563) CREATININE (BEAKER) (test 0.85 mg/dL 0.57-1.25 xntu=253) GLUCOSE RANDOM (BEAKER) 96 mg/dL 70-105 (test pluy=785) CALCIUM (BEAKER) (test 8.5 mg/dL 8.4-10.2 qtpq=534) EGFR (BEAKER) (test 95 mL/min/1.73 sq m ESTIMATED GFR IS NOT mgbv=2200) ACCURATE CREATININE CLEARANCE IN PREDICTING GLOMERULAR FILTRATION RATE. ESTIMATED GFR IS NOT APPLICABLE FOR DIALYSIS PATIENTS. Specimen moderately ictericHEPATIC FUNCTION [id number] 07:39:00 Test Item Value Reference Range Comments TOTAL PROTEIN (BEAKER) (test xiia=443) 6.1 gm/dL 6.0-8.3 ALBUMIN (BEAKER) (test guyi=8621) 2.1 g/dL 3.5-5.0 BILIRUBIN TOTAL (BEAKER) (test kmgg=011) 6.9 mg/dL 0.2-1.2 BILIRUBIN DIRECT (BEAKER) (test mrmz=225) 4.3 mg/dL 0.1-0.5 ALKALINE PHOSPHATASE (BEAKER) (test pzmc=681) 136 U/L 40-150 AST (SGOT) (BEAKER) (test zmgn=255) 64 U/L 5-34 ALT (SGPT) (BEAKER) (test rxcb=468) 36 U/L 6-55 Specimen moderately ictericCBC W/PLT COUNT & AUTO [id number] 06: 56:00 Test Item Value Reference Range Comments WHITE BLOOD CELL COUNT 3.7 K/ L 3.5-10.5 (BEAKER) (test mwbt=859) RED BLOOD CELL COUNT (BEAKER) 2.04 M/ L 4.63-6.08 (test grhi=398) HEMOGLOBIN (BEAKER) (test 7.7 GM/DL 13.7-17.5 wubv=281) HEMATOCRIT (BEAKER) (test 24.0 % 40.1-51.0 osqh=181) MEAN CORPUSCULAR VOLUME 117.6 fL 79.0-92.2 (BEAKER) (test qdno=446) MEAN CORPUSCULAR HEMOGLOBIN 37.7 pg 25.7-32.2 (BEAKER) (test flkp=686) MEAN CORPUSCULAR HEMOGLOBIN 32.1 GM/DL 32.3-36.5 CONC (BEAKER) (test duku=628) RED CELL DISTRIBUTION WIDTH Unable to report due to (BEAKER) (test xmkp=530) abnormal RBC population distribution. PLATELET COUNT (BEAKER) (test 47 K/CU MM 150-450 rkxu=983) MEAN PLATELET VOLUME (BEAKER) 12.5 fL 9.4-12.4 (test sugn=301) NUCLEATED RED BLOOD CELLS 0 /100 WBC 0-0 (BEAKER) (test evun=578) NEUTROPHILS RELATIVE PERCENT 53 % (BEAKER) (test ssof=513) LYMPHOCYTES RELATIVE PERCENT 25 % (BEAKER) (test wfny=150) MONOCYTES RELATIVE PERCENT 15 % (BEAKER) (test gujr=251) EOSINOPHILS RELATIVE PERCENT 7 % (BEAKER) (test bann=072) BASOPHILS RELATIVE PERCENT 0 % (BEAKER) (test vjur=182) NEUTROPHILS ABSOLUTE COUNT 1.94 K/ L 1.78-5.38 (BEAKER) (test vphw=743) LYMPHOCYTES ABSOLUTE COUNT 0.91 K/ L 1.32-3.57 (BEAKER) (test rrji=426) MONOCYTES ABSOLUTE COUNT 0.55 K/ L 0.30-0.82 (BEAKER) (test wevb=187) EOSINOPHILS ABSOLUTE COUNT 0.25 K/ L 0.04-0.54 (BEAKER) (test irtb=268) BASOPHILS ABSOLUTE COUNT 0.01 K/ L 0.01-0.08 (BEAKER) (test trda=079) IMMATURE GRANULOCYTES-RELATIVE 1 % 0-1 PERCENT (BEAKER) (test nert=5187) PROTHROMBIN TIME/[id number] 05:45:00 Test Item Value Reference Range Comments PROTIME (BEAKER) (test bpgo=075) 29.9 seconds 11.9-14.2 INR (BEAKER) (test tumd=271) 3.0 <=5.9 Effective 10/09/2018: PT Reference Range ChangeNew: 11.9-14.2 Previous: 11.7- 14.7RECOMMENDED COUMADIN/WARFARIN INR THERAPY RANGESSTANDARD DOSE: 2.0-3.0 Includes: PROPHYLAXIS for venous thrombosis, systemic embolization; TREATMENT for venous thrombosis and/or pulmonary embolus.HIGH RISK: Target INR is2.5-3.5 for patients wiht mechanical heart valves.BLOOD [id number] 20:01:00 Test Item Value Reference Range Comments CULTURE (BEAKER) (test bwtx=5526) No growth in 5 days BLOOD [id number] 20:01:00 Test Item Value Reference Range Comments CULTURE (BEAKER) (test sctz=8109) No growth in 5 days CBC W/PLT COUNT & AUTO [id number] 11:07:00 Test Item Value Reference Range Comments WHITE BLOOD CELL COUNT 4.1 K/ L 3.5-10.5 (BEAKER) (test mjgw=181) RED BLOOD CELL COUNT (BEAKER) 2.18 M/ L 4.63-6.08 (test tbyj=253) HEMOGLOBIN (BEAKER) (test 8.0 GM/DL 13.7-17.5 kupx=399) HEMATOCRIT (BEAKER) (test 25.9 % 40.1-51.0 dahv=353) MEAN CORPUSCULAR VOLUME 118.8 fL 79.0-92.2 (BEAKER) (test nzgt=238) MEAN CORPUSCULAR HEMOGLOBIN 36.7 pg 25.7-32.2 (BEAKER) (test bqzg=673) MEAN CORPUSCULAR HEMOGLOBIN 30.9 GM/DL 32.3-36.5 CONC (BEAKER) (test hrqn=070) RED CELL DISTRIBUTION WIDTH Unable to report due to (BEAKER) (test tbuw=213) abnormal RBC population distribution. PLATELET COUNT (BEAKER) (test 35 K/CU MM 150-450 hdxb=475) MEAN PLATELET VOLUME (BEAKER) 11.2 fL 9.4-12.4 (test cuzg=592) NUCLEATED RED BLOOD CELLS 0 /100 WBC 0-0 (BEAKER) (test xmoy=938) (CELLAVISION MANUAL DIFF)2019-02-23 11:07:00 Test Item Value Reference Range Comments NEUTROPHILS - REL (CELLAVISION)(BEAKER) (test 91 % dsdi=5740) LYMPHOCYTES - REL (CELLAVISION)(BEAKER) (test 1 % wzjv=0760) MONOCYTES - REL (CELLAVISION)(BEAKER) (test 2 % copk=9928) EOSINOPHILS - REL (CELLAVISION)(BEAKER) (test 1 % kuvz=6447) MYELOCYTES - REL (CELLAVISION)(BEAKER) (test 1 % 0-0 kwpe=1351) BANDS - REL (CELLAVISION)(BEAKER) (test 4 % 0-10 dgug=8921) NEUTROPHILS - ABS (CELLAVISION)(BEAKER) (test 3.73 K/ul 1.78-5.38 resn=5606) LYMPHOCYTES - ABS (CELLAVISION)(BEAKER) (test 0.04 K/ul 1.32-3.57 xocs=6825) MONOCYTES - ABS (CELLAVISION)(BEAKER) (test 0.08 K/uL 0.30-0.82 irmb=9071) EOSINOPHILS - ABS (CELLAVISION)(BEAKER) (test 0.04 K/uL 0.04-0.54 ihvy=2688) MYELOCYTES-ABS (CELLAVISION)(BEAKER) (test 0.04 K/uL 0.00-0.00 idri=9014) BANDS - ABS (CELLAVISION)(BEAKER) (test 0.16 K/uL 0.00-0.80 kvaj=7987) TOTAL COUNTED (BEAKER) (test sqge=0649) 100 WBC MORPHOLOGY (BEAKER) (test fvjp=510) Normal PLT MORPHOLOGY (BEAKER) (test kjax=867) Normal POLYCHROMATOPHILLIC RBCS(BEAKER) (test qczi=211) 1+ few HYPOCHROMIA (BEAKER) (test yimg=329) 1+ few ANISOCYTOSIS (BEAKER) (test dwbg=170) 3+ many MACROCYTES (BEAKER) (test xdus=195) 3+ many POIKILOCYTES (BEAKER) (test rdpz=017) 2+ moderate SCHISTOCYTES (BEAKER) (test ummg=809) 1+ few ELLIPTOCYTES (BEAKER) (test bxmn=162) 1+ few MEG CELLS (BEAKER) (test ebcv=882) 2+ moderate ARTIFACT (CELLAVISION)(BEAKER) (test obge=6337) Present PLATELET CONCENTRATION (CELLAVISION)(BEAKER) Decreased (test hoci=1932) Received comment: User comments: Slide comments:BASIC METABOLIC [id number] 05:22:00 Test Item Value Reference Range Comments SODIUM (BEAKER) (test 136 meq/L 136-145 punz=170) POTASSIUM (BEAKER) (test 4.3 meq/L 3.5-5.1 bwtq=066) CHLORIDE (BEAKER) (test 116 meq/L 98-107 wbpq=927) CO2 (BEAKER) (test 16 meq/L - jnyx=048) BLOOD UREA NITROGEN 11 mg/dL 7-21 (BEAKER) (test pwbn=919) CREATININE (BEAKER) (test 1.01 mg/dL 0.57-1.25 ckce=829) GLUCOSE RANDOM (BEAKER) 90 mg/dL 70-105 (test hpic=579) CALCIUM (BEAKER) (test 9.0 mg/dL 8.4-10.2 pjze=035) EGFR (BEAKER) (test 78 mL/min/1.73 sq m ESTIMATED GFR IS NOT ssaj=7581) ACCURATE CREATININE CLEARANCE IN PREDICTING GLOMERULAR FILTRATION RATE. ESTIMATED GFR IS NOT APPLICABLE FOR DIALYSIS PATIENTS. Specimen moderately ictericHEPATIC FUNCTION [id number] 05:22:00 Test Item Value Reference Range Comments TOTAL PROTEIN (BEAKER) (test iash=125) 6.6 gm/dL 6.0-8.3 ALBUMIN (BEAKER) (test mgxn=4938) 2.3 g/dL 3.5-5.0 BILIRUBIN TOTAL (BEAKER) (test uiff=816) 9.0 mg/dL 0.2-1.2 BILIRUBIN DIRECT (BEAKER) (test jrjl=199) 5.1 mg/dL 0.1-0.5 ALKALINE PHOSPHATASE (BEAKER) (test dgyq=591) 136 U/L 40-150 AST (SGOT) (BEAKER) (test qgzi=885) 76 U/L 5-34 ALT (SGPT) (BEAKER) (test ruji=504) 41 U/L 6-55 Specimen moderately ictericPROTHROMBIN [id number] 04:58:00 Test Item Value Reference Range Comments PROTIME (BEAKER) (test dbsj=304) 31.0 seconds 11.9-14.2 INR (BEAKER) (test hvcn=118) 3.2 <=5.9 Effective 10/09/2018: PT Reference Range ChangeNew: 11.9-14.2 Previous: 11.7- 14.7RECOMMENDED COUMADIN/WARFARIN INR THERAPY RANGESSTANDARD DOSE: 2.0-3.0 Includes: PROPHYLAXIS for venous thrombosis, systemic embolization; TREATMENT for venous thrombosis and/or pulmonary embolus.HIGH RISK: Target INR is2.5-3.5 for patients wiht mechanical heart valves.BASIC METABOLIC [id number] 05:35: 00 Test Item Value Reference Range Comments SODIUM (BEAKER) (test 136 meq/L 136-145 nhvc=359) POTASSIUM (BEAKER) (test 3.4 meq/L 3.5-5.1 dnvs=948) CHLORIDE (BEAKER) (test 115 meq/L 98-107 cwpe=212) CO2 (BEAKER) (test 16 meq/L 22-29 egpf=140) BLOOD UREA NITROGEN 7 mg/dL 7-21 (BEAKER) (test qsij=764) CREATININE (BEAKER) (test 0.81 mg/dL 0.57-1.25 zkxv=519) GLUCOSE RANDOM (BEAKER) 110 mg/dL 70-105 (test nwic=141) CALCIUM (BEAKER) (test 8.6 mg/dL 8.4-10.2 uxbh=664) EGFR (BEAKER) (test 100 mL/min/1.73 sq m ESTIMATED GFR IS NOT cwes=7247) ACCURATE CREATININE CLEARANCE IN PREDICTING GLOMERULAR FILTRATION RATE. ESTIMATED GFR IS NOT APPLICABLE FOR DIALYSIS PATIENTS. Specimen moderately ictericHEPATIC FUNCTION [id number] 05:35:00 Test Item Value Reference Range Comments TOTAL PROTEIN (BEAKER) (test gzuh=101) 6.1 gm/dL 6.0-8.3 ALBUMIN (BEAKER) (test kmyd=0529) 2.1 g/dL 3.5-5.0 BILIRUBIN TOTAL (BEAKER) (test oljh=073) 7.0 mg/dL 0.2-1.2 BILIRUBIN DIRECT (BEAKER) (test atqd=081) 4.4 mg/dL 0.1-0.5 ALKALINE PHOSPHATASE (BEAKER) (test kqik=797) 136 U/L 40-150 AST (SGOT) (BEAKER) (test uifb=152) 70 U/L 5-34 ALT (SGPT) (BEAKER) (test vhyt=327) 38 U/L 6-55 Specimen moderately ictericCBC W/PLT COUNT & AUTO [id number] 05: 21:00 Test Item Value Reference Range Comments WHITE BLOOD CELL COUNT 2.9 K/ L 3.5-10.5 (BEAKER) (test warb=518) RED BLOOD CELL COUNT (BEAKER) 1.96 M/ L 4.63-6.08 (test lulx=934) HEMOGLOBIN (BEAKER) (test 7.4 GM/DL 13.7-17.5 ctlw=809) HEMATOCRIT (BEAKER) (test 23.0 % 40.1-51.0 ecwb=252) MEAN CORPUSCULAR VOLUME 117.3 fL 79.0-92.2 (BEAKER) (test kxxy=132) MEAN CORPUSCULAR HEMOGLOBIN 37.8 pg 25.7-32.2 (BEAKER) (test ycri=541) MEAN CORPUSCULAR HEMOGLOBIN 32.2 GM/DL 32.3-36.5 CONC (BEAKER) (test zoch=932) RED CELL DISTRIBUTION WIDTH Unable to report due to (BEAKER) (test ygil=966) abnormal RBC population distribution. PLATELET COUNT (BEAKER) (test 30 K/CU MM 150-450 ovcv=585) MEAN PLATELET VOLUME (BEAKER) 13.0 fL 9.4-12.4 (test wmnd=097) NUCLEATED RED BLOOD CELLS 0 /100 WBC 0-0 (BEAKER) (test nmtv=703) NEUTROPHILS RELATIVE PERCENT 55 % (BEAKER) (test glad=015) LYMPHOCYTES RELATIVE PERCENT 24 % (BEAKER) (test kkgm=167) MONOCYTES RELATIVE PERCENT 17 % (BEAKER) (test tzls=140) EOSINOPHILS RELATIVE PERCENT 3 % (BEAKER) (test mobw=140) BASOPHILS RELATIVE PERCENT 1 % (BEAKER) (test jzbf=529) NEUTROPHILS ABSOLUTE COUNT 1.59 K/ L 1.78-5.38 (BEAKER) (test bxmq=903) LYMPHOCYTES ABSOLUTE COUNT 0.70 K/ L 1.32-3.57 (BEAKER) (test zhex=177) MONOCYTES ABSOLUTE COUNT 0.48 K/ L 0.30-0.82 (BEAKER) (test yhks=683) EOSINOPHILS ABSOLUTE COUNT 0.10 K/ L 0.04-0.54 (BEAKER) (test sjav=331) BASOPHILS ABSOLUTE COUNT 0.02 K/ L 0.01-0.08 (BEAKER) (test bbod=687) IMMATURE GRANULOCYTES-RELATIVE 0 % 0-1 PERCENT (BEAKER) (test bqse=8272) PROTHROMBIN [id number] 05:19:00 Test Item Value Reference Range Comments PROTIME (BEAKER) (test kzta=410) 30.2 seconds 11.9-14.2 INR (BEAKER) (test qdac=744) 3.1 <=5.9 Effective 10/09/2018: PT Reference Range ChangeNew: 11.9-14.2 Previous: 11.7- 14.7RECOMMENDED COUMADIN/WARFARIN INR THERAPY RANGESSTANDARD DOSE: 2.0-3.0 Includes: PROPHYLAXIS for venous thrombosis, systemic embolization; TREATMENT for venous thrombosis and/or pulmonary embolus.HIGH RISK: Target INR is2.5-3.5 for patients wiht mechanical heart valves.PROTHROMBIN TIME/[id number] 12:25: 00 Test Item Value Reference Range Comments PROTIME (BEAKER) (test ppiz=305) 28.3 seconds 11.9-14.2 INR (BEAKER) (test ycsp=651) 2.8 <=5.9 Effective 10/09/2018: PT Reference Range ChangeNew: 11.9-14.2 Previous: 11.7- 14.7RECOMMENDED COUMADIN/WARFARIN INR THERAPY RANGESSTANDARD DOSE: 2.0-3.0 Includes: PROPHYLAXIS for venous thrombosis, systemic embolization; TREATMENT for venous thrombosis and/or pulmonary embolus.HIGH RISK: Target INR is2.5-3.5 for patients wiht mechanical heart valves.BASIC METABOLIC [id number] 08:06: 00 Test Item Value Reference Range Comments SODIUM (BEAKER) (test 136 meq/L 136-145 frvm=786) POTASSIUM (BEAKER) (test 3.5 meq/L 3.5-5.1 unbm=241) CHLORIDE (BEAKER) (test 116 meq/L 98-107 wyfy=571) CO2 (BEAKER) (test 16 meq/L 22-29 eubf=265) BLOOD UREA NITROGEN 8 mg/dL 7-21 (BEAKER) (test wuao=832) CREATININE (BEAKER) (test 1.11 mg/dL 0.57-1.25 hulj=853) GLUCOSE RANDOM (BEAKER) 110 mg/dL 70-105 (test twqn=307) CALCIUM (BEAKER) (test 8.8 mg/dL 8.4-10.2 maxq=648) EGFR (BEAKER) (test 70 mL/min/1.73 sq m ESTIMATED GFR IS NOT vqvb=7801) ACCURATE CREATININE CLEARANCE IN PREDICTING GLOMERULAR FILTRATION RATE. ESTIMATED GFR IS NOT APPLICABLE FOR DIALYSIS PATIENTS. Specimen moderately ictericHEPATIC FUNCTION [id number] 08:06:00 Test Item Value Reference Range Comments TOTAL PROTEIN (BEAKER) (test dyhu=141) 6.3 gm/dL 6.0-8.3 ALBUMIN (BEAKER) (test enli=4347) 2.3 g/dL 3.5-5.0 BILIRUBIN TOTAL (BEAKER) (test wnte=588) 8.3 mg/dL 0.2-1.2 BILIRUBIN DIRECT (BEAKER) (test sfie=540) 4.9 mg/dL 0.1-0.5 ALKALINE PHOSPHATASE (BEAKER) (test nqmz=024) 137 U/L 40-150 AST (SGOT) (BEAKER) (test kwkm=173) 72 U/L 5-34 ALT (SGPT) (BEAKER) (test ajjm=139) 41 U/L 6-55 Specimen moderately ictericCBC W/PLT COUNT & AUTO [id number] 06: 48:00 Test Item Value Reference Range Comments WHITE BLOOD CELL COUNT (BEAKER) (test bdai=158) 3.7 K/ L 3.5-10.5 RED BLOOD CELL COUNT (BEAKER) (test qmlt=814) 2.09 M/ L 4.63-6.08 HEMOGLOBIN (BEAKER) (test yrva=810) 7.8 GM/DL 13.7-17.5 HEMATOCRIT (BEAKER) (test nkpk=481) 24.4 % 40.1-51.0 MEAN CORPUSCULAR VOLUME (BEAKER) (test ipiu=840) 116.7 fL 79.0-92.2 MEAN CORPUSCULAR HEMOGLOBIN (BEAKER) (test 37.3 pg 25.7-32.2 mvzo=549) MEAN CORPUSCULAR HEMOGLOBIN CONC (BEAKER) (test 32.0 GM/DL 32.3-36.5 owpl=595) RED CELL DISTRIBUTION WIDTH (BEAKER) (test 24.3 % 11.6-14.4 fwas=062) PLATELET COUNT (BEAKER) (test dkrj=116) 33 K/CU MM 150-450 MEAN PLATELET VOLUME (BEAKER) (test yaef=578) 11.9 fL 9.4-12.4 NUCLEATED RED BLOOD CELLS (BEAKER) (test 0 /100 WBC 0-0 whxw=597) NEUTROPHILS RELATIVE PERCENT (BEAKER) (test 56 % zsbw=821) LYMPHOCYTES RELATIVE PERCENT (BEAKER) (test 24 % mdub=227) MONOCYTES RELATIVE PERCENT (BEAKER) (test 14 % swzr=879) EOSINOPHILS RELATIVE PERCENT (BEAKER) (test 4 % bldo=210) BASOPHILS RELATIVE PERCENT (BEAKER) (test 1 % sbgu=104) NEUTROPHILS ABSOLUTE COUNT (BEAKER) (test 2.06 K/ L 1.78-5.38 algl=582) LYMPHOCYTES ABSOLUTE COUNT (BEAKER) (test 0.89 K/ L 1.32-3.57 fvpy=560) MONOCYTES ABSOLUTE COUNT (BEAKER) (test uzvk=807) 0.53 K/ L 0.30-0.82 EOSINOPHILS ABSOLUTE COUNT (BEAKER) (test 0.16 K/ L 0.04-0.54 gjom=887) BASOPHILS ABSOLUTE COUNT (BEAKER) (test deee=050) 0.03 K/ L 0.01-0.08 IMMATURE GRANULOCYTES-RELATIVE PERCENT (BEAKER) 1 % 0-1 (test kxmz=5485) CALCIUM, [id number] 07:11:00 Test Item Value Reference Range Comments CALCIUM IONIZED (BEAKER) (test sqqg=195) 1.27 mmol/L 1.12-1.27 PH, BLOOD (BEAKER) (test wqjg=7352) 7.33 CBC W/PLT COUNT & AUTO [id number] 06:47:00 Test Item Value Reference Range Comments WHITE BLOOD CELL COUNT (BEAKER) (test emew=436) 4.6 K/ L 3.5-10.5 RED BLOOD CELL COUNT (BEAKER) (test jnmj=291) 2.38 M/ L 4.63-6.08 HEMOGLOBIN (BEAKER) (test mahe=231) 9.0 GM/DL 13.7-17.5 HEMATOCRIT (BEAKER) (test gcur=481) 28.1 % 40.1-51.0 MEAN CORPUSCULAR VOLUME (BEAKER) (test cdtr=549) 118.1 fL 79.0-92.2 MEAN CORPUSCULAR HEMOGLOBIN (BEAKER) (test 37.8 pg 25.7-32.2 zicb=779) MEAN CORPUSCULAR HEMOGLOBIN CONC (BEAKER) (test 32.0 GM/DL 32.3-36.5 tvlz=399) RED CELL DISTRIBUTION WIDTH (BEAKER) (test 25.2 % 11.6-14.4 alos=166) PLATELET COUNT (BEAKER) (test zmyd=409) 37 K/CU MM 150-450 MEAN PLATELET VOLUME (BEAKER) (test rjtg=058) 12.7 fL 9.4-12.4 NUCLEATED RED BLOOD CELLS (BEAKER) (test 0 /100 WBC 0-0 lsxp=534) NEUTROPHILS RELATIVE PERCENT (BEAKER) (test 63 % onbz=564) LYMPHOCYTES RELATIVE PERCENT (BEAKER) (test 21 % prup=965) MONOCYTES RELATIVE PERCENT (BEAKER) (test 11 % jyeu=761) EOSINOPHILS RELATIVE PERCENT (BEAKER) (test 5 % ubwl=092) BASOPHILS RELATIVE PERCENT (BEAKER) (test 1 % flzu=159) NEUTROPHILS ABSOLUTE COUNT (BEAKER) (test 2.91 K/ L 1.78-5.38 qgkg=103) LYMPHOCYTES ABSOLUTE COUNT (BEAKER) (test 0.95 K/ L 1.32-3.57 dsjk=963) MONOCYTES ABSOLUTE COUNT (BEAKER) (test xgsh=729) 0.49 K/ L 0.30-0.82 EOSINOPHILS ABSOLUTE COUNT (BEAKER) (test 0.21 K/ L 0.04-0.54 janv=742) BASOPHILS ABSOLUTE COUNT (BEAKER) (test tkbv=253) 0.04 K/ L 0.01-0.08 IMMATURE GRANULOCYTES-RELATIVE PERCENT (BEAKER) 1 % 0-1 (test upuf=7112) [id number] 06:37:00 Test Item Value Reference Range Comments PHOSPHORUS (BEAKER) (test pzkl=353) 2.5 mg/dL 2.3-4.7 [id number] 06:37:00 Test Item Value Reference Range Comments MAGNESIUM (BEAKER) (test kfgd=289) 1.7 mg/dL 1.6-2.6 BASIC METABOLIC [id number] 06:37:00 Test Item Value Reference Range Comments SODIUM (BEAKER) (test 141 meq/L 136-145 yjxz=286) POTASSIUM (BEAKER) (test 3.6 meq/L 3.5-5.1 huvo=716) CHLORIDE (BEAKER) (test 119 meq/L 98-107 cgbv=580) CO2 (BEAKER) (test 17 meq/L 22-29 bkaa=422) BLOOD UREA NITROGEN 13 mg/dL 7-21 (BEAKER) (test vhxb=921) CREATININE (BEAKER) (test 0.99 mg/dL 0.57-1.25 qske=575) GLUCOSE RANDOM (BEAKER) 82 mg/dL 70-105 (test xrnr=580) CALCIUM (BEAKER) (test 9.5 mg/dL 8.4-10.2 hfym=165) EGFR (BEAKER) (test 79 mL/min/1.73 sq m ESTIMATED GFR IS NOT tget=9577) ACCURATE CREATININE CLEARANCE IN PREDICTING GLOMERULAR FILTRATION RATE. ESTIMATED GFR IS NOT APPLICABLE FOR DIALYSIS PATIENTS. Specimen markedly ictericHEPATIC FUNCTION [id number] 06:37:00 Test Item Value Reference Range Comments TOTAL PROTEIN (BEAKER) (test ipuw=581) 6.7 gm/dL 6.0-8.3 ALBUMIN (BEAKER) (test vmyy=8946) 2.6 g/dL 3.5-5.0 BILIRUBIN TOTAL (BEAKER) (test zihk=571) 11.4 mg/dL 0.2-1.2 BILIRUBIN DIRECT (BEAKER) (test geae=509) 6.1 mg/dL 0.1-0.5 ALKALINE PHOSPHATASE (BEAKER) (test usmw=719) 136 U/L 40-150 AST (SGOT) (BEAKER) (test dtye=957) 68 U/L 5-34 ALT (SGPT) (BEAKER) (test tvhq=985) 39 U/L 6-55 Specimen markedly ictericU/S, ABDOMINAL, WITH [id number] 18:04:00Please assess TIPS with velocities and patency, r/o PVT, liver lesionReason for exam:-& gt;Decompensated cirrhosis. Please assess TIPS with velocities and patency, r/o PVT, ascites, liver lesionsAddendum BeginsREPORT STATUS:A There is likely sludge layering in the gallbladder. Signed: Estuardo Singh MDReport Verified Date/Time: 02/19/2019 18:04:21 Reading Location: [address] Radiology Reading RoomAddendum EndsFINAL REPORT TECHNIQUE: [...] splenomegaly. 4.Small left pleural effusion. Signed: Estuardo Singh MDReport Verified Date/Time: 02/19/2019 17: 52:03 Reading Location: [address] Radiology Reading Room EEG AWAKE AND [id number] 12:08:00Reason for exam:->eval for AMSEEG REPORT: Estuardo Taylor, 53 [facility] HospitalMRN:[id number] of EEDate of report: Test location: Inpatient - Patient RoomEEG #: [id number] Code: #: R56.9 Unspecified convulsions (780.39)CPT Code: #: 68968: 01. EEG awake and drowsy; 20-40 minPROCEDURE:EEG [...] or other etiology. Please correlate clinically.Neurophysiologist: Jeri Magdaleno CBC W/PLT COUNT & amp; AUTO [id number] 11:09:00 Test Item Value Reference Range Comments WHITE BLOOD CELL COUNT (BEAKER) (test iwgf=805) 5.0 K/ L 3.5-10.5 RED BLOOD CELL COUNT (BEAKER) (test xmav=021) 2.37 M/ L 4.63-6.08 HEMOGLOBIN (BEAKER) (test wvpr=486) 8.7 GM/DL 13.7-17.5 HEMATOCRIT (BEAKER) (test xmur=754) 27.4 % 40.1-51.0 MEAN CORPUSCULAR VOLUME (BEAKER) (test cffk=208) 115.6 fL 79.0-92.2 MEAN CORPUSCULAR HEMOGLOBIN (BEAKER) (test 36.7 pg 25.7-32.2 nvxs=634) MEAN CORPUSCULAR HEMOGLOBIN CONC (BEAKER) (test 31.8 GM/DL 32.3-36.5 gyft=544) RED CELL DISTRIBUTION WIDTH (BEAKER) (test 25.3 % 11.6-14.4 abxn=116) PLATELET COUNT (BEAKER) (test snjz=458) 36 K/CU MM 150-450 MEAN PLATELET VOLUME (BEAKER) (test knah=185) 11.7 fL 9.4-12.4 NUCLEATED RED BLOOD CELLS (BEAKER) (test 0 /100 WBC 0-0 kpac=920) (MANUAL DIFFERENTIAL)2019-02-19 11:09:00 Test Item Value Reference Range Comments NEUTROPHILS - REL (DIFF) (BEAKER) (test kzih=6340) 67 % LYMPHOCYTES - REL (DIFF) (BEAKER) (test uirs=5527) 12 % MONOCYTES - REL (DIFF) (BEAKER) (test bkvk=6631) 5 % EOSINOPHILS - REL (DIFF) (BEAKER) (test lteg=2668) 5 % BASOPHILS - REL (DIFF) (BEAKER) (test itct=7917) 0 % BANDS - REL (DIFF) (BEAKER) (test jinm=5224) 10 % 0-10 ATYPICAL LYMPHOCYTE - REL (DIFF) (BEAKER) (test 1 % 0-0 ttlo=690) NEUTROPHILS - ABS (DIFF) (BEAKER) (test imfe=9979) 3.35 K/ L 1.80-8.00 LYMPHOCYTES - ABS (DIFF) (BEAKER) (test djcp=9378) 0.60 K/ L 1.48-4.50 MONOCYTES - ABS (DIFF) (BEAKER) (test ficu=5712) 0.25 K/ L 0.00-1.30 EOSINOPHILS - ABS (DIFF) (BEAKER) (test mbrp=2130) 0.25 K/ L 0.00-0.50 BASOPHILS - ABS (DIFF) (BEAKER) (test wfsk=4006) 0.00 K/ L 0.00-0.20 BANDS-ABS (DIFF) (BEAKER) (test ffpu=5308) 0.5 K/ L 0.0-0.8 ATYPICAL LYMPHOCYTES - ABS (DIFF) (BEAKER) (test 0.05 K/ L 0.00-0.00 ditn=501) TOTAL COUNTED (BEAKER) (test swyf=4197) 100 BANDS + SEGMENTED NEUTROPHILS (BEAKER) (test 3.85 idpl=1266) WBC MORPHOLOGY (BEAKER) (test ceds=000) Normal PLT MORPHOLOGY (BEAKER) (test xgkx=774) Normal RBC MORPHOLOGY (BEAKER) (test yttd=310) Normal CALCIUM, [id number] 05:52:00 Test Item Value Reference Range Comments CALCIUM IONIZED (BEAKER) (test lrbf=400) 1.26 mmol/L 1.12-1.27 PH, BLOOD (BEAKER) (test dijr=9550) 7.40 [id number] 05:35:00 Test Item Value Reference Range Comments PHOSPHORUS (BEAKER) (test upvm=854) 2.6 mg/dL 2.3-4.7 [id number] 05:35:00 Test Item Value Reference Range Comments MAGNESIUM (BEAKER) (test wocf=417) 1.9 mg/dL 1.6-2.6 BASIC METABOLIC [id number] 05:35:00 Test Item Value Reference Range Comments SODIUM (BEAKER) (test 141 meq/L 136-145 mquu=899) POTASSIUM (BEAKER) (test 3.5 meq/L 3.5-5.1 kodw=813) CHLORIDE (BEAKER) (test 118 meq/L 98-107 zbeq=487) CO2 (BEAKER) (test 19 meq/L 22-29 yzdv=865) BLOOD UREA NITROGEN 15 mg/dL 7-21 (BEAKER) (test uiav=103) CREATININE (BEAKER) (test 1.00 mg/dL 0.57-1.25 loxk=423) GLUCOSE RANDOM (BEAKER) 86 mg/dL 70-105 (test gxdb=899) CALCIUM (BEAKER) (test 9.2 mg/dL 8.4-10.2 jhvq=608) EGFR (BEAKER) (test 78 mL/min/1.73 sq m ESTIMATED GFR IS NOT hqlq=0777) ACCURATE CREATININE CLEARANCE IN PREDICTING GLOMERULAR FILTRATION RATE. ESTIMATED GFR IS NOT APPLICABLE FOR DIALYSIS PATIENTS. Specimen markedly ictericHEPATIC FUNCTION [id number] 05:35:00 Test Item Value Reference Range Comments TOTAL PROTEIN (BEAKER) (test wdbz=638) 6.7 gm/dL 6.0-8.3 ALBUMIN (BEAKER) (test hygp=9034) 2.5 g/dL 3.5-5.0 BILIRUBIN TOTAL (BEAKER) (test tzgh=755) 14.7 mg/dL 0.2-1.2 BILIRUBIN DIRECT (BEAKER) (test bfek=097) 7.1 mg/dL 0.1-0.5 ALKALINE PHOSPHATASE (BEAKER) (test wmqt=474) 154 U/L 40-150 AST (SGOT) (BEAKER) (test drfp=382) 72 U/L 5-34 ALT (SGPT) (BEAKER) (test pfev=282) 43 U/L 6-55 Specimen markedly ictericURINALYSIS W/ REFLEX URINE [id number] 00:17:00 Test Item Value Reference Range Comments COLOR (BEAKER) (test fqjb=415) Dark Yellow CLARITY (BEAKER) (test csvs=368) Clear SPECIFIC GRAVITY UA (BEAKER) (test jlwr=130) 1.011 1.001-1.035 PH UA (BEAKER) (test uead=901) 7.0 5.0-8.0 PROTEIN UA (BEAKER) (test hqlo=398) Negative Negative GLUCOSE UA (BEAKER) (test hwjm=756) Negative Negative KETONES UA (BEAKER) (test veww=978) Negative Negative BILIRUBIN UA (BEAKER) (test zfje=669) Positive Negative BLOOD UA (BEAKER) (test hgap=025) Trace Negative NITRITE UA (BEAKER) (test clxa=516) Negative Negative LEUKOCYTE ESTERASE UA (BEAKER) (test mhwa=823) Negative Negative UROBILINOGEN UA (BEAKER) (test oudp=935) 8.0 mg/dL 0.2-1.0 RBC UA (BEAKER) (test qkfe=540) 1 /HPF WBC UA (BEAKER) (test lrjn=220) 3 /HPF SQUAMOUS EPITHELIAL (BEAKER) (test ybud=277) < /HPF HYALINE CASTS (BEAKER) (test ywtd=809) 1 /LPF SOURCE(BEAKER) (test hfcj=7105) [id number] 17:04:00 Test Item Value Reference Range Comments SODIUM (BEAKER) (test isfv=598) 142 meq/L 136-145 POTASSIUM (BEAKER) (test uiuw=249) 3.1 meq/L 3.5-5.1 CHLORIDE (BEAKER) (test wepv=758) 116 meq/L 98-107 CO2 (BEAKER) (test dlkh=606) 21 meq/L 22-29 Call results [id number], CHEST, 1 VIEW, NON [id number] 13:35:00Reason for exam:->fever, r/o pneumoniaShould this be [...] Verified Date/Time: 02/18/2019 13:35: 38 Reading Location: [facility] Radiology Reading Room OSMOLALITY, [id number] 06:44:00 Test Item Value Reference Range Comments OSMOLALITY URINE (BEAKER) (test spkj=441) 409 mOsm/kg 40-1,400 SODIUM, RANDOM [id number] 05:33:00 Test Item Value Reference Range Comments SODIUM URINE (BEAKER) (test uopz=140) < meq/L Reference Range: No NormalsB-TYPE NATRIURETIC FACTOR (BNP)2019-02-18 03:35:00 Test Item Value Reference Range Comments B-TYPE NATRIURETIC PEPTIDE (BEAKER) (test 234 pg/mL 0-100 bwnq=876) [id number] 03:31:00 Test Item Value Reference Range Comments PHOSPHORUS (BEAKER) (test uvbi=315) 3.7 mg/dL 2.3-4.7 [id number] 03:31:00 Test Item Value Reference Range Comments MAGNESIUM (BEAKER) (test slhu=292) 1.7 mg/dL 1.6-2.6 COMPREHENSIVE METABOLIC [id number] 03:31:00 Test Item Value Reference Range Comments TOTAL PROTEIN (BEAKER) 6.8 gm/dL 6.0-8.3 (test mamv=464) ALBUMIN (BEAKER) (test 2.1 g/dL 3.5-5.0 vmdz=4600) ALKALINE PHOSPHATASE 228 U/L 40-150 (BEAKER) (test cbce=383) BILIRUBIN TOTAL (BEAKER) 11.0 mg/dL 0.2-1.2 (test arck=223) SODIUM (BEAKER) (test 144 meq/L 136-145 rpid=194) POTASSIUM (BEAKER) (test 3.0 meq/L 3.5-5.1 nogj=228) CHLORIDE (BEAKER) (test 117 meq/L 98-107 ucww=284) CO2 (BEAKER) (test 21 meq/L 22-29 lsdr=026) BLOOD UREA NITROGEN 13 mg/dL 7-21 (BEAKER) (test ybdy=483) CREATININE (BEAKER) (test 1.12 mg/dL 0.57-1.25 algl=818) GLUCOSE RANDOM (BEAKER) 108 mg/dL 70-105 (test icuy=752) CALCIUM (BEAKER) (test 9.2 mg/dL 8.4-10.2 mozb=961) AST (SGOT) (BEAKER) (test 104 U/L 5-34 oyzy=087) ALT (SGPT) (BEAKER) (test 52 U/L 6-55 vajk=591) EGFR (BEAKER) (test 69 mL/min/1.73 sq m ESTIMATED GFR IS NOT ffed=8447) ACCURATE CREATININE CLEARANCE IN PREDICTING GLOMERULAR FILTRATION RATE. ESTIMATED GFR IS NOT APPLICABLE FOR DIALYSIS PATIENTS. Specimen markedly ictericHEPATIC FUNCTION [id number] 03:31:00 Test Item Value Reference Range Comments TOTAL PROTEIN (BEAKER) (test kzvq=042) 6.8 gm/dL 6.0-8.3 ALBUMIN (BEAKER) (test sblx=6240) 2.1 g/dL 3.5-5.0 BILIRUBIN TOTAL (BEAKER) (test tpgb=456) 11.0 mg/dL 0.2-1.2 BILIRUBIN DIRECT (BEAKER) (test zvrq=698) 6.0 mg/dL 0.1-0.5 ALKALINE PHOSPHATASE (BEAKER) (test mlvm=256) 228 U/L 40-150 AST (SGOT) (BEAKER) (test ktko=649) 104 U/L 5-34 ALT (SGPT) (BEAKER) (test vnie=499) 52 U/L 6-55 Specimen markedly ictericCBC W/PLT COUNT & AUTO [id number] 03:27 :00 Test Item Value Reference Range Comments WHITE BLOOD CELL COUNT (BEAKER) (test tkyu=320) 5.7 K/ L 3.5-10.5 RED BLOOD CELL COUNT (BEAKER) (test lljw=584) 2.68 M/ L 4.63-6.08 HEMOGLOBIN (BEAKER) (test lcej=625) 9.9 GM/DL 13.7-17.5 HEMATOCRIT (BEAKER) (test gppr=372) 30.6 % 40.1-51.0 MEAN CORPUSCULAR VOLUME (BEAKER) (test bxhf=540) 114.2 fL 79.0-92.2 MEAN CORPUSCULAR HEMOGLOBIN (BEAKER) (test 36.9 pg 25.7-32.2 fvdu=115) MEAN CORPUSCULAR HEMOGLOBIN CONC (BEAKER) (test 32.4 GM/DL 32.3-36.5 intn=066) RED CELL DISTRIBUTION WIDTH (BEAKER) (test 26.0 % 11.6-14.4 tdpv=127) PLATELET COUNT (BEAKER) (test ouwn=428) 35 K/CU MM 150-450 MEAN PLATELET VOLUME (BEAKER) (test cckg=504) 9.6 fL 9.4-12.4 NUCLEATED RED BLOOD CELLS (BEAKER) (test 0 /100 WBC 0-0 vipd=712) NEUTROPHILS RELATIVE PERCENT (BEAKER) (test 74 % igac=726) LYMPHOCYTES RELATIVE PERCENT (BEAKER) (test 12 % imnh=032) MONOCYTES RELATIVE PERCENT (BEAKER) (test 8 % wurx=326) EOSINOPHILS RELATIVE PERCENT (BEAKER) (test 5 % mfcj=911) BASOPHILS RELATIVE PERCENT (BEAKER) (test 1 % qjat=572) NEUTROPHILS ABSOLUTE COUNT (BEAKER) (test 4.24 K/ L 1.78-5.38 juac=774) LYMPHOCYTES ABSOLUTE COUNT (BEAKER) (test 0.69 K/ L 1.32-3.57 wdxa=343) MONOCYTES ABSOLUTE COUNT (BEAKER) (test vame=927) 0.48 K/ L 0.30-0.82 EOSINOPHILS ABSOLUTE COUNT (BEAKER) (test 0.27 K/ L 0.04-0.54 xddu=134) BASOPHILS ABSOLUTE COUNT (BEAKER) (test fbka=952) 0.04 K/ L 0.01-0.08 IMMATURE GRANULOCYTES-RELATIVE PERCENT (BEAKER) 0 % 0-1 (test rrox=5077) CALCIUM, [id number] 03:04:00 Test Item Value Reference Range Comments CALCIUM IONIZED (BEAKER) (test joyp=891) 1.25 mmol/L 1.12-1.27 PH, BLOOD (BEAKER) (test guno=4152) 7.42 [id number] 20:04:00 Test Item Value Reference Range Comments SODIUM (BEAKER) (test lcty=619) 142 meq/L 136-145 POTASSIUM (BEAKER) (test 3.3 meq/L 3.5-5.1 Specimen slightly hemolyzed xvjs=060) CHLORIDE (BEAKER) (test 117 meq/L 98-107 hvrl=766) CO2 (BEAKER) (test ptpl=849) 16 meq/L 22-29 Call [id number] 20:00:00 Test Item Value Reference Range Comments CULTURE (BEAKER) (test wmsj=7016) No growth in 5 days BLOOD [id number] 20:00:00 Test Item Value Reference Range Comments CULTURE (BEAKER) (test limx=3988) No growth in 5 days [id number] 16:30:00 Test Item Value Reference Range Comments SODIUM (BEAKER) (test lhwd=461) 142 meq/L 136-145 Page [phone] with resultsBASIC METABOLIC [id number] 07:55:00 Test Item Value Reference Range Comments SODIUM (BEAKER) (test 152 meq/L 136-145 woqn=928) POTASSIUM (BEAKER) (test 2.9 meq/L 3.5-5.1 lury=037) CHLORIDE (BEAKER) (test 122 meq/L 98-107 onis=849) CO2 (BEAKER) (test 23 meq/L 22-29 mcgg=678) BLOOD UREA NITROGEN 12 mg/dL 7-21 (BEAKER) (test ysja=740) CREATININE (BEAKER) (test 0.88 mg/dL 0.57-1.25 nqbo=143) GLUCOSE RANDOM (BEAKER) 84 mg/dL 70-105 (test pwoq=115) CALCIUM (BEAKER) (test 9.8 mg/dL 8.4-10.2 qols=300) EGFR (BEAKER) (test 91 mL/min/1.73 sq m ESTIMATED GFR IS NOT ulre=9724) ACCURATE CREATININE CLEARANCE IN PREDICTING GLOMERULAR FILTRATION RATE. ESTIMATED GFR IS NOT APPLICABLE FOR DIALYSIS PATIENTS. Specimen markedly ictericHEPATIC FUNCTION [id number] 07:52:00 Test Item Value Reference Range Comments TOTAL PROTEIN (BEAKER) (test pyhp=325) 7.0 gm/dL 6.0-8.3 ALBUMIN (BEAKER) (test cxsf=0310) 2.2 g/dL 3.5-5.0 BILIRUBIN TOTAL (BEAKER) (test hden=246) 10.8 mg/dL 0.2-1.2 BILIRUBIN DIRECT (BEAKER) (test zwii=183) 6.6 mg/dL 0.1-0.5 ALKALINE PHOSPHATASE (BEAKER) (test qnfa=496) 237 U/L 40-150 AST (SGOT) (BEAKER) (test viwz=270) 109 U/L 5-34 ALT (SGPT) (BEAKER) (test mdqu=676) 50 U/L 6-55 Specimen markedly ictericCBC W/PLT COUNT & AUTO [id number] 06:45 :00 Test Item Value Reference Range Comments WHITE BLOOD CELL COUNT (BEAKER) (test sakz=211) 5.6 K/ L 3.5-10.5 RED BLOOD CELL COUNT (BEAKER) (test wbec=364) 2.85 M/ L 4.63-6.08 HEMOGLOBIN (BEAKER) (test cutk=412) 10.5 GM/DL 13.7-17.5 HEMATOCRIT (BEAKER) (test tzrv=875) 33.0 % 40.1-51.0 MEAN CORPUSCULAR VOLUME (BEAKER) (test rdvs=305) 115.8 fL 79.0-92.2 MEAN CORPUSCULAR HEMOGLOBIN (BEAKER) (test 36.8 pg 25.7-32.2 cilg=355) MEAN CORPUSCULAR HEMOGLOBIN CONC (BEAKER) (test 31.8 GM/DL 32.3-36.5 dbon=364) RED CELL DISTRIBUTION WIDTH (BEAKER) (test 26.9 % 11.6-14.4 yrtu=080) PLATELET COUNT (BEAKER) (test zjsk=037) 50 K/CU MM 150-450 MEAN PLATELET VOLUME (BEAKER) (test eggh=817) 11.5 fL 9.4-12.4 NUCLEATED RED BLOOD CELLS (BEAKER) (test 0 /100 WBC 0-0 byal=307) NEUTROPHILS RELATIVE PERCENT (BEAKER) (test 55 % ezvd=982) LYMPHOCYTES RELATIVE PERCENT (BEAKER) (test 21 % fhrd=031) MONOCYTES RELATIVE PERCENT (BEAKER) (test 16 % jnkd=587) EOSINOPHILS RELATIVE PERCENT (BEAKER) (test 6 % tfui=665) BASOPHILS RELATIVE PERCENT (BEAKER) (test 1 % hnit=183) NEUTROPHILS ABSOLUTE COUNT (BEAKER) (test 3.07 K/ L 1.78-5.38 qooi=744) LYMPHOCYTES ABSOLUTE COUNT (BEAKER) (test 1.17 K/ L 1.32-3.57 fodn=424) MONOCYTES ABSOLUTE COUNT (BEAKER) (test latu=514) 0.88 K/ L 0.30-0.82 EOSINOPHILS ABSOLUTE COUNT (BEAKER) (test 0.34 K/ L 0.04-0.54 bjpj=323) BASOPHILS ABSOLUTE COUNT (BEAKER) (test pbik=111) 0.05 K/ L 0.01-0.08 IMMATURE GRANULOCYTES-RELATIVE PERCENT (BEAKER) 1 % 0-1 (test gwjz=5928) BASIC METABOLIC [id number] 22:40:00 Test Item Value Reference Range Comments SODIUM (BEAKER) (test 156 meq/L 136-145 szah=129) POTASSIUM (BEAKER) (test 3.4 meq/L 3.5-5.1 Specimen slightly ztey=248) hemolyzed CHLORIDE (BEAKER) (test 127 meq/L 98-107 awsm=017) CO2 (BEAKER) (test 22 meq/L 22-29 lrnu=600) BLOOD UREA NITROGEN 12 mg/dL 7-21 (BEAKER) (test ihhi=577) CREATININE (BEAKER) (test 0.90 mg/dL 0.57-1.25 Specimen slightly iamj=061) hemolyzed GLUCOSE RANDOM (BEAKER) 111 mg/dL 70-105 (test bxit=124) CALCIUM (BEAKER) (test 9.9 mg/dL 8.4-10.2 dhoc=613) EGFR (BEAKER) (test 89 mL/min/1.73 sq m ESTIMATED GFR IS NOT zdox=5296) ACCURATE CREATININE CLEARANCE IN PREDICTING GLOMERULAR FILTRATION RATE. ESTIMATED GFR IS NOT APPLICABLE FOR DIALYSIS PATIENTS. Specimen markedly ictericBASIC METABOLIC [id number] 07:31:00 Test Item Value Reference Range Comments SODIUM (BEAKER) (test 156 meq/L 136-145 tejr=890) POTASSIUM (BEAKER) (test 2.7 meq/L 3.5-5.1 hjtu=266) CHLORIDE (BEAKER) (test 126 meq/L 98-107 joqu=682) CO2 (BEAKER) (test 25 meq/L 22-29 vzll=200) BLOOD UREA NITROGEN 10 mg/dL 7-21 (BEAKER) (test uodw=516) CREATININE (BEAKER) (test 0.94 mg/dL 0.57-1.25 tczo=031) GLUCOSE RANDOM (BEAKER) 106 mg/dL 70-105 (test ivlu=980) CALCIUM (BEAKER) (test 10.5 mg/dL 8.4-10.2 agea=506) EGFR (BEAKER) (test 84 mL/min/1.73 sq m ESTIMATED GFR IS NOT alqc=2280) ACCURATE CREATININE CLEARANCE IN PREDICTING GLOMERULAR FILTRATION RATE. ESTIMATED GFR IS NOT APPLICABLE FOR DIALYSIS PATIENTS. Specimen markedly ictericHEPATIC FUNCTION [id number] 07:18:00 Test Item Value Reference Range Comments TOTAL PROTEIN (BEAKER) (test gmha=365) 7.6 gm/dL 6.0-8.3 ALBUMIN (BEAKER) (test flmq=5353) 2.4 g/dL 3.5-5.0 BILIRUBIN TOTAL (BEAKER) (test jdab=397) 12.6 mg/dL 0.2-1.2 BILIRUBIN DIRECT (BEAKER) (test bpmj=409) 7.5 mg/dL 0.1-0.5 ALKALINE PHOSPHATASE (BEAKER) (test qeef=127) 232 U/L 40-150 AST (SGOT) (BEAKER) (test rwoo=813) 121 U/L 5-34 ALT (SGPT) (BEAKER) (test ktum=500) 54 U/L 6-55 Specimen markedly ictericCBC W/PLT COUNT & AUTO [id number] 07:11 :00 Test Item Value Reference Range Comments WHITE BLOOD CELL COUNT (BEAKER) (test pebk=464) 5.1 K/ L 3.5-10.5 RED BLOOD CELL COUNT (BEAKER) (test alsc=827) 2.81 M/ L 4.63-6.08 HEMOGLOBIN (BEAKER) (test tmqm=753) 10.3 GM/DL 13.7-17.5 HEMATOCRIT (BEAKER) (test dfqz=367) 32.3 % 40.1-51.0 MEAN CORPUSCULAR VOLUME (BEAKER) (test terg=356) 114.9 fL 79.0-92.2 MEAN CORPUSCULAR HEMOGLOBIN (BEAKER) (test 36.7 pg 25.7-32.2 grak=030) MEAN CORPUSCULAR HEMOGLOBIN CONC (BEAKER) (test 31.9 GM/DL 32.3-36.5 ehji=710) RED CELL DISTRIBUTION WIDTH (BEAKER) (test 27.0 % 11.6-14.4 njid=156) PLATELET COUNT (BEAKER) (test nudd=308) 57 K/CU MM 150-450 MEAN PLATELET VOLUME (BEAKER) (test pzyx=920) 10.6 fL 9.4-12.4 NUCLEATED RED BLOOD CELLS (BEAKER) (test 0 /100 WBC 0-0 htjs=878) NEUTROPHILS RELATIVE PERCENT (BEAKER) (test 64 % plht=184) LYMPHOCYTES RELATIVE PERCENT (BEAKER) (test 15 % ghrm=377) MONOCYTES RELATIVE PERCENT (BEAKER) (test 16 % ircu=889) EOSINOPHILS RELATIVE PERCENT (BEAKER) (test 5 % gdoj=157) BASOPHILS RELATIVE PERCENT (BEAKER) (test 1 % ffbp=293) NEUTROPHILS ABSOLUTE COUNT (BEAKER) (test 3.26 K/ L 1.78-5.38 dzbd=064) LYMPHOCYTES ABSOLUTE COUNT (BEAKER) (test 0.76 K/ L 1.32-3.57 xnid=745) MONOCYTES ABSOLUTE COUNT (BEAKER) (test kuvi=037) 0.80 K/ L 0.30-0.82 EOSINOPHILS ABSOLUTE COUNT (BEAKER) (test 0.23 K/ L 0.04-0.54 acne=081) BASOPHILS ABSOLUTE COUNT (BEAKER) (test togx=839) 0.05 K/ L 0.01-0.08 IMMATURE GRANULOCYTES-RELATIVE PERCENT (BEAKER) 0 % 0-1 (test kvot=8389) PROTHROMBIN [id number] 07:02:00 Test Item Value Reference Range Comments PROTIME (BEAKER) (test cvbw=749) 31.5 seconds 11.9-14.2 INR (BEAKER) (test jrdq=921) 3.3 <=5.9 Effective 10/09/2018: PT Reference Range ChangeNew: 11.9-14.2 Previous: 11.7- 14.7RECOMMENDED COUMADIN/WARFARIN INR THERAPY RANGESSTANDARD DOSE: 2.0-3.0 Includes: PROPHYLAXIS for venous thrombosis, systemic embolization; TREATMENT for venous thrombosis and/or pulmonary embolus.HIGH RISK: Target INR is2.5-3.5 for patients wiht mechanical heart valves.POCT-GLUCOSE [id number] 08:51:00 Test Item Value Reference Range Comments POC-GLUCOSE METER (BEAKER) 126 mg/dL 70-[address] [facility] [address] [facility] (test kjfo=7519) [facility] [address] BASIC METABOLIC [id number] 04:49:00 Test Item Value Reference Range Comments SODIUM (BEAKER) (test 152 meq/L 136-145 cddy=981) POTASSIUM (BEAKER) (test 2.8 meq/L 3.5-5.1 bjcz=997) CHLORIDE (BEAKER) (test 126 meq/L 98-107 csir=185) CO2 (BEAKER) (test 22 meq/L 22-29 laep=706) BLOOD UREA NITROGEN 10 mg/dL 7-21 (BEAKER) (test rhhs=168) CREATININE (BEAKER) (test 1.04 mg/dL 0.57-1.25 lqdy=553) GLUCOSE RANDOM (BEAKER) 113 mg/dL 70-105 (test vniw=051) CALCIUM (BEAKER) (test 10.1 mg/dL 8.4-10.2 uzzy=632) EGFR (BEAKER) (test 75 mL/min/1.73 sq m ESTIMATED GFR IS NOT njmv=2418) ACCURATE CREATININE CLEARANCE IN PREDICTING GLOMERULAR FILTRATION RATE. ESTIMATED GFR IS NOT APPLICABLE FOR DIALYSIS PATIENTS. Specimen markedly ictericHEPATIC FUNCTION [id number] 04:11:00 Test Item Value Reference Range Comments TOTAL PROTEIN (BEAKER) (test xujo=310) 7.5 gm/dL 6.0-8.3 ALBUMIN (BEAKER) (test elos=9909) 2.3 g/dL 3.5-5.0 BILIRUBIN TOTAL (BEAKER) (test pbhs=954) 13.4 mg/dL 0.2-1.2 BILIRUBIN DIRECT (BEAKER) (test gfaf=083) 8.0 mg/dL 0.1-0.5 ALKALINE PHOSPHATASE (BEAKER) (test braz=328) 172 U/L 40-150 AST (SGOT) (BEAKER) (test qrcz=339) 98 U/L 5-34 ALT (SGPT) (BEAKER) (test wycp=681) 49 U/L 6-55 Specimen markedly ictericPROTHROMBIN [id number] 03:51:00 Test Item Value Reference Range Comments PROTIME (BEAKER) (test eqin=673) 30.0 seconds 11.9-14.2 INR (BEAKER) (test qocg=060) 3.0 <=5.9 Effective 10/09/2018: PT Reference Range ChangeNew: 11.9-14.2 Previous: 11.7- 14.7RECOMMENDED COUMADIN/WARFARIN INR THERAPY RANGESSTANDARD DOSE: 2.0-3.0 Includes: PROPHYLAXIS for venous thrombosis, systemic embolization; TREATMENT for venous thrombosis and/or pulmonary embolus.HIGH RISK: Target INR is2.5-3.5 for patients wiht mechanical heart valves.CBC W/PLT COUNT & AUTO [id number] 03:49:00 Test Item Value Reference Range Comments WHITE BLOOD CELL COUNT (BEAKER) (test nysv=718) 4.9 K/ L 3.5-10.5 RED BLOOD CELL COUNT (BEAKER) (test pvpq=195) 2.66 M/ L 4.63-6.08 HEMOGLOBIN (BEAKER) (test eyvu=633) 9.7 GM/DL 13.7-17.5 HEMATOCRIT (BEAKER) (test yvhh=178) 30.3 % 40.1-51.0 MEAN CORPUSCULAR VOLUME (BEAKER) (test nrjo=814) 113.9 fL 79.0-92.2 MEAN CORPUSCULAR HEMOGLOBIN (BEAKER) (test 36.5 pg 25.7-32.2 zqbc=868) MEAN CORPUSCULAR HEMOGLOBIN CONC (BEAKER) (test 32.0 GM/DL 32.3-36.5 trqk=603) RED CELL DISTRIBUTION WIDTH (BEAKER) (test 27.6 % 11.6-14.4 xuwp=732) PLATELET COUNT (BEAKER) (test okui=039) 62 K/CU MM 150-450 MEAN PLATELET VOLUME (BEAKER) (test yvxf=850) 11.0 fL 9.4-12.4 NUCLEATED RED BLOOD CELLS (BEAKER) (test 0 /100 WBC 0-0 atlx=205) NEUTROPHILS RELATIVE PERCENT (BEAKER) (test 68 % qesz=366) LYMPHOCYTES RELATIVE PERCENT (BEAKER) (test 16 % bzqt=746) MONOCYTES RELATIVE PERCENT (BEAKER) (test 13 % juzg=698) EOSINOPHILS RELATIVE PERCENT (BEAKER) (test 3 % dapi=085) BASOPHILS RELATIVE PERCENT (BEAKER) (test 1 % fqqd=116) NEUTROPHILS ABSOLUTE COUNT (BEAKER) (test 3.30 K/ L 1.78-5.38 ghtn=577) LYMPHOCYTES ABSOLUTE COUNT (BEAKER) (test 0.77 K/ L 1.32-3.57 gowa=348) MONOCYTES ABSOLUTE COUNT (BEAKER) (test tckx=357) 0.62 K/ L 0.30-0.82 EOSINOPHILS ABSOLUTE COUNT (BEAKER) (test 0.13 K/ L 0.04-0.54 mvdk=341) BASOPHILS ABSOLUTE COUNT (BEAKER) (test ihgd=612) 0.03 K/ L 0.01-0.08 IMMATURE GRANULOCYTES-RELATIVE PERCENT (BEAKER) 1 % 0-1 (test gutc=0800) POCT-GLUCOSE [id number] 00:48:00 Test Item Value Reference Range Comments POC-GLUCOSE METER (BEAKER) 114 mg/dL 70-[address] [facility] [address] (test wmft=1529) [facility] [address] CT, BRAIN, WITHOUT [id number] 17:09:00Reason for exam:-> LethargicFINAL REPORT CT, BRAIN, [...] AL MD on 2018 05:09 PMMISCELLANEOUS LAB [id number] 07:34:00 Test Item Value Reference Range Comments SCAN RESULT (test hvaw=[id number]) CBC W/PLT COUNT & AUTO [id number] 05:22:00 Test Item Value Reference Range Comments WHITE BLOOD CELL COUNT (BEAKER) (test lwfi=732) 5.1 K/ L 3.5-10.5 RED BLOOD CELL COUNT (BEAKER) (test ugap=509) 2.45 M/ L 4.63-6.08 HEMOGLOBIN (BEAKER) (test kixr=526) 9.0 GM/DL 13.7-17.5 HEMATOCRIT (BEAKER) (test bvym=739) 27.9 % 40.1-51.0 MEAN CORPUSCULAR VOLUME (BEAKER) (test qpop=095) 113.9 fL 79.0-92.2 MEAN CORPUSCULAR HEMOGLOBIN (BEAKER) (test 36.7 pg 25.7-32.2 aupp=372) MEAN CORPUSCULAR HEMOGLOBIN CONC (BEAKER) (test 32.3 GM/DL 32.3-36.5 sfzh=942) RED CELL DISTRIBUTION WIDTH (BEAKER) (test 27.3 % 11.6-14.4 vvka=903) PLATELET COUNT (BEAKER) (test qrer=465) 66 K/CU MM 150-450 MEAN PLATELET VOLUME (BEAKER) (test bfww=651) 10.4 fL 9.4-12.4 NUCLEATED RED BLOOD CELLS (BEAKER) (test 0 /100 WBC 0-0 pnqx=578) NEUTROPHILS RELATIVE PERCENT (BEAKER) (test 69 % njtv=022) LYMPHOCYTES RELATIVE PERCENT (BEAKER) (test 15 % pyex=598) MONOCYTES RELATIVE PERCENT (BEAKER) (test 12 % nayd=570) EOSINOPHILS RELATIVE PERCENT (BEAKER) (test 3 % nhqg=098) BASOPHILS RELATIVE PERCENT (BEAKER) (test 0 % oxob=381) NEUTROPHILS ABSOLUTE COUNT (BEAKER) (test 3.56 K/ L 1.78-5.38 dpxk=854) LYMPHOCYTES ABSOLUTE COUNT (BEAKER) (test 0.75 K/ L 1.32-3.57 oocx=671) MONOCYTES ABSOLUTE COUNT (BEAKER) (test sujg=349) 0.59 K/ L 0.30-0.82 EOSINOPHILS ABSOLUTE COUNT (BEAKER) (test 0.17 K/ L 0.04-0.54 uhnv=579) BASOPHILS ABSOLUTE COUNT (BEAKER) (test mmjq=780) 0.02 K/ L 0.01-0.08 IMMATURE GRANULOCYTES-RELATIVE PERCENT (BEAKER) 1 % 0-1 (test xana=0729) PROTHROMBIN [id number] 05:00:00 Test Item Value Reference Range Comments PROTIME (BEAKER) (test hcsu=869) 30.6 seconds 11.9-14.2 INR (BEAKER) (test efnu=427) 3.1 <=5.9 Effective 10/09/2018: PT Reference Range ChangeNew: 11.9-14.2 Previous: 11.7- 14.7RECOMMENDED COUMADIN/WARFARIN INR THERAPY RANGESSTANDARD DOSE: 2.0-3.0 Includes: PROPHYLAXIS for venous thrombosis, systemic embolization; TREATMENT for venous thrombosis and/or pulmonary embolus.HIGH RISK: Target INR is2.5-3.5 for patients wiht mechanical heart valves.BASIC METABOLIC [id number] 04:47: 00 Test Item Value Reference Range Comments SODIUM (BEAKER) (test 147 meq/L 136-145 khzb=217) POTASSIUM (BEAKER) (test 3.9 meq/L 3.5-5.1 Specimen moderately alzw=713) hemolyzed CHLORIDE (BEAKER) (test 122 meq/L 98-107 dslb=330) CO2 (BEAKER) (test 19 meq/L 22-29 hqbn=826) BLOOD UREA NITROGEN 9 mg/dL 7-21 (BEAKER) (test avuq=544) CREATININE (BEAKER) (test 0.84 mg/dL 0.57-1.25 Specimen moderately qzte=257) hemolyzed GLUCOSE RANDOM (BEAKER) 116 mg/dL 70-105 (test mumv=205) CALCIUM (BEAKER) (test 9.4 mg/dL 8.4-10.2 fvnq=693) EGFR (BEAKER) (test 96 mL/min/1.73 sq m ESTIMATED GFR IS NOT vfit=4930) ACCURATE CREATININE CLEARANCE IN PREDICTING GLOMERULAR FILTRATION RATE. ESTIMATED GFR IS NOT APPLICABLE FOR DIALYSIS PATIENTS. Specimen markedly [id number] 04:46:00 Test Item Value Reference Range Comments MAGNESIUM (BEAKER) (test 1.7 mg/dL 1.6-2.6 Specimen moderately hemolyzed sytj=799) [id number] 04:46:00 Test Item Value Reference Range Comments PHOSPHORUS (BEAKER) (test 2.3 mg/dL 2.3-4.7 Specimen moderately hemolyzed kprq=894) HEPATIC FUNCTION [id number] 04:46:00 Test Item Value Reference Range Comments TOTAL PROTEIN (BEAKER) (test 7.5 gm/dL 6.0-8.3 Specimen moderately ufxv=682) hemolyzed ALBUMIN (BEAKER) (test 2.3 g/dL 3.5-5.0 Specimen moderately huxt=7537) hemolyzed BILIRUBIN TOTAL (BEAKER) (test 14.4 mg/dL 0.2-1.2 Specimen moderately vzgh=024) hemolyzed BILIRUBIN DIRECT (BEAKER) 8.4 mg/dL 0.1-0.5 Specimen moderately (test dnje=330) hemolyzed ALKALINE PHOSPHATASE (BEAKER) 134 U/L 40-150 (test gqkf=393) AST (SGOT) (BEAKER) (test 89 U/L 5-34 Specimen moderately vpsm=622) hemolyzed ALT (SGPT) (BEAKER) (test 41 U/L 6-55 Specimen moderately qosn=813) hemolyzed Specimen markedly ictericRAD, MANDIBLE, MIN 4 [id number] 01:52:00Reason for exam:->liver transplant evalShould this be [...] and mastoid air cellsare clear. Signed: Karyn Thompson [facility] Verified Date/Time: 02/14/2019 01:52:48 Electronically signed by: KARYN THOMPSON MD on 01:52 AMCT, [id number] 17:50:00Is this for enterography?-> NoReason for exam:->abdominal [...] left pleural effusion. 5.Trace pelvic ascites.Signed: Estuardo Singh MDReport Verified Date/Time : 02/13/2019 17:50:20 Reading Location: [facility] C013Y CT Body Reading Room CYTOMEGALOVIRUS ANTIBODY, [id number] 14:06:00 Test Item Value Reference Range Comments CYTOMEGALOVIRUS, IGG (BEAKER) (test vlja=7212) Positive Negative, Equivocal CMV IgG Result Interpretation: </=0.8 Al Negative 0.9-1.0 Al Equivocal &gt ;/=1.1 Al PositiveRUBELLA ANTIBODY, [id number] 14:06:00 Test Item Value Reference Range Comments RUBELLA IGG QUANTITATION (BEAKER) (test qovg=544) 73.0 IU/mL <8.0 Rubella IgG Result Interpretation: </=7.0 IU/mL Negative - Presumed non- immune 8.0 - 9.9 IU/mL Equivocal >=10.0 IU/mL Positive - Presumed immuneLACTIC ACID, [id number] 13:56:00 Test Item Value Reference Range Comments LACTATE BLOOD VENOUS (2) 1.7 mmol/L 0.5-2.2 Specimen markedly hemolyzed (BEAKER) (test bdjz=6771) Specimen markedly ictericCYTOMEGALOVIRUS ANTIBODY, [id number] 11:45:00 Test Item Value Reference Range Comments CYTOMEGALOVIRUS IGM ANTIBODY (BEAKER) (test Negative Negative, Equivocal ihab=2838) CMV IgM Result Interpretation: </=0.8 Al Negative 0.9-1.0 Al Equivocal >/=1.1 Al PositiveEBV ANTIBODY, [id number] 11:45:00 Test Item Value Reference Range Comments FEROZ VALENTINO VIRAL CAPSID ANTIGEN IGG (BEAKER) Positive Negative, Equivocal (test ixia=4644) Feroz Valentino Viral Capsid Antigen IgG Result Interpretation: </=0.8 Al Negative 0.9-1.0 Al Equivocal >/=1.1 Al PositiveEBV ANTIBODY, [id number] 11:45:00 Test Item Value Reference Range Comments FEROZ VALENTINO VIRAL CAPSID ANTIGEN IGM (BEAKER) Negative Negative, Equivocal (test ozpx=9600) Feroz Valentino Viral Capsid Antigen IgM Result Interpretation: </=0.8 Al Negative 0.9-1.0 Al Equivocal >/=1.1 Al PositiveVARICELLA ZOSTER ANTIBODY , [id number] 11:45:00 Test Item Value Reference Range Comments VARICELLA ZOSTER IGG (AL) (BEAKER) (test qbhp=5067) 7.3 VARICELLA ZOSTER RESULT INTERPRETATIONS: <=0.8 Al Nonreactive: Presumed non-immune to VZV 0.9-1.0 Al Equivocal >=1.1 Al Reactive: Presumed immune to VZVHEPATIC FUNCTION [id number] 10:22:00 Test Item Value Reference Range Comments TOTAL PROTEIN (BEAKER) (test tjyo=362) 6.9 gm/dL 6.0-8.3 ALBUMIN (BEAKER) (test bbit=3919) 2.2 g/dL 3.5-5.0 BILIRUBIN TOTAL (BEAKER) (test npcm=975) 15.2 mg/dL 0.2-1.2 BILIRUBIN DIRECT (BEAKER) (test glgf=662) 8.7 mg/dL 0.1-0.5 ALKALINE PHOSPHATASE (BEAKER) (test sniq=833) 134 U/L 40-150 AST (SGOT) (BEAKER) (test lkdd=620) 66 U/L 5-34 ALT (SGPT) (BEAKER) (test vuml=124) 45 U/L 6-55 Specimen markedly [id number] 09:16:00 Test Item Value Reference Range Comments AMMONIA (BEAKER) (test peji=080) 140 mol/L 18-72 [id number] 08:05:00 Test Item Value Reference Range Comments T3 TOTAL (BEAKER) (test hdsu=555) 46 ng/dL 48-159 Reference range 76-181 ng/dl PER [facility] [id number] 04:37 :00 Test Item Value Reference Range Comments PHOSPHORUS (BEAKER) (test abcy=885) 1.9 mg/dL 2.3-4.7 [id number] 04:37:00 Test Item Value Reference Range Comments MAGNESIUM (BEAKER) (test ldvq=077) 1.6 mg/dL 1.6-2.6 BASIC METABOLIC [id number] 04:37:00 Test Item Value Reference Range Comments SODIUM (BEAKER) (test 143 meq/L 136-145 mzyg=004) POTASSIUM (BEAKER) (test 3.0 meq/L 3.5-5.1 ausd=581) CHLORIDE (BEAKER) (test 120 meq/L 98-107 gdpq=648) CO2 (BEAKER) (test 18 meq/L 22-29 kqzq=707) BLOOD UREA NITROGEN 6 mg/dL 7-21 (BEAKER) (test pzjp=479) CREATININE (BEAKER) (test 1.01 mg/dL 0.57-1.25 iiou=269) GLUCOSE RANDOM (BEAKER) 101 mg/dL 70-105 (test wzbf=161) CALCIUM (BEAKER) (test 9.4 mg/dL 8.4-10.2 tidg=556) EGFR (BEAKER) (test 78 mL/min/1.73 sq m ESTIMATED GFR IS NOT dprf=1142) ACCURATE CREATININE CLEARANCE IN PREDICTING GLOMERULAR FILTRATION RATE. ESTIMATED GFR IS NOT APPLICABLE FOR DIALYSIS PATIENTS. Specimen markedly ictericPROTHROMBIN [id number] 04:28:00 Test Item Value Reference Range Comments PROTIME (BEAKER) (test jsqm=666) 30.0 seconds 11.9-14.2 INR (BEAKER) (test yudo=612) 3.1 <=5.9 Effective 10/09/2018: PT Reference Range ChangeNew: 11.9-14.2 Previous: 11.7- 14.7RECOMMENDED COUMADIN/WARFARIN INR THERAPY RANGESSTANDARD DOSE: 2.0-3.0 Includes: PROPHYLAXIS for venous thrombosis, systemic embolization; TREATMENT for venous thrombosis and/or pulmonary embolus.HIGH RISK: Target INR is2.5-3.5 for patients wiht mechanical heart valves.CBC W/PLT COUNT & AUTO [id number] 04:16:00 Test Item Value Reference Range Comments WHITE BLOOD CELL COUNT (BEAKER) (test kpaa=844) 5.1 K/ L 3.5-10.5 RED BLOOD CELL COUNT (BEAKER) (test yrfm=557) 2.43 M/ L 4.63-6.08 HEMOGLOBIN (BEAKER) (test cpcy=683) 8.7 GM/DL 13.7-17.5 HEMATOCRIT (BEAKER) (test zdmt=758) 26.5 % 40.1-51.0 MEAN CORPUSCULAR VOLUME (BEAKER) (test iijm=968) 109.1 fL 79.0-92.2 MEAN CORPUSCULAR HEMOGLOBIN (BEAKER) (test 35.8 pg 25.7-32.2 ebcn=277) MEAN CORPUSCULAR HEMOGLOBIN CONC (BEAKER) (test 32.8 GM/DL 32.3-36.5 lqrn=394) RED CELL DISTRIBUTION WIDTH (BEAKER) (test 26.3 % 11.6-14.4 bkri=182) PLATELET COUNT (BEAKER) (test vgbp=620) 67 K/CU MM 150-450 MEAN PLATELET VOLUME (BEAKER) (test wxsg=492) 10.5 fL 9.4-12.4 NUCLEATED RED BLOOD CELLS (BEAKER) (test 0 /100 WBC 0-0 zgun=040) NEUTROPHILS RELATIVE PERCENT (BEAKER) (test 75 % bowm=426) LYMPHOCYTES RELATIVE PERCENT (BEAKER) (test 11 % qjry=312) MONOCYTES RELATIVE PERCENT (BEAKER) (test 10 % pfjn=876) EOSINOPHILS RELATIVE PERCENT (BEAKER) (test 4 % wcqx=046) BASOPHILS RELATIVE PERCENT (BEAKER) (test 0 % fxmi=870) NEUTROPHILS ABSOLUTE COUNT (BEAKER) (test 3.80 K/ L 1.78-5.38 gdtd=817) LYMPHOCYTES ABSOLUTE COUNT (BEAKER) (test 0.57 K/ L 1.32-3.57 rbzy=625) MONOCYTES ABSOLUTE COUNT (BEAKER) (test gxfi=472) 0.50 K/ L 0.30-0.82 EOSINOPHILS ABSOLUTE COUNT (BEAKER) (test 0.18 K/ L 0.04-0.54 xugr=290) BASOPHILS ABSOLUTE COUNT (BEAKER) (test wzvt=191) 0.02 K/ L 0.01-0.08 IMMATURE GRANULOCYTES-RELATIVE PERCENT (BEAKER) 1 % 0-1 (test gnea=2161) POCT-GLUCOSE [id number] 03:54:00 Test Item Value Reference Range Comments POC-GLUCOSE METER (BEAKER) 108 mg/dL 70-[address] [facility] [address] [facility] (test comg=7184) [facility] [address] RAD, ABDOMEN/KUB, 1 VIEW [id number] 00:58:00Reason for exam:->Coretrak placementShould this be performed [...] visualized osseous structures are unremarkable. Signed: Karyn Thompson [facility] Verified Date/Time: 02/13/2019 00: 58:21 12: 58 AMRAD, CHEST, 1 VIEW, NON [id number] 18:57:00Reason for exam:-> evaluate for infection, altered [...] and enteritis are both possible. Signed: Estuardo Singh MDRep[facility] Verified Date/Time: 18:57:37 Reading Location: [facility] B1 C013W Consult Reading Room RAD, ABDOMEN /KUB, 1 VIEW [id number] 18:57:00Reason for exam:->evaluate for constipation , abdominal [...] and enteritis are both possible. Signed: Estuardo Singh MDRep[facility] Verified Date/Time : 02/12/2019 18:57:37 Reading Location: [facility] B1 C013W Consult Reading Room URINALYSIS W / REFLEX URINE [id number] 16:56:00 Test Item Value Reference Range Comments COLOR (BEAKER) (test kfwe=254) Dark Yellow CLARITY (BEAKER) (test fsgw=836) Hazy SPECIFIC GRAVITY UA (BEAKER) (test wqrb=530) 1.012 1.001-1.035 PH UA (BEAKER) (test ldbt=822) 7.0 5.0-8.0 PROTEIN UA (BEAKER) (test srqi=492) Negative Negative GLUCOSE UA (BEAKER) (test tmal=355) Negative Negative KETONES UA (BEAKER) (test pdvb=903) Trace Negative BILIRUBIN UA (BEAKER) (test camu=035) Positive Negative BLOOD UA (BEAKER) (test nprz=717) Negative Negative NITRITE UA (BEAKER) (test oxpt=039) Negative Negative LEUKOCYTE ESTERASE UA (BEAKER) (test gsvk=422) Negative Negative UROBILINOGEN UA (BEAKER) (test shoe=716) 2.0 mg/dL 0.2-1.0 RBC UA (BEAKER) (test mygl=579) < /HPF WBC UA (BEAKER) (test kkqt=253) 1 /HPF SQUAMOUS EPITHELIAL (BEAKER) (test fbhn=354) 1 /HPF SOURCE(BEAKER) (test njsv=9961) [id number] 11:34:00 Test Item Value Reference Range Comments RPR SCREEN (BEAKER) (test qjxf=747) Nonreactive Nonreactive TAMAR TITER AND [id number] 09:52:00 Test Item Value Reference Range Comments TAMAR TITER (BEAKER) (test :160 gygt=9361) TAMAR PATTERN (BEAKER) (test Atypical Speckled - uncertain itzf=4107) clinical significance, suggest TAMAR profile. ANTI-NUCLEAR ANTIBODY (TAMAR)2019-02-12 09:51:00 Test Item Value Reference Range Comments ANTI-NUCLEAR ANTIBODY (TAMAR) (BEAKER) (test Positive Negative eejh=464) Test performed by IFA method.HEMOGLOBIN [id number] 09:22:00 Test Item Value Reference Range Comments HEMOGLOBIN A1C (BEAKER) (test rdsd=790) 4.5 % 4.3-6.1 [id number] 07:32:00 Test Item Value Reference Range Comments PHOSPHORUS (BEAKER) (test spyn=424) 2.3 mg/dL 2.3-4.7 [id number] 07:32:00 Test Item Value Reference Range Comments MAGNESIUM (BEAKER) (test gztl=169) 1.6 mg/dL 1.6-2.6 BASIC METABOLIC [id number] 07:32:00 Test Item Value Reference Range Comments SODIUM (BEAKER) (test 137 meq/L 136-145 yjrv=786) POTASSIUM (BEAKER) (test 3.0 meq/L 3.5-5.1 pujt=481) CHLORIDE (BEAKER) (test 112 meq/L 98-107 qpam=457) CO2 (BEAKER) (test 19 meq/L 22-29 mbyc=095) BLOOD UREA NITROGEN 5 mg/dL 7-21 (BEAKER) (test kzgm=825) CREATININE (BEAKER) (test 1.22 mg/dL 0.57-1.25 bfbz=081) GLUCOSE RANDOM (BEAKER) 96 mg/dL 70-105 (test yodp=801) CALCIUM (BEAKER) (test 8.8 mg/dL 8.4-10.2 uiur=882) EGFR (BEAKER) (test 62 mL/min/1.73 sq m ESTIMATED GFR IS NOT anyx=1489) ACCURATE CREATININE CLEARANCE IN PREDICTING GLOMERULAR FILTRATION RATE. ESTIMATED GFR IS NOT APPLICABLE FOR DIALYSIS PATIENTS. Specimen markedly ictericHEPATIC FUNCTION [id number] 07:32:00 Test Item Value Reference Range Comments TOTAL PROTEIN (BEAKER) (test oeal=874) 7.1 gm/dL 6.0-8.3 ALBUMIN (BEAKER) (test mbsn=2044) 2.3 g/dL 3.5-5.0 BILIRUBIN TOTAL (BEAKER) (test mwnu=847) 16.8 mg/dL 0.2-1.2 BILIRUBIN DIRECT (BEAKER) (test bhdb=836) 9.8 mg/dL 0.1-0.5 ALKALINE PHOSPHATASE (BEAKER) (test irov=086) 147 U/L 40-150 AST (SGOT) (BEAKER) (test hizu=434) 67 U/L 5-34 ALT (SGPT) (BEAKER) (test ncmf=819) 47 U/L 6-55 Specimen markedly ictericPROTHROMBIN [id number] 06:26:00 Test Item Value Reference Range Comments PROTIME (BEAKER) (test soum=733) 28.5 seconds 11.9-14.2 INR (BEAKER) (test oryz=638) 2.9 <=5.9 Effective 10/09/2018: PT Reference Range ChangeNew: 11.9-14.2 Previous: 11.7- 14.7RECOMMENDED COUMADIN/WARFARIN INR THERAPY RANGESSTANDARD DOSE: 2.0-3.0 Includes: PROPHYLAXIS for venous thrombosis, systemic embolization; TREATMENT for venous thrombosis and/or pulmonary embolus.HIGH RISK: Target INR is2.5-3.5 for patients wiht mechanical heart valves.CBC W/PLT COUNT & AUTO [id number] 06:21:00 Test Item Value Reference Range Comments WHITE BLOOD CELL COUNT (BEAKER) (test jasc=838) 4.4 K/ L 3.5-10.5 RED BLOOD CELL COUNT (BEAKER) (test ddbq=389) 2.33 M/ L 4.63-6.08 HEMOGLOBIN (BEAKER) (test pekl=812) 8.5 GM/DL 13.7-17.5 HEMATOCRIT (BEAKER) (test pxoo=608) 25.4 % 40.1-51.0 MEAN CORPUSCULAR VOLUME (BEAKER) (test nooa=680) 109.0 fL 79.0-92.2 MEAN CORPUSCULAR HEMOGLOBIN (BEAKER) (test 36.5 pg 25.7-32.2 iiyq=772) MEAN CORPUSCULAR HEMOGLOBIN CONC (BEAKER) (test 33.5 GM/DL 32.3-36.5 fboi=758) RED CELL DISTRIBUTION WIDTH (BEAKER) (test 26.3 % 11.6-14.4 pevf=848) PLATELET COUNT (BEAKER) (test ndga=611) 60 K/CU MM 150-450 MEAN PLATELET VOLUME (BEAKER) (test qrae=174) 10.8 fL 9.4-12.4 NUCLEATED RED BLOOD CELLS (BEAKER) (test 0 /100 WBC 0-0 nbeg=931) NEUTROPHILS RELATIVE PERCENT (BEAKER) (test 75 % jzwe=171) LYMPHOCYTES RELATIVE PERCENT (BEAKER) (test 13 % wdvb=980) MONOCYTES RELATIVE PERCENT (BEAKER) (test 9 % jnet=921) EOSINOPHILS RELATIVE PERCENT (BEAKER) (test 3 % dpxj=964) BASOPHILS RELATIVE PERCENT (BEAKER) (test 0 % eesu=754) NEUTROPHILS ABSOLUTE COUNT (BEAKER) (test 3.28 K/ L 1.78-5.38 mcag=026) LYMPHOCYTES ABSOLUTE COUNT (BEAKER) (test 0.55 K/ L 1.32-3.57 lneo=689) MONOCYTES ABSOLUTE COUNT (BEAKER) (test ueux=425) 0.38 K/ L 0.30-0.82 EOSINOPHILS ABSOLUTE COUNT (BEAKER) (test 0.13 K/ L 0.04-0.54 pvvz=029) BASOPHILS ABSOLUTE COUNT (BEAKER) (test kgal=706) 0.01 K/ L 0.01-0.08 IMMATURE GRANULOCYTES-RELATIVE PERCENT (BEAKER) 1 % 0-1 (test iire=3037) LIPID [id number] 19:54:00 Test Item Value Reference Range Comments TRIGLYCERIDES (BEAKER) (test pyqc=390) 52 mg/dL CHOLESTEROL (BEAKER) (test srhl=880) 49 mg/dL HDL CHOLESTEROL (BEAKER) (test lswr=601) 15 mg/dL LDL CHOLESTEROL CALCULATED (BEAKER) (test reby=046) 24 mg/dL Triglyceride Reference Range: Low Risk <150 Borderline 150- 199 High Risk 200-499 Very High Risk >=500Cholesterol Reference Range: Low Risk <200 Borderline 200-239 High Risk > 240HDL Cholesterol Reference Range: Low Risk >=60 High Risk <40LDL Cholesterol Reference Range: Optimal <100 Near Optimal 100-129 Borderline 130-159 High 160-189 Very High >=190 Specimen markedly [id number] 19:52:00 Test Item Value Reference Range Comments MAGNESIUM (BEAKER) (test wbqh=321) 1.6 mg/dL 1.6-2.6 URIC [id number] 19:52:00 Test Item Value Reference Range Comments URIC ACID (BEAKER) (test kcss=794) 2.7 mg/dL 2.6-7.2 Specimen markedly ictericGAMMA GLUTAMYL TRANSFERASE (GGT)2019-02-11 19:52:00 Test Item Value Reference Range Comments GAMMA GLUTAMYL TRANSFERASE (BEAKER) (test dbcs=817) 73 U/L 9-64 Specimen markedly [id number] 19:09:00 Test Item Value Reference Range Comments PROSTATE SPECIFIC ANTIGEN (BEAKER) (test fgao=093) 0.2 ng/mL 0.0-4.0 CARCINOEMBRYONIC ANTIGEN (CEA)2019-02-11 19:09:00 Test Item Value Reference Range Comments CARCINOEMBRYONIC ANTIGEN (BEAKER) (test jnml=931) 7.4 ng/mL 0.0-5.0 VITAMIN D, 12-[id number] 19:00:00 Test Item Value Reference Range Comments VITAMIN D 25-OH (BEAKER) (test nkrz=5730) 6.2 ng/mL 6.6-49.9 Effective 02/21/2017: Reference Range ChangeNew: 6.6-49.9 ng/mL Previous: 13.0 -47.8 ng/mLRecommended Vitamin D Target Range: 30.0-40.0 ng/[id number] 18:48:00 Test Item Value Reference Range Comments AMMONIA (BEAKER) (test wino=787) 203 mol/L 18-72 [id number] 18:35:00 Test Item Value Reference Range Comments TRANSFERRIN (BEAKER) (test kdft=167) 96 mg/dL 174-382 Specimen markedly sirfvykMYSAO-9-[id number] 18:35:00 Test Item Value Reference Range Comments ALPHA-1 ANTITRYPSIN (BEAKER) (test alyx=889) 97.70 mg/dL 90.00-200.00 [id number] 18:10:00 Test Item Value Reference Range Comments T4 TOTAL (BEAKER) (test jyvl=416) 4.1 ug/dL 4.9-11.7 [id number] 18:10:00 Test Item Value Reference Range Comments THYROID STIMULATING HORMONE (BEAKER) (test 1.72 uIU/mL 0.35-4.94 utjc=678) [id number] 17:49:00 Test Item Value Reference Range Comments POTASSIUM (BEAKER) (test pnji=553) 3.0 meq/L 3.5-5.1 [id number] 17:49:00 Test Item Value Reference Range Comments PHOSPHORUS (BEAKER) (test awxz=178) 2.2 mg/dL 2.3-4.7 BILIRUBIN, [id number] 17:49:00 Test Item Value Reference Range Comments BILIRUBIN DIRECT (BEAKER) (test oqnk=621) 9.6 mg/dL 0.1-0.5 [id number] 17:47:00 Test Item Value Reference Range Comments ETHANOL (BEAKER) (test wqmt=918) < mg/dL <=10 [id number] 15:40:00 Test Item Value Reference Range Comments FERRITIN (BEAKER) (test ehmi=132) 294 ng/mL 5-275 [id number] 11:27:00 Test Item Value Reference Range Comments AMYLASE (BEAKER) (test etyh=681) 32 U/L 25-125 Specimen markedly [id number] 11:27:00 Test Item Value Reference Range Comments LIPASE (BEAKER) (test xmfg=491) 33 U/L 8-78 Specimen markedly ictericBASIC METABOLIC [id number] 07:16:00 Test Item Value Reference Range Comments SODIUM (BEAKER) (test 135 meq/L 136-145 oasn=002) POTASSIUM (BEAKER) (test 2.6 meq/L 3.5-5.1 bozx=707) CHLORIDE (BEAKER) (test 111 meq/L 98-107 dnoy=373) CO2 (BEAKER) (test 20 meq/L 22-29 igtj=273) BLOOD UREA NITROGEN 5 mg/dL 7-21 (BEAKER) (test gzqp=740) CREATININE (BEAKER) (test 1.42 mg/dL 0.57-1.25 fnnz=545) GLUCOSE RANDOM (BEAKER) 120 mg/dL 70-105 (test iqth=262) CALCIUM (BEAKER) (test 8.1 mg/dL 8.4-10.2 rkmr=258) EGFR (BEAKER) (test 52 mL/min/1.73 sq m ESTIMATED GFR IS NOT sbir=4853) ACCURATE CREATININE CLEARANCE IN PREDICTING GLOMERULAR FILTRATION RATE. ESTIMATED GFR IS NOT APPLICABLE FOR DIALYSIS PATIENTS. Specimen markedly ictericHEPATIC FUNCTION [id number] 06:55:00 Test Item Value Reference Range Comments TOTAL PROTEIN (BEAKER) (test ftsw=998) 6.2 gm/dL 6.0-8.3 ALBUMIN (BEAKER) (test vkiw=3810) 2.1 g/dL 3.5-5.0 BILIRUBIN TOTAL (BEAKER) (test nrfa=580) 15.0 mg/dL 0.2-1.2 BILIRUBIN DIRECT (BEAKER) (test pxzf=820) 8.7 mg/dL 0.1-0.5 ALKALINE PHOSPHATASE (BEAKER) (test qsqw=432) 133 U/L 40-150 AST (SGOT) (BEAKER) (test zxzd=611) 68 U/L 5-34 ALT (SGPT) (BEAKER) (test sgin=862) 44 U/L 6-55 Specimen markedly ictericCBC W/PLT COUNT & AUTO [id number] 06:45 :00 Test Item Value Reference Range Comments WHITE BLOOD CELL COUNT (BEAKER) (test xsxy=532) 3.8 K/ L 3.5-10.5 RED BLOOD CELL COUNT (BEAKER) (test vuqv=034) 1.89 M/ L 4.63-6.08 HEMOGLOBIN (BEAKER) (test vgck=792) 7.0 GM/DL 13.7-17.5 HEMATOCRIT (BEAKER) (test wkdm=999) 20.9 % 40.1-51.0 MEAN CORPUSCULAR VOLUME (BEAKER) (test ovcq=655) 110.6 fL 79.0-92.2 MEAN CORPUSCULAR HEMOGLOBIN (BEAKER) (test 37.0 pg 25.7-32.2 calo=032) MEAN CORPUSCULAR HEMOGLOBIN CONC (BEAKER) (test 33.5 GM/DL 32.3-36.5 blad=309) RED CELL DISTRIBUTION WIDTH (BEAKER) (test 25.2 % 11.6-14.4 blhm=563) PLATELET COUNT (BEAKER) (test usji=668) 56 K/CU MM 150-450 MEAN PLATELET VOLUME (BEAKER) (test wqet=355) 11.6 fL 9.4-12.4 NUCLEATED RED BLOOD CELLS (BEAKER) (test 0 /100 WBC 0-0 fzac=727) NEUTROPHILS RELATIVE PERCENT (BEAKER) (test 73 % oyib=716) LYMPHOCYTES RELATIVE PERCENT (BEAKER) (test 12 % srbb=450) MONOCYTES RELATIVE PERCENT (BEAKER) (test 10 % djnz=982) EOSINOPHILS RELATIVE PERCENT (BEAKER) (test 4 % taor=204) BASOPHILS RELATIVE PERCENT (BEAKER) (test 0 % xlim=146) NEUTROPHILS ABSOLUTE COUNT (BEAKER) (test 2.78 K/ L 1.78-5.38 obqz=599) LYMPHOCYTES ABSOLUTE COUNT (BEAKER) (test 0.47 K/ L 1.32-3.57 snyf=369) MONOCYTES ABSOLUTE COUNT (BEAKER) (test obnc=684) 0.37 K/ L 0.30-0.82 EOSINOPHILS ABSOLUTE COUNT (BEAKER) (test 0.14 K/ L 0.04-0.54 wyqw=648) BASOPHILS ABSOLUTE COUNT (BEAKER) (test dbut=756) 0.01 K/ L 0.01-0.08 IMMATURE GRANULOCYTES-RELATIVE PERCENT (BEAKER) 1 % 0-1 (test sdkl=6573) PROTHROMBIN [id number] 06:36:00 Test Item Value Reference Range Comments PROTIME (BEAKER) (test bnfs=018) 26.6 seconds 11.9-14.2 INR (BEAKER) (test lyah=130) 2.6 <=5.9 Effective 10/09/2018: PT Reference Range ChangeNew: 11.9-14.2 Previous: 11.7- 14.7RECOMMENDED COUMADIN/WARFARIN INR THERAPY RANGESSTANDARD DOSE: 2.0-3.0 Includes: PROPHYLAXIS for venous thrombosis, systemic embolization; TREATMENT for venous thrombosis and/or pulmonary embolus.HIGH RISK: Target INR is2.5-3.5 for patients wiht mechanical heart valves.CBC W/PLT COUNT & AUTO [id number] 13:17:00 Test Item Value Reference Range Comments WHITE BLOOD CELL COUNT (BEAKER) (test svpg=813) 3.3 K/ L 3.5-10.5 RED BLOOD CELL COUNT (BEAKER) (test nklx=985) 1.81 M/ L 4.63-6.08 HEMOGLOBIN (BEAKER) (test eugc=500) 6.7 GM/DL 13.7-17.5 HEMATOCRIT (BEAKER) (test cqqv=649) 20.3 % 40.1-51.0 MEAN CORPUSCULAR VOLUME (BEAKER) (test xudq=856) 112.2 fL 79.0-92.2 MEAN CORPUSCULAR HEMOGLOBIN (BEAKER) (test 37.0 pg 25.7-32.2 cyqk=833) MEAN CORPUSCULAR HEMOGLOBIN CONC (BEAKER) (test 33.0 GM/DL 32.3-36.5 ymxh=178) RED CELL DISTRIBUTION WIDTH (BEAKER) (test 21.8 % 11.6-14.4 eeho=612) PLATELET COUNT (BEAKER) (test vlzf=849) 36 K/CU MM 150-450 MEAN PLATELET VOLUME (BEAKER) (test jihw=615) 12.7 fL 9.4-12.4 NUCLEATED RED BLOOD CELLS (BEAKER) (test 0 /100 WBC 0-0 znna=389) (CELLAVISION MANUAL DIFF)2019-02-10 13:17:00 Test Item Value Reference Range Comments NEUTROPHILS - REL (CELLAVISION)(BEAKER) (test 88 % tvbg=9230) LYMPHOCYTES - REL (CELLAVISION)(BEAKER) (test 6 % pptu=9086) MONOCYTES - REL (CELLAVISION)(BEAKER) (test 2 % rtfn=5343) EOSINOPHILS - REL (CELLAVISION)(BEAKER) (test 4 % akyj=7691) NEUTROPHILS - ABS (CELLAVISION)(BEAKER) (test 2.90 K/ul 1.78-5.38 xehh=2873) LYMPHOCYTES - ABS (CELLAVISION)(BEAKER) (test 0.20 K/ul 1.32-3.57 avga=8808) MONOCYTES - ABS (CELLAVISION)(BEAKER) (test 0.07 K/uL 0.30-0.82 ayxa=5012) EOSINOPHILS - ABS (CELLAVISION)(BEAKER) (test 0.13 K/uL 0.04-0.54 zgqi=4746) TOTAL COUNTED (BEAKER) (test vsro=5185) 100 WBC MORPHOLOGY (BEAKER) (test ljri=987) Normal PLT MORPHOLOGY (BEAKER) (test gsab=212) Normal POLYCHROMATOPHILLIC RBCS(BEAKER) (test aziw=449) 1+ few HYPOCHROMIA (BEAKER) (test ipur=717) 2+ moderate ANISOCYTOSIS (BEAKER) (test qlgb=643) 2+ moderate MACROCYTES (BEAKER) (test vvgj=484) 2+ moderate SCHISTOCYTES (BEAKER) (test rblk=196) 2+ moderate ELLIPTOCYTES (BEAKER) (test jrkx=019) 1+ few ARTIFACT (CELLAVISION)(BEAKER) (test oiix=5805) Present PLATELET CONCENTRATION (CELLAVISION)(BEAKER) Decreased (test gajx=6971) Received comment: User comments: Slide comments:[id number] 08:00:00 Test Item Value Reference Range Comments MAGNESIUM (BEAKER) (test nuef=443) 1.5 mg/dL 1.6-2.6 HEPATIC FUNCTION [id number] 06:12:00 Test Item Value Reference Range Comments TOTAL PROTEIN (BEAKER) (test tkro=007) 6.1 gm/dL 6.0-8.3 ALBUMIN (BEAKER) (test pwje=5421) 2.0 g/dL 3.5-5.0 BILIRUBIN TOTAL (BEAKER) (test adqz=743) 14.9 mg/dL 0.2-1.2 BILIRUBIN DIRECT (BEAKER) (test wrvn=451) 8.2 mg/dL 0.1-0.5 ALKALINE PHOSPHATASE (BEAKER) (test lskb=517) 132 U/L 40-150 AST (SGOT) (BEAKER) (test eitt=296) 91 U/L 5-34 ALT (SGPT) (BEAKER) (test udqr=628) 48 U/L 6-55 Specimen markedly ictericCOMPREHENSIVE METABOLIC [id number] 06:10:00 Test Item Value Reference Range Comments TOTAL PROTEIN (BEAKER) 6.1 gm/dL 6.0-8.3 (test omca=773) ALBUMIN (BEAKER) (test 2.0 g/dL 3.5-5.0 pygf=9646) ALKALINE PHOSPHATASE 132 U/L 40-150 (BEAKER) (test vthk=841) BILIRUBIN TOTAL (BEAKER) 14.9 mg/dL 0.2-1.2 (test dwjh=828) SODIUM (BEAKER) (test 134 meq/L 136-145 nvkf=882) POTASSIUM (BEAKER) (test 2.4 meq/L 3.5-5.1 euga=488) CHLORIDE (BEAKER) (test 111 meq/L 98-107 emqk=646) CO2 (BEAKER) (test 18 meq/L 22-29 ijwa=586) BLOOD UREA NITROGEN 6 mg/dL 7-21 (BEAKER) (test zmjp=955) CREATININE (BEAKER) (test 1.44 mg/dL 0.57-1.25 xims=695) GLUCOSE RANDOM (BEAKER) 82 mg/dL 70-105 (test casq=813) CALCIUM (BEAKER) (test 7.9 mg/dL 8.4-10.2 fpie=091) AST (SGOT) (BEAKER) (test 91 U/L 5-34 ivmk=308) ALT (SGPT) (BEAKER) (test 48 U/L 6-55 futz=230) EGFR (BEAKER) (test 52 mL/min/1.73 sq m ESTIMATED GFR IS NOT nahf=7496) ACCURATE CREATININE CLEARANCE IN PREDICTING GLOMERULAR FILTRATION RATE. ESTIMATED GFR IS NOT APPLICABLE FOR DIALYSIS PATIENTS. Specimen markedly ictericPROTHROMBIN [id number] 05:29:00 Test Item Value Reference Range Comments PROTIME (BEAKER) (test wtut=566) 38.8 seconds 11.9-14.2 INR (BEAKER) (test wmsy=816) 4.3 <=5.9 Effective 10/09/2018: PT Reference Range ChangeNew: 11.9-14.2 Previous: 11.7- 14.7RECOMMENDED COUMADIN/WARFARIN INR THERAPY RANGESSTANDARD DOSE: 2.0-3.0 Includes: PROPHYLAXIS for venous thrombosis, systemic embolization; TREATMENT for venous thrombosis and/or pulmonary embolus.HIGH RISK: Target INR is2.5-3.5 for patients wiht mechanical heart valves.HEMOGLOBIN AND [id number] 20 :34:00 Test Item Value Reference Range Comments HEMOGLOBIN (BEAKER) (test itvv=466) 6.4 GM/DL 13.7-17.5 HEMATOCRIT (BEAKER) (test kmlc=959) 19.5 % 40.1-51.0 URINALYSIS WITH MICROSCOPIC IF [id number] 15:18:00 Test Item Value Reference Range Comments COLOR (BEAKER) (test pbsp=667) Dark Yellow CLARITY (BEAKER) (test cpri=617) Clear SPECIFIC GRAVITY UA (BEAKER) (test hkkn=969) 1.014 1.001-1.035 PH UA (BEAKER) (test wnuy=799) 6.5 5.0-8.0 PROTEIN UA (BEAKER) (test enzo=477) Negative Negative GLUCOSE UA (BEAKER) (test glsu=552) Negative Negative KETONES UA (BEAKER) (test rdla=404) Negative Negative BILIRUBIN UA (BEAKER) (test pnng=908) Positive Negative BLOOD UA (BEAKER) (test yrbd=667) Negative Negative NITRITE UA (BEAKER) (test zmzn=672) Negative Negative LEUKOCYTE ESTERASE UA (BEAKER) (test jcbw=802) Negative Negative UROBILINOGEN UA (BEAKER) (test knzc=895) 0.2 mg/dL 0.2-1.0 SOURCE(BEAKER) (test pltc=4080) VITAMIN B12 AND [id number] 13:44:00 Test Item Value Reference Range Comments VITAMIN B12 (BEAKER) (test fsup=201) 1967 pg/mL 213-816 FOLATE (BEAKER) (test zsrc=736) 18.6 ng/mL >=7.0 IRON, TIBC, % SAT. (WITHOUT FERRITIN)2019-02-09 13:07:00 Test Item Value Reference Range Comments IRON (BEAKER) (test xawl=020) 105.0 ug/dL 40.0-160.0 TOTAL IRON BINDING CAPACITY (BEAKER) (test 96 ug/dL 250-450 ylgy=140) IRON % SATURATION (2) (BEAKER) (test dqjs=7509) 109 % 20-55 PROTHROMBIN [id number] 10:59:00 Test Item Value Reference Range Comments PROTIME (BEAKER) (test tjhw=488) 38.0 seconds 11.9-14.2 INR (BEAKER) (test vaqc=959) 4.2 <=5.9 Effective 10/09/2018: PT Reference Range ChangeNew: 11.9-14.2 Previous: 11.7- 14.7RECOMMENDED COUMADIN/WARFARIN INR THERAPY RANGESSTANDARD DOSE: 2.0-3.0 Includes: PROPHYLAXIS for venous thrombosis, systemic embolization; TREATMENT for venous thrombosis and/or pulmonary embolus.HIGH RISK: Target INR is2.5-3.5 for patients wiht mechanical heart valves.COMPREHENSIVE METABOLIC [id number] 10:19:00 Test Item Value Reference Range Comments TOTAL PROTEIN (BEAKER) 6.4 gm/dL 6.0-8.3 (test gqlg=321) ALBUMIN (BEAKER) (test 1.5 g/dL 3.5-5.0 qpio=8469) ALKALINE PHOSPHATASE 172 U/L 40-150 (BEAKER) (test bwil=258) BILIRUBIN TOTAL (BEAKER) 13.2 mg/dL 0.2-1.2 (test vkub=612) SODIUM (BEAKER) (test 133 meq/L 136-145 luzq=389) POTASSIUM (BEAKER) (test 2.5 meq/L 3.5-5.1 sroq=250) CHLORIDE (BEAKER) (test 110 meq/L 98-107 bcby=894) CO2 (BEAKER) (test 16 meq/L 22-29 gqth=694) BLOOD UREA NITROGEN 6 mg/dL 7-21 (BEAKER) (test spxo=705) CREATININE (BEAKER) (test 1.17 mg/dL 0.57-1.25 jgxe=913) GLUCOSE RANDOM (BEAKER) 135 mg/dL 70-105 (test yban=022) CALCIUM (BEAKER) (test 7.2 mg/dL 8.4-10.2 bcfn=675) AST (SGOT) (BEAKER) (test 133 U/L 5-34 pskm=541) ALT (SGPT) (BEAKER) (test 60 U/L 6-55 nbqi=614) EGFR (BEAKER) (test 65 mL/min/1.73 sq m ESTIMATED GFR IS NOT zwyw=0747) ACCURATE CREATININE CLEARANCE IN PREDICTING GLOMERULAR FILTRATION RATE. ESTIMATED GFR IS NOT APPLICABLE FOR DIALYSIS PATIENTS. Specimen markedly ictericCBC W/PLT COUNT & AUTO [id number] 10:07 :00 Test Item Value Reference Range Comments WHITE BLOOD CELL COUNT (BEAKER) (test tiig=442) 3.8 K/ L 3.5-10.5 RED BLOOD CELL COUNT (BEAKER) (test gsos=847) 1.75 M/ L 4.63-6.08 HEMOGLOBIN (BEAKER) (test lrqc=140) 6.7 GM/DL 13.7-17.5 HEMATOCRIT (BEAKER) (test uhfk=471) 19.9 % 40.1-51.0 MEAN CORPUSCULAR VOLUME (BEAKER) (test rzwg=778) 113.7 fL 79.0-92.2 MEAN CORPUSCULAR HEMOGLOBIN (BEAKER) (test 38.3 pg 25.7-32.2 dtdr=819) MEAN CORPUSCULAR HEMOGLOBIN CONC (BEAKER) (test 33.7 GM/DL 32.3-36.5 jajt=125) RED CELL DISTRIBUTION WIDTH (BEAKER) (test 19.7 % 11.6-14.4 wvmy=223) PLATELET COUNT (BEAKER) (test kchb=435) 42 K/CU MM 150-450 MEAN PLATELET VOLUME (BEAKER) (test zbmz=156) 12.2 fL 9.4-12.4 NUCLEATED RED BLOOD CELLS (BEAKER) (test 0 /100 WBC 0-0 ivhr=472) NEUTROPHILS RELATIVE PERCENT (BEAKER) (test 79 % nyhm=136) LYMPHOCYTES RELATIVE PERCENT (BEAKER) (test 8 % ilyd=967) MONOCYTES RELATIVE PERCENT (BEAKER) (test 12 % dpez=378) EOSINOPHILS RELATIVE PERCENT (BEAKER) (test 1 % exhg=064) BASOPHILS RELATIVE PERCENT (BEAKER) (test 0 % iqox=736) NEUTROPHILS ABSOLUTE COUNT (BEAKER) (test 2.98 K/ L 1.78-5.38 gtus=433) LYMPHOCYTES ABSOLUTE COUNT (BEAKER) (test 0.28 K/ L 1.32-3.57 mpga=501) MONOCYTES ABSOLUTE COUNT (BEAKER) (test zyha=190) 0.43 K/ L 0.30-0.82 EOSINOPHILS ABSOLUTE COUNT (BEAKER) (test 0.05 K/ L 0.04-0.54 mnou=957) BASOPHILS ABSOLUTE COUNT (BEAKER) (test owmw=126) 0.00 K/ L 0.01-0.08 IMMATURE GRANULOCYTES-RELATIVE PERCENT (BEAKER) 0 % 0-1 (test aiqg=0740) BLOOD [id number] 20:01:00 Test Item Value Reference Range Comments CULTURE (BEAKER) (test febq=2235) No growth in 5 days BLOOD [id number] 20:01:00 Test Item Value Reference Range Comments CULTURE (BEAKER) (test dsjf=0275) No growth in 5 days URINE [id number] 14:33:00 Test Item Value Reference Range Comments CULTURE (BEAKER) (test ESCHERICHIA COLI 10-19,000 col/mL lddc=0015) Escherichia coliESBL Positive Amikacin (test code=1) Ampicillin + Sulbactam (test code=6) Aztreonam (test code=32) Cefepime (test code=51) Cefoxitin (test code=68) Ceftazidime (test code=27) Ceftriaxone (test code=52) Ertapenem (test code=38) Gentamicin (test code=18) Levofloxacin (test code=22) Meropenem (test code=34) Nitrofurantoin (test code=23) Piperacillin + Tazobactam (test code=29) Tetracycline (test code=2) Tobramycin (test code=25) Trimethoprim + Sulfamethoxazole (test code=47) BLOOD [id number] 10:58:00 Test Item Value Reference Range Comments CULTURE (BEAKER) Positive; see gram From Anaerobic Bottle Only (test xxsa=7570) stain results. Bifidobacterium species GRAM STAIN RESULT From anaerobic bottle (BEAKER) (test only: gram positive rznj=7287) rods BLOOD [id number] 20:01:00 Test Item Value Reference Range Comments CULTURE (BEAKER) (test rqkp=5683) No growth in 5 days POCT-GLUCOSE [id number] 12:59:00 Test Item Value Reference Range Comments POC-GLUCOSE METER (BEAKER) 129 mg/dL 70-110 TESTED AT [place] [id number] [facility] (test nfsd=5717) [facility] [address] CBC W/PLT COUNT & AUTO [id number] 09:05:00 Test Item Value Reference Range Comments WHITE BLOOD CELL COUNT (BEAKER) (test ycbv=504) 4.3 K/ L 3.5-10.5 RED BLOOD CELL COUNT (BEAKER) (test qhfp=667) 1.98 M/ L 4.63-6.08 HEMOGLOBIN (BEAKER) (test plud=781) 7.6 GM/DL 13.7-17.5 HEMATOCRIT (BEAKER) (test yyrd=466) 25.0 % 40.1-51.0 MEAN CORPUSCULAR VOLUME (BEAKER) (test zpap=278) 126.3 fL 79.0-92.2 MEAN CORPUSCULAR HEMOGLOBIN (BEAKER) (test 38.4 pg 25.7-32.2 hxjg=382) MEAN CORPUSCULAR HEMOGLOBIN CONC (BEAKER) (test 30.4 GM/DL 32.3-36.5 deco=784) RED CELL DISTRIBUTION WIDTH (BEAKER) (test 22.9 % 11.6-14.4 bxed=716) PLATELET COUNT (BEAKER) (test hpii=412) 41 K/CU MM 150-450 MEAN PLATELET VOLUME (BEAKER) (test jgui=770) 11.8 fL 9.4-12.4 NUCLEATED RED BLOOD CELLS (BEAKER) (test 0 /100 WBC 0-0 xyks=227) (CELLAVISION MANUAL DIFF)2019-01-09 09:05:00 Test Item Value Reference Range Comments NEUTROPHILS - REL (CELLAVISION)(BEAKER) (test 71 % iiau=6050) LYMPHOCYTES - REL (CELLAVISION)(BEAKER) (test 17 % ryen=9759) MONOCYTES - REL (CELLAVISION)(BEAKER) (test 7 % xlgo=8956) EOSINOPHILS - REL (CELLAVISION)(BEAKER) (test 2 % zily=6304) BASOPHILS - REL (CELLAVISION)(BEAKER) (test 2 % zzlz=2425) BANDS - REL (CELLAVISION)(BEAKER) (test wwaw=6811) 1 % 0-10 NEUTROPHILS - ABS (CELLAVISION)(BEAKER) (test 3.05 K/ul 1.78-5.38 ldzw=7488) LYMPHOCYTES - ABS (CELLAVISION)(BEAKER) (test 0.73 K/ul 1.32-3.57 gswe=9018) MONOCYTES - ABS (CELLAVISION)(BEAKER) (test 0.30 K/uL 0.30-0.82 kylr=7980) EOSINOPHILS - ABS (CELLAVISION)(BEAKER) (test 0.09 K/uL 0.04-0.54 eedn=0415) BASOPHILS - ABS (CELLAVISION)(BEAKER) (test 0.09 K/uL 0.01-0.08 hiic=2447) BANDS - ABS (CELLAVISION)(BEAKER) (test zacq=9580) 0.04 K/uL 0.00-0.80 TOTAL COUNTED (BEAKER) (test wsqy=8353) 100 WBC MORPHOLOGY (BEAKER) (test xgmj=127) Normal PLT MORPHOLOGY (BEAKER) (test ffem=222) Normal POLYCHROMATOPHILLIC RBCS(BEAKER) (test rxag=433) 1+ few HYPOCHROMIA (BEAKER) (test ydmz=946) 1+ few ARTIFACT (CELLAVISION)(BEAKER) (test jxrs=9714) Present PLATELET CONCENTRATION (CELLAVISION)(BEAKER) (test Decreased ulmw=7553) Received comment: User comments: Slide comments:POCT-GLUCOSE [id number] 08: 29:00 Test Item Value Reference Range Comments POC-GLUCOSE METER (BEAKER) 103 mg/dL 70-[address] [facility] [address] [facility] (test dwsj=2849) [facility] [address] HEPATIC FUNCTION [id number] 07:01:00 Test Item Value Reference Range Comments TOTAL PROTEIN (BEAKER) (test uqgi=795) 5.9 gm/dL 6.0-8.3 ALBUMIN (BEAKER) (test iqjs=8482) 1.8 g/dL 3.5-5.0 BILIRUBIN TOTAL (BEAKER) (test iunw=622) 25.1 mg/dL 0.2-1.2 BILIRUBIN DIRECT (BEAKER) (test kxan=250) 18.0 mg/dL 0.1-0.5 ALKALINE PHOSPHATASE (BEAKER) (test mdkk=413) 134 U/L 40-150 AST (SGOT) (BEAKER) (test ldir=084) 144 U/L 5-34 ALT (SGPT) (BEAKER) (test fbet=610) 68 U/L 6-55 Specimen markedly ictericCOMPREHENSIVE METABOLIC [id number] 07:01:00 Test Item Value Reference Range Comments TOTAL PROTEIN (BEAKER) 5.9 gm/dL 6.0-8.3 (test dvmd=695) ALBUMIN (BEAKER) (test 1.8 g/dL 3.5-5.0 uboe=9485) ALKALINE PHOSPHATASE 134 U/L 40-150 (BEAKER) (test bfbw=551) BILIRUBIN TOTAL (BEAKER) 25.1 mg/dL 0.2-1.2 (test wpqc=966) SODIUM (BEAKER) (test 139 meq/L 136-145 pqky=939) POTASSIUM (BEAKER) (test 3.3 meq/L 3.5-5.1 resj=042) CHLORIDE (BEAKER) (test 118 meq/L 98-107 vliz=516) CO2 (BEAKER) (test 16 meq/L 22-29 gayk=754) BLOOD UREA NITROGEN 19 mg/dL 7-21 (BEAKER) (test vtrl=807) CREATININE (BEAKER) (test 1.31 mg/dL 0.57-1.25 ccxi=714) GLUCOSE RANDOM (BEAKER) 90 mg/dL 70-105 (test jkfj=921) CALCIUM (BEAKER) (test 8.1 mg/dL 8.4-10.2 pqxh=874) AST (SGOT) (BEAKER) (test 144 U/L 5-34 uywt=063) ALT (SGPT) (BEAKER) (test 68 U/L 6-55 nwyj=540) EGFR (BEAKER) (test 57 mL/min/1.73 sq m ESTIMATED GFR IS NOT nxkk=1590) ACCURATE CREATININE CLEARANCE IN PREDICTING GLOMERULAR FILTRATION RATE. ESTIMATED GFR IS NOT APPLICABLE FOR DIALYSIS PATIENTS. Specimen markedly [id number] 06:58:00 Test Item Value Reference Range Comments PHOSPHORUS (BEAKER) (test rdjj=459) 3.0 mg/dL 2.3-4.7 [id number] 06:58:00 Test Item Value Reference Range Comments MAGNESIUM (BEAKER) (test tdcv=888) 1.9 mg/dL 1.6-2.6 B-TYPE NATRIURETIC FACTOR (BNP)2019-01-09 06:03:00 Test Item Value Reference Range Comments B-TYPE NATRIURETIC PEPTIDE (BEAKER) (test 165 pg/mL 0-100 tsry=518) PROTHROMBIN TIME/[id number] 05:58:00 Test Item Value Reference Range Comments PROTIME (BEAKER) (test ndyi=228) 21.0 seconds 11.9-14.2 INR (BEAKER) (test qyko=071) 1.9 <=5.9 Effective 10/09/2018: PT Reference Range ChangeNew: 11.9-14.2 Previous: 11.7- 14.7RECOMMENDED COUMADIN/WARFARIN INR THERAPY RANGESSTANDARD DOSE: 2.0-3.0 Includes: PROPHYLAXIS for venous thrombosis, systemic embolization; TREATMENT for venous thrombosis and/or pulmonary embolus.HIGH RISK: Target INR is2.5-3.5 for patients wiht mechanical heart valves.CALCIUM, [id number] 05:34:00 Test Item Value Reference Range Comments CALCIUM IONIZED (BEAKER) (test pmcm=961) 1.19 mmol/L 1.12-1.27 PH, BLOOD (BEAKER) (test qvtd=6764) 7.35 URINALYSIS W/ REFLEX URINE [id number] 21:26:00 Test Item Value Reference Range Comments COLOR (BEAKER) (test fwzx=129) Dark Yellow CLARITY (BEAKER) (test mrzm=117) Clear SPECIFIC GRAVITY UA (BEAKER) (test oinp=321) 1.012 1.001-1.035 PH UA (BEAKER) (test wwjv=945) 6.5 5.0-8.0 PROTEIN UA (BEAKER) (test lmqt=520) 10 mg/dL Negative GLUCOSE UA (BEAKER) (test jdnh=865) Negative Negative KETONES UA (BEAKER) (test qwvg=986) Negative Negative BILIRUBIN UA (BEAKER) (test ydnv=887) Positive Negative BLOOD UA (BEAKER) (test cyzp=894) Negative Negative NITRITE UA (BEAKER) (test tvwy=844) Negative Negative LEUKOCYTE ESTERASE UA (BEAKER) (test oywl=207) Trace Negative UROBILINOGEN UA (BEAKER) (test ynyk=098) 0.2 mg/dL 0.2-1.0 RBC UA (BEAKER) (test qlmw=146) 1 /HPF WBC UA (BEAKER) (test amiq=607) 1 /HPF BACTERIA (BEAKER) (test ygjz=899) Moderate MUCUS (BEAKER) (test tlsb=8947) Rare SQUAMOUS EPITHELIAL (BEAKER) (test vklc=323) 1 /HPF HYALINE CASTS (BEAKER) (test cwuy=752) 2 /LPF SOURCE(BEAKER) (test bqpv=8616) HIV-1 ANTIGEN WITH HIV-1/2 [id number] 19:48:00 Test Item Value Reference Range Comments HIV-1 ANTIGEN WITH HIV 1\T\2 ANTIBODY (2) Nonreactive Nonreactive (BEAKER) (test woju=2680) CT, BRAIN, WITHOUT [id number] 19:13:00FINAL REPORT CT, BRAIN, WITHOUT CONTRAST INDICATION: [...] examination is recommended for further characterization. Signed: Meservy, Anayeli MDReport Verified Date/Time: 2018 19:13:13 Electronically signed by: ANAYELI AL MD on 2018 07:13 PMPOCT-GLUCOSE [id number] 18:58:00 Test Item Value Reference Range Comments POC-GLUCOSE METER (BEAKER) 110 mg/dL 70-110 TESTED AT [address] (test ujxr=0290) [facility] [id number] POCT-GLUCOSE [id number] 13:40:00 Test Item Value Reference Range Comments POC-GLUCOSE METER (BEAKER) 155 mg/dL 70-110 TESTED AT [address] (test ayvq=6736) [facility] [address] CBC W/PLT COUNT & AUTO [id number] 11:47:00 Test Item Value Reference Range Comments WHITE BLOOD CELL COUNT (BEAKER) (test jcxm=382) 5.2 K/ L 3.5-10.5 RED BLOOD CELL COUNT (BEAKER) (test azgp=078) 2.03 M/ L 4.63-6.08 HEMOGLOBIN (BEAKER) (test oykt=297) 7.6 GM/DL 13.7-17.5 HEMATOCRIT (BEAKER) (test wvuf=352) 25.6 % 40.1-51.0 MEAN CORPUSCULAR VOLUME (BEAKER) (test wkre=505) 126.1 fL 79.0-92.2 MEAN CORPUSCULAR HEMOGLOBIN (BEAKER) (test 37.4 pg 25.7-32.2 ervr=535) MEAN CORPUSCULAR HEMOGLOBIN CONC (BEAKER) (test 29.7 GM/DL 32.3-36.5 zjos=203) RED CELL DISTRIBUTION WIDTH (BEAKER) (test 24.0 % 11.6-14.4 bqnn=124) PLATELET COUNT (BEAKER) (test aipk=631) 41 K/CU MM 150-450 MEAN PLATELET VOLUME (BEAKER) (test kilv=509) 12.3 fL 9.4-12.4 NUCLEATED RED BLOOD CELLS (BEAKER) (test 0 /100 WBC 0-0 axkw=469) (CELLAVISION MANUAL DIFF)2019-01-08 11:47:00 Test Item Value Reference Range Comments NEUTROPHILS - REL (CELLAVISION)(BEAKER) (test 67 % mnwq=1888) LYMPHOCYTES - REL (CELLAVISION)(BEAKER) (test 7 % sozw=5600) MONOCYTES - REL (CELLAVISION)(BEAKER) (test 12 % gjtu=5250) EOSINOPHILS - REL (CELLAVISION)(BEAKER) (test 1 % fqab=0769) BASOPHILS - REL (CELLAVISION)(BEAKER) (test 2 % jokj=4340) METAMYELOCYTES - REL (CELLAVISION)(BEAKER) (test 3 % 0-0 xgke=7670) MYELOCYTES - REL (CELLAVISION)(BEAKER) (test 5 % 0-0 vcsq=1770) BANDS - REL (CELLAVISION)(BEAKER) (test 2 % 0-10 tlvc=9279) ATYPICAL LYMPHOCYTES - REL (CELLAVISION)(BEAKER) 1 % 0-0 (test sngj=8837) NEUTROPHILS - ABS (CELLAVISION)(BEAKER) (test 3.48 K/ul 1.78-5.38 melh=4277) LYMPHOCYTES - ABS (CELLAVISION)(BEAKER) (test 0.36 K/ul 1.32-3.57 xlex=6908) MONOCYTES - ABS (CELLAVISION)(BEAKER) (test 0.62 K/uL 0.30-0.82 hrui=8904) EOSINOPHILS - ABS (CELLAVISION)(BEAKER) (test 0.05 K/uL 0.04-0.54 izuu=6941) BASOPHILS - ABS (CELLAVISION)(BEAKER) (test 0.10 K/uL 0.01-0.08 zeza=2111) METAMYELOCYTES - ABS (CELLAVISION)(BEAKER) (test 0.16 K/uL 0.00-0.00 pyef=9453) MYELOCYTES-ABS (CELLAVISION)(BEAKER) (test 0.26 K/uL 0.00-0.00 fedq=3642) BANDS - ABS (CELLAVISION)(BEAKER) (test 0.10 K/uL 0.00-0.80 xfnl=1255) ATYPICAL LYMPHOCYTES - ABS (CELLAVISION)(BEAKER) 0.05 K/uL 0.00-0.00 (test mffy=5375) TOTAL COUNTED (BEAKER) (test qcbc=7457) 100 WBC MORPHOLOGY (BEAKER) (test aasd=186) Normal PLT MORPHOLOGY (BEAKER) (test zjkj=047) Normal ANISOCYTOSIS (BEAKER) (test atzf=796) 2+ moderate MACROCYTES (BEAKER) (test pdnc=577) 2+ moderate POIKILOCYTES (BEAKER) (test jfqa=903) 1+ few ARTIFACT (CELLAVISION)(BEAKER) (test cito=5900) Present PLATELET CONCENTRATION (CELLAVISION)(BEAKER) Decreased (test crkl=2764) Received comment: User comments: Slide comments:POCT-GLUCOSE [id number] 09: 33:00 Test Item Value Reference Range Comments POC-GLUCOSE METER (BEAKER) 113 mg/dL 70-[address] [facility] [address] [facility] (test xiwc=7968) [facility] [address] MISCELLANEOUS LAB [id number] 07:34:00 Test Item Value Reference Range Comments SCAN RESULT (test sfsf=[id number]) HEPATIC FUNCTION [id number] 06:40:00 Test Item Value Reference Range Comments TOTAL PROTEIN (BEAKER) (test qklv=363) 6.2 gm/dL 6.0-8.3 ALBUMIN (BEAKER) (test qhud=8072) 2.0 g/dL 3.5-5.0 BILIRUBIN TOTAL (BEAKER) (test dkqf=102) 27.4 mg/dL 0.2-1.2 BILIRUBIN DIRECT (BEAKER) (test citn=733) 19.3 mg/dL 0.1-0.5 ALKALINE PHOSPHATASE (BEAKER) (test glke=654) 156 U/L 40-150 AST (SGOT) (BEAKER) (test anch=479) 147 U/L 5-34 ALT (SGPT) (BEAKER) (test xlbn=064) 64 U/L 6-55 Specimen markedly ictericCOMPREHENSIVE METABOLIC [id number] 06:40:00 Test Item Value Reference Range Comments TOTAL PROTEIN (BEAKER) 6.2 gm/dL 6.0-8.3 (test mwwa=161) ALBUMIN (BEAKER) (test 2.0 g/dL 3.5-5.0 wdhe=4565) ALKALINE PHOSPHATASE 156 U/L 40-150 (BEAKER) (test yjve=943) BILIRUBIN TOTAL (BEAKER) 27.4 mg/dL 0.2-1.2 (test gzne=425) SODIUM (BEAKER) (test 145 meq/L 136-145 kbmn=315) POTASSIUM (BEAKER) (test 3.5 meq/L 3.5-5.1 zbqf=268) CHLORIDE (BEAKER) (test 124 meq/L 98-107 xznl=227) CO2 (BEAKER) (test 17 meq/L 22-29 icbn=723) BLOOD UREA NITROGEN 22 mg/dL 7-21 (BEAKER) (test smtu=159) CREATININE (BEAKER) (test 1.17 mg/dL 0.57-1.25 zibl=601) GLUCOSE RANDOM (BEAKER) 92 mg/dL 70-105 (test mjec=994) CALCIUM (BEAKER) (test 8.1 mg/dL 8.4-10.2 piow=621) AST (SGOT) (BEAKER) (test 147 U/L 5-34 wckr=438) ALT (SGPT) (BEAKER) (test 64 U/L 6-55 clyh=103) EGFR (BEAKER) (test 65 mL/min/1.73 sq m ESTIMATED GFR IS NOT iylv=4075) ACCURATE CREATININE CLEARANCE IN PREDICTING GLOMERULAR FILTRATION RATE. ESTIMATED GFR IS NOT APPLICABLE FOR DIALYSIS PATIENTS. Specimen markedly [id number] 06:39:00 Test Item Value Reference Range Comments PHOSPHORUS (BEAKER) (test fmkr=391) 2.8 mg/dL 2.3-4.7 [id number] 06:39:00 Test Item Value Reference Range Comments MAGNESIUM (BEAKER) (test wfdd=256) 2.2 mg/dL 1.6-2.6 POCT-GLUCOSE [id number] 06:32:00 Test Item Value Reference Range Comments POC-GLUCOSE METER (BEAKER) 135 mg/dL 70-[address] [facility] [address] [facility] (test ssnt=9887) [facility] [address] PROTHROMBIN [id number] 06:05:00 Test Item Value Reference Range Comments PROTIME (BEAKER) (test cagt=220) 20.5 seconds 11.9-14.2 INR (BEAKER) (test hyfx=347) 1.9 <=5.9 Effective 10/09/2018: PT Reference Range ChangeNew: 11.9-14.2 Previous: 11.7- 14.7RECOMMENDED COUMADIN/WARFARIN INR THERAPY RANGESSTANDARD DOSE: 2.0-3.0 Includes: PROPHYLAXIS for venous thrombosis, systemic embolization; TREATMENT for venous thrombosis and/or pulmonary embolus.HIGH RISK: Target INR is2.5-3.5 for patients wiht mechanical heart valves.CALCIUM, [id number] 05:11:00 Test Item Value Reference Range Comments CALCIUM IONIZED (BEAKER) (test cplf=558) 1.17 mmol/L 1.12-1.27 PH, BLOOD (BEAKER) (test ncoa=1558) 7.39 POCT-GLUCOSE [id number] 23:40:00 Test Item Value Reference Range Comments POC-GLUCOSE METER (BEAKER) 132 mg/dL 70-110 TESTED AT [address] (test ajrk=8113) [place] [address] RAD, CHEST, 1 VIEW, NON [id number] 17:41:00Reason for exam:->feverShould this be performed at [...] No acute bony abnormality. Signed : Estuardo Singh MDReport Verified Date/Time: 01/07/2019 17:41:42 Reading Location : [facility] C0[facility] Consult Reading Room Electronicallysigned by: ESTUARDO SINGH MD on 01/07/2019 05:41 PMPOCT-GLUCOSE [id number] 17:25:00 Test Item Value Reference Range Comments POC-GLUCOSE METER (BEAKER) 94 mg/dL 70-110 TESTED AT [address] (test zyes=3262) [facility] [address] URINALYSIS W/ REFLEX URINE [id number] 15:00:00 Test Item Value Reference Range Comments COLOR (BEAKER) (test gupo=018) Dark Yellow CLARITY (BEAKER) (test jaht=182) Clear SPECIFIC GRAVITY UA (BEAKER) (test ftdo=389) 1.012 1.001-1.035 PH UA (BEAKER) (test rozi=681) 6.5 5.0-8.0 PROTEIN UA (BEAKER) (test ctpt=978) 10 mg/dL Negative GLUCOSE UA (BEAKER) (test ufge=240) Negative Negative KETONES UA (BEAKER) (test zidn=036) Negative Negative BILIRUBIN UA (BEAKER) (test fbzz=821) Positive Negative BLOOD UA (BEAKER) (test mlcw=038) Trace Negative NITRITE UA (BEAKER) (test ynfa=013) Positive Negative LEUKOCYTE ESTERASE UA (BEAKER) (test ldds=954) Large Negative UROBILINOGEN UA (BEAKER) (test ntyb=098) 0.2 mg/dL 0.2-1.0 RBC UA (BEAKER) (test xxvu=051) < /HPF WBC UA (BEAKER) (test wwpg=858) 8 /HPF BACTERIA (BEAKER) (test kgsy=071) Many MUCUS (BEAKER) (test zuqq=0956) Rare SOURCE(BEAKER) (test pkuv=8109) CBC W/PLT COUNT & AUTO [id number] 12:34:00 Test Item Value Reference Range Comments WHITE BLOOD CELL COUNT (BEAKER) (test aegc=048) 4.7 K/ L 3.5-10.5 RED BLOOD CELL COUNT (BEAKER) (test pqgt=553) 2.08 M/ L 4.63-6.08 HEMOGLOBIN (BEAKER) (test jfvs=983) 7.8 GM/DL 13.7-17.5 HEMATOCRIT (BEAKER) (test afwt=695) 26.2 % 40.1-51.0 MEAN CORPUSCULAR VOLUME (BEAKER) (test jkva=020) 126.0 fL 79.0-92.2 MEAN CORPUSCULAR HEMOGLOBIN (BEAKER) (test 37.5 pg 25.7-32.2 hewo=039) MEAN CORPUSCULAR HEMOGLOBIN CONC (BEAKER) (test 29.8 GM/DL 32.3-36.5 nlww=250) RED CELL DISTRIBUTION WIDTH (BEAKER) (test 25.2 % 11.6-14.4 uoug=234) PLATELET COUNT (BEAKER) (test aboz=459) 37 K/CU MM 150-450 MEAN PLATELET VOLUME (BEAKER) (test vzxf=629) 11.1 fL 9.4-12.4 NUCLEATED RED BLOOD CELLS (BEAKER) (test 1 /100 WBC 0-0 ygia=695) (CELLAVISION MANUAL DIFF)2019-01-07 12:34:00 Test Item Value Reference Range Comments NEUTROPHILS - REL (CELLAVISION)(BEAKER) (test 77 % xsmp=7347) LYMPHOCYTES - REL (CELLAVISION)(BEAKER) (test 4 % clzq=5674) MONOCYTES - REL (CELLAVISION)(BEAKER) (test 13 % aizf=2313) EOSINOPHILS - REL (CELLAVISION)(BEAKER) (test 4 % dstx=5006) MYELOCYTES - REL (CELLAVISION)(BEAKER) (test 2 % 0-0 gxtm=4858) NEUTROPHILS - ABS (CELLAVISION)(BEAKER) (test 3.62 K/ul 1.78-5.38 qbqk=9978) LYMPHOCYTES - ABS (CELLAVISION)(BEAKER) (test 0.19 K/ul 1.32-3.57 ivsa=8094) MONOCYTES - ABS (CELLAVISION)(BEAKER) (test 0.61 K/uL 0.30-0.82 besu=2155) EOSINOPHILS - ABS (CELLAVISION)(BEAKER) (test 0.19 K/uL 0.04-0.54 ywft=7189) MYELOCYTES-ABS (CELLAVISION)(BEAKER) (test 0.09 K/uL 0.00-0.00 afgl=8944) TOTAL COUNTED (BEAKER) (test zfnr=3346) 100 SMUDGE CELLS (BEAKER) (test wcuo=9969) Present GIANT PLATELETS (BEAKER) (test xggq=022) Present POLYCHROMATOPHILLIC RBCS(BEAKER) (test fheh=212) 1+ few ANISOCYTOSIS (BEAKER) (test zswf=103) 2+ moderate MACROCYTES (BEAKER) (test snpi=452) 2+ moderate POIKILOCYTES (BEAKER) (test wwvn=150) 2+ moderate ARTIFACT (CELLAVISION)(BEAKER) (test mdrb=0442) Present PLATELET CONCENTRATION (CELLAVISION)(BEAKER) Decreased (test udxn=2141) Received comment: User comments: Slide comments:POCT-GLUCOSE [id number] 12: 15:00 Test Item Value Reference Range Comments POC-GLUCOSE METER (BEAKER) 162 mg/dL 70-[address] [facility] [address] [facility] (test tode=6457) [facility] [address] HEPATIC FUNCTION [id number] 07:38:00 Test Item Value Reference Range Comments TOTAL PROTEIN (BEAKER) (test ugkn=069) 6.1 gm/dL 6.0-8.3 ALBUMIN (BEAKER) (test vtdu=8808) 2.1 g/dL 3.5-5.0 BILIRUBIN TOTAL (BEAKER) (test enyk=800) 28.5 mg/dL 0.2-1.2 BILIRUBIN DIRECT (BEAKER) (test kemo=677) 20.3 mg/dL 0.1-0.5 ALKALINE PHOSPHATASE (BEAKER) (test axlv=047) 183 U/L 40-150 AST (SGOT) (BEAKER) (test tibd=394) 129 U/L 5-34 ALT (SGPT) (BEAKER) (test glag=977) 62 U/L 6-55 Specimen markedly ictericCOMPREHENSIVE METABOLIC [id number] 07:37:00 Test Item Value Reference Range Comments TOTAL PROTEIN (BEAKER) 6.1 gm/dL 6.0-8.3 (test iscj=623) ALBUMIN (BEAKER) (test 2.1 g/dL 3.5-5.0 jdyp=6192) ALKALINE PHOSPHATASE 183 U/L 40-150 (BEAKER) (test cwpm=590) BILIRUBIN TOTAL (BEAKER) 28.5 mg/dL 0.2-1.2 (test drhm=639) SODIUM (BEAKER) (test 148 meq/L 136-145 xtuh=583) POTASSIUM (BEAKER) (test 3.3 meq/L 3.5-5.1 zkmp=050) CHLORIDE (BEAKER) (test 127 meq/L 98-107 qzts=380) CO2 (BEAKER) (test 17 meq/L 22-29 gzqy=310) BLOOD UREA NITROGEN 24 mg/dL 7-21 (BEAKER) (test abgl=038) CREATININE (BEAKER) (test 1.29 mg/dL 0.57-1.25 ibpx=594) GLUCOSE RANDOM (BEAKER) 119 mg/dL 70-105 (test afhi=821) CALCIUM (BEAKER) (test 7.8 mg/dL 8.4-10.2 xive=183) AST (SGOT) (BEAKER) (test 129 U/L 5-34 lfld=685) ALT (SGPT) (BEAKER) (test 62 U/L 6-55 lxlb=530) EGFR (BEAKER) (test 58 mL/min/1.73 sq m ESTIMATED GFR IS NOT hjne=0842) ACCURATE CREATININE CLEARANCE IN PREDICTING GLOMERULAR FILTRATION RATE. ESTIMATED GFR IS NOT APPLICABLE FOR DIALYSIS PATIENTS. Specimen markedly [id number] 07:35:00 Test Item Value Reference Range Comments AMMONIA (BEAKER) (test bfax=122) 19 mol/L 18-72 [id number] 07:30:00 Test Item Value Reference Range Comments PHOSPHORUS (BEAKER) (test pfvt=119) 2.3 mg/dL 2.3-4.7 [id number] 07:30:00 Test Item Value Reference Range Comments MAGNESIUM (BEAKER) (test rdcp=845) 2.2 mg/dL 1.6-2.6 B-TYPE NATRIURETIC FACTOR (BNP)2019-01-07 06:46:00 Test Item Value Reference Range Comments B-TYPE NATRIURETIC PEPTIDE (BEAKER) (test 197 pg/mL 0-100 wjux=225) PROTHROMBIN [id number] 06:32:00 Test Item Value Reference Range Comments PROTIME (BEAKER) (test gapb=632) 21.0 seconds 11.9-14.2 INR (BEAKER) (test sphz=481) 1.9 <=5.9 Effective 10/09/2018: PT Reference Range ChangeNew: 11.9-14.2 Previous: 11.7- 14.7RECOMMENDED COUMADIN/WARFARIN INR THERAPY RANGESSTANDARD DOSE: 2.0-3.0 Includes: PROPHYLAXIS for venous thrombosis, systemic embolization; TREATMENT for venous thrombosis and/or pulmonary embolus.HIGH RISK: Target INR is2.5-3.5 for patients wiht mechanical heart valves.BLOOD CULTURE IDENTIFICATION [id number] 06:28:00 Test Item Value Reference Range Comments LISTERIA MONOCYTOGENES (test bexp=3445879) Not detected Not detected STAPHYLOCOCCUS (test bxdd=0818185) Not detected Not detected STAPHYLOCOCCUS AUREUS (test ymhn=2791775) Not detected Not detected STREPTOCOCCUS (test pioh=7694620) Not detected Not detected STREPTOCOCCUS AGALACTIAE (GROUP B) (test Not detected Not detected mlex=1892096) STREPTOCOCCUS PNEUMONIAE (test epyo=1997943) Not detected Not detected STREPTOCOCCUS PYOGENES (GROUP A) (test Not detected Not detected gfla=1535358) ACINETOBACTER BAUMANNII (test dnsf=6786468) Not detected Not detected HAEMOPHILUS INFLUENZAE (test woyt=5155799) Not detected Not detected NEISSERIA MENINGITIDIS (test cwwd=9090325) Not detected Not detected ENTEROBACTERIACEAE (test ntqv=5452750) Not detected Not detected ENTEROBACTER CLOACOE COMPLEX (test Not detected Not detected zypu=0037293) KLEBSIELLA OXYTOCA (test bbae=4953656) Not detected Not detected KLEBSIELLA PNEUMONIAE (test wmrm=8150) Not detected Not detected PROTEUS (test esma=6131076) Not detected Not detected SERRATIA MARCESCENS (test atfc=2742319) Not detected Not detected LENNIE ALBICANS (test zyhl=2558278) Not detected Not detected LENNIE GLABRATA (test ikov=9454765) Not detected Not detected LENNIE KRUSEI (test spmp=4887789) Not detected Not detected LENNIE PARAPSILOSIS (test obsu=7138028) Not detected Not detected LENNIE TROPICALIS (test urcf=2947636) Not detected Not detected ESCHERICHIA COLI (test tfhz=6511419) Not detected Not detected METHICILLIN-RESISTANCE GENE (test rvty=6769311) VANCOMYCIN-RESISTANCE GENE (test wcyy=0049867) CARBAPENEM-RESISTANCE GENE (test ukxc=3759371) ENTEROCOCCUS-BEAKER (test nova=9072656) Not detected Not detected PSEUDOMONAS AERUGINOSA-BEAKER (test Not detected Not detected fwny=4749141) Other bacteria and resistance markers not targeted by this PCR panel cannot be excluded; therefore clinical correlation and follow up of serology, culture results, and other molecular studies is required. The results are not intended to be used as the sole means for clinical diagnosis or patient management decisions. This sample was tested at the [facility] Molecular Diagnostics Laboratory using the [email or web address] Blood Culture ID Panel. It is FDA cleared and has been verified and approved by the [facility] Molecular Diagnostics Laboratory for clinical use. This laboratory is CLIA-certified and College ofAmerican Pathologists (CAP)-accredited to perform high complexity testing.POCT-GLUCOSE [id number] 06:21:00 Test Item Value Reference Range Comments POC-GLUCOSE METER (BEAKER) 140 mg/dL 70-110 TESTED AT [address] (test nqof=0402) [facility] [address] CALCIUM, [id number] 05:57:00 Test Item Value Reference Range Comments CALCIUM IONIZED (BEAKER) (test ihvh=233) 1.12 mmol/L 1.12-1.27 PH, BLOOD (BEAKER) (test mily=4250) 7.40 POCT-GLUCOSE [id number] 18:31:00 Test Item Value Reference Range Comments POC-GLUCOSE METER (BEAKER) 108 mg/dL 70-110 TESTED AT [address] (test turv=7265) [facility] [address] POCT-GLUCOSE [id number] 12:46:00 Test Item Value Reference Range Comments POC-GLUCOSE METER (BEAKER) 116 mg/dL 70-110 TESTED AT [address] (test giob=5556) [facility] [address] CBC W/PLT COUNT & AUTO [id number] 12:04:00 Test Item Value Reference Range Comments WHITE BLOOD CELL COUNT (BEAKER) (test pbgx=759) 5.1 K/ L 3.5-10.5 RED BLOOD CELL COUNT (BEAKER) (test skci=799) 2.14 M/ L 4.63-6.08 HEMOGLOBIN (BEAKER) (test bqaj=816) 8.1 GM/DL 13.7-17.5 HEMATOCRIT (BEAKER) (test rtdx=918) 26.7 % 40.1-51.0 MEAN CORPUSCULAR VOLUME (BEAKER) (test obkn=403) 124.8 fL 79.0-92.2 MEAN CORPUSCULAR HEMOGLOBIN (BEAKER) (test 37.9 pg 25.7-32.2 fddu=288) MEAN CORPUSCULAR HEMOGLOBIN CONC (BEAKER) (test 30.3 GM/DL 32.3-36.5 qjer=173) RED CELL DISTRIBUTION WIDTH (BEAKER) (test 26.2 % 11.6-14.4 tnsy=955) PLATELET COUNT (BEAKER) (test aisj=368) 33 K/CU MM 150-450 MEAN PLATELET VOLUME (BEAKER) (test ckjs=108) 10.7 fL 9.4-12.4 NUCLEATED RED BLOOD CELLS (BEAKER) (test 1 /100 WBC 0-0 sdlz=244) (CELLAVISION MANUAL DIFF)2019-01-06 12:04:00 Test Item Value Reference Range Comments NEUTROPHILS - REL (CELLAVISION)(BEAKER) (test 73 % naif=9857) LYMPHOCYTES - REL (CELLAVISION)(BEAKER) (test 13 % bhlt=6506) MONOCYTES - REL (CELLAVISION)(BEAKER) (test 12 % xtnr=4495) EOSINOPHILS - REL (CELLAVISION)(BEAKER) (test 1 % afch=8722) PROMYELOCYTES - REL (CELLAVSION)(BEAKER) (test 1 % 0-0 jvls=7890) NEUTROPHILS - ABS (CELLAVISION)(BEAKER) (test 3.72 K/ul 1.78-5.38 ccav=9327) LYMPHOCYTES - ABS (CELLAVISION)(BEAKER) (test 0.66 K/ul 1.32-3.57 mhch=5784) MONOCYTES - ABS (CELLAVISION)(BEAKER) (test 0.61 K/uL 0.30-0.82 waco=0871) EOSINOPHILS - ABS (CELLAVISION)(BEAKER) (test 0.05 K/uL 0.04-0.54 bcon=9500) PROMYELOCYTES - ABS (CELLAVISION)(BEAKER) (test 0.05 K/uL 0.00-0.00 fnaa=9785) TOTAL COUNTED (BEAKER) (test wznh=3255) 100 WBC MORPHOLOGY (BEAKER) (test ackj=143) Normal PLT MORPHOLOGY (BEAKER) (test gilg=418) Normal POLYCHROMATOPHILLIC RBCS(BEAKER) (test xuxn=040) 1+ few ANISOCYTOSIS (BEAKER) (test wdjv=583) 3+ many MACROCYTES (BEAKER) (test xgdc=951) 3+ many POIKILOCYTES (BEAKER) (test clav=492) 1+ few ARTIFACT (CELLAVISION)(BEAKER) (test heeo=2347) Present PLATELET CONCENTRATION (CELLAVISION)(BEAKER) (test Decreased eugg=2776) Received comment: User comments: Slide comments:MISCELLANEOUS LAB [id number] 08:08:00 Test Item Value Reference Range Comments SCAN RESULT (test usyu=0890103) HEPATIC FUNCTION [id number] 06:40:00 Test Item Value Reference Range Comments TOTAL PROTEIN (BEAKER) (test chks=152) 5.9 gm/dL 6.0-8.3 ALBUMIN (BEAKER) (test zwcu=6865) 2.0 g/dL 3.5-5.0 BILIRUBIN TOTAL (BEAKER) (test rjtj=801) 26.5 mg/dL 0.2-1.2 BILIRUBIN DIRECT (BEAKER) (test rlqm=093) 19.6 mg/dL 0.1-0.5 ALKALINE PHOSPHATASE (BEAKER) (test mioj=249) 175 U/L 40-150 AST (SGOT) (BEAKER) (test ystm=449) 121 U/L 5-34 ALT (SGPT) (BEAKER) (test tksr=900) 59 U/L 6-55 Specimen markedly ictericCOMPREHENSIVE METABOLIC [id number] 06:40:00 Test Item Value Reference Range Comments TOTAL PROTEIN (BEAKER) 5.9 gm/dL 6.0-8.3 (test nvvi=733) ALBUMIN (BEAKER) (test 2.0 g/dL 3.5-5.0 jhwz=7496) ALKALINE PHOSPHATASE 175 U/L 40-150 (BEAKER) (test tcbu=256) BILIRUBIN TOTAL (BEAKER) 26.5 mg/dL 0.2-1.2 (test jtot=956) SODIUM (BEAKER) (test 148 meq/L 136-145 izds=094) POTASSIUM (BEAKER) (test 3.5 meq/L 3.5-5.1 jqxo=166) CHLORIDE (BEAKER) (test 129 meq/L 98-107 vceo=543) CO2 (BEAKER) (test 15 meq/L 22-29 henq=001) BLOOD UREA NITROGEN 24 mg/dL 7-21 (BEAKER) (test iebq=062) CREATININE (BEAKER) (test 1.41 mg/dL 0.57-1.25 gsoh=997) GLUCOSE RANDOM (BEAKER) 113 mg/dL 70-105 (test qubv=748) CALCIUM (BEAKER) (test 7.4 mg/dL 8.4-10.2 kzah=794) AST (SGOT) (BEAKER) (test 121 U/L 5-34 ppan=529) ALT (SGPT) (BEAKER) (test 59 U/L 6-55 zmmx=723) EGFR (BEAKER) (test 53 mL/min/1.73 sq m ESTIMATED GFR IS NOT xgfb=1909) ACCURATE CREATININE CLEARANCE IN PREDICTING GLOMERULAR FILTRATION RATE. ESTIMATED GFR IS NOT APPLICABLE FOR DIALYSIS PATIENTS. Specimen markedly [id number] 06:39:00 Test Item Value Reference Range Comments PHOSPHORUS (BEAKER) (test bjlk=672) 3.2 mg/dL 2.3-4.7 [id number] 06:39:00 Test Item Value Reference Range Comments MAGNESIUM (BEAKER) (test gzcd=319) 2.2 mg/dL 1.6-2.6 PROTHROMBIN [id number] 06:06:00 Test Item Value Reference Range Comments PROTIME (BEAKER) (test lebt=450) 22.9 seconds 11.9-14.2 INR (BEAKER) (test bquw=226) 2.2 <=5.9 Effective 10/09/2018: PT Reference Range ChangeNew: 11.9-14.2 Previous: 11.7- 14.7RECOMMENDED COUMADIN/WARFARIN INR THERAPY RANGESSTANDARD DOSE: 2.0-3.0 Includes: PROPHYLAXIS for venous thrombosis, systemic embolization; TREATMENT for venous thrombosis and/or pulmonary embolus.HIGH RISK: Target INR is2.5-3.5 for patients wiht mechanical heart valves.POCT-GLUCOSE [id number] 05:52:00 Test Item Value Reference Range Comments POC-GLUCOSE METER (BEAKER) 132 mg/dL 70-[address] [facility] [address] [facility] (test kjnd=1144) [facility] [address] CALCIUM, [id number] 05:51:00 Test Item Value Reference Range Comments CALCIUM IONIZED (BEAKER) (test qtph=948) 1.14 mmol/L 1.12-1.27 PH, BLOOD (BEAKER) (test wvom=0213) 7.38 BLOOD [id number] 02:01:00 Test Item Value Reference Range Comments CULTURE (BEAKER) (test leqa=1050) No growth in 5 days BLOOD [id number] 02:01:00 Test Item Value Reference Range Comments CULTURE (BEAKER) (test joxl=7234) No growth in 5 days POCT-GLUCOSE [id number] 23:45:00 Test Item Value Reference Range Comments POC-GLUCOSE METER (BEAKER) 115 mg/dL 70-110 TESTED AT [address] (test mjkm=7970) [facility] [address] POCT-GLUCOSE [id number] 19:43:00 Test Item Value Reference Range Comments POC-GLUCOSE METER (BEAKER) 131 mg/dL 70-110 TESTED AT [address] (test vdml=7930) [facility] [address] POCT-GLUCOSE [id number] 18:20:00 Test Item Value Reference Range Comments POC-GLUCOSE METER (BEAKER) 118 mg/dL 70-110 TESTED AT [address] (test elxe=7130) [facility] [address] URINALYSIS W/ REFLEX URINE [id number] 14:08:00 Test Item Value Reference Range Comments COLOR (BEAKER) (test xdbt=175) Dark Yellow CLARITY (BEAKER) (test xlqy=993) Clear SPECIFIC GRAVITY UA (BEAKER) (test fjhn=255) 1.012 1.001-1.035 PH UA (BEAKER) (test tybe=508) 6.5 5.0-8.0 PROTEIN UA (BEAKER) (test ptyo=956) 20 mg/dL Negative GLUCOSE UA (BEAKER) (test hzms=580) Negative Negative KETONES UA (BEAKER) (test yibq=742) Negative Negative BILIRUBIN UA (BEAKER) (test ydhg=935) Positive Negative BLOOD UA (BEAKER) (test jjfu=422) Negative Negative NITRITE UA (BEAKER) (test lxdq=549) Negative Negative LEUKOCYTE ESTERASE UA (BEAKER) (test otwz=318) Trace Negative UROBILINOGEN UA (BEAKER) (test yslp=251) 0.2 mg/dL 0.2-1.0 RBC UA (BEAKER) (test bduf=565) < /HPF WBC UA (BEAKER) (test rszs=606) 2 /HPF MUCUS (BEAKER) (test vpcn=5592) Occasional SOURCE(BEAKER) (test qrqq=3143) POCT-GLUCOSE [id number] 12:14:00 Test Item Value Reference Range Comments POC-GLUCOSE METER (BEAKER) 129 mg/dL 70-[address] [facility] [address] [facility] (test pbpq=6999) [facility] [address] CBC W/PLT COUNT & AUTO [id number] 07:10:00 Test Item Value Reference Range Comments WHITE BLOOD CELL COUNT (BEAKER) (test jtvl=704) 6.9 K/ L 3.5-10.5 RED BLOOD CELL COUNT (BEAKER) (test telh=770) 2.35 M/ L 4.63-6.08 HEMOGLOBIN (BEAKER) (test eudi=892) 8.9 GM/DL 13.7-17.5 HEMATOCRIT (BEAKER) (test gzlo=617) 28.6 % 40.1-51.0 MEAN CORPUSCULAR VOLUME (BEAKER) (test cpvd=463) 121.7 fL 79.0-92.2 MEAN CORPUSCULAR HEMOGLOBIN (BEAKER) (test 37.9 pg 25.7-32.2 hugz=829) MEAN CORPUSCULAR HEMOGLOBIN CONC (BEAKER) (test 31.1 GM/DL 32.3-36.5 opbk=165) RED CELL DISTRIBUTION WIDTH (BEAKER) (test 27.9 % 11.6-14.4 uusi=928) PLATELET COUNT (BEAKER) (test wcww=146) 52 K/CU MM 150-450 MEAN PLATELET VOLUME (BEAKER) (test ojrx=008) 11.8 fL 9.4-12.4 NUCLEATED RED BLOOD CELLS (BEAKER) (test 1 /100 WBC 0-0 wlmp=931) (CELLAVISION MANUAL DIFF)[id number] 07:10:00 Test Item Value Reference Range Comments NEUTROPHILS - REL (CELLAVISION)(BEAKER) (test 73 % ojdl=6132) LYMPHOCYTES - REL (CELLAVISION)(BEAKER) (test 10 % daeu=4225) MONOCYTES - REL (CELLAVISION)(BEAKER) (test 10 % jdaw=2698) EOSINOPHILS - REL (CELLAVISION)(BEAKER) (test 3 % thoz=4297) BANDS - REL (CELLAVISION)(BEAKER) (test 2 % 0-10 dkhc=7481) ATYPICAL LYMPHOCYTES - REL (CELLAVISION)(BEAKER) 1 % 0-0 (test umrv=7423) NEUTROPHILS - ABS (CELLAVISION)(BEAKER) (test 5.04 K/ul 1.78-5.38 zwcd=4116) LYMPHOCYTES - ABS (CELLAVISION)(BEAKER) (test 0.69 K/ul 1.32-3.57 gffh=9317) MONOCYTES - ABS (CELLAVISION)(BEAKER) (test 0.69 K/uL 0.30-0.82 wkhs=6640) EOSINOPHILS - ABS (CELLAVISION)(BEAKER) (test 0.21 K/uL 0.04-0.54 nnps=2457) BANDS - ABS (CELLAVISION)(BEAKER) (test 0.14 K/uL 0.00-0.80 tbsn=7222) ATYPICAL LYMPHOCYTES - ABS (CELLAVISION)(BEAKER) 0.07 K/uL 0.00-0.00 (test xwds=3707) TOTAL COUNTED (BEAKER) (test affx=4384) 100 MANUAL NRBC PER 100 CELLS (BEAKER) (test 1 /100 WBC 0-0 epsi=0804) WBC MORPHOLOGY (BEAKER) (test niem=804) Normal PLT MORPHOLOGY (BEAKER) (test lnzr=095) Normal POLYCHROMATOPHILLIC RBCS(BEAKER) (test pkyu=456) 1+ few HYPOCHROMIA (BEAKER) (test wczw=190) 1+ few OVALOCYTES (BEAKER) (test inmo=757) 1+ few ARTIFACT (CELLAVISION)(BEAKER) (test gozc=9588) Present PLATELET CONCENTRATION (CELLAVISION)(BEAKER) Decreased (test xzdu=8885) Received comment: User comments: Slide comments:HEPATIC FUNCTION [id number] 05:08:00 Test Item Value Reference Range Comments TOTAL PROTEIN (BEAKER) (test 6.2 gm/dL 6.0-8.3 Specimen slightly hemolyzed geqb=379) ALBUMIN (BEAKER) (test 1.6 g/dL 3.5-5.0 Specimen slightly hemolyzed vnob=7034) BILIRUBIN TOTAL (BEAKER) (test 24.4 mg/dL 0.2-1.2 Specimen slightly hemolyzed rmwi=463) BILIRUBIN DIRECT (BEAKER) 17.6 mg/dL 0.1-0.5 Specimen slightly hemolyzed (test ywbj=621) ALKALINE PHOSPHATASE (BEAKER) 183 U/L 40-150 (test sain=864) AST (SGOT) (BEAKER) (test 133 U/L 5-34 Specimen slightly hemolyzed negj=119) ALT (SGPT) (BEAKER) (test 63 U/L 6-55 Specimen slightly hemolyzed mwpm=943) Specimen markedly ictericCOMPREHENSIVE METABOLIC [id number] 05:08:00 Test Item Value Reference Range Comments TOTAL PROTEIN (BEAKER) 6.2 gm/dL 6.0-8.3 Specimen slightly (test kunw=741) hemolyzed ALBUMIN (BEAKER) (test 1.6 g/dL 3.5-5.0 Specimen slightly zdhg=5089) hemolyzed ALKALINE PHOSPHATASE 183 U/L 40-150 (BEAKER) (test gyii=954) BILIRUBIN TOTAL (BEAKER) 24.4 mg/dL 0.2-1.2 Specimen slightly (test hkms=223) hemolyzed SODIUM (BEAKER) (test 150 meq/L 136-145 ymiw=344) POTASSIUM (BEAKER) (test 3.7 meq/L 3.5-5.1 Specimen slightly fate=667) hemolyzed CHLORIDE (BEAKER) (test 130 meq/L 98-107 cxfz=843) CO2 (BEAKER) (test 17 meq/L 22-29 tmjb=891) BLOOD UREA NITROGEN 23 mg/dL 7-21 (BEAKER) (test hdjd=303) CREATININE (BEAKER) (test 1.57 mg/dL 0.57-1.25 Specimen slightly jlzx=896) hemolyzed GLUCOSE RANDOM (BEAKER) 121 mg/dL 70-105 (test vdmb=341) CALCIUM (BEAKER) (test 7.0 mg/dL 8.4-10.2 todz=952) AST (SGOT) (BEAKER) (test 133 U/L 5-34 Specimen slightly lbax=531) hemolyzed ALT (SGPT) (BEAKER) (test 63 U/L 6-55 Specimen slightly eidm=919) hemolyzed EGFR (BEAKER) (test 47 mL/min/1.73 sq m ESTIMATED GFR IS NOT ggmh=0446) ACCURATE CREATININE CLEARANCE IN PREDICTING GLOMERULAR FILTRATION RATE. ESTIMATED GFR IS NOT APPLICABLE FOR DIALYSIS PATIENTS. Specimen markedly [id number] 05:02:00 Test Item Value Reference Range Comments MAGNESIUM (BEAKER) (test 2.2 mg/dL 1.6-2.6 Specimen slightly hemolyzed uzmc=314) [id number] 05:02:00 Test Item Value Reference Range Comments PHOSPHORUS (BEAKER) (test 3.8 mg/dL 2.3-4.7 Specimen slightly hemolyzed zrun=154) CALCIUM, [id number] 04:44:00 Test Item Value Reference Range Comments CALCIUM IONIZED (BEAKER) (test rypg=736) 1.14 mmol/L 1.12-1.27 PH, BLOOD (BEAKER) (test geim=8243) 7.36 PROTHROMBIN [id number] 04:23:00 Test Item Value Reference Range Comments PROTIME (BEAKER) (test mgsc=984) 23.8 seconds 11.9-14.2 INR (BEAKER) (test npvu=273) 2.3 <=5.9 Effective 10/09/2018: PT Reference Range ChangeNew: 11.9-14.2 Previous: 11.7- 14.7RECOMMENDED COUMADIN/WARFARIN INR THERAPY RANGESSTANDARD DOSE: 2.0-3.0 Includes: PROPHYLAXIS for venous thrombosis, systemic embolization; TREATMENT for venous thrombosis and/or pulmonary embolus.HIGH RISK: Target INR is2.5-3.5 for patients wiht mechanical heart valves.POCT-GLUCOSE [id number] 00:04:00 Test Item Value Reference Range Comments POC-GLUCOSE METER (BEAKER) 115 mg/dL 70-[address] [facility] [address] [facility] (test khtc=2060) [facility] [address] POCT-GLUCOSE [id number] 18:31:00 Test Item Value Reference Range Comments POC-GLUCOSE METER (BEAKER) 111 mg/dL 70-[address] [facility] [employer] [facility] (test jzex=8943) [facility] [address] CBC W/PLT COUNT & AUTO [id number] 15:20:00 Test Item Value Reference Range Comments WHITE BLOOD CELL COUNT (BEAKER) (test ujyr=824) 7.5 K/ L 3.5-10.5 RED BLOOD CELL COUNT (BEAKER) (test pyws=872) 2.65 M/ L 4.63-6.08 HEMOGLOBIN (BEAKER) (test rnwz=075) 9.8 GM/DL 13.7-17.5 HEMATOCRIT (BEAKER) (test hacc=422) 31.7 % 40.1-51.0 MEAN CORPUSCULAR VOLUME (BEAKER) (test tdcs=977) 119.6 fL 79.0-92.2 MEAN CORPUSCULAR HEMOGLOBIN (BEAKER) (test 37.0 pg 25.7-32.2 aeug=137) MEAN CORPUSCULAR HEMOGLOBIN CONC (BEAKER) (test 30.9 GM/DL 32.3-36.5 utub=855) RED CELL DISTRIBUTION WIDTH (BEAKER) (test 27.7 % 11.6-14.4 hykg=660) PLATELET COUNT (BEAKER) (test uhzd=808) 43 K/CU MM 150-450 MEAN PLATELET VOLUME (BEAKER) (test nmla=085) 10.2 fL 9.4-12.4 NUCLEATED RED BLOOD CELLS (BEAKER) (test 1 /100 WBC 0-0 turp=981) (CELLAVISION MANUAL DIFF)2019-01-04 15:20:00 Test Item Value Reference Range Comments NEUTROPHILS - REL (CELLAVISION)(BEAKER) (test 75 % cgff=2196) LYMPHOCYTES - REL (CELLAVISION)(BEAKER) (test 4 % mtbr=9092) MONOCYTES - REL (CELLAVISION)(BEAKER) (test 10 % rllw=2804) EOSINOPHILS - REL (CELLAVISION)(BEAKER) (test 3 % pzkc=3607) BASOPHILS - REL (CELLAVISION)(BEAKER) (test 1 % ahtw=5673) METAMYELOCYTES - REL (CELLAVISION)(BEAKER) (test 1 % 0-0 sksx=6980) BANDS - REL (CELLAVISION)(BEAKER) (test 6 % 0-10 wkkb=5019) NEUTROPHILS - ABS (CELLAVISION)(BEAKER) (test 5.63 K/ul 1.78-5.38 uhha=7980) LYMPHOCYTES - ABS (CELLAVISION)(BEAKER) (test 0.30 K/ul 1.32-3.57 qzha=0699) MONOCYTES - ABS (CELLAVISION)(BEAKER) (test 0.75 K/uL 0.30-0.82 ixkr=2788) EOSINOPHILS - ABS (CELLAVISION)(BEAKER) (test 0.23 K/uL 0.04-0.54 lktt=6562) BASOPHILS - ABS (CELLAVISION)(BEAKER) (test 0.08 K/uL 0.01-0.08 hubo=7866) METAMYELOCYTES - ABS (CELLAVISION)(BEAKER) (test 0.08 K/uL 0.00-0.00 rbmj=0889) BANDS - ABS (CELLAVISION)(BEAKER) (test 0.45 K/uL 0.00-0.80 pxmm=3221) TOTAL COUNTED (BEAKER) (test spxo=9573) 100 WBC MORPHOLOGY (BEAKER) (test rdem=195) Normal PLT MORPHOLOGY (BEAKER) (test qurq=478) Normal POLYCHROMATOPHILLIC RBCS(BEAKER) (test mpxf=982) 2+ moderate HYPOCHROMIA (BEAKER) (test icok=309) 1+ few ANISOCYTOSIS (BEAKER) (test snzo=415) 2+ moderate MICROCYTES (BEAKER) (test zqiq=362) 1+ few MACROCYTES (BEAKER) (test xzvz=202) 2+ moderate POIKILOCYTES (BEAKER) (test bqiz=859) 2+ moderate OVALOCYTES (BEAKER) (test iata=394) 1+ few TEAR DROP CELLS (BEAKER) (test ljwn=404) 1+ few MEG CELLS (BEAKER) (test pybd=641) 2+ moderate ARTIFACT (CELLAVISION)(BEAKER) (test prvn=4913) Present PLATELET CONCENTRATION (CELLAVISION)(BEAKER) Decreased (test mgnq=0377) Received comment: User comments: Slide comments:[id number] 15:13:00 Test Item Value Reference Range Comments SODIUM (BEAKER) (test yoct=389) 153 meq/L 136-145 POTASSIUM (BEAKER) (test aych=654) 3.8 meq/L 3.5-5.1 CHLORIDE (BEAKER) (test hyue=181) 130 meq/L 98-107 CO2 (BEAKER) (test jyww=095) 15 meq/L 22-29 Call results [id number] 11:49:00 Test Item Value Reference Range Comments POC-GLUCOSE METER (BEAKER) 133 mg/dL 70-[address] [facility] [address] [facility] (test uvod=3109) [facility] [address] HEPATIC FUNCTION [id number] 08:57:00 Test Item Value Reference Range Comments TOTAL PROTEIN (BEAKER) (test gxtl=410) 6.5 gm/dL 6.0-8.3 ALBUMIN (BEAKER) (test ixnz=2548) 1.7 g/dL 3.5-5.0 BILIRUBIN TOTAL (BEAKER) (test qtwf=478) 24.6 mg/dL 0.2-1.2 BILIRUBIN DIRECT (BEAKER) (test vmpi=649) 18.4 mg/dL 0.1-0.5 ALKALINE PHOSPHATASE (BEAKER) (test ioef=501) 198 U/L 40-150 AST (SGOT) (BEAKER) (test ffzi=687) 137 U/L 5-34 ALT (SGPT) (BEAKER) (test lhjt=588) 67 U/L 6-55 Check Serum Magnesium level 2 hours after IV magnesium replacement.Specimen markedly ictericCOMPREHENSIVE METABOLIC [id number] 08:57:00 Test Item Value Reference Range Comments TOTAL PROTEIN (BEAKER) 6.5 gm/dL 6.0-8.3 (test mygl=254) ALBUMIN (BEAKER) (test 1.7 g/dL 3.5-5.0 nqzu=2908) ALKALINE PHOSPHATASE 198 U/L 40-150 (BEAKER) (test zqzc=004) BILIRUBIN TOTAL (BEAKER) 24.6 mg/dL 0.2-1.2 (test kboa=777) SODIUM (BEAKER) (test 151 meq/L 136-145 sysi=273) POTASSIUM (BEAKER) (test 3.8 meq/L 3.5-5.1 cfdw=655) CHLORIDE (BEAKER) (test 129 meq/L 98-107 gzvz=366) CO2 (BEAKER) (test 17 meq/L 22-29 fimx=537) BLOOD UREA NITROGEN 14 mg/dL 7-21 (BEAKER) (test qiht=626) CREATININE (BEAKER) (test 1.26 mg/dL 0.57-1.25 oceu=390) GLUCOSE RANDOM (BEAKER) 104 mg/dL 70-105 (test xqoh=063) CALCIUM (BEAKER) (test 7.7 mg/dL 8.4-10.2 deyo=952) AST (SGOT) (BEAKER) (test 137 U/L 5-34 rhax=343) ALT (SGPT) (BEAKER) (test 67 U/L 6-55 zefq=909) EGFR (BEAKER) (test 60 mL/min/1.73 sq m ESTIMATED GFR IS NOT hiyz=1402) ACCURATE CREATININE CLEARANCE IN PREDICTING GLOMERULAR FILTRATION RATE. ESTIMATED GFR IS NOT APPLICABLE FOR DIALYSIS PATIENTS. Check Serum Magnesium level 2 hours after IV magnesium replacement.Specimen markedly [id number] 08:53:00 Test Item Value Reference Range Comments PHOSPHORUS (BEAKER) (test zrhv=339) 3.3 mg/dL 2.3-4.7 Check Serum Magnesium level 2 hours after IV magnesium replacement.[id number] 08:53:00 Test Item Value Reference Range Comments MAGNESIUM (BEAKER) (test hpuc=488) 2.5 mg/dL 1.6-2.6 Check Serum Magnesium level 2 hours after IV magnesium replacement.PROTHROMBIN [id number] 06:55:00 Test Item Value Reference Range Comments PROTIME (BEAKER) (test ixsr=066) 25.3 seconds 11.9-14.2 INR (BEAKER) (test pmvp=629) 2.5 <=5.9 Effective 10/09/2018: PT Reference Range ChangeNew: 11.9-14.2 Previous: 11.7- 14.7RECOMMENDED COUMADIN/WARFARIN INR THERAPY RANGESSTANDARD DOSE: 2.0-3.0 Includes: PROPHYLAXIS for venous thrombosis, systemic embolization; TREATMENT for venous thrombosis and/or pulmonary embolus.HIGH RISK: Target INR is2.5-3.5 for patients wiht mechanical heart valves.POCT-GLUCOSE [id number] 06:14:00 Test Item Value Reference Range Comments POC-GLUCOSE METER (BEAKER) 121 mg/dL 70-110 TESTED AT [address] (test gsxd=1434) [place] [id number] CALCIUM, [id number] 06:00:00 Test Item Value Reference Range Comments CALCIUM IONIZED (BEAKER) (test rpsp=020) 1.20 mmol/L 1.12-1.27 PH, BLOOD (BEAKER) (test anwq=2822) 7.38 [id number] 02:06:00 Test Item Value Reference Range Comments POTASSIUM (BEAKER) (test pjcm=673) 3.5 meq/L 3.5-5.1 Check Serum Magnesium level 2 hours after IV magnesium replacement.Check Serum Potassium level 2 hours after oral potassium replacement completed.[id number] 02:06:00 Test Item Value Reference Range Comments MAGNESIUM (BEAKER) (test erij=454) 2.2 mg/dL 1.6-2.6 Check Serum Magnesium level 2 hours after IV magnesium replacement.Check Serum Potassium level 2 hours after oral potassium replacement completed.POCT-GLUCOSE [id number] 00:57:00 Test Item Value Reference Range Comments POC-GLUCOSE METER (BEAKER) 127 mg/dL 70-110 TESTED AT [address] (test tzvw=8154) [place] [id number] BASIC METABOLIC [id number] 18:42:00 Test Item Value Reference Range Comments SODIUM (BEAKER) (test 151 meq/L 136-145 spfd=935) POTASSIUM (BEAKER) (test 3.3 meq/L 3.5-5.1 dgmu=868) CHLORIDE (BEAKER) (test 130 meq/L 98-107 nqlz=855) CO2 (BEAKER) (test 18 meq/L 22-29 uaqc=814) BLOOD UREA NITROGEN 12 mg/dL 7-21 (BEAKER) (test nmpj=285) CREATININE (BEAKER) (test 1.19 mg/dL 0.57-1.25 lkbo=618) GLUCOSE RANDOM (BEAKER) 118 mg/dL 70-105 (test klsq=139) CALCIUM (BEAKER) (test 8.0 mg/dL 8.4-10.2 lnib=708) EGFR (BEAKER) (test 64 mL/min/1.73 sq m ESTIMATED GFR IS NOT tluv=2701) ACCURATE CREATININE CLEARANCE IN PREDICTING GLOMERULAR FILTRATION RATE. ESTIMATED GFR IS NOT APPLICABLE FOR DIALYSIS PATIENTS. Specimen markedly [id number] 18:38:00 Test Item Value Reference Range Comments PHOSPHORUS (BEAKER) (test uodl=243) 2.9 mg/dL 2.3-4.7 [id number] 18:38:00 Test Item Value Reference Range Comments MAGNESIUM (BEAKER) (test jfwz=827) 2.0 mg/dL 1.6-2.6 POCT-GLUCOSE [id number] 11:04:00 Test Item Value Reference Range Comments POC-GLUCOSE METER (BEAKER) 114 mg/dL 70-110 TESTED AT [address] (test ybnk=8648) [facility] [address] U/S, DUPLEX, [id number] 07:33:00elevated liver enzymes; undergoing urgent liver transplant [...] to suggest acute cholecystitis. Signed: Zaina Mckeon [facility] Verified Date/Time: 2018 07:33:18 Electronically signed by: ZAINA MCKEON MD on 2018 07:33 AMHEPATIC FUNCTION [id number] 07:17:00 Test Item Value Reference Range Comments TOTAL PROTEIN (BEAKER) (test 6.7 gm/dL 6.0-8.3 Specimen slightly hemolyzed lffj=658) ALBUMIN (BEAKER) (test 1.7 g/dL 3.5-5.0 Specimen slightly hemolyzed xcse=1794) BILIRUBIN TOTAL (BEAKER) (test 26.6 mg/dL 0.2-1.2 Specimen slightly hemolyzed axcg=927) BILIRUBIN DIRECT (BEAKER) 19.7 mg/dL 0.1-0.5 Specimen slightly hemolyzed (test xbau=960) ALKALINE PHOSPHATASE (BEAKER) 181 U/L 40-150 (test ondz=256) AST (SGOT) (BEAKER) (test 151 U/L 5-34 Specimen slightly hemolyzed puun=311) ALT (SGPT) (BEAKER) (test 77 U/L 6-55 Specimen slightly hemolyzed ccyw=650) Specimen markedly ictericCOMPREHENSIVE METABOLIC [id number] 07:13:00 Test Item Value Reference Range Comments TOTAL PROTEIN (BEAKER) 6.7 gm/dL 6.0-8.3 Specimen slightly (test bzty=590) hemolyzed ALBUMIN (BEAKER) (test 1.7 g/dL 3.5-5.0 Specimen slightly uthg=2682) hemolyzed ALKALINE PHOSPHATASE 181 U/L 40-150 (BEAKER) (test xbwt=839) BILIRUBIN TOTAL (BEAKER) 26.6 mg/dL 0.2-1.2 Specimen slightly (test fvmk=892) hemolyzed SODIUM (BEAKER) (test 149 meq/L 136-145 mqau=510) POTASSIUM (BEAKER) (test 3.2 meq/L 3.5-5.1 Specimen slightly emam=680) hemolyzed CHLORIDE (BEAKER) (test 127 meq/L 98-107 qqsk=704) CO2 (BEAKER) (test 18 meq/L 22-29 isba=882) BLOOD UREA NITROGEN 12 mg/dL 7-21 (BEAKER) (test vcdo=881) CREATININE (BEAKER) (test 1.23 mg/dL 0.57-1.25 Specimen slightly gtry=105) hemolyzed GLUCOSE RANDOM (BEAKER) 112 mg/dL 70-105 (test pxwi=719) CALCIUM (BEAKER) (test 8.3 mg/dL 8.4-10.2 wlnz=622) AST (SGOT) (BEAKER) (test 151 U/L 5-34 Specimen slightly sbrt=979) hemolyzed ALT (SGPT) (BEAKER) (test 77 U/L 6-55 Specimen slightly uhgd=968) hemolyzed EGFR (BEAKER) (test 62 mL/min/1.73 sq m ESTIMATED GFR IS NOT wivh=4171) ACCURATE CREATININE CLEARANCE IN PREDICTING GLOMERULAR FILTRATION RATE. ESTIMATED GFR IS NOT APPLICABLE FOR DIALYSIS PATIENTS. Specimen markedly ictericCBC W/PLT COUNT & AUTO [id number] 07:12 :00 Test Item Value Reference Range Comments WHITE BLOOD CELL COUNT 7.7 K/ L 3.5-10.5 (BEAKER) (test fshy=390) RED BLOOD CELL COUNT (BEAKER) 2.67 M/ L 4.63-6.08 (test rnhl=060) HEMOGLOBIN (BEAKER) (test 9.7 GM/DL 13.7-17.5 ripj=147) HEMATOCRIT (BEAKER) (test 31.3 % 40.1-51.0 dmmr=610) MEAN CORPUSCULAR VOLUME 117.2 fL 79.0-92.2 Discordant result compared (BEAKER) (test jpsi=119) to previous result; clinical correlation required. MEAN CORPUSCULAR HEMOGLOBIN 36.3 pg 25.7-32.2 (BEAKER) (test vdxy=383) MEAN CORPUSCULAR HEMOGLOBIN 31.0 GM/DL 32.3-36.5 CONC (BEAKER) (test pwyi=868) RED CELL DISTRIBUTION WIDTH 27.1 % 11.6-14.4 (BEAKER) (test cupf=153) PLATELET COUNT (BEAKER) (test 49 K/CU MM 150-450 dcqg=205) MEAN PLATELET VOLUME (BEAKER) 11.4 fL 9.4-12.4 (test crvr=866) NUCLEATED RED BLOOD CELLS 1 /100 WBC 0-0 (BEAKER) (test trbw=751) NEUTROPHILS RELATIVE PERCENT 70 % (BEAKER) (test cukj=439) LYMPHOCYTES RELATIVE PERCENT 9 % (BEAKER) (test fvyh=471) MONOCYTES RELATIVE PERCENT 14 % (BEAKER) (test ibqa=854) EOSINOPHILS RELATIVE PERCENT 3 % (BEAKER) (test ekce=484) BASOPHILS RELATIVE PERCENT 1 % (BEAKER) (test grio=275) NEUTROPHILS ABSOLUTE COUNT 5.39 K/ L 1.78-5.38 (BEAKER) (test shdy=679) LYMPHOCYTES ABSOLUTE COUNT 0.69 K/ L 1.32-3.57 (BEAKER) (test haxx=069) MONOCYTES ABSOLUTE COUNT 1.11 K/ L 0.30-0.82 (BEAKER) (test vbtj=943) EOSINOPHILS ABSOLUTE COUNT 0.22 K/ L 0.04-0.54 (BEAKER) (test laux=570) BASOPHILS ABSOLUTE COUNT 0.09 K/ L 0.01-0.08 (BEAKER) (test cjgi=948) IMMATURE GRANULOCYTES-RELATIVE 3 % 0-1 PERCENT (BEAKER) (test qskz=2178) [id number] 06:50:00 Test Item Value Reference Range Comments MAGNESIUM (BEAKER) (test 2.2 mg/dL 1.6-2.6 Specimen slightly hemolyzed nvep=109) [id number] 06:50:00 Test Item Value Reference Range Comments PHOSPHORUS (BEAKER) (test 1.6 mg/dL 2.3-4.7 Specimen slightly hemolyzed tkgb=430) PROTHROMBIN [id number] 06:13:00 Test Item Value Reference Range Comments PROTIME (BEAKER) (test vmdu=971) 28.3 seconds 11.9-14.2 INR (BEAKER) (test elpl=252) 2.8 <=5.9 Effective 10/09/2018: PT Reference Range ChangeNew: 11.9-14.2 Previous: 11.7- 14.7RECOMMENDED COUMADIN/WARFARIN INR THERAPY RANGESSTANDARD DOSE: 2.0-3.0 Includes: PROPHYLAXIS for venous thrombosis, systemic embolization; TREATMENT for venous thrombosis and/or pulmonary embolus.HIGH RISK: Target INR is2.5-3.5 for patients wiht mechanical heart valves.CALCIUM, [id number] 05:52:00 Test Item Value Reference Range Comments CALCIUM IONIZED (BEAKER) (test klny=746) 1.28 mmol/L 1.12-1.27 PH, BLOOD (AKER) (test alhd=6786) 7.36 POCT-GLUCOSE [id number] 05:31:00 Test Item Value Reference Range Comments POC-GLUCOSE METER (BEAKER) 125 mg/dL 70-110 TESTED AT [address] (test vlmu=0722) [place] [id number] POCT-GLUCOSE [id number] 02:37:00 Test Item Value Reference Range Comments POC-GLUCOSE METER (BEAKER) 138 mg/dL 70-110 TESTED AT [address] (test ugub=9508) [place] [address] [id number] 00:26:00 Test Item Value Reference Range Comments POTASSIUM (BEAKER) (test dtnz=731) 3.2 meq/L 3.5-5.1 Check Serum Potassium level 2 hours after oral potassium replacement completed.POCT-GLUCOSE [id number] 18:22:00 Test Item Value Reference Range Comments POC-GLUCOSE METER (BEAKER) 133 mg/dL 70-110 TESTED AT [address] (test wnzg=5274) [place] [id number] POCT-GLUCOSE [id number] 18:20:00 Test Item Value Reference Range Comments POC-GLUCOSE METER (BEAKER) 112 mg/dL 70-110 TESTED AT [address] (test aqmg=4795) [place] [address] [id number] 18:19:00 Test Item Value Reference Range Comments SODIUM (BEAKER) (test tfis=492) 150 meq/L 136-145 POTASSIUM (BEAKER) (test livb=905) 3.0 meq/L 3.5-5.1 CHLORIDE (BEAKER) (test bqjr=546) 128 meq/L 98-107 CO2 (BEAKER) (test gaww=251) 17 meq/L 22- Call results [id number] 18:07:00 Test Item Value Reference Range Comments PHOSPHORUS (BEAKER) (test xvii=460) 2.8 mg/dL 2.3-4.7 Call results [id number] NATRIURETIC FACTOR (BNP)2019-01-02 11:37:00 Test Item Value Reference Range Comments B-TYPE NATRIURETIC PEPTIDE (BEAKER) (test 239 pg/mL 0-100 ggxm=830) POCT-GLUCOSE [id number] 06:38:00 Test Item Value Reference Range Comments POC-GLUCOSE METER (BEAKER) 116 mg/dL 70-110 TESTED AT [address] (test wtmd=5800) [place] [address] COMPREHENSIVE METABOLIC [id number] 06:09:00 Test Item Value Reference Range Comments TOTAL PROTEIN (BEAKER) 6.3 gm/dL 6.0-8.3 (test vbvh=929) ALBUMIN (BEAKER) (test 1.6 g/dL 3.5-5.0 cawg=7992) ALKALINE PHOSPHATASE 162 U/L 40-150 (BEAKER) (test raek=169) BILIRUBIN TOTAL (BEAKER) 24.3 mg/dL 0.2-1.2 (test ibwp=804) SODIUM (BEAKER) (test 148 meq/L 136-145 lbhf=767) POTASSIUM (BEAKER) (test 3.6 meq/L 3.5-5.1 gtyl=380) CHLORIDE (BEAKER) (test 127 meq/L 98-107 jwxb=697) CO2 (BEAKER) (test 16 meq/L 22-29 qwcy=251) BLOOD UREA NITROGEN 14 mg/dL 7-21 (BEAKER) (test bwic=710) CREATININE (BEAKER) (test 1.55 mg/dL 0.57-1.25 uqzr=821) GLUCOSE RANDOM (BEAKER) 118 mg/dL 70-105 (test dcwl=119) CALCIUM (BEAKER) (test 8.1 mg/dL 8.4-10.2 dorx=374) AST (SGOT) (BEAKER) (test 174 U/L 5-34 xorh=572) ALT (SGPT) (BEAKER) (test 80 U/L 6-55 zrmx=837) EGFR (BEAKER) (test 47 mL/min/1.73 sq m ESTIMATED GFR IS NOT grao=6628) ACCURATE CREATININE CLEARANCE IN PREDICTING GLOMERULAR FILTRATION RATE. ESTIMATED GFR IS NOT APPLICABLE FOR DIALYSIS PATIENTS. Specimen markedly ictericHEPATIC FUNCTION [id number] 06:08:00 Test Item Value Reference Range Comments TOTAL PROTEIN (BEAKER) (test vpac=511) 6.3 gm/dL 6.0-8.3 ALBUMIN (BEAKER) (test qzaw=4743) 1.6 g/dL 3.5-5.0 BILIRUBIN TOTAL (BEAKER) (test ohlx=285) 24.3 mg/dL 0.2-1.2 BILIRUBIN DIRECT (BEAKER) (test jxml=301) 17.9 mg/dL 0.1-0.5 ALKALINE PHOSPHATASE (BEAKER) (test ocbb=724) 162 U/L 40-150 AST (SGOT) (BEAKER) (test ansp=071) 174 U/L 5-34 ALT (SGPT) (BEAKER) (test yaba=539) 80 U/L 6-55 Specimen markedly [id number] 06:07:00 Test Item Value Reference Range Comments PHOSPHORUS (BEAKER) (test zlad=378) 1.0 mg/dL 2.3-4.7 [id number] 05:56:00 Test Item Value Reference Range Comments MAGNESIUM (BEAKER) (test jgib=409) 2.4 mg/dL 1.6-2.6 CREATINE KINASE (CK)2019-01-02 05:56:00 Test Item Value Reference Range Comments CREATINE KINASE TOTAL (BEAKER) (test ekvo=886) 198 U/L 29-200 CBC W/PLT COUNT & AUTO [id number] 04:48:00 Test Item Value Reference Range Comments WHITE BLOOD CELL COUNT (BEAKER) (test jbuy=792) 7.5 K/ L 3.5-10.5 RED BLOOD CELL COUNT (BEAKER) (test ewvn=314) 2.53 M/ L 4.63-6.08 HEMOGLOBIN (BEAKER) (test ppfc=587) 9.1 GM/DL 13.7-17.5 HEMATOCRIT (BEAKER) (test zogt=104) 28.6 % 40.1-51.0 MEAN CORPUSCULAR VOLUME (BEAKER) (test kqgd=903) 113.0 fL 79.0-92.2 MEAN CORPUSCULAR HEMOGLOBIN (BEAKER) (test 36.0 pg 25.7-32.2 nfuc=923) MEAN CORPUSCULAR HEMOGLOBIN CONC (BEAKER) (test 31.8 GM/DL 32.3-36.5 wtxx=954) RED CELL DISTRIBUTION WIDTH (BEAKER) (test 27.8 % 11.6-14.4 yibl=173) PLATELET COUNT (BEAKER) (test rceg=561) 57 K/CU MM 150-450 MEAN PLATELET VOLUME (BEAKER) (test fzkp=565) 10.4 fL 9.4-12.4 NUCLEATED RED BLOOD CELLS (BEAKER) (test 1 /100 WBC 0-0 qbrk=401) NEUTROPHILS RELATIVE PERCENT (BEAKER) (test 70 % whow=626) LYMPHOCYTES RELATIVE PERCENT (BEAKER) (test 11 % spxg=766) MONOCYTES RELATIVE PERCENT (BEAKER) (test 15 % zmku=526) EOSINOPHILS RELATIVE PERCENT (BEAKER) (test 1 % arrp=652) BASOPHILS RELATIVE PERCENT (BEAKER) (test 0 % mefn=790) NEUTROPHILS ABSOLUTE COUNT (BEAKER) (test 5.19 K/ L 1.78-5.38 ecnh=389) LYMPHOCYTES ABSOLUTE COUNT (BEAKER) (test 0.80 K/ L 1.32-3.57 krvh=350) MONOCYTES ABSOLUTE COUNT (BEAKER) (test hdpd=574) 1.14 K/ L 0.30-0.82 EOSINOPHILS ABSOLUTE COUNT (BEAKER) (test 0.10 K/ L 0.04-0.54 xrbg=839) BASOPHILS ABSOLUTE COUNT (BEAKER) (test nyvp=487) 0.03 K/ L 0.01-0.08 IMMATURE GRANULOCYTES-RELATIVE PERCENT (BEAKER) 3 % 0-1 (test xcyf=8554) PROTHROMBIN [id number] 04:40:00 Test Item Value Reference Range Comments PROTIME (BEAKER) (test viex=665) 31.3 seconds 11.9-14.2 INR (BEAKER) (test fzbx=731) 3.2 <=5.9 Effective 10/09/2018: PT Reference Range ChangeNew: 11.9-14.2 Previous: 11.7- 14.7RECOMMENDED COUMADIN/WARFARIN INR THERAPY RANGESSTANDARD DOSE: 2.0-3.0 Includes: PROPHYLAXIS for venous thrombosis, systemic embolization; TREATMENT for venous thrombosis and/or pulmonary embolus.HIGH RISK: Target INR is2.5-3.5 for patients wiht mechanical heart valves.CALCIUM, [id number] 04:33:00 Test Item Value Reference Range Comments CALCIUM IONIZED (BEAKER) (test ogba=813) 1.26 mmol/L 1.12-1.27 PH, BLOOD (BEAKER) (test josm=0781) 7.40 POCT-GLUCOSE [id number] 01:05:00 Test Item Value Reference Range Comments POC-GLUCOSE METER (BEAKER) 135 mg/dL 70-110 TESTED AT [address] (test gxsw=3941) [facility] [address] BASIC METABOLIC [id number] 21:43:00 Test Item Value Reference Range Comments SODIUM (BEAKER) (test 143 meq/L 136-145 afbc=166) POTASSIUM (BEAKER) (test 3.3 meq/L 3.5-5.1 lbci=744) CHLORIDE (BEAKER) (test 123 meq/L 98-107 ecaa=004) CO2 (BEAKER) (test 16 meq/L 22-29 pzhq=511) BLOOD UREA NITROGEN 13 mg/dL 7-21 (BEAKER) (test aygm=196) CREATININE (BEAKER) (test 1.49 mg/dL 0.57-1.25 tprp=317) GLUCOSE RANDOM (BEAKER) 116 mg/dL 70-105 (test zpqb=569) CALCIUM (BEAKER) (test 7.7 mg/dL 8.4-10.2 bxjr=017) EGFR (BEAKER) (test 50 mL/min/1.73 sq m ESTIMATED GFR IS NOT zyqy=3577) ACCURATE CREATININE CLEARANCE IN PREDICTING GLOMERULAR FILTRATION RATE. ESTIMATED GFR IS NOT APPLICABLE FOR DIALYSIS PATIENTS. Specimen markedly ictericPOCT-GLUCOSE [id number] 18:17:00 Test Item Value Reference Range Comments POC-GLUCOSE METER (BEAKER) 144 mg/dL 70-110 TESTED AT [address] (test mkcr=6913) [place] [address] HEPATITIS A ANTIBODY, [id number] 15:54:00 Test Item Value Reference Range Comments HEPATITIS A IGM ANTIBODY (BEAKER) (test Nonreactive Nonreactive owpg=028) BASIC METABOLIC [id number] 15:42:00 Test Item Value Reference Range Comments SODIUM (BEAKER) (test 144 meq/L 136-145 izvl=456) POTASSIUM (BEAKER) (test 3.0 meq/L 3.5-5.1 zruv=578) CHLORIDE (BEAKER) (test 121 meq/L 98-107 vjeu=472) CO2 (BEAKER) (test 18 meq/L 22-29 zqhz=733) BLOOD UREA NITROGEN 14 mg/dL 7-21 (BEAKER) (test ljrf=114) CREATININE (BEAKER) (test 1.52 mg/dL 0.57-1.25 nwdy=172) GLUCOSE RANDOM (BEAKER) 118 mg/dL 70-105 (test bmgi=477) CALCIUM (BEAKER) (test 7.9 mg/dL 8.4-10.2 tqmm=582) EGFR (BEAKER) (test 48 mL/min/1.73 sq m ESTIMATED GFR IS NOT gzmv=3683) ACCURATE CREATININE CLEARANCE IN PREDICTING GLOMERULAR FILTRATION RATE. ESTIMATED GFR IS NOT APPLICABLE FOR DIALYSIS PATIENTS. Specimen markedly ictericPOCT-GLUCOSE [id number] 12:36:00 Test Item Value Reference Range Comments POC-GLUCOSE METER (BEAKER) 120 mg/dL 70-110 TESTED AT [address] (test tqem=0070) [place] [id number] 11:40:00 Test Item Value Reference Range Comments AMMONIA (BEAKER) (test rjps=607) 146 mol/L 18-72 HEPATITIS C [id number] 11:39:00 Test Item Value Reference Range Comments HEPATITIS C ANTIBODY (BEAKER) (test qhwg=806) Nonreactive Nonreactive BLOOD GAS, [id number] 11:25:00 Test Item Value Reference Range Comments PH VENOUS (BEAKER) (test avxn=871) 7.44 7.32-7.42 PCO2 VENOUS (BEAKER) (test joou=399) 27 mmHg 41-51 PO2 VENOUS (BEAKER) (test abkl=775) 53 mmHg 25-40 O2 SATURATION VENOUS (BEAKER) (test voru=868) 89.6 % 40.0-70.0 HCO3 VENOUS (BEAKER) (test gpyd=821) 18 mmol/L 21-29 BASE EXCESS VENOUS (BEAKER) (test jrzz=050) -5.3 mmol/L -2.0-3.0 PATIENT TEMPERATURE (BEAKER) (test dwpr=9247) 36.8 C FIO2 (BEAKER) (test dstz=8287) 21.0 % URINALYSIS W/ REFLEX URINE [id number] 09:48:00 Test Item Value Reference Range Comments COLOR (BEAKER) (test tmig=908) Brown CLARITY (BEAKER) (test vkza=760) Clear SPECIFIC GRAVITY UA (BEAKER) (test wafv=796) 1.014 1.001-1.035 PH UA (BEAKER) (test ogwn=565) 6.5 5.0-8.0 PROTEIN UA (BEAKER) (test aruc=917) 20 mg/dL Negative GLUCOSE UA (BEAKER) (test ntjf=391) Negative Negative KETONES UA (BEAKER) (test hcat=863) 10 mg/dL Negative BILIRUBIN UA (BEAKER) (test fsow=578) Positive Negative BLOOD UA (BEAKER) (test mnfi=717) Trace Negative NITRITE UA (BEAKER) (test jccd=561) Negative Negative LEUKOCYTE ESTERASE UA (BEAKER) (test achi=563) Small Negative UROBILINOGEN UA (BEAKER) (test nenu=797) 3.0 mg/dL 0.2-1.0 RBC UA (BEAKER) (test cpeg=243) 4 /HPF WBC UA (BEAKER) (test bidq=470) 4 /HPF BACTERIA (BEAKER) (test wddj=186) Occasional MUCUS (BEAKER) (test smwn=6123) Occasional SQUAMOUS EPITHELIAL (BEAKER) (test stjy=975) < /HPF CASTS (BEAKER) (test bbfp=3142) 6 /LPF SOURCE(BEAKER) (test wivz=7275) LACTIC ACID, [id number] 09:31:00 Test Item Value Reference Range Comments LACTATE BLOOD VENOUS (2) (BEAKER) (test 1.5 mmol/L 0.5-2.2 ngfb=5788) Specimen markedly ictericPOCT-GLUCOSE [id number] 06:45:00 Test Item Value Reference Range Comments POC-GLUCOSE METER (BEAKER) 149 mg/dL 70-[address] [facility] [address] [facility] (test redj=0280) [facility] [address] COMPREHENSIVE METABOLIC [id number] 04:59:00 Test Item Value Reference Range Comments TOTAL PROTEIN (BEAKER) 6.5 gm/dL 6.0-8.3 (test iajo=449) ALBUMIN (BEAKER) (test 1.7 g/dL 3.5-5.0 pdmf=1945) ALKALINE PHOSPHATASE 169 U/L 40-150 (BEAKER) (test algs=854) BILIRUBIN TOTAL (BEAKER) 23.5 mg/dL 0.2-1.2 (test fwoj=582) SODIUM (BEAKER) (test 144 meq/L 136-145 aylf=688) POTASSIUM (BEAKER) (test 2.8 meq/L 3.5-5.1 wiqm=115) CHLORIDE (BEAKER) (test 119 meq/L 98-107 crxl=795) CO2 (BEAKER) (test 19 meq/L 22-29 puhh=757) BLOOD UREA NITROGEN 11 mg/dL 7-21 (BEAKER) (test ismy=075) CREATININE (BEAKER) (test 1.28 mg/dL 0.57-1.25 qoeq=604) GLUCOSE RANDOM (BEAKER) 135 mg/dL 70-105 (test opiu=224) CALCIUM (BEAKER) (test 7.9 mg/dL 8.4-10.2 zpgr=841) AST (SGOT) (BEAKER) (test 240 U/L 5-34 zwix=699) ALT (SGPT) (BEAKER) (test 94 U/L 6-55 dvag=167) EGFR (BEAKER) (test 59 mL/min/1.73 sq m ESTIMATED GFR IS NOT vffp=2477) ACCURATE CREATININE CLEARANCE IN PREDICTING GLOMERULAR FILTRATION RATE. ESTIMATED GFR IS NOT APPLICABLE FOR DIALYSIS PATIENTS. Specimen markedly [id number] 04:49:00 Test Item Value Reference Range Comments MAGNESIUM (BEAKER) (test dlms=047) 2.6 mg/dL 1.6-2.6 CREATINE KINASE (CK)2019-01-01 04:49:00 Test Item Value Reference Range Comments CREATINE KINASE TOTAL (BEAKER) (test ioww=808) 451 U/L 29-200 CBC W/PLT COUNT & AUTO [id number] 04:26:00 Test Item Value Reference Range Comments WHITE BLOOD CELL COUNT (BEAKER) (test aocm=767) 6.4 K/ L 3.5-10.5 RED BLOOD CELL COUNT (BEAKER) (test tfem=701) 2.67 M/ L 4.63-6.08 HEMOGLOBIN (BEAKER) (test jhcr=994) 9.5 GM/DL 13.7-17.5 HEMATOCRIT (BEAKER) (test plyz=917) 28.4 % 40.1-51.0 MEAN CORPUSCULAR VOLUME (BEAKER) (test ixis=170) 106.4 fL 79.0-92.2 MEAN CORPUSCULAR HEMOGLOBIN (BEAKER) (test 35.6 pg 25.7-32.2 cdww=071) MEAN CORPUSCULAR HEMOGLOBIN CONC (BEAKER) (test 33.5 GM/DL 32.3-36.5 gqnp=214) RED CELL DISTRIBUTION WIDTH (BEAKER) (test 27.0 % 11.6-14.4 toum=288) PLATELET COUNT (BEAKER) (test wlfm=014) 48 K/CU MM 150-450 MEAN PLATELET VOLUME (BEAKER) (test grfy=511) 11.1 fL 9.4-12.4 NUCLEATED RED BLOOD CELLS (BEAKER) (test 1 /100 WBC 0-0 lhqi=906) NEUTROPHILS RELATIVE PERCENT (BEAKER) (test 79 % wcqk=162) LYMPHOCYTES RELATIVE PERCENT (BEAKER) (test 9 % alhz=648) MONOCYTES RELATIVE PERCENT (BEAKER) (test 10 % tcbr=304) EOSINOPHILS RELATIVE PERCENT (BEAKER) (test 1 % rizr=205) BASOPHILS RELATIVE PERCENT (BEAKER) (test 0 % ocoj=314) NEUTROPHILS ABSOLUTE COUNT (BEAKER) (test 5.03 K/ L 1.78-5.38 wklq=638) LYMPHOCYTES ABSOLUTE COUNT (BEAKER) (test 0.57 K/ L 1.32-3.57 zgki=517) MONOCYTES ABSOLUTE COUNT (BEAKER) (test ppvk=383) 0.66 K/ L 0.30-0.82 EOSINOPHILS ABSOLUTE COUNT (BEAKER) (test 0.03 K/ L 0.04-0.54 agyy=992) BASOPHILS ABSOLUTE COUNT (BEAKER) (test fptz=317) 0.02 K/ L 0.01-0.08 IMMATURE GRANULOCYTES-RELATIVE PERCENT (BEAKER) 1 % 0-1 (test mhwo=1092) SODIUM, RANDOM [id number] 03:59:00 Test Item Value Reference Range Comments SODIUM URINE (BEAKER) (test lluo=230) 22 meq/L Reference Range: No NormalsCREATININE, RANDOM [id number] 03:25:00 Test Item Value Reference Range Comments CREATININE URINE (BEAKER) (test zuih=006) 179.7 mg/dL Reference Range: No NormalsU/S, ABDOMINAL, [id number] 01:12:00With dopplerReason for exam:->elevated liver enzymes; undergoing [...] to suggest acute cholecystitis. Signed: Zaina Mckeon [facility] Verified Date/Time: 2018 01:12:09 Electronically signed by: ZAINA MCKEON MD on 2018 01:12 AMPOCT-GLUCOSE [id number] 00:18:00 Test Item Value Reference Range Comments POC-GLUCOSE METER (stickapps) 146 mg/dL 70-110 TESTED AT [address] (test sqkn=5738) [facility] [address] ALPHA FETOPROTEIN (AFP), TUMOR [id number] 22:26:00 Test Item Value Reference Range Comments ALPHA-FETOPROTEIN (BEAKER) (test scpz=5211) < ng/mL <10.0 LACTIC ACID, [id number] 21:50:00 Test Item Value Reference Range Comments LACTATE BLOOD VENOUS (2) (stickapps) (test 2.7 mmol/L 0.5-2.2 hvgx=0957) Specimen markedly ictericPOCT-GLUCOSE [id number] 21:44:00 Test Item Value Reference Range Comments POC-GLUCOSE METER (BEAKER) 124 mg/dL 70-[address] [facility] [address] (test ihgi=4895) [place] [address] LACTIC ACID, [id number] 21:12:00 Test Item Value Reference Range Comments LACTATE BLOOD VENOUS (2) (BEAKER) (test 2.0 mmol/L 0.5-2.2 wvpa=1317) Specimen markedly ictericRAD, CHEST, 1 VIEW, NON [id number] 20:02:00Post- intubationReason for exam:->aspiration pneumonitisShould this be performed at the bedside?->YesFINAL REPORT AP chest dated 2018 Comment: Heart is normal in size. Pulmonary vasculature is unremarkable. Lungs are clear. No pulmonary infiltrate or pleural effusion. Impression: Normal chest. Signed: Calixto Dalton Verified Date/Time: 12/31/2018 20:02 :55 Reading Location: [address] Consult Reading Room HEPATITIS B SURFACE [id number] 19:40:00 Test Item Value Reference Range Comments HEPATITIS B SURFACE ANTIBODY (BEAKER) (test < mIU/mL <8.0 zgal=596) HEPATITIS A ANTIBODY, [id number] 19:40:00 Test Item Value Reference Range Comments HEPATITIS A IGG ANTIBODY (BEAKER) (test cxmf=0209) Reactive Nonreactive HEPATITIS B SURFACE [id number] 19:37:00 Test Item Value Reference Range Comments HEPATITIS B SURFACE ANTIGEN (2) (BEAKER) (test Nonreactive Nonreactive ghuz=8047) HEPATITIS B CORE ANTIBODY, [id number] 19:37:00 Test Item Value Reference Range Comments HEPATITIS B CORE IGM ANTIBODY (BEAKER) (test Nonreactive Nonreactive qsno=821) [id number] 19:33:00 Test Item Value Reference Range Comments PROCALCITONIN (BEAKER) (test ounm=7609) 0.24 ng/mL <0.05 SEPSIS RISK (ng/mL)Low: 0.05-0.50Intermediate: 0.51-2.00High: & gt;=2.01COMPREHENSIVE METABOLIC [id number] 19:23:00 Test Item Value Reference Range Comments TOTAL PROTEIN (BEAKER) 7.3 gm/dL 6.0-8.3 (test nsgf=064) ALBUMIN (BEAKER) (test 1.9 g/dL 3.5-5.0 ajch=4311) ALKALINE PHOSPHATASE 194 U/L 40-150 (BEAKER) (test nnmu=465) BILIRUBIN TOTAL (BEAKER) 26.2 mg/dL 0.2-1.2 (test olor=916) SODIUM (BEAKER) (test 143 meq/L 136-145 dofu=726) POTASSIUM (BEAKER) (test 2.8 meq/L 3.5-5.1 yudb=544) CHLORIDE (BEAKER) (test 116 meq/L 98-107 lpft=857) CO2 (BEAKER) (test 18 meq/L 22-29 xenh=591) BLOOD UREA NITROGEN 10 mg/dL 7-21 (BEAKER) (test zfht=218) CREATININE (BEAKER) (test 1.36 mg/dL 0.57-1.25 fhys=148) GLUCOSE RANDOM (BEAKER) 109 mg/dL 70-105 (test muza=209) CALCIUM (BEAKER) (test 7.7 mg/dL 8.4-10.2 shby=704) AST (SGOT) (BEAKER) (test 273 U/L 5-34 wobs=893) ALT (SGPT) (BEAKER) (test 109 U/L 6-55 prqk=921) EGFR (BEAKER) (test 55 mL/min/1.73 sq m ESTIMATED GFR IS NOT jjju=1306) ACCURATE CREATININE CLEARANCE IN PREDICTING GLOMERULAR FILTRATION RATE. ESTIMATED GFR IS NOT APPLICABLE FOR DIALYSIS PATIENTS. Specimen markedly [id number] 19:22:00 Test Item Value Reference Range Comments MAGNESIUM (BEAKER) (test zbai=933) 1.6 mg/dL 1.6-2.6 CREATINE KINASE (CK)2018-12-31 19:18:00 Test Item Value Reference Range Comments CREATINE KINASE TOTAL (BEAKER) (test batl=856) 426 U/L 29-200 PROTHROMBIN [id number] 19:17:00 Test Item Value Reference Range Comments PROTIME (BEAKER) (test uqze=684) 33.9 seconds 11.9-14.2 INR (BEAKER) (test dafu=313) 3.6 <=5.9 Effective 10/09/2018: PT Reference Range ChangeNew: 11.9-14.2 Previous: 11.7- 14.7RECOMMENDED COUMADIN/WARFARIN INR THERAPY RANGESSTANDARD DOSE: 2.0-3.0 Includes: PROPHYLAXIS for venous thrombosis, systemic embolization; TREATMENT for venous thrombosis and/or pulmonary embolus.HIGH RISK: Target INR is2.5-3.5 for patients wiht mechanical heart valves.[id number] 19:17:00 Test Item Value Reference Range Comments AMYLASE (BEAKER) (test hrkx=469) 36 U/L 25-125 Specimen markedly [id number] 19:17:00 Test Item Value Reference Range Comments LIPASE (BEAKER) (test jzxq=779) 34 U/L 8-78 Specimen markedly [id number] 19:14:00 Test Item Value Reference Range Comments ETHANOL (BEAKER) (test pxct=313) < mg/dL <=10 LACTIC ACID, [id number] 19:13:00 Test Item Value Reference Range Comments LACTATE BLOOD VENOUS (2) (BEAKER) (test 2.9 mmol/L 0.5-2.2 oirc=5043) Specimen markedly ictericCBC W/PLT COUNT & AUTO [id number] 19:06 :00 Test Item Value Reference Range Comments WHITE BLOOD CELL COUNT (BEAKER) (test avqq=546) 6.4 K/ L 3.5-10.5 RED BLOOD CELL COUNT (BEAKER) (test njyr=280) 2.88 M/ L 4.63-6.08 HEMOGLOBIN (BEAKER) (test ocys=924) 10.1 GM/DL 13.7-17.5 HEMATOCRIT (BEAKER) (test ydbf=595) 30.3 % 40.1-51.0 MEAN CORPUSCULAR VOLUME (BEAKER) (test aisw=930) 105.2 fL 79.0-92.2 MEAN CORPUSCULAR HEMOGLOBIN (BEAKER) (test 35.1 pg 25.7-32.2 jjgr=295) MEAN CORPUSCULAR HEMOGLOBIN CONC (BEAKER) (test 33.3 GM/DL 32.3-36.5 zois=838) RED CELL DISTRIBUTION WIDTH (BEAKER) (test 26.9 % 11.6-14.4 rszk=816) PLATELET COUNT (BEAKER) (test bnrp=934) 43 K/CU MM 150-450 MEAN PLATELET VOLUME (BEAKER) (test cqos=256) 10.6 fL 9.4-12.4 NUCLEATED RED BLOOD CELLS (BEAKER) (test 0 /100 WBC 0-0 tobv=382) NEUTROPHILS RELATIVE PERCENT (BEAKER) (test 82 % ecdg=983) LYMPHOCYTES RELATIVE PERCENT (BEAKER) (test 6 % saze=771) MONOCYTES RELATIVE PERCENT (BEAKER) (test 10 % jyxc=409) EOSINOPHILS RELATIVE PERCENT (BEAKER) (test 0 % amwi=612) BASOPHILS RELATIVE PERCENT (BEAKER) (test 0 % nerc=699) NEUTROPHILS ABSOLUTE COUNT (BEAKER) (test 5.22 K/ L 1.78-5.38 lkhk=421) LYMPHOCYTES ABSOLUTE COUNT (BEAKER) (test 0.38 K/ L 1.32-3.57 nsng=086) MONOCYTES ABSOLUTE COUNT (BEAKER) (test snjb=745) 0.65 K/ L 0.30-0.82 EOSINOPHILS ABSOLUTE COUNT (BEAKER) (test 0.01 K/ L 0.04-0.54 eioe=779) BASOPHILS ABSOLUTE COUNT (BEAKER) (test epst=909) 0.02 K/ L 0.01-0.08 IMMATURE GRANULOCYTES-RELATIVE PERCENT (BEAKER) 1 % 0-1 (test savm=1695) RAD, ABDOMEN/KUB, 1 VIEW [id number] 18:45:00Reason for exam:->ngt placementFINAL REPORT Abdomen dated [...] MDReport Verified Date/Time: 12/31/2018 18:45:20 Reading Location: [facility] Consult Reading Room MISCELLANEOUS LAB [id number] 10:33:00 Test Item Value Reference Range Comments SCAN RESULT (test sdnh=[id number]) CBC W/PLT COUNT & AUTO [id number] 09:42:00 Test Item Value Reference Range Comments WHITE BLOOD CELL COUNT (BEAKER) (test aybw=518) 21.3 K/ L 3.5-10.5 RED BLOOD CELL COUNT (BEAKER) (test okkh=047) 2.38 M/ L 4.63-6.08 HEMOGLOBIN (BEAKER) (test luim=174) 7.7 GM/DL 13.7-17.5 HEMATOCRIT (BEAKER) (test auxa=307) 24.1 % 40.1-51.0 MEAN CORPUSCULAR VOLUME (BEAKER) (test sbak=879) 101.3 fL 79.0-92.2 MEAN CORPUSCULAR HEMOGLOBIN (BEAKER) (test 32.4 pg 25.7-32.2 dpwu=525) MEAN CORPUSCULAR HEMOGLOBIN CONC (BEAKER) (test 32.0 GM/DL 32.3-36.5 jiem=883) RED CELL DISTRIBUTION WIDTH (BEAKER) (test 26.3 % 11.6-14.4 maam=968) PLATELET COUNT (BEAKER) (test aevw=736) 62 K/CU MM 150-450 MEAN PLATELET VOLUME (BEAKER) (test wbkc=424) 10.8 fL 9.4-12.4 NUCLEATED RED BLOOD CELLS (BEAKER) (test 1 /100 WBC 0-0 cvci=659) (CELLAVISION MANUAL DIFF)2018-02-07 09:42:00 Test Item Value Reference Range Comments NEUTROPHILS - REL (CELLAVISION)(BEAKER) (test 90 % esxq=8020) LYMPHOCYTES - REL (CELLAVISION)(BEAKER) (test 3 % nphb=8451) MONOCYTES - REL (CELLAVISION)(BEAKER) (test 5 % jemc=8132) METAMYELOCYTES - REL (CELLAVISION)(BEAKER) (test 1 % 0-0 lxkc=1436) BANDS - REL (CELLAVISION)(BEAKER) (test 1 % 0-10 htsf=3804) NEUTROPHILS - ABS (CELLAVISION)(BEAKER) (test 19.17 K/ul 1.78-5.38 ictx=7563) LYMPHOCYTES - ABS (CELLAVISION)(BEAKER) (test 0.64 K/ul 1.32-3.57 fqlt=3021) MONOCYTES - ABS (CELLAVISION)(BEAKER) (test 1.07 K/uL 0.30-0.82 iffw=4573) METAMYELOCYTES - ABS (CELLAVISION)(BEAKER) (test 0.21 K/uL 0.00-0.00 nekf=7711) BANDS - ABS (CELLAVISION)(BEAKER) (test 0.21 K/uL 0.00-0.80 nfox=5967) TOTAL COUNTED (BEAKER) (test ltki=3485) 100 MANUAL NRBC PER 100 CELLS (BEAKER) (test 3 /100 WBC 0-0 piov=7368) WBC MORPHOLOGY (BEAKER) (test athr=756) Normal PLT MORPHOLOGY (BEAKER) (test nmpx=532) Normal POLYCHROMATOPHILLIC RBCS(BEAKER) (test iqut=872) 2+ moderate HYPOCHROMIA (BEAKER) (test dqoo=573) 1+ few MEG CELLS (BEAKER) (test meij=155) 2+ moderate BASOPHILIC STIPPLING (BEAKER) (test rgwr=841) Present ARTIFACT (CELLAVISION)(BEAKER) (test opob=4667) Present PLATELET CONCENTRATION (CELLAVISION)(BEAKER) Decreased (test ajjr=0802) Received comment: User comments: Slide comments:HEPATIC FUNCTION [id number] 08:52:00 Test Item Value Reference Range Comments TOTAL PROTEIN (BEAKER) (test 5.0 gm/dL 6.0-8.3 Specimen slightly hemolyzed wklo=096) ALBUMIN (BEAKER) (test 1.7 g/dL 3.5-5.0 Specimen slightly hemolyzed dssk=9841) BILIRUBIN TOTAL (BEAKER) (test 14.7 mg/dL 0.2-1.2 Specimen slightly hemolyzed gatf=724) BILIRUBIN DIRECT (BEAKER) 9.5 mg/dL 0.1-0.5 Specimen slightly hemolyzed (test zhub=982) ALKALINE PHOSPHATASE (BEAKER) 240 U/L 40-150 (test ibys=472) AST (SGOT) (BEAKER) (test 220 U/L 5-34 Specimen slightly hemolyzed opqa=125) ALT (SGPT) (BEAKER) (test 178 U/L 6-55 Specimen slightly hemolyzed ybac=213) Specimen markedly ictericPOCT-GLUCOSE [id number] 08:27:00 Test Item Value Reference Range Comments POC-GLUCOSE METER (BEAKER) 157 mg/dL 70-[address] [facility] [address] [facility] (test lpju=1421) [facility] [address] BASIC METABOLIC [id number] 06:53:00 Test Item Value Reference Range Comments SODIUM (BEAKER) (test 132 meq/L 136-145 ifly=005) POTASSIUM (BEAKER) (test 3.7 meq/L 3.5-5.1 yagr=645) CHLORIDE (BEAKER) (test 104 meq/L 98-107 nbqo=788) CO2 (BEAKER) (test 24 meq/L 22-29 jmwu=311) BLOOD UREA NITROGEN 25 mg/dL 7-21 (BEAKER) (test ekto=565) CREATININE (BEAKER) (test 0.86 mg/dL 0.57-1.25 uwds=000) GLUCOSE RANDOM (BEAKER) 100 mg/dL 70-105 (test fmlu=543) CALCIUM (BEAKER) (test 7.7 mg/dL 8.4-10.2 lrfj=231) EGFR (BEAKER) (test 94 mL/min/1.73 sq m ESTIMATED GFR IS NOT rtth=0152) ACCURATE CREATININE CLEARANCE IN PREDICTING GLOMERULAR FILTRATION RATE. ESTIMATED GFR IS NOT APPLICABLE FOR DIALYSIS PATIENTS. Specimen markedly [id number] 06:34:00 Test Item Value Reference Range Comments MAGNESIUM (BEAKER) (test dstp=311) 1.4 mg/dL 1.6-2.6 PROTHROMBIN [id number] 06:32:00 Test Item Value Reference Range Comments PROTIME (BEAKER) (test epwy=111) 24.6 seconds 11.7-14.7 INR (BEAKER) (test jfuq=527) 2.2 <=5.9 RECOMMENDED COUMADIN/WARFARIN INR THERAPY RANGESSTANDARD DOSE: 2.0 - 3.0 Includes: PROPHYLAXIS forvenous thrombosis, systemic embolization; TREATMENT for venous thrombosis and/or pulmonary embolus.HIGH RISK: Target INR is 2.5-3.5 for patients with mechanical heart valves.POCT-GLUCOSE [id number] 22:37:00 Test Item Value Reference Range Comments POC-GLUCOSE METER (BEAKER) 158 mg/dL 70-110 TESTED AT [address] (test ufdd=8204) [place] [address] POCT-GLUCOSE [id number] 17:38:00 Test Item Value Reference Range Comments POC-GLUCOSE METER (BEAKER) 176 mg/dL 70-110 TESTED AT [address] (test dirw=0231) [place] [address] POCT-GLUCOSE [id number] 13:55:00 Test Item Value Reference Range Comments POC-GLUCOSE METER (BEAKER) 144 mg/dL 70-110 TESTED AT [address] (test xhtp=2602) [place] [address] RAD, CHEST, 1 VIEW, NON [id number] 11:35:00Reason for exam:->shortness of breathShould this be performed at the bedside?->YesFINAL REPORT CLINICAL HISTORY: shortness of breath TECHNIQUE: 1 view of the chest. COMPARISON: 02/03/2018 IMPRESSION: There is decreased left lung base consolidation and a decreased small left pleural effusion. The right lung is free of infiltrates or significant effusions. The cardiomediastinal silhouette is within normal limits for size. Signed: Sona Hercules MDReport Verified Date/ Time: 02/06/2018 11:35:31 Reading Location: [facility] Radiology Reading Room STOOL CULTURE + SHIGA [id number] 10:55:00 Test Item Value Reference Range Comments CULTURE (BEAKER) (test No Salmonella, Shigella or mbqk=5955) Campylobacter isolated POCT-GLUCOSE [id number] 07:40:00 Test Item Value Reference Range Comments POC-GLUCOSE METER (BEAKER) 136 mg/dL 70-110 TESTED AT [address] (test ikpk=6600) [place] [address] CBC W/PLT COUNT & AUTO [id number] 07:37:00 Test Item Value Reference Range Comments WHITE BLOOD CELL COUNT (BEAKER) (test uawf=979) 22.5 K/ L 3.5-10.5 RED BLOOD CELL COUNT (BEAKER) (test zzsp=866) 2.13 M/ L 4.63-6.08 HEMOGLOBIN (BEAKER) (test bpyi=811) 6.9 GM/DL 13.7-17.5 HEMATOCRIT (BEAKER) (test kgfy=473) 21.6 % 40.1-51.0 MEAN CORPUSCULAR VOLUME (BEAKER) (test bven=827) 101.4 fL 79.0-92.2 MEAN CORPUSCULAR HEMOGLOBIN (BEAKER) (test 32.4 pg 25.7-32.2 klra=212) MEAN CORPUSCULAR HEMOGLOBIN CONC (BEAKER) (test 31.9 GM/DL 32.3-36.5 lskc=295) RED CELL DISTRIBUTION WIDTH (BEAKER) (test 26.5 % 11.6-14.4 lvll=559) PLATELET COUNT (BEAKER) (test hmnx=898) 64 K/CU MM 150-450 MEAN PLATELET VOLUME (BEAKER) (test kwax=360) 11.6 fL 9.4-12.4 NUCLEATED RED BLOOD CELLS (BEAKER) (test 0 /100 WBC 0-0 mygv=969) (CELLAVISION MANUAL DIFF)2018-02-06 07:37:00 Test Item Value Reference Range Comments NEUTROPHILS - REL (CELLAVISION)(BEAKER) (test 88 % coxz=6963) LYMPHOCYTES - REL (CELLAVISION)(BEAKER) (test 2 % dsnw=6871) MONOCYTES - REL (CELLAVISION)(BEAKER) (test 5 % cuxr=8136) MYELOCYTES - REL (CELLAVISION)(BEAKER) (test 5 % 0-0 tskp=0650) NEUTROPHILS - ABS (CELLAVISION)(BEAKER) (test 19.80 K/ul 1.78-5.38 wycb=8903) LYMPHOCYTES - ABS (CELLAVISION)(BEAKER) (test 0.45 K/ul 1.32-3.57 onyf=8802) MONOCYTES - ABS (CELLAVISION)(BEAKER) (test 1.13 K/uL 0.30-0.82 fndy=3229) MYELOCYTES-ABS (CELLAVISION)(BEAKER) (test 1.13 K/uL 0.00-0.00 veux=5160) TOTAL COUNTED (BEAKER) (test idfv=2391) 100 SMUDGE CELLS (BEAKER) (test azmo=4428) Present GIANT PLATELETS (BEAKER) (test mngo=459) Present POLYCHROMATOPHILLIC RBCS(BEAKER) (test mgcy=376) 1+ few ANISOCYTOSIS (BEAKER) (test iqgl=585) 3+ many MACROCYTES (BEAKER) (test lyxm=456) 3+ many POIKILOCYTES (BEAKER) (test axut=138) 2+ moderate TARGET CELLS (BEAKER) (test stzx=187) 1+ few MEG CELLS (BEAKER) (test sfvu=868) 2+ moderate BASOPHILIC STIPPLING (BEAKER) (test flym=233) Present PLATELET CONCENTRATION (CELLAVISION)(BEAKER) Decreased (test kmtv=4266) Received comment: User comments: Slide comments:BLOOD [id number] 06:00:00 Test Item Value Reference Range Comments CULTURE (BEAKER) (test imta=5897) No growth in 5 days BLOOD [id number] 06:00:00 Test Item Value Reference Range Comments CULTURE (BEAKER) (test lmbc=9367) No growth in 5 days COMPREHENSIVE METABOLIC [id number] 05:01:00 Test Item Value Reference Range Comments TOTAL PROTEIN (BEAKER) 4.9 gm/dL 6.0-8.3 (test ikiz=245) ALBUMIN (BEAKER) (test 1.7 g/dL 3.5-5.0 wlux=5659) ALKALINE PHOSPHATASE 242 U/L 40-150 (BEAKER) (test yelx=667) BILIRUBIN TOTAL (BEAKER) 14.5 mg/dL 0.2-1.2 (test qeui=673) SODIUM (BEAKER) (test 134 meq/L 136-145 gsos=120) POTASSIUM (BEAKER) (test 3.7 meq/L 3.5-5.1 eirl=607) CHLORIDE (BEAKER) (test 104 meq/L 98-107 nice=101) CO2 (BEAKER) (test 24 meq/L 22-29 kbgp=746) BLOOD UREA NITROGEN 33 mg/dL 7-21 (BEAKER) (test guxn=466) CREATININE (BEAKER) (test 0.94 mg/dL 0.57-1.25 uzgd=110) GLUCOSE RANDOM (BEAKER) 125 mg/dL 70-105 (test oktz=989) CALCIUM (BEAKER) (test 7.6 mg/dL 8.4-10.2 sbfh=901) AST (SGOT) (BEAKER) (test 202 U/L 5-34 lokz=261) ALT (SGPT) (BEAKER) (test 172 U/L 6-55 icxk=778) EGFR (BEAKER) (test 85 mL/min/1.73 sq m ESTIMATED GFR IS NOT wpqa=7364) ACCURATE CREATININE CLEARANCE IN PREDICTING GLOMERULAR FILTRATION RATE. ESTIMATED GFR IS NOT APPLICABLE FOR DIALYSIS PATIENTS. Specimen markedly [id number] 04:57:00 Test Item Value Reference Range Comments PHOSPHORUS (BEAKER) (test ntvv=404) 2.4 mg/dL 2.3-4.7 [id number] 04:57:00 Test Item Value Reference Range Comments MAGNESIUM (BEAKER) (test rpvs=517) 1.4 mg/dL 1.6-2.6 CALCIUM, [id number] 04:48:00 Test Item Value Reference Range Comments CALCIUM IONIZED (BEAKER) (test yxyt=703) 1.04 mmol/L 1.12-1.27 PH, BLOOD (BEAKER) (test jymp=6436) 7.49 PROTHROMBIN [id number] 04:48:00 Test Item Value Reference Range Comments PROTIME (BEAKER) (test imql=261) 25.3 seconds 11.7-14.7 INR (BEAKER) (test qggf=826) 2.3 <=5.9 RECOMMENDED COUMADIN/WARFARIN INR THERAPY RANGESSTANDARD DOSE: 2.0 - 3.0 Includes: PROPHYLAXIS forvenous thrombosis, systemic embolization; TREATMENT for venous thrombosis and/or pulmonary embolus.HIGH RISK: Target INR is 2.5-3.5 for patients with mechanical heart valves.POCT-GLUCOSE [id number] 22:46:00 Test Item Value Reference Range Comments POC-GLUCOSE METER (BEAKER) 152 mg/dL 70-110 TESTED AT [address] (test pndj=7346) [facility] [address] POCT-GLUCOSE [id number] 18:27:00 Test Item Value Reference Range Comments POC-GLUCOSE METER (BEAKER) 159 mg/dL 70-[address] [facility] [address] [facility] (test tvph=7807) [facility] [address] STOOL PATH [id number] 16:32:00 Test Item Value Reference Range Comments PATHOGEN EXAM CHARGED (BEAKER) (test xnvz=7900) Done SHIGA TOXIN [id number] 16:08:00 Test Item Value Reference Range Comments SHIGA TOXIN 1 (BEAKER) (test mmeg=4078) Not detected Not detected SHIGA TOXIN 2 (BEAKER) (test cyja=1705) Not detected Not detected POCT-GLUCOSE [id number] 07:39:00 Test Item Value Reference Range Comments POC-GLUCOSE METER (BEAKER) 138 mg/dL 70-110 TESTED AT [place] [id number] [facility] (test atxm=7997) [facility] [address] COMPREHENSIVE METABOLIC [id number] 05:29:00 Test Item Value Reference Range Comments TOTAL PROTEIN (BEAKER) 5.2 gm/dL 6.0-8.3 (test wxbp=209) ALBUMIN (BEAKER) (test 1.7 g/dL 3.5-5.0 mkfx=1654) ALKALINE PHOSPHATASE 259 U/L 40-150 (BEAKER) (test uwqj=482) BILIRUBIN TOTAL (BEAKER) 14.2 mg/dL 0.2-1.2 (test zdvf=925) SODIUM (BEAKER) (test 135 meq/L 136-145 ujhm=398) POTASSIUM (BEAKER) (test 3.8 meq/L 3.5-5.1 bwmp=200) CHLORIDE (BEAKER) (test 105 meq/L 98-107 zpbo=069) CO2 (BEAKER) (test 25 meq/L 22-29 saol=576) BLOOD UREA NITROGEN 37 mg/dL 7-21 (BEAKER) (test qyrm=444) CREATININE (BEAKER) (test 1.10 mg/dL 0.57-1.25 reru=079) GLUCOSE RANDOM (BEAKER) 136 mg/dL 70-105 (test pmai=875) CALCIUM (BEAKER) (test 7.6 mg/dL 8.4-10.2 crka=517) AST (SGOT) (BEAKER) (test 191 U/L 5-34 nbwi=471) ALT (SGPT) (BEAKER) (test 164 U/L 6-55 kbda=776) EGFR (BEAKER) (test 71 mL/min/1.73 sq m ESTIMATED GFR IS NOT vbiy=7786) ACCURATE CREATININE CLEARANCE IN PREDICTING GLOMERULAR FILTRATION RATE. ESTIMATED GFR IS NOT APPLICABLE FOR DIALYSIS PATIENTS. Specimen markedly [id number] 05:23:00 Test Item Value Reference Range Comments PHOSPHORUS (BEAKER) (test xobk=889) 3.1 mg/dL 2.3-4.7 [id number] 05:23:00 Test Item Value Reference Range Comments MAGNESIUM (BEAKER) (test ksya=809) 1.6 mg/dL 1.6-2.6 CALCIUM, [id number] 05:13:00 Test Item Value Reference Range Comments CALCIUM IONIZED (BEAKER) (test uggv=969) 1.01 mmol/L 1.12-1.27 PH, BLOOD (BEAKER) (test qygy=8908) 7.48 CBC W/PLT COUNT & AUTO [id number] 05:10:00 Test Item Value Reference Range Comments WHITE BLOOD CELL COUNT (BEAKER) (test bflv=142) 18.0 K/ L 3.5-10.5 RED BLOOD CELL COUNT (BEAKER) (test hoaf=713) 2.31 M/ L 4.63-6.08 HEMOGLOBIN (BEAKER) (test mfoq=819) 7.4 GM/DL 13.7-17.5 HEMATOCRIT (BEAKER) (test caod=964) 23.2 % 40.1-51.0 MEAN CORPUSCULAR VOLUME (BEAKER) (test rvad=889) 100.4 fL 79.0-92.2 MEAN CORPUSCULAR HEMOGLOBIN (BEAKER) (test 32.0 pg 25.7-32.2 quvl=834) MEAN CORPUSCULAR HEMOGLOBIN CONC (BEAKER) (test 31.9 GM/DL 32.3-36.5 emqc=183) RED CELL DISTRIBUTION WIDTH (BEAKER) (test 25.3 % 11.6-14.4 vwxw=942) PLATELET COUNT (BEAKER) (test uxwi=037) 54 K/CU MM 150-450 MEAN PLATELET VOLUME (BEAKER) (test mbqm=677) 11.6 fL 9.4-12.4 NUCLEATED RED BLOOD CELLS (BEAKER) (test 0 /100 WBC 0-0 jgpn=669) NEUTROPHILS RELATIVE PERCENT (BEAKER) (test 87 % hykm=648) LYMPHOCYTES RELATIVE PERCENT (BEAKER) (test 4 % jpzc=539) MONOCYTES RELATIVE PERCENT (BEAKER) (test 6 % tnxw=569) EOSINOPHILS RELATIVE PERCENT (BEAKER) (test 0 % stxu=612) BASOPHILS RELATIVE PERCENT (BEAKER) (test 0 % sanu=545) NEUTROPHILS ABSOLUTE COUNT (BEAKER) (test 15.55 K/ L 1.78-5.38 bvav=351) LYMPHOCYTES ABSOLUTE COUNT (BEAKER) (test 0.78 K/ L 1.32-3.57 gjxf=551) MONOCYTES ABSOLUTE COUNT (BEAKER) (test tave=004) 1.07 K/ L 0.30-0.82 EOSINOPHILS ABSOLUTE COUNT (BEAKER) (test 0.00 K/ L 0.04-0.54 maym=622) BASOPHILS ABSOLUTE COUNT (BEAKER) (test mbic=184) 0.02 K/ L 0.01-0.08 IMMATURE GRANULOCYTES-RELATIVE PERCENT (BEAKER) 3 % 0-1 (test nwzt=0858) PROTHROMBIN [id number] 05:01:00 Test Item Value Reference Range Comments PROTIME (BEAKER) (test squi=789) 26.0 seconds 11.7-14.7 INR (BEAKER) (test jxze=971) 2.4 <=5.9 RECOMMENDED COUMADIN/WARFARIN INR THERAPY RANGESSTANDARD DOSE: 2.0 - 3.0 Includes: PROPHYLAXIS forvenous thrombosis, systemic embolization; TREATMENT for venous thrombosis and/or pulmonary embolus.HIGH RISK: Target INR is 2.5-3.5 for patients with mechanical heart valves.CRYPTOCOCCAL [id number] 02:15: 00 Test Item Value Reference Range Comments CRYPTOCOCCAL ANTIGEN, SERUM (BEAKER) (test Negative Negative, Interference hdom=0578) POCT-GLUCOSE [id number] 23:10:00 Test Item Value Reference Range Comments POC-GLUCOSE METER (BEAKER) 142 mg/dL 70-[address] [facility] [address] [facility] (test zaft=3352) [facility] [address] POCT-GLUCOSE [id number] 17:45:00 Test Item Value Reference Range Comments POC-GLUCOSE METER (BEAKER) 164 mg/dL 70-[address] [facility] [address] [facility] (test aajk=3214) [facility] [address] POCT-GLUCOSE [id number] 12:27:00 Test Item Value Reference Range Comments POC-GLUCOSE METER (BEAKER) 229 mg/dL 70-110 TESTED AT [place] [id number] [facility] (test pswo=5766) [facility] [address] CBC W/PLT COUNT & AUTO [id number] 12:17:00 Test Item Value Reference Range Comments WHITE BLOOD CELL COUNT (BEAKER) (test qcqu=061) 17.0 K/ L 3.5-10.5 RED BLOOD CELL COUNT (BEAKER) (test bena=946) 2.32 M/ L 4.63-6.08 HEMOGLOBIN (BEAKER) (test lagr=061) 7.5 GM/DL 13.7-17.5 HEMATOCRIT (BEAKER) (test whcm=976) 23.2 % 40.1-51.0 MEAN CORPUSCULAR VOLUME (BEAKER) (test llsl=977) 100.0 fL 79.0-92.2 MEAN CORPUSCULAR HEMOGLOBIN (BEAKER) (test 32.3 pg 25.7-32.2 pajf=426) MEAN CORPUSCULAR HEMOGLOBIN CONC (BEAKER) (test 32.3 GM/DL 32.3-36.5 bygl=049) RED CELL DISTRIBUTION WIDTH (BEAKER) (test 24.5 % 11.6-14.4 qent=229) PLATELET COUNT (BEAKER) (test pshg=490) 58 K/CU MM 150-450 MEAN PLATELET VOLUME (BEAKER) (test esio=041) 11.7 fL 9.4-12.4 NUCLEATED RED BLOOD CELLS (BEAKER) (test 0 /100 WBC 0-0 dalf=089) NEUTROPHILS RELATIVE PERCENT (BEAKER) (test 88 % ffdx=900) LYMPHOCYTES RELATIVE PERCENT (BEAKER) (test 4 % dgzr=423) MONOCYTES RELATIVE PERCENT (BEAKER) (test 6 % wgap=606) EOSINOPHILS RELATIVE PERCENT (BEAKER) (test 0 % cqww=323) BASOPHILS RELATIVE PERCENT (BEAKER) (test 0 % qvey=914) NEUTROPHILS ABSOLUTE COUNT (BEAKER) (test 14.98 K/ L 1.78-5.38 uvxt=074) LYMPHOCYTES ABSOLUTE COUNT (BEAKER) (test 0.62 K/ L 1.32-3.57 hdac=401) MONOCYTES ABSOLUTE COUNT (BEAKER) (test payy=688) 1.03 K/ L 0.30-0.82 EOSINOPHILS ABSOLUTE COUNT (BEAKER) (test 0.00 K/ L 0.04-0.54 kzie=583) BASOPHILS ABSOLUTE COUNT (BEAKER) (test dllc=036) 0.02 K/ L 0.01-0.08 IMMATURE GRANULOCYTES-RELATIVE PERCENT (BEAKER) 2 % 0-1 (test dnpj=2151) BLOOD [id number] 11:00:00 Test Item Value Reference Range Comments CULTURE (BEAKER) (test szmm=5110) No growth in 5 days BLOOD [id number] 11:00:00 Test Item Value Reference Range Comments CULTURE (BEAKER) (test aecn=0622) No growth in 5 days HEMOGLOBIN AND [id number] 08:52:00 Test Item Value Reference Range Comments HEMOGLOBIN (BEAKER) (test lstk=556) 8.3 GM/DL 13.7-17.5 HEMATOCRIT (BEAKER) (test whgf=757) 25.3 % 40.1-51.0 POCT-GLUCOSE [id number] 08:08:00 Test Item Value Reference Range Comments POC-GLUCOSE METER (BEAKER) 154 mg/dL 70-[address] [facility] [address] [facility] (test cxtf=8897) [facility] [address] HEMOGLOBIN AND [id number] 05:03:00 Test Item Value Reference Range Comments HEMOGLOBIN (BEAKER) (test clxa=203) 7.8 GM/DL 13.7-17.5 HEMATOCRIT (BEAKER) (test ibcq=160) 24.3 % 40.1-51.0 COMPREHENSIVE METABOLIC [id number] 04:24:00 Test Item Value Reference Range Comments TOTAL PROTEIN (BEAKER) 5.0 gm/dL 6.0-8.3 (test dysp=983) ALBUMIN (BEAKER) (test 1.7 g/dL 3.5-5.0 ncro=3930) ALKALINE PHOSPHATASE 254 U/L 40-150 (BEAKER) (test yzzb=542) BILIRUBIN TOTAL (BEAKER) 13.9 mg/dL 0.2-1.2 (test zngc=693) SODIUM (BEAKER) (test 136 meq/L 136-145 vasv=915) POTASSIUM (BEAKER) (test 3.7 meq/L 3.5-5.1 cvsh=655) CHLORIDE (BEAKER) (test 106 meq/L 98-107 eqbh=073) CO2 (BEAKER) (test 25 meq/L 22-29 cgft=884) BLOOD UREA NITROGEN 38 mg/dL 7-21 (BEAKER) (test sfqc=575) CREATININE (BEAKER) (test 1.17 mg/dL 0.57-1.25 styf=294) GLUCOSE RANDOM (BEAKER) 121 mg/dL 70-105 (test urjc=739) CALCIUM (BEAKER) (test 7.6 mg/dL 8.4-10.2 wukq=330) AST (SGOT) (BEAKER) (test 176 U/L 5-34 olhj=212) ALT (SGPT) (BEAKER) (test 147 U/L 6-55 gnnj=071) EGFR (BEAKER) (test 66 mL/min/1.73 sq m ESTIMATED GFR IS NOT qhyw=8476) ACCURATE CREATININE CLEARANCE IN PREDICTING GLOMERULAR FILTRATION RATE. ESTIMATED GFR IS NOT APPLICABLE FOR DIALYSIS PATIENTS. Specimen markedly [id number] 04:11:00 Test Item Value Reference Range Comments PHOSPHORUS (BEAKER) (test bywn=862) 3.3 mg/dL 2.3-4.7 [id number] 04:11:00 Test Item Value Reference Range Comments MAGNESIUM (BEAKER) (test ysyy=469) 1.8 mg/dL 1.6-2.6 CBC W/PLT COUNT & AUTO [id number] 04:00:00 Test Item Value Reference Range Comments WHITE BLOOD CELL COUNT (BEAKER) (test uydz=968) 13.0 K/ L 3.5-10.5 RED BLOOD CELL COUNT (BEAKER) (test prcg=488) 2.14 M/ L 4.63-6.08 HEMOGLOBIN (BEAKER) (test gkra=027) 6.7 GM/DL 13.7-17.5 HEMATOCRIT (BEAKER) (test cscb=399) 21.1 % 40.1-51.0 MEAN CORPUSCULAR VOLUME (BEAKER) (test scbi=960) 98.6 fL 79.0-92.2 MEAN CORPUSCULAR HEMOGLOBIN (BEAKER) (test 31.3 pg 25.7-32.2 wmfl=099) MEAN CORPUSCULAR HEMOGLOBIN CONC (BEAKER) (test 31.8 GM/DL 32.3-36.5 yjlb=295) RED CELL DISTRIBUTION WIDTH (BEAKER) (test 23.9 % 11.6-14.4 djcl=792) PLATELET COUNT (BEAKER) (test uxvv=324) 51 K/CU MM 150-450 MEAN PLATELET VOLUME (BEAKER) (test mcak=127) 11.3 fL 9.4-12.4 NUCLEATED RED BLOOD CELLS (BEAKER) (test 0 /100 WBC 0-0 bzna=820) NEUTROPHILS RELATIVE PERCENT (BEAKER) (test 88 % mhcx=404) LYMPHOCYTES RELATIVE PERCENT (BEAKER) (test 4 % bzsk=955) MONOCYTES RELATIVE PERCENT (BEAKER) (test 6 % irfj=345) EOSINOPHILS RELATIVE PERCENT (BEAKER) (test 0 % ferl=499) BASOPHILS RELATIVE PERCENT (BEAKER) (test 0 % kxvb=677) NEUTROPHILS ABSOLUTE COUNT (BEAKER) (test 11.40 K/ L 1.78-5.38 arbb=417) LYMPHOCYTES ABSOLUTE COUNT (BEAKER) (test 0.52 K/ L 1.32-3.57 znro=247) MONOCYTES ABSOLUTE COUNT (BEAKER) (test gtpe=482) 0.83 K/ L 0.30-0.82 EOSINOPHILS ABSOLUTE COUNT (BEAKER) (test 0.00 K/ L 0.04-0.54 bjsz=881) BASOPHILS ABSOLUTE COUNT (BEAKER) (test aulw=117) 0.02 K/ L 0.01-0.08 IMMATURE GRANULOCYTES-RELATIVE PERCENT (BEAKER) 2 % 0-1 (test bvpk=9368) PROTHROMBIN [id number] 03:59:00 Test Item Value Reference Range Comments PROTIME (BEAKER) (test mbbt=712) 25.8 seconds 11.7-14.7 INR (BEAKER) (test kufy=340) 2.4 <=5.9 RECOMMENDED COUMADIN/WARFARIN INR THERAPY RANGESSTANDARD DOSE: 2.0 - 3.0 Includes: PROPHYLAXIS forvenous thrombosis, systemic embolization; TREATMENT for venous thrombosis and/or pulmonary embolus.HIGH RISK: Target INR is 2.5-3.5 for patients with mechanical heart valves.CALCIUM, [id number] 03:42:00 Test Item Value Reference Range Comments CALCIUM IONIZED (BEAKER) (test zjyk=860) 1.12 mmol/L 1.12-1.27 PH, BLOOD (BEAKER) (test scrd=3079) 7.46 POCT-GLUCOSE [id number] 22:12:00 Test Item Value Reference Range Comments POC-GLUCOSE METER (BEAKER) 239 mg/dL 70-110 TESTED AT [address] (test tiwt=9555) [place] [address] POCT-GLUCOSE [id number] 17:32:00 Test Item Value Reference Range Comments POC-GLUCOSE METER (BEAKER) 146 mg/dL 70-110 TESTED AT [address] (test xifp=5733) [place] [address] BASIC METABOLIC [id number] 16:44:00 Test Item Value Reference Range Comments SODIUM (BEAKER) (test 138 meq/L 136-145 trvl=369) POTASSIUM (BEAKER) (test 3.3 meq/L 3.5-5.1 ejnt=790) CHLORIDE (BEAKER) (test 107 meq/L 98-107 tvoz=280) CO2 (BEAKER) (test 24 meq/L 22-29 lzis=936) BLOOD UREA NITROGEN 42 mg/dL 7-21 (BEAKER) (test kwda=098) CREATININE (BEAKER) (test 1.27 mg/dL 0.57-1.25 enrr=028) GLUCOSE RANDOM (BEAKER) 166 mg/dL 70-105 (test pnnn=278) CALCIUM (BEAKER) (test 8.0 mg/dL 8.4-10.2 qegy=408) EGFR (BEAKER) (test 60 mL/min/1.73 sq m ESTIMATED GFR IS NOT brno=8951) ACCURATE CREATININE CLEARANCE IN PREDICTING GLOMERULAR FILTRATION RATE. ESTIMATED GFR IS NOT APPLICABLE FOR DIALYSIS PATIENTS. Specimen markedly [id number] 16:40:00 Test Item Value Reference Range Comments MAGNESIUM (BEAKER) (test dclv=589) 2.1 mg/dL 1.6-2.6 HEMOGLOBIN AND [id number] 16:23:00 Test Item Value Reference Range Comments HEMOGLOBIN (BEAKER) (test gbbp=604) 8.0 GM/DL 13.7-17.5 HEMATOCRIT (BEAKER) (test hrzl=207) 24.5 % 40.1-51.0 POCT-GLUCOSE [id number] 12:04:00 Test Item Value Reference Range Comments POC-GLUCOSE METER (BEAKER) 284 mg/dL 70-[address] [facility] [address] [facility] (test hqal=2557) [facility] [address] POCT-GLUCOSE [id number] 07:51:00 Test Item Value Reference Range Comments POC-GLUCOSE METER (BEAKER) 166 mg/dL 70-110 TESTED AT [address] (test tnfs=5623) [facility] [address] COMPREHENSIVE METABOLIC [id number] 05:59:00 Test Item Value Reference Range Comments TOTAL PROTEIN (BEAKER) 5.1 gm/dL 6.0-8.3 (test qffo=360) ALBUMIN (BEAKER) (test 1.9 g/dL 3.5-5.0 pjcc=4581) ALKALINE PHOSPHATASE 278 U/L 40-150 (BEAKER) (test oidg=258) BILIRUBIN TOTAL (BEAKER) 15.8 mg/dL 0.2-1.2 (test hakz=996) SODIUM (BEAKER) (test 146 meq/L 136-145 liks=331) POTASSIUM (BEAKER) (test 3.9 meq/L 3.5-5.1 xkwp=675) CHLORIDE (BEAKER) (test 114 meq/L 98-107 pxsn=931) CO2 (BEAKER) (test 26 meq/L 22-29 wzrx=523) BLOOD UREA NITROGEN 39 mg/dL 7-21 (BEAKER) (test ngzz=546) CREATININE (BEAKER) (test 1.21 mg/dL 0.57-1.25 bolu=626) GLUCOSE RANDOM (BEAKER) 128 mg/dL 70-105 (test pnyj=005) CALCIUM (BEAKER) (test 8.0 mg/dL 8.4-10.2 sxna=382) AST (SGOT) (BEAKER) (test 196 U/L 5-34 tqgd=831) ALT (SGPT) (BEAKER) (test 157 U/L 6-55 zyvk=422) EGFR (BEAKER) (test 63 mL/min/1.73 sq m ESTIMATED GFR IS NOT gdzd=3539) ACCURATE CREATININE CLEARANCE IN PREDICTING GLOMERULAR FILTRATION RATE. ESTIMATED GFR IS NOT APPLICABLE FOR DIALYSIS PATIENTS. Specimen markedly [id number] 04:55:00 Test Item Value Reference Range Comments PHOSPHORUS (BEAKER) (test jsfh=517) 4.4 mg/dL 2.3-4.7 [id number] 04:55:00 Test Item Value Reference Range Comments MAGNESIUM (BEAKER) (test oubs=494) 1.5 mg/dL 1.6-2.6 RAD, CHEST, 1 VIEW, NON [id number] 04:50:00Reason for exam:->edemaShould this be performed at [...] MDReport Verified Date/Time: 2017 04:50:23 Reading Location: [address] Reading Room B-TYPE NATRIURETIC FACTOR (BNP)2018-02-03 04:24:00 Test Item Value Reference Range Comments B-TYPE NATRIURETIC PEPTIDE (BEAKER) (test 560 pg/mL 0-100 hqfy=280) CALCIUM, [id number] 04:12:00 Test Item Value Reference Range Comments CALCIUM IONIZED (BEAKER) (test krjs=106) 1.12 mmol/L 1.12-1.27 PH, BLOOD (BEAKER) (test zhnt=7807) 7.45 PROTHROMBIN [id number] 04:10:00 Test Item Value Reference Range Comments PROTIME (BEAKER) (test yevc=998) 24.8 seconds 11.7-14.7 INR (BEAKER) (test uiaj=987) 2.2 <=5.9 RECOMMENDED COUMADIN/WARFARIN INR THERAPY RANGESSTANDARD DOSE: 2.0 - 3.0 Includes: PROPHYLAXIS forvenous thrombosis, systemic embolization; TREATMENT for venous thrombosis and/or pulmonary embolus.HIGH RISK: Target INR is 2.5-3.5 for patients with mechanical heart valves.CBC W/PLT COUNT & AUTO [id number] 04:01:00 Test Item Value Reference Range Comments WHITE BLOOD CELL COUNT (BEAKER) (test qfyv=641) 11.5 K/ L 3.5-10.5 RED BLOOD CELL COUNT (BEAKER) (test vdfc=667) 2.25 M/ L 4.63-6.08 HEMOGLOBIN (BEAKER) (test qtxh=997) 7.1 GM/DL 13.7-17.5 HEMATOCRIT (BEAKER) (test gpvi=976) 22.1 % 40.1-51.0 MEAN CORPUSCULAR VOLUME (BEAKER) (test wkib=947) 98.2 fL 79.0-92.2 MEAN CORPUSCULAR HEMOGLOBIN (BEAKER) (test 31.6 pg 25.7-32.2 qtmb=526) MEAN CORPUSCULAR HEMOGLOBIN CONC (BEAKER) (test 32.1 GM/DL 32.3-36.5 wmzg=875) RED CELL DISTRIBUTION WIDTH (BEAKER) (test 23.5 % 11.6-14.4 kgje=084) PLATELET COUNT (BEAKER) (test tcah=532) 61 K/CU MM 150-450 MEAN PLATELET VOLUME (BEAKER) (test uzhf=698) 11.4 fL 9.4-12.4 NUCLEATED RED BLOOD CELLS (BEAKER) (test 1 /100 WBC 0-0 wbcd=401) NEUTROPHILS RELATIVE PERCENT (BEAKER) (test 88 % aefj=439) LYMPHOCYTES RELATIVE PERCENT (BEAKER) (test 5 % wtnn=348) MONOCYTES RELATIVE PERCENT (BEAKER) (test 6 % imro=956) EOSINOPHILS RELATIVE PERCENT (BEAKER) (test 0 % tzhv=584) BASOPHILS RELATIVE PERCENT (BEAKER) (test 0 % pbch=262) NEUTROPHILS ABSOLUTE COUNT (BEAKER) (test 10.08 K/ L 1.78-5.38 wveq=745) LYMPHOCYTES ABSOLUTE COUNT (BEAKER) (test 0.56 K/ L 1.32-3.57 mvog=510) MONOCYTES ABSOLUTE COUNT (BEAKER) (test suuy=112) 0.66 K/ L 0.30-0.82 EOSINOPHILS ABSOLUTE COUNT (BEAKER) (test 0.00 K/ L 0.04-0.54 dcow=559) BASOPHILS ABSOLUTE COUNT (BEAKER) (test cbsg=221) 0.01 K/ L 0.01-0.08 IMMATURE GRANULOCYTES-RELATIVE PERCENT (BEAKER) 2 % 0-1 (test oqgr=4296) POCT-GLUCOSE [id number] 18:11:00 Test Item Value Reference Range Comments POC-GLUCOSE METER (BEAKER) 174 mg/dL 70-[address] [facility] [address] [facility] (test kcio=1822) [facility] [address] BASIC METABOLIC [id number] 16:37:00 Test Item Value Reference Range Comments SODIUM (BEAKER) (test 146 meq/L 136-145 hwnb=772) POTASSIUM (BEAKER) (test 3.8 meq/L 3.5-5.1 zqxd=034) CHLORIDE (BEAKER) (test 115 meq/L 98-107 cvpn=172) CO2 (BEAKER) (test 25 meq/L 22-29 cser=545) BLOOD UREA NITROGEN 40 mg/dL 7-21 (BEAKER) (test drqv=999) CREATININE (BEAKER) (test 1.28 mg/dL 0.57-1.25 iaxn=118) GLUCOSE RANDOM (BEAKER) 146 mg/dL 70-105 (test zajw=634) CALCIUM (BEAKER) (test 8.0 mg/dL 8.4-10.2 jnhz=097) EGFR (BEAKER) (test 59 mL/min/1.73 sq m ESTIMATED GFR IS NOT qecf=9859) ACCURATE CREATININE CLEARANCE IN PREDICTING GLOMERULAR FILTRATION RATE. ESTIMATED GFR IS NOT APPLICABLE FOR DIALYSIS PATIENTS. Specimen markedly ictericCBC W/PLT COUNT & AUTO [id number] 15:43 :00 Test Item Value Reference Range Comments WHITE BLOOD CELL COUNT (BEAKER) (test bwce=807) 13.2 K/ L 3.5-10.5 RED BLOOD CELL COUNT (BEAKER) (test vvmh=487) 2.41 M/ L 4.63-6.08 HEMOGLOBIN (BEAKER) (test tfjr=511) 7.6 GM/DL 13.7-17.5 HEMATOCRIT (BEAKER) (test ddks=008) 23.5 % 40.1-51.0 MEAN CORPUSCULAR VOLUME (BEAKER) (test prss=268) 97.5 fL 79.0-92.2 MEAN CORPUSCULAR HEMOGLOBIN (BEAKER) (test 31.5 pg 25.7-32.2 uola=943) MEAN CORPUSCULAR HEMOGLOBIN CONC (BEAKER) (test 32.3 GM/DL 32.3-36.5 gozs=450) RED CELL DISTRIBUTION WIDTH (BEAKER) (test 23.1 % 11.6-14.4 ebdr=370) PLATELET COUNT (BEAKER) (test vhch=997) 68 K/CU MM 150-450 MEAN PLATELET VOLUME (BEAKER) (test walw=212) 11.2 fL 9.4-12.4 NUCLEATED RED BLOOD CELLS (BEAKER) (test 1 /100 WBC 0-0 cmqd=309) NEUTROPHILS RELATIVE PERCENT (BEAKER) (test 86 % qknn=543) LYMPHOCYTES RELATIVE PERCENT (BEAKER) (test 4 % jngr=778) MONOCYTES RELATIVE PERCENT (BEAKER) (test 8 % vtys=809) EOSINOPHILS RELATIVE PERCENT (BEAKER) (test 0 % ifqs=826) BASOPHILS RELATIVE PERCENT (BEAKER) (test 0 % qzkb=749) NEUTROPHILS ABSOLUTE COUNT (BEAKER) (test 11.32 K/ L 1.78-5.38 gdti=936) LYMPHOCYTES ABSOLUTE COUNT (BEAKER) (test 0.57 K/ L 1.32-3.57 gdoo=514) MONOCYTES ABSOLUTE COUNT (BEAKER) (test moup=340) 0.99 K/ L 0.30-0.82 EOSINOPHILS ABSOLUTE COUNT (BEAKER) (test 0.00 K/ L 0.04-0.54 whcf=133) BASOPHILS ABSOLUTE COUNT (BEAKER) (test nagk=061) 0.02 K/ L 0.01-0.08 IMMATURE GRANULOCYTES-RELATIVE PERCENT (BEAKER) 2 % 0-1 (test kvqs=5306) POCT-GLUCOSE [id number] 12:18:00 Test Item Value Reference Range Comments POC-GLUCOSE METER (BEAKER) 161 mg/dL 70-[address] [facility] [address] [facility] (test teih=3063) [facility] [address] BASIC METABOLIC [id number] 07:04:00 Test Item Value Reference Range Comments SODIUM (BEAKER) (test 148 meq/L 136-145 bpya=773) POTASSIUM (BEAKER) (test 3.7 meq/L 3.5-5.1 mctk=667) CHLORIDE (BEAKER) (test 116 meq/L 98-107 rcqz=876) CO2 (BEAKER) (test 27 meq/L 22-29 cycp=370) BLOOD UREA NITROGEN 45 mg/dL 7-21 (BEAKER) (test wcti=265) CREATININE (BEAKER) (test 1.41 mg/dL 0.57-1.25 jvnp=995) GLUCOSE RANDOM (BEAKER) 159 mg/dL 70-105 (test wxkn=366) CALCIUM (BEAKER) (test 7.7 mg/dL 8.4-10.2 vusw=763) EGFR (BEAKER) (test 53 mL/min/1.73 sq m ESTIMATED GFR IS NOT bozz=5012) ACCURATE CREATININE CLEARANCE IN PREDICTING GLOMERULAR FILTRATION RATE. ESTIMATED GFR IS NOT APPLICABLE FOR DIALYSIS PATIENTS. Specimen markedly [id number] 06:52:00 Test Item Value Reference Range Comments PHOSPHORUS (BEAKER) (test ilvv=806) 3.1 mg/dL 2.3-4.7 [id number] 06:52:00 Test Item Value Reference Range Comments MAGNESIUM (BEAKER) (test bqnm=316) 1.6 mg/dL 1.6-2.6 POCT-GLUCOSE [id number] 06:34:00 Test Item Value Reference Range Comments POC-GLUCOSE METER (BEAKER) 212 mg/dL 70-110 TESTED AT [address] (test qnwm=9129) [facility] [address] PROTHROMBIN [id number] 04:56:00 Test Item Value Reference Range Comments PROTIME (BEAKER) (test skwb=921) 26.2 seconds 11.7-14.7 INR (BEAKER) (test bdtj=276) 2.4 <=5.9 RECOMMENDED COUMADIN/WARFARIN INR THERAPY RANGESSTANDARD DOSE: 2.0 - 3.0 Includes: PROPHYLAXIS forvenous thrombosis, systemic embolization; TREATMENT for venous thrombosis and/or pulmonary embolus.HIGH RISK: Target INR is 2.5-3.5 for patients with mechanical heart valves.CBC W/PLT COUNT & AUTO [id number] 04:35:00 Test Item Value Reference Range Comments WHITE BLOOD CELL COUNT (BEAKER) (test xnlz=348) 11.6 K/ L 3.5-10.5 RED BLOOD CELL COUNT (BEAKER) (test pvbp=952) 2.07 M/ L 4.63-6.08 HEMOGLOBIN (BEAKER) (test bkcf=864) 6.6 GM/DL 13.7-17.5 HEMATOCRIT (BEAKER) (test mptz=429) 20.5 % 40.1-51.0 MEAN CORPUSCULAR VOLUME (BEAKER) (test gyif=982) 99.0 fL 79.0-92.2 MEAN CORPUSCULAR HEMOGLOBIN (BEAKER) (test 31.9 pg 25.7-32.2 rtwg=003) MEAN CORPUSCULAR HEMOGLOBIN CONC (BEAKER) (test 32.2 GM/DL 32.3-36.5 yuwt=931) RED CELL DISTRIBUTION WIDTH (BEAKER) (test 25.0 % 11.6-14.4 fxqd=496) PLATELET COUNT (BEAKER) (test qhsh=488) 40 K/CU MM 150-450 MEAN PLATELET VOLUME (BEAKER) (test dkug=243) 10.6 fL 9.4-12.4 NUCLEATED RED BLOOD CELLS (BEAKER) (test 1 /100 WBC 0-0 rfap=336) NEUTROPHILS RELATIVE PERCENT (BEAKER) (test 85 % kkze=632) LYMPHOCYTES RELATIVE PERCENT (BEAKER) (test 4 % aufo=101) MONOCYTES RELATIVE PERCENT (BEAKER) (test 8 % oelu=594) EOSINOPHILS RELATIVE PERCENT (BEAKER) (test 0 % duej=930) BASOPHILS RELATIVE PERCENT (BEAKER) (test 0 % nbck=554) NEUTROPHILS ABSOLUTE COUNT (BEAKER) (test 9.82 K/ L 1.78-5.38 balw=483) LYMPHOCYTES ABSOLUTE COUNT (BEAKER) (test 0.49 K/ L 1.32-3.57 vtku=667) MONOCYTES ABSOLUTE COUNT (BEAKER) (test jdjm=214) 0.90 K/ L 0.30-0.82 EOSINOPHILS ABSOLUTE COUNT (BEAKER) (test 0.01 K/ L 0.04-0.54 ynhv=122) BASOPHILS ABSOLUTE COUNT (BEAKER) (test ayev=821) 0.01 K/ L 0.01-0.08 IMMATURE GRANULOCYTES-RELATIVE PERCENT (BEAKER) 3 % 0-1 (test urnd=6247) CALCIUM, [id number] 04:20:00 Test Item Value Reference Range Comments CALCIUM IONIZED (BEAKER) (test zoxp=951) 1.11 mmol/L 1.12-1.27 PH, BLOOD (BEAKER) (test bnva=7014) 7.45 POCT-GLUCOSE [id number] 23:47:00 Test Item Value Reference Range Comments POC-GLUCOSE METER (BEAKER) 213 mg/dL 70-[address] [facility] [address] [facility] (test qzbu=4970) [facility] [address] [id number] 21:23:00 Test Item Value Reference Range Comments PHOSPHORUS (BEAKER) (test xxls=107) 3.3 mg/dL 2.3-4.7 [id number] 21:23:00 Test Item Value Reference Range Comments MAGNESIUM (BEAKER) (test zsex=964) 1.8 mg/dL 1.6-2.6 BASIC METABOLIC [id number] 21:23:00 Test Item Value Reference Range Comments SODIUM (BEAKER) (test 150 meq/L 136-145 tppp=663) POTASSIUM (BEAKER) (test 3.6 meq/L 3.5-5.1 jbww=494) CHLORIDE (BEAKER) (test 117 meq/L 98-107 iahq=008) CO2 (BEAKER) (test 27 meq/L 22-29 bijq=459) BLOOD UREA NITROGEN 46 mg/dL 7-21 (BEAKER) (test gbac=320) CREATININE (BEAKER) (test 1.44 mg/dL 0.57-1.25 irya=323) GLUCOSE RANDOM (BEAKER) 176 mg/dL 70-105 (test tera=482) CALCIUM (BEAKER) (test 7.8 mg/dL 8.4-10.2 tuwe=503) EGFR (BEAKER) (test 52 mL/min/1.73 sq m ESTIMATED GFR IS NOT ctuj=0673) ACCURATE CREATININE CLEARANCE IN PREDICTING GLOMERULAR FILTRATION RATE. ESTIMATED GFR IS NOT APPLICABLE FOR DIALYSIS PATIENTS. Specimen markedly ictericCALCIUM, [id number] 20:09:00 Test Item Value Reference Range Comments CALCIUM IONIZED (BEAKER) (test jbqx=058) 1.11 mmol/L 1.12-1.27 PH, BLOOD (BEAKER) (test cnvt=0106) 7.47 POCT-GLUCOSE [id number] 18:23:00 Test Item Value Reference Range Comments POC-GLUCOSE METER (BEAKER) 163 mg/dL 70-[address] [facility] [address] [facility] (test cwpb=5871) [facility] [address] BASIC METABOLIC [id number] 18:17:00 Test Item Value Reference Range Comments SODIUM (BEAKER) (test 150 meq/L 136-145 sxcf=699) POTASSIUM (BEAKER) (test 3.3 meq/L 3.5-5.1 ipdk=192) CHLORIDE (BEAKER) (test 117 meq/L 98-107 avnf=976) CO2 (BEAKER) (test 27 meq/L 22-29 pixd=083) BLOOD UREA NITROGEN 46 mg/dL 7-21 (BEAKER) (test ftxn=945) CREATININE (BEAKER) (test 1.53 mg/dL 0.57-1.25 xlmx=712) GLUCOSE RANDOM (BEAKER) 142 mg/dL 70-105 (test zqfe=233) CALCIUM (BEAKER) (test 7.9 mg/dL 8.4-10.2 mavn=494) EGFR (BEAKER) (test 48 mL/min/1.73 sq m ESTIMATED GFR IS NOT seaz=9574) ACCURATE CREATININE CLEARANCE IN PREDICTING GLOMERULAR FILTRATION RATE. ESTIMATED GFR IS NOT APPLICABLE FOR DIALYSIS PATIENTS. Call results [id number] markedly ictericBLOOD [id number] 18:00:00 Test Item Value Reference Range Comments CULTURE (BEAKER) (test lhqz=3199) No growth in 5 days BLOOD [id number] 18:00:00 Test Item Value Reference Range Comments CULTURE (BEAKER) (test gbxz=5621) No growth in 5 days BLOOD [id number] 18:00:00 Test Item Value Reference Range Comments CULTURE (BEAKER) (test eotj=8594) No growth in [address], [id number] 16:32:00Po contrast pleaseFINAL REPORT CT ABDOMEN AND [...] Verified Date/ Time: 02/01/2018 16:32:42 Reading Location: [address] Radiology Reading Room CORTISOL,60 [id number] 15:35:00 Test Item Value Reference Range Comments CORTISOL BASELINE NETWORKED (BEAKER) (test 13.6 mcg/dL xbrt=9042) CORTISOL 30 MINUTE NETWORKED (BEAKER) (test 16.7 mcg/dL olvw=6174) CORTISOL, 60 MINUTE (BEAKER) (test vhnl=2534) 17.7 ug/dL ACTH STIMULATION TEST INTERPRETATION GUIDELINES(Synonyms: [...] study by Lian et al (MITCHEL 2000,283( 8):7749-45), the ACTH Stimulation Test provides important prognostic [...] serum cortisollevel 60 minutes after cosyntropin administration.CORTISOL,30 [id number] 14:46:00 Test Item Value Reference Range Comments CORTISOL BASELINE NETWORKED (BEAKER) (test 13.6 mcg/dL iazo=7517) CORTISOL, 30 MINUTE (BEAKER) (test hjvv=1821) 16.7 ug/dL ACTH STIMULATION TEST INTERPRETATION GUIDELINES(Synonyms: [...] study by Lian et al (MITCHEL 2000,283( 8):5363-45), the ACTH Stimulation Test provides important prognostic [...] Draw serum cortisollevel 60 minutes after cosyntropin administration.CORTISOL,[id number] 14:05:00 Test Item Value Reference Range Comments CORTISOL, BASELINE (FRANCISCO) (test okvn=8244) 13.6 ug/dL ACTH STIMULATION TEST INTERPRETATION GUIDELINES(Synonyms: [...] study by Lian et al (MITCHEL 2000,283( 8):4300-45), the ACTH Stimulation Test provides important prognostic [...] serum cortisollevel 60 minutes after cosyntropin administration.POCT-GLUCOSE [id number] 12:04:00 Test Item Value Reference Range Comments POC-GLUCOSE METER (BEAKER) 162 mg/dL 70-[address] [facility] [address] [place] [address] (test iwko=9806) [facility] [address] CBC W/PLT COUNT & AUTO [id number] 09:35:00 Test Item Value Reference Range Comments WHITE BLOOD CELL COUNT (BEAKER) (test lfcx=463) 12.3 K/ L 3.5-10.5 RED BLOOD CELL COUNT (BEAKER) (test ztpu=980) 2.39 M/ L 4.63-6.08 HEMOGLOBIN (BEAKER) (test qsrz=480) 7.3 GM/DL 13.7-17.5 HEMATOCRIT (BEAKER) (test iuew=253) 23.2 % 40.1-51.0 MEAN CORPUSCULAR VOLUME (BEAKER) (test eemb=509) 97.1 fL 79.0-92.2 MEAN CORPUSCULAR HEMOGLOBIN (BEAKER) (test 30.5 pg 25.7-32.2 ikpu=872) MEAN CORPUSCULAR HEMOGLOBIN CONC (BEAKER) (test 31.5 GM/DL 32.3-36.5 pvoi=140) RED CELL DISTRIBUTION WIDTH (BEAKER) (test 23.9 % 11.6-14.4 oyrw=428) PLATELET COUNT (BEAKER) (test xuvb=525) 42 K/CU MM 150-450 MEAN PLATELET VOLUME (BEAKER) (test tzee=601) 10.5 fL 9.4-12.4 NUCLEATED RED BLOOD CELLS (BEAKER) (test 1 /100 WBC 0-0 dzgl=631) (CELLAVISION MANUAL DIFF)2018-02-01 09:35:00 Test Item Value Reference Range Comments NEUTROPHILS - REL (CELLAVISION)(BEAKER) (test 81 % vocd=5755) LYMPHOCYTES - REL (CELLAVISION)(BEAKER) (test 9 % ohdt=3585) MONOCYTES - REL (CELLAVISION)(BEAKER) (test 6 % ofkc=6891) EOSINOPHILS - REL (CELLAVISION)(BEAKER) (test 1 % disl=2143) BASOPHILS - REL (CELLAVISION)(BEAKER) (test 1 % hawc=2733) BANDS - REL (CELLAVISION)(BEAKER) (test 2 % 0-10 xukz=3826) NEUTROPHILS - ABS (CELLAVISION)(BEAKER) (test 9.96 K/ul 1.78-5.38 wyud=8040) LYMPHOCYTES - ABS (CELLAVISION)(BEAKER) (test 1.11 K/ul 1.32-3.57 lipb=2932) MONOCYTES - ABS (CELLAVISION)(BEAKER) (test 0.74 K/uL 0.30-0.82 ngkr=9730) EOSINOPHILS - ABS (CELLAVISION)(BEAKER) (test 0.12 K/uL 0.04-0.54 hdxo=5120) BASOPHILS - ABS (CELLAVISION)(BEAKER) (test 0.12 K/uL 0.01-0.08 sivo=0864) BANDS - ABS (CELLAVISION)(BEAKER) (test 0.25 K/uL 0.00-0.80 cxop=7545) TOTAL COUNTED (BEAKER) (test golq=1503) 100 MANUAL NRBC PER 100 CELLS (BEAKER) (test 1 /100 WBC 0-0 aoih=2219) WBC MORPHOLOGY (BEAKER) (test mghp=888) Normal PLT MORPHOLOGY (BEAKER) (test caiu=490) Normal POLYCHROMATOPHILLIC RBCS(BEAKER) (test fsjn=399) 2+ moderate ANISOCYTOSIS (BEAKER) (test pjko=571) 2+ moderate POIKILOCYTES (BEAKER) (test joii=853) 2+ moderate ARTIFACT (CELLAVISION)(BEAKER) (test npxx=1390) Present PLATELET CONCENTRATION (CELLAVISION)(BEAKER) Decreased (test dixc=2792) Received comment: User comments: Slide comments:SPUTUM CULTURE + GRAM [id number] 08:18:00 Test Item Value Reference Range Comments CULTURE (BEAKER) (test nekv=9632) See comment GRAM STAIN RESULT (BEAKER) (test 1+ WBCs hfsq=9801) GRAM STAIN RESULT (BEAKER) (test 5-10 epithelial cells glhf=648764) GRAM STAIN RESULT (BEAKER) (test <1+ gram positive rods xidu=223072) GRAM STAIN RESULT (BEAKER) (test <1+ budding yeast wefe=777160) 2+ YeastNo Normal respiratory kody [id number] 08:14:00 Test Item Value Reference Range Comments PHOSPHORUS (BEAKER) (test ayde=239) 3.0 mg/dL 2.3-4.7 [id number] 08:14:00 Test Item Value Reference Range Comments MAGNESIUM (BEAKER) (test fayp=711) 2.2 mg/dL 1.6-2.6 CALCIUM, [id number] 08:02:00 Test Item Value Reference Range Comments CALCIUM IONIZED (BEAKER) (test zkea=523) 1.09 mmol/L 1.12-1.27 PH, BLOOD (BEAKER) (test tmem=9600) 7.52 POCT-GLUCOSE [id number] 06:12:00 Test Item Value Reference Range Comments POC-GLUCOSE METER (BEAKER) 175 mg/dL 70-[address] [facility] [address] [facility] (test rlqo=3314) [facility] [address] BLOOD [id number] 06:00:00 Test Item Value Reference Range Comments CULTURE (BEAKER) (test tgwu=1632) No growth in 5 days BLOOD [id number] 06:00:00 Test Item Value Reference Range Comments CULTURE (BEAKER) (test snrl=3772) No growth in 5 days CRYPTOCOCCAL [id number] 05:09:00 Test Item Value Reference Range Comments CRYPTOCOCCAL ANTIGEN, SERUM (BEAKER) (test Negative Negative, Interference unfg=5264) COMPREHENSIVE METABOLIC [id number] 04:26:00 Test Item Value Reference Range Comments TOTAL PROTEIN (BEAKER) 5.2 gm/dL 6.0-8.3 (test oesl=119) ALBUMIN (BEAKER) (test 2.1 g/dL 3.5-5.0 brie=1802) ALKALINE PHOSPHATASE 395 U/L 40-150 (BEAKER) (test gzuz=453) BILIRUBIN TOTAL (BEAKER) 16.5 mg/dL 0.2-1.2 (test umiv=387) SODIUM (BEAKER) (test 151 meq/L 136-145 vpvp=595) POTASSIUM (BEAKER) (test 3.5 meq/L 3.5-5.1 qyhw=080) CHLORIDE (BEAKER) (test 118 meq/L 98-107 gofr=681) CO2 (BEAKER) (test 27 meq/L 22-29 bdga=283) BLOOD UREA NITROGEN 54 mg/dL 7-21 (BEAKER) (test pufe=814) CREATININE (BEAKER) (test 1.95 mg/dL 0.57-1.25 wlls=625) GLUCOSE RANDOM (BEAKER) 147 mg/dL 70-105 (test zfdr=225) CALCIUM (BEAKER) (test 7.8 mg/dL 8.4-10.2 euyx=831) AST (SGOT) (BEAKER) (test 310 U/L 5-34 cfbn=911) ALT (SGPT) (BEAKER) (test 216 U/L 6-55 eyyc=174) EGFR (BEAKER) (test 36 mL/min/1.73 sq m ESTIMATED GFR IS NOT pvie=9146) ACCURATE CREATININE CLEARANCE IN PREDICTING GLOMERULAR FILTRATION RATE. ESTIMATED GFR IS NOT APPLICABLE FOR DIALYSIS PATIENTS. Specimen markedly [id number] 04:05:00 Test Item Value Reference Range Comments PHOSPHORUS (BEAKER) (test vdze=817) 3.2 mg/dL 2.3-4.7 [id number] 04:05:00 Test Item Value Reference Range Comments MAGNESIUM (BEAKER) (test uivx=028) 1.6 mg/dL 1.6-2.6 LACTIC ACID, VENOUS, WHOLE [id number] 03:58:00 Test Item Value Reference Range Comments LACTATE BLOOD VENOUS (2) (BEAKER) (test 1.2 mmol/L 0.5-2.2 fevr=4267) Effective 09/15/2015: Units/Reference Range ChangeNew: 0.5-2.2 mmol/L Previous: 5 -20 mg/dLSpecimen markedly ictericPROTHROMBIN [id number] 03:56:00 Test Item Value Reference Range Comments PROTIME (BEAKER) (test sohz=126) 26.0 seconds 11.7-14.7 INR (BEAKER) (test xauj=757) 2.4 <=5.9 RECOMMENDED COUMADIN/WARFARIN INR THERAPY RANGESSTANDARD DOSE: 2.0 - 3.0 Includes: PROPHYLAXIS forvenous thrombosis, systemic embolization; TREATMENT for venous thrombosis and/or pulmonary embolus.HIGH RISK: Target INR is 2.5-3.5 for patients with mechanical heart valves.BLOOD GAS, [id number] 03:50:00 Test Item Value Reference Range Comments PH VENOUS (BEAKER) (test ingq=038) 7.50 7.32-7.42 PCO2 VENOUS (BEAKER) (test vscy=487) 37 mmHg 41-51 PO2 VENOUS (BEAKER) (test jyml=706) 43 mmHg 25-40 O2 SATURATION VENOUS (BEAKER) (test mght=988) 79.9 % 40.0-70.0 HCO3 VENOUS (BEAKER) (test yhpn=356) 28 mmol/L 21-29 BASE EXCESS VENOUS (BEAKER) (test uepl=647) 4.8 mmol/L -2.0-3.0 PATIENT TEMPERATURE (BEAKER) (test gnjr=9945) 38.4 C FIO2 (BEAKER) (test fsux=4126) 30.0 % POCT-GLUCOSE [id number] 00:22:00 Test Item Value Reference Range Comments POC-GLUCOSE METER (BEAKER) 155 mg/dL 70-110 TESTED AT [address] (test nvrw=5635) [facility] [address] [id number] 21:11:00 Test Item Value Reference Range Comments PHOSPHORUS (BEAKER) (test nidi=896) 2.7 mg/dL 2.3-4.7 [id number] 21:11:00 Test Item Value Reference Range Comments MAGNESIUM (BEAKER) (test rrso=824) 1.8 mg/dL 1.6-2.6 CALCIUM, [id number] 20:38:00 Test Item Value Reference Range Comments CALCIUM IONIZED (BEAKER) (test jgvv=287) 1.09 mmol/L 1.12-1.27 PH, BLOOD (BEAKER) (test mqie=3340) 7.52 CBC W/PLT COUNT & AUTO [id number] 16:21:00 Test Item Value Reference Range Comments WHITE BLOOD CELL COUNT (BEAKER) (test zitz=636) 10.5 K/ L 3.5-10.5 RED BLOOD CELL COUNT (BEAKER) (test rqkn=452) 2.41 M/ L 4.63-6.08 HEMOGLOBIN (BEAKER) (test lfxj=275) 7.6 GM/DL 13.7-17.5 HEMATOCRIT (BEAKER) (test sedp=353) 23.2 % 40.1-51.0 MEAN CORPUSCULAR VOLUME (BEAKER) (test yidj=334) 96.3 fL 79.0-92.2 MEAN CORPUSCULAR HEMOGLOBIN (BEAKER) (test 31.5 pg 25.7-32.2 bmzw=828) MEAN CORPUSCULAR HEMOGLOBIN CONC (BEAKER) (test 32.8 GM/DL 32.3-36.5 rvid=748) RED CELL DISTRIBUTION WIDTH (BEAKER) (test 22.7 % 11.6-14.4 ujbh=648) PLATELET COUNT (BEAKER) (test xbnt=351) 39 K/CU MM 150-450 MEAN PLATELET VOLUME (BEAKER) (test ezan=545) 10.1 fL 9.4-12.4 NUCLEATED RED BLOOD CELLS (BEAKER) (test 2 /100 WBC 0-0 hpfy=651) (CELLAVISION MANUAL DIFF)2018-01-31 16:21:00 Test Item Value Reference Range Comments NEUTROPHILS - REL (CELLAVISION)(BEAKER) (test 79 % jngf=6847) LYMPHOCYTES - REL (CELLAVISION)(BEAKER) (test 4 % rlyd=3772) MONOCYTES - REL (CELLAVISION)(BEAKER) (test 12 % jiqf=2518) EOSINOPHILS - REL (CELLAVISION)(BEAKER) (test 2 % dnuy=9720) METAMYELOCYTES - REL (CELLAVISION)(BEAKER) (test 1 % 0-0 knmq=3987) BANDS - REL (CELLAVISION)(BEAKER) (test ultd=0123) 1 % 0-10 NEUTROPHILS - ABS (CELLAVISION)(BEAKER) (test 8.30 K/ul 1.78-5.38 hbds=6107) LYMPHOCYTES - ABS (CELLAVISION)(BEAKER) (test 0.42 K/ul 1.32-3.57 rugc=1535) MONOCYTES - ABS (CELLAVISION)(BEAKER) (test 1.26 K/uL 0.30-0.82 uehn=2653) EOSINOPHILS - ABS (CELLAVISION)(BEAKER) (test 0.21 K/uL 0.04-0.54 owcc=0625) METAMYELOCYTES - ABS (CELLAVISION)(BEAKER) (test 0.11 K/uL 0.00-0.00 rxql=1284) BANDS - ABS (CELLAVISION)(BEAKER) (test qwqu=8669) 0.11 K/uL 0.00-0.80 TOTAL COUNTED (BEAKER) (test rzng=7467) 100 PLT MORPHOLOGY (BEAKER) (test jlaz=828) Normal SMUDGE CELLS (BEAKER) (test hhel=9958) Present PLASMACYTOID LYMPHS(BEAKER) (test chib=1205) Present POLYCHROMATOPHILLIC RBCS(BEAKER) (test dhit=342) 1+ few ANISOCYTOSIS (BEAKER) (test sdnt=421) 1+ few MACROCYTES (BEAKER) (test ioys=634) 1+ few POIKILOCYTES (BEAKER) (test crhl=652) 1+ few TARGET CELLS (BEAKER) (test knvo=377) 1+ few BASOPHILIC STIPPLING (BEAKER) (test lfqr=890) Present HELMET CELLS (CELLAVISION)(BEAKER) (test 1+ few redw=0733) PLATELET CONCENTRATION (CELLAVISION)(BEAKER) (test Decreased eozx=0025) Received comment: User comments: Slide comments:BASIC METABOLIC [id number] 16:10:00 Test Item Value Reference Range Comments SODIUM (BEAKER) (test 148 meq/L 136-145 ewnj=127) POTASSIUM (BEAKER) (test 3.6 meq/L 3.5-5.1 guca=861) CHLORIDE (BEAKER) (test 115 meq/L 98-107 jwia=313) CO2 (BEAKER) (test 25 meq/L 22-29 rlyj=413) BLOOD UREA NITROGEN 56 mg/dL 7-21 (BEAKER) (test sgkg=632) CREATININE (BEAKER) (test 2.06 mg/dL 0.57-1.25 vmaw=989) GLUCOSE RANDOM (BEAKER) 139 mg/dL 70-105 (test pvxs=595) CALCIUM (BEAKER) (test 7.8 mg/dL 8.4-10.2 dthu=301) EGFR (BEAKER) (test 34 mL/min/1.73 sq m ESTIMATED GFR IS NOT lwxk=1600) ACCURATE CREATININE CLEARANCE IN PREDICTING GLOMERULAR FILTRATION RATE. ESTIMATED GFR IS NOT APPLICABLE FOR DIALYSIS PATIENTS. Specimen markedly ictericLACTIC ACID, VENOUS, WHOLE [id number] 16:05:00 Test Item Value Reference Range Comments LACTATE BLOOD VENOUS (2) (BEAKER) (test 1.2 mmol/L 0.5-2.2 xvob=1070) Effective 09/15/2015: Units/Reference Range ChangeNew: 0.5-2.2 mmol/L Previous: 5 -20 mg/dLSpecimen markedly ictericCALCIUM, [id number] 15:53:00 Test Item Value Reference Range Comments CALCIUM IONIZED (BEAKER) (test sxgf=413) 0.83 mmol/L 1.12-1.27 PH, BLOOD (BEAKER) (test tfyq=1673) 7.52 C. DIFFICILE GDH [id number] 12:08:00 Test Item Value Reference Range Comments CDT TOXIN (test Negative Negative hlws=[id number]) CDT GDH ANTIGEN (test Negative Negative No indication of Clostridium bqfo=[id number]) difficile infection and no colonization. Discontinue enteric isolation and therapy. Testing performed by [employer] Rapid Cassette Assay. For GDH, published sensitivity of the assay is 98.7% compared to cytotoxicity testing. For Toxin AB, published sensitivity is 87.8% and specificity 99.4% compared to cytotoxicity testing.Verification of kit performance was done by the [facility] Microbiology Lab prior to clinical use.CBC W/PLT COUNT & AUTO [id number] 12:08:00 Test Item Value Reference Range Comments WHITE BLOOD CELL COUNT (BEAKER) (test ofnk=376) 10.2 K/ L 3.5-10.5 RED BLOOD CELL COUNT (BEAKER) (test zstf=096) 2.48 M/ L 4.63-6.08 HEMOGLOBIN (BEAKER) (test uita=203) 7.7 GM/DL 13.7-17.5 HEMATOCRIT (BEAKER) (test abyd=385) 23.5 % 40.1-51.0 MEAN CORPUSCULAR VOLUME (BEAKER) (test uoyt=827) 94.8 fL 79.0-92.2 MEAN CORPUSCULAR HEMOGLOBIN (BEAKER) (test 31.0 pg 25.7-32.2 tjgl=038) MEAN CORPUSCULAR HEMOGLOBIN CONC (BEAKER) (test 32.8 GM/DL 32.3-36.5 asds=327) RED CELL DISTRIBUTION WIDTH (BEAKER) (test 21.7 % 11.6-14.4 smvo=996) PLATELET COUNT (BEAKER) (test lfzq=273) 43 K/CU MM 150-450 MEAN PLATELET VOLUME (BEAKER) (test sgbb=200) 10.9 fL 9.4-12.4 NUCLEATED RED BLOOD CELLS (BEAKER) (test 3 /100 WBC 0-0 qptx=562) (CELLAVISION MANUAL DIFF)2018-01-31 12:08:00 Test Item Value Reference Range Comments NEUTROPHILS - REL (CELLAVISION)(BEAKER) (test 68 % eemn=6224) LYMPHOCYTES - REL (CELLAVISION)(BEAKER) (test 9 % wamo=6260) MONOCYTES - REL (CELLAVISION)(BEAKER) (test 16 % fhbp=1062) MYELOCYTES - REL (CELLAVISION)(BEAKER) (test 2 % 0-0 vajh=4871) BANDS - REL (CELLAVISION)(BEAKER) (test 5 % 0-10 rpop=0530) NEUTROPHILS - ABS (CELLAVISION)(BEAKER) (test 6.94 K/ul 1.78-5.38 favg=9053) LYMPHOCYTES - ABS (CELLAVISION)(BEAKER) (test 0.92 K/ul 1.32-3.57 dnux=2328) MONOCYTES - ABS (CELLAVISION)(BEAKER) (test 1.63 K/uL 0.30-0.82 jddd=5464) MYELOCYTES-ABS (CELLAVISION)(BEAKER) (test 0.20 K/uL 0.00-0.00 jvhg=0639) BANDS - ABS (CELLAVISION)(BEAKER) (test 0.51 K/uL 0.00-0.80 yneg=4101) TOTAL COUNTED (BEAKER) (test ajre=6910) 100 MANUAL NRBC PER 100 CELLS (BEAKER) (test 4 /100 WBC 0-0 wwpn=1640) WBC MORPHOLOGY (BEAKER) (test oapr=326) Normal PLT MORPHOLOGY (BEAKER) (test wnjs=074) Normal POLYCHROMATOPHILLIC RBCS(BEAKER) (test kefy=696) 1+ few TARGET CELLS (BEAKER) (test kfbm=602) 1+ few ARTIFACT (CELLAVISION)(BEAKER) (test otbz=1994) Present PLATELET CONCENTRATION (CELLAVISION)(BEAKER) Decreased (test zcmj=2585) Received comment: User comments: Slide comments:BLOOD GAS, [id number] 11: 59:00 Test Item Value Reference Range Comments PH VENOUS (BEAKER) (test ldow=732) 7.53 7.32-7.42 PCO2 VENOUS (BEAKER) (test wzut=820) 36 mmHg 41-51 PO2 VENOUS (BEAKER) (test ukxc=489) 35 mmHg 25-40 O2 SATURATION VENOUS (BEAKER) (test fesu=938) 75.9 % 40.0-70.0 HCO3 VENOUS (BEAKER) (test gnjb=718) 30 mmol/L 21-29 BASE EXCESS VENOUS (BEAKER) (test wnvn=347) 6.6 mmol/L -2.0-3.0 PATIENT TEMPERATURE (BEAKER) (test nuqh=6456) 36.7 C FIO2 (BEAKER) (test pdnu=7300) 30.0 % POCT-GLUCOSE [id number] 11:53:00 Test Item Value Reference Range Comments POC-GLUCOSE METER (BEAKER) 98 mg/dL 70-[address] [facility] [address] (test acmv=2692) [facility] [address] BASIC METABOLIC [id number] 08:49:00 Test Item Value Reference Range Comments SODIUM (BEAKER) (test 147 meq/L 136-145 dcki=931) POTASSIUM (BEAKER) (test 3.5 meq/L 3.5-5.1 pvau=096) CHLORIDE (BEAKER) (test 114 meq/L 98-107 hqad=464) CO2 (BEAKER) (test 28 meq/L 22-29 tyoq=998) BLOOD UREA NITROGEN 58 mg/dL 7-21 (BEAKER) (test jfjv=530) CREATININE (BEAKER) (test 2.29 mg/dL 0.57-1.25 pceu=816) GLUCOSE RANDOM (BEAKER) 149 mg/dL 70-105 (test byda=606) CALCIUM (BEAKER) (test 7.8 mg/dL 8.4-10.2 qeqd=878) EGFR (BEAKER) (test 30 mL/min/1.73 sq m ESTIMATED GFR IS NOT jojw=9442) ACCURATE CREATININE CLEARANCE IN PREDICTING GLOMERULAR FILTRATION RATE. ESTIMATED GFR IS NOT APPLICABLE FOR DIALYSIS PATIENTS. Specimen markedly [id number] 08:46:00 Test Item Value Reference Range Comments PHOSPHORUS (BEAKER) (test trps=976) 2.6 mg/dL 2.3-4.7 [id number] 08:46:00 Test Item Value Reference Range Comments MAGNESIUM (BEAKER) (test rkxs=584) 2.0 mg/dL 1.6-2.6 CALCIUM, [id number] 08:18:00 Test Item Value Reference Range Comments CALCIUM IONIZED (BEAKER) (test jgmv=983) 1.08 mmol/L 1.12-1.27 PH, BLOOD (BEAKER) (test kcqk=5894) 7.52 PROTHROMBIN [id number] 06:58:00 Test Item Value Reference Range Comments PROTIME (BEAKER) (test neyo=805) 29.8 seconds 11.7-14.7 INR (BEAKER) (test iqmu=109) 2.8 <=5.9 RECOMMENDED COUMADIN/WARFARIN INR THERAPY RANGESSTANDARD DOSE: 2.0 - 3.0 Includes: PROPHYLAXIS forvenous thrombosis, systemic embolization; TREATMENT for venous thrombosis and/or pulmonary embolus.HIGH RISK: Target INR is 2.5-3.5 for patients with mechanical heart valves.POCT-GLUCOSE [id number] 06:31:00 Test Item Value Reference Range Comments POC-GLUCOSE METER (BEAKER) 167 mg/dL 70-[address] [facility] [address] [facility] (test usbt=5476) [facility] [address] [id number] 04:46:00 Test Item Value Reference Range Comments PHOSPHORUS (BEAKER) (test uops=269) 2.6 mg/dL 2.3-4.7 [id number] 04:46:00 Test Item Value Reference Range Comments MAGNESIUM (BEAKER) (test rdfv=999) 1.9 mg/dL 1.6-2.6 HEPATIC FUNCTION [id number] 04:46:00 Test Item Value Reference Range Comments TOTAL PROTEIN (BEAKER) (test txtc=486) 5.3 gm/dL 6.0-8.3 ALBUMIN (BEAKER) (test nzuz=4261) 2.3 g/dL 3.5-5.0 BILIRUBIN TOTAL (BEAKER) (test aabi=679) 15.9 mg/dL 0.2-1.2 BILIRUBIN DIRECT (BEAKER) (test exdc=665) 10.5 mg/dL 0.1-0.5 ALKALINE PHOSPHATASE (BEAKER) (test vrll=121) 482 U/L 40-150 AST (SGOT) (BEAKER) (test etrp=204) 447 U/L 5-34 ALT (SGPT) (BEAKER) (test sebh=177) 307 U/L 6-55 Specimen markedly ictericCOMPREHENSIVE METABOLIC [id number] 04:46:00 Test Item Value Reference Range Comments TOTAL PROTEIN (BEAKER) 5.3 gm/dL 6.0-8.3 (test zhbh=981) ALBUMIN (BEAKER) (test 2.3 g/dL 3.5-5.0 wcnu=7676) ALKALINE PHOSPHATASE 482 U/L 40-150 (BEAKER) (test ptzd=922) BILIRUBIN TOTAL (BEAKER) 15.9 mg/dL 0.2-1.2 (test ufif=305) SODIUM (BEAKER) (test 146 meq/L 136-145 cprw=648) POTASSIUM (BEAKER) (test 3.4 meq/L 3.5-5.1 jobq=463) CHLORIDE (BEAKER) (test 111 meq/L 98-107 dotb=786) CO2 (BEAKER) (test 28 meq/L 22-29 sxvi=674) BLOOD UREA NITROGEN 59 mg/dL 7-21 (BEAKER) (test eyus=509) CREATININE (BEAKER) (test 2.48 mg/dL 0.57-1.25 arfa=996) GLUCOSE RANDOM (BEAKER) 148 mg/dL 70-105 (test hpem=024) CALCIUM (BEAKER) (test 7.9 mg/dL 8.4-10.2 sfpd=042) AST (SGOT) (BEAKER) (test 447 U/L 5-34 mafr=777) ALT (SGPT) (BEAKER) (test 307 U/L 6-55 wujh=734) EGFR (BEAKER) (test 28 mL/min/1.73 sq m ESTIMATED GFR IS NOT zjrd=2906) ACCURATE CREATININE CLEARANCE IN PREDICTING GLOMERULAR FILTRATION RATE. ESTIMATED GFR IS NOT APPLICABLE FOR DIALYSIS PATIENTS. Specimen markedly ictericVANCOMYCIN LEVEL, [id number] 04:36:00 Test Item Value Reference Range Comments VANCOMYCIN RANDOM (BEAKER) (test onxq=040) 22.4 ug/mL Reference Range: No NormalsLACTIC ACID, VENOUS, WHOLE [id number] 04:34:00 Test Item Value Reference Range Comments LACTATE BLOOD VENOUS (2) (BEAKER) (test 1.1 mmol/L 0.5-2.2 jdtj=3196) Effective 09/15/2015: Units/Reference Range ChangeNew: 0.5-2.2 mmol/L Previous: 5 -20 mg/dLSpecimen markedly ictericBLOOD GAS, [id number] 04:27:00 Test Item Value Reference Range Comments PH VENOUS (BEAKER) (test fmkd=277) 7.50 7.32-7.42 PCO2 VENOUS (BEAKER) (test isuw=987) 37 mmHg 41-51 PO2 VENOUS (BEAKER) (test tbma=721) 55 mmHg 25-40 O2 SATURATION VENOUS (BEAKER) (test zgyp=143) 90.0 % 40.0-70.0 HCO3 VENOUS (BEAKER) (test clyd=127) 28 mmol/L 21-29 BASE EXCESS VENOUS (BEAKER) (test ivfr=723) 4.8 mmol/L -2.0-3.0 PATIENT TEMPERATURE (BEAKER) (test etpb=2555) 38.0 C FIO2 (BEAKER) (test jvse=7162) 40.0 % CBC W/PLT COUNT & AUTO [id number] 02:46:00 Test Item Value Reference Range Comments WHITE BLOOD CELL COUNT (BEAKER) (test gjvl=057) 11.7 K/ L 3.5-10.5 RED BLOOD CELL COUNT (BEAKER) (test kcoe=409) 2.60 M/ L 4.63-6.08 HEMOGLOBIN (BEAKER) (test bywu=445) 8.1 GM/DL 13.7-17.5 HEMATOCRIT (BEAKER) (test edbu=371) 24.3 % 40.1-51.0 MEAN CORPUSCULAR VOLUME (BEAKER) (test bzqi=244) 93.5 fL 79.0-92.2 MEAN CORPUSCULAR HEMOGLOBIN (BEAKER) (test 31.2 pg 25.7-32.2 kvhd=352) MEAN CORPUSCULAR HEMOGLOBIN CONC (BEAKER) (test 33.3 GM/DL 32.3-36.5 qawj=536) RED CELL DISTRIBUTION WIDTH (BEAKER) (test 21.2 % 11.6-14.4 mnwm=130) PLATELET COUNT (BEAKER) (test jhku=945) 55 K/CU MM 150-450 MEAN PLATELET VOLUME (BEAKER) (test fgfm=556) 10.4 fL 9.4-12.4 NUCLEATED RED BLOOD CELLS (BEAKER) (test 5 /100 WBC 0-0 payj=030) (CELLAVISION MANUAL DIFF)[id number] 02:46:00 Test Item Value Reference Range Comments NEUTROPHILS - REL (CELLAVISION)(BEAKER) (test 54 % yffr=9482) LYMPHOCYTES - REL (CELLAVISION)(BEAKER) (test 10 % fbho=9001) MONOCYTES - REL (CELLAVISION)(BEAKER) (test 11 % vhmg=1410) METAMYELOCYTES - REL (CELLAVISION)(BEAKER) (test 3 % 0-0 sdgi=1010) MYELOCYTES - REL (CELLAVISION)(BEAKER) (test 8 % 0-0 bnot=4377) BANDS - REL (CELLAVISION)(BEAKER) (test 13 % 0-10 wwuu=1504) NEUTROPHILS - ABS (CELLAVISION)(BEAKER) (test 6.32 K/ul 1.78-5.38 eenh=8191) LYMPHOCYTES - ABS (CELLAVISION)(BEAKER) (test 1.17 K/ul 1.32-3.57 zmgd=2070) MONOCYTES - ABS (CELLAVISION)(BEAKER) (test 1.29 K/uL 0.30-0.82 rhde=5996) METAMYELOCYTES - ABS (CELLAVISION)(BEAKER) (test 0.35 K/uL 0.00-0.00 ceqa=4219) MYELOCYTES-ABS (CELLAVISION)(BEAKER) (test 0.94 K/uL 0.00-0.00 vlrf=4045) BANDS - ABS (CELLAVISION)(BEAKER) (test 1.52 K/uL 0.00-0.80 agrf=1016) TOTAL COUNTED (BEAKER) (test opre=9636) 100 MANUAL NRBC PER 100 CELLS (BEAKER) (test 4 /100 WBC 0-0 wtid=2870) SMUDGE CELLS (BEAKER) (test eiuw=5289) Present GIANT PLATELETS (BEAKER) (test ecyy=199) Present POLYCHROMATOPHILLIC RBCS(BEAKER) (test qqvd=423) 1+ few ANISOCYTOSIS (BEAKER) (test ycda=535) 2+ moderate MACROCYTES (BEAKER) (test vsdh=676) 1+ few POIKILOCYTES (BEAKER) (test qppf=846) 1+ few ARTIFACT (CELLAVISION)(BEAKER) (test wlzy=2371) Present PLATELET CONCENTRATION (CELLAVISION)(BEAKER) Decreased (test upls=1998) Received comment: User comments: Slide comments:BASIC METABOLIC [id number] 01:59:00 Test Item Value Reference Range Comments SODIUM (BEAKER) (test 144 meq/L 136-145 xtcx=455) POTASSIUM (BEAKER) (test 3.1 meq/L 3.5-5.1 yhie=039) CHLORIDE (BEAKER) (test 109 meq/L 98-107 ifwl=351) CO2 (BEAKER) (test 27 meq/L 22-29 zivl=881) BLOOD UREA NITROGEN 57 mg/dL 7-21 (BEAKER) (test mstb=103) CREATININE (BEAKER) (test 2.50 mg/dL 0.57-1.25 fjhk=318) GLUCOSE RANDOM (BEAKER) 113 mg/dL 70-105 (test ghmp=444) CALCIUM (BEAKER) (test 8.1 mg/dL 8.4-10.2 jcyy=693) EGFR (BEAKER) (test 27 mL/min/1.73 sq m ESTIMATED GFR IS NOT lasi=2574) ACCURATE CREATININE CLEARANCE IN PREDICTING GLOMERULAR FILTRATION RATE. ESTIMATED GFR IS NOT APPLICABLE FOR DIALYSIS PATIENTS. Specimen markedly ictericCALCIUM, [id number] 01:00:00 Test Item Value Reference Range Comments CALCIUM IONIZED (BEAKER) (test uuii=066) 1.08 mmol/L 1.12-1.27 PH, BLOOD (BEAKER) (test wdxt=8969) 7.52 POCT-GLUCOSE [id number] 00:56:00 Test Item Value Reference Range Comments POC-GLUCOSE METER (BEAKER) 120 mg/dL 70-[address] [facility] [address] [facility] (test txtp=8007) [facility] [address] [id number] 21:45:00 Test Item Value Reference Range Comments PHOSPHORUS (BEAKER) (test kmih=471) 2.6 mg/dL 2.3-4.7 [id number] 21:45:00 Test Item Value Reference Range Comments MAGNESIUM (BEAKER) (test kwco=541) 2.1 mg/dL 1.6-2.6 CBC W/PLT COUNT & AUTO [id number] 18:26:00 Test Item Value Reference Range Comments WHITE BLOOD CELL COUNT (BEAKER) (test zptn=438) 11.6 K/ L 3.5-10.5 RED BLOOD CELL COUNT (BEAKER) (test cfng=074) 2.50 M/ L 4.63-6.08 HEMOGLOBIN (BEAKER) (test jurm=785) 7.7 GM/DL 13.7-17.5 HEMATOCRIT (BEAKER) (test kxbr=935) 23.3 % 40.1-51.0 MEAN CORPUSCULAR VOLUME (BEAKER) (test jzgj=351) 93.2 fL 79.0-92.2 MEAN CORPUSCULAR HEMOGLOBIN (BEAKER) (test 30.8 pg 25.7-32.2 weot=093) MEAN CORPUSCULAR HEMOGLOBIN CONC (BEAKER) (test 33.0 GM/DL 32.3-36.5 pauh=221) RED CELL DISTRIBUTION WIDTH (BEAKER) (test 20.4 % 11.6-14.4 ounx=106) PLATELET COUNT (BEAKER) (test jkol=791) 49 K/CU MM 150-450 MEAN PLATELET VOLUME (BEAKER) (test scle=876) 11.2 fL 9.4-12.4 NUCLEATED RED BLOOD CELLS (BEAKER) (test 3 /100 WBC 0-0 bcms=790) (CELLAVISION MANUAL DIFF)2018-01-30 18:26:00 Test Item Value Reference Range Comments NEUTROPHILS - REL (CELLAVISION)(BEAKER) (test 72 % oodn=3271) LYMPHOCYTES - REL (CELLAVISION)(BEAKER) (test 5 % pwyy=3010) MONOCYTES - REL (CELLAVISION)(BEAKER) (test 10 % ineu=8875) METAMYELOCYTES - REL (CELLAVISION)(BEAKER) (test 3 % 0-0 ncbr=0934) MYELOCYTES - REL (CELLAVISION)(BEAKER) (test 3 % 0-0 lgip=3980) PROMYELOCYTES - REL (CELLAVSION)(BEAKER) (test 1 % 0-0 ufmn=9595) BANDS - REL (CELLAVISION)(BEAKER) (test 5 % 0-10 emyx=7559) NEUTROPHILS - ABS (CELLAVISION)(BEAKER) (test 8.35 K/ul 1.78-5.38 gfpq=4386) LYMPHOCYTES - ABS (CELLAVISION)(BEAKER) (test 0.58 K/ul 1.32-3.57 whwf=2509) MONOCYTES - ABS (CELLAVISION)(BEAKER) (test 1.16 K/uL 0.30-0.82 mmal=9869) METAMYELOCYTES - ABS (CELLAVISION)(BEAKER) (test 0.35 K/uL 0.00-0.00 sekc=1532) MYELOCYTES-ABS (CELLAVISION)(BEAKER) (test 0.35 K/uL 0.00-0.00 xtta=3006) PROMYELOCYTES - ABS (CELLAVISION)(BEAKER) (test 0.12 K/uL 0.00-0.00 gogg=2182) BANDS - ABS (CELLAVISION)(BEAKER) (test 0.58 K/uL 0.00-0.80 dtfx=7743) TOTAL COUNTED (BEAKER) (test rckt=0550) 100 MANUAL NRBC PER 100 CELLS (BEAKER) (test 3 /100 WBC 0-0 mtvd=8261) WBC MORPHOLOGY (BEAKER) (test jtob=950) Normal PLT MORPHOLOGY (BEAKER) (test jgzy=307) Normal POLYCHROMATOPHILLIC RBCS(BEAKER) (test lgal=161) 1+ few ANISOCYTOSIS (BEAKER) (test ffly=955) 1+ few MACROCYTES (BEAKER) (test zwzg=459) 1+ few ROULEAUX (BEAKER) (test cjuo=508) 1+ few SCHISTOCYTES (BEAKER) (test fpoj=628) 1+ few OVALOCYTES (BEAKER) (test jcky=283) 1+ few TEAR DROP CELLS (BEAKER) (test odgr=729) 1+ few BASOPHILIC STIPPLING (BEAKER) (test kevf=956) Present ARTIFACT (CELLAVISION)(BEAKER) (test halz=0110) Present PLATELET CONCENTRATION (CELLAVISION)(BEAKER) Decreased (test gdho=3464) Received comment: User comments: Slide comments:POCT-GLUCOSE [id number] 17: 47:00 Test Item Value Reference Range Comments POC-GLUCOSE METER (BEAKER) 186 mg/dL 70-[address] [facility] [address] [facility] (test lskh=5790) [facility] [address] BASIC METABOLIC [id number] 17:30:00 Test Item Value Reference Range Comments SODIUM (BEAKER) (test 142 meq/L 136-145 enrl=992) POTASSIUM (BEAKER) (test 3.5 meq/L 3.5-5.1 cjqz=304) CHLORIDE (BEAKER) (test 109 meq/L 98-107 nbbo=228) CO2 (BEAKER) (test 26 meq/L 22-29 wbem=956) BLOOD UREA NITROGEN 50 mg/dL 7-21 (BEAKER) (test qoac=691) CREATININE (BEAKER) (test 2.68 mg/dL 0.57-1.25 krpe=852) GLUCOSE RANDOM (BEAKER) 170 mg/dL 70-105 (test qpqq=142) CALCIUM (BEAKER) (test 8.0 mg/dL 8.4-10.2 zyzd=119) EGFR (BEAKER) (test 25 mL/min/1.73 sq m ESTIMATED GFR IS NOT iwtp=9748) ACCURATE CREATININE CLEARANCE IN PREDICTING GLOMERULAR FILTRATION RATE. ESTIMATED GFR IS NOT APPLICABLE FOR DIALYSIS PATIENTS. Specimen markedly ictericLACTIC ACID, VENOUS, WHOLE [id number] 17:26:00 Test Item Value Reference Range Comments LACTATE BLOOD VENOUS (2) 1.2 mmol/L 0.5-2.2 Specimen slightly hemolyzed (BEAKER) (test zthi=4839) Effective 09/15/2015: Units/Reference Range ChangeNew: 0.5-2.2 mmol/L Previous: 5 -20 mg/dLSpecimen markedly ictericCALCIUM, [id number] 16:37:00 Test Item Value Reference Range Comments CALCIUM IONIZED (BEAKER) (test xcuy=172) 1.08 mmol/L 1.12-1.27 PH, BLOOD (BEAKER) (test nciv=7005) 7.50 [id number] 13:56:00 Test Item Value Reference Range Comments PROCALCITONIN (BEAKER) (test isoh=4278) 2.92 ng/mL <0.05 SEPSIS RISK (ng/mL)Low: 0.05-0.50Intermediate: 0.51-2.00High: & gt;=2.01LACTIC ACID, VENOUS, WHOLE [id number] 13:42:00 Test Item Value Reference Range Comments LACTATE BLOOD VENOUS (2) (BEAKER) (test 1.2 mmol/L 0.5-2.2 gawu=8310) Effective 09/15/2015: Units/Reference Range ChangeNew: 0.5-2.2 mmol/L Previous: 5 -20 mg/dLSpecimen markedly ictericPOCT-GLUCOSE [id number] 13:32:00 Test Item Value Reference Range Comments POC-GLUCOSE METER (BEAKER) 195 mg/dL 70-[address] [facility] [address] [facility] (test hvcd=7634) [facility] [address] CBC W/PLT COUNT & AUTO [id number] 12:55:00 Test Item Value Reference Range Comments WHITE BLOOD CELL COUNT (BEAKER) (test bgmt=433) 11.3 K/ L 3.5-10.5 RED BLOOD CELL COUNT (BEAKER) (test rmfo=110) 2.48 M/ L 4.63-6.08 HEMOGLOBIN (BEAKER) (test ndrs=750) 7.7 GM/DL 13.7-17.5 HEMATOCRIT (BEAKER) (test cnfh=819) 23.2 % 40.1-51.0 MEAN CORPUSCULAR VOLUME (BEAKER) (test muzz=795) 93.5 fL 79.0-92.2 MEAN CORPUSCULAR HEMOGLOBIN (BEAKER) (test 31.0 pg 25.7-32.2 koby=900) MEAN CORPUSCULAR HEMOGLOBIN CONC (BEAKER) (test 33.2 GM/DL 32.3-36.5 akbs=768) RED CELL DISTRIBUTION WIDTH (BEAKER) (test 20.2 % 11.6-14.4 caeq=255) PLATELET COUNT (BEAKER) (test swjf=064) 50 K/CU MM 150-450 MEAN PLATELET VOLUME (BEAKER) (test lmlt=578) 10.3 fL 9.4-12.4 NUCLEATED RED BLOOD CELLS (BEAKER) (test 3 /100 WBC 0-0 lfew=246) (CELLAVISION MANUAL DIFF)2018-01-30 12:55:00 Test Item Value Reference Range Comments NEUTROPHILS - REL (CELLAVISION)(BEAKER) (test 67 % hapr=8914) LYMPHOCYTES - REL (CELLAVISION)(BEAKER) (test 8 % ssyk=6087) MONOCYTES - REL (CELLAVISION)(BEAKER) (test 16 % eihh=5492) METAMYELOCYTES - REL (CELLAVISION)(BEAKER) (test 2 % 0-0 madv=5915) MYELOCYTES - REL (CELLAVISION)(BEAKER) (test 7 % 0-0 uiqy=0579) NEUTROPHILS - ABS (CELLAVISION)(BEAKER) (test 7.57 K/ul 1.78-5.38 wvon=2059) LYMPHOCYTES - ABS (CELLAVISION)(BEAKER) (test 0.90 K/ul 1.32-3.57 pycz=3953) MONOCYTES - ABS (CELLAVISION)(BEAKER) (test 1.81 K/uL 0.30-0.82 lgao=5476) METAMYELOCYTES - ABS (CELLAVISION)(BEAKER) (test 0.23 K/uL 0.00-0.00 fbdu=0464) MYELOCYTES-ABS (CELLAVISION)(BEAKER) (test 0.79 K/uL 0.00-0.00 kvzz=5544) TOTAL COUNTED (BEAKER) (test zxlb=1904) 100 MANUAL NRBC PER 100 CELLS (BEAKER) (test 4 /100 WBC 0-0 yvvg=8991) PLT MORPHOLOGY (BEAKER) (test oiti=267) Normal SMUDGE CELLS (BEAKER) (test tttl=8310) Present POLYCHROMATOPHILLIC RBCS(BEAKER) (test kduu=726) 1+ few ANISOCYTOSIS (BEAKER) (test iwvc=459) 1+ few POIKILOCYTES (BEAKER) (test bvhg=686) 1+ few TARGET CELLS (BEAKER) (test dboo=593) 1+ few MEG CELLS (BEAKER) (test kqqb=031) 1+ few ARTIFACT (CELLAVISION)(BEAKER) (test qwyf=9151) Present PLATELET CONCENTRATION (CELLAVISION)(BEAKER) Decreased (test ljwc=7308) Received comment: User comments: Slide comments:LACTIC ACID, VENOUS, WHOLE [id number] 12:52:00 Test Item Value Reference Range Comments LACTATE BLOOD VENOUS (2) (BEAKER) (test 1.2 mmol/L 0.5-2.2 xkwo=8939) Effective 09/15/2015: Units/Reference Range ChangeNew: 0.5-2.2 mmol/L Previous: 5 -20 mg/dLSpecimen markedly ictericRAD, CHEST, 1 VIEW, NON [id number] 11:55: 00Reason for exam:->resp failureShould this be performed at the bedside?-> YesFINAL REPORT Chest one view compared to January 28, 2018 Discussion: Line/tube placement unremarkable. There is pulmonary congestion. Hazy confluent density left lung base unchanged. No gross effusion or pneumothorax. Signed: Stu Balleport Verified Date/Time: 01/30/2018 11:55:56 Reading Location: [facility] Radiology Reading Room [id number] 08:39:00 Test Item Value Reference Range Comments PHOSPHORUS (BEAKER) (test bgpu=950) 2.4 mg/dL 2.3-4.7 [id number] 08:39:00 Test Item Value Reference Range Comments MAGNESIUM (BEAKER) (test itdo=667) 2.1 mg/dL 1.6-2.6 BASIC METABOLIC [id number] 08:39:00 Test Item Value Reference Range Comments SODIUM (BEAKER) (test 140 meq/L 136-145 txsy=410) POTASSIUM (BEAKER) (test 3.7 meq/L 3.5-5.1 ttkb=056) CHLORIDE (BEAKER) (test 107 meq/L 98-107 ilke=400) CO2 (BEAKER) (test 26 meq/L 22-29 kqmw=122) BLOOD UREA NITROGEN 44 mg/dL 7-21 (BEAKER) (test zhim=142) CREATININE (BEAKER) (test 2.72 mg/dL 0.57-1.25 bcup=157) GLUCOSE RANDOM (BEAKER) 163 mg/dL 70-105 (test qlhq=509) CALCIUM (BEAKER) (test 8.1 mg/dL 8.4-10.2 ygei=543) EGFR (BEAKER) (test 25 mL/min/1.73 sq m ESTIMATED GFR IS NOT etbw=3449) ACCURATE CREATININE CLEARANCE IN PREDICTING GLOMERULAR FILTRATION RATE. ESTIMATED GFR IS NOT APPLICABLE FOR DIALYSIS PATIENTS. Specimen markedly ictericCALCIUM, [id number] 08:19:00 Test Item Value Reference Range Comments CALCIUM IONIZED (BEAKER) (test pzyr=065) 1.10 mmol/L 1.12-1.27 PH, BLOOD (BEAKER) (test icvg=2190) 7.51 CBC W/PLT COUNT & AUTO [id number] 08:05:00 Test Item Value Reference Range Comments WHITE BLOOD CELL COUNT (BEAKER) (test xakj=149) 9.6 K/ L 3.5-10.5 RED BLOOD CELL COUNT (BEAKER) (test smqv=537) 2.45 M/ L 4.63-6.08 HEMOGLOBIN (BEAKER) (test doep=381) 7.5 GM/DL 13.7-17.5 HEMATOCRIT (BEAKER) (test dffz=825) 22.8 % 40.1-51.0 MEAN CORPUSCULAR VOLUME (BEAKER) (test zzbt=764) 93.1 fL 79.0-92.2 MEAN CORPUSCULAR HEMOGLOBIN (BEAKER) (test 30.6 pg 25.7-32.2 ezsh=076) MEAN CORPUSCULAR HEMOGLOBIN CONC (BEAKER) (test 32.9 GM/DL 32.3-36.5 kipb=636) RED CELL DISTRIBUTION WIDTH (BEAKER) (test 19.4 % 11.6-14.4 nfir=154) PLATELET COUNT (BEAKER) (test qgom=822) 44 K/CU MM 150-450 MEAN PLATELET VOLUME (BEAKER) (test ccca=191) 10.1 fL 9.4-12.4 NUCLEATED RED BLOOD CELLS (BEAKER) (test 2 /100 WBC 0-0 hfsa=562) (CELLAVISION MANUAL DIFF)2018-01-30 08:05:00 Test Item Value Reference Range Comments NEUTROPHILS - REL (CELLAVISION)(BEAKER) (test 66 % arko=2627) LYMPHOCYTES - REL (CELLAVISION)(BEAKER) (test 6 % ineu=9761) MONOCYTES - REL (CELLAVISION)(BEAKER) (test 18 % pmvo=4299) METAMYELOCYTES - REL (CELLAVISION)(BEAKER) (test 2 % 0-0 gtta=9847) MYELOCYTES - REL (CELLAVISION)(BEAKER) (test 4 % 0-0 wbxd=4283) BANDS - REL (CELLAVISION)(BEAKER) (test 2 % 0-10 dgdj=2715) ATYPICAL LYMPHOCYTES - REL (CELLAVISION)(BEAKER) 2 % 0-0 (test qmto=0567) NEUTROPHILS - ABS (CELLAVISION)(BEAKER) (test 6.34 K/ul 1.78-5.38 rmpb=6865) LYMPHOCYTES - ABS (CELLAVISION)(BEAKER) (test 0.58 K/ul 1.32-3.57 xnig=8051) MONOCYTES - ABS (CELLAVISION)(BEAKER) (test 1.73 K/uL 0.30-0.82 gqke=1870) METAMYELOCYTES - ABS (CELLAVISION)(BEAKER) (test 0.19 K/uL 0.00-0.00 zyzl=0234) MYELOCYTES-ABS (CELLAVISION)(BEAKER) (test 0.38 K/uL 0.00-0.00 wvza=1437) BANDS - ABS (CELLAVISION)(BEAKER) (test 0.19 K/uL 0.00-0.80 fyyd=3448) ATYPICAL LYMPHOCYTES - ABS (CELLAVISION)(BEAKER) 0.19 K/uL 0.00-0.00 (test dbvz=5862) TOTAL COUNTED (BEAKER) (test imnn=5420) 100 MANUAL NRBC PER 100 CELLS (BEAKER) (test 1 /100 WBC 0-0 wofy=1349) SMUDGE CELLS (BEAKER) (test nsna=8390) Present GIANT PLATELETS (BEAKER) (test rhlr=006) Present ANISOCYTOSIS (BEAKER) (test lkav=816) 1+ few POIKILOCYTES (BEAKER) (test vklf=627) 1+ few ARTIFACT (CELLAVISION)(BEAKER) (test tchl=5951) Present PLATELET CONCENTRATION (CELLAVISION)(BEAKER) Decreased (test yuxg=5897) Received comment: User comments: Slide comments:POCT-GLUCOSE [id number] 07: 09:00 Test Item Value Reference Range Comments POC-GLUCOSE METER (BEAKER) 182 mg/dL 70-[address] [facility] [address] (test gala=2081) [facility] [address] URINALYSIS W/ REFLEX URINE [id number] 06:57:00 Test Item Value Reference Range Comments COLOR (BEAKER) (test isab=184) Dark Yellow CLARITY (BEAKER) (test hqsn=514) Hazy SPECIFIC GRAVITY UA (BEAKER) (test onvy=778) 1.015 1.001-1.035 PH UA (BEAKER) (test ywlv=869) 5.5 5.0-8.0 PROTEIN UA (BEAKER) (test vcar=617) 20 mg/dL Negative GLUCOSE UA (BEAKER) (test egtw=640) Negative Negative KETONES UA (BEAKER) (test aqbp=917) Negative Negative BILIRUBIN UA (BEAKER) (test yuqg=056) Positive Negative BLOOD UA (BEAKER) (test spqi=974) Large Negative NITRITE UA (BEAKER) (test sbeu=971) Negative Negative LEUKOCYTE ESTERASE UA (BEAKER) (test mkcv=958) Negative Negative UROBILINOGEN UA (BEAKER) (test nylc=946) 0.2 mg/dL 0.2-1.0 RBC UA (BEAKER) (test lpwi=704) 10 /HPF WBC UA (BEAKER) (test zqth=896) 11 /HPF MUCUS (BEAKER) (test acmh=0544) Rare SQUAMOUS EPITHELIAL (BEAKER) (test djxa=348) < /HPF CRYSTALS, URINE (BEAKER) (test xcry=9929) Occasional SOURCE(BEAKER) (test eejh=6657) [id number] 05:02:00 Test Item Value Reference Range Comments FIBRINOGEN LEVEL (BEAKER) (test oymr=024) 138 mg/dl 225-434 COMPREHENSIVE METABOLIC [id number] 05:01:00 Test Item Value Reference Range Comments TOTAL PROTEIN (BEAKER) 5.1 gm/dL 6.0-8.3 (test yyxr=642) ALBUMIN (BEAKER) (test 2.3 g/dL 3.5-5.0 vrtb=3146) ALKALINE PHOSPHATASE 504 U/L 40-150 (BEAKER) (test pavw=186) BILIRUBIN TOTAL (BEAKER) 13.5 mg/dL 0.2-1.2 (test vqwx=572) SODIUM (BEAKER) (test 138 meq/L 136-145 equd=147) POTASSIUM (BEAKER) (test 3.8 meq/L 3.5-5.1 dcdy=368) CHLORIDE (BEAKER) (test 106 meq/L 98-107 qswz=845) CO2 (BEAKER) (test 27 meq/L 22-29 cgji=360) BLOOD UREA NITROGEN 41 mg/dL 7-21 (BEAKER) (test lndi=586) CREATININE (BEAKER) (test 2.69 mg/dL 0.57-1.25 nnfv=196) GLUCOSE RANDOM (BEAKER) 163 mg/dL 70-105 (test gdli=254) CALCIUM (BEAKER) (test 8.0 mg/dL 8.4-10.2 bbgm=535) AST (SGOT) (BEAKER) (test 766 U/L 5-34 bzdg=544) ALT (SGPT) (BEAKER) (test 416 U/L 6-55 mffa=906) EGFR (BEAKER) (test 25 mL/min/1.73 sq m ESTIMATED GFR IS NOT humv=0094) ACCURATE CREATININE CLEARANCE IN PREDICTING GLOMERULAR FILTRATION RATE. ESTIMATED GFR IS NOT APPLICABLE FOR DIALYSIS PATIENTS. Specimen markedly [id number] 05:00:00 Test Item Value Reference Range Comments PHOSPHORUS (BEAKER) (test muec=794) 2.3 mg/dL 2.3-4.7 [id number] 05:00:00 Test Item Value Reference Range Comments MAGNESIUM (BEAKER) (test izkt=377) 2.1 mg/dL 1.6-2.6 HEPATIC FUNCTION [id number] 05:00:00 Test Item Value Reference Range Comments TOTAL PROTEIN (BEAKER) (test dpwk=083) 5.1 gm/dL 6.0-8.3 ALBUMIN (BEAKER) (test qarl=0841) 2.3 g/dL 3.5-5.0 BILIRUBIN TOTAL (BEAKER) (test ewbw=287) 13.5 mg/dL 0.2-1.2 BILIRUBIN DIRECT (BEAKER) (test anmy=706) 9.1 mg/dL 0.1-0.5 ALKALINE PHOSPHATASE (BEAKER) (test bfhx=079) 504 U/L 40-150 AST (SGOT) (BEAKER) (test zhwg=384) 766 U/L 5-34 ALT (SGPT) (BEAKER) (test vsqb=804) 416 U/L 6-55 Specimen markedly ictericPROTHROMBIN [id number] 04:57:00 Test Item Value Reference Range Comments PROTIME (BEAKER) (test gkvs=640) 26.5 seconds 11.7-14.7 INR (BEAKER) (test bggz=010) 2.4 <=5.9 RECOMMENDED COUMADIN/WARFARIN INR THERAPY RANGESSTANDARD DOSE: 2.0 - 3.0 Includes: PROPHYLAXIS forvenous thrombosis, systemic embolization; TREATMENT for venous thrombosis and/or pulmonary embolus.HIGH RISK: Target INR is 2.5-3.5 for patients with mechanical heart valves.LACTIC ACID, VENOUS, WHOLE [id number] 04:44:00 Test Item Value Reference Range Comments LACTATE BLOOD VENOUS (2) (BEAKER) (test 1.4 mmol/L 0.5-2.2 pzza=2973) Effective 09/15/2015: Units/Reference Range ChangeNew: 0.5-2.2 mmol/L Previous: 5 -20 mg/dLSpecimen markedly ictericCALCIUM, [id number] 01:33:00 Test Item Value Reference Range Comments CALCIUM IONIZED (BEAKER) (test zmey=333) 1.07 mmol/L 1.12-1.27 PH, BLOOD (BEAKER) (test fsys=0770) 7.47 BASIC METABOLIC [id number] 01:30:00 Test Item Value Reference Range Comments SODIUM (BEAKER) (test 138 meq/L 136-145 eqyu=614) POTASSIUM (BEAKER) (test 3.8 meq/L 3.5-5.1 zbcl=168) CHLORIDE (BEAKER) (test 105 meq/L 98-107 aedd=794) CO2 (BEAKER) (test 28 meq/L 22-29 gknq=187) BLOOD UREA NITROGEN 38 mg/dL 7-21 (BEAKER) (test kdeh=584) CREATININE (BEAKER) (test 2.56 mg/dL 0.57-1.25 wabi=720) GLUCOSE RANDOM (BEAKER) 155 mg/dL 70-105 (test xqpu=047) CALCIUM (BEAKER) (test 7.9 mg/dL 8.4-10.2 rdwm=997) EGFR (BEAKER) (test 27 mL/min/1.73 sq m ESTIMATED GFR IS NOT vjan=6886) ACCURATE CREATININE CLEARANCE IN PREDICTING GLOMERULAR FILTRATION RATE. ESTIMATED GFR IS NOT APPLICABLE FOR DIALYSIS PATIENTS. Specimen markedly [id number] 22:15:00 Test Item Value Reference Range Comments PHOSPHORUS (BEAKER) (test ttat=251) 2.1 mg/dL 2.3-4.7 [id number] 22:15:00 Test Item Value Reference Range Comments MAGNESIUM (BEAKER) (test qrvl=064) 2.0 mg/dL 1.6-2.6 [id number] 18:50:00 Test Item Value Reference Range Comments CORTISOL, TOTAL (BEAKER) (test ebrg=5354) 69.7 ug/dL 3.7-19.4 CBC W/PLT COUNT & AUTO [id number] 18:22:00 Test Item Value Reference Range Comments WHITE BLOOD CELL COUNT (BEAKER) (test tbye=267) 9.7 K/ L 3.5-10.5 RED BLOOD CELL COUNT (BEAKER) (test blbh=078) 2.52 M/ L 4.63-6.08 HEMOGLOBIN (BEAKER) (test imdz=703) 7.9 GM/DL 13.7-17.5 HEMATOCRIT (BEAKER) (test suzt=327) 23.5 % 40.1-51.0 MEAN CORPUSCULAR VOLUME (BEAKER) (test zxya=064) 93.3 fL 79.0-92.2 MEAN CORPUSCULAR HEMOGLOBIN (BEAKER) (test 31.3 pg 25.7-32.2 qdps=008) MEAN CORPUSCULAR HEMOGLOBIN CONC (BEAKER) (test 33.6 GM/DL 32.3-36.5 reay=488) RED CELL DISTRIBUTION WIDTH (BEAKER) (test 19.0 % 11.6-14.4 ecka=454) PLATELET COUNT (BEAKER) (test vykt=202) 44 K/CU MM 150-450 MEAN PLATELET VOLUME (BEAKER) (test ssgr=940) 10.7 fL 9.4-12.4 NUCLEATED RED BLOOD CELLS (BEAKER) (test 2 /100 WBC 0-0 bfaa=762) (CELLAVISION MANUAL DIFF)2018-01-29 18:22:00 Test Item Value Reference Range Comments NEUTROPHILS - REL (CELLAVISION)(BEAKER) (test 76 % mfyp=2212) LYMPHOCYTES - REL (CELLAVISION)(BEAKER) (test 5 % edic=8527) MONOCYTES - REL (CELLAVISION)(BEAKER) (test 16 % ogfb=3901) METAMYELOCYTES - REL (CELLAVISION)(BEAKER) (test 1 % 0-0 nryp=4486) MYELOCYTES - REL (CELLAVISION)(BEAKER) (test 1 % 0-0 gcpc=7923) BANDS - REL (CELLAVISION)(BEAKER) (test tfeo=5821) 1 % 0-10 NEUTROPHILS - ABS (CELLAVISION)(BEAKER) (test 7.37 K/ul 1.78-5.38 sosl=9340) LYMPHOCYTES - ABS (CELLAVISION)(BEAKER) (test 0.49 K/ul 1.32-3.57 tjzv=1869) MONOCYTES - ABS (CELLAVISION)(BEAKER) (test 1.55 K/uL 0.30-0.82 mnya=5768) METAMYELOCYTES - ABS (CELLAVISION)(BEAKER) (test 0.10 K/uL 0.00-0.00 frsg=0320) MYELOCYTES-ABS (CELLAVISION)(BEAKER) (test 0.10 K/uL 0.00-0.00 libo=6420) BANDS - ABS (CELLAVISION)(BEAKER) (test ktwy=3606) 0.10 K/uL 0.00-0.80 TOTAL COUNTED (BEAKER) (test wbhi=4791) 100 WBC MORPHOLOGY (BEAKER) (test yegf=879) Normal PLT MORPHOLOGY (BEAKER) (test pxrc=596) Normal ANISOCYTOSIS (BEAKER) (test jjvr=596) 1+ few MACROCYTES (BEAKER) (test aoel=530) 1+ few POIKILOCYTES (BEAKER) (test uizq=602) 1+ few TARGET CELLS (BEAKER) (test wuac=914) 1+ few ARTIFACT (CELLAVISION)(BEAKER) (test nhyj=8932) Present PLATELET CONCENTRATION (CELLAVISION)(BEAKER) (test Decreased fpxh=8768) Received comment: User comments: Slide comments:[id number] 18:00:00 Test Item Value Reference Range Comments SODIUM (BEAKER) (test wfci=524) 140 meq/L 136-145 BASIC METABOLIC [id number] 18:00:00 Test Item Value Reference Range Comments SODIUM (BEAKER) (test 140 meq/L 136-145 hfjg=128) POTASSIUM (BEAKER) (test 3.9 meq/L 3.5-5.1 kbns=511) CHLORIDE (BEAKER) (test 104 meq/L 98-107 njhk=098) CO2 (BEAKER) (test 27 meq/L 22-29 yvlv=778) BLOOD UREA NITROGEN 25 mg/dL 7-21 (BEAKER) (test wwbq=121) CREATININE (BEAKER) (test 2.10 mg/dL 0.57-1.25 svbc=345) GLUCOSE RANDOM (BEAKER) 113 mg/dL 70-105 (test nhww=105) CALCIUM (BEAKER) (test 8.4 mg/dL 8.4-10.2 phzl=225) EGFR (BEAKER) (test 33 mL/min/1.73 sq m ESTIMATED GFR IS NOT jlfw=6781) ACCURATE CREATININE CLEARANCE IN PREDICTING GLOMERULAR FILTRATION RATE. ESTIMATED GFR IS NOT APPLICABLE FOR DIALYSIS PATIENTS. Specimen markedly ictericBLOOD [id number] 18:00:00 Test Item Value Reference Range Comments CULTURE (BEAKER) (test ohce=2155) No growth in 5 days BLOOD [id number] 18:00:00 Test Item Value Reference Range Comments CULTURE (BEAKER) (test ckug=6588) No growth in 5 days LACTIC ACID, ARTERIAL, WHOLE [id number] 17:58:00 Test Item Value Reference Range Comments LACTATE BLOOD ARTERIAL (2) (BEAKER) (test 1.1 mmol/L 0.5-2.2 uhml=4107) Effective 09/15/2015: Units/Reference Range ChangeNew: 0.5-2.2 mmol/L Previous: 5 -20 mg/dLSpecimen markedly [id number] 17:34:00 Test Item Value Reference Range Comments FIBRINOGEN LEVEL (BEAKER) (test tthi=116) 164 mg/dl 225-434 PROTHROMBIN [id number] 17:33:00 Test Item Value Reference Range Comments PROTIME (BEAKER) (test bnhc=247) 25.0 seconds 11.7-14.7 INR (BEAKER) (test eaxi=511) 2.3 <=5.9 RECOMMENDED COUMADIN/WARFARIN INR THERAPY RANGESSTANDARD DOSE: 2.0 - 3.0 Includes: PROPHYLAXIS forvenous thrombosis, systemic embolization; TREATMENT for venous thrombosis and/or pulmonary embolus.HIGH RISK: Target INR is 2.5-3.5 for patients with mechanical heart valves.POCT-GLUCOSE [id number] 17:24:00 Test Item Value Reference Range Comments POC-GLUCOSE METER (BEAKER) 151 mg/dL 70-[address] [facility] [address] [place] [address] (test jvqr=4730) [facility] [address] CALCIUM, [id number] 16:23:00 Test Item Value Reference Range Comments CALCIUM IONIZED (BEAKER) (test lqli=216) 1.11 mmol/L 1.12-1.27 PH, BLOOD (BEAKER) (test tejd=1980) 7.51 POCT-GLUCOSE [id number] 11:48:00 Test Item Value Reference Range Comments POC-GLUCOSE METER (BEAKER) 187 mg/dL 70-110 TESTED AT [address] (test pxtu=1804) [facility] [address] BASIC METABOLIC [id number] 09:54:00 Test Item Value Reference Range Comments SODIUM (BEAKER) (test 138 meq/L 136-145 alst=354) POTASSIUM (BEAKER) (test 3.9 meq/L 3.5-5.1 aavp=231) CHLORIDE (BEAKER) (test 105 meq/L 98-107 kcwu=690) CO2 (BEAKER) (test 27 meq/L 22-29 icjc=112) BLOOD UREA NITROGEN 24 mg/dL 7-21 (BEAKER) (test wpat=623) CREATININE (BEAKER) (test 2.44 mg/dL 0.57-1.25 xfij=993) GLUCOSE RANDOM (BEAKER) 150 mg/dL 70-105 (test szdc=108) CALCIUM (BEAKER) (test 8.1 mg/dL 8.4-10.2 ontd=932) EGFR (BEAKER) (test 28 mL/min/1.73 sq m ESTIMATED GFR IS NOT gkiy=5176) ACCURATE CREATININE CLEARANCE IN PREDICTING GLOMERULAR FILTRATION RATE. ESTIMATED GFR IS NOT APPLICABLE FOR DIALYSIS PATIENTS. Specimen markedly [id number] 09:43:00 Test Item Value Reference Range Comments PHOSPHORUS (BEAKER) (test upta=471) 1.8 mg/dL 2.3-4.7 [id number] 09:43:00 Test Item Value Reference Range Comments MAGNESIUM (BEAKER) (test kxdv=569) 2.0 mg/dL 1.6-2.6 PH, [id number] 08:21:00 Test Item Value Reference Range Comments PH ARTERIAL (BEAKER) (test jnuz=817) 7.47 7.35-7.45 CALCIUM, [id number] 08:20:00 Test Item Value Reference Range Comments CALCIUM IONIZED (BEAKER) (test magr=782) 1.13 mmol/L 1.12-1.27 PH, BLOOD (BEAKER) (test veaw=7047) 7.47 HEPATITIS A ANTIBODY, [id number] 07:09:00 Test Item Value Reference Range Comments HEPATITIS A IGG ANTIBODY (BEAKER) (test ousu=2241) Reactive Nonreactive CBC W/PLT COUNT & AUTO [id number] 06:58:00 Test Item Value Reference Range Comments WHITE BLOOD CELL COUNT (BEAKER) (test wmls=111) 7.9 K/ L 3.5-10.5 RED BLOOD CELL COUNT (BEAKER) (test woqr=756) 2.66 M/ L 4.63-6.08 HEMOGLOBIN (BEAKER) (test qawv=287) 8.1 GM/DL 13.7-17.5 HEMATOCRIT (BEAKER) (test xzei=923) 24.7 % 40.1-51.0 MEAN CORPUSCULAR VOLUME (BEAKER) (test mzij=838) 92.9 fL 79.0-92.2 MEAN CORPUSCULAR HEMOGLOBIN (BEAKER) (test 30.5 pg 25.7-32.2 nbhm=285) MEAN CORPUSCULAR HEMOGLOBIN CONC (BEAKER) (test 32.8 GM/DL 32.3-36.5 lyhl=133) RED CELL DISTRIBUTION WIDTH (BEAKER) (test 18.7 % 11.6-14.4 spin=455) PLATELET COUNT (BEAKER) (test kitr=973) 51 K/CU MM 150-450 MEAN PLATELET VOLUME (BEAKER) (test xiwb=069) 10.6 fL 9.4-12.4 NUCLEATED RED BLOOD CELLS (BEAKER) (test 1 /100 WBC 0-0 bymv=781) (CELLAVISION MANUAL DIFF)2018-01-29 06:58:00 Test Item Value Reference Range Comments NEUTROPHILS - REL (CELLAVISION)(BEAKER) (test 82 % xlnj=8586) LYMPHOCYTES - REL (CELLAVISION)(BEAKER) (test 4 % hvfy=7583) MONOCYTES - REL (CELLAVISION)(BEAKER) (test 9 % hrbi=6985) MYELOCYTES - REL (CELLAVISION)(BEAKER) (test 4 % 0-0 zitu=3575) BANDS - REL (CELLAVISION)(BEAKER) (test 1 % 0-10 irik=8719) NEUTROPHILS - ABS (CELLAVISION)(BEAKER) (test 6.48 K/ul 1.78-5.38 gqcj=6036) LYMPHOCYTES - ABS (CELLAVISION)(BEAKER) (test 0.32 K/ul 1.32-3.57 kapa=1469) MONOCYTES - ABS (CELLAVISION)(BEAKER) (test 0.71 K/uL 0.30-0.82 dgaf=7031) MYELOCYTES-ABS (CELLAVISION)(BEAKER) (test 0.32 K/uL 0.00-0.00 nnph=6876) BANDS - ABS (CELLAVISION)(BEAKER) (test 0.08 K/uL 0.00-0.80 azux=4416) TOTAL COUNTED (BEAKER) (test dadi=6566) 100 MANUAL NRBC PER 100 CELLS (BEAKER) (test 1 /100 WBC 0-0 ivqv=8465) WBC MORPHOLOGY (BEAKER) (test sisb=872) Normal PLT MORPHOLOGY (BEAKER) (test mwlf=686) Normal ANISOCYTOSIS (BEAKER) (test dcou=474) 1+ few ARTIFACT (CELLAVISION)(BEAKER) (test fvdj=5556) Present PLATELET CONCENTRATION (CELLAVISION)(BEAKER) Decreased (test othf=5047) Received comment: User comments: Slide comments:POCT-GLUCOSE [id number] 06: 55:00 Test Item Value Reference Range Comments POC-GLUCOSE METER (BEAKER) 174 mg/dL 70-[address] [facility] [address] [facility] (test xgux=6262) [place] [address] [id number] 04:44:00 Test Item Value Reference Range Comments FIBRINOGEN LEVEL (BEAKER) (test akrw=019) 150 mg/dl 225-434 HEPATITIS B SURFACE [id number] 04:34:00 Test Item Value Reference Range Comments HEPATITIS B SURFACE ANTIGEN (2) (BEAKER) (test Nonreactive Nonreactive qaof=4811) HEPATITIS B SURFACE [id number] 04:34:00 Test Item Value Reference Range Comments HEPATITIS B SURFACE ANTIBODY (BEAKER) (test 53.2 mIU/mL <8.0 wlch=379) HEPATITIS C [id number] 04:34:00 Test Item Value Reference Range Comments HEPATITIS C ANTIBODY (BEAKER) (test bhuz=890) Nonreactive Nonreactive HEPATITIS B CORE ANTIBODY, [id number] 04:34:00 Test Item Value Reference Range Comments HEPATITIS B CORE TOTAL ANTIBODY (BEAKER) (test Nonreactive Nonreactive ivlt=999) HEPATIC FUNCTION [id number] 04:27:00 Test Item Value Reference Range Comments TOTAL PROTEIN (BEAKER) (test qnfr=171) 5.4 gm/dL 6.0-8.3 ALBUMIN (BEAKER) (test kroh=8762) 2.5 g/dL 3.5-5.0 BILIRUBIN TOTAL (BEAKER) (test fljk=277) 12.0 mg/dL 0.2-1.2 BILIRUBIN DIRECT (BEAKER) (test mrli=660) 8.1 mg/dL 0.1-0.5 ALKALINE PHOSPHATASE (BEAKER) (test dveb=506) 575 U/L 40-150 AST (SGOT) (BEAKER) (test zzhu=876) 1671 U/L 5-34 ALT (SGPT) (BEAKER) (test amrh=063) 663 U/L 6-55 Specimen markedly ictericPROTHROMBIN [id number] 04:16:00 Test Item Value Reference Range Comments PROTIME (BEAKER) (test vzsw=873) 26.2 seconds 11.7-14.7 INR (BEAKER) (test dudk=901) 2.4 <=5.9 RECOMMENDED COUMADIN/WARFARIN INR THERAPY RANGESSTANDARD DOSE: 2.0 - 3.0 Includes: PROPHYLAXIS forvenous thrombosis, systemic embolization; TREATMENT for venous thrombosis and/or pulmonary embolus.HIGH RISK: Target INR is 2.5-3.5 for patients with mechanical heart valves.LACTIC ACID, ARTERIAL, WHOLE [id number] 04:12:00 Test Item Value Reference Range Comments LACTATE BLOOD ARTERIAL (2) (BEAKER) (test 1.5 mmol/L 0.5-2.2 frjg=9191) Effective 09/15/2015: Units/Reference Range ChangeNew: 0.5-2.2 mmol/L Previous: 5 -20 mg/dLSpecimen markedly ictericPOCT-GLUCOSE [id number] 00:26:00 Test Item Value Reference Range Comments POC-GLUCOSE METER (BEAKER) 186 mg/dL 70-110 TESTED AT [address] (test ahqa=6206) [facility] [address] CALCIUM, [id number] 00:26:00 Test Item Value Reference Range Comments CALCIUM IONIZED (BEAKER) (test fmwz=552) 1.15 mmol/L 1.12-1.27 PH, BLOOD (BEAKER) (test lldu=8369) 7.45 BASIC METABOLIC [id number] 23:58:00 Test Item Value Reference Range Comments SODIUM (BEAKER) (test 134 meq/L 136-145 wktz=484) POTASSIUM (BEAKER) (test 3.8 meq/L 3.5-5.1 jivn=529) CHLORIDE (BEAKER) (test 103 meq/L 98-107 ilod=688) CO2 (BEAKER) (test 27 meq/L 22-29 hygc=757) BLOOD UREA NITROGEN 23 mg/dL 7-21 (BEAKER) (test gbur=599) CREATININE (BEAKER) (test 2.61 mg/dL 0.57-1.25 obnp=955) GLUCOSE RANDOM (BEAKER) 151 mg/dL 70-105 (test tqsd=417) CALCIUM (BEAKER) (test 8.2 mg/dL 8.4-10.2 kpux=412) EGFR (BEAKER) (test 26 mL/min/1.73 sq m ESTIMATED GFR IS NOT ornj=0745) ACCURATE CREATININE CLEARANCE IN PREDICTING GLOMERULAR FILTRATION RATE. ESTIMATED GFR IS NOT APPLICABLE FOR DIALYSIS PATIENTS. Specimen markedly [id number] 20:08:00 Test Item Value Reference Range Comments PHOSPHORUS (BEAKER) (test dxpu=202) 2.2 mg/dL 2.3-4.7 [id number] 20:08:00 Test Item Value Reference Range Comments MAGNESIUM (BEAKER) (test jlvy=230) 1.9 mg/dL 1.6-2.6 PH, [id number] 19:51:00 Test Item Value Reference Range Comments PH ARTERIAL (BEAKER) (test iiiz=198) 7.50 7.35-7.45 RAD, CHEST, 1 VIEW, NON [id number] 18:00:00Reason for exam:->post left central line placement [...] SVC. No other significant change. Signed: Angelique Mcghee MDReport Verified Date/Time: 01/28/2018 18:00:47 Reading Location: [facility] C0[facility] Consult Reading Room POCT-GLUCOSE [id number] 17:58:00 Test Item Value Reference Range Comments POC-GLUCOSE METER (BEAKER) 161 mg/dL 70-[address] [facility] [address] [place] [address] (test tuap=8857) [facility] [address] BASIC METABOLIC [id number] 16:30:00 Test Item Value Reference Range Comments SODIUM (BEAKER) (test 136 meq/L 136-145 xwlb=374) POTASSIUM (BEAKER) (test 4.1 meq/L 3.5-5.1 flby=248) CHLORIDE (BEAKER) (test 105 meq/L 98-107 kgnh=134) CO2 (BEAKER) (test 26 meq/L 22-29 bdlp=818) BLOOD UREA NITROGEN 23 mg/dL 7-21 (BEAKER) (test hehj=424) CREATININE (BEAKER) (test 3.01 mg/dL 0.57-1.25 sues=813) GLUCOSE RANDOM (BEAKER) 136 mg/dL 70-105 (test dxax=459) CALCIUM (BEAKER) (test 8.3 mg/dL 8.4-10.2 ywne=785) EGFR (BEAKER) (test 22 mL/min/1.73 sq m ESTIMATED GFR IS NOT butm=0612) ACCURATE CREATININE CLEARANCE IN PREDICTING GLOMERULAR FILTRATION RATE. ESTIMATED GFR IS NOT APPLICABLE FOR DIALYSIS PATIENTS. Specimen markedly ictericPROTHROMBIN [id number] 16:25:00 Test Item Value Reference Range Comments PROTIME (BEAKER) (test qeak=250) 28.4 seconds 11.7-14.7 INR (BEAKER) (test ddvp=421) 2.7 <=5.9 RECOMMENDED COUMADIN/WARFARIN INR THERAPY RANGESSTANDARD DOSE: 2.0 - 3.0 Includes: PROPHYLAXIS forvenous thrombosis, systemic embolization; TREATMENT for venous thrombosis and/or pulmonary embolus.HIGH RISK: Target INR is 2.5-3.5 for patients with mechanical heart valves.[id number] 16:25:00 Test Item Value Reference Range Comments FIBRINOGEN LEVEL (BEAKER) (test fylc=976) 165 mg/dl 225-434 LACTIC ACID, ARTERIAL, WHOLE [id number] 16:24:00 Test Item Value Reference Range Comments LACTATE BLOOD ARTERIAL (2) 1.4 mmol/L 0.5-2.2 Specimen slightly hemolyzed (BEAKER) (test reav=3110) Effective 09/15/2015: Units/Reference Range ChangeNew: 0.5-2.2 mmol/L Previous: 5 -20 mg/dLSpecimen moderately ictericCBC W/PLT COUNT & AUTO [id number] 16:11:00 Test Item Value Reference Range Comments WHITE BLOOD CELL COUNT (BEAKER) (test xjxl=033) 4.9 K/ L 3.5-10.5 RED BLOOD CELL COUNT (BEAKER) (test lluv=202) 2.69 M/ L 4.63-6.08 HEMOGLOBIN (BEAKER) (test mzzc=284) 8.2 GM/DL 13.7-17.5 HEMATOCRIT (BEAKER) (test fqye=255) 25.3 % 40.1-51.0 MEAN CORPUSCULAR VOLUME (BEAKER) (test ejxt=633) 94.1 fL 79.0-92.2 MEAN CORPUSCULAR HEMOGLOBIN (BEAKER) (test 30.5 pg 25.7-32.2 myxv=120) MEAN CORPUSCULAR HEMOGLOBIN CONC (BEAKER) (test 32.4 GM/DL 32.3-36.5 ceqt=469) RED CELL DISTRIBUTION WIDTH (BEAKER) (test 18.6 % 11.6-14.4 qtag=622) PLATELET COUNT (BEAKER) (test ughk=364) 31 K/CU MM 150-450 MEAN PLATELET VOLUME (BEAKER) (test tvjq=327) 10.0 fL 9.4-12.4 NUCLEATED RED BLOOD CELLS (BEAKER) (test 3 /100 WBC 0-0 coln=280) NEUTROPHILS RELATIVE PERCENT (BEAKER) (test 78 % hqzg=949) LYMPHOCYTES RELATIVE PERCENT (BEAKER) (test 6 % puby=741) MONOCYTES RELATIVE PERCENT (BEAKER) (test 13 % flmh=397) EOSINOPHILS RELATIVE PERCENT (BEAKER) (test 0 % jxkp=212) BASOPHILS RELATIVE PERCENT (BEAKER) (test 0 % kbws=311) NEUTROPHILS ABSOLUTE COUNT (BEAKER) (test 3.77 K/ L 1.78-5.38 gvah=973) LYMPHOCYTES ABSOLUTE COUNT (BEAKER) (test 0.28 K/ L 1.32-3.57 clqm=025) MONOCYTES ABSOLUTE COUNT (BEAKER) (test tbrk=514) 0.63 K/ L 0.30-0.82 EOSINOPHILS ABSOLUTE COUNT (BEAKER) (test 0.00 K/ L 0.04-0.54 qpsn=321) BASOPHILS ABSOLUTE COUNT (BEAKER) (test crce=276) 0.01 K/ L 0.01-0.08 IMMATURE GRANULOCYTES-RELATIVE PERCENT (BEAKER) 3 % 0-1 (test pabj=4605) CALCIUM, [id number] 15:58:00 Test Item Value Reference Range Comments CALCIUM IONIZED (BEAKER) (test hcij=895) 1.13 mmol/L 1.12-1.27 PH, BLOOD (BEAKER) (test cyrk=7274) 7.49 RAD, CHEST, 1 VIEW, NON [id number] 14:56:00Reason for exam:->s/p central lineFINAL REPORT Chest [...] MDReport Verified Date/Time: 01/28/2018 14:56:14 Reading Location: [facility] C013W Consult Reading Room VANCOMYCIN LEVEL, [id number] 14:17:00 Test Item Value Reference Range Comments VANCOMYCIN TROUGH (BEAKER) (test rfoa=547) 10.2 ug/mL 10.0-20.0 EEG AWAKE AND [id number] 13:37:00Reason for exam:->assess for epilepsy , 52 yo with GI bleed from esophageal varices, off sedation but not alert or oriented, previous EEG performed on ativanNeurophysiology Electroencephalogram Report DATE OF REPORT: 01/28/18Date(s) of Study: 01/28/2018ACC: [id number]: 18- 1740Start time: 09 hrsStop time: 43 hrsICD-10: R41.82 Altered Mental StatusCPT Code: 26858 EEG: coma or sleep only < 40 [...] electrographic seizures. Giselle Wright MDEpilepsy FellowST. LUKE'S MAGIC VALLEY [facility] Neurophysiology Service Reggie Gerard M.D., FACNS, FAAN, FAESProfessor of Neurology, [employer] [facility] [employer] [facility] Community HospitalDirector, [facility] Epilepsy CenterEly[facility] Neurophysiology Lab HEPATIC FUNCTION [id number] 12:32:00 Test Item Value Reference Range Comments TOTAL PROTEIN (BEAKER) (test kyid=744) 5.1 gm/dL 6.0-8.3 ALBUMIN (BEAKER) (test qdsh=8540) 2.4 g/dL 3.5-5.0 BILIRUBIN TOTAL (BEAKER) (test uzli=686) 10.8 mg/dL 0.2-1.2 BILIRUBIN DIRECT (BEAKER) (test ayzl=652) 7.0 mg/dL 0.1-0.5 ALKALINE PHOSPHATASE (BEAKER) (test sodv=648) 551 U/L 40-150 AST (SGOT) (BEAKER) (test qcjr=256) 2827 U/L 5-34 ALT (SGPT) (BEAKER) (test yzki=901) 878 U/L 6-55 Specimen markedly ictericPOCT-GLUCOSE [id number] 12:13:00 Test Item Value Reference Range Comments POC-GLUCOSE METER (BEAKER) 199 mg/dL 70-[address] [facility] [address] (test cnnj=2818) [facility] [address] BASIC METABOLIC [id number] 08:49:00 Test Item Value Reference Range Comments SODIUM (BEAKER) (test 136 meq/L 136-145 wlyq=644) POTASSIUM (BEAKER) (test 4.0 meq/L 3.5-5.1 kgqy=280) CHLORIDE (BEAKER) (test 105 meq/L 98-107 xhva=581) CO2 (BEAKER) (test 25 meq/L 22-29 usoi=538) BLOOD UREA NITROGEN 20 mg/dL 7-21 (BEAKER) (test khek=671) CREATININE (BEAKER) (test 2.84 mg/dL 0.57-1.25 zcmo=761) GLUCOSE RANDOM (BEAKER) 161 mg/dL 70-105 (test rrvv=226) CALCIUM (BEAKER) (test 8.2 mg/dL 8.4-10.2 zyrj=976) EGFR (BEAKER) (test 24 mL/min/1.73 sq m ESTIMATED GFR IS NOT sgrs=9616) ACCURATE CREATININE CLEARANCE IN PREDICTING GLOMERULAR FILTRATION RATE. ESTIMATED GFR IS NOT APPLICABLE FOR DIALYSIS PATIENTS. Specimen moderately [id number] 08:31:00 Test Item Value Reference Range Comments PHOSPHORUS (BEAKER) (test uzzh=040) 2.9 mg/dL 2.3-4.7 [id number] 08:31:00 Test Item Value Reference Range Comments MAGNESIUM (BEAKER) (test xkcr=030) 2.3 mg/dL 1.6-2.6 LACTIC ACID, ARTERIAL, WHOLE [id number] 08:26:00 Test Item Value Reference Range Comments LACTATE BLOOD ARTERIAL (2) (BEAKER) (test 1.3 mmol/L 0.5-2.2 bnzh=8005) Effective 09/15/2015: Units/Reference Range ChangeNew: 0.5-2.2 mmol/L Previous: 5 -20 mg/dLSpecimen moderately ictericPROTHROMBIN [id number] 08:18:00 Test Item Value Reference Range Comments PROTIME (BEAKER) (test pxch=539) 28.0 seconds 11.7-14.7 INR (BEAKER) (test cpif=847) 2.6 <=5.9 RECOMMENDED COUMADIN/WARFARIN INR THERAPY RANGESSTANDARD DOSE: 2.0 - 3.0 Includes: PROPHYLAXIS forvenous thrombosis, systemic embolization; TREATMENT for venous thrombosis and/or pulmonary embolus.HIGH RISK: Target INR is 2.5-3.5 for patients with mechanical heart valves.[id number] 08:18:00 Test Item Value Reference Range Comments FIBRINOGEN LEVEL (BEAKER) (test zeqi=198) 191 mg/dl 225-434 POCT-GLUCOSE [id number] 08:17:00 Test Item Value Reference Range Comments POC-GLUCOSE METER (BEAKER) 172 mg/dL 70-110 TESTED AT [address] (test ixkc=1179) [facility] [address] CALCIUM, [id number] 08:13:00 Test Item Value Reference Range Comments CALCIUM IONIZED (BEAKER) (test wfae=257) 1.16 mmol/L 1.12-1.27 PH, BLOOD (BEAKER) (test yabb=9457) 7.47 POCT-GLUCOSE [id number] 06:33:00 Test Item Value Reference Range Comments POC-GLUCOSE METER (BEAKER) 172 mg/dL 70-110 TESTED AT [address] (test tujd=2092) [facility] [address] CBC W/PLT COUNT & AUTO [id number] 06:16:00 Test Item Value Reference Range Comments WHITE BLOOD CELL COUNT (BEAKER) (test rjqp=976) 4.4 K/ L 3.5-10.5 RED BLOOD CELL COUNT (BEAKER) (test ovej=468) 2.62 M/ L 4.63-6.08 HEMOGLOBIN (BEAKER) (test uluz=251) 8.1 GM/DL 13.7-17.5 HEMATOCRIT (BEAKER) (test clsy=827) 24.7 % 40.1-51.0 MEAN CORPUSCULAR VOLUME (BEAKER) (test giuf=286) 94.3 fL 79.0-92.2 MEAN CORPUSCULAR HEMOGLOBIN (BEAKER) (test 30.9 pg 25.7-32.2 ibin=056) MEAN CORPUSCULAR HEMOGLOBIN CONC (BEAKER) (test 32.8 GM/DL 32.3-36.5 pcfz=937) RED CELL DISTRIBUTION WIDTH (BEAKER) (test 18.8 % 11.6-14.4 mlvo=124) PLATELET COUNT (BEAKER) (test busy=847) 33 K/CU MM 150-450 MEAN PLATELET VOLUME (BEAKER) (test jpla=973) 10.2 fL 9.4-12.4 NUCLEATED RED BLOOD CELLS (BEAKER) (test 3 /100 WBC 0-0 vlnh=614) NEUTROPHILS RELATIVE PERCENT (BEAKER) (test 81 % uqcy=501) LYMPHOCYTES RELATIVE PERCENT (BEAKER) (test 7 % bubs=382) MONOCYTES RELATIVE PERCENT (BEAKER) (test 10 % zqli=735) EOSINOPHILS RELATIVE PERCENT (BEAKER) (test 0 % crad=562) BASOPHILS RELATIVE PERCENT (BEAKER) (test 0 % cnsw=093) NEUTROPHILS ABSOLUTE COUNT (BEAKER) (test 3.52 K/ L 1.78-5.38 tefc=096) LYMPHOCYTES ABSOLUTE COUNT (BEAKER) (test 0.30 K/ L 1.32-3.57 rasu=569) MONOCYTES ABSOLUTE COUNT (BEAKER) (test exzg=562) 0.45 K/ L 0.30-0.82 EOSINOPHILS ABSOLUTE COUNT (BEAKER) (test 0.01 K/ L 0.04-0.54 afrb=933) BASOPHILS ABSOLUTE COUNT (BEAKER) (test gkmr=110) 0.01 K/ L 0.01-0.08 IMMATURE GRANULOCYTES-RELATIVE PERCENT (BEAKER) 2 % 0-1 (test yfxk=3896) BLOOD GAS, [id number] 04:17:00 Test Item Value Reference Range Comments PH ARTERIAL (BEAKER) (test vslw=174) 7.41 7.35-7.45 PCO2 ARTERIAL (BEAKER) (test qvcx=822) 46 mmHg 35-45 PO2 ARTERIAL (BEAKER) (test ptua=810) 90 mmHg 80-90 O2 SATURATION ARTERIAL (BEAKER) (test hvuu=894) 96.9 % 96.0-97.0 HCO3 ARTERIAL (BEAKER) (test svax=338) 28 mmol/L 21-29 BASE EXCESS ARTERIAL (BEAKER) (test xsiz=305) 3.3 mmol/L -2.0-3.0 PATIENT TEMPERATURE (BEAKER) (test jzmj=4160) 37.0 C FIO2 (BEAKER) (test czdl=2709) 35.0 % BILIRUBIN, [id number] 04:10:00 Test Item Value Reference Range Comments BILIRUBIN DIRECT (BEAKER) (test asfc=932) 7.3 mg/dL 0.1-0.5 LACTIC ACID, ARTERIAL, WHOLE [id number] 03:57:00 Test Item Value Reference Range Comments LACTATE BLOOD ARTERIAL (2) (BEAKER) (test 1.4 mmol/L 0.5-2.2 qtey=9596) Effective 09/15/2015: Units/Reference Range ChangeNew: 0.5-2.2 mmol/L Previous: 5 -20 mg/dLSpecimen moderately [id number] 03:54:00 Test Item Value Reference Range Comments FIBRINOGEN LEVEL (BEAKER) (test nzqs=077) 193 mg/dl 225-434 PROTHROMBIN [id number] 03:53:00 Test Item Value Reference Range Comments PROTIME (BEAKER) (test uset=854) 27.5 seconds 11.7-14.7 INR (BEAKER) (test mwfb=148) 2.6 <=5.9 RECOMMENDED COUMADIN/WARFARIN INR THERAPY RANGESSTANDARD DOSE: 2.0 - 3.0 Includes: PROPHYLAXIS forvenous thrombosis, systemic embolization; TREATMENT for venous thrombosis and/or pulmonary embolus.HIGH RISK: Target INR is 2.5-3.5 for patients with mechanical heart valves.RAD, CHEST, 1 VIEW, NON [id number] 03:45:00Reason for exam:->intubatedShould this be performed at the bedside ?->YesFINAL REPORT CLINICAL INDICATION: Support lines. Comparison: 01/27/2018 The cardiomediastinal contours are stable. Central pulmonary vascular congestion and bilateral parenchymaland pleural opacities are unchanged. There is no pneumothorax. An enteric tube traverses examinationto the upper abdomen. An endotracheal tube is stable. Signed: Gaurav Cunningham MDReport Verified Date/Time: 01/28/2018 03:45:51 Reading Location: [address] Reading Room CALCIUM, [id number] 00:45:00 Test Item Value Reference Range Comments CALCIUM IONIZED (BEAKER) (test tpsx=743) 1.12 mmol/L 1.12-1.27 PH, BLOOD (BEAKER) (test tbfr=4216) 7.38 BASIC METABOLIC [id number] 00:28:00 Test Item Value Reference Range Comments SODIUM (BEAKER) (test 134 meq/L 136-145 iaxm=248) POTASSIUM (BEAKER) (test 3.8 meq/L 3.5-5.1 eclq=106) CHLORIDE (BEAKER) (test 101 meq/L 98-107 kugb=558) CO2 (BEAKER) (test 26 meq/L 22-29 jckh=200) BLOOD UREA NITROGEN 19 mg/dL 7-21 (BEAKER) (test gswt=065) CREATININE (BEAKER) (test 2.73 mg/dL 0.57-1.25 prez=397) GLUCOSE RANDOM (BEAKER) 161 mg/dL 70-105 (test oykq=154) CALCIUM (BEAKER) (test 8.1 mg/dL 8.4-10.2 oyyq=394) EGFR (BEAKER) (test 25 mL/min/1.73 sq m ESTIMATED GFR IS NOT pieo=5822) ACCURATE CREATININE CLEARANCE IN PREDICTING GLOMERULAR FILTRATION RATE. ESTIMATED GFR IS NOT APPLICABLE FOR DIALYSIS PATIENTS. Specimen markedly ictericLACTIC ACID, ARTERIAL, WHOLE [id number] 00:18:00 Test Item Value Reference Range Comments LACTATE BLOOD ARTERIAL (2) (BEAKER) (test 2.5 mmol/L 0.5-2.2 xyyo=1081) Effective 09/15/2015: Units/Reference Range ChangeNew: 0.5-2.2 mmol/L Previous: 5 -20 mg/dLSpecimen markedly ictericPROTHROMBIN [id number] 00:14:00 Test Item Value Reference Range Comments PROTIME (BEAKER) (test mkta=619) 28.1 seconds 11.7-14.7 INR (BEAKER) (test fvls=079) 2.6 <=5.9 RECOMMENDED COUMADIN/WARFARIN INR THERAPY RANGESSTANDARD DOSE: 2.0 - 3.0 Includes: PROPHYLAXIS forvenous thrombosis, systemic embolization; TREATMENT for venous thrombosis and/or pulmonary embolus.HIGH RISK: Target INR is 2.5-3.5 for patients with mechanical heart valves.[id number] 00:14:00 Test Item Value Reference Range Comments FIBRINOGEN LEVEL (BEAKER) (test szyh=961) 196 mg/dl 225-434 CBC W/PLT COUNT & AUTO [id number] 00:08:00 Test Item Value Reference Range Comments WHITE BLOOD CELL COUNT (BEAKER) (test kryd=540) 4.7 K/ L 3.5-10.5 RED BLOOD CELL COUNT (BEAKER) (test iwhg=234) 2.62 M/ L 4.63-6.08 HEMOGLOBIN (BEAKER) (test fmdm=693) 8.0 GM/DL 13.7-17.5 HEMATOCRIT (BEAKER) (test zxmz=763) 24.8 % 40.1-51.0 MEAN CORPUSCULAR VOLUME (BEAKER) (test gcvn=203) 94.7 fL 79.0-92.2 MEAN CORPUSCULAR HEMOGLOBIN (BEAKER) (test 30.5 pg 25.7-32.2 vtus=222) MEAN CORPUSCULAR HEMOGLOBIN CONC (BEAKER) (test 32.3 GM/DL 32.3-36.5 nnks=513) RED CELL DISTRIBUTION WIDTH (BEAKER) (test 18.8 % 11.6-14.4 urta=773) PLATELET COUNT (BEAKER) (test rcdu=730) 37 K/CU MM 150-450 MEAN PLATELET VOLUME (BEAKER) (test iszp=651) 9.9 fL 9.4-12.4 NUCLEATED RED BLOOD CELLS (BEAKER) (test 3 /100 WBC 0-0 irod=234) NEUTROPHILS RELATIVE PERCENT (BEAKER) (test 82 % oeds=548) LYMPHOCYTES RELATIVE PERCENT (BEAKER) (test 6 % rgrc=597) MONOCYTES RELATIVE PERCENT (BEAKER) (test 11 % lxtv=498) EOSINOPHILS RELATIVE PERCENT (BEAKER) (test 0 % tqzi=580) BASOPHILS RELATIVE PERCENT (BEAKER) (test 0 % mrae=787) NEUTROPHILS ABSOLUTE COUNT (BEAKER) (test 3.81 K/ L 1.78-5.38 naji=921) LYMPHOCYTES ABSOLUTE COUNT (BEAKER) (test 0.29 K/ L 1.32-3.57 dsiq=647) MONOCYTES ABSOLUTE COUNT (BEAKER) (test wmgx=169) 0.49 K/ L 0.30-0.82 EOSINOPHILS ABSOLUTE COUNT (BEAKER) (test 0.00 K/ L 0.04-0.54 rgkr=655) BASOPHILS ABSOLUTE COUNT (BEAKER) (test dmac=093) 0.00 K/ L 0.01-0.08 IMMATURE GRANULOCYTES-RELATIVE PERCENT (BEAKER) 1 % 0-1 (test krew=1873) POCT-GLUCOSE [id number] 22:25:00 Test Item Value Reference Range Comments POC-GLUCOSE METER (BEAKER) 180 mg/dL 70-[address] [facility] [address] [facility] (test orvq=8762) [facility] [address] [id number] 20:22:00 Test Item Value Reference Range Comments PHOSPHORUS (BEAKER) (test spff=053) 3.4 mg/dL 2.3-4.7 [id number] 20:22:00 Test Item Value Reference Range Comments MAGNESIUM (BEAKER) (test mxqr=795) 2.0 mg/dL 1.6-2.6 LACTIC ACID, ARTERIAL, WHOLE [id number] 20:20:00 Test Item Value Reference Range Comments LACTATE BLOOD ARTERIAL (2) (BEAKER) (test 1.4 mmol/L 0.5-2.2 guxp=5600) Effective 09/15/2015: Units/Reference Range ChangeNew: 0.5-2.2 mmol/L Previous: 5 -20 mg/dLSpecimen moderately [id number] 20:19:00 Test Item Value Reference Range Comments FIBRINOGEN LEVEL (BEAKER) (test hzsw=975) 191 mg/dl 225-434 PROTHROMBIN [id number] 20:18:00 Test Item Value Reference Range Comments PROTIME (BEAKER) (test dfef=927) 29.7 seconds 11.7-14.7 INR (BEAKER) (test vvdh=966) 2.8 <=5.9 RECOMMENDED COUMADIN/WARFARIN INR THERAPY RANGESSTANDARD DOSE: 2.0 - 3.0 Includes: PROPHYLAXIS forvenous thrombosis, systemic embolization; TREATMENT for venous thrombosis and/or pulmonary embolus.HIGH RISK: Target INR is 2.5-3.5 for patients with mechanical heart valves.PH, [id number] 20:07:00 Test Item Value Reference Range Comments PH ARTERIAL (BEAKER) (test uhnx=189) 7.43 7.35-7.45 BASIC METABOLIC [id number] 17:52:00 Test Item Value Reference Range Comments SODIUM (BEAKER) (test 135 meq/L 136-145 nieb=164) POTASSIUM (BEAKER) (test 4.3 meq/L 3.5-5.1 avyv=423) CHLORIDE (BEAKER) (test 102 meq/L 98-107 rhen=543) CO2 (BEAKER) (test 27 meq/L 22-29 xcth=464) BLOOD UREA NITROGEN 17 mg/dL 7-21 (BEAKER) (test ueja=051) CREATININE (BEAKER) (test 2.72 mg/dL 0.57-1.25 oazb=933) GLUCOSE RANDOM (BEAKER) 141 mg/dL 70-105 (test cxvp=623) CALCIUM (BEAKER) (test 8.3 mg/dL 8.4-10.2 dhdm=164) EGFR (BEAKER) (test 25 mL/min/1.73 sq m ESTIMATED GFR IS NOT uhnu=8563) ACCURATE CREATININE CLEARANCE IN PREDICTING GLOMERULAR FILTRATION RATE. ESTIMATED GFR IS NOT APPLICABLE FOR DIALYSIS PATIENTS. Specimen moderately ictericCALCIUM, [id number] 17:48:00 Test Item Value Reference Range Comments CALCIUM IONIZED (BEAKER) (test fodz=310) 1.14 mmol/L 1.12-1.27 PH, BLOOD (BEAKER) (test elpq=0597) 7.41 POCT-GLUCOSE [id number] 17:45:00 Test Item Value Reference Range Comments POC-GLUCOSE METER (BEAKER) 164 mg/dL 70-[address] [facility] [address] [facility] (test psvo=9393) [facility] [address] LACTIC ACID, ARTERIAL, WHOLE [id number] 17:37:00 Test Item Value Reference Range Comments LACTATE BLOOD ARTERIAL (2) (BEAKER) (test 1.5 mmol/L 0.5-2.2 rkqy=1379) Effective 09/15/2015: Units/Reference Range ChangeNew: 0.5-2.2 mmol/L Previous: 5 -20 mg/dLSpecimen moderately ictericCBC W/PLT COUNT & AUTO [id number] 17:35:00 Test Item Value Reference Range Comments WHITE BLOOD CELL COUNT (BEAKER) (test jbkm=439) 4.4 K/ L 3.5-10.5 RED BLOOD CELL COUNT (BEAKER) (test mevw=313) 2.54 M/ L 4.63-6.08 HEMOGLOBIN (BEAKER) (test ljwg=966) 7.9 GM/DL 13.7-17.5 HEMATOCRIT (BEAKER) (test gboy=830) 24.0 % 40.1-51.0 MEAN CORPUSCULAR VOLUME (BEAKER) (test axvf=166) 94.5 fL 79.0-92.2 MEAN CORPUSCULAR HEMOGLOBIN (BEAKER) (test 31.1 pg 25.7-32.2 rauw=203) MEAN CORPUSCULAR HEMOGLOBIN CONC (BEAKER) (test 32.9 GM/DL 32.3-36.5 uept=314) RED CELL DISTRIBUTION WIDTH (BEAKER) (test 19.3 % 11.6-14.4 jiaj=372) PLATELET COUNT (BEAKER) (test ophw=952) 40 K/CU MM 150-450 MEAN PLATELET VOLUME (BEAKER) (test iutl=160) 10.1 fL 9.4-12.4 NUCLEATED RED BLOOD CELLS (BEAKER) (test 3 /100 WBC 0-0 uojs=149) NEUTROPHILS RELATIVE PERCENT (BEAKER) (test 80 % wews=580) LYMPHOCYTES RELATIVE PERCENT (BEAKER) (test 8 % qerl=079) MONOCYTES RELATIVE PERCENT (BEAKER) (test 11 % hbbs=128) EOSINOPHILS RELATIVE PERCENT (BEAKER) (test 0 % rnkn=642) BASOPHILS RELATIVE PERCENT (BEAKER) (test 0 % jbhh=751) NEUTROPHILS ABSOLUTE COUNT (BEAKER) (test 3.53 K/ L 1.78-5.38 wdqc=451) LYMPHOCYTES ABSOLUTE COUNT (BEAKER) (test 0.35 K/ L 1.32-3.57 anaf=491) MONOCYTES ABSOLUTE COUNT (BEAKER) (test lvjv=407) 0.47 K/ L 0.30-0.82 EOSINOPHILS ABSOLUTE COUNT (BEAKER) (test 0.01 K/ L 0.04-0.54 qgoe=811) BASOPHILS ABSOLUTE COUNT (BEAKER) (test esyu=769) 0.01 K/ L 0.01-0.08 IMMATURE GRANULOCYTES-RELATIVE PERCENT (BEAKER) 1 % 0-1 (test dpmt=0358) PROTHROMBIN [id number] 17:29:00 Test Item Value Reference Range Comments PROTIME (BEAKER) (test gxjt=394) 28.6 seconds 11.7-14.7 INR (BEAKER) (test aqqv=015) 2.7 <=5.9 RECOMMENDED COUMADIN/WARFARIN INR THERAPY RANGESSTANDARD DOSE: 2.0 - 3.0 Includes: PROPHYLAXIS forvenous thrombosis, systemic embolization; TREATMENT for venous thrombosis and/or pulmonary embolus.HIGH RISK: Target INR is 2.5-3.5 for patients with mechanical heart valves.[id number] 17:29:00 Test Item Value Reference Range Comments FIBRINOGEN LEVEL (BEAKER) (test jllr=810) 201 mg/dl 225-434 VITAMIN B12 AND [id number] 14:13:00 Test Item Value Reference Range Comments VITAMIN B12 (BEAKER) (test rosw=518) > pg/mL 213-816 FOLATE (BEAKER) (test hwdx=534) 10.4 ng/mL >=7.0 CBC W/PLT COUNT & AUTO [id number] 13:41:00 Test Item Value Reference Range Comments WHITE BLOOD CELL COUNT (BEAKER) (test yfnk=611) 5.4 K/ L 3.5-10.5 RED BLOOD CELL COUNT (BEAKER) (test vasu=826) 2.53 M/ L 4.63-6.08 HEMOGLOBIN (BEAKER) (test tiqk=192) 7.8 GM/DL 13.7-17.5 HEMATOCRIT (BEAKER) (test yndw=715) 24.0 % 40.1-51.0 MEAN CORPUSCULAR VOLUME (BEAKER) (test mcet=383) 94.9 fL 79.0-92.2 MEAN CORPUSCULAR HEMOGLOBIN (BEAKER) (test 30.8 pg 25.7-32.2 dndm=665) MEAN CORPUSCULAR HEMOGLOBIN CONC (BEAKER) (test 32.5 GM/DL 32.3-36.5 rabd=669) RED CELL DISTRIBUTION WIDTH (BEAKER) (test 19.3 % 11.6-14.4 scsi=701) PLATELET COUNT (BEAKER) (test gehi=295) 44 K/CU MM 150-450 MEAN PLATELET VOLUME (BEAKER) (test nqtd=877) 9.9 fL 9.4-12.4 NUCLEATED RED BLOOD CELLS (BEAKER) (test 2 /100 WBC 0-0 czmi=406) (CELLAVISION MANUAL DIFF)2018-01-27 13:41:00 Test Item Value Reference Range Comments NEUTROPHILS - REL (CELLAVISION)(BEAKER) (test 64 % cfkq=3469) LYMPHOCYTES - REL (CELLAVISION)(BEAKER) (test 7 % bkoq=5429) MONOCYTES - REL (CELLAVISION)(BEAKER) (test 5 % fkmi=9139) BANDS - REL (CELLAVISION)(BEAKER) (test 24 % 0-10 xdxd=3188) NEUTROPHILS - ABS (CELLAVISION)(BEAKER) (test 3.46 K/ul 1.78-5.38 ggeq=7183) LYMPHOCYTES - ABS (CELLAVISION)(BEAKER) (test 0.38 K/ul 1.32-3.57 qcqv=8779) MONOCYTES - ABS (CELLAVISION)(BEAKER) (test 0.27 K/uL 0.30-0.82 fktv=5660) BANDS - ABS (CELLAVISION)(BEAKER) (test 1.30 K/uL 0.00-0.80 lmog=0326) TOTAL COUNTED (BEAKER) (test ssim=7960) 100 MANUAL NRBC PER 100 CELLS (BEAKER) (test 3 /100 WBC 0-0 tuix=1312) WBC MORPHOLOGY (BEAKER) (test ajfk=061) Normal PLT MORPHOLOGY (BEAKER) (test leqh=367) Normal POLYCHROMATOPHILLIC RBCS(BEAKER) (test emif=098) 1+ few ANISOCYTOSIS (BEAKER) (test pfpm=175) 1+ few ARTIFACT (CELLAVISION)(BEAKER) (test gfbz=7180) Present PLATELET CONCENTRATION (CELLAVISION)(BEAKER) Decreased (test yxpy=1574) Received comment: User comments: Slide comments:BILIRUBIN, [id number] 13: 30:00 Test Item Value Reference Range Comments BILIRUBIN DIRECT (BEAKER) (test htgb=721) 7.0 mg/dL 0.1-0.5 LACTIC ACID, ARTERIAL, WHOLE [id number] 13:25:00 Test Item Value Reference Range Comments LACTATE BLOOD ARTERIAL (2) (BEAKER) (test 1.8 mmol/L 0.5-2.2 aqxt=3091) Effective 09/15/2015: Units/Reference Range ChangeNew: 0.5-2.2 mmol/L Previous: 5 -20 mg/dLSpecimen moderately ictericPROTHROMBIN [id number] 13:20:00 Test Item Value Reference Range Comments PROTIME (BEAKER) (test tmhx=186) 29.7 seconds 11.7-14.7 INR (BEAKER) (test ggrx=396) 2.8 <=5.9 RECOMMENDED COUMADIN/WARFARIN INR THERAPY RANGESSTANDARD DOSE: 2.0 - 3.0 Includes: PROPHYLAXIS forvenous thrombosis, systemic embolization; TREATMENT for venous thrombosis and/or pulmonary embolus.HIGH RISK: Target INR is 2.5-3.5 for patients with mechanical heart valves.[id number] 13:20:00 Test Item Value Reference Range Comments FIBRINOGEN LEVEL (BEAKER) (test efpu=247) 216 mg/dl 225-434 RAD, ABDOMEN/KUB, 1 VIEW [id number] 12:00:00Reason for exam:->corpakFINAL REPORT Abdomen. MEDICAL HISTORY: [...] the detection of free air. Signed: Angelique Mcghee MDReport Verified Date/Time: 01/27/2018 12:00:05 Reading Location: [address] Body Reading Room BASIC METABOLIC [id number] 09:09:00 Test Item Value Reference Range Comments SODIUM (BEAKER) (test 135 meq/L 136-145 syqj=710) POTASSIUM (BEAKER) (test 4.4 meq/L 3.5-5.1 scpa=193) CHLORIDE (BEAKER) (test 101 meq/L 98-107 sbbc=676) CO2 (BEAKER) (test 26 meq/L 22-29 tjhh=554) BLOOD UREA NITROGEN 15 mg/dL 7-21 (BEAKER) (test lsrv=751) CREATININE (BEAKER) (test 2.77 mg/dL 0.57-1.25 azxf=800) GLUCOSE RANDOM (BEAKER) 145 mg/dL 70-105 (test ftaz=153) CALCIUM (BEAKER) (test 8.7 mg/dL 8.4-10.2 azex=203) EGFR (BEAKER) (test 24 mL/min/1.73 sq m ESTIMATED GFR IS NOT lgmx=1383) ACCURATE CREATININE CLEARANCE IN PREDICTING GLOMERULAR FILTRATION RATE. ESTIMATED GFR IS NOT APPLICABLE FOR DIALYSIS PATIENTS. Specimen moderately ictericRAD, CHEST, 1 VIEW, NON [id number] 09:05: 00Reason for exam:->intubatedShould this be performed at the bedside?-> YesFINAL REPORT AP chest HISTORY: Intubation COMPARISON: 01/26/2018 IMPRESSION:Endotracheal tube in satisfactory position. Stable cardiac silhouette. Worsened interstitial edema. Worsening aeration of the lung bases suggestive of atelectasis. Moderate effusions. No pneumothorax. Signed: Alexia Bray MDReport Verified Date/Time: 01/27/2018 09:05:55 Reading Location: [place] [address] [id number] 08:59:00 Test Item Value Reference Range Comments PHOSPHORUS (BEAKER) (test olkg=367) 3.9 mg/dL 2.3-4.7 [id number] 08:59:00 Test Item Value Reference Range Comments MAGNESIUM (BEAKER) (test mnxf=978) 1.9 mg/dL 1.6-2.6 LACTIC ACID, ARTERIAL, WHOLE [id number] 08:55:00 Test Item Value Reference Range Comments LACTATE BLOOD ARTERIAL (2) (BEAKER) (test 2.4 mmol/L 0.5-2.2 iggp=4284) Effective 09/15/2015: Units/Reference Range ChangeNew: 0.5-2.2 mmol/L Previous: 5 -20 mg/dLSpecimen moderately ictericPROTHROMBIN [id number] 08:54:00 Test Item Value Reference Range Comments PROTIME (BEAKER) (test ssak=164) 29.7 seconds 11.7-14.7 INR (BEAKER) (test rxek=548) 2.8 <=5.9 RECOMMENDED COUMADIN/WARFARIN INR THERAPY RANGESSTANDARD DOSE: 2.0 - 3.0 Includes: PROPHYLAXIS forvenous thrombosis, systemic embolization; TREATMENT for venous thrombosis and/or pulmonary embolus.HIGH RISK: Target INR is 2.5-3.5 for patients with mechanical heart valves.[id number] 08:54:00 Test Item Value Reference Range Comments FIBRINOGEN LEVEL (BEAKER) (test eszl=761) 230 mg/dl 225-434 CALCIUM, [id number] 08:20:00 Test Item Value Reference Range Comments CALCIUM IONIZED (BEAKER) (test zahv=855) 1.12 mmol/L 1.12-1.27 PH, BLOOD (BEAKER) (test qfqj=9951) 7.42 POCT-GLUCOSE [id number] 08:14:00 Test Item Value Reference Range Comments POC-GLUCOSE METER (BEAKER) 155 mg/dL 70-[address] [facility] [address] [place] [address] (test dwdt=7818) [facility] [address] CBC W/PLT COUNT & AUTO [id number] 07:11:00 Test Item Value Reference Range Comments WHITE BLOOD CELL COUNT (BEAKER) (test jswd=152) 6.5 K/ L 3.5-10.5 RED BLOOD CELL COUNT (BEAKER) (test alxe=980) 2.64 M/ L 4.63-6.08 HEMOGLOBIN (BEAKER) (test gfuy=371) 8.1 GM/DL 13.7-17.5 HEMATOCRIT (BEAKER) (test gbid=230) 24.8 % 40.1-51.0 MEAN CORPUSCULAR VOLUME (BEAKER) (test mdvc=581) 93.9 fL 79.0-92.2 MEAN CORPUSCULAR HEMOGLOBIN (BEAKER) (test 30.7 pg 25.7-32.2 qwbv=544) MEAN CORPUSCULAR HEMOGLOBIN CONC (BEAKER) (test 32.7 GM/DL 32.3-36.5 wxva=278) RED CELL DISTRIBUTION WIDTH (BEAKER) (test 19.8 % 11.6-14.4 qzjv=620) PLATELET COUNT (BEAKER) (test kgzw=729) 59 K/CU MM 150-450 MEAN PLATELET VOLUME (BEAKER) (test reln=714) 10.4 fL 9.4-12.4 NUCLEATED RED BLOOD CELLS (BEAKER) (test 2 /100 WBC 0-0 icrt=146) (CELLAVISION MANUAL DIFF)2018-01-27 07:11:00 Test Item Value Reference Range Comments NEUTROPHILS - REL (CELLAVISION)(BEAKER) (test 87 % oqan=8618) LYMPHOCYTES - REL (CELLAVISION)(BEAKER) (test 5 % dthp=2878) MONOCYTES - REL (CELLAVISION)(BEAKER) (test 3 % cstk=9059) BANDS - REL (CELLAVISION)(BEAKER) (test 5 % 0-10 tunk=8891) NEUTROPHILS - ABS (CELLAVISION)(BEAKER) (test 5.66 K/ul 1.78-5.38 eonp=1875) LYMPHOCYTES - ABS (CELLAVISION)(BEAKER) (test 0.33 K/ul 1.32-3.57 gzom=8355) MONOCYTES - ABS (CELLAVISION)(BEAKER) (test 0.20 K/uL 0.30-0.82 vrmz=4853) BANDS - ABS (CELLAVISION)(BEAKER) (test 0.33 K/uL 0.00-0.80 wpbz=0857) TOTAL COUNTED (BEAKER) (test gmib=1220) 100 MANUAL NRBC PER 100 CELLS (BEAKER) (test 2 /100 WBC 0-0 gupm=2851) RBC MORPHOLOGY (BEAKER) (test grub=849) Normal PLT MORPHOLOGY (BEAKER) (test hczx=192) Normal SMUDGE CELLS (BEAKER) (test hlvf=1724) Present ARTIFACT (CELLAVISION)(BEAKER) (test wtef=7731) Present PLATELET CONCENTRATION (CELLAVISION)(BEAKER) Decreased (test glnj=0075) Received comment: User comments: Slide comments:CBC W/PLT COUNT & AUTO [id number] 07:10:00 Test Item Value Reference Range Comments WHITE BLOOD CELL COUNT (BEAKER) (test bglr=392) 6.8 K/ L 3.5-10.5 RED BLOOD CELL COUNT (BEAKER) (test sngh=542) 2.65 M/ L 4.63-6.08 HEMOGLOBIN (BEAKER) (test hejg=434) 8.1 GM/DL 13.7-17.5 HEMATOCRIT (BEAKER) (test hdvr=994) 25.2 % 40.1-51.0 MEAN CORPUSCULAR VOLUME (BEAKER) (test btyv=118) 95.1 fL 79.0-92.2 MEAN CORPUSCULAR HEMOGLOBIN (BEAKER) (test 30.6 pg 25.7-32.2 uqpk=490) MEAN CORPUSCULAR HEMOGLOBIN CONC (BEAKER) (test 32.1 GM/DL 32.3-36.5 iejz=643) RED CELL DISTRIBUTION WIDTH (BEAKER) (test 19.5 % 11.6-14.4 gszb=613) PLATELET COUNT (BEAKER) (test eaye=704) 63 K/CU MM 150-450 MEAN PLATELET VOLUME (BEAKER) (test arjp=677) 10.3 fL 9.4-12.4 NUCLEATED RED BLOOD CELLS (BEAKER) (test 2 /100 WBC 0-0 mgad=340) NEUTROPHILS RELATIVE PERCENT (BEAKER) (test 82 % gtzf=055) LYMPHOCYTES RELATIVE PERCENT (BEAKER) (test 7 % obdk=803) MONOCYTES RELATIVE PERCENT (BEAKER) (test 10 % wkcn=746) EOSINOPHILS RELATIVE PERCENT (BEAKER) (test 0 % xerg=309) BASOPHILS RELATIVE PERCENT (BEAKER) (test 0 % pifh=475) NEUTROPHILS ABSOLUTE COUNT (BEAKER) (test 5.60 K/ L 1.78-5.38 gdzd=550) LYMPHOCYTES ABSOLUTE COUNT (BEAKER) (test 0.47 K/ L 1.32-3.57 ocmm=282) MONOCYTES ABSOLUTE COUNT (BEAKER) (test uwsj=499) 0.67 K/ L 0.30-0.82 EOSINOPHILS ABSOLUTE COUNT (BEAKER) (test 0.01 K/ L 0.04-0.54 yxwj=024) BASOPHILS ABSOLUTE COUNT (BEAKER) (test mrsv=883) 0.01 K/ L 0.01-0.08 IMMATURE GRANULOCYTES-RELATIVE PERCENT (BEAKER) 1 % 0-1 (test ikhx=6696) COMPREHENSIVE METABOLIC [id number] 04:09:00 Test Item Value Reference Range Comments TOTAL PROTEIN (BEAKER) 5.2 gm/dL 6.0-8.3 (test pzpx=437) ALBUMIN (BEAKER) (test 2.7 g/dL 3.5-5.0 fvfc=8645) ALKALINE PHOSPHATASE 613 U/L 40-150 (BEAKER) (test ysez=168) BILIRUBIN TOTAL (BEAKER) 10.4 mg/dL 0.2-1.2 (test orbm=286) SODIUM (BEAKER) (test 138 meq/L 136-145 samk=773) POTASSIUM (BEAKER) (test 4.4 meq/L 3.5-5.1 cpdh=146) CHLORIDE (BEAKER) (test 103 meq/L 98-107 ulbe=115) CO2 (BEAKER) (test 25 meq/L 22-29 mnhk=383) BLOOD UREA NITROGEN 15 mg/dL 7-21 (BEAKER) (test nhgu=448) CREATININE (BEAKER) (test 2.91 mg/dL 0.57-1.25 wblv=930) GLUCOSE RANDOM (BEAKER) 133 mg/dL 70-105 (test tevb=461) CALCIUM (BEAKER) (test 9.0 mg/dL 8.4-10.2 wakp=236) AST (SGOT) (BEAKER) (test > U/L 5-34 cbiq=832) ALT (SGPT) (BEAKER) (test 1289 U/L 6-55 iveq=176) EGFR (BEAKER) (test 23 mL/min/1.73 sq m ESTIMATED GFR IS NOT royi=7836) ACCURATE CREATININE CLEARANCE IN PREDICTING GLOMERULAR FILTRATION RATE. ESTIMATED GFR IS NOT APPLICABLE FOR DIALYSIS PATIENTS. Specimen moderately ictericPROTHROMBIN [id number] 04:03:00 Test Item Value Reference Range Comments PROTIME (BEAKER) (test iwnw=810) 30.3 seconds 11.7-14.7 INR (BEAKER) (test rgrq=977) 2.9 <=5.9 RECOMMENDED COUMADIN/WARFARIN INR THERAPY RANGESSTANDARD DOSE: 2.0 - 3.0 Includes: PROPHYLAXIS forvenous thrombosis, systemic embolization; TREATMENT for venous thrombosis and/or pulmonary embolus.HIGH RISK: Target INR is 2.5-3.5 for patients with mechanical heart valves.[id number] 04:03:00 Test Item Value Reference Range Comments FIBRINOGEN LEVEL (BEAKER) (test ozbp=215) 254 mg/dl 225-434 BLOOD GAS, [id number] 04:02:00 Test Item Value Reference Range Comments PH ARTERIAL (BEAKER) (test wokx=988) 7.39 7.35-7.45 PCO2 ARTERIAL (BEAKER) (test bcpz=082) 45 mmHg 35-45 PO2 ARTERIAL (BEAKER) (test dadn=585) 126 mmHg 80-90 O2 SATURATION ARTERIAL (BEAKER) (test megy=720) 98.4 % 96.0-97.0 HCO3 ARTERIAL (BEAKER) (test tlyq=597) 27 mmol/L 21-29 BASE EXCESS ARTERIAL (BEAKER) (test gkrt=549) 1.6 mmol/L -2.0-3.0 PATIENT TEMPERATURE (BEAKER) (test jqcf=1023) 37.5 C FIO2 (BEAKER) (test snkn=6586) 40.0 % LACTIC ACID, ARTERIAL, WHOLE [id number] 04:02:00 Test Item Value Reference Range Comments LACTATE BLOOD ARTERIAL (2) (BEAKER) (test 4.9 mmol/L 0.5-2.2 mpqa=2953) Effective 09/15/2015: Units/Reference Range ChangeNew: 0.5-2.2 mmol/L Previous: 5 -20 mg/dLSpecimen moderately ictericBASIC METABOLIC [id number] 00:40:00 Test Item Value Reference Range Comments SODIUM (BEAKER) (test 135 meq/L 136-145 ofuq=571) POTASSIUM (BEAKER) (test 4.5 meq/L 3.5-5.1 iomq=710) CHLORIDE (BEAKER) (test 102 meq/L 98-107 kvps=675) CO2 (BEAKER) (test 25 meq/L 22-29 wdiz=039) BLOOD UREA NITROGEN 14 mg/dL 7-21 (BEAKER) (test zqsj=336) CREATININE (BEAKER) (test 2.87 mg/dL 0.57-1.25 mlrv=012) GLUCOSE RANDOM (BEAKER) 117 mg/dL 70-105 (test fwhd=867) CALCIUM (BEAKER) (test 8.3 mg/dL 8.4-10.2 kqut=972) EGFR (BEAKER) (test 23 mL/min/1.73 sq m ESTIMATED GFR IS NOT vjjd=1420) ACCURATE CREATININE CLEARANCE IN PREDICTING GLOMERULAR FILTRATION RATE. ESTIMATED GFR IS NOT APPLICABLE FOR DIALYSIS PATIENTS. Specimen moderately ictericLACTIC ACID, ARTERIAL, WHOLE [id number] 00:30:00 Test Item Value Reference Range Comments LACTATE BLOOD ARTERIAL (2) (BEAKER) (test 3.4 mmol/L 0.5-2.2 aezo=1018) Effective 09/15/2015: Units/Reference Range ChangeNew: 0.5-2.2 mmol/L Previous: 5 -20 mg/dLSpecimen moderately ictericCALCIUM, [id number] 00:15:00 Test Item Value Reference Range Comments CALCIUM IONIZED (BEAKER) (test mtut=643) 1.06 mmol/L 1.12-1.27 PH, BLOOD (BEAKER) (test eyui=1191) 7.47 POCT-GLUCOSE [id number] 00:04:00 Test Item Value Reference Range Comments POC-GLUCOSE METER (BEAKER) 111 mg/dL 70-110 TESTED AT [address] (test uxvm=7984) [facility] [address] PROTHROMBIN [id number] 00:03:00 Test Item Value Reference Range Comments PROTIME (BEAKER) (test ayiz=968) 30.6 seconds 11.7-14.7 INR (BEAKER) (test zxbf=984) 2.9 <=5.9 RECOMMENDED COUMADIN/WARFARIN INR THERAPY RANGESSTANDARD DOSE: 2.0 - 3.0 Includes: PROPHYLAXIS forvenous thrombosis, systemic embolization; TREATMENT for venous thrombosis and/or pulmonary embolus.HIGH RISK: Target INR is 2.5-3.5 for patients with mechanical heart valves.[id number] 00:03:00 Test Item Value Reference Range Comments FIBRINOGEN LEVEL (BEAKER) (test eeml=092) 244 mg/dl 225-434 POCT-GLUCOSE [id number] 22:08:00 Test Item Value Reference Range Comments POC-GLUCOSE METER (BEAKER) 107 mg/dL 70-110 TESTED AT [address] (test nvyr=3682) [facility] [address] [id number] 20:38:00 Test Item Value Reference Range Comments FIBRINOGEN LEVEL (BEAKER) (test ffoy=776) 237 mg/dl 225-434 LACTIC ACID, ARTERIAL, WHOLE [id number] 20:37:00 Test Item Value Reference Range Comments LACTATE BLOOD ARTERIAL (2) (BEAKER) (test 3.8 mmol/L 0.5-2.2 xnqm=0833) Effective 09/15/2015: Units/Reference Range ChangeNew: 0.5-2.2 mmol/L Previous: 5 -20 mg/dLSpecimen moderately ictericPROTHROMBIN [id number] 20:37:00 Test Item Value Reference Range Comments PROTIME (BEAKER) (test zahm=831) 29.4 seconds 11.7-14.7 INR (BEAKER) (test hjew=157) 2.8 <=5.9 RECOMMENDED COUMADIN/WARFARIN INR THERAPY RANGESSTANDARD DOSE: 2.0 - 3.0 Includes: PROPHYLAXIS forvenous thrombosis, systemic embolization; TREATMENT for venous thrombosis and/or pulmonary embolus.HIGH RISK: Target INR is 2.5-3.5 for patients with mechanical heart valves.[id number] 20:37:00 Test Item Value Reference Range Comments PHOSPHORUS (BEAKER) (test lkzp=145) 4.4 mg/dL 2.3-4.7 [id number] 20:37:00 Test Item Value Reference Range Comments MAGNESIUM (BEAKER) (test enlp=546) 1.6 mg/dL 1.6-2.6 PH, [id number] 20:36:00 Test Item Value Reference Range Comments PH ARTERIAL (AKER) (test eegy=775) 7.44 7.35-7.45 POCT-GLUCOSE [id number] 18:16:00 Test Item Value Reference Range Comments POC-GLUCOSE METER ([facility]) 94 mg/dL 70-110 TESTED AT [address] (test bjmf=9153) [facility] [address] CBC W/PLT COUNT & AUTO [id number] 17:53:00 Test Item Value Reference Range Comments WHITE BLOOD CELL COUNT (BEAKER) (test qcpn=941) 7.4 K/ L 3.5-10.5 RED BLOOD CELL COUNT (BEAKER) (test ktqe=289) 2.65 M/ L 4.63-6.08 HEMOGLOBIN (BEAKER) (test btly=577) 8.1 GM/DL 13.7-17.5 HEMATOCRIT (BEAKER) (test omox=880) 25.2 % 40.1-51.0 MEAN CORPUSCULAR VOLUME (BEAKER) (test oyqb=848) 95.1 fL 79.0-92.2 MEAN CORPUSCULAR HEMOGLOBIN (BEAKER) (test 30.6 pg 25.7-32.2 zysd=627) MEAN CORPUSCULAR HEMOGLOBIN CONC (BEAKER) (test 32.1 GM/DL 32.3-36.5 gjbz=400) RED CELL DISTRIBUTION WIDTH (BEAKER) (test 19.9 % 11.6-14.4 eoby=297) PLATELET COUNT (BEAKER) (test cfbg=890) 65 K/CU MM 150-450 MEAN PLATELET VOLUME (BEAKER) (test ozqj=729) 10.6 fL 9.4-12.4 NUCLEATED RED BLOOD CELLS (BEAKER) (test 2 /100 WBC 0-0 wmhz=309) NEUTROPHILS RELATIVE PERCENT (BEAKER) (test 86 % ffvg=160) LYMPHOCYTES RELATIVE PERCENT (BEAKER) (test 5 % fmyn=546) MONOCYTES RELATIVE PERCENT (BEAKER) (test 8 % alto=634) EOSINOPHILS RELATIVE PERCENT (BEAKER) (test 0 % btjd=074) BASOPHILS RELATIVE PERCENT (BEAKER) (test 0 % eqbg=431) NEUTROPHILS ABSOLUTE COUNT (BEAKER) (test 6.31 K/ L 1.78-5.38 nirg=850) LYMPHOCYTES ABSOLUTE COUNT (BEAKER) (test 0.39 K/ L 1.32-3.57 idel=371) MONOCYTES ABSOLUTE COUNT (BEAKER) (test fpui=758) 0.56 K/ L 0.30-0.82 EOSINOPHILS ABSOLUTE COUNT (BEAKER) (test 0.00 K/ L 0.04-0.54 kjkq=675) BASOPHILS ABSOLUTE COUNT (BEAKER) (test hhdz=292) 0.01 K/ L 0.01-0.08 IMMATURE GRANULOCYTES-RELATIVE PERCENT (BEAKER) 2 % 0-1 (test kglv=8957) BASIC METABOLIC [id number] 16:45:00 Test Item Value Reference Range Comments SODIUM (BEAKER) (test 138 meq/L 136-145 wdcj=713) POTASSIUM (BEAKER) (test 4.5 meq/L 3.5-5.1 ndtq=262) CHLORIDE (BEAKER) (test 103 meq/L 98-107 wepe=123) CO2 (BEAKER) (test 26 meq/L 22-29 bwjq=232) BLOOD UREA NITROGEN 13 mg/dL 7-21 (BEAKER) (test qizc=005) CREATININE (BEAKER) (test 2.97 mg/dL 0.57-1.25 brkb=252) GLUCOSE RANDOM (BEAKER) 95 mg/dL 70-105 (test hxno=344) CALCIUM (BEAKER) (test 8.7 mg/dL 8.4-10.2 vcew=251) EGFR (BEAKER) (test 22 mL/min/1.73 sq m ESTIMATED GFR IS NOT opsa=8297) ACCURATE CREATININE CLEARANCE IN PREDICTING GLOMERULAR FILTRATION RATE. ESTIMATED GFR IS NOT APPLICABLE FOR DIALYSIS PATIENTS. Specimen moderately ictericLACTIC ACID, ARTERIAL, WHOLE [id number] 16:40:00 Test Item Value Reference Range Comments LACTATE BLOOD ARTERIAL (2) (BEAKER) (test 4.5 mmol/L 0.5-2.2 imdz=5030) Effective 09/15/2015: Units/Reference Range ChangeNew: 0.5-2.2 mmol/L Previous: 5 -20 mg/dLSpecimen moderately ictericCALCIUM, [id number] 16:29:00 Test Item Value Reference Range Comments CALCIUM IONIZED (BEAKER) (test zalr=663) 1.10 mmol/L 1.12-1.27 PH, BLOOD (BEAKER) (test daco=5300) 7.42 PROTHROMBIN [id number] 16:27:00 Test Item Value Reference Range Comments PROTIME (BEAKER) (test ejft=512) 30.0 seconds 11.7-14.7 INR (BEAKER) (test azhk=173) 2.9 <=5.9 RECOMMENDED COUMADIN/WARFARIN INR THERAPY RANGESSTANDARD DOSE: 2.0 - 3.0 Includes: PROPHYLAXIS forvenous thrombosis, systemic embolization; TREATMENT for venous thrombosis and/or pulmonary embolus.HIGH RISK: Target INR is 2.5-3.5 for patients with mechanical heart valves.[id number] 16:27:00 Test Item Value Reference Range Comments FIBRINOGEN LEVEL (BEAKER) (test abak=011) 237 mg/dl 225-434 CT BRAIN WITHOUT IV CONTRAST - [id number] 15:28:00Reason for exam:-> low platelets new pupillary [...] Verified Date/Time: 01/26/2018 15: 28:44 Reading Location: [address] Neuro Reading Room POCT-GLUCOSE [id number] 12:15:00 Test Item Value Reference Range Comments POC-GLUCOSE METER (BEAKER) 78 mg/dL 70-[address] [facility] [address] [facility] (test iqmm=6199) [facility] [address] CBC W/PLT COUNT & AUTO [id number] 12:12:00 Test Item Value Reference Range Comments WHITE BLOOD CELL COUNT (BEAKER) (test avva=401) 6.7 K/ L 3.5-10.5 RED BLOOD CELL COUNT (BEAKER) (test otaf=244) 2.70 M/ L 4.63-6.08 HEMOGLOBIN (BEAKER) (test xiov=520) 8.3 GM/DL 13.7-17.5 HEMATOCRIT (BEAKER) (test xiwn=297) 25.5 % 40.1-51.0 MEAN CORPUSCULAR VOLUME (BEAKER) (test cnvx=601) 94.4 fL 79.0-92.2 MEAN CORPUSCULAR HEMOGLOBIN (BEAKER) (test 30.7 pg 25.7-32.2 bnho=222) MEAN CORPUSCULAR HEMOGLOBIN CONC (BEAKER) (test 32.5 GM/DL 32.3-36.5 idcw=387) RED CELL DISTRIBUTION WIDTH (BEAKER) (test 20.0 % 11.6-14.4 lwsv=468) PLATELET COUNT (BEAKER) (test vfhz=298) 60 K/CU MM 150-450 MEAN PLATELET VOLUME (BEAKER) (test plhu=713) 10.6 fL 9.4-12.4 NUCLEATED RED BLOOD CELLS (BEAKER) (test 1 /100 WBC 0-0 jrag=157) [id number] 12:05:00 Test Item Value Reference Range Comments FIBRINOGEN LEVEL (BEAKER) (test lmsq=134) 268 mg/dl 225-434 PROTHROMBIN [id number] 12:05:00 Test Item Value Reference Range Comments PROTIME (BEAKER) (test rcgv=907) 27.1 seconds 11.7-14.7 INR (BEAKER) (test cleo=083) 2.5 <=5.9 RECOMMENDED COUMADIN/WARFARIN INR THERAPY RANGESSTANDARD DOSE: 2.0 - 3.0 Includes: PROPHYLAXIS forvenous thrombosis, systemic embolization; TREATMENT for venous thrombosis and/or pulmonary embolus.HIGH RISK: Target INR is 2.5-3.5 for patients with mechanical heart valves.LACTIC ACID, ARTERIAL, WHOLE [id number] 11:55:00 Test Item Value Reference Range Comments LACTATE BLOOD ARTERIAL (2) (BEAKER) (test 5.1 mmol/L 0.5-2.2 nudp=6306) Effective 09/15/2015: Units/Reference Range ChangeNew: 0.5-2.2 mmol/L Previous: 5 -20 mg/dLSpecimen moderately [id number] 10:33:00 Test Item Value Reference Range Comments AMMONIA (BEAKER) (test udfv=847) 146 mol/L 18-72 CBC W/PLT COUNT & AUTO [id number] 09:21:00 Test Item Value Reference Range Comments WHITE BLOOD CELL COUNT (BEAKER) (test ijsq=463) 6.5 K/ L 3.5-10.5 RED BLOOD CELL COUNT (BEAKER) (test ulrb=579) 2.65 M/ L 4.63-6.08 HEMOGLOBIN (BEAKER) (test ehzo=718) 8.1 GM/DL 13.7-17.5 HEMATOCRIT (BEAKER) (test sudn=368) 24.9 % 40.1-51.0 MEAN CORPUSCULAR VOLUME (BEAKER) (test eqtg=088) 94.0 fL 79.0-92.2 MEAN CORPUSCULAR HEMOGLOBIN (BEAKER) (test 30.6 pg 25.7-32.2 vzdi=231) MEAN CORPUSCULAR HEMOGLOBIN CONC (BEAKER) (test 32.5 GM/DL 32.3-36.5 fnva=989) RED CELL DISTRIBUTION WIDTH (BEAKER) (test 19.9 % 11.6-14.4 hewj=413) PLATELET COUNT (BEAKER) (test vtri=417) 68 K/CU MM 150-450 MEAN PLATELET VOLUME (BEAKER) (test qova=689) 10.5 fL 9.4-12.4 NUCLEATED RED BLOOD CELLS (BEAKER) (test 1 /100 WBC 0-0 rhpp=688) (CELLAVISION MANUAL DIFF)2018-01-26 09:21:00 Test Item Value Reference Range Comments NEUTROPHILS - REL (CELLAVISION)(BEAKER) (test 75 % icuo=2474) LYMPHOCYTES - REL (CELLAVISION)(BEAKER) (test 3 % vvpc=3156) MONOCYTES - REL (CELLAVISION)(BEAKER) (test 2 % cnof=5272) BANDS - REL (CELLAVISION)(BEAKER) (test 20 % 0-10 gfqe=2075) NEUTROPHILS - ABS (CELLAVISION)(BEAKER) (test 4.88 K/ul 1.78-5.38 knqo=3520) LYMPHOCYTES - ABS (CELLAVISION)(BEAKER) (test 0.20 K/ul 1.32-3.57 kakp=1105) MONOCYTES - ABS (CELLAVISION)(BEAKER) (test 0.13 K/uL 0.30-0.82 ryrq=5358) BANDS - ABS (CELLAVISION)(BEAKER) (test 1.30 K/uL 0.00-0.80 etzk=4053) TOTAL COUNTED (BEAKER) (test ibhf=0608) 100 MANUAL NRBC PER 100 CELLS (BEAKER) (test 1 /100 WBC 0-0 okbq=2124) WBC MORPHOLOGY (BEAKER) (test bxbf=614) Normal PLT MORPHOLOGY (BEAKER) (test xyts=471) Normal POLYCHROMATOPHILLIC RBCS(BEAKER) (test hysd=630) 1+ few ANISOCYTOSIS (BEAKER) (test kdum=402) 1+ few POIKILOCYTES (BEAKER) (test lmnr=670) 1+ few ARTIFACT (CELLAVISION)(BEAKER) (test mbua=6392) Present PLATELET CONCENTRATION (CELLAVISION)(BEAKER) Decreased (test ardb=8727) Received comment: User comments: Slide comments:BASIC METABOLIC [id number] 09:09:00 Test Item Value Reference Range Comments SODIUM (BEAKER) (test 142 meq/L 136-145 hxbb=491) POTASSIUM (BEAKER) (test 4.6 meq/L 3.5-5.1 nhmg=693) CHLORIDE (BEAKER) (test 104 meq/L 98-107 fkkm=568) CO2 (BEAKER) (test 28 meq/L 22-29 uyxj=796) BLOOD UREA NITROGEN 14 mg/dL 7-21 (BEAKER) (test ksdx=417) CREATININE (BEAKER) (test 3.12 mg/dL 0.57-1.25 akds=356) GLUCOSE RANDOM (BEAKER) 80 mg/dL 70-105 (test xzph=023) CALCIUM (BEAKER) (test 9.0 mg/dL 8.4-10.2 jefp=548) EGFR (BEAKER) (test 21 mL/min/1.73 sq m ESTIMATED GFR IS NOT vcmd=4454) ACCURATE CREATININE CLEARANCE IN PREDICTING GLOMERULAR FILTRATION RATE. ESTIMATED GFR IS NOT APPLICABLE FOR DIALYSIS PATIENTS. Specimen moderately [id number] 09:04:00 Test Item Value Reference Range Comments PHOSPHORUS (BEAKER) (test yxuj=856) 4.4 mg/dL 2.3-4.7 [id number] 09:04:00 Test Item Value Reference Range Comments MAGNESIUM (BEAKER) (test rrmu=579) 1.4 mg/dL 1.6-2.6 [id number] 09:03:00 Test Item Value Reference Range Comments FIBRINOGEN LEVEL (BEAKER) (test gwvl=340) 254 mg/dl 225-434 PROTHROMBIN [id number] 09:01:00 Test Item Value Reference Range Comments PROTIME (BEAKER) (test ncxj=058) 26.1 seconds 11.7-14.7 INR (BEAKER) (test ynur=059) 2.4 <=5.9 RECOMMENDED COUMADIN/WARFARIN INR THERAPY RANGESSTANDARD DOSE: 2.0 - 3.0 Includes: PROPHYLAXIS forvenous thrombosis, systemic embolization; TREATMENT for venous thrombosis and/or pulmonary embolus.HIGH RISK: Target INR is 2.5-3.5 for patients with mechanical heart valves.PH, [id number] 08:23:00 Test Item Value Reference Range Comments PH ARTERIAL (BEAKER) (test yqoc=681) 7.45 7.35-7.45 CALCIUM, [id number] 08:22:00 Test Item Value Reference Range Comments CALCIUM IONIZED (BEAKER) (test sjij=592) 1.12 mmol/L 1.12-1.27 PH, BLOOD (BEAKER) (test zyhd=4993) 7.45 SPUTUM CULTURE + GRAM [id number] 07:53:00 Test Item Value Reference Range Comments CULTURE (BEAKER) (test <1+ Normal respiratory kody lzio=7980) present GRAM STAIN RESULT (BEAKER) 1+ WBCs (test cjrl=9835) GRAM STAIN RESULT (BEAKER) 0-5 epithelial cells (test dbcs=14953) GRAM STAIN RESULT (BEAKER) <1+ gram positive cocci in pairs (test fcmc=58685) GRAM STAIN RESULT (BEAKER) <1+ gram negative rods (test tqkh=951510) COMPREHENSIVE METABOLIC [id number] 06:47:00 Test Item Value Reference Range Comments TOTAL PROTEIN (BEAKER) 5.3 gm/dL 6.0-8.3 (test forc=249) ALBUMIN (BEAKER) (test 2.8 g/dL 3.5-5.0 oool=9577) ALKALINE PHOSPHATASE 654 U/L 40-150 (BEAKER) (test twnf=089) BILIRUBIN TOTAL (BEAKER) 8.0 mg/dL 0.2-1.2 (test wzda=960) SODIUM (BEAKER) (test 141 meq/L 136-145 pxfa=348) POTASSIUM (BEAKER) (test 4.6 meq/L 3.5-5.1 tyjg=133) CHLORIDE (BEAKER) (test 104 meq/L 98-107 yejg=906) CO2 (BEAKER) (test 28 meq/L 22-29 wyiv=164) BLOOD UREA NITROGEN 16 mg/dL 7-21 (BEAKER) (test evsy=896) CREATININE (BEAKER) (test 3.36 mg/dL 0.57-1.25 dewf=302) GLUCOSE RANDOM (BEAKER) 79 mg/dL 70-105 (test njnm=327) CALCIUM (BEAKER) (test 9.1 mg/dL 8.4-10.2 pddf=239) AST (SGOT) (BEAKER) (test U/L 5-34 GML=1471 eier=993) ALT (SGPT) (BEAKER) (test 1479 U/L 6-55 rmlj=764) EGFR (BEAKER) (test 19 mL/min/1.73 sq m ESTIMATED GFR IS NOT ybzj=0075) ACCURATE CREATININE CLEARANCE IN PREDICTING GLOMERULAR FILTRATION RATE. ESTIMATED GFR IS NOT APPLICABLE FOR DIALYSIS PATIENTS. Specimen moderately ictericBLOOD GAS, [id number] 05:11:00 Test Item Value Reference Range Comments PH ARTERIAL (BEAKER) (test fvzb=985) 7.47 7.35-7.45 PCO2 ARTERIAL (BEAKER) (test nyni=819) 35 mmHg 35-45 PO2 ARTERIAL (BEAKER) (test ltvd=729) 148 mmHg 80-90 O2 SATURATION ARTERIAL (BEAKER) (test ufkq=067) 99.1 % 96.0-97.0 HCO3 ARTERIAL (BEAKER) (test bmmd=845) 25 mmol/L 21-29 BASE EXCESS ARTERIAL (BEAKER) (test twme=932) 0.8 mmol/L -2.0-3.0 PATIENT TEMPERATURE (BEAKER) (test dveh=6401) 36.5 C FIO2 (BEAKER) (test fxuy=0001) 60.0 % PROTHROMBIN [id number] 04:46:00 Test Item Value Reference Range Comments PROTIME (BEAKER) (test vgyx=537) 23.8 seconds 11.7-14.7 INR (BEAKER) (test hbbi=007) 2.1 <=5.9 RECOMMENDED COUMADIN/WARFARIN INR THERAPY RANGESSTANDARD DOSE: 2.0 - 3.0 Includes: PROPHYLAXIS forvenous thrombosis, systemic embolization; TREATMENT for venous thrombosis and/or pulmonary embolus.HIGH RISK: Target INR is 2.5-3.5 for patients with mechanical heart valves.[id number] 04:46:00 Test Item Value Reference Range Comments FIBRINOGEN LEVEL (BEAKER) (test thtr=698) 269 mg/dl 225-434 LACTIC ACID, VENOUS, WHOLE [id number] 04:43:00 Test Item Value Reference Range Comments LACTATE BLOOD VENOUS (2) (BEAKER) (test 4.9 mmol/L 0.5-2.2 uzza=6165) Effective 09/15/2015: Units/Reference Range ChangeNew: 0.5-2.2 mmol/L Previous: 5 -20 mg/dLSpecimen moderately ictericRAD, CHEST, 1 VIEW, NON [id number] 03:59 :00Reason for exam:->intubatedShould this be performed at the bedside?-> YesFINAL REPORT CLINICAL INDICATION: Support lines. Comparison: 01/25/2018 The cardiomediastinal contours are stable. Central pulmonary vascular prominence and bilateral parenchymalopacities are unchanged. There is no pneumothorax. An endotracheal tube is stable in position. Signed: Gaurav Cunningham MDReport Verified Date/Time: 01/26/2018 03:59:13 Reading Location : [address] Reading Room CBC W/PLT COUNT & AUTO [id number] 00:47:00 Test Item Value Reference Range Comments WHITE BLOOD CELL COUNT (BEAKER) (test dbpd=593) 6.1 K/ L 3.5-10.5 RED BLOOD CELL COUNT (BEAKER) (test hjaq=850) 2.59 M/ L 4.63-6.08 HEMOGLOBIN (BEAKER) (test ykzk=773) 7.9 GM/DL 13.7-17.5 HEMATOCRIT (BEAKER) (test yuzi=249) 24.1 % 40.1-51.0 MEAN CORPUSCULAR VOLUME (BEAKER) (test lkpd=302) 93.1 fL 79.0-92.2 MEAN CORPUSCULAR HEMOGLOBIN (BEAKER) (test 30.5 pg 25.7-32.2 brgq=013) MEAN CORPUSCULAR HEMOGLOBIN CONC (BEAKER) (test 32.8 GM/DL 32.3-36.5 nbnl=480) RED CELL DISTRIBUTION WIDTH (BEAKER) (test 19.9 % 11.6-14.4 nqny=795) PLATELET COUNT (BEAKER) (test zvkc=792) 35 K/CU MM 150-450 MEAN PLATELET VOLUME (BEAKER) (test miih=194) 11.0 fL 9.4-12.4 NUCLEATED RED BLOOD CELLS (BEAKER) (test 1 /100 WBC 0-0 boyr=375) (CELLAVISION MANUAL DIFF)2018-01-26 00:47:00 Test Item Value Reference Range Comments NEUTROPHILS - REL (CELLAVISION)(BEAKER) (test 73 % ipbv=0645) LYMPHOCYTES - REL (CELLAVISION)(BEAKER) (test 2 % cpho=8597) MONOCYTES - REL (CELLAVISION)(BEAKER) (test 2 % hswf=0279) BANDS - REL (CELLAVISION)(BEAKER) (test vyln=0227) 23 % 0-10 NEUTROPHILS - ABS (CELLAVISION)(BEAKER) (test 4.45 K/ul 1.78-5.38 yyih=4639) LYMPHOCYTES - ABS (CELLAVISION)(BEAKER) (test 0.12 K/ul 1.32-3.57 igvv=3876) MONOCYTES - ABS (CELLAVISION)(BEAKER) (test 0.12 K/uL 0.30-0.82 vevl=6835) BANDS - ABS (CELLAVISION)(BEAKER) (test fjcb=1492) 1.40 K/uL 0.00-0.80 TOTAL COUNTED (BEAKER) (test scsj=9872) 100 RBC MORPHOLOGY (BEAKER) (test ijji=129) Normal PLT MORPHOLOGY (BEAKER) (test ghye=064) Normal VACUOLATED NEUTROPHILS (BEAKER) (test zvme=765) Present ARTIFACT (CELLAVISION)(BEAKER) (test argv=7916) Present PLATELET CONCENTRATION (CELLAVISION)(BEAKER) (test Decreased aojz=0698) Received comment: User comments: Slide comments:[id number] 00:25:00 Test Item Value Reference Range Comments FIBRINOGEN LEVEL (BEAKER) (test lyiq=492) 253 mg/dl 225-434 BASIC METABOLIC [id number] 00:21:00 Test Item Value Reference Range Comments SODIUM (BEAKER) (test 145 meq/L 136-145 faaf=848) POTASSIUM (BEAKER) (test 4.6 meq/L 3.5-5.1 gedq=706) CHLORIDE (BEAKER) (test 105 meq/L 98-107 ykqx=977) CO2 (BEAKER) (test 28 meq/L 22-29 wuwe=837) BLOOD UREA NITROGEN 17 mg/dL 7-21 (BEAKER) (test cehj=111) CREATININE (BEAKER) (test 3.55 mg/dL 0.57-1.25 tvsu=600) GLUCOSE RANDOM (BEAKER) 76 mg/dL 70-105 (test nkoc=406) CALCIUM (BEAKER) (test 8.7 mg/dL 8.4-10.2 bkiq=826) EGFR (BEAKER) (test 18 mL/min/1.73 sq m ESTIMATED GFR IS NOT ikxn=6713) ACCURATE CREATININE CLEARANCE IN PREDICTING GLOMERULAR FILTRATION RATE. ESTIMATED GFR IS NOT APPLICABLE FOR DIALYSIS PATIENTS. Specimen moderately ictericPROTHROMBIN TIME/[id number] 00:20:00 Test Item Value Reference Range Comments PROTIME (BEAKER) (test dfht=148) 24.0 seconds 11.7-14.7 INR (BEAKER) (test gdaw=007) 2.2 <=5.9 RECOMMENDED COUMADIN/WARFARIN INR THERAPY RANGESSTANDARD DOSE: 2.0 - 3.0 Includes: PROPHYLAXIS forvenous thrombosis, systemic embolization; TREATMENT for venous thrombosis and/or pulmonary embolus.HIGH RISK: Target INR is 2.5-3.5 for patients with mechanical heart valves.CALCIUM, [id number] 00:12:00 Test Item Value Reference Range Comments CALCIUM IONIZED (BEAKER) (test yrqm=497) 1.06 mmol/L 1.12-1.27 PH, BLOOD (BEAKER) (test yuwy=0201) 7.45 [id number] 20:24:00 Test Item Value Reference Range Comments MAGNESIUM (BEAKER) (test ffgd=943) 0.9 mg/dL 1.6-2.6 [id number] 20:20:00 Test Item Value Reference Range Comments PHOSPHORUS (BEAKER) (test twnq=944) 4.8 mg/dL 2.3-4.7 PROTHROMBIN [id number] 20:18:00 Test Item Value Reference Range Comments PROTIME (BEAKER) (test woli=449) 26.6 seconds 11.7-14.7 INR (BEAKER) (test rmso=243) 2.5 <=5.9 RECOMMENDED COUMADIN/WARFARIN INR THERAPY RANGESSTANDARD DOSE: 2.0 - 3.0 Includes: PROPHYLAXIS forvenous thrombosis, systemic embolization; TREATMENT for venous thrombosis and/or pulmonary embolus.HIGH RISK: Target INR is 2.5-3.5 for patients with mechanical heart valves.[id number] 20:18:00 Test Item Value Reference Range Comments FIBRINOGEN LEVEL (BEAKER) (test abal=296) 181 mg/dl 225-434 PH, [id number] 19:59:00 Test Item Value Reference Range Comments PH ARTERIAL (BEAKER) (test wmak=985) 7.45 7.35-7.45 CBC W/PLT COUNT & AUTO [id number] 18:43:00 Test Item Value Reference Range Comments WHITE BLOOD CELL COUNT (BEAKER) (test pzsv=257) 6.1 K/ L 3.5-10.5 RED BLOOD CELL COUNT (BEAKER) (test alta=568) 2.69 M/ L 4.63-6.08 HEMOGLOBIN (BEAKER) (test ffnf=282) 8.3 GM/DL 13.7-17.5 HEMATOCRIT (BEAKER) (test czgu=799) 25.1 % 40.1-51.0 MEAN CORPUSCULAR VOLUME (BEAKER) (test bsjn=859) 93.3 fL 79.0-92.2 MEAN CORPUSCULAR HEMOGLOBIN (BEAKER) (test 30.9 pg 25.7-32.2 jhdw=249) MEAN CORPUSCULAR HEMOGLOBIN CONC (BEAKER) (test 33.1 GM/DL 32.3-36.5 ygwb=780) RED CELL DISTRIBUTION WIDTH (BEAKER) (test 19.9 % 11.6-14.4 tfwh=600) PLATELET COUNT (BEAKER) (test ybtz=744) 25 K/CU MM 150-450 MEAN PLATELET VOLUME (BEAKER) (test gnnx=593) 11.7 fL 9.4-12.4 NUCLEATED RED BLOOD CELLS (BEAKER) (test 0 /100 WBC 0-0 oksz=038) NEUTROPHILS RELATIVE PERCENT (BEAKER) (test 79 % mzpv=653) LYMPHOCYTES RELATIVE PERCENT (BEAKER) (test 12 % nlep=637) MONOCYTES RELATIVE PERCENT (BEAKER) (test 6 % lfaf=043) EOSINOPHILS RELATIVE PERCENT (BEAKER) (test 1 % faqg=835) BASOPHILS RELATIVE PERCENT (BEAKER) (test 0 % vhwz=582) NEUTROPHILS ABSOLUTE COUNT (BEAKER) (test 4.77 K/ L 1.78-5.38 cmjg=977) LYMPHOCYTES ABSOLUTE COUNT (BEAKER) (test 0.75 K/ L 1.32-3.57 fxpa=105) MONOCYTES ABSOLUTE COUNT (BEAKER) (test odiy=975) 0.38 K/ L 0.30-0.82 EOSINOPHILS ABSOLUTE COUNT (BEAKER) (test 0.05 K/ L 0.04-0.54 vjqo=443) BASOPHILS ABSOLUTE COUNT (BEAKER) (test ffxb=790) 0.02 K/ L 0.01-0.08 IMMATURE GRANULOCYTES-RELATIVE PERCENT (BEAKER) 1 % 0-1 (test iiog=4561) BASIC METABOLIC [id number] 17:44:00 Test Item Value Reference Range Comments SODIUM (BEAKER) (test 151 meq/L 136-145 dujq=594) POTASSIUM (BEAKER) (test 4.5 meq/L 3.5-5.1 tlcd=857) CHLORIDE (BEAKER) (test 107 meq/L 98-107 udcr=186) CO2 (BEAKER) (test 29 meq/L 22-29 bfvj=727) BLOOD UREA NITROGEN 20 mg/dL 7-21 (BEAKER) (test rthk=633) CREATININE (BEAKER) (test 4.38 mg/dL 0.57-1.25 jjff=098) GLUCOSE RANDOM (BEAKER) 91 mg/dL 70-105 (test efen=033) CALCIUM (BEAKER) (test 7.5 mg/dL 8.4-10.2 txcw=162) EGFR (BEAKER) (test 14 mL/min/1.73 sq m ESTIMATED GFR IS NOT cbyn=1777) ACCURATE CREATININE CLEARANCE IN PREDICTING GLOMERULAR FILTRATION RATE. ESTIMATED GFR IS NOT APPLICABLE FOR DIALYSIS PATIENTS. Specimen moderately ictericPROTHROMBIN TIME/[id number] 17:34:00 Test Item Value Reference Range Comments PROTIME (BEAKER) (test svfu=254) 26.6 seconds 11.7-14.7 INR (BEAKER) (test izpn=987) 2.5 <=5.9 RECOMMENDED COUMADIN/WARFARIN INR THERAPY RANGESSTANDARD DOSE: 2.0 - 3.0 Includes: PROPHYLAXIS forvenous thrombosis, systemic embolization; TREATMENT for venous thrombosis and/or pulmonary embolus.HIGH RISK: Target INR is 2.5-3.5 for patients with mechanical heart valves.[id number] 17:34:00 Test Item Value Reference Range Comments FIBRINOGEN LEVEL (BEAKER) (test thbx=186) 197 mg/dl 225-434 CALCIUM, [id number] 17:23:00 Test Item Value Reference Range Comments CALCIUM IONIZED (BEAKER) (test qvfj=684) 0.87 mmol/L 1.12-1.27 PH, BLOOD (BEAKER) (test omag=0463) 7.44 CBC W/PLT COUNT & AUTO [id number] 15:16:00 Test Item Value Reference Range Comments WHITE BLOOD CELL COUNT (BEAKER) (test vpzx=941) 6.1 K/ L 3.5-10.5 RED BLOOD CELL COUNT (BEAKER) (test sumg=681) 2.71 M/ L 4.63-6.08 HEMOGLOBIN (BEAKER) (test nvve=218) 8.3 GM/DL 13.7-17.5 HEMATOCRIT (BEAKER) (test jijh=942) 25.4 % 40.1-51.0 MEAN CORPUSCULAR VOLUME (BEAKER) (test guqx=382) 93.7 fL 79.0-92.2 MEAN CORPUSCULAR HEMOGLOBIN (BEAKER) (test 30.6 pg 25.7-32.2 eiwe=621) MEAN CORPUSCULAR HEMOGLOBIN CONC (BEAKER) (test 32.7 GM/DL 32.3-36.5 hkbt=426) RED CELL DISTRIBUTION WIDTH (BEAKER) (test 19.7 % 11.6-14.4 ubdu=546) PLATELET COUNT (BEAKER) (test djmq=488) 32 K/CU MM 150-450 MEAN PLATELET VOLUME (BEAKER) (test bnpn=926) 11.2 fL 9.4-12.4 NUCLEATED RED BLOOD CELLS (BEAKER) (test 0 /100 WBC 0-0 fnsj=800) (CELLAVISION MANUAL DIFF)2018-01-25 15:16:00 Test Item Value Reference Range Comments NEUTROPHILS - REL (CELLAVISION)(BEAKER) (test 79 % xcqq=0641) LYMPHOCYTES - REL (CELLAVISION)(BEAKER) (test 14 % rqas=1791) MONOCYTES - REL (CELLAVISION)(BEAKER) (test 1 % gqsy=4260) EOSINOPHILS - REL (CELLAVISION)(BEAKER) (test 1 % icrd=7340) BASOPHILS - REL (CELLAVISION)(BEAKER) (test 1 % jgdg=9074) BANDS - REL (CELLAVISION)(BEAKER) (test 4 % 0-10 nnoq=7417) NEUTROPHILS - ABS (CELLAVISION)(BEAKER) (test 4.82 K/ul 1.78-5.38 ncrz=2518) LYMPHOCYTES - ABS (CELLAVISION)(BEAKER) (test 0.85 K/ul 1.32-3.57 xewg=5403) MONOCYTES - ABS (CELLAVISION)(BEAKER) (test 0.06 K/uL 0.30-0.82 wcny=5787) EOSINOPHILS - ABS (CELLAVISION)(BEAKER) (test 0.06 K/uL 0.04-0.54 qmia=0444) BASOPHILS - ABS (CELLAVISION)(BEAKER) (test 0.06 K/uL 0.01-0.08 hthc=5450) BANDS - ABS (CELLAVISION)(BEAKER) (test 0.24 K/uL 0.00-0.80 ccqo=6506) TOTAL COUNTED (BEAKER) (test stwv=2558) 100 MANUAL NRBC PER 100 CELLS (BEAKER) (test 1 /100 WBC 0-0 ecoi=3421) WBC MORPHOLOGY (BEAKER) (test msuw=159) Normal GIANT PLATELETS (BEAKER) (test hlgb=238) Present ANISOCYTOSIS (BEAKER) (test fuya=794) 1+ few MICROCYTES (BEAKER) (test ojhq=058) 1+ few ELLIPTOCYTES (BEAKER) (test lumu=377) 1+ few ARTIFACT (CELLAVISION)(BEAKER) (test jjlu=7404) Present PLATELET CONCENTRATION (CELLAVISION)(BEAKER) Decreased (test vgmy=2064) Received comment: User comments: Slide comments:JAZMINE [id number] 14:35: 00Reason for exam:->GI bleedFINAL REPORT Transjugular intrahepatic portosystemic shunt, 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 History: Cirrhosis, portal hypertension, GI bleed. Modality: Fluoroscopy. Sedation: General anesthesia was utilized. The vital signs were monitored throughout the procedure by anesthesia and remained stable. Cafe Assistant: Rafael Evangelista MD. Buckle Frame Shaper: MD Kristina. Approach: Right internal jugular vein [...] portosystemic shunt with general anesthesia. Signed: Rafael Evangelista MDReport Verified Date/Time: 01/25/2018 14:35:57 Reading Location: [place] [address] Angio Body Reading Room Electronicallysigned by: RAFAEL EVANGELISTA on 01/25/2018 02:35 PMURINALYSIS W/ [id number] 14:20:00 Test Item Value Reference Range Comments COLOR (BEAKER) (test dmlb=726) Dark Yellow CLARITY (BEAKER) (test qlfk=159) Cloudy SPECIFIC GRAVITY UA (BEAKER) (test lyqk=929) 1.046 1.001-1.035 PH UA (BEAKER) (test wkly=147) 5.5 5.0-8.0 PROTEIN UA (BEAKER) (test nkro=314) 70 mg/dL Negative GLUCOSE UA (BEAKER) (test sadi=574) Negative Negative KETONES UA (BEAKER) (test ayli=363) Trace Negative BILIRUBIN UA (BEAKER) (test pecm=036) Positive Negative BLOOD UA (BEAKER) (test uksl=809) Large Negative NITRITE UA (BEAKER) (test oquf=533) Negative Negative LEUKOCYTE ESTERASE UA (BEAKER) (test pnxu=887) Negative Negative UROBILINOGEN UA (BEAKER) (test jbey=140) 0.2 mg/dL 0.2-1.0 RBC UA (BEAKER) (test oiyo=823) 3 /HPF WBC UA (BEAKER) (test fclk=721) 26 /HPF MUCUS (BEAKER) (test ijwn=7852) Occasional SQUAMOUS EPITHELIAL (BEAKER) (test rvgl=775) 3 /HPF CRYSTALS, URINE (BEAKER) (test ywiy=6948) Occasional YEAST (BEAKER) (test eveg=6109) Few SOURCE(BEAKER) (test koiq=3037) Urine, [place] THROMBOELASTOGRAPH (TEG)2018-01-25 14:10:00 Test Item Value Reference Range Comments TEG ACTIVATED CLOTTING TIME (BEAKER) (test 9.2 minutes 4.0-7.0 doxw=1212) TEG FIBRINOGEN ACTIVITY (BEAKER) (test 59.6 degrees 61.0-73.0 bchk=0857) TEG PLT. AGGREGATION (BEAKER) (test xpyl=9268) 43.9 MM 55.0-65.0 TEG FIBRINOLYSIS (BEAKER) (test zsmn=7039) 0.0 % 0.0-5.0 TGH ACTIVATED CLOTTING TIME (BEAKER) (test 8.2 minutes 4.0-7.0 lcev=7651) TGH FIBRINOGEN ACTIVITY (BEAKER) (test 62.1 degrees 61.0-73.0 upfe=0218) TGH PLT. AGGREGATION (BEAKER) (test jqgt=5689) 41.1 MM 55.0-65.0 TGH FIBRINOLYSIS (BEAKER) (test lzzl=7625) 0.0 % 0.0-5.0 [id number] 13:32:00 Test Item Value Reference Range Comments CORTISOL, TOTAL (BEAKER) (test wqqb=2058) 6.3 ug/dL 3.7-19.4 RAD, CHEST, 1 VIEW, NON [id number] 13:10:00Reason for exam:->post trasfusion, low m8Xlptct this be performed at the bedside?->YesFINAL REPORT [...] Verified Date/Time: 01/25/2018 13:10:13 Reading Location : [address] Consult Reading Room [facility] METABOLIC [id number] 12:22:00 Test Item Value Reference Range Comments SODIUM (BEAKER) (test 149 meq/L 136-145 vehm=376) POTASSIUM (BEAKER) (test 5.0 meq/L 3.5-5.1 Specimen slightly ykok=112) hemolyzed CHLORIDE (BEAKER) (test 105 meq/L 98-107 reff=332) CO2 (BEAKER) (test 29 meq/L 22-29 bunt=060) BLOOD UREA NITROGEN 22 mg/dL 7-21 (BEAKER) (test iwuj=100) CREATININE (BEAKER) (test 4.27 mg/dL 0.57-1.25 Specimen slightly cdij=963) hemolyzed GLUCOSE RANDOM (BEAKER) 159 mg/dL 70-105 (test pmqe=312) CALCIUM (BEAKER) (test 6.6 mg/dL 8.4-10.2 puvy=632) EGFR (BEAKER) (test 15 mL/min/1.73 sq m ESTIMATED GFR IS NOT reps=9015) ACCURATE CREATININE CLEARANCE IN PREDICTING GLOMERULAR FILTRATION RATE. ESTIMATED GFR IS NOT APPLICABLE FOR DIALYSIS PATIENTS. Specimen moderately [id number] 12:12:00 Test Item Value Reference Range Comments FIBRINOGEN LEVEL (BEAKER) (test czau=314) 143 mg/dl 225-434 PROTHROMBIN [id number] 12:02:00 Test Item Value Reference Range Comments PROTIME (BEAKER) (test lpqp=174) 29.9 seconds 11.7-14.7 INR (BEAKER) (test fzis=086) 2.9 <=5.9 RECOMMENDED COUMADIN/WARFARIN INR THERAPY RANGESSTANDARD DOSE: 2.0 - 3.0 Includes: PROPHYLAXIS forvenous thrombosis, systemic embolization; TREATMENT for venous thrombosis and/or pulmonary embolus.HIGH RISK: Target INR is 2.5-3.5 for patients with mechanical heart valves.BLOOD GAS, [id number] 11:42:00 Test Item Value Reference Range Comments PH ARTERIAL (BEAKER) (test fdgx=704) 7.43 7.35-7.45 PCO2 ARTERIAL (BEAKER) (test ymld=209) 50 mmHg 35-45 PO2 ARTERIAL (BEAKER) (test mnjk=342) 71 mmHg 80-90 O2 SATURATION ARTERIAL (BEAKER) (test aofb=064) 94.0 % 96.0-97.0 HCO3 ARTERIAL (BEAKER) (test kamc=584) 32 mmol/L 21-29 BASE EXCESS ARTERIAL (BEAKER) (test vrvq=113) 6.7 mmol/L -2.0-3.0 PATIENT TEMPERATURE (BEAKER) (test ytiu=7201) 37.5 C FIO2 (BEAKER) (test qxol=2121) 60.0 % BLOOD GAS, [id number] 09:41:00 Test Item Value Reference Range Comments PH ARTERIAL (BEAKER) (test teph=310) 7.50 7.35-7.45 PCO2 ARTERIAL (BEAKER) (test jpal=162) 38 mmHg 35-45 PO2 ARTERIAL (BEAKER) (test dunj=150) 204 mmHg 80-90 O2 SATURATION ARTERIAL (BEAKER) (test sdoe=639) 99.5 % 96.0-97.0 HCO3 ARTERIAL (BEAKER) (test wtjh=463) 29 mmol/L 21-29 BASE EXCESS ARTERIAL (BEAKER) (test uaza=348) 5.8 mmol/L -2.0-3.0 PATIENT TEMPERATURE (BEAKER) (test ldys=2957) 37.0 C FIO2 (BEAKER) (test qdue=6950) 100.0 % CBC W/PLT COUNT & AUTO [id number] 08:39:00 Test Item Value Reference Range Comments WHITE BLOOD CELL COUNT (BEAKER) (test yopa=512) 7.7 K/ L 3.5-10.5 RED BLOOD CELL COUNT (BEAKER) (test qniw=942) 1.90 M/ L 4.63-6.08 HEMOGLOBIN (BEAKER) (test odct=199) 6.2 GM/DL 13.7-17.5 HEMATOCRIT (BEAKER) (test bgeu=700) 18.8 % 40.1-51.0 MEAN CORPUSCULAR VOLUME (BEAKER) (test xwuo=746) 98.9 fL 79.0-92.2 MEAN CORPUSCULAR HEMOGLOBIN (BEAKER) (test 32.6 pg 25.7-32.2 hhfs=906) MEAN CORPUSCULAR HEMOGLOBIN CONC (BEAKER) (test 33.0 GM/DL 32.3-36.5 rqpc=154) RED CELL DISTRIBUTION WIDTH (BEAKER) (test 18.8 % 11.6-14.4 fmje=610) PLATELET COUNT (BEAKER) (test tlpd=755) 41 K/CU MM 150-450 MEAN PLATELET VOLUME (BEAKER) (test xzum=115) 10.8 fL 9.4-12.4 NUCLEATED RED BLOOD CELLS (BEAKER) (test 0 /100 WBC 0-0 vdts=737) (CELLAVISION MANUAL DIFF)[id number] 08:39:00 Test Item Value Reference Range Comments NEUTROPHILS - REL (CELLAVISION)(BEAKER) (test 82 % wgjh=6160) LYMPHOCYTES - REL (CELLAVISION)(BEAKER) (test 9 % kjjy=3752) MONOCYTES - REL (CELLAVISION)(BEAKER) (test 3 % vtei=2204) BASOPHILS - REL (CELLAVISION)(BEAKER) (test 2 % sudo=2050) BANDS - REL (CELLAVISION)(BEAKER) (test 4 % 0-10 yrap=5038) NEUTROPHILS - ABS (CELLAVISION)(BEAKER) (test 6.31 K/ul 1.78-5.38 mtdb=4499) LYMPHOCYTES - ABS (CELLAVISION)(BEAKER) (test 0.69 K/ul 1.32-3.57 dwuz=6875) MONOCYTES - ABS (CELLAVISION)(BEAKER) (test 0.23 K/uL 0.30-0.82 ybsg=9792) BASOPHILS - ABS (CELLAVISION)(BEAKER) (test 0.15 K/uL 0.01-0.08 debl=3693) BANDS - ABS (CELLAVISION)(BEAKER) (test 0.31 K/uL 0.00-0.80 yoyv=7656) TOTAL COUNTED (BEAKER) (test yaay=9453) 100 MANUAL NRBC PER 100 CELLS (BEAKER) (test 1 /100 WBC 0-0 eueq=2238) SMUDGE CELLS (BEAKER) (test kjsa=2980) Present GIANT PLATELETS (BEAKER) (test meft=729) Present STOMATOCYTES (BEAKER) (test euxw=423) 2+ moderate ARTIFACT (CELLAVISION)(BEAKER) (test tibf=3778) Present PLATELET CONCENTRATION (CELLAVISION)(BEAKER) Decreased (test poss=4184) Received comment: User comments: Slide comments:HGB/HCT (H&H) - STAT [id number] 08:32:00 Test Item Value Reference Range Comments HEMOGLOBIN (BEAKER) (test tssk=259) 6.9 g/dL 13.0-16.8 HEMATOCRIT (BEAKER) (test uwkp=255) 20.0 % 40.0-50.0 POTASSIUM-STAT [id number] 07:37:00 Test Item Value Reference Range Comments POTASSIUM (BEAKER) (test muoh=564) 5.3 meq/L 3.6-5.5 POCT-GLUCOSE [id number] 07:25:00 Test Item Value Reference Range Comments POC-GLUCOSE METER (BEAKER) 232 mg/dL 70-[address] [facility] [address] [facility] (test puuw=5617) [facility] [address] COMPREHENSIVE METABOLIC [id number] 06:04:00 Test Item Value Reference Range Comments TOTAL PROTEIN (BEAKER) 4.2 gm/dL 6.0-8.3 (test grff=012) ALBUMIN (BEAKER) (test 2.2 g/dL 3.5-5.0 giib=9461) ALKALINE PHOSPHATASE 279 U/L 40-150 (BEAKER) (test eave=900) BILIRUBIN TOTAL (BEAKER) 6.2 mg/dL 0.2-1.2 (test jixz=048) SODIUM (BEAKER) (test 153 meq/L 136-145 bygu=057) POTASSIUM (BEAKER) (test 6.1 meq/L 3.5-5.1 fdoi=095) CHLORIDE (BEAKER) (test 107 meq/L 98-107 hvgs=999) CO2 (BEAKER) (test 26 meq/L 22-29 ntwl=525) BLOOD UREA NITROGEN 19 mg/dL 7-21 (BEAKER) (test cycd=245) CREATININE (BEAKER) (test 3.95 mg/dL 0.57-1.25 qfzi=077) GLUCOSE RANDOM (BEAKER) 45 mg/dL 70-105 (test yroe=827) CALCIUM (BEAKER) (test 7.8 mg/dL 8.4-10.2 kapt=016) AST (SGOT) (BEAKER) (test 3300 U/L 5-34 qwim=836) ALT (SGPT) (BEAKER) (test 932 U/L 6-55 bnox=555) EGFR (BEAKER) (test 16 mL/min/1.73 sq m ESTIMATED GFR IS NOT nspp=8506) ACCURATE CREATININE CLEARANCE IN PREDICTING GLOMERULAR FILTRATION RATE. ESTIMATED GFR IS NOT APPLICABLE FOR DIALYSIS PATIENTS. Specimen moderately [id number] 05:20:00 Test Item Value Reference Range Comments FIBRINOGEN LEVEL (BEAKER) (test jfrp=070) 154 mg/dl 225-434 PROTHROMBIN [id number] 05:15:00 Test Item Value Reference Range Comments PROTIME (BEAKER) (test kcrj=786) 26.9 seconds 11.7-14.7 INR (BEAKER) (test odwj=664) 2.5 <=5.9 RECOMMENDED COUMADIN/WARFARIN INR THERAPY RANGESSTANDARD DOSE: 2.0 - 3.0 Includes: PROPHYLAXIS forvenous thrombosis, systemic embolization; TREATMENT for venous thrombosis and/or pulmonary embolus.HIGH RISK: Target INR is 2.5-3.5 for patients with mechanical heart valves.LACTIC ACID, VENOUS, WHOLE [id number] 05:00:00 Test Item Value Reference Range Comments LACTATE BLOOD VENOUS (2) (BEAKER) (test 12.8 mmol/L 0.5-2.2 lswq=2791) Effective 09/15/2015: Units/Reference Range ChangeNew: 0.5-2.2 mmol/L Previous: 5 -20 mg/dLSpecimen moderately ictericTROPONIN [id number] 00:42:00 Test Item Value Reference Range Comments TROPONIN I (BEAKER) (test ihhd=579) 0.95 ng/mL 0.00-0.03 Troponin I (TnI) levels [...] failure, acidosis, acute neurological disease, and persistent tachyarrhythmia.[id number] 00:39:00 Test Item Value Reference Range Comments FIBRINOGEN LEVEL (BEAKER) (test jejv=275) 138 mg/dl 225-434 PROTHROMBIN TIME/[id number] 00:34:00 Test Item Value Reference Range Comments PROTIME (BEAKER) (test hnug=920) 26.3 seconds 11.7-14.7 INR (BEAKER) (test eghc=702) 2.4 <=5.9 RECOMMENDED COUMADIN/WARFARIN INR THERAPY RANGESSTANDARD DOSE: 2.0 - 3.0 Includes: PROPHYLAXIS forvenous thrombosis, systemic embolization; TREATMENT for venous thrombosis and/or pulmonary embolus.HIGH RISK: Target INR is 2.5-3.5 for patients with mechanical heart valves.CBC W/PLT COUNT & AUTO [id number] 00:23:00 Test Item Value Reference Range Comments WHITE BLOOD CELL COUNT (BEAKER) (test mxou=665) 9.1 K/ L 3.5-10.5 RED BLOOD CELL COUNT (BEAKER) (test iimf=693) 2.22 M/ L 4.63-6.08 HEMOGLOBIN (BEAKER) (test oyib=832) 7.1 GM/DL 13.7-17.5 HEMATOCRIT (BEAKER) (test yika=869) 21.6 % 40.1-51.0 MEAN CORPUSCULAR VOLUME (BEAKER) (test rtfq=465) 97.3 fL 79.0-92.2 MEAN CORPUSCULAR HEMOGLOBIN (BEAKER) (test 32.0 pg 25.7-32.2 sjae=236) MEAN CORPUSCULAR HEMOGLOBIN CONC (BEAKER) (test 32.9 GM/DL 32.3-36.5 bupq=902) RED CELL DISTRIBUTION WIDTH (BEAKER) (test 18.5 % 11.6-14.4 mfro=811) PLATELET COUNT (BEAKER) (test whyn=281) 54 K/CU MM 150-450 MEAN PLATELET VOLUME (BEAKER) (test mtpy=208) 10.8 fL 9.4-12.4 NUCLEATED RED BLOOD CELLS (BEAKER) (test 0 /100 WBC 0-0 eybl=670) NEUTROPHILS RELATIVE PERCENT (BEAKER) (test 78 % tzqa=218) LYMPHOCYTES RELATIVE PERCENT (BEAKER) (test 15 % ucft=091) MONOCYTES RELATIVE PERCENT (BEAKER) (test 6 % kxoh=084) EOSINOPHILS RELATIVE PERCENT (BEAKER) (test 0 % hcsn=578) BASOPHILS RELATIVE PERCENT (BEAKER) (test 0 % dgpn=125) NEUTROPHILS ABSOLUTE COUNT (BEAKER) (test 7.08 K/ L 1.78-5.38 vsdl=661) LYMPHOCYTES ABSOLUTE COUNT (BEAKER) (test 1.31 K/ L 1.32-3.57 ywit=904) MONOCYTES ABSOLUTE COUNT (BEAKER) (test qybh=653) 0.52 K/ L 0.30-0.82 EOSINOPHILS ABSOLUTE COUNT (BEAKER) (test 0.02 K/ L 0.04-0.54 zlfh=777) BASOPHILS ABSOLUTE COUNT (BEAKER) (test esjg=671) 0.01 K/ L 0.01-0.08 IMMATURE GRANULOCYTES-RELATIVE PERCENT (BEAKER) 1 % 0-1 (test qtkc=1763) LACTIC ACID, VENOUS, WHOLE [id number] 23:00:00 Test Item Value Reference Range Comments LACTATE BLOOD VENOUS (2) (BEAKER) (test 10.3 mmol/L 0.5-2.2 odix=0104) Effective 09/15/2015: Units/Reference Range ChangeNew: 0.5-2.2 mmol/L Previous: 5 -20 mg/dLSpecimen moderately [id number] 22:12:00 Test Item Value Reference Range Comments FIBRINOGEN LEVEL (BEAKER) (test dxee=004) 147 mg/dl 225-434 PROTHROMBIN TIME/[id number] 22:07:00 Test Item Value Reference Range Comments PROTIME (BEAKER) (test halu=587) 23.7 seconds 11.7-14.7 INR (BEAKER) (test vxui=363) 2.1 <=5.9 RECOMMENDED COUMADIN/WARFARIN INR THERAPY RANGESSTANDARD DOSE: 2.0 - 3.0 Includes: PROPHYLAXIS forvenous thrombosis, systemic embolization; TREATMENT for venous thrombosis and/or pulmonary embolus.HIGH RISK: Target INR is 2.5-3.5 for patients with mechanical heart valves.CBC W/PLT COUNT & AUTO [id number] 21:59:00 Test Item Value Reference Range Comments WHITE BLOOD CELL COUNT (BEAKER) (test ansl=572) 9.9 K/ L 3.5-10.5 RED BLOOD CELL COUNT (BEAKER) (test ulqs=642) 2.52 M/ L 4.63-6.08 HEMOGLOBIN (BEAKER) (test ukgj=932) 8.1 GM/DL 13.7-17.5 HEMATOCRIT (BEAKER) (test zwqk=441) 24.2 % 40.1-51.0 MEAN CORPUSCULAR VOLUME (BEAKER) (test bmbb=581) 96.0 fL 79.0-92.2 MEAN CORPUSCULAR HEMOGLOBIN (BEAKER) (test 32.1 pg 25.7-32.2 rqpm=050) MEAN CORPUSCULAR HEMOGLOBIN CONC (BEAKER) (test 33.5 GM/DL 32.3-36.5 hlah=196) RED CELL DISTRIBUTION WIDTH (BEAKER) (test 18.0 % 11.6-14.4 ngww=566) PLATELET COUNT (BEAKER) (test kujj=627) 59 K/CU MM 150-450 MEAN PLATELET VOLUME (BEAKER) (test sqnt=455) 10.9 fL 9.4-12.4 NUCLEATED RED BLOOD CELLS (BEAKER) (test 0 /100 WBC 0-0 iwdu=508) NEUTROPHILS RELATIVE PERCENT (BEAKER) (test 80 % wpfd=518) LYMPHOCYTES RELATIVE PERCENT (BEAKER) (test 14 % jzca=704) MONOCYTES RELATIVE PERCENT (BEAKER) (test 5 % tlwv=194) EOSINOPHILS RELATIVE PERCENT (BEAKER) (test 0 % kwjb=412) BASOPHILS RELATIVE PERCENT (BEAKER) (test 0 % zhax=566) NEUTROPHILS ABSOLUTE COUNT (BEAKER) (test 7.91 K/ L 1.78-5.38 nutm=446) LYMPHOCYTES ABSOLUTE COUNT (BEAKER) (test 1.37 K/ L 1.32-3.57 hzse=552) MONOCYTES ABSOLUTE COUNT (BEAKER) (test ugqt=583) 0.52 K/ L 0.30-0.82 EOSINOPHILS ABSOLUTE COUNT (BEAKER) (test 0.01 K/ L 0.04-0.54 fiip=540) BASOPHILS ABSOLUTE COUNT (BEAKER) (test cbhn=168) 0.02 K/ L 0.01-0.08 IMMATURE GRANULOCYTES-RELATIVE PERCENT (BEAKER) 1 % 0-1 (test yprl=9701) BLOOD GAS, [id number] 21:59:00 Test Item Value Reference Range Comments PH ARTERIAL (BEAKER) (test dutk=137) 7.42 7.35-7.45 PCO2 ARTERIAL (BEAKER) (test jalx=900) 39 mmHg 35-45 PO2 ARTERIAL (BEAKER) (test hlxa=101) 205 mmHg 80-90 O2 SATURATION ARTERIAL (BEAKER) (test noep=535) 99.4 % 96.0-97.0 HCO3 ARTERIAL (BEAKER) (test cwti=107) 25 mmol/L 21-29 BASE EXCESS ARTERIAL (BEAKER) (test gwin=124) 0.4 mmol/L -2.0-3.0 PATIENT TEMPERATURE (BEAKER) (test vxyq=4268) 38.0 C FIO2 (BEAKER) (test vnrw=5126) 21.0 % LACTIC ACID, VENOUS, WHOLE [id number] 18:10:00 Test Item Value Reference Range Comments LACTATE BLOOD VENOUS (2) (BEAKER) (test 10.3 mmol/L 0.5-2.2 xkuy=7883) Effective 09/15/2015: Units/Reference Range ChangeNew: 0.5-2.2 mmol/L Previous: 5 -20 mg/dLSpecimen slightly ictericU/S, ABDOMINAL, WITH [id number] 17:57: 00Reason for exam:->TIPS eval, hx of [...] Verified Date/Time: 01/24/2018 17:57: 10 Reading Location: [address] Ultrasound Reading Room POCT-GLUCOSE [id number] 17:43:00 Test Item Value Reference Range Comments POC-GLUCOSE METER (BEAKER) 83 mg/dL 70-[address] [facility] [address] (test qhin=7879) [facility] [address] [id number] 17:36:00 Test Item Value Reference Range Comments PROCALCITONIN (BEAKER) (test qzud=7398) 0.63 ng/mL <0.05 SEPSIS RISK (ng/mL)Low: 0.05-0.50Intermediate: 0.51-2.00High: & gt;=2.01EEG AWAKE AND [id number] 17:10:00Reason for exam:->r/o siezuresShould this be performed at the bedside?->YesDate of EE2017DATE OF REPORT: 01/24/2018ACC: [id number] Number: [id number] Location: Inpatient EEGStart time: 15:50Stop time: 16:12ICD-10: R56.9CPT Code: 78847 HISTORY: 52 y old male with h/o [...] M.D., STACEY, FAAN, BRANDO Professor of Neurology, [employer] [facility] [employer] [facility] Director, [facility] Epilepsy [place], [facility] Electronically signed by: REGGIE GERARD on 01/24 05:10 PMCALCIUM, [id number] 16:35:00 Test Item Value Reference Range Comments CALCIUM IONIZED (BEAKER) (test ugtd=642) 1.09 mmol/L 1.12-1.27 PH, BLOOD (BEAKER) (test pdwv=3252) 7.40 CBC (HEMOGRAM ONLY)2018-01-24 15:58:00 Test Item Value Reference Range Comments WHITE BLOOD CELL COUNT (BEAKER) (test sdmz=300) 13.1 K/ L 3.5-10.5 RED BLOOD CELL COUNT (BEAKER) (test iwno=422) 2.67 M/ L 4.63-6.08 HEMOGLOBIN (BEAKER) (test jmrn=389) 8.6 GM/DL 13.7-17.5 HEMATOCRIT (BEAKER) (test hvqu=926) 25.5 % 40.1-51.0 MEAN CORPUSCULAR VOLUME (BEAKER) (test pmuw=411) 95.5 fL 79.0-92.2 MEAN CORPUSCULAR HEMOGLOBIN (BEAKER) (test 32.2 pg 25.7-32.2 kmwk=315) MEAN CORPUSCULAR HEMOGLOBIN CONC (BEAKER) (test 33.7 GM/DL 32.3-36.5 nmse=813) RED CELL DISTRIBUTION WIDTH (BEAKER) (test 17.4 % 11.6-14.4 dxdl=115) PLATELET COUNT (BEAKER) (test ukju=643) 71 K/CU MM 150-450 MEAN PLATELET VOLUME (BEAKER) (test vphe=324) 10.3 fL 9.4-12.4 NUCLEATED RED BLOOD CELLS (BEAKER) (test 0 /100 WBC 0-0 frnb=085) URINALYSIS W/ REFLEX URINE [id number] 15:02:00 Test Item Value Reference Range Comments COLOR (BEAKER) (test cncc=923) Dark Yellow CLARITY (BEAKER) (test wkaq=485) Cloudy SPECIFIC GRAVITY UA (BEAKER) (test znba=786) 1.017 1.001-1.035 PH UA (BEAKER) (test pqhz=079) 5.0 5.0-8.0 PROTEIN UA (BEAKER) (test aacq=431) 30 mg/dL Negative GLUCOSE UA (BEAKER) (test eppx=039) 30 mg/dL Negative KETONES UA (BEAKER) (test uioa=435) Negative Negative BILIRUBIN UA (BEAKER) (test sgka=323) Positive Negative BLOOD UA (BEAKER) (test qjfn=862) Large Negative NITRITE UA (BEAKER) (test jvtq=136) Negative Negative LEUKOCYTE ESTERASE UA (BEAKER) (test txqz=149) Negative Negative UROBILINOGEN UA (BEAKER) (test pbyf=751) 0.2 mg/dL 0.2-1.0 RBC UA (BEAKER) (test cmkd=906) 27 /HPF WBC UA (BEAKER) (test jkvz=371) 13 /HPF BACTERIA (BEAKER) (test wkhn=860) Few MUCUS (BEAKER) (test kmjs=8035) Occasional HYALINE CASTS (BEAKER) (test mkkn=772) 10 /LPF SOURCE(BEAKER) (test yxke=4354) POTASSIUM-STAT [id number] 14:43:00 Test Item Value Reference Range Comments POTASSIUM (BEAKER) (test chtc=626) 5.0 meq/L 3.6-5.5 SODIUM NA-STAT [id number] 14:43:00 Test Item Value Reference Range Comments SODIUM (BEAKER) (test oqbu=070) 144 meq/L 135-148 BLOOD GAS, [id number] 14:43:00 Test Item Value Reference Range Comments PH ARTERIAL (BEAKER) (test lcea=260) 7.32 7.35-7.45 PCO2 ARTERIAL (BEAKER) (test jyol=892) 38 mmHg 35-45 PO2 ARTERIAL (BEAKER) (test fcnu=038) 265 mmHg 80-90 O2 SATURATION ARTERIAL (BEAKER) (test sscr=781) 99.6 % 96.0-97.0 HCO3 ARTERIAL (BEAKER) (test bwcb=817) 19 mmol/L 21-29 BASE EXCESS ARTERIAL (BEAKER) (test rgfj=784) -6.2 mmol/L -2.0-3.0 PATIENT TEMPERATURE (BEAKER) (test sker=0884) 38.5 C FIO2 (BEAKER) (test pmml=7204) 60.0 % POCT-GLUCOSE [id number] 14:12:00 Test Item Value Reference Range Comments POC-GLUCOSE METER (BEAKER) 196 mg/dL 70-[address] [facility] [address] [facility] (test xqbo=6858) [facility] [address] LACTIC ACID, ARTERIAL, WHOLE [id number] 13:49:00 Test Item Value Reference Range Comments LACTATE BLOOD ARTERIAL (2) (BEAKER) (test > mmol/L 0.5-2.2 jqmk=2853) Effective 09/15/2015: Units/Reference Range ChangeNew: 0.5-2.2 mmol/L Previous: 5 -20 mg/dLSpecimen slightly ictericTHROMBOELASTOGRAPH (TEG)2018-01-24 13:18:00 Test Item Value Reference Range Comments TEG ACTIVATED CLOTTING TIME (BEAKER) (test 4.8 minutes 4.0-7.0 vars=0573) TEG FIBRINOGEN ACTIVITY (BEAKER) (test 65.1 degrees 61.0-73.0 ntpi=7909) TEG PLT. AGGREGATION (BEAKER) (test slok=0638) 49.4 MM 55.0-65.0 TEG FIBRINOLYSIS (BEAKER) (test ubrl=6058) 0.0 % 0.0-5.0 TGH ACTIVATED CLOTTING TIME (BEAKER) (test 4.7 minutes 4.0-7.0 lynf=8240) TGH FIBRINOGEN ACTIVITY (BEAKER) (test 63.2 degrees 61.0-73.0 elod=0961) TGH PLT. AGGREGATION (BEAKER) (test pppx=5562) 45.9 MM 55.0-65.0 TGH FIBRINOLYSIS (BEAKER) (test hdoh=5181) 0.0 % 0.0-5.0 BASIC METABOLIC [id number] 13:02:00 Test Item Value Reference Range Comments SODIUM (BEAKER) (test 150 meq/L 136-145 wgkb=120) POTASSIUM (BEAKER) (test 6.0 meq/L 3.5-5.1 bzry=282) CHLORIDE (BEAKER) (test 112 meq/L 98-107 xvri=101) CO2 (BEAKER) (test 16 meq/L 22-29 vkis=847) BLOOD UREA NITROGEN 12 mg/dL 7-21 (BEAKER) (test trbz=900) CREATININE (BEAKER) (test 1.71 mg/dL 0.57-1.25 fzds=528) GLUCOSE RANDOM (BEAKER) 97 mg/dL 70-105 (test hczd=710) CALCIUM (BEAKER) (test 8.0 mg/dL 8.4-10.2 ohgd=365) EGFR (BEAKER) (test 42 mL/min/1.73 sq m ESTIMATED GFR IS NOT ncij=6180) ACCURATE CREATININE CLEARANCE IN PREDICTING GLOMERULAR FILTRATION RATE. ESTIMATED GFR IS NOT APPLICABLE FOR DIALYSIS PATIENTS. Specimen slightly ictericTROPONIN [id number] 12:59:00 Test Item Value Reference Range Comments TROPONIN I (BEAKER) (test shsd=487) 0.17 ng/mL 0.00-0.03 Troponin I (TnI) levels [...] failure, acidosis, acute neurological disease, and persistent tachyarrhythmia.[id number] 12:47:00 Test Item Value Reference Range Comments PROTIME (BEAKER) (test ubmw=570) 20.5 seconds 11.7-14.7 INR (BEAKER) (test onon=971) 1.8 <=5.9 PARTIAL THROMBOPLASTIN TIME (BEAKER) (test 55.4 seconds 22.5-36.0 eazo=376) RECOMMENDED COUMADIN/WARFARIN INR THERAPY RANGESSTANDARD DOSE: 2.0 - 3.0 Includes: PROPHYLAXIS forvenous thrombosis, systemic embolization; TREATMENT for venous thrombosis and/or pulmonary embolus.HIGH RISK: Target INR is 2.5-3.5 for patients with mechanical heart valves.[id number] 12:46:00 Test Item Value Reference Range Comments FIBRINOGEN LEVEL (BEAKER) (test iymm=542) 159 mg/dl 225-434 CBC W/PLT COUNT & AUTO [id number] 12:21:00 Test Item Value Reference Range Comments WHITE BLOOD CELL COUNT (BEAKER) (test pafg=041) 14.3 K/ L 3.5-10.5 RED BLOOD CELL COUNT (BEAKER) (test zwts=992) 2.80 M/ L 4.63-6.08 HEMOGLOBIN (BEAKER) (test dvar=595) 9.1 GM/DL 13.7-17.5 HEMATOCRIT (BEAKER) (test oemv=637) 27.5 % 40.1-51.0 MEAN CORPUSCULAR VOLUME (BEAKER) (test ppkf=683) 98.2 fL 79.0-92.2 MEAN CORPUSCULAR HEMOGLOBIN (BEAKER) (test 32.5 pg 25.7-32.2 fiod=944) MEAN CORPUSCULAR HEMOGLOBIN CONC (BEAKER) (test 33.1 GM/DL 32.3-36.5 nzdi=253) RED CELL DISTRIBUTION WIDTH (BEAKER) (test 16.5 % 11.6-14.4 pzct=348) PLATELET COUNT (BEAKER) (test thwd=427) 97 K/CU MM 150-450 MEAN PLATELET VOLUME (BEAKER) (test kvac=999) 10.6 fL 9.4-12.4 NUCLEATED RED BLOOD CELLS (BEAKER) (test 0 /100 WBC 0-0 lvbs=897) NEUTROPHILS RELATIVE PERCENT (BEAKER) (test 89 % btkb=385) LYMPHOCYTES RELATIVE PERCENT (BEAKER) (test 5 % ysdo=415) MONOCYTES RELATIVE PERCENT (BEAKER) (test 5 % zwki=837) EOSINOPHILS RELATIVE PERCENT (BEAKER) (test 0 % kpgs=160) BASOPHILS RELATIVE PERCENT (BEAKER) (test 0 % pqfh=905) NEUTROPHILS ABSOLUTE COUNT (BEAKER) (test 12.75 K/ L 1.78-5.38 cuto=581) LYMPHOCYTES ABSOLUTE COUNT (BEAKER) (test 0.69 K/ L 1.32-3.57 rnlm=551) MONOCYTES ABSOLUTE COUNT (BEAKER) (test bkxf=254) 0.69 K/ L 0.30-0.82 EOSINOPHILS ABSOLUTE COUNT (BEAKER) (test 0.00 K/ L 0.04-0.54 fuzc=410) BASOPHILS ABSOLUTE COUNT (BEAKER) (test fcpy=506) 0.01 K/ L 0.01-0.08 IMMATURE GRANULOCYTES-RELATIVE PERCENT (BEAKER) 1 % 0-1 (test arqt=4502) RAD, CHEST, 1 VIEW, NON [id number] 12:18:00Reason for exam:->post intubationShould this be performed [...] hardware overlies the chest. Signed: Cary Walls MDReport Verified Date/Time: 01/24/2018 12:18:39 Reading Location: [facility] Radiology Reading Room BLOOD GAS, [id number] 12:08:00 Test Item Value Reference Range Comments PH ARTERIAL (BEAKER) (test asbs=042) 7.16 7.35-7.45 PCO2 ARTERIAL (BEAKER) (test syua=167) 55 mmHg 35-45 PO2 ARTERIAL (BEAKER) (test odfo=442) 248 mmHg 80-90 O2 SATURATION ARTERIAL (BEAKER) (test ffmt=079) 99.3 % 96.0-97.0 HCO3 ARTERIAL (BEAKER) (test rqjo=749) 20 mmol/L 21-29 BASE EXCESS ARTERIAL (BEAKER) (test lcec=280) -9.1 mmol/L -2.0-3.0 PATIENT TEMPERATURE (BEAKER) (test udxj=6598) 36.0 C FIO2 (BEAKER) (test ovgx=1369) 60.0 % [id number] 11:23:00 Test Item Value Reference Range Comments POTASSIUM (BEAKER) (test sjon=647) 5.6 meq/L 3.5-5.1 HEMOGLOBIN AND [id number] 10:52:00 Test Item Value Reference Range Comments HEMOGLOBIN (BEAKER) (test zgfn=816) 9.7 GM/DL 13.7-17.5 HEMATOCRIT (BEAKER) (test lwrx=420) 30.2 % 40.1-51.0 BLOOD GAS, [id number] 10:35:00 Test Item Value Reference Range Comments PH ARTERIAL (BEAKER) (test umjx=110) 7.13 7.35-7.45 PCO2 ARTERIAL (BEAKER) (test mxho=304) 47 mmHg 35-45 PO2 ARTERIAL (BEAKER) (test aqyo=708) 284 mmHg 80-90 O2 SATURATION ARTERIAL (BEAKER) (test txsl=880) 99.5 % 96.0-97.0 HCO3 ARTERIAL (BEAKER) (test yfzo=240) 16 mmol/L 21-29 BASE EXCESS ARTERIAL (BEAKER) (test drgb=969) -13.1 mmol/L -2.0-3.0 PATIENT TEMPERATURE (BEAKER) (test wxqe=7111) 36.5 C FIO2 (BEAKER) (test arze=6964) 60.0 % CALCIUM, [id number] 10:34:00 Test Item Value Reference Range Comments CALCIUM IONIZED (BEAKER) (test cfpm=930) 0.90 mmol/L 1.12-1.27 PH, BLOOD (BEAKER) (test atbg=4697) 7.13 POCT-BLOOD GASES, [id number] 09:54:00 Test Item Value Reference Range Comments TEMP, CELSIUS-POC (BEAKER) 37.0 (test kixq=9091) FIO2-POC (BEAKER) (test TESTED AT [facility] [address] twpw=7948) [facility] [address] PH, ARTERIAL-POC (BEAKER) 7.044 7.350-7.450 (test ovez=9130) PCO2, ARTERIAL-POC (BEAKER) 48.3 mm Hg 35.0-45.0 (test xxqb=0839) PO2, ARTERIAL-POC (BEAKER) 251.0 mm Hg 80.0-90.0 (test nkts=3125) SO2, ARTERIAL-POC (BEAKER) 100.0 % 96.0-97.0 (test wxyf=5243) HCO3, ARTERIAL-POC (BEAKER) 13.2 meq/L 21.0-29.0 (test ybqn=0875) BASE EXCESS, ARTERIAL-POC -17.0 meq/L -2.0-3.0 (BEAKER) (test ndit=1844) [id number] 09:54:00 Test Item Value Reference Range Comments POC-SODIUM (BEAKER) (test 143 meq/L 135-148 TESTED AT [address] ckwn=3497) [place] [address] [id number] 09:54:00 Test Item Value Reference Range Comments POC-POTASSIUM (BEAKER) (test 5.5 meq/L 3.6-5.5 TESTED AT [address] zfjp=3240) [place] [address] [id number] 09:54:00 Test Item Value Reference Range Comments POC-GLUCOSE (BEAKER) (test 121 mg/dL 70-110 TESTED AT [address] kuht=4148) [place] [address] POCT-CALCIUM [id number] 09:54:00 Test Item Value Reference Range Comments POC-CALCIUM IONIZED (BEAKER) 0.95 mmol/L 1.12-1.27 TESTED AT [address] (test qjhm=0484) [place] [address] [id number] 09:54:00 Test Item Value Reference Range Comments POC-HEMATOCRIT (BEAKER) (test 28 % 40-50 TESTED AT [address] flnk=3310) [place] [address] [id number] 09:54:00 Test Item Value Reference Range Comments POC-HEMOGLOBIN (BEAKER) 9.5 g/dL 13.0-16.8 TESTED AT [address] (test lukm=7256) [place] [address]TESTED AT [place] [address] [id number] 09:34:00 Test Item Value Reference Range Comments D-DIMER QUANTITATIVE (BEAKER) (test xwru=505) 1.49 MG/L FEU <0.50 Intended Use: The [...] of thrombosis is within 95-100% range.COMPREHENSIVE METABOLIC [id number] 09:32:00 Test Item Value Reference Range Comments TOTAL PROTEIN (BEAKER) 4.8 gm/dL 6.0-8.3 (test mrpv=075) ALBUMIN (BEAKER) (test 1.9 g/dL 3.5-5.0 oxcm=1274) ALKALINE PHOSPHATASE 153 U/L 40-150 (BEAKER) (test xxhh=961) BILIRUBIN TOTAL (BEAKER) 2.8 mg/dL 0.2-1.2 (test oklw=052) SODIUM (BEAKER) (test 143 meq/L 136-145 qhdw=504) POTASSIUM (BEAKER) (test 5.1 meq/L 3.5-5.1 nnar=595) CHLORIDE (BEAKER) (test 113 meq/L 98-107 rzzm=521) CO2 (BEAKER) (test 12 meq/L 22-29 ehsm=636) BLOOD UREA NITROGEN 12 mg/dL 7-21 (BEAKER) (test qepu=290) CREATININE (BEAKER) (test 1.83 mg/dL 0.57-1.25 vgkk=596) GLUCOSE RANDOM (BEAKER) 138 mg/dL 70-105 (test nens=150) CALCIUM (BEAKER) (test 7.4 mg/dL 8.4-10.2 ewes=243) AST (SGOT) (BEAKER) (test 283 U/L 5-34 pvus=813) ALT (SGPT) (BEAKER) (test 78 U/L 6-55 lnoc=405) EGFR (BEAKER) (test 39 mL/min/1.73 sq m ESTIMATED GFR IS NOT nppo=4775) ACCURATE CREATININE CLEARANCE IN PREDICTING GLOMERULAR FILTRATION RATE. ESTIMATED GFR IS NOT APPLICABLE FOR DIALYSIS PATIENTS. Specimen slightly [id number] 09:29:00 Test Item Value Reference Range Comments POTASSIUM (BEAKER) (test rzwb=801) 5.1 meq/L 3.5-5.1 [id number] 09:29:00 Test Item Value Reference Range Comments SODIUM (BEAKER) (test lrjw=727) 143 meq/L 136-145 [id number] 09:29:00 Test Item Value Reference Range Comments GLUCOSE RANDOM (BEAKER) (test mrmj=781) 138 mg/dL 70-105 LACTIC ACID, VENOUS, WHOLE [id number] 09:23:00 Test Item Value Reference Range Comments LACTATE BLOOD VENOUS (2) (BEAKER) (test 13.2 mmol/L 0.5-2.2 kjid=0832) Effective 09/15/2015: Units/Reference Range ChangeNew: 0.5-2.2 mmol/L Previous: 5 -20 mg/[id number] 09:22:00 Test Item Value Reference Range Comments FIBRINOGEN LEVEL (BEAKER) (test xede=259) < mg/dl 225-434 [id number] 09:15:00 Test Item Value Reference Range Comments PROTIME (BEAKER) (test eqml=711) 24.3 seconds 11.7-14.7 INR (BEAKER) (test hmtd=618) 2.2 <=5.9 PARTIAL THROMBOPLASTIN TIME (AKER) (test 47.1 seconds 22.5-36.0 gegq=572) RECOMMENDED COUMADIN/WARFARIN INR THERAPY RANGESSTANDARD DOSE: 2.0 - 3.0 Includes: PROPHYLAXIS forvenous thrombosis, systemic embolization; TREATMENT for venous thrombosis and/or pulmonary embolus.HIGH RISK: Target INR is 2.5-3.5 for patients with mechanical heart valves.POCT-LACTIC ACID, [id number] 09: 04:00 Test Item Value Reference Range Comments POC-LACTIC ACID, VENOUS 10.1 mmol/L 0.9-1.7 TESTED AT [address] ([facility]) (test bqzr=0573) [facility] [address] PLATELET [id number] 09:03:00 Test Item Value Reference Range Comments PLATELET COUNT (AKER) (test onfz=845) 70 K/CU MM 150-450 HEMOGLOBIN AND [id number] 09:03:00 Test Item Value Reference Range Comments HEMOGLOBIN (BEAKER) (test ycjy=265) 7.3 GM/DL 13.7-17.5 HEMATOCRIT (AKER) (test knrb=045) 22.2 % 40.1-51.0 [id number] 08:52:00 Test Item Value Reference Range Comments POC-GLUCOSE (AKER) (test 132 mg/dL 70-110 TESTED AT [address] ixcy=9105) [place] [address] POCT-CALCIUM [id number] 08:52:00 Test Item Value Reference Range Comments POC-CALCIUM IONIZED (BEAKER) 1.00 mmol/L 1.12-1.27 TESTED AT [address] (test fpfk=6341) [place] [address] [id number] 08:52:00 Test Item Value Reference Range Comments POC-HEMATOCRIT (BEAKER) (test 19 % 40-50 TESTED AT [address] ilwb=5869) [place] [address] [id number] 08:52:00 Test Item Value Reference Range Comments POC-HEMOGLOBIN (BEAKER) 6.5 g/dL 13.0-16.8 TESTED AT [address] (test rqto=8145) [place] [address]TESTED AT [place] [address] POCT-BLOOD GASES, [id number] 08:51:00 Test Item Value Reference Range Comments TEMP, CELSIUS-POC (BEAKER) 37.0 (test tmug=3696) FIO2-POC (BEAKER) (test TESTED AT [address] bfcd=2963) [place] [address] PH, VENOUS-POC (BEAKER) 7.213 7.320-7.420 (test otow=8286) PCO2, VENOUS-POC (BEAKER) 32.2 mm Hg 41.0-51.0 (test eeii=7309) PO2, VENOUS-POC (BEAKER) 15.0 mm Hg 25.0-40.0 (test eygz=0068) SO2, VENOUS-POC (BEAKER) 14.0 % 40.0-70.0 (test muti=9378) HCO3, VENOUS-POC (BEAKER) 13.0 meq/L 21.0-29.0 (test bywu=3685) BASE EXCESS, VENOUS-POC -15.0 meq/L -2.0-3.0 (BEAKER) (test maxn=0180) [id number] 08:51:00 Test Item Value Reference Range Comments POC-SODIUM (BEAKER) (test 143 meq/L 135-148 TESTED AT [address] yxjf=9323) [place] [address] [id number] 08:51:00 Test Item Value Reference Range Comments POC-POTASSIUM (BEAKER) (test 4.8 meq/L 3.6-5.[address] [facility] [address] [facility] geve=1503) [facility] [address]
--- OUTSIDE RECORDS SUMMARY | 2019-07-01 19:59 | XMS REPORT ---
[...] Status Dosage System Date Date Furosemide ND [id number] 40 MG Orally Jun 20, Active 2 tablets Once a day 2018 BuPROPion HCl ND 19195782755 100 MG Orally Feb 03, Active 1 tablet Twice a day 2019 Folic Acid [facility] [id number] 1 MG Oral Active TAKE 1 TABLET BY MOUTH EVERY DAY Spironolactone ND 90592429491 25 MG Oral Active TAKE 1 TABLET BY MOUTH EVERY DAY Hydrocortisone ND 71454721079 10 MG Orally Active 1 tablet every 12 hrs with food or milk Ferrous Sulfate [facility] 17073485917 325 (65 Fe) MG Feb 03, Active 1 tablet Orally Once a 2019 day Results No Known Results Summary Purpose eClinicalWorks Submission
[2019-07-01 20:00] LABS: Protime INR 2.2
[2019-07-01 20:24] LABS: Platelet Estimate DECR
[2019-07-01 20:25] LABS: Blood Morphology Comment NOT SEEN (NOT SEEN)
[2019-07-01 20:31] LABS: Albumin 1.5 g/dL (3.4-5.0); CKMB Creatine Kinase MB 3.6 ng/mL (0.3-3.6); Protein, Total 6.5 g/dL (6.4-8.2)
[2019-07-01 20:33] LABS: Potassium 2.3 mmol/L (3.5-5.1)
[2019-07-01] MEDS ORDERED: PANTOPRAZOLE 40 MG INJ ONE (20:39)
[2019-07-01] MEDS ORDERED: THIAMINE 200 MG/2 ML INJ ONE (20:39)
[2019-07-01] MEDS ORDERED: NA CHLORIDE 0.9% 1,000 ML ONE ×2 (20:39→21:55)
[2019-07-01] MEDS ORDERED: MULTIVITAMINS 10 ML VIAL (INJ) IV ONE (20:40)
[2019-07-01] MEDS ORDERED: LACTULOSE 20 GM/30 ML UCUP ONE (20:41)
[2019-07-01] MEDS ORDERED: FOLIC ACID 5 MG/ML VIAL ONE (20:41)
[2019-07-01 20:55] LABS: Barbiturates NEGATIVE (NEGATIVE); Benzodiazepines NEGATIVE (NEGATIVE); Cocaine NEGATIVE (NEGATIVE); METHAMPHETAM NEGATIVE (NEGATIVE); Methadone NEGATIVE (NEGATIVE); Opiates NEGATIVE (NEGATIVE); Phencyclidine NEGATIVE (NEGATIVE); THC Cannibis NEGATIVE (NEGATIVE)
--- NOTE | 2019-07-01 20:55 | RAD REPORT ---
EXAM DESCRIPTION: RAD - Chest Single View - 07/01/2019 8:14 pm CLINICAL HISTORY: COUGH COMPARISON: Chest Single View dated 03/31/2019; Chest Single View dated 03/10/2019 TECHNIQUE: AP portable chest image was obtained 07/01/2019 8:14 pm . FINDINGS: Lungs are clear. Heart and vasculature are normal. No measurable pleural effusion and no p neumothorax. No acute bony abnormality seen. No acute aortic findings suspected. IMPRESSION: No acute cardiopulmonary process. No significant change compared to the February 2019 imaging.
[2019-07-01 21:25] LABS: Urine Bacteria 20-50 /HPF (NONE SEEN); Urine Culture Reflex Order REFLEXED
--- NOTE | 2019-07-01 21:47 | ER ---
Nurse's Notes [facility] Name: Wesley Taylor Age: 53 yrs Sex: Male : 1965 Arrival Date: 07/01/2019 Time: 19:28 Bed 28 Private MD: Diagnosis: Encephalopathy, unspecified;Alcoholic cirrhosis of liver;Gastrointestinal hemorrhage, unspecified;Alcohol abuse;Hypokalemia Presentation: 07/01 19:28 Presenting complaint: EMS states: PT HAS BEEN WANDERING AROUND HARBERT IN UNDERWEAR. ls4 PT IS CONFUSED AND SHIVERING. PT APARTMENT HAS MANY EMPTY BEER CANS. PT IS COOPERITIVE AND ORIENTED TO SELF ONLY. GCS 13. Transition of care: patient was not received from another setting of care. Onset of symptoms is unknown. Risk Assessment: Do you want to hurt yourself or someone else? Patient reports no desire to harm self or others. Initial Sepsis Screen: Does the patient meet any 2 criteria? Altered Mental Status. HR > 90 bpm. Does the patient have a suspected source of infection? Yes: No. Patient's initial sepsis screen is negative. Care prior to arrival: IV initiated. 18 GA, in the left antecubital area. 19:28 Method Of Arrival: Law Enforcement: [facility] 19:28 Acuity: MERNA 2 ls4 Triage Assessment: 19:33 General: Appears uncomfortable, unkempt, Behavior is cooperative. Pain: Unable to use ls4 pain scale. Patient is disoriented. Neuro: Level of Consciousness is awake, obeys commands, Oriented to person. Historical: - Allergies: 19:33 No Known Allergies; ls4 - PMHx: 19:33 Alcoholism; Cirrhosis; esophageal varices; GI Bleed; ls4 - PSHx: 19:33 paracentesis; ls4 - Immunization history:: Adult Immunizations unknown. - Coronavirus screen:: The patient has NOT traveled to [place] in the past 14 days. Proceed with normal triage process as indicated. - Social history:: Smoking status: unknown Patient uses alcohol, on a daily basis. patient/guardian reports chronic longstanding heavy alcohol consumption. - Family history:: not pertinent. - Ebola Screening: : No symptoms or risks identified at this time. Screenin:35 Abuse screen: Denies threats or abuse. Denies injuries from another. ls4 19:35 Nutritional screening: No deficits noted. Tuberculosis screening: No symptoms or risk ls4 factors identified. Fall Risk None identified. Assessment: 19:30 General: Appears distressed, uncomfortable, ill, Behavior is fussy, restless. Pain: ls4 Denies pain. Neuro: Level of Consciousness is awake, obeys commands, Oriented to person, Qa Tester are equal bilaterally Moves all extremities. Cardiovascular: Capillary refill < 3 seconds Patient's skin is warm and dry. Respiratory: Airway is patent Respiratory effort is even, unlabored, Respiratory pattern is regular, Breath sounds are clear bilaterally. GI: Abdomen is round distended, Bowel sounds hyperactive in right upper quadrant, left upper quadrant, right lower quadrant and left lower quadrant Abd is non tender X 4 quads. : No deficits noted. Derm: Skin is jaundiced, Skin temperature is warm. 20:30 Reassessment: No changes from previously documented assessment. Patient and/or family ls4 updated on plan of care and expected duration. Pain level reassessed. Patient is alert, oriented x 3, equal unlabored respirations, skin warm/dry/pink. 21:30 Reassessment: No changes from previously documented assessment. Patient and/or family ls4 updated on plan of care and expected duration. Pain level reassessed. Patient is alert, oriented x 3, equal unlabored respirations, skin warm/dry/pink. 22:30 Reassessment: No changes from previously documented assessment. Patient and/or family ls4 updated on plan of care and expected duration. Pain level reassessed. Patient is alert, oriented x 3, equal unlabored respirations, skin warm/dry/pink. 07/02 00:00 Reassessment: No changes from previously documented assessment. Patient and/or family ls4 updated on plan of care and expected duration. Pain level reassessed. Patient is alert, oriented x 3, equal unlabored respirations, skin warm/dry/pink. 00:08 Reassessment: FFP BEGAN AT 2330 AND COMPLETED AT 0008. PT TOLERATED WELL. SEE FLOW ls4 SHEET FOR VITALS. 01:00 Reassessment: No changes from previously documented assessment. Patient and/or family ls4 updated on plan of care and expected duration. Pain level reassessed. Patient is alert, oriented x 3, equal unlabored respirations, skin warm/dry/pink. 01:58 Reassessment: SECOND UNIT OF FFP ARRIVED AND HANDED OFF TO [facility] TO ls4 ADMINISTER EN ROUTE TO [facility]. Vital Signs: 07/01 19:35 BP 151 / 85; Pulse 110; Resp 14; Temp 99.0; Pulse Ox 99% on R/A; ls4 ED Course: 19:28 Patient arrived in ED. ls4 19:31 Ralph Dela Cruz MD is Attending Physician. [facility] 19:31 Triage completed. ls4 19:35 Patient has correct armband on for positive identification. Bed in low position. Call ls4 light in reach. Side rails up X 1. cardiac monitor technician on. Pulse ox on. NIBP on. Warm blanket given. 19:35 Arm band placed on right wrist. EKG completed in triage. Results shown to MD. Urine ls4 obtained. 19:35 No provider procedures requiring assistance completed. Inserted saline lock: 18 gauge ls4 in left antecubital area, using aseptic technique. Blood collected. Patient maintains SpO2 saturation greater than 95% on room air. 20:07 Chest Single View XRAY In Process Unspecified. EDMS 20:22 Cristiane Burden, RN is Primary Nurse. ls4 21:00 Inserted saline lock: 20 gauge in right forearm, using aseptic technique. ls4 21:54 CT Head Brain wo Cont In Process Unspecified. EDMS 22:53 Urine Culture Sent. ls4 07/02 00:53 Patient transferred, IV remains in place. intact. ls4 19:18 called [facility] spoke to charge nurse at 25 [address] to let her know the patient mw2 left his wallet and it is with our security. She informed me she will let the patient and his ex know. Administered Medications: 07/01 20:15 Drug: Thiamine 100 mg Route: IV; Rate: bolus; Site: left antecubital; ls4 23:18 Follow up: Response: No adverse reaction ls4 20:35 Drug: Banana Bag - (NS 0.9% 1000 ml, foLIC Acid 1 mg, Thiamine 100 mg, Multivitamin 1 ls4 amp) Route: IV; Rate: 125 ml/hr; Site: left antecubital; 23:20 Follow up: IV Status: Infusion continued upon transfer ls4 20:35 Drug: ProTONIX 40 mg Route: IVP; Site: left antecubital; ls4 21:00 Follow up: Response: No adverse reaction ls4 20:35 Drug: Lactulose 30 grams Volume: 45 ml; Route: PO; ls4 21:00 Follow up: Response: No adverse reaction ls4 20:53 Drug: ProTONIX 40 mg Route: IVP; Site: left antecubital; ls4 21:07 Follow up: Response: No adverse reaction ls4 20:53 Drug: NS 0.9% with KCl 20 mEq/L 1000 ml Route: IV; Rate: 125 ml/hr; Site: left ls4 antecubital; 23:16 Follow up: IV Status: Infusion continued upon transfer; IV Intake: 300ml ls4 22:10 Drug: Potassium Chloride 20 mEq Route: IV; Rate: per protocol; Site: left antecubital; ls4 23:10 Follow up: IV Status: Completed infusion; IV Intake: 100ml ls4 22:10 Drug: Rocephin 1 grams Route: IV; Rate: per protocol; Site: right forearm; ls4 22:30 Follow up: Response: No adverse reaction; IV Status: Completed infusion; IV Intake: [id number] 22:10 Drug: Rocephin 1 grams Route: IV; Rate: per protocol; Site: right forearm; ls4 22:20 Follow up: Response: No adverse reaction; IV Status: Completed infusion; IV Intake: [id number] 22:20 Drug: Vitamin K1 10 mg Route: Sub-Q; Site: left lower abdomen; ls4 22:30 Follow up: Response: No adverse reaction ls4 23:10 Drug: Potassium Chloride 20 mEq Route: IV; Rate: per protocol; Site: left antecubital; ls4 07/02 00:53 Follow up: IV Status: Completed infusion; IV Intake: 100ml ls4 Intake: 07/01 22:20 IV: 10ml; Total: 10ml. ls4 22:30 IV: 10ml; Total: 20ml. ls4 23:10 IV: 100ml; Total: 120ml. ls4 23:16 IV: 300ml; Total: 420ml. ls4 07/02 00:53 IV: 100ml; Total: 520ml. ls4 Outcome: 07/01 21:46 ER care complete, transfer ordered by MD. priest 07/02 00:53 Patient left the ED. ls4 00:53 Condition: stable ls4 00:53 Transferred by ground EMS Transfer form completed. X-rays sent w/ patient. [place] [facility] [place] Discharge instructions given to patient, Instructed on the need for transfer. 13:53 Condition: pt's wallet was found in pod 1 nursing station, contents verified with ROSS Dyer, placed in secure bag and sent to security, pt has $332.00 in henley and KYLIE card and various insurance/prescription cards Signatures: Dispatcher [employer] EDRalph Hooker MD MD cha Williams, Irene, RN RN Lorenzo Thomas mw2 Cristiane Burden, RN RN ls4 Corrections: (The following items were deleted from the chart) 01:55 02/ 18:30 Reassessment: No changes from previously documented assessment. Patient ls4 and/or family updated on plan of care and expected duration. Pain level reassessed. Patient is alert, oriented x 3, equal unlabored respirations, skin warm/dry/pink. ls4
--- NOTE | 2019-07-01 21:47 | EDPHYS ---
Physician Documentation [facility] Name: Wesley Taylor Age: 53 yrs Sex: Male : 1965 Arrival Date: 07/01/2019 Time: 19:28 Bed 28 Private MD: ED Physician Ralph Dela Cruz HPI: 07/01 20:07 This 53 yrs old Male presents to ER via Law Enforcement with complaints of cem Altered Mental Status. 20:07 The patient presents with confusion, decreased mental status, trouble concentrating. cem Onset: The symptoms/episode began/occurred 2 day(s) ago. Possible causes: drug use, alcohol, head injury, sepsis. Associated signs and symptoms: Pertinent positives: ataxia, lightheadedness. Patient's baseline: Neuro: alert and fully oriented. The patient has experienced similar episodes in the past, multiple times. Historical: - Allergies: 19:33 No Known Allergies; ls4 - PMHx: 19:33 Alcoholism; Cirrhosis; esophageal varices; GI Bleed; ls4 - PSHx: 19:33 paracentesis; ls4 - Immunization history:: Adult Immunizations unknown. - Coronavirus screen:: The patient has NOT traveled to [place] in the past 14 days. Proceed with normal triage process as indicated. - Social history:: Smoking status: unknown Patient uses alcohol, on a daily basis. patient/guardian reports chronic longstanding heavy alcohol consumption. - Family history:: not pertinent. - Ebola Screening: : No symptoms or risks identified at this time. ROS: 20:07 Constitutional: Negative for fever, chills, and weight loss, Eyes: Negative for injury, cem pain, redness, and discharge, ENT: Negative for injury, pain, and discharge, Neck: Negative for injury, pain, and swelling, Cardiovascular: Negative for chest pain, palpitations, and edema, Respiratory: Negative for shortness of breath, cough, wheezing, and pleuritic chest pain, Back: Negative for injury and pain, : Negative for injury, bleeding, discharge, and swelling, MS/Extremity: Negative for injury and deformity, Skin: Negative for injury, rash, and discoloration, Neuro: Negative for headache, weakness, numbness, tingling, and seizure, Psych: Negative for depression, anxiety, suicide ideation, homicidal ideation, and hallucinations, Allergy/Immunology: Negative for hives, rash, and allergies, Endocrine: Negative for neck swelling, polydipsia, polyuria, polyphagia, and marked weight changes. 20:07 Abdomen/GI: 20:07 Neuro: Positive for altered mental status, dizziness, gait disturbance, weakness. Exam: 20:07 Chest/axilla: Normal chest wall appearance and motion. Nontender with no deformity. cem No lesions are appreciated. Back: No spinal tenderness. No costovertebral tenderness. Full range of motion. 20:07 Eyes: Conjunctiva: pale, Sclera: icterus. 20:07 Cardiovascular: Rate: normal, Rhythm: regular, Pulses: Pulses are 4+ in bilateral radial, brachial, femoral, popliteal, posterior tibial and and dorsalis pedis arteries.. Heart sounds: normal, Edema: 4+ edema to level of left midcalf, left ankle, left foot, right midcalf, right ankle and right foot, JVD: is not appreciated. 20:07 Abdomen/GI: Inspection: distension, Bowel sounds: normal, Palpation: nontender, Liver: no appreciated palpable abnormalities, Hernia: not appreciated. 20:18 Abdomen/GI: Rectal exam: Stool: guaiac positive, trace,m no melena, hemorrhoid(s), are cem not appreciated, mass, is not appreciated, swelling, is not appreciated, tenderness, is not appreciated, fecal impaction, is not appreciated, the exam is chaperoned by the nurse. Vital Signs: 19:35 BP 151 / 85; Pulse 110; Resp 14; Temp 99.0; Pulse Ox 99% on R/A; ls4 MDM: 19:31 Patient medically screened. [facility] 20:10 Data reviewed: vital signs, nurses notes, lab test result(s), EKG, radiologic studies, [facility] CT scan, plain films. 07/01 19:36 Order name: T\T\S [facility] 07/01 19:36 Order name: Amylase, Serum; Complete Time: 21:26 [facility] 07/01 19:36 Order name: Basic Metabolic Panel; Complete Time: 21:26 [facility] 07/01 19:36 Order name: CBC with Diff [facility] 07/01 19:36 Order name: Ckmb; Complete Time: 21:26 [facility] 07/01 19:36 Order name: CPK; Complete Time: 21:26 [facility] 07/01 19:36 Order name: LFT's; Complete Time: 21:26 [facility] 07/01 19:36 Order name: Lipase; Complete Time: 21:26 [facility] 07/01 19:36 Order name: Procalcitonin; Complete Time: 21:26 [facility] 07/01 19:36 Order name: Protime (+inr) [facility] 07/01 19:36 Order name: Ptt, Activated [facility] 07/01 19:36 Order name: Urine Microscopic Only; Complete Time: 21:26 [facility] 07/01 19:37 Order name: AMMONIA; Complete Time: 21: [facility] 07/01 19:36 Order name: Chest Single View XRAY; Complete Time: 21: [facility] 07/01 19:54 Order name: CBC with Automated Diff [facility] 07/01 20:04 Order name: Acetaminophen; Complete Time: 21:26 [facility] 07/01 20:04 Order name: ETOH Level; Complete Time: 21:26 [facility] 07/01 20:04 Order name: Salicylate; Complete Time: 21: [facility] 07/01 20:04 Order name: Urine Drug Screen; Complete Time: 21: [facility] 07/01 20:27 Order name: Manual Differential; Complete Time: 21: [facility] 07/01 20:40 Order name: Phosphorus; Complete Time: 21: [facility] 07/01 21:26 Order name: Urine Culture [facility] 07/01 21:30 Order name: CT Head Brain wo Cont [facility] 07/01 22:04 Order name: Fresh Frozen Plasma [facility] 07/01 19:36 Order name: Cardiac monitoring [facility] 07/01 19:36 Order name: EKG - Nurse/Tech [facility] 07/01 19:36 Order name: IV Saline Lock - Large Bore [facility] 07/01 19:36 Order name: Labs collected and sent [facility] 07/01 19:36 Order name: O2 Per Protocol [facility] 07/01 19:36 Order name: O2 Sat Monitoring [facility] 07/01 19:36 Order name: Urine Dipstick-Ancillary (obtain specimen) [facility] 07/01 20:04 Order name: EKG; Complete Time: 20:06 [facility] 07/01 20:04 Order name: IV Saline Lock [facility] 07/01 20:17 Order name: Transfuse; Complete Time: 23:17 [facility] 07/01 20:18 Order name: IV Saline Lock - Large Bore; Complete Time: 20:53 cem Administered Medications: 20:15 Drug: Thiamine 100 mg Route: IV; Rate: bolus; Site: left antecubital; ls4 23:18 Follow up: Response: No adverse reaction ls4 20:35 Drug: Banana Bag - (NS 0.9% 1000 ml, foLIC Acid 1 mg, Thiamine 100 mg, Multivitamin 1 ls4 amp) Route: IV; Rate: 125 ml/hr; Site: left antecubital; 23:20 Follow up: IV Status: Infusion continued upon transfer ls4 20:35 Drug: ProTONIX 40 mg Route: IVP; Site: left antecubital; ls4 21:00 Follow up: Response: No adverse reaction ls4 20:35 Drug: Lactulose 30 grams Volume: 45 ml; Route: PO; ls4 21:00 Follow up: Response: No adverse reaction ls4 20:53 Drug: ProTONIX 40 mg Route: IVP; Site: left antecubital; ls4 21:07 Follow up: Response: No adverse reaction ls4 20:53 Drug: NS 0.9% with KCl 20 mEq/L 1000 ml Route: IV; Rate: 125 ml/hr; Site: left ls4 antecubital; 23:16 Follow up: IV Status: Infusion continued upon transfer; IV Intake: 300ml ls4 22:10 Drug: Potassium Chloride 20 mEq Route: IV; Rate: per protocol; Site: left antecubital; ls4 23:10 Follow up: IV Status: Completed infusion; IV Intake: 100ml ls4 22:10 Drug: Rocephin 1 grams Route: IV; Rate: per protocol; Site: right forearm; ls4 22:30 Follow up: Response: No adverse reaction; IV Status: Completed infusion; IV Intake: [id number] 22:10 Drug: Rocephin 1 grams Route: IV; Rate: per protocol; Site: right forearm; ls4 22:20 Follow up: Response: No adverse reaction; IV Status: Completed infusion; IV Intake: [id number] 22:20 Drug: Vitamin K1 10 mg Route: Sub-Q; Site: left lower abdomen; ls4 22:30 Follow up: Response: No adverse reaction ls4 23:10 Drug: Potassium Chloride 20 mEq Route: IV; Rate: per protocol; Site: left antecubital; ls4 07/02 00:53 Follow up: IV Status: Completed infusion; IV Intake: 100ml ls4 Disposition: 07/01/19 21:46 Transfer ordered to [facility]. Diagnosis are Encephalopathy, unspecified, Alcoholic cirrhosis of liver, Gastrointestinal hemorrhage, unspecified, Alcohol abuse, Hypokalemia. - Reason for transfer: Higher level of care. - [facility] - Condition is Fair. - Problem is new. - Symptoms have improved. Signatures: Dispatcher [employer] Ralph Crouch MD MD cha Stewart, Lisa, RN RN ls4 Corrections: (The following items were deleted from the chart) 00:53 07/01 21:46 07/01/2019 21:46 Transfer ordered to [facility]. ls4 Diagnosis is Encephalopathy, unspecified; Alcoholic cirrhosis of liver; Gastrointestinal hemorrhage, unspecified; Alcohol abuse; Hypokalemia. Reason for transfer: Higher level of care. [facility] Condition is Fair. Problem is new. Symptoms have improved. cem
[2019-07-01] MEDS ORDERED: VITAMIN K (ADULT) 10 MG/ML ONE (22:18)
[2019-07-01] MEDS ORDERED: KCL 20 MEQ/100 mL IVPB 40 MEQ/200 ML BAG IV ONE (22:19)
[2019-07-01] MEDS ORDERED: CEFTRIAXONE/SWI 1gm 2 GM/20 ML SYR ONE (22:19)
[2019-07-01] MEDS ORDERED: NS KCL 20MEQ 1,000 ML IV ONE (22:19)
[2019-07-01] MEDS ORDERED: NA CHLORIDE 0.9% 100 ML IV ONE (22:31)
--- NOTE | 2019-07-02 10:21 | EKG ---
Test Date: 2019-07-01 Test Time: 21:12:24 Lens Polisher: JACKY MEASUREMENT RESULTS: Intervals: Rate: 111 SD: QRSD: 102 QT: 484 QTc: 658 [place]: P: SD: QRS: 69 T: 47 INTERPRETIVE STATEMENTS: Poor data quality Sinus tachycardia Nonspecific ST abnormality Prolonged QT Abnormal ECG Compared to ECG 03/10/2019 13:49:34 Sinus rhythm no longer present ST (T wave) deviation still present Electronically Signed On 07-02-19 10:21:05 TIMBER INCISOR OPERATOR by Wally Mccloud
--- NOTE | 2019-07-02 11:52 | RAD REPORT ---
EXAM DESCRIPTION: Head Brain Wo Cont CLINICAL HISTORY: CONFUSED COMPARISON: 03/31/2019 TECHNIQUE: Contiguous axial CT images of the head were obtained. Coronal and sagittal reconstructions were created from the axial data. This exam was performed according to our departmental dose-optimization program, which includes autom ated exposure control, adjustment of the mA and/or kV according to patient size and/or use of iterati ve reconstruction technique. FINDINGS: There is no evidence of acute mass, mass effect, midline shift or hemorrhage. The ventricl es and extra-axial CSF spaces are unremarkable. The brain parenchyma appears normal for the patient's age. No acute abnormalities of the bones is seen. IMPRESSION: No acute intracranial abnormality. Electronically signed by: Renny Daugherty 07/01/2019 10:20 PM ANDROID SOFTWARE ENGINEER Due to temporary technical issues with the PACS/Fluency reporting system, reports are being signed by the in house radiologist as a courtesy to ensure prompt reporting. The interpreting radiologist is f ully responsible for the content of the report.
== END 2019-07-02 00:53 | disposition short-term general hospital (02) ==
LOC: ER 19:17
PROC: 30233K1 Transfusion of Nonautologous Frozen Plasma into Peripheral Vein, Percutaneous Approach (ICD-10-PCS; principal; 2019-07-02)
DX: G93.40 Encephalopathy, unspecified (principal); K70.30 Alcoholic cirrhosis of liver without ascites; K92.2 Gastrointestinal hemorrhage, unspecified; F10.20 Alcohol dependence, uncomplicated; E87.6 Hypokalemia
CPT/HCPCS: 93005; 87088; 85025; 87086; 80048; 36415; 80320; 82140; 82150; 86900; 86850; 82550; 80329 ×2; 84100; 85610; 86901; 80076; 80307 ×8; 85730; 81015; 82553; 83690; 86927; 84145; 70450; 71045; 36430; J3411; J3430; C9113; J0696; P9017 ×2; P9016; J7030 ×2; 87040